=== PATIENT | female | born 1950 | race African-American/Black ===

== ENCOUNTER 2017-07-28 11:20 | Inpatient (IN) | payer MEDICARE, MEDICAID ==
[~2017-07-28] VITALS: Ht 160 cm; Wt 125.7 kg
[~2017-07-28 11:20] MED LIST: ALBUTEROL SULF8.5 GM INH; DOXYCYCLINE HY100 M2 PO; FUROSEMIDE40 MG ORAL; GABAPENTIN300 MG ORAL; HYDROCORTISON28.4 G2 TP; HYDROCORTISONE25 GM TP; JANUVIA50 MG ORAL; LEVAQUIN750 MG ORAL; LIPITOR20 MG ORAL; LOSARTAN POTASS50 MG ORAL; METFORMIN HCL1000 M1 ORAL; NORCO 10/3251 EA ORAL; NORCO 5-325 TA1 EACH ORAL; OXYCODONE HCL15 M1 ORAL; PERMETHRIN60 GM TOPIC; PLAVIX75 MG ORAL; PRILOSEC20 MG ORAL; SILDENAFIL20 MG ORAL
[2017-07-28 12:10] VITALS: BP 130/80
[2017-07-28] MEDS ORDERED: Metoprolol 5mg/5ml Inj IVP ONE ×2 (12:45→13:15)
[2017-07-28 13:06] LABS: BASOPHILS % (AUTO) 1.2 % (0.0-2.0); EOSINOPHILS % (AUTO) 1.3 % (0.0-3.0); HEMOGLOBIN 13.8 G/DL (12.0-16.0); LYMPHOCYTES % (AUTO) 17.5 % (20.0-45.0); MEAN CORPUSCULAR VOLUME 85 FL (80-99); MONOCYTES % (AUTO) 6.2 % (1.0-10.0); NEUTROPHILS % (AUTO) 73.8 % (45.0-75.0); PLATELET COUNT 293 K/UL (150-450); RED CELL DISTRIBUTION WIDTH 15.8 % (11.6-14.8); WHITE BLOOD COUNT 8.1 K/UL (4.8-10.8)
[2017-07-28 13:25] LABS: ANION GAP 9 mmol/L (5-15); BLOOD UREA NITROGEN 33 mg/dL (7-18); CALCIUM 8.8 MG/DL (8.5-10.1); CARBON DIOXIDE 30 MMOL/L (21-32); CHLORIDE 104 MMOL/L (98-107); CREATININE 1.2 MG/DL (0.55-1.30); POTASSIUM 3.9 MMOL/L (3.5-5.1); SODIUM 143 MMOL/L (136-145)
--- NOTE | 2017-07-28 13:25 | Diagnostic Imaging Report ---
Indication: Shortness of breath Technique: One view of the chest Comparison: 06/07/2015 Findings: The heart is enlarged. The lungs pleural spaces are clear. The heart appears larger than on the previous study. No other significant change Impression: Cardiomegaly. No definite acute process
[2017-07-28 13:38] LABS: ALANINE AMINOTRANSFERASE 27 U/L (12-78); ALBUMIN 3.1 G/DL (3.4-5.0); ALBUMIN/GLOBULIN RATIO 0.9 (1.0-2.7); ALKALINE PHOSPHATASE 166 U/L (46-116); ASPARTATE AMINO TRANSFERASE 33 U/L (15-37); BILIRUBIN,TOTAL 0.9 MG/DL (0.2-1.0); CKMB 4.5 NG/ML (0.0-3.6); CREATINE KINASE 244 U/L (26-308)
--- NOTE | 2017-07-28 14:13 | Emergency Room Report ---
History of Present Illness General Chief Complaint: Dyspnea/Respdistress Source: Patient Present Illness HPI 66-year-old female presents to ED with increasing shortness of breath and swelling 3 days. History of CHF. States she is taking her medications but they are not helping. Denies any chest pain. Denies fevers or chills. Denies cough. No other aggravating relieving factors. Denies any other associated symptoms Allergies: Coded Allergies: ASPIRIN (Verified Allergy, Intermediate, Hives, 01/06/13) PENICILLINS (Verified Allergy, Intermediate, Hives, 01/06/13) Patient History Past Medical History: DM, CHF, COPD Past Surgical History: none Pertinent Family History: none Social History: Denies: smoking, alcohol use, drug use Now: No Immunizations: UTD Reviewed Nursing Documentation: PMH: Agreed; PSxH: Agreed Nursing Documentation-PMH Hx Cardiac Problems: Yes - CHF Hx Hypertension: Yes - pulmonary htn Hx Pacemaker: No Hx Asthma: No Hx COPD: Yes Hx Diabetes: Yes Hx Cancer: No Hx Dialysis: No Hx Neurological Problems: Yes - neuropathy Hx Seizures: No Hx Peripheral Neuropathy: Yes Review of Systems All Other Systems: negative except mentioned in HPI Physical Exam Vital Signs Date Time Temp Pulse Resp B/P (MAP) Pulse Ox O2 Delivery O2 Flow Rate FiO2 07/28/17 11:38 97.6 114 16 130/80 98 Room Air 97.5 Sp02 EP Interpretation: reviewed, normal General Appearance: alert, GCS 15, non-toxic, obese Head: normocephalic, atraumatic Eyes: bilateral eye normal inspection, bilateral eye PERRL ENT: hearing grossly normal, normal pharynx, no angioedema, normal voice Neck: full range of motion, supple/symm/no masses Respiratory: chest non-tender, lungs clear, normal breath sounds, speaking full sentences Cardiovascular #1: no edema, tachycardia Cardiovascular #2: 2+ carotid (R), 2+ carotid (L), 2+ radial (R), 2+ radial (L) , 2+ dorsalis pedis (R), 2+ dorsalis pedis (L) Gastrointestinal: normal bowel sounds, non tender, soft, non-distended, no guarding, no rebound Rectal: deferred Genitourinary: normal inspection, no CVA tenderness Musculoskeletal: swelling - 2+ pitting edema b/l LEs Neurologic: alert, oriented x3, responsive, motor strength/tone normal, sensory intact, speech normal Psychiatric: judgement/insight normal, memory normal, mood/affect normal, no suicidal/homicidal ideation Reflexes: 3+ bicep (R), 3+ bicep (L), 3+ tricep (R), 3+ tricep (L), 3+ knee (R) , 3+ knee (L) Skin: normal color, no rash, warm/dry, well hydrated Lymphatic: no adenopathy Procedures Critical Care Time Critical Care Time i. I feel this is a highly complex case requiring extensive working including EKG/Rhythm strip, Xray/CT/US, Blood/urine lab work, repeat exams while in ED, and administration of strong opiates/narcotics for pain control, admission to hospital or close patient follow up. Total time: 30 min bedside evaluation and treatment excludes procedures (EKG). Reason for critical care: A. fib with RVR Possible complications: hypotension, hypertension, VT, shock, arrhythmias, metabolic acidosis, end organ damage, respiratory failure. Interventions: labs, ekg, cxr. lopressor x 2. lasix Course: patient presenting with sob. rhythm shows afib wtih RVR. given loressor x 2 with rate controlled.BNP elevated with pulmonary congestion . given lasix Consultations: nursing staff, EMS, family Performed by: Dr Wilson Tolerated well condition = serious j. because of unstable vital signs this patient had a condition that could potentially threaten life or limb. I feel this is a critical patient who required my full attention while patient was considered critical. Total Critical Care Time excluding procedures was greater than 35 minutes Medical Decision Making Diagnostic Impression: Primary Impression: CHF exacerbation Qualified Codes: I50.9 - Heart failure, unspecified Additional Impression: Atrial fibrillation with rapid ventricular response ER Course Hospital Course 66-year-old female presents ED complaining of shortness of breath, leg swelling Differential diagnoses include: VT/unstable angina, contusion, muscle strain, PTX, rib fracture Clinical course Patient placed on stretcher. on quality assurance monitor chassis. After initial history and physical I ordered labs, EKG, chest x-ray labs reviewed- no leukocytosis, hemoglobin/hematocrit stable, creatinine elevated, troponins 0.033, BNP > 1000 Chest x-ray- pulmonary congestion eKG - atrial fibrillation with RVR Given Lopressor 2 with rate controlled. Placed on oxygen. Lasix given. Case discussed with Dr. Benjamin and he agreed to accept the patient to his service for further care and support I. I feel this is a highly complex case requiring extensive working including EKG/Rhythm strip, Xray/CT/US, Blood/urine lab work, repeat exams while in ED, and administration of strong opiates/narcotics for pain control, admission to hospital or close patient follow up. Diagnosis - CHF exacerbation, atrial fibrillation with RVR admitted to telemetry in serious condition Labs Test 07/28/17 12:51 White Blood Count 8.1 K/UL (4.8-10.8) Red Blood Count 5.50 M/UL (4.20-5.40) Hemoglobin 13.8 G/DL (12.0-16.0) Hematocrit 47.0 % (37.0-47.0) Mean Corpuscular Volume 85 FL (80-99) Mean Corpuscular Hemoglobin 25.1 PG (27.0-31.0) Mean Corpuscular Hemoglobin Concent 29.4 G/DL (32.0-36.0) Red Cell Distribution Width 15.8 % (11.6-14.8) Platelet Count 293 K/UL (150-450) Mean Platelet Volume 7.3 FL (6.5-10.1) Neutrophils (%) (Auto) 73.8 % (45.0-75.0) Lymphocytes (%) (Auto) 17.5 % (20.0-45.0) Monocytes (%) (Auto) 6.2 % (1.0-10.0) Eosinophils (%) (Auto) 1.3 % (0.0-3.0) Basophils (%) (Auto) 1.2 % (0.0-2.0) Sodium Level 143 MMOL/L (136-145) Potassium Level 3.9 MMOL/L (3.5-5.1) Chloride Level 104 MMOL/L (98-107) Carbon Dioxide Level 30 MMOL/L (21-32) Anion Gap 9 mmol/L (5-15) Blood Urea Nitrogen 33 mg/dL (7-18) Creatinine 1.2 MG/DL (0.55-1.30) Estimat Glomerular Filtration Rate 54.9 mL/min (>60) Glucose Level 196 MG/DL (74-106) Calcium Level 8.8 MG/DL (8.5-10.1) Total Bilirubin 0.9 MG/DL (0.2-1.0) Aspartate Amino Transf (AST/SGOT) 33 U/L (15-37) Alanine Aminotransferase (ALT/SGPT) 27 U/L (12-78) Alkaline Phosphatase 166 U/L (46-116) Total Creatine Kinase 244 U/L (26-308) Creatine Kinase MB 4.5 NG/ML (0.0-3.6) Creatine Kinase MB Relative Index 1.8 Troponin I 0.033 ng/mL (0.000-0.056) Pro-B-Type Natriuretic Peptide 1065 pg/mL (0-125) Total Protein 6.7 G/DL (6.4-8.2) Albumin 3.1 G/DL (3.4-5.0) Globulin 3.6 g/dL Albumin/Globulin Ratio 0.9 (1.0-2.7) EKG Diagnostic Results Rate: tachycardiac Rhythm: other - afib with RVR ST Segments: no acute changes ASA given to the pt in ED: No - allergy to asa Rhythm Strip Diag. Results EP Interpretation: yes Rhythm: no PVC's, no ectopy Chest X-Ray Diagnostic Results Chest X-Ray Diagnostic Results : Chest X-Ray Ordered: Yes # of Views/Limited/Complete: 1 View Indication: Shortness of Breath EP Interpretation: Yes Interpretation: no pneumothorax, other - cardiomegaly. bilateral interstitial congestion Impression: Other - chf Electronically Signed by: Electronically signed by Cortez Wilson MD Last Vital Signs Date Time Temp Pulse Resp B/P (MAP) Pulse Ox O2 Delivery O2 Flow Rate FiO2 07/28/17 13:45 114 137/72 07/28/17 11:38 97.6 16 98 Room Air 97.5 Status: improved Disposition: ADMITTED INPATIENT Condition: Serious Referrals: NON PHYSICIAN (PCP) Cortez Wilson MD Jul 28, 2017 14:13
[2017-07-28 14:25] VITALS: BP 146/87
[2017-07-28] MEDS ORDERED: Miralax 17gm pkt ORAL PRN (15:45)
[2017-07-28] MEDS ORDERED: Albuterol/Ipratropium 3ml neb HHN PRN (15:45)
[2017-07-28 16:15] VITALS: BP 136/88
[2017-07-28 16:29] LABS: APPEARANCE,URINE CLEAR; BILIRUBIN, URINE NEGATIVE (NEGATIVE); GLUCOSE, URINE (UA) NEGATIVE (NEGATIVE); KETONES,URINE NEGATIVE (NEGATIVE); LEUKOCYTE ESTERASE ,URINE 2+ (NEGATIVE); NITRITE,URINE NEGATIVE (NEGATIVE); PH,URINE 5 (4.5-8.0); PROTEIN,URINE 3+ (NEGATIVE); UROBILINOGEN,URINE NORMAL MG/DL (0.0-1.0)
[2017-07-28] MEDS ORDERED: NovoLOG Insulin Flexpen SUBQ SCH (16:30)
[2017-07-28 16:35] LABS: COLOR,URINE YELLOW
--- NOTE | 2017-07-28 17:38 | Cardiology Report ---
APPROVED REPORT EXAM: Two-dimensional and M-mode echocardiogram with Doppler and color Doppler. INDICATION Left Ventricular Function M-Mode DIMENSIONS IVSd1.4 (0.7-1.1cm)Left Atrium (MM)3.9 (1.6-4.0cm) LVDd3.8 (3.5-5.6cm)Aortic Root2.2 (2.0-3.7cm) PWd1.6 (0.7-1.1cm)Aortic Cusp Exc.1.9 (1.5-2.0cm) LVDs3.7 (2.5-4.0cm) PWs1.5 cm Global left ventricular hypokinesis. Diastolic flattening of VS suggestive of RV volume overload Normal left ventricular chamber size. Left ventricular ejection fraction estimated to be 40%. Mild left ventricular hypertrophy. No evidence of pericardial effusion. Left atrial chamber size is within normal limits. Severe right atrial and right ventricular enlargement. Mild focal aortic valve sclerosis with adequate cusp excursion. Thickened mitral valve leaflets with normal excursion. Mild mitral annulus and aortic root calcification. Normal pulmonic valve structure. Normal tricuspid valve structure. IVC dilated at 3.2 cm without physiological collapse, estimated RAP is 20 mmHg. Atrial setpum shifted to the left due to increased RA pressure A color flow and spectral Doppler study was performed and revealed: Mild aortic insufficiency. Mild mitral regurgitation. Mitral inflow velocities indicates possible pseudo normalization pattern implying significant left ventricular diastolic dysfunction (Grade II). Severe tricuspid regurgitation. Tricuspid systolic velocities suggests peak right ventricular systolic pressure of 62-67 mmHg, consistent with severe pulmonary hypertension. Trace pulmonic regurgitation present.
--- NOTE | 2017-07-28 19:30 | History and Physical Report ---
DATE OF ADMISSION: 07/28/2017 TIME: 3 p.m. CONSULTANTS: 1. Jsutice Erickson M.D. 2. Jesús Farrell M.D. CHIEF COMPLAINT: CHF, short of breath, atrial fibrillation, edema, elevated troponin. BRIEF HISTORY: This is a 66-year-old female, who lives at home, presented with above-mentioned diagnoses. Currently in the ER, slight short of breath, O2 NC in place, awaiting admission. PAST MEDICAL HISTORY: CHF, short of breath, atrial fibrillation, edema, elevated troponin, obesity, hypertension, and diabetes. PAST SURGICAL HISTORY: None. MEDICATIONS: Lipitor, Plavix, Januvia, Lasix, heparin, Neurontin, NovoLog, [place], dextrose, Restoril, Zofran, and Tylenol. ALLERGIES: Penicillin and aspirin. SOCIAL HISTORY: No smoking. No alcohol. No intravenous drug use. FAMILY HISTORY: Noncontributory. REVIEW OF SYSTEMS: No chest pain. Slight short of breath. No nausea, vomiting, or diarrhea. PHYSICAL EXAMINATION: GENERAL: Lethargic in bed, oriented x2, in no acute distress. VITAL SIGNS: Temperature 97 degrees, pulse 114, respirations 16, and blood pressure 137/72. CARDIOVASCULAR: No murmur. LUNGS: Poor air exchange. ABDOMEN: Bowel sounds distant. EXTREMITIES: No cyanosis or clubbing. There is 1+ edema. NEUROLOGIC: The patient moves all extremities, but slightly weak. LABORATORY AND DIAGNOSTIC DATA: CBC is normal. BMP show BUN 33 and glucose 196, otherwise BMP is normal. . Troponin elevated at 0.033. BNP is 1065. Albumin 3.1. ASSESSMENT: 1. Shortness of breath. 2. CHF. 3. Atrial fibrillation. 4. Edema. 5. Elevated troponin. 6. Obesity. 7. Hypertension. 8. Diabetes. PLAN: O2 and pulmonary treatment. OT/PT. Dietary evaluation. Pain control. Blood sugar and blood pressure control. Resume home medications. Diuresis per Cardiology and Pulmonary followup. We will continue to follow this patient medically. Pedro Benjamin D.O. DR: ZO JOB#: [id number] CC:
[2017-07-28 20:30] VITALS: BP 132/78
[2017-07-28] MEDS ORDERED: Atorvastatin 20mg tab ORAL SCH (21:00)
[2017-07-28] MEDS: NovoLOG Insulin Flexpen SUBQ SCH (21:00)
[2017-07-28] MEDS: Heparin 5000 units/ml inj SUBQ SCH (22:09)
[2017-07-28] MEDS: HYDROcodone/Acetamin 10/325 tab ORAL PRN (22:22)
--- NOTE | 2017-07-28 23:01 | Cardiology Progress Note ---
Assessment/Plan Assessment/Plan The patient is seen and examined, full consult note will be dictated shortly. Objective Last 24 Hour Vital Signs Date Time Temp Pulse Resp B/P (MAP) Pulse Ox O2 Delivery O2 Flow Rate FiO2 07/28/17 20:36 148/92 07/28/17 16:15 97.5 16 136/88 98 Room Air 97.5 07/28/17 14:25 97.5 16 146/87 98 Room Air 97.5 07/28/17 13:45 114 137/72 07/28/17 12:39 116 133/102 07/28/17 12:10 114 16 Room Air 07/28/17 12:10 97.5 16 130/80 98 Room Air 97.5 07/28/17 11:38 97.6 114 16 130/80 98 Room Air 97.5 Laboratory Tests Test 07/28/17 12:51 07/28/17 16:09 White Blood Count 8.1 K/UL (4.8-10.8) Red Blood Count 5.50 M/UL (4.20-5.40) H Hemoglobin 13.8 G/DL (12.0-16.0) Hematocrit 47.0 % (37.0-47.0) Mean Corpuscular Volume 85 FL (80-99) Mean Corpuscular Hemoglobin 25.1 PG (27.0-31.0) L Mean Corpuscular Hemoglobin Concent 29.4 G/DL (32.0-36.0) L Red Cell Distribution Width 15.8 % (11.6-14.8) H Platelet Count 293 K/UL (150-450) Mean Platelet Volume 7.3 FL (6.5-10.1) Neutrophils (%) (Auto) 73.8 % (45.0-75.0) Lymphocytes (%) (Auto) 17.5 % (20.0-45.0) L Monocytes (%) (Auto) 6.2 % (1.0-10.0) Eosinophils (%) (Auto) 1.3 % (0.0-3.0) Basophils (%) (Auto) 1.2 % (0.0-2.0) Sodium Level 143 MMOL/L (136-145) Potassium Level 3.9 MMOL/L (3.5-5.1) Chloride Level 104 MMOL/L (98-107) Carbon Dioxide Level 30 MMOL/L (21-32) Anion Gap 9 mmol/L (5-15) Blood Urea Nitrogen 33 mg/dL (7-18) H Creatinine 1.2 MG/DL (0.55-1.30) Estimat Glomerular Filtration Rate 54.9 mL/min (>60) Glucose Level 196 MG/DL (74-106) H Calcium Level 8.8 MG/DL (8.5-10.1) Total Bilirubin 0.9 MG/DL (0.2-1.0) Aspartate Amino Transf (AST/SGOT) 33 U/L (15-37) Alanine Aminotransferase (ALT/SGPT) 27 U/L (12-78) Alkaline Phosphatase 166 U/L (46-116) H Total Creatine Kinase 244 U/L (26-308) Creatine Kinase MB 4.5 NG/ML (0.0-3.6) H Creatine Kinase MB Relative Index 1.8 Troponin I 0.033 ng/mL (0.000-0.056) Pro-B-Type Natriuretic Peptide 1065 pg/mL (0-125) H Total Protein 6.7 G/DL (6.4-8.2) Albumin 3.1 G/DL (3.4-5.0) L Globulin 3.6 g/dL Albumin/Globulin Ratio 0.9 (1.0-2.7) L Urine Color Yellow Urine Appearance Clear Urine pH 5 (4.5-8.0) Urine Specific [place] 1.015 (1.005-1.035) Urine Protein 3+ (NEGATIVE) H Urine Glucose (UA) Negative (NEGATIVE) Urine Ketones Negative (NEGATIVE) Urine Occult Blood 5+ (NEGATIVE) H Urine Nitrite Negative (NEGATIVE) Urine Bilirubin Negative (NEGATIVE) Urine Urobilinogen Normal MG/DL (0.0-1.0) Urine Leukocyte Esterase 2+ (NEGATIVE) H Urine RBC 5-10 /HPF (0 - 2) H Urine WBC 2-4 /HPF (0 - 2) Urine Squamous Epithelial Cells Few /LPF (NONE/OCC) Urine Amorphous Sediment Few /LPF (NONE) H Urine Bacteria Few /HPF (NONE) NBA HERRERA Jul 28, 2017 23:01
[2017-07-28] MEDS: Eliquis 2.5mg tablet ORAL SCH (23:45)
[2017-07-29] VITALS: BP 133/93
[2017-07-29] MEDS ORDERED: Digoxin 0.5mg/2ml Inj IVP ONE
--- NOTE | 2017-07-29 01:16 | Consultation ---
DATE OF CONSULTATION: 07/28/2017 Cardiology consultation CONSULTING PHYSICIAN: Justice Erickson M.D. REFERRING PHYSICIAN: Pedro Benjamin D.O. REASON FOR CONSULTATION: Management of shortness of breath. HISTORY OF PRESENT ILLNESS: The patient is a very unfortunate 66-year-old female who presents to the hospital with increasing shortness of breath, swelling of the lower extremity for about three days. Her cardiac history is significant for history of right heart failure with anasarca, apparently has not seen her cutter tender for quite a while due to her immobility and morbid obesity. She has a history of heart failure with preserved ejection fraction as well. At the time of arrival to the hospital, a 12-lead electrocardiogram was significant for atrial flutter with rapid ventricular response. In previous admission to this hospital in May 2015, she was in normal sinus rhythm. At the time of arrival to the hospital, blood pressure was 130/80, heart rate was 114. Chest x-ray showed cardiomegaly with no significant pulmonary edema or congestive heart failure. She was admitted to telemetry for further evaluation and management. Cardiology consultation was made at request of Dr. Benjamin for assessment of this condition. PAST MEDICAL HISTORY: Significant for 1. History of right heart failure with anasarca. 2. History of severe pulmonary hypertension. 3. History of diabetes mellitus. 4. History of acute heart failure with preserved EF. 5. History of COPD. 6. History of polysubstance abuse in the past. 7. History of neuropathy. 8. History of CVA. PAST SURGICAL HISTORY: Some gynecological surgery done at [facility], pelvic mass. ALLERGIES: Aspirin and penicillin. SOCIAL HISTORY: Prior history of drug use. Recently quit smoking cigarettes. Denies any alcohol use. FAMILY HISTORY: No premature coronary artery disease in first-degree relatives. MEDICATIONS: List of medications at home including Lipitor 20 mg p.o. daily, clopidogrel 75 mg p.o. daily, furosemide 40 mg p.o. twice daily, gabapentin 300 mg twice daily, hydrocodone-acetaminophen 10/325 one tablet q.4 h. p.r.n. pain, losartan 50 mg p.o. daily, metformin 1000 mg p.o. twice daily, Prilosec 20 mg p.o. daily, , Januvia 50 mg p.o. daily. REVIEW OF SYSTEMS: HEENT: Denies any headache, diplopia, or blurred vision. CONSTITUTIONAL: Complains of generalized weakness, immobilization due to morbid obesity but no fever, chills, night sweats. CARDIOVASCULAR: Has four pillow orthopnea, paroxysmal nocturnal dyspnea, bilateral lower extremity edema. Denies any palpitations or syncope, chest pain, but she has shortness of breath with ordinary activities. PULMONARY: Denies any cough, wheezing, or hemoptysis. GASTROINTESTINAL: Complaining of abdominal pain but no nausea, vomiting, diarrhea, constipation. GENITOURINARY: Denies any hematuria, dysuria, incontinence. NEUROLOGY: Denies any motor dysfunction, sensory deficit, or altered speech. PHYSICAL EXAMINATION: VITAL SIGNS: Blood pressure at time of arrival to the hospital was 130/80, pulse of 114, respirations 16, temperature 97.6 degrees Fahrenheit, and O2 saturation 98% on room air. GENERAL: The patient is a very unfortunate 66-year-old female, in [id number] respiratory distress. HEENT: Atraumatic and normocephalic. Anicteric. Pupils are equal, round, and reactive to light and accommodation. Extraocular muscles intact. NECK: JVP is elevated at about 15 cm. No carotid bruits. Carotid upstrokes 2+ bilaterally. CARDIOVASCULAR: Normal S1 and S2. Irregularly irregular rhythm. Tachycardic. Positive S3 and S4 gallop. LUNGS: Diminished breath sounds in both bases. ABDOMEN: Distended and nontender. Positive bowel sounds. No hepatosplenomegaly EXTREMITIES: There is 3 to 4+ bilateral edema. LABORATORY FINDINGS: WBC 8.1, hemoglobin 13.8, hematocrit 47.0, platelet count 293. Sodium 143, potassium 3.9, chloride 104, bicarbonate 30, BUN of 33, creatinine 1.2, glucose 196. Calcium is 8.8. Troponin I is 0.033. ProBNP was 1065. A 2D echocardiography was reviewed and essentially shows small left ventricular size however there is dyskinetic septal wall movements with hypokinesia of the rest of left ventricular regional wall, LVEF approximately 30%, mild left ventricular hypertrophy. There is dilated right ventricle with moderate to severely decreased right ventricular function, also evidence of right ventricular pressure and volume overload. Torrential severe tricuspid regurgitation, right ventricular systolic pressure measured at 18 mmHg given right atrial pressure of approximately 20 mmHg, severe right atrial enlargement, mild aortic regurgitation, mild mitral regurgitation, diastolic data could not be assessed in view of underlying atrial flutter. Chest x-ray showed cardiomegaly with no pulmonary edema. A 12-lead electrocardiogram was significant for atrial flutter with RVR rate of 115, single VPC. ASSESSMENT AND PLAN: The patient is a very unfortunate 66-year-old female, seen in Cardiology consultation request of Dr. Benjamin. 1. Predominantly right heart failure with associated anasarca. The patient requires aggressive diuresis with combination of Lasix and metolazone. We will continue to monitor the creatinine is a daily basis. Baseline creatinine 1.2. The reason for right heart failure most likely left heart failure although obstructive from obesity, hypoventilation syndrome also may responsible green party for this condition. The patient and has refused right heart catheterization in the past. 2. Acute on systolic and diastolic congestive heart failure. We will continue with diuretics. The patient requires left heart catheterization to rule out coronary artery disease as a potential etiology. 3. New onset atrial flutter. We will like to continue with rate control. It is not clear how long the patient has been in atrial flutter. She may benefit from a RAMIRO and cardioversion and sought of antiarrhythmic. 4. History of diabetes mellitus. 5. History of hypertension. 6. History of chronic kidney disease. 7. History of COPD. I would like to thank, Dr. Benjamin, for the courtesy of this consultation. Justice Erickson M.D. DR: Natalia JOB#: [id number] CC:
[2017-07-29 04:00] VITALS: BP 131/94
[2017-07-29] MEDS: NovoLOG Insulin Flexpen SUBQ SCH ×4 (06:30→21:00)
[2017-07-29 07:53] LABS: BASOPHILS % (AUTO) 2.3 % (0.0-2.0); EOSINOPHILS % (AUTO) 1.3 % (0.0-3.0); HEMOGLOBIN 13.6 G/DL (12.0-16.0); LYMPHOCYTES % (AUTO) 23.9 % (20.0-45.0); MEAN CORPUSCULAR VOLUME 84 FL (80-99); MONOCYTES % (AUTO) 8.1 % (1.0-10.0); NEUTROPHILS % (AUTO) 64.4 % (45.0-75.0); PLATELET COUNT 272 K/UL (150-450); RED BLOOD COUNT 5.47 M/UL (4.20-5.40); WHITE BLOOD COUNT 8.5 K/UL (4.8-10.8)
[2017-07-29 08:00] VITALS: BP 135/95
[2017-07-29] MEDS: Eliquis 2.5mg tablet ORAL SCH ×2 (09:07→18:37)
[2017-07-29] MEDS: Heparin 5000 units/ml inj SUBQ SCH ×2 (09:13→21:05)
[2017-07-29 09:14] LABS: ANION GAP 7 mmol/L (5-15); BLOOD UREA NITROGEN 41 mg/dL (7-18); CALCIUM 9.2 MG/DL (8.5-10.1); CARBON DIOXIDE 31 MMOL/L (21-32); CHLORIDE 105 MMOL/L (98-107); CREATININE 1.5 MG/DL (0.55-1.30); POTASSIUM 4.5 MMOL/L (3.5-5.1); SODIUM 143 MMOL/L (136-145)
[2017-07-29] MEDS: sitaGLIPtin 50mg tab ORAL SCH (09:26)
[2017-07-29] MEDS: HYDROcodone/Acetamin 10/325 tab ORAL PRN ×2 (09:26→18:45)
--- NOTE | 2017-07-29 11:01 | Diagnostic Imaging Report ---
Indication: Dyspnea Comparison: 07/28/2017 A single view chest radiograph was obtained. Findings: The heart is enlarged. There is mild interstitial edema and prominent hilar vessels. Bones are slightly osteopenic. IMPRESSION: Mild CHF
[2017-07-29 12:00] VITALS: BP 129/99
--- NOTE | 2017-07-29 13:24 | Consultation ---
History of Present Illness General Date patient seen: Jul 28, 2017 Chief Complaint: Dyspnea/Respdistress Referring physician: Dr. Benjamin Reason for Consultation: dyspnea Present Illness HPI 66-year-old female with hx of cardiomyopathy, CHF, DM, morbid obesity, noncompliant with meds presented to to ED with increasing shortness of breath and swelling of legs 3 days. Denies any chest pain. Denies fevers or chills. Denies cough. No other aggravating relieving factors. Initial evaluation revealed that she is in atrial fib/ flutter with rapid vent response and pulmonary edema. She used to smoke for years until 3 years ago. Allergies: Coded Allergies: ASPIRIN (Verified Allergy, Intermediate, Hives, 01/06/13) PENICILLINS (Verified Allergy, Intermediate, Hives, 01/06/13) Medication History Scheduled Atorvastatin Calcium* (Lipitor*), 20 MG ORAL DAILY, (Reported) Furosemide* (Lasix*), 40 MG ORAL TWICE A DAY Gabapentin* (Gabapentin*), 300 MG ORAL BID, (Reported) Hydrocortisone/Aloe Vera (Hydrocortisone Plus 1% Cream), 28.4 GM TP TID, ( Reported) Losartan Potassium* (Losartan Potassium*), 50 MG ORAL DAILY, (Reported) Metformin Hcl* (Metformin Hcl*), 1,000 MG ORAL BID, (Reported) Omeprazole (Prilosec), 20 MG ORAL DAILY, (Reported) Sildenafil Citrate (Sildenafil), 20 MG ORAL TID, (Reported) Sitagliptin (Januvia), 50 MG ORAL DAILY, (Reported) Scheduled PRN Hydrocodone/Acetaminophen (Hydrocodon-Acetaminophn 10-325), 1 TAB ORAL Q4H PRN for For Pain, (Reported) Miscellaneous Medications Hc/Mineral Oil/Petrolat,Wht 1% (Hydrocortisone 1% Absorbase), 25 GM TP, ( Reported) Hydrocortisone/Aloe Vera (Hydrocortisone Plus 1% Cream), 28.4 GM TP, (Reported) Hydrocortisone/Aloe Vera (Hydrocortisone Plus 1% Cream), 28.4 GM TP, (Reported) Discontinued Medications Clopidogrel Bisulfate* (Plavix*), 75 MG ORAL DAILY, (Reported) Discontinued Reason: MD discontinued med Patient History Healthcare decision maker Resuscitation status Full Code Advanced Directive on File No Past Medical/Surgical History Past Medical/Surgical History: (1) DM (diabetes mellitus) (2) HTN (hypertension) (3) Pulmonary hypertension Review of Systems Respiratory: Reports: cough, orthopnea Physical Exam General Appearance: obese Lines, tubes and drains: peripheral HEENT: normocephalic, atraumatic Neck: non-tender, normal alignment Respiratory/Chest: crackles/rales Breasts: no masses Cardiovascular/Chest: normal peripheral pulses, normal rate Abdomen: normal bowel sounds, non tender Genitourinary/Rectal: normal genital exam Extremities: normal range of motion, non-tender, moderate edema Skin Exam: normal pigmentation 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 Last 24 Hour Vital Signs Date Time Temp Pulse Resp B/P (MAP) Pulse Ox O2 Delivery O2 Flow Rate FiO2 07/29/17 12:00 97.2 111 18 129/99 97 Nasal Cannula 2.0 97.2 07/29/17 10:25 97.2 07/29/17 09:26 97.2 07/29/17 08:00 112 07/29/17 08:00 97.2 113 19 135/95 99 Nasal Cannula 2.0 97.2 07/29/17 04:00 110 07/29/17 04:00 97.7 111 20 131/94 95 Nasal Cannula 2.0 97.7 07/29/17 00:22 113 07/29/17 00:00 114 07/29/17 00:00 97.5 114 18 133/93 96 Nasal Cannula 2.0 97.5 07/28/17 20:36 148/92 07/28/17 20:30 97.0 115 23 132/78 97 Nasal Cannula 2.0 97.0 07/28/17 16:15 97.5 16 136/88 98 Room Air 97.5 07/28/17 14:25 97.5 16 146/87 98 Room Air 97.5 07/28/17 13:45 114 137/72 Intake and Output 07/28/17 07/29/17 19:00 07:00 Intake Total 0 ml 300 ml Balance 0 ml 300 ml Intake Oral 0 ml 300 ml Laboratory Tests Test 07/28/17 16:09 07/29/17 07:30 Urine Color Yellow Urine Appearance Clear Urine pH 5 (4.5-8.0) Urine Specific [place] 1.015 (1.005-1.035) Urine Protein 3+ (NEGATIVE) H Urine Glucose (UA) Negative (NEGATIVE) Urine Ketones Negative (NEGATIVE) Urine Occult Blood 5+ (NEGATIVE) H Urine Nitrite Negative (NEGATIVE) Urine Bilirubin Negative (NEGATIVE) Urine Urobilinogen Normal MG/DL (0.0-1.0) Urine Leukocyte Esterase 2+ (NEGATIVE) H Urine RBC 5-10 /HPF (0 - 2) H Urine WBC 2-4 /HPF (0 - 2) Urine Squamous Epithelial Cells Few /LPF (NONE/OCC) Urine Amorphous Sediment Few /LPF (NONE) H Urine Bacteria Few /HPF (NONE) White Blood Count 8.5 K/UL (4.8-10.8) Red Blood Count 5.47 M/UL (4.20-5.40) H Hemoglobin 13.6 G/DL (12.0-16.0) Hematocrit 46.0 % (37.0-47.0) Mean Corpuscular Volume 84 FL (80-99) Mean Corpuscular Hemoglobin 24.9 PG (27.0-31.0) L Mean Corpuscular Hemoglobin Concent 29.6 G/DL (32.0-36.0) L Red Cell Distribution Width 16.0 % (11.6-14.8) H Platelet Count 272 K/UL (150-450) Mean Platelet Volume 7.1 FL (6.5-10.1) Neutrophils (%) (Auto) 64.4 % (45.0-75.0) Lymphocytes (%) (Auto) 23.9 % (20.0-45.0) Monocytes (%) (Auto) 8.1 % (1.0-10.0) Eosinophils (%) (Auto) 1.3 % (0.0-3.0) Basophils (%) (Auto) 2.3 % (0.0-2.0) H Sodium Level 143 MMOL/L (136-145) Potassium Level 4.5 MMOL/L (3.5-5.1) Chloride Level 105 MMOL/L (98-107) Carbon Dioxide Level 31 MMOL/L (21-32) Anion Gap 7 mmol/L (5-15) Blood Urea Nitrogen 41 mg/dL (7-18) H Creatinine 1.5 MG/DL (0.55-1.30) H Estimat Glomerular Filtration Rate 42.3 mL/min (>60) Glucose Level 91 MG/DL (74-106) # Calcium Level 9.2 MG/DL (8.5-10.1) Troponin I 0.082 ng/mL (0.000-0.056) Height (Feet): 5 Height (Inches): 3.00 Weight (Pounds): 319 Medications Current Medications Medications (Trade) Dose Ordered Sig/Toya Route PRN Reason Start Time Stop Time Status Last Admin Dose Admin Acetaminophen (Tylenol) 650 mg Q4H PRN ORAL Fever 07/28/17 15:45 08/27/17 15:44 Acetaminophen/ Hydrocodone Bitart ([place] ) 1 tab Q4H PRN ORAL Moderate to Severe Pain 07/28/17 15:45 08/04/17 15:44 07/29/17 09:26 Albuterol/ Ipratropium (Albuterol/ Ipratropium) 3 ml Q4H PRN HHN Shortness of Breath 07/28/17 15:45 08/02/17 15:44 Apixaban (Eliquis) 5 mg BID ORAL 07/28/17 23:45 08/27/17 23:44 07/29/17 09:07 Atorvastatin Calcium (Lipitor) 40 mg QHS ORAL 07/29/17 21:00 08/28/17 20:59 Dextrose (Dextrose 50%) 25 ml STAT PRN IV HYPOGLYCEMIA 07/29/17 08:30 08/28/17 08:29 Dextrose (Dextrose 50%) 50 ml STAT PRN IV Hypoglycemia 07/29/17 08:30 08/27/17 15:44 Furosemide (Lasix) 40 mg EVERY 8 HOURS IV 07/28/17 22:00 08/27/17 21:59 07/29/17 06:20 Gabapentin (Neurontin) 300 mg BID ORAL 07/28/17 18:30 08/27/17 18:29 07/29/17 09:07 Heparin Sodium (Porcine) (Heparin 5000 units/ml) 5,000 units EVERY 12 HOURS SUBQ 07/28/17 21:00 08/27/17 20:59 07/29/17 09:13 Insulin Aspart (NovoLOG) BEFORE MEALS AND HS SUBQ 07/28/17 21:00 08/27/17 20:59 Metolazone (Zaroxolyn) 5 mg DAILY ORAL 4/4/18 09:00 08/28/17 08:59 07/29/17 09:07 Metoprolol Tartrate (Lopressor) 5 mg Q5MIN X 3 IVP 07/29/17 00:00 08/28/17 00:00 Ondansetron HCl (Zofran) 4 mg Q6H PRN IVP Nausea & Vomiting 07/28/17 15:45 08/27/17 15:44 Polyethylene Glycol (Miralax) 17 gm DAILYPRN PRN ORAL Constipation 07/28/17 15:45 08/27/17 15:44 07/29/17 09:06 Sitagliptin Phosphate (Januvia) 50 mg DAILY ORAL 07/29/17 09:00 08/28/17 08:59 07/29/17 09:26 Temazepam (Restoril) 15 mg HSPRN PRN ORAL Insomnia 07/28/17 15:45 08/04/17 15:44 Assessment/Plan Problem List: (1) CHF exacerbation ICD Codes: I50.9 - Heart failure, unspecified SNOMED: 92954765 Qualifiers: Qualified Codes: I50.9 - Heart failure, unspecified (2) Atrial fibrillation with rapid ventricular response ICD Codes: I48.91 - Unspecified atrial fibrillation SNOMED: 265936536321999 (3) Pulmonary hypertension ICD Codes: I27.2 - Other secondary pulmonary hypertension SNOMED: 86599919 (4) HTN (hypertension) ICD Codes: I10 - HTN (hypertension) SNOMED: 91022294 (5) DM (diabetes mellitus) ICD Codes: E11.9 - DM (diabetes mellitus) SNOMED: 64319817 Assessment/Plan respiratory treatment IV lasix titrate fio2 to sat of 92% sliding scale diabetic diet echo, troponin dvt prophylaxis.. Jesús Farrell MD Jul 29, 2017 13:24
--- NOTE | 2017-07-29 13:26 | Pulmonology Progress Note ---
Assessment/Plan Problems: (1) CHF exacerbation (2) Atrial fibrillation with rapid ventricular response (3) Pulmonary hypertension (4) HTN (hypertension) (5) DM (diabetes mellitus) Assessment/Plan continue diuretics repeat cxr reviewed, pulmonary edema improved heart rate controlled sliding scale diabetic diet. anticoagulation by cardiology keep in teli. pain management symptomatic treatment. Subjective ROS Limited/Unobtainable: No Constitutional: Reports: no symptoms HEENT: Repors: no symptoms Respiratory: Reports: no symptoms Allergies: Coded Allergies: ASPIRIN (Verified Allergy, Intermediate, Hives, 01/06/13) PENICILLINS (Verified Allergy, Intermediate, Hives, 01/06/13) Objective Last 24 Hour Vital Signs Date Time Temp Pulse Resp B/P (MAP) Pulse Ox O2 Delivery O2 Flow Rate FiO2 07/29/17 12:00 97.2 111 18 129/99 97 Nasal Cannula 2.0 97.2 07/29/17 10:25 97.2 07/29/17 09:26 97.2 07/29/17 08:00 112 07/29/17 08:00 97.2 113 19 135/95 99 Nasal Cannula 2.0 97.2 07/29/17 04:00 110 07/29/17 04:00 97.7 111 20 131/94 95 Nasal Cannula 2.0 97.7 07/29/17 00:22 113 07/29/17 00:00 114 07/29/17 00:00 97.5 114 18 133/93 96 Nasal Cannula 2.0 97.5 07/28/17 20:36 148/92 07/28/17 20:30 97.0 115 23 132/78 97 Nasal Cannula 2.0 97.0 07/28/17 16:15 97.5 16 136/88 98 Room Air 97.5 07/28/17 14:25 97.5 16 146/87 98 Room Air 97.5 07/28/17 13:45 114 137/72 Intake and Output 07/28/17 07/29/17 19:00 07:00 Intake Total 0 ml 300 ml Balance 0 ml 300 ml Intake Oral 0 ml 300 ml Objective General Appearance: obese Lines, tubes and drains: peripheral HEENT: normocephalic, atraumatic Neck: non-tender, normal alignment Respiratory/Chest: crackles/rales Breasts: no masses Cardiovascular/Chest: normal peripheral pulses, normal rate Abdomen: normal bowel sounds, non tender Genitourinary/Rectal: normal genital exam Extremities: normal range of motion, non-tender, moderate edema Skin Exam: normal pigmentation 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 Laboratory Tests 07/28/17 16:09: Urine Color Yellow, Urine Appearance Clear, Urine pH 5, Urine Specific [place] 1.015, Urine Protein 3+H, Urine Glucose (UA) Negative, Urine Ketones Negative, Urine Occult Blood 5+H, Urine Nitrite Negative, Urine Bilirubin Negative, Urine Urobilinogen Normal, Urine Leukocyte Esterase 2+H, Urine RBC 5-10H, Urine WBC 2- 4, Urine Squamous Epithelial Cells Few, Urine Amorphous Sediment FewH, Urine Bacteria Few 07/29/17 07:30: White Blood Count 8.5, Red Blood Count 5.47H, Hemoglobin 13.6, Hematocrit 46.0, Mean Corpuscular Volume 84, Mean Corpuscular Hemoglobin 24.9L, Mean Corpuscular Hemoglobin Concent 29.6L, Red Cell Distribution Width 16.0H, Platelet Count 272 , Mean Platelet Volume 7.1, Neutrophils (%) (Auto) 64.4, Lymphocytes (%) (Auto) 23.9, Monocytes (%) (Auto) 8.1, Eosinophils (%) (Auto) 1.3, Basophils (%) (Auto ) 2.3H, Sodium Level 143, Potassium Level 4.5, Chloride Level 105, Carbon Dioxide Level 31, Anion Gap 7, Blood Urea Nitrogen 41H, Creatinine 1.5H, Estimat Glomerular Filtration Rate 42.3, Glucose Level 91#, Calcium Level 9.2, Troponin I 0.082H Current Medications Medications (Trade) Dose Ordered Sig/Toya Route PRN Reason Start Time Stop Time Status Last Admin Dose Admin Acetaminophen (Tylenol) 650 mg Q4H PRN ORAL Fever 07/28/17 15:45 08/27/17 15:44 Acetaminophen/ Hydrocodone Bitart ([place] ) 1 tab Q4H PRN ORAL Moderate to Severe Pain 07/28/17 15:45 08/04/17 15:44 07/29/17 09:26 Albuterol/ Ipratropium (Albuterol/ Ipratropium) 3 ml Q4H PRN HHN Shortness of Breath 07/28/17 15:45 08/02/17 15:44 Apixaban (Eliquis) 5 mg BID ORAL 07/28/17 23:45 08/27/17 23:44 07/29/17 09:07 Atorvastatin Calcium (Lipitor) 40 mg QHS ORAL 07/29/17 21:00 08/28/17 20:59 Dextrose (Dextrose 50%) 25 ml STAT PRN IV HYPOGLYCEMIA 07/29/17 08:30 08/28/17 08:29 Dextrose (Dextrose 50%) 50 ml STAT PRN IV Hypoglycemia 07/29/17 08:30 08/27/17 15:44 Furosemide (Lasix) 40 mg EVERY 8 HOURS IV 07/28/17 22:00 08/27/17 21:59 07/29/17 06:20 Gabapentin (Neurontin) 300 mg BID ORAL 07/28/17 18:30 08/27/17 18:29 07/29/17 09:07 Heparin Sodium (Porcine) (Heparin 5000 units/ml) 5,000 units EVERY 12 HOURS SUBQ 07/28/17 21:00 08/27/17 20:59 07/29/17 09:13 Insulin Aspart (NovoLOG) BEFORE MEALS AND HS SUBQ 07/28/17 21:00 08/27/17 20:59 Metolazone (Zaroxolyn) 5 mg DAILY ORAL 07/29/17 09:00 08/28/17 08:59 07/29/17 09:07 Metoprolol Tartrate (Lopressor) 5 mg Q5MIN X 3 IVP 07/29/17 00:00 08/28/17 00:00 Ondansetron HCl (Zofran) 4 mg Q6H PRN IVP Nausea & Vomiting 07/28/17 15:45 08/27/17 15:44 Polyethylene Glycol (Miralax) 17 gm DAILYPRN PRN ORAL Constipation 07/28/17 15:45 08/27/17 15:44 07/29/17 09:06 Sitagliptin Phosphate (Januvia) 50 mg DAILY ORAL 07/29/17 09:00 08/28/17 08:59 07/29/17 09:26 Temazepam (Restoril) 15 mg HSPRN PRN ORAL Insomnia 07/28/17 15:45 08/04/17 15:44 Jesús Farrell MD Jul 29, 2017 13:26
--- NOTE | 2017-07-29 14:35 | General Progress Note ---
Assessment/Plan Problem List: (1) Edema ICD Codes: R60.9 - Edema, unspecified SNOMED: 202517475 (2) HTN (hypertension) ICD Codes: I10 - HTN (hypertension) SNOMED: 45676704 (3) DM (diabetes mellitus) ICD Codes: E11.9 - DM (diabetes mellitus) SNOMED: 32704024 (4) CHF exacerbation ICD Codes: I50.9 - Heart failure, unspecified SNOMED: 40623277 Qualifiers: Qualified Codes: I50.9 - Heart failure, unspecified (5) Atrial fibrillation with rapid ventricular response ICD Codes: I48.91 - Unspecified atrial fibrillation SNOMED: 429363384366461 Status: unchanged Assessment/Plan o2 pulm tx ot pt diet cbc bmp am Subjective Constitutional: Reports: weakness Respiratory: Reports: shortness of breath Allergies: Coded Allergies: ASPIRIN (Verified Allergy, Intermediate, Hives, 01/06/13) PENICILLINS (Verified Allergy, Intermediate, Hives, 01/06/13) All Systems: reviewed and negative except above Subjective o2nc calm Objective Last 24 Hour Vital Signs Date Time Temp Pulse Resp B/P (MAP) Pulse Ox O2 Delivery O2 Flow Rate FiO2 07/29/17 12:00 97.2 111 18 129/99 97 Nasal Cannula 2.0 97.2 07/29/17 10:25 97.2 07/29/17 09:26 97.2 07/29/17 08:00 112 07/29/17 08:00 97.2 113 19 135/95 99 Nasal Cannula 2.0 97.2 07/29/17 04:00 110 07/29/17 04:00 97.7 111 20 131/94 95 Nasal Cannula 2.0 97.7 07/29/17 00:22 113 07/29/17 00:00 114 07/29/17 00:00 97.5 114 18 133/93 96 Nasal Cannula 2.0 97.5 07/28/17 20:36 148/92 07/28/17 20:30 97.0 115 23 132/78 97 Nasal Cannula 2.0 97.0 07/28/17 16:15 97.5 16 136/88 98 Room Air 97.5 Intake and Output 07/28/17 07/29/17 19:00 07:00 Intake Total 0 ml 300 ml Balance 0 ml 300 ml Intake Oral 0 ml 300 ml Laboratory Tests 07/28/17 16:09: Urine Color Yellow, Urine Appearance Clear, Urine pH 5, Urine Specific [place] 1.015, Urine Protein 3+H, Urine Glucose (UA) Negative, Urine Ketones Negative, Urine Occult Blood 5+H, Urine Nitrite Negative, Urine Bilirubin Negative, Urine Urobilinogen Normal, Urine Leukocyte Esterase 2+H, Urine RBC 5-10H, Urine WBC 2- 4, Urine Squamous Epithelial Cells Few, Urine Amorphous Sediment FewH, Urine Bacteria Few 07/29/17 07:30: White Blood Count 8.5, Red Blood Count 5.47H, Hemoglobin 13.6, Hematocrit 46.0, Mean Corpuscular Volume 84, Mean Corpuscular Hemoglobin 24.9L, Mean Corpuscular Hemoglobin Concent 29.6L, Red Cell Distribution Width 16.0H, Platelet Count 272 , Mean Platelet Volume 7.1, Neutrophils (%) (Auto) 64.4, Lymphocytes (%) (Auto) 23.9, Monocytes (%) (Auto) 8.1, Eosinophils (%) (Auto) 1.3, Basophils (%) (Auto ) 2.3H, Sodium Level 143, Potassium Level 4.5, Chloride Level 105, Carbon Dioxide Level 31, Anion Gap 7, Blood Urea Nitrogen 41H, Creatinine 1.5H, Estimat Glomerular Filtration Rate 42.3, Glucose Level 91#, Calcium Level 9.2, Troponin I 0.082H Height (Feet): 5 Height (Inches): 3.00 Weight (Pounds): 319 General Appearance: lethargic EENT: normal ENT inspection Neck: normal alignment Cardiovascular: normal peripheral pulses, normal rate, regular rhythm Respiratory/Chest: chest wall non-tender, lungs clear, normal breath sounds Abdomen: normal bowel sounds, non tender, soft Extremities: normal inspection Edema: 1+ Arm (L), 1+ Arm (R), 1+ Leg (L), 1+ Leg (R), 1+ Pedal (L), 1+ Pedal ( R), 1+ Generalized Edema: trace edema Neurologic: motor weakness Skin: normal pigmentation, warm/dry CHANA LUBIN Jul 29, 2017 14:35
[2017-07-29 16:00] VITALS: BP 113/62
--- NOTE | 2017-07-29 16:40 | Cardiology Report ---
APPROVED REPORT EKG Measurement Heart [id number] Atrial flutter with variable AV block with premature ventricular or aberrantly conducted complexes Right axis deviation Low voltage QRS Septal infarct, age undetermined Abnormal ECG
[2017-07-29 20:00] VITALS: BP 127/94
[2017-07-29] MEDS: Atorvastatin 20mg tab ORAL SCH (21:05)
--- NOTE | 2017-07-29 23:47 | Cardiology Progress Note ---
Assessment/Plan Assessment/Plan 1. Predominantly right heart failure with associated anasarca, continue lasix and metolazone, check daily creatinine. The patient and has refused right heart catheterization in the past. 2. Acute on systolic and diastolic congestive heart failure. We will continue with diuretics. The patient requires left heart catheterization to rule out coronary artery disease as a potential etiology. 3. New onset atrial flutter. We will like to continue with rate control. It is not clear how long the patient has been in atrial flutter. She may benefit from a RAMIRO and cardioversion and sought of antiarrhythmic. 4. History of diabetes mellitus. 5. History of hypertension. 6. History of chronic kidney disease. 7. History of COPD. Subjective Subjective Atrial flutter at 113. Objective Last 24 Hour Vital Signs Date Time Temp Pulse Resp B/P (MAP) Pulse Ox O2 Delivery O2 Flow Rate FiO2 07/29/17 20:00 97.5 113 20 127/94 96 Nasal Cannula 2.0 97.5 07/29/17 19:36 97.8 07/29/17 18:45 97.8 07/29/17 16:00 113 07/29/17 16:00 97.8 115 22 113/62 95 Nasal Cannula 2.0 97.8 07/29/17 12:00 97.2 111 18 129/99 97 Nasal Cannula 2.0 97.2 07/29/17 12:00 135 07/29/17 09:26 97.2 07/29/17 08:00 112 07/29/17 08:00 97.2 113 19 135/95 99 Nasal Cannula 2.0 97.2 07/29/17 04:00 110 07/29/17 04:00 97.7 111 20 131/94 95 Nasal Cannula 2.0 97.7 07/29/17 00:22 113 07/29/17 00:00 114 07/29/17 00:00 97.5 114 18 133/93 96 Nasal Cannula 2.0 97.5 Intake and Output 07/28/17 07/29/17 19:00 07:00 Intake Total 0 ml 300 ml Balance 0 ml 300 ml Intake Oral 0 ml 300 ml 2D Echo: EF 30%,Global LV HK,Sev RA/RV dilation,RVSP 65 mmHg,Mild AR/MR,Grade I LVDD Laboratory Tests Test 4/4/18 07:30 White Blood Count 8.5 K/UL (4.8-10.8) Red Blood Count 5.47 M/UL (4.20-5.40) H Hemoglobin 13.6 G/DL (12.0-16.0) Hematocrit 46.0 % (37.0-47.0) Mean Corpuscular Volume 84 FL (80-99) Mean Corpuscular Hemoglobin 24.9 PG (27.0-31.0) L Mean Corpuscular Hemoglobin Concent 29.6 G/DL (32.0-36.0) L Red Cell Distribution Width 16.0 % (11.6-14.8) H Platelet Count 272 K/UL (150-450) Mean Platelet Volume 7.1 FL (6.5-10.1) Neutrophils (%) (Auto) 64.4 % (45.0-75.0) Lymphocytes (%) (Auto) 23.9 % (20.0-45.0) Monocytes (%) (Auto) 8.1 % (1.0-10.0) Eosinophils (%) (Auto) 1.3 % (0.0-3.0) Basophils (%) (Auto) 2.3 % (0.0-2.0) H Sodium Level 143 MMOL/L (136-145) Potassium Level 4.5 MMOL/L (3.5-5.1) Chloride Level 105 MMOL/L (98-107) Carbon Dioxide Level 31 MMOL/L (21-32) Anion Gap 7 mmol/L (5-15) Blood Urea Nitrogen 41 mg/dL (7-18) H Creatinine 1.5 MG/DL (0.55-1.30) H Estimat Glomerular Filtration Rate 42.3 mL/min (>60) Glucose Level 91 MG/DL (74-106) # Calcium Level 9.2 MG/DL (8.5-10.1) Troponin I 0.082 ng/mL (0.000-0.056) Objective GENERAL: The patient is a very unfortunate 66-year-old female, in [id number] respiratory distress. HEENT: Atraumatic and normocephalic. Anicteric. Pupils are equal, round, and reactive to light and accommodation. Extraocular muscles intact. NECK: JVP is elevated at about 15 cm. No carotid bruits. Carotid upstrokes 2+ bilaterally. CARDIOVASCULAR: Normal S1 and S2. Irregularly irregular rhythm. Tachycardic. Positive S3 and S4 gallop. LUNGS: Diminished breath sounds in both bases. ABDOMEN: Distended and nontender. Positive bowel sounds. No hepatosplenomegaly EXTREMITIES: There is 3 to 4+ bilateral edema. NBA HERRERA Jul 29, 2017 23:47
[2017-07-30] VITALS: BP 145/79
[2017-07-30 04:00] VITALS: BP 123/75
[2017-07-30] MEDS: NovoLOG Insulin Flexpen SUBQ SCH ×4 (06:30→21:00)
[2017-07-30 08:00] VITALS: BP 114/77
--- NOTE | 2017-07-30 08:12 | Diagnostic Imaging Report ---
APPROVED REPORT CPT Code: 32336 Present Symptoms Comments: BILATERAL LEGS PAIN BILATERAL: Imaging reveals a patent deep venous system bilaterally. There is no evidence of thrombus within the femoral, popliteal or tibial segments. The greater saphenous veins are also within normal limits. Doppler indicates normal spontaneous flow within these segments.
[2017-07-30 09:02] LABS: BASOPHILS % (AUTO) 1.6 % (0.0-2.0); HEMATOCRIT 48.9 % (37.0-47.0); HEMOGLOBIN 13.7 G/DL (12.0-16.0); LYMPHOCYTES % (AUTO) 23.5 % (20.0-45.0); MEAN CORPUSCULAR VOLUME 87 FL (80-99); MONOCYTES % (AUTO) 8.3 % (1.0-10.0); NEUTROPHILS % (AUTO) 64.6 % (45.0-75.0); PLATELET COUNT 271 K/UL (150-450); RED BLOOD COUNT 5.62 M/UL (4.20-5.40); RED CELL DISTRIBUTION WIDTH 15.7 % (11.6-14.8); WHITE BLOOD COUNT 7.4 K/UL (4.8-10.8)
[2017-07-30 09:31] LABS: ANION GAP 9 mmol/L (5-15); BLOOD UREA NITROGEN 45 mg/dL (7-18); CALCIUM 9.2 MG/DL (8.5-10.1); CARBON DIOXIDE 30 MMOL/L (21-32); CHLORIDE 103 MMOL/L (98-107); CREATININE 1.5 MG/DL (0.55-1.30); SODIUM 142 MMOL/L (136-145)
[2017-07-30] MEDS: sitaGLIPtin 50mg tab ORAL SCH (09:46)
[2017-07-30] MEDS: HYDROcodone/Acetamin 10/325 tab ORAL PRN ×2 (09:47→18:31)
[2017-07-30] MEDS: Heparin 5000 units/ml inj SUBQ SCH ×2 (09:51→21:07)
[2017-07-30] MEDS: Eliquis 2.5mg tablet ORAL SCH ×2 (10:37→18:30)
[2017-07-30 12:00] VITALS: BP 125/89
--- NOTE | 2017-07-30 12:53 | General Progress Note ---
Assessment/Plan Problem List: (1) Edema ICD Codes: R60.9 - Edema, unspecified SNOMED: 460320783 (2) HTN (hypertension) ICD Codes: I10 - HTN (hypertension) SNOMED: 02178616 (3) DM (diabetes mellitus) ICD Codes: E11.9 - DM (diabetes mellitus) SNOMED: 54256984 (4) CHF exacerbation ICD Codes: I50.9 - Heart failure, unspecified SNOMED: 79923874 Qualifiers: Qualified Codes: I50.9 - Heart failure, unspecified (5) Atrial fibrillation with rapid ventricular response ICD Codes: I48.91 - Unspecified atrial fibrillation SNOMED: 577980951279604 Status: unchanged Assessment/Plan o2 pulm tx ot pt diet cbc bmp am Subjective Constitutional: Reports: weakness Respiratory: Reports: shortness of breath Allergies: Coded Allergies: ASPIRIN (Verified Allergy, Intermediate, Hives, 01/06/13) PENICILLINS (Verified Allergy, Intermediate, Hives, 01/06/13) All Systems: reviewed and negative except above Subjective o2nc calm Objective Last 24 Hour Vital Signs Date Time Temp Pulse Resp B/P (MAP) Pulse Ox O2 Delivery O2 Flow Rate FiO2 07/30/17 09:47 97.1 07/30/17 08:00 97.1 108 20 114/77 93 Nasal Cannula 2.0 97.1 07/30/17 04:00 111 07/30/17 04:00 97.2 111 20 123/75 97 Nasal Cannula 2.0 97.2 07/30/17 00:00 111 07/30/17 00:00 96.8 93 22 145/79 97 Nasal Cannula 2.0 96.8 07/29/17 20:00 97.5 113 20 127/94 96 Nasal Cannula 2.0 97.5 07/29/17 20:00 113 07/29/17 19:36 97.8 07/29/17 18:45 97.8 07/29/17 16:00 113 07/29/17 16:00 97.8 115 22 113/62 95 Nasal Cannula 2.0 97.8 Intake and Output 07/29/17 07/30/17 19:00 07:00 Intake Total 560 ml 540 ml Balance 560 ml 540 ml Intake Oral 560 ml 540 ml # Voids 5 Laboratory Tests 07/30/17 06:50: White Blood Count 7.4, Red Blood Count 5.62H, Hemoglobin 13.7, Hematocrit 48.9H , Mean Corpuscular Volume 87, Mean Corpuscular Hemoglobin 24.5L, Mean Corpuscular Hemoglobin Concent 28.1L, Red Cell Distribution Width 15.7H, Platelet Count 271, Mean Platelet Volume 7.2, Neutrophils (%) (Auto) 64.6, Lymphocytes (%) (Auto) 23.5, Monocytes (%) (Auto) 8.3, Eosinophils (%) (Auto) 2.0, Basophils (%) (Auto) 1.6, Sodium Level 142, Potassium Level 4.0, Chloride Level 103, Carbon Dioxide Level 30, Anion Gap 9, Blood Urea Nitrogen 45H, Creatinine 1.5H, Estimat Glomerular Filtration Rate 42.3, Glucose Level 85, Calcium Level 9.2, Troponin I 0.098H Height (Feet): 5 Height (Inches): 3.00 Weight (Pounds): 308 General Appearance: alert EENT: normal ENT inspection Neck: normal alignment Cardiovascular: normal peripheral pulses, normal rate, regular rhythm Respiratory/Chest: chest wall non-tender, lungs clear, decreased breath sounds Abdomen: normal bowel sounds, non tender, soft Extremities: normal inspection Edema: 1+ Arm (L), 1+ Arm (R), 1+ Leg (L), 1+ Leg (R), 1+ Pedal (L), 1+ Pedal ( R), 1+ Generalized Edema: trace edema Neurologic: motor weakness Skin: normal pigmentation, warm/dry CHANA LUBIN Jul 30, 2017 12:53
--- NOTE | 2017-07-30 14:56 | Pulmonology Progress Note ---
Assessment/Plan Problems: (1) CHF exacerbation (2) Atrial fibrillation with rapid ventricular response (3) Pulmonary hypertension (4) HTN (hypertension) (5) DM (diabetes mellitus) Assessment/Plan continue diuretics improving resume Sidenefil repeat cxr reviewed, pulmonary edema improved heart rate controlled sliding scale diabetic diet. anticoagulation by cardiology pain management symptomatic treatment. dc planning Subjective ROS Limited/Unobtainable: No Constitutional: Reports: no symptoms HEENT: Repors: no symptoms Respiratory: Reports: no symptoms Allergies: Coded Allergies: ASPIRIN (Verified Allergy, Intermediate, Hives, 01/06/13) PENICILLINS (Verified Allergy, Intermediate, Hives, 01/06/13) Objective Last 24 Hour Vital Signs Date Time Temp Pulse Resp B/P (MAP) Pulse Ox O2 Delivery O2 Flow Rate FiO2 07/30/17 12:00 97.3 113 19 125/89 97 Nasal Cannula 2.0 97.3 07/30/17 12:00 111 07/30/17 10:46 97.1 07/30/17 09:47 97.1 07/30/17 08:28 129 07/30/17 08:00 133 07/30/17 08:00 97.1 108 20 114/77 93 Nasal Cannula 2.0 97.1 07/30/17 04:00 111 07/30/17 04:00 97.2 111 20 123/75 97 Nasal Cannula 2.0 97.2 07/30/17 00:00 111 07/30/17 00:00 96.8 93 22 145/79 97 Nasal Cannula 2.0 96.8 07/29/17 20:00 97.5 113 20 127/94 96 Nasal Cannula 2.0 97.5 07/29/17 20:00 113 07/29/17 18:45 97.8 07/29/17 16:00 113 07/29/17 16:00 97.8 115 22 113/62 95 Nasal Cannula 2.0 97.8 Intake and Output 07/29/17 07/30/17 19:00 07:00 Intake Total 560 ml 540 ml Balance 560 ml 540 ml Intake Oral 560 ml 540 ml # Voids 5 Objective General Appearance: obese Lines, tubes and drains: peripheral HEENT: normocephalic, atraumatic Neck: non-tender, normal alignment Respiratory/Chest: crackles/rales Breasts: no masses Cardiovascular/Chest: normal peripheral pulses, normal rate Abdomen: normal bowel sounds, non tender Genitourinary/Rectal: normal genital exam Extremities: normal range of motion, non-tender, moderate edema Skin Exam: normal pigmentation Neurologic: gold beater II-XII grossly normal Laboratory Tests 07/30/17 06:50: White Blood Count 7.4, Red Blood Count 5.62H, Hemoglobin 13.7, Hematocrit 48.9H , Mean Corpuscular Volume 87, Mean Corpuscular Hemoglobin 24.5L, Mean Corpuscular Hemoglobin Concent 28.1L, Red Cell Distribution Width 15.7H, Platelet Count 271, Mean Platelet Volume 7.2, Neutrophils (%) (Auto) 64.6, Lymphocytes (%) (Auto) 23.5, Monocytes (%) (Auto) 8.3, Eosinophils (%) (Auto) 2.0, Basophils (%) (Auto) 1.6, Sodium Level 142, Potassium Level 4.0, Chloride Level 103, Carbon Dioxide Level 30, Anion Gap 9, Blood Urea Nitrogen 45H, Creatinine 1.5H, Estimat Glomerular Filtration Rate 42.3, Glucose Level 85, Calcium Level 9.2, Troponin I 0.098H Current Medications Medications (Trade) Dose Ordered Sig/Toya Route PRN Reason Start Time Stop Time Status Last Admin Dose Admin Acetaminophen (Tylenol) 650 mg Q4H PRN ORAL Fever 07/28/17 15:45 08/27/17 15:44 Acetaminophen/ Hydrocodone Bitart ([place] 10/325) 1 tab Q4H PRN ORAL Moderate to Severe Pain 07/28/17 15:45 08/04/17 15:44 07/30/17 09:47 Albuterol/ Ipratropium (Albuterol/ Ipratropium) 3 ml Q4H PRN HHN Shortness of Breath 07/28/17 15:45 08/02/17 15:44 Apixaban (Eliquis) 5 mg BID ORAL 07/28/17 23:45 08/27/17 23:44 07/30/17 10:37 Atorvastatin Calcium (Lipitor) 40 mg QHS ORAL 07/29/17 21:00 08/28/17 20:59 07/29/17 21:05 Dextrose (Dextrose 50%) 25 ml STAT PRN IV HYPOGLYCEMIA 07/29/17 08:30 08/28/17 08:29 Dextrose (Dextrose 50%) 50 ml STAT PRN IV Hypoglycemia 07/29/17 08:30 08/27/17 15:44 Furosemide (Lasix) 40 mg EVERY 8 HOURS IV 07/28/17 22:00 08/27/17 21:59 07/30/17 13:24 Gabapentin (Neurontin) 300 mg BID ORAL 07/28/17 18:30 08/27/17 18:29 07/30/17 09:46 Heparin Sodium (Porcine) (Heparin 5000 units/ml) 5,000 units EVERY 12 HOURS SUBQ 07/28/17 21:00 08/27/17 20:59 07/30/17 09:51 Insulin Aspart (NovoLOG) BEFORE MEALS AND HS SUBQ 07/28/17 21:00 08/27/17 20:59 Metolazone (Zaroxolyn) 5 mg DAILY ORAL 07/29/17 09:00 08/28/17 08:59 07/30/17 09:46 Metoprolol Tartrate (Lopressor) 5 mg Q5MIN X 3 IVP 07/29/17 00:00 08/28/17 00:00 Ondansetron HCl (Zofran) 4 mg Q6H PRN IVP Nausea & Vomiting 07/28/17 15:45 08/27/17 15:44 Polyethylene Glycol (Miralax) 17 gm DAILYPRN PRN ORAL Constipation 07/28/17 15:45 08/27/17 15:44 07/29/17 09:06 Sitagliptin Phosphate (Januvia) 50 mg DAILY ORAL 07/29/17 09:00 08/28/17 08:59 07/30/17 09:46 Temazepam (Restoril) 15 mg HSPRN PRN ORAL Insomnia 07/28/17 15:45 08/04/17 15:44 Jesús Farrell MD Jul 30, 2017 14:56
[2017-07-30 16:00] VITALS: BP 139/106
[2017-07-30] MEDS: Revatio 20mg tab ORAL SCH (18:29)
[2017-07-30 20:00] VITALS: BP 130/95
[2017-07-30] MEDS: Atorvastatin 20mg tab ORAL SCH (21:05)
--- NOTE | 2017-07-30 23:40 | Cardiology Progress Note ---
Assessment/Plan Assessment/Plan 1. Predominantly right heart failure with associated anasarca, continue lasix and metolazone, creatinine stable, daily weight shows ~5 Ibs loss. 2. Acute on systolic and diastolic congestive heart failure, continue the diuretics. The patient requires left heart catheterization to rule out coronary artery disease as a potential etiology. 3. New onset atrial flutter. We will like to continue with rate control. It is not clear how long the patient has been in atrial flutter. She may benefit from a RAMIRO and cardioversion and sought of antiarrhythmic. 4. History of diabetes mellitus. 5. History of hypertension. 6. History of chronic kidney disease. 7. History of COPD. Subjective Subjective Atrial flutter at 113. Objective Last 24 Hour Vital Signs Date Time Temp Pulse Resp B/P (MAP) Pulse Ox O2 Delivery O2 Flow Rate FiO2 07/30/17 19:30 97.0 07/30/17 18:31 97.0 07/30/17 16:00 113 07/30/17 16:00 97.0 113 21 139/106 97 Nasal Cannula 2.0 97.0 07/30/17 12:00 97.3 113 19 125/89 97 Nasal Cannula 2.0 97.3 07/30/17 12:00 111 07/30/17 09:47 97.1 07/30/17 08:28 129 07/30/17 08:00 133 07/30/17 08:00 97.1 108 20 114/77 93 Nasal Cannula 2.0 97.1 07/30/17 04:00 111 07/30/17 04:00 97.2 111 20 123/75 97 Nasal Cannula 2.0 97.2 07/30/17 00:00 111 07/30/17 00:00 96.8 93 22 145/79 97 Nasal Cannula 2.0 96.8 Intake and Output 07/29/17 07/30/17 19:00 07:00 Intake Total 560 ml 540 ml Balance 560 ml 540 ml Intake Oral 560 ml 540 ml # Voids 5 2D Echo: EF 30%,Global LV HK,Sev RA/RV dilation,RVSP 65 mmHg,Mild AR/MR,Grade I LVDD Laboratory Tests Test 07/30/17 06:50 White Blood Count 7.4 K/UL (4.8-10.8) Red Blood Count 5.62 M/UL (4.20-5.40) H Hemoglobin 13.7 G/DL (12.0-16.0) Hematocrit 48.9 % (37.0-47.0) H Mean Corpuscular Volume 87 FL (80-99) Mean Corpuscular Hemoglobin 24.5 PG (27.0-31.0) L Mean Corpuscular Hemoglobin Concent 28.1 G/DL (32.0-36.0) L Red Cell Distribution Width 15.7 % (11.6-14.8) H Platelet Count 271 K/UL (150-450) Mean Platelet Volume 7.2 FL (6.5-10.1) Neutrophils (%) (Auto) 64.6 % (45.0-75.0) Lymphocytes (%) (Auto) 23.5 % (20.0-45.0) Monocytes (%) (Auto) 8.3 % (1.0-10.0) Eosinophils (%) (Auto) 2.0 % (0.0-3.0) Basophils (%) (Auto) 1.6 % (0.0-2.0) Sodium Level 142 MMOL/L (136-145) Potassium Level 4.0 MMOL/L (3.5-5.1) Chloride Level 103 MMOL/L (98-107) Carbon Dioxide Level 30 MMOL/L (21-32) Anion Gap 9 mmol/L (5-15) Blood Urea Nitrogen 45 mg/dL (7-18) H Creatinine 1.5 MG/DL (0.55-1.30) H Estimat Glomerular Filtration Rate 42.3 mL/min (>60) Glucose Level 85 MG/DL (74-106) Calcium Level 9.2 MG/DL (8.5-10.1) Troponin I 0.098 ng/mL (0.000-0.056) Objective GENERAL: The patient is a very unfortunate 66-year-old female, in [id number] respiratory distress. HEENT: Atraumatic and normocephalic. Anicteric. Pupils are equal, round, and reactive to light and accommodation. Extraocular muscles intact. NECK: JVP is elevated at about 15 cm. No carotid bruits. Carotid upstrokes 2+ bilaterally. CARDIOVASCULAR: Normal S1 and S2. Irregularly irregular rhythm. Tachycardic. Positive S3 and S4 gallop. LUNGS: Diminished breath sounds in both bases. ABDOMEN: Distended and nontender. Positive bowel sounds. No hepatosplenomegaly EXTREMITIES: There is 3 to 4+ bilateral edema. NBA HERRERA Jul 30, 2017 23:40
[2017-07-31] VITALS: BP 122/89
[2017-07-31 04:00] VITALS: BP 132/86
[2017-07-31] MEDS: NovoLOG Insulin Flexpen SUBQ SCH ×4 (06:16→20:48)
[2017-07-31 08:00] VITALS: BP 143/86
[2017-07-31] MEDS: sitaGLIPtin 50mg tab ORAL SCH (08:08)
[2017-07-31] MEDS: Revatio 20mg tab ORAL SCH ×3 (08:08→17:02)
[2017-07-31] MEDS: Heparin 5000 units/ml inj SUBQ SCH ×2 (08:09→20:46)
[2017-07-31] MEDS: Eliquis 2.5mg tablet ORAL SCH ×2 (08:12→17:02)
[2017-07-31 10:09] LABS: BASOPHILS % (AUTO) 0.9 % (0.0-2.0); EOSINOPHILS % (AUTO) 2.3 % (0.0-3.0); HEMATOCRIT 45.7 % (37.0-47.0); HEMOGLOBIN 13.2 G/DL (12.0-16.0); LYMPHOCYTES % (AUTO) 17.2 % (20.0-45.0); MEAN CORPUSCULAR VOLUME 85 FL (80-99); MONOCYTES % (AUTO) 6.4 % (1.0-10.0); NEUTROPHILS % (AUTO) 73.2 % (45.0-75.0); PLATELET COUNT 267 K/UL (150-450); RED BLOOD COUNT 5.35 M/UL (4.20-5.40); RED CELL DISTRIBUTION WIDTH 15.6 % (11.6-14.8); WHITE BLOOD COUNT 7.4 K/UL (4.8-10.8)
[2017-07-31 10:15] LABS: ANION GAP 6 mmol/L (5-15); BLOOD UREA NITROGEN 41 mg/dL (7-18); CALCIUM 9.2 MG/DL (8.5-10.1); CARBON DIOXIDE 36 MMOL/L (21-32); CHLORIDE 100 MMOL/L (98-107); CREATININE 1.4 MG/DL (0.55-1.30); POTASSIUM 3.3 MMOL/L (3.5-5.1); SODIUM 142 MMOL/L (136-145)
[2017-07-31 12:00] VITALS: BP 120/59
--- NOTE | 2017-07-31 12:49 | General Progress Note ---
Assessment/Plan Problem List: (1) Edema ICD Codes: R60.9 - Edema, unspecified SNOMED: 435153614 (2) HTN (hypertension) ICD Codes: I10 - HTN (hypertension) SNOMED: 69409108 (3) DM (diabetes mellitus) ICD Codes: E11.9 - DM (diabetes mellitus) SNOMED: 30889061 (4) CHF exacerbation ICD Codes: I50.9 - Heart failure, unspecified SNOMED: 49477990 Qualifiers: Qualified Codes: I50.9 - Heart failure, unspecified (5) Atrial fibrillation with rapid ventricular response ICD Codes: I48.91 - Unspecified atrial fibrillation SNOMED: 680302620306726 Status: unchanged Assessment/Plan o2 pulm tx ot pt diet cbc bmp am dc plan w hh Subjective Constitutional: Reports: weakness Respiratory: Reports: shortness of breath Allergies: Coded Allergies: ASPIRIN (Verified Allergy, Intermediate, Hives, 01/06/13) PENICILLINS (Verified Allergy, Intermediate, Hives, 01/06/13) All Systems: reviewed and negative except above Subjective o2nc calm Objective Last 24 Hour Vital Signs Date Time Temp Pulse Resp B/P (MAP) Pulse Ox O2 Delivery O2 Flow Rate FiO2 07/31/17 08:00 113 07/31/17 08:00 97.6 115 19 143/86 96 Nasal Cannula 2.0 97.6 07/31/17 04:00 110 07/31/17 04:00 97.4 111 20 132/86 96 Nasal Cannula 2.0 97.4 07/31/17 00:00 96.6 100 22 122/89 96 Nasal Cannula 2.0 96.6 07/31/17 00:00 112 07/30/17 20:00 97.7 112 20 130/95 93 Nasal Cannula 2.0 97.7 07/30/17 20:00 112 07/30/17 19:30 97.0 07/30/17 18:31 97.0 07/30/17 16:00 113 07/30/17 16:00 97.0 113 21 139/106 97 Nasal Cannula 2.0 97.0 Intake and Output 07/30/17 07/31/17 19:00 07:00 Intake Total 950 ml 300 ml Output Total 600 ml Balance 950 ml -300 ml Intake Oral 750 ml IV Total 200 ml Other 300 ml Output Urine Total 600 ml # Voids 15 6 Laboratory Tests 4/6/18 09:30: White Blood Count 7.4, Red Blood Count 5.35, Hemoglobin 13.2, Hematocrit 45.7, Mean Corpuscular Volume 85, Mean Corpuscular Hemoglobin 24.7L, Mean Corpuscular Hemoglobin Concent 28.9L, Red Cell Distribution Width 15.6H, Platelet Count 267 , Mean Platelet Volume 7.5, Neutrophils (%) (Auto) 73.2, Lymphocytes (%) (Auto) 17.2L, Monocytes (%) (Auto) 6.4, Eosinophils (%) (Auto) 2.3, Basophils (%) (Auto ) 0.9, Sodium Level 142, Potassium Level 3.3L, Chloride Level 100, Carbon Dioxide Level 36H, Anion Gap 6, Blood Urea Nitrogen 41H, Creatinine 1.4H, Estimat Glomerular Filtration Rate 45.8, Glucose Level 174H, Calcium Level 9.2, Magnesium Level 1.8 Height (Feet): 5 Height (Inches): 3.00 Weight (Pounds): 299 General Appearance: lethargic EENT: normal ENT inspection Neck: normal alignment Cardiovascular: normal peripheral pulses, normal rate, regular rhythm Respiratory/Chest: chest wall non-tender, lungs clear, decreased breath sounds Abdomen: normal bowel sounds, non tender, soft Extremities: normal inspection Edema: 1+ Arm (L), 1+ Arm (R), 1+ Leg (L), 1+ Leg (R), 1+ Pedal (L), 1+ Pedal ( R), 1+ Generalized Edema: trace edema Neurologic: responsive, motor weakness Skin: normal pigmentation, warm/dry CHANA LUBIN Jul 31, 2017 12:49
--- NOTE | 2017-07-31 15:33 | Pulmonology Progress Note ---
Assessment/Plan Problems: (1) CHF exacerbation (2) Atrial fibrillation with rapid ventricular response (3) Pulmonary hypertension (4) HTN (hypertension) (5) DM (diabetes mellitus) Assessment/Plan continue diuretics improving resume Sidenefil repeat cxr reviewed, pulmonary edema improved heart rate controlled, still in atrial flutter sliding scale diabetic diet. anticoagulation by cardiology pain management symptomatic treatment. Subjective ROS Limited/Unobtainable: No Interval Events: diuresing well Constitutional: Reports: no symptoms Allergies: Coded Allergies: ASPIRIN (Verified Allergy, Intermediate, Hives, 01/06/13) PENICILLINS (Verified Allergy, Intermediate, Hives, 01/06/13) Objective Last 24 Hour Vital Signs Date Time Temp Pulse Resp B/P (MAP) Pulse Ox O2 Delivery O2 Flow Rate FiO2 07/31/17 08:00 113 07/31/17 08:00 97.6 115 19 143/86 96 Nasal Cannula 2.0 97.6 07/31/17 04:00 110 07/31/17 04:00 97.4 111 20 132/86 96 Nasal Cannula 2.0 97.4 07/31/17 00:00 96.6 100 22 122/89 96 Nasal Cannula 2.0 96.6 07/31/17 00:00 112 07/30/17 20:00 97.7 112 20 130/95 93 Nasal Cannula 2.0 97.7 07/30/17 20:00 112 07/30/17 19:30 97.0 07/30/17 18:31 97.0 07/30/17 16:00 113 07/30/17 16:00 97.0 113 21 139/106 97 Nasal Cannula 2.0 97.0 Intake and Output 07/30/17 07/31/17 19:00 07:00 Intake Total 950 ml 300 ml Output Total 600 ml Balance 950 ml -300 ml Intake Oral 750 ml IV Total 200 ml Other 300 ml Output Urine Total 600 ml # Voids 15 6 Objective General Appearance: obese Lines, tubes and drains: peripheral HEENT: normocephalic, atraumatic Neck: non-tender, normal alignment Respiratory/Chest: crackles/rales Breasts: no masses Cardiovascular/Chest: normal peripheral pulses, normal rate Abdomen: normal bowel sounds, non tender Genitourinary/Rectal: normal genital exam Extremities: normal range of motion, non-tender, moderate edema Skin Exam: normal pigmentation Neurologic: barrer and tacker II-XII grossly normal Laboratory Tests 07/31/17 09:30: White Blood Count 7.4, Red Blood Count 5.35, Hemoglobin 13.2, Hematocrit 45.7, Mean Corpuscular Volume 85, Mean Corpuscular Hemoglobin 24.7L, Mean Corpuscular Hemoglobin Concent 28.9L, Red Cell Distribution Width 15.6H, Platelet Count 267 , Mean Platelet Volume 7.5, Neutrophils (%) (Auto) 73.2, Lymphocytes (%) (Auto) 17.2L, Monocytes (%) (Auto) 6.4, Eosinophils (%) (Auto) 2.3, Basophils (%) (Auto ) 0.9, Sodium Level 142, Potassium Level 3.3L, Chloride Level 100, Carbon Dioxide Level 36H, Anion Gap 6, Blood Urea Nitrogen 41H, Creatinine 1.4H, Estimat Glomerular Filtration Rate 45.8, Glucose Level 174H, Calcium Level 9.2, Magnesium Level 1.8 Current Medications Medications (Trade) Dose Ordered Sig/Toya Route PRN Reason Start Time Stop Time Status Last Admin Dose Admin Acetaminophen (Tylenol) 650 mg Q4H PRN ORAL Fever 07/28/17 15:45 08/27/17 15:44 Acetaminophen/ Hydrocodone Bitart ([place] 10/325) 1 tab Q4H PRN ORAL Moderate to Severe Pain 07/28/17 15:45 08/04/17 15:44 07/30/17 18:31 Albuterol/ Ipratropium (Albuterol/ Ipratropium) 3 ml Q4H PRN HHN Shortness of Breath 07/28/17 15:45 08/02/17 15:44 Apixaban (Eliquis) 5 mg BID ORAL 07/28/17 23:45 08/27/17 23:44 07/31/17 08:12 Atorvastatin Calcium (Lipitor) 40 mg QHS ORAL 07/29/17 21:00 08/28/17 20:59 07/30/17 21:05 Dextrose (Dextrose 50%) 25 ml STAT PRN IV HYPOGLYCEMIA 07/29/17 08:30 08/28/17 08:29 Dextrose (Dextrose 50%) 50 ml STAT PRN IV Hypoglycemia 07/29/17 08:30 08/27/17 15:44 Furosemide (Lasix) 40 mg EVERY 8 HOURS IV 07/28/17 22:00 08/27/17 21:59 07/31/17 13:10 Gabapentin (Neurontin) 300 mg BID ORAL 07/28/17 18:30 08/27/17 18:29 07/31/17 08:08 Heparin Sodium (Porcine) (Heparin 5000 units/ml) 5,000 units EVERY 12 HOURS SUBQ 07/28/17 21:00 08/27/17 20:59 07/31/17 08:09 Insulin Aspart (NovoLOG) BEFORE MEALS AND HS SUBQ 07/28/17 21:00 08/27/17 20:59 Metolazone (Zaroxolyn) 5 mg DAILY ORAL 07/29/17 09:00 08/28/17 08:59 07/31/17 08:08 Metoprolol Tartrate (Lopressor) 5 mg Q5MIN X 3 IVP 07/29/17 00:00 08/28/17 00:00 Ondansetron HCl (Zofran) 4 mg Q6H PRN IVP Nausea & Vomiting 07/28/17 15:45 08/27/17 15:44 Polyethylene Glycol (Miralax) 17 gm DAILYPRN PRN ORAL Constipation 07/28/17 15:45 08/27/17 15:44 07/29/17 09:06 Sildenafil Citrate (Revatio) 20 mg TID ORAL 07/30/17 18:00 08/29/17 17:59 07/31/17 13:10 Sitagliptin Phosphate (Januvia) 50 mg DAILY ORAL 07/29/17 09:00 08/28/17 08:59 07/31/17 08:08 Temazepam (Restoril) 15 mg HSPRN PRN ORAL Insomnia 07/28/17 15:45 08/04/17 15:44 Jesús Farrell MD Jul 31, 2017 15:33
[2017-07-31 15:43] VITALS: BP 141/85
[2017-07-31 20:00] VITALS: BP 141/84
[2017-07-31] MEDS: Atorvastatin 20mg tab ORAL SCH (20:41)
--- NOTE | 2017-07-31 23:48 | Cardiology Progress Note ---
Assessment/Plan Assessment/Plan 1. Predominantly right heart failure with associated anasarca, continue lasix and metolazone, creatinine stable, daily weight shows ~5 Ibs loss. 2. Acute on systolic and diastolic congestive heart failure, continue the diuretics. 3. New onset atrial flutter. We will like to continue with rate control. It is not clear how long the patient has been in atrial flutter. She may benefit from a RAMIRO and cardioversion and sought of antiarrhythmic. 4. History of diabetes mellitus. 5. History of hypertension. 6. History of chronic kidney disease. 7. History of COPD. Subjective Subjective Atrial flutter at 116. Objective Last 24 Hour Vital Signs Date Time Temp Pulse Resp B/P (MAP) Pulse Ox O2 Delivery O2 Flow Rate FiO2 07/31/17 20:00 116 07/31/17 20:00 97.3 111 20 141/84 95 Nasal Cannula 2.0 97.3 07/31/17 16:00 114 07/31/17 15:43 97.7 114 20 141/85 94 Nasal Cannula 2.0 97.7 07/31/17 12:00 98.2 111 20 120/59 98 Nasal Cannula 2.0 98.2 07/31/17 12:00 108 07/31/17 08:00 113 07/31/17 08:00 97.6 115 19 143/86 96 Nasal Cannula 2.0 97.6 07/31/17 04:00 110 07/31/17 04:00 97.4 111 20 132/86 96 Nasal Cannula 2.0 97.4 07/31/17 00:00 96.6 100 22 122/89 96 Nasal Cannula 2.0 96.6 07/31/17 00:00 112 Intake and Output 07/30/17 07/31/17 19:00 07:00 Intake Total 950 ml 300 ml Output Total 600 ml Balance 950 ml -300 ml Intake Oral 750 ml IV Total 200 ml Other 300 ml Output Urine Total 600 ml # Voids 15 6 2D Echo: EF 30%,Global LV HK,Sev RA/RV dilation,RVSP 65 mmHg,Mild AR/MR,Grade I LVD Laboratory Tests Test 07/31/17 09:30 White Blood Count 7.4 K/UL (4.8-10.8) Red Blood Count 5.35 M/UL (4.20-5.40) Hemoglobin 13.2 G/DL (12.0-16.0) Hematocrit 45.7 % (37.0-47.0) Mean Corpuscular Volume 85 FL (80-99) Mean Corpuscular Hemoglobin 24.7 PG (27.0-31.0) L Mean Corpuscular Hemoglobin Concent 28.9 G/DL (32.0-36.0) L Red Cell Distribution Width 15.6 % (11.6-14.8) H Platelet Count 267 K/UL (150-450) Mean Platelet Volume 7.5 FL (6.5-10.1) Neutrophils (%) (Auto) 73.2 % (45.0-75.0) Lymphocytes (%) (Auto) 17.2 % (20.0-45.0) L Monocytes (%) (Auto) 6.4 % (1.0-10.0) Eosinophils (%) (Auto) 2.3 % (0.0-3.0) Basophils (%) (Auto) 0.9 % (0.0-2.0) Sodium Level 142 MMOL/L (136-145) Potassium Level 3.3 MMOL/L (3.5-5.1) L Chloride Level 100 MMOL/L (98-107) Carbon Dioxide Level 36 MMOL/L (21-32) H Anion Gap 6 mmol/L (5-15) Blood Urea Nitrogen 41 mg/dL (7-18) H Creatinine 1.4 MG/DL (0.55-1.30) H Estimat Glomerular Filtration Rate 45.8 mL/min (>60) Glucose Level 174 MG/DL (74-106) H Calcium Level 9.2 MG/DL (8.5-10.1) Magnesium Level 1.8 MG/DL (1.8-2.4) Objective GENERAL: The patient is a very unfortunate 66-year-old female, in [id number] respiratory distress. HEENT: Atraumatic and normocephalic. Anicteric. Pupils are equal, round, and reactive to light and accommodation. Extraocular muscles intact. NECK: JVP is elevated at about 15 cm. No carotid bruits. Carotid upstrokes 2+ bilaterally. CARDIOVASCULAR: Normal S1 and S2. Irregularly irregular rhythm. Tachycardic. Positive S3 and S4 gallop. LUNGS: Diminished breath sounds in both bases. ABDOMEN: Distended and nontender. Positive bowel sounds. No hepatosplenomegaly EXTREMITIES: There is 3 to 4+ bilateral edema. NBA HERRERA Jul 31, 2017 23:48
[2017-08-01] VITALS: BP 126/84
[2017-08-01] MEDS: HYDROcodone/Acetamin 10/325 tab ORAL PRN ×2 (00:51→20:00)
[2017-08-01 04:00] VITALS: BP 109/85
[2017-08-01] MEDS: NovoLOG Insulin Flexpen SUBQ SCH ×4 (06:30→21:00)
[2017-08-01 08:00] VITALS: BP 119/89
[2017-08-01 08:48] LABS: BASOPHILS % (AUTO) 2.3 % (0.0-2.0); EOSINOPHILS % (AUTO) 2.2 % (0.0-3.0); HEMATOCRIT 48.5 % (37.0-47.0); HEMOGLOBIN 14.6 G/DL (12.0-16.0); LYMPHOCYTES % (AUTO) 20.2 % (20.0-45.0); MEAN CORPUSCULAR VOLUME 84 FL (80-99); MONOCYTES % (AUTO) 6.3 % (1.0-10.0); PLATELET COUNT 264 K/UL (150-450); RED BLOOD COUNT 5.77 M/UL (4.20-5.40); RED CELL DISTRIBUTION WIDTH 15.7 % (11.6-14.8); WHITE BLOOD COUNT 8.6 K/UL (4.8-10.8)
[2017-08-01] MEDS: Heparin 5000 units/ml inj SUBQ SCH (09:00)
[2017-08-01 09:25] LABS: ALANINE AMINOTRANSFERASE 28 U/L (12-78); ALBUMIN 3.3 G/DL (3.4-5.0); ALBUMIN/GLOBULIN RATIO 0.8 (1.0-2.7); ALKALINE PHOSPHATASE 206 U/L (46-116); ANION GAP 5 mmol/L (5-15); ASPARTATE AMINO TRANSFERASE 37 U/L (15-37); BILIRUBIN,TOTAL 1.2 MG/DL (0.2-1.0); BLOOD UREA NITROGEN 41 mg/dL (7-18); CALCIUM 9.4 MG/DL (8.5-10.1); CARBON DIOXIDE 39 MMOL/L (21-32); CHLORIDE 97 MMOL/L (98-107); CREATININE 1.3 MG/DL (0.55-1.30); POTASSIUM 3.4 MMOL/L (3.5-5.1); SODIUM 141 MMOL/L (136-145)
[2017-08-01 09:36] LABS: BILIRUBIN,DIRECT 0.4 MG/DL (0.0-0.3)
--- NOTE | 2017-08-01 09:56 | General Progress Note ---
Assessment/Plan Problem List: (1) Edema ICD Codes: R60.9 - Edema, unspecified SNOMED: 253596334 (2) HTN (hypertension) ICD Codes: I10 - HTN (hypertension) SNOMED: 15227006 (3) DM (diabetes mellitus) ICD Codes: E11.9 - DM (diabetes mellitus) SNOMED: 70009245 (4) CHF exacerbation ICD Codes: I50.9 - Heart failure, unspecified SNOMED: 75716248 Qualifiers: Qualified Codes: I50.9 - Heart failure, unspecified (5) Atrial fibrillation with rapid ventricular response ICD Codes: I48.91 - Unspecified atrial fibrillation SNOMED: 435105251238766 Status: unchanged Assessment/Plan o2 pulm tx ot pt diet cbc bmp am dc plan w hh Subjective Constitutional: Reports: weakness Respiratory: Reports: shortness of breath Allergies: Coded Allergies: ASPIRIN (Verified Allergy, Intermediate, Hives, 01/06/13) PENICILLINS (Verified Allergy, Intermediate, Hives, 01/06/13) All Systems: reviewed and negative except above Subjective o2nc calm Objective Last 24 Hour Vital Signs Date Time Temp Pulse Resp B/P (MAP) Pulse Ox O2 Delivery O2 Flow Rate FiO2 08/01/17 08:00 113 08/01/17 08:00 96.0 108 20 119/89 98 Nasal Cannula 2.0 96.0 08/01/17 04:00 98.1 111 20 109/85 96 Nasal Cannula 2.0 98.1 08/01/17 04:00 109 08/01/17 00:46 112 126/84 08/01/17 00:00 97.8 112 20 126/84 92 Nasal Cannula 2.0 97.8 08/01/17 00:00 114 07/31/17 20:00 116 07/31/17 20:00 97.3 111 20 141/84 95 Nasal Cannula 2.0 97.3 07/31/17 16:00 114 07/31/17 15:43 97.7 114 20 141/85 94 Nasal Cannula 2.0 97.7 07/31/17 12:00 98.2 111 20 120/59 98 Nasal Cannula 2.0 98.2 07/31/17 12:00 108 Intake and Output 07/31/17 08/01/17 19:00 07:00 Intake Total 1060 ml Output Total 1300 ml 600 ml Balance -240 ml -600 ml Intake Oral 960 ml IV Total 100 ml Output Urine Total 1300 ml 600 ml # Voids 6 2 Laboratory Tests 08/01/17 08:00: White Blood Count 8.6, Red Blood Count 5.77H, Hemoglobin 14.6, Hematocrit 48.5H , Mean Corpuscular Volume 84, Mean Corpuscular Hemoglobin 25.3L, Mean Corpuscular Hemoglobin Concent 30.1L, Red Cell Distribution Width 15.7H, Platelet Count 264, Mean Platelet Volume 7.8, Neutrophils (%) (Auto) 69.0, Lymphocytes (%) (Auto) 20.2, Monocytes (%) (Auto) 6.3, Eosinophils (%) (Auto) 2.2, Basophils (%) (Auto) 2.3H, Sodium Level 141, Potassium Level 3.4L, Chloride Level 97L, Carbon Dioxide Level 39H, Anion Gap 5, Blood Urea Nitrogen 41H, Creatinine 1.3, Estimat Glomerular Filtration Rate 50.1, Glucose Level 109H , Calcium Level 9.4, Total Bilirubin 1.2H, Direct Bilirubin 0.4H, Aspartate Amino Transf (AST/SGOT) 37, Alanine Aminotransferase (ALT/SGPT) 28, Alkaline Phosphatase 206H, Pro-B-Type Natriuretic Peptide 1059H, Total Protein 7.2, Albumin 3.3L, Globulin 3.9, Albumin/Globulin Ratio 0.8L Height (Feet): 5 Height (Inches): 3.00 Weight (Pounds): 294 General Appearance: lethargic EENT: normal ENT inspection Neck: normal alignment Cardiovascular: normal peripheral pulses, normal rate, regular rhythm Respiratory/Chest: chest wall non-tender, lungs clear, normal breath sounds Abdomen: normal bowel sounds, non tender, soft Extremities: normal inspection Edema: no edema noted Arm (L), no edema noted Arm (R), no edema noted Leg (L), no edema noted Leg (R), no edema noted Pedal (L), no edema noted Pedal (R), no edema noted Generalized Neurologic: responsive, motor weakness Skin: normal pigmentation, warm/dry CHANA LUBIN Aug 01, 2017 09:56
[2017-08-01] MEDS: sitaGLIPtin 50mg tab ORAL SCH (09:57)
[2017-08-01] MEDS: Revatio 20mg tab ORAL SCH ×3 (09:58→17:11)
[2017-08-01] MEDS: Eliquis 2.5mg tablet ORAL SCH ×2 (09:58→17:11)
--- NOTE | 2017-08-01 11:44 | Pulmonology Progress Note ---
Assessment/Plan Problems: (1) CHF exacerbation (2) Atrial fibrillation with rapid ventricular response (3) Pulmonary hypertension (4) HTN (hypertension) (5) DM (diabetes mellitus) Assessment/Plan had a run of Vtach this morning Mg level being checked continue diuretics improving on Sidenefil pulmonary edema improved heart rate controlled, still in atrial flutter sliding scale diabetic diet. anticoagulation by cardiology pain management symptomatic treatment. Subjective ROS Limited/Unobtainable: No Constitutional: Reports: no symptoms Respiratory: Reports: no symptoms Allergies: Coded Allergies: ASPIRIN (Verified Allergy, Intermediate, Hives, 01/06/13) PENICILLINS (Verified Allergy, Intermediate, Hives, 01/06/13) Objective Last 24 Hour Vital Signs Date Time Temp Pulse Resp B/P (MAP) Pulse Ox O2 Delivery O2 Flow Rate FiO2 08/01/17 09:58 113 119/89 08/01/17 08:00 113 08/01/17 08:00 96.0 108 20 119/89 98 Nasal Cannula 2.0 96.0 08/01/17 04:00 98.1 111 20 109/85 96 Nasal Cannula 2.0 98.1 08/01/17 04:00 109 08/01/17 00:46 112 126/84 08/01/17 00:00 97.8 112 20 126/84 92 Nasal Cannula 2.0 97.8 08/01/17 00:00 114 07/31/17 20:00 116 07/31/17 20:00 97.3 111 20 141/84 95 Nasal Cannula 2.0 97.3 07/31/17 16:00 114 07/31/17 15:43 97.7 114 20 141/85 94 Nasal Cannula 2.0 97.7 07/31/17 12:00 98.2 111 20 120/59 98 Nasal Cannula 2.0 98.2 07/31/17 12:00 108 Intake and Output 07/31/17 08/01/17 19:00 07:00 Intake Total 1060 ml Output Total 1300 ml 600 ml Balance -240 ml -600 ml Intake Oral 960 ml IV Total 100 ml Output Urine Total 1300 ml 600 ml # Voids 6 2 Objective General Appearance: obese Lines, tubes and drains: peripheral HEENT: normocephalic, atraumatic Neck: non-tender, normal alignment Respiratory/Chest: crackles/rales Breasts: no masses Cardiovascular/Chest: normal peripheral pulses, normal rate Abdomen: normal bowel sounds, non tender Genitourinary/Rectal: normal genital exam Extremities: normal range of motion, non-tender, moderate edema Skin Exam: normal pigmentation 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: 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-XII grossly normal Laboratory Tests 08/01/17 07:00: Magnesium Level 1.6L 08/01/17 08:00: White Blood Count 8.6, Red Blood Count 5.77H, Hemoglobin 14.6, Hematocrit 48.5H , Mean Corpuscular Volume 84, Mean Corpuscular Hemoglobin 25.3L, Mean Corpuscular Hemoglobin Concent 30.1L, Red Cell Distribution Width 15.7H, Platelet Count 264, Mean Platelet Volume 7.8, Neutrophils (%) (Auto) 69.0, Lymphocytes (%) (Auto) 20.2, Monocytes (%) (Auto) 6.3, Eosinophils (%) (Auto) 2.2, Basophils (%) (Auto) 2.3H, Sodium Level 141, Potassium Level 3.4L, Chloride Level 97L, Carbon Dioxide Level 39H, Anion Gap 5, Blood Urea Nitrogen 41H, Creatinine 1.3, Estimat Glomerular Filtration Rate 50.1, Glucose Level 109H , Calcium Level 9.4, Total Bilirubin 1.2H, Direct Bilirubin 0.4H, Aspartate Amino Transf (AST/SGOT) 37, Alanine Aminotransferase (ALT/SGPT) 28, Alkaline Phosphatase 206H, Pro-B-Type Natriuretic Peptide 1059H, Total Protein 7.2, Albumin 3.3L, Globulin 3.9, Albumin/Globulin Ratio 0.8L Current Medications Medications (Trade) Dose Ordered Sig/Toya Route PRN Reason Start Time Stop Time Status Last Admin Dose Admin Acetaminophen (Tylenol) 650 mg Q4H PRN ORAL Fever 07/28/17 15:45 08/27/17 15:44 Acetaminophen/ Hydrocodone Bitart ([place] 10/325) 1 tab Q4H PRN ORAL Moderate to Severe Pain 07/28/17 15:45 08/04/17 15:44 08/01/17 00:51 Albuterol/ Ipratropium (Albuterol/ Ipratropium) 3 ml Q4H PRN HHN Shortness of Breath 07/28/17 15:45 08/02/17 15:44 Apixaban (Eliquis) 5 mg BID ORAL 07/28/17 23:45 08/27/17 23:44 08/01/17 09:58 Atorvastatin Calcium (Lipitor) 40 mg QHS ORAL 07/29/17 21:00 08/28/17 20:59 07/31/17 20:41 Carvedilol (Coreg) 3.125 mg EVERY 12 HOURS ORAL 08/01/17 00:00 08/31/17 00:00 08/01/17 09:58 Dextrose (Dextrose 50%) 25 ml STAT PRN IV HYPOGLYCEMIA 07/29/17 08:30 08/28/17 08:29 Dextrose (Dextrose 50%) 50 ml STAT PRN IV Hypoglycemia 07/29/17 08:30 08/27/17 15:44 Furosemide (Lasix) 40 mg EVERY 8 HOURS IV 07/28/17 22:00 08/27/17 21:59 08/01/17 06:23 Gabapentin (Neurontin) 300 mg BID ORAL 07/28/17 18:30 08/27/17 18:29 08/01/17 09:58 Heparin Sodium (Porcine) (Heparin 5000 units/ml) 5,000 units EVERY 12 HOURS SUBQ 07/28/17 21:00 08/27/17 20:59 07/31/17 20:46 Insulin Aspart (NovoLOG) BEFORE MEALS AND HS SUBQ 07/28/17 21:00 08/27/17 20:59 07/31/17 20:48 Metolazone (Zaroxolyn) 5 mg DAILY ORAL 07/29/17 09:00 08/28/17 08:59 08/01/17 09:57 Metoprolol Tartrate (Lopressor) 5 mg Q5MIN X 3 IVP 07/29/17 00:00 08/28/17 00:00 Ondansetron HCl (Zofran) 4 mg Q6H PRN IVP Nausea & Vomiting 07/28/17 15:45 08/27/17 15:44 Polyethylene Glycol (Miralax) 17 gm DAILYPRN PRN ORAL Constipation 07/28/17 15:45 08/27/17 15:44 07/29/17 09:06 Sildenafil Citrate (Revatio) 20 mg TID ORAL 07/30/17 18:00 08/29/17 17:59 08/01/17 09:58 Sitagliptin Phosphate (Januvia) 50 mg DAILY ORAL 07/29/17 09:00 08/28/17 08:59 08/01/17 09:57 Temazepam (Restoril) 15 mg HSPRN PRN ORAL Insomnia 07/28/17 15:45 08/04/17 15:44 Jesús Farrell MD Aug 01, 2017 11:43
[2017-08-01 12:00] VITALS: BP 131/60
[2017-08-01 16:00] VITALS: BP 127/80
[2017-08-01] MEDS ORDERED: Digoxin 0.5mg/2ml Inj IVP ONE (17:14)
[2017-08-01] MEDS: Metoprolol 5mg/5ml Inj IVP SCH ×3 (17:14→17:43)
--- NOTE | 2017-08-01 17:18 | Cardiology Progress Note ---
Assessment/Plan Assessment/Plan 1. Predominantly right heart failure with associated anasarca, continue lasix and metolazone, creatinine downtrending, now 1.3. 2. Acute on systolic and diastolic congestive heart failure, continue the diuretics. 3. New onset atrial flutter, rapid digitalization, agreed to RAMIRO and cardioversion on Thursday. Will discuss with Kyler her son. 4. History of diabetes mellitus. 5. History of hypertension. 6. History of chronic kidney disease. 7. History of COPD. Subjective Subjective Atrial flutter with 2:1 AV block at 110. Objective Last 24 Hour Vital Signs Date Time Temp Pulse Resp B/P (MAP) Pulse Ox O2 Delivery O2 Flow Rate FiO2 08/01/17 16:00 97.9 117 20 127/80 97 Nasal Cannula 2.0 97.9 08/01/17 16:00 117 08/01/17 12:00 96.2 111 20 131/60 96 Nasal Cannula 2.0 96.2 08/01/17 12:00 111 08/01/17 09:58 113 119/89 08/01/17 08:00 113 08/01/17 08:00 96.0 108 20 119/89 98 Nasal Cannula 2.0 96.0 08/01/17 04:00 98.1 111 20 109/85 96 Nasal Cannula 2.0 98.1 08/01/17 04:00 109 08/01/17 00:46 112 126/84 08/01/17 00:00 97.8 112 20 126/84 92 Nasal Cannula 2.0 97.8 08/01/17 00:00 114 07/31/17 20:00 116 07/31/17 20:00 97.3 111 20 141/84 95 Nasal Cannula 2.0 97.3 Intake and Output 07/31/17 08/01/17 19:00 07:00 Intake Total 1060 ml Output Total 1300 ml 600 ml Balance -240 ml -600 ml Intake Oral 960 ml IV Total 100 ml Output Urine Total 1300 ml 600 ml # Voids 6 2 2D Echo: EF 30%,Global LV HK,Sev RA/RV dilation,RVSP 65 mmHg,Mild AR/MR,Grade I LVD Laboratory Tests Test 08/01/17 07:00 08/01/17 08:00 Magnesium Level 1.6 MG/DL (1.8-2.4) L White Blood Count 8.6 K/UL (4.8-10.8) Red Blood Count 5.77 M/UL (4.20-5.40) H Hemoglobin 14.6 G/DL (12.0-16.0) Hematocrit 48.5 % (37.0-47.0) H Mean Corpuscular Volume 84 FL (80-99) Mean Corpuscular Hemoglobin 25.3 PG (27.0-31.0) L Mean Corpuscular Hemoglobin Concent 30.1 G/DL (32.0-36.0) L Red Cell Distribution Width 15.7 % (11.6-14.8) H Platelet Count 264 K/UL (150-450) Mean Platelet Volume 7.8 FL (6.5-10.1) Neutrophils (%) (Auto) 69.0 % (45.0-75.0) Lymphocytes (%) (Auto) 20.2 % (20.0-45.0) Monocytes (%) (Auto) 6.3 % (1.0-10.0) Eosinophils (%) (Auto) 2.2 % (0.0-3.0) Basophils (%) (Auto) 2.3 % (0.0-2.0) H Sodium Level 141 MMOL/L (136-145) Potassium Level 3.4 MMOL/L (3.5-5.1) L Chloride Level 97 MMOL/L (98-107) L Carbon Dioxide Level 39 MMOL/L (21-32) H Anion Gap 5 mmol/L (5-15) Blood Urea Nitrogen 41 mg/dL (7-18) H Creatinine 1.3 MG/DL (0.55-1.30) Estimat Glomerular Filtration Rate 50.1 mL/min (>60) Glucose Level 109 MG/DL (74-106) H Calcium Level 9.4 MG/DL (8.5-10.1) Total Bilirubin 1.2 MG/DL (0.2-1.0) H Direct Bilirubin 0.4 MG/DL (0.0-0.3) H Aspartate Amino Transf (AST/SGOT) 37 U/L (15-37) Alanine Aminotransferase (ALT/SGPT) 28 U/L (12-78) Alkaline Phosphatase 206 U/L (46-116) H Pro-B-Type Natriuretic Peptide 1059 pg/mL (0-125) H Total Protein 7.2 G/DL (6.4-8.2) Albumin 3.3 G/DL (3.4-5.0) L Globulin 3.9 g/dL Albumin/Globulin Ratio 0.8 (1.0-2.7) L Objective GENERAL: The patient is a very unfortunate 66-year-old female, in [id number] respiratory distress. HEENT: Atraumatic and normocephalic. Anicteric. Pupils are equal, round, and reactive to light and accommodation. Extraocular muscles intact. NECK: JVP is elevated at about 15 cm. No carotid bruits. Carotid upstrokes 2+ bilaterally. CARDIOVASCULAR: Normal S1 and S2. Irregularly irregular rhythm. Tachycardic. Positive S3 and S4 gallop. LUNGS: Diminished breath sounds in both bases. ABDOMEN: Distended and nontender. Positive bowel sounds. No hepatosplenomegaly EXTREMITIES: There is 2+ bilateral edema. NBA HERRERA Aug 01, 2017 17:18
[2017-08-01] MEDS ORDERED: Digoxin 0.5mg/2ml Inj IVP SCH ×2 (17:45→23:00)
[2017-08-01 20:00] VITALS: BP 119/89
[2017-08-01] MEDS: Atorvastatin 20mg tab ORAL SCH (21:44)
[2017-08-01] MEDS: Carvedilol 6.25mg Tab ORAL SCH (21:45)
[2017-08-02] VITALS: BP 126/71
[2017-08-02 04:00] VITALS: BP 116/79
[2017-08-02] MEDS ORDERED: Digoxin 0.5mg/2ml Inj IVP SCH (05:00)
[2017-08-02] MEDS: HYDROcodone/Acetamin 10/325 tab ORAL PRN ×2 (06:21→20:44)
[2017-08-02] MEDS: NovoLOG Insulin Flexpen SUBQ SCH ×4 (06:28→21:00)
[2017-08-02 08:20] VITALS: BP 124/70
[2017-08-02] MEDS: Revatio 20mg tab ORAL SCH ×3 (08:47→17:00)
--- NOTE | 2017-08-02 08:47 | General Progress Note ---
Assessment/Plan Problem List: (1) Edema ICD Codes: R60.9 - Edema, unspecified SNOMED: 510173569 (2) HTN (hypertension) ICD Codes: I10 - HTN (hypertension) SNOMED: 96632993 (3) DM (diabetes mellitus) ICD Codes: E11.9 - DM (diabetes mellitus) SNOMED: 48523400 (4) CHF exacerbation ICD Codes: I50.9 - Heart failure, unspecified SNOMED: 98612340 Qualifiers: Qualified Codes: I50.9 - Heart failure, unspecified (5) Atrial fibrillation with rapid ventricular response ICD Codes: I48.91 - Unspecified atrial fibrillation SNOMED: 761773476636731 Status: unchanged Assessment/Plan o2 pulm tx ot pt diet cbc bmp am dc plan w hh Subjective Constitutional: Reports: weakness Respiratory: Reports: shortness of breath Allergies: Coded Allergies: ASPIRIN (Verified Allergy, Intermediate, Hives, 01/06/13) PENICILLINS (Verified Allergy, Intermediate, Hives, 01/06/13) All Systems: reviewed and negative except above Subjective o2nc calm Objective Last 24 Hour Vital Signs Date Time Temp Pulse Resp B/P (MAP) Pulse Ox O2 Delivery O2 Flow Rate FiO2 08/02/17 05:21 92 08/02/17 04:00 97.7 90 20 116/79 92 Nasal Cannula 2.0 97.7 08/02/17 04:00 92 08/02/17 00:00 96.3 112 22 126/71 98 Nasal Cannula 2.0 96.3 08/02/17 00:00 89 08/01/17 23:27 115 08/01/17 21:45 115 127/80 08/01/17 20:00 115 08/01/17 20:00 96.0 108 18 119/89 98 Nasal Cannula 2.0 96.0 08/01/17 18:31 115 08/01/17 17:43 108 127/80 08/01/17 17:32 115 127/80 08/01/17 17:14 117 127/80 08/01/17 16:00 97.9 117 20 127/80 97 Nasal Cannula 2.0 97.9 08/01/17 16:00 117 08/01/17 12:00 96.2 111 20 131/60 96 Nasal Cannula 2.0 96.2 08/01/17 12:00 111 08/01/17 09:58 113 119/89 Intake and Output 08/01/17 08/02/17 19:00 07:00 Intake Total 790 ml 180 ml Output Total 5 ml 1200 ml Balance 785 ml -1020 ml Intake Oral 790 ml 180 ml Output Urine Total 5 ml 1200 ml # Voids 2 3 # Bowel Movements 1 2 Height (Feet): 5 Height (Inches): 3.00 Weight (Pounds): 290 General Appearance: alert EENT: normal ENT inspection Neck: normal alignment Cardiovascular: normal peripheral pulses, normal rate, regular rhythm Respiratory/Chest: chest wall non-tender, lungs clear, decreased breath sounds Abdomen: normal bowel sounds, non tender, soft Extremities: normal inspection Edema: 1+ Arm (L), 1+ Arm (R), 1+ Leg (L), 1+ Leg (R), 1+ Pedal (L), 1+ Pedal ( R), 1+ Generalized Edema: trace edema Neurologic: responsive, motor weakness Skin: normal pigmentation, warm/dry CHANA LUBIN Aug 02, 2017 08:47
[2017-08-02] MEDS: Carvedilol 6.25mg Tab ORAL SCH ×2 (08:48→20:59)
[2017-08-02] MEDS: sitaGLIPtin 50mg tab ORAL SCH (08:48)
[2017-08-02] MEDS: Eliquis 2.5mg tablet ORAL SCH ×2 (08:48→17:00)
[2017-08-02 09:17] LABS: EOSINOPHILS % (AUTO) 1.6 % (0.0-3.0); HEMOGLOBIN 13.3 G/DL (12.0-16.0); MEAN CORPUSCULAR VOLUME 87 FL (80-99); MONOCYTES % (AUTO) 7.3 % (1.0-10.0); PLATELET COUNT 263 K/UL (150-450); RED BLOOD COUNT 5.41 M/UL (4.20-5.40); RED CELL DISTRIBUTION WIDTH 15.8 % (11.6-14.8); WHITE BLOOD COUNT 8.1 K/UL (4.8-10.8)
[2017-08-02 09:59] LABS: ANION GAP 5 mmol/L (5-15); BLOOD UREA NITROGEN 44 mg/dL (7-18); CALCIUM 8.9 MG/DL (8.5-10.1); CARBON DIOXIDE 39 MMOL/L (21-32); CHLORIDE 98 MMOL/L (98-107); CREATININE 1.3 MG/DL (0.55-1.30); POTASSIUM 3.7 MMOL/L (3.5-5.1); SODIUM 142 MMOL/L (136-145)
--- NOTE | 2017-08-02 10:46 | Pulmonology Progress Note ---
Assessment/Plan Problems: (1) CHF exacerbation (2) Atrial fibrillation with rapid ventricular response (3) Pulmonary hypertension (4) HTN (hypertension) (5) DM (diabetes mellitus) Assessment/Plan had a run of Vtach this morning Mg level being checked, mg supplement 2 gm continue diuretics, improving on Sidenefil pulmonary edema improved heart rate controlled, still in atrial flutter,110 sliding scale diabetic diet. anticoagulation by cardiology pain management symptomatic treatment. Subjective ROS Limited/Unobtainable: No Interval Events: diuresing well, was confused earlier Constitutional: Reports: no symptoms HEENT: Repors: no symptoms Allergies: Coded Allergies: ASPIRIN (Verified Allergy, Intermediate, Hives, 01/06/13) PENICILLINS (Verified Allergy, Intermediate, Hives, 01/06/13) Objective Last 24 Hour Vital Signs Date Time Temp Pulse Resp B/P (MAP) Pulse Ox O2 Delivery O2 Flow Rate FiO2 08/02/17 08:48 69 124/70 08/02/17 08:20 97.3 69 18 124/70 Nasal Cannula 97.3 08/02/17 05:21 92 08/02/17 04:00 97.7 90 20 116/79 92 Nasal Cannula 2.0 97.7 08/02/17 04:00 92 08/02/17 00:00 96.3 112 22 126/71 98 Nasal Cannula 2.0 96.3 08/02/17 00:00 89 08/01/17 23:27 115 08/01/17 21:45 115 127/80 08/01/17 20:00 115 08/01/17 20:00 96.0 108 18 119/89 98 Nasal Cannula 2.0 96.0 08/01/17 18:31 115 08/01/17 17:43 108 127/80 08/01/17 17:32 115 127/80 08/01/17 17:14 117 127/80 08/01/17 16:00 97.9 117 20 127/80 97 Nasal Cannula 2.0 97.9 08/01/17 16:00 117 08/01/17 12:00 96.2 111 20 131/60 96 Nasal Cannula 2.0 96.2 08/01/17 12:00 111 Intake and Output 08/01/17 08/02/17 19:00 07:00 Intake Total 790 ml 180 ml Output Total 5 ml 1200 ml Balance 785 ml -1020 ml Intake Oral 790 ml 180 ml Output Urine Total 5 ml 1200 ml # Voids 2 3 # Bowel Movements 1 2 Objective General Appearance: obese Lines, tubes and drains: peripheral HEENT: normocephalic, atraumatic Neck: non-tender, normal alignment Respiratory/Chest: crackles/rales Breasts: no masses Cardiovascular/Chest: normal peripheral pulses, normal rate Abdomen: normal bowel sounds, non tender Genitourinary/Rectal: normal genital exam Extremities: normal range of motion, non-tender, moderate edema Skin Exam: normal pigmentation 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 Laboratory Tests 08/02/17 07:35: White Blood Count 8.1, Red Blood Count 5.41H, Hemoglobin 13.3, Hematocrit 47.0, Mean Corpuscular Volume 87, Mean Corpuscular Hemoglobin 24.6L, Mean Corpuscular Hemoglobin Concent 28.4L, Red Cell Distribution Width 15.8H, Platelet Count 263 , Mean Platelet Volume 8.4, Neutrophils (%) (Auto) 68.0, Lymphocytes (%) (Auto) 22.0, Monocytes (%) (Auto) 7.3, Eosinophils (%) (Auto) 1.6, Basophils (%) (Auto ) 1.0, Sodium Level 142, Potassium Level 3.7, Chloride Level 98, Carbon Dioxide Level 39H, Anion Gap 5, Blood Urea Nitrogen 44H, Creatinine 1.3, Estimat Glomerular Filtration Rate 50.1, Glucose Level 107H, Calcium Level 8.9 Current Medications Medications (Trade) Dose Ordered Sig/Toya Route PRN Reason Start Time Stop Time Status Last Admin Dose Admin Acetaminophen (Tylenol) 650 mg Q4H PRN ORAL Fever 07/28/17 15:45 08/27/17 15:44 Acetaminophen/ Hydrocodone Bitart ([place] 10/325) 1 tab Q4H PRN ORAL Moderate to Severe Pain 07/28/17 15:45 08/04/17 15:44 08/02/17 06:21 Albuterol/ Ipratropium (Albuterol/ Ipratropium) 3 ml Q4H PRN HHN Shortness of Breath 07/28/17 15:45 08/02/17 15:44 Apixaban (Eliquis) 5 mg BID ORAL 07/28/17 23:45 08/27/17 23:44 08/02/17 08:48 Atorvastatin Calcium (Lipitor) 40 mg QHS ORAL 07/29/17 21:00 08/28/17 20:59 08/01/17 21:44 Carvedilol (Coreg) 6.25 mg EVERY 12 HOURS ORAL 08/01/17 21:00 08/31/17 20:59 08/02/17 08:48 Dextrose (Dextrose 50%) 25 ml STAT PRN IV HYPOGLYCEMIA 07/29/17 08:30 08/28/17 08:29 Dextrose (Dextrose 50%) 50 ml STAT PRN IV Hypoglycemia 07/29/17 08:30 08/27/17 15:44 Furosemide (Lasix) 40 mg EVERY 8 HOURS IV 07/28/17 22:00 08/27/17 21:59 08/02/17 06:16 Gabapentin (Neurontin) 300 mg BID ORAL 07/28/17 18:30 08/27/17 18:29 08/02/17 08:48 Insulin Aspart (NovoLOG) BEFORE MEALS AND HS SUBQ 07/28/17 21:00 08/27/17 20:59 08/02/17 06:28 Metolazone (Zaroxolyn) 5 mg DAILY ORAL 07/29/17 09:00 08/28/17 08:59 08/02/17 08:47 Metoprolol Tartrate (Lopressor) 5 mg Q5MIN X 3 IVP 07/29/17 00:00 08/28/17 00:00 08/01/17 17:43 Ondansetron HCl (Zofran) 4 mg Q6H PRN IVP Nausea & Vomiting 07/28/17 15:45 08/27/17 15:44 Polyethylene Glycol (Miralax) 17 gm DAILYPRN PRN ORAL Constipation 07/28/17 15:45 08/27/17 15:44 07/29/17 09:06 Potassium Chloride (K-Dur) 40 meq DAILY ORAL 08/01/17 13:45 08/31/17 13:44 08/02/17 08:49 Sildenafil Citrate (Revatio) 20 mg TID ORAL 07/30/17 18:00 08/29/17 17:59 08/02/17 08:47 Sitagliptin Phosphate (Januvia) 50 mg DAILY ORAL 07/29/17 09:00 08/28/17 08:59 08/02/17 08:48 Temazepam (Restoril) 15 mg HSPRN PRN ORAL Insomnia 07/28/17 15:45 08/04/17 15:44 Jesús Farrell MD Aug 02, 2017 10:46
[2017-08-02 12:00] VITALS: BP 120/73
[2017-08-02 16:00] VITALS: BP 126/73
--- NOTE | 2017-08-02 19:44 | Cardiology Progress Note ---
Assessment/Plan Assessment/Plan 1. Predominantly right heart failure with associated anasarca, continue lasix and metolazone, creatinine stable at 1.3. 2. Acute on systolic and diastolic congestive heart failure, continue the diuretics. BNP not affected likely due to arrhythmia and heart failure in combination. 3. New onset atrial flutter, rapid digitalization was not successful, proceed with RAMIRO and cardioversion in am. 4. History of diabetes mellitus. 5. History of hypertension. 6. History of chronic kidney disease. 7. History of COPD. Subjective Subjective Atrial flutter at 114. Objective Last 24 Hour Vital Signs Date Time Temp Pulse Resp B/P (MAP) Pulse Ox O2 Delivery O2 Flow Rate FiO2 08/02/17 16:00 97.9 90 17 126/73 98 Nasal Cannula 2.0 97.9 08/02/17 16:00 110 08/02/17 12:00 71 08/02/17 12:00 97.5 84 19 120/73 Nasal Cannula 97.5 08/02/17 08:48 69 124/70 08/02/17 08:20 97.3 69 18 124/70 Nasal Cannula 97.3 08/02/17 08:00 101 08/02/17 05:21 92 08/02/17 04:00 97.7 90 20 116/79 92 Nasal Cannula 2.0 97.7 08/02/17 04:00 92 08/02/17 00:00 96.3 112 22 126/71 98 Nasal Cannula 2.0 96.3 08/02/17 00:00 89 08/01/17 23:27 115 08/01/17 21:45 115 127/80 08/01/17 20:00 115 08/01/17 20:00 96.0 108 18 119/89 98 Nasal Cannula 2.0 96.0 Intake and Output 08/01/17 08/02/17 19:00 07:00 Intake Total 790 ml 180 ml Output Total 5 ml 1200 ml Balance 785 ml -1020 ml Intake Oral 790 ml 180 ml Output Urine Total 5 ml 1200 ml # Voids 2 3 # Bowel Movements 1 2 2D Echo: EF 30%,Global LV HK,Sev RA/RV dilation,RVSP 65 mmHg,Mild AR/MR,Grade I LVD Laboratory Tests Test 08/02/17 07:35 White Blood Count 8.1 K/UL (4.8-10.8) Red Blood Count 5.41 M/UL (4.20-5.40) H Hemoglobin 13.3 G/DL (12.0-16.0) Hematocrit 47.0 % (37.0-47.0) Mean Corpuscular Volume 87 FL (80-99) Mean Corpuscular Hemoglobin 24.6 PG (27.0-31.0) L Mean Corpuscular Hemoglobin Concent 28.4 G/DL (32.0-36.0) L Red Cell Distribution Width 15.8 % (11.6-14.8) H Platelet Count 263 K/UL (150-450) Mean Platelet Volume 8.4 FL (6.5-10.1) Neutrophils (%) (Auto) 68.0 % (45.0-75.0) Lymphocytes (%) (Auto) 22.0 % (20.0-45.0) Monocytes (%) (Auto) 7.3 % (1.0-10.0) Eosinophils (%) (Auto) 1.6 % (0.0-3.0) Basophils (%) (Auto) 1.0 % (0.0-2.0) Sodium Level 142 MMOL/L (136-145) Potassium Level 3.7 MMOL/L (3.5-5.1) Chloride Level 98 MMOL/L (98-107) Carbon Dioxide Level 39 MMOL/L (21-32) H Anion Gap 5 mmol/L (5-15) Blood Urea Nitrogen 44 mg/dL (7-18) H Creatinine 1.3 MG/DL (0.55-1.30) Estimat Glomerular Filtration Rate 50.1 mL/min (>60) Glucose Level 107 MG/DL (74-106) H Calcium Level 8.9 MG/DL (8.5-10.1) Objective GENERAL: The patient is a very unfortunate 66-year-old female, in [id number]-[id number] respiratory distress. HEENT: Atraumatic and normocephalic. Anicteric. Pupils are equal, round, and reactive to light and accommodation. Extraocular muscles intact. NECK: JVP is elevated at about 15 cm. No carotid bruits. Carotid upstrokes 2+ bilaterally. CARDIOVASCULAR: Normal S1 and S2. Irregularly irregular rhythm. Tachycardic. No murmurs, gallop or rubs. LUNGS: Diminished breath sounds in both bases. ABDOMEN: Distended and nontender. Positive bowel sounds. No hepatosplenomegaly EXTREMITIES: There is 2+ bilateral edema. NBA HERRERA Aug 02, 2017 19:44
[2017-08-02 20:00] VITALS: BP 123/64
[2017-08-02] MEDS: Atorvastatin 20mg tab ORAL SCH (20:58)
[2017-08-03] VITALS (24 sets, daily range): BP systolic 114–163; BP diastolic 66–122
[2017-08-03] MEDS: NovoLOG Insulin Flexpen SUBQ SCH ×3 (06:21→20:48)
--- NOTE | 2017-08-03 07:45 | Cardiology Progress Note ---
Assessment/Plan Assessment/Plan 1. Predominantly right heart failure with associated anasarca, continue lasix and metolazone, creatinine stable at 1.3. 2. Acute on systolic and diastolic congestive heart failure, continue the diuretics. BNP not affected likely due to arrhythmia and heart failure in combination. 3. New onset atrial flutter, rapid digitalization was not successful, signed the consent for RAMIRO and cardioversion now. Will decide about placing her on amiodarone following the procedure. 4. History of diabetes mellitus. 5. History of hypertension. 6. History of chronic kidney disease. 7. History of COPD. Subjective Subjective Atrial flutter at 92. Objective Last 24 Hour Vital Signs Date Time Temp Pulse Resp B/P (MAP) Pulse Ox O2 Delivery O2 Flow Rate FiO2 08/03/17 04:00 110 08/03/17 04:00 97.5 82 22 139/71 98 Nasal Cannula 4.0 97.5 08/03/17 02:55 87 08/03/17 00:00 97.0 102 20 129/70 97 Nasal Cannula 2.0 97.0 08/03/17 00:00 97 08/02/17 20:59 110 126/73 08/02/17 20:00 101 08/02/17 20:00 97.0 113 20 123/64 90 Nasal Cannula 2.0 97.0 08/02/17 16:00 97.9 90 17 126/73 98 Nasal Cannula 2.0 97.9 08/02/17 16:00 110 08/02/17 12:00 71 08/02/17 12:00 97.5 84 19 120/73 Nasal Cannula 97.5 08/02/17 08:48 69 124/70 08/02/17 08:20 97.3 69 18 124/70 Nasal Cannula 97.3 08/02/17 08:00 101 Intake and Output 08/02/17 08/03/17 19:00 07:00 Intake Total 50 ml Balance 50 ml Intake Oral 50 ml # Voids 7 # Bowel Movements 4 2D Echo: EF 30%,Global LV HK,Sev RA/RV dilation,RVSP 65 mmHg,Mild AR/MR,Grade I LVD Objective GENERAL: The patient is a very unfortunate 66-year-old female, in [id number] respiratory distress. HEENT: Atraumatic and normocephalic. Anicteric. Pupils are equal, round, and reactive to light and accommodation. Extraocular muscles intact. NECK: JVP is elevated at about 15 cm. No carotid bruits. Carotid upstrokes 2+ bilaterally. CARDIOVASCULAR: Normal S1 and S2. Irregularly irregular rhythm. Tachycardic. No murmurs, gallop or rubs. LUNGS: Diminished breath sounds in both bases. ABDOMEN: Distended and nontender. Positive bowel sounds. No hepatosplenomegaly EXTREMITIES: There is 2+ bilateral edema. NBA HERRERA Aug 03, 2017 07:45
--- NOTE | 2017-08-03 07:51 | Anethesia Preoperative Eval ---
Anesthesia Pre-op PMH/ROS General Date of Evaluation: Aug 03, 2017 Time of Evaluation: 07:43 Anesthesiologist: Shai ASA Score: ASA 3 Mallampati Score Class I : Soft palate, uvula, fauces, pillars visible Class II: Soft palate, uvula, fauces visible Class III: Soft palate, base of uvula visible Class IV: Only hard plate visible Mallampati Classification: Class III Surgeon: Dre Diagnosis: Atrial flatter Surgical Procedure: RAMIRO cardioversion Anesthesia History: none Social History: smoking - h/o Family History: no anesthesia problems Allergies: Coded Allergies: ASPIRIN (Verified Allergy, Intermediate, Hives, 01/06/13) PENICILLINS (Verified Allergy, Intermediate, Hives, 01/06/13) Past Medical History Cardiovascular: Reports: HTN, arrhythmia - A Fib, other - Pulmonary HTN, CHF; Denies: CAD, NV, valve dz Pulmonary: Reports: COPD, MIGUEL Gastrointestinal/Genitourinary: Reports: GERD, CRI; Denies: ESRD, other Neurologic/Psychiatric: Reports: CVA, depression/anxiety; Denies: dementia, TIA, other Endocrine: Reports: DM; Denies: hypothyroidism, steroids, other HEENT: Denies: cataract (L), cataract (R), glaucoma, ATQASUK (L), ATQASUK (R), other Hematology/Immune: Reports: DVT - h/o; Denies: anemia, bleeding disorder, other Musculoskeletal/Integumentary: Reports: edema, other - chronic wound Other: obesity - Morbid obesity PMH Narrative: as above admitted wth SOB new onset AF, PSxH Narrative: C- section Anesthesia Pre-op Phys. Exam Physician Exam Last Vital Signs Date Time Temp Pulse Resp B/P (MAP) Pulse Ox O2 Delivery O2 Flow Rate FiO2 08/03/17 04:00 110 08/03/17 04:00 97.5 22 139/71 98 Nasal Cannula 4.0 97.5 Constitutional: other - Mild SOB Neurologic: CN 2-12 intact Cardiovascular: other - IIR Respiratory: other - Diminished breath sounds Gastrointestinal: other - Morbid obesity Airway Exam Mallampati Score: Class III MO: limited Neck: short ROM: limited Teeth: missing Dentures: no upper, no lower Anesthesia Pre-op A/P Labs see chart Risk Assessment & Plan Assessment: ASA 3 Plan: MAC Status Change Before Surgery: No Pre-Antibiotics Drug: none KT SOTELO M.D. Aug 03, 2017 07:50
[2017-08-03] MEDS ORDERED: fentaNYL 100 mcg/2 mL IV PRN ×2 (08:00→12:00)
--- NOTE | 2017-08-03 08:15 | Pre-Procedure Note/Attestation ---
Pre-Procedure Note/Attestation Complete Prior to Procedure Procedure Narrative: RAMIRO followed by electrical cardioversion if negative for MOHINDER thrombus. Indications for Procedure Pre-Operative Diagnosis: Atrial flutter with RVR not responding to medical therapy. Attestation I attest that I discussed the nature of the procedure; its benefits; risks and complications; and alternatives (and the risks and benefits of such alternatives ), prior to the procedure, with the patient (or the patient's legal advertising sales representative). I attest that, if there was a reasonable possibility of needing a blood transfusion, the patient (or the patient's legal advertising sales representative) was given the [place] Department [employer] standardized written summary, pursuant to the [place] Blood Safety Act ([place] Health and Safety Code # 1645, as amended). I attest that I re-evaluated the patient just prior to the surgery and that there has been no change in the patient's H&P, except as documented below: NBA HERRERA Aug 03, 2017 08:15
--- NOTE | 2017-08-03 08:53 | Brief Operative Note ---
Immediate Post Operative Note Operative Note Chief Complaint: Dyspnea/atrial flutter Pre-op Diagnosis: Atrial flutter with RVR not responding to medical therapy. Procedure: RAMIRO followed by cardioversion Post-op Diagnosis: Successful atrial flutter conversion to normal sinus rhythm. No MOHINDER thrombus Post-op Diagnosis: same as pre-op Surgeon: Nba Erickson MD Net Lead Developer: None Anesthesia: general Specimen: none Complications: yes - Pharyngeal bleed Condition: stable Fluids: None Estimated Blood Loss: minimal Drains: none Implant(s) used?: No NBA ERICKSON Aug 03, 2017 08:53
[2017-08-03 08:59] LABS: BASOPHILS % (AUTO) 1.2 % (0.0-2.0); EOSINOPHILS % (AUTO) 2.5 % (0.0-3.0); HEMATOCRIT 48.7 % (37.0-47.0); HEMOGLOBIN 13.5 G/DL (12.0-16.0); LYMPHOCYTES % (AUTO) 23.5 % (20.0-45.0); MEAN CORPUSCULAR VOLUME 88 FL (80-99); MONOCYTES % (AUTO) 7.6 % (1.0-10.0); NEUTROPHILS % (AUTO) 65.1 % (45.0-75.0); PLATELET COUNT 235 K/UL (150-450); RED BLOOD COUNT 5.56 M/UL (4.20-5.40); WHITE BLOOD COUNT 7.4 K/UL (4.8-10.8)
[2017-08-03 09:14] LABS: ALANINE AMINOTRANSFERASE 26 U/L (12-78); ALBUMIN 3.3 G/DL (3.4-5.0); ALBUMIN/GLOBULIN RATIO 0.9 (1.0-2.7); ALKALINE PHOSPHATASE 180 U/L (46-116); ANION GAP 2 mmol/L (5-15); ASPARTATE AMINO TRANSFERASE 31 U/L (15-37); BILIRUBIN,TOTAL 0.8 MG/DL (0.2-1.0); BLOOD UREA NITROGEN 40 mg/dL (7-18); CALCIUM 8.9 MG/DL (8.5-10.1); CARBON DIOXIDE 42 MMOL/L (21-32); CHLORIDE 98 MMOL/L (98-107); CREATININE 1.3 MG/DL (0.55-1.30); POTASSIUM 4.1 MMOL/L (3.5-5.1); SODIUM 142 MMOL/L (136-145)
[2017-08-03] MEDS ORDERED: Amiodarone 900 MG in D5W 500ml 482 ML IV SCH (09:15)
--- NOTE | 2017-08-03 09:24 | Immediate Post-Op Evaluation ---
Immediate Post-Op Evalulation Immediate Post-Op Evalulation Procedure: James, Cardioversion Date of Evaluation: Aug 03, 2017 Time of Evaluation: 09:16 IV Fluids: 200 Blood Products: none Estimated Blood Loss: none Urinary Output: none Blood Pressure Systolic: 121 Blood Pressure Diastolic: 84 Pulse Rate: 67 Respiratory Rate: 22 O2 Sat by Pulse Oximetry: 98 Temperature (Fahrenheit): 97.4 Pain Score (1-10): 2 Nausea: No Vomiting: No Complications Difficult JAMES probe placement by wool spotter, anesthesia provider was able to place a probe with direct guidance with a finger, after the case in PACU patient complained on sore throat, but no changes in her voice or swallowing, there is small amount of blood stained mucus discharge from her mouth which she is able to clear by spitting. Patient Status: awake, patent, none Hydration Status: adequate KT SOTELO M.D. Aug 03, 2017 09:24
--- NOTE | 2017-08-03 11:59 | Pulmonology Progress Note ---
Assessment/Plan Problems: (1) Atrial fibrillation with rapid ventricular response (2) CHF exacerbation (3) Pulmonary hypertension (4) HTN (hypertension) (5) DM (diabetes mellitus) Assessment/Plan pt had cardioversion this morning in ICU continue diuretics, improving on Sidenefil pulmonary edema improved sliding scale diabetic diet. anticoagulation by cardiology Subjective ROS Limited/Unobtainable: No Interval Events: transferred to ICU to get converted to sinus Allergies: Coded Allergies: ASPIRIN (Verified Allergy, Intermediate, Hives, 01/06/13) PENICILLINS (Verified Allergy, Intermediate, Hives, 01/06/13) Objective Last 24 Hour Vital Signs Date Time Temp Pulse Resp B/P (MAP) Pulse Ox O2 Delivery O2 Flow Rate FiO2 08/03/17 09:45 97.8 68 20 114/70 99 Nasal Cannula 3.0 97.8 08/03/17 09:30 67 15 134/69 99 Nasal Cannula 3.0 08/03/17 09:24 207.3 67 22 98 08/03/17 09:20 71 15 128/77 99 Nasal Cannula 3.0 08/03/17 09:08 75 13 124/71 99 Simple Mask 6.0 08/03/17 09:03 72 16 121/94 98 Simple Mask 6.0 08/03/17 08:58 97.1 73 16 156/66 98 Simple Mask 6.0 97.1 08/03/17 04:00 110 08/03/17 04:00 97.5 82 22 139/71 98 Nasal Cannula 4.0 97.5 08/03/17 02:55 87 08/03/17 00:00 97.0 102 20 129/70 97 Nasal Cannula 2.0 97.0 08/03/17 00:00 97 08/02/17 20:59 110 126/73 08/02/17 20:00 101 08/02/17 20:00 97.0 113 20 123/64 90 Nasal Cannula 2.0 97.0 08/02/17 16:00 97.9 90 17 126/73 98 Nasal Cannula 2.0 97.9 08/02/17 16:00 110 08/02/17 12:00 71 08/02/17 12:00 97.5 84 19 120/73 Nasal Cannula 97.5 Intake and Output 08/02/17 08/03/17 19:00 07:00 Intake Total 50 ml Balance 50 ml Intake Oral 50 ml # Voids 7 # Bowel Movements 4 Objective General Appearance: obese Lines, tubes and drains: peripheral HEENT: normocephalic, atraumatic Neck: non-tender, normal alignment Respiratory/Chest: crackles/rales Breasts: no masses Cardiovascular/Chest: normal peripheral pulses, normal rate Abdomen: normal bowel sounds, non tender Genitourinary/Rectal: normal genital exam Extremities: normal range of motion, non-tender, moderate edema Skin Exam: normal pigmentation Neurologic: utility appraiser II-XII grossly normal Laboratory Tests 08/03/17 07:50: White Blood Count 7.4, Red Blood Count 5.56H, Hemoglobin 13.5, Hematocrit 48.7H , Mean Corpuscular Volume 88, Mean Corpuscular Hemoglobin 24.3L, Mean Corpuscular Hemoglobin Concent 27.8L, Red Cell Distribution Width 16.0H, Platelet Count 235, Mean Platelet Volume 7.7, Neutrophils (%) (Auto) 65.1, Lymphocytes (%) (Auto) 23.5, Monocytes (%) (Auto) 7.6, Eosinophils (%) (Auto) 2.5, Basophils (%) (Auto) 1.2, Sodium Level 142, Potassium Level 4.1, Chloride Level 98, Carbon Dioxide Level 42*H, Anion Gap 2L, Blood Urea Nitrogen 40H, Creatinine 1.3, Estimat Glomerular Filtration Rate 50.1, Glucose Level 95, Calcium Level 8.9, Total Bilirubin 0.8, Aspartate Amino Transf (AST/SGOT) 31, Alanine Aminotransferase (ALT/SGPT) 26, Alkaline Phosphatase 180H, Pro-B-Type Natriuretic Peptide 1112H, Total Protein 6.9, Albumin 3.3L, Globulin 3.6, Albumin/Globulin Ratio 0.9L Current Medications Medications (Trade) Dose Ordered Sig/Toya Route PRN Reason Start Time Stop Time Status Last Admin Dose Admin Acetaminophen (Tylenol) 650 mg Q4H PRN ORAL Fever 07/28/17 15:45 08/27/17 15:44 Acetaminophen/ Hydrocodone Bitart ([place] 10325) 1 tab Q4H PRN ORAL Moderate to Severe Pain 07/28/17 15:45 08/04/17 15:44 08/02/17 20:44 Amiodarone HCl 900 mg/Dextrose 500 ml @ 0 mls/hr Q24H IV 08/03/17 09:15 08/04/17 09:14 08/03/17 09:42 Apixaban (Eliquis) 5 mg BID ORAL 07/28/17 23:45 08/27/17 23:44 08/02/17 17:00 Atorvastatin Calcium (Lipitor) 40 mg QHS ORAL 07/29/17 21:00 08/28/17 20:59 08/02/17 20:58 Dextrose (Dextrose 50%) 25 ml STAT PRN IV HYPOGLYCEMIA 07/29/17 08:30 08/28/17 08:29 Dextrose (Dextrose 50%) 50 ml STAT PRN IV Hypoglycemia 07/29/17 08:30 08/27/17 15:44 Fentanyl Citrate (Sublimaze 100 mcg/2 mL) 25 mcg Q10M PRN IV Moderate Pain (Pain Scale 4-6) 08/03/17 08:00 08/03/17 15:00 Furosemide (Lasix) 40 mg EVERY 8 HOURS IV 07/28/17 22:00 08/27/17 21:59 08/02/17 22:25 Gabapentin (Neurontin) 300 mg BID ORAL 07/28/17 18:30 08/27/17 18:29 08/02/17 17:00 Insulin Aspart (NovoLOG) BEFORE MEALS AND HS SUBQ 07/28/17 21:00 08/27/17 20:59 08/02/17 21:00 Metolazone (Zaroxolyn) 5 mg DAILY ORAL 07/29/17 09:00 08/28/17 08:59 08/02/17 08:47 Ondansetron HCl (Zofran) 4 mg Q6H PRN IVP Nausea & Vomiting 07/28/17 15:45 08/27/17 15:44 Polyethylene Glycol (Miralax) 17 gm DAILYPRN PRN ORAL Constipation 07/28/17 15:45 08/27/17 15:44 07/29/17 09:06 Potassium Chloride (K-Dur) 40 meq DAILY ORAL 08/01/17 13:45 08/31/17 13:44 08/02/17 08:49 Sildenafil Citrate (Revatio) 20 mg TID ORAL 07/30/17 18:00 08/29/17 17:59 08/02/17 17:00 Sitagliptin Phosphate (Januvia) 50 mg DAILY ORAL 07/29/17 09:00 08/28/17 08:59 08/02/17 08:48 Temazepam (Restoril) 15 mg HSPRN PRN ORAL Insomnia 07/28/17 15:45 08/04/17 15:44 Jesús Farrell MD Aug 03, 2017 11:59
[2017-08-03] MEDS ORDERED: Miralax 17gm pkt ORAL PRN (13:00)
--- NOTE | 2017-08-03 14:12 | General Progress Note ---
Assessment/Plan Problem List: (1) Edema ICD Codes: R60.9 - Edema, unspecified SNOMED: 877859194 (2) HTN (hypertension) ICD Codes: I10 - HTN (hypertension) SNOMED: 30823604 (3) DM (diabetes mellitus) ICD Codes: E11.9 - DM (diabetes mellitus) SNOMED: 39865885 (4) CHF exacerbation ICD Codes: I50.9 - Heart failure, unspecified SNOMED: 47447048 Qualifiers: Qualified Codes: I50.9 - Heart failure, unspecified (5) Atrial fibrillation with rapid ventricular response ICD Codes: I48.91 - Unspecified atrial fibrillation SNOMED: 031488516666853 Status: stable, progressing, tolerating diet Assessment/Plan o2 pulm tx ot pt diet cbc bmp am dc plan w hh Subjective Constitutional: Reports: weakness Respiratory: Reports: shortness of breath Allergies: Coded Allergies: ASPIRIN (Verified Allergy, Intermediate, Hives, 01/06/13) PENICILLINS (Verified Allergy, Intermediate, Hives, 01/06/13) All Systems: reviewed and negative except above Subjective o2nc in icu Objective Last 24 Hour Vital Signs Date Time Temp Pulse Resp B/P (MAP) Pulse Ox O2 Delivery O2 Flow Rate FiO2 08/03/17 09:45 97.8 68 20 114/70 99 Nasal Cannula 3.0 97.8 08/03/17 09:30 67 15 134/69 99 Nasal Cannula 3.0 08/03/17 09:24 207.3 67 22 98 08/03/17 09:20 71 15 128/77 99 Nasal Cannula 3.0 08/03/17 09:08 75 13 124/71 99 Simple Mask 6.0 08/03/17 09:03 72 16 121/94 98 Simple Mask 6.0 08/03/17 08:58 97.1 73 16 156/66 98 Simple Mask 6.0 97.1 08/03/17 04:00 110 08/03/17 04:00 97.5 82 22 139/71 98 Nasal Cannula 4.0 97.5 08/03/17 02:55 87 08/03/17 00:00 97.0 102 20 129/70 97 Nasal Cannula 2.0 97.0 08/03/17 00:00 97 08/02/17 20:59 110 126/73 08/02/17 20:00 101 08/02/17 20:00 97.0 113 20 123/64 90 Nasal Cannula 2.0 97.0 08/02/17 16:00 97.9 90 17 126/73 98 Nasal Cannula 2.0 97.9 08/02/17 16:00 110 Intake and Output 08/02/17 08/03/17 19:00 07:00 Intake Total 50 ml Balance 50 ml Intake Oral 50 ml # Voids 7 # Bowel Movements 4 Laboratory Tests 08/03/17 07:50: White Blood Count 7.4, Red Blood Count 5.56H, Hemoglobin 13.5, Hematocrit 48.7H , Mean Corpuscular Volume 88, Mean Corpuscular Hemoglobin 24.3L, Mean Corpuscular Hemoglobin Concent 27.8L, Red Cell Distribution Width 16.0H, Platelet Count 235, Mean Platelet Volume 7.7, Neutrophils (%) (Auto) 65.1, Lymphocytes (%) (Auto) 23.5, Monocytes (%) (Auto) 7.6, Eosinophils (%) (Auto) 2.5, Basophils (%) (Auto) 1.2, Sodium Level 142, Potassium Level 4.1, Chloride Level 98, Carbon Dioxide Level 42*H, Anion Gap 2L, Blood Urea Nitrogen 40H, Creatinine 1.3, Estimat Glomerular Filtration Rate 50.1, Glucose Level 95, Calcium Level 8.9, Total Bilirubin 0.8, Aspartate Amino Transf (AST/SGOT) 31, Alanine Aminotransferase (ALT/SGPT) 26, Alkaline Phosphatase 180H, Pro-B-Type Natriuretic Peptide 1112H, Total Protein 6.9, Albumin 3.3L, Globulin 3.6, Albumin/Globulin Ratio 0.9L Height (Feet): 5 Height (Inches): 3.00 Weight (Pounds): 293 General Appearance: lethargic EENT: normal ENT inspection Neck: normal alignment Cardiovascular: normal peripheral pulses, normal rate, regular rhythm Respiratory/Chest: chest wall non-tender, lungs clear, decreased breath sounds Abdomen: normal bowel sounds, non tender, soft Extremities: normal inspection Edema: 1+ Arm (L), 1+ Arm (R), 1+ Leg (L), 1+ Leg (R), 1+ Pedal (L), 1+ Pedal ( R), 1+ Generalized Edema: trace edema Neurologic: responsive, motor weakness Skin: normal pigmentation, warm/dry CHANA LUBIN Aug 03, 2017 14:12
--- NOTE | 2017-08-03 14:29 | Diagnostic Imaging Report ---
Indication: Dyspnea Comparison: 07/29/2017 A single view chest radiograph was obtained. Findings: Cardiomegaly is present. Lungs are clear with normal vascularity. Bones are unremarkable. IMPRESSION: No acute disease
--- NOTE | 2017-08-03 16:12 | General Progress Note ---
Assessment/Plan Problem List: (1) Soft palate edema ICD Codes: K13.79 - Other lesions of oral mucosa SNOMED: 8955619 (2) Atrial fibrillation with rapid ventricular response ICD Codes: I48.91 - Unspecified atrial fibrillation SNOMED: 412003362413865 (3) Acute chest pain (4) Acute bronchitis (5) DM (diabetes mellitus) ICD Codes: E11.9 - DM (diabetes mellitus) SNOMED: 96781818 (6) CHF exacerbation ICD Codes: I50.9 - Heart failure, unspecified SNOMED: 16613336 Qualifiers: Qualified Codes: I50.9 - Heart failure, unspecified Status: progressing Status Narrative no bleeding this afternoon Assessment/Plan 1. Advance diet from liquid to solid as tolerated. Suggest speech pathology help out by doing eval of swallowing. Swelling should go down without parts counterman sequelae. 2. Please reconsult as needed. 3. Thank for for asking my assistance in the care of this pt. Times with pt 20 minutes, ROR 15 minutes, prep of report 15 minutes Subjective Date patient seen: Aug 03, 2017 Time patient seen: 16:00 - Initial ENT consult ROS Limited/Unobtainable: No - oral bleeding S/P difficult cardic test-hard to pass esop. cath in morbidly obese pt. Constitutional: Reports: other HEENT: Reports: throat swelling, mouth swelling, other - complains of pain right shoulder when moving-present before cardiac test. Is able to swallow without pain as observed by me. Allergies: Coded Allergies: ASPIRIN (Verified Allergy, Intermediate, Hives, 01/06/13) PENICILLINS (Verified Allergy, Intermediate, Hives, 01/06/13) Objective Last 24 Hour Vital Signs Date Time Temp Pulse Resp B/P (MAP) Pulse Ox O2 Delivery O2 Flow Rate FiO2 08/03/17 09:45 97.8 68 20 114/70 99 Nasal Cannula 3.0 97.8 08/03/17 09:30 67 15 134/69 99 Nasal Cannula 3.0 08/03/17 09:24 207.3 67 22 98 08/03/17 09:20 71 15 128/77 99 Nasal Cannula 3.0 08/03/17 09:08 75 13 124/71 99 Simple Mask 6.0 08/03/17 09:03 72 16 121/94 98 Simple Mask 6.0 4/9/18 08:58 97.1 73 16 156/66 98 Simple Mask 6.0 97.1 08/03/17 04:00 110 08/03/17 04:00 97.5 82 22 139/71 98 Nasal Cannula 4.0 97.5 08/03/17 02:55 87 08/03/17 00:00 97.0 102 20 129/70 97 Nasal Cannula 2.0 97.0 08/03/17 00:00 97 08/02/17 20:59 110 126/73 08/02/17 20:00 101 08/02/17 20:00 97.0 113 20 123/64 90 Nasal Cannula 2.0 97.0 08/02/17 16:00 97.9 90 17 126/73 98 Nasal Cannula 2.0 97.9 08/02/17 16:00 110 Intake and Output 08/02/17 08/03/17 19:00 07:00 Intake Total 50 ml Balance 50 ml Intake Oral 50 ml # Voids 7 # Bowel Movements 4 Laboratory Tests 08/03/17 07:50: White Blood Count 7.4, Red Blood Count 5.56H, Hemoglobin 13.5, Hematocrit 48.7H , Mean Corpuscular Volume 88, Mean Corpuscular Hemoglobin 24.3L, Mean Corpuscular Hemoglobin Concent 27.8L, Red Cell Distribution Width 16.0H, Platelet Count 235, Mean Platelet Volume 7.7, Neutrophils (%) (Auto) 65.1, Lymphocytes (%) (Auto) 23.5, Monocytes (%) (Auto) 7.6, Eosinophils (%) (Auto) 2.5, Basophils (%) (Auto) 1.2, Sodium Level 142, Potassium Level 4.1, Chloride Level 98, Carbon Dioxide Level 42*H, Anion Gap 2L, Blood Urea Nitrogen 40H, Creatinine 1.3, Estimat Glomerular Filtration Rate 50.1, Glucose Level 95, Calcium Level 8.9, Total Bilirubin 0.8, Aspartate Amino Transf (AST/SGOT) 31, Alanine Aminotransferase (ALT/SGPT) 26, Alkaline Phosphatase 180H, Pro-B-Type Natriuretic Peptide 1112H, Total Protein 6.9, Albumin 3.3L, Globulin 3.6, Albumin/Globulin Ratio 0.9L Height (Feet): 5 Height (Inches): 3.00 Weight (Pounds): 293 General Appearance: alert, morbidly obese, other - back of mouth, soft palate, small petichae with minimal swelling and epiglottis was normal on indirect mirror exam. Was able to lie pt at 20 degrees without resp.. issues. Swallowing saliva without difficulty. EENT: other - back of mouth, soft palate, small petichae with minimal swelling and epiglottis was normal on indirect mirror exam. Was able to lie pt at 20 degrees without resp.. issues. Swallowing saliva without difficulty. Neck: non-tender, limited range of motion KIRA PARHAM Aug 03, 2017 16:12
--- NOTE | 2017-08-03 17:15 | Procedure Note ---
DATE OF PROCEDURE: 08/03/2017 PROCEDURE: Transesophageal echocardiography. ATTENDING SURGEON: Justice Erickson M.D. PREOPERATIVE DIAGNOSIS: Left atrial appendage thrombus. POSTOPERATIVE FINDINGS: No evidence of left atrial thrombus, no evidence of spontaneous echo contrast within the left atrial cavity. Due to decrease in O2 saturation, measurements of emptying velocity was not feasible. RECOMMENDATION: As the patient does not show any presence of left atrial appendage thrombus, we would like to proceed with electrical cardioversion of atrial flutter. DESCRIPTION OF PROCEDURE: After discussing the risks, benefits, and alternatives of the procedure with the patient and obtaining the signed informed consent, the patient was taken to the OR room 7 in the fasting state. The patient was placed in the left lateral decubitus position. Initially, the bite block was inserted in the presence of anesthesiologist using propofol as a general anesthetic agent. We attempted to pass the endoscopic unit through the pharyngeal area with difficulty that resulted in some minimal blood loss. At the end, this probe was secured in the mid esophageal area. The distance was just about 35 cm from the incisors teeth. After review of the target organ, the probe removed. Suctioning of minimal amount of blood was done in the pharyngeal area by the anesthesiologist. Otherwise, hemodynamically the patient was stable and tolerated the procedure well. CONCLUSION: No evidence of left atrial appendage thrombus with no evidence of spontaneous echo contrast within the left atrial cavity. Justice Erickson M.D. DR: MONICO JOB#: [id number] CC:
[2017-08-03] MEDS: Revatio 20mg tab ORAL SCH ×2 (17:57→18:03)
[2017-08-03] MEDS: Eliquis 2.5mg tablet ORAL SCH (18:02)
[2017-08-03] MEDS: HYDROcodone/Acetamin 10/325 tab ORAL PRN ×2 (18:03→22:02)
--- NOTE | 2017-08-03 18:30 | Procedure Note ---
DATE OF PROCEDURE: 08/03/2017 ELECTRICAL DC CARDIOVERSION OF ATRIAL FLUTTER ATTENDING SURGEON: Justice Erickson M.D., [facility]. PREOPERATIVE DIAGNOSIS: Atrial flutter with rapid ventricular response, not responding to AV michelle agents. DESCRIPTION OF PROCEDURE: Following transesophageal echocardiography, while the patient in deep anesthesia and ruled out for left atrial appendage thrombus, initially 50 joules of biphasic energy applied through the anteroposterior pads, which was unsuccessful. We decided to switch the pads and place it in the anterior chest wall as indicated by the instruction on the pads. At this time, the energy was increased to 200 joules, which successfully converted her atrial flutter to sinus rhythm. CONCLUSION: Successful electrical cardioversion of atrial flutter to sinus rhythm using 200 joules of energy. PLAN: Recommendation to obtain 12-lead electrocardiogram stat. The patient will be placed on amiodarone loading dose of 150 mg followed by amiodarone 1 mg/minute for 6 hours and then 0.5 mg/minute for 18 hours. Justice Erickson M.D. DR: JULIAN JOB#: [id number] CC:
[2017-08-03] MEDS ORDERED: Atorvastatin 20mg tab ORAL SCH (21:00)
[2017-08-04] VITALS (39 sets, daily range): BP systolic 114–172; BP diastolic 54–107
[2017-08-04 05:19] LABS: BASOPHILS % (AUTO) 1.5 % (0.0-2.0); EOSINOPHILS % (AUTO) 0.7 % (0.0-3.0); HEMATOCRIT 45.9 % (37.0-47.0); HEMOGLOBIN 13.8 G/DL (12.0-16.0); LYMPHOCYTES % (AUTO) 14.9 % (20.0-45.0); MEAN CORPUSCULAR VOLUME 86 FL (80-99); MONOCYTES % (AUTO) 7.5 % (1.0-10.0); NEUTROPHILS % (AUTO) 75.5 % (45.0-75.0); PLATELET COUNT 268 K/UL (150-450); RED BLOOD COUNT 5.36 M/UL (4.20-5.40); RED CELL DISTRIBUTION WIDTH 15.9 % (11.6-14.8)
[2017-08-04 05:45] LABS: ANION GAP 2 mmol/L (5-15); BLOOD UREA NITROGEN 40 mg/dL (7-18); CALCIUM 9.2 MG/DL (8.5-10.1); CARBON DIOXIDE 40 MMOL/L (21-32); CHLORIDE 96 MMOL/L (98-107); CREATININE 1.4 MG/DL (0.55-1.30); SODIUM 138 MMOL/L (136-145)
[2017-08-04] MEDS: HYDROcodone/Acetamin 10/325 tab ORAL PRN (05:49)
[2017-08-04] MEDS: NovoLOG Insulin Flexpen SUBQ SCH ×4 (06:30→22:04)
--- NOTE | 2017-08-04 08:45 | 48 Hour Post Anesthesia Eval ---
Post Anesthesia Evaluation Procedure: James, Cardioversion Date of Evaluation: Aug 04, 2017 Blood Pressure Systolic: 128 0: 107 Pulse Rate: 70 Respiratory Rate: 18 O2 Sat by Pulse Oximetry: 95 Airway: patent Nausea: No Vomiting: No Pain Intensity: 2 Hydration Status: other - On fluid restriction Cardiopulmonary Status: Stable at this time Mental Status/LOC: patient returned to baseline Follow-up Care/Observations: As per cardiology Post-Anesthesia Complications: No anesthetic complication Follow-up care needed: N/A Gómez Stone MD Aug 04, 2017 08:45
[2017-08-04] MEDS: Eliquis 2.5mg tablet ORAL SCH ×2 (08:50→17:56)
[2017-08-04] MEDS: Revatio 20mg tab ORAL SCH ×3 (08:50→17:56)
[2017-08-04] MEDS ORDERED: sitaGLIPtin 50mg tab ORAL SCH (09:00)
[2017-08-04] MEDS ORDERED: Amiodarone 900 MG in D5W 500ml 482 ML IV SCH ×3 (09:15→15:00)
[2017-08-04] MEDS ORDERED: Amiodarone 200mg tab ORAL SCH (10:00)
--- NOTE | 2017-08-04 10:08 | 48 Hour Post Anesthesia Eval ---
Post Anesthesia Evaluation Procedure: James, Cardioversion Date of Evaluation: Aug 04, 2017 Time of Evaluation: 10:05 Blood Pressure Systolic: 134 0: 75 Pulse Rate: 68 Respiratory Rate: 20 Temperature (Fahrenheit): 97.8 O2 Sat by Pulse Oximetry: 98 Airway: patent Nausea: No Vomiting: No Pain Intensity: 2 Hydration Status: adequate Cardiopulmonary Status: stable still in SR with some PVS Mental Status/LOC: patient returned to baseline Follow-up Care/Observations: still notices some pain when swallowing, but able to eat soft diet Post-Anesthesia Complications: none Follow-up care needed: N/A KT SOTELO M.D. Aug 04, 2017 10:07
--- NOTE | 2017-08-04 10:33 | Pulmonolgy Critical Care Note ---
Critical Care - Asmt/Plan Problems: (1) Atrial fibrillation with rapid ventricular response (2) CHF exacerbation (3) DM (diabetes mellitus) (4) Pulmonary hypertension Respiratory: monitor respiratory rate, adjust FIO2 Cardiac: continue to monitor HR/BP Renal: F/U I&O, check electrolytes Infectious Disease: check cultures Gastrointestinal: continue feedings/current rate Endocrine: monitor blood sugar Hematologic: monitor H/H, transfuse if hgb<8.5 Neurologic: PRN Ativan, keep patient comfortable Affect: PRN ativan Notes Reviewed: supervisor remelt Discussed with: nurses, consultants, shoe parts caserengineering group manager - Objective Last 24 Hour Vital Signs Date Time Temp Pulse Resp B/P (MAP) Pulse Ox O2 Delivery O2 Flow Rate FiO2 08/04/17 10:07 208.0 68 20 98 08/04/17 09:00 71 14 139/78 97 Nasal Cannula 2.0 08/04/17 08:45 70 18 95 08/04/17 08:00 71 08/04/17 08:00 98.5 62 16 144/80 97 Nasal Cannula 2.0 98.5 08/04/17 08:00 69 16 132/78 98 Nasal Cannula 2.0 08/04/17 07:24 Nasal Cannula 2.0 28 08/04/17 07:24 95 Nasal Cannula 2.0 28 08/04/17 07:22 70 18 Nasal Cannula 2.0 28 08/04/17 07:00 71 14 128/107 94 Nasal Cannula 2.0 08/04/17 06:30 70 16 158/99 93 Nasal Cannula 2.0 08/04/17 06:00 64 17 144/86 97 Nasal Cannula 2.0 08/04/17 05:30 60 16 150/77 97 Nasal Cannula 2.0 08/04/17 05:00 59 15 154/100 97 Nasal Cannula 2.0 08/04/17 04:30 60 15 161/104 96 Nasal Cannula 2.0 08/04/17 04:00 98.6 58 16 151/82 97 Nasal Cannula 2.0 98.6 08/04/17 03:57 53 08/04/17 03:30 65 16 129/56 97 Nasal Cannula 2.0 08/04/17 03:00 66 16 153/101 97 Nasal Cannula 2.0 08/04/17 02:30 64 15 132/101 97 Nasal Cannula 2.0 08/04/17 02:00 61 15 149/54 97 Nasal Cannula 2.0 08/04/17 01:30 59 15 131/81 98 Nasal Cannula 2.0 08/04/17 01:00 63 22 152/81 96 Nasal Cannula 2.0 08/04/17 00:30 67 17 156/97 96 Nasal Cannula 2.0 08/04/17 00:00 99.4 70 15 172/75 97 Nasal Cannula 2.0 99.4 08/03/17 23:30 74 26 158/82 97 Nasal Cannula 2.0 08/03/17 23:15 67 08/03/17 23:00 70 18 163/105 97 Nasal Cannula 2.0 08/03/17 22:00 70 19 158/93 97 Nasal Cannula 2.0 08/03/17 21:20 69 18 143/80 95 Nasal Cannula 2.0 08/03/17 21:00 74 21 142/119 98 Nasal Cannula 2.0 08/03/17 20:31 79 08/03/17 20:00 97.5 73 19 159/90 92 Nasal Cannula 2.0 97.5 08/03/17 19:07 85 18 131/89 92 Nasal Cannula 2.0 08/03/17 19:02 97.5 08/03/17 19:00 85 20 162/102 96 Nasal Cannula 2.0 08/03/17 18:03 97.5 08/03/17 18:00 73 20 152/95 98 Nasal Cannula 2.0 73 08/03/17 17:00 80 20 137/87 98 Nasal Cannula 2.0 80 08/03/17 16:00 70 08/03/17 16:00 73 20 155/95 99 Nasal Cannula 2.0 73 08/03/17 15:00 71 20 149/87 99 Nasal Cannula 2.0 71 08/03/17 14:00 72 20 145/96 99 Nasal Cannula 2.0 72 08/03/17 13:00 72 20 145/122 99 Nasal Cannula 2.0 72 08/03/17 12:00 97.5 73 20 137/93 99 Nasal Cannula 3.0 97.5 73 08/03/17 12:00 77 08/03/17 11:00 69 20 142/85 99 Nasal Cannula 2.0 69 Status: awake Condition: critical HEENT: atraumatic Neck: full ROM Lungs: chest wall tender Heart: HR/BP unstable, regular Abdomen: non-tender, feeding tube Extremities: no C/C/E Decubiti: location Accucheck: 163 Critical Care - Subjective ROS Limited/Unobtainable: No ICU Day: 2 Condition: critical EKG Rhythm: Sinus Rhythm FI02: 28 Sputum Amount: None I&O: Intake and Output 08/03/17 08/04/17 19:00 07:00 Intake Total 1322.17 ml 749.92 ml Output Total 0 ml 700 ml Balance 1322.17 ml 49.92 ml Intake Oral 850 ml 550 ml IV Total 472.17 ml 199.92 ml Output Urine Total 700 ml Estimated Blood Loss 0 ml # Voids 6 2 # Bowel Movements 1 CXR: no pulmonary edema Labs: Laboratory Tests Test 08/04/17 04:35 White Blood Count 11.0 K/UL (4.8-10.8) H Red Blood Count 5.36 M/UL (4.20-5.40) Hemoglobin 13.8 G/DL (12.0-16.0) Hematocrit 45.9 % (37.0-47.0) Mean Corpuscular Volume 86 FL (80-99) Mean Corpuscular Hemoglobin 25.9 PG (27.0-31.0) L Mean Corpuscular Hemoglobin Concent 30.1 G/DL (32.0-36.0) L Red Cell Distribution Width 15.9 % (11.6-14.8) H Platelet Count 268 K/UL (150-450) Mean Platelet Volume 9.0 FL (6.5-10.1) Neutrophils (%) (Auto) 75.5 % (45.0-75.0) H Lymphocytes (%) (Auto) 14.9 % (20.0-45.0) L Monocytes (%) (Auto) 7.5 % (1.0-10.0) Eosinophils (%) (Auto) 0.7 % (0.0-3.0) Basophils (%) (Auto) 1.5 % (0.0-2.0) Sodium Level 138 MMOL/L (136-145) Potassium Level 4.0 MMOL/L (3.5-5.1) Chloride Level 96 MMOL/L (98-107) L Carbon Dioxide Level 40 MMOL/L (21-32) H Anion Gap 2 mmol/L (5-15) L Blood Urea Nitrogen 40 mg/dL (7-18) H Creatinine 1.4 MG/DL (0.55-1.30) H Estimat Glomerular Filtration Rate 45.8 mL/min (>60) Glucose Level 122 MG/DL (74-106) H Calcium Level 9.2 MG/DL (8.5-10.1) Jesús Farrell MD Aug 04, 2017 10:33
[2017-08-04] MEDS ORDERED: Tubing IV Secondary IV ONE (15:27)
[2017-08-04] MEDS ORDERED: NS 275ml ONE (15:27)
--- NOTE | 2017-08-04 15:30 | General Progress Note ---
Assessment/Plan Problem List: (1) Edema ICD Codes: R60.9 - Edema, unspecified SNOMED: 004982000 (2) HTN (hypertension) ICD Codes: I10 - HTN (hypertension) SNOMED: 75019564 (3) DM (diabetes mellitus) ICD Codes: E11.9 - DM (diabetes mellitus) SNOMED: 84626598 (4) CHF exacerbation ICD Codes: I50.9 - Heart failure, unspecified SNOMED: 88686007 Qualifiers: Qualified Codes: I50.9 - Heart failure, unspecified (5) Atrial fibrillation with rapid ventricular response ICD Codes: I48.91 - Unspecified atrial fibrillation SNOMED: 493964491433744 Status: unchanged Assessment/Plan o2 pulm tx ot pt diet cbc bmp am Subjective Constitutional: Reports: weakness Respiratory: Reports: shortness of breath Allergies: Coded Allergies: ASPIRIN (Verified Allergy, Intermediate, Hives, 01/06/13) PENICILLINS (Verified Allergy, Intermediate, Hives, 01/06/13) All Systems: reviewed and negative except above Subjective o2nc in icu Objective Last 24 Hour Vital Signs Date Time Temp Pulse Resp B/P (MAP) Pulse Ox O2 Delivery O2 Flow Rate FiO2 08/04/17 13:00 65 17 135/77 97 Nasal Cannula 2.0 08/04/17 12:00 98.3 62 16 140/71 98 Nasal Cannula 2.0 98.3 08/04/17 12:00 54 08/04/17 11:00 66 16 134/78 99 Nasal Cannula 2.0 08/04/17 10:07 208.0 68 20 98 08/04/17 10:00 69 14 129/78 100 Nasal Cannula 2.0 08/04/17 09:30 75 14 123/85 98 Nasal Cannula 2.0 08/04/17 09:00 71 14 139/78 97 Nasal Cannula 2.0 08/04/17 08:45 70 18 95 08/04/17 08:00 71 08/04/17 08:00 98.5 62 16 144/80 97 Nasal Cannula 2.0 98.5 08/04/17 08:00 69 16 132/78 98 Nasal Cannula 2.0 08/04/17 07:24 Nasal Cannula 2.0 28 08/04/17 07:24 95 Nasal Cannula 2.0 28 08/04/17 07:22 70 18 Nasal Cannula 2.0 28 08/04/17 07:00 71 14 128/107 94 Nasal Cannula 2.0 08/04/17 06:30 70 16 158/99 93 Nasal Cannula 2.0 08/04/17 06:00 64 17 144/86 97 Nasal Cannula 2.0 08/04/17 05:30 60 16 150/77 97 Nasal Cannula 2.0 08/04/17 05:00 59 15 154/100 97 Nasal Cannula 2.0 08/04/17 04:30 60 15 161/104 96 Nasal Cannula 2.0 08/04/17 04:00 98.6 58 16 151/82 97 Nasal Cannula 2.0 98.6 08/04/17 03:57 53 08/04/17 03:30 65 16 129/56 97 Nasal Cannula 2.0 08/04/17 03:00 66 16 153/101 97 Nasal Cannula 2.0 08/04/17 02:30 64 15 132/101 97 Nasal Cannula 2.0 08/04/17 02:00 61 15 149/54 97 Nasal Cannula 2.0 08/04/17 01:30 59 15 131/81 98 Nasal Cannula 2.0 08/04/17 01:00 63 22 152/81 96 Nasal Cannula 2.0 08/04/17 00:30 67 17 156/97 96 Nasal Cannula 2.0 08/04/17 00:00 99.4 70 15 172/75 97 Nasal Cannula 2.0 99.4 08/03/17 23:30 74 26 158/82 97 Nasal Cannula 2.0 08/03/17 23:15 67 08/03/17 23:00 70 18 163/105 97 Nasal Cannula 2.0 08/03/17 22:00 70 19 158/93 97 Nasal Cannula 2.0 08/03/17 21:20 69 18 143/80 95 Nasal Cannula 2.0 08/03/17 21:00 74 21 142/119 98 Nasal Cannula 2.0 08/03/17 20:31 79 08/03/17 20:00 97.5 73 19 159/90 92 Nasal Cannula 2.0 97.5 08/03/17 19:07 85 18 131/89 92 Nasal Cannula 2.0 08/03/17 19:02 97.5 08/03/17 19:00 85 20 162/102 96 Nasal Cannula 2.0 08/03/17 18:03 97.5 08/03/17 18:00 73 20 152/95 98 Nasal Cannula 2.0 73 08/03/17 17:00 80 20 137/87 98 Nasal Cannula 2.0 80 08/03/17 16:00 70 08/03/17 16:00 73 20 155/95 99 Nasal Cannula 2.0 73 Intake and Output 08/03/17 08/04/17 19:00 07:00 Intake Total 1322.17 ml 749.92 ml Output Total 0 ml 700 ml Balance 1322.17 ml 49.92 ml Intake Oral 850 ml 550 ml IV Total 472.17 ml 199.92 ml Output Urine Total 700 ml Estimated Blood Loss 0 ml # Voids 6 2 # Bowel Movements 1 Laboratory Tests 08/04/17 04:35: White Blood Count 11.0H, Red Blood Count 5.36, Hemoglobin 13.8, Hematocrit 45.9 , Mean Corpuscular Volume 86, Mean Corpuscular Hemoglobin 25.9L, Mean Corpuscular Hemoglobin Concent 30.1L, Red Cell Distribution Width 15.9H, Platelet Count 268, Mean Platelet Volume 9.0, Neutrophils (%) (Auto) 75.5H, Lymphocytes (%) (Auto) 14.9L, Monocytes (%) (Auto) 7.5, Eosinophils (%) (Auto) 0.7, Basophils (%) (Auto) 1.5, Sodium Level 138, Potassium Level 4.0, Chloride Level 96L, Carbon Dioxide Level 40H, Anion Gap 2L, Blood Urea Nitrogen 40H, Creatinine 1.4H, Estimat Glomerular Filtration Rate 45.8, Glucose Level 122H, Calcium Level 9.2 Height (Feet): 5 Height (Inches): 3.00 Weight (Pounds): 281 General Appearance: lethargic EENT: normal ENT inspection Neck: normal alignment Cardiovascular: normal peripheral pulses, normal rate, regular rhythm Respiratory/Chest: chest wall non-tender, lungs clear, decreased breath sounds Edema: 1+ Arm (L), 1+ Arm (R), 1+ Leg (L), 1+ Leg (R), 1+ Pedal (L), 1+ Pedal ( R), 1+ Generalized Edema: trace edema Neurologic: responsive, motor weakness Skin: normal pigmentation, warm/dry CHANA LUBIN Aug 04, 2017 15:30
[2017-08-04] MEDS: Digoxin 0.125mg tab ORAL SCH (19:45)
[2017-08-04] MEDS: Metoprolol 25mg tab ORAL SCH (21:00)
--- NOTE | 2017-08-04 21:29 | Cardiology Progress Note ---
Assessment/Plan Assessment/Plan 1. Predominantly right heart failure with associated anasarca, continue lasix and metolazone, creatinine arturo to 1.4. 2. Acute on systolic and diastolic congestive heart failure, continue the diuretics. BNP not affected likely due to arrhythmia and heart failure in combination. 3. New onset atrial flutter converted to sinus rhythm with electrical DCCV, RAMIRO revealed no left atrial appendage thrombus. Continue amiodarone gtt, add digoxin and metoprolol. 4. History of diabetes mellitus. 5. History of hypertension. 6. History of chronic kidney disease. 7. History of COPD. Subjective Subjective Sinus rhythm with several single VPCs. She was restarted on amiodarone gtt as she had an episode of PAF today earlier. Awake and alert. Objective Last 24 Hour Vital Signs Date Time Temp Pulse Resp B/P (MAP) Pulse Ox O2 Delivery O2 Flow Rate FiO2 08/04/17 19:45 54 08/04/17 19:00 71 16 116/99 97 Nasal Cannula 2.0 08/04/17 18:56 98.3 08/04/17 18:00 65 17 127/82 97 Nasal Cannula 2.0 08/04/17 17:57 98.3 08/04/17 17:30 65 17 140/75 97 Nasal Cannula 2.0 08/04/17 17:00 65 17 130/77 97 Nasal Cannula 2.0 08/04/17 16:30 65 17 149/78 97 Nasal Cannula 2.0 08/04/17 16:00 69 08/04/17 16:00 98.0 62 16 150/69 98 Nasal Cannula 2.0 98.0 08/04/17 15:30 65 17 144/85 97 Nasal Cannula 2.0 08/04/17 15:00 65 17 139/77 97 Nasal Cannula 2.0 08/04/17 14:30 65 17 121/86 97 Nasal Cannula 2.0 08/04/17 14:00 65 17 132/80 97 Nasal Cannula 2.0 08/04/17 13:00 65 17 135/77 97 Nasal Cannula 2.0 08/04/17 12:00 98.3 62 16 140/71 98 Nasal Cannula 2.0 98.3 08/04/17 12:00 54 08/04/17 11:00 66 16 134/78 99 Nasal Cannula 2.0 08/04/17 10:07 208.0 68 20 98 08/04/17 10:00 69 14 129/78 100 Nasal Cannula 2.0 08/04/17 09:30 75 14 123/85 98 Nasal Cannula 2.0 08/04/17 09:00 71 14 139/78 97 Nasal Cannula 2.0 08/04/17 08:45 70 18 95 08/04/17 08:00 71 08/04/17 08:00 98.5 62 16 144/80 97 Nasal Cannula 2.0 98.5 08/04/17 08:00 69 16 132/78 98 Nasal Cannula 2.0 08/04/17 07:24 Nasal Cannula 2.0 28 08/04/17 07:24 95 Nasal Cannula 2.0 28 08/04/17 07:22 70 18 Nasal Cannula 2.0 28 08/04/17 07:00 71 14 128/107 94 Nasal Cannula 2.0 08/04/17 06:30 70 16 158/99 93 Nasal Cannula 2.0 08/04/17 06:00 64 17 144/86 97 Nasal Cannula 2.0 08/04/17 05:30 60 16 150/77 97 Nasal Cannula 2.0 08/04/17 05:00 59 15 154/100 97 Nasal Cannula 2.0 08/04/17 04:30 60 15 161/104 96 Nasal Cannula 2.0 08/04/17 04:00 98.6 58 16 151/82 97 Nasal Cannula 2.0 98.6 08/04/17 03:57 53 08/04/17 03:30 65 16 129/56 97 Nasal Cannula 2.0 08/04/17 03:00 66 16 153/101 97 Nasal Cannula 2.0 08/04/17 02:30 64 15 132/101 97 Nasal Cannula 2.0 08/04/17 02:00 61 15 149/54 97 Nasal Cannula 2.0 08/04/17 01:30 59 15 131/81 98 Nasal Cannula 2.0 08/04/17 01:00 63 22 152/81 96 Nasal Cannula 2.0 08/04/17 00:30 67 17 156/97 96 Nasal Cannula 2.0 08/04/17 00:00 99.4 70 15 172/75 97 Nasal Cannula 2.0 99.4 08/03/17 23:30 74 26 158/82 97 Nasal Cannula 2.0 08/03/17 23:15 67 08/03/17 23:00 70 18 163/105 97 Nasal Cannula 2.0 08/03/17 22:00 70 19 158/93 97 Nasal Cannula 2.0 Intake and Output 08/03/17 08/04/17 19:00 07:00 Intake Total 1322.17 ml 749.92 ml Output Total 0 ml 700 ml Balance 1322.17 ml 49.92 ml Intake Oral 850 ml 550 ml IV Total 472.17 ml 199.92 ml Output Urine Total 700 ml Estimated Blood Loss 0 ml # Voids 6 2 # Bowel Movements 1 2D Echo: EF 30%,Global LV HK,Sev RA/RV dilation,RVSP 65 mmHg,Mild AR/MR,Grade I LVD Laboratory Tests Test 08/04/17 04:35 White Blood Count 11.0 K/UL (4.8-10.8) H Red Blood Count 5.36 M/UL (4.20-5.40) Hemoglobin 13.8 G/DL (12.0-16.0) Hematocrit 45.9 % (37.0-47.0) Mean Corpuscular Volume 86 FL (80-99) Mean Corpuscular Hemoglobin 25.9 PG (27.0-31.0) L Mean Corpuscular Hemoglobin Concent 30.1 G/DL (32.0-36.0) L Red Cell Distribution Width 15.9 % (11.6-14.8) H Platelet Count 268 K/UL (150-450) Mean Platelet Volume 9.0 FL (6.5-10.1) Neutrophils (%) (Auto) 75.5 % (45.0-75.0) H Lymphocytes (%) (Auto) 14.9 % (20.0-45.0) L Monocytes (%) (Auto) 7.5 % (1.0-10.0) Eosinophils (%) (Auto) 0.7 % (0.0-3.0) Basophils (%) (Auto) 1.5 % (0.0-2.0) Sodium Level 138 MMOL/L (136-145) Potassium Level 4.0 MMOL/L (3.5-5.1) Chloride Level 96 MMOL/L (98-107) L Carbon Dioxide Level 40 MMOL/L (21-32) H Anion Gap 2 mmol/L (5-15) L Blood Urea Nitrogen 40 mg/dL (7-18) H Creatinine 1.4 MG/DL (0.55-1.30) H Estimat Glomerular Filtration Rate 45.8 mL/min (>60) Glucose Level 122 MG/DL (74-106) H Calcium Level 9.2 MG/DL (8.5-10.1) Objective GENERAL: The patient is a very unfortunate 66-year-old female, in [id number] respiratory distress. HEENT: Atraumatic and normocephalic. Anicteric. Pupils are equal, round, and reactive to light and accommodation. Extraocular muscles intact. NECK: JVP is elevated at about 15 cm. No carotid bruits. Carotid upstrokes 2+ bilaterally. CARDIOVASCULAR: Normal S1 and S2. Regular rhythm. Tachycardic. No murmurs, gallop or rubs. LUNGS: Diminished breath sounds in both bases. ABDOMEN: Distended and nontender. Positive bowel sounds. No hepatosplenomegaly EXTREMITIES: There is 1+ bilateral edema. NBA HERRERA Aug 04, 2017 21:29
[2017-08-04] MEDS: Atorvastatin 20mg tab ORAL SCH (22:01)
[2017-08-05] VITALS (40 sets, daily range): BP systolic 107–152; BP diastolic 59–96
[2017-08-05 05:51] LABS: BASOPHILS % (AUTO) 1.6 % (0.0-2.0); EOSINOPHILS % (AUTO) 1.5 % (0.0-3.0); HEMATOCRIT 46.8 % (37.0-47.0); LYMPHOCYTES % (AUTO) 20.8 % (20.0-45.0); MEAN CORPUSCULAR VOLUME 86 FL (80-99); MONOCYTES % (AUTO) 8.4 % (1.0-10.0); NEUTROPHILS % (AUTO) 67.7 % (45.0-75.0); PLATELET COUNT 232 K/UL (150-450); RED BLOOD COUNT 5.46 M/UL (4.20-5.40); WHITE BLOOD COUNT 9.5 K/UL (4.8-10.8)
[2017-08-05 05:53] LABS: ANION GAP 2 mmol/L (5-15); BLOOD UREA NITROGEN 42 mg/dL (7-18); CALCIUM 9.1 MG/DL (8.5-10.1); CHLORIDE 96 MMOL/L (98-107); CREATININE 1.5 MG/DL (0.55-1.30); POTASSIUM 3.5 MMOL/L (3.5-5.1); SODIUM 139 MMOL/L (136-145)
[2017-08-05 06:15] LABS: CARBON DIOXIDE 40 MMOL/L (21-32)
[2017-08-05] MEDS: NovoLOG Insulin Flexpen SUBQ SCH ×4 (06:56→21:04)
[2017-08-05] MEDS ORDERED: Amiodarone 900 MG in D5W 500ml 482 ML IV SCH ×2 (08:45→15:00)
[2017-08-05] MEDS: Metoprolol 25mg tab ORAL SCH (09:00)
[2017-08-05] MEDS: sitaGLIPtin 50mg tab ORAL SCH (09:24)
[2017-08-05] MEDS: Revatio 20mg tab ORAL SCH ×3 (09:24→17:46)
[2017-08-05] MEDS: Eliquis 2.5mg tablet ORAL SCH ×2 (09:25→17:45)
[2017-08-05] MEDS: Digoxin 0.125mg tab ORAL SCH (09:25)
--- NOTE | 2017-08-05 10:23 | Pulmonolgy Critical Care Note ---
Critical Care - Asmt/Plan Problems: (1) Atrial fibrillation with rapid ventricular response (2) CHF exacerbation (3) DM (diabetes mellitus) (4) Pulmonary hypertension Respiratory: monitor respiratory rate, adjust FIO2, CXR Cardiac: continue to monitor HR/BP, other - keep amiodarone drip as per cardio recommendations Renal: F/U I&O Infectious Disease: check cultures, continue antibiotics Gastrointestinal: continue feedings/current rate Endocrine: monitor blood sugar, continue sliding scale insulin Hematologic: monitor H/H, transfuse if hgb<8.5 Neurologic: PRN Ativan, keep patient comfortable Affect: PRN ativan Prophylaxis: Protonix Disposition: keep in ICU Time Spent (Minutes): 40 Notes Reviewed: retaining room cutter, renal Discussed with: nurses, consultants, gearcase assembleraudio production manager - Objective Last 24 Hour Vital Signs Date Time Temp Pulse Resp B/P (MAP) Pulse Ox O2 Delivery O2 Flow Rate FiO2 08/05/17 09:26 98.0 08/05/17 09:25 71 08/05/17 09:00 71 102/72 08/05/17 07:00 73 15 112/68 97 Nasal Cannula 2.0 08/05/17 06:30 65 15 112/68 97 Nasal Cannula 2.0 08/05/17 06:00 63 14 131/66 97 Nasal Cannula 2.0 08/05/17 06:00 66 15 107/87 97 Nasal Cannula 2.0 08/05/17 05:30 63 15 118/96 97 Nasal Cannula 2.0 08/05/17 05:00 64 15 107/89 97 Nasal Cannula 2.0 08/05/17 04:00 62 08/05/17 04:00 60 15 118/96 97 Nasal Cannula 2.0 08/05/17 03:00 66 15 110/66 97 Nasal Cannula 2.0 08/05/17 02:30 59 15 113/74 97 Nasal Cannula 2.0 08/05/17 02:00 59 14 114/74 97 Nasal Cannula 2.0 08/05/17 01:30 59 14 111/76 98 Nasal Cannula 2.0 08/05/17 01:00 57 14 115/70 98 Nasal Cannula 2.0 08/05/17 00:30 60 15 110/59 94 Nasal Cannula 2.0 08/05/17 00:00 98.0 60 15 108/59 94 Nasal Cannula 2.0 98.0 08/05/17 00:00 60 08/04/17 23:30 62 15 125/80 94 Nasal Cannula 2.0 08/04/17 23:00 58 16 126/75 96 Nasal Cannula 2.0 08/04/17 22:00 58 16 126/75 96 Nasal Cannula 2.0 08/04/17 21:30 56 15 114/63 96 Nasal Cannula 2.0 08/04/17 21:00 58 114/63 08/04/17 21:00 56 16 116/76 97 Nasal Cannula 2.0 08/04/17 20:30 57 16 122/77 97 Nasal Cannula 2.0 08/04/17 20:00 62 08/04/17 20:00 97.8 62 16 130/70 97 Nasal Cannula 2.0 97.8 08/04/17 19:45 54 08/04/17 19:30 Nasal Cannula 2.0 28 08/04/17 19:30 95 Nasal Cannula 2.0 28 08/04/17 19:30 60 18 Nasal Cannula 2.0 28 08/04/17 19:00 71 16 116/99 97 Nasal Cannula 2.0 08/04/17 18:56 98.3 08/04/17 18:00 65 17 127/82 97 Nasal Cannula 2.0 08/04/17 17:57 98.3 08/04/17 17:30 65 17 140/75 97 Nasal Cannula 2.0 08/04/17 17:00 65 17 130/77 97 Nasal Cannula 2.0 08/04/17 16:30 65 17 149/78 97 Nasal Cannula 2.0 08/04/17 16:00 69 08/04/17 16:00 98.0 62 16 150/69 98 Nasal Cannula 2.0 98.0 08/04/17 15:30 65 17 144/85 97 Nasal Cannula 2.0 08/04/17 15:00 65 17 139/77 97 Nasal Cannula 2.0 08/04/17 14:30 65 17 121/86 97 Nasal Cannula 2.0 08/04/17 14:00 65 17 132/80 97 Nasal Cannula 2.0 08/04/17 13:00 65 17 135/77 97 Nasal Cannula 2.0 08/04/17 12:00 98.3 62 16 140/71 98 Nasal Cannula 2.0 98.3 08/04/17 12:00 54 08/04/17 11:00 66 16 134/78 99 Nasal Cannula 2.0 Status: awake Condition: critical, improving HEENT: atraumatic Neck: full ROM Lungs: chest wall tender Heart: HR/BP stable Abdomen: non-tender Extremities: no C/C/E, edema Accucheck: 114 Critical Care - Subjective ROS Limited/Unobtainable: No ICU Day: 3 Interval Events: back on Amiodarone drip Condition: critical FI02: 28 Sputum Amount: None Drips: Amiodarone drip I&O: Intake and Output 08/04/17 08/05/17 19:00 07:00 Intake Total 449.96 ml 319.92 ml Output Total 1000 ml 900 ml Balance -550.04 ml -580.08 ml Intake Oral 350 ml 120 ml IV Total 99.96 ml 199.92 ml Output Urine Total 1000 ml 900 ml CXR: no edema Labs: Laboratory Tests Test 08/05/17 04:20 White Blood Count 9.5 K/UL (4.8-10.8) Red Blood Count 5.46 M/UL (4.20-5.40) H Hemoglobin 14.0 G/DL (12.0-16.0) Hematocrit 46.8 % (37.0-47.0) Mean Corpuscular Volume 86 FL (80-99) Mean Corpuscular Hemoglobin 25.7 PG (27.0-31.0) L Mean Corpuscular Hemoglobin Concent 30.0 G/DL (32.0-36.0) L Red Cell Distribution Width 16.0 % (11.6-14.8) H Platelet Count 232 K/UL (150-450) Mean Platelet Volume 9.2 FL (6.5-10.1) Neutrophils (%) (Auto) 67.7 % (45.0-75.0) Lymphocytes (%) (Auto) 20.8 % (20.0-45.0) Monocytes (%) (Auto) 8.4 % (1.0-10.0) Eosinophils (%) (Auto) 1.5 % (0.0-3.0) Basophils (%) (Auto) 1.6 % (0.0-2.0) Sodium Level 139 MMOL/L (136-145) Potassium Level 3.5 MMOL/L (3.5-5.1) Chloride Level 96 MMOL/L (98-107) L Carbon Dioxide Level 40 MMOL/L (21-32) H Anion Gap 2 mmol/L (5-15) L Blood Urea Nitrogen 42 mg/dL (7-18) H Creatinine 1.5 MG/DL (0.55-1.30) H Estimat Glomerular Filtration Rate 42.3 mL/min (>60) Glucose Level 123 MG/DL (74-106) H Calcium Level 9.1 MG/DL (8.5-10.1) Jesús Farrell MD Aug 05, 2017 10:23
--- NOTE | 2017-08-05 13:58 | General Progress Note ---
Assessment/Plan Problem List: (1) Edema ICD Codes: R60.9 - Edema, unspecified SNOMED: 941932627 (2) HTN (hypertension) ICD Codes: I10 - HTN (hypertension) SNOMED: 39156872 (3) DM (diabetes mellitus) ICD Codes: E11.9 - DM (diabetes mellitus) SNOMED: 22364685 (4) CHF exacerbation ICD Codes: I50.9 - Heart failure, unspecified SNOMED: 89599700 Qualifiers: Qualified Codes: I50.9 - Heart failure, unspecified (5) Atrial fibrillation with rapid ventricular response ICD Codes: I48.91 - Unspecified atrial fibrillation SNOMED: 295643261130528 Status: stable, progressing, tolerating diet Assessment/Plan o2 pulm tx ot pt diet cbc bmp am Subjective Constitutional: Reports: weakness Allergies: Coded Allergies: ASPIRIN (Verified Allergy, Intermediate, Hives, 01/06/13) PENICILLINS (Verified Allergy, Intermediate, Hives, 01/06/13) All Systems: reviewed and negative except above Subjective o2nc in icu Objective Last 24 Hour Vital Signs Date Time Temp Pulse Resp B/P (MAP) Pulse Ox O2 Delivery O2 Flow Rate FiO2 08/05/17 10:25 98.0 08/05/17 10:00 62 15 126/74 99 Nasal Cannula 2.0 08/05/17 09:30 68 16 110/65 97 Nasal Cannula 2.0 08/05/17 09:26 98.0 08/05/17 09:25 71 08/05/17 09:00 80 15 109/71 100 Nasal Cannula 2.0 08/05/17 09:00 71 102/72 08/05/17 08:30 65 17 122/68 97 Nasal Cannula 2.0 08/05/17 08:00 98.7 69 15 130/62 98 Nasal Cannula 2.0 98.7 08/05/17 08:00 65 08/05/17 07:30 71 16 118/68 97 Nasal Cannula 2.0 08/05/17 07:30 Nasal Cannula 2.0 28 08/05/17 07:30 97 Nasal Cannula 2.0 28 08/05/17 07:00 73 15 112/68 97 Nasal Cannula 2.0 08/05/17 06:30 65 15 112/68 97 Nasal Cannula 2.0 08/05/17 06:00 63 14 131/66 97 Nasal Cannula 2.0 08/05/17 06:00 66 15 107/87 97 Nasal Cannula 2.0 08/05/17 05:30 63 15 118/96 97 Nasal Cannula 2.0 08/05/17 05:00 64 15 107/89 97 Nasal Cannula 2.0 08/05/17 04:00 62 08/05/17 04:00 60 15 118/96 97 Nasal Cannula 2.0 08/05/17 03:00 66 15 110/66 97 Nasal Cannula 2.0 08/05/17 02:30 59 15 113/74 97 Nasal Cannula 2.0 08/05/17 02:00 59 14 114/74 97 Nasal Cannula 2.0 08/05/17 01:30 59 14 111/76 98 Nasal Cannula 2.0 08/05/17 01:00 57 14 115/70 98 Nasal Cannula 2.0 08/05/17 00:30 60 15 110/59 94 Nasal Cannula 2.0 08/05/17 00:00 98.0 60 15 108/59 94 Nasal Cannula 2.0 98.0 08/05/17 00:00 60 08/04/17 23:30 62 15 125/80 94 Nasal Cannula 2.0 08/04/17 23:00 58 16 126/75 96 Nasal Cannula 2.0 08/04/17 22:00 58 16 126/75 96 Nasal Cannula 2.0 08/04/17 21:30 56 15 114/63 96 Nasal Cannula 2.0 08/04/17 21:00 58 114/63 08/04/17 21:00 56 16 116/76 97 Nasal Cannula 2.0 08/04/17 20:30 57 16 122/77 97 Nasal Cannula 2.0 08/04/17 20:00 62 08/04/17 20:00 97.8 62 16 130/70 97 Nasal Cannula 2.0 97.8 08/04/17 19:45 54 08/04/17 19:30 Nasal Cannula 2.0 28 08/04/17 19:30 95 Nasal Cannula 2.0 28 08/04/17 19:30 60 18 Nasal Cannula 2.0 28 08/04/17 19:00 71 16 116/99 97 Nasal Cannula 2.0 08/04/17 18:00 65 17 127/82 97 Nasal Cannula 2.0 08/04/17 17:57 98.3 4/10/18 17:30 65 17 140/75 97 Nasal Cannula 2.0 08/04/17 17:00 65 17 130/77 97 Nasal Cannula 2.0 08/04/17 16:30 65 17 149/78 97 Nasal Cannula 2.0 08/04/17 16:00 69 08/04/17 16:00 98.0 62 16 150/69 98 Nasal Cannula 2.0 98.0 08/04/17 15:30 65 17 144/85 97 Nasal Cannula 2.0 08/04/17 15:00 65 17 139/77 97 Nasal Cannula 2.0 08/04/17 14:30 65 17 121/86 97 Nasal Cannula 2.0 08/04/17 14:00 65 17 132/80 97 Nasal Cannula 2.0 Intake and Output 08/04/17 08/05/17 19:00 07:00 Intake Total 449.96 ml 319.92 ml Output Total 1000 ml 900 ml Balance -550.04 ml -580.08 ml Intake Oral 350 ml 120 ml IV Total 99.96 ml 199.92 ml Output Urine Total 1000 ml 900 ml Laboratory Tests 08/05/17 04:20: White Blood Count 9.5, Red Blood Count 5.46H, Hemoglobin 14.0, Hematocrit 46.8, Mean Corpuscular Volume 86, Mean Corpuscular Hemoglobin 25.7L, Mean Corpuscular Hemoglobin Concent 30.0L, Red Cell Distribution Width 16.0H, Platelet Count 232 , Mean Platelet Volume 9.2, Neutrophils (%) (Auto) 67.7, Lymphocytes (%) (Auto) 20.8, Monocytes (%) (Auto) 8.4, Eosinophils (%) (Auto) 1.5, Basophils (%) (Auto ) 1.6, Sodium Level 139, Potassium Level 3.5, Chloride Level 96L, Carbon Dioxide Level 40H, Anion Gap 2L, Blood Urea Nitrogen 42H, Creatinine 1.5H, Estimat Glomerular Filtration Rate 42.3, Glucose Level 123H, Calcium Level 9.1 Height (Feet): 5 Height (Inches): 3.00 Weight (Pounds): 274 General Appearance: alert EENT: normal ENT inspection Neck: normal alignment Cardiovascular: normal peripheral pulses, normal rate, regular rhythm Respiratory/Chest: chest wall non-tender, lungs clear, normal breath sounds Abdomen: normal bowel sounds, non tender, soft Extremities: normal inspection Edema: 1+ Arm (L), 1+ Arm (R), 1+ Leg (L), 1+ Leg (R), 1+ Pedal (L), 1+ Pedal ( R), 1+ Generalized Edema: trace edema Neurologic: responsive, motor weakness Skin: normal pigmentation, warm/dry CHANA LUBIN Aug 05, 2017 13:58
[2017-08-05] MEDS: Miralax 17gm pkt ORAL PRN (17:45)
[2017-08-05] MEDS: Atorvastatin 20mg tab ORAL SCH (20:42)
[2017-08-05] MEDS: Amiodarone 200mg tab ORAL SCH (20:45)
[2017-08-05] MEDS: Metoprolol Tartrate 50mg tab ORAL SCH (20:45)
--- NOTE | 2017-08-05 23:26 | Cardiology Progress Note ---
Assessment/Plan Assessment/Plan 1. Predominantly right heart failure with associated anasarca, decrease lasix, continue metolazone, creatinine up to 1.5. 2. Acute on systolic and diastolic congestive heart failure, continue the diuretics. 3. New onset atrial flutter converted to sinus rhythm with electrical DCCV, RAMIRO revealed no left atrial appendage thrombus. Off amiodarone gtt, amiodarone 200mg bid started, continue digoxin, increase metoprolol to 50mg bid. 4. History of diabetes mellitus. 5. History of hypertension. 6. History of chronic kidney disease. 7. History of COPD. Subjective Subjective Sinus bradycardia at 58 with several single VPCs. Off amiodarone gtt. Objective Last 24 Hour Vital Signs Date Time Temp Pulse Resp B/P (MAP) Pulse Ox O2 Delivery O2 Flow Rate FiO2 08/05/17 22:00 69 16 152/75 97 Nasal Cannula 2.0 08/05/17 21:00 57 18 134/90 97 Nasal Cannula 2.0 08/05/17 20:45 57 131/78 08/05/17 20:00 98.6 55 18 147/72 97 Nasal Cannula 2.0 98.6 08/05/17 19:51 52 08/05/17 19:00 64 16 121/77 99 Nasal Cannula 2.0 08/05/17 18:44 98.8 08/05/17 18:38 Nasal Cannula 2.0 28 08/05/17 18:38 97 Nasal Cannula 2.0 28 08/05/17 18:00 64 16 116/80 99 Nasal Cannula 2.0 08/05/17 17:45 98.8 08/05/17 17:30 62 16 128/81 99 Nasal Cannula 2.0 08/05/17 17:00 67 16 140/72 99 Nasal Cannula 2.0 08/05/17 16:30 67 16 147/72 99 Nasal Cannula 2.0 08/05/17 16:00 98.8 62 15 132/74 100 Nasal Cannula 2.0 98.8 08/05/17 16:00 61 08/05/17 15:30 63 14 144/69 99 Nasal Cannula 2.0 08/05/17 15:00 62 15 122/73 98 Nasal Cannula 2.0 08/05/17 14:30 61 16 131/78 99 Nasal Cannula 2.0 08/05/17 14:00 63 15 135/79 100 Nasal Cannula 2.0 08/05/17 13:30 61 18 126/77 99 Nasal Cannula 2.0 08/05/17 13:00 70 17 121/74 98 Nasal Cannula 2.0 08/05/17 12:30 78 15 119/66 99 Nasal Cannula 2.0 08/05/17 12:00 98.7 72 16 130/62 98 Nasal Cannula 2.0 98.7 08/05/17 12:00 71 08/05/17 11:30 69 15 126/72 98 Nasal Cannula 2.0 08/05/17 11:00 62 16 121/74 99 Nasal Cannula 2.0 08/05/17 10:30 68 15 134/76 99 Nasal Cannula 2.0 08/05/17 10:00 62 15 126/74 99 Nasal Cannula 2.0 08/05/17 09:30 68 16 110/65 97 Nasal Cannula 2.0 08/05/17 09:26 98.0 08/05/17 09:25 71 08/05/17 09:00 80 15 109/71 100 Nasal Cannula 2.0 08/05/17 09:00 71 102/72 08/05/17 08:30 65 17 122/68 97 Nasal Cannula 2.0 08/05/17 08:00 98.7 69 15 130/62 98 Nasal Cannula 2.0 98.7 08/05/17 08:00 65 08/05/17 07:30 71 16 118/68 97 Nasal Cannula 2.0 08/05/17 07:30 Nasal Cannula 2.0 28 08/05/17 07:30 97 Nasal Cannula 2.0 28 08/05/17 07:00 73 15 112/68 97 Nasal Cannula 2.0 08/05/17 06:30 65 15 112/68 97 Nasal Cannula 2.0 08/05/17 06:00 63 14 131/66 97 Nasal Cannula 2.0 08/05/17 06:00 66 15 107/87 97 Nasal Cannula 2.0 08/05/17 05:30 63 15 118/96 97 Nasal Cannula 2.0 08/05/17 05:00 64 15 107/89 97 Nasal Cannula 2.0 08/05/17 04:00 62 08/05/17 04:00 60 15 118/96 97 Nasal Cannula 2.0 08/05/17 03:00 66 15 110/66 97 Nasal Cannula 2.0 08/05/17 02:30 59 15 113/74 97 Nasal Cannula 2.0 08/05/17 02:00 59 14 114/74 97 Nasal Cannula 2.0 08/05/17 01:30 59 14 111/76 98 Nasal Cannula 2.0 08/05/17 01:00 57 14 115/70 98 Nasal Cannula 2.0 08/05/17 00:30 60 15 110/59 94 Nasal Cannula 2.0 08/05/17 00:00 98.0 60 15 108/59 94 Nasal Cannula 2.0 98.0 08/05/17 00:00 60 08/04/17 23:30 62 15 125/80 94 Nasal Cannula 2.0 Intake and Output 08/04/17 08/05/17 19:00 07:00 Intake Total 449.96 ml 319.92 ml Output Total 1000 ml 900 ml Balance -550.04 ml -580.08 ml Intake Oral 350 ml 120 ml IV Total 99.96 ml 199.92 ml Output Urine Total 1000 ml 900 ml 2D Echo: EF 30%,Global LV HK,Sev RA/RV dilation,RVSP 65 mmHg,Mild AR/MR,Grade I LVD Laboratory Tests Test 08/05/17 04:20 White Blood Count 9.5 K/UL (4.8-10.8) Red Blood Count 5.46 M/UL (4.20-5.40) H Hemoglobin 14.0 G/DL (12.0-16.0) Hematocrit 46.8 % (37.0-47.0) Mean Corpuscular Volume 86 FL (80-99) Mean Corpuscular Hemoglobin 25.7 PG (27.0-31.0) L Mean Corpuscular Hemoglobin Concent 30.0 G/DL (32.0-36.0) L Red Cell Distribution Width 16.0 % (11.6-14.8) H Platelet Count 232 K/UL (150-450) Mean Platelet Volume 9.2 FL (6.5-10.1) Neutrophils (%) (Auto) 67.7 % (45.0-75.0) Lymphocytes (%) (Auto) 20.8 % (20.0-45.0) Monocytes (%) (Auto) 8.4 % (1.0-10.0) Eosinophils (%) (Auto) 1.5 % (0.0-3.0) Basophils (%) (Auto) 1.6 % (0.0-2.0) Sodium Level 139 MMOL/L (136-145) Potassium Level 3.5 MMOL/L (3.5-5.1) Chloride Level 96 MMOL/L (98-107) L Carbon Dioxide Level 40 MMOL/L (21-32) H Anion Gap 2 mmol/L (5-15) L Blood Urea Nitrogen 42 mg/dL (7-18) H Creatinine 1.5 MG/DL (0.55-1.30) H Estimat Glomerular Filtration Rate 42.3 mL/min (>60) Glucose Level 123 MG/DL (74-106) H Calcium Level 9.1 MG/DL (8.5-10.1) Objective GENERAL: The patient is a very unfortunate 66-year-old female, in [id number] respiratory distress. HEENT: Atraumatic and normocephalic. Anicteric. Pupils are equal, round, and reactive to light and accommodation. Extraocular muscles intact. NECK: JVP is elevated at about 15 cm. No carotid bruits. Carotid upstrokes 2+ bilaterally. CARDIOVASCULAR: Normal S1 and S2. Regular rhythm, No murmurs, gallop or rubs. LUNGS: Diminished breath sounds in both bases. ABDOMEN: Distended and nontender. Positive bowel sounds. No hepatosplenomegaly EXTREMITIES: There is 1+ bilateral edema. NBA HERRERA Aug 05, 2017 23:26
[2017-08-06] VITALS (15 sets, daily range): BP systolic 107–157; BP diastolic 56–84
[2017-08-06 06:29] LABS: BASOPHILS % (AUTO) 1.7 % (0.0-2.0); EOSINOPHILS % (AUTO) 1.3 % (0.0-3.0); HEMATOCRIT 47.9 % (37.0-47.0); HEMOGLOBIN 14.3 G/DL (12.0-16.0); LYMPHOCYTES % (AUTO) 17.1 % (20.0-45.0); MEAN CORPUSCULAR VOLUME 86 FL (80-99); MONOCYTES % (AUTO) 7.1 % (1.0-10.0); NEUTROPHILS % (AUTO) 72.8 % (45.0-75.0); PLATELET COUNT 247 K/UL (150-450); RED BLOOD COUNT 5.59 M/UL (4.20-5.40); RED CELL DISTRIBUTION WIDTH 15.8 % (11.6-14.8); WHITE BLOOD COUNT 10.4 K/UL (4.8-10.8)
[2017-08-06] MEDS: NovoLOG Insulin Flexpen SUBQ SCH ×4 (06:30→21:46)
[2017-08-06 06:46] LABS: ALANINE AMINOTRANSFERASE 18 U/L (12-78); ALBUMIN 3.1 G/DL (3.4-5.0); ALBUMIN/GLOBULIN RATIO 0.8 (1.0-2.7); ALKALINE PHOSPHATASE 160 U/L (46-116); ANION GAP 3 mmol/L (5-15); ASPARTATE AMINO TRANSFERASE 25 U/L (15-37); BILIRUBIN,TOTAL 1.2 MG/DL (0.2-1.0); BLOOD UREA NITROGEN 39 mg/dL (7-18); CALCIUM 9.3 MG/DL (8.5-10.1); CARBON DIOXIDE 40 MMOL/L (21-32); CHLORIDE 95 MMOL/L (98-107); CREATININE 1.4 MG/DL (0.55-1.30); PHOSPHORUS 4.2 MG/DL (2.5-4.9); POTASSIUM 3.8 MMOL/L (3.5-5.1); SODIUM 139 MMOL/L (136-145)
[2017-08-06 06:56] LABS: BILIRUBIN,DIRECT 0.3 MG/DL (0.0-0.3)
[2017-08-06] MEDS ORDERED: Propofol 200mg/20ml IV ONE (08:23)
[2017-08-06] MEDS ORDERED: NS Irrig 1000ml ONE (08:23)
[2017-08-06] MEDS ORDERED: Midazolam 2mg/2ml Inj ONE (08:23)
[2017-08-06] MEDS: Amiodarone 200mg tab ORAL SCH ×2 (08:50→21:08)
[2017-08-06] MEDS: Digoxin 0.125mg tab ORAL SCH (08:50)
[2017-08-06] MEDS: sitaGLIPtin 50mg tab ORAL SCH (08:51)
[2017-08-06] MEDS: Revatio 20mg tab ORAL SCH ×3 (08:51→17:16)
[2017-08-06] MEDS: Metoprolol Tartrate 50mg tab ORAL SCH (08:52)
[2017-08-06] MEDS: Miralax 17gm pkt ORAL PRN (08:52)
[2017-08-06] MEDS: Eliquis 2.5mg tablet ORAL SCH ×2 (08:53→17:38)
[2017-08-06] MEDS ORDERED: Fleet's Enema 133ml RECTAL SCH (10:00)
--- NOTE | 2017-08-06 11:03 | Pulmonolgy Critical Care Note ---
Critical Care - Asmt/Plan Problems: (1) Atrial fibrillation with rapid ventricular response (2) CHF exacerbation (3) DM (diabetes mellitus) (4) Pulmonary hypertension Respiratory: monitor respiratory rate, adjust FIO2, CXR Cardiac: continue to monitor HR/BP Renal: F/U I&O, keep IV fluid Infectious Disease: check cultures Gastrointestinal: continue feedings/current rate, abdominal imaging Endocrine: monitor blood sugar, check TSH Hematologic: monitor H/H Neurologic: PRN Ativan Affect: PRN ativan Prophylaxis: Protonix, Heparin Time Spent (Minutes): 40 Notes Reviewed: core rescuer, cardio, renal Discussed with: nurses, consultants, 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 - Objective Last 24 Hour Vital Signs Date Time Temp Pulse Resp B/P (MAP) Pulse Ox O2 Delivery O2 Flow Rate FiO2 08/06/17 10:09 59 15 128/81 94 Nasal Cannula 2.0 08/06/17 09:00 71 18 157/84 99 Nasal Cannula 2.0 08/06/17 08:52 80 137/72 08/06/17 08:50 78 08/06/17 08:00 98.2 80 19 137/72 100 Nasal Cannula 2.0 98.2 08/06/17 08:00 69 08/06/17 07:00 80 17 143/65 97 Nasal Cannula 2.0 08/06/17 06:00 64 17 118/56 97 Nasal Cannula 2.0 08/06/17 05:00 65 17 127/83 97 Nasal Cannula 2.0 08/06/17 04:00 71 08/06/17 04:00 98.4 69 17 142/83 96 Nasal Cannula 2.0 98.4 08/06/17 03:00 65 17 128/65 97 Nasal Cannula 2.0 08/06/17 02:00 74 17 114/67 97 Nasal Cannula 2.0 08/06/17 01:00 68 13 115/80 97 Nasal Cannula 2.0 08/06/17 00:00 98.6 71 18 124/68 97 Nasal Cannula 2.0 98.6 08/06/17 00:00 69 08/05/17 23:00 69 16 152/75 97 Nasal Cannula 2.0 08/05/17 22:00 69 16 152/75 97 Nasal Cannula 2.0 08/05/17 21:00 57 18 134/90 97 Nasal Cannula 2.0 08/05/17 20:45 57 131/78 08/05/17 20:00 98.6 55 18 147/72 97 Nasal Cannula 2.0 98.6 08/05/17 19:51 52 08/05/17 19:00 64 16 121/77 99 Nasal Cannula 2.0 08/05/17 18:44 98.8 08/05/17 18:38 Nasal Cannula 2.0 28 08/05/17 18:38 97 Nasal Cannula 2.0 28 08/05/17 18:00 64 16 116/80 99 Nasal Cannula 2.0 08/05/17 17:45 98.8 08/05/17 17:30 62 16 128/81 99 Nasal Cannula 2.0 08/05/17 17:00 67 16 140/72 99 Nasal Cannula 2.0 08/05/17 16:30 67 16 147/72 99 Nasal Cannula 2.0 08/05/17 16:00 98.8 62 15 132/74 100 Nasal Cannula 2.0 98.8 08/05/17 16:00 61 08/05/17 15:30 63 14 144/69 99 Nasal Cannula 2.0 08/05/17 15:00 62 15 122/73 98 Nasal Cannula 2.0 08/05/17 14:30 61 16 131/78 99 Nasal Cannula 2.0 08/05/17 14:00 63 15 135/79 100 Nasal Cannula 2.0 08/05/17 13:30 61 18 126/77 99 Nasal Cannula 2.0 08/05/17 13:00 70 17 121/74 98 Nasal Cannula 2.0 08/05/17 12:30 78 15 119/66 99 Nasal Cannula 2.0 08/05/17 12:00 98.7 72 16 130/62 98 Nasal Cannula 2.0 98.7 08/05/17 12:00 71 08/05/17 11:30 69 15 126/72 98 Nasal Cannula 2.0 Status: awake Condition: critical, improving HEENT: atraumatic Lungs: clear Abdomen: soft, active bowel sounds Extremities: no C/C/E, edema Accucheck: 104 Critical Care - Subjective ROS Limited/Unobtainable: No ICU Day: 3 Condition: critical EKG Rhythm: Sinus Rhythm FI02: 28 Sputum Amount: None I&O: Intake and Output 08/05/17 08/06/17 19:00 07:00 Intake Total 549.92 ml 110 ml Output Total 1200 ml 1030 ml Balance -650.08 ml -920 ml Intake Oral 350 ml 110 ml IV Total 199.92 ml Output Urine Total 1200 ml 1030 ml CXR: clear Labs: Laboratory Tests Test 08/06/17 05:10 White Blood Count 10.4 K/UL (4.8-10.8) Red Blood Count 5.59 M/UL (4.20-5.40) H Hemoglobin 14.3 G/DL (12.0-16.0) Hematocrit 47.9 % (37.0-47.0) H Mean Corpuscular Volume 86 FL (80-99) Mean Corpuscular Hemoglobin 25.6 PG (27.0-31.0) L Mean Corpuscular Hemoglobin Concent 29.9 G/DL (32.0-36.0) L Red Cell Distribution Width 15.8 % (11.6-14.8) H Platelet Count 247 K/UL (150-450) Mean Platelet Volume 7.5 FL (6.5-10.1) Neutrophils (%) (Auto) 72.8 % (45.0-75.0) Lymphocytes (%) (Auto) 17.1 % (20.0-45.0) L Monocytes (%) (Auto) 7.1 % (1.0-10.0) Eosinophils (%) (Auto) 1.3 % (0.0-3.0) Basophils (%) (Auto) 1.7 % (0.0-2.0) Sodium Level 139 MMOL/L (136-145) Potassium Level 3.8 MMOL/L (3.5-5.1) Chloride Level 95 MMOL/L (98-107) L Carbon Dioxide Level 40 MMOL/L (21-32) H Anion Gap 3 mmol/L (5-15) L Blood Urea Nitrogen 39 mg/dL (7-18) H Creatinine 1.4 MG/DL (0.55-1.30) H Estimat Glomerular Filtration Rate 45.8 mL/min (>60) Glucose Level 106 MG/DL (74-106) Calcium Level 9.3 MG/DL (8.5-10.1) Phosphorus Level 4.2 MG/DL (2.5-4.9) Magnesium Level 1.8 MG/DL (1.8-2.4) Total Bilirubin 1.2 MG/DL (0.2-1.0) H Direct Bilirubin 0.3 MG/DL (0.0-0.3) Aspartate Amino Transf (AST/SGOT) 25 U/L (15-37) Alanine Aminotransferase (ALT/SGPT) 18 U/L (12-78) Alkaline Phosphatase 160 U/L (46-116) H Pro-B-Type Natriuretic Peptide 873 pg/mL (0-125) H Total Protein 6.9 G/DL (6.4-8.2) Albumin 3.1 G/DL (3.4-5.0) L Globulin 3.8 g/dL Albumin/Globulin Ratio 0.8 (1.0-2.7) L Jesús Farrell MD Aug 06, 2017 11:03
[2017-08-06] MEDS ORDERED: Miralax 17gm pkt ORAL PRN (13:24)
--- NOTE | 2017-08-06 14:40 | General Progress Note ---
Assessment/Plan Problem List: (1) Edema ICD Codes: R60.9 - Edema, unspecified SNOMED: 792102569 (2) HTN (hypertension) ICD Codes: I10 - HTN (hypertension) SNOMED: 08540947 (3) DM (diabetes mellitus) ICD Codes: E11.9 - DM (diabetes mellitus) SNOMED: 55162985 (4) CHF exacerbation ICD Codes: I50.9 - Heart failure, unspecified SNOMED: 92903025 Qualifiers: Qualified Codes: I50.9 - Heart failure, unspecified (5) Atrial fibrillation with rapid ventricular response ICD Codes: I48.91 - Unspecified atrial fibrillation SNOMED: 894876908893645 Status: stable, progressing, tolerating diet Assessment/Plan o2 pulm tx ot pt diet cbc bmp am neph eval Subjective Constitutional: Reports: weakness Respiratory: Reports: shortness of breath Allergies: Coded Allergies: ASPIRIN (Verified Allergy, Intermediate, Hives, 01/06/13) PENICILLINS (Verified Allergy, Intermediate, Hives, 01/06/13) All Systems: reviewed and negative except above Subjective o2nc Objective Last 24 Hour Vital Signs Date Time Temp Pulse Resp B/P (MAP) Pulse Ox O2 Delivery O2 Flow Rate FiO2 08/06/17 12:00 47 08/06/17 12:00 98.6 50 16 121/65 97 Nasal Cannula 2.0 98.6 08/06/17 11:54 98.2 08/06/17 11:00 51 17 108/65 99 Nasal Cannula 2.0 08/06/17 10:09 59 15 128/81 94 Nasal Cannula 2.0 08/06/17 09:00 71 18 157/84 99 Nasal Cannula 2.0 08/06/17 08:52 80 137/72 08/06/17 08:50 78 08/06/17 08:00 98.2 80 19 137/72 100 Nasal Cannula 2.0 98.2 08/06/17 08:00 69 08/06/17 07:00 97 Nasal Cannula 2.0 28 08/06/17 07:00 80 17 143/65 97 Nasal Cannula 2.0 08/06/17 07:00 Nasal Cannula 2.0 28 08/06/17 06:00 64 17 118/56 97 Nasal Cannula 2.0 08/06/17 05:00 65 17 127/83 97 Nasal Cannula 2.0 08/06/17 04:00 71 08/06/17 04:00 98.4 69 17 142/83 96 Nasal Cannula 2.0 98.4 08/06/17 03:00 65 17 128/65 97 Nasal Cannula 2.0 08/06/17 02:00 74 17 114/67 97 Nasal Cannula 2.0 08/06/17 01:00 68 13 115/80 97 Nasal Cannula 2.0 08/06/17 00:00 98.6 71 18 124/68 97 Nasal Cannula 2.0 98.6 08/06/17 00:00 69 08/05/17 23:00 69 16 152/75 97 Nasal Cannula 2.0 08/05/17 22:00 69 16 152/75 97 Nasal Cannula 2.0 08/05/17 21:00 57 18 134/90 97 Nasal Cannula 2.0 08/05/17 20:45 57 131/78 08/05/17 20:00 98.6 55 18 147/72 97 Nasal Cannula 2.0 98.6 08/05/17 19:51 52 08/05/17 19:00 64 16 121/77 99 Nasal Cannula 2.0 08/05/17 18:44 98.8 08/05/17 18:38 Nasal Cannula 2.0 28 08/05/17 18:38 97 Nasal Cannula 2.0 28 08/05/17 18:00 64 16 116/80 99 Nasal Cannula 2.0 08/05/17 17:45 98.8 08/05/17 17:30 62 16 128/81 99 Nasal Cannula 2.0 08/05/17 17:00 67 16 140/72 99 Nasal Cannula 2.0 08/05/17 16:30 67 16 147/72 99 Nasal Cannula 2.0 08/05/17 16:00 98.8 62 15 132/74 100 Nasal Cannula 2.0 98.8 08/05/17 16:00 61 08/05/17 15:30 63 14 144/69 99 Nasal Cannula 2.0 08/05/17 15:00 62 15 122/73 98 Nasal Cannula 2.0 Intake and Output 08/05/17 08/06/17 19:00 07:00 Intake Total 549.92 ml 110 ml Output Total 1200 ml 1030 ml Balance -650.08 ml -920 ml Intake Oral 350 ml 110 ml IV Total 199.92 ml Output Urine Total 1200 ml 1030 ml Laboratory Tests 08/06/17 05:10: White Blood Count 10.4, Red Blood Count 5.59H, Hemoglobin 14.3, Hematocrit 47.9H , Mean Corpuscular Volume 86, Mean Corpuscular Hemoglobin 25.6L, Mean Corpuscular Hemoglobin Concent 29.9L, Red Cell Distribution Width 15.8H, Platelet Count 247, Mean Platelet Volume 7.5, Neutrophils (%) (Auto) 72.8, Lymphocytes (%) (Auto) 17.1L, Monocytes (%) (Auto) 7.1, Eosinophils (%) (Auto) 1.3, Basophils (%) (Auto) 1.7, Sodium Level 139, Potassium Level 3.8, Chloride Level 95L, Carbon Dioxide Level 40H, Anion Gap 3L, Blood Urea Nitrogen 39H, Creatinine 1.4H, Estimat Glomerular Filtration Rate 45.8, Glucose Level 106, Calcium Level 9.3, Phosphorus Level 4.2, Magnesium Level 1.8, Total Bilirubin 1.2H, Direct Bilirubin 0.3, Aspartate Amino Transf (AST/SGOT) 25, Alanine Aminotransferase (ALT/SGPT) 18, Alkaline Phosphatase 160H, Pro-B-Type Natriuretic Peptide 873H, Total Protein 6.9, Albumin 3.1L, Globulin 3.8, Albumin /Globulin Ratio 0.8L Height (Feet): 5 Height (Inches): 3.00 Weight (Pounds): 273 General Appearance: alert EENT: normal ENT inspection Neck: normal alignment Cardiovascular: normal peripheral pulses, normal rate, regular rhythm Respiratory/Chest: chest wall non-tender, lungs clear, decreased breath sounds Abdomen: normal bowel sounds, non tender, soft Extremities: normal inspection Edema: no edema noted Arm (L), no edema noted Arm (R), no edema noted Leg (L), no edema noted Leg (R), no edema noted Pedal (L), no edema noted Pedal (R), no edema noted Generalized Neurologic: responsive, motor weakness Skin: normal pigmentation, warm/dry CHANA LUBIN Aug 06, 2017 14:40
[2017-08-06] MEDS ORDERED: Metoprolol Tartrate 50mg tab ORAL SCH (21:00)
[2017-08-06] MEDS: Atorvastatin 20mg tab ORAL SCH (21:07)
[2017-08-06] MEDS: Metoprolol 25mg tab ORAL SCH (21:11)
--- NOTE | 2017-08-06 23:49 | Cardiology Progress Note ---
Assessment/Plan Assessment/Plan 1. Predominantly right heart failure with associated anasarca, continue metolazone and lasix, creatinine down to 1.4. 2. Acute on systolic and diastolic congestive heart failure, continue the diuretics. 3. New onset atrial flutter converted to sinus rhythm with electrical DCCV, RAMIRO revealed no left atrial appendage thrombus. Continue amiodarone, Eliquis and metoprolol. 4. History of diabetes mellitus. 5. History of hypertension. 6. History of chronic kidney disease. 7. History of COPD. Subjective Subjective Transferred out of the unit. Sinus bradycardia at 58 with several single VPCs. Digoxin was discontinued. Objective Last 24 Hour Vital Signs Date Time Temp Pulse Resp B/P (MAP) Pulse Ox O2 Delivery O2 Flow Rate FiO2 08/06/17 21:11 53 107/64 08/06/17 20:00 65 08/06/17 20:00 97.4 53 20 107/64 99 Nasal Cannula 2.0 97.4 08/06/17 19:30 Nasal Cannula 2.0 28 08/06/17 19:30 95 Nasal Cannula 2.0 28 08/06/17 18:38 97.7 08/06/17 17:39 97.7 08/06/17 16:00 97.7 47 22 131/82 97 Nasal Cannula 2.0 97.7 08/06/17 16:00 46 08/06/17 12:00 47 08/06/17 12:00 98.6 50 16 121/65 97 Nasal Cannula 2.0 98.6 08/06/17 11:54 98.2 08/06/17 11:00 51 17 108/65 99 Nasal Cannula 2.0 08/06/17 10:09 59 15 128/81 94 Nasal Cannula 2.0 08/06/17 09:00 71 18 157/84 99 Nasal Cannula 2.0 08/06/17 08:52 80 137/72 08/06/17 08:50 78 08/06/17 08:00 98.2 80 19 137/72 100 Nasal Cannula 2.0 98.2 08/06/17 08:00 69 08/06/17 07:00 97 Nasal Cannula 2.0 28 08/06/17 07:00 80 17 143/65 97 Nasal Cannula 2.0 08/06/17 07:00 Nasal Cannula 2.0 28 08/06/17 06:00 64 17 118/56 97 Nasal Cannula 2.0 08/06/17 05:00 65 17 127/83 97 Nasal Cannula 2.0 08/06/17 04:00 71 08/06/17 04:00 98.4 69 17 142/83 96 Nasal Cannula 2.0 98.4 08/06/17 03:00 65 17 128/65 97 Nasal Cannula 2.0 08/06/17 02:00 74 17 114/67 97 Nasal Cannula 2.0 08/06/17 01:00 68 13 115/80 97 Nasal Cannula 2.0 08/06/17 00:00 98.6 71 18 124/68 97 Nasal Cannula 2.0 98.6 08/06/17 00:00 69 Intake and Output 08/05/17 08/06/17 19:00 07:00 Intake Total 549.92 ml 110 ml Output Total 1200 ml 1030 ml Balance -650.08 ml -920 ml Intake Oral 350 ml 110 ml IV Total 199.92 ml Output Urine Total 1200 ml 1030 ml 2D Echo: EF 30%,Global LV HK,Sev RA/RV dilation,RVSP 65 mmHg,Mild AR/MR,Grade I LVD Laboratory Tests Test 08/06/17 05:10 White Blood Count 10.4 K/UL (4.8-10.8) Red Blood Count 5.59 M/UL (4.20-5.40) H Hemoglobin 14.3 G/DL (12.0-16.0) Hematocrit 47.9 % (37.0-47.0) H Mean Corpuscular Volume 86 FL (80-99) Mean Corpuscular Hemoglobin 25.6 PG (27.0-31.0) L Mean Corpuscular Hemoglobin Concent 29.9 G/DL (32.0-36.0) L Red Cell Distribution Width 15.8 % (11.6-14.8) H Platelet Count 247 K/UL (150-450) Mean Platelet Volume 7.5 FL (6.5-10.1) Neutrophils (%) (Auto) 72.8 % (45.0-75.0) Lymphocytes (%) (Auto) 17.1 % (20.0-45.0) L Monocytes (%) (Auto) 7.1 % (1.0-10.0) Eosinophils (%) (Auto) 1.3 % (0.0-3.0) Basophils (%) (Auto) 1.7 % (0.0-2.0) Sodium Level 139 MMOL/L (136-145) Potassium Level 3.8 MMOL/L (3.5-5.1) Chloride Level 95 MMOL/L (98-107) L Carbon Dioxide Level 40 MMOL/L (21-32) H Anion Gap 3 mmol/L (5-15) L Blood Urea Nitrogen 39 mg/dL (7-18) H Creatinine 1.4 MG/DL (0.55-1.30) H Estimat Glomerular Filtration Rate 45.8 mL/min (>60) Glucose Level 106 MG/DL (74-106) Calcium Level 9.3 MG/DL (8.5-10.1) Phosphorus Level 4.2 MG/DL (2.5-4.9) Magnesium Level 1.8 MG/DL (1.8-2.4) Total Bilirubin 1.2 MG/DL (0.2-1.0) H Direct Bilirubin 0.3 MG/DL (0.0-0.3) Aspartate Amino Transf (AST/SGOT) 25 U/L (15-37) Alanine Aminotransferase (ALT/SGPT) 18 U/L (12-78) Alkaline Phosphatase 160 U/L (46-116) H Pro-B-Type Natriuretic Peptide 873 pg/mL (0-125) H Total Protein 6.9 G/DL (6.4-8.2) Albumin 3.1 G/DL (3.4-5.0) L Globulin 3.8 g/dL Albumin/Globulin Ratio 0.8 (1.0-2.7) L EF 30%,Global LV HK,Sev RA/RV dilation,RVSP 65 mmHg,Mild AR/MR,Grade I LVD Objective GENERAL: The patient is a very unfortunate 66-year-old female, in [id number] respiratory distress. HEENT: Atraumatic and normocephalic. Anicteric. Pupils are equal, round, and reactive to light and accommodation. Extraocular muscles intact. NECK: JVP is elevated at about 15 cm. No carotid bruits. Carotid upstrokes 2+ bilaterally. CARDIOVASCULAR: Normal S1 and S2. Regular rhythm, No murmurs, gallop or rubs. LUNGS: Diminished breath sounds in both bases. ABDOMEN: Distended and nontender. Positive bowel sounds. No hepatosplenomegaly EXTREMITIES: There is 1+ bilateral edema. NBA HERRERA Aug 06, 2017 23:49
[2017-08-07] VITALS: BP 106/68
[2017-08-07 03:58] LABS: BASOPHILS % (AUTO) 1.5 % (0.0-2.0); EOSINOPHILS % (AUTO) 1.3 % (0.0-3.0); HEMATOCRIT 46.8 % (37.0-47.0); HEMOGLOBIN 14.1 G/DL (12.0-16.0); LYMPHOCYTES % (AUTO) 21.6 % (20.0-45.0); MEAN CORPUSCULAR VOLUME 85 FL (80-99); MONOCYTES % (AUTO) 6.5 % (1.0-10.0); NEUTROPHILS % (AUTO) 69.1 % (45.0-75.0); PLATELET COUNT 246 K/UL (150-450); RED CELL DISTRIBUTION WIDTH 16.1 % (11.6-14.8); WHITE BLOOD COUNT 9.9 K/UL (4.8-10.8)
[2017-08-07 04:00] VITALS: BP 133/84
[2017-08-07 04:34] LABS: ALANINE AMINOTRANSFERASE 19 U/L (12-78); ALBUMIN/GLOBULIN RATIO 0.8 (1.0-2.7); ALKALINE PHOSPHATASE 147 U/L (46-116); AMYLASE 46 U/L (25-115); ANION GAP 5 mmol/L (5-15); ASPARTATE AMINO TRANSFERASE 23 U/L (15-37); BILIRUBIN,TOTAL 0.9 MG/DL (0.2-1.0); BLOOD UREA NITROGEN 39 mg/dL (7-18); CALCIUM 8.8 MG/DL (8.5-10.1); CARBON DIOXIDE 38 MMOL/L (21-32); CHLORIDE 94 MMOL/L (98-107); CREATININE 1.6 MG/DL (0.55-1.30); PHOSPHORUS 4.1 MG/DL (2.5-4.9); SODIUM 137 MMOL/L (136-145)
[2017-08-07] MEDS: NovoLOG Insulin Flexpen SUBQ SCH ×4 (06:27→21:06)
[2017-08-07 08:00] VITALS: BP 142/52
[2017-08-07] MEDS ORDERED: Digoxin 0.125mg tab ORAL SCH (09:00)
[2017-08-07] MEDS: Amiodarone 200mg tab ORAL SCH ×2 (09:34→21:05)
[2017-08-07] MEDS: Eliquis 2.5mg tablet ORAL SCH ×2 (09:35→18:22)
[2017-08-07] MEDS: sitaGLIPtin 50mg tab ORAL SCH (09:35)
[2017-08-07] MEDS: Metoprolol 25mg tab ORAL SCH ×2 (09:36→21:00)
[2017-08-07 12:00] VITALS: BP 124/67
--- NOTE | 2017-08-07 12:03 | Pulmonology Progress Note ---
Assessment/Plan Problems: (1) Atrial fibrillation with rapid ventricular response (2) CHF exacerbation (3) Pulmonary hypertension (4) HTN (hypertension) (5) DM (diabetes mellitus) Assessment/Plan no new complains wants her diet to be advanced hold diuretics, b/o increasing bun/creatinine on Sidenefil pulmonary edema improved/ resolfved sliding scale diabetic diet. anticoagulation by cardiology dc with dr Nielsen Subjective ROS Limited/Unobtainable: No Constitutional: Reports: no symptoms HEENT: Repors: no symptoms Allergies: Coded Allergies: ASPIRIN (Verified Allergy, Intermediate, Hives, 01/06/13) PENICILLINS (Verified Allergy, Intermediate, Hives, 01/06/13) Objective Last 24 Hour Vital Signs Date Time Temp Pulse Resp B/P (MAP) Pulse Ox O2 Delivery O2 Flow Rate FiO2 08/07/17 09:36 53 142/52 08/07/17 08:00 97.3 65 21 142/52 97 Nasal Cannula 2.0 97.3 08/07/17 08:00 53 08/07/17 04:00 97.4 53 20 133/84 98 Nasal Cannula 2.0 97.4 08/07/17 03:42 55 08/07/17 00:00 97.6 44 19 106/68 99 Nasal Cannula 2.0 97.6 08/07/17 00:00 46 08/06/17 21:11 53 107/64 08/06/17 20:00 65 08/06/17 20:00 97.4 53 20 107/64 99 Nasal Cannula 2.0 97.4 08/06/17 19:30 Nasal Cannula 2.0 28 08/06/17 19:30 95 Nasal Cannula 2.0 28 08/06/17 18:38 97.7 08/06/17 17:39 97.7 08/06/17 16:00 97.7 47 22 131/82 97 Nasal Cannula 2.0 97.7 08/06/17 16:00 46 Intake and Output 08/06/17 08/07/17 19:00 07:00 Intake Total 210 ml 250 ml Output Total 100 ml Balance 110 ml 250 ml Intake Oral 210 ml 250 ml Output Urine Total 100 ml # Voids 3 4 # Bowel Movements 4 1 Objective General Appearance: obese Lines, tubes and drains: peripheral HEENT: normocephalic, atraumatic Neck: non-tender, normal alignment Respiratory/Chest: crackles/rales Breasts: no masses Cardiovascular/Chest: normal peripheral pulses, normal rate Abdomen: normal bowel sounds, non tender Genitourinary/Rectal: normal genital exam Extremities: normal range of motion, non-tender, moderate edema Skin Exam: normal pigmentation Neurologic: baker paint II-XII grossly normal Laboratory Tests 08/07/17 03:10: White Blood Count 9.9, Red Blood Count 5.50H, Hemoglobin 14.1, Hematocrit 46.8, Mean Corpuscular Volume 85, Mean Corpuscular Hemoglobin 25.6L, Mean Corpuscular Hemoglobin Concent 30.1L, Red Cell Distribution Width 16.1H, Platelet Count 246 , Mean Platelet Volume 8.7, Neutrophils (%) (Auto) 69.1, Lymphocytes (%) (Auto) 21.6, Monocytes (%) (Auto) 6.5, Eosinophils (%) (Auto) 1.3, Basophils (%) (Auto ) 1.5, Erythrocyte Sedimentation Rate 2, Sodium Level 137, Potassium Level 4.0, Chloride Level 94L, Carbon Dioxide Level 38H, Anion Gap 5, Blood Urea Nitrogen 39H, Creatinine 1.6H, Estimat Glomerular Filtration Rate 39.3, Glucose Level 107H, Calcium Level 8.8, Phosphorus Level 4.1, Magnesium Level 1.9, Total Bilirubin 0.9, Aspartate Amino Transf (AST/SGOT) 23, Alanine Aminotransferase ( ALT/SGPT) 19, Alkaline Phosphatase 147H, C-Reactive Protein, Quantitative 2.6H, Total Protein 6.9, Albumin 3.0L, Globulin 3.9, Albumin/Globulin Ratio 0.8L, Amylase Level 46, Lipase 71L Current Medications Medications (Trade) Dose Ordered Sig/Toya Route PRN Reason Start Time Stop Time Status Last Admin Dose Admin Acetaminophen (Tylenol) 650 mg Q4H PRN ORAL Mild Pain/Temp > 100.5 08/06/17 13:15 09/02/17 13:14 08/06/17 17:39 Amiodarone HCl (Cordarone) 200 mg EVERY 12 HOURS ORAL 08/06/17 21:00 09/04/17 20:59 08/07/17 09:34 Apixaban (Eliquis) 5 mg BID ORAL 08/06/17 18:00 08/27/17 23:44 08/07/17 09:35 Atorvastatin Calcium (Lipitor) 40 mg QHS ORAL 08/06/17 21:00 08/28/17 20:59 08/06/17 21:07 Cetylpyridinium Chloride (Cepacol) 1 lozg Q3H PRN CÉSAR Throat pain 08/06/17 13:15 09/02/17 13:14 Dextrose (Dextrose 50%) 25 ml STAT PRN IV BS 60-69mg/dl 08/07/17 13:16 09/02/17 13:15 Dextrose (Dextrose 50%) 50 ml STAT PRN IV BS less than 60mg/dl 08/07/17 13:16 09/02/17 13:15 Gabapentin (Neurontin) 300 mg BID ORAL 08/06/17 18:00 08/27/17 18:29 08/07/17 09:36 Insulin Aspart (NovoLOG) BEFORE MEALS AND HS SUBQ 08/06/17 16:30 08/27/17 20:59 08/06/17 21:46 Metolazone (Zaroxolyn) 5 mg DAILY ORAL 08/07/17 09:00 08/28/17 08:59 08/07/17 09:36 Metoprolol Tartrate (Lopressor) 50 mg Q12HR ORAL 08/06/17 21:00 09/03/17 20:59 08/07/17 09:36 Ondansetron HCl (Zofran) 4 mg Q6H PRN IVP Nausea & Vomiting 08/06/17 13:23 08/27/17 13:22 Polyethylene Glycol (Miralax) 17 gm DAILYPRN PRN ORAL Constipation 08/06/17 13:24 09/05/17 13:23 Potassium Chloride (K-Dur) 40 meq DAILY ORAL 08/07/17 09:00 08/31/17 13:44 08/07/17 09:35 Sitagliptin Phosphate (Januvia) 50 mg DAILY ORAL 08/07/17 09:00 08/28/17 08:59 08/07/17 09:35 Temazepam (Restoril) 15 mg HSPRN PRN ORAL Insomnia 08/06/17 21:00 08/11/17 20:59 Jesús Farrell MD Aug 07, 2017 12:03
--- NOTE | 2017-08-07 12:12 | General Progress Note ---
Progress Note Progress Note [id number] full consult dictated PRINCESS BAXTER Aug 07, 2017 12:12
[2017-08-07 13:00] LABS: CREATINE KINASE 170 U/L (26-308)
--- NOTE | 2017-08-07 13:15 | General Progress Note ---
Assessment/Plan Problem List: (1) Edema ICD Codes: R60.9 - Edema, unspecified SNOMED: 534569918 (2) HTN (hypertension) ICD Codes: I10 - HTN (hypertension) SNOMED: 23112265 (3) DM (diabetes mellitus) ICD Codes: E11.9 - DM (diabetes mellitus) SNOMED: 35245678 (4) CHF exacerbation ICD Codes: I50.9 - Heart failure, unspecified SNOMED: 44113523 Qualifiers: Qualified Codes: I50.9 - Heart failure, unspecified (5) Atrial fibrillation with rapid ventricular response ICD Codes: I48.91 - Unspecified atrial fibrillation SNOMED: 411510875531722 Status: stable, progressing, tolerating diet Assessment/Plan o2 pulm tx ot pt diet cbc bmp am neph eval dc plan w hh Subjective Constitutional: Reports: weakness Allergies: Coded Allergies: ASPIRIN (Verified Allergy, Intermediate, Hives, 01/06/13) PENICILLINS (Verified Allergy, Intermediate, Hives, 01/06/13) All Systems: reviewed and negative except above Subjective o2nc calm Objective Last 24 Hour Vital Signs Date Time Temp Pulse Resp B/P (MAP) Pulse Ox O2 Delivery O2 Flow Rate FiO2 08/07/17 09:36 53 142/52 08/07/17 08:00 97.3 65 21 142/52 97 Nasal Cannula 2.0 97.3 08/07/17 08:00 53 08/07/17 04:00 97.4 53 20 133/84 98 Nasal Cannula 2.0 97.4 08/07/17 03:42 55 08/07/17 00:00 97.6 44 19 106/68 99 Nasal Cannula 2.0 97.6 08/07/17 00:00 46 08/06/17 21:11 53 107/64 08/06/17 20:00 65 08/06/17 20:00 97.4 53 20 107/64 99 Nasal Cannula 2.0 97.4 08/06/17 19:30 Nasal Cannula 2.0 28 08/06/17 19:30 95 Nasal Cannula 2.0 28 08/06/17 18:38 97.7 08/06/17 17:39 97.7 08/06/17 16:00 97.7 47 22 131/82 97 Nasal Cannula 2.0 97.7 4/12/18 16:00 46 Intake and Output 08/06/17 08/07/17 19:00 07:00 Intake Total 210 ml 250 ml Output Total 100 ml Balance 110 ml 250 ml Intake Oral 210 ml 250 ml Output Urine Total 100 ml # Voids 3 4 # Bowel Movements 4 1 Laboratory Tests 08/07/17 03:10: White Blood Count 9.9, Red Blood Count 5.50H, Hemoglobin 14.1, Hematocrit 46.8, Mean Corpuscular Volume 85, Mean Corpuscular Hemoglobin 25.6L, Mean Corpuscular Hemoglobin Concent 30.1L, Red Cell Distribution Width 16.1H, Platelet Count 246 , Mean Platelet Volume 8.7, Neutrophils (%) (Auto) 69.1, Lymphocytes (%) (Auto) 21.6, Monocytes (%) (Auto) 6.5, Eosinophils (%) (Auto) 1.3, Basophils (%) (Auto ) 1.5, Erythrocyte Sedimentation Rate 2, Sodium Level 137, Potassium Level 4.0, Chloride Level 94L, Carbon Dioxide Level 38H, Anion Gap 5, Blood Urea Nitrogen 39H, Creatinine 1.6H, Estimat Glomerular Filtration Rate 39.3, Glucose Level 107H, Uric Acid 13.6H, Calcium Level 8.8, Phosphorus Level 4.1, Magnesium Level 1.9, Total Bilirubin 0.9, Aspartate Amino Transf (AST/SGOT) 23, Alanine Aminotransferase (ALT/SGPT) 19, Alkaline Phosphatase 147H, Total Creatine Kinase 170, C-Reactive Protein, Quantitative 2.6H, Total Protein 6.9, Albumin 3.0L, Globulin 3.9, Albumin/Globulin Ratio 0.8L, Amylase Level 46, Lipase 71L Height (Feet): 5 Height (Inches): 3.00 Weight (Pounds): 274 General Appearance: alert EENT: normal ENT inspection Neck: normal alignment Cardiovascular: normal peripheral pulses, normal rate, regular rhythm Respiratory/Chest: chest wall non-tender, lungs clear, decreased breath sounds Abdomen: normal bowel sounds, non tender, soft Extremities: normal inspection Edema: 1+ Arm (L), 1+ Arm (R), 1+ Leg (L), 1+ Leg (R), 1+ Pedal (L), 1+ Pedal ( R), 1+ Generalized Edema: trace edema Neurologic: responsive, motor weakness Skin: normal pigmentation, warm/dry LUBIN,CHANA Aug 07, 2017 13:14
[2017-08-07 16:00] VITALS: BP 105/69
--- NOTE | 2017-08-07 18:30 | Consultation ---
DATE OF CONSULTATION: 08/07/2017 NEPHROLOGY CONSULTATION CONSULTING PHYSICIAN: Marzena Nielsen M.D. REFERRING PHYSICIAN: Pedro Benjamin D.O. REASON FOR CONSULTATION: Acute renal failure and shortness of breath. HISTORY OF PRESENT ILLNESS: The patient is a 66-year-old female with past medical history significant for history of hypertension, diabetes, history of diabetic neuropathy, history of diabetic retinopathy, and history of morbid obesity, who originally was admitted at [facility] on 07/28/2017 with diagnosis of congestive heart failure. The patient found to be severely fluid overloaded and started on Lasix and metolazone. She states that she has lost more than 30 pounds ever since she has been here. She has been having good urine output since admission and she is feeling less short of breath, however, the patient was found to have an increase in her creatinine. I was called for management of renal disease and electrolyte imbalance. PAST MEDICAL HISTORY: 1. Diabetes. 2. Hypertension. 3. Diabetic neuropathy. 4. Morbid obesity. 5. History of congestive heart failure in the past. ALLERGIES: She is allergic to penicillin and aspirin. SOCIAL HISTORY: There is no history of tobacco, alcohol, or drug use. FAMILY HISTORY: Noncontributory. REVIEW OF SYSTEMS: GENERAL: She complained of generalized weakness. Denies any fever, chills, or night sweats. HEAD AND NECK: Denies any dysphagia, odynophagia, blurry vision, headache, or neck stiffness. PULMONARY: Complained of shortness of breath, orthopnea, and leg swelling, but has improved since admission. CARDIOVASCULAR: Denies any chest pain or palpitations. GASTROINTESTINAL: No nausea. No vomiting. GENITOURINARY: Denies any dysuria, frequency, or hematuria. MUSCULOSKELETAL: Denies any weakness or numbness. PHYSICAL EXAMINATION: VITAL SIGNS: The patient had temperature of 97, blood pressure of 106/68, pulse rate of 44, and respiratory rate of 18. HEAD AND NECK: No JVP. No LAD. No thyromegaly. Extraocular movement intact. Pupils are reactive to light and accommodation. LUNGS: Clear to auscultation. CARDIAC: Regular rate and rhythm. S1 and S2. No murmur. No rub. ABDOMEN: Obese, nontender, and nondistended. EXTREMITY: A 1+ to 2+ edema. No clubbing. No cyanosis. LABORATORY DATA: Basically revealed WBC count of 9.9, hemoglobin of 14, hematocrit of 46, and platelet count 246,000. Chemistry revealed sodium 137, potassium 4, chloride 97, bicarb 38, BUN is 39, creatinine now is 1.6 up from 1.4, glucose of 107, and calcium of 8.8. AST and ALT within normal limits. Total protein of 6.9. Albumin of 3. UA revealed specific gravity of 1.015, 3+ proteinuria, blood 5+, leukocyte esterase 2+, and 5 to 10 rbc. Most recent chest x-ray was done about three days ago, which revealed cardiomyopathy. Lungs are clear and unremarkable. ASSESSMENT: 1. Acute renal failure. The etiology of acute renal failure are including acute tubular necrosis due to unstable hemodynamics versus prerenal azotemia. 2. Chronic kidney disease due to diabetic nephropathy with 4+ proteinuria. 3. Urinary tract infection. 4. Fluid overload. 5. Morbid obesity. 6. Diabetes. 7. Hypertension. PLAN: Plan for the patient to obtain UA, repeat the UA, check the random urine protein creatinine ratio to calculate the proteinuria, and check the urine sodium and creatinine to calculate fractional excretion of sodium. I would check the daily weight. Check the I's and O's. Hold the Lasix. I would also avoid any NSAID and nephrotoxic. I think, at this point, the patient's Lasix and metolazone needs to be lowered in the dose since the chest x-ray was okay and the patient has minimal lower extremity edema and also I would recommend to controlling the diabetes. The goal of A1c for this patient is 6 to 7. Check the lipid panel. At the end, I would like to thank, Dr. Pedro Benjamin, for allowing me to participate in the care of this patient. Marzena Nielsen M.D. DR: VANNA JOB#: [id number] CC:
--- NOTE | 2017-08-07 19:44 | Cardiology Progress Note ---
Assessment/Plan Assessment/Plan 1. Predominantly right heart failure with associated anasarca, off metolazone and lasix, creatinine up to 1.6. May start lower dose of furosemide PO in preparation for discharge. 2. Acute on systolic and diastolic congestive heart failure, off diuretics. Continue low dose metoprolol. 3. New onset atrial flutter converted to sinus rhythm with electrical DCCV, RAMIRO revealed no left atrial appendage thrombus. Continue amiodarone, Eliquis and metoprolol. 4. History of diabetes mellitus. 5. History of hypertension. 6. History of chronic kidney disease. 7. History of COPD. Subjective Subjective Had bradycardia as low as 40s. Sinus rhythm at 68. Objective Last 24 Hour Vital Signs Date Time Temp Pulse Resp B/P (MAP) Pulse Ox O2 Delivery O2 Flow Rate FiO2 08/07/17 16:04 46 08/07/17 16:00 97.9 68 19 105/69 94 Nasal Cannula 2.0 97.9 08/07/17 12:00 97.3 84 22 124/67 95 Nasal Cannula 2.0 97.3 08/07/17 12:00 42 08/07/17 09:36 53 142/52 08/07/17 08:00 97.3 65 21 142/52 97 Nasal Cannula 2.0 97.3 08/07/17 08:00 53 08/07/17 04:00 97.4 53 20 133/84 98 Nasal Cannula 2.0 97.4 08/07/17 03:42 55 08/07/17 00:00 97.6 44 19 106/68 99 Nasal Cannula 2.0 97.6 08/07/17 00:00 46 08/06/17 21:11 53 107/64 08/06/17 20:00 65 08/06/17 20:00 97.4 53 20 107/64 99 Nasal Cannula 2.0 97.4 Intake and Output 08/06/17 08/07/17 19:00 07:00 Intake Total 210 ml 250 ml Output Total 100 ml Balance 110 ml 250 ml Intake Oral 210 ml 250 ml Output Urine Total 100 ml # Voids 3 4 # Bowel Movements 4 1 2D Echo: EF 30%,Global LV HK,Sev RA/RV dilation,RVSP 65 mmHg,Mild AR/MR,Grade I LVD Laboratory Tests Test 08/07/17 03:10 White Blood Count 9.9 K/UL (4.8-10.8) Red Blood Count 5.50 M/UL (4.20-5.40) H Hemoglobin 14.1 G/DL (12.0-16.0) Hematocrit 46.8 % (37.0-47.0) Mean Corpuscular Volume 85 FL (80-99) Mean Corpuscular Hemoglobin 25.6 PG (27.0-31.0) L Mean Corpuscular Hemoglobin Concent 30.1 G/DL (32.0-36.0) L Red Cell Distribution Width 16.1 % (11.6-14.8) H Platelet Count 246 K/UL (150-450) Mean Platelet Volume 8.7 FL (6.5-10.1) Neutrophils (%) (Auto) 69.1 % (45.0-75.0) Lymphocytes (%) (Auto) 21.6 % (20.0-45.0) Monocytes (%) (Auto) 6.5 % (1.0-10.0) Eosinophils (%) (Auto) 1.3 % (0.0-3.0) Basophils (%) (Auto) 1.5 % (0.0-2.0) Erythrocyte Sedimentation Rate 2 MM/HR (0-30) Sodium Level 137 MMOL/L (136-145) Potassium Level 4.0 MMOL/L (3.5-5.1) Chloride Level 94 MMOL/L (98-107) L Carbon Dioxide Level 38 MMOL/L (21-32) H Anion Gap 5 mmol/L (5-15) Blood Urea Nitrogen 39 mg/dL (7-18) H Creatinine 1.6 MG/DL (0.55-1.30) H Estimat Glomerular Filtration Rate 39.3 mL/min (>60) Glucose Level 107 MG/DL (74-106) H Uric Acid 13.6 MG/DL (2.6-7.2) H Calcium Level 8.8 MG/DL (8.5-10.1) Phosphorus Level 4.1 MG/DL (2.5-4.9) Magnesium Level 1.9 MG/DL (1.8-2.4) Total Bilirubin 0.9 MG/DL (0.2-1.0) Aspartate Amino Transf (AST/SGOT) 23 U/L (15-37) Alanine Aminotransferase (ALT/SGPT) 19 U/L (12-78) Alkaline Phosphatase 147 U/L (46-116) H Total Creatine Kinase 170 U/L (26-308) C-Reactive Protein, Quantitative 2.6 mg/dL (0.00-0.90) H Total Protein 6.9 G/DL (6.4-8.2) Albumin 3.0 G/DL (3.4-5.0) L Globulin 3.9 g/dL Albumin/Globulin Ratio 0.8 (1.0-2.7) L Amylase Level 46 U/L (25-115) Lipase 71 U/L (73-393) L Objective HEENT: Atraumatic and normocephalic. Anicteric. Pupils are equal, round, and reactive to light and accommodation. Extraocular muscles intact. NECK: JVP is elevated at about 15 cm. No carotid bruits. Carotid upstrokes 2+ bilaterally. CARDIOVASCULAR: Normal S1 and S2. Regular rhythm, No murmurs, gallop or rubs. LUNGS: Diminished breath sounds in both bases. ABDOMEN: Distended and nontender. Positive bowel sounds. No hepatosplenomegaly EXTREMITIES: There is 1+ bilateral edema. NBA HERRERA Aug 07, 2017 19:44
[2017-08-07 19:50] LABS: APPEARANCE,URINE CLOUDY; BILIRUBIN, URINE 1+ (NEGATIVE); GLUCOSE, URINE (UA) NEGATIVE (NEGATIVE); KETONES,URINE 1+ (NEGATIVE); LEUKOCYTE ESTERASE ,URINE 3+ (NEGATIVE); NITRITE,URINE NEGATIVE (NEGATIVE); PH,URINE 6 (4.5-8.0); PROTEIN,URINE 3+ (NEGATIVE); UROBILINOGEN,URINE 8 MG/DL (0.0-1.0)
[2017-08-07 19:51] LABS: COLOR,URINE AMBER
[2017-08-07 20:00] VITALS: BP 130/67
[2017-08-07] MEDS: HYDROcodone/Acetamin 10/325 tab ORAL PRN (20:25)
[2017-08-07] MEDS: Atorvastatin 20mg tab ORAL SCH (21:05)
[2017-08-08] VITALS: BP 120/70
[2017-08-08 04:00] VITALS: BP 129/85
[2017-08-08 05:13] LABS: BASOPHILS % (AUTO) 1.5 % (0.0-2.0); EOSINOPHILS % (AUTO) 0.8 % (0.0-3.0); HEMATOCRIT 49.4 % (37.0-47.0); HEMOGLOBIN 15.8 G/DL (12.0-16.0); LYMPHOCYTES % (AUTO) 30.7 % (20.0-45.0); MEAN CORPUSCULAR VOLUME 84 FL (80-99); MONOCYTES % (AUTO) 7.3 % (1.0-10.0); NEUTROPHILS % (AUTO) 59.8 % (45.0-75.0); PLATELET COUNT 220 K/UL (150-450); RED BLOOD COUNT 5.88 M/UL (4.20-5.40); RED CELL DISTRIBUTION WIDTH 15.8 % (11.6-14.8); WHITE BLOOD COUNT 10.4 K/UL (4.8-10.8)
[2017-08-08 05:47] LABS: ALANINE AMINOTRANSFERASE 23 U/L (12-78); ALBUMIN 3.2 G/DL (3.4-5.0); ALBUMIN/GLOBULIN RATIO 0.8 (1.0-2.7); ALKALINE PHOSPHATASE 161 U/L (46-116); ANION GAP 2 mmol/L (5-15); ASPARTATE AMINO TRANSFERASE 55 U/L (15-37); BILIRUBIN,TOTAL 1.1 MG/DL (0.2-1.0); BLOOD UREA NITROGEN 51 mg/dL (7-18); CALCIUM 9.1 MG/DL (8.5-10.1); CARBON DIOXIDE 40 MMOL/L (21-32); CHLORIDE 93 MMOL/L (98-107); CREATININE 2.1 MG/DL (0.55-1.30); PHOSPHORUS 4.6 MG/DL (2.5-4.9); POTASSIUM 5.3 MMOL/L (3.5-5.1); SODIUM 134 MMOL/L (136-145)
[2017-08-08 05:50] LABS: BILIRUBIN,DIRECT 0.2 MG/DL (0.0-0.3)
[2017-08-08] MEDS: NovoLOG Insulin Flexpen SUBQ SCH ×4 (06:30→20:37)
[2017-08-08 08:00] VITALS: BP 144/85
[2017-08-08] MEDS: sitaGLIPtin 50mg tab ORAL SCH (08:39)
[2017-08-08] MEDS: Amiodarone 200mg tab ORAL SCH (08:40)
[2017-08-08] MEDS: Eliquis 2.5mg tablet ORAL SCH ×2 (08:40→17:18)
[2017-08-08] MEDS: HYDROcodone/Acetamin 10/325 tab ORAL PRN (08:42)
[2017-08-08] MEDS: Metoprolol 25mg tab ORAL SCH ×2 (08:44→20:35)
--- NOTE | 2017-08-08 08:51 | General Progress Note ---
Assessment/Plan Problem List: (1) Edema ICD Codes: R60.9 - Edema, unspecified SNOMED: 742350901 (2) HTN (hypertension) ICD Codes: I10 - HTN (hypertension) SNOMED: 45604823 (3) DM (diabetes mellitus) ICD Codes: E11.9 - DM (diabetes mellitus) SNOMED: 18751440 (4) CHF exacerbation ICD Codes: I50.9 - Heart failure, unspecified SNOMED: 22468790 Qualifiers: Qualified Codes: I50.9 - Heart failure, unspecified (5) Atrial fibrillation with rapid ventricular response ICD Codes: I48.91 - Unspecified atrial fibrillation SNOMED: 301494379356482 Status: unchanged Assessment/Plan o2 pulm tx ot pt diet cbc bmp am neph eval dc plan w hh Subjective Constitutional: Reports: weakness Respiratory: Reports: shortness of breath Allergies: Coded Allergies: ASPIRIN (Verified Allergy, Intermediate, Hives, 01/06/13) PENICILLINS (Verified Allergy, Intermediate, Hives, 01/06/13) All Systems: reviewed and negative except above Subjective o2nc calm Objective Last 24 Hour Vital Signs Date Time Temp Pulse Resp B/P (MAP) Pulse Ox O2 Delivery O2 Flow Rate FiO2 08/08/17 08:44 53 144/85 08/08/17 08:00 56 08/08/17 04:00 56 08/08/17 04:00 97.5 52 20 129/85 97 Room Air 97.5 08/08/17 00:00 98.1 50 20 120/70 96 Room Air 98.1 08/08/17 00:00 46 08/08/17 00:00 78 08/07/17 21:00 52 130/67 08/07/17 20:00 49 08/07/17 20:00 97.0 52 20 130/67 95 Nasal Cannula 2.0 97.0 08/07/17 16:04 46 08/07/17 16:00 97.9 68 19 105/69 94 Nasal Cannula 2.0 97.9 08/07/17 12:00 97.3 84 22 124/67 95 Nasal Cannula 2.0 97.3 08/07/17 12:00 42 08/07/17 09:36 53 142/52 Intake and Output 08/07/17 08/08/17 19:00 07:00 Intake Total 720 ml Balance 720 ml Intake Oral 720 ml # Voids 6 # Bowel Movements 6 Laboratory Tests 08/07/17 18:30: Urine Color Vee, Urine Appearance Cloudy, Urine pH 6, Urine Specific [place] 1.020, Urine Protein 3+H, Urine Glucose (UA) Negative, Urine Ketones 1+H, Urine Occult Blood 4+H, Urine Nitrite Negative, Urine Bilirubin 1+H, Urine Ictotest Positive, Urine Urobilinogen 8H, Urine Leukocyte Esterase 3+H, Urine RBC 5-10H, Urine WBC 20-30H, Urine Squamous Epithelial Cells ManyH, Urine Bacteria ModerateH, Urine Eosinophils None seen, Urine Random Creatinine [Pending], Urine Random Microalbumin [Pending], Urine Random Total Protein 170H, Urine Random Sodium < 10L, Urine Creatinine 365.9H, Urine Microalbumin/Creatinine Ratio [Pending], Urine Potassium Timed 103H 08/08/17 03:50: White Blood Count 10.4, Red Blood Count 5.88H, Hemoglobin 15.8, Hematocrit 49.4H , Mean Corpuscular Volume 84, Mean Corpuscular Hemoglobin 26.9L, Mean Corpuscular Hemoglobin Concent 32.0, Red Cell Distribution Width 15.8H, Platelet Count 220, Mean Platelet Volume 8.3, Neutrophils (%) (Auto) 59.8, Lymphocytes (%) (Auto) 30.7, Monocytes (%) (Auto) 7.3, Eosinophils (%) (Auto) 0.8, Basophils (%) (Auto) 1.5, Sodium Level 134L, Potassium Level 5.3H, Chloride Level 93L, Carbon Dioxide Level 40H, Anion Gap 2L, Blood Urea Nitrogen 51H, Creatinine 2.1H, Estimat Glomerular Filtration Rate 28.7, Glucose Level 73L , Calcium Level 9.1, Phosphorus Level 4.6, Magnesium Level 2.0, Total Bilirubin 1.1H, Direct Bilirubin 0.2, Aspartate Amino Transf (AST/SGOT) 55H, Alanine Aminotransferase (ALT/SGPT) 23, Alkaline Phosphatase 161H, Total Protein 7.4, Albumin 3.2L, Globulin 4.2, Albumin/Globulin Ratio 0.8L Height (Feet): 5 Height (Inches): 3.00 Weight (Pounds): 277 General Appearance: lethargic EENT: normal ENT inspection Neck: normal alignment Cardiovascular: normal peripheral pulses, normal rate, regular rhythm Respiratory/Chest: chest wall non-tender, decreased breath sounds Abdomen: normal bowel sounds, non tender, soft Extremities: normal inspection Edema: 1+ Arm (L), 1+ Arm (R), 1+ Leg (L), 1+ Leg (R), 1+ Pedal (L), 1+ Pedal ( R), 1+ Generalized Edema: trace edema Neurologic: motor weakness Skin: normal pigmentation, warm/dry CHANA LUBIN Aug 08, 2017 08:51
--- NOTE | 2017-08-08 09:36 | Pulmonology Progress Note ---
Assessment/Plan Problems: (1) ARF (acute renal failure) (2) Atrial fibrillation with rapid ventricular response (3) CHF exacerbation (4) Pulmonary hypertension (5) HTN (hypertension) (6) DM (diabetes mellitus) Assessment/Plan no new complains wants her diet to be advanced hold diuretics, b/o increasing bun/creatinine, creainine higher again on Sidenefil pulmonary edema improved/ resolfved sliding scale diabetic diet. anticoagulation by cardiology Subjective ROS Limited/Unobtainable: No Constitutional: Reports: no symptoms HEENT: Repors: no symptoms Respiratory: Reports: no symptoms Allergies: Coded Allergies: ASPIRIN (Verified Allergy, Intermediate, Hives, 01/06/13) PENICILLINS (Verified Allergy, Intermediate, Hives, 01/06/13) Objective Last 24 Hour Vital Signs Date Time Temp Pulse Resp B/P (MAP) Pulse Ox O2 Delivery O2 Flow Rate FiO2 08/08/17 08:44 53 144/85 08/08/17 08:00 56 08/08/17 08:00 97.7 71 21 144/85 91 Room Air 97.7 08/08/17 04:00 56 08/08/17 04:00 97.5 52 20 129/85 97 Room Air 97.5 08/08/17 00:00 98.1 50 20 120/70 96 Room Air 98.1 08/08/17 00:00 46 08/08/17 00:00 78 08/07/17 21:00 52 130/67 08/07/17 20:00 49 08/07/17 20:00 97.0 52 20 130/67 95 Nasal Cannula 2.0 97.0 08/07/17 16:04 46 08/07/17 16:00 97.9 68 19 105/69 94 Nasal Cannula 2.0 97.9 08/07/17 12:00 97.3 84 22 124/67 95 Nasal Cannula 2.0 97.3 08/07/17 12:00 42 08/07/17 09:36 53 142/52 Intake and Output 08/07/17 08/08/17 19:00 07:00 Intake Total 720 ml Balance 720 ml Intake Oral 720 ml # Voids 6 # Bowel Movements 6 Objective General Appearance: obese Lines, tubes and drains: peripheral HEENT: normocephalic, atraumatic Neck: non-tender, normal alignment Respiratory/Chest: crackles/rales Breasts: no masses Cardiovascular/Chest: normal peripheral pulses, normal rate Abdomen: normal bowel sounds, non tender Genitourinary/Rectal: normal genital exam Extremities: normal range of motion, non-tender, moderate edema Skin Exam: normal pigmentation 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 Laboratory Tests 08/07/17 18:30: Urine Color Vee, Urine Appearance Cloudy, Urine pH 6, Urine Specific [place] 1.020, Urine Protein 3+H, Urine Glucose (UA) Negative, Urine Ketones 1+H, Urine Occult Blood 4+H, Urine Nitrite Negative, Urine Bilirubin 1+H, Urine Ictotest Positive, Urine Urobilinogen 8H, Urine Leukocyte Esterase 3+H, Urine RBC 5-10H, Urine WBC 20-30H, Urine Squamous Epithelial Cells ManyH, Urine Bacteria ModerateH, Urine Eosinophils None seen, Urine Random Creatinine [Pending], Urine Random Microalbumin [Pending], Urine Random Total Protein 170H, Urine Random Sodium < 10L, Urine Creatinine 365.9H, Urine Microalbumin/Creatinine Ratio [Pending], Urine Potassium Timed 103H 08/08/17 03:50: White Blood Count 10.4, Red Blood Count 5.88H, Hemoglobin 15.8, Hematocrit 49.4H , Mean Corpuscular Volume 84, Mean Corpuscular Hemoglobin 26.9L, Mean Corpuscular Hemoglobin Concent 32.0, Red Cell Distribution Width 15.8H, Platelet Count 220, Mean Platelet Volume 8.3, Neutrophils (%) (Auto) 59.8, Lymphocytes (%) (Auto) 30.7, Monocytes (%) (Auto) 7.3, Eosinophils (%) (Auto) 0.8, Basophils (%) (Auto) 1.5, Sodium Level 134L, Potassium Level 5.3H, Chloride Level 93L, Carbon Dioxide Level 40H, Anion Gap 2L, Blood Urea Nitrogen 51H, Creatinine 2.1H, Estimat Glomerular Filtration Rate 28.7, Glucose Level 73L , Calcium Level 9.1, Phosphorus Level 4.6, Magnesium Level 2.0, Total Bilirubin 1.1H, Direct Bilirubin 0.2, Aspartate Amino Transf (AST/SGOT) 55H, Alanine Aminotransferase (ALT/SGPT) 23, Alkaline Phosphatase 161H, Total Protein 7.4, Albumin 3.2L, Globulin 4.2, Albumin/Globulin Ratio 0.8L Current Medications Medications (Trade) Dose Ordered Sig/Toya Route PRN Reason Start Time Stop Time Status Last Admin Dose Admin Acetaminophen (Tylenol) 650 mg Q4H PRN ORAL Mild Pain/Temp > 100.5 08/06/17 13:15 09/02/17 13:14 08/06/17 17:39 Acetaminophen/ Hydrocodone Bitart ([place] 10/325) 1 tab Q4H PRN ORAL For Pain 08/07/17 20:15 08/14/17 20:14 08/08/17 08:42 Amiodarone HCl (Cordarone) 200 mg EVERY 12 HOURS ORAL 08/06/17 21:00 09/04/17 20:59 08/08/17 08:40 Apixaban (Eliquis) 5 mg BID ORAL 08/06/17 18:00 08/27/17 23:44 08/08/17 08:40 Atorvastatin Calcium (Lipitor) 40 mg QHS ORAL 08/06/17 21:00 08/28/17 20:59 08/07/17 21:05 Cetylpyridinium Chloride (Cepacol) 1 lozg Q3H PRN CÉSAR Throat pain 08/06/17 13:15 09/02/17 13:14 Dextrose (Dextrose 50%) 25 ml STAT PRN IV BS 60-69mg/dl 08/07/17 13:16 09/02/17 13:15 Dextrose (Dextrose 50%) 50 ml STAT PRN IV BS less than 60mg/dl 08/07/17 13:16 09/02/17 13:15 Gabapentin (Neurontin) 300 mg BID ORAL 08/06/17 18:00 08/27/17 18:29 08/08/17 08:39 Insulin Aspart (NovoLOG) BEFORE MEALS AND HS SUBQ 08/06/17 16:30 08/27/17 20:59 08/07/17 21:06 Metoprolol Tartrate (Lopressor) 50 mg Q12HR ORAL 08/06/17 21:00 09/03/17 20:59 08/07/17 09:36 Ondansetron HCl (Zofran) 4 mg Q6H PRN IVP Nausea & Vomiting 08/06/17 13:23 08/27/17 13:22 Polyethylene Glycol (Miralax) 17 gm DAILYPRN PRN ORAL Constipation 08/06/17 13:24 09/05/17 13:23 Sitagliptin Phosphate (Januvia) 50 mg DAILY ORAL 08/07/17 09:00 08/28/17 08:59 08/08/17 08:39 Temazepam (Restoril) 15 mg HSPRN PRN ORAL Insomnia 08/06/17 21:00 08/11/17 20:59 Jesús Farrell MD Aug 08, 2017 09:36
[2017-08-08 12:00] VITALS: BP 128/83
[2017-08-08 16:00] VITALS: BP 130/71
[2017-08-08 20:00] VITALS: BP 148/51
[2017-08-08] MEDS: Atorvastatin 20mg tab ORAL SCH (20:35)
--- NOTE | 2017-08-08 21:35 | Nephrology Progress Note ---
Assessment/Plan Assessment 1. Acute renal failure. due to overdiuresis 2. Chronic kidney disease due to diabetic nephropathy with 4+ proteinuria. 3. Urinary tract infection. 4. Fluid overload. 5. Morbid obesity. 6. hyperkalemia 7. Hypertension Plan low k diet hold diuretic monitoring renal function avoid NSAID daily wt Subjective Constitutional: Reports: no symptoms HEENT: Reports: no symptoms Genitourinary: Reports: no symptoms Neurologic/Psychiatric: Reports: no symptoms Subjective alert and wake feeling better Objective Objective Last 24 Hour Vital Signs Date Time Temp Pulse Resp B/P (MAP) Pulse Ox O2 Delivery O2 Flow Rate FiO2 08/08/17 20:35 53 148/51 08/08/17 20:00 97.6 53 20 148/51 94 Room Air 97.6 08/08/17 16:00 45 08/08/17 16:00 97.5 47 19 130/71 92 Room Air 97.5 08/08/17 12:00 55 08/08/17 12:00 98.1 57 21 128/83 92 Room Air 98.1 08/08/17 08:44 53 144/85 08/08/17 08:00 56 08/08/17 08:00 97.7 71 21 144/85 91 Room Air 97.7 08/08/17 04:00 56 08/08/17 04:00 97.5 52 20 129/85 97 Room Air 97.5 08/08/17 00:00 98.1 50 20 120/70 96 Room Air 98.1 08/08/17 00:00 46 08/08/17 00:00 78 Intake and Output 08/07/17 08/08/17 19:00 07:00 Intake Total 720 ml Balance 720 ml Intake Oral 720 ml # Voids 6 # Bowel Movements 6 Laboratory Tests 08/08/17 03:50: White Blood Count 10.4, Red Blood Count 5.88H, Hemoglobin 15.8, Hematocrit 49.4H , Mean Corpuscular Volume 84, Mean Corpuscular Hemoglobin 26.9L, Mean Corpuscular Hemoglobin Concent 32.0, Red Cell Distribution Width 15.8H, Platelet Count 220, Mean Platelet Volume 8.3, Neutrophils (%) (Auto) 59.8, Lymphocytes (%) (Auto) 30.7, Monocytes (%) (Auto) 7.3, Eosinophils (%) (Auto) 0.8, Basophils (%) (Auto) 1.5, Sodium Level 134L, Potassium Level 5.3H, Chloride Level 93L, Carbon Dioxide Level 40H, Anion Gap 2L, Blood Urea Nitrogen 51H, Creatinine 2.1H, Estimat Glomerular Filtration Rate 28.7, Glucose Level 73L , Calcium Level 9.1, Phosphorus Level 4.6, Magnesium Level 2.0, Total Bilirubin 1.1H, Direct Bilirubin 0.2, Aspartate Amino Transf (AST/SGOT) 55H, Alanine Aminotransferase (ALT/SGPT) 23, Alkaline Phosphatase 161H, Total Protein 7.4, Albumin 3.2L, Globulin 4.2, Albumin/Globulin Ratio 0.8L 08/08/17 17:21: Magnesium Level 2.2 Height (Feet): 5 Height (Inches): 3.00 Weight (Pounds): 277 Objective HEAD AND NECK: No JVP. No LAD. No thyromegaly. Extraocular movement intact. Pupils are reactive to light and accommodation. LUNGS: Clear to auscultation. CARDIAC: Regular rate and rhythm. S1 and S2. No murmur. No rub. ABDOMEN: Obese, nontender, and nondistended. EXTREMITY: A 1+ to 2+ edema. No clubbing. No cyanosis. PRINCESS BAXTER Aug 08, 2017 21:35
--- NOTE | 2017-08-08 23:38 | Cardiology Progress Note ---
Assessment/Plan Assessment/Plan 1. Predominantly right heart failure with associated anasarca, off metolazone and lasix, creatinine up to 2.1. 2. Acute on systolic and diastolic congestive heart failure, off diuretics. Continue low dose metoprolol. 3. New onset atrial flutter converted to sinus rhythm with electrical DCCV, RAMIRO revealed no left atrial appendage thrombus. Decrease amiodarone to 200mg daily, continue Eliquis. 4. History of diabetes mellitus. 5. HTN, stage II, continue the current regimen. 6. RACHELLE on CKD. 7. History of COPD. Subjective Subjective Still sinus bradycardia with VPC bigeminy. Objective Last 24 Hour Vital Signs Date Time Temp Pulse Resp B/P (MAP) Pulse Ox O2 Delivery O2 Flow Rate FiO2 08/08/17 20:35 53 148/51 08/08/17 20:00 43 08/08/17 20:00 97.6 53 20 148/51 94 Room Air 97.6 08/08/17 16:00 45 08/08/17 16:00 97.5 47 19 130/71 92 Room Air 97.5 08/08/17 12:00 55 08/08/17 12:00 98.1 57 21 128/83 92 Room Air 98.1 08/08/17 08:44 53 144/85 08/08/17 08:00 56 08/08/17 08:00 97.7 71 21 144/85 91 Room Air 97.7 08/08/17 04:00 56 08/08/17 04:00 97.5 52 20 129/85 97 Room Air 97.5 08/08/17 00:00 98.1 50 20 120/70 96 Room Air 98.1 08/08/17 00:00 46 08/08/17 00:00 78 Intake and Output 08/07/17 08/08/17 19:00 07:00 Intake Total 720 ml Balance 720 ml Intake Oral 720 ml # Voids 6 # Bowel Movements 6 2D Echo: EF 30%,Global LV HK,Sev RA/RV dilation,RVSP 65 mmHg,Mild AR/MR,Grade I LVDD Laboratory Tests Test 08/08/17 03:50 08/08/17 17:21 White Blood Count 10.4 K/UL (4.8-10.8) Red Blood Count 5.88 M/UL (4.20-5.40) H Hemoglobin 15.8 G/DL (12.0-16.0) Hematocrit 49.4 % (37.0-47.0) H Mean Corpuscular Volume 84 FL (80-99) Mean Corpuscular Hemoglobin 26.9 PG (27.0-31.0) L Mean Corpuscular Hemoglobin Concent 32.0 G/DL (32.0-36.0) Red Cell Distribution Width 15.8 % (11.6-14.8) H Platelet Count 220 K/UL (150-450) Mean Platelet Volume 8.3 FL (6.5-10.1) Neutrophils (%) (Auto) 59.8 % (45.0-75.0) Lymphocytes (%) (Auto) 30.7 % (20.0-45.0) Monocytes (%) (Auto) 7.3 % (1.0-10.0) Eosinophils (%) (Auto) 0.8 % (0.0-3.0) Basophils (%) (Auto) 1.5 % (0.0-2.0) Sodium Level 134 MMOL/L (136-145) L Potassium Level 5.3 MMOL/L (3.5-5.1) H Chloride Level 93 MMOL/L (98-107) L Carbon Dioxide Level 40 MMOL/L (21-32) H Anion Gap 2 mmol/L (5-15) L Blood Urea Nitrogen 51 mg/dL (7-18) H Creatinine 2.1 MG/DL (0.55-1.30) H Estimat Glomerular Filtration Rate 28.7 mL/min (>60) Glucose Level 73 MG/DL (74-106) L Calcium Level 9.1 MG/DL (8.5-10.1) Phosphorus Level 4.6 MG/DL (2.5-4.9) Magnesium Level 2.0 MG/DL (1.8-2.4) 2.2 MG/DL (1.8-2.4) Total Bilirubin 1.1 MG/DL (0.2-1.0) H Direct Bilirubin 0.2 MG/DL (0.0-0.3) Aspartate Amino Transf (AST/SGOT) 55 U/L (15-37) H Alanine Aminotransferase (ALT/SGPT) 23 U/L (12-78) Alkaline Phosphatase 161 U/L (46-116) H Total Protein 7.4 G/DL (6.4-8.2) Albumin 3.2 G/DL (3.4-5.0) L Globulin 4.2 g/dL Albumin/Globulin Ratio 0.8 (1.0-2.7) L Objective HEENT: Atraumatic and normocephalic. Anicteric. Pupils are equal, round, and reactive to light and accommodation. Extraocular muscles intact. NECK: JVP is elevated at about 15 cm. No carotid bruits. Carotid upstrokes 2+ bilaterally. CARDIOVASCULAR: Normal S1 and S2. Regular rhythm, No murmurs, gallop or rubs. LUNGS: Diminished breath sounds in both bases. ABDOMEN: Distended and nontender. Positive bowel sounds. No hepatosplenomegaly EXTREMITIES: There is 1+ bilateral edema. NBA HERRERA Aug 08, 2017 23:38
[2017-08-09] VITALS: BP 114/70
[2017-08-09 04:00] VITALS: BP 143/80
[2017-08-09 04:46] LABS: BASOPHILS % (AUTO) 1.3 % (0.0-2.0); EOSINOPHILS % (AUTO) 1.3 % (0.0-3.0); HEMATOCRIT 46.8 % (37.0-47.0); HEMOGLOBIN 14.4 G/DL (12.0-16.0); MEAN CORPUSCULAR VOLUME 84 FL (80-99); MONOCYTES % (AUTO) 6.5 % (1.0-10.0); NEUTROPHILS % (AUTO) 62.8 % (45.0-75.0); PLATELET COUNT 276 K/UL (150-450); RED BLOOD COUNT 5.55 M/UL (4.20-5.40); RED CELL DISTRIBUTION WIDTH 15.9 % (11.6-14.8); WHITE BLOOD COUNT 9.4 K/UL (4.8-10.8)
[2017-08-09 05:01] LABS: ALANINE AMINOTRANSFERASE 23 U/L (12-78); ALBUMIN 3.1 G/DL (3.4-5.0); ALBUMIN/GLOBULIN RATIO 0.8 (1.0-2.7); ALKALINE PHOSPHATASE 185 U/L (46-116); ANION GAP 7 mmol/L (5-15); ASPARTATE AMINO TRANSFERASE 31 U/L (15-37); BILIRUBIN,TOTAL 0.9 MG/DL (0.2-1.0); BLOOD UREA NITROGEN 60 mg/dL (7-18); CALCIUM 8.9 MG/DL (8.5-10.1); CARBON DIOXIDE 36 MMOL/L (21-32); CHLORIDE 94 MMOL/L (98-107); CREATININE 2.3 MG/DL (0.55-1.30); POTASSIUM 3.8 MMOL/L (3.5-5.1); SODIUM 137 MMOL/L (136-145)
[2017-08-09 05:29] LABS: PHOSPHORUS 5.5 MG/DL (2.5-4.9)
[2017-08-09] MEDS: NovoLOG Insulin Flexpen SUBQ SCH ×4 (06:30→22:16)
--- NOTE | 2017-08-09 07:27 | General Progress Note ---
Assessment/Plan Problem List: (1) Edema ICD Codes: R60.9 - Edema, unspecified SNOMED: 579709505 (2) HTN (hypertension) ICD Codes: I10 - HTN (hypertension) SNOMED: 62021449 (3) DM (diabetes mellitus) ICD Codes: E11.9 - DM (diabetes mellitus) SNOMED: 89110471 (4) CHF exacerbation ICD Codes: I50.9 - Heart failure, unspecified SNOMED: 69350414 Qualifiers: Qualified Codes: I50.9 - Heart failure, unspecified (5) Atrial fibrillation with rapid ventricular response ICD Codes: I48.91 - Unspecified atrial fibrillation SNOMED: 894624501578162 Status: unchanged Assessment/Plan o2 pulm tx ot pt diet cbc bmp am neph eval dc plan w hh Subjective Constitutional: Reports: weakness Allergies: Coded Allergies: ASPIRIN (Verified Allergy, Intermediate, Hives, 01/06/13) PENICILLINS (Verified Allergy, Intermediate, Hives, 01/06/13) All Systems: reviewed and negative except above Subjective o2nc calm Objective Last 24 Hour Vital Signs Date Time Temp Pulse Resp B/P (MAP) Pulse Ox O2 Delivery O2 Flow Rate FiO2 08/09/17 04:00 47 08/09/17 04:00 97.7 52 20 143/80 98 Nasal Cannula 2.0 97.7 08/09/17 00:00 44 08/09/17 00:00 97.6 82 18 114/70 97 Nasal Cannula 2.0 97.6 08/08/17 20:35 53 148/51 08/08/17 20:00 43 08/08/17 20:00 97.6 53 20 148/51 94 Room Air 97.6 08/08/17 16:00 45 08/08/17 16:00 97.5 47 19 130/71 92 Room Air 97.5 08/08/17 12:00 55 08/08/17 12:00 98.1 57 21 128/83 92 Room Air 98.1 08/08/17 08:44 53 144/85 08/08/17 08:00 56 08/08/17 08:00 97.7 71 21 144/85 91 Room Air 97.7 Intake and Output 08/08/17 08/09/17 19:00 07:00 Intake Total 600 ml 120 ml Balance 600 ml 120 ml Intake Oral 600 ml 100 ml Other 20 ml # Voids 3 2 # Bowel Movements 3 Laboratory Tests 08/08/17 17:21: Magnesium Level 2.2 08/09/17 03:15: Magnesium Level 2.3, White Blood Count 9.4, Red Blood Count 5.55H, Hemoglobin 14.4, Hematocrit 46.8, Mean Corpuscular Volume 84, Mean Corpuscular Hemoglobin 25.9L, Mean Corpuscular Hemoglobin Concent 30.7L, Red Cell Distribution Width 15.9H, Platelet Count 276, Mean Platelet Volume 8.0, Neutrophils (%) (Auto) 62.8 , Lymphocytes (%) (Auto) 28.0, Monocytes (%) (Auto) 6.5, Eosinophils (%) (Auto) 1.3, Basophils (%) (Auto) 1.3, Sodium Level 137, Potassium Level 3.8, Chloride Level 94L, Carbon Dioxide Level 36H, Anion Gap 7, Blood Urea Nitrogen 60H, Creatinine 2.3H, Estimat Glomerular Filtration Rate 25.9, Glucose Level 99, Calcium Level 8.9, Phosphorus Level 5.5H, Total Bilirubin 0.9, Aspartate Amino Transf (AST/SGOT) 31, Alanine Aminotransferase (ALT/SGPT) 23, Alkaline Phosphatase 185H, Total Protein 7.0, Albumin 3.1L, Globulin 3.9, Albumin/ Globulin Ratio 0.8L Height (Feet): 5 Height (Inches): 3.00 Weight (Pounds): 279 General Appearance: lethargic EENT: normal ENT inspection Neck: normal alignment Cardiovascular: normal peripheral pulses, normal rate, regular rhythm Respiratory/Chest: chest wall non-tender, lungs clear, normal breath sounds Abdomen: normal bowel sounds, non tender, soft Edema: 1+ Arm (L), 1+ Arm (R), 1+ Leg (L), 1+ Leg (R), 1+ Pedal (L), 1+ Pedal ( R), 1+ Generalized Edema: trace edema Neurologic: responsive, motor weakness Skin: normal pigmentation, warm/dry CHANA LUBIN Aug 09, 2017 07:27
[2017-08-09 08:00] VITALS: BP 127/86
[2017-08-09] MEDS: Metoprolol 25mg tab ORAL SCH (08:55)
[2017-08-09] MEDS: Eliquis 2.5mg tablet ORAL SCH ×2 (08:59→17:48)
[2017-08-09] MEDS: sitaGLIPtin 50mg tab ORAL SCH (08:59)
[2017-08-09] MEDS ORDERED: Amiodarone 200mg tab ORAL SCH (09:00)
--- NOTE | 2017-08-09 09:57 | Pulmonology Progress Note ---
Assessment/Plan Problems: (1) ARF (acute renal failure) (2) Atrial fibrillation with rapid ventricular response (3) CHF exacerbation (4) Pulmonary hypertension (5) HTN (hypertension) (6) DM (diabetes mellitus) Assessment/Plan no new complains hold diuretics, b/o increasing bun/creatinine, creatinine higher again on Sidenefil pulmonary edema improved/ resolved sliding scale diabetic diet. anticoagulation by cardiology Subjective ROS Limited/Unobtainable: No Constitutional: Reports: no symptoms HEENT: Repors: no symptoms Respiratory: Reports: no symptoms Allergies: Coded Allergies: ASPIRIN (Verified Allergy, Intermediate, Hives, 01/06/13) PENICILLINS (Verified Allergy, Intermediate, Hives, 01/06/13) Objective Last 24 Hour Vital Signs Date Time Temp Pulse Resp B/P (MAP) Pulse Ox O2 Delivery O2 Flow Rate FiO2 08/09/17 08:55 51 127/86 08/09/17 08:00 51 08/09/17 08:00 97.9 53 21 127/86 91 Room Air 97.9 08/09/17 04:00 47 08/09/17 04:00 97.7 52 20 143/80 98 Nasal Cannula 2.0 97.7 08/09/17 00:00 44 08/09/17 00:00 97.6 82 18 114/70 97 Nasal Cannula 2.0 97.6 08/08/17 20:35 53 148/51 08/08/17 20:00 43 08/08/17 20:00 97.6 53 20 148/51 94 Room Air 97.6 08/08/17 16:00 45 08/08/17 16:00 97.5 47 19 130/71 92 Room Air 97.5 08/08/17 12:00 55 08/08/17 12:00 98.1 57 21 128/83 92 Room Air 98.1 Intake and Output 08/08/17 08/09/17 19:00 07:00 Intake Total 600 ml 120 ml Balance 600 ml 120 ml Intake Oral 600 ml 100 ml Other 20 ml # Voids 3 2 # Bowel Movements 3 Objective General Appearance: obese Lines, tubes and drains: peripheral HEENT: normocephalic, atraumatic Neck: non-tender, normal alignment Respiratory/Chest: crackles/rales Breasts: no masses Cardiovascular/Chest: normal peripheral pulses, normal rate Abdomen: normal bowel sounds, non tender Genitourinary/Rectal: normal genital exam Extremities: normal range of motion, non-tender, moderate edema Skin Exam: normal pigmentation 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 Microbiology Date/Time Source Procedure Growth Status 08/07/17 18:30 Urine,Clean Catch Urine Culture - Final Mixed Urogenital Contaminants Complete Laboratory Tests 08/08/17 17:21: Magnesium Level 2.2 08/09/17 03:15: Magnesium Level 2.3, White Blood Count 9.4, Red Blood Count 5.55H, Hemoglobin 14.4, Hematocrit 46.8, Mean Corpuscular Volume 84, Mean Corpuscular Hemoglobin 25.9L, Mean Corpuscular Hemoglobin Concent 30.7L, Red Cell Distribution Width 15.9H, Platelet Count 276, Mean Platelet Volume 8.0, Neutrophils (%) (Auto) 62.8 , Lymphocytes (%) (Auto) 28.0, Monocytes (%) (Auto) 6.5, Eosinophils (%) (Auto) 1.3, Basophils (%) (Auto) 1.3, Sodium Level 137, Potassium Level 3.8, Chloride Level 94L, Carbon Dioxide Level 36H, Anion Gap 7, Blood Urea Nitrogen 60H, Creatinine 2.3H, Estimat Glomerular Filtration Rate 25.9, Glucose Level 99, Calcium Level 8.9, Phosphorus Level 5.5H, Total Bilirubin 0.9, Aspartate Amino Transf (AST/SGOT) 31, Alanine Aminotransferase (ALT/SGPT) 23, Alkaline Phosphatase 185H, Total Protein 7.0, Albumin 3.1L, Globulin 3.9, Albumin/ Globulin Ratio 0.8L Current Medications Medications (Trade) Dose Ordered Sig/Toya Route PRN Reason Start Time Stop Time Status Last Admin Dose Admin Acetaminophen (Tylenol) 650 mg Q4H PRN ORAL Mild Pain/Temp > 100.5 08/06/17 13:15 09/02/17 13:14 08/08/17 20:44 Acetaminophen/ Hydrocodone Bitart ([place] 10/325) 1 tab Q4H PRN ORAL For Pain 08/07/17 20:15 08/14/17 20:14 08/08/17 08:42 Amiodarone HCl (Cordarone) 200 mg DAILY ORAL 08/09/17 09:00 09/04/17 20:59 Apixaban (Eliquis) 5 mg BID ORAL 08/06/17 18:00 08/27/17 23:44 08/09/17 08:59 Atorvastatin Calcium (Lipitor) 40 mg QHS ORAL 08/06/17 21:00 08/28/17 20:59 08/08/17 20:35 Cetylpyridinium Chloride (Cepacol) 1 lozg Q3H PRN CÉSAR Throat pain 08/06/17 13:15 09/02/17 13:14 Dextrose (Dextrose 50%) 25 ml STAT PRN IV BS 60-69mg/dl 08/07/17 13:16 09/02/17 13:15 Dextrose (Dextrose 50%) 50 ml STAT PRN IV BS less than 60mg/dl 08/07/17 13:16 09/02/17 13:15 Gabapentin (Neurontin) 300 mg BID ORAL 08/06/17 18:00 08/27/17 18:29 08/09/17 08:59 Insulin Aspart (NovoLOG) BEFORE MEALS AND HS SUBQ 08/06/17 16:30 08/27/17 20:59 08/08/17 20:37 Metoprolol Tartrate (Lopressor) 25 mg Q12HR ORAL 08/09/17 21:00 09/03/17 20:59 Ondansetron HCl (Zofran) 4 mg Q6H PRN IVP Nausea & Vomiting 08/06/17 13:23 08/27/17 13:22 Polyethylene Glycol (Miralax) 17 gm DAILYPRN PRN ORAL Constipation 08/06/17 13:24 09/05/17 13:23 Sitagliptin Phosphate (Januvia) 50 mg DAILY ORAL 08/07/17 09:00 08/28/17 08:59 08/09/17 08:59 Temazepam (Restoril) 15 mg HSPRN PRN ORAL Insomnia 08/06/17 21:00 08/11/17 20:59 Jesús Farrell MD Aug 09, 2017 09:57
[2017-08-09 12:00] VITALS: BP 151/87
[2017-08-09 16:00] VITALS: BP 121/77
[2017-08-09 20:00] VITALS: BP 150/75
--- NOTE | 2017-08-09 20:40 | Nephrology Progress Note ---
Assessment/Plan Assessment 1. Acute renal failure.worsen 2. Chronic kidney disease due to diabetic nephropathy with 4+ proteinuria. 3. Urinary tract infection. 4. Fluid overload. 5. Morbid obesity. 6. hyperkalemia 7. Hypertension Plan repeat urine study hold diuretic monitoring renal function avoid NSAID daily wt Subjective Constitutional: Reports: no symptoms HEENT: Reports: no symptoms Genitourinary: Reports: no symptoms Neurologic/Psychiatric: Reports: no symptoms Subjective alert and wake no complaints Objective Objective Last 24 Hour Vital Signs Date Time Temp Pulse Resp B/P (MAP) Pulse Ox O2 Delivery O2 Flow Rate FiO2 08/09/17 16:00 57 08/09/17 16:00 97.9 59 20 121/77 98 Room Air 97.9 08/09/17 12:00 97.5 54 20 151/87 98 Nasal Cannula 2.0 97.5 08/09/17 12:00 53 08/09/17 08:55 51 127/86 08/09/17 08:00 51 08/09/17 08:00 97.9 53 21 127/86 91 Room Air 97.9 08/09/17 04:00 47 08/09/17 04:00 97.7 52 20 143/80 98 Nasal Cannula 2.0 97.7 08/09/17 00:00 44 08/09/17 00:00 97.6 82 18 114/70 97 Nasal Cannula 2.0 97.6 Intake and Output 08/08/17 08/09/17 19:00 07:00 Intake Total 600 ml 120 ml Balance 600 ml 120 ml Intake Oral 600 ml 100 ml Other 20 ml # Voids 3 2 # Bowel Movements 3 Laboratory Tests 08/09/17 03:15: White Blood Count 9.4, Red Blood Count 5.55H, Hemoglobin 14.4, Hematocrit 46.8, Mean Corpuscular Volume 84, Mean Corpuscular Hemoglobin 25.9L, Mean Corpuscular Hemoglobin Concent 30.7L, Red Cell Distribution Width 15.9H, Platelet Count 276 , Mean Platelet Volume 8.0, Neutrophils (%) (Auto) 62.8, Lymphocytes (%) (Auto) 28.0, Monocytes (%) (Auto) 6.5, Eosinophils (%) (Auto) 1.3, Basophils (%) (Auto ) 1.3, Sodium Level 137, Potassium Level 3.8, Chloride Level 94L, Carbon Dioxide Level 36H, Anion Gap 7, Blood Urea Nitrogen 60H, Creatinine 2.3H, Estimat Glomerular Filtration Rate 25.9, Glucose Level 99, Calcium Level 8.9, Phosphorus Level 5.5H, Magnesium Level 2.3, Total Bilirubin 0.9, Aspartate Amino Transf (AST/SGOT) 31, Alanine Aminotransferase (ALT/SGPT) 23, Alkaline Phosphatase 185H, Total Protein 7.0, Albumin 3.1L, Globulin 3.9, Albumin/ Globulin Ratio 0.8L Height (Feet): 5 Height (Inches): 3.00 Weight (Pounds): 279 Objective HEAD AND NECK: No JVP. No LAD. No thyromegaly. Extraocular movement intact. Pupils are reactive to light and accommodation. LUNGS: Clear to auscultation. CARDIAC: Regular rate and rhythm. S1 and S2. No murmur. No rub. ABDOMEN: Obese, nontender, and nondistended. EXTREMITY: A 1+ to 2+ edema. No clubbing. No cyanosis. PRINCESS BAXTER Aug 09, 2017 20:40
[2017-08-09] MEDS ORDERED: Metoprolol 25mg tab ORAL SCH (21:00)
[2017-08-09] MEDS: Atorvastatin 20mg tab ORAL SCH (21:45)
--- NOTE | 2017-08-09 22:24 | Cardiology Progress Note ---
Assessment/Plan Assessment/Plan 1. Sinus bradycardia due to combination of amiodarone and metoprolol, decrease metoprolol dose to one half. 2. Acute on systolic and diastolic congestive heart failure, off diuretics. Continue low dose metoprolol. 3. New onset atrial flutter converted to sinus rhythm with electrical DCCV, RAMIRO revealed no left atrial appendage thrombus. Decrease amiodarone to 200mg daily, continue Eliquis. 4. Right heart failure. 5. HTN, stage II, continue the current regimen. 6. RACHELLE on CKD. 7. History of COPD. Subjective Subjective Sinus bradycardia at 49. Objective Last 24 Hour Vital Signs Date Time Temp Pulse Resp B/P (MAP) Pulse Ox O2 Delivery O2 Flow Rate FiO2 08/09/17 21:00 48 150/75 08/09/17 20:58 96 Nasal Cannula 2.0 28 08/09/17 20:58 Nasal Cannula 2.0 28 08/09/17 20:00 97.5 48 20 150/75 96 Room Air 97.5 08/09/17 20:00 53 08/09/17 16:00 57 08/09/17 16:00 97.9 59 20 121/77 98 Room Air 97.9 08/09/17 12:00 97.5 54 20 151/87 98 Nasal Cannula 2.0 97.5 08/09/17 12:00 53 08/09/17 08:55 51 127/86 08/09/17 08:00 51 08/09/17 08:00 97.9 53 21 127/86 91 Room Air 97.9 08/09/17 04:00 47 08/09/17 04:00 97.7 52 20 143/80 98 Nasal Cannula 2.0 97.7 08/09/17 00:00 44 08/09/17 00:00 97.6 82 18 114/70 97 Nasal Cannula 2.0 97.6 Intake and Output 08/08/17 08/09/17 19:00 07:00 Intake Total 600 ml 120 ml Balance 600 ml 120 ml Intake Oral 600 ml 100 ml Other 20 ml # Voids 3 2 # Bowel Movements 3 2D Echo: EF 30%,Global LV HK,Sev RA/RV dilation,RVSP 65 mmHg,Mild AR/MR,Grade I LVDD Laboratory Tests Test 08/09/17 03:15 White Blood Count 9.4 K/UL (4.8-10.8) Red Blood Count 5.55 M/UL (4.20-5.40) H Hemoglobin 14.4 G/DL (12.0-16.0) Hematocrit 46.8 % (37.0-47.0) Mean Corpuscular Volume 84 FL (80-99) Mean Corpuscular Hemoglobin 25.9 PG (27.0-31.0) L Mean Corpuscular Hemoglobin Concent 30.7 G/DL (32.0-36.0) L Red Cell Distribution Width 15.9 % (11.6-14.8) H Platelet Count 276 K/UL (150-450) Mean Platelet Volume 8.0 FL (6.5-10.1) Neutrophils (%) (Auto) 62.8 % (45.0-75.0) Lymphocytes (%) (Auto) 28.0 % (20.0-45.0) Monocytes (%) (Auto) 6.5 % (1.0-10.0) Eosinophils (%) (Auto) 1.3 % (0.0-3.0) Basophils (%) (Auto) 1.3 % (0.0-2.0) Sodium Level 137 MMOL/L (136-145) Potassium Level 3.8 MMOL/L (3.5-5.1) Chloride Level 94 MMOL/L (98-107) L Carbon Dioxide Level 36 MMOL/L (21-32) H Anion Gap 7 mmol/L (5-15) Blood Urea Nitrogen 60 mg/dL (7-18) H Creatinine 2.3 MG/DL (0.55-1.30) H Estimat Glomerular Filtration Rate 25.9 mL/min (>60) Glucose Level 99 MG/DL (74-106) Calcium Level 8.9 MG/DL (8.5-10.1) Phosphorus Level 5.5 MG/DL (2.5-4.9) H Magnesium Level 2.3 MG/DL (1.8-2.4) Total Bilirubin 0.9 MG/DL (0.2-1.0) Aspartate Amino Transf (AST/SGOT) 31 U/L (15-37) Alanine Aminotransferase (ALT/SGPT) 23 U/L (12-78) Alkaline Phosphatase 185 U/L (46-116) H Total Protein 7.0 G/DL (6.4-8.2) Albumin 3.1 G/DL (3.4-5.0) L Globulin 3.9 g/dL Albumin/Globulin Ratio 0.8 (1.0-2.7) L Microbiology Date/Time Source Procedure Growth Status 08/07/17 18:30 Urine,Clean Catch Urine Culture - Final Mixed Urogenital Contaminants Complete Objective HEENT: Atraumatic and normocephalic. Anicteric. Pupils are equal, round, and reactive to light and accommodation. Extraocular muscles intact. NECK: JVP is elevated at about 15 cm. No carotid bruits. Carotid upstrokes 2+ bilaterally. CARDIOVASCULAR: Normal S1 and S2. Regular rhythm, No murmurs, gallop or rubs. LUNGS: Diminished breath sounds in both bases. ABDOMEN: Distended and nontender. Positive bowel sounds. No hepatosplenomegaly EXTREMITIES: There is 1+ bilateral edema. NBA HERRERA Aug 09, 2017 22:24
[2017-08-10] VITALS: BP 115/78
[2017-08-10 04:00] VITALS: BP 151/81
[2017-08-10] MEDS ORDERED: HYDROcodone/Acetamin 10/325 tab ORAL PRN (04:15)
[2017-08-10 06:35] LABS: BASOPHILS % (AUTO) 1.5 % (0.0-2.0); EOSINOPHILS % (AUTO) 1.5 % (0.0-3.0); HEMATOCRIT 47.9 % (37.0-47.0); HEMOGLOBIN 14.7 G/DL (12.0-16.0); MEAN CORPUSCULAR VOLUME 84 FL (80-99); MONOCYTES % (AUTO) 5.7 % (1.0-10.0); NEUTROPHILS % (AUTO) 58.3 % (45.0-75.0); PLATELET COUNT 264 K/UL (150-450); RED BLOOD COUNT 5.67 M/UL (4.20-5.40); WHITE BLOOD COUNT 8.4 K/UL (4.8-10.8)
[2017-08-10 06:55] LABS: ALANINE AMINOTRANSFERASE 24 U/L (12-78); ALBUMIN 3.2 G/DL (3.4-5.0); ALBUMIN/GLOBULIN RATIO 0.8 (1.0-2.7); ALKALINE PHOSPHATASE 194 U/L (46-116); ANION GAP 3 mmol/L (5-15); ASPARTATE AMINO TRANSFERASE 33 U/L (15-37); BILIRUBIN,TOTAL 0.9 MG/DL (0.2-1.0); BLOOD UREA NITROGEN 54 mg/dL (7-18); CARBON DIOXIDE 38 MMOL/L (21-32); CHLORIDE 95 MMOL/L (98-107); CREATININE 2.1 MG/DL (0.55-1.30); POTASSIUM 3.5 MMOL/L (3.5-5.1); SODIUM 136 MMOL/L (136-145)
[2017-08-10] MEDS: NovoLOG Insulin Flexpen SUBQ SCH ×4 (07:01→21:48)
[2017-08-10 08:00] VITALS: BP 132/77
[2017-08-10] MEDS: Metoprolol 25mg tab ORAL SCH ×2 (09:00→21:00)
--- NOTE | 2017-08-10 09:33 | Diagnostic Imaging Report ---
Indication: Dyspnea Technique: One view of the chest Comparison: 08/03/2017 Findings: The heart is enlarged. The lungs and pleural spaces are clear. No significant interim change Impression: Cardiomegaly. No acute process
[2017-08-10] MEDS: Eliquis 2.5mg tablet ORAL SCH ×2 (09:58→18:42)
[2017-08-10] MEDS: sitaGLIPtin 50mg tab ORAL SCH (09:58)
[2017-08-10] MEDS: Amiodarone 200mg tab ORAL SCH (10:00)
[2017-08-10 12:00] VITALS: BP 132/94
--- NOTE | 2017-08-10 13:17 | Pulmonology Progress Note ---
Assessment/Plan Problems: (1) ARF (acute renal failure) (2) Atrial fibrillation with rapid ventricular response (3) CHF exacerbation (4) Pulmonary hypertension (5) HTN (hypertension) (6) DM (diabetes mellitus) Assessment/Plan no new complains renal function improving hold diuretics, on Sidenefil pulmonary edema improved/ resolved sliding scale diabetic diet. anticoagulation by cardiology Subjective ROS Limited/Unobtainable: No Constitutional: Reports: no symptoms HEENT: Repors: no symptoms Respiratory: Reports: no symptoms Allergies: Coded Allergies: ASPIRIN (Verified Allergy, Intermediate, Hives, 01/06/13) PENICILLINS (Verified Allergy, Intermediate, Hives, 01/06/13) Objective Last 24 Hour Vital Signs Date Time Temp Pulse Resp B/P (MAP) Pulse Ox O2 Delivery O2 Flow Rate FiO2 08/10/17 12:00 56 08/10/17 12:00 97.0 56 19 132/94 93 Room Air 97.0 08/10/17 09:00 57 132/77 08/10/17 08:00 57 08/10/17 08:00 96.5 57 20 132/77 95 Room Air 96.5 08/10/17 04:00 98.0 51 20 151/81 100 Nasal Cannula 2.0 98.0 08/10/17 04:00 55 08/10/17 00:00 57 08/10/17 00:00 97.8 48 20 115/78 95 Room Air 97.8 08/09/17 21:00 48 150/75 08/09/17 20:58 96 Nasal Cannula 2.0 28 08/09/17 20:58 Nasal Cannula 2.0 28 08/09/17 20:00 97.5 48 20 150/75 96 Room Air 97.5 08/09/17 20:00 53 08/09/17 16:00 57 08/09/17 16:00 97.9 59 20 121/77 98 Room Air 97.9 Intake and Output 08/09/17 08/10/17 19:00 07:00 Intake Total 600 ml Balance 600 ml Intake Oral 600 ml # Voids 3 2 # Bowel Movements 2 1 Objective General Appearance: obese Lines, tubes and drains: peripheral HEENT: normocephalic, atraumatic Neck: non-tender, normal alignment Respiratory/Chest: crackles/rales Breasts: no masses Cardiovascular/Chest: normal peripheral pulses, normal rate Abdomen: normal bowel sounds, non tender Genitourinary/Rectal: normal genital exam Extremities: normal range of motion, non-tender, moderate edema Skin Exam: normal pigmentation 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 Microbiology Date/Time Source Procedure Growth Status 08/07/17 18:30 Urine,Clean Catch Urine Culture - Final Mixed Urogenital Contaminants Complete Laboratory Tests 08/10/17 04:35: White Blood Count 8.4, Red Blood Count 5.67H, Hemoglobin 14.7, Hematocrit 47.9H , Mean Corpuscular Volume 84, Mean Corpuscular Hemoglobin 25.9L, Mean Corpuscular Hemoglobin Concent 30.6L, Red Cell Distribution Width 16.0H, Platelet Count 264, Mean Platelet Volume 8.7, Neutrophils (%) (Auto) 58.3, Lymphocytes (%) (Auto) 33.0, Monocytes (%) (Auto) 5.7, Eosinophils (%) (Auto) 1.5, Basophils (%) (Auto) 1.5, Sodium Level 136, Potassium Level 3.5, Chloride Level 95L, Carbon Dioxide Level 38H, Anion Gap 3L, Blood Urea Nitrogen 54H, Creatinine 2.1H, Estimat Glomerular Filtration Rate 28.7, Glucose Level 71L, Calcium Level 9.0, Total Bilirubin 0.9, Aspartate Amino Transf (AST/SGOT) 33, Alanine Aminotransferase (ALT/SGPT) 24, Alkaline Phosphatase 194H, Pro-B-Type Natriuretic Peptide 1331H, Total Protein 7.3, Albumin 3.2L, Globulin 4.1, Albumin/Globulin Ratio 0.8L Current Medications Medications (Trade) Dose Ordered Sig/Toya Route PRN Reason Start Time Stop Time Status Last Admin Dose Admin Acetaminophen (Tylenol) 650 mg Q4H PRN ORAL Mild Pain/Temp > 100.5 08/10/17 05:15 09/02/17 13:14 Acetaminophen/ Hydrocodone Bitart ([place] 10/325) 1 tab Q4H PRN ORAL For Pain 08/10/17 04:15 08/14/17 20:14 Amiodarone HCl (Cordarone) 200 mg DAILY ORAL 08/10/17 09:00 09/04/17 20:59 08/10/17 10:00 Apixaban (Eliquis) 5 mg BID ORAL 08/10/17 09:00 08/27/17 23:44 08/10/17 09:58 Atorvastatin Calcium (Lipitor) 40 mg QHS ORAL 08/10/17 21:00 08/28/17 20:59 Cetylpyridinium Chloride (Cepacol) 1 lozg Q3H PRN CÉSAR Throat pain 08/10/17 04:15 09/02/17 13:14 Dextrose (Dextrose 50%) 25 ml STAT PRN IV BS 60-69mg/dl 08/10/17 13:30 09/02/17 13:15 Dextrose (Dextrose 50%) 50 ml STAT PRN IV BS less than 60mg/dl 08/10/17 13:30 09/02/17 13:15 Gabapentin (Neurontin) 300 mg BID ORAL 08/10/17 09:00 08/27/17 18:29 08/10/17 09:57 Insulin Aspart (NovoLOG) BEFORE MEALS AND HS SUBQ 08/10/17 06:30 08/27/17 20:59 08/10/17 07:01 Metoprolol Tartrate (Lopressor) 25 mg Q12HR ORAL 08/10/17 09:00 09/03/17 20:59 Ondansetron HCl (Zofran) 4 mg Q6H PRN IVP Nausea & Vomiting 08/10/17 07:30 08/27/17 13:22 Polyethylene Glycol (Miralax) 17 gm DAILYPRN PRN ORAL Constipation 08/10/17 13:30 09/05/17 13:23 Sitagliptin Phosphate (Januvia) 50 mg DAILY ORAL 08/10/17 09:00 08/28/17 08:59 08/10/17 09:58 Temazepam (Restoril) 15 mg HSPRN PRN ORAL Insomnia 08/10/17 21:00 08/11/17 20:59 Jesús Farrell MD Aug 10, 2017 13:17
[2017-08-10] MEDS ORDERED: Miralax 17gm pkt ORAL PRN (13:30)
--- NOTE | 2017-08-10 13:30 | General Progress Note ---
Assessment/Plan Problem List: (1) Edema ICD Codes: R60.9 - Edema, unspecified SNOMED: 186890533 (2) HTN (hypertension) ICD Codes: I10 - HTN (hypertension) SNOMED: 15121997 (3) DM (diabetes mellitus) ICD Codes: E11.9 - DM (diabetes mellitus) SNOMED: 26416975 (4) CHF exacerbation ICD Codes: I50.9 - Heart failure, unspecified SNOMED: 53732261 Qualifiers: Qualified Codes: I50.9 - Heart failure, unspecified (5) Atrial fibrillation with rapid ventricular response ICD Codes: I48.91 - Unspecified atrial fibrillation SNOMED: 736427348612058 Status: unchanged Assessment/Plan o2 pulm tx ot pt diet cbc bmp am neph eval dc plan w hh Subjective Constitutional: Reports: weakness Respiratory: Reports: shortness of breath Allergies: Coded Allergies: ASPIRIN (Verified Allergy, Intermediate, Hives, 01/06/13) PENICILLINS (Verified Allergy, Intermediate, Hives, 01/06/13) All Systems: reviewed and negative except above Subjective o2nc calm Objective Last 24 Hour Vital Signs Date Time Temp Pulse Resp B/P (MAP) Pulse Ox O2 Delivery O2 Flow Rate FiO2 08/10/17 12:00 56 08/10/17 12:00 97.0 56 19 132/94 93 Room Air 97.0 08/10/17 09:00 57 132/77 08/10/17 08:00 57 08/10/17 08:00 96.5 57 20 132/77 95 Room Air 96.5 08/10/17 04:00 98.0 51 20 151/81 100 Nasal Cannula 2.0 98.0 08/10/17 04:00 55 08/10/17 00:00 57 08/10/17 00:00 97.8 48 20 115/78 95 Room Air 97.8 08/09/17 21:00 48 150/75 08/09/17 20:58 96 Nasal Cannula 2.0 28 08/09/17 20:58 Nasal Cannula 2.0 28 08/09/17 20:00 97.5 48 20 150/75 96 Room Air 97.5 08/09/17 20:00 53 08/09/17 16:00 57 08/09/17 16:00 97.9 59 20 121/77 98 Room Air 97.9 Intake and Output 08/09/17 08/10/17 19:00 07:00 Intake Total 600 ml Balance 600 ml Intake Oral 600 ml # Voids 3 2 # Bowel Movements 2 1 Laboratory Tests 08/10/17 04:35: White Blood Count 8.4, Red Blood Count 5.67H, Hemoglobin 14.7, Hematocrit 47.9H , Mean Corpuscular Volume 84, Mean Corpuscular Hemoglobin 25.9L, Mean Corpuscular Hemoglobin Concent 30.6L, Red Cell Distribution Width 16.0H, Platelet Count 264, Mean Platelet Volume 8.7, Neutrophils (%) (Auto) 58.3, Lymphocytes (%) (Auto) 33.0, Monocytes (%) (Auto) 5.7, Eosinophils (%) (Auto) 1.5, Basophils (%) (Auto) 1.5, Sodium Level 136, Potassium Level 3.5, Chloride Level 95L, Carbon Dioxide Level 38H, Anion Gap 3L, Blood Urea Nitrogen 54H, Creatinine 2.1H, Estimat Glomerular Filtration Rate 28.7, Glucose Level 71L, Calcium Level 9.0, Total Bilirubin 0.9, Aspartate Amino Transf (AST/SGOT) 33, Alanine Aminotransferase (ALT/SGPT) 24, Alkaline Phosphatase 194H, Pro-B-Type Natriuretic Peptide 1331H, Total Protein 7.3, Albumin 3.2L, Globulin 4.1, Albumin/Globulin Ratio 0.8L Height (Feet): 5 Height (Inches): 3.00 Weight (Pounds): 284 General Appearance: lethargic EENT: normal ENT inspection Neck: normal alignment Cardiovascular: normal peripheral pulses, normal rate, regular rhythm Respiratory/Chest: chest wall non-tender, lungs clear, decreased breath sounds Abdomen: normal bowel sounds, non tender, soft Extremities: normal inspection Edema: 1+ Arm (L), 1+ Arm (R), 1+ Leg (L), 1+ Leg (R), 1+ Pedal (L), 1+ Pedal ( R), 1+ Generalized Edema: trace edema Neurologic: responsive, motor weakness Skin: normal pigmentation, warm/dry CHANA LUBIN Aug 10, 2017 13:30
--- NOTE | 2017-08-10 15:35 | Nephrology Progress Note ---
Assessment/Plan Assessment 1. Acute renal failure improving 2. Chronic kidney disease due to diabetic nephropathy with 4+ proteinuria. 3. Urinary tract infection. 4. Fluid overload. 5. Morbid obesity. 6. hyperkalemia 7. Hypertension Plan repeat urine study hold diuretic monitoring renal function avoid NSAID daily wt Subjective Constitutional: Reports: no symptoms HEENT: Reports: no symptoms Genitourinary: Reports: no symptoms Neurologic/Psychiatric: Reports: no symptoms Subjective alert and wake no complaints Objective Objective Last 24 Hour Vital Signs Date Time Temp Pulse Resp B/P (MAP) Pulse Ox O2 Delivery O2 Flow Rate FiO2 08/10/17 12:00 56 08/10/17 12:00 97.0 56 19 132/94 93 Room Air 97.0 08/10/17 09:00 57 132/77 08/10/17 08:00 57 08/10/17 08:00 96.5 57 20 132/77 95 Room Air 96.5 08/10/17 04:00 98.0 51 20 151/81 100 Nasal Cannula 2.0 98.0 08/10/17 04:00 55 08/10/17 00:00 57 08/10/17 00:00 97.8 48 20 115/78 95 Room Air 97.8 08/09/17 21:00 48 150/75 08/09/17 20:58 96 Nasal Cannula 2.0 28 08/09/17 20:58 Nasal Cannula 2.0 28 08/09/17 20:00 97.5 48 20 150/75 96 Room Air 97.5 08/09/17 20:00 53 08/09/17 16:00 57 08/09/17 16:00 97.9 59 20 121/77 98 Room Air 97.9 Intake and Output 08/09/17 08/10/17 19:00 07:00 Intake Total 600 ml Balance 600 ml Intake Oral 600 ml # Voids 3 2 # Bowel Movements 2 1 Laboratory Tests 08/10/17 04:35: White Blood Count 8.4, Red Blood Count 5.67H, Hemoglobin 14.7, Hematocrit 47.9H , Mean Corpuscular Volume 84, Mean Corpuscular Hemoglobin 25.9L, Mean Corpuscular Hemoglobin Concent 30.6L, Red Cell Distribution Width 16.0H, Platelet Count 264, Mean Platelet Volume 8.7, Neutrophils (%) (Auto) 58.3, Lymphocytes (%) (Auto) 33.0, Monocytes (%) (Auto) 5.7, Eosinophils (%) (Auto) 1.5, Basophils (%) (Auto) 1.5, Sodium Level 136, Potassium Level 3.5, Chloride Level 95L, Carbon Dioxide Level 38H, Anion Gap 3L, Blood Urea Nitrogen 54H, Creatinine 2.1H, Estimat Glomerular Filtration Rate 28.7, Glucose Level 71L, Calcium Level 9.0, Total Bilirubin 0.9, Aspartate Amino Transf (AST/SGOT) 33, Alanine Aminotransferase (ALT/SGPT) 24, Alkaline Phosphatase 194H, Pro-B-Type Natriuretic Peptide 1331H, Total Protein 7.3, Albumin 3.2L, Globulin 4.1, Albumin/Globulin Ratio 0.8L Height (Feet): 5 Height (Inches): 3.00 Weight (Pounds): 284 Objective HEAD AND NECK: No JVP. No LAD. No thyromegaly. Extraocular movement intact. Pupils are reactive to light and accommodation. LUNGS: Clear to auscultation. CARDIAC: Regular rate and rhythm. S1 and S2. No murmur. No rub. ABDOMEN: Obese, nontender, and nondistended. EXTREMITY: A 1+ to 2+ edema. No clubbing. No cyanosis. PRINCESS BAXTER Aug 10, 2017 15:29
[2017-08-10 16:00] VITALS: BP 129/72
[2017-08-10 20:00] VITALS: BP 125/57
[2017-08-10] MEDS ORDERED: Atorvastatin 20mg tab ORAL SCH (21:00)
--- NOTE | 2017-08-10 21:34 | Cardiology Report ---
APPROVED REPORT EKG Measurement Heart [id number] NE P85 [id number] Atrial flutter with variable AV block Right axis deviation Low voltage QRS Cannot rule out Anteroseptal infarct, age undetermined Abnormal ECG
--- NOTE | 2017-08-10 23:47 | Cardiology Progress Note ---
Assessment/Plan Assessment/Plan 1. Sinus bradycardia due to combination of amiodarone and metoprolol, resolved, continue metoprolol . 2. Acute on systolic and diastolic congestive heart failure, off diuretics. Continue low dose metoprolol. 3. New onset atrial flutter converted to sinus rhythm with electrical DCCV, RAMIRO revealed no left atrial appendage thrombus. Decrease amiodarone to 200mg daily, continue Eliquis. 4. Right heart failure. 5. HTN, well controlled, continue the current regimen. 6. RACHELLE on CKD, creat at downtrend. 7. History of COPD. Subjective Subjective Sinus rhythm at 77. Objective Last 24 Hour Vital Signs Date Time Temp Pulse Resp B/P (MAP) Pulse Ox O2 Delivery O2 Flow Rate FiO2 08/10/17 21:00 77 125/57 08/10/17 20:00 83 08/10/17 20:00 97.0 77 20 125/57 98 Room Air 97.0 08/10/17 19:00 96 Nasal Cannula 2.0 28 08/10/17 19:00 Nasal Cannula 2.0 28 08/10/17 16:00 97.0 56 18 129/72 99 Room Air 97.0 08/10/17 16:00 60 08/10/17 12:00 56 08/10/17 12:00 97.0 56 19 132/94 93 Room Air 97.0 08/10/17 09:00 57 132/77 08/10/17 08:00 57 08/10/17 08:00 96.5 57 20 132/77 95 Room Air 96.5 08/10/17 04:00 98.0 51 20 151/81 100 Nasal Cannula 2.0 98.0 08/10/17 04:00 55 08/10/17 00:00 57 08/10/17 00:00 97.8 48 20 115/78 95 Room Air 97.8 Intake and Output 08/09/17 08/10/17 19:00 07:00 Intake Total 600 ml Balance 600 ml Intake Oral 600 ml # Voids 3 2 # Bowel Movements 2 1 2D Echo: EF 30%,Global LV HK,Sev RA/RV dilation,RVSP 65 mmHg,Mild AR/MR,Grade I LVDD Laboratory Tests Test 08/10/17 04:35 White Blood Count 8.4 K/UL (4.8-10.8) Red Blood Count 5.67 M/UL (4.20-5.40) H Hemoglobin 14.7 G/DL (12.0-16.0) Hematocrit 47.9 % (37.0-47.0) H Mean Corpuscular Volume 84 FL (80-99) Mean Corpuscular Hemoglobin 25.9 PG (27.0-31.0) L Mean Corpuscular Hemoglobin Concent 30.6 G/DL (32.0-36.0) L Red Cell Distribution Width 16.0 % (11.6-14.8) H Platelet Count 264 K/UL (150-450) Mean Platelet Volume 8.7 FL (6.5-10.1) Neutrophils (%) (Auto) 58.3 % (45.0-75.0) Lymphocytes (%) (Auto) 33.0 % (20.0-45.0) Monocytes (%) (Auto) 5.7 % (1.0-10.0) Eosinophils (%) (Auto) 1.5 % (0.0-3.0) Basophils (%) (Auto) 1.5 % (0.0-2.0) Sodium Level 136 MMOL/L (136-145) Potassium Level 3.5 MMOL/L (3.5-5.1) Chloride Level 95 MMOL/L (98-107) L Carbon Dioxide Level 38 MMOL/L (21-32) H Anion Gap 3 mmol/L (5-15) L Blood Urea Nitrogen 54 mg/dL (7-18) H Creatinine 2.1 MG/DL (0.55-1.30) H Estimat Glomerular Filtration Rate 28.7 mL/min (>60) Glucose Level 71 MG/DL (74-106) L Calcium Level 9.0 MG/DL (8.5-10.1) Total Bilirubin 0.9 MG/DL (0.2-1.0) Aspartate Amino Transf (AST/SGOT) 33 U/L (15-37) Alanine Aminotransferase (ALT/SGPT) 24 U/L (12-78) Alkaline Phosphatase 194 U/L (46-116) H Pro-B-Type Natriuretic Peptide 1331 pg/mL (0-125) H Total Protein 7.3 G/DL (6.4-8.2) Albumin 3.2 G/DL (3.4-5.0) L Globulin 4.1 g/dL Albumin/Globulin Ratio 0.8 (1.0-2.7) L Objective HEENT: Atraumatic and normocephalic. Anicteric. Pupils are equal, round, and reactive to light and accommodation. Extraocular muscles intact. NECK: JVP is elevated at about 15 cm. No carotid bruits. Carotid upstrokes 2+ bilaterally. CARDIOVASCULAR: Normal S1 and S2. Regular rhythm, No murmurs, gallop or rubs. LUNGS: Diminished breath sounds in both bases. ABDOMEN: Distended and nontender. Positive bowel sounds. No hepatosplenomegaly EXTREMITIES: There is 1+ bilateral edema. NBA HERRERA Aug 10, 2017 23:47
[2017-08-11] VITALS: BP 127/60
[2017-08-11 04:00] VITALS: BP 143/58
[2017-08-11] MEDS: NovoLOG Insulin Flexpen SUBQ SCH ×3 (06:21→16:30)
[2017-08-11 07:57] LABS: EOSINOPHILS % (AUTO) 0.9 % (0.0-3.0); HEMATOCRIT 49.8 % (37.0-47.0); HEMOGLOBIN 15.1 G/DL (12.0-16.0); LYMPHOCYTES % (AUTO) 17.2 % (20.0-45.0); MEAN CORPUSCULAR VOLUME 85 FL (80-99); NEUTROPHILS % (AUTO) 74.9 % (45.0-75.0); PLATELET COUNT 276 K/UL (150-450); RED BLOOD COUNT 5.85 M/UL (4.20-5.40); RED CELL DISTRIBUTION WIDTH 16.2 % (11.6-14.8); WHITE BLOOD COUNT 8.7 K/UL (4.8-10.8)
[2017-08-11 08:00] VITALS: BP 131/63
[2017-08-11 08:26] LABS: ALANINE AMINOTRANSFERASE 22 U/L (12-78); ALBUMIN 3.4 G/DL (3.4-5.0); ALBUMIN/GLOBULIN RATIO 0.8 (1.0-2.7); ALKALINE PHOSPHATASE 191 U/L (46-116); ANION GAP 4 mmol/L (5-15); ASPARTATE AMINO TRANSFERASE 28 U/L (15-37); BILIRUBIN,TOTAL 1.1 MG/DL (0.2-1.0); BLOOD UREA NITROGEN 38 mg/dL (7-18); CALCIUM 9.2 MG/DL (8.5-10.1); CARBON DIOXIDE 38 MMOL/L (21-32); CHLORIDE 98 MMOL/L (98-107); CREATININE 1.6 MG/DL (0.55-1.30); POTASSIUM 2.9 MMOL/L (3.5-5.1); SODIUM 140 MMOL/L (136-145)
[2017-08-11 08:27] LABS: BILIRUBIN,DIRECT 0.4 MG/DL (0.0-0.3)
[2017-08-11] MEDS: Metoprolol 25mg tab ORAL SCH (09:00)
[2017-08-11] MEDS: sitaGLIPtin 50mg tab ORAL SCH (10:02)
[2017-08-11] MEDS: Amiodarone 200mg tab ORAL SCH (10:03)
[2017-08-11] MEDS: Eliquis 2.5mg tablet ORAL SCH ×2 (10:03→17:40)
[2017-08-11 12:00] VITALS: BP 127/65
--- NOTE | 2017-08-11 13:04 | Pulmonology Progress Note ---
Assessment/Plan Problems: (1) ARF (acute renal failure) (2) Atrial fibrillation with rapid ventricular response (3) CHF exacerbation (4) Pulmonary hypertension (5) HTN (hypertension) (6) DM (diabetes mellitus) Assessment/Plan no new complains renal function improving, creatinine and BUN decling hold diuretics, on Sidenefil pulmonary edema improved/ resolved sliding scale diabetic diet. dc home when ok with cardio and renal Subjective ROS Limited/Unobtainable: No Constitutional: Reports: no symptoms HEENT: Repors: no symptoms Respiratory: Reports: no symptoms Allergies: Coded Allergies: ASPIRIN (Verified Allergy, Intermediate, Hives, 01/06/13) PENICILLINS (Verified Allergy, Intermediate, Hives, 01/06/13) Objective Last 24 Hour Vital Signs Date Time Temp Pulse Resp B/P (MAP) Pulse Ox O2 Delivery O2 Flow Rate FiO2 08/11/17 09:00 71 131/63 08/11/17 08:00 96.8 71 18 131/63 93 Room Air 96.8 08/11/17 07:22 Nasal Cannula 2.0 28 08/11/17 07:22 97 Nasal Cannula 2.0 28 08/11/17 04:00 54 08/11/17 04:00 97.0 82 20 143/58 100 Room Air 97.0 08/11/17 00:00 97.2 79 20 127/60 99 Room Air 97.2 08/10/17 23:42 63 08/10/17 21:00 77 125/57 08/10/17 20:00 83 08/10/17 20:00 97.0 77 20 125/57 98 Room Air 97.0 08/10/17 19:00 96 Nasal Cannula 2.0 28 08/10/17 19:00 Nasal Cannula 2.0 28 08/10/17 16:00 97.0 56 18 129/72 99 Room Air 97.0 08/10/17 16:00 60 Intake and Output 08/10/17 08/11/17 19:00 07:00 Intake Total 450 ml Balance 450 ml Intake Oral 450 ml # Voids 2 2 # Bowel Movements 1 Objective General Appearance: obese Lines, tubes and drains: peripheral HEENT: normocephalic, atraumatic Neck: non-tender, normal alignment Respiratory/Chest: crackles/rales Breasts: no masses Cardiovascular/Chest: normal peripheral pulses, normal rate Abdomen: normal bowel sounds, non tender Genitourinary/Rectal: normal genital exam Extremities: normal range of motion, non-tender, moderate edema Skin Exam: normal pigmentation 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 grossly normal Laboratory Tests 08/11/17 07:15: White Blood Count 8.7, Red Blood Count 5.85H, Hemoglobin 15.1, Hematocrit 49.8H , Mean Corpuscular Volume 85, Mean Corpuscular Hemoglobin 25.7L, Mean Corpuscular Hemoglobin Concent 30.3L, Red Cell Distribution Width 16.2H, Platelet Count 276, Mean Platelet Volume 8.3, Neutrophils (%) (Auto) 74.9, Lymphocytes (%) (Auto) 17.2L, Monocytes (%) (Auto) 6.0, Eosinophils (%) (Auto) 0.9, Basophils (%) (Auto) 1.0, Sodium Level 140, Potassium Level 2.9L, Chloride Level 98, Carbon Dioxide Level 38H, Anion Gap 4L, Blood Urea Nitrogen 38H, Creatinine 1.6H, Estimat Glomerular Filtration Rate 39.3, Glucose Level 71L, Calcium Level 9.2, Total Bilirubin 1.1H, Direct Bilirubin 0.4H, Aspartate Amino Transf (AST/SGOT) 28, Alanine Aminotransferase (ALT/SGPT) 22, Alkaline Phosphatase 191H, Pro-B-Type Natriuretic Peptide 1023H, Total Protein 7.5, Albumin 3.4, Globulin 4.1, Albumin/Globulin Ratio 0.8L Current Medications Medications (Trade) Dose Ordered Sig/Toya Route PRN Reason Start Time Stop Time Status Last Admin Dose Admin Acetaminophen (Tylenol) 650 mg Q4H PRN ORAL Mild Pain/Temp > 100.5 08/10/17 05:15 09/02/17 13:14 Acetaminophen/ Hydrocodone Bitart ([place] 10/325) 1 tab Q4H PRN ORAL For Pain 08/10/17 04:15 08/14/17 20:14 Amiodarone HCl (Cordarone) 200 mg DAILY ORAL 08/10/17 09:00 09/04/17 20:59 08/11/17 10:03 Apixaban (Eliquis) 5 mg BID ORAL 08/10/17 09:00 08/27/17 23:44 08/11/17 10:03 Atorvastatin Calcium (Lipitor) 40 mg QHS ORAL 08/10/17 21:00 08/28/17 20:59 08/10/17 21:45 Cetylpyridinium Chloride (Cepacol) 1 lozg Q3H PRN CÉSAR Throat pain 08/10/17 04:15 09/02/17 13:14 Dextrose (Dextrose 50%) 25 ml STAT PRN IV BS 60-69mg/dl 08/10/17 13:30 09/02/17 13:15 Dextrose (Dextrose 50%) 50 ml STAT PRN IV BS less than 60mg/dl 08/10/17 13:30 09/02/17 13:15 Gabapentin (Neurontin) 300 mg BID ORAL 08/10/17 09:00 08/27/17 18:29 08/11/17 10:02 Insulin Aspart (NovoLOG) BEFORE MEALS AND HS SUBQ 08/10/17 06:30 08/27/17 20:59 08/11/17 06:21 Metoprolol Tartrate (Lopressor) 25 mg Q12HR ORAL 08/10/17 09:00 09/03/17 20:59 Ondansetron HCl (Zofran) 4 mg Q6H PRN IVP Nausea & Vomiting 08/10/17 07:30 08/27/17 13:22 Polyethylene Glycol (Miralax) 17 gm DAILYPRN PRN ORAL Constipation 08/10/17 13:30 09/05/17 13:23 Sitagliptin Phosphate (Januvia) 50 mg DAILY ORAL 08/10/17 09:00 08/28/17 08:59 08/11/17 10:02 Temazepam (Restoril) 15 mg HSPRN PRN ORAL Insomnia 08/10/17 21:00 08/11/17 20:59 Jesús Farrell MD Aug 11, 2017 13:04
--- NOTE | 2017-08-11 14:14 | General Progress Note ---
Assessment/Plan Problem List: (1) Edema ICD Codes: R60.9 - Edema, unspecified SNOMED: 693497249 (2) HTN (hypertension) ICD Codes: I10 - HTN (hypertension) SNOMED: 23001271 (3) DM (diabetes mellitus) ICD Codes: E11.9 - DM (diabetes mellitus) SNOMED: 28381716 (4) CHF exacerbation ICD Codes: I50.9 - Heart failure, unspecified SNOMED: 11830944 Qualifiers: Qualified Codes: I50.9 - Heart failure, unspecified (5) Atrial fibrillation with rapid ventricular response ICD Codes: I48.91 - Unspecified atrial fibrillation SNOMED: 630792977002011 Status: stable, progressing, tolerating diet Assessment/Plan o2 pulm tx ot pt diet cbc bmp am dc if clear Subjective Constitutional: Reports: weakness Respiratory: Reports: shortness of breath Allergies: Coded Allergies: ASPIRIN (Verified Allergy, Intermediate, Hives, 01/06/13) PENICILLINS (Verified Allergy, Intermediate, Hives, 01/06/13) All Systems: reviewed and negative except above Subjective o2nc calm Objective Last 24 Hour Vital Signs Date Time Temp Pulse Resp B/P (MAP) Pulse Ox O2 Delivery O2 Flow Rate FiO2 08/11/17 12:00 97.9 67 18 127/65 93 Room Air 97.9 08/11/17 12:00 59 08/11/17 09:00 71 131/63 08/11/17 08:00 96.8 71 18 131/63 93 Room Air 96.8 08/11/17 08:00 65 08/11/17 07:22 Nasal Cannula 2.0 28 08/11/17 07:22 97 Nasal Cannula 2.0 28 08/11/17 04:00 54 08/11/17 04:00 97.0 82 20 143/58 100 Room Air 97.0 08/11/17 00:00 97.2 79 20 127/60 99 Room Air 97.2 08/10/17 23:42 63 08/10/17 21:00 77 125/57 08/10/17 20:00 83 08/10/17 20:00 97.0 77 20 125/57 98 Room Air 97.0 08/10/17 19:00 96 Nasal Cannula 2.0 28 08/10/17 19:00 Nasal Cannula 2.0 28 08/10/17 16:00 97.0 56 18 129/72 99 Room Air 97.0 08/10/17 16:00 60 Intake and Output 08/10/17 08/11/17 19:00 07:00 Intake Total 450 ml Balance 450 ml Intake Oral 450 ml # Voids 2 2 # Bowel Movements 1 Laboratory Tests 08/11/17 07:15: White Blood Count 8.7, Red Blood Count 5.85H, Hemoglobin 15.1, Hematocrit 49.8H , Mean Corpuscular Volume 85, Mean Corpuscular Hemoglobin 25.7L, Mean Corpuscular Hemoglobin Concent 30.3L, Red Cell Distribution Width 16.2H, Platelet Count 276, Mean Platelet Volume 8.3, Neutrophils (%) (Auto) 74.9, Lymphocytes (%) (Auto) 17.2L, Monocytes (%) (Auto) 6.0, Eosinophils (%) (Auto) 0.9, Basophils (%) (Auto) 1.0, Sodium Level 140, Potassium Level 2.9L, Chloride Level 98, Carbon Dioxide Level 38H, Anion Gap 4L, Blood Urea Nitrogen 38H, Creatinine 1.6H, Estimat Glomerular Filtration Rate 39.3, Glucose Level 71L, Calcium Level 9.2, Total Bilirubin 1.1H, Direct Bilirubin 0.4H, Aspartate Amino Transf (AST/SGOT) 28, Alanine Aminotransferase (ALT/SGPT) 22, Alkaline Phosphatase 191H, Pro-B-Type Natriuretic Peptide 1023H, Total Protein 7.5, Albumin 3.4, Globulin 4.1, Albumin/Globulin Ratio 0.8L Height (Feet): 5 Height (Inches): 3.00 Weight (Pounds): 277 General Appearance: lethargic EENT: normal ENT inspection Neck: normal alignment Cardiovascular: normal peripheral pulses, normal rate, regular rhythm Respiratory/Chest: chest wall non-tender, lungs clear, decreased breath sounds Abdomen: normal bowel sounds, non tender, soft Extremities: normal inspection Edema: 1+ Arm (L), 1+ Arm (R), 1+ Leg (L), 1+ Leg (R), 1+ Pedal (L), 1+ Pedal ( R), 1+ Generalized Edema: trace edema Neurologic: responsive, motor weakness Skin: normal pigmentation, warm/dry CHANA LUBIN Aug 11, 2017 14:14
--- NOTE | 2017-08-11 15:19 | Nephrology Progress Note ---
Assessment/Plan Assessment 1. Acute renal failure.improving 2. Chronic kidney disease due to diabetic nephropathy with 4+ proteinuria. 3. Urinary tract infection. 4. Fluid overload. 5. Morbid obesity. 6. hypokalemia 7. Hypertension Plan replace k hold diuretic monitoring renal function avoid NSAID daily wt ok to d/c home since creatinine has trending down Subjective Constitutional: Reports: no symptoms HEENT: Reports: no symptoms Genitourinary: Reports: no symptoms Neurologic/Psychiatric: Reports: no symptoms Subjective alert and wake no complaints Objective Objective Last 24 Hour Vital Signs Date Time Temp Pulse Resp B/P (MAP) Pulse Ox O2 Delivery O2 Flow Rate FiO2 08/11/17 12:00 97.9 67 18 127/65 93 Room Air 97.9 08/11/17 12:00 59 08/11/17 09:00 71 131/63 08/11/17 08:00 96.8 71 18 131/63 93 Room Air 96.8 08/11/17 08:00 65 08/11/17 07:22 Nasal Cannula 2.0 28 08/11/17 07:22 97 Nasal Cannula 2.0 28 08/11/17 04:00 54 08/11/17 04:00 97.0 82 20 143/58 100 Room Air 97.0 08/11/17 00:00 97.2 79 20 127/60 99 Room Air 97.2 08/10/17 23:42 63 08/10/17 21:00 77 125/57 08/10/17 20:00 83 08/10/17 20:00 97.0 77 20 125/57 98 Room Air 97.0 08/10/17 19:00 96 Nasal Cannula 2.0 28 08/10/17 19:00 Nasal Cannula 2.0 28 08/10/17 16:00 97.0 56 18 129/72 99 Room Air 97.0 08/10/17 16:00 60 Intake and Output 08/10/17 08/11/17 19:00 07:00 Intake Total 450 ml Balance 450 ml Intake Oral 450 ml # Voids 2 2 # Bowel Movements 1 Laboratory Tests 08/11/17 07:15: White Blood Count 8.7, Red Blood Count 5.85H, Hemoglobin 15.1, Hematocrit 49.8H , Mean Corpuscular Volume 85, Mean Corpuscular Hemoglobin 25.7L, Mean Corpuscular Hemoglobin Concent 30.3L, Red Cell Distribution Width 16.2H, Platelet Count 276, Mean Platelet Volume 8.3, Neutrophils (%) (Auto) 74.9, Lymphocytes (%) (Auto) 17.2L, Monocytes (%) (Auto) 6.0, Eosinophils (%) (Auto) 0.9, Basophils (%) (Auto) 1.0, Sodium Level 140, Potassium Level 2.9L, Chloride Level 98, Carbon Dioxide Level 38H, Anion Gap 4L, Blood Urea Nitrogen 38H, Creatinine 1.6H, Estimat Glomerular Filtration Rate 39.3, Glucose Level 71L, Calcium Level 9.2, Total Bilirubin 1.1H, Direct Bilirubin 0.4H, Aspartate Amino Transf (AST/SGOT) 28, Alanine Aminotransferase (ALT/SGPT) 22, Alkaline Phosphatase 191H, Pro-B-Type Natriuretic Peptide 1023H, Total Protein 7.5, Albumin 3.4, Globulin 4.1, Albumin/Globulin Ratio 0.8L Height (Feet): 5 Height (Inches): 3.00 Weight (Pounds): 277 Objective HEAD AND NECK: No JVP. No LAD. No thyromegaly. Extraocular movement intact. Pupils are reactive to light and accommodation. LUNGS: Clear to auscultation. CARDIAC: Regular rate and rhythm. S1 and S2. No murmur. No rub. ABDOMEN: Obese, nontender, and nondistended. EXTREMITY: A 1+ to 2+ edema. No clubbing. No cyanosis. PRINCESS BAXTER Aug 11, 2017 15:18
[2017-08-11 16:00] VITALS: BP 103/51
--- NOTE | 2017-08-11 20:23 | Cardiology Progress Note ---
Assessment/Plan Assessment/Plan 1. Acute on systolic and diastolic congestive heart failure, off diuretics. Continue low dose metoprolol. 2. New onset atrial flutter converted to sinus rhythm with electrical DCCV, RAMIRO revealed no left atrial appendage thrombus. Decrease amiodarone to 200mg daily, continue Eliquis. 3. Right heart failure, will consider Entresto in the outpatient setting. 4. HTN, well controlled, continue the current regimen. 5. RACHELLE on CKD, resolved creat back to the baseline at 1.6. 6. History of COPD. Subjective Subjective Sinus rhythm at 69. DC planning in process. Hypokalemia is reported. Objective Last 24 Hour Vital Signs Date Time Temp Pulse Resp B/P (MAP) Pulse Ox O2 Delivery O2 Flow Rate FiO2 08/11/17 16:00 96.3 69 18 103/51 93 Room Air 96.3 08/11/17 16:00 63 08/11/17 12:00 97.9 67 18 127/65 93 Room Air 97.9 08/11/17 12:00 59 08/11/17 09:00 71 131/63 08/11/17 08:00 96.8 71 18 131/63 93 Room Air 96.8 08/11/17 08:00 65 08/11/17 07:22 Nasal Cannula 2.0 28 08/11/17 07:22 97 Nasal Cannula 2.0 28 08/11/17 04:00 54 08/11/17 04:00 97.0 82 20 143/58 100 Room Air 97.0 08/11/17 00:00 97.2 79 20 127/60 99 Room Air 97.2 08/10/17 23:42 63 08/10/17 21:00 77 125/57 Intake and Output 08/10/17 08/11/17 19:00 07:00 Intake Total 450 ml Balance 450 ml Intake Oral 450 ml # Voids 2 2 # Bowel Movements 1 2D Echo: EF 30%,Global LV HK,Sev RA/RV dilation,RVSP 65 mmHg,Mild AR/MR,Grade I LVDD Laboratory Tests Test 08/11/17 07:15 08/11/17 17:00 White Blood Count 8.7 K/UL (4.8-10.8) Red Blood Count 5.85 M/UL (4.20-5.40) H Hemoglobin 15.1 G/DL (12.0-16.0) Hematocrit 49.8 % (37.0-47.0) H Mean Corpuscular Volume 85 FL (80-99) Mean Corpuscular Hemoglobin 25.7 PG (27.0-31.0) L Mean Corpuscular Hemoglobin Concent 30.3 G/DL (32.0-36.0) L Red Cell Distribution Width 16.2 % (11.6-14.8) H Platelet Count 276 K/UL (150-450) Mean Platelet Volume 8.3 FL (6.5-10.1) Neutrophils (%) (Auto) 74.9 % (45.0-75.0) Lymphocytes (%) (Auto) 17.2 % (20.0-45.0) L Monocytes (%) (Auto) 6.0 % (1.0-10.0) Eosinophils (%) (Auto) 0.9 % (0.0-3.0) Basophils (%) (Auto) 1.0 % (0.0-2.0) Sodium Level 140 MMOL/L (136-145) Potassium Level 2.9 MMOL/L (3.5-5.1) L 3.5 MMOL/L (3.5-5.1) Chloride Level 98 MMOL/L (98-107) Carbon Dioxide Level 38 MMOL/L (21-32) H Anion Gap 4 mmol/L (5-15) L Blood Urea Nitrogen 38 mg/dL (7-18) H Creatinine 1.6 MG/DL (0.55-1.30) H Estimat Glomerular Filtration Rate 39.3 mL/min (>60) Glucose Level 71 MG/DL (74-106) L Calcium Level 9.2 MG/DL (8.5-10.1) Total Bilirubin 1.1 MG/DL (0.2-1.0) H Direct Bilirubin 0.4 MG/DL (0.0-0.3) H Aspartate Amino Transf (AST/SGOT) 28 U/L (15-37) Alanine Aminotransferase (ALT/SGPT) 22 U/L (12-78) Alkaline Phosphatase 191 U/L (46-116) H Pro-B-Type Natriuretic Peptide 1023 pg/mL (0-125) H Total Protein 7.5 G/DL (6.4-8.2) Albumin 3.4 G/DL (3.4-5.0) Globulin 4.1 g/dL Albumin/Globulin Ratio 0.8 (1.0-2.7) L Objective HEENT: Atraumatic and normocephalic. Anicteric. Pupils are equal, round, and reactive to light and accommodation. Extraocular muscles intact. NECK: JVP is elevated at about 15 cm. No carotid bruits. Carotid upstrokes 2+ bilaterally. CARDIOVASCULAR: Normal S1 and S2. Regular rhythm, No murmurs, gallop or rubs. LUNGS: Diminished breath sounds in both bases. ABDOMEN: Distended and nontender. Positive bowel sounds. No hepatosplenomegaly EXTREMITIES: There is 1+ bilateral edema. NBA HERRERA Aug 11, 2017 20:23
--- NOTE | 2017-08-13 15:49 | Discharge Summary ---
Discharge Summary Hospital Course Date of Admission Jul 28, 2017 at 12:35 Date of Discharge Aug 11, 2017 at 20:00 Admitting Diagnosis CHF/SOB HPI Lili Alcantar is a 66 year old female who was admitted on Jul 28, 2017 at 12 :35 for Congestive Heart Failure, Shortnes Of Breath Hospital Course [id number] Discharge Discharge Disposition Patient was discharged to Home Debra Yates NP Aug 13, 2017 15:49
--- NOTE | 2017-08-14 01:15 | Discharge Summary 2 SIG ---
DATE OF ADMISSION: 07/28/2017 DATE OF DISCHARGE: 08/11/2017 CONSULTANTS: 1. Justice Erickson M.D. 2. Marzena Nielsen M.D. 3. Jesús Farrell M.D. BRIEF HOSPITAL COURSE: The patient is a 66-year-old female, who came from home, presented to ED for complaints of shortness of breath. She has swelling of the lower extremities for three days. She has a known history of heart failure and states that she had been taking her medications, however, were not helping. She denied chest pain, fever, or chills. Denied cough. She has medical history significant for diabetes mellitus, COPD, hypertension, pulmonary hypertension, and neuropathy. On evaluation at ED, blood work was stable. Troponin was 0.03. BNP was elevated to 1065. She had a chest x-ray done that showed pulmonary congestion. EKG was in atrial fibrillation with RVR. She was given IV Lopressor. She was then admitted for acute exacerbation of CHF and rapid atrial fibrillation. She was followed by Dr. Erickson for cardiac evaluation. Echocardiogram showed small left ventricular size with dyskinetic septal wall movements and hypokinesia on the rest of the left ventricular regional wall, LVEF approximately 30%. There was mild left ventricular hypertrophy. There was dilated right ventricle with moderate to severely decreased right ventricular function and evidence of right ventricular pressure and volume overload. A 12-lead EKG was significant for atrial flutter with RVR rate of 115. She had predominantly right-sided heart failure with associated anasarca. she was given Sildenafil. She required aggressive diuresis with combination of Lasix and metolazone. She had refused right heart catheterization in the past. She had new onset of atrial flutter, unclear how long she had been in atrial flutter. She then underwent a transesophageal echocardiogram with cardioversion. ENT was consulted because it was difficult to pass esophageal catheter. She was observed to be able to swallow without pain and was recommended that swelling should go down without long-term sequelae. Creatinine was noted to be rising. Dr. Nielsen was consulted. The patient had proteinuria. Urine creatinine was 365 and sodium was less than 10. Lasix was placed on hold and creatinine was monitored. She was eventually placed on amiodarone po and was started on Eliquis. She had sinus bradycardia due to combination of amiodarone and metoprolol.Amiodarone was decreased to 100 mg daily. Kidney function down trended. She was eventually discharged home. FINAL DIAGNOSES: 1. Acute systolic and diastolic congestive heart failure in exacerbation. 2. New onset atrial flutter, converted to sinus rhythm status post cardioversion. 3. Status post RAMIRO, negative for thrombus. 4. Right heart failure. 5. Hypertension. 6. Acute kidney injury. 7. Chronic kidney disease. 8. Fluid overload. 9. Morbid obesity. 10. Hypokalemia. DISPOSITION: The patient was discharged home. DISCHARGE MEDICATIONS: Refer to medication list. DISCHARGE INSTRUCTIONS: Follow up in a week. Pedro Benjamin D.O. I have been assigned to dictate discharge summary on this account and I was not involved in the patient's management. Debra Yates N.P. DR: VANIA JOB#: [id number] CC: BELKIS
== END 2017-08-11 20:00 | disposition home health service (06) | DRG 291 ==
LOC: EMR 12:21 → 2E 12:35 → EDBEDREQ 18:25 → ICU 08-03 10:20 → 2W 08-06 14:00 → 2E 08-10 01:20 → SDSOVERFLO 08-11 19:38 → 2E 08-11 19:39
PROC: B245ZZ4 Ultrasonography of Left Heart, Transesophageal (ICD-10-PCS; principal; 2017-08-03 07:30)
PROC: 5A2204Z Restoration of Cardiac Rhythm, Single (ICD-10-PCS; principal; 2017-08-03 07:30)
DX: I13.0 Hypertensive heart and chronic kidney disease with heart failure and stage 1 through stage 4 chronic kidney disease, or unspecified chronic kidney disease (principal); I50.43 Acute on chronic combined systolic (congestive) and diastolic (congestive) heart failure; N17.0 Acute kidney failure with tubular necrosis; I48.92 Unspecified atrial flutter; Z68.42 Body mass index [BMI] 45.0-49.9, adult; N39.0 Urinary tract infection, site not specified; K91.62 Intraoperative hemorrhage and hematoma of a digestive system organ or structure complicating other procedure; N18.9 Chronic kidney disease, unspecified; E11.22 Type 2 diabetes mellitus with diabetic chronic kidney disease; I48.91 Unspecified atrial fibrillation; E66.01 Morbid (severe) obesity due to excess calories; J44.9 Chronic obstructive pulmonary disease, unspecified; E11.40 Type 2 diabetes mellitus with diabetic neuropathy, unspecified; E11.319 Type 2 diabetes mellitus with unspecified diabetic retinopathy without macular edema; Z79.84 Long term (current) use of oral hypoglycemic drugs; Z86.73 Personal history of transient ischemic attack (TIA), and cerebral infarction without residual deficits; I42.9 Cardiomyopathy, unspecified; Z91.14 Patient's other noncompliance with medication regimen; E87.5 Hyperkalemia; E87.6 Hypokalemia
CPT/HCPCS: 36415; 71045; 80048; 80053; 81001; 81003; 82043; 82044; 82150; 82248; 82550; 82553; 82570; 82962; 83690; 83735; 83880; 84100; 84132; 84133; 84300; 84484; 84550; 85025; 85651; 86140; 87086; 89050; 93005; 93306; 93312; 93970; 94003; 94150; 94664; 94760; 97803; 99291; J0282; J1815; J2250; J8499

== ENCOUNTER 2017-09-24 11:33 | Inpatient (IN) | payer MEDICARE, MEDICAID ==
[~2017-09-24] VITALS: Ht 160 cm; Wt 131.3 kg
[2017-09-24 11:47] VITALS: BP 170/110
[2017-09-24 12:09] LABS: BASOPHILS % (AUTO) 1.3 % (0.0-2.0); EOSINOPHILS % (AUTO) 0.8 % (0.0-3.0); HEMATOCRIT 45.9 % (37.0-47.0); HEMOGLOBIN 13.5 G/DL (12.0-16.0); LYMPHOCYTES % (AUTO) 18.3 % (20.0-45.0); MEAN CORPUSCULAR VOLUME 82 FL (80-99); MONOCYTES % (AUTO) 5.6 % (1.0-10.0); PLATELET COUNT 276 K/UL (150-450); RED BLOOD COUNT 5.63 M/UL (4.20-5.40); RED CELL DISTRIBUTION WIDTH 16.2 % (11.6-14.8); WHITE BLOOD COUNT 8.4 K/UL (4.8-10.8)
--- NOTE | 2017-09-24 12:15 | Diagnostic Imaging Report ---
Indication: Chest pain Comparison: 08/10/2017 A single view chest radiograph was obtained. Findings: The heart is enlarged. There is interstitial prominence and vascular prominence bilaterally. The bones are unremarkable. No pleural effusions are seen. IMPRESSION: Mild interstitial edema suspected
--- NOTE | 2017-09-24 12:19 | Emergency Room Report ---
History of Present Illness General Chief Complaint: Chest Pain Source: Patient Present Illness HPI Patient present with complaint of chest pain or shortness of breath Started yesterday however this morning the discomfort continued denies any vomiting Patient feels worse with laying flat Denies any fevers or chills Patient reports taking her diuretic Pain is 5 out of 10 heaviness denies any radiation at this time Allergies: Coded Allergies: ASPIRIN (Verified Allergy, Intermediate, Hives, 01/06/13) PENICILLINS (Verified Allergy, Intermediate, Hives, 01/06/13) Patient History Past Medical History: see triage record Pertinent Family History: none Now: No Reviewed Nursing Documentation: PMH: Agreed; PSxH: Agreed Nursing Documentation-PMH Hx Cardiac Problems: Yes Hx Hypertension: Yes Hx Pacemaker: No Hx Asthma: No Hx COPD: Yes Hx Diabetes: Yes Hx Cancer: No Hx Gastrointestinal Problems: Yes Hx Dialysis: No Hx Neurological Problems: Yes Hx Seizures: No Hx Peripheral Neuropathy: Yes Review of Systems All Other Systems: negative except mentioned in HPI Physical Exam Vital Signs Date Time Temp Pulse Resp B/P (MAP) Pulse Ox O2 Delivery O2 Flow Rate FiO2 09/24/17 11:34 88 20 172/107 99 Room Air Sp02 EP Interpretation: reviewed, normal General Appearance: well appearing, no apparent distress Head: normocephalic, atraumatic Eyes: bilateral eye PERRL, bilateral eye EOMI ENT: hearing grossly normal, normal pharynx, TMs + canals normal, uvula midline Neck: full range of motion, supple, no meningismus, no bony tend Respiratory: lungs clear, normal breath sounds, no rhonchi, no respiratory distress, no retraction, no accessory muscle use Cardiovascular #1: normal peripheral pulses, regular rate, rhythm, no gallop, no JVD, no murmur Gastrointestinal: normal bowel sounds, non tender, soft, no mass, no organomegaly, non-distended, no guarding, no hernia, no pulsatile mass, no rebound Genitourinary: no CVA tenderness Musculoskeletal: normal inspection Neurologic: oriented x3, responsive, reimbursement coordinator III-XII nml as tested, motor strength/ tone normal, sensory intact Psychiatric: mood/affect normal Skin: normal color, warm/dry, other - Edema in both lower extremities Lymphatic: normal inspection, no adenopathy Medical Decision Making Diagnostic Impression: Primary Impression: ACS (acute coronary syndrome) Additional Impression: CHF (congestive heart failure) ER Course Patient is a fairly complex patient with multiple differential to consideration including but not limited to cardiac cardiopulmonary and vascular emergencies Patient clinically appears to have increased fluid X-ray also confirms pulmonary congestion Patient is allergic to aspirin At this time is pain-free and nitroglycerin was not given initially Patient receiving Lasix and requires further inpatient care Labs Test 09/24/17 11:45 White Blood Count 8.4 K/UL (4.8-10.8) Red Blood Count 5.63 M/UL (4.20-5.40) Hemoglobin 13.5 G/DL (12.0-16.0) Hematocrit 45.9 % (37.0-47.0) Mean Corpuscular Volume 82 FL (80-99) Mean Corpuscular Hemoglobin 24.0 PG (27.0-31.0) Mean Corpuscular Hemoglobin Concent 29.4 G/DL (32.0-36.0) Red Cell Distribution Width 16.2 % (11.6-14.8) Platelet Count 276 K/UL (150-450) Mean Platelet Volume 8.1 FL (6.5-10.1) Neutrophils (%) (Auto) 74.0 % (45.0-75.0) Lymphocytes (%) (Auto) 18.3 % (20.0-45.0) Monocytes (%) (Auto) 5.6 % (1.0-10.0) Eosinophils (%) (Auto) 0.8 % (0.0-3.0) Basophils (%) (Auto) 1.3 % (0.0-2.0) Sodium Level 143 MMOL/L (136-145) Potassium Level 4.0 MMOL/L (3.5-5.1) Chloride Level 107 MMOL/L (98-107) Carbon Dioxide Level 30 MMOL/L (21-32) Anion Gap 6 mmol/L (5-15) Blood Urea Nitrogen 18 mg/dL (7-18) Creatinine 1.0 MG/DL (0.55-1.30) Estimat Glomerular Filtration Rate > 60 mL/min (>60) Glucose Level 147 MG/DL (74-106) Calcium Level 9.1 MG/DL (8.5-10.1) Total Bilirubin 1.3 MG/DL (0.2-1.0) Direct Bilirubin 0.4 MG/DL (0.0-0.3) Aspartate Amino Transf (AST/SGOT) 25 U/L (15-37) Alanine Aminotransferase (ALT/SGPT) 20 U/L (12-78) Alkaline Phosphatase 166 U/L (46-116) Total Creatine Kinase 202 U/L (26-308) Creatine Kinase MB 4.0 NG/ML (0.0-3.6) Creatine Kinase MB Relative Index 1.9 Troponin I 0.026 ng/mL (0.000-0.056) Pro-B-Type Natriuretic Peptide 1697 pg/mL (0-125) Total Protein 7.3 G/DL (6.4-8.2) Albumin 3.4 G/DL (3.4-5.0) Globulin 3.9 g/dL Albumin/Globulin Ratio 0.9 (1.0-2.7) Lipase 101 U/L (73-393) EKG Diagnostic Results Rate: normal Rhythm: NSR ST Segments: other - Nonspecific ST T-wave changes Rhythm Strip Diag. Results EP Interpretation: yes Rate: 77 Rhythm: NSR, no PVC's, no ectopy Chest X-Ray Diagnostic Results Chest X-Ray Diagnostic Results : Chest X-Ray Ordered: Yes # of Views/Limited/Complete: 1 View Indication: Chest Pain EP Interpretation: Yes Interpretation: no consolidation, no effusion, no pneumothorax, other - Cardiomegaly, pulmonary constion Impression: Other - Acute CHF Electronically Signed by: Niharika Reza DO Last Vital Signs Date Time Temp Pulse Resp B/P (MAP) Pulse Ox O2 Delivery O2 Flow Rate FiO2 09/24/17 11:47 89 18 Room Air 09/24/17 11:47 170/110 99 Status: improved Disposition: ADMITTED INPATIENT Condition: Serious Niharika Reza DO September 24, 2017 12:19
[2017-09-24 12:21] LABS: ANION GAP 6 mmol/L (5-15); BLOOD UREA NITROGEN 18 mg/dL (7-18); CALCIUM 9.1 MG/DL (8.5-10.1); CARBON DIOXIDE 30 MMOL/L (21-32); CHLORIDE 107 MMOL/L (98-107); SODIUM 143 MMOL/L (136-145)
[2017-09-24 12:34] LABS: ALANINE AMINOTRANSFERASE 20 U/L (12-78); ALBUMIN 3.4 G/DL (3.4-5.0); ALBUMIN/GLOBULIN RATIO 0.9 (1.0-2.7); ALKALINE PHOSPHATASE 166 U/L (46-116); ASPARTATE AMINO TRANSFERASE 25 U/L (15-37); BILIRUBIN,TOTAL 1.3 MG/DL (0.2-1.0); CREATINE KINASE 202 U/L (26-308)
[2017-09-24 12:40] LABS: BILIRUBIN,DIRECT 0.4 MG/DL (0.0-0.3)
[2017-09-24 13:49] VITALS: BP 151/99
[2017-09-24 16:00] VITALS: BP 170/110
[2017-09-24] MEDS ORDERED: Miralax 17gm pkt ORAL PRN (17:15)
[2017-09-24] MEDS ORDERED: Albuterol/Ipratropium 3ml neb HHN PRN (17:15)
[2017-09-24] MEDS: HYDROcodone/Acetamin 10/325 tab ORAL PRN ×2 (18:19→23:34)
[2017-09-24] MEDS: Revatio 20mg tab ORAL SCH (18:19)
[2017-09-24 20:00] VITALS: BP 174/115
--- NOTE | 2017-09-24 20:46 | Cardiology Progress Note ---
Assessment/Plan Assessment/Plan The patient is seen and examined, full consult note will be dictated. Objective Last 24 Hour Vital Signs Date Time Temp Pulse Resp B/P (MAP) Pulse Ox O2 Delivery O2 Flow Rate FiO2 09/24/17 20:05 99 18 Room Air 09/24/17 19:18 97.5 09/24/17 16:00 81 09/24/17 16:00 97.5 88 21 170/110 95 Nasal Cannula 1.0 97.5 09/24/17 14:49 97.8 74 18 147/81 98 Room Air 98.1 09/24/17 13:49 98.1 81 18 151/99 100 Nasal Cannula 1.0 98.1 09/24/17 11:47 89 18 Room Air 09/24/17 11:47 79 18 170/110 99 Room Air 09/24/17 11:34 88 20 172/107 99 Room Air Laboratory Tests Test 09/24/17 11:45 09/24/17 18:15 White Blood Count 8.4 K/UL (4.8-10.8) Red Blood Count 5.63 M/UL (4.20-5.40) H Hemoglobin 13.5 G/DL (12.0-16.0) Hematocrit 45.9 % (37.0-47.0) Mean Corpuscular Volume 82 FL (80-99) Mean Corpuscular Hemoglobin 24.0 PG (27.0-31.0) L Mean Corpuscular Hemoglobin Concent 29.4 G/DL (32.0-36.0) L Red Cell Distribution Width 16.2 % (11.6-14.8) H Platelet Count 276 K/UL (150-450) Mean Platelet Volume 8.1 FL (6.5-10.1) Neutrophils (%) (Auto) 74.0 % (45.0-75.0) Lymphocytes (%) (Auto) 18.3 % (20.0-45.0) L Monocytes (%) (Auto) 5.6 % (1.0-10.0) Eosinophils (%) (Auto) 0.8 % (0.0-3.0) Basophils (%) (Auto) 1.3 % (0.0-2.0) Sodium Level 143 MMOL/L (136-145) Potassium Level 4.0 MMOL/L (3.5-5.1) Chloride Level 107 MMOL/L (98-107) Carbon Dioxide Level 30 MMOL/L (21-32) Anion Gap 6 mmol/L (5-15) Blood Urea Nitrogen 18 mg/dL (7-18) Creatinine 1.0 MG/DL (0.55-1.30) Estimat Glomerular Filtration Rate > 60 mL/min (>60) Glucose Level 147 MG/DL (74-106) H Calcium Level 9.1 MG/DL (8.5-10.1) Total Bilirubin 1.3 MG/DL (0.2-1.0) H Direct Bilirubin 0.4 MG/DL (0.0-0.3) H Aspartate Amino Transf (AST/SGOT) 25 U/L (15-37) Alanine Aminotransferase (ALT/SGPT) 20 U/L (12-78) Alkaline Phosphatase 166 U/L (46-116) H Total Creatine Kinase 202 U/L (26-308) Creatine Kinase MB 4.0 NG/ML (0.0-3.6) H Creatine Kinase MB Relative Index 1.9 Troponin I 0.026 ng/mL (0.000-0.056) 0.035 ng/mL (0.000-0.056) Pro-B-Type Natriuretic Peptide 1697 pg/mL (0-125) H Total Protein 7.3 G/DL (6.4-8.2) Albumin 3.4 G/DL (3.4-5.0) Globulin 3.9 g/dL Albumin/Globulin Ratio 0.9 (1.0-2.7) L Lipase 101 U/L (73-393) Justice Erickson MD September 24, 2017 20:46
[2017-09-24] MEDS ORDERED: Heparin 5000 units/ml inj SUBQ SCH (21:00)
[2017-09-24] MEDS: NovoLOG Insulin Flexpen SUBQ SCH (21:00)
[2017-09-24] MEDS ORDERED: Digoxin 0.125mg tab ORAL SCH (21:15)
[2017-09-24] MEDS: Enalapril 2.5mg tab ORAL SCH (21:51)
[2017-09-24] MEDS: Carvedilol 6.25mg Tab ORAL SCH (21:51)
[2017-09-24] MEDS: Eliquis 2.5mg tablet ORAL SCH (21:51)
[2017-09-24 23:58] VITALS: BP 177/110
[2017-09-25 04:00] VITALS: BP 148/107
[2017-09-25 06:26] LABS: ANION GAP 8 mmol/L (5-15); BLOOD UREA NITROGEN 25 mg/dL (7-18); CARBON DIOXIDE 30 MMOL/L (21-32); CHLORIDE 106 MMOL/L (98-107); CREATININE 1.5 MG/DL (0.55-1.30); SODIUM 144 MMOL/L (136-145)
[2017-09-25] MEDS: NovoLOG Insulin Flexpen SUBQ SCH ×4 (06:30→21:06)
[2017-09-25 08:00] VITALS: BP 152/100
[2017-09-25] MEDS: Revatio 20mg tab ORAL SCH ×3 (09:40→17:02)
[2017-09-25] MEDS: Carvedilol 6.25mg Tab ORAL SCH ×2 (09:41→21:03)
[2017-09-25] MEDS: sitaGLIPtin 50mg tab ORAL SCH (09:42)
[2017-09-25] MEDS: Eliquis 2.5mg tablet ORAL SCH ×2 (09:42→21:02)
[2017-09-25] MEDS: Enalapril 2.5mg tab ORAL SCH (09:43)
[2017-09-25] MEDS: Digoxin 0.125mg tab ORAL SCH (09:43)
[2017-09-25] MEDS: HYDROcodone/Acetamin 10/325 tab ORAL PRN ×3 (09:52→22:44)
--- NOTE | 2017-09-25 10:34 | Diagnostic Imaging Report ---
Indication: Dyspnea Comparison: 09/24/2017 A single view chest radiograph was obtained. Findings: There is no significant change appreciated. Again the interstitium appears slightly prominent and the heart is markedly enlarged. IMPRESSION: Mild CHF suspected. No significant change
--- NOTE | 2017-09-25 11:44 | Consultation ---
History of Present Illness General Date patient seen: Sep 25, 2017 Chief Complaint: Chest Pain Present Illness HPI 67 yearold female with Hx of COPD, HTN, CAD, pulmonary hypertension, obesity resented to ER with complaint of chest pain and shortness of breath Patient feels worse with laying flat. Denies any fevers or chills. Her initial CXR showed massive cardiomegaly and pulmonary edema. Patient reports taking her diuretic. Pt is admitted to telemetry for further w/ u. Allergies: Coded Allergies: ASPIRIN (Verified Allergy, Intermediate, Hives, 01/06/13) PENICILLINS (Verified Allergy, Intermediate, Hives, 01/06/13) Medication History Scheduled Atorvastatin Calcium* (Lipitor*), 20 MG ORAL DAILY, (Reported) Furosemide* (Lasix*), 40 MG ORAL TWICE A DAY Gabapentin* (Gabapentin*), 300 MG ORAL BID, (Reported) Hydrocortisone/Aloe Vera (Hydrocortisone Plus 1% Cream), 28.4 GM TP TID, ( Reported) Losartan Potassium* (Losartan Potassium*), 50 MG ORAL DAILY, (Reported) Metformin Hcl* (Metformin Hcl*), 1,000 MG ORAL BID, (Reported) Omeprazole (Prilosec), 20 MG ORAL DAILY, (Reported) Sildenafil Citrate (Sildenafil), 20 MG ORAL TID, (Reported) Sitagliptin (Januvia), 50 MG ORAL DAILY, (Reported) Scheduled PRN Hydrocodone/Acetaminophen (Hydrocodon-Acetaminophn 10-325), 1 TAB ORAL Q4H PRN for For Pain, (Reported) Miscellaneous Medications Hc/Mineral Oil/Petrolat,Wht 1% (Hydrocortisone 1% Absorbase), 25 GM TP, ( Reported) Hydrocortisone/Aloe Vera (Hydrocortisone Plus 1% Cream), 28.4 GM TP, (Reported) Hydrocortisone/Aloe Vera (Hydrocortisone Plus 1% Cream), 28.4 GM TP, (Reported) Patient History Healthcare decision maker Resuscitation status Full Code Advanced Directive on File No Past Medical/Surgical History Past Medical/Surgical History: (1) DM (diabetes mellitus) (2) HTN (hypertension) (3) Pulmonary hypertension (4) Tobacco user Review of Systems All Other Systems: negative except mentioned in HPI Physical Exam General Appearance: WD/WN, no apparent distress Lines, tubes and drains: peripheral HEENT: normocephalic, atraumatic Neck: non-tender, normal alignment Respiratory/Chest: chest wall non-tender, lungs clear Breasts: no masses Cardiovascular/Chest: normal peripheral pulses Abdomen: normal bowel sounds, non tender Genitourinary/Rectal: normal genital exam Extremities: normal range of motion Last 24 Hour Vital Signs Date Time Temp Pulse Resp B/P (MAP) Pulse Ox O2 Delivery O2 Flow Rate FiO2 09/25/17 09:43 152/100 09/25/17 09:43 79 09/25/17 09:41 98 157/88 09/25/17 08:04 102 22 Room Air 09/25/17 08:04 Nasal Cannula 2.0 28 09/25/17 08:04 93 Nasal Cannula 2.0 28 09/25/17 08:00 98.0 79 20 152/100 98 Nasal Cannula 2.0 98.0 09/25/17 04:00 98.0 83 20 148/107 97 Nasal Cannula 2.0 98.0 09/25/17 03:44 79 09/25/17 00:33 98.0 09/24/17 23:58 98.0 93 18 177/110 98 Nasal Cannula 1.0 98.0 09/24/17 23:38 81 09/24/17 23:34 177/110 09/24/17 23:34 98.0 09/24/17 21:51 174/115 09/24/17 21:51 99 174/115 09/24/17 21:50 86 09/24/17 20:05 99 18 Room Air 09/24/17 20:00 98.0 89 21 174/115 95 Nasal Cannula 1.0 98.0 09/24/17 20:00 86 09/24/17 16:00 81 09/24/17 16:00 97.5 88 21 170/110 95 Nasal Cannula 1.0 97.5 09/24/17 14:49 97.8 74 18 147/81 98 Room Air 98.1 09/24/17 13:49 98.1 81 18 151/99 100 Nasal Cannula 1.0 98.1 09/24/17 11:47 89 18 Room Air 09/24/17 11:47 79 18 170/110 99 Room Air Intake and Output 09/24/17 09/25/17 19:00 07:00 Intake Total 180 ml Output Total 700 ml Balance -520 ml Intake Oral 180 ml Output Urine Total 700 ml # Voids 4 Laboratory Tests Test 09/24/17 11:45 09/24/17 18:15 09/25/17 05:45 White Blood Count 8.4 K/UL (4.8-10.8) Red Blood Count 5.63 M/UL (4.20-5.40) H Hemoglobin 13.5 G/DL (12.0-16.0) Hematocrit 45.9 % (37.0-47.0) Mean Corpuscular Volume 82 FL (80-99) Mean Corpuscular Hemoglobin 24.0 PG (27.0-31.0) L Mean Corpuscular Hemoglobin Concent 29.4 G/DL (32.0-36.0) L Red Cell Distribution Width 16.2 % (11.6-14.8) H Platelet Count 276 K/UL (150-450) Mean Platelet Volume 8.1 FL (6.5-10.1) Neutrophils (%) (Auto) 74.0 % (45.0-75.0) Lymphocytes (%) (Auto) 18.3 % (20.0-45.0) L Monocytes (%) (Auto) 5.6 % (1.0-10.0) Eosinophils (%) (Auto) 0.8 % (0.0-3.0) Basophils (%) (Auto) 1.3 % (0.0-2.0) Sodium Level 143 MMOL/L (136-145) 144 MMOL/L (136-145) Potassium Level 4.0 MMOL/L (3.5-5.1) 4.0 MMOL/L (3.5-5.1) Chloride Level 107 MMOL/L (98-107) 106 MMOL/L (98-107) Carbon Dioxide Level 30 MMOL/L (21-32) 30 MMOL/L (21-32) Anion Gap 6 mmol/L (5-15) 8 mmol/L (5-15) Blood Urea Nitrogen 18 mg/dL (7-18) 25 mg/dL (7-18) H Creatinine 1.0 MG/DL (0.55-1.30) 1.5 MG/DL (0.55-1.30) H Estimat Glomerular Filtration Rate > 60 mL/min (>60) 42.3 mL/min (>60) Glucose Level 147 MG/DL (74-106) H 127 MG/DL (74-106) H Calcium Level 9.1 MG/DL (8.5-10.1) 9.0 MG/DL (8.5-10.1) Total Bilirubin 1.3 MG/DL (0.2-1.0) H Direct Bilirubin 0.4 MG/DL (0.0-0.3) H Aspartate Amino Transf (AST/SGOT) 25 U/L (15-37) Alanine Aminotransferase (ALT/SGPT) 20 U/L (12-78) Alkaline Phosphatase 166 U/L (46-116) H Total Creatine Kinase 202 U/L (26-308) Creatine Kinase MB 4.0 NG/ML (0.0-3.6) H Creatine Kinase MB Relative Index 1.9 Troponin I 0.026 ng/mL (0.000-0.056) 0.035 ng/mL (0.000-0.056) 0.033 ng/mL (0.000-0.056) Pro-B-Type Natriuretic Peptide 1697 pg/mL (0-125) H Total Protein 7.3 G/DL (6.4-8.2) Albumin 3.4 G/DL (3.4-5.0) Globulin 3.9 g/dL Albumin/Globulin Ratio 0.9 (1.0-2.7) L Lipase 101 U/L (73-393) Height (Feet): 5 Height (Inches): 3.00 Weight (Pounds): 280 Medications Current Medications Medications (Trade) Dose Ordered Sig/Toya Route PRN Reason Start Time Stop Time Status Last Admin Dose Admin Acetaminophen (Tylenol) 650 mg Q4H PRN ORAL Fever (temp>100.5F) 09/24/17 17:15 10/24/17 17:14 Acetaminophen/ Hydrocodone Bitart ([place] 10/325) 1 tab Q4H PRN ORAL For Pain 09/24/17 17:15 10/01/17 17:14 09/25/17 09:52 Albuterol/ Ipratropium (Albuterol/ Ipratropium) 3 ml Q4H PRN HHN Shortness of Breath 09/24/17 17:15 09/29/17 17:14 Apixaban (Eliquis) 5 mg Q12HR ORAL 09/24/17 21:00 10/24/17 20:59 09/25/17 09:42 Carvedilol (Coreg) 6.25 mg EVERY 12 HOURS ORAL 09/24/17 21:00 10/24/17 20:59 09/25/17 09:41 Clonidine HCl (Catapres Tab) 0.1 mg TIDPRN PRN ORAL for SBP >160 mmHg 09/24/17 21:00 10/24/17 20:59 09/24/17 23:34 Dextrose (Dextrose 50%) 25 ml STAT PRN IV Hypoglycemia 09/24/17 17:15 10/24/17 17:14 Dextrose (Dextrose 50%) 50 ml STAT PRN IV Hypoglycemia 09/24/17 17:30 10/24/17 17:14 Digoxin (Lanoxin) 0.125 mg DAILY ORAL 09/25/17 09:00 10/25/17 08:59 09/25/17 09:43 Enalapril Maleate (Vasotec) 2.5 mg EVERY 12 HOURS ORAL 09/24/17 21:00 10/24/17 20:59 09/25/17 09:43 Furosemide (Lasix) 40 mg EVERY 8 HOURS IV 09/24/17 22:00 10/24/17 21:59 09/25/17 06:11 Gabapentin (Neurontin) 300 mg BID ORAL 09/24/17 18:00 10/24/17 17:59 09/25/17 09:42 Insulin Aspart (NovoLOG) BEFORE MEALS AND HS SUBQ 09/24/17 21:00 10/24/17 20:59 Ondansetron HCl (Zofran) 4 mg Q6H PRN IVP Nausea & Vomiting 09/24/17 17:15 10/24/17 17:14 Polyethylene Glycol (Miralax) 17 gm DAILYPRN PRN ORAL Constipation 09/24/17 17:15 10/24/17 17:14 Sildenafil Citrate (Revatio) 20 mg TID ORAL 09/24/17 18:00 10/24/17 17:59 09/25/17 09:40 Sitagliptin Phosphate (Januvia) 50 mg DAILY ORAL 09/25/17 09:00 10/25/17 08:59 09/25/17 09:42 Temazepam (Restoril) 15 mg HSPRN PRN ORAL Insomnia 09/24/17 17:15 10/01/17 17:14 Assessment/Plan Problem List: (1) ACS (acute coronary syndrome) ICD Codes: I24.9 - Acute ischemic heart disease, unspecified SNOMED: 708681046 (2) Pulmonary edema ICD Codes: J81.1 - Chronic pulmonary edema SNOMED: 05051405 (3) CHF (congestive heart failure) ICD Codes: I50.9 - Heart failure, unspecified SNOMED: 36866872 (4) Pulmonary hypertension ICD Codes: I27.2 - Other secondary pulmonary hypertension SNOMED: 80473858 (5) HTN (hypertension) ICD Codes: I10 - HTN (hypertension) SNOMED: 81284111 (6) Tobacco user (7) DM (diabetes mellitus) ICD Codes: E11.9 - DM (diabetes mellitus) SNOMED: 97020411 Assessment/Plan respiratory treatment check sputum IV diuretics check echo sliding scale diabetic diet dvt prophylaxis. Jesús Farrell MD Sep 25, 2017 11:44
[2017-09-25 12:00] VITALS: BP 144/88
--- NOTE | 2017-09-25 14:01 | General Progress Note ---
Progress Note Progress Note pt seen and examined full note dictated Marzena Nielsen MD Sep 25, 2017 14:01
[2017-09-25 16:00] VITALS: BP 125/83
--- NOTE | 2017-09-25 17:26 | Cardiology Report ---
APPROVED REPORT EXAM: Two-dimensional and M-mode echocardiogram with Doppler and color Doppler. INDICATION Left Ventricular Function M-Mode DIMENSIONS IVSd1.2 (0.7-1.1cm)Left Atrium (MM)3.9 (1.6-4.0cm) LVDd4.9 (3.5-5.6cm)Aortic Root2.7 (2.0-3.7cm) PWd1.2 (0.7-1.1cm)Aortic Cusp Exc.2.0 (1.5-2.0cm) LVDs3.4 (2.5-4.0cm) PWs1.7 cm Technically difficult study due to patient body habitus. Study quality precludes accurate assessment of regional wall motion. Normal left ventricular chamber size. Mild global left ventricular hypokinesis. Left ventricular ejection fraction estimated to be 45-50 %. Mild left ventricular hypertrophy. Anterior Echo-free space, may be due to pericardial fat or effusion. Severe right atrial enlargement. Moderate right ventricular enlargement. Left atrial chamber sizes is within normal limits Heavy focal aortic valve sclerosis with reduced cusp excursion. Moderately thickened mitral valve leaflets with normal excursion. Heavy mitral annulus and aortic root calcification. Normal pulmonic valve structure. Normal tricuspid valve structure. IVC dilated at 3.1 cm without physiological collapse, estimated RAP is 20 mmHg. Diastolic flattening of ventricular septum, suggestive of right ventricle volume overload. Abnormal septal motion due to right ventricle volume overload. A color flow and spectral Doppler study was performed and revealed: Mild aortic insufficiency. Peak aortic valve gradient of 9 mmHg and a mean of 5 mmHg. Aortic valve area 1.6 cm2 calculated by continuity equation Mild mitral regurgitation. Mitral inflow velocities indicates possible pseudo normalization pattern implying significant left ventricular diastolic dysfunction (Grade II). Severe tricuspid regurgitation. Tricuspid systolic velocities suggests peak right ventricular systolic pressure of 81 mmHg, consistent with severe pulmonary hypertension. Mild pulmonic regurgitation present.
--- NOTE | 2017-09-25 19:46 | History and Physical Report ---
DATE OF ADMISSION: 09/24/2017 CONSULTANTS: 1. Jesús Farrell M.D. 2. Justice Erickson M.D. CHIEF COMPLAINT: Shortness of breath and chest pain. BRIEF HISTORY: This is a 67-year-old female, who lives at home with history of congestive heart failure, hypertension, and obesity, presents with shortness of breath and slight chest pain over the past three days, intermittent, substernal, no radiation, no loss of consciousness, no dizziness. The patient came to [facility], diagnosed with the above, and admitted to telemetry for further care. Currently, O2 NC, slightly short of breath, in bed, no complaint. REVIEW OF SYSTEMS: Slight chest pain. Slight shortness of breath. No nausea, vomiting, or diarrhea. PAST MEDICAL HISTORY: CHF, hypertension, obesity, diabetes, and AFib. PAST SURGICAL HISTORY: None. MEDICATIONS: Include Januvia, Lanoxin, Lasix, Coreg, Eliquis, Vasotec, Catapres, and Neurontin. ALLERGIES: Penicillin and aspirin. SOCIAL HISTORY: No smoking. No alcohol. No intravenous drug use. FAMILY HISTORY: Noncontributory. PHYSICAL EXAMINATION: GENERAL: Calm in bed, oriented x3, and slightly short of breath. O2 NC in place. VITAL SIGNS: Temperature is 98, pulse 98, respirations 20, and blood pressure 152/100. CARDIOVASCULAR: No murmur. LUNGS: Poor air exchange. ABDOMEN: Bowel sounds distant. EXTREMITIES: Show no cyanosis or clubbing. A 1+ edema. NEUROLOGIC: The patient moves all extremities, slightly weak. LABORATORY DATA: Labs at this time show CBC is normal. BMP shows BUN and creatinine are 24 and 1.5 and glucose 127, otherwise, BMP is normal. ASSESSMENT: 1. Shortness of breath. 2. Chest pain. 3. Hypertension. 4. Congestive heart failure. 5. Obesity. 6. Renal failure. 7. Diabetes. 8. Atrial fibrillation. PLAN: 1. Continue previous meds. 2. O2 and pulmonary treatment. 3. OT, PT, and dietary evaluation. 4. CBC and BMP in the morning. 5. Cardiac and Nephrology followup and Pulmonary followup. 6. We will continue to follow this patient. Pedro Benjamin D.O. DR: MORELIA JOB#: [id number] CC:
[2017-09-25 20:00] VITALS: BP 128/78
--- NOTE | 2017-09-25 23:50 | Cardiology Progress Note ---
Assessment/Plan Assessment/Plan 1. Acute on chronic diastolic congestive heart failure, due to medication non- compliance, resume furosemide, carvedilol and digoxin. 2. Tachycardia-induced cardiomyopathy, improved following cardioversion of atrial flutter, with LVEF up to 45%. 3. Paroxysmal atrial flutter converted to sinus rhythm with electrical DCCV, continue amiodarone, restart Eliquis. 4. Right heart failure, will consider Entresto in the outpatient setting. 5. HTN, well controlled, continue the current regimen. 6. RACHELLE on CKD, creat up to 1.5. 7. History of COPD. Subjective Subjective Sinus rhythm at 73. Objective Last 24 Hour Vital Signs Date Time Temp Pulse Resp B/P (MAP) Pulse Ox O2 Delivery O2 Flow Rate FiO2 09/25/17 21:03 73 128/78 09/25/17 20:00 92 Nasal Cannula 2.0 28 09/25/17 19:30 Nasal Cannula 2.0 28 09/25/17 19:30 84 18 Nasal Cannula 2.0 28 09/25/17 16:00 77 09/25/17 16:00 96.4 79 21 125/83 99 Nasal Cannula 2.0 96.4 09/25/17 12:00 67 09/25/17 12:00 96.4 65 21 144/88 100 Nasal Cannula 2.0 96.4 09/25/17 09:43 152/100 09/25/17 09:43 79 09/25/17 09:41 98 157/88 09/25/17 08:04 102 22 Room Air 09/25/17 08:04 Nasal Cannula 2.0 28 09/25/17 08:04 93 Nasal Cannula 2.0 28 09/25/17 08:00 98.0 79 20 152/100 98 Nasal Cannula 2.0 98.0 09/25/17 04:00 98.0 83 20 148/107 97 Nasal Cannula 2.0 98.0 09/25/17 03:44 79 09/25/17 00:33 98.0 09/24/17 23:58 98.0 93 18 177/110 98 Nasal Cannula 1.0 98.0 Intake and Output 09/24/17 09/25/17 19:00 07:00 Intake Total 180 ml Output Total 700 ml Balance -520 ml Intake Oral 180 ml Output Urine Total 700 ml # Voids 4 2D Echo: EF 45%,Global LV HK,Sev RA/RV dilation,RVSP 81mmHg,Mild AR/MR,Grade II LVDD Laboratory Tests Test 09/25/17 05:45 Sodium Level 144 MMOL/L (136-145) Potassium Level 4.0 MMOL/L (3.5-5.1) Chloride Level 106 MMOL/L (98-107) Carbon Dioxide Level 30 MMOL/L (21-32) Anion Gap 8 mmol/L (5-15) Blood Urea Nitrogen 25 mg/dL (7-18) H Creatinine 1.5 MG/DL (0.55-1.30) H Estimat Glomerular Filtration Rate 42.3 mL/min (>60) Glucose Level 127 MG/DL (74-106) H Calcium Level 9.0 MG/DL (8.5-10.1) Troponin I 0.033 ng/mL (0.000-0.056) Objective HEENT: Atraumatic and normocephalic. Anicteric. Pupils are equal, round, and reactive to light and accommodation. Extraocular muscles intact. NECK: JVP is elevated at about 15 cm. No carotid bruits. Carotid upstrokes 2+ bilaterally. CARDIOVASCULAR: Normal S1 and S2. Regular rhythm, No murmurs, gallop or rubs. LUNGS: Diminished breath sounds in both bases. ABDOMEN: Distended and nontender. Positive bowel sounds. No hepatosplenomegaly EXTREMITIES: There is 2+ bilateral edema. Justice Erickson MD Sep 25, 2017 23:50
[2017-09-26] VITALS: BP 133/85
--- NOTE | 2017-09-26 00:32 | Consultation ---
DATE OF CONSULTATION: 09/25/2017 NEPHROLOGY CONSULTATION CONSULTING PHYSICIAN: Marzena Nielsen M.D. REFERRING PHYSICIAN: Pedro Benjamin D.O. REASON FOR CONSULTATION: Acute renal failure. HISTORY OF PRESENT ILLNESS: The patient is a very pleasant 67-year-old female with past medical history significant for history of hypertension, morbid obesity, chronic lower extremity ulceration, history of CAD, COPD, and pulmonary hypertension, who presented to emergency room at [facility] complaining of elevation of her blood pressure. Apparently, the patient said that her blood pressure continued to be elevated over 160 and she was not able to get it under control. She started having some shortness of breath, some orthopnea, the leg swelling is about the same. She came to emergency room. Initially, in the ER, the patient was found to have pulmonary vascular congestion. The patient was started on IV diuretic. The creatinine went up to 1.5. I was called for management of renal disease and electrolyte imbalance. PAST MEDICAL HISTORY: 1. History of morbid obesity. 2. History of hypertension. 3. History of diabetes. 4. History of diabetic neuropathy. 5. History of dyslipidemia. 6. History of tobacco use. MEDICATIONS: Home medications includin. Atorvastatin 20 mg p.o. daily. 2. Lasix 40 mg p.o. daily. 3. Gabapentin 300 mg p.o. daily. 4. Losartan 50 mg daily. 5. Metformin 100 mg p.o. daily. 6. Prilosec 20 mg p.o. daily. 7. 20 mg p.o. daily. 8. Januvia 50 mg p.o. daily. 9. Tylenol 650 mg q.6 h. p.r.n. pain. ALLERGIES: The patient is allergic to aspirin and penicillin. SOCIAL HISTORY: Lives at home. There is no history of tobacco, alcohol, or drug use. REVIEW OF SYSTEMS: GENERAL: She complained of generalized weakness. Denied any fever, chills, or night sweats. HEAD AND NECK: Denies any dysphagia, odynophagia, blurry vision, headache, or neck stiffness. PULMONARY: Complained of mild shortness of breath. No cough. No sputum. CARDIOVASCULAR: Denies any chest pain or palpitations. GASTROINTESTINAL: Denied any nausea, vomiting, diarrhea, hematemesis, or hematochezia. GENITOURINARY: Denies any dysuria, frequency, or hematuria. MUSCULOSKELETAL: Denies any weakness or numbness. Still has a chronic ulceration. PHYSICAL EXAMINATION: VITAL SIGNS: The patient had temperature of 98 degrees, blood pressure 152/100, pulse rate of 79, and respiratory rate of 18. HEAD AND NECK: No JVP. No LAD. No thyromegaly. Extraocular movements intact. Pupils are reactive to light and accommodation. LUNGS: Decreased breathing sound on the both sides. CARDIAC: Regular rate and rhythm. S1 and S2. No murmur. No rub. ABDOMEN: Obese, nontender, and not distended. No organomegaly. EXTREMITIES: There is 3+ edema. No clubbing. No cyanosis. NEUROLOGIC: Cranial nerves II through XII within normal limits. Upper and lower extremities are grossly intact. LABORATORY AND DIAGNOSTIC DATA: The patient has . WBC count of 8.4, hemoglobin of 13, hematocrit of 45, and platelet count of 276. Chemistry revealed sodium 144, potassium 4, chloride 106, bicarbonate 30, BUN of 25, creatinine of 1.5, and glucose of 127. Total bilirubin of 1.3, direct bilirubin of 0.4, AST of 25, ALT of 20, and alkaline phosphatase of 166. The rest of the blood tests are okay. ASSESSMENT: 1. Acute renal failure, etiology of acute renal failure are including acute tubular necrosis due to unstable hemodynamics. 2. Hypertensive urgency. 3. Rule out diabetic nephropathy. The patient has most likely some degree of diabetic nephropathy. She has had some degree of diabetic neuropathy. 4. Dyslipidemia. 5. Morbid obesity. PLAN: Plan for the patient to discontinue lisinopril. Continue with Lasix. Daily weight. Monitor input and output. Check the random urine protein creatinine ratio to calculate the proteinuria. Check the urine sodium and creatinine to calculate fractional excretion of sodium. Check the microalbumin level. At the end I would like to thank, Dr. Pedro Benjamin, for allowing me to participate in the care of this patient. Marzena Nielsen M.D. DR: NEREIDA JOB#: [id number] CC:
[2017-09-26 04:00] VITALS: BP 127/75
[2017-09-26] MEDS: NovoLOG Insulin Flexpen SUBQ SCH ×4 (06:30→21:10)
[2017-09-26] MEDS: Eliquis 2.5mg tablet ORAL SCH ×2 (07:58→21:11)
[2017-09-26] MEDS: Revatio 20mg tab ORAL SCH ×3 (07:58→18:18)
[2017-09-26] MEDS: sitaGLIPtin 50mg tab ORAL SCH (07:59)
[2017-09-26 08:00] VITALS: BP 126/74
[2017-09-26] MEDS: Digoxin 0.125mg tab ORAL SCH (08:00)
[2017-09-26] MEDS: HYDROcodone/Acetamin 10/325 tab ORAL PRN (08:03)
[2017-09-26 08:14] LABS: BASOPHILS % (AUTO) 1.2 % (0.0-2.0); EOSINOPHILS % (AUTO) 0.9 % (0.0-3.0); HEMATOCRIT 46.4 % (37.0-47.0); HEMOGLOBIN 13.4 G/DL (12.0-16.0); LYMPHOCYTES % (AUTO) 13.9 % (20.0-45.0); MEAN CORPUSCULAR VOLUME 83 FL (80-99); MONOCYTES % (AUTO) 6.3 % (1.0-10.0); NEUTROPHILS % (AUTO) 77.6 % (45.0-75.0); PLATELET COUNT 304 K/UL (150-450); RED BLOOD COUNT 5.58 M/UL (4.20-5.40); RED CELL DISTRIBUTION WIDTH 16.4 % (11.6-14.8)
[2017-09-26] MEDS: Carvedilol 6.25mg Tab ORAL SCH ×2 (08:20→21:12)
[2017-09-26 08:37] LABS: ANION GAP 6 mmol/L (5-15); BLOOD UREA NITROGEN 38 mg/dL (7-18); CALCIUM 8.7 MG/DL (8.5-10.1); CARBON DIOXIDE 33 MMOL/L (21-32); CHLORIDE 104 MMOL/L (98-107); CREATININE 1.7 MG/DL (0.55-1.30); POTASSIUM 4.3 MMOL/L (3.5-5.1); SODIUM 143 MMOL/L (136-145)
--- NOTE | 2017-09-26 08:57 | General Progress Note ---
Assessment/Plan Problem List: (1) Edema ICD Codes: R60.9 - Edema, unspecified SNOMED: 345221806 (2) Acute bronchitis (3) ARF (acute renal failure) ICD Codes: N17.9 - Acute kidney failure, unspecified SNOMED: 30484339 (4) ACS (acute coronary syndrome) ICD Codes: I24.9 - Acute ischemic heart disease, unspecified SNOMED: 884382742 (5) Acute chest pain ICD Codes: R07.9 - Acute chest pain SNOMED: 140075630 (6) HTN (hypertension) ICD Codes: I10 - HTN (hypertension) SNOMED: 70179497 (7) DM (diabetes mellitus) ICD Codes: E11.9 - DM (diabetes mellitus) SNOMED: 08513170 (8) CHF (congestive heart failure) ICD Codes: I50.9 - Heart failure, unspecified SNOMED: 70856753 Status: unchanged Assessment/Plan o2 pulm tx abx ot pt dit cbc bmp am Subjective Constitutional: Reports: weakness Respiratory: Reports: shortness of breath Allergies: Coded Allergies: ASPIRIN (Verified Allergy, Intermediate, Hives, 01/06/13) PENICILLINS (Verified Allergy, Intermediate, Hives, 01/06/13) All Systems: reviewed and negative except above Subjective o2nc sl sob Objective Last 24 Hour Vital Signs Date Time Temp Pulse Resp B/P (MAP) Pulse Ox O2 Delivery O2 Flow Rate FiO2 09/26/17 08:20 78 126/74 09/26/17 08:00 76 09/26/17 04:00 97.0 75 20 127/75 99 Nasal Cannula 2.0 97.0 09/26/17 04:00 73 09/26/17 00:00 98.0 73 20 133/85 100 Nasal Cannula 2.0 98.0 09/26/17 00:00 73 09/25/17 21:03 73 128/78 09/25/17 20:00 92 Nasal Cannula 2.0 28 09/25/17 20:00 98.8 73 20 128/78 100 Nasal Cannula 2.0 98.8 09/25/17 20:00 74 09/25/17 19:30 Nasal Cannula 2.0 28 09/25/17 19:30 84 18 Nasal Cannula 2.0 28 09/25/17 16:00 77 6/1/18 16:00 96.4 79 21 125/83 99 Nasal Cannula 2.0 96.4 09/25/17 12:00 67 09/25/17 12:00 96.4 65 21 144/88 100 Nasal Cannula 2.0 96.4 09/25/17 09:43 152/100 09/25/17 09:43 79 09/25/17 09:41 98 157/88 Intake and Output 09/25/17 09/26/17 19:00 07:00 Intake Total 400 ml Output Total 1400 ml Balance -1000 ml Intake Oral 400 ml Output Urine Total 1400 ml Laboratory Tests 09/26/17 06:45: White Blood Count 11.0H, Red Blood Count 5.58H, Hemoglobin 13.4, Hematocrit 46.4 , Mean Corpuscular Volume 83, Mean Corpuscular Hemoglobin 23.9L, Mean Corpuscular Hemoglobin Concent 28.9L, Red Cell Distribution Width 16.4H, Platelet Count 304, Mean Platelet Volume 8.5, Neutrophils (%) (Auto) 77.6H, Lymphocytes (%) (Auto) 13.9L, Monocytes (%) (Auto) 6.3, Eosinophils (%) (Auto) 0.9, Basophils (%) (Auto) 1.2, Sodium Level 143, Potassium Level 4.3, Chloride Level 104, Carbon Dioxide Level 33H, Anion Gap 6, Blood Urea Nitrogen 38H, Creatinine 1.7H, Estimat Glomerular Filtration Rate 36.6, Glucose Level 118H, Calcium Level 8.7, Troponin I 0.014, Digoxin Level [Pending] 09/26/17 06:59: Urine Eosinophils Rare, Urine Random Total Protein 62H, Urine Random Sodium 133H , Urine Creatinine 28.6L Height (Feet): 5 Height (Inches): 3.00 Weight (Pounds): 280 General Appearance: lethargic EENT: normal ENT inspection Neck: normal alignment Cardiovascular: normal peripheral pulses, normal rate Respiratory/Chest: chest wall non-tender, decreased breath sounds Abdomen: normal bowel sounds, non tender, soft Extremities: normal inspection Edema: 1+ Arm (L), 1+ Arm (R), 1+ Leg (L), 1+ Leg (R), 1+ Pedal (L), 1+ Pedal ( R), 1+ Generalized Edema: trace edema Neurologic: responsive, motor weakness Skin: normal pigmentation, warm/dry Pedro Benjamin DO Sep 26, 2017 08:57
--- NOTE | 2017-09-26 10:40 | Pulmonology Progress Note ---
Assessment/Plan Problems: (1) ACS (acute coronary syndrome) (2) Pulmonary edema (3) Pulmonary hypertension (4) COPD (chronic obstructive pulmonary disease) (5) Tobacco user (6) DM (diabetes mellitus) (7) HTN (hypertension) Assessment/Plan symptomatic treatment diuretics adjust cardiac meds respiratory treatment cardio note appreciated titrate fio2 to sat of 92% dvt prophylaxis monitor BP and heart rate. Subjective ROS Limited/Unobtainable: No Constitutional: Reports: no symptoms HEENT: Repors: no symptoms Respiratory: Reports: no symptoms Allergies: Coded Allergies: ASPIRIN (Verified Allergy, Intermediate, Hives, 01/06/13) PENICILLINS (Verified Allergy, Intermediate, Hives, 01/06/13) Objective Last 24 Hour Vital Signs Date Time Temp Pulse Resp B/P (MAP) Pulse Ox O2 Delivery O2 Flow Rate FiO2 09/26/17 09:52 Nasal Cannula 2.0 28 09/26/17 09:51 94 Nasal Cannula 2.0 28 09/26/17 09:50 89 16 Nasal Cannula 2.0 28 09/26/17 09:02 97.0 09/26/17 08:20 78 126/74 09/26/17 08:00 97.7 78 20 126/74 100 Nasal Cannula 2.0 97.7 09/26/17 08:00 76 09/26/17 04:00 97.0 75 20 127/75 99 Nasal Cannula 2.0 97.0 09/26/17 04:00 73 09/26/17 00:00 98.0 73 20 133/85 100 Nasal Cannula 2.0 98.0 09/26/17 00:00 73 09/25/17 21:03 73 128/78 09/25/17 20:00 92 Nasal Cannula 2.0 28 09/25/17 20:00 98.8 73 20 128/78 100 Nasal Cannula 2.0 98.8 09/25/17 20:00 74 09/25/17 19:30 Nasal Cannula 2.0 28 09/25/17 19:30 84 18 Nasal Cannula 2.0 28 09/25/17 16:00 77 09/25/17 16:00 96.4 79 21 125/83 99 Nasal Cannula 2.0 96.4 09/25/17 12:00 67 09/25/17 12:00 96.4 65 21 144/88 100 Nasal Cannula 2.0 96.4 Intake and Output 09/25/17 09/26/17 19:00 07:00 Intake Total 400 ml Output Total 1400 ml Balance -1000 ml Intake Oral 400 ml Output Urine Total 1400 ml General Appearance: WD/WN HEENT: normocephalic, anicteric Respiratory/Chest: chest wall non-tender, normal breath sounds Breasts: no masses Cardiovascular: normal peripheral pulses, normal rate Abdomen: normal bowel sounds, soft, non tender, no organomegaly 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 Laboratory Tests 09/26/17 06:45: White Blood Count 11.0H, Red Blood Count 5.58H, Hemoglobin 13.4, Hematocrit 46.4 , Mean Corpuscular Volume 83, Mean Corpuscular Hemoglobin 23.9L, Mean Corpuscular Hemoglobin Concent 28.9L, Red Cell Distribution Width 16.4H, Platelet Count 304, Mean Platelet Volume 8.5, Neutrophils (%) (Auto) 77.6H, Lymphocytes (%) (Auto) 13.9L, Monocytes (%) (Auto) 6.3, Eosinophils (%) (Auto) 0.9, Basophils (%) (Auto) 1.2, Sodium Level 143, Potassium Level 4.3, Chloride Level 104, Carbon Dioxide Level 33H, Anion Gap 6, Blood Urea Nitrogen 38H, Creatinine 1.7H, Estimat Glomerular Filtration Rate 36.6, Glucose Level 118H, Calcium Level 8.7, Troponin I 0.014, Digoxin Level 0.4L 09/26/17 06:59: Urine Eosinophils Rare, Urine Random Total Protein 62H, Urine Random Sodium 133H , Urine Creatinine 28.6L Current Medications Medications (Trade) Dose Ordered Sig/Toya Route PRN Reason Start Time Stop Time Status Last Admin Dose Admin Acetaminophen (Tylenol) 650 mg Q4H PRN ORAL Fever (temp>100.5F) 09/24/17 17:15 10/24/17 17:14 Acetaminophen/ Hydrocodone Bitart ([place] 10/325) 1 tab Q4H PRN ORAL For Pain 09/24/17 17:15 10/01/17 17:14 09/26/17 08:03 Albuterol/ Ipratropium (Albuterol/ Ipratropium) 3 ml Q4H PRN HHN Shortness of Breath 09/24/17 17:15 6/5/18 17:14 Apixaban (Eliquis) 5 mg Q12HR ORAL 09/24/17 21:00 10/24/17 20:59 09/26/17 07:58 Carvedilol (Coreg) 12.5 mg EVERY 12 HOURS ORAL 09/26/17 09:00 10/26/17 08:59 09/26/17 08:20 Clonidine HCl (Catapres Tab) 0.1 mg TIDPRN PRN ORAL for SBP >160 mmHg 09/24/17 21:00 10/24/17 20:59 09/24/17 23:34 Dextrose (Dextrose 50%) 25 ml STAT PRN IV Hypoglycemia 09/24/17 17:15 10/24/17 17:14 Dextrose (Dextrose 50%) 50 ml STAT PRN IV Hypoglycemia 09/24/17 17:30 10/24/17 17:14 Digoxin (Lanoxin) 0.125 mg DAILY ORAL 09/25/17 09:00 10/25/17 08:59 09/26/17 08:00 Furosemide (Lasix) 40 mg DAILY IV 09/26/17 09:00 10/26/17 08:59 09/26/17 08:20 Gabapentin (Neurontin) 300 mg BID ORAL 09/24/17 18:00 10/24/17 17:59 09/26/17 07:58 Insulin Aspart (NovoLOG) BEFORE MEALS AND HS SUBQ 09/24/17 21:00 10/24/17 20:59 09/25/17 21:06 Ondansetron HCl (Zofran) 4 mg Q6H PRN IVP Nausea & Vomiting 09/24/17 17:15 10/24/17 17:14 Polyethylene Glycol (Miralax) 17 gm DAILYPRN PRN ORAL Constipation 09/24/17 17:15 10/24/17 17:14 Sildenafil Citrate (Revatio) 20 mg TID ORAL 09/24/17 18:00 10/24/17 17:59 09/26/17 07:58 Sitagliptin Phosphate (Januvia) 50 mg DAILY ORAL 09/25/17 09:00 10/25/17 08:59 09/26/17 07:59 Temazepam (Restoril) 15 mg HSPRN PRN ORAL Insomnia 09/24/17 17:15 10/01/17 17:14 Jesús Farrell MD Sep 26, 2017 10:40
--- NOTE | 2017-09-26 11:41 | Consultation ---
History of Present Illness General Date patient seen: Sep 26, 2017 Chief Complaint: Chest Pain Present Illness HPI 67 y/o F with hx of hypertension, morbid obesity, Dm2 c/w neuropathy, Afib, CHF , HLD, tobacco abuse, chronic lower extremity ulceration, history of CAD, COPD , and pulmonary hypertension presents to ED on 09/24 with elevated blood pressure , mid chest pain, SOB, orthopnea, leg swelling. IN ED noted to have pulmonary vascular congestion and given IV lasix. Also Creatinine up to 1.5 Denies any fevers or chills, cough, n/v/d, urinary symptoms. Afebrile, mild leukocytosis off abx Allergies: Coded Allergies: ASPIRIN (Verified Allergy, Intermediate, Hives, 01/06/13) PENICILLINS (Verified Allergy, Intermediate, Hives, 01/06/13) Medication History Scheduled Atorvastatin Calcium* (Lipitor*), 20 MG ORAL DAILY, (Reported) Furosemide* (Lasix*), 40 MG ORAL TWICE A DAY Gabapentin* (Gabapentin*), 300 MG ORAL BID, (Reported) Hydrocortisone/Aloe Vera (Hydrocortisone Plus 1% Cream), 28.4 GM TP TID, ( Reported) Losartan Potassium* (Losartan Potassium*), 50 MG ORAL DAILY, (Reported) Metformin Hcl* (Metformin Hcl*), 1,000 MG ORAL BID, (Reported) Omeprazole (Prilosec), 20 MG ORAL DAILY, (Reported) Sildenafil Citrate (Sildenafil), 20 MG ORAL TID, (Reported) Sitagliptin (Januvia), 50 MG ORAL DAILY, (Reported) Scheduled PRN Hydrocodone/Acetaminophen (Hydrocodon-Acetaminophn 10-325), 1 TAB ORAL Q4H PRN for For Pain, (Reported) Miscellaneous Medications Hc/Mineral Oil/Petrolat,Wht 1% (Hydrocortisone 1% Absorbase), 25 GM TP, ( Reported) Hydrocortisone/Aloe Vera (Hydrocortisone Plus 1% Cream), 28.4 GM TP, (Reported) Hydrocortisone/Aloe Vera (Hydrocortisone Plus 1% Cream), 28.4 GM TP, (Reported) Patient History Healthcare decision maker Resuscitation status Full Code Advanced Directive on File No Patient History Narrative Pmhx: as above Shx:Lives at home. There is no history of alcohol,or drug use. Fhx: non contributory Review of Systems All Other Systems: negative except mentioned in HPI Physical Exam Physical Exam Narrative HEAD AND NECK: No JVP. No LAD. No thyromegaly. Extraocular movements intact. Pupils are reactive to light and accommodation. LUNGS: Decreased breathing sound on the both sides. CARDIAC: Regular rate and rhythm. S1 and S2. No murmur. No rub. ABDOMEN: Obese, nontender, and not distended. No organomegaly. EXTREMITIES: There is 3+ edema. No clubbing. No cyanosis. NEUROLOGIC: Cranial nerves II through XII within normal limits. Upper and lower extremities are grossly intact. Last 24 Hour Vital Signs Date Time Temp Pulse Resp B/P (MAP) Pulse Ox O2 Delivery O2 Flow Rate FiO2 09/26/17 09:52 Nasal Cannula 2.0 28 09/26/17 09:51 94 Nasal Cannula 2.0 28 09/26/17 09:50 89 16 Nasal Cannula 2.0 28 09/26/17 09:02 97.0 09/26/17 08:20 78 126/74 09/26/17 08:00 97.7 78 20 126/74 100 Nasal Cannula 2.0 97.7 09/26/17 08:00 76 09/26/17 04:00 97.0 75 20 127/75 99 Nasal Cannula 2.0 97.0 09/26/17 04:00 73 09/26/17 00:00 98.0 73 20 133/85 100 Nasal Cannula 2.0 98.0 09/26/17 00:00 73 09/25/17 21:03 73 128/78 09/25/17 20:00 92 Nasal Cannula 2.0 28 09/25/17 20:00 98.8 73 20 128/78 100 Nasal Cannula 2.0 98.8 09/25/17 20:00 74 09/25/17 19:30 Nasal Cannula 2.0 28 09/25/17 19:30 84 18 Nasal Cannula 2.0 28 09/25/17 16:00 77 09/25/17 16:00 96.4 79 21 125/83 99 Nasal Cannula 2.0 96.4 09/25/17 12:00 67 09/25/17 12:00 96.4 65 21 144/88 100 Nasal Cannula 2.0 96.4 Intake and Output 09/25/17 09/26/17 19:00 07:00 Intake Total 400 ml Output Total 1400 ml Balance -1000 ml Intake Oral 400 ml Output Urine Total 1400 ml Laboratory Tests Test 09/26/17 06:45 09/26/17 06:59 White Blood Count 11.0 K/UL (4.8-10.8) H Red Blood Count 5.58 M/UL (4.20-5.40) H Hemoglobin 13.4 G/DL (12.0-16.0) Hematocrit 46.4 % (37.0-47.0) Mean Corpuscular Volume 83 FL (80-99) Mean Corpuscular Hemoglobin 23.9 PG (27.0-31.0) L Mean Corpuscular Hemoglobin Concent 28.9 G/DL (32.0-36.0) L Red Cell Distribution Width 16.4 % (11.6-14.8) H Platelet Count 304 K/UL (150-450) Mean Platelet Volume 8.5 FL (6.5-10.1) Neutrophils (%) (Auto) 77.6 % (45.0-75.0) H Lymphocytes (%) (Auto) 13.9 % (20.0-45.0) L Monocytes (%) (Auto) 6.3 % (1.0-10.0) Eosinophils (%) (Auto) 0.9 % (0.0-3.0) Basophils (%) (Auto) 1.2 % (0.0-2.0) Sodium Level 143 MMOL/L (136-145) Potassium Level 4.3 MMOL/L (3.5-5.1) Chloride Level 104 MMOL/L (98-107) Carbon Dioxide Level 33 MMOL/L (21-32) H Anion Gap 6 mmol/L (5-15) Blood Urea Nitrogen 38 mg/dL (7-18) H Creatinine 1.7 MG/DL (0.55-1.30) H Estimat Glomerular Filtration Rate 36.6 mL/min (>60) Glucose Level 118 MG/DL (74-106) H Calcium Level 8.7 MG/DL (8.5-10.1) Troponin I 0.014 ng/mL (0.000-0.056) Digoxin Level 0.4 NG/ML (0.9-2.0) L Urine Eosinophils Rare Urine Random Total Protein 62 MG/DL (< 11.9) H Urine Random Sodium 133 mmol/L (20-110) H Urine Creatinine 28.6 MG/DL (30.0-125.0) L Height (Feet): 5 Height (Inches): 3.00 Weight (Pounds): 280 Medications Current Medications Medications (Trade) Dose Ordered Sig/Toya Route PRN Reason Start Time Stop Time Status Last Admin Dose Admin Acetaminophen (Tylenol) 650 mg Q4H PRN ORAL Fever (temp>100.5F) 09/24/17 17:15 10/24/17 17:14 Acetaminophen/ Hydrocodone Bitart ([place] ) 1 tab Q4H PRN ORAL For Pain 09/24/17 17:15 10/01/17 17:14 09/26/17 08:03 Albuterol/ Ipratropium (Albuterol/ Ipratropium) 3 ml Q4H PRN HHN Shortness of Breath 09/24/17 17:15 09/29/17 17:14 Apixaban (Eliquis) 5 mg Q12HR ORAL 09/24/17 21:00 10/24/17 20:59 09/26/17 07:58 Carvedilol (Coreg) 12.5 mg EVERY 12 HOURS ORAL 09/26/17 09:00 10/26/17 08:59 09/26/17 08:20 Clonidine HCl (Catapres Tab) 0.1 mg TIDPRN PRN ORAL for SBP >160 mmHg 09/24/17 21:00 10/24/17 20:59 09/24/17 23:34 Dextrose (Dextrose 50%) 25 ml STAT PRN IV Hypoglycemia 09/24/17 17:15 10/24/17 17:14 Dextrose (Dextrose 50%) 50 ml STAT PRN IV Hypoglycemia 09/24/17 17:30 10/24/17 17:14 Digoxin (Lanoxin) 0.125 mg DAILY ORAL 09/25/17 09:00 10/25/17 08:59 09/26/17 08:00 Furosemide (Lasix) 40 mg DAILY IV 09/26/17 09:00 10/26/17 08:59 09/26/17 08:20 Gabapentin (Neurontin) 300 mg BID ORAL 09/24/17 18:00 10/24/17 17:59 09/26/17 07:58 Insulin Aspart (NovoLOG) BEFORE MEALS AND HS SUBQ 09/24/17 21:00 10/24/17 20:59 09/25/17 21:06 Ondansetron HCl (Zofran) 4 mg Q6H PRN IVP Nausea & Vomiting 09/24/17 17:15 10/24/17 17:14 Polyethylene Glycol (Miralax) 17 gm DAILYPRN PRN ORAL Constipation 09/24/17 17:15 10/24/17 17:14 Sildenafil Citrate (Revatio) 20 mg TID ORAL 09/24/17 18:00 10/24/17 17:59 09/26/17 07:58 Sitagliptin Phosphate (Januvia) 50 mg DAILY ORAL 09/25/17 09:00 10/25/17 08:59 09/26/17 07:59 Temazepam (Restoril) 15 mg HSPRN PRN ORAL Insomnia 09/24/17 17:15 10/01/17 17:14 Assessment/Plan Assessment/Plan Abx: None Assessment: Acute on chronic CHF exacerbation RACHELLE Mild leukocytosis- no obvious infectious process; suspect reactive to above -CXR: Mild CHF suspected. No significant change -afebrile L anterior leg chronic ulcer, no signs of infection hypertension morbid obesity Dm2 c/w neuropathy Afib HLD tobacco abuse chronic lower extremity ulceration CAD COPD pulmonary hypertension Plan: -Continue to monitor off abx unless febrile, increasing WBC -f/u cx -Monitor CBC/BMP, temperatures -aspiration precautions -Cards, renal f/u -wound care/protocol per hospital protocol Thank you for this consultation. Will continue to follow along with you. Discussed with LUCIO. Kavya Brandt M.D. Sep 26, 2017 11:40
[2017-09-26 12:00] VITALS: BP 118/64
[2017-09-26 15:48] VITALS: BP 104/68
--- NOTE | 2017-09-26 16:49 | Nephrology Progress Note ---
Assessment/Plan Assessment 1. Acute renal failure,. 2. Hypertensive urgency. 3. Rule out diabetic nephropathy. 4. Dyslipidemia. 5. Morbid obesity. Objective Objective Last 24 Hour Vital Signs Date Time Temp Pulse Resp B/P (MAP) Pulse Ox O2 Delivery O2 Flow Rate FiO2 09/26/17 15:48 97.7 78 20 104/68 95 Nasal Cannula 2.0 97.7 09/26/17 15:44 78 09/26/17 12:00 97.7 69 20 118/64 96 Nasal Cannula 2.0 97.7 09/26/17 12:00 64 09/26/17 09:52 Nasal Cannula 2.0 28 09/26/17 09:51 94 Nasal Cannula 2.0 28 09/26/17 09:50 89 16 Nasal Cannula 2.0 28 09/26/17 09:02 97.0 09/26/17 08:20 78 126/74 09/26/17 08:00 97.7 78 20 126/74 100 Nasal Cannula 2.0 97.7 09/26/17 08:00 85 09/26/17 08:00 76 09/26/17 04:00 97.0 75 20 127/75 99 Nasal Cannula 2.0 97.0 09/26/17 04:00 73 09/26/17 00:00 98.0 73 20 133/85 100 Nasal Cannula 2.0 98.0 09/26/17 00:00 73 09/25/17 21:03 73 128/78 09/25/17 20:00 92 Nasal Cannula 2.0 28 09/25/17 20:00 98.8 73 20 128/78 100 Nasal Cannula 2.0 98.8 09/25/17 20:00 74 09/25/17 19:30 Nasal Cannula 2.0 28 09/25/17 19:30 84 18 Nasal Cannula 2.0 28 Intake and Output 09/25/17 09/26/17 19:00 07:00 Intake Total 400 ml Output Total 1400 ml Balance -1000 ml Intake Oral 400 ml Output Urine Total 1400 ml Laboratory Tests 09/26/17 06:45: White Blood Count 11.0H, Red Blood Count 5.58H, Hemoglobin 13.4, Hematocrit 46.4 , Mean Corpuscular Volume 83, Mean Corpuscular Hemoglobin 23.9L, Mean Corpuscular Hemoglobin Concent 28.9L, Red Cell Distribution Width 16.4H, Platelet Count 304, Mean Platelet Volume 8.5, Neutrophils (%) (Auto) 77.6H, Lymphocytes (%) (Auto) 13.9L, Monocytes (%) (Auto) 6.3, Eosinophils (%) (Auto) 0.9, Basophils (%) (Auto) 1.2, Sodium Level 143, Potassium Level 4.3, Chloride Level 104, Carbon Dioxide Level 33H, Anion Gap 6, Blood Urea Nitrogen 38H, Creatinine 1.7H, Estimat Glomerular Filtration Rate 36.6, Glucose Level 118H, Calcium Level 8.7, Troponin I 0.014, Digoxin Level 0.4L 09/26/17 06:59: Urine Eosinophils Rare, Urine Random Total Protein 62H, Urine Random Sodium 133H , Urine Creatinine 28.6L Height (Feet): 5 Height (Inches): 3.00 Weight (Pounds): 280 Objective HEAD AND NECK: No JVP. No LAD. No thyromegaly. Extraocular movements intact. Pupils are reactive to light and accommodation. LUNGS: Decreased breathing sound on the both sides. CARDIAC: Regular rate and rhythm. S1 and S2. No murmur. No rub. ABDOMEN: Obese, nontender, and not distended. No organomegaly. EXTREMITIES: There is 3+ edema. No clubbing. No cyanosis. NEUROLOGIC: Cranial nerves II through XII within normal limits. Upper and lower extremities are grossly intact. Marzena Nielsen MD Sep 26, 2017 16:49
--- NOTE | 2017-09-26 18:03 | Cardiology Progress Note ---
Assessment/Plan Assessment/Plan 1. Acute on chronic diastolic congestive heart failure, due to medication non- compliance, resume furosemide, carvedilol and digoxin. 2. Short runs of NSVT, optimize carvedilol. Mg check. 2. Tachycardia-induced cardiomyopathy, improved following cardioversion of atrial flutter, with LVEF up to 45%. 3. Paroxysmal atrial flutter converted to sinus rhythm with electrical DCCV, continue amiodarone, continue Eliquis. 4. Right heart failure, will consider Entresto in the outpatient setting. 5. HTN, well controlled, continue the current regimen. 6. RACHELLE on CKD, creat up to 1.8. ? due to ACEI vs high dose diuretics, will consider resuming ACEI in the future once renal fxn returns to the baseline in view of survival benefits of ACEI in heart failure patients. 7. History of COPD. Subjective Subjective Sinus rhythm at 78.A short run of NSVT reported. Objective Last 24 Hour Vital Signs Date Time Temp Pulse Resp B/P (MAP) Pulse Ox O2 Delivery O2 Flow Rate FiO2 09/26/17 15:48 97.7 78 20 104/68 95 Nasal Cannula 2.0 97.7 09/26/17 15:44 78 09/26/17 12:00 97.7 69 20 118/64 96 Nasal Cannula 2.0 97.7 09/26/17 12:00 64 09/26/17 09:52 Nasal Cannula 2.0 28 09/26/17 09:51 94 Nasal Cannula 2.0 28 09/26/17 09:50 89 16 Nasal Cannula 2.0 28 09/26/17 09:02 97.0 09/26/17 08:20 78 126/74 09/26/17 08:00 97.7 78 20 126/74 100 Nasal Cannula 2.0 97.7 09/26/17 08:00 85 09/26/17 08:00 76 09/26/17 04:00 97.0 75 20 127/75 99 Nasal Cannula 2.0 97.0 09/26/17 04:00 73 09/26/17 00:00 98.0 73 20 133/85 100 Nasal Cannula 2.0 98.0 09/26/17 00:00 73 09/25/17 21:03 73 128/78 09/25/17 20:00 92 Nasal Cannula 2.0 28 09/25/17 20:00 98.8 73 20 128/78 100 Nasal Cannula 2.0 98.8 09/25/17 20:00 74 09/25/17 19:30 Nasal Cannula 2.0 28 09/25/17 19:30 84 18 Nasal Cannula 2.0 28 Intake and Output 09/25/17 09/26/17 19:00 07:00 Intake Total 400 ml Output Total 1400 ml Balance -1000 ml Intake Oral 400 ml Output Urine Total 1400 ml 2D Echo: EF 45%,Global LV HK,Sev RA/RV dilation,RVSP 81mmHg,Mild AR/MR,Grade II LVDD Laboratory Tests Test 09/26/17 06:45 09/26/17 06:59 White Blood Count 11.0 K/UL (4.8-10.8) H Red Blood Count 5.58 M/UL (4.20-5.40) H Hemoglobin 13.4 G/DL (12.0-16.0) Hematocrit 46.4 % (37.0-47.0) Mean Corpuscular Volume 83 FL (80-99) Mean Corpuscular Hemoglobin 23.9 PG (27.0-31.0) L Mean Corpuscular Hemoglobin Concent 28.9 G/DL (32.0-36.0) L Red Cell Distribution Width 16.4 % (11.6-14.8) H Platelet Count 304 K/UL (150-450) Mean Platelet Volume 8.5 FL (6.5-10.1) Neutrophils (%) (Auto) 77.6 % (45.0-75.0) H Lymphocytes (%) (Auto) 13.9 % (20.0-45.0) L Monocytes (%) (Auto) 6.3 % (1.0-10.0) Eosinophils (%) (Auto) 0.9 % (0.0-3.0) Basophils (%) (Auto) 1.2 % (0.0-2.0) Sodium Level 143 MMOL/L (136-145) Potassium Level 4.3 MMOL/L (3.5-5.1) Chloride Level 104 MMOL/L (98-107) Carbon Dioxide Level 33 MMOL/L (21-32) H Anion Gap 6 mmol/L (5-15) Blood Urea Nitrogen 38 mg/dL (7-18) H Creatinine 1.7 MG/DL (0.55-1.30) H Estimat Glomerular Filtration Rate 36.6 mL/min (>60) Glucose Level 118 MG/DL (74-106) H Calcium Level 8.7 MG/DL (8.5-10.1) Troponin I 0.014 ng/mL (0.000-0.056) Digoxin Level 0.4 NG/ML (0.9-2.0) L Urine Eosinophils Rare Urine Random Total Protein 62 MG/DL (< 11.9) H Urine Random Sodium 133 mmol/L (20-110) H Urine Creatinine 28.6 MG/DL (30.0-125.0) L Objective HEENT: Atraumatic and normocephalic. Anicteric. Pupils are equal, round, and reactive to light and accommodation. Extraocular muscles intact. NECK: JVP is elevated at about 15 cm. No carotid bruits. Carotid upstrokes 2+ bilaterally. CARDIOVASCULAR: Normal S1 and S2. Regular rhythm, No murmurs, gallop or rubs. LUNGS: Diminished breath sounds in both bases. ABDOMEN: Distended and nontender. Positive bowel sounds. No hepatosplenomegaly EXTREMITIES: There is 2+ bilateral edema. Justice Erickson MD Sep 26, 2017 18:03
[2017-09-26 20:00] VITALS: BP 125/76
[2017-09-27] VITALS: BP 102/64
[2017-09-27 04:00] VITALS: BP 98/59
[2017-09-27] MEDS: NovoLOG Insulin Flexpen SUBQ SCH ×4 (06:30→20:24)
--- NOTE | 2017-09-27 07:55 | General Progress Note ---
Assessment/Plan Problem List: (1) Edema ICD Codes: R60.9 - Edema, unspecified SNOMED: 026052658 (2) Acute bronchitis (3) ARF (acute renal failure) ICD Codes: N17.9 - Acute kidney failure, unspecified SNOMED: 20600155 (4) ACS (acute coronary syndrome) ICD Codes: I24.9 - Acute ischemic heart disease, unspecified SNOMED: 952828493 (5) Acute chest pain ICD Codes: R07.9 - Acute chest pain SNOMED: 942089055 (6) HTN (hypertension) ICD Codes: I10 - HTN (hypertension) SNOMED: 46960532 (7) DM (diabetes mellitus) ICD Codes: E11.9 - DM (diabetes mellitus) SNOMED: 30151373 (8) CHF (congestive heart failure) ICD Codes: I50.9 - Heart failure, unspecified SNOMED: 38883337 Status: unchanged Assessment/Plan o2 pulm tx abx ot pt diet cbc bmp am brotman aru eval Subjective Constitutional: Reports: weakness Allergies: Coded Allergies: ASPIRIN (Verified Allergy, Intermediate, Hives, 01/06/13) PENICILLINS (Verified Allergy, Intermediate, Hives, 01/06/13) All Systems: reviewed and negative except above Subjective o2nc sl sob Objective Last 24 Hour Vital Signs Date Time Temp Pulse Resp B/P (MAP) Pulse Ox O2 Delivery O2 Flow Rate FiO2 09/27/17 04:00 97.8 78 20 98/59 93 Nasal Cannula 2.0 97.8 09/27/17 04:00 73 09/27/17 02:25 100.0 09/27/17 01:26 101.8 09/27/17 00:00 101.8 58 18 102/64 93 Nasal Cannula 2.0 101.8 09/27/17 00:00 58 09/26/17 21:12 65 125/76 09/26/17 20:00 63 09/26/17 20:00 97.6 65 20 125/76 95 Nasal Cannula 2.0 97.6 09/26/17 19:30 Nasal Cannula 2.0 28 09/26/17 19:30 80 18 Nasal Cannula 2.0 28 09/26/17 19:30 95 Nasal Cannula 2.0 28 09/26/17 15:48 97.7 78 20 104/68 95 Nasal Cannula 2.0 97.7 09/26/17 15:44 78 09/26/17 12:00 97.7 69 20 118/64 96 Nasal Cannula 2.0 97.7 09/26/17 12:00 64 09/26/17 09:52 Nasal Cannula 2.0 28 09/26/17 09:51 94 Nasal Cannula 2.0 28 09/26/17 09:50 89 16 Nasal Cannula 2.0 28 09/26/17 09:02 97.0 09/26/17 08:20 78 126/74 09/26/17 08:00 97.7 78 20 126/74 100 Nasal Cannula 2.0 97.7 09/26/17 08:00 85 09/26/17 08:00 76 Intake and Output 09/26/17 09/27/17 19:00 07:00 Intake Total 240 ml 100 ml Output Total 300 ml Balance 240 ml -200 ml Intake Oral 240 ml 100 ml Output Urine Total 300 ml Laboratory Tests 09/26/17 21:18: Magnesium Level 2.2 Height (Feet): 5 Height (Inches): 3.00 Weight (Pounds): 0 General Appearance: alert EENT: normal ENT inspection Neck: normal alignment Cardiovascular: normal peripheral pulses, normal rate, regular rhythm Respiratory/Chest: chest wall non-tender, decreased breath sounds Abdomen: normal bowel sounds, non tender, soft Extremities: normal inspection Edema: 1+ Arm (L), 1+ Arm (R), 1+ Leg (L), 1+ Leg (R), 1+ Pedal (L), 1+ Pedal ( R), 1+ Generalized Edema: trace edema Neurologic: motor weakness Skin: normal pigmentation, warm/dry Pedro Benjamin DO Sep 27, 2017 07:55
[2017-09-27 08:00] VITALS: BP 131/91
[2017-09-27 08:44] LABS: BASOPHILS % (AUTO) 1.4 % (0.0-2.0); EOSINOPHILS % (AUTO) 0.3 % (0.0-3.0); HEMATOCRIT 44.1 % (37.0-47.0); HEMOGLOBIN 13.2 G/DL (12.0-16.0); LYMPHOCYTES % (AUTO) 17.1 % (20.0-45.0); MEAN CORPUSCULAR VOLUME 82 FL (80-99); MONOCYTES % (AUTO) 7.4 % (1.0-10.0); NEUTROPHILS % (AUTO) 73.9 % (45.0-75.0); PLATELET COUNT 268 K/UL (150-450); RED BLOOD COUNT 5.36 M/UL (4.20-5.40); RED CELL DISTRIBUTION WIDTH 16.4 % (11.6-14.8); WHITE BLOOD COUNT 11.1 K/UL (4.8-10.8)
[2017-09-27] MEDS: Revatio 20mg tab ORAL SCH ×3 (08:51→17:46)
[2017-09-27] MEDS: sitaGLIPtin 50mg tab ORAL SCH (08:51)
[2017-09-27] MEDS: Eliquis 2.5mg tablet ORAL SCH ×2 (08:51→20:25)
[2017-09-27] MEDS: Digoxin 0.125mg tab ORAL SCH (08:51)
[2017-09-27] MEDS: Carvedilol 6.25mg Tab ORAL SCH ×3 (08:52→21:00)
[2017-09-27] MEDS: HYDROcodone/Acetamin 10/325 tab ORAL PRN (08:54)
[2017-09-27 09:22] LABS: ALANINE AMINOTRANSFERASE 17 U/L (12-78); ALBUMIN 2.9 G/DL (3.4-5.0); ALBUMIN/GLOBULIN RATIO 0.7 (1.0-2.7); ALKALINE PHOSPHATASE 157 U/L (46-116); ANION GAP 10 mmol/L (5-15); ASPARTATE AMINO TRANSFERASE 18 U/L (15-37); BILIRUBIN,TOTAL 1.4 MG/DL (0.2-1.0); BLOOD UREA NITROGEN 48 mg/dL (7-18); CALCIUM 8.8 MG/DL (8.5-10.1); CARBON DIOXIDE 29 MMOL/L (21-32); CHLORIDE 103 MMOL/L (98-107); CREATININE 1.8 MG/DL (0.55-1.30); POTASSIUM 4.1 MMOL/L (3.5-5.1); SODIUM 141 MMOL/L (136-145)
[2017-09-27 09:23] LABS: BILIRUBIN,DIRECT 0.5 MG/DL (0.0-0.3)
--- NOTE | 2017-09-27 10:11 | Pulmonology Progress Note ---
Assessment/Plan Problems: (1) Fever (2) ACS (acute coronary syndrome) (3) Pulmonary edema (4) Pulmonary hypertension (5) COPD (chronic obstructive pulmonary disease) (6) Tobacco user (7) DM (diabetes mellitus) (8) HTN (hypertension) Assessment/Plan unknown source of fever, CXR is clear, UA pending BC X 2 symptomatic treatment diuretics adjust cardiac meds respiratory treatment cardio note appreciated titrate fio2 to sat of 92% dvt prophylaxis monitor BP and heart rate. Subjective ROS Limited/Unobtainable: No Interval Events: c/o weakness, not shy to stand up Allergies: Coded Allergies: ASPIRIN (Verified Allergy, Intermediate, Hives, 01/06/13) PENICILLINS (Verified Allergy, Intermediate, Hives, 01/06/13) Objective Last 24 Hour Vital Signs Date Time Temp Pulse Resp B/P (MAP) Pulse Ox O2 Delivery O2 Flow Rate FiO2 09/27/17 09:00 76 118/69 09/27/17 08:51 76 09/27/17 08:51 Nasal Cannula 2.0 28 09/27/17 08:50 93 Nasal Cannula 2.0 28 09/27/17 08:49 88 20 Nasal Cannula 2.0 28 09/27/17 08:00 98.0 68 20 131/91 100 Nasal Cannula 2.0 98.0 09/27/17 04:00 97.8 78 20 98/59 93 Nasal Cannula 2.0 97.8 09/27/17 04:00 73 09/27/17 02:25 100.0 09/27/17 01:26 101.8 09/27/17 00:00 101.8 58 18 102/64 93 Nasal Cannula 2.0 101.8 09/27/17 00:00 58 09/26/17 21:12 65 125/76 09/26/17 20:00 63 09/26/17 20:00 97.6 65 20 125/76 95 Nasal Cannula 2.0 97.6 09/26/17 19:30 Nasal Cannula 2.0 28 09/26/17 19:30 80 18 Nasal Cannula 2.0 28 09/26/17 19:30 95 Nasal Cannula 2.0 28 09/26/17 15:48 97.7 78 20 104/68 95 Nasal Cannula 2.0 97.7 09/26/17 15:44 78 09/26/17 12:00 97.7 69 20 118/64 96 Nasal Cannula 2.0 97.7 09/26/17 12:00 64 Intake and Output 09/26/17 09/27/17 19:00 07:00 Intake Total 240 ml 100 ml Output Total 300 ml Balance 240 ml -200 ml Intake Oral 240 ml 100 ml Output Urine Total 300 ml General Appearance: WD/WN HEENT: normocephalic, atraumatic Respiratory/Chest: chest wall non-tender, lungs clear Breasts: no masses Cardiovascular: normal peripheral pulses, normal rate Abdomen: normal bowel sounds, soft, non tender, no scars Extremities: no clubbing Skin: rash, ulcers - leg Neurologic/Psychiatric: no motor/sensory deficits Laboratory Tests 09/26/17 21:18: Magnesium Level 2.2 09/27/17 07:53: White Blood Count 11.1H, Red Blood Count 5.36, Hemoglobin 13.2, Hematocrit 44.1 , Mean Corpuscular Volume 82, Mean Corpuscular Hemoglobin 24.7L, Mean Corpuscular Hemoglobin Concent 30.0L, Red Cell Distribution Width 16.4H, Platelet Count 268, Mean Platelet Volume 8.2, Neutrophils (%) (Auto) 73.9, Lymphocytes (%) (Auto) 17.1L, Monocytes (%) (Auto) 7.4, Eosinophils (%) (Auto) 0.3, Basophils (%) (Auto) 1.4, Sodium Level 141, Potassium Level 4.1, Chloride Level 103, Carbon Dioxide Level 29, Anion Gap 10, Blood Urea Nitrogen 48H, Creatinine 1.8H, Estimat Glomerular Filtration Rate 34.3, Glucose Level 107H, Calcium Level 8.8, Total Bilirubin 1.4H, Direct Bilirubin 0.5H, Aspartate Amino Transf (AST/SGOT) 18, Alanine Aminotransferase (ALT/SGPT) 17, Alkaline Phosphatase 157H, Total Protein 6.8, Albumin 2.9L, Globulin 3.9, Albumin/ Globulin Ratio 0.7L Current Medications Medications (Trade) Dose Ordered Sig/Toya Route PRN Reason Start Time Stop Time Status Last Admin Dose Admin Acetaminophen (Tylenol) 650 mg Q4H PRN ORAL Fever (temp>100.5F) 09/24/17 17:15 10/24/17 17:14 09/27/17 01:26 Acetaminophen/ Hydrocodone Bitart ([place] 10/325) 1 tab Q4H PRN ORAL For Pain 09/24/17 17:15 10/01/17 17:14 09/27/17 08:54 Albuterol/ Ipratropium (Albuterol/ Ipratropium) 3 ml Q4H PRN HHN Shortness of Breath 09/24/17 17:15 09/29/17 17:14 Apixaban (Eliquis) 5 mg Q12HR ORAL 09/24/17 21:00 10/24/17 20:59 09/27/17 08:51 Carvedilol (Coreg) 12.5 mg EVERY 12 HOURS ORAL 09/26/17 09:00 10/26/17 08:59 09/26/17 21:12 Clonidine HCl (Catapres Tab) 0.1 mg TIDPRN PRN ORAL for SBP >160 mmHg 09/24/17 21:00 10/24/17 20:59 09/24/17 23:34 Dextrose (Dextrose 50%) 25 ml STAT PRN IV Hypoglycemia 09/24/17 17:15 10/24/17 17:14 Dextrose (Dextrose 50%) 50 ml STAT PRN IV Hypoglycemia 09/24/17 17:30 10/24/17 17:14 Digoxin (Lanoxin) 0.125 mg DAILY ORAL 09/25/17 09:00 10/25/17 08:59 09/27/17 08:51 Furosemide (Lasix) 40 mg DAILY IV 09/26/17 09:00 10/26/17 08:59 09/27/17 08:51 Gabapentin (Neurontin) 300 mg BID ORAL 09/24/17 18:00 10/24/17 17:59 09/27/17 08:51 Insulin Aspart (NovoLOG) BEFORE MEALS AND HS SUBQ 09/24/17 21:00 10/24/17 20:59 09/26/17 21:10 Ondansetron HCl (Zofran) 4 mg Q6H PRN IVP Nausea & Vomiting 09/24/17 17:15 10/24/17 17:14 Polyethylene Glycol (Miralax) 17 gm DAILYPRN PRN ORAL Constipation 09/24/17 17:15 10/24/17 17:14 Sildenafil Citrate (Revatio) 20 mg TID ORAL 09/24/17 18:00 10/24/17 17:59 6/3/18 08:51 Sitagliptin Phosphate (Januvia) 50 mg DAILY ORAL 09/25/17 09:00 10/25/17 08:59 09/27/17 08:51 Temazepam (Restoril) 15 mg HSPRN PRN ORAL Insomnia 09/24/17 17:15 10/01/17 17:14 Jesús Farrell MD Sep 27, 2017 10:11
[2017-09-27 12:00] VITALS: BP 126/74
--- NOTE | 2017-09-27 14:51 | Consultation ---
Consult Note Consult Note NEUROLOGY CONSULTATION: Full note dictated #[id number] 67 y/o, RH, BF with PH of HTN, DM, DL, CHF, COPD, morbid obesity, diabetic neuropathy and progressive gait problems. She was hospitalized on 09/24/2017 for chest pain, shortness of breath, increased sleepiness, gait unsteadiness and jerky movements of the hands. This consult was requested to evaluate the patient for her increased weakness. ON EXAM: Problems with recent and remote memory, higher cognitive function, language. Significantly swollen LEs. G 5/5 in both UE Poor effort in both LE with G 3/5 in IP and G 4/5 elsewhere. Altered sensations to PP and LT in BLE>BUE Decreased position sense in BLE Global areflexia Asterixis G 2/4 in BUE. IMPRESSION: Generalized weakness due to encephalopathy, neuropathy, swelling, deconditioning. REC: Labs for encephalopathy. EEG PT/OT Observe. Edmond Baez M.D., M.S.P.EDMOND JOHNSON Sep 27, 2017 14:51
[2017-09-27 16:00] VITALS: BP 131/84
[2017-09-27] MEDS ORDERED: Miralax 17gm pkt ORAL PRN (17:15)
[2017-09-27] MEDS ORDERED: HYDROcodone/Acetamin 10/325 tab ORAL PRN (17:15)
[2017-09-27] MEDS ORDERED: Albuterol/Ipratropium 3ml neb HHN PRN (17:15)
--- NOTE | 2017-09-27 17:24 | Cardiology Report ---
APPROVED REPORT EKG Measurement Heart [id number] Sinus rhythm with marked sinus arrhythmia RSR' or QR pattern in V1 suggests right ventricular conduction delay Anterior infarct, age undetermined Abnormal ECG
--- NOTE | 2017-09-27 18:49 | Cardiology Progress Note ---
Assessment/Plan Assessment/Plan 1. Acute on chronic diastolic congestive heart failure, due to medication non- compliance, improving, off ACEI due to creatinine rise, decrease lasix dose, will try ACEI again in the future after renal fxn returns to normal. Will benefit from ENTRESTO in the outpatient setting. 2. Short runs of NSVT, optimize carvedilol. Mg level is normal, has refused carvedilol. 3. Tachycardia-induced cardiomyopathy, improved following cardioversion of atrial flutter, with LVEF up to 45%. 4. Paroxysmal atrial flutter converted to sinus rhythm with electrical DCCV, continue amiodarone and Eliquis. 5. Right heart failure, digoxin and gentle diuresis. 6. HTN, well controlled, continue the current regimen. 7. RACHELLE on CKD, creat up to 1.8. off ACEI, DC IV lasix, start low dose PO lasix. 8. History of COPD. 9. Hx of CVA 10. ALOC, ? hypoventilation given ABG results likely due to narcotic use. Subjective Subjective Appears lethargic, ? pain medication Claims that she has trouble with tolerating carvedilol and another cardiac meds , therefore has been refusing carvedilol. Sinus rhythm at 78. Another short run of NSVT is reported. Objective Last 24 Hour Vital Signs Date Time Temp Pulse Resp B/P (MAP) Pulse Ox O2 Delivery O2 Flow Rate FiO2 09/27/17 16:00 97.6 53 20 131/84 99 Nasal Cannula 2.0 97.6 68 09/27/17 12:00 61 09/27/17 12:00 97.9 68 20 126/74 94 97.9 68 09/27/17 12:00 97.9 68 20 126/74 94 Nasal Cannula 2.0 97.9 68 09/27/17 09:00 76 118/69 09/27/17 08:51 76 09/27/17 08:51 Nasal Cannula 2.0 28 09/27/17 08:50 93 Nasal Cannula 2.0 28 09/27/17 08:49 88 20 Nasal Cannula 2.0 28 09/27/17 08:00 74 09/27/17 08:00 98.0 68 20 131/91 100 Nasal Cannula 2.0 98.0 09/27/17 04:00 97.8 78 20 98/59 93 Nasal Cannula 2.0 97.8 09/27/17 04:00 73 09/27/17 02:25 100.0 09/27/17 01:26 101.8 09/27/17 00:00 101.8 58 18 102/64 93 Nasal Cannula 2.0 101.8 09/27/17 00:00 58 09/26/17 21:12 65 125/76 09/26/17 20:00 63 09/26/17 20:00 97.6 65 20 125/76 95 Nasal Cannula 2.0 97.6 09/26/17 19:30 Nasal Cannula 2.0 28 09/26/17 19:30 80 18 Nasal Cannula 2.0 28 09/26/17 19:30 95 Nasal Cannula 2.0 28 Intake and Output 09/26/17 09/27/17 19:00 07:00 Intake Total 240 ml 100 ml Output Total 300 ml Balance 240 ml -200 ml Intake Oral 240 ml 100 ml Output Urine Total 300 ml 2D Echo: EF 45%,Global LV HK,Sev RA/RV dilation,RVSP 81mmHg,Mild AR/MR,Grade II LVDD Laboratory Tests Test 09/26/17 21:18 09/27/17 07:53 09/27/17 14:51 09/27/17 16:01 Magnesium Level 2.2 MG/DL (1.8-2.4) White Blood Count 11.1 K/UL (4.8-10.8) H Red Blood Count 5.36 M/UL (4.20-5.40) Hemoglobin 13.2 G/DL (12.0-16.0) Hematocrit 44.1 % (37.0-47.0) Mean Corpuscular Volume 82 FL (80-99) Mean Corpuscular Hemoglobin 24.7 PG (27.0-31.0) L Mean Corpuscular Hemoglobin Concent 30.0 G/DL (32.0-36.0) L Red Cell Distribution Width 16.4 % (11.6-14.8) H Platelet Count 268 K/UL (150-450) Mean Platelet Volume 8.2 FL (6.5-10.1) Neutrophils (%) (Auto) 73.9 % (45.0-75.0) Lymphocytes (%) (Auto) 17.1 % (20.0-45.0) L Monocytes (%) (Auto) 7.4 % (1.0-10.0) Eosinophils (%) (Auto) 0.3 % (0.0-3.0) Basophils (%) (Auto) 1.4 % (0.0-2.0) Sodium Level 141 MMOL/L (136-145) Potassium Level 4.1 MMOL/L (3.5-5.1) Chloride Level 103 MMOL/L (98-107) Carbon Dioxide Level 29 MMOL/L (21-32) Anion Gap 10 mmol/L (5-15) Blood Urea Nitrogen 48 mg/dL (7-18) H Creatinine 1.8 MG/DL (0.55-1.30) H Estimat Glomerular Filtration Rate 34.3 mL/min (>60) Glucose Level 107 MG/DL (74-106) H Calcium Level 8.8 MG/DL (8.5-10.1) Total Bilirubin 1.4 MG/DL (0.2-1.0) H Direct Bilirubin 0.5 MG/DL (0.0-0.3) H Aspartate Amino Transf (AST/SGOT) 18 U/L (15-37) Alanine Aminotransferase (ALT/SGPT) 17 U/L (12-78) Alkaline Phosphatase 157 U/L (46-116) H Total Protein 6.8 G/DL (6.4-8.2) Albumin 2.9 G/DL (3.4-5.0) L Globulin 3.9 g/dL Albumin/Globulin Ratio 0.7 (1.0-2.7) L Arterial Blood pH 7.300 (7.350-7.450) Arterial Blood Partial Pressure CO2 64.6 mmHg (35.0-45.0) *H Arterial Blood Partial Pressure O2 78.8 mmHg (75.0-100.0) Arterial Blood HCO3 31.2 mmol/L (22.0-26.0) H Arterial Blood Oxygen Saturation 94.5 % (92.0-98.0) Arterial Blood Base Excess 3.0 Aditya Test Positive Vitamin B12 Level 1451 PG/ML (193-986) H Vitamin D 25-Hydroxy Pending 25-Hydroxy Vitamin D2 Pending 25-Hydroxy Vitamin D3 Pending Folate 13.4 NG/ML (8.6-58.9) Thyroid Stimulating Hormone (TSH) 1.245 uiU/mL (0.358-3.740) Rapid Plasma Reagin Pending Test 09/27/17 18:20 Erythrocyte Sedimentation Rate Pending Hemoglobin A1c Pending Ammonia Pending Objective HEENT: Atraumatic and normocephalic. Anicteric. Pupils are equal, round, and reactive to light and accommodation. Extraocular muscles intact. NECK: JVP is elevated at about 10cm. No carotid bruits. Carotid upstrokes 2+ bilaterally. CARDIOVASCULAR: Normal S1 and S2. Regular rhythm, No murmurs, gallop or rubs. LUNGS: Diminished breath sounds in both bases. ABDOMEN: Distended and nontender. Positive bowel sounds. No hepatosplenomegaly EXTREMITIES: There is 1+ bilateral edema. Justice Erickson MD Sep 27, 2017 18:49
[2017-09-27 20:00] VITALS: BP 130/84
--- NOTE | 2017-09-27 21:11 | Nephrology Progress Note ---
Assessment/Plan Assessment 1. Acute renal failure,. 2. Hypertensive urgency. 3. Rule out diabetic nephropathy. 4. Dyslipidemia. 5. Morbid obesity. Plan plan continue lasix monitoring renal function avoid NSAID replace electrolyte Objective Objective Last 24 Hour Vital Signs Date Time Temp Pulse Resp B/P (MAP) Pulse Ox O2 Delivery O2 Flow Rate FiO2 09/27/17 19:34 90 Nasal Cannula 2.0 28 09/27/17 19:34 Nasal Cannula 2.0 28 09/27/17 19:33 88 20 Nasal Cannula 2.0 28 09/27/17 16:00 97.6 53 20 131/84 99 Nasal Cannula 2.0 97.6 68 09/27/17 12:00 61 09/27/17 12:00 97.9 68 20 126/74 94 97.9 68 09/27/17 12:00 97.9 68 20 126/74 94 Nasal Cannula 2.0 97.9 68 09/27/17 09:00 76 118/69 09/27/17 08:51 76 09/27/17 08:51 Nasal Cannula 2.0 28 09/27/17 08:50 93 Nasal Cannula 2.0 28 09/27/17 08:49 88 20 Nasal Cannula 2.0 28 09/27/17 08:00 74 09/27/17 08:00 98.0 68 20 131/91 100 Nasal Cannula 2.0 98.0 09/27/17 04:00 97.8 78 20 98/59 93 Nasal Cannula 2.0 97.8 09/27/17 04:00 73 09/27/17 02:25 100.0 09/27/17 01:26 101.8 09/27/17 00:00 101.8 58 18 102/64 93 Nasal Cannula 2.0 101.8 09/27/17 00:00 58 09/26/17 21:12 65 125/76 Intake and Output 09/26/17 09/27/17 19:00 07:00 Intake Total 240 ml 100 ml Output Total 300 ml Balance 240 ml -200 ml Intake Oral 240 ml 100 ml Output Urine Total 300 ml Laboratory Tests 09/26/17 21:18: Magnesium Level 2.2 09/27/17 07:53: White Blood Count 11.1H, Red Blood Count 5.36, Hemoglobin 13.2, Hematocrit 44.1 , Mean Corpuscular Volume 82, Mean Corpuscular Hemoglobin 24.7L, Mean Corpuscular Hemoglobin Concent 30.0L, Red Cell Distribution Width 16.4H, Platelet Count 268, Mean Platelet Volume 8.2, Neutrophils (%) (Auto) 73.9, Lymphocytes (%) (Auto) 17.1L, Monocytes (%) (Auto) 7.4, Eosinophils (%) (Auto) 0.3, Basophils (%) (Auto) 1.4, Sodium Level 141, Potassium Level 4.1, Chloride Level 103, Carbon Dioxide Level 29, Anion Gap 10, Blood Urea Nitrogen 48H, Creatinine 1.8H, Estimat Glomerular Filtration Rate 34.3, Glucose Level 107H, Calcium Level 8.8, Total Bilirubin 1.4H, Direct Bilirubin 0.5H, Aspartate Amino Transf (AST/SGOT) 18, Alanine Aminotransferase (ALT/SGPT) 17, Alkaline Phosphatase 157H, Total Protein 6.8, Albumin 2.9L, Globulin 3.9, Albumin/ Globulin Ratio 0.7L 09/27/17 14:51: Arterial Blood pH 7.300L, Arterial Blood Partial Pressure CO2 64.6*H, Arterial Blood Partial Pressure O2 78.8, Arterial Blood HCO3 31.2H, Arterial Blood Oxygen Saturation 94.5, Arterial Blood Base Excess 3.0, Aditya Test Positive 09/27/17 16:01: Vitamin B12 Level 1451H, Vitamin D 25-Hydroxy [Pending], 25-Hydroxy Vitamin D2 [ Pending], 25-Hydroxy Vitamin D3 [Pending], Folate 13.4, Thyroid Stimulating Hormone (TSH) 1.245, Rapid Plasma Reagin [Pending] 09/27/17 18:20: Erythrocyte Sedimentation Rate 2, Hemoglobin A1c 7.4H, Ammonia 75H Height (Feet): 5 Height (Inches): 3.00 Weight (Pounds): 288 Objective HEAD AND NECK: No JVP. No LAD. No thyromegaly. Extraocular movements intact. Pupils are reactive to light and accommodation. LUNGS: Decreased breathing sound on the both sides. CARDIAC: Regular rate and rhythm. S1 and S2. No murmur. No rub. ABDOMEN: Obese, nontender, and not distended. No organomegaly. EXTREMITIES: There is 3+ edema. No clubbing. No cyanosis. NEUROLOGIC: Cranial nerves II through XII within normal limits. Upper and lower extremities are grossly intact. Bahmani,Marzena MD Sep 27, 2017 21:11
--- NOTE | 2017-09-27 23:30 | Consultation ---
DATE OF CONSULTATION: 09/27/2017 NEUROLOGY CONSULTATION CONSULTING PHYSICIAN: Ramana Baez M.D. REQUESTING PHYSICIAN: Pedro Benjamin D.O. HISTORY: Ms Lili Alcantar is a 67-year-old, right-handed, black lady, who does have a past history of hypertension, diabetes mellitus, dyslipidemia, congestive heart failure, cardiac arrhythmias, chronic obstructive pulmonary disease associated a with long history of smoking, morbid obesity, liberal alcohol use in the past, diabetic neuropathy, and progressive gait problems. She was hospitalized on 09/24/2017 for chest pain, shortness of breath, increased sleepiness, gait unsteadiness, and jerky movements of the hands. Her condition has worsened with regards to weakness while she has been hospitalized and thus, this consultation was requested. The patient, at this point in time, is not able to mentate in a normal fashion and was unable to give me any further history. PAST MEDICAL HISTORY: Significant for hypertension, diabetes mellitus, dyslipidemia, congestive heart failure, cardiac arrhythmia, chronic obstructive pulmonary disease, morbid obesity, diabetic neuropathy, and progressive gait problems. FAMILY HISTORY: Significant for high blood pressure and diabetes mellitus in other family members. PERSONAL HISTORY: Home: She lives with her daughter and granddaughter. 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 Habits: She smoked for approximately 40 years in the past. She stopped smoking a few years ago. She used to consume at least one or two fifths of alcohol every week until a few months ago. Her alcohol of choice was tanesha. She denies use of any illicit drugs. PRESENT MEDICATIONS: Include carvedilol, Lasix, Januvia, digoxin, insulin, Eliquis, clonidine, Neurontin, sildenafil, [place], Restoril, Zofran, MiraLax, Tylenol, and DuoNeb. PHYSICAL EXAMINATION: GENERAL: She is a well-developed, well-nourished, morbidly obese, black lady, lying in bed, in no acute distress. VITAL SIGNS: Pulse 68/minute, blood pressure 126/74 mmHg, respirations 20/minute, temperature 97.9 degrees Fahrenheit. HEAD: Normocephalic and atraumatic. EENT: Examination benign. NECK: No neck rigidity was observed. NEUROLOGICAL EXAMINATION: MENTAL STATUS EXAMINATION: She was awake, but not completely alert. She was oriented to person, place, and time with minimal hints. She was able to recall 3/3 words immediately, but could only remember 2/3 words in 1 minute and 3 minutes on the first trial. On the second trial, she was able to remember all 3 words in 1 minute and 3 minutes. She was able to remember presidents, Trump and Obama, but could not remember presidents prior to that. Her mathematical skills were minimally impaired. Her visuospatial function was relatively good. SPEECH: She had a mild dysarthria. LANGUAGE: She had anomia for low and mid frequency words. CRANIAL NERVE EXAMINATION: II: The visual li were intact on confrontation testing. III, IV & : External ocular movements are full and the pupils 3 mm in diameter, equal, round, regular, and reactive to light. V: She had normal facial sensations, and the temporales, masseters, and pterygoids functioned normally. VII: She had a trace right VII central facial paresis. VIII: She was able to hear well bilaterally and had no nystagmus. IX: The palate moved symmetrically on phonation. X: She had no hoarseness of voice. XI: The sternocleidomastoids and trapezii functioned normally. XII: The tongue was in the midline without any fasciculations or atrophy. MOTOR SYSTEM: The tone was normal in all four extremities. Examination of muscle mass revealed no focal wasting. Examination of power was exceedingly difficult to perform because of varying degrees of effort. She, however, had approximately G 5/5 power in both upper extremities. In the lower extremities, the effort was quite poor and she had approximately G 4/5 except for G 3/5 in the iliopsoas muscles bilaterally. SENSORY EXAMINATION: She had altered sensations to pinprick and light touch with the lower extremities being more altered than the upper extremities. Position sense was significantly diminished in the toes bilaterally, but was normal in the fingers bilaterally. Graphesthesia was abnormal bilaterally. It should be noted that the limbs were quite swollen, especially the lower extremities. REFLEXES: 0 at the biceps, triceps, brachioradialis, knees, and ankles. The plantar responses were flexor bilaterally. COORDINATION: She performed well on [id number] testing. She was unable to perform [id number] testing. STANCE & GAIT: Could not be tested. Asterixis: G 2/4 in both upper extremities. DIAGNOSTIC IMPRESSION: 1. Ms Lili Alcantar is a 67-year-old, right-handed, black lady, who does have a past history of hypertension, diabetes mellitus, dyslipidemia, congestive heart failure, cardiac arrhythmia, chronic obstructive pulmonary disease, obesity, diabetic neuropathy, tobacco abuse, alcohol abuse, and progressive gait problems, who was hospitalized on 09/24/2017 for chest pain, shortness of breath, increased weakness, gait unsteadiness, and jerking movements in her hands. All these problems have stayed with her and she has been getting progressively weak in the hospital. 2. On neurological examination, at this time, she does demonstrate problems with orientation, recent and remote memory, visuospatial function, higher cognitive function, and language. She also has significant lower extremity swelling, weakness in the proximal more than distal lower extremities, altered sensations to pinprick and light touch involving the lower extremities more than upper extremities, decreased position sense in the toes bilaterally, agraphesthesia, global areflexia, and bilateral upper extremity asterixis. 3. Laboratory data obtained thus far have revealed that her WBC count is elevated to 11,100. Her chemistry panel has revealed that her BUN is 48 with a creatinine of 1.8. Her blood glucoses are running high and the albumin is running low at 2.9. 4. The patient's history and neurological examination are most compatible with generalized weakness due to a combination of an ongoing encephalopathic process, neuropathic process, possible compression neuropathy related to her significant swelling, and in addition, deconditioning. 5. The patient's encephalopathy is unexplained at this point in time, but it is associated with asterixis and could be due to metabolic dysfunction either a blood gas abnormality or hepatic dysfunction. In addition, the renal dysfunction could also be contributing to it. RECOMMENDATIONS: 1. Agree with management thus far. 2. The patient will be worked up thoroughly for treatable causes of encephalopathy. 3. An EEG will be ordered to evaluate the patient for the degree and type of encephalopathy. 4. Physical and occupational therapy should be started to mobilize the patient rapidly. 5. The patient will be observed closely and depending on how she fares over the next day or so, further recommendations will be given. Thank you for entrusting me with the care of Ms. Alcantar. I shall follow her with you. Ramana Baez M.D., M.S.P.H. DR: Brennan JOB#: [id number] MTDD
[2017-09-28] VITALS (7 sets, daily range): BP systolic 112–135; BP diastolic 70–86
--- NOTE | 2017-09-28 | Consultation ---
DATE OF CONSULTATION: 09/24/2017 CARDIOLOGY CONSULTATION CONSULTING PHYSICIAN: Justice Erickson M.D. REFERRING PHYSICIAN: Pedro Benjamin D.O. REASON FOR CONSULTATION: Management of shortness of breath. HISTORY OF PRESENT ILLNESS: The patient is a very unfortunate 67-year-old female, known to me from recent admission to this facility, who presents with complaints of chest pain and shortness of breath that started on 09/23/2017. The patient states that she had worsening of bilateral lower edema, three to four pillow orthopnea, as well as paroxysmal nocturnal dyspnea. Her cardiac history is significant for history of atrial flutter, which was converted to sinus rhythm on her July 2017 admission with electrical DC cardioversion after RAMIRO revealed no atrial appendage thrombus. She was placed on amiodarone 200 mg daily basis and continued Eliquis in the hospital. A 2D echocardiography at that time revealed the right heart failure. The patient also reveals hypertensive heart disease with 2D echocardiography revealing severe RV dilatation, right ventricular systolic pressure of approximately 65 mmHg, global left ventricular hypokinesia with left ventricular ejection fraction approximately 30%. Upon admission, it was found that the patient was not on carvedilol or Eliquis or amiodarone. Upon arrival to the emergency department, blood pressure was 172/107 mmHg and heart rate of 88. She was in sinus rhythm at rate of 77. PAST MEDICAL HISTORY: As mentioned above: 1. History of paroxysmal atrial flutter, status post successful electrical cardioversion to sinus rhythm in July 2017. 2. History of right heart failure with anasarca. 3. Severe pulmonary hypertension with RVSP of approximately 65 mmHg. 4. History of diabetes mellitus. 5. History of congestive heart failure with left ventricular ejection fraction of approximately 30%. 6. History of COPD. 7. History of polysubstance abuse in the past. 8. History of neuropathy. 9. History of CVA. PAST SURGICAL HISTORY: Status post RAMIRO and cardioversion and history of pelvic mass removal. MEDICATIONS: List of medications are Lipitor 20 mg p.o. daily, Lasix 40 mg p.o. twice daily, gabapentin 300 mg twice daily, hydrocortisone 1% , hydrocodone and acetaminophen 10/325 mg one tablet q.4 h. p.r.n. pain, hydrocortisone +1% cream, losartan 50 mg p.o. daily, metformin 1000 mg p.o. twice daily, omeprazole 20 mg p.o. daily, sildenafil 20 mg p.o. three times a day, and Januvia 50 mg p.o. daily. ALLERGIES: To aspirin and penicillin. SOCIAL HISTORY: Prior history of drug use. Quit tobacco. Denies any alcohol use. FAMILY HISTORY: No premature coronary artery disease in first-degree relatives. PHYSICAL EXAMINATION: VITAL SIGNS: Blood pressure was 172/107, heart rate of 88, respirations of 20, and O2 saturation of 99% on room air. GENERAL: The patient is a very unfortunate 67-year-old female, who is seen in Cardiology consultation at the request of Dr. Benjamin. The patient does not appear to be in respiratory distress. HEENT: Atraumatic and normocephalic. Anicteric. Pupils are equal, round, and reactive to light and accommodation. Extraocular muscles intact. NECK: JVP is elevated about 15 cm. No carotid bruit. CVS: Normal S1 and S2. Regular rate and rhythm. A 2/6 holosystolic murmur at the left sternal border. PMI is at fourth intercostal space at the midclavicular line. LUNGS: Diminished breath sounds in both lungs. ABDOMEN: Soft, nontender, and nondistended. No hepatosplenomegaly. Positive bowel sounds. EXTREMITIES: There is 1+ bilateral lower extremity edema. LABORATORY AND DIAGNOSTIC DATA: Chest x-ray shows cardiomegaly, interstitial prominence and vascular prominence on both sides consistent with congestive heart failure. Laboratory findings, WBC 8.4, hemoglobin 13.5, hematocrit 45.9, and platelet count 276,000. Sodium was 143, potassium is 4.0, chloride 107, bicarbonate 30, BUN of 18, creatinine 1.0, glucose is 147, and calcium is 9.1. Total bilirubin 1.3. Troponin I was 0.026. ProBNP was 1697. ASSESSMENT AND PLAN: The patient is a very unfortunate 67-year-old female, seen in Cardiology consultation at the request of Dr. Benjamin. 1. Acute on chronic diastolic and systolic heart failure, most likely due to medication noncompliance. The patient will be started on carvedilol. We will continue with furosemide. The patient will also be placed on digoxin. 2. Right heart failure with anasarca better than the first admission. 3. Tachycardia induced cardiomyopathy, which improved after cardioversion as 2D echocardiography shows improvement of left ventricular systolic function from 30% to 45% to 50%. 4. Paroxysmal atrial flutter, status post successful cardioversion of atrial flutter to sinus rhythm. The patient was not on amiodarone. We will resume amiodarone and restart Eliquis. 5. History of hypertension. 6. History of acute kidney injury on chronic kidney disease. 7. History of chronic obstructive pulmonary disease. 8. History of polysubstance abuse. 9. History of cerebrovascular accident. We will optimize heart failure regimen on this patient. The patient requires tight Cardiology outpatient followup as there is a component of noncompliance. I would like to thank, Dr. Benjamin, for the courtesy of this consultation. Justice Erickson M.D. DR: Sally JOB#: [id number] CC:
[2017-09-28] MEDS: NovoLOG Insulin Flexpen SUBQ SCH ×4 (05:47→21:00)
[2017-09-28 07:52] LABS: BASOPHILS % (AUTO) 2.1 % (0.0-2.0); EOSINOPHILS % (AUTO) 0.6 % (0.0-3.0); HEMATOCRIT 46.3 % (37.0-47.0); HEMOGLOBIN 13.2 G/DL (12.0-16.0); LYMPHOCYTES % (AUTO) 17.4 % (20.0-45.0); MEAN CORPUSCULAR VOLUME 82 FL (80-99); MONOCYTES % (AUTO) 7.6 % (1.0-10.0); NEUTROPHILS % (AUTO) 72.4 % (45.0-75.0); PLATELET COUNT 229 K/UL (150-450); RED BLOOD COUNT 5.62 M/UL (4.20-5.40); RED CELL DISTRIBUTION WIDTH 16.7 % (11.6-14.8); WHITE BLOOD COUNT 9.8 K/UL (4.8-10.8)
[2017-09-28 08:37] LABS: ANION GAP 4 mmol/L (5-15); BLOOD UREA NITROGEN 50 mg/dL (7-18); CALCIUM 9.3 MG/DL (8.5-10.1); CARBON DIOXIDE 33 MMOL/L (21-32); CHLORIDE 102 MMOL/L (98-107); CREATININE 1.5 MG/DL (0.55-1.30); POTASSIUM 4.5 MMOL/L (3.5-5.1); SODIUM 139 MMOL/L (136-145)
[2017-09-28] MEDS: sitaGLIPtin 25mg tab ORAL SCH (09:25)
[2017-09-28] MEDS: Digoxin 0.125mg tab ORAL SCH (09:26)
[2017-09-28] MEDS: Carvedilol 6.25mg Tab ORAL SCH ×2 (09:26→20:59)
[2017-09-28] MEDS: Revatio 20mg tab ORAL SCH ×3 (09:26→17:13)
[2017-09-28] MEDS: Eliquis 2.5mg tablet ORAL SCH ×2 (09:27→20:58)
--- NOTE | 2017-09-28 09:51 | Neurology Progress Note ---
Interim History Interim History Interim History Ms. Alcantar feels a little better. The mind is still not completely clear. The legs are still weak. She also has a lot of pain in her feet today. She has been unable to get out of bed. She has not noticed any new neurologic problems. Review of Systems Neuro Review of Systems Benign. Objective Physical Exam Last Vital Signs Date Time Temp Pulse Resp B/P (MAP) Pulse Ox O2 Delivery O2 Flow Rate FiO2 09/28/17 09:26 76 09/28/17 09:26 113/73 09/28/17 08:32 18 Nasal Cannula 2.0 28 09/28/17 08:32 93 09/28/17 08:00 97.8 97.8 Laboratory Tests Test 09/27/17 14:51 09/27/17 16:01 09/27/17 18:20 09/28/17 06:00 Arterial Blood pH 7.300 (7.350-7.450) Arterial Blood Partial Pressure CO2 64.6 mmHg (35.0-45.0) *H Arterial Blood Partial Pressure O2 78.8 mmHg (75.0-100.0) Arterial Blood HCO3 31.2 mmol/L (22.0-26.0) H Arterial Blood Oxygen Saturation 94.5 % (92.0-98.0) Arterial Blood Base Excess 3.0 Aditya Test Positive Vitamin B12 Level 1451 PG/ML (193-986) H Vitamin D 25-Hydroxy Pending 25-Hydroxy Vitamin D2 Pending 25-Hydroxy Vitamin D3 Pending Folate 13.4 NG/ML (8.6-58.9) Thyroid Stimulating Hormone (TSH) 1.245 uiU/mL (0.358-3.740) Rapid Plasma Reagin Pending Erythrocyte Sedimentation Rate 2 MM/HR (0-30) Hemoglobin A1c 7.4 % (4.3-6.0) H Ammonia 75 umol/L (11-32) H White Blood Count 9.8 K/UL (4.8-10.8) Red Blood Count 5.62 M/UL (4.20-5.40) H Hemoglobin 13.2 G/DL (12.0-16.0) Hematocrit 46.3 % (37.0-47.0) Mean Corpuscular Volume 82 FL (80-99) Mean Corpuscular Hemoglobin 23.5 PG (27.0-31.0) L Mean Corpuscular Hemoglobin Concent 28.5 G/DL (32.0-36.0) L Red Cell Distribution Width 16.7 % (11.6-14.8) H Platelet Count 229 K/UL (150-450) Mean Platelet Volume 7.6 FL (6.5-10.1) Neutrophils (%) (Auto) 72.4 % (45.0-75.0) Lymphocytes (%) (Auto) 17.4 % (20.0-45.0) L Monocytes (%) (Auto) 7.6 % (1.0-10.0) Eosinophils (%) (Auto) 0.6 % (0.0-3.0) Basophils (%) (Auto) 2.1 % (0.0-2.0) H Sodium Level 139 MMOL/L (136-145) Potassium Level 4.5 MMOL/L (3.5-5.1) Chloride Level 102 MMOL/L (98-107) Carbon Dioxide Level 33 MMOL/L (21-32) H Anion Gap 4 mmol/L (5-15) L Blood Urea Nitrogen 50 mg/dL (7-18) H Creatinine 1.5 MG/DL (0.55-1.30) H Estimat Glomerular Filtration Rate 42.3 mL/min (>60) Glucose Level 104 MG/DL (74-106) Calcium Level 9.3 MG/DL (8.5-10.1) Neurologic Exam Objective PHYSICAL EXAMINATION: GENERAL: She is a well-developed, well-nourished, morbidly obese, black lady, lying in bed, in no acute distress. HEAD: Normocephalic and atraumatic. EENT: Examination benign. NECK: No neck rigidity was observed. NEUROLOGICAL EXAMINATION: MENTAL STATUS EXAMINATION: She was awake, but not completely alert. She was oriented to person, place, and time. She was able to recall 3/3 words immediately, but could only remember 2/3 words in 1 minute and 3 minutes. She was able to remember presidents, Trump through Carmen Pako, but could not remember presidents prior to that. Her mathematical skills were minimally impaired. Her visuospatial function was relatively good. SPEECH: She had a mild dysarthria. LANGUAGE: She had anomia for low and mid frequency words. CRANIAL NERVE EXAMINATION: II: The visual li were intact on confrontation testing. III, IV & : External ocular movements are full and the pupils 3 mm in diameter, equal, round, regular, and reactive to light. V: She had normal facial sensations, and the temporales, masseters, and pterygoids functioned normally. VII: She had a trace right VII central facial paresis. VIII: She was able to hear well bilaterally and had no nystagmus. IX: The palate moved symmetrically on phonation. X: She had no hoarseness of voice. XI: The sternocleidomastoids and trapezii functioned normally. XII: The tongue was in the midline without any fasciculations or atrophy. MOTOR SYSTEM: The tone was normal in all four extremities. Examination of muscle mass revealed no focal wasting. Examination of power was exceedingly difficult to perform because of varying degrees of effort. She, however, had approximately G 5/5 power in both upper extremities. In the lower extremities, the effort was quite poor and she had approximately G 4/5 except for G 3/5 in the iliopsoas muscles bilaterally. SENSORY EXAMINATION: She had altered sensations to pinprick and light touch with the lower extremities being more altered than the upper extremities. Position sense was significantly diminished in the toes bilaterally, but was normal in the fingers bilaterally. Graphesthesia was normal bilaterally. REFLEXES: 0 at the biceps, triceps, brachioradialis, knees, and ankles. The plantar responses were flexor bilaterally. COORDINATION: She performed well on [id number] testing. She was unable to perform [id number] testing. STANCE & GAIT: Could not be tested. Asterixis: G 1/4 in both upper extremities. Impression/Recommendations Diagnostic Impression 1. Ms Lili Alcantar is a 67-year-old, right-handed, black lady, who does have a past history of hypertension, diabetes mellitus, dyslipidemia, congestive heart failure, cardiac arrhythmia, chronic obstructive pulmonary disease, obesity, diabetic neuropathy, tobacco abuse, alcohol abuse, and progressive gait problems, who was hospitalized on 09/24/2017 for chest pain, shortness of breath, increased weakness, gait unsteadiness, and jerking movements in her hands. All these problems have stayed with her and she has been getting progressively weak in the hospital. 2. She feels a little better. The mind is still not completely clear. The legs are still weak. She also has a lot of pain in her feet today. She has been unable to get out of bed. She has not noticed any new neurologic problems. 3. On neurological examination, at this time, she does demonstrate problems with recent and remote memory, visuospatial function, higher cognitive function , and language. She also has significant lower extremity swelling, weakness in the proximal more than distal lower extremities, altered sensations to pinprick and light touch involving the lower extremities more than upper extremities, decreased position sense in the toes bilaterally, global areflexia, and bilateral upper extremity asterixis. 4. Laboratory data on my initial evaluation revealed that her WBC count was elevated to 11,100. Her chemistry panel revealed that her BUN was 48 with a creatinine of 1.8. Her blood glucoses were running high and the albumin was low at 2.9. 5. Further laboratory test have revealed that she has an elevated pCO2 at 65, elevated ammonia at 75 and elevated HB A1c at 7.4% 6. The patient's history and neurological examination are most compatible with generalized weakness due to a combination of an ongoing encephalopathic process , neuropathic process, possible compression neuropathy related to her significant swelling, and in addition, deconditioning. 7. The patient's encephalopathy is due to hypercarbia, hyperammonemia and deteriorating renal function. Recommendations 1. Continue present management. 2. Correct hypercarbia. 3. Correct hyperammonemia. 4. Await EEG to evaluate the patient for the degree and type of encephalopathy. 5. Mobilize with physical and occupational therapy. 6. Observe closely. Edmond Baez M.D., M.S.P.EDMOND JOHNSON Sep 28, 2017 09:51
[2017-09-28] MEDS: Lactulose 20gm/30ml UDC ORAL SCH ×3 (12:10→14:36)
--- NOTE | 2017-09-28 12:27 | Infectious Diseases Prog Note ---
Assessment/Plan Assessment/Plan Abx: None Assessment: Fever 09/27- ?source- r/o bacteremia- repeat CXR no infiltrates, no UTI symptoms -CXR 09/28: Possible mild interstitial congestion, unchanged over 3 days -V. duplex no DVT b/l LE Acute on chronic CHF exacerbation RACHELLE, improving Mild leukocytosis-; resolved no obvious infectious process; suspect reactive to above -CXR: Mild CHF suspected. No significant change -afebrile L anterior leg chronic ulcer, no signs of infection hypertension morbid obesity Dm2 c/w neuropathy Afib HLD tobacco abuse chronic lower extremity ulceration CAD COPD pulmonary hypertension Plan: -Continue to monitor off abx unless recurrent febrile, leukocytosis and /or HD unstrable -BCx x2 -f/u cx -Monitor CBC/BMP, temperatures -aspiration precautions -Cards, renal f/u -wound care/protocol per hospital protocol Thank you for this consultation. Will continue to follow along with you. Discussed with RN. Subjective Allergies: Coded Allergies: ASPIRIN (Verified Allergy, Intermediate, Hives, 01/06/13) PENICILLINS (Verified Allergy, Intermediate, Hives, 01/06/13) Subjective febrile to 101.5, now afebrile in >24hrs leukocytosis resolved at 2L NC Objective Vital Signs Last 24 Hour Vital Signs Date Time Temp Pulse Resp B/P (MAP) Pulse Ox O2 Delivery O2 Flow Rate FiO2 09/28/17 09:26 76 09/28/17 09:26 76 113/73 09/28/17 08:32 76 18 Nasal Cannula 2.0 28 09/28/17 08:32 Nasal Cannula 2.0 28 09/28/17 08:32 93 Nasal Cannula 2.0 28 09/28/17 08:00 97.8 75 20 113/73 94 97.8 09/28/17 05:16 94 09/28/17 04:00 98.0 60 18 128/80 99 Nasal Cannula 2.0 98.0 68 09/28/17 03:24 95 09/28/17 02:00 96.8 60 20 130/84 99 Nasal Cannula 2.0 96.8 68 09/28/17 01:00 95 09/28/17 00:00 97.9 66 20 135/86 99 Nasal Cannula 2.0 97.9 68 09/27/17 23:00 94 09/27/17 21:00 54 127/51 09/27/17 20:00 97.8 62 20 130/84 99 Nasal Cannula 2.0 97.8 68 09/27/17 19:34 90 Nasal Cannula 2.0 28 09/27/17 19:34 Nasal Cannula 2.0 28 09/27/17 19:33 88 20 Nasal Cannula 2.0 28 09/27/17 16:00 97.6 53 20 131/84 99 Nasal Cannula 2.0 97.6 68 Height (Feet): 5 Height (Inches): 3.00 Weight (Pounds): 294 Objective HEAD AND NECK: No JVP. No LAD. No thyromegaly. Extraocular movements intact. Pupils are reactive to light and accommodation. LUNGS: Decreased breathing sound on the both sides. CARDIAC: Regular rate and rhythm. S1 and S2. No murmur. No rub. ABDOMEN: Obese, nontender, and not distended. No organomegaly. EXTREMITIES: There is 3+ edema. No clubbing. No cyanosis. NEUROLOGIC: Cranial nerves II through XII within normal limits. Upper and lower extremities are grossly intact. Laboratory Tests Test 09/27/17 14:51 09/27/17 16:01 09/27/17 18:20 09/28/17 06:00 Arterial Blood pH 7.300 (7.350-7.450) Arterial Blood Partial Pressure CO2 64.6 mmHg (35.0-45.0) *H Arterial Blood Partial Pressure O2 78.8 mmHg (75.0-100.0) Arterial Blood HCO3 31.2 mmol/L (22.0-26.0) H Arterial Blood Oxygen Saturation 94.5 % (92.0-98.0) Arterial Blood Base Excess 3.0 Aditya Test Positive Vitamin B12 Level 1451 PG/ML (193-986) H Vitamin D 25-Hydroxy Pending 25-Hydroxy Vitamin D2 Pending 25-Hydroxy Vitamin D3 Pending Folate 13.4 NG/ML (8.6-58.9) Thyroid Stimulating Hormone (TSH) 1.245 uiU/mL (0.358-3.740) Rapid Plasma Reagin Pending Erythrocyte Sedimentation Rate 2 MM/HR (0-30) Hemoglobin A1c 7.4 % (4.3-6.0) H Ammonia 75 umol/L (11-32) H White Blood Count 9.8 K/UL (4.8-10.8) Red Blood Count 5.62 M/UL (4.20-5.40) H Hemoglobin 13.2 G/DL (12.0-16.0) Hematocrit 46.3 % (37.0-47.0) Mean Corpuscular Volume 82 FL (80-99) Mean Corpuscular Hemoglobin 23.5 PG (27.0-31.0) L Mean Corpuscular Hemoglobin Concent 28.5 G/DL (32.0-36.0) L Red Cell Distribution Width 16.7 % (11.6-14.8) H Platelet Count 229 K/UL (150-450) Mean Platelet Volume 7.6 FL (6.5-10.1) Neutrophils (%) (Auto) 72.4 % (45.0-75.0) Lymphocytes (%) (Auto) 17.4 % (20.0-45.0) L Monocytes (%) (Auto) 7.6 % (1.0-10.0) Eosinophils (%) (Auto) 0.6 % (0.0-3.0) Basophils (%) (Auto) 2.1 % (0.0-2.0) H Sodium Level 139 MMOL/L (136-145) Potassium Level 4.5 MMOL/L (3.5-5.1) Chloride Level 102 MMOL/L (98-107) Carbon Dioxide Level 33 MMOL/L (21-32) H Anion Gap 4 mmol/L (5-15) L Blood Urea Nitrogen 50 mg/dL (7-18) H Creatinine 1.5 MG/DL (0.55-1.30) H Estimat Glomerular Filtration Rate 42.3 mL/min (>60) Glucose Level 104 MG/DL (74-106) Calcium Level 9.3 MG/DL (8.5-10.1) Current Medications Medications (Trade) Dose Ordered Sig/Toya Route PRN Reason Start Time Stop Time Status Last Admin Dose Admin Acetaminophen (Tylenol) 650 mg Q4H PRN ORAL Fever (temp>100.5F) 09/27/17 17:15 10/24/17 17:14 Acetaminophen/ Hydrocodone Bitart ([place] 10/325) 1 tab Q4H PRN ORAL For Pain 09/27/17 17:15 10/01/17 17:14 Albuterol/ Ipratropium (Albuterol/ Ipratropium) 3 ml Q4H PRN HHN Shortness of Breath 09/27/17 17:15 09/29/17 17:14 Apixaban (Eliquis) 5 mg Q12HR ORAL 09/27/17 21:00 10/24/17 20:59 09/28/17 09:27 Carvedilol (Coreg) 12.5 mg EVERY 12 HOURS ORAL 09/27/17 21:00 10/26/17 08:59 09/28/17 09:26 Clonidine HCl (Catapres Tab) 0.1 mg TIDPRN PRN ORAL for SBP >160 mmHg 09/27/17 21:00 10/24/17 20:59 Dextrose (Dextrose 50%) 25 ml STAT PRN IV Hypoglycemia 09/27/17 17:15 10/24/17 17:14 Dextrose (Dextrose 50%) 50 ml STAT PRN IV Hypoglycemia 09/27/17 17:30 10/24/17 17:14 Digoxin (Lanoxin) 0.125 mg DAILY ORAL 09/28/17 09:00 10/25/17 08:59 09/28/17 09:26 Furosemide (Lasix) 20 mg DAILY ORAL 09/28/17 09:00 10/28/17 08:59 09/28/17 09:25 Gabapentin (Neurontin) 300 mg BID ORAL 09/27/17 18:00 10/24/17 17:59 09/28/17 09:26 Insulin Aspart (NovoLOG) BEFORE MEALS AND HS SUBQ 09/27/17 21:00 10/24/17 20:59 09/28/17 12:07 Lactulose (Cephulac) 30 gm Q2H ORAL 09/28/17 10:30 09/28/17 14:31 09/28/17 12:10 Ondansetron HCl (Zofran) 4 mg Q6H PRN IVP Nausea & Vomiting 09/27/17 17:15 10/24/17 17:14 Polyethylene Glycol (Miralax) 17 gm DAILYPRN PRN ORAL Constipation 09/27/17 17:15 10/24/17 17:14 Sildenafil Citrate (Revatio) 20 mg TID ORAL 09/27/17 18:00 10/24/17 17:59 09/28/17 09:26 Sitagliptin Phosphate (Januvia) 25 mg DAILY ORAL 09/28/17 09:00 10/25/17 08:59 09/28/17 09:25 Temazepam (Restoril) 15 mg HSPRN PRN ORAL Insomnia 09/27/17 17:15 10/01/17 17:14 Kavya Brandt M.D. Sep 28, 2017 12:27
--- NOTE | 2017-09-28 12:30 | General Progress Note ---
Assessment/Plan Problem List: (1) Edema ICD Codes: R60.9 - Edema, unspecified SNOMED: 198144847 (2) Acute bronchitis (3) ARF (acute renal failure) ICD Codes: N17.9 - Acute kidney failure, unspecified SNOMED: 45150752 (4) ACS (acute coronary syndrome) ICD Codes: I24.9 - Acute ischemic heart disease, unspecified SNOMED: 131337733 (5) Acute chest pain ICD Codes: R07.9 - Acute chest pain SNOMED: 025252963 (6) HTN (hypertension) ICD Codes: I10 - HTN (hypertension) SNOMED: 83116625 (7) DM (diabetes mellitus) ICD Codes: E11.9 - DM (diabetes mellitus) SNOMED: 64274043 (8) CHF (congestive heart failure) ICD Codes: I50.9 - Heart failure, unspecified SNOMED: 66172342 Status: unchanged Assessment/Plan o2 pulm tx abx ot pt diet cbc bmp am brotman aru eval Subjective Constitutional: Reports: weakness Respiratory: Reports: shortness of breath Allergies: Coded Allergies: ASPIRIN (Verified Allergy, Intermediate, Hives, 01/06/13) PENICILLINS (Verified Allergy, Intermediate, Hives, 01/06/13) All Systems: reviewed and negative except above Subjective o2nc sl sob Objective Last 24 Hour Vital Signs Date Time Temp Pulse Resp B/P (MAP) Pulse Ox O2 Delivery O2 Flow Rate FiO2 09/28/17 09:26 76 09/28/17 09:26 76 113/73 09/28/17 08:32 76 18 Nasal Cannula 2.0 28 09/28/17 08:32 Nasal Cannula 2.0 28 09/28/17 08:32 93 Nasal Cannula 2.0 28 09/28/17 08:00 97.8 75 20 113/73 94 97.8 09/28/17 05:16 94 09/28/17 04:00 98.0 60 18 128/80 99 Nasal Cannula 2.0 98.0 68 09/28/17 03:24 95 09/28/17 02:00 96.8 60 20 130/84 99 Nasal Cannula 2.0 96.8 68 09/28/17 01:00 95 09/28/17 00:00 97.9 66 20 135/86 99 Nasal Cannula 2.0 97.9 68 09/27/17 23:00 94 09/27/17 21:00 54 127/51 09/27/17 20:00 97.8 62 20 130/84 99 Nasal Cannula 2.0 97.8 68 09/27/17 19:34 90 Nasal Cannula 2.0 28 09/27/17 19:34 Nasal Cannula 2.0 28 09/27/17 19:33 88 20 Nasal Cannula 2.0 28 09/27/17 16:00 97.6 53 20 131/84 99 Nasal Cannula 2.0 97.6 68 Intake and Output 09/27/17 09/28/17 19:00 07:00 Intake Total 840 ml 200 ml Output Total 701 ml Balance 840 ml -501 ml Intake Oral 840 ml 200 ml Output Urine Total 700 ml Stool Total 1 ml # Voids 4 Laboratory Tests 09/27/17 14:51: Arterial Blood pH 7.300L, Arterial Blood Partial Pressure CO2 64.6*H, Arterial Blood Partial Pressure O2 78.8, Arterial Blood HCO3 31.2H, Arterial Blood Oxygen Saturation 94.5, Arterial Blood Base Excess 3.0, Aditya Test Positive 09/27/17 16:01: Vitamin B12 Level 1451H, Vitamin D 25-Hydroxy [Pending], 25-Hydroxy Vitamin D2 [ Pending], 25-Hydroxy Vitamin D3 [Pending], Folate 13.4, Thyroid Stimulating Hormone (TSH) 1.245, Rapid Plasma Reagin [Pending] 09/27/17 18:20: Erythrocyte Sedimentation Rate 2, Hemoglobin A1c 7.4H, Ammonia 75H 09/28/17 06:00: White Blood Count 9.8, Red Blood Count 5.62H, Hemoglobin 13.2, Hematocrit 46.3, Mean Corpuscular Volume 82, Mean Corpuscular Hemoglobin 23.5L, Mean Corpuscular Hemoglobin Concent 28.5L, Red Cell Distribution Width 16.7H, Platelet Count 229 , Mean Platelet Volume 7.6, Neutrophils (%) (Auto) 72.4, Lymphocytes (%) (Auto) 17.4L, Monocytes (%) (Auto) 7.6, Eosinophils (%) (Auto) 0.6, Basophils (%) (Auto ) 2.1H, Sodium Level 139, Potassium Level 4.5, Chloride Level 102, Carbon Dioxide Level 33H, Anion Gap 4L, Blood Urea Nitrogen 50H, Creatinine 1.5H, Estimat Glomerular Filtration Rate 42.3, Glucose Level 104, Calcium Level 9.3 Height (Feet): 5 Height (Inches): 3.00 Weight (Pounds): 294 General Appearance: lethargic EENT: normal ENT inspection Neck: normal alignment Cardiovascular: normal peripheral pulses, normal rate, regular rhythm Respiratory/Chest: chest wall non-tender, decreased breath sounds Abdomen: normal bowel sounds, non tender, soft Extremities: normal inspection Edema: 1+ Arm (L), 1+ Arm (R), 1+ Leg (L), 1+ Leg (R), 1+ Pedal (L), 1+ Pedal ( R), 1+ Generalized Edema: trace edema Neurologic: motor weakness Skin: normal pigmentation, warm/dry Pedro Benjamin DO Sep 28, 2017 12:30
--- NOTE | 2017-09-28 15:23 | Diagnostic Imaging Report ---
Indication: Chest pain Technique: One view of the chest Comparison: 09/25/2017 Findings: Patient is rotated to the right. The heart is enlarged. There is mild interstitial prominence which appears similar to the previous exam Impression: Possible mild interstitial congestion, unchanged over 3 days
--- NOTE | 2017-09-28 15:44 | Pulmonology Progress Note ---
Assessment/Plan Problems: (1) ARF (acute renal failure) (2) Fever (3) ACS (acute coronary syndrome) (4) Pulmonary edema (5) Pulmonary hypertension (6) COPD (chronic obstructive pulmonary disease) (7) Tobacco user (8) DM (diabetes mellitus) (9) HTN (hypertension) Assessment/Plan creatinine decreasing unknown source of fever, CXR is clear, UA pending BC X 2 symptomatic treatment diuretics adjust cardiac meds respiratory treatment cardio note appreciated titrate fio2 to sat of 92% dvt prophylaxis monitor BP and heart rate. Subjective ROS Limited/Unobtainable: No Interval Events: refusing coreg, claims having nightmares after taking it Allergies: Coded Allergies: ASPIRIN (Verified Allergy, Intermediate, Hives, 01/06/13) PENICILLINS (Verified Allergy, Intermediate, Hives, 01/06/13) Objective Last 24 Hour Vital Signs Date Time Temp Pulse Resp B/P (MAP) Pulse Ox O2 Delivery O2 Flow Rate FiO2 09/28/17 12:00 97.2 64 21 112/73 97 97.2 09/28/17 09:26 76 09/28/17 09:26 76 113/73 09/28/17 08:32 76 18 Nasal Cannula 2.0 28 09/28/17 08:32 Nasal Cannula 2.0 28 09/28/17 08:32 93 Nasal Cannula 2.0 28 09/28/17 08:00 97.8 75 20 113/73 94 97.8 09/28/17 05:16 94 09/28/17 04:00 98.0 60 18 128/80 99 Nasal Cannula 2.0 98.0 68 09/28/17 03:24 95 09/28/17 02:00 96.8 60 20 130/84 99 Nasal Cannula 2.0 96.8 68 09/28/17 01:00 95 09/28/17 00:00 97.9 66 20 135/86 99 Nasal Cannula 2.0 97.9 68 09/27/17 23:00 94 09/27/17 21:00 54 127/51 09/27/17 20:00 97.8 62 20 130/84 99 Nasal Cannula 2.0 97.8 68 09/27/17 19:34 90 Nasal Cannula 2.0 28 09/27/17 19:34 Nasal Cannula 2.0 28 09/27/17 19:33 88 20 Nasal Cannula 2.0 28 09/27/17 16:00 97.6 53 20 131/84 99 Nasal Cannula 2.0 97.6 68 Intake and Output 09/27/17 09/28/17 19:00 07:00 Intake Total 840 ml 200 ml Output Total 701 ml Balance 840 ml -501 ml Intake Oral 840 ml 200 ml Output Urine Total 700 ml Stool Total 1 ml # Voids 4 General Appearance: WD/WN HEENT: normocephalic, atraumatic Respiratory/Chest: chest wall non-tender, normal breath sounds Breasts: no masses Cardiovascular: normal peripheral pulses, regularly irregular Abdomen: normal bowel sounds, soft, non tender Genitourinary: normal external genitalia Skin: no lesions 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 Laboratory Tests 09/27/17 16:01: Vitamin B12 Level 1451H, Vitamin D 25-Hydroxy [Pending], 25-Hydroxy Vitamin D2 [ Pending], 25-Hydroxy Vitamin D3 [Pending], Folate 13.4, Thyroid Stimulating Hormone (TSH) 1.245, Rapid Plasma Reagin [Pending] 09/27/17 18:20: Erythrocyte Sedimentation Rate 2, Hemoglobin A1c 7.4H, Ammonia 75H 09/28/17 06:00: White Blood Count 9.8, Red Blood Count 5.62H, Hemoglobin 13.2, Hematocrit 46.3, Mean Corpuscular Volume 82, Mean Corpuscular Hemoglobin 23.5L, Mean Corpuscular Hemoglobin Concent 28.5L, Red Cell Distribution Width 16.7H, Platelet Count 229 , Mean Platelet Volume 7.6, Neutrophils (%) (Auto) 72.4, Lymphocytes (%) (Auto) 17.4L, Monocytes (%) (Auto) 7.6, Eosinophils (%) (Auto) 0.6, Basophils (%) (Auto ) 2.1H, Sodium Level 139, Potassium Level 4.5, Chloride Level 102, Carbon Dioxide Level 33H, Anion Gap 4L, Blood Urea Nitrogen 50H, Creatinine 1.5H, Estimat Glomerular Filtration Rate 42.3, Glucose Level 104, Calcium Level 9.3 Current Medications Medications (Trade) Dose Ordered Sig/Toya Route PRN Reason Start Time Stop Time Status Last Admin Dose Admin Acetaminophen (Tylenol) 650 mg Q4H PRN ORAL Fever (temp>100.5F) 09/27/17 17:15 10/24/17 17:14 Acetaminophen/ Hydrocodone Bitart ([place] 10/325) 1 tab Q4H PRN ORAL For Pain 09/27/17 17:15 10/01/17 17:14 Albuterol/ Ipratropium (Albuterol/ Ipratropium) 3 ml Q4H PRN HHN Shortness of Breath 09/27/17 17:15 09/29/17 17:14 Apixaban (Eliquis) 5 mg Q12HR ORAL 09/27/17 21:00 10/24/17 20:59 09/28/17 09:27 Carvedilol (Coreg) 12.5 mg EVERY 12 HOURS ORAL 09/27/17 21:00 10/26/17 08:59 09/28/17 09:26 Clonidine HCl (Catapres Tab) 0.1 mg TIDPRN PRN ORAL for SBP >160 mmHg 09/27/17 21:00 10/24/17 20:59 Dextrose (Dextrose 50%) 25 ml STAT PRN IV Hypoglycemia 09/27/17 17:15 10/24/17 17:14 Dextrose (Dextrose 50%) 50 ml STAT PRN IV Hypoglycemia 09/27/17 17:30 10/24/17 17:14 Digoxin (Lanoxin) 0.125 mg DAILY ORAL 09/28/17 09:00 10/25/17 08:59 09/28/17 09:26 Furosemide (Lasix) 20 mg DAILY ORAL 09/28/17 09:00 10/28/17 08:59 09/28/17 09:25 Gabapentin (Neurontin) 300 mg BID ORAL 09/27/17 18:00 10/24/17 17:59 09/28/17 09:26 Insulin Aspart (NovoLOG) BEFORE MEALS AND HS SUBQ 09/27/17 21:00 10/24/17 20:59 09/28/17 12:07 Ondansetron HCl (Zofran) 4 mg Q6H PRN IVP Nausea & Vomiting 09/27/17 17:15 10/24/17 17:14 Polyethylene Glycol (Miralax) 17 gm DAILYPRN PRN ORAL Constipation 09/27/17 17:15 10/24/17 17:14 Sildenafil Citrate (Revatio) 20 mg TID ORAL 09/27/17 18:00 10/24/17 17:59 09/28/17 14:35 Sitagliptin Phosphate (Januvia) 25 mg DAILY ORAL 09/28/17 09:00 10/25/17 08:59 09/28/17 09:25 Temazepam (Restoril) 15 mg HSPRN PRN ORAL Insomnia 09/27/17 17:15 10/01/17 17:14 Jesús Farrell MD Sep 28, 2017 15:44
--- NOTE | 2017-09-28 16:23 | Nephrology Progress Note ---
Assessment/Plan Assessment 1. Acute renal failure,. 2. Hypertensive urgency. 3. Rule out diabetic nephropathy. 4. Dyslipidemia. 5. Morbid obesity. Plan plan decrease monitoring renal function avoid NSAID replace electrolyte Subjective Constitutional: Reports: no symptoms HEENT: Reports: no symptoms Genitourinary: Reports: no symptoms Neurologic/Psychiatric: Reports: no symptoms Subjective c/o hallucination with new meds Objective Objective Last 24 Hour Vital Signs Date Time Temp Pulse Resp B/P (MAP) Pulse Ox O2 Delivery O2 Flow Rate FiO2 09/28/17 12:00 97.2 64 21 112/73 97 97.2 09/28/17 09:26 76 09/28/17 09:26 76 113/73 09/28/17 08:32 76 18 Nasal Cannula 2.0 28 09/28/17 08:32 Nasal Cannula 2.0 28 09/28/17 08:32 93 Nasal Cannula 2.0 28 09/28/17 08:00 97.8 75 20 113/73 94 97.8 09/28/17 05:16 94 09/28/17 04:00 98.0 60 18 128/80 99 Nasal Cannula 2.0 98.0 68 09/28/17 03:24 95 09/28/17 02:00 96.8 60 20 130/84 99 Nasal Cannula 2.0 96.8 68 09/28/17 01:00 95 09/28/17 00:00 97.9 66 20 135/86 99 Nasal Cannula 2.0 97.9 68 09/27/17 23:00 94 09/27/17 21:00 54 127/51 09/27/17 20:00 97.8 62 20 130/84 99 Nasal Cannula 2.0 97.8 68 09/27/17 19:34 90 Nasal Cannula 2.0 28 09/27/17 19:34 Nasal Cannula 2.0 28 09/27/17 19:33 88 20 Nasal Cannula 2.0 28 Intake and Output 09/27/17 09/28/17 19:00 07:00 Intake Total 840 ml 200 ml Output Total 701 ml Balance 840 ml -501 ml Intake Oral 840 ml 200 ml Output Urine Total 700 ml Stool Total 1 ml # Voids 4 Laboratory Tests 09/27/17 18:20: Erythrocyte Sedimentation Rate 2, Hemoglobin A1c 7.4H, Ammonia 75H 09/28/17 06:00: White Blood Count 9.8, Red Blood Count 5.62H, Hemoglobin 13.2, Hematocrit 46.3, Mean Corpuscular Volume 82, Mean Corpuscular Hemoglobin 23.5L, Mean Corpuscular Hemoglobin Concent 28.5L, Red Cell Distribution Width 16.7H, Platelet Count 229 , Mean Platelet Volume 7.6, Neutrophils (%) (Auto) 72.4, Lymphocytes (%) (Auto) 17.4L, Monocytes (%) (Auto) 7.6, Eosinophils (%) (Auto) 0.6, Basophils (%) (Auto ) 2.1H, Sodium Level 139, Potassium Level 4.5, Chloride Level 102, Carbon Dioxide Level 33H, Anion Gap 4L, Blood Urea Nitrogen 50H, Creatinine 1.5H, Estimat Glomerular Filtration Rate 42.3, Glucose Level 104, Calcium Level 9.3 Height (Feet): 5 Height (Inches): 3.00 Weight (Pounds): 294 Objective HEAD AND NECK: No JVP. No LAD. No thyromegaly. Extraocular movements intact. Pupils are reactive to light and accommodation. LUNGS: Decreased breathing sound on the both sides. CARDIAC: Regular rate and rhythm. S1 and S2. No murmur. No rub. ABDOMEN: Obese, nontender, and not distended. No organomegaly. EXTREMITIES: There is 3+ edema. No clubbing. No cyanosis. NEUROLOGIC: Cranial nerves II through XII within normal limits. Upper and lower extremities are grossly intact. Marzena Nielsen MD Sep 28, 2017 16:23
[2017-09-29 00:45] VITALS: BP 132/86
[2017-09-29 04:38] VITALS: BP 131/89
[2017-09-29] MEDS: NovoLOG Insulin Flexpen SUBQ SCH ×3 (05:46→16:30)
[2017-09-29 07:02] LABS: ALANINE AMINOTRANSFERASE 19 U/L (12-78); ALBUMIN 3.1 G/DL (3.4-5.0); ALBUMIN/GLOBULIN RATIO 0.7 (1.0-2.7); ALKALINE PHOSPHATASE 174 U/L (46-116); ANION GAP 6 mmol/L (5-15); ASPARTATE AMINO TRANSFERASE 25 U/L (15-37); BILIRUBIN,TOTAL 0.9 MG/DL (0.2-1.0); BLOOD UREA NITROGEN 42 mg/dL (7-18); CALCIUM 9.1 MG/DL (8.5-10.1); CARBON DIOXIDE 31 MMOL/L (21-32); CHLORIDE 105 MMOL/L (98-107); CREATININE 1.2 MG/DL (0.55-1.30); POTASSIUM 4.2 MMOL/L (3.5-5.1); SODIUM 142 MMOL/L (136-145)
[2017-09-29 07:07] LABS: BASOPHILS % (AUTO) 2.9 % (0.0-2.0); EOSINOPHILS % (AUTO) 1.6 % (0.0-3.0); HEMATOCRIT 43.9 % (37.0-47.0); HEMOGLOBIN 13.1 G/DL (12.0-16.0); LYMPHOCYTES % (AUTO) 15.6 % (20.0-45.0); MEAN CORPUSCULAR VOLUME 82 FL (80-99); MONOCYTES % (AUTO) 5.6 % (1.0-10.0); NEUTROPHILS % (AUTO) 74.2 % (45.0-75.0); PLATELET COUNT 240 K/UL (150-450); RED BLOOD COUNT 5.35 M/UL (4.20-5.40); RED CELL DISTRIBUTION WIDTH 16.7 % (11.6-14.8); WHITE BLOOD COUNT 8.9 K/UL (4.8-10.8)
[2017-09-29 07:42] LABS: PHOSPHORUS 3.8 MG/DL (2.5-4.9)
[2017-09-29 08:14] VITALS: BP 140/85
[2017-09-29] MEDS: sitaGLIPtin 25mg tab ORAL SCH (08:27)
[2017-09-29] MEDS: Revatio 20mg tab ORAL SCH ×3 (08:27→17:17)
[2017-09-29] MEDS: Carvedilol 6.25mg Tab ORAL SCH (08:27)
[2017-09-29] MEDS: Digoxin 0.125mg tab ORAL SCH (08:28)
[2017-09-29] MEDS: Eliquis 2.5mg tablet ORAL SCH (08:28)
--- NOTE | 2017-09-29 10:28 | Infectious Diseases Prog Note ---
Assessment/Plan Assessment/Plan Abx: None Assessment: Fever 09/27, resolved- ?source- r/o bacteremia- repeat CXR no infiltrates, no UTI symptoms -CXR 09/28: Possible mild interstitial congestion, unchanged over 3 days -V. duplex no DVT b/l LE -09/29 BCx p Acute on chronic CHF exacerbation RACHELLE, improving Mild leukocytosis-; resolved no obvious infectious process; suspect reactive to above -CXR: Mild CHF suspected. No significant change -afebrile L anterior leg chronic ulcer, no signs of infection hypertension morbid obesity Dm2 c/w neuropathy Afib HLD tobacco abuse chronic lower extremity ulceration CAD COPD pulmonary hypertension Plan: -Continue to monitor off abx unless recurrent febrile, leukocytosis and /or HD unstrable -f/u BCx x2 -Monitor CBC/BMP, temperatures -aspiration precautions -Cards, renal f/u -wound care/protocol per hospital protocol Thank you for this consultation. Will continue to follow along with you. Discussed with RN. Subjective Allergies: Coded Allergies: ASPIRIN (Verified Allergy, Intermediate, Hives, 01/06/13) PENICILLINS (Verified Allergy, Intermediate, Hives, 01/06/13) Subjective afebrile in >48hrs No leukocytosis at 2L NC no urinary symptoms no cough Objective Vital Signs Last 24 Hour Vital Signs Date Time Temp Pulse Resp B/P (MAP) Pulse Ox O2 Delivery O2 Flow Rate FiO2 09/29/17 08:28 71 09/29/17 08:27 71 140/85 09/29/17 08:14 98.2 71 20 140/85 95 98.2 09/29/17 07:45 71 18 Nasal Cannula 2.0 28 09/29/17 07:45 Nasal Cannula 2.0 28 09/29/17 07:45 95 Nasal Cannula 2.0 28 09/29/17 04:38 97.3 62 18 131/89 93 97.3 09/29/17 04:38 93 Nasal Cannula 2.0 09/29/17 00:45 97.8 71 18 132/86 92 97.8 09/29/17 00:45 92 Nasal Cannula 2.0 09/28/17 20:59 60 129/79 09/28/17 20:32 97.0 60 18 129/79 97 97.0 09/28/17 20:32 97 Nasal Cannula 2.0 09/28/17 19:07 82 20 Nasal Cannula 2.0 28 09/28/17 19:07 Nasal Cannula 2.0 28 09/28/17 19:07 92 Nasal Cannula 2.0 28 09/28/17 16:00 97.8 66 22 127/70 90 97.8 09/28/17 12:00 97.2 64 21 112/73 97 97.2 Height (Feet): 5 Height (Inches): 3.00 Weight (Pounds): 289 Objective HEAD AND NECK: No JVP. No LAD. No thyromegaly. Extraocular movements intact. Pupils are reactive to light and accommodation. LUNGS: Decreased breathing sound on the both sides. CARDIAC: Regular rate and rhythm. S1 and S2. No murmur. No rub. ABDOMEN: Obese, nontender, and not distended. No organomegaly. EXTREMITIES: There is 3+ edema. No clubbing. No cyanosis. NEUROLOGIC: Cranial nerves II through XII within normal limits. Upper and lower extremities are grossly intact. Laboratory Tests Test 09/29/17 06:20 White Blood Count 8.9 K/UL (4.8-10.8) Red Blood Count 5.35 M/UL (4.20-5.40) Hemoglobin 13.1 G/DL (12.0-16.0) Hematocrit 43.9 % (37.0-47.0) Mean Corpuscular Volume 82 FL (80-99) Mean Corpuscular Hemoglobin 24.4 PG (27.0-31.0) L Mean Corpuscular Hemoglobin Concent 29.7 G/DL (32.0-36.0) L Red Cell Distribution Width 16.7 % (11.6-14.8) H Platelet Count 240 K/UL (150-450) Mean Platelet Volume 7.6 FL (6.5-10.1) Neutrophils (%) (Auto) 74.2 % (45.0-75.0) Lymphocytes (%) (Auto) 15.6 % (20.0-45.0) L Monocytes (%) (Auto) 5.6 % (1.0-10.0) Eosinophils (%) (Auto) 1.6 % (0.0-3.0) Basophils (%) (Auto) 2.9 % (0.0-2.0) H Sodium Level 142 MMOL/L (136-145) Potassium Level 4.2 MMOL/L (3.5-5.1) Chloride Level 105 MMOL/L (98-107) Carbon Dioxide Level 31 MMOL/L (21-32) Anion Gap 6 mmol/L (5-15) Blood Urea Nitrogen 42 mg/dL (7-18) H Creatinine 1.2 MG/DL (0.55-1.30) Estimat Glomerular Filtration Rate 54.7 mL/min (>60) Glucose Level 123 MG/DL (74-106) H Calcium Level 9.1 MG/DL (8.5-10.1) Phosphorus Level 3.8 MG/DL (2.5-4.9) Magnesium Level 2.5 MG/DL (1.8-2.4) H Total Bilirubin 0.9 MG/DL (0.2-1.0) Aspartate Amino Transf (AST/SGOT) 25 U/L (15-37) Alanine Aminotransferase (ALT/SGPT) 19 U/L (12-78) Alkaline Phosphatase 174 U/L (46-116) H Total Protein 7.3 G/DL (6.4-8.2) Albumin 3.1 G/DL (3.4-5.0) L Globulin 4.2 g/dL Albumin/Globulin Ratio 0.7 (1.0-2.7) L Current Medications Medications (Trade) Dose Ordered Sig/Toya Route PRN Reason Start Time Stop Time Status Last Admin Dose Admin Acetaminophen (Tylenol) 650 mg Q4H PRN ORAL Fever (temp>100.5F) 09/27/17 17:15 10/24/17 17:14 Acetaminophen/ Hydrocodone Bitart ([place] 10/325) 1 tab Q4H PRN ORAL For Pain 09/27/17 17:15 10/01/17 17:14 09/28/17 17:34 Albuterol/ Ipratropium (Albuterol/ Ipratropium) 3 ml Q4H PRN HHN Shortness of Breath 09/27/17 17:15 09/29/17 17:14 Apixaban (Eliquis) 5 mg Q12HR ORAL 09/27/17 21:00 10/24/17 20:59 09/29/17 08:28 Carvedilol (Coreg) 12.5 mg EVERY 12 HOURS ORAL 09/27/17 21:00 10/26/17 08:59 09/29/17 08:27 Clonidine HCl (Catapres Tab) 0.1 mg TIDPRN PRN ORAL for SBP >160 mmHg 09/27/17 21:00 10/24/17 20:59 Dextrose (Dextrose 50%) 25 ml STAT PRN IV Hypoglycemia 09/27/17 17:15 10/24/17 17:14 Dextrose (Dextrose 50%) 50 ml STAT PRN IV Hypoglycemia 09/27/17 17:30 10/24/17 17:14 Digoxin (Lanoxin) 0.125 mg DAILY ORAL 09/28/17 09:00 10/25/17 08:59 09/29/17 08:28 Furosemide (Lasix) 20 mg DAILY ORAL 09/28/17 09:00 10/28/17 08:59 09/29/17 08:28 Gabapentin (Neurontin) 300 mg BID ORAL 09/27/17 18:00 10/24/17 17:59 09/29/17 08:27 Insulin Aspart (NovoLOG) BEFORE MEALS AND HS SUBQ 09/27/17 21:00 10/24/17 20:59 09/29/17 05:46 Ondansetron HCl (Zofran) 4 mg Q6H PRN IVP Nausea & Vomiting 09/27/17 17:15 10/24/17 17:14 Polyethylene Glycol (Miralax) 17 gm DAILYPRN PRN ORAL Constipation 09/27/17 17:15 10/24/17 17:14 Sildenafil Citrate (Revatio) 20 mg TID ORAL 09/27/17 18:00 10/24/17 17:59 09/29/17 08:27 Sitagliptin Phosphate (Januvia) 25 mg DAILY ORAL 09/28/17 09:00 10/25/17 08:59 09/29/17 08:27 Temazepam (Restoril) 15 mg HSPRN PRN ORAL Insomnia 09/27/17 17:15 10/01/17 17:14 Kavya Brandt M.D. Sep 29, 2017 10:28
[2017-09-29] MEDS ORDERED: CATAPRES0.1 MG ORAL (10:40)
[2017-09-29] MEDS ORDERED: RESTORIL15 MG ORAL (10:40)
[2017-09-29] MEDS ORDERED: NORCO 10-325 T1 EACH ORAL (10:45)
[2017-09-29] MEDS ORDERED: ZOFRAN4 M3 ORAL (10:45)
[2017-09-29] MEDS ORDERED: FUROSEMIDE20 M1 ORAL (10:45)
[2017-09-29] MEDS ORDERED: NOVOLOG100 UNIT/3 SUBQ (10:46)
[2017-09-29] MEDS ORDERED: MIRALAX17 G2 ORAL (10:46)
[2017-09-29] MEDS ORDERED: ELIQUIS5 MG PO (10:47)
[2017-09-29] MEDS ORDERED: DUONEB 0.5-3(2.53 ML HHN (10:47)
[2017-09-29] MEDS ORDERED: DIGOXIN0.125 MG/2 ORAL (10:47)
[2017-09-29] MEDS ORDERED: COREG12.5 MG ORAL (10:47)
[2017-09-29] MEDS ORDERED: ACETAMINOPHEN325 M1 ORAL (10:48)
[2017-09-29 11:42] VITALS: BP 125/73
--- NOTE | 2017-09-29 13:19 | Neurology Progress Note ---
Interim History Interim History Interim History Ms. Alcantar feels better. The mind is clearer. The legs are stronger. The pain in her feet is better. She has been able to get out of bed and taken a few walks in her room. She has not noticed any new neurologic problems. Review of Systems Neuro Review of Systems Benign. Objective Physical Exam Last Vital Signs Date Time Temp Pulse Resp B/P (MAP) Pulse Ox O2 Delivery O2 Flow Rate FiO2 09/29/17 11:42 97.3 65 20 125/73 95 97.3 09/29/17 07:45 Nasal Cannula 2.0 28 Laboratory Tests Test 09/29/17 06:20 White Blood Count 8.9 K/UL (4.8-10.8) Red Blood Count 5.35 M/UL (4.20-5.40) Hemoglobin 13.1 G/DL (12.0-16.0) Hematocrit 43.9 % (37.0-47.0) Mean Corpuscular Volume 82 FL (80-99) Mean Corpuscular Hemoglobin 24.4 PG (27.0-31.0) L Mean Corpuscular Hemoglobin Concent 29.7 G/DL (32.0-36.0) L Red Cell Distribution Width 16.7 % (11.6-14.8) H Platelet Count 240 K/UL (150-450) Mean Platelet Volume 7.6 FL (6.5-10.1) Neutrophils (%) (Auto) 74.2 % (45.0-75.0) Lymphocytes (%) (Auto) 15.6 % (20.0-45.0) L Monocytes (%) (Auto) 5.6 % (1.0-10.0) Eosinophils (%) (Auto) 1.6 % (0.0-3.0) Basophils (%) (Auto) 2.9 % (0.0-2.0) H Sodium Level 142 MMOL/L (136-145) Potassium Level 4.2 MMOL/L (3.5-5.1) Chloride Level 105 MMOL/L (98-107) Carbon Dioxide Level 31 MMOL/L (21-32) Anion Gap 6 mmol/L (5-15) Blood Urea Nitrogen 42 mg/dL (7-18) H Creatinine 1.2 MG/DL (0.55-1.30) Estimat Glomerular Filtration Rate 54.7 mL/min (>60) Glucose Level 123 MG/DL (74-106) H Calcium Level 9.1 MG/DL (8.5-10.1) Phosphorus Level 3.8 MG/DL (2.5-4.9) Magnesium Level 2.5 MG/DL (1.8-2.4) H Total Bilirubin 0.9 MG/DL (0.2-1.0) Aspartate Amino Transf (AST/SGOT) 25 U/L (15-37) Alanine Aminotransferase (ALT/SGPT) 19 U/L (12-78) Alkaline Phosphatase 174 U/L (46-116) H Total Protein 7.3 G/DL (6.4-8.2) Albumin 3.1 G/DL (3.4-5.0) L Globulin 4.2 g/dL Albumin/Globulin Ratio 0.7 (1.0-2.7) L Neurologic Exam Objective PHYSICAL EXAMINATION: GENERAL: She is a well-developed, well-nourished, morbidly obese, black lady, sitting up at the edge of her bed, in no acute distress. HEAD: Normocephalic and atraumatic. EENT: Examination benign. NECK: No neck rigidity was observed. NEUROLOGICAL EXAMINATION: MENTAL STATUS EXAMINATION: She was awake, but not completely alert. She was oriented to person, place, and time. She was able to recall 3/3 words immediately, and could remember them in 1 minute and 3 minutes on the second trial. She was able to remember presidents, Trump through Carmen Pako, but could not remember presidents prior to that. Her mathematical skills were minimally impaired. Her visuospatial function was relatively good. SPEECH: She had a mild dysarthria. LANGUAGE: She had anomia for low and mid frequency words. CRANIAL NERVE EXAMINATION: II: The visual li were intact on confrontation testing. III, IV & : External ocular movements are full and the pupils 3 mm in diameter, equal, round, regular, and reactive to light. V: She had normal facial sensations, and the temporales, masseters, and pterygoids functioned normally. VII: She had a trace right VII central facial paresis. VIII: She was able to hear well bilaterally and had no nystagmus. IX: The palate moved symmetrically on phonation. X: She had no hoarseness of voice. XI: The sternocleidomastoids and trapezii functioned normally. XII: The tongue was in the midline without any fasciculations or atrophy. MOTOR SYSTEM: The tone was normal in all four extremities. Examination of muscle mass revealed no focal wasting. Examination of power was exceedingly difficult to perform because of varying degrees of effort. She, however, had approximately G 5/5 power in both upper extremities. In the lower extremities, the effort was better and she had approximately G 4+/5 except for G 3/5 in the iliopsoas muscles bilaterally. SENSORY EXAMINATION: She had altered sensations to pinprick and light touch with the lower extremities being more altered than the upper extremities. Position sense was significantly diminished in the toes bilaterally, but was normal in the fingers bilaterally. Graphesthesia was normal bilaterally. REFLEXES: 0 at the biceps, triceps, brachioradialis, knees, and ankles. The plantar responses were flexor bilaterally. COORDINATION: She performed well on [id number] testing. She was unable to perform [id number] testing. STANCE & GAIT: Could not be tested. Asterixis: G 0/4 in both upper extremities. Impression/Recommendations Diagnostic Impression 1. Ms Lili Alcantar is a 67-year-old, right-handed, black lady, who does have a past history of hypertension, diabetes mellitus, dyslipidemia, congestive heart failure, cardiac arrhythmia, chronic obstructive pulmonary disease, obesity, diabetic neuropathy, tobacco abuse, alcohol abuse, and progressive gait problems, who was hospitalized on 09/24/2017 for chest pain, shortness of breath, increased weakness, gait unsteadiness, and jerking movements in her hands. All these problems have stayed with her and she has been getting progressively weak in the hospital. 2. She feels better. The mind is clearer. The legs are stronger. The pain in her feet is better. She has been able to get out of bed and taken a few walks in her room. She has not noticed any new neurologic problems. 3. On neurological examination, at this time, she does demonstrate problems with recent and remote memory, visuospatial function, higher cognitive function , and language. She also has significant lower extremity swelling, weakness in the proximal more than distal lower extremities, altered sensations to pinprick and light touch involving the lower extremities more than upper extremities, decreased position sense in the toes bilaterally, and global areflexia. Her bilateral upper extremity asterixis has resolved. 4. Laboratory data on my initial evaluation revealed that her WBC count was elevated to 11,100. Her chemistry panel revealed that her BUN was 48 with a creatinine of 1.8. Her blood glucoses were running high and the albumin was low at 2.9. 5. Further laboratory test have revealed that she has an elevated pCO2 at 65, elevated ammonia at 75 and elevated HB A1c at 7.4% 6. The patient's history and neurological examination are most compatible with generalized weakness due to a combination of an ongoing encephalopathic process , neuropathic process, possible compression neuropathy related to her significant swelling, and in addition, deconditioning. 7. The patient's encephalopathy is due to hypercarbia, hyperammonemia and deteriorating renal function. Her encephalopathy is better today. Recommendations 1. Continue present management. 2. Correct hypercarbia. 3. Correct hyperammonemia. 4. Will review EEG. 5. Mobilize with physical and occupational therapy. 6. Observe closely. Edmond Baez M.D., M.S.P.EDMOND JOHNSON Sep 29, 2017 13:19
--- NOTE | 2017-09-29 13:28 | Nephrology Progress Note ---
Assessment/Plan Assessment 1. Acute renal failure,. 2. Hypertensive urgency. 3. Rule out diabetic nephropathy. 4. Dyslipidemia. 5. Morbid obesity. Plan plan decrease monitoring renal function avoid NSAID replace electrolyte Subjective Constitutional: Reports: no symptoms HEENT: Reports: no symptoms Genitourinary: Reports: no symptoms Neurologic/Psychiatric: Reports: no symptoms Subjective feeling better today Objective Objective Last 24 Hour Vital Signs Date Time Temp Pulse Resp B/P (MAP) Pulse Ox O2 Delivery O2 Flow Rate FiO2 09/29/17 11:42 97.3 65 20 125/73 95 97.3 09/29/17 08:28 71 09/29/17 08:27 71 140/85 09/29/17 08:14 98.2 71 20 140/85 95 98.2 09/29/17 07:45 71 18 Nasal Cannula 2.0 09/29/17 07:45 Nasal Cannula 2.0 28 09/29/17 07:45 95 Nasal Cannula 2.0 28 09/29/17 04:38 97.3 62 18 131/89 93 97.3 09/29/17 04:38 93 Nasal Cannula 2.0 09/29/17 00:45 97.8 71 18 132/86 92 97.8 09/29/17 00:45 92 Nasal Cannula 2.0 09/28/17 20:59 60 129/79 09/28/17 20:32 97.0 60 18 129/79 97 97.0 09/28/17 20:32 97 Nasal Cannula 2.0 09/28/17 19:07 82 20 Nasal Cannula 2.0 09/28/17 19:07 Nasal Cannula 2.0 09/28/17 19:07 92 Nasal Cannula 2.0 09/28/17 16:00 97.8 66 22 127/70 90 97.8 Intake and Output 09/28/17 09/29/17 19:00 07:00 Intake Total 800 ml Output Total 700 ml Balance 100 ml Intake Oral 800 ml Output Urine Total 700 ml # Voids 2 2 # Bowel Movements 4 1 Laboratory Tests 09/29/17 06:20: White Blood Count 8.9, Red Blood Count 5.35, Hemoglobin 13.1, Hematocrit 43.9, Mean Corpuscular Volume 82, Mean Corpuscular Hemoglobin 24.4L, Mean Corpuscular Hemoglobin Concent 29.7L, Red Cell Distribution Width 16.7H, Platelet Count 240 , Mean Platelet Volume 7.6, Neutrophils (%) (Auto) 74.2, Lymphocytes (%) (Auto) 15.6L, Monocytes (%) (Auto) 5.6, Eosinophils (%) (Auto) 1.6, Basophils (%) (Auto ) 2.9H, Sodium Level 142, Potassium Level 4.2, Chloride Level 105, Carbon Dioxide Level 31, Anion Gap 6, Blood Urea Nitrogen 42H, Creatinine 1.2, Estimat Glomerular Filtration Rate 54.7, Glucose Level 123H, Calcium Level 9.1, Phosphorus Level 3.8, Magnesium Level 2.5H, Total Bilirubin 0.9, Aspartate Amino Transf (AST/SGOT) 25, Alanine Aminotransferase (ALT/SGPT) 19, Alkaline Phosphatase 174H, Total Protein 7.3, Albumin 3.1L, Globulin 4.2, Albumin/ Globulin Ratio 0.7L Height (Feet): 5 Height (Inches): 3.00 Weight (Pounds): 289 Objective HEAD AND NECK: No JVP. No LAD. No thyromegaly. Extraocular movements intact. Pupils are reactive to light and accommodation. LUNGS: Decreased breathing sound on the both sides. CARDIAC: Regular rate and rhythm. S1 and S2. No murmur. No rub. ABDOMEN: Obese, nontender, and not distended. No organomegaly. EXTREMITIES: There is 3+ edema. No clubbing. No cyanosis. NEUROLOGIC: Cranial nerves II through XII within normal limits. Upper and lower extremities are grossly intact. Marzena Nielsen MD Sep 29, 2017 13:28
--- NOTE | 2017-09-29 14:06 | General Progress Note ---
Assessment/Plan Problem List: (1) Edema ICD Codes: R60.9 - Edema, unspecified SNOMED: 529776265 (2) Acute bronchitis (3) ARF (acute renal failure) ICD Codes: N17.9 - Acute kidney failure, unspecified SNOMED: 33445685 (4) ACS (acute coronary syndrome) ICD Codes: I24.9 - Acute ischemic heart disease, unspecified SNOMED: 142709925 (5) Acute chest pain ICD Codes: R07.9 - Acute chest pain SNOMED: 992053274 (6) HTN (hypertension) ICD Codes: I10 - HTN (hypertension) SNOMED: 57215684 (7) DM (diabetes mellitus) ICD Codes: E11.9 - DM (diabetes mellitus) SNOMED: 70385965 (8) CHF (congestive heart failure) ICD Codes: I50.9 - Heart failure, unspecified SNOMED: 61162196 Status: stable, progressing Assessment/Plan o2 pulm tx abx ot pt diet dc to mehul gandhi Subjective Constitutional: Reports: weakness Allergies: Coded Allergies: ASPIRIN (Verified Allergy, Intermediate, Hives, 01/06/13) PENICILLINS (Verified Allergy, Intermediate, Hives, 01/06/13) All Systems: reviewed and negative except above Subjective o2nc sl sob Objective Last 24 Hour Vital Signs Date Time Temp Pulse Resp B/P (MAP) Pulse Ox O2 Delivery O2 Flow Rate FiO2 09/29/17 11:42 97.3 65 20 125/73 95 97.3 09/29/17 08:28 71 09/29/17 08:27 71 140/85 09/29/17 08:14 98.2 71 20 140/85 95 98.2 09/29/17 07:45 71 18 Nasal Cannula 2.0 28 09/29/17 07:45 Nasal Cannula 2.0 28 09/29/17 07:45 95 Nasal Cannula 2.0 28 09/29/17 04:38 97.3 62 18 131/89 93 97.3 09/29/17 04:38 93 Nasal Cannula 2.0 09/29/17 00:45 97.8 71 18 132/86 92 97.8 09/29/17 00:45 92 Nasal Cannula 2.0 09/28/17 20:59 60 129/79 09/28/17 20:32 97.0 60 18 129/79 97 97.0 09/28/17 20:32 97 Nasal Cannula 2.0 09/28/17 19:07 82 20 Nasal Cannula 2.0 28 09/28/17 19:07 Nasal Cannula 2.0 28 09/28/17 19:07 92 Nasal Cannula 2.0 28 09/28/17 16:00 97.8 66 22 127/70 90 97.8 Intake and Output 09/28/17 09/29/17 19:00 07:00 Intake Total 800 ml Output Total 700 ml Balance 100 ml Intake Oral 800 ml Output Urine Total 700 ml # Voids 2 2 # Bowel Movements 4 1 Laboratory Tests 09/29/17 06:20: White Blood Count 8.9, Red Blood Count 5.35, Hemoglobin 13.1, Hematocrit 43.9, Mean Corpuscular Volume 82, Mean Corpuscular Hemoglobin 24.4L, Mean Corpuscular Hemoglobin Concent 29.7L, Red Cell Distribution Width 16.7H, Platelet Count 240 , Mean Platelet Volume 7.6, Neutrophils (%) (Auto) 74.2, Lymphocytes (%) (Auto) 15.6L, Monocytes (%) (Auto) 5.6, Eosinophils (%) (Auto) 1.6, Basophils (%) (Auto ) 2.9H, Sodium Level 142, Potassium Level 4.2, Chloride Level 105, Carbon Dioxide Level 31, Anion Gap 6, Blood Urea Nitrogen 42H, Creatinine 1.2, Estimat Glomerular Filtration Rate 54.7, Glucose Level 123H, Calcium Level 9.1, Phosphorus Level 3.8, Magnesium Level 2.5H, Total Bilirubin 0.9, Aspartate Amino Transf (AST/SGOT) 25, Alanine Aminotransferase (ALT/SGPT) 19, Alkaline Phosphatase 174H, Total Protein 7.3, Albumin 3.1L, Globulin 4.2, Albumin/ Globulin Ratio 0.7L Height (Feet): 5 Height (Inches): 3.00 Weight (Pounds): 289 General Appearance: lethargic EENT: normal ENT inspection Neck: normal alignment Cardiovascular: normal peripheral pulses, normal rate, regular rhythm Respiratory/Chest: chest wall non-tender, decreased breath sounds Abdomen: normal bowel sounds, non tender, soft Extremities: normal inspection Edema: 1+ Arm (L), 1+ Arm (R), 1+ Leg (L), 1+ Leg (R), 1+ Pedal (L), 1+ Pedal ( R), 1+ Generalized Edema: trace edema Neurologic: responsive, motor weakness Skin: normal pigmentation, warm/dry Pedro Benjamin DO Sep 29, 2017 14:06
[2017-09-29] MEDS ORDERED: Tubing IV Secondary IV ONE (15:37)
--- NOTE | 2017-09-29 15:50 | Pulmonology Progress Note ---
Assessment/Plan Problems: (1) ARF (acute renal failure) (2) Fever (3) ACS (acute coronary syndrome) (4) Pulmonary edema (5) Pulmonary hypertension (6) COPD (chronic obstructive pulmonary disease) (7) Tobacco user (8) DM (diabetes mellitus) (9) HTN (hypertension) Assessment/Plan creatinine decreasing symptomatic treatment diuretics adjust cardiac meds respiratory treatment cardio note appreciated titrate fio2 to sat of 92% dvt prophylaxis monitor BP and heart rate transfer to [facility] . Subjective ROS Limited/Unobtainable: No Constitutional: Reports: no symptoms HEENT: Repors: no symptoms Allergies: Coded Allergies: ASPIRIN (Verified Allergy, Intermediate, Hives, 01/06/13) PENICILLINS (Verified Allergy, Intermediate, Hives, 01/06/13) Objective Last 24 Hour Vital Signs Date Time Temp Pulse Resp B/P (MAP) Pulse Ox O2 Delivery O2 Flow Rate FiO2 09/29/17 11:42 97.3 65 20 125/73 95 97.3 09/29/17 08:28 71 09/29/17 08:27 71 140/85 09/29/17 08:14 98.2 71 20 140/85 95 98.2 09/29/17 07:45 71 18 Nasal Cannula 2.0 28 09/29/17 07:45 Nasal Cannula 2.0 28 09/29/17 07:45 95 Nasal Cannula 2.0 28 09/29/17 04:38 97.3 62 18 131/89 93 97.3 09/29/17 04:38 93 Nasal Cannula 2.0 09/29/17 00:45 97.8 71 18 132/86 92 97.8 09/29/17 00:45 92 Nasal Cannula 2.0 09/28/17 20:59 60 129/79 09/28/17 20:32 97.0 60 18 129/79 97 97.0 09/28/17 20:32 97 Nasal Cannula 2.0 09/28/17 19:07 82 20 Nasal Cannula 2.0 28 09/28/17 19:07 Nasal Cannula 2.0 28 09/28/17 19:07 92 Nasal Cannula 2.0 28 09/28/17 16:00 97.8 66 22 127/70 90 97.8 Intake and Output 09/28/17 09/29/17 19:00 07:00 Intake Total 800 ml Output Total 700 ml Balance 100 ml Intake Oral 800 ml Output Urine Total 700 ml # Voids 2 2 # Bowel Movements 4 1 General Appearance: WD/WN HEENT: normocephalic, atraumatic Respiratory/Chest: chest wall non-tender, lungs clear Cardiovascular: normal peripheral pulses, normal rate Abdomen: normal bowel sounds, soft, non tender Genitourinary: normal external genitalia Extremities: no cyanosis Neurologic/Psychiatric: supervisor grips II-XII grossly normal Laboratory Tests 09/29/17 06:20: White Blood Count 8.9, Red Blood Count 5.35, Hemoglobin 13.1, Hematocrit 43.9, Mean Corpuscular Volume 82, Mean Corpuscular Hemoglobin 24.4L, Mean Corpuscular Hemoglobin Concent 29.7L, Red Cell Distribution Width 16.7H, Platelet Count 240 , Mean Platelet Volume 7.6, Neutrophils (%) (Auto) 74.2, Lymphocytes (%) (Auto) 15.6L, Monocytes (%) (Auto) 5.6, Eosinophils (%) (Auto) 1.6, Basophils (%) (Auto ) 2.9H, Sodium Level 142, Potassium Level 4.2, Chloride Level 105, Carbon Dioxide Level 31, Anion Gap 6, Blood Urea Nitrogen 42H, Creatinine 1.2, Estimat Glomerular Filtration Rate 54.7, Glucose Level 123H, Calcium Level 9.1, Phosphorus Level 3.8, Magnesium Level 2.5H, Total Bilirubin 0.9, Aspartate Amino Transf (AST/SGOT) 25, Alanine Aminotransferase (ALT/SGPT) 19, Alkaline Phosphatase 174H, Total Protein 7.3, Albumin 3.1L, Globulin 4.2, Albumin/ Globulin Ratio 0.7L Current Medications Medications (Trade) Dose Ordered Sig/Toya Route PRN Reason Start Time Stop Time Status Last Admin Dose Admin Acetaminophen (Tylenol) 650 mg Q4H PRN ORAL Fever (temp>100.5F) 09/27/17 17:15 10/24/17 17:14 Acetaminophen/ Hydrocodone Bitart (Simpson 10/325) 1 tab Q4H PRN ORAL For Pain 09/27/17 17:15 10/01/17 17:14 09/28/17 17:34 Albuterol/ Ipratropium (Albuterol/ Ipratropium) 3 ml Q4H PRN HHN Shortness of Breath 09/27/17 17:15 09/29/17 17:14 Apixaban (Eliquis) 5 mg Q12HR ORAL 09/27/17 21:00 10/24/17 20:59 09/29/17 08:28 Carvedilol (Coreg) 12.5 mg EVERY 12 HOURS ORAL 09/27/17 21:00 10/26/17 08:59 09/29/17 08:27 Clonidine HCl (Catapres Tab) 0.1 mg TIDPRN PRN ORAL for SBP >160 mmHg 09/27/17 21:00 10/24/17 20:59 Dextrose (Dextrose 50%) 25 ml STAT PRN IV Hypoglycemia 09/27/17 17:15 10/24/17 17:14 Dextrose (Dextrose 50%) 50 ml STAT PRN IV Hypoglycemia 09/27/17 17:30 10/24/17 17:14 Digoxin (Lanoxin) 0.125 mg DAILY ORAL 09/28/17 09:00 10/25/17 08:59 09/29/17 08:28 Furosemide (Lasix) 20 mg DAILY ORAL 09/28/17 09:00 10/28/17 08:59 09/29/17 08:28 Gabapentin (Neurontin) 300 mg BID ORAL 09/27/17 18:00 10/24/17 17:59 09/29/17 08:27 Insulin Aspart (NovoLOG) BEFORE MEALS AND HS SUBQ 09/27/17 21:00 10/24/17 20:59 09/29/17 11:49 Ondansetron HCl (Zofran) 4 mg Q6H PRN IVP Nausea & Vomiting 09/27/17 17:15 10/24/17 17:14 Polyethylene Glycol (Miralax) 17 gm DAILYPRN PRN ORAL Constipation 09/27/17 17:15 10/24/17 17:14 Sildenafil Citrate (Revatio) 20 mg TID ORAL 09/27/17 18:00 10/24/17 17:59 09/29/17 13:24 Sitagliptin Phosphate (Januvia) 25 mg DAILY ORAL 09/28/17 09:00 10/25/17 08:59 09/29/17 08:27 Temazepam (Restoril) 15 mg HSPRN PRN ORAL Insomnia 09/27/17 17:15 10/01/17 17:14 Jesús Farrell MD Sep 29, 2017 15:50
[2017-09-29 16:21] VITALS: BP 126/67
--- NOTE | 2017-09-29 21:29 | Electroencephalogram ---
EEG REPORT DATE OF TRACIN09/28/2017 REQUESTING PHYSICIAN: Pedro Benjamin D.O. READING PHYSICIAN: Ramana Baez M.D. PROCEDURE PERFORMED: Electroencephalogram. HISTORY: This EEG was performed on a 67-year-old lady with history of multiple medical problems, who was hospitalized for generalized weakness and an altered mental state. The purpose of this EEG was to evaluate the patient for the degree and type of cerebral dysfunction and to exclude ictal or interictal phenomena. TECHNICAL NOTE: This EEG was performed on a [employer] with electrodes placed on the scalp according to the International 10-20 system. A full set of electrodes were not placed because of the fact that the patient had a wig that was weaved into her hair as a result of which electrodes could not be placed in the normal fashion. The EEG was performed in the awake and drowsy states. OBSERVATIONS: In the best awake state, the background activity consisted of 6-7 Hz posterior rhythmic theta activity. Drowsiness was characterized by irregular 4-5 Hz theta with intermixed delta frequencies. Triphasic waveforms with an rxnvfzxz-eb-kebjfzvqh gradient were also seen. No definite focal abnormalities or epileptiform discharges were seen. IMPRESSION: This is an abnormal EEG characterized by: 1. Slowing of the background in the 6-7 Hz theta range in the best awake state. 2. The presence of triphasic waveforms with an wlwqlfwj-um-koojegqgl gradient seen during drowsiness. COMMENT: The study is consistent with an encephalopathy of a moderate degree most probably with a toxic metabolic component as evidenced by the triphasic waveforms. Ramana Baez M.D., M.S.P.H. DR: ROBERT JOB#: [id number] CC: BELKIS
--- NOTE | 2017-09-30 13:04 | Discharge Summary ---
Discharge Summary Discharge Summary _ DATE OF ADMISSION: 09/24/2017 DATE OF DISCHARGE: 09/29/2017 REASON FOR ADMISSION: 67 years old female on presented to emergency room for evaluation due to complain of chest pain and shortness of breath. Patient reported syncopal bilateral lower extremity edema, 3-4 pillow orthopnea as well as the paroxysmal nocturnal dyspnea. Her cardiac history was significant for history of atrial flutter ,which was converted to sinus rhythm on July 2017 admission , with electrical DC cardioversion after RAMIRO revealed no atrial appendage thrombus. Patient was placed on amiodarone and continued with anticoagulation in the hospital. 2-D echo at that time revealed right heart failure. It also revealed hypertensive heart disease with severe RV dilatation, right ventricular systolic pressure of approximately 65, global left ventricular hypokinesis with left ventricular ejection fraction of approximately 30%. It was found in ED, that the patient was not on beta rubin/ Coreg, amiodarone and Eliquis. Troponin was negative. Chest x-ray revealed n2teafgr of CHF. Renal parameters initially were stable. Pro BNP 1697. Patient admitted with diagnosis of chest pain, rule out acute coronary syndrome, congestive heart failure, CONSULTANTS: electronic data processing auditor Dr. Erickson pulmonary Dr. Farrell [place] specialist [facility] navy fighter pilot Dr. Nielsen [facility] COURSE: Patient admitted to telemetry floor. Serial troponin 3 were negative. Echocardiogram revealed mild global left ventricular hypokinesis with left ventricular ejection fraction 45-50%. Mild left ventricular hypertrophy. Severe right atrial enlargement. Abnormal septal motion due to right ventricle volume overload. Right ventricular systolic pressure of 81 consistent with severe pulmonary hypertension. Severe tricuspid regurgitation. Significant left ventricular diastolic dysfunction , grade 2. Working Foreman closely followed. Working Foreman started on diuresis. Cardiorenal parameters and volumes were closely monitored. Per electronic data processing auditor, acute diastolic congestive heart failure was due to medication noncompliance and was improving . Patient was noted to have short runs of nonsustained ventricular tachycardia. Carvedilol was optimized. Magnesium level was stable. Tachycardia induced cardiomyopathy improved compared to the previous echocardiogram current ejection fraction 45%. Patient was converted on previous admission from paroxysmal atrial flutter to sinus rhythm with electrical DC cardioversion. Amiodarone and anticoagulation with Eliquis continued. Patient had a significant right heart failure; digoxin and gentle diuresis were continued. Blood pressure was controlled with current medication regimen. Sildenafil was continued for severe pulmonary hypertension. Patient clinically improved with diuresis , but develop acute renal failure with creatinine up to 1.8. IV Lasix was discontinued and switched to low dose of oral Lasix. MCKAY inhibitor was stopped. Nephrology consult was requested when patient developed acute renal failure. According to navy fighter pilot, etiology of acute renal failure was induced acute tubular necrosis due to unstable hemodynamics. Patient also most likely had some degree of diabetic nephropathy. MCKAY inhibitor was discontinued. Lasix dose was down titrated as mentioned above. Working Foreman suggested to attempt in future MCKAY again , after renal function stabilized. Patient will benefit from Entresto as outpatient. Renal parameters closely monitored, urine studies were done, electrolytes replaced as needed . Nephrotoxins were further avoided . Prior to discharge creatinine down to 1.2. Stable electrolytes Neurology consult was requested due to ongoing encephalopathy. Per neurologist , encephalopathy was of metabolic origin, due to hyperammonemia, hypercarbia and renal failure. Patient was started on lactulose. Patient was observed closely for any paroxysmal events. With improvement in renal function, treatment of hyperammonemia and resolved hypercarbia, mental status improved. Patient started to work with physical and occupational therapists. Infectious disease specialist consult was requested since patient had fever on September 27. Blood culture were negative. Repeated chest x-ray revealed no evidence of infection. No urinary tract infection symptoms. Patient had left anterior leg chronic ulcer, but no signs of infection. Infectious disease specialist recommended observe patient off antibiotics, unless recurrent fever or leukocytosis or hemodynamically unstable. Supplemental oxygen provided as needed to keep pulse oximetry above 92%. Pulmonary toilet provided as needed with bronchodilator. Patient was counseled to continue abstinence from smoking. Keno Writer closely followed. Blood sugar was managed with sliding scale insulin and remained stable. Hemoglobin A1c -7.4. DVT prophylaxis provided. Patient was stable for transfer to acute rehabilitation unit at [facility] for further management. FINAL DIAGNOSES: Acute on chronic diastolic congestive heart failure Acute renal failure (likely due to acute tubular necrosis secondary to unstable hemodynamics) Short run of nonsustained ventricular tachycardia Paroxysmal atrial fibrillation Right heart failure Tachycardia induced cardiomyopathy COPD Pulmonary edema Tobacco user Diabetes mellitus Hypertensive urgency Hypertension History of CVA Dyslipidemia Morbid obesity Possible diabetic nephropathy Encephalopathy Left anterior leg chronic ulcer( no evidence of infection) DISCHARGE MEDICATIONS: See Medication Reconciliation list. DISCHARGE INSTRUCTIONS: Patient was transferred to Acute Rehabilitation Unit for further management. Follow-up with medical doctor at the accepting facility I have been assigned to dictate discharge summary for this account. I was not involved in the patient's management. Magdalena Gonzalez NP Sep 30, 2017 13:04
== END 2017-09-29 19:13 | disposition short-term general hospital (02) | DRG 291 ==
LOC: EMR 12:22 → 2E 12:35 → EDBEDREQ 12:44 → 2E 17:41 → 4W 09-27 16:41
DX: I11.0 Hypertensive heart disease with heart failure (principal); N17.0 Acute kidney failure with tubular necrosis; G93.41 Metabolic encephalopathy; I48.92 Unspecified atrial flutter; Z68.43 Body mass index [BMI] 50.0-59.9, adult; J44.0 Chronic obstructive pulmonary disease with (acute) lower respiratory infection; I47.1 Supraventricular tachycardia; E72.20 Disorder of urea cycle metabolism, unspecified; L97.929 Non-pressure chronic ulcer of unspecified part of left lower leg with unspecified severity; I50.33 Acute on chronic diastolic (congestive) heart failure; I42.9 Cardiomyopathy, unspecified; I25.10 Atherosclerotic heart disease of native coronary artery without angina pectoris; I27.20 Pulmonary hypertension, unspecified; E66.9 Obesity, unspecified; Z91.14 Patient's other noncompliance with medication regimen; E66.01 Morbid (severe) obesity due to excess calories; E78.5 Hyperlipidemia, unspecified; I48.0 Paroxysmal atrial fibrillation; Z72.0 Tobacco use; G62.9 Polyneuropathy, unspecified; E11.40 Type 2 diabetes mellitus with diabetic neuropathy, unspecified; Z88.0 Allergy status to penicillin; I16.0 Hypertensive urgency; J20.9 Acute bronchitis, unspecified; R26.9 Unspecified abnormalities of gait and mobility; Z86.73 Personal history of transient ischemic attack (TIA), and cerebral infarction without residual deficits
CPT/HCPCS: 36415; 36600; 71045; 80048; 80053; 80162; 82044; 82140; 82248; 82306; 82550; 82553; 82570; 82607; 82746; 82803; 82962; 83036; 83690; 83735; 83880; 84100; 84300; 84443; 84484; 85025; 85651; 86592; 87040; 89050; 93005; 93306; 93970; 94664; 94760; 95819; 97803; 99285; J1815

== ENCOUNTER 2017-11-02 11:57 | Inpatient (IN) | payer MEDICARE, MEDICAID ==
[~2017-11-02] VITALS: Ht 160 cm; Wt 136.1 kg
[~2017-11-02 11:57] MED LIST changes: +ACETAMINOPHEN325 M1 ORAL; +CATAPRES0.1 MG ORAL; +COREG12.5 MG ORAL; +DIGOXIN0.125 MG/2 ORAL; +DUONEB 0.5-3(2.53 ML HHN; +ELIQUIS5 MG PO; +FUROSEMIDE20 M1 ORAL; +MIRALAX17 G2 ORAL; +NORCO 10-325 T1 EACH ORAL; +NOVOLOG100 UNIT/3 SUBQ; +RESTORIL15 MG ORAL; +ZOFRAN4 M3 ORAL
[2017-11-02 12:33] VITALS: BP 131/91
[2017-11-02] MEDS ORDERED: Sodium Chloride 500ML 500 ML IV ONE (12:50)
[2017-11-02 13:09] LABS: APPEARANCE,URINE CLEAR; BILIRUBIN, URINE 1+ (NEGATIVE); COLOR,URINE BROWN; GLUCOSE, URINE (UA) NEGATIVE (NEGATIVE); KETONES,URINE NEGATIVE (NEGATIVE); LEUKOCYTE ESTERASE ,URINE 3+ (NEGATIVE); NITRITE,URINE NEGATIVE (NEGATIVE); PH,URINE 6 (4.5-8.0); PROTEIN,URINE 3+ (NEGATIVE); UROBILINOGEN,URINE 8 MG/DL (0.0-1.0)
[2017-11-02 13:11] LABS: EOSINOPHILS % (AUTO) 1.6 % (0.0-3.0); HEMATOCRIT 46.8 % (37.0-47.0); LYMPHOCYTES % (AUTO) 20.9 % (20.0-45.0); MEAN CORPUSCULAR VOLUME 81 FL (80-99); MONOCYTES % (AUTO) 7.9 % (1.0-10.0); NEUTROPHILS % (AUTO) 68.6 % (45.0-75.0); PLATELET COUNT 223 K/UL (150-450); RED BLOOD COUNT 5.75 M/UL (4.20-5.40); RED CELL DISTRIBUTION WIDTH 18.5 % (11.6-14.8); WHITE BLOOD COUNT 7.7 K/UL (4.8-10.8)
[2017-11-02 13:20] LABS: ANION GAP 9 mmol/L (5-15); BLOOD UREA NITROGEN 39 mg/dL (7-18); CALCIUM 8.7 MG/DL (8.5-10.1); CARBON DIOXIDE 29 MMOL/L (21-32); CHLORIDE 106 MMOL/L (98-107); CREATININE 1.6 MG/DL (0.55-1.30); POTASSIUM 4.1 MMOL/L (3.5-5.1); SODIUM 144 MMOL/L (136-145)
[2017-11-02 13:37] LABS: ALANINE AMINOTRANSFERASE 27 U/L (12-78); ALBUMIN 2.9 G/DL (3.4-5.0); ALBUMIN/GLOBULIN RATIO 0.8 (1.0-2.7); ALKALINE PHOSPHATASE 234 U/L (46-116); ASPARTATE AMINO TRANSFERASE 40 U/L (15-37); BILIRUBIN,TOTAL 2.2 MG/DL (0.2-1.0); CKMB 1.9 NG/ML (0.0-3.6); CREATINE KINASE 280 U/L (26-308)
[2017-11-02 13:49] LABS: BILIRUBIN,DIRECT 1.1 MG/DL (0.0-0.3)
--- NOTE | 2017-11-02 14:15 | Diagnostic Imaging Report ---
Indication: Dyspnea Comparison: 09/28/2017 A single view chest radiograph was obtained. Findings: No definite infiltrate or pulmonary vascular congestion identified. The heart is enlarged. The aorta is mildly enlarged consistent with atherosclerotic vascular disease. The bones are osteopenic. Impression: No acute disease
[2017-11-02] MEDS ORDERED: ELIQUIS5 MG PO (14:55)
[2017-11-02] MEDS ORDERED: AMIODARONE HCL200 MG ORAL (14:55)
[2017-11-02] MEDS ORDERED: ACETAMINOPHEN-1 EAC1 ORAL (14:55)
[2017-11-02] MEDS ORDERED: DIPHENHYDRAMINE25 M1 ORAL (14:55)
[2017-11-02] MEDS ORDERED: LEXAPRO10 MG ORAL (14:55)
--- NOTE | 2017-11-02 15:21 | Emergency Room Report ---
History of Present Illness General Chief Complaint: Dizziness Source: Patient Present Illness HPI 67-year-old female presents to ED complaining of dizziness 1 day. States like she feels she is going to pass out. States she fell and hit her head yesterday. Went to another hospital in head CT which was negative. Patient was subsequently discharged. Patient states she is still feeling dizzy. Denies chest pain or shortness of breath. Denies any headaches. Denies any fevers or chills. States that she believes is a medication side effect. States she takes many medications but does not remember which ones are new. No other aggravating relieving factors. Denies any other associated symptoms Allergies: Coded Allergies: ASPIRIN (Verified Allergy, Intermediate, Hives, 01/06/13) PENICILLINS (Verified Allergy, Intermediate, Hives, 01/06/13) Patient History Past Medical History: DM, HTN, AFib Past Surgical History: none Pertinent Family History: none Social History: Denies: smoking, alcohol use, drug use Last Menstrual Period: n/a Now: No Immunizations: UTD Reviewed Nursing Documentation: PMH: Agreed; PSxH: Agreed Nursing Documentation-PMH Hx Cardiac Problems: Yes - AFIBB Hx Hypertension: Yes Hx Pacemaker: No Hx Asthma: No Hx COPD: Yes Hx Diabetes: Yes - DM II Hx Cancer: No Hx Gastrointestinal Problems: Yes Hx Dialysis: No Hx Neurological Problems: Yes Hx Seizures: No Hx Peripheral Neuropathy: Yes Review of Systems All Other Systems: negative except mentioned in HPI Physical Exam Vital Signs Date Time Temp Pulse Resp B/P (MAP) Pulse Ox O2 Delivery O2 Flow Rate FiO2 11/02/17 12:13 96.9 100 20 131/71 100 Room Air 97.0 Sp02 EP Interpretation: reviewed, normal General Appearance: no apparent distress, alert, GCS 15, non-toxic Head: normocephalic, atraumatic Eyes: bilateral eye normal inspection, bilateral eye PERRL ENT: hearing grossly normal, normal pharynx, no angioedema, normal voice Neck: full range of motion, supple/symm/no masses Respiratory: chest non-tender, lungs clear, normal breath sounds, speaking full sentences Cardiovascular #1: regular rate, rhythm, no edema Cardiovascular #2: 2+ carotid (R), 2+ carotid (L), 2+ radial (R), 2+ radial (L) , 2+ dorsalis pedis (R), 2+ dorsalis pedis (L) Gastrointestinal: normal bowel sounds, non tender, soft, non-distended, no guarding, no rebound Rectal: deferred Genitourinary: normal inspection, no CVA tenderness Musculoskeletal: back normal, gait/station normal, normal range of motion, non- tender Neurologic: alert, oriented x3, responsive, motor strength/tone normal, sensory intact, speech normal Psychiatric: judgement/insight normal, memory normal, mood/affect normal, no suicidal/homicidal ideation Reflexes: 3+ bicep (R), 3+ bicep (L), 3+ tricep (R), 3+ tricep (L), 3+ knee (R) , 3+ knee (L) Skin: normal color, no rash, warm/dry, well hydrated Lymphatic: no adenopathy Medical Decision Making Diagnostic Impression: Primary Impression: Dizziness Additional Impressions: Renal insufficiency UTI (urinary tract infection) Qualified Codes: N39.0 - Urinary tract infection, site not specified ER Course Hospital Course 67 yo F presents c/o dizziness, weakness Differential diagnoses include: DE/unstable angina, arrythmia, dehydration Clinical course Patient placed on stretcher. on wheel worker. After initial history and physical I ordered labs, EKG, chest x-ray, IVFs, labs reviewed- no leukocytosis, hemoglobin/hematocrit ok, BUN/Cr elevated, trop 0.025, BNP elevated, UA+ bacteria EKG- NSR, no acute ischemic changes interpreted by me Chest x-ray- no acute process Given IV fluids. Given antibiotics. Case discussed with Dr. Carlin and he agreed to accept the patient to his service for further care and support I. I feel this is a highly complex case requiring extensive working including EKG/Rhythm strip, Xray/CT/US, Blood/urine lab work, repeat exams while in ED, and administration of strong opiates/narcotics for pain control, admission to hospital or close patient follow up. Diagnosis - dizziness, renal insufficiency, UTI admitted to telemetry in serious condition Labs Test 11/02/17 12:34 White Blood Count 7.7 K/UL (4.8-10.8) Red Blood Count 5.75 M/UL (4.20-5.40) Hemoglobin 13.0 G/DL (12.0-16.0) Hematocrit 46.8 % (37.0-47.0) Mean Corpuscular Volume 81 FL (80-99) Mean Corpuscular Hemoglobin 22.7 PG (27.0-31.0) Mean Corpuscular Hemoglobin Concent 27.8 G/DL (32.0-36.0) Red Cell Distribution Width 18.5 % (11.6-14.8) Platelet Count 223 K/UL (150-450) Mean Platelet Volume 8.2 FL (6.5-10.1) Neutrophils (%) (Auto) 68.6 % (45.0-75.0) Lymphocytes (%) (Auto) 20.9 % (20.0-45.0) Monocytes (%) (Auto) 7.9 % (1.0-10.0) Eosinophils (%) (Auto) 1.6 % (0.0-3.0) Basophils (%) (Auto) 1.0 % (0.0-2.0) Urine Color Brown Urine Appearance Clear Urine pH 6 (4.5-8.0) Urine Specific Bennett 1.015 (1.005-1.035) Urine Protein 3+ (NEGATIVE) Urine Glucose (UA) Negative (NEGATIVE) Urine Ketones Negative (NEGATIVE) Urine Occult Blood 2+ (NEGATIVE) Urine Nitrite Negative (NEGATIVE) Urine Bilirubin 1+ (NEGATIVE) Urine Ictotest Negative Urine Urobilinogen 8 MG/DL (0.0-1.0) Urine Leukocyte Esterase 3+ (NEGATIVE) Urine RBC 2-4 /HPF (0 - 2) Urine WBC 10-15 /HPF (0 - 2) Urine Squamous Epithelial Cells Few /LPF (NONE/OCC) Urine Bacteria Few /HPF (NONE) Sodium Level 144 MMOL/L (136-145) Potassium Level 4.1 MMOL/L (3.5-5.1) Chloride Level 106 MMOL/L (98-107) Carbon Dioxide Level 29 MMOL/L (21-32) Anion Gap 9 mmol/L (5-15) Blood Urea Nitrogen 39 mg/dL (7-18) Creatinine 1.6 MG/DL (0.55-1.30) Estimat Glomerular Filtration Rate 39.3 mL/min (>60) Glucose Level 94 MG/DL (74-106) Calcium Level 8.7 MG/DL (8.5-10.1) Total Bilirubin 2.2 MG/DL (0.2-1.0) Direct Bilirubin 1.1 MG/DL (0.0-0.3) Aspartate Amino Transf (AST/SGOT) 40 U/L (15-37) Alanine Aminotransferase (ALT/SGPT) 27 U/L (12-78) Alkaline Phosphatase 234 U/L (46-116) Total Creatine Kinase 280 U/L (26-308) Creatine Kinase MB 1.9 NG/ML (0.0-3.6) Creatine Kinase MB Relative Index 0.6 Troponin I 0.026 ng/mL (0.000-0.056) Pro-B-Type Natriuretic Peptide 1923 pg/mL (0-125) Total Protein 6.7 G/DL (6.4-8.2) Albumin 2.9 G/DL (3.4-5.0) Globulin 3.8 g/dL Albumin/Globulin Ratio 0.8 (1.0-2.7) EKG Diagnostic Results Rate: normal Rhythm: NSR ST Segments: no acute changes ASA given to the pt in ED: Yes Rhythm Strip Diag. Results EP Interpretation: yes Rhythm: NSR, no PVC's, no ectopy Chest X-Ray Diagnostic Results Chest X-Ray Diagnostic Results : Chest X-Ray Ordered: Yes # of Views/Limited/Complete: 1 View Indication: Other - dizzy EP Interpretation: Yes Interpretation: no consolidation, no effusion, no pneumothorax, no acute cardiopulmonary disease Impression: No acute disease Electronically Signed by: Electronically signed by Cortez Wilson MD Last Vital Signs Date Time Temp Pulse Resp B/P (MAP) Pulse Ox O2 Delivery O2 Flow Rate FiO2 11/02/17 12:33 100 19 131/91 98 Room Air 11/02/17 12:13 96.9 97.0 Status: improved Disposition: ADMITTED INPATIENT Condition: Serious Referrals: FANTA FELIZ (PCP) Cortez Wilson MD Nov 02, 2017 15:21
[2017-11-02 16:08] VITALS: BP 139/95
[2017-11-02 20:00] VITALS: BP 146/116
[2017-11-02] MEDS ORDERED: Miralax 17gm pkt ORAL PRN (21:15)
[2017-11-02] MEDS ORDERED: Atorvastatin 20mg tab ORAL SCH (22:00)
[2017-11-02] MEDS ORDERED: Eliquis 2.5mg tablet ORAL SCH (22:00)
[2017-11-03] VITALS: BP 147/111
--- NOTE | 2017-11-03 01:15 | History and Physical Report ---
DATE OF ADMISSION: 11/02/2017 CHIEF COMPLAINT/REASON FOR HOSPITALIZATION: The patient is a 67-year-old lady, admitted with anasarca, weakness, and dizziness. HISTORY OF PRESENT ILLNESS: The patient has a history of atrial fibrillation, congestive heart failure, hypertension, and morbid obesity. She was recently hospitalized in this hospital and discharged. She states she is feeling very bad with all her medications. She states she feels that her diuretics should be stopped and she gained more than 20 pounds in the last two weeks. She is short of breath, weak, and unable to walk across the room. She has been feeling very lethargic, weak, tired, and blames all on medications. She is also complaining of dizziness and generalized weakness and for this reason, she is admitted. On a prior evaluation, she had diastolic congestive heart failure and paroxysmal atrial fibrillation converted to sinus rhythm with DC conversion and short runs of nonsustained ventricular tachycardia. She had RACHELLE on CKD and COPD on her last admission. SURGERIES: section. She had DC conversion. PAST MEDICAL HISTORY: CVA in 2005 with right-sided weakness and history of peptic ulcer disease. HOME MEDICATIONS: She cannot give list for sure. They are in the chart, but it is not clear if she is currently taking, but per the chart list, she is on Tylenol with codeine, acetaminophen, amiodarone, Eliquis, Lipitor, carvedilol, clonidine, digoxin, diphenhydramine, Lexapro, Lasix, gabapentin, [place], hydrocortisone, inhalation with DuoNeb, losartan, metformin, ondansetron, omeprazole, polyethylene glycol, sildenafil, temazepam, and Januvia. HABITS: She has a history of smoking and history of moderate alcohol use, which she quit 3 months ago. SYSTEM REVIEW: HEENT: The patient's vision is good. ENDOCRINE: History of obesity and diabetes. PULMONARY: History of shortness of breath, smoking, and wheezing. CARDIAC: See above. GASTROINTESTINAL: History of gastritis. GENITOURINARY: No dysuria or hematuria. NEUROLOGIC: History of prior CVA. PHYSICAL EXAMINATION: GENERAL: The patient is alert, morbidly obese lady, sitting at the edge of the bed. VITAL SIGNS: Temperature 97.9, pulse 98, respirations 16, blood pressure 139/95, and pulse oximetry 99% on room air. HEENT: Sclerae are nonicteric. Ocular motions intact in all directions. Oral mucosa moist. NECK: No adenopathy. LUNGS: Diminished breath sounds at the bases. HEART: Rhythm is regular. I hear no murmur at this time. ABDOMEN: Distended with abdominal wall edema and possible ascites and I am unable to feel liver or spleen. EXTREMITIES: Show 2 to 3+ edema. SKIN: Shows excoriations, generalized. NEUROLOGIC: She is alert and oriented. Ocular motions intact in all directions. Smile symmetric. Tongue is midline. She moves all extremities equally. PERTINENT LABORATORY DATA: A chest x-ray done in the emergency room showed no acute disease. Her initial labs show BUN 39 and creatinine 1.6. Normal electrolytes. Elevated alkaline phosphatase and total CK. Troponin 0.026. BNP 1923. Albumin 2.9. Urine shows 3+ protein, 10 to 15 white cells, and 2 to 4 red cells per high-power field. White count 7.7 and hemoglobin 13.9. IMPRESSION: 1. Generalized weakness and dizziness. 2. Morbid obesity. 3. Congestive heart failure with diastolic dysfunction, possible right heart failure. 4. Proteinuria. 5. Paroxysmal atrial flutter. 6. History of polypharmacy. 7. Lethargy. 8. Morbid obesity. 9. Gait disorder. 10. Chronic obstructive pulmonary disease. 11. History of chronic kidney disease, likely stage 3, with proteinuria. 12. Gait disorder. 13. Osteoarthritis of the knees. PLAN: The patient will need diuresis, stabilization of her cardiac medications, and overall improvement of her outpatient management. Details of orders have been given cardiac consultation. Giovanny Carlin M.D. DR: GABBIE JOB#: [id number] CC:
[2017-11-03 04:00] VITALS: BP 137/112
[2017-11-03] MEDS: NovoLOG Insulin Flexpen SUBQ SCH ×4 (06:06→21:00)
[2017-11-03] MEDS: sitaGLIPtin 50mg tab ORAL SCH (06:11)
[2017-11-03 07:37] LABS: BASOPHILS % (AUTO) 1.2 % (0.0-2.0); EOSINOPHILS % (AUTO) 2.2 % (0.0-3.0); HEMATOCRIT 45.2 % (37.0-47.0); HEMOGLOBIN 13.4 G/DL (12.0-16.0); LYMPHOCYTES % (AUTO) 16.5 % (20.0-45.0); MEAN CORPUSCULAR VOLUME 82 FL (80-99); MONOCYTES % (AUTO) 7.4 % (1.0-10.0); NEUTROPHILS % (AUTO) 72.7 % (45.0-75.0); PLATELET COUNT 216 K/UL (150-450); RED BLOOD COUNT 5.54 M/UL (4.20-5.40); RED CELL DISTRIBUTION WIDTH 18.4 % (11.6-14.8); WHITE BLOOD COUNT 6.9 K/UL (4.8-10.8)
[2017-11-03 08:00] VITALS: BP 154/110
[2017-11-03] MEDS: metFORMIN 500mg tab ORAL SCH ×2 (09:05→17:59)
[2017-11-03] MEDS: Digoxin 0.125mg tab ORAL SCH (09:05)
[2017-11-03] MEDS: Amiodarone 200mg tab ORAL SCH (09:05)
[2017-11-03] MEDS: Eliquis 2.5mg tablet ORAL SCH ×2 (09:06→18:00)
[2017-11-03] MEDS: Losartan 25mg tab ORAL SCH (09:06)
[2017-11-03 09:10] LABS: ALANINE AMINOTRANSFERASE 26 U/L (12-78); ALBUMIN 2.8 G/DL (3.4-5.0); ALBUMIN/GLOBULIN RATIO 0.8 (1.0-2.7); ALKALINE PHOSPHATASE 220 U/L (46-116); ANION GAP 10 mmol/L (5-15); ASPARTATE AMINO TRANSFERASE 33 U/L (15-37); BILIRUBIN,TOTAL 2.2 MG/DL (0.2-1.0); BLOOD UREA NITROGEN 33 mg/dL (7-18); CALCIUM 8.4 MG/DL (8.5-10.1); CARBON DIOXIDE 28 MMOL/L (21-32); CHLORIDE 105 MMOL/L (98-107); CREATININE 1.5 MG/DL (0.55-1.30); POTASSIUM 3.7 MMOL/L (3.5-5.1); SODIUM 143 MMOL/L (136-145)
[2017-11-03 12:00] VITALS: BP 157/113
--- NOTE | 2017-11-03 12:43 | General Progress Note ---
Assessment/Plan Problem List: (1) Gait abnormality ICD Codes: R26.9 - Unspecified abnormalities of gait and mobility SNOMED: 40996965 (2) Ventricular tachycardia ICD Codes: I47.2 - Ventricular tachycardia SNOMED: 2328323, 30426645 (3) Morbid (severe) obesity due to excess calories ICD Codes: E66.01 - Morbid (severe) obesity due to excess calories SNOMED: 560950976 (4) Pulmonary hypertension ICD Codes: I27.2 - Other secondary pulmonary hypertension SNOMED: 21281440 (5) HTN (hypertension) ICD Codes: I10 - HTN (hypertension) SNOMED: 47657360 (6) DM (diabetes mellitus) ICD Codes: E11.9 - DM (diabetes mellitus) SNOMED: 36826181 (7) Edema ICD Codes: R60.9 - Edema, unspecified SNOMED: 812311830 (8) COPD (chronic obstructive pulmonary disease) ICD Codes: J44.9 - Chronic obstructive pulmonary disease, unspecified SNOMED: 27251766 (9) Renal insufficiency ICD Codes: N28.9 - Disorder of kidney and ureter, unspecified SNOMED: 293472201, 520920925 Assessment/Plan cardiac eval, diuresi, PT, psych eval as depressed, tele, f/u lab Subjective Constitutional: Reports: weakness HEENT: Reports: no symptoms Cardiovascular: Reports: edema Respiratory: Reports: cough, SOB with excertion Gastrointestinal/Abdominal: Reports: no symptoms Genitourinary: Reports: frequency Neurologic/Psychiatric: Reports: weakness Endocrine: Reports: no symptoms Hematologic/Lymphatic: Reports: no symptoms Allergies: Coded Allergies: ASPIRIN (Verified Allergy, Intermediate, Hives, 01/06/13) PENICILLINS (Verified Allergy, Intermediate, Hives, 01/06/13) Subjective difficulty walking Objective Last 24 Hour Vital Signs Date Time Temp Pulse Resp B/P (MAP) Pulse Ox O2 Delivery O2 Flow Rate FiO2 11/03/17 09:49 Nasal Cannula 2.0 11/03/17 09:06 154/110 11/03/17 09:06 98 154/110 11/03/17 09:05 98 11/03/17 08:00 99 11/03/17 08:00 97.9 98 20 154/110 (125) 96 97.9 11/03/17 04:00 97.0 98 20 137/112 (120) 92 97.0 11/03/17 04:00 82 11/03/17 00:00 98 11/03/17 00:00 98.0 99 20 147/111 (123) 100 98.0 11/02/17 22:48 99 146/116 11/02/17 21:00 Nasal Cannula 2.0 11/02/17 20:00 99 11/02/17 20:00 98.0 99 20 146/116 (126) 96 98.0 11/02/17 18:27 86 99 100 11/02/17 17:29 Room Air 11/02/17 16:08 97.9 98 16 139/95 99 Room Air 97.9 Intake and Output 11/02/17 11/03/17 19:00 07:00 Output Total 200 ml Balance -200 ml Output Urine Total 200 ml # Bowel Movements 1 4 Laboratory Tests 11/03/17 07:00: White Blood Count 6.9, Red Blood Count 5.54H, Hemoglobin 13.4, Hematocrit 45.2, Mean Corpuscular Volume 82, Mean Corpuscular Hemoglobin 24.1L, Mean Corpuscular Hemoglobin Concent 29.6L, Red Cell Distribution Width 18.4H, Platelet Count 216 , Mean Platelet Volume 7.9, Neutrophils (%) (Auto) 72.7, Lymphocytes (%) (Auto) 16.5L, Monocytes (%) (Auto) 7.4, Eosinophils (%) (Auto) 2.2, Basophils (%) (Auto ) 1.2, Sodium Level 143, Potassium Level 3.7, Chloride Level 105, Carbon Dioxide Level 28, Anion Gap 10, Blood Urea Nitrogen 33H, Creatinine 1.5H, Estimat Glomerular Filtration Rate 42.3, Glucose Level 90, Calcium Level 8.4L, Total Bilirubin 2.2H, Direct Bilirubin 1.0H, Aspartate Amino Transf (AST/SGOT) 33, Alanine Aminotransferase (ALT/SGPT) 26, Alkaline Phosphatase 220H, Total Protein 6.5, Albumin 2.8L, Globulin 3.7, Albumin/Globulin Ratio 0.8L Height (Feet): 5 Height (Inches): 3.00 Weight (Pounds): 291 General Appearance: no apparent distress, alert, morbidly obese EENT: normal ENT inspection Neck: normal alignment Cardiovascular: regular rhythm Respiratory/Chest: decreased breath sounds Abdomen: distended, other - abd wll edeema Extremities: no calf tenderness Edema: moderate edema Neurologic: tar man II-XII grossly normal LILIANA GONZALES Nov 03, 2017 12:43
--- NOTE | 2017-11-03 14:12 | Cardiology Report ---
APPROVED REPORT EKG Measurement Heart [id number] Normal sinus rhythm Right bundle branch block Inferior infarct, age undetermined Anterior infarct, age undetermined Abnormal ECG
[2017-11-03 16:00] VITALS: BP 152/81
[2017-11-03 20:00] VITALS: BP 143/109
[2017-11-03] MEDS: Atorvastatin 20mg tab ORAL SCH (21:17)
--- NOTE | 2017-11-03 23:01 | Cardiology Progress Note ---
Assessment/Plan Assessment/Plan The patient is seen and examined, full consult note will be dictated shortly. Objective Last 24 Hour Vital Signs Date Time Temp Pulse Resp B/P (MAP) Pulse Ox O2 Delivery O2 Flow Rate FiO2 11/03/17 21:17 90 143/109 11/03/17 21:00 Nasal Cannula 2.0 11/03/17 20:00 98.4 90 20 143/109 (120) 99 98.4 11/03/17 20:00 99 11/03/17 16:00 97.0 90 20 152/81 (104) 96 97.0 11/03/17 16:00 79 11/03/17 12:00 100 11/03/17 12:00 97.0 100 18 157/113 (128) 96 97.0 11/03/17 09:49 Nasal Cannula 2.0 11/03/17 09:06 154/110 11/03/17 09:06 98 154/110 11/03/17 09:05 98 11/03/17 08:00 99 11/03/17 08:00 97.9 98 20 154/110 (125) 96 97.9 11/03/17 04:00 97.0 98 20 137/112 (120) 92 97.0 11/03/17 04:00 82 11/03/17 00:00 98 11/03/17 00:00 98.0 99 20 147/111 (123) 100 98.0 Intake and Output 11/02/17 11/03/17 19:00 07:00 Output Total 200 ml Balance -200 ml Output Urine Total 200 ml # Bowel Movements 1 4 Laboratory Tests Test 11/03/17 07:00 11/03/17 15:30 White Blood Count 6.9 K/UL (4.8-10.8) Red Blood Count 5.54 M/UL (4.20-5.40) H Hemoglobin 13.4 G/DL (12.0-16.0) Hematocrit 45.2 % (37.0-47.0) Mean Corpuscular Volume 82 FL (80-99) Mean Corpuscular Hemoglobin 24.1 PG (27.0-31.0) L Mean Corpuscular Hemoglobin Concent 29.6 G/DL (32.0-36.0) L Red Cell Distribution Width 18.4 % (11.6-14.8) H Platelet Count 216 K/UL (150-450) Mean Platelet Volume 7.9 FL (6.5-10.1) Neutrophils (%) (Auto) 72.7 % (45.0-75.0) Lymphocytes (%) (Auto) 16.5 % (20.0-45.0) L Monocytes (%) (Auto) 7.4 % (1.0-10.0) Eosinophils (%) (Auto) 2.2 % (0.0-3.0) Basophils (%) (Auto) 1.2 % (0.0-2.0) Sodium Level 143 MMOL/L (136-145) Potassium Level 3.7 MMOL/L (3.5-5.1) Chloride Level 105 MMOL/L (98-107) Carbon Dioxide Level 28 MMOL/L (21-32) Anion Gap 10 mmol/L (5-15) Blood Urea Nitrogen 33 mg/dL (7-18) H Creatinine 1.5 MG/DL (0.55-1.30) H Estimat Glomerular Filtration Rate 42.3 mL/min (>60) Glucose Level 90 MG/DL (74-106) Calcium Level 8.4 MG/DL (8.5-10.1) L Total Bilirubin 2.2 MG/DL (0.2-1.0) H Direct Bilirubin 1.0 MG/DL (0.0-0.3) H Aspartate Amino Transf (AST/SGOT) 33 U/L (15-37) Alanine Aminotransferase (ALT/SGPT) 26 U/L (12-78) Alkaline Phosphatase 220 U/L (46-116) H Total Protein 6.5 G/DL (6.4-8.2) Albumin 2.8 G/DL (3.4-5.0) L Globulin 3.7 g/dL Albumin/Globulin Ratio 0.8 (1.0-2.7) L Urine Random Creatinine Pending Urine Random Microalbumin Pending Urine Microalbumin/Creatinine Ratio Pending Microbiology Date/Time Source Procedure Growth Status 11/02/17 12:34 Urine,Clean Catch Urine Culture - Preliminary Resulted Justice Erickson MD Nov 03, 2017 23:01
[2017-11-04] VITALS: BP 143/84
[2017-11-04 04:00] VITALS: BP 138/98
[2017-11-04] MEDS: NovoLOG Insulin Flexpen SUBQ SCH ×4 (06:25→20:45)
[2017-11-04] MEDS: sitaGLIPtin 50mg tab ORAL SCH (06:27)
[2017-11-04 08:04] VITALS: BP 140/94
[2017-11-04 08:49] LABS: BASOPHILS % (AUTO) 1.2 % (0.0-2.0); EOSINOPHILS % (AUTO) 1.6 % (0.0-3.0); HEMATOCRIT 48.3 % (37.0-47.0); HEMOGLOBIN 13.8 G/DL (12.0-16.0); LYMPHOCYTES % (AUTO) 14.5 % (20.0-45.0); MEAN CORPUSCULAR VOLUME 82 FL (80-99); MONOCYTES % (AUTO) 5.4 % (1.0-10.0); NEUTROPHILS % (AUTO) 77.4 % (45.0-75.0); PLATELET COUNT 222 K/UL (150-450); RED BLOOD COUNT 5.89 M/UL (4.20-5.40); RED CELL DISTRIBUTION WIDTH 18.9 % (11.6-14.8); WHITE BLOOD COUNT 8.3 K/UL (4.8-10.8)
[2017-11-04] MEDS: metFORMIN 500mg tab ORAL SCH ×2 (09:00→17:52)
[2017-11-04] MEDS: Amiodarone 200mg tab ORAL SCH (09:00)
[2017-11-04] MEDS: Losartan 25mg tab ORAL SCH (09:00)
[2017-11-04] MEDS: Digoxin 0.125mg tab ORAL SCH (09:00)
[2017-11-04] MEDS: Eliquis 2.5mg tablet ORAL SCH ×2 (09:01→17:53)
[2017-11-04 09:37] LABS: ANION GAP 8 mmol/L (5-15); BLOOD UREA NITROGEN 32 mg/dL (7-18); CALCIUM 8.6 MG/DL (8.5-10.1); CARBON DIOXIDE 30 MMOL/L (21-32); CHLORIDE 104 MMOL/L (98-107); CREATININE 1.6 MG/DL (0.55-1.30); SODIUM 142 MMOL/L (136-145)
[2017-11-04 11:41] VITALS: BP 151/105
[2017-11-04 15:55] VITALS: BP 136/102
--- NOTE | 2017-11-04 17:51 | General Progress Note ---
Assessment/Plan Problem List: (1) Gait abnormality ICD Codes: R26.9 - Unspecified abnormalities of gait and mobility SNOMED: 22937084 (2) Ventricular tachycardia ICD Codes: I47.2 - Ventricular tachycardia SNOMED: 8764937, 04082604 (3) Morbid (severe) obesity due to excess calories ICD Codes: E66.01 - Morbid (severe) obesity due to excess calories SNOMED: 783273647 (4) Pulmonary hypertension ICD Codes: I27.2 - Other secondary pulmonary hypertension SNOMED: 78312772 (5) HTN (hypertension) ICD Codes: I10 - HTN (hypertension) SNOMED: 03712465 (6) DM (diabetes mellitus) ICD Codes: E11.9 - DM (diabetes mellitus) SNOMED: 82703788 (7) Edema ICD Codes: R60.9 - Edema, unspecified SNOMED: 884310984 (8) COPD (chronic obstructive pulmonary disease) ICD Codes: J44.9 - Chronic obstructive pulmonary disease, unspecified SNOMED: 59359116 (9) Renal insufficiency ICD Codes: N28.9 - Disorder of kidney and ureter, unspecified SNOMED: 534184800, 021406696 Assessment/Plan cardiac eval, diuresi, PT, psych eval as depressed, tele, f/u lab Subjective Constitutional: Reports: weakness HEENT: Reports: no symptoms Respiratory: Reports: cough Gastrointestinal/Abdominal: Reports: no symptoms Genitourinary: Reports: frequency Neurologic/Psychiatric: Reports: weakness Endocrine: Reports: no symptoms Hematologic/Lymphatic: Reports: no symptoms Allergies: Coded Allergies: ASPIRIN (Verified Allergy, Intermediate, Hives, 01/06/13) PENICILLINS (Verified Allergy, Intermediate, Hives, 01/06/13) Subjective difficulty walking, fell no injury Objective Last 24 Hour Vital Signs Date Time Temp Pulse Resp B/P (MAP) Pulse Ox O2 Delivery O2 Flow Rate FiO2 11/04/17 16:00 101 11/04/17 15:55 98.0 102 18 136/102 (113) 100 98.0 11/04/17 12:00 100 11/04/17 11:41 97.2 100 18 151/105 (120) 97 97.2 11/04/17 09:00 Room Air 11/04/17 09:00 140/94 11/04/17 09:00 99 11/04/17 09:00 99 140/94 11/04/17 08:04 96.6 99 18 140/94 (109) 95 96.6 11/04/17 08:00 99 11/04/17 07:20 Nasal Cannula 2.0 28 11/04/17 07:20 99 Nasal Cannula 2.0 28 11/04/17 04:00 98 11/04/17 04:00 97.7 99 20 138/98 (111) 94 97.7 11/04/17 00:00 97.9 99 18 143/84 (103) 98 97.9 11/04/17 00:00 100 11/03/17 21:17 90 143/109 11/03/17 21:00 99 Nasal Cannula 2.0 28 11/03/17 21:00 Nasal Cannula 2.0 11/03/17 21:00 Nasal Cannula 2.0 28 11/03/17 20:00 98.4 90 20 143/109 (120) 99 98.4 11/03/17 20:00 99 Intake and Output 11/03/17 11/04/17 19:00 07:00 Intake Total 720 ml Balance 720 ml Intake Oral 720 ml # Voids 4 # Bowel Movements 2 4 Laboratory Tests 11/04/17 08:00: White Blood Count 8.3, Red Blood Count 5.89H, Hemoglobin 13.8, Hematocrit 48.3H , Mean Corpuscular Volume 82, Mean Corpuscular Hemoglobin 23.4L, Mean Corpuscular Hemoglobin Concent 28.5L, Red Cell Distribution Width 18.9H, Platelet Count 222, Mean Platelet Volume 8.4, Neutrophils (%) (Auto) 77.4H, Lymphocytes (%) (Auto) 14.5L, Monocytes (%) (Auto) 5.4, Eosinophils (%) (Auto) 1.6, Basophils (%) (Auto) 1.2, Sodium Level 142, Potassium Level 4.0, Chloride Level 104, Carbon Dioxide Level 30, Anion Gap 8, Blood Urea Nitrogen 32H, Creatinine 1.6H, Estimat Glomerular Filtration Rate 39.3, Glucose Level 78, Calcium Level 8.6, Thyroid Stimulating Hormone (TSH) 5.764H, Free Thyroxine 1.58H Height (Feet): 5 Height (Inches): 3.00 Weight (Pounds): 285 General Appearance: alert, morbidly obese EENT: normal ENT inspection Neck: normal alignment Cardiovascular: normal rate Respiratory/Chest: lungs clear Abdomen: non tender, distended, other - abd wall edema Edema: moderate edema LILIANA GONZALES Nov 04, 2017 17:50
[2017-11-04 20:00] VITALS: BP 152/100
[2017-11-04] MEDS: Atorvastatin 20mg tab ORAL SCH (20:35)
[2017-11-05] VITALS: BP 148/97
[2017-11-05 04:00] VITALS: BP 139/95
--- NOTE | 2017-11-05 04:00 | Consultation ---
DATE OF CONSULTATION: 11/03/2017 CARDIOLOGY CONSULTATION CONSULTING PHYSICIAN: Justice Erickson M.D. REFERRING PHYSICIAN: Giovanny Carlin M.D. REASON FOR CONSULTATION: Management of tachycardia. HISTORY OF PRESENT ILLNESS: This is a very pleasant 67-year-old female, known to me, from both [facility] and [facility] in [place], acute rehabilitation admission, who has a history of atrial flutter, status post RAMIRO and cardioversion in this facility, history of right heart failure with severe dilatation of right atrial and ventricular cavities with associated anasarca, history of normal LV systolic function and wall motion with left ventricular ejection fraction of approximately 55%, noncompliant with medication according to her due to intolerance to heart failure regimen, history of morbid obesity, history of polysubstance abuse in the past, history of diabetes mellitus, and history of hypertension, who presented to the hospital for one day of feeling of dizziness and feeling of presyncope with near blackouts. She had one episode of fall and hit her head a day before arrival to this hospital. She was taken to another outside hospital and had a CT of head, which was negative. She was discharged from that facility, however, dizziness continued and decided to come to this hospital for further evaluation and management. PAST MEDICAL HISTORY: 1. History of paroxysmal atrial flutter, status post RAMIRO and cardioversion at [facility]. 2. History of right heart failure with dilatation of RA and RV possibly due to chronic obstructive pulmonary disease and obstructive sleep apnea/obesity hypoventilation syndrome. 3. History of hypertension. 4. History of diabetes mellitus. 5. History of noncompliance with medication. 6. History of recent admission to acute rehabilitation facility at [facility]. 7. History of anasarca due to right heart failure. 8. History of chronic kidney disease. 9. History of hypothyroidism. 10. History of normal LV systolic function with LVEF of approximately 55%. 11. Peripheral neuropathy. 12. GERD. PAST SURGICAL HISTORY: RAMIRO and cardioversion. LIST OF MEDICATIONS: 1. Acetaminophen 650 mg q.4 h. p.r.n. pain. 2. Amiodarone 200 mg p.o. daily. 3. Apixaban 2.5 mg p.o. q.12 hours. 4. Atorvastatin 20 mg p.o. at bedtime. 5. Carvedilol 3.125 mg p.o. twice daily. 6. Catapres 0.1 mg three times a day p.r.n. systolic blood pressure above 160. 7. Digoxin 0.125 mg daily. 8. Diphenhydramine 25 mg at bedtime. 9. Lexapro 10 mg p.o. daily. 10. Lasix 40 mg p.o. daily. 11. Gabapentin 300 mg twice daily. 12. Hydrocortisone cream. 13. Sixes 10/325 mg q.4 h. p.r.n. pain. 14. Insulin aspart. 15. DuoNeb 3 mL HHN q.4 h. p.r.n. shortness of breath. 16. Losartan 25 mg daily. 17. Metformin 1000 mg p.o. twice daily. 18. Prilosec 20 mg p.o. daily. 19. Zofran 4 mg p.o. q.6 hours p.r.n. nausea and vomiting. 20. MiraLAX 17 g p.r.n. constipation. 21. Sildenafil 20 mg p.o. three times a day. 22. Januvia 100 mg p.o. daily. 23. Temazepam 15 mg p.o. at bedtime. ALLERGIES: Aspirin and penicillin. FAMILY HISTORY: No premature coronary artery disease or arrhythmogenic deaths in the first-degree relatives. SOCIAL HISTORY: Polysubstance abuse in the past including tobacco and illicit drugs. Currently, not smoking cigarettes and not drinking alcohol. REVIEW OF SYSTEMS: HEENT: Denies any headache, diplopia, or blurred vision, but complains of dizziness and lightheadedness. CONSTITUTIONAL: Complains of generalized weakness, fatigue, and tiredness. She has no fever, chills, night sweats, or weight loss. The patient in fact has gained some weight. CARDIOVASCULAR: Denies any chest pain. She has got shortness of breath with less than ordinary activities, worsening of lower extremity edema, and also presyncope. PULMONARY: Denies any cough, hemoptysis, or wheezing. GASTROINTESTINAL: Denies any nausea, vomiting, diarrhea, constipation, abdominal pain, or GI bleed. GENITOURINARY: Denies any hematuria, dysuria, or incontinence. NEUROLOGY: Denies any motor dysfunction, sensory deficit, or altered speech. MUSCULOSKELETAL: Bilateral lower extremity edema. PHYSICAL EXAMINATION: VITAL SIGNS: Blood pressure was 131/71, respirations 20, pulse of 100, temperature 96.9 degrees Fahrenheit, and O2 saturation 100% on room air. GENERAL: The patient is a very unfortunate morbidly obese 67-year-old female, in no respiratory distress. HEENT: Atraumatic and normocephalic. Anicteric. Pupils are equal, round, and reactive to light and accommodation. Extraocular muscles intact. NECK: We cannot assess JVP at this time. No carotid bruit. Carotid upstrokes 2+ bilaterally. CARDIOVASCULAR: Normal S1, S2. No murmurs, gallops, or rubs. Tachycardic. A 2/6 holosystolic murmur at the apex. LUNGS: Coarse breath sounds with bilateral wheezing. Scattered crackles in the bases. ABDOMEN: Soft, nontender, and nondistended. No hepatosplenomegaly. Positive bowel sounds. EXTREMITIES: There is 1+ to 2+ bilateral lower extremity edema. LABORATORY FINDINGS: Sodium was 144, potassium is 4.1, chloride 106, bicarbonate 29, BUN 39, creatinine 1.6, glucose is 94, and calcium is 8.7. Troponin I is 0.026. ProBNP was 1923. TSH was 5.764. WBC 7.7, hemoglobin of 13.0, hematocrit of 46.0, and platelet count is 223,000. Chest x-ray, no acute cardiopulmonary disease. A 12-lead electrocardiogram, atrial tachycardia versus flutter at a rate of 100. ASSESSMENT AND PLAN: This is a very unfortunate 67-year-old female seen in Cardiology consultation at the request of Dr. Carlin. 1. Probably recurrent atrial arrhythmia. A 12-lead electrocardiogram clearly shows that the T-wave is inverted, atrial tachycardia versus atrial flutter. I think the patient will continue and carvedilol. She had a RAMIRO and cardioversion about a few months ago in this hospital due to a very clear-cut typical atrial flutter. She will continue on amiodarone as well. 2. Right heart failure with anasarca. Continue digoxin at this point. Gentle use of diuretics also recommended. 3. History of chronic diastolic heart failure. Continue furosemide for destruction. Prior history of nonsustained ventricular tachycardia. 4. History of tachycardia-induced cardiomyopathy with atrial flutter. She improved following cardioversion of atrial flutter to sinus rhythm. 5. History of hypertension. 6. History of acute on chronic kidney disease. 7. History of chronic obstructive pulmonary disease. I would like to thank, Dr. Carlin, for the courtesy of this consultation. Jusitce Erickson M.D. DR: MONICO JOB#: [id number] CC:
[2017-11-05] MEDS: NovoLOG Insulin Flexpen SUBQ SCH ×4 (06:28→20:47)
[2017-11-05] MEDS: sitaGLIPtin 50mg tab ORAL SCH (06:28)
[2017-11-05 07:28] LABS: ANION GAP 8 mmol/L (5-15); BLOOD UREA NITROGEN 30 mg/dL (7-18); CALCIUM 8.3 MG/DL (8.5-10.1); CARBON DIOXIDE 31 MMOL/L (21-32); CHLORIDE 103 MMOL/L (98-107); CREATININE 1.7 MG/DL (0.55-1.30); POTASSIUM 3.9 MMOL/L (3.5-5.1); SODIUM 142 MMOL/L (136-145)
[2017-11-05 08:00] VITALS: BP 164/103
--- NOTE | 2017-11-05 08:18 | General Progress Note ---
Assessment/Plan Problem List: (1) Gait abnormality ICD Codes: R26.9 - Unspecified abnormalities of gait and mobility SNOMED: 87861689 (2) Ventricular tachycardia ICD Codes: I47.2 - Ventricular tachycardia SNOMED: 3788097, 90203902 (3) Morbid (severe) obesity due to excess calories ICD Codes: E66.01 - Morbid (severe) obesity due to excess calories SNOMED: 072897573 (4) Pulmonary hypertension ICD Codes: I27.2 - Other secondary pulmonary hypertension SNOMED: 61675687 (5) HTN (hypertension) ICD Codes: I10 - HTN (hypertension) SNOMED: 33462951 (6) DM (diabetes mellitus) ICD Codes: E11.9 - DM (diabetes mellitus) SNOMED: 90156478 (7) Edema ICD Codes: R60.9 - Edema, unspecified SNOMED: 742374592 (8) COPD (chronic obstructive pulmonary disease) ICD Codes: J44.9 - Chronic obstructive pulmonary disease, unspecified SNOMED: 21309799 (9) Renal insufficiency ICD Codes: N28.9 - Disorder of kidney and ureter, unspecified SNOMED: 518183169, 995118130 Assessment/Plan cardiac eval, diuresi, PT, psych eval as depressed, tele, f/u lab severe anasarca, diarrhea check c diff Subjective Constitutional: Reports: weakness HEENT: Reports: no symptoms Cardiovascular: Reports: palpitations Respiratory: Reports: SOB with excertion Gastrointestinal/Abdominal: Reports: diarrhea Genitourinary: Reports: no symptoms Neurologic/Psychiatric: Reports: no symptoms Endocrine: Reports: no symptoms Allergies: Coded Allergies: ASPIRIN (Verified Allergy, Intermediate, Hives, 01/06/13) PENICILLINS (Verified Allergy, Intermediate, Hives, 01/06/13) Subjective difficulty walking, fell no injury Objective Last 24 Hour Vital Signs Date Time Temp Pulse Resp B/P (MAP) Pulse Ox O2 Delivery O2 Flow Rate FiO2 11/05/17 04:00 89 11/05/17 04:00 97.4 99 20 139/95 (110) 96 97.4 11/05/17 00:00 97.6 100 20 148/97 (114) 98 97.6 11/05/17 00:00 99 11/04/17 21:00 98 Nasal Cannula 2.0 28 11/04/17 21:00 Room Air 11/04/17 21:00 Nasal Cannula 2.0 28 11/04/17 20:35 102 151/103 11/04/17 20:00 101 11/04/17 20:00 98.1 101 20 152/100 (117) 98 98.1 11/04/17 16:00 101 11/04/17 15:55 98.0 102 18 136/102 (113) 100 98.0 11/04/17 12:00 100 11/04/17 11:41 97.2 100 18 151/105 (120) 97 97.2 11/04/17 09:00 Room Air 11/04/17 09:00 140/94 11/04/17 09:00 99 11/04/17 09:00 99 140/94 Intake and Output 11/04/17 11/05/17 19:00 07:00 Intake Total 540 ml Output Total 500 ml 500 ml Balance 40 ml -500 ml Intake Oral 540 ml Output Urine Total 500 ml 500 ml # Bowel Movements 6 3 Laboratory Tests 11/05/17 05:40: Sodium Level 142, Potassium Level 3.9, Chloride Level 103, Carbon Dioxide Level 31, Anion Gap 8, Blood Urea Nitrogen 30H, Creatinine 1.7H, Estimat Glomerular Filtration Rate 36.6, Glucose Level 75, Calcium Level 8.3L, Digoxin Level < 0.2L Height (Feet): 5 Height (Inches): 3.00 Weight (Pounds): 285 General Appearance: no apparent distress, morbidly obese EENT: normal ENT inspection Neck: normal alignment, supple Cardiovascular: normal rate Respiratory/Chest: lungs clear, decreased breath sounds Abdomen: other - abd wall edema Extremities: no calf tenderness Edema: moderate edema 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
[2017-11-05] MEDS: Eliquis 2.5mg tablet ORAL SCH ×2 (08:38→18:19)
[2017-11-05] MEDS: Digoxin 0.125mg tab ORAL SCH (08:38)
[2017-11-05] MEDS: metFORMIN 500mg tab ORAL SCH ×2 (08:38→18:18)
[2017-11-05] MEDS: Amiodarone 200mg tab ORAL SCH (08:38)
[2017-11-05] MEDS: Losartan 25mg tab ORAL SCH (08:38)
[2017-11-05 12:00] VITALS: BP 155/102
[2017-11-05 16:00] VITALS: BP 153/103
--- NOTE | 2017-11-05 19:56 | Cardiology Progress Note ---
Assessment/Plan Assessment/Plan 1. Probably atrial tachcyardia, non-compliant with diet and meds. s/p RAMIRO and cardioversion about a few months ago in this hospital for typical atrial flutter. 2. Right heart failure with anasarca. Continue digoxin and diuretics. 3. History of chronic diastolic heart failure. Continue furosemide 4. Prior history of nonsustained ventricular tachycardia, keep Mg >2.5. 5. History of tachycardia-induced cardiomyopathy with atrial flutter, improved following cardioversion of atrial flutter to sinus rhythm. 6. History of hypertension. 7. History of acute on chronic kidney disease. 8. History of chronic obstructive pulmonary disease. Subjective Subjective Probably atrial tachycardia at 92. Objective Last 24 Hour Vital Signs Date Time Temp Pulse Resp B/P (MAP) Pulse Ox O2 Delivery O2 Flow Rate FiO2 11/05/17 16:00 92 11/05/17 16:00 97.0 97 20 153/103 (120) 100 97.0 11/05/17 12:00 100 11/05/17 12:00 97.6 81 20 155/102 (119) 97 97.6 11/05/17 09:00 Room Air 11/05/17 08:38 164/103 11/05/17 08:38 89 11/05/17 08:37 89 164/103 11/05/17 08:00 98.0 89 20 164/103 (123) 99 98.0 11/05/17 08:00 99 11/05/17 04:00 89 11/05/17 04:00 97.4 99 20 139/95 (110) 96 97.4 11/05/17 00:00 97.6 100 20 148/97 (114) 98 97.6 11/05/17 00:00 99 11/04/17 21:00 98 Nasal Cannula 2.0 28 11/04/17 21:00 Room Air 11/04/17 21:00 Nasal Cannula 2.0 28 11/04/17 20:35 102 151/103 11/04/17 20:00 101 11/04/17 20:00 98.1 101 20 152/100 (117) 98 98.1 Intake and Output 11/04/17 11/05/17 19:00 07:00 Intake Total 540 ml Output Total 500 ml 500 ml Balance 40 ml -500 ml Intake Oral 540 ml Output Urine Total 500 ml 500 ml # Bowel Movements 6 3 2D Echo: EF 45%,Global LV HK,Sev RA/RV dilation,RVSP 81mmHg,Mild AR/MR,Grade II LVDD Laboratory Tests Test 11/05/17 05:40 Sodium Level 142 MMOL/L (136-145) Potassium Level 3.9 MMOL/L (3.5-5.1) Chloride Level 103 MMOL/L (98-107) Carbon Dioxide Level 31 MMOL/L (21-32) Anion Gap 8 mmol/L (5-15) Blood Urea Nitrogen 30 mg/dL (7-18) H Creatinine 1.7 MG/DL (0.55-1.30) H Estimat Glomerular Filtration Rate 36.6 mL/min (>60) Glucose Level 75 MG/DL (74-106) Calcium Level 8.3 MG/DL (8.5-10.1) L Digoxin Level < 0.2 NG/ML (0.9-2.0) L Objective HEENT: Atraumatic and normocephalic. Anicteric. Pupils are equal, round, and reactive to light and accommodation. Extraocular muscles intact. NECK: We cannot assess JVP at this time. No carotid bruit. Carotid upstrokes 2+ bilaterally. CARDIOVASCULAR: Normal S1, S2. No murmurs, gallops, or rubs. Tachycardic. A 2/6 holosystolic murmur at the apex. LUNGS: Coarse breath sounds with bilateral wheezing. Scattered crackles in the bases. ABDOMEN: Soft, nontender, and nondistended. No hepatosplenomegaly. Positive bowel sounds. EXTREMITIES: There is 1+ to 2+ bilateral lower extremity edema. Justice Erickson MD Nov 05, 2017 19:56
[2017-11-05 20:00] VITALS: BP 154/99
[2017-11-05] MEDS: Atorvastatin 20mg tab ORAL SCH (20:47)
[2017-11-06] VITALS: BP 159/85
[2017-11-06] MEDS: NovoLOG Insulin Flexpen SUBQ SCH ×3 (06:30→16:30)
[2017-11-06] MEDS: sitaGLIPtin 50mg tab ORAL SCH (06:40)
[2017-11-06 08:00] VITALS: BP 145/99
[2017-11-06 08:49] LABS: ANION GAP 9 mmol/L (5-15); BLOOD UREA NITROGEN 29 mg/dL (7-18); CALCIUM 8.4 MG/DL (8.5-10.1); CARBON DIOXIDE 30 MMOL/L (21-32); CHLORIDE 104 MMOL/L (98-107); CREATININE 1.6 MG/DL (0.55-1.30); POTASSIUM 4.2 MMOL/L (3.5-5.1); SODIUM 143 MMOL/L (136-145)
[2017-11-06] MEDS: Eliquis 2.5mg tablet ORAL SCH (09:31)
[2017-11-06] MEDS: Digoxin 0.125mg tab ORAL SCH (09:31)
[2017-11-06] MEDS: Amiodarone 200mg tab ORAL SCH (09:32)
[2017-11-06] MEDS: metFORMIN 500mg tab ORAL SCH (09:32)
[2017-11-06] MEDS: Losartan 25mg tab ORAL SCH (09:32)
[2017-11-06 12:00] VITALS: BP 137/61
--- NOTE | 2017-11-06 13:01 | Cardiology Progress Note ---
Assessment/Plan Assessment/Plan 1. Probably atrial tachcyardia, non-compliant with diet and meds. s/p RAMIRO and successful cardioversion about a few months ago in this hospital with typical atrial flutter conversion to SR. Continue amiodarone. 2. Right heart failure with anasarca. Continue digoxin and diuretics. 3. History of chronic diastolic heart failure. Continue furosemide 4. Prior history of nonsustained ventricular tachycardia, keep Mg >2.5. 5. History of tachycardia-induced cardiomyopathy with atrial flutter, improved following cardioversion of atrial flutter to sinus rhythm. 6. History of hypertension. 7. History of acute on chronic kidney disease. 8. History of chronic obstructive pulmonary disease. Subjective Subjective Probably atrial tachycardia at 100. Objective Last 24 Hour Vital Signs Date Time Temp Pulse Resp B/P (MAP) Pulse Ox O2 Delivery O2 Flow Rate FiO2 11/06/17 09:33 100 145/99 11/06/17 09:32 145/99 11/06/17 09:31 100 11/06/17 09:00 Room Air 11/06/17 08:00 100 11/06/17 08:00 97.8 100 20 145/99 (114) 95 97.8 11/06/17 03:49 99 11/06/17 00:00 97.8 104 20 159/85 (109) 98 97.8 11/05/17 23:36 100 11/05/17 21:00 Room Air 11/05/17 20:47 100 154/99 11/05/17 20:00 97.9 100 20 154/99 (117) 100 97.9 11/05/17 19:56 99 11/05/17 16:00 92 11/05/17 16:00 97.0 97 20 153/103 (120) 100 97.0 Intake and Output 11/05/17 11/06/17 19:00 07:00 Intake Total 720 ml 300 ml Output Total 400 ml 1000 ml Balance 320 ml -700 ml Intake Oral 720 ml 300 ml Output Urine Total 400 ml 1000 ml # Bowel Movements 7 1 2D Echo: EF 45%,Global LV HK,Sev RA/RV dilation,RVSP 81mmHg,Mild AR/MR,Grade II LVDD Laboratory Tests Test 11/06/17 05:00 11/06/17 07:35 Urine Random Total Protein 46 MG/DL (< 11.9) H Urine Creatinine 60.3 MG/DL (30.0-125.0) Sodium Level 143 MMOL/L (136-145) Potassium Level 4.2 MMOL/L (3.5-5.1) Chloride Level 104 MMOL/L (98-107) Carbon Dioxide Level 30 MMOL/L (21-32) Anion Gap 9 mmol/L (5-15) Blood Urea Nitrogen 29 mg/dL (7-18) H Creatinine 1.6 MG/DL (0.55-1.30) H Estimat Glomerular Filtration Rate 39.3 mL/min (>60) Glucose Level 100 MG/DL (74-106) Calcium Level 8.4 MG/DL (8.5-10.1) L Microbiology Date/Time Source Procedure Growth Status 11/05/17 08:45 Stool Clostridium difficile Toxin Assay - Final Complete Objective GENERAL: The patient is a very unfortunate morbidly obese 67-year-old female, in no respiratory distress. HEENT: Atraumatic and normocephalic. Anicteric. Pupils are equal, round, and reactive to light and accommodation. Extraocular muscles intact. NECK: We cannot assess JVP at this time. No carotid bruit. Carotid upstrokes 2+ bilaterally. CARDIOVASCULAR: Normal S1, S2. No murmurs, gallops, or rubs. Tachycardic. A 2/6 holosystolic murmur at the apex. LUNGS: Coarse breath sounds with bilateral wheezing. Scattered crackles in the bases. ABDOMEN: Soft, nontender, and nondistended. No hepatosplenomegaly. Positive bowel sounds. EXTREMITIES: There is 1+ to 2+ bilateral lower extremity edema. Justice Erickson MD Nov 06, 2017 13:01
[2017-11-06] MEDS ORDERED: POTASSIUM CHLO20 ME1 ORAL (13:17)
[2017-11-06] MEDS ORDERED: FUROSEMIDE80 M1 ORAL (13:30)
--- NOTE | 2017-11-06 19:35 | Consultation ---
History of Present Illness General Date patient seen: Nov 03, 2017 Chief Complaint: Dizziness Present Illness HPI 67-year-old female,with hx of depression and anxiety who came in for dizziness. the pt pw depressed mood and anxiety she has been c/o dizziness. the pt has fatigue and insomnia/ no si/hi Allergies: Coded Allergies: ASPIRIN (Verified Allergy, Intermediate, Hives, 01/06/13) PENICILLINS (Verified Allergy, Intermediate, Hives, 01/06/13) Medication History Scheduled Amiodarone Hcl* (Cordarone*), 200 MG ORAL DAILY, (Reported) Apixaban (Eliquis), 5 MG PO Q12HR, (Reported) Apixaban (Eliquis), 5 MG PO BID, (Reported) Atorvastatin Calcium* (Lipitor*), 20 MG ORAL DAILY, (Reported) Carvedilol (Coreg), 3.125 MG ORAL EVERY 12 HOURS, (Reported) Digoxin* (Digoxin*), 0.125 MG ORAL DAILY, (Reported) Diphenhydramine Hcl* (Diphenhydramine Hcl*), 25 MG ORAL QHS, (Reported) Escitalopram Oxalate* (Lexapro*), 10 MG ORAL DAILY, (Reported) Furosemide* (Lasix*), 40 MG ORAL DAILY, (Reported) Furosemide* (Lasix*), 80 MG ORAL BID, (Reported) Gabapentin* (Gabapentin*), 300 MG ORAL BID, (Reported) Hydrocortisone/Aloe Vera (Hydrocortisone Plus 1% Cream), 28.4 GM TP TID, ( Reported) Insulin Aspart* (Novolog*), 0 SUBQ AC+HS, (Reported) Losartan Potassium* (Losartan Potassium*), 25 MG ORAL DAILY, (Reported) Metformin Hcl* (Metformin Hcl*), 1,000 MG ORAL BID, (Reported) Omeprazole (Prilosec), 20 MG ORAL DAILY, (Reported) Potassium Chloride* (K-Dur*), 20 MEQ ORAL TWICE A DAY Sildenafil Citrate (Sildenafil), 20 MG ORAL TID, (Reported) Sitagliptin (Januvia), 100 MG ORAL DAILY, (Reported) Scheduled PRN Acetaminophen With Codeine (T#3) (Tylenol #3 Tab*), 1 TAB ORAL Q6HR PRN for For Pain, (Reported) Acetaminophen* (Acetaminophen 325MG Tablet*), 650 MG ORAL Q4H PRN for Mild Pain/ Temp > 100.5, (Reported) Clonidine Hcl* (Catapres*), 0.1 MG ORAL TID PRN for elevated sbp, (Reported) Hydrocodone Bit/Acetaminophen 10-325* ([place] 10-325*), 1 TAB ORAL Q4H PRN for For Pain, (Reported) Hydrocodone/Acetaminophen (Hydrocodon-Acetaminophn 10-325), 1 TAB ORAL Q4H PRN for For Pain, (Reported) Ipratropium/Albuterol Sulfate (DuoNeb 0.5-3(2.5)mg/3ml), 3 ML HHN Q4HR PRN for Shortness of Breath, (Reported) Ondansetron* (Zofran*), 4 MG ORAL Q6H PRN for Nausea & Vomiting, (Reported) Polyethylene Glycol 3350* (Miralax*), 17 GM ORAL DAILY PRN for Constipation, ( Reported) Temazepam* (Restoril*), 15 MG ORAL BEDTIME PRN for Insomnia, (Reported) Miscellaneous Medications Hc/Mineral Oil/Petrolat,Wht 1% (Hydrocortisone 1% Absorbase), 25 GM TP, ( Reported) Hydrocortisone/Aloe Vera (Hydrocortisone Plus 1% Cream), 28.4 GM TP, (Reported) Hydrocortisone/Aloe Vera (Hydrocortisone Plus 1% Cream), 28.4 GM TP, (Reported) Patient History Limited by: medical condition History Provided By: Patient, Medical Record, PMD Healthcare decision maker Resuscitation status Advanced Directive on File Past Medical/Surgical History Past Medical/Surgical History: (1) chest pain (2) Scabies (3) Fibroids (4) Intractable abdominal pain (5) Elevated transaminase level (6) Nonhealing ulcer of left lower extremity (7) Bilateral lower leg cellulitis (8) Soft palate edema (9) Tobacco user (10) Pulmonary edema (11) ARF (acute renal failure) (12) Acute chest pain (13) Acute bronchitis (14) Fever (15) COPD (chronic obstructive pulmonary disease) (16) Pulmonary hypertension (17) Edema (18) Gait abnormality (19) Ventricular tachycardia (20) HTN (hypertension) (21) DM (diabetes mellitus) (22) Morbid (severe) obesity due to excess calories Review of Systems Psychiatric: Reports: prior hx, anxiety, depressed feelings, emotional problems Physical Exam General Appearance: no apparent distress, alert Neurologic: oriented x 3, responsive, depressed affect Last 24 Hour Vital Signs Date Time Temp Pulse Resp B/P (MAP) Pulse Ox O2 Delivery O2 Flow Rate FiO2 11/06/17 12:00 98.1 70 20 137/61 (86) 95 98.1 11/06/17 12:00 89 11/06/17 09:33 100 145/99 11/06/17 09:32 145/99 11/06/17 09:31 100 11/06/17 09:00 Room Air 11/06/17 08:00 100 11/06/17 08:00 97.8 100 20 145/99 (114) 95 97.8 11/06/17 03:49 99 11/06/17 00:00 97.8 104 20 159/85 (109) 98 97.8 11/05/17 23:36 100 11/05/17 21:00 Room Air 11/05/17 20:47 100 154/99 11/05/17 20:00 97.9 100 20 154/99 (117) 100 97.9 11/05/17 19:56 99 Intake and Output 11/05/17 11/06/17 19:00 07:00 Intake Total 720 ml 300 ml Output Total 400 ml 1000 ml Balance 320 ml -700 ml Intake Oral 720 ml 300 ml Output Urine Total 400 ml 1000 ml # Bowel Movements 7 1 Laboratory Tests Test 11/06/17 05:00 11/06/17 07:35 Urine Random Total Protein 46 MG/DL (< 11.9) H Urine Creatinine 60.3 MG/DL (30.0-125.0) Sodium Level 143 MMOL/L (136-145) Potassium Level 4.2 MMOL/L (3.5-5.1) Chloride Level 104 MMOL/L (98-107) Carbon Dioxide Level 30 MMOL/L (21-32) Anion Gap 9 mmol/L (5-15) Blood Urea Nitrogen 29 mg/dL (7-18) H Creatinine 1.6 MG/DL (0.55-1.30) H Estimat Glomerular Filtration Rate 39.3 mL/min (>60) Glucose Level 100 MG/DL (74-106) Calcium Level 8.4 MG/DL (8.5-10.1) L Height (Feet): 5 Height (Inches): 3.00 Weight (Pounds): 300 Assessment/Plan Status: stable Assessment/Plan MDD Anxiety d/o Lexapro 10mg qam provided /Hannah Kamara MD Nov 06, 2017 19:35
--- NOTE | 2017-11-06 19:42 | General Progress Note ---
Assessment/Plan Status: stable, progressing Assessment/Plan MDD Anxiety d/o Lexapro 10mg qam provided st/ro Subjective Date patient seen: Nov 06, 2017 Neurologic/Psychiatric: Reports: anxiety, depressed, emotional problems Allergies: Coded Allergies: ASPIRIN (Verified Allergy, Intermediate, Hives, 01/06/13) PENICILLINS (Verified Allergy, Intermediate, Hives, 01/06/13) Objective Last 24 Hour Vital Signs Date Time Temp Pulse Resp B/P (MAP) Pulse Ox O2 Delivery O2 Flow Rate FiO2 11/06/17 12:00 98.1 70 20 137/61 (86) 95 98.1 11/06/17 12:00 89 11/06/17 09:33 100 145/99 11/06/17 09:32 145/99 11/06/17 09:31 100 11/06/17 09:00 Room Air 11/06/17 08:00 100 11/06/17 08:00 97.8 100 20 145/99 (114) 95 97.8 11/06/17 03:49 99 11/06/17 00:00 97.8 104 20 159/85 (109) 98 97.8 11/05/17 23:36 100 11/05/17 21:00 Room Air 11/05/17 20:47 100 154/99 11/05/17 20:00 97.9 100 20 154/99 (117) 100 97.9 11/05/17 19:56 99 Intake and Output 11/05/17 11/06/17 19:00 07:00 Intake Total 720 ml 300 ml Output Total 400 ml 1000 ml Balance 320 ml -700 ml Intake Oral 720 ml 300 ml Output Urine Total 400 ml 1000 ml # Bowel Movements 7 1 Laboratory Tests 11/06/17 05:00: Urine Random Total Protein 46H, Urine Creatinine 60.3 11/06/17 07:35: Sodium Level 143, Potassium Level 4.2, Chloride Level 104, Carbon Dioxide Level 30, Anion Gap 9, Blood Urea Nitrogen 29H, Creatinine 1.6H, Estimat Glomerular Filtration Rate 39.3, Glucose Level 100, Calcium Level 8.4L Height (Feet): 5 Height (Inches): 3.00 Weight (Pounds): 300 General Appearance: no apparent distress, alert Neurologic: oriented x 3, responsive, depressed affect Hannah Bradley MD Nov 06, 2017 19:42
--- NOTE | 2017-11-07 01:16 | Discharge Summary ---
DATE OF ADMISSION: 11/02/2017 DATE OF DISCHARGE: 11/06/2017 PERTINENT HISTORY: The patient is a 67-year-old lady, admitted with anasarca, weakness, and dizziness. She has history of paroxysmal atrial fibrillation and flutter, CHF, hypertension, morbid obesity, and diabetes. PERTINENT PHYSICAL FINDINGS: See the dictated History and Physical for full details. GENERAL: She is morbidly obese, sitting at the edge of the bed. LUNGS: Diminished breath sounds at the bases. HEART: Rhythm is regular. No murmur heard. ABDOMEN: Distended with abdominal wall edema and possible ascites. EXTREMITIES: Show 2 to 3+ edema. SKIN: Shows excoriations generalized. NEUROLOGIC: She is alert and oriented. COURSE IN THE HOSPITAL: The patient was diuresed and monitored for arrhythmias and watch closely. She was seen in cardiology consult by Dr. Erickson. She responded well to diuresis. She had nonsustained arrhythmias during this admission. The patient had mild elevation of BUN and creatinine of proteinuria consistent with diabetic nephropathy, which contributed to her anasarca. With diuresis and adjustment of her medications, she felt much better. On the day of discharge, her vital signs were stable. Her lungs were clear. Heart, regular rhythm. Abdomen still has abdominal wall edema and distention. Extremities show 2+ edema she was [facility], she has had difficulty walking. FINAL DIAGNOSES: 1. Anasarca. 2. Congestive heart failure, right-sided. 3. Diabetic nephropathy. 4. History of supraventricular arrhythmias. 5. History of anticoagulation with apixaban. 6. Gait disorder. 7. Recurrent falls. 8. Right heart failure. 9. Chronic diastolic heart failure. 10. History of tachycardia-induced cardiomyopathy with atrial flutter. 11. History of hypertension. 12. History of COPD. 13. Osteoarthritis. DISCHARGE DISPOSITION: 2 g sodium diet and medications per the discharge medication list. Follow up by Dr. Carlin. Giovanny Carlin M.D. DR: Melvin JOB#: [id number] CC:
== END 2017-11-06 17:23 | DRG 292 ==
LOC: EMR 14:20 → 2E 14:30 → EDBEDREQ 14:48
DX: I13.0 Hypertensive heart and chronic kidney disease with heart failure and stage 1 through stage 4 chronic kidney disease, or unspecified chronic kidney disease (principal); I48.92 Unspecified atrial flutter; I47.2 Ventricular tachycardia; Z68.43 Body mass index [BMI] 50.0-59.9, adult; I50.32 Chronic diastolic (congestive) heart failure; N18.3 Chronic kidney disease, stage 3 (moderate); I27.20 Pulmonary hypertension, unspecified; E66.01 Morbid (severe) obesity due to excess calories; R26.9 Unspecified abnormalities of gait and mobility; M17.11 Unilateral primary osteoarthritis, right knee; E11.22 Type 2 diabetes mellitus with diabetic chronic kidney disease; E03.9 Hypothyroidism, unspecified; E11.42 Type 2 diabetes mellitus with diabetic polyneuropathy; J44.9 Chronic obstructive pulmonary disease, unspecified; F32.9 Major depressive disorder, single episode, unspecified; F41.9 Anxiety disorder, unspecified; R29.6 Repeated falls; K21.9 Gastro-esophageal reflux disease without esophagitis; Z88.0 Allergy status to penicillin; Z91.11 Patient's noncompliance with dietary regimen; Z91.14 Patient's other noncompliance with medication regimen; Z87.891 Personal history of nicotine dependence
CPT/HCPCS: 36415; 71045; 80048; 80053; 80162; 81003; 82043; 82044; 82248; 82550; 82553; 82570; 82962; 83880; 84439; 84443; 84484; 85025; 87081; 87086; 87324; 93005; 94760; 99285; J1815; J8499

== ENCOUNTER 2017-12-07 09:26 | Outpatient (RCR) | payer MEDICARE, MEDICAID ==
[~2017-12-07] VITALS: Ht 160 cm; Wt 73.0 kg
[~2017-12-07 09:26] MED LIST changes: +ACETAMINOPHEN-1 EAC1 ORAL; +AMIODARONE HCL200 MG ORAL; +DIPHENHYDRAMINE25 M1 ORAL; +FUROSEMIDE80 M1 ORAL; +LEXAPRO10 MG ORAL; +POTASSIUM CHLO20 ME1 ORAL
== END 2017-12-25 | disposition home or self-care (01) ==
LOC: WCC 09:26
DX: L97.822 Non-pressure chronic ulcer of other part of left lower leg with fat layer exposed (principal); L98.492 Non-pressure chronic ulcer of skin of other sites with fat layer exposed; I70.248 Atherosclerosis of native arteries of left leg with ulceration of other part of lower leg; Z79.82 Long term (current) use of aspirin; E11.9 Type 2 diabetes mellitus without complications; I10 Essential (primary) hypertension; Z86.73 Personal history of transient ischemic attack (TIA), and cerebral infarction without residual deficits; E78.00 Pure hypercholesterolemia, unspecified; Z87.891 Personal history of nicotine dependence; Z88.0 Allergy status to penicillin; Z88.6 Allergy status to analgesic agent
CPT/HCPCS: 11042; C5271; Q4124; Q4102

== ENCOUNTER 2017-12-30 13:29 | Outpatient (RCR) | payer MEDICARE, MEDICAID ==
[~2017-12-30] VITALS: Ht 160 cm; Wt 73.0 kg
== END 2018-01-24 | disposition home or self-care (01) ==
LOC: WCC 13:29
DX: L97.822 Non-pressure chronic ulcer of other part of left lower leg with fat layer exposed (principal); L98.492 Non-pressure chronic ulcer of skin of other sites with fat layer exposed; I70.248 Atherosclerosis of native arteries of left leg with ulceration of other part of lower leg; Z88.0 Allergy status to penicillin; Z88.6 Allergy status to analgesic agent; E11.9 Type 2 diabetes mellitus without complications; I10 Essential (primary) hypertension; G81.91 Hemiplegia, unspecified affecting right dominant side; E78.00 Pure hypercholesterolemia, unspecified; Z79.82 Long term (current) use of aspirin
CPT/HCPCS: 11042; 11043; 29580

== ENCOUNTER 2018-01-25 09:42 | Outpatient (RCR) | payer MEDICARE, MEDICAID | END 2018-02-24 | disposition home or self-care (01) | LOC: WCC 09:42 | DX: L97.822 Non-pressure chronic ulcer of other part of left lower leg with fat layer exposed (principal); L98.492 Non-pressure chronic ulcer of skin of other sites with fat layer exposed; I70.248 Atherosclerosis of native arteries of left leg with ulceration of other part of lower leg; E11.9 Type 2 diabetes mellitus without complications; I10 Essential (primary) hypertension; Z86.73 Personal history of transient ischemic attack (TIA), and cerebral infarction without residual deficits; E78.00 Pure hypercholesterolemia, unspecified; Z79.82 Long term (current) use of aspirin; Z88.0 Allergy status to penicillin; Z88.6 Allergy status to analgesic agent | CPT/HCPCS: 11043 ==

== ENCOUNTER 2018-03-15 13:39 | Outpatient (RCR) | payer MEDICARE, MEDICAID | END 2018-03-26 | disposition home or self-care (01) | LOC: WCC 13:39 | DX: L97.822 Non-pressure chronic ulcer of other part of left lower leg with fat layer exposed (principal); L98.492 Non-pressure chronic ulcer of skin of other sites with fat layer exposed; I70.248 Atherosclerosis of native arteries of left leg with ulceration of other part of lower leg; E11.9 Type 2 diabetes mellitus without complications; I10 Essential (primary) hypertension; G81.91 Hemiplegia, unspecified affecting right dominant side; E78.00 Pure hypercholesterolemia, unspecified; Z87.891 Personal history of nicotine dependence; Z88.0 Allergy status to penicillin; Z88.6 Allergy status to analgesic agent | CPT/HCPCS: 11042 ==

== ENCOUNTER 2018-03-31 11:21 | Outpatient (RCR) | payer MEDICARE, MEDICAID | END 2018-04-26 | disposition home or self-care (01) | LOC: WCC 11:21 | DX: L97.822 Non-pressure chronic ulcer of other part of left lower leg with fat layer exposed (principal); L98.492 Non-pressure chronic ulcer of skin of other sites with fat layer exposed; I70.248 Atherosclerosis of native arteries of left leg with ulceration of other part of lower leg; Z88.0 Allergy status to penicillin; Z88.6 Allergy status to analgesic agent; Z87.891 Personal history of nicotine dependence; E11.622 Type 2 diabetes mellitus with other skin ulcer | CPT/HCPCS: 11042; 11043 ==

== ENCOUNTER 2018-05-03 10:55 | Outpatient (RCR) | payer MEDICARE, MEDICAID | END 2018-05-27 | disposition home or self-care (01) | LOC: WCC 10:55 | DX: L97.822 Non-pressure chronic ulcer of other part of left lower leg with fat layer exposed (principal); L98.492 Non-pressure chronic ulcer of skin of other sites with fat layer exposed; E11.622 Type 2 diabetes mellitus with other skin ulcer; I70.248 Atherosclerosis of native arteries of left leg with ulceration of other part of lower leg; Z88.0 Allergy status to penicillin; Z88.6 Allergy status to analgesic agent; L97.812 Non-pressure chronic ulcer of other part of right lower leg with fat layer exposed; E11.9 Type 2 diabetes mellitus without complications; I10 Essential (primary) hypertension; E78.00 Pure hypercholesterolemia, unspecified; Z86.73 Personal history of transient ischemic attack (TIA), and cerebral infarction without residual deficits; Z79.82 Long term (current) use of aspirin | CPT/HCPCS: 11042; 15271; Q4106; Q4101 ==

== ENCOUNTER 2018-05-12 12:52 | Inpatient (IN) | payer MEDICARE, MEDICAID ==
[~2018-05-12] VITALS: Ht 160 cm; Wt 140.6 kg
--- NOTE | 2018-05-12 13:10 | NUR ---
ED Nurse Note: patient wheelchaired into ED c/o of bilateral leg pain, at time of arrival patient does have 2 wounds located in both lower legs. the one on the left leg is about 1 inch in diameter, wound picture was taken
[2018-05-12 13:44] LABS: BASOPHILS % (AUTO) 1.3 % (0.0-2.0); EOSINOPHILS % (AUTO) 0.2 % (0.0-3.0); HEMATOCRIT 47.1 % (37.0-47.0); HEMOGLOBIN 13.5 G/DL (12.0-16.0); LYMPHOCYTES % (AUTO) 18.5 % (20.0-45.0); MEAN CORPUSCULAR VOLUME 85 FL (80-99); MONOCYTES % (AUTO) 8.8 % (1.0-10.0); NEUTROPHILS % (AUTO) 71.2 % (45.0-75.0); PLATELET COUNT 237 K/UL (150-450); RED BLOOD COUNT 5.52 M/UL (4.20-5.40); WHITE BLOOD COUNT 7.9 K/UL (4.8-10.8)
[2018-05-12 14:10] LABS: ALANINE AMINOTRANSFERASE 44 U/L (12-78); ALBUMIN 3.5 G/DL (3.4-5.0); ALBUMIN/GLOBULIN RATIO 0.7 (1.0-2.7); ALKALINE PHOSPHATASE 283 U/L (46-116); ANION GAP 14 mmol/L (5-15); ASPARTATE AMINO TRANSFERASE 136 U/L (15-37); BILIRUBIN,TOTAL 4.1 MG/DL (0.2-1.0); BLOOD UREA NITROGEN 40 mg/dL (7-18); CALCIUM 9.5 MG/DL (8.5-10.1); CARBON DIOXIDE 24 MMOL/L (21-32); CHLORIDE 101 MMOL/L (98-107); POTASSIUM 5.4 MMOL/L (3.5-5.1); SODIUM 139 MMOL/L (136-145)
[2018-05-12 14:17] LABS: CREATININE 3.1 MG/DL (0.55-1.30)
[2018-05-12] MEDS ORDERED: Morphine Sulfate 4mg/ml Inj (IV/IM USE ONLY) IVP ONE (14:30)
--- NOTE | 2018-05-12 14:44 | Emergency Room Report ---
History of Present Illness General Chief Complaint: Edema Source: Patient Present Illness HPI 67-year-old female presents ED for evaluation. Patient states that she's got worsening pain and swelling to her lower extremities. Has chronic venous ulcers in her legs. Being managed by Dr. Carmen. States there is increased swelling and pain to the lower extremities. Pain is throbbing, 9 out of 10, nonradiating. Denies any fevers or chills. No other aggravating relieving factors. Denies any other associated symptoms Allergies: Coded Allergies: ASPIRIN (Verified Allergy, Intermediate, Hives, 01/06/13) PENICILLINS (Verified Allergy, Intermediate, Hives, 01/06/13) Patient History Past Medical History: DM, HTN, COPD Past Surgical History: other - chronic venous ulcers Pertinent Family History: none Social History: Denies: smoking, alcohol use, drug use Now: No Immunizations: UTD Reviewed Nursing Documentation: PMH: Agreed; PSxH: Agreed Nursing Documentation-PMH Past Medical History: No History, Except For Hx Cardiac Problems: Yes - AFIBB Hx Hypertension: Yes Hx Pacemaker: No Hx Asthma: No Hx COPD: Yes Hx Diabetes: Yes - DM II Hx Cancer: No Hx Gastrointestinal Problems: Yes Hx Dialysis: No Hx Neurological Problems: Yes Hx Seizures: No Hx Peripheral Neuropathy: Yes Review of Systems All Other Systems: negative except mentioned in HPI Physical Exam Vital Signs Date Time Temp Pulse Resp B/P (MAP) Pulse Ox O2 Delivery O2 Flow Rate FiO2 05/12/18 13:03 98.4 66 18 118/75 97 Room Air Sp02 EP Interpretation: reviewed, normal General Appearance: no apparent distress, alert, GCS 15, non-toxic Head: normocephalic, atraumatic Eyes: bilateral eye normal inspection, bilateral eye PERRL ENT: hearing grossly normal, normal pharynx, no angioedema, normal voice Neck: full range of motion, supple/symm/no masses Respiratory: chest non-tender, lungs clear, normal breath sounds, speaking full sentences Cardiovascular #1: regular rate, rhythm, no edema Cardiovascular #2: 2+ carotid (R), 2+ carotid (L), 2+ radial (R), 2+ radial (L) , 2+ dorsalis pedis (R), 2+ dorsalis pedis (L) Gastrointestinal: normal bowel sounds, non tender, soft, non-distended, no guarding, no rebound Rectal: deferred Genitourinary: normal inspection, no CVA tenderness Musculoskeletal: back normal, gait/station normal, normal range of motion, swelling Neurologic: alert, oriented x3, responsive, motor strength/tone normal, sensory intact, speech normal Psychiatric: judgement/insight normal, memory normal, mood/affect normal, no suicidal/homicidal ideation Reflexes: 3+ bicep (R), 3+ bicep (L), 3+ tricep (R), 3+ tricep (L), 3+ knee (R) , 3+ knee (L) Skin: well hydrated, other - venous stasis ulcers to bilateral lower extremities Lymphatic: no adenopathy Medical Decision Making Diagnostic Impression: Primary Impression: Venous stasis ulcers of both lower extremities Additional Impressions: Cellulitis of both lower extremities ARF (acute renal failure) Qualified Codes: N17.9 - Acute kidney failure, unspecified ER Course Hospital Course 67 yo F presents to ED c/o swelling, pain to bilateral LEs. currently being managed for venous stasis ulcers Differential diagnoses include: Cellulitis, abscess, rash. Clinical course Patient placed on stretcher. After initial history and physical I ordered labs , blood Cx, UA, IVFs, pain meds labs reviewed - no leukocytosis, Hb/Hct stable, K 5.4, Cr 3.1 EKG - NSR, no acute ischemic changes interpreted by me kayexelate given. antibiotics given. Case discussed with Dr Mckinney and he agreed to accept the patient to his service for further care and support Dr Carmen will consult Diagnosis - venous stasis ulcers of both lower extremities, cellulitis of both lower extremities, ARF Patient admitted to floor in serious condition Labs Test 05/12/18 13:23 05/12/18 14:15 White Blood Count 7.9 K/UL (4.8-10.8) Red Blood Count 5.52 M/UL (4.20-5.40) Hemoglobin 13.5 G/DL (12.0-16.0) Hematocrit 47.1 % (37.0-47.0) Mean Corpuscular Volume 85 FL (80-99) Mean Corpuscular Hemoglobin 24.5 PG (27.0-31.0) Mean Corpuscular Hemoglobin Concent 28.7 G/DL (32.0-36.0) Red Cell Distribution Width 19.0 % (11.6-14.8) Platelet Count 237 K/UL (150-450) Mean Platelet Volume 8.4 FL (6.5-10.1) Neutrophils (%) (Auto) 71.2 % (45.0-75.0) Lymphocytes (%) (Auto) 18.5 % (20.0-45.0) Monocytes (%) (Auto) 8.8 % (1.0-10.0) Eosinophils (%) (Auto) 0.2 % (0.0-3.0) Basophils (%) (Auto) 1.3 % (0.0-2.0) Sodium Level 139 MMOL/L (136-145) Potassium Level 5.4 MMOL/L (3.5-5.1) Chloride Level 101 MMOL/L (98-107) Carbon Dioxide Level 24 MMOL/L (21-32) Anion Gap 14 mmol/L (5-15) Blood Urea Nitrogen 40 mg/dL (7-18) Creatinine 3.1 MG/DL (0.55-1.30) Estimat Glomerular Filtration Rate 18.3 mL/min (>60) Glucose Level 79 MG/DL (74-106) Calcium Level 9.5 MG/DL (8.5-10.1) Total Bilirubin 4.1 MG/DL (0.2-1.0) Direct Bilirubin 0.0 MG/DL (0.0-0.3) Aspartate Amino Transf (AST/SGOT) 136 U/L (15-37) Alanine Aminotransferase (ALT/SGPT) 44 U/L (12-78) Alkaline Phosphatase 283 U/L (46-116) Total Protein 8.3 G/DL (6.4-8.2) Albumin 3.5 G/DL (3.4-5.0) Globulin 4.8 g/dL Albumin/Globulin Ratio 0.7 (1.0-2.7) EKG Diagnostic Results Rate: normal Rhythm: NSR ST Segments: no acute changes ASA given to the pt in ED: No Rhythm Strip Diag. Results EP Interpretation: yes Rhythm: NSR, no PVC's, no ectopy Last Vital Signs Date Time Temp Pulse Resp B/P (MAP) Pulse Ox O2 Delivery O2 Flow Rate FiO2 05/12/18 13:03 98.4 66 18 118/75 97 Room Air Status: improved Disposition: ADMITTED INPATIENT Condition: Serious Referrals: NON PHYSICIAN (PCP) Cortez Wilson MD May 12, 2018 14:44
[2018-05-12] MEDS ORDERED: Sodium Polystyrene Sulfonate 15gm Powder ORAL ONE (14:45)
[2018-05-12 15:00] VITALS: BP 118/75
--- NOTE | 2018-05-12 15:10 | NUR ---
ED Nurse Note: Patient tolerated transfer well, report given to LUCIO Benitez
--- NOTE | 2018-05-12 15:24 | Infectious Diseases Prog Note ---
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 will oreder MRI of the right foot to rule out deep abscess or osteomyelitis (2) Nonhealing ulcer of left lower extremity Assessment & Plan: will send wound culture , and start wide spectrum antibiotics , D/W plastic , continue local wound care and dressings change as per wound care service (3) Painful legs and moving toes Assessment & Plan: suspect due to the above , will order venous doppler to rule out DVT (4) CKD (chronic kidney disease) Assessment & Plan: avoid nephrotoxics , renally dosed antibiotics as per pharmacy (5) DM (diabetes mellitus) Assessment & Plan: recommend tight glycemic control to keep blood glucose between 100-140 Subjective Allergies: Coded Allergies: ASPIRIN (Verified Allergy, Intermediate, Hives, 01/06/13) PENICILLINS (Verified Allergy, Intermediate, Hives, 01/06/13) Objective Vital Signs Last 24 Hour Vital Signs Date Time Temp Pulse Resp B/P (MAP) Pulse Ox O2 Delivery O2 Flow Rate FiO2 05/12/18 14:55 98.4 05/12/18 13:03 98.4 66 18 118/75 97 Room Air Height (Feet): 5 Height (Inches): 3.00 Weight (Pounds): 200 Laboratory Tests Test 05/12/18 13:23 05/12/18 14:15 White Blood Count 7.9 K/UL (4.8-10.8) Red Blood Count 5.52 M/UL (4.20-5.40) H Hemoglobin 13.5 G/DL (12.0-16.0) Hematocrit 47.1 % (37.0-47.0) H Mean Corpuscular Volume 85 FL (80-99) Mean Corpuscular Hemoglobin 24.5 PG (27.0-31.0) L Mean Corpuscular Hemoglobin Concent 28.7 G/DL (32.0-36.0) L Red Cell Distribution Width 19.0 % (11.6-14.8) H Platelet Count 237 K/UL (150-450) Mean Platelet Volume 8.4 FL (6.5-10.1) Neutrophils (%) (Auto) 71.2 % (45.0-75.0) Lymphocytes (%) (Auto) 18.5 % (20.0-45.0) L Monocytes (%) (Auto) 8.8 % (1.0-10.0) Eosinophils (%) (Auto) 0.2 % (0.0-3.0) Basophils (%) (Auto) 1.3 % (0.0-2.0) Sodium Level 139 MMOL/L (136-145) Potassium Level 5.4 MMOL/L (3.5-5.1) H Chloride Level 101 MMOL/L (98-107) Carbon Dioxide Level 24 MMOL/L (21-32) Anion Gap 14 mmol/L (5-15) Blood Urea Nitrogen 40 mg/dL (7-18) H Creatinine 3.1 MG/DL (0.55-1.30) H Estimat Glomerular Filtration Rate 18.3 mL/min (>60) Glucose Level 79 MG/DL (74-106) Calcium Level 9.5 MG/DL (8.5-10.1) Total Bilirubin 4.1 MG/DL (0.2-1.0) H Direct Bilirubin 0.0 MG/DL (0.0-0.3) Aspartate Amino Transf (AST/SGOT) 136 U/L (15-37) H Alanine Aminotransferase (ALT/SGPT) 44 U/L (12-78) Alkaline Phosphatase 283 U/L (46-116) H Total Protein 8.3 G/DL (6.4-8.2) H Albumin 3.5 G/DL (3.4-5.0) Globulin 4.8 g/dL Albumin/Globulin Ratio 0.7 (1.0-2.7) L Lactic Acid Level Pending Current Medications Medications (Trade) Dose Ordered Sig/Toya Route PRN Reason Start Time Stop Time Status Last Admin Dose Admin Aztreonam 2 gm/ Dextrose 110 ml @ 220 mls/hr Q8HR IVPB 05/12/18 15:00 05/19/18 14:59 UNV Clindamycin HCl/ Dextrose 50 ml @ 100 mls/hr Q8HR IVPB 05/12/18 22:00 05/19/18 21:59 UNV Juice Wilkerson M.D. May 12, 2018 15:24
--- NOTE | 2018-05-12 15:57 | NUR ---
NURSE NOTES: RN SPOKE TO PABLO, CHECK OUT CLERK, AND MADE AWARE OF STAT MRI ORDERS. DR JOHNSON WAS AT BEDSIDE WITH PT WITH ORDERS FROM ARTERIAL AND VENOUS DUPLEX, WOUND CARE ORDERS AND CONSULT WITH DR. FIERRO.
[2018-05-12] MEDS ORDERED: Aztreonam Inj 2 GM in D5W 110 ML IVPB ONE (16:00)
[2018-05-12 16:45] VITALS: BP 120/75
[2018-05-12] MEDS ORDERED: Norco 5mg/325mg tab ORAL PRN (17:00)
[2018-05-12] MEDS ORDERED: metFORMIN 500mg tab ORAL SCH (18:00)
--- NOTE | 2018-05-12 18:30 | NUR ---
NURSE NOTES: DR VALLE MADE AWARE OF ELEVATED BUN AND CREATININE. ORDERS TO D/C METFORMIN AND NS BOLUS 500CC X1.
--- NOTE | 2018-05-12 18:49 | NUR ---
NURSE NOTES: PT ARRIVED ON UNIT IN STABLE CONDITION. VSS. PT IS DROWSY, AND UNABLE TO FULLY ANSWER RN'S QUESTIONS. FALLS ASLEEP IN THE MIDDLE OF QUESTIONING. UNABLE TO OBATIN FLU AND PNA VACCINE HISTORY. WOUND DRESSINGS DONE ORDERED. PT REFUSED STAT MRI. RN AND MONTESS[employer]I TODDLER TEACHER AT BEDSIDE WITH PT WHEN PT REFUSED. RN MADE DR KHAN AWARE, WITH NEW ORDERS FOR STAT LEFT AND RIGHT CT TIB/FIB AND RIGHT FOOT WITHOUT CONTRAST. RN ENTERED ORDERS AND PT AGREED TO CT. PT ON 2L NC O2. IN NO APPARENT DISTRESS AT THIS TIME. BED IN LOWEST POSITION WITH BEDSIDE RAILS X2 RAISED. CALL LIGHT WITHIN REACH. WILL CONTINUE TO MONITOR.
--- NOTE | 2018-05-12 19:14 | NUR ---
HAND-OFF: Report given to LOLLY BONILLA RN.
--- NOTE | 2018-05-12 19:24 | NUR ---
NURSE NOTES: Received patient asleep in bed, no signs of acute distress. Dinner on the bedside, untouched. On nasal cannula at 2L/min. IV site Left thumb running NS at 100ml/hr. IV site and dressing dry, intact, with no signs of irritation. 3 side rails up, bed on lowest position, call light within reach, bed alarm on.
--- NOTE | 2018-05-12 19:43 | Consultation ---
History of Present Illness General Date patient seen: May 12, 2018 Time patient seen: 19:07 Reason for Consultation: Left lower leg wounds Present Illness HPI Patient known to me from the outpatient wound center where she was seen on for chronic non healing LLE ulcers. She had significant pain in her LEs and increased swelling in her RLE with blister formation on her right anterior LE and great toe that she developed several days prior. It was recommended that she go directly to ER for work up and likely admission for her pain, swelling, and blisters. She presented today to the ER today where she was seen by ID and podiatry for her RLE and foot. Asked to evaluate her for her LLE ulcers. Currently she is in bed. She is drowsy but opens her eyes and answers questions. Allergies: Coded Allergies: ASPIRIN (Verified Allergy, Intermediate, Hives, 01/06/13) PENICILLINS (Verified Allergy, Intermediate, Hives, 01/06/13) Medication History Scheduled Amiodarone Hcl* (Cordarone*), 200 MG ORAL DAILY, (Reported) Apixaban (Eliquis), 5 MG PO Q12HR, (Reported) Apixaban (Eliquis), 5 MG PO BID, (Reported) Atorvastatin Calcium* (Lipitor*), 20 MG ORAL DAILY, (Reported) Carvedilol (Coreg), 3.125 MG ORAL EVERY 12 HOURS, (Reported) Digoxin* (Digoxin*), 0.125 MG ORAL DAILY, (Reported) Diphenhydramine Hcl* (Diphenhydramine Hcl*), 25 MG ORAL QHS, (Reported) Escitalopram Oxalate* (Lexapro*), 10 MG ORAL DAILY, (Reported) Furosemide* (Lasix*), 40 MG ORAL DAILY, (Reported) Furosemide* (Lasix*), 80 MG ORAL BID, (Reported) Gabapentin* (Gabapentin*), 300 MG ORAL BID, (Reported) Hydrocortisone/Aloe Vera (Hydrocortisone Plus 1% Cream), 28.4 GM TP TID, ( Reported) Insulin Aspart* (Novolog*), 0 SUBQ AC+HS, (Reported) Losartan Potassium* (Losartan Potassium*), 25 MG ORAL DAILY, (Reported) Metformin Hcl* (Metformin Hcl*), 1,000 MG ORAL BID, (Reported) Omeprazole (Prilosec), 20 MG ORAL DAILY, (Reported) Potassium Chloride* (K-Dur*), 20 MEQ ORAL TWICE A DAY Sildenafil Citrate (Sildenafil), 20 MG ORAL TID, (Reported) Sitagliptin (Januvia), 100 MG ORAL DAILY, (Reported) Scheduled PRN Acetaminophen With Codeine (T#3) (Tylenol #3 Tab*), 1 TAB ORAL Q6HR PRN for For Pain, (Reported) Acetaminophen* (Acetaminophen 325MG Tablet*), 650 MG ORAL Q4H PRN for Mild Pain/ Temp > 100.5, (Reported) Clonidine Hcl* (Catapres*), 0.1 MG ORAL TID PRN for elevated sbp, (Reported) Hydrocodone Bit/Acetaminophen 10-325* ([place] 10-325*), 1 TAB ORAL Q4H PRN for For Pain, (Reported) Hydrocodone/Acetaminophen (Hydrocodon-Acetaminophn 10-325), 1 TAB ORAL Q4H PRN for For Pain, (Reported) Ipratropium/Albuterol Sulfate (DuoNeb 0.5-3(2.5)mg/3ml), 3 ML HHN Q4HR PRN for Shortness of Breath, (Reported) Ondansetron* (Zofran*), 4 MG ORAL Q6H PRN for Nausea & Vomiting, (Reported) Polyethylene Glycol 3350* (Miralax*), 17 GM ORAL DAILY PRN for Constipation, ( Reported) Temazepam* (Restoril*), 15 MG ORAL BEDTIME PRN for Insomnia, (Reported) Miscellaneous Medications Hc/Mineral Oil/Petrolat,Wht 1% (Hydrocortisone 1% Absorbase), 25 GM TP, ( Reported) Hydrocortisone/Aloe Vera (Hydrocortisone Plus 1% Cream), 28.4 GM TP, (Reported) Hydrocortisone/Aloe Vera (Hydrocortisone Plus 1% Cream), 28.4 GM TP, (Reported) Patient History History Provided By: Patient, Medical Record Healthcare decision maker Resuscitation status Full Code Advanced Directive on File Past Medical/Surgical History Past Medical/Surgical History: (1) Pulmonary hypertension (2) COPD (chronic obstructive pulmonary disease) (3) Morbid (severe) obesity due to excess calories (4) HTN (hypertension) (5) DM (diabetes mellitus) (6) CKD (chronic kidney disease) Review of Systems Constitutional: Reports: no symptoms Musculoskeletal: Reports: other - LE edema Skin: Reports: lesions Psychiatric: Reports: no symptoms Physical Exam General Appearance: lethargic, morbidly obese Lines, tubes and drains: peripheral Extremities: moderate edema Skin Exam: other - LLE: Two ulcers with granular base, superficial with no slough. Periskin without maceration. Mild edema in LLE. RLE with moderate edema. Right foot feels cooler than left. Blister on dorsal great and third toes. Swelling in foot extending to LE. Mild erythema in right foot. No crepitus and areas of gangrene. Last 24 Hour Vital Signs Date Time Temp Pulse Resp B/P (MAP) Pulse Ox O2 Delivery O2 Flow Rate FiO2 05/12/18 18:41 Nasal Cannula 2.0 05/12/18 16:45 98.1 66 20 120/75 (90) 95 05/12/18 15:00 98.4 72 18 118/75 97 Room Air 05/12/18 14:55 98.4 05/12/18 13:24 66 18 Room Air 05/12/18 13:03 98.4 66 18 118/75 97 Room Air Laboratory Tests Test 05/12/18 13:23 05/12/18 14:15 White Blood Count 7.9 K/UL (4.8-10.8) Red Blood Count 5.52 M/UL (4.20-5.40) H Hemoglobin 13.5 G/DL (12.0-16.0) Hematocrit 47.1 % (37.0-47.0) H Mean Corpuscular Volume 85 FL (80-99) Mean Corpuscular Hemoglobin 24.5 PG (27.0-31.0) L Mean Corpuscular Hemoglobin Concent 28.7 G/DL (32.0-36.0) L Red Cell Distribution Width 19.0 % (11.6-14.8) H Platelet Count 237 K/UL (150-450) Mean Platelet Volume 8.4 FL (6.5-10.1) Neutrophils (%) (Auto) 71.2 % (45.0-75.0) Lymphocytes (%) (Auto) 18.5 % (20.0-45.0) L Monocytes (%) (Auto) 8.8 % (1.0-10.0) Eosinophils (%) (Auto) 0.2 % (0.0-3.0) Basophils (%) (Auto) 1.3 % (0.0-2.0) Sodium Level 139 MMOL/L (136-145) Potassium Level 5.4 MMOL/L (3.5-5.1) H Chloride Level 101 MMOL/L (98-107) Carbon Dioxide Level 24 MMOL/L (21-32) Anion Gap 14 mmol/L (5-15) Blood Urea Nitrogen 40 mg/dL (7-18) H Creatinine 3.1 MG/DL (0.55-1.30) H Estimat Glomerular Filtration Rate 18.3 mL/min (>60) Glucose Level 79 MG/DL (74-106) Calcium Level 9.5 MG/DL (8.5-10.1) Total Bilirubin 4.1 MG/DL (0.2-1.0) H Direct Bilirubin 0.0 MG/DL (0.0-0.3) Aspartate Amino Transf (AST/SGOT) 136 U/L (15-37) H Alanine Aminotransferase (ALT/SGPT) 44 U/L (12-78) Alkaline Phosphatase 283 U/L (46-116) H Total Protein 8.3 G/DL (6.4-8.2) H Albumin 3.5 G/DL (3.4-5.0) Globulin 4.8 g/dL Albumin/Globulin Ratio 0.7 (1.0-2.7) L Lactic Acid Level 4.40 mmol/L (0.4-2.0) H Height (Feet): 5 Height (Inches): 3.00 Weight (Pounds): 200 Medications Current Medications Medications (Trade) Dose Ordered Sig/Toya Route PRN Reason Start Time Stop Time Status Last Admin Dose Admin Acetaminophen/ Hydrocodone Bitart ([place] 5/325) 1 tab Q4H PRN ORAL Moderate Pain (Pain Scale 4-6) 05/12/18 17:00 05/19/18 16:59 Aztreonam 1 gm/ Dextrose 55 ml @ 110 mls/hr Q8HR@0000,0800,1600 IVPB 05/13/18 00:00 05/20/18 00:00 Clindamycin HCl/ Dextrose 50 ml @ 100 mls/hr Q8HR IV 05/12/18 22:00 05/19/18 21:59 Dextrose (Dextrose 50%) 25 ml Q30M PRN IV Hypoglycemia 05/12/18 17:00 06/11/18 16:59 Dextrose (Dextrose 50%) 50 ml Q30M PRN IV Hypoglycemia 05/12/18 17:00 06/11/18 16:59 Furosemide (Lasix) 40 mg DAILY ORAL 05/13/18 09:00 06/12/18 08:59 Gabapentin (Neurontin) 300 mg Q12HR ORAL 05/12/18 21:00 06/11/18 20:59 Heparin Sodium (Porcine) (Heparin 5000 units/ml) 5,000 units EVERY 12 HOURS SUBQ 05/12/18 21:00 06/11/18 20:59 Insulin Aspart (NovoLOG) BEFORE MEALS AND HS SUBQ 05/12/18 21:00 06/11/18 20:59 Pantoprazole (Protonix) 40 mg DAILY ORAL 05/13/18 09:00 06/12/18 08:59 Sitagliptin Phosphate (Januvia) 100 mg ACBREAKFAST ORAL 05/13/18 06:30 06/12/18 06:29 Temazepam (Restoril) 15 mg HSPRN PRN ORAL Insomnia 05/12/18 17:00 05/19/18 16:59 Assessment/Plan Assessment/Plan Patient's LLE ulcers are stable and unchanged from the exam on 05/10/18. Her drainage from the ulcers is minimal. She will benefit from xereform to the ulcers and dry dressing without compression. Her mild edema on the left should respond to her left leg being up in bed. No need for debridement of the ulcers at this time. Discussed with DULCE Lindsay who will start her on antibiotics for possible cellulitis as well as ordering an MRI. Discussed with Dr. Barrera from podiatry who feels she may have an arterial outflow issue in her RLE and will order arterial doppler studies and contact vascular surgery to evaluate. Of note patient just received morphine which may explain her drowsiness. Terry Carmen MD May 12, 2018 19:43
[2018-05-12 20:00] VITALS: BP 122/75
[2018-05-12] MEDS: NovoLOG Insulin Flexpen SUBQ SCH (21:00)
--- NOTE | 2018-05-12 21:15 | Consultation ---
DATE OF CONSULTATION: 05/12/2018 INFECTIOUS DISEASE CONSULTATION CONSULTING PHYSICIAN: Juice Wilkerson M.D. REQUESTING PHYSICIAN: Margaret Mckinney M.D. REASON FOR CONSULTATION: Severe right lower extremity infection with blistering of the skin and chronic left leg nonhealing wound. Recommendation for antibiotics treatment in a patient who has penicillin allergy. HISTORY OF PRESENT ILLNESS: The patient is a 67-year-old -[place] female with past medical history of diabetes, hypertension, COPD, and chronic venous ulcers, mainly on the left lower extremity who has been managed by wound care for the last year or so, presented to [facility] emergency room for worsening lower extremity pain and swelling with skin blistering, which started a week ago after she dropped a speaker on her right foot. The patient does have baseline leg pain in general and she has chronic left leg nonhealing wound for years and she has been managed by wound care service at [facility]. A week ago, she noticed increasing pain and swelling in her right foot, which extended all the way up to below her knee. She also developed blisters on the right foot, mainly the big toe and the third toe. Her blisters also on her right anterior tibia was oozing clear fluids with more pain and swelling and difficulty moving her right leg, so she was brought into the emergency room for evaluation and the patient was started on clindamycin by the ER and Infectious Disease consultation was requested for antibiotics, treatment, and further management. The patient's pain was almost 10/10 in both lower extremities, worse on the right. No fever or chills. She had cough, productive and recent upper respiratory infection and congestion. REVIEW OF SYSTEMS: A 14-point of system reviewed were all negative apart from the one I mentioned above in my History and Physical. PAST MEDICAL HISTORY: Significant for diabetes, hypertension, COPD, and chronic venous ulcer. PAST SURGICAL HISTORY: Not on record. ALLERGIES: She is allergic to penicillin with skin rash and aspirin. MEDICATIONS: The patient was given one dose of clindamycin 300 mg once daily. For the rest of her medications, please refer to [facility]. FAMILY HISTORY: Not contributory. SOCIAL HISTORY: The patient lives at home with family. No recent drugs, tobacco, or alcohol. PHYSICAL EXAMINATION: VITAL SIGNS: Temperature 98.4, pulse 66, respiration 18, blood pressure 118/75, and saturation 97% on room air. GENERAL: Elderly female, morbidly obese, lying in bed, lethargic, but responsive. Follow commands well, not in acute distress. HEENT: Normocephalic and atraumatic. Pupils are reactive to light equally. Pale sclerae. Moist oral mucosa. No exudate or thrush. NECK: Supple. No lymphadenopathy. Midline trach. CARDIOVASCULAR: Regular rate and rhythm. No murmur. LUNGS: She had crackles and diminished breathing sounds at the bases. Poor air entry. ABDOMEN: Soft, morbidly obese, nontender, and nondistended. Normal bowel sounds. No hepatosplenomegaly or ascites. EXTREMITIES: She had left lateral tibia of two wounds actually with yellowish base and clean borders. Right foot has multiple blisters, mainly on the big toe and the third toe and there are also few blisters on the right anterior tibia, some are draining yellowish fluid. Significant swelling with tenderness and inability to move the right foot or ankle well. LABORATORY DATA: Laboratories showed white count of 7.9, hemoglobin of 13.5, and platelet count of 237,000. BUN of 40 and creatinine of 3.1. AST of 136 and ALT of 44. Microbiology, pending. Image, pending. ASSESSMENT AND RECOMMENDATION: 1. Bilateral lower extremity severe cellulitis with blisters, rule out deep infection such as necrotizing fasciitis or deep abscess. We will start the patient on clindamycin and aztreonam empiric coverage and consult dial marker for further evaluation of the right foot. We will order MRI of the right foot and leg to rule out deep abscess or osteomyelitis, keep leg elevated all the time. 2. Nonhealing ulcer of the left lower extremity. We will send wound culture and start wide-spectrum antibiotics. Discussed with plastic surgery of her left leg wound since she has been followed by them. Continue local wound care and dressing changes as per surgical team and wound care service. 3. Painful legs and moving toes, suspect due to the above. We will order venous Doppler of the lower extremity to rule out DVT. 4. Chronic kidney disease. Avoid nephrotoxic renally dosed antibiotics as per pharmacy. 5. Diabetes. Recommend tight glycemic control to keep blood glucose between 100 to 140. Thank you for the consult. ID will continue to follow. Juice Wilkerson M.D. DR: TAN JOB#: [id number] CC: BELKIS
[2018-05-12] MEDS: Clindamycin 900mg 50 ML IV SCH (21:16)
[2018-05-12] MEDS: Heparin 5000 units/ml inj SUBQ SCH (21:18)
--- NOTE | 2018-05-12 21:48 | NUR ---
NURSE NOTES: Patient went down for ordered CT scan, but unable to perform because pt exceeds weight limit per radiochemical technician. Will follow up with MD.
[2018-05-12] MEDS: Aztreonam 1gm/D5W 55ml IVPB SCH ×2 (23:42)
[2018-05-13] VITALS (9 sets, daily range): BP systolic 86–114; BP diastolic 52–82
[2018-05-13] MEDS: Clindamycin 900mg 50 ML IV SCH ×2 (05:39→23:02)
--- NOTE | 2018-05-13 05:45 | Consultation ---
DATE OF CONSULTATION: 05/12/2018 CONSULTING PHYSICIAN: Lawrence Barrera D.P.M. REFERRING PHYSICIAN: Margaret Mckinney M.D. REASON FOR CONSULTATION: Ulceration to the left foot and cellulitis of the right leg. HISTORY OF PRESENTING ILLNESS: This is a 67-year-old diabetic patient who was admitted to the [facility] through the ER for cellulitis of the right leg and ulcer to the anterior left leg. The patient states that she was seen by her wound care doctor, Dr. Carmen, who is a plastic surgeon, and he told her that he noticed ischemic changes to her feet, and she should be going to the ER for evaluation and treatment. She was seen today in the ER and was admitted for cellulitis and ulceration to her legs. PAST MEDICAL HISTORY: Per PCP, diabetic patient, peripheral neuropathy, peripheral vascular disease, edema, peripheral arterial disease, ischemia, and ulceration. PODIATRY EXAMINATION: VASCULAR: Dorsalis pedis and posterior tibial artery are nonpalpable. Right foot noted to be edematous, cold to touch, distal to the knee, dusky in color distally towards dorsum of the toes consistent with early gangrene. Pain with palpation of the toes. NEUROLOGIC: Sharp and dull proprioception. Protected threshold noted to be diminished. There is allodynia to the dorsal aspect of the right foot, possible secondary to ischemic changes. MUSCULOSKELETAL: The patient is bedbound with muscle strength 1/4 in all four quadrants. No gross deformities appreciated. DERMATOLOGICAL: Ulceration is noted to the anterior aspect of the left bowman, two spots noted, one superior to the other. The ulcerations noted to be 4 cm x 1 cm in diameter. Probing to subcutaneous, there are fibrotic changes to the base of the ulceration. No drainage or discharge can be appreciated or purulent matter. Attention very well directed to the dorsal aspect of the right digits 1 through 2. Blister formation is noted to the dorsal aspect of the foot along with dusky grayish discoloration consistent with gangrene. There are also dusky hyperpigmentation changes noted to the distal aspect of the left foot, could possibly be early gangrenous changes. ASSESSMENT AND PLAN: Diabetic patient with peripheral neuropathy, peripheral arterial disease, and vascular disease with early ischemia to the right leg below the knee, possible gangrenous changes, and ulceration to the anterior bowman to the left leg. The patient was discussed with Dr. Carmen, and it was determined that she needs a vascular consultation. An order was written for vascular studies, arterial and venous Dopplers. An order was written for consultation with Dr. Victoria. An order was written for application of Betadine to the digits 1 through 5 of the right foot, local wound care to anterior left ulceration bowman with Xeroform. The patient will be followed. Lawrence Barrera D.P.M DR: JESIKA JOB#: [id number] CC: BELKIS
[2018-05-13] MEDS: NovoLOG Insulin Flexpen SUBQ SCH ×3 (06:19→21:00)
--- NOTE | 2018-05-13 06:45 | NUR ---
NURSE NOTES: Informed Dr Mckinney regarding blood sugar and patient's mental status. Received orders and carried out.
--- NOTE | 2018-05-13 07:10 | NUR ---
HAND-OFF: Report given to Emmanuel Reyes RN.
[2018-05-13] MEDS ORDERED: D5NS 1,000 ML IV SCH ×2 (07:30→13:30)
--- NOTE | 2018-05-13 07:46 | NUR ---
NURSE NOTES: RN AND DR. FIERRO AT BEDSIDE. MD WITH ORDER FOR US RENAL, BILATERAL CAROTID ARTERIAL DUPLEX, AND BLE ARTERIAL AND VENOUS DUPLEX. PER REPORT, PT UNABLE TO FIT INTO CT MACHINE. RN WILL LEAVE MESSAGE FOR DR. KHAN. PT IS AROUSABLE TO VOICE AND SHAKING. ABLE TO ANSWER SIMPLE QUESTIONS BUT FALLS BACK ASLEEP. RIGHT AND LEFT FEET SENSITIVE TO TOUCH, WITH RIGHT FOOT BEING MORE PAINFUL UPON TOUCH. BED IN LOWEST POSITION WITH BEDSIDE RAILS X3 RAISED. CALL LIGHT WITHIN REACH. WILL CONTINUE TO MONITOR.
[2018-05-13 08:14] LABS: BASOPHILS % (AUTO) 3.1 % (0.0-2.0); EOSINOPHILS % (AUTO) 0.2 % (0.0-3.0); HEMATOCRIT 45.4 % (37.0-47.0); HEMOGLOBIN 12.8 G/DL (12.0-16.0); LYMPHOCYTES % (AUTO) 10.3 % (20.0-45.0); MEAN CORPUSCULAR VOLUME 86 FL (80-99); MONOCYTES % (AUTO) 15.2 % (1.0-10.0); NEUTROPHILS % (AUTO) 71.3 % (45.0-75.0); PLATELET COUNT 223 K/UL (150-450); RED BLOOD COUNT 5.25 M/UL (4.20-5.40); RED CELL DISTRIBUTION WIDTH 19.2 % (11.6-14.8); WHITE BLOOD COUNT 7.7 K/UL (4.8-10.8)
[2018-05-13] MEDS: Aztreonam 1gm/D5W 55ml IVPB SCH ×2 (08:26)
[2018-05-13 08:50] LABS: ALANINE AMINOTRANSFERASE 93 U/L (12-78); ALBUMIN 3.3 G/DL (3.4-5.0); ALBUMIN/GLOBULIN RATIO 0.7 (1.0-2.7); ALKALINE PHOSPHATASE 287 U/L (46-116); ANION GAP 11 mmol/L (5-15); ASPARTATE AMINO TRANSFERASE 301 U/L (15-37); BILIRUBIN,TOTAL 3.7 MG/DL (0.2-1.0); BLOOD UREA NITROGEN 47 mg/dL (7-18); CALCIUM 9.3 MG/DL (8.5-10.1); CARBON DIOXIDE 29 MMOL/L (21-32); CHLORIDE 103 MMOL/L (98-107); CHOLESTEROL 105 MG/DL (< 200); CREATININE 3.6 MG/DL (0.55-1.30); HDL CHOLESTEROL 39 MG/DL (40-60); POTASSIUM 4.5 MMOL/L (3.5-5.1); SODIUM 142 MMOL/L (136-145); TRIGLYCERIDES 92 MG/DL (30-150)
[2018-05-13 08:52] LABS: BILIRUBIN,DIRECT 2.8 MG/DL (0.0-0.3)
[2018-05-13 08:54] LABS: PHOSPHORUS 7.5 MG/DL (2.5-4.9)
[2018-05-13] MEDS ORDERED: Furosemide 40mg tab ORAL SCH (09:00)
--- NOTE | 2018-05-13 09:02 | NUR ---
RD ASSESSMENT & RECOMMENDATIONS SEE CARE ACTIVITY FOR COMPLETE ASSESSMENT DAILY ESTIMATED NEEDS: Needs based on wounds, DM, morbid obesity (71.5kg abw) 20-25 kcals/kg 0213-5207 total kcals 1.25-1.5 g protein/kg 89-107 g total protein Fluid per MD, on lasix NUTRITION DIAGNOSIS: 1) Increased protein needs r/t wound healing as evidenced by pt w/ chronic LLE ulcers. 2) Morbid obesity R/T excessive energy intake as evidenced by BMI>50 per guidelines. CURRENT DIET: CCHO MED PO DIET RECOMMENDATIONS: Cardiac / CCHO MED ADDITIONAL RECOMMENDATIONS: 1) Rec txr pt to bed w/ SCALE 2) Monitor lytes on lasix, replete as needed 3) Wound care: add NELY BID + MVI x1 + Vit C 500mg BID 4) Monitor BG and PO intake/ need for further carb restriction 5) Monitor K/ need for Low K diet (K 5.4)
[2018-05-13 09:08] LABS: APPEARANCE,URINE CLOUDY; BILIRUBIN, URINE 2+ (NEGATIVE); COLOR,URINE BROWN; GLUCOSE, URINE (UA) NEGATIVE (NEGATIVE); KETONES,URINE 2+ (NEGATIVE); LEUKOCYTE ESTERASE ,URINE 1+ (NEGATIVE); NITRITE,URINE NEGATIVE (NEGATIVE); PH,URINE 5 (4.5-8.0); PROTEIN,URINE 3+ (NEGATIVE); UROBILINOGEN,URINE 8 MG/DL (0.0-1.0)
[2018-05-13] MEDS: Heparin 5000 units/ml inj SUBQ SCH (09:09)
--- NOTE | 2018-05-13 09:50 | NUR ---
RADIOLOGY DEPT CHEST X-RAY DONE.-P.DYE
--- NOTE | 2018-05-13 10:05 | NUR ---
PT NOTE: Received MD order for PT evaluation. Spoke with Emmanuel RN, patient scheduled to be transferred to [facility]. PT evaluation deferred at this time. Will need new MD order for PT after patient transfers to [facility] due to change in medical condition.
[2018-05-13 10:30] LABS: BASOPHILS % (AUTO) 1.4 % (0.0-2.0); EOSINOPHILS % (AUTO) 0.3 % (0.0-3.0); HEMATOCRIT 42.9 % (37.0-47.0); LYMPHOCYTES % (AUTO) 11.5 % (20.0-45.0); MEAN CORPUSCULAR VOLUME 86 FL (80-99); NEUTROPHILS % (AUTO) 71.9 % (45.0-75.0); PLATELET COUNT 206 K/UL (150-450); RED BLOOD COUNT 4.98 M/UL (4.20-5.40); RED CELL DISTRIBUTION WIDTH 19.1 % (11.6-14.8); WHITE BLOOD COUNT 8.2 K/UL (4.8-10.8)
--- NOTE | 2018-05-13 10:45 | History and Physical Report ---
DATE OF ADMISSION: 05/12/2018 SOURCE OF INFORMATION: The patient and EMR. HISTORY OF PRESENT ILLNESS: The patient is a 67-year-old female, who initially presented to the ER with the complaint of worsening of the lower extremity swelling and pain. The patient had denied chest pain or shortness of breath. The patient denies any bleeding. Denies any severe pain. At the time of evaluation, the patient appears drowsy. She talks in shortened sentences and words. REVIEW OF SYSTEMS: Unobtainable as described above. ALLERGIES: To aspirin and penicillin. PAST MEDICAL HISTORY: Including, but not limited to diabetes, hypertension, COPD, and atrial fibrillation. PAST SURGICAL HISTORY: Including, but not limited to chronic venous ulcers of the legs. FAMILY HISTORY: Noncontributory. SOCIAL HISTORY: No documented history of smoking, alcohol abuse, or illicit drug abuse. MEDICATIONS: Current hospital medications including, but not limited to temazepam, Protonix, sliding scale insulin, aztreonam, and clindamycin. PHYSICAL EXAMINATION: VITAL SIGNS: Blood pressure 110/60, temperature 98.2, pulse oximetry 98% on room air, respiratory rate 18, and temperature of 98.2. HEAD AND NECK: Atraumatic and normocephalic. CHEST: Diffuse bronchial breathing sounds. Overall decreased breathing sounds. ABDOMEN: Grossly morbidly obese. Limited evaluation. MUSCULOSKELETAL: Positive for ulcers and wounds, more diffusely edematous about 2+. NEUROLOGIC: The patient is awake, alert, and x1. PSYCHIATRIC: Positive for delirious. LABORATORY AND DIAGNOSTIC DATA: Dated May 13, 2018 shows WBC 7.7, hemoglobin of 12.8, platelet count of 223. Sodium 142, potassium 4.5, BUN 47, creatinine 3.6, AST of 300, ALT of 93. LDL pending. TSH of 3.9. A1c of 6.3. Imaging pending. ASSESSMENT: 1. Acute respiratory failure. 2. Sepsis, source working progress likely lower extremity wounds. 3. Hypertension. 4. Diabetes type 2, controlled with A1c of 6.3. 5. Pain management. 6. GI and DVT prophylaxis. PLAN OF CARE: Given the acute change in mental status, I discussed the care with the nurse to transfer the patient to [facility]. Stat laboratories and chest x-ray are ordered. We will consult Pulmonary, Dr. Childress. I agree with the current antibiotic regimens. Nephrology and Infectious Disease are consulted. We will obtain the renal ultrasound. Margaret Mckinney M.D. DR: CURTIS JOB#: [id number] CC:
--- NOTE | 2018-05-13 10:48 | NUR ---
NURSE NOTES: DR KHAN MADE AWARE OF PT UNABLE TO FIT IN CT MACHINE. NEW ORDER FOR XRAYS AND D/C MRI ORDERS.
--- NOTE | 2018-05-13 10:49 | NUR ---
NURSE NOTES: RN SPOKE TO PT'S DTG SOPHIA (MIKE) AND MADE AWARE OF NEW ORDER TO TX TO [facility] UN[facility]. DTG VERBALIZED UNDERSTANDING. RN CONFIRMED DTG'S NUMBER ON FACESHEET IS CORRECT.
[2018-05-13 11:06] LABS: ALANINE AMINOTRANSFERASE 87 U/L (12-78); ALBUMIN 2.9 G/DL (3.4-5.0); ALBUMIN/GLOBULIN RATIO 0.7 (1.0-2.7); ALKALINE PHOSPHATASE 248 U/L (46-116); ANION GAP 12 mmol/L (5-15); ASPARTATE AMINO TRANSFERASE 285 U/L (15-37); BILIRUBIN,DIRECT 2.5 MG/DL (0.0-0.3); BILIRUBIN,TOTAL 3.4 MG/DL (0.2-1.0); BLOOD UREA NITROGEN 48 mg/dL (7-18); CALCIUM 9.1 MG/DL (8.5-10.1); CARBON DIOXIDE 25 MMOL/L (21-32); CHLORIDE 103 MMOL/L (98-107); CREATININE 3.7 MG/DL (0.55-1.30); POTASSIUM 4.6 MMOL/L (3.5-5.1); SODIUM 140 MMOL/L (136-145)
--- NOTE | 2018-05-13 11:12 | General Progress Note ---
Progress Note Progress Note Asked by podiatry Dr Barrera to eval patient Altered mental status Encephalopathy Anasarca Renal failure DM HTN Obesity Bilateral leg mixed venous arterial insufficiency Calcific multilevel occlusive PAD with leg ulcers 2+ femorals absent pop and pedal pulses Rec Medical optimization in progress Renal eval--may need dialysis Check Echo Off load legs with decub and DVT precautions Non invasive vascular duplex imaging Once more stable and if cleared by renal can have selective leg angiogram to assess for percutaneous revascularization d/w pt's nurse at bedside Nicko Victoria MD May 13, 2018 11:12
--- NOTE | 2018-05-13 12:13 | Diagnostic Imaging Report ---
Indication: Cough Comparison: 11/02/2017 A single view chest radiograph was obtained. Findings: Prominent pulmonary vascularity and probable mild interstitial edema demonstrated. Marked cardiomegaly noted. IMPRESSION: Suspected mild CHF
[2018-05-13] MEDS ORDERED: Norco 5mg/325mg tab ORAL PRN ×2 (13:00→21:00)
--- NOTE | 2018-05-13 13:45 | NUR ---
NURSE NOTES: Dr Ritchie ordered ABG. ABG result critical. Notified doctor Erma. Dr Ritchie ordered BiPAP / at this time and repeat ABG in 2 hours.
[2018-05-13] MEDS ORDERED: Enoxaparin 100mg Inj SUBQ SCH ×2 (14:00)
[2018-05-13] MEDS ORDERED: Clindamycin 900mg 50 ML IV SCH (14:00)
--- NOTE | 2018-05-13 14:30 | NUR ---
RESPIRATORY NOTE: Received pt on NC 2L 28% FiO2, ABG drawn, result in system. Put pt on Bipap 12/5, back up rate 16, 40% FiO2 per Dr. Ritchie's order. No redness or skin breakdown noted upon applying the mask. Vinod upper lobes rhonchi breath sounds and vinod lower lobes diminished breath sounds. Pt is tolerating well, saturates at 94%. Alarms are set and audible, Bipap is plugged into the red outlet, ambu bag is at bedside. Will continue to monitor.
--- NOTE | 2018-05-13 14:31 | Infectious Diseases Prog Note ---
Assessment/Plan Problems: (1) Bilateral lower leg cellulitis Assessment & Plan: with blisters , with possible deep infection , continue clindamycin and aztreonam empirically and local wounds care . patient refused MRI and CT of the legs to rule out deep abscess or osteomyelitis. will order bone scan of both legs . D/W ice puller (2) Nonhealing ulcer of left lower extremity Assessment & Plan: await wound culture , and continue wide spectrum antibiotics , continue local wound care and dressings change as per wound care service (3) Painful legs and moving toes Assessment & Plan: suspect due to the above , will order venous doppler to rule out DVT (4) CKD (chronic kidney disease) Assessment & Plan: avoid nephrotoxics , renally dosed antibiotics as per pharmacy (5) DM (diabetes mellitus) Assessment & Plan: recommend tight glycemic control to keep blood glucose between 100-140 (6) Acute encephalopathy Assessment & Plan: metabolic VS toxic, check ammonia level, consult neurology if no improvement with brain image Subjective Constitutional: Reports: fatigue HEENT: Reports: no symptoms Respiratory: Reports: dry cough Cardiovascular: Reports: dyspnea on exertion Gastrointestinal/Abdominal: Reports: bloating Genitourinary: Reports: no symptoms Neurologic: Reports: weakness, confusion Psychiatric: Reports: anxiety Skin: Reports: ulcer, other - blisters Endocrine: Reports: no symptoms Hematologic: Reports: no symptoms Musculoskeletal: Reports: pain Allergies: Coded Allergies: ASPIRIN (Verified Allergy, Intermediate, Hives, 01/06/13) PENICILLINS (Verified Allergy, Intermediate, Hives, 01/06/13) Subjective she was encephalopathic today and was transferred to SDU , awake and responsive to verbal commands, oriented x2 Objective Vital Signs Last 24 Hour Vital Signs Date Time Temp Pulse Resp B/P (MAP) Pulse Ox O2 Delivery O2 Flow Rate FiO2 05/13/18 12:51 60 05/13/18 12:49 59 05/13/18 12:00 97.1 55 18 86/52 (63) 90 05/13/18 09:00 Nasal Cannula 2.0 05/13/18 08:25 100 Nasal Cannula 2.0 28 05/13/18 08:25 61 20 Nasal Cannula 2.0 28 05/13/18 08:25 Nasal Cannula 2.0 28 05/13/18 08:00 97.3 61 20 113/57 (75) 95 05/13/18 04:00 98.2 66 24 112/60 (77) 94 05/13/18 00:00 97.5 63 24 114/82 (93) 95 05/12/18 21:00 Nasal Cannula 2.0 05/12/18 20:00 98.0 64 22 122/75 (91) 94 05/12/18 18:41 Nasal Cannula 2.0 05/12/18 16:45 98.1 66 20 120/75 (90) 95 05/12/18 15:10 98.5 69 18 119/72 99 Room Air 05/12/18 15:00 98.4 72 18 118/75 97 Room Air 05/12/18 14:55 98.4 Height (Feet): 5 Height (Inches): 3.00 Weight (Pounds): 199 General Appearance: WD/WN, no acute distress HEENT: normocephalic, atraumatic, anicteric, mucous membranes moist, PERRL, EOMI, pharynx normal, supple, no JVD Respiratory/Chest: chest wall non-tender, no respiratory distress, no accessory muscle use, decreased breath sounds, crackles/rales Cardiovascular: normal peripheral pulses, normal rate, regular rhythm, no gallop/murmur, no JVD Abdomen: normal bowel sounds, soft, non tender, no organomegaly, non distended , no mass, no scars Extremities: no cyanosis, no clubbing Skin: no rash, no lesions, no ulcers Neurologic/Psychiatric: alert, responsive Lymphatic: no neck adenopathy, no groin adenopathy Musculoskeletal: normal muscle bulk, no effusion Microbiology Date/Time Source Procedure Growth Status 05/12/18 18:20 Leg Right Gram Stain - Final Resulted 05/12/18 18:20 Leg Right Wound Culture Pending Resulted 05/12/18 18:20 Leg Left Gram Stain - Final Resulted 05/12/18 18:20 Leg Left Wound Culture Pending Resulted Laboratory Tests Test 05/13/18 06:55 05/13/18 08:45 05/13/18 09:55 05/13/18 13:20 White Blood Count 7.7 K/UL (4.8-10.8) 8.2 K/UL (4.8-10.8) Red Blood Count 5.25 M/UL (4.20-5.40) 4.98 M/UL (4.20-5.40) Hemoglobin 12.8 G/DL (12.0-16.0) 12.0 G/DL (12.0-16.0) Hematocrit 45.4 % (37.0-47.0) 42.9 % (37.0-47.0) Mean Corpuscular Volume 86 FL (80-99) 86 FL (80-99) Mean Corpuscular Hemoglobin 24.5 PG (27.0-31.0) L 24.2 PG (27.0-31.0) L Mean Corpuscular Hemoglobin Concent 28.3 G/DL (32.0-36.0) L 28.1 G/DL (32.0-36.0) L Red Cell Distribution Width 19.2 % (11.6-14.8) H 19.1 % (11.6-14.8) H Platelet Count 223 K/UL (150-450) 206 K/UL (150-450) Mean Platelet Volume 7.7 FL (6.5-10.1) 8.9 FL (6.5-10.1) Neutrophils (%) (Auto) 71.3 % (45.0-75.0) 71.9 % (45.0-75.0) Lymphocytes (%) (Auto) 10.3 % (20.0-45.0) L 11.5 % (20.0-45.0) L Monocytes (%) (Auto) 15.2 % (1.0-10.0) H 15.0 % (1.0-10.0) H Eosinophils (%) (Auto) 0.2 % (0.0-3.0) 0.3 % (0.0-3.0) Basophils (%) (Auto) 3.1 % (0.0-2.0) H 1.4 % (0.0-2.0) Sodium Level 142 MMOL/L (136-145) 140 MMOL/L (136-145) Potassium Level 4.5 MMOL/L (3.5-5.1) 4.6 MMOL/L (3.5-5.1) Chloride Level 103 MMOL/L (98-107) 103 MMOL/L (98-107) Carbon Dioxide Level 29 MMOL/L (21-32) 25 MMOL/L (21-32) Anion Gap 11 mmol/L (5-15) 12 mmol/L (5-15) Blood Urea Nitrogen 47 mg/dL (7-18) H 48 mg/dL (7-18) H Creatinine 3.6 MG/DL (0.55-1.30) H 3.7 MG/DL (0.55-1.30) H Estimat Glomerular Filtration Rate 15.4 mL/min (>60) 14.9 mL/min (>60) Glucose Level 82 MG/DL (74-106) 103 MG/DL (74-106) Hemoglobin A1c 6.3 % (4.3-6.0) H Uric Acid 12.5 MG/DL (2.6-7.2) H Calcium Level 9.3 MG/DL (8.5-10.1) 9.1 MG/DL (8.5-10.1) Phosphorus Level 7.5 MG/DL (2.5-4.9) H Magnesium Level 2.3 MG/DL (1.8-2.4) Total Bilirubin 3.7 MG/DL (0.2-1.0) H 3.4 MG/DL (0.2-1.0) H Direct Bilirubin 2.8 MG/DL (0.0-0.3) H 2.5 MG/DL (0.0-0.3) H Gamma Glutamyl Transpeptidase 204 U/L (5-85) H Aspartate Amino Transf (AST/SGOT) 301 U/L (15-37) H 285 U/L (15-37) H Alanine Aminotransferase (ALT/SGPT) 93 U/L (12-78) H 87 U/L (12-78) H Alkaline Phosphatase 287 U/L (46-116) H 248 U/L (46-116) H Pro-B-Type Natriuretic Peptide 2257 pg/mL (0-125) H Total Protein 7.9 G/DL (6.4-8.2) 7.0 G/DL (6.4-8.2) Albumin 3.3 G/DL (3.4-5.0) L 2.9 G/DL (3.4-5.0) L Globulin 4.6 g/dL 4.1 g/dL Albumin/Globulin Ratio 0.7 (1.0-2.7) L 0.7 (1.0-2.7) L Triglycerides Level 92 MG/DL (30-150) Cholesterol Level 105 MG/DL (< 200) LDL Cholesterol 55 mg/dL (<100) HDL Cholesterol 39 MG/DL (40-60) L Cholesterol/HDL Ratio 2.7 (3.3-4.4) L Thyroid Stimulating Hormone (TSH) 3.968 uiU/mL (0.358-3.740) Urine Color Brown Urine Appearance Cloudy Urine pH 5 (4.5-8.0) Urine Specific [place] 1.025 (1.005-1.035) Urine Protein 3+ (NEGATIVE) H Urine Glucose (UA) Negative (NEGATIVE) Urine Ketones 2+ (NEGATIVE) H Urine Blood 4+ (NEGATIVE) H Urine Nitrite Negative (NEGATIVE) Urine Bilirubin 2+ (NEGATIVE) H Urine Ictotest Negative (NEGATIVE) Urine Urobilinogen 8 MG/DL (0.0-1.0) H Urine Leukocyte Esterase 1+ (NEGATIVE) H Urine RBC 10-15 /HPF (0 - 2) H Urine WBC 2-4 /HPF (0 - 2) Urine Squamous Epithelial Cells Few /LPF (NONE/OCC) Urine Bacteria Moderate /HPF (NONE) H Troponin I 0.189 ng/mL (0.000-0.056) Ammonia 72 umol/L (11-32) H Test 05/13/18 13:32 Arterial Blood pH 7.257 (7.350-7.450) Arterial Blood Partial Pressure CO2 60.6 mmHg (35.0-45.0) *H Arterial Blood Partial Pressure O2 56.6 mmHg (75.0-100.0) L Arterial Blood HCO3 26.4 mmol/L (22.0-26.0) H Arterial Blood Oxygen Saturation 85.2 % (95-100) *L Arterial Blood Base Excess -1.8 (-2-2) Aditya Test Positive Current Medications Medications (Trade) Dose Ordered Sig/Toya Route PRN Reason Start Time Stop Time Status Last Admin Dose Admin Acetaminophen/ Hydrocodone Bitart ([place] 5/325) 1 tab Q4H PRN ORAL Moderate Pain (Pain Scale 4-6) 05/13/18 13:00 05/19/18 16:59 Aztreonam 1 gm/ Dextrose 55 ml @ 110 mls/hr Q8HR@0000,0800,1600 IVPB 05/13/18 16:00 05/20/18 00:00 Clindamycin HCl/ Dextrose 50 ml @ 100 mls/hr Q8HR IV 05/13/18 14:00 05/19/18 21:59 Dextrose (Dextrose 50%) 25 ml Q30M PRN IV Hypoglycemia 05/13/18 13:00 06/11/18 16:59 Dextrose (Dextrose 50%) 50 ml Q30M PRN IV Hypoglycemia 05/13/18 13:00 06/11/18 16:59 Dextrose/Sodium Chloride 1,000 ml @ 75 mls/hr [id number] IV 05/13/18 13:30 06/12/18 13:29 Enoxaparin Sodium (Lovenox) 100 mg Q24H SUBQ 05/13/18 14:00 06/12/18 13:59 Furosemide (Lasix) 40 mg DAILY ORAL 05/14/18 09:00 06/12/18 08:59 Gabapentin (Neurontin) 300 mg Q12HR ORAL 05/13/18 21:00 06/11/18 20:59 Insulin Aspart (NovoLOG) BEFORE MEALS AND HS SUBQ 05/13/18 16:30 06/11/18 20:59 Levothyroxine Sodium (Synthroid) 25 mcg DAILY@0630 ORAL 05/14/18 06:30 06/13/18 06:29 Pantoprazole (Protonix) 40 mg DAILY ORAL 05/14/18 09:00 06/12/18 08:59 Temazepam (Restoril) 15 mg HSPRN PRN ORAL Insomnia 05/13/18 17:00 05/19/18 16:59 Juice Wilkerson M.D. May 13, 2018 14:31
--- NOTE | 2018-05-13 14:58 | GI Initial Consult Note ---
History of Present Illness General Date patient seen: May 13, 2018 Time patient seen: 14:58 Reason for Hospitalization: Edema Referring physician: TORI Reason for Consultation: ELEVATED AMMONIA LEVELS Present Illness HPI 67-year-old female presents ED for evaluation. Patient states that she's got worsening pain and swelling to her lower extremities. Has chronic venous ulcers in her legs. Being managed by Dr. Carmen. States there is increased swelling and pain to the lower extremities. Pain is throbbing, 9 out of 10, nonradiating. Denies any fevers or chills. No other aggravating relieving factors. Denies any other associated symptoms. GI consulted for elevated ammonia levels. Pt seen, lethargic able to answer a few questions. Has c/o of abdominal pain. Denied any alcohol use. Was unable to obtain any further history. Abdomen noted to be distended, non tympanic. No reported BM as of yet. Elevated LFTs with AST:ALT 3:1 ratio. Elevated troponin levels. Unknown history of endoscopy / colonoscopy. Home Meds Active Scripts Potassium Chloride* (K-DUR*) 20 Meq Tab.er.prt, 20 MEQ ORAL TWICE A DAY for 30 Days, #60 TAB Prov:Giovanny Carlin MD 11/06/17 Reported Medications Furosemide* (LASIX*) 80 Mg Tablet, 80 MG ORAL BID, TAB 11/06/17 Amiodarone Hcl* (CORDARONE*) 200 Mg Tablet, 200 MG ORAL DAILY, TAB 11/02/17 Escitalopram Oxalate* (LEXAPRO*) 10 Mg Tablet, 10 MG ORAL DAILY, TAB 11/02/17 Diphenhydramine Hcl* (DIPHENHYDRAMINE HCL*) 25 Mg Capsule, 25 MG ORAL QHS, #30 CAP 0 Refills 11/02/17 Acetaminophen With Codeine (T#3) (TYLENOL #3 TAB*) Y Tab, 1 TAB ORAL Q6HR PRN for For Pain, TAB 11/02/17 Apixaban (ELIQUIS) 5 Mg Tablet, 5 MG PO BID, TAB 11/02/17 Acetaminophen* (ACETAMINOPHEN 325MG TABLET*) 325 Mg Tablet, 650 MG ORAL Q4H PRN for Mild Pain/Temp > 100.5, TAB 09/29/17 Apixaban (ELIQUIS) 5 Mg Tablet, 5 MG PO Q12HR, TAB 09/29/17 Carvedilol (Coreg) 12.5 Mg Tablet, 3.125 MG ORAL EVERY 12 HOURS, TAB 09/29/17 Digoxin* (DIGOXIN*) 0.125 Mg/2.5 Ml Solution, 0.125 MG ORAL DAILY, ML 0 Refills 09/29/17 Ipratropium/Albuterol Sulfate (DuoNeb 0.5-3(2.5)mg/3ml) 3 Ml Ampul.neb, 3 ML HHN Q4HR PRN for Shortness of Breath, EA 09/29/17 Insulin Aspart* (NOVOLOG*) 100 Unit/1 Ml Insuln.pen, 0 SUBQ AC+HS, #1 EA 0 Refills 09/29/17 Polyethylene Glycol 3350* (MIRALAX*) 17 Gm Powd.pack, 17 GM ORAL DAILY PRN for Constipation, PACKET 09/29/17 Ondansetron* (ZOFRAN*) 4 Mg Tablet, 4 MG ORAL Q6H PRN for Nausea & Vomiting, TAB 09/29/17 Hydrocodone Bit/Acetaminophen 10-325* ([place] 10-325*) 1 Each Tablet, 1 TAB ORAL Q4H PRN for For Pain, TAB 0 Refills PRN PAIN 09/29/17 Furosemide* (LASIX*) 20 Mg Tablet, 40 MG ORAL DAILY, TAB 09/29/17 Temazepam* (RESTORIL*) 15 Mg Capsule, 15 MG ORAL BEDTIME PRN for Insomnia, CAP 09/29/17 Clonidine Hcl* (CATAPRES*) 0.1 Mg Tablet, 0.1 MG ORAL TID PRN for elevated sbp, TAB 09/29/17 Hydrocodone/Acetaminophen (Hydrocodon-Acetaminophn 10-325) 1 Ea Tab, 1 TAB ORAL Q4H PRN for For Pain, #90 TAB 0 Refills 06/12/15 Hydrocortisone/Aloe Vera (HYDROCORTISONE PLUS 1% CREAM) 28.4 Gm Cream..g., 28.4 GM TP TID for Itching for 14 Days, GM 06/12/15 Hydrocortisone/Aloe Vera (HYDROCORTISONE PLUS 1% CREAM) 28.4 Gm Cream..g., 28.4 GM TP, GM 06/12/15 Hydrocortisone/Aloe Vera (HYDROCORTISONE PLUS 1% CREAM) 28.4 Gm Cream..g., 28.4 GM TP, GM 06/12/15 Hc/Mineral Oil/Petrolat,Wht 1% (HYDROCORTISONE 1% ABSORBASE) 25 Gm Oint...g., 25 GM TP, GM 06/12/15 Sildenafil Citrate (SILDENAFIL) 20 Mg Tablet, 20 MG ORAL TID, TAB 0 Refills 05/08/15 Omeprazole (PRILOSEC) 20 Mg Capsule.dr, 20 MG ORAL DAILY, CAP 05/21/13 Atorvastatin Calcium* (LIPITOR*) 20 Mg Tablet, 20 MG ORAL DAILY, #30 TAB 0 Refills 01/06/13 Gabapentin* (GABAPENTIN*) 300 Mg Capsule, 300 MG ORAL BID, #90 CAP 0 Refills 01/06/13 Losartan Potassium* (LOSARTAN POTASSIUM*) 50 Mg Tablet, 25 MG ORAL DAILY, TAB 01/06/13 Sitagliptin (Januvia) 50 Mg Tab, 100 MG ORAL DAILY, TAB 01/06/13 Metformin Hcl* (METFORMIN HCL*) 1,000 Mg Tablet, 1000 MG ORAL BID, TAB 01/06/13 Med list reviewed/reconciled: Yes Allergies: Coded Allergies: ASPIRIN (Verified Allergy, Intermediate, Hives, 01/06/13) PENICILLINS (Verified Allergy, Intermediate, Hives, 01/06/13) Patient History Limited by: medical condition History Provided By: Medical Record PMH Narrative Past Medical History: DM, HTN, COPD Past Surgical History: other - chronic venous ulcers Pertinent Family History: none Social History: Denies: smoking, alcohol use, drug use Now: No Immunizations: UTD Reviewed Nursing Documentation: PMH: Agreed; PSxH: Agreed Nursing Documentation-PM Past Medical History: No History, Except For Hx Cardiac Problems: Yes - AFIB Hx Hypertension: Yes Hx Pacemaker: No Hx Asthma: No Hx COPD: Yes Hx Diabetes: Yes - DM II Hx Cancer: No Hx Gastrointestinal Problems: Yes Hx Dialysis: No Hx Neurological Problems: Yes Hx Seizures: No Hx Peripheral Neuropathy: Yes Review of Systems All Other Systems: negative except mentioned in HPI Physical Exam Vital Signs Date Time Temp Pulse Resp B/P (MAP) Pulse Ox O2 Delivery O2 Flow Rate FiO2 05/12/18 13:03 98.4 66 18 118/75 97 Room Air 05/12/18 18:41 2.0 05/13/18 08:25 28 Sp02 EP Interpretation: reviewed, normal Labs Laboratory Tests Test 05/13/18 06:55 05/13/18 08:45 05/13/18 09:55 05/13/18 13:20 White Blood Count 7.7 K/UL (4.8-10.8) 8.2 K/UL (4.8-10.8) Red Blood Count 5.25 M/UL (4.20-5.40) 4.98 M/UL (4.20-5.40) Hemoglobin 12.8 G/DL (12.0-16.0) 12.0 G/DL (12.0-16.0) Hematocrit 45.4 % (37.0-47.0) 42.9 % (37.0-47.0) Mean Corpuscular Volume 86 FL (80-99) 86 FL (80-99) Mean Corpuscular Hemoglobin 24.5 PG (27.0-31.0) L 24.2 PG (27.0-31.0) L Mean Corpuscular Hemoglobin Concent 28.3 G/DL (32.0-36.0) L 28.1 G/DL (32.0-36.0) L Red Cell Distribution Width 19.2 % (11.6-14.8) H 19.1 % (11.6-14.8) H Platelet Count 223 K/UL (150-450) 206 K/UL (150-450) Mean Platelet Volume 7.7 FL (6.5-10.1) 8.9 FL (6.5-10.1) Neutrophils (%) (Auto) 71.3 % (45.0-75.0) 71.9 % (45.0-75.0) Lymphocytes (%) (Auto) 10.3 % (20.0-45.0) L 11.5 % (20.0-45.0) L Monocytes (%) (Auto) 15.2 % (1.0-10.0) H 15.0 % (1.0-10.0) H Eosinophils (%) (Auto) 0.2 % (0.0-3.0) 0.3 % (0.0-3.0) Basophils (%) (Auto) 3.1 % (0.0-2.0) H 1.4 % (0.0-2.0) Sodium Level 142 MMOL/L (136-145) 140 MMOL/L (136-145) Potassium Level 4.5 MMOL/L (3.5-5.1) 4.6 MMOL/L (3.5-5.1) Chloride Level 103 MMOL/L (98-107) 103 MMOL/L (98-107) Carbon Dioxide Level 29 MMOL/L (21-32) 25 MMOL/L (21-32) Anion Gap 11 mmol/L (5-15) 12 mmol/L (5-15) Blood Urea Nitrogen 47 mg/dL (7-18) H 48 mg/dL (7-18) H Creatinine 3.6 MG/DL (0.55-1.30) H 3.7 MG/DL (0.55-1.30) H Estimat Glomerular Filtration Rate 15.4 mL/min (>60) 14.9 mL/min (>60) Glucose Level 82 MG/DL (74-106) 103 MG/DL (74-106) Hemoglobin A1c 6.3 % (4.3-6.0) H Uric Acid 12.5 MG/DL (2.6-7.2) H Calcium Level 9.3 MG/DL (8.5-10.1) 9.1 MG/DL (8.5-10.1) Phosphorus Level 7.5 MG/DL (2.5-4.9) H Magnesium Level 2.3 MG/DL (1.8-2.4) Total Bilirubin 3.7 MG/DL (0.2-1.0) H 3.4 MG/DL (0.2-1.0) H Direct Bilirubin 2.8 MG/DL (0.0-0.3) H 2.5 MG/DL (0.0-0.3) H Gamma Glutamyl Transpeptidase 204 U/L (5-85) H Aspartate Amino Transf (AST/SGOT) 301 U/L (15-37) H 285 U/L (15-37) H Alanine Aminotransferase (ALT/SGPT) 93 U/L (12-78) H 87 U/L (12-78) H Alkaline Phosphatase 287 U/L (46-116) H 248 U/L (46-116) H Pro-B-Type Natriuretic Peptide 2257 pg/mL (0-125) H Total Protein 7.9 G/DL (6.4-8.2) 7.0 G/DL (6.4-8.2) Albumin 3.3 G/DL (3.4-5.0) L 2.9 G/DL (3.4-5.0) L Globulin 4.6 g/dL 4.1 g/dL Albumin/Globulin Ratio 0.7 (1.0-2.7) L 0.7 (1.0-2.7) L Triglycerides Level 92 MG/DL (30-150) Cholesterol Level 105 MG/DL (< 200) LDL Cholesterol 55 mg/dL (<100) HDL Cholesterol 39 MG/DL (40-60) L Cholesterol/HDL Ratio 2.7 (3.3-4.4) L Thyroid Stimulating Hormone (TSH) 3.968 uiU/mL (0.358-3.740) Urine Color Brown Urine Appearance Cloudy Urine pH 5 (4.5-8.0) Urine Specific [place] 1.025 (1.005-1.035) Urine Protein 3+ (NEGATIVE) H Urine Glucose (UA) Negative (NEGATIVE) Urine Ketones 2+ (NEGATIVE) H Urine Blood 4+ (NEGATIVE) H Urine Nitrite Negative (NEGATIVE) Urine Bilirubin 2+ (NEGATIVE) H Urine Ictotest Negative (NEGATIVE) Urine Urobilinogen 8 MG/DL (0.0-1.0) H Urine Leukocyte Esterase 1+ (NEGATIVE) H Urine RBC 10-15 /HPF (0 - 2) H Urine WBC 2-4 /HPF (0 - 2) Urine Squamous Epithelial Cells Few /LPF (NONE/OCC) Urine Bacteria Moderate /HPF (NONE) H Troponin I 0.189 ng/mL (0.000-0.056) Ammonia 72 umol/L (11-32) H Test 05/13/18 13:32 Arterial Blood pH 7.257 (7.350-7.450) Arterial Blood Partial Pressure CO2 60.6 mmHg (35.0-45.0) *H Arterial Blood Partial Pressure O2 56.6 mmHg (75.0-100.0) L Arterial Blood HCO3 26.4 mmol/L (22.0-26.0) H Arterial Blood Oxygen Saturation 85.2 % (95-100) *L Arterial Blood Base Excess -1.8 (-2-2) Aditya Test Positive General Appearance: well appearing, no apparent distress, alert Head: normocephalic EENT: PERRL/EOMI, normal ENT inspection Neck: supple Respiratory: normal breath sounds, no respiratory distress Cardiovascular: normal rate Gastrointestinal: normal inspection, non tender, soft, normal bowel sounds, distended Rectal: deferred Genitourinary: no CVA tenderness Musculoskeletal: normal inspection, back normal Neurologic: normal inspection, alert, oriented x3, responsive Psychiatric: normal inspection, judgement/insight normal, memory normal Skin: normal inspection, normal color, no rash, warm/dry, palpation normal, well hydrated Lymphatic: normal inspection, no adenopathy Current Medications Current Medications Medications (Trade) Dose Ordered Sig/Toya Route PRN Reason Start Time Stop Time Status Last Admin Dose Admin Acetaminophen/ Hydrocodone Bitart ([place] 5/325) 1 tab Q4H PRN ORAL Moderate Pain (Pain Scale 4-6) 05/13/18 13:00 05/19/18 16:59 Aztreonam 1 gm/ Dextrose 55 ml @ 110 mls/hr Q8HR@0000,0800,1600 IVPB 05/13/18 16:00 05/20/18 00:00 Clindamycin HCl/ Dextrose 50 ml @ 100 mls/hr Q8HR IV 05/13/18 14:00 05/19/18 21:59 05/13/18 14:32 Dextrose (Dextrose 50%) 25 ml Q30M PRN IV Hypoglycemia 05/13/18 13:00 06/11/18 16:59 Dextrose (Dextrose 50%) 50 ml Q30M PRN IV Hypoglycemia 05/13/18 13:00 06/11/18 16:59 Dextrose/Sodium Chloride 1,000 ml @ 75 mls/hr [id number] IV 05/13/18 13:30 06/12/18 13:29 05/13/18 14:32 Enoxaparin Sodium (Lovenox) 100 mg Q24H SUBQ 05/13/18 14:00 06/12/18 13:59 Furosemide (Lasix) 40 mg DAILY ORAL 05/14/18 09:00 06/12/18 08:59 Gabapentin (Neurontin) 300 mg Q12HR ORAL 05/13/18 21:00 06/11/18 20:59 Insulin Aspart (NovoLOG) BEFORE MEALS AND HS SUBQ 1/17/19 16:30 06/11/18 20:59 Lactulose (Cephulac) 10 gm THREE TIMES A DAY ORAL 05/13/18 18:00 06/12/18 17:59 Levothyroxine Sodium (Synthroid) 25 mcg DAILY@0630 ORAL 05/14/18 06:30 06/13/18 06:29 Pantoprazole (Protonix) 40 mg DAILY ORAL 05/14/18 09:00 06/12/18 08:59 Temazepam (Restoril) 15 mg HSPRN PRN ORAL Insomnia 05/13/18 17:00 05/19/18 16:59 GI: Plan Problems: (1) Abdominal distension (2) Liver disease (3) Acute encephalopathy (4) Morbid (severe) obesity due to excess calories (5) Elevated transaminase level (6) Intractable abdominal pain (7) Hepatic encephalopathy Plan maintain NPO + IVFs cont lactulose, add Xifaxan abdominal US ordered anemia work up OB stool r/o GI bleed monitor H&H, prn transfusions bowel regime ppi fu labs, hepatitis panel will consider endoscopy pending work up, but will require cardiac clearance given elevated troponin levels. Discussed with Dr. Paul. Thank you for this patient referral, we will follow. The patient was seen and examined at bedside and all new and available data was reviewed in the patients chart. I agree with the above findings, impression and plan. (Patient seen earlier today. Signature stamp does not reflect patient encounter time.). - MD Vicki Gross,[employer] May 13, 2018 14:58
--- NOTE | 2018-05-13 15:07 | Consultation ---
History of Present Illness General Date patient seen: May 13, 2018 Time patient seen: 12:30 Chief Complaint: Respiratory failure Referring physician: TORI Reason for Consultation: ELEVATED AMMONIA LEVELS Present Illness HPI 67 y/o female w/ DM, CKD, morbid obesity presented with worsening LE edema and infection. Admitted with cellulitis with blisters. Also noted with lethargy and altered mental status, difficult to arouse. No other history available from patient as lethargic. Allergies: Coded Allergies: ASPIRIN (Verified Allergy, Intermediate, Hives, 01/06/13) PENICILLINS (Verified Allergy, Intermediate, Hives, 01/06/13) Medication History Scheduled Amiodarone Hcl* (Cordarone*), 200 MG ORAL DAILY, (Reported) Apixaban (Eliquis), 5 MG PO Q12HR, (Reported) Apixaban (Eliquis), 5 MG PO BID, (Reported) Atorvastatin Calcium* (Lipitor*), 20 MG ORAL DAILY, (Reported) Carvedilol (Coreg), 3.125 MG ORAL EVERY 12 HOURS, (Reported) Digoxin* (Digoxin*), 0.125 MG ORAL DAILY, (Reported) Diphenhydramine Hcl* (Diphenhydramine Hcl*), 25 MG ORAL QHS, (Reported) Escitalopram Oxalate* (Lexapro*), 10 MG ORAL DAILY, (Reported) Furosemide* (Lasix*), 40 MG ORAL DAILY, (Reported) Furosemide* (Lasix*), 80 MG ORAL BID, (Reported) Gabapentin* (Gabapentin*), 300 MG ORAL BID, (Reported) Hydrocortisone/Aloe Vera (Hydrocortisone Plus 1% Cream), 28.4 GM TP TID, ( Reported) Insulin Aspart* (Novolog*), 0 SUBQ AC+HS, (Reported) Losartan Potassium* (Losartan Potassium*), 25 MG ORAL DAILY, (Reported) Metformin Hcl* (Metformin Hcl*), 1,000 MG ORAL BID, (Reported) Omeprazole (Prilosec), 20 MG ORAL DAILY, (Reported) Potassium Chloride* (K-Dur*), 20 MEQ ORAL TWICE A DAY Sildenafil Citrate (Sildenafil), 20 MG ORAL TID, (Reported) Sitagliptin (Januvia), 100 MG ORAL DAILY, (Reported) Scheduled PRN Acetaminophen With Codeine (T#3) (Tylenol #3 Tab*), 1 TAB ORAL Q6HR PRN for For Pain, (Reported) Acetaminophen* (Acetaminophen 325MG Tablet*), 650 MG ORAL Q4H PRN for Mild Pain/ Temp > 100.5, (Reported) Clonidine Hcl* (Catapres*), 0.1 MG ORAL TID PRN for elevated sbp, (Reported) Hydrocodone Bit/Acetaminophen 10-325* (Thayer 10-325*), 1 TAB ORAL Q4H PRN for For Pain, (Reported) Hydrocodone/Acetaminophen (Hydrocodon-Acetaminophn 10-325), 1 TAB ORAL Q4H PRN for For Pain, (Reported) Ipratropium/Albuterol Sulfate (DuoNeb 0.5-3(2.5)mg/3ml), 3 ML HHN Q4HR PRN for Shortness of Breath, (Reported) Ondansetron* (Zofran*), 4 MG ORAL Q6H PRN for Nausea & Vomiting, (Reported) Polyethylene Glycol 3350* (Miralax*), 17 GM ORAL DAILY PRN for Constipation, ( Reported) Temazepam* (Restoril*), 15 MG ORAL BEDTIME PRN for Insomnia, (Reported) Miscellaneous Medications Hc/Mineral Oil/Petrolat,Wht 1% (Hydrocortisone 1% Absorbase), 25 GM TP, ( Reported) Hydrocortisone/Aloe Vera (Hydrocortisone Plus 1% Cream), 28.4 GM TP, (Reported) Hydrocortisone/Aloe Vera (Hydrocortisone Plus 1% Cream), 28.4 GM TP, (Reported) Patient History Limited by: medical condition History Provided By: Medical Record Healthcare decision maker Resuscitation status Full Code Advanced Directive on File Review of Systems ROS Narrative Unable to obtain due to patient factors Physical Exam General Appearance: lethargic HEENT: normocephalic, atraumatic, mucous membranes moist Neck: supple, normal inspection Respiratory/Chest: decreased breath sounds Cardiovascular/Chest: normal rate, regular rhythm Abdomen: other - Obese Extremities: other - bilateral pitting edema with erythema and open blisters on legs Last 24 Hour Vital Signs Date Time Temp Pulse Resp B/P (MAP) Pulse Ox O2 Delivery O2 Flow Rate FiO2 05/13/18 14:30 60 16 94 Facial 40 05/13/18 12:51 60 05/13/18 12:49 59 05/13/18 12:00 97.1 55 18 86/52 (63) 90 05/13/18 09:00 Nasal Cannula 2.0 05/13/18 08:25 100 Nasal Cannula 2.0 28 05/13/18 08:25 61 20 Nasal Cannula 2.0 28 05/13/18 08:25 Nasal Cannula 2.0 28 05/13/18 08:00 97.3 61 20 113/57 (75) 95 05/13/18 04:00 98.2 66 24 112/60 (77) 94 05/13/18 00:00 97.5 63 24 114/82 (93) 95 05/12/18 21:00 Nasal Cannula 2.0 05/12/18 20:00 98.0 64 22 122/75 (91) 94 05/12/18 18:41 Nasal Cannula 2.0 05/12/18 16:45 98.1 66 20 120/75 (90) 95 05/12/18 15:10 98.5 69 18 119/72 99 Room Air Intake and Output 05/12/18 05/13/18 19:00 07:00 Intake Total 160 ml 395 ml Balance 160 ml 395 ml Intake Oral 50 ml 240 ml IV Total 110 ml 155 ml # Voids 1 Laboratory Tests Test 05/13/18 06:55 05/13/18 08:45 05/13/18 09:55 05/13/18 13:20 White Blood Count 7.7 K/UL (4.8-10.8) 8.2 K/UL (4.8-10.8) Red Blood Count 5.25 M/UL (4.20-5.40) 4.98 M/UL (4.20-5.40) Hemoglobin 12.8 G/DL (12.0-16.0) 12.0 G/DL (12.0-16.0) Hematocrit 45.4 % (37.0-47.0) 42.9 % (37.0-47.0) Mean Corpuscular Volume 86 FL (80-99) 86 FL (80-99) Mean Corpuscular Hemoglobin 24.5 PG (27.0-31.0) L 24.2 PG (27.0-31.0) L Mean Corpuscular Hemoglobin Concent 28.3 G/DL (32.0-36.0) L 28.1 G/DL (32.0-36.0) L Red Cell Distribution Width 19.2 % (11.6-14.8) H 19.1 % (11.6-14.8) H Platelet Count 223 K/UL (150-450) 206 K/UL (150-450) Mean Platelet Volume 7.7 FL (6.5-10.1) 8.9 FL (6.5-10.1) Neutrophils (%) (Auto) 71.3 % (45.0-75.0) 71.9 % (45.0-75.0) Lymphocytes (%) (Auto) 10.3 % (20.0-45.0) L 11.5 % (20.0-45.0) L Monocytes (%) (Auto) 15.2 % (1.0-10.0) H 15.0 % (1.0-10.0) H Eosinophils (%) (Auto) 0.2 % (0.0-3.0) 0.3 % (0.0-3.0) Basophils (%) (Auto) 3.1 % (0.0-2.0) H 1.4 % (0.0-2.0) Sodium Level 142 MMOL/L (136-145) 140 MMOL/L (136-145) Potassium Level 4.5 MMOL/L (3.5-5.1) 4.6 MMOL/L (3.5-5.1) Chloride Level 103 MMOL/L (98-107) 103 MMOL/L (98-107) Carbon Dioxide Level 29 MMOL/L (21-32) 25 MMOL/L (21-32) Anion Gap 11 mmol/L (5-15) 12 mmol/L (5-15) Blood Urea Nitrogen 47 mg/dL (7-18) H 48 mg/dL (7-18) H Creatinine 3.6 MG/DL (0.55-1.30) H 3.7 MG/DL (0.55-1.30) H Estimat Glomerular Filtration Rate 15.4 mL/min (>60) 14.9 mL/min (>60) Glucose Level 82 MG/DL (74-106) 103 MG/DL (74-106) Hemoglobin A1c 6.3 % (4.3-6.0) H Uric Acid 12.5 MG/DL (2.6-7.2) H Calcium Level 9.3 MG/DL (8.5-10.1) 9.1 MG/DL (8.5-10.1) Phosphorus Level 7.5 MG/DL (2.5-4.9) H Magnesium Level 2.3 MG/DL (1.8-2.4) Total Bilirubin 3.7 MG/DL (0.2-1.0) H 3.4 MG/DL (0.2-1.0) H Direct Bilirubin 2.8 MG/DL (0.0-0.3) H 2.5 MG/DL (0.0-0.3) H Gamma Glutamyl Transpeptidase 204 U/L (5-85) H Aspartate Amino Transf (AST/SGOT) 301 U/L (15-37) H 285 U/L (15-37) H Alanine Aminotransferase (ALT/SGPT) 93 U/L (12-78) H 87 U/L (12-78) H Alkaline Phosphatase 287 U/L (46-116) H 248 U/L (46-116) H Pro-B-Type Natriuretic Peptide 2257 pg/mL (0-125) H Total Protein 7.9 G/DL (6.4-8.2) 7.0 G/DL (6.4-8.2) Albumin 3.3 G/DL (3.4-5.0) L 2.9 G/DL (3.4-5.0) L Globulin 4.6 g/dL 4.1 g/dL Albumin/Globulin Ratio 0.7 (1.0-2.7) L 0.7 (1.0-2.7) L Triglycerides Level 92 MG/DL (30-150) Cholesterol Level 105 MG/DL (< 200) LDL Cholesterol 55 mg/dL (<100) HDL Cholesterol 39 MG/DL (40-60) L Cholesterol/HDL Ratio 2.7 (3.3-4.4) L Thyroid Stimulating Hormone (TSH) 3.968 uiU/mL (0.358-3.740) Urine Color Brown Urine Appearance Cloudy Urine pH 5 (4.5-8.0) Urine Specific [place] 1.025 (1.005-1.035) Urine Protein 3+ (NEGATIVE) H Urine Glucose (UA) Negative (NEGATIVE) Urine Ketones 2+ (NEGATIVE) H Urine Blood 4+ (NEGATIVE) H Urine Nitrite Negative (NEGATIVE) Urine Bilirubin 2+ (NEGATIVE) H Urine Ictotest Negative (NEGATIVE) Urine Urobilinogen 8 MG/DL (0.0-1.0) H Urine Leukocyte Esterase 1+ (NEGATIVE) H Urine RBC 10-15 /HPF (0 - 2) H Urine WBC 2-4 /HPF (0 - 2) Urine Squamous Epithelial Cells Few /LPF (NONE/OCC) Urine Bacteria Moderate /HPF (NONE) H Troponin I 0.189 ng/mL (0.000-0.056) Ammonia 72 umol/L (11-32) H Test 05/13/18 13:32 Arterial Blood pH 7.257 (7.350-7.450) Arterial Blood Partial Pressure CO2 60.6 mmHg (35.0-45.0) *H Arterial Blood Partial Pressure O2 56.6 mmHg (75.0-100.0) L Arterial Blood HCO3 26.4 mmol/L (22.0-26.0) H Arterial Blood Oxygen Saturation 85.2 % (95-100) *L Arterial Blood Base Excess -1.8 (-2-2) Aditya Test Positive Microbiology Date/Time Source Procedure Growth Status 05/12/18 18:20 Leg Right Gram Stain - Final Resulted 05/12/18 18:20 Leg Right Wound Culture Pending Resulted 05/12/18 18:20 Leg Left Gram Stain - Final Resulted 05/12/18 18:20 Leg Left Wound Culture Pending Resulted Height (Feet): 5 Height (Inches): 3.00 Weight (Pounds): 199 Medications Current Medications Medications (Trade) Dose Ordered Sig/Toya Route PRN Reason Start Time Stop Time Status Last Admin Dose Admin Acetaminophen/ Hydrocodone Bitart (Thayer 5/325) 1 tab Q4H PRN ORAL Moderate Pain (Pain Scale 4-6) 05/13/18 13:00 05/19/18 16:59 Aztreonam 1 gm/ Dextrose 55 ml @ 110 mls/hr Q8HR@0000,0800,1600 IVPB 05/13/18 16:00 05/20/18 00:00 Clindamycin HCl/ Dextrose 50 ml @ 100 mls/hr Q8HR IV 05/13/18 14:00 05/19/18 21:59 05/13/18 14:32 Dextrose (Dextrose 50%) 25 ml Q30M PRN IV Hypoglycemia 05/13/18 13:00 06/11/18 16:59 Dextrose (Dextrose 50%) 50 ml Q30M PRN IV Hypoglycemia 05/13/18 13:00 06/11/18 16:59 Dextrose/Sodium Chloride 1,000 ml @ 75 mls/hr [id number] IV 05/13/18 13:30 06/12/18 13:29 05/13/18 14:32 Enoxaparin Sodium (Lovenox) 100 mg Q24H SUBQ 05/13/18 14:00 06/12/18 13:59 Furosemide (Lasix) 40 mg DAILY ORAL 05/14/18 09:00 06/12/18 08:59 Gabapentin (Neurontin) 300 mg Q12HR ORAL 05/13/18 21:00 06/11/18 20:59 Insulin Aspart (NovoLOG) BEFORE MEALS AND HS SUBQ 05/13/18 16:30 06/11/18 20:59 Lactulose (Cephulac) 10 gm THREE TIMES A DAY ORAL 05/13/18 18:00 06/12/18 17:59 Levothyroxine Sodium (Synthroid) 25 mcg DAILY@0630 ORAL 05/14/18 06:30 06/13/18 06:29 Pantoprazole (Protonix) 40 mg DAILY ORAL 05/14/18 09:00 06/12/18 08:59 Temazepam (Restoril) 15 mg HSPRN PRN ORAL Insomnia 05/13/18 17:00 05/19/18 16:59 Assessment/Plan Assessment/Plan 67 y/o female w/ DM, CKD, morbid obesity admitted with b/l LE cellulitis and altered mental status. Problem List: 1. Altered mental status 2. Acute hypercapnic respiratory failure 3. Bilateral lower extremity cellulitis 4. CKD 5. DM 6. Morbid obesity Plan: -BiPAP 03/31 continusous, ABG repeat in several hours -monitor volumes, renal function -Abx per ID -f/u cultures -Monitor mental status -monitor cellulitis Hemal Ritchie MD May 13, 2018 15:07
--- NOTE | 2018-05-13 15:37 | Podiatric Progress Note ---
Assessment/Plan Patient Lilienzo Alcantar is a 67 year old female who was admitted on May 12, 2018 at 14:05 with Problems: (1) Edema (2) Cellulitis of both lower extremities (3) DM (diabetes mellitus) (4) Venous stasis ulcers of both lower extremities (5) Painful legs and moving toes Assessment/Plan ulceration is being followed by Dr. Carmen awaiting vascular consult. continue local wound care and application of Betadine to her toes patient will be followed. Subjective Allergies: Coded Allergies: ASPIRIN (Verified Allergy, Intermediate, Hives, 01/06/13) PENICILLINS (Verified Allergy, Intermediate, Hives, 01/06/13) Subjective Patient is seen by bedside f/u ischemic toes and blister formation. Patient is pending vascular consult. Objective Exam Last 24 Hour Vital Signs Date Time Temp Pulse Resp B/P (MAP) Pulse Ox O2 Delivery O2 Flow Rate FiO2 05/13/18 14:30 60 16 94 Facial 40 05/13/18 12:51 60 05/13/18 12:49 59 05/13/18 12:00 97.1 55 18 86/52 (63) 90 05/13/18 09:00 Nasal Cannula 2.0 05/13/18 08:25 100 Nasal Cannula 2.0 28 05/13/18 08:25 61 20 Nasal Cannula 2.0 28 05/13/18 08:25 Nasal Cannula 2.0 28 05/13/18 08:00 97.3 61 20 113/57 (75) 95 05/13/18 04:00 98.2 66 24 112/60 (77) 94 05/13/18 00:00 97.5 63 24 114/82 (93) 95 05/12/18 21:00 Nasal Cannula 2.0 05/12/18 20:00 98.0 64 22 122/75 (91) 94 05/12/18 18:41 Nasal Cannula 2.0 05/12/18 16:45 98.1 66 20 120/75 (90) 95 Laboratory Tests Test 05/13/18 06:55 05/13/18 08:45 05/13/18 09:55 05/13/18 13:20 White Blood Count 7.7 K/UL (4.8-10.8) 8.2 K/UL (4.8-10.8) Red Blood Count 5.25 M/UL (4.20-5.40) 4.98 M/UL (4.20-5.40) Hemoglobin 12.8 G/DL (12.0-16.0) 12.0 G/DL (12.0-16.0) Hematocrit 45.4 % (37.0-47.0) 42.9 % (37.0-47.0) Mean Corpuscular Volume 86 FL (80-99) 86 FL (80-99) Mean Corpuscular Hemoglobin 24.5 PG (27.0-31.0) L 24.2 PG (27.0-31.0) L Mean Corpuscular Hemoglobin Concent 28.3 G/DL (32.0-36.0) L 28.1 G/DL (32.0-36.0) L Red Cell Distribution Width 19.2 % (11.6-14.8) H 19.1 % (11.6-14.8) H Platelet Count 223 K/UL (150-450) 206 K/UL (150-450) Mean Platelet Volume 7.7 FL (6.5-10.1) 8.9 FL (6.5-10.1) Neutrophils (%) (Auto) 71.3 % (45.0-75.0) 71.9 % (45.0-75.0) Lymphocytes (%) (Auto) 10.3 % (20.0-45.0) L 11.5 % (20.0-45.0) L Monocytes (%) (Auto) 15.2 % (1.0-10.0) H 15.0 % (1.0-10.0) H Eosinophils (%) (Auto) 0.2 % (0.0-3.0) 0.3 % (0.0-3.0) Basophils (%) (Auto) 3.1 % (0.0-2.0) H 1.4 % (0.0-2.0) Sodium Level 142 MMOL/L (136-145) 140 MMOL/L (136-145) Potassium Level 4.5 MMOL/L (3.5-5.1) 4.6 MMOL/L (3.5-5.1) Chloride Level 103 MMOL/L (98-107) 103 MMOL/L (98-107) Carbon Dioxide Level 29 MMOL/L (21-32) 25 MMOL/L (21-32) Anion Gap 11 mmol/L (5-15) 12 mmol/L (5-15) Blood Urea Nitrogen 47 mg/dL (7-18) H 48 mg/dL (7-18) H Creatinine 3.6 MG/DL (0.55-1.30) H 3.7 MG/DL (0.55-1.30) H Estimat Glomerular Filtration Rate 15.4 mL/min (>60) 14.9 mL/min (>60) Glucose Level 82 MG/DL (74-106) 103 MG/DL (74-106) Hemoglobin A1c 6.3 % (4.3-6.0) H Uric Acid 12.5 MG/DL (2.6-7.2) H Calcium Level 9.3 MG/DL (8.5-10.1) 9.1 MG/DL (8.5-10.1) Phosphorus Level 7.5 MG/DL (2.5-4.9) H Magnesium Level 2.3 MG/DL (1.8-2.4) Total Bilirubin 3.7 MG/DL (0.2-1.0) H 3.4 MG/DL (0.2-1.0) H Direct Bilirubin 2.8 MG/DL (0.0-0.3) H 2.5 MG/DL (0.0-0.3) H Gamma Glutamyl Transpeptidase 204 U/L (5-85) H Aspartate Amino Transf (AST/SGOT) 301 U/L (15-37) H 285 U/L (15-37) H Alanine Aminotransferase (ALT/SGPT) 93 U/L (12-78) H 87 U/L (12-78) H Alkaline Phosphatase 287 U/L (46-116) H 248 U/L (46-116) H Pro-B-Type Natriuretic Peptide 2257 pg/mL (0-125) H Total Protein 7.9 G/DL (6.4-8.2) 7.0 G/DL (6.4-8.2) Albumin 3.3 G/DL (3.4-5.0) L 2.9 G/DL (3.4-5.0) L Globulin 4.6 g/dL 4.1 g/dL Albumin/Globulin Ratio 0.7 (1.0-2.7) L 0.7 (1.0-2.7) L Triglycerides Level 92 MG/DL (30-150) Cholesterol Level 105 MG/DL (< 200) LDL Cholesterol 55 mg/dL (<100) HDL Cholesterol 39 MG/DL (40-60) L Cholesterol/HDL Ratio 2.7 (3.3-4.4) L Thyroid Stimulating Hormone (TSH) 3.968 uiU/mL (0.358-3.740) Urine Color Brown Urine Appearance Cloudy Urine pH 5 (4.5-8.0) Urine Specific [place] 1.025 (1.005-1.035) Urine Protein 3+ (NEGATIVE) H Urine Glucose (UA) Negative (NEGATIVE) Urine Ketones 2+ (NEGATIVE) H Urine Blood 4+ (NEGATIVE) H Urine Nitrite Negative (NEGATIVE) Urine Bilirubin 2+ (NEGATIVE) H Urine Ictotest Negative (NEGATIVE) Urine Urobilinogen 8 MG/DL (0.0-1.0) H Urine Leukocyte Esterase 1+ (NEGATIVE) H Urine RBC 10-15 /HPF (0 - 2) H Urine WBC 2-4 /HPF (0 - 2) Urine Squamous Epithelial Cells Few /LPF (NONE/OCC) Urine Bacteria Moderate /HPF (NONE) H Troponin I 0.189 ng/mL (0.000-0.056) Ammonia 72 umol/L (11-32) H Test 05/13/18 13:32 Arterial Blood pH 7.257 (7.350-7.450) Arterial Blood Partial Pressure CO2 60.6 mmHg (35.0-45.0) *H Arterial Blood Partial Pressure O2 56.6 mmHg (75.0-100.0) L Arterial Blood HCO3 26.4 mmol/L (22.0-26.0) H Arterial Blood Oxygen Saturation 85.2 % (95-100) *L Arterial Blood Base Excess -1.8 (-2-2) Aditya Test Positive Microbiology Date/Time Source Procedure Growth Status 05/12/18 18:20 Leg Right Gram Stain - Final Resulted 05/12/18 18:20 Leg Right Wound Culture Pending Resulted Musculoskeletal Musculoskeletal: pain with palpation Vascular Pulses: 0 dorsalis pedis (R), 0 dorsalis pedis (L), 0 posterior tibial (R), 0 posterior tibial (L) Edema: 2+ (2-4mm) foot (L), 2+ (2-4mm) foot (R), 2+ (2-4mm) ankle (L), 2+ (2- 4mm) ankle (R), 2+ (2-4mm) leg (L), 2+ (2-4mm) leg (R) Pedal hair present: No Visible vascular abnormality: stasis pigmentation Vascular discoloration: blanchable erythema Temperature: cool Dermatological Dermatological Narrative b/l feet ischemia has not changed R foot temp has not increased since initial visit and noted to be cold to touch. blisters are intact to the dorsa hallux toe. no drainage, pus or discharge is seen. dusky skin changes noted but gangrene changes has not yet been seen. L anterior bowman ulcer noted to be stable . Lawrence Barrera DPM May 13, 2018 15:37
[2018-05-13] MEDS ORDERED: Aztreonam Inj 1 GM in D5W 55 ML IVPB SCH (16:00)
--- NOTE | 2018-05-13 16:06 | NUR ---
CASE MANAGEMENT:REVIEW FROM HOME TO ER CC; EDEMA AND PAIN X2 WEEKS SI: BLE CELLULITIS. ARF. VENOUS STASIS 98.4 66 18 118/75 97% ON RA BUN+47 CR+3.6 IS: IV AZACTAM 500CC NS BOLUS WOUND CULTURE BLOOD CX : TO TELEMETRY INTERQUAL CRITERIA MET
[2018-05-13] MEDS ORDERED: NovoLOG Insulin Flexpen SUBQ SCH (16:30)
--- NOTE | 2018-05-13 16:31 | Diagnostic Imaging Report ---
Indication: Foot Pain Comparison: None Findings: 2 views of the right foot were obtained. Soft tissue swelling noted nonspecific. Degenerative changes in the midfoot demonstrated. No obvious fracture or erosive changes are identified. IMPRESSION: Soft tissue swelling, nonspecific Arthrosis in the mid foot region
--- NOTE | 2018-05-13 16:31 | NUR ---
NURSE NOTES: Repeat ABG has worsened from previous ABG. Dr Ritchie notified. Patient to be changed to 15/8 setting on BiPAP and repeat ABG in 1 hour.
--- NOTE | 2018-05-13 16:32 | Diagnostic Imaging Report ---
Indication: right leg pain Comparison: None Findings: Two views of the right tibia and fibula were obtained. No acute fracture, malalignment, or periosteal reaction are identified. Bones are osteopenic. Soft tissue swelling is noted. This is nonspecific Impression: Soft tissue swelling.
--- NOTE | 2018-05-13 17:24 | Consultation ---
Consult Note Consult Note asked to eval for renal failure 67-year-old female presents ED for evaluation. Patient states that she's got worsening pain and swelling to her lower extremities. Has chronic venous ulcers in her legs. Being managed by Dr. Carmen. States there is increased swelling and pain to the lower extremities. Pain is throbbing, 9 out of 10, nonradiating. Denies any fevers or chills. No other aggravating relieving factors. Denies any other associated symptoms Allergies: ASPIRIN (Verified Allergy, Intermediate, Hives, 01/06/13) PENICILLINS (Verified Allergy, Intermediate, Hives, 01/06/13) Past Medical History: DM, HTN, COPD Past Surgical History: other - chronic venous ulcers Past Medical History: No History, Except For Hx Cardiac Problems: Yes - AFIBB Hx Hypertension: Yes Hx COPD: Yes Hx Diabetes: Yes - DM II Hx Gastrointestinal Problems: Yes Hx Neurological Problems: Yes Hx Peripheral Neuropathy: Yes Assessment/Plan Diabetic Nephropathy CKD Encephalopathy, CO2 retainer Obesity High Trop High Bili UTI Bilateral LE cellulitis Anemia Anaya Urine studies Avoid nephrotoxics Pulmonary support monitor renal parameters 2D echo kidney WESLEY per orders Tr Strange MD May 13, 2018 17:24
--- NOTE | 2018-05-13 17:29 | NUR ---
RESPIRATORY NOTE: ABG drawn at 1430, result in the system. LUCIO [place] inform Dr. Ritchie about the ABG result. Dr. Ritchie ordered Bipap 09/12, ABG in 1 hour. Carried on the order. Pt is tolerating well. Will continue to monitor pt. Addendum: 05/13/18 at 1802 by Namtran N Jones RT ABG drawn at 1630 not 1430. Recommended Bipap 13/09 to LUCIO [place], awaiting for Dr. Ritchie's response. Will continue to monitor pt in the meantime.
[2018-05-13] MEDS: Lactulose 10gm/15ml UDC ORAL SCH ×2 (17:45→18:00)
--- NOTE | 2018-05-13 18:24 | Consultation ---
History of Present Illness General Chief Complaint: Edema Referring physician: TORI Reason for Consultation: ELEVATED AMMONIA LEVELS Present Illness HPI 67-year-old -[place] female with past medical history of depression, anxiety, diabetes, hypertension, COPD, and chronic venous ulcers, who is admitted for medical stabilization. The pt endorses waxing and waning of consciousness. Per her nurse she was lethargic with episodes of agitation. The pt at baseline is alert and oriented. the pt is unable to provide hx. Allergies: Coded Allergies: ASPIRIN (Verified Allergy, Intermediate, Hives, 01/06/13) PENICILLINS (Verified Allergy, Intermediate, Hives, 01/06/13) Medication History Scheduled Amiodarone Hcl* (Cordarone*), 200 MG ORAL DAILY, (Reported) Apixaban (Eliquis), 5 MG PO Q12HR, (Reported) Apixaban (Eliquis), 5 MG PO BID, (Reported) Atorvastatin Calcium* (Lipitor*), 20 MG ORAL DAILY, (Reported) Carvedilol (Coreg), 3.125 MG ORAL EVERY 12 HOURS, (Reported) Digoxin* (Digoxin*), 0.125 MG ORAL DAILY, (Reported) Diphenhydramine Hcl* (Diphenhydramine Hcl*), 25 MG ORAL QHS, (Reported) Escitalopram Oxalate* (Lexapro*), 10 MG ORAL DAILY, (Reported) Furosemide* (Lasix*), 40 MG ORAL DAILY, (Reported) Furosemide* (Lasix*), 80 MG ORAL BID, (Reported) Gabapentin* (Gabapentin*), 300 MG ORAL BID, (Reported) Hydrocortisone/Aloe Vera (Hydrocortisone Plus 1% Cream), 28.4 GM TP TID, ( Reported) Insulin Aspart* (Novolog*), 0 SUBQ AC+HS, (Reported) Losartan Potassium* (Losartan Potassium*), 25 MG ORAL DAILY, (Reported) Metformin Hcl* (Metformin Hcl*), 1,000 MG ORAL BID, (Reported) Omeprazole (Prilosec), 20 MG ORAL DAILY, (Reported) Potassium Chloride* (K-Dur*), 20 MEQ ORAL TWICE A DAY Sildenafil Citrate (Sildenafil), 20 MG ORAL TID, (Reported) Sitagliptin (Januvia), 100 MG ORAL DAILY, (Reported) Scheduled PRN Acetaminophen With Codeine (T#3) (Tylenol #3 Tab*), 1 TAB ORAL Q6HR PRN for For Pain, (Reported) Acetaminophen* (Acetaminophen 325MG Tablet*), 650 MG ORAL Q4H PRN for Mild Pain/ Temp > 100.5, (Reported) Clonidine Hcl* (Catapres*), 0.1 MG ORAL TID PRN for elevated sbp, (Reported) Hydrocodone Bit/Acetaminophen 10-325* ([place] 10-325*), 1 TAB ORAL Q4H PRN for For Pain, (Reported) Hydrocodone/Acetaminophen (Hydrocodon-Acetaminophn 10-325), 1 TAB ORAL Q4H PRN for For Pain, (Reported) Ipratropium/Albuterol Sulfate (DuoNeb 0.5-3(2.5)mg/3ml), 3 ML HHN Q4HR PRN for Shortness of Breath, (Reported) Ondansetron* (Zofran*), 4 MG ORAL Q6H PRN for Nausea & Vomiting, (Reported) Polyethylene Glycol 3350* (Miralax*), 17 GM ORAL DAILY PRN for Constipation, ( Reported) Temazepam* (Restoril*), 15 MG ORAL BEDTIME PRN for Insomnia, (Reported) Miscellaneous Medications Hc/Mineral Oil/Petrolat,Wht 1% (Hydrocortisone 1% Absorbase), 25 GM TP, ( Reported) Hydrocortisone/Aloe Vera (Hydrocortisone Plus 1% Cream), 28.4 GM TP, (Reported) Hydrocortisone/Aloe Vera (Hydrocortisone Plus 1% Cream), 28.4 GM TP, (Reported) Patient History Limited by: medical condition History Provided By: Medical Record, PMD Healthcare decision maker Resuscitation status Full Code Advanced Directive on File Past Medical/Surgical History Past Medical/Surgical History: (1) Gait abnormality (2) Ventricular tachycardia (3) Scabies (4) Fever (5) Pulmonary edema (6) Soft palate edema (7) Fibroids (8) Acute chest pain (9) Acute bronchitis (10) Tobacco user (11) chest pain (12) ARF (acute renal failure) (13) Cellulitis of both lower extremities (14) Venous stasis ulcers of both lower extremities (15) DM (diabetes mellitus) (16) CKD (chronic kidney disease) (17) Painful legs and moving toes (18) Bilateral lower leg cellulitis (19) Nonhealing ulcer of left lower extremity (20) Bilateral lower leg cellulitis (21) COPD (chronic obstructive pulmonary disease) (22) Pulmonary hypertension (23) HTN (hypertension) (24) Morbid (severe) obesity due to excess calories (25) Acute encephalopathy (26) Abdominal distension (27) Liver disease (28) Elevated transaminase level (29) Intractable abdominal pain (30) Hepatic encephalopathy (31) Edema Physical Exam General Appearance: lethargic, confused, agitated Last 24 Hour Vital Signs Date Time Temp Pulse Resp B/P (MAP) Pulse Ox O2 Delivery O2 Flow Rate FiO2 05/13/18 16:35 60 17 97 Facial 40 05/13/18 14:30 60 16 94 Facial 40 05/13/18 12:51 60 05/13/18 12:49 59 05/13/18 12:00 97.1 55 18 86/52 (63) 90 05/13/18 09:00 Nasal Cannula 2.0 05/13/18 08:25 100 Nasal Cannula 2.0 28 05/13/18 08:25 61 20 Nasal Cannula 2.0 28 05/13/18 08:25 Nasal Cannula 2.0 28 05/13/18 08:00 97.3 61 20 113/57 (75) 95 05/13/18 04:00 98.2 66 24 112/60 (77) 94 05/13/18 00:00 97.5 63 24 114/82 (93) 95 05/12/18 21:00 Nasal Cannula 2.0 05/12/18 20:00 98.0 64 22 122/75 (91) 94 05/12/18 18:41 Nasal Cannula 2.0 Intake and Output 05/12/18 05/13/18 19:00 07:00 Intake Total 160 ml 395 ml Balance 160 ml 395 ml Intake Oral 50 ml 240 ml IV Total 110 ml 155 ml # Voids 1 Laboratory Tests Test 05/13/18 06:55 05/13/18 08:45 05/13/18 09:55 05/13/18 13:20 White Blood Count 7.7 K/UL (4.8-10.8) 8.2 K/UL (4.8-10.8) Red Blood Count 5.25 M/UL (4.20-5.40) 4.98 M/UL (4.20-5.40) Hemoglobin 12.8 G/DL (12.0-16.0) 12.0 G/DL (12.0-16.0) Hematocrit 45.4 % (37.0-47.0) 42.9 % (37.0-47.0) Mean Corpuscular Volume 86 FL (80-99) 86 FL (80-99) Mean Corpuscular Hemoglobin 24.5 PG (27.0-31.0) L 24.2 PG (27.0-31.0) L Mean Corpuscular Hemoglobin Concent 28.3 G/DL (32.0-36.0) L 28.1 G/DL (32.0-36.0) L Red Cell Distribution Width 19.2 % (11.6-14.8) H 19.1 % (11.6-14.8) H Platelet Count 223 K/UL (150-450) 206 K/UL (150-450) Mean Platelet Volume 7.7 FL (6.5-10.1) 8.9 FL (6.5-10.1) Neutrophils (%) (Auto) 71.3 % (45.0-75.0) 71.9 % (45.0-75.0) Lymphocytes (%) (Auto) 10.3 % (20.0-45.0) L 11.5 % (20.0-45.0) L Monocytes (%) (Auto) 15.2 % (1.0-10.0) H 15.0 % (1.0-10.0) H Eosinophils (%) (Auto) 0.2 % (0.0-3.0) 0.3 % (0.0-3.0) Basophils (%) (Auto) 3.1 % (0.0-2.0) H 1.4 % (0.0-2.0) Sodium Level 142 MMOL/L (136-145) 140 MMOL/L (136-145) Potassium Level 4.5 MMOL/L (3.5-5.1) 4.6 MMOL/L (3.5-5.1) Chloride Level 103 MMOL/L (98-107) 103 MMOL/L (98-107) Carbon Dioxide Level 29 MMOL/L (21-32) 25 MMOL/L (21-32) Anion Gap 11 mmol/L (5-15) 12 mmol/L (5-15) Blood Urea Nitrogen 47 mg/dL (7-18) H 48 mg/dL (7-18) H Creatinine 3.6 MG/DL (0.55-1.30) H 3.7 MG/DL (0.55-1.30) H Estimat Glomerular Filtration Rate 15.4 mL/min (>60) 14.9 mL/min (>60) Glucose Level 82 MG/DL (74-106) 103 MG/DL (74-106) Hemoglobin A1c 6.3 % (4.3-6.0) H Uric Acid 12.5 MG/DL (2.6-7.2) H Calcium Level 9.3 MG/DL (8.5-10.1) 9.1 MG/DL (8.5-10.1) Phosphorus Level 7.5 MG/DL (2.5-4.9) H Magnesium Level 2.3 MG/DL (1.8-2.4) Total Bilirubin 3.7 MG/DL (0.2-1.0) H 3.4 MG/DL (0.2-1.0) H Direct Bilirubin 2.8 MG/DL (0.0-0.3) H 2.5 MG/DL (0.0-0.3) H Gamma Glutamyl Transpeptidase 204 U/L (5-85) H Aspartate Amino Transf (AST/SGOT) 301 U/L (15-37) H 285 U/L (15-37) H Alanine Aminotransferase (ALT/SGPT) 93 U/L (12-78) H 87 U/L (12-78) H Alkaline Phosphatase 287 U/L (46-116) H 248 U/L (46-116) H Pro-B-Type Natriuretic Peptide 2257 pg/mL (0-125) H Total Protein 7.9 G/DL (6.4-8.2) 7.0 G/DL (6.4-8.2) Albumin 3.3 G/DL (3.4-5.0) L 2.9 G/DL (3.4-5.0) L Globulin 4.6 g/dL 4.1 g/dL Albumin/Globulin Ratio 0.7 (1.0-2.7) L 0.7 (1.0-2.7) L Triglycerides Level 92 MG/DL (30-150) Cholesterol Level 105 MG/DL (< 200) LDL Cholesterol 55 mg/dL (<100) HDL Cholesterol 39 MG/DL (40-60) L Cholesterol/HDL Ratio 2.7 (3.3-4.4) L Thyroid Stimulating Hormone (TSH) 3.968 uiU/mL (0.358-3.740) Urine Color Brown Urine Appearance Cloudy Urine pH 5 (4.5-8.0) Urine Specific [place] 1.025 (1.005-1.035) Urine Protein 3+ (NEGATIVE) H Urine Glucose (UA) Negative (NEGATIVE) Urine Ketones 2+ (NEGATIVE) H Urine Blood 4+ (NEGATIVE) H Urine Nitrite Negative (NEGATIVE) Urine Bilirubin 2+ (NEGATIVE) H Urine Ictotest Negative (NEGATIVE) Urine Urobilinogen 8 MG/DL (0.0-1.0) H Urine Leukocyte Esterase 1+ (NEGATIVE) H Urine RBC 10-15 /HPF (0 - 2) H Urine WBC 2-4 /HPF (0 - 2) Urine Squamous Epithelial Cells Few /LPF (NONE/OCC) Urine Bacteria Moderate /HPF (NONE) H Troponin I 0.189 ng/mL (0.000-0.056) C-Reactive Protein, Quantitative 5.8 mg/dL (0.00-0.90) H Ammonia 72 umol/L (11-32) H Test 05/13/18 13:32 05/13/18 16:30 Arterial Blood pH 7.257 (7.350-7.450) 7.203 (7.350-7.450) Arterial Blood Partial Pressure CO2 60.6 mmHg (35.0-45.0) *H 66.4 mmHg (35.0-45.0) *H Arterial Blood Partial Pressure O2 56.6 mmHg (75.0-100.0) L 88.2 mmHg (75.0-100.0) Arterial Blood HCO3 26.4 mmol/L (22.0-26.0) H 25.5 mmol/L (22.0-26.0) Arterial Blood Oxygen Saturation 85.2 % (95-100) *L 94.7 % (95-100) L Arterial Blood Base Excess -1.8 (-2-2) -3.6 (-2-2) L Aditya Test Positive Positive Microbiology Date/Time Source Procedure Growth Status 05/12/18 18:20 Leg Right Gram Stain - Final Resulted 05/12/18 18:20 Leg Right Wound Culture Pending Resulted 05/12/18 18:20 Leg Left Gram Stain - Final Resulted 05/12/18 18:20 Leg Left Wound Culture Pending Resulted Height (Feet): 5 Height (Inches): 3.00 Weight (Pounds): 199 Medications Current Medications Medications (Trade) Dose Ordered Sig/Toya Route PRN Reason Start Time Stop Time Status Last Admin Dose Admin Acetaminophen/ Hydrocodone Bitart ([place] 5/325) 1 tab Q4H PRN ORAL Moderate Pain (Pain Scale 4-6) 05/13/18 13:00 05/19/18 16:59 05/13/18 15:05 Aztreonam 1 gm/ Dextrose 55 ml @ 110 mls/hr Q8HR@0000,0800,1600 IVPB 05/13/18 16:00 05/20/18 00:00 05/13/18 17:45 Clindamycin HCl/ Dextrose 50 ml @ 100 mls/hr Q8HR IV 05/13/18 14:00 05/19/18 21:59 05/13/18 14:32 Dextrose (Dextrose 50%) 25 ml Q30M PRN IV Hypoglycemia 05/13/18 13:00 06/11/18 16:59 Dextrose (Dextrose 50%) 50 ml Q30M PRN IV Hypoglycemia 05/13/18 13:00 06/11/18 16:59 Dextrose/Sodium Chloride 1,000 ml @ 75 mls/hr [id number] IV 05/13/18 13:30 06/12/18 13:29 05/13/18 14:32 Enoxaparin Sodium (Lovenox) 100 mg Q24H SUBQ 05/13/18 14:00 06/12/18 13:59 05/13/18 15:09 Furosemide (Lasix) 40 mg DAILY ORAL 05/14/18 09:00 06/12/18 08:59 Gabapentin (Neurontin) 300 mg Q12HR ORAL 05/13/18 21:00 06/11/18 20:59 Insulin Aspart (NovoLOG) BEFORE MEALS AND HS SUBQ 05/13/18 16:30 06/11/18 20:59 Lactulose (Cephulac) 10 gm THREE TIMES A DAY ORAL 05/13/18 18:00 06/12/18 17:59 05/13/18 17:45 Levothyroxine Sodium (Synthroid) 25 mcg DAILY@0630 ORAL 05/14/18 06:30 06/13/18 06:29 Pantoprazole (Protonix) 40 mg DAILY ORAL 05/14/18 09:00 06/12/18 08:59 Rifaximin (Xifaxan) 550 mg EVERY 12 HOURS ORAL 05/13/18 21:00 05/20/18 20:59 Temazepam (Restoril) 15 mg HSPRN PRN ORAL Insomnia 05/13/18 17:00 05/19/18 16:59 Assessment/Plan Problem List: (1) Metabolic encephalopathy ICD Codes: G93.41 - Metabolic encephalopathy SNOMED: [id number] Assessment/Plan Dc lexapro dc restoril riperdal prn Hannah Bradley MD May 13, 2018 18:24
--- NOTE | 2018-05-13 19:00 | NUR ---
NURSE NOTES: Repeat ABG done. Patient result has worsened. Dr Ritchie notified. Patient mental status has also declined. Patient hard to arouse and less responsive to pain. Dr Ritchie ordered for patient to transfer to ICU, change BiPAP to 20/8 and repeat ABG in one hour.
--- NOTE | 2018-05-13 19:30 | NUR ---
HAND-OFF: Report given to LUCIO Holliday. Patient VS stable at this time. Patient moved to ICU due to ABG result. Endorsed to follow up with next ABG result. Patient responds to name at this time but is lethargic.
--- NOTE | 2018-05-13 19:37 | NUR ---
RESPIRATORY NOTE: Received pt on BiPAP 09/12, backup rate 16, 40%. Pt is on a facial mask, skin intact, no skin redness/breakdowns noted upon placing mask. Foam tape applied on pt's nosebridge/cheeks/chin to prevent any irritations. Pt is drowsy/lethargic, & getting harder to arouse. B/S tristan. diminished w/ nonproductive cough. BiPAP plugged into red outlet, ambubag at bedside. Pt in no apparent distress at this time. Will continue to monitor pt.
--- NOTE | 2018-05-13 19:40 | NUR ---
RESPIRATORY NOTE: ABG was done for this pt (see lab for results). MD Erma ordered to change settings to 20/8. Pt now on BiPAP 20/8, backup rate 16, 40%. Pt getting more arousable, but still lethargic most of the time. Pt moved to ICU. Pt tolerating new settings. Will continue to monitor pt.
--- NOTE | 2018-05-13 20:00 | NUR ---
NURSE NOTES: Transferred from SDU this 67 yo female with respiratory distress. Received pt per bed in no acute distress; currently on the Bipap at 20/8; fiO2 .40 sats at 97%. Pt lethargic but opens eyes to name and follow commands. Sinus Reinaldo on the monitor, BP 90/63. Skin cool to touch, temp 94.4 axillary. Pt is obese; has bilateral lower leg cellulitis. Pt has a PIV on left hand g24 IVFof D5NS infusing at 75ml/h. No neff cath; pt refusing to have one. Purewick applied instead. Will continue to monitor mental status and CO2 levels. Called Dr Ritchie for ABG results done just prior to transfer.
[2018-05-13] MEDS: D5NS 1,000 ML IV SCH (20:45)
[2018-05-13] MEDS ORDERED: Lactulose 20gm/30ml UDC RECTAL SCH (21:30)
--- NOTE | 2018-05-13 22:00 | NUR ---
NURSE NOTES: Pt more alert and awake. Able to take po meds with juice. Continues on the Bipap. Still no urine output and pt refusing neff cath.
--- NOTE | 2018-05-13 23:53 | Cardiology Progress Note ---
Assessment/Plan Assessment/Plan The patient is seen and examined, full consult note is dictated. Objective Last 24 Hour Vital Signs Date Time Temp Pulse Resp B/P (MAP) Pulse Ox O2 Delivery O2 Flow Rate FiO2 05/13/18 23:04 63 23 97 Facial 40 05/13/18 23:00 62 14 96/56 (69) 98 05/13/18 22:00 60 14 90/62 (71) 98 05/13/18 21:21 60 21 99 Facial 40 05/13/18 21:00 60 14 94/60 (71) 98 05/13/18 20:00 56 05/13/18 20:00 40 05/13/18 20:00 94.4 56 18 90/63 (72) 99 05/13/18 20:00 Bi-pap 05/13/18 19:34 58 17 98 Facial 40 05/13/18 16:35 60 17 97 Facial 40 05/13/18 16:00 97.0 65 18 105/71 (82) 97 05/13/18 14:30 60 16 94 Facial 40 05/13/18 12:51 60 05/13/18 12:49 59 05/13/18 12:00 97.1 55 18 86/52 (63) 90 05/13/18 09:00 Nasal Cannula 2.0 05/13/18 08:25 100 Nasal Cannula 2.0 28 05/13/18 08:25 61 20 Nasal Cannula 2.0 28 05/13/18 08:25 Nasal Cannula 2.0 28 05/13/18 08:00 97.3 61 20 113/57 (75) 95 05/13/18 04:00 98.2 66 24 112/60 (77) 94 05/13/18 00:00 97.5 63 24 114/82 (93) 95 Intake and Output 05/12/18 05/13/18 19:00 07:00 Intake Total 160 ml 395 ml Balance 160 ml 395 ml Intake Oral 50 ml 240 ml IV Total 110 ml 155 ml # Voids 1 Laboratory Tests Test 05/13/18 06:55 05/13/18 08:45 05/13/18 09:55 05/13/18 13:20 White Blood Count 7.7 K/UL (4.8-10.8) 8.2 K/UL (4.8-10.8) Red Blood Count 5.25 M/UL (4.20-5.40) 4.98 M/UL (4.20-5.40) Hemoglobin 12.8 G/DL (12.0-16.0) 12.0 G/DL (12.0-16.0) Hematocrit 45.4 % (37.0-47.0) 42.9 % (37.0-47.0) Mean Corpuscular Volume 86 FL (80-99) 86 FL (80-99) Mean Corpuscular Hemoglobin 24.5 PG (27.0-31.0) L 24.2 PG (27.0-31.0) L Mean Corpuscular Hemoglobin Concent 28.3 G/DL (32.0-36.0) L 28.1 G/DL (32.0-36.0) L Red Cell Distribution Width 19.2 % (11.6-14.8) H 19.1 % (11.6-14.8) H Platelet Count 223 K/UL (150-450) 206 K/UL (150-450) Mean Platelet Volume 7.7 FL (6.5-10.1) 8.9 FL (6.5-10.1) Neutrophils (%) (Auto) 71.3 % (45.0-75.0) 71.9 % (45.0-75.0) Lymphocytes (%) (Auto) 10.3 % (20.0-45.0) L 11.5 % (20.0-45.0) L Monocytes (%) (Auto) 15.2 % (1.0-10.0) H 15.0 % (1.0-10.0) H Eosinophils (%) (Auto) 0.2 % (0.0-3.0) 0.3 % (0.0-3.0) Basophils (%) (Auto) 3.1 % (0.0-2.0) H 1.4 % (0.0-2.0) Sodium Level 142 MMOL/L (136-145) 140 MMOL/L (136-145) Potassium Level 4.5 MMOL/L (3.5-5.1) 4.6 MMOL/L (3.5-5.1) Chloride Level 103 MMOL/L (98-107) 103 MMOL/L (98-107) Carbon Dioxide Level 29 MMOL/L (21-32) 25 MMOL/L (21-32) Anion Gap 11 mmol/L (5-15) 12 mmol/L (5-15) Blood Urea Nitrogen 47 mg/dL (7-18) H 48 mg/dL (7-18) H Creatinine 3.6 MG/DL (0.55-1.30) H 3.7 MG/DL (0.55-1.30) H Estimat Glomerular Filtration Rate 15.4 mL/min (>60) 14.9 mL/min (>60) Glucose Level 82 MG/DL (74-106) 103 MG/DL (74-106) Hemoglobin A1c 6.3 % (4.3-6.0) H Uric Acid 12.5 MG/DL (2.6-7.2) H Calcium Level 9.3 MG/DL (8.5-10.1) 9.1 MG/DL (8.5-10.1) Phosphorus Level 7.5 MG/DL (2.5-4.9) H Magnesium Level 2.3 MG/DL (1.8-2.4) Total Bilirubin 3.7 MG/DL (0.2-1.0) H 3.4 MG/DL (0.2-1.0) H Direct Bilirubin 2.8 MG/DL (0.0-0.3) H 2.5 MG/DL (0.0-0.3) H Gamma Glutamyl Transpeptidase 204 U/L (5-85) H Aspartate Amino Transf (AST/SGOT) 301 U/L (15-37) H 285 U/L (15-37) H Alanine Aminotransferase (ALT/SGPT) 93 U/L (12-78) H 87 U/L (12-78) H Alkaline Phosphatase 287 U/L (46-116) H 248 U/L (46-116) H Pro-B-Type Natriuretic Peptide 2257 pg/mL (0-125) H Total Protein 7.9 G/DL (6.4-8.2) 7.0 G/DL (6.4-8.2) Albumin 3.3 G/DL (3.4-5.0) L 2.9 G/DL (3.4-5.0) L Globulin 4.6 g/dL 4.1 g/dL Albumin/Globulin Ratio 0.7 (1.0-2.7) L 0.7 (1.0-2.7) L Triglycerides Level 92 MG/DL (30-150) Cholesterol Level 105 MG/DL (< 200) LDL Cholesterol 55 mg/dL (<100) HDL Cholesterol 39 MG/DL (40-60) L Cholesterol/HDL Ratio 2.7 (3.3-4.4) L Thyroid Stimulating Hormone (TSH) 3.968 uiU/mL (0.358-3.740) Urine Color Brown Urine Appearance Cloudy Urine pH 5 (4.5-8.0) Urine Specific [place] 1.025 (1.005-1.035) Urine Protein 3+ (NEGATIVE) H Urine Glucose (UA) Negative (NEGATIVE) Urine Ketones 2+ (NEGATIVE) H Urine Blood 4+ (NEGATIVE) H Urine Nitrite Negative (NEGATIVE) Urine Bilirubin 2+ (NEGATIVE) H Urine Ictotest Negative (NEGATIVE) Urine Urobilinogen 8 MG/DL (0.0-1.0) H Urine Leukocyte Esterase 1+ (NEGATIVE) H Urine RBC 10-15 /HPF (0 - 2) H Urine WBC 2-4 /HPF (0 - 2) Urine Squamous Epithelial Cells Few /LPF (NONE/OCC) Urine Bacteria Moderate /HPF (NONE) H Troponin I 0.189 ng/mL (0.000-0.056) C-Reactive Protein, Quantitative 5.8 mg/dL (0.00-0.90) H Ammonia 72 umol/L (11-32) H Test 05/13/18 13:32 05/13/18 16:30 05/13/18 18:40 05/13/18 20:18 Arterial Blood pH 7.257 (7.350-7.450) 7.203 (7.350-7.450) 7.181 (7.350-7.450) 7.217 (7.350-7.450) Arterial Blood Partial Pressure CO2 60.6 mmHg (35.0-45.0) *H 66.4 mmHg (35.0-45.0) *H 74.5 mmHg (35.0-45.0) *H 72.4 mmHg (35.0-45.0) *H Arterial Blood Partial Pressure O2 56.6 mmHg (75.0-100.0) L 88.2 mmHg (75.0-100.0) 80.1 mmHg (75.0-100.0) 103.6 mmHg (75.0-100.0) H Arterial Blood HCO3 26.4 mmol/L (22.0-26.0) H 25.5 mmol/L (22.0-26.0) 27.2 mmol/L (22.0-26.0) H 28.8 mmol/L (22.0-26.0) H Arterial Blood Oxygen Saturation 85.2 % (95-100) *L 94.7 % (95-100) L 93.0 % (95-100) L 96.9 % (95-100) Arterial Blood Base Excess -1.8 (-2-2) -3.6 (-2-2) L -2.7 (-2-2) L -0.7 (-2- 2) Aditya Test Positive Positive Positive Positive Microbiology Date/Time Source Procedure Growth Status 05/12/18 18:20 Leg Right Gram Stain - Final Resulted 05/12/18 18:20 Leg Right Wound Culture Pending Resulted 05/12/18 18:20 Leg Left Gram Stain - Final Resulted 05/12/18 18:20 Leg Left Wound Culture Pending Resulted Justice Erickson MD May 13, 2018 23:53
[2018-05-14] VITALS (40 sets, daily range): BP systolic 62–184; BP diastolic 21–108
--- NOTE | 2018-05-14 | NUR ---
NURSE NOTES: Hypotensive; BP 83/21;83/43 on either arms. Pt more drowsy; blood sugar 106. Called Dr Ritchie and ordered stat ABG and to give 500 ccNS bolus.
[2018-05-14] MEDS: Aztreonam Inj 1 GM in D5W 55 ML IVPB SCH ×3 (00:53→16:11)
[2018-05-14] MEDS ORDERED: Lidocaine 1% Plain 30 ml INJ PRN (01:30)
[2018-05-14] MEDS ORDERED: Heparin 2000 units/Ns 1000ml INJ PRN (01:30)
--- NOTE | 2018-05-14 01:30 | NUR ---
NURSE NOTES: Dr Mckinney called and made aware of the ABG. Ordered to give 500cNS bolus PRN for SBP<90. Pt's BP improved with bolus given earlier. Also ordered for PICC insertion in AM
[2018-05-14] MEDS: D5NS 1,000 ML IV SCH ×2 (01:39→13:49)
--- NOTE | 2018-05-14 03:00 | NUR ---
NURSE NOTES: Continues on the Bipap @ 20/8, fiO2 .70, sats 98-100. Drowsy, arousable to name and pain. PIV sites on Left hand and right hand patent.
--- NOTE | 2018-05-14 04:00 | NUR ---
NURSE NOTES: Still no urine output. Bladder sl firm and distended. Pt agreed to have a neff cath placed. Obtained 40 ml only on insertion. No BM. Redressed bilat lower legs and kept elevated. AM care done.
[2018-05-14] MEDS: NovoLOG Insulin Flexpen SUBQ SCH ×4 (05:56→20:54)
[2018-05-14] MEDS: Clindamycin 900mg 50 ML IV SCH ×3 (05:56→21:47)
--- NOTE | 2018-05-14 06:00 | NUR ---
NURSE NOTES: BP 87/54. Bolused with 500ml NS. Will continue to monitor BP and mental status. Pt still drowsy but arousable.
[2018-05-14] MEDS ORDERED: Levothyroxine 25mcg tab ORAL SCH ×2 (06:30)
--- NOTE | 2018-05-14 07:23 | NUR ---
HAND-OFF: Report given to Brian Donahue RN.
[2018-05-14 07:27] LABS: BASOPHILS % (AUTO) 1.4 % (0.0-2.0); EOSINOPHILS % (AUTO) 0.2 % (0.0-3.0); HEMATOCRIT 39.5 % (37.0-47.0); HEMOGLOBIN 11.5 G/DL (12.0-16.0); LYMPHOCYTES % (AUTO) 8.8 % (20.0-45.0); MEAN CORPUSCULAR VOLUME 86 FL (80-99); MONOCYTES % (AUTO) 11.3 % (1.0-10.0); NEUTROPHILS % (AUTO) 78.3 % (45.0-75.0); PLATELET COUNT 204 K/UL (150-450); RED BLOOD COUNT 4.61 M/UL (4.20-5.40); RED CELL DISTRIBUTION WIDTH 19.3 % (11.6-14.8); WHITE BLOOD COUNT 9.1 K/UL (4.8-10.8)
--- NOTE | 2018-05-14 07:35 | NUR ---
NURSE NOTES: obtained patient from LUCIO Holliday. patient is in bradycardia heart rhythm at 55-59 and Bp above 90SBP, patient is on Bipap with saturations at 94-97%, she is lethargic and not arouseable to shaking or name, no pain noted at this time, ABG pending to be taken by RT. awaiting for BMp and CBC to results, will continue to monitor
--- NOTE | 2018-05-14 07:40 | NUR ---
RESPIRATORY NOTE:Received pt on bipap 20/8 fio2 60%. pt skin intact, with no signs of skin breakdown. will cont. to monitor pt status
[2018-05-14 07:48] LABS: INR 1.6 (0.9-1.1)
[2018-05-14 08:08] LABS: ALANINE AMINOTRANSFERASE 105 U/L (12-78); ALBUMIN 2.7 G/DL (3.4-5.0); ALBUMIN/GLOBULIN RATIO 0.7 (1.0-2.7); ALKALINE PHOSPHATASE 237 U/L (46-116); ANION GAP 7 mmol/L (5-15); ASPARTATE AMINO TRANSFERASE 276 U/L (15-37); BLOOD UREA NITROGEN 51 mg/dL (7-18); CALCIUM 8.5 MG/DL (8.5-10.1); CARBON DIOXIDE 28 MMOL/L (21-32); CHLORIDE 106 MMOL/L (98-107); CREATININE 4.3 MG/DL (0.55-1.30); FERRITIN 28 NG/ML (8-388); POTASSIUM 4.2 MMOL/L (3.5-5.1); SODIUM 141 MMOL/L (136-145)
[2018-05-14 08:11] LABS: BILIRUBIN,DIRECT 2.3 MG/DL (0.0-0.3)
[2018-05-14] MEDS: Lactulose 10gm/15ml UDC ORAL SCH ×2 (09:00→12:25)
[2018-05-14] MEDS ORDERED: Furosemide 40mg tab ORAL SCH ×2 (09:00)
[2018-05-14 09:15] LABS: % IRON SATURATION 10 % (15-50); IRON 32 ug/dL (50-175); TOTAL IRON BINDING CAPACITY 325 ug/dL (250-450)
[2018-05-14 09:21] LABS: PHOSPHORUS 8.1 MG/DL (2.5-4.9)
--- NOTE | 2018-05-14 09:30 | NUR ---
NURSE NOTES: Dr. Ritchie arrive at the bedside and aware of ABG results, along with Dr. Strange at the bedside, both md's agreed patient needed to be intubated, orders obtained and called ER doctor to intubate at the bedside, will continue to monitor.
--- NOTE | 2018-05-14 09:30 | NUR ---
CASE MANAGEMENT: REVIEW SI: BILATERAL LOWER EXTREMITY CELLULITIS . T 98.0 HR 55 RR 14 BP 83/21 SAT 95% BIPAP FIO2 70 ABG: PH 7.136 PCO2 81.2 PO2 108.2 HCO3 26.8 IS: LOVENOX SQ Q24HR LASIX PO QD LACTULOSE PO TID PROTONIX PO QD AZTREONAM IV Q8HR CLINDAMYCIN IV Q8HR RIFAXIMIN PO Q12HR ICU STATUS DCP: PATIENT IS FROM HOME
[2018-05-14] MEDS ORDERED: DOPamine 400mg/250ml 250 ML IV ONE (10:10)
--- NOTE | 2018-05-14 10:10 | NUR ---
NURSE NOTES: Patient intubated by ER doctor Ranjith. intubated on first attempt using 7.5 at 26cm on the lip, etomidate 10mg and succinylcholine 100mg through IV, co2 detector changed color to gold and er doctor auscultated breaths sounds on bilateral lungs, ETT-tube anchored to face and ventilator setting placed to AC18, 650, 100% FIO2 and peep of 5. awaiting for chest x-ray. will continue to monitor.
--- NOTE | 2018-05-14 10:20 | NUR ---
RESPIRATORY NOTE:ERMD dolan intubated pt at 1010 with 7.5 ett and 26cm @ lip. Pt placed on jeri ac 18 vt 650 fio2 100% peep 5. Will cont. to monitor pt status.
--- NOTE | 2018-05-14 10:37 | Pulmonolgy Critical Care Note ---
Critical Care - Asmt/Plan Assessment/Plan: 67 y/o female w/ DM, CKD, morbid obesity admitted with b/l LE cellulitis and altered mental status. Problem List: 1. Altered mental status 2. Acute hypercapnic respiratory failure 3. Bilateral lower extremity cellulitis 4. RACHELLE on CKD 5. DM 6. Morbid obesity 7. 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, continue to monitor HR/BP Renal: check electrolytes Infectious Disease: continue antibiotics Neurologic: keep patient comfortable Prophylaxis: Heparin Disposition: keep in ICU Time Spent (Minutes): other - 100 minutes Critical Care - Objective Last 24 Hour Vital Signs Date Time Temp Pulse Resp B/P (MAP) Pulse Ox O2 Delivery O2 Flow Rate FiO2 05/14/18 07:08 55 15 98 Facial 60 05/14/18 06:00 59 14 87/54 (65) 99 05/14/18 06:00 59 12 91/41 (58) 96 05/14/18 05:12 61 18 100 Facial 70 05/14/18 05:00 98.0 62 15 88/57 (67) 99 05/14/18 05:00 98.0 60 14 92/62 (72) 100 05/14/18 04:00 62 15 88/57 (67) 99 05/14/18 04:00 70 05/14/18 04:00 Bi-pap 05/14/18 04:00 61 05/14/18 03:00 60 14 95/62 (73) 99 05/14/18 02:58 63 17 99 Facial 70 05/14/18 02:00 60 15 93/71 (78) 98 05/14/18 01:00 62 14 90/47 (61) 97 05/14/18 00:45 60 17 95 Facial 70 05/14/18 00:30 60 12 91/69 (76) 97 05/14/18 00:00 Bi-pap 05/14/18 00:00 62 05/14/18 00:00 70 05/14/18 00:00 97.6 60 15 83/21 (41) 95 05/13/18 23:04 63 23 97 Facial 40 05/13/18 23:00 62 14 96/56 (69) 98 05/13/18 22:00 60 14 90/62 (71) 98 05/13/18 21:21 60 21 99 Facial 40 05/13/18 21:00 60 14 94/60 (71) 98 05/13/18 20:00 56 05/13/18 20:00 40 05/13/18 20:00 94.4 56 18 90/63 (72) 99 05/13/18 20:00 Bi-pap 05/13/18 19:34 58 17 98 Facial 40 05/13/18 16:35 60 17 97 Facial 40 05/13/18 16:00 97.0 65 18 105/71 (82) 97 05/13/18 14:30 60 16 94 Facial 40 05/13/18 12:51 60 05/13/18 12:49 59 05/13/18 12:00 97.1 55 18 86/52 (63) 90 Status: obtunded Condition: critical HEENT: atraumatic, normocephalic Lungs: rales Heart: HR/BP unstable Abdomen: soft, non-tender Extremities: other - Edema with erythema and open ulcers/sores Decubiti: none Micro: Microbiology Date/Time Source Procedure Growth Status 05/12/18 14:30 Blood Blood Culture - Preliminary NO GROWTH AFTER 24 HOURS Resulted 05/12/18 14:15 Blood Blood Culture - Preliminary NO GROWTH AFTER 24 HOURS Resulted 05/13/18 08:45 Urine,Clean Catch Urine Culture - Preliminary NO GROWTH AFTER 24 HOURS Resulted 05/12/18 18:20 Leg Right Gram Stain - Final Resulted 05/12/18 18:20 Leg Right Wound Culture Pending Resulted 05/12/18 18:20 Leg Left Gram Stain - Final Resulted 05/12/18 18:20 Leg Left Wound Culture Pending Resulted 05/12/18 17:00 Rectum VRE Culture - Final NO VANCOMYCIN RESISTANT ENTEROCOCCUS ... Complete 05/12/18 17:00 Rectum - Final NO CARBAPENEM-RESISTANT ENTEROBACTERI... Complete Accucheck: 106 Critical Care - Subjective ROS Limited/Unobtainable: Yes ICU Day: 2 Interval Events: Worsening CO2 retention despite increasing BiPAP and increased lethargy. Now mostly unresponsive. BP has been low but stable MAP 60. No fevers. Ammonia higher today. Condition: critical EKG Rhythm: Sinus Bradycardia FI02: 60 Sputum Amount: None I&O: Intake and Output 05/13/18 05/14/18 19:00 07:00 Intake Total 1053 ml 1675 ml Output Total 50 ml Balance 1053 ml 1625 ml Intake Oral 218 ml 240 ml IV Total 835 ml 1435 ml Output Urine Total 50 ml Hemal Ritchie MD May 14, 2018 10:37
--- NOTE | 2018-05-14 11:00 | NUR ---
NURSE NOTES: Dr. Mckinney at the bedside and updated at the bedside of need to intubate, spoke with family waiting in the waiting room.
--- NOTE | 2018-05-14 11:45 | NUR ---
NURSE NOTES: ABG taken by RT and relayed results, dr. Ritchie called and message left to call unit for additional orders, awaiting call back. consent obtained for pICC line placement from daughter, next of kin.
--- NOTE | 2018-05-14 11:48 | GI Progress Note ---
Assessment/Plan Problems: (1) DM (diabetes mellitus) ICD Codes: E11.9 - DM (diabetes mellitus) SNOMED: 80537920 (2) Intractable abdominal pain ICD Codes: R10.9 - Unspecified abdominal pain SNOMED: 01704054 (3) Elevated transaminase level ICD Codes: R74.0 - Nonspecific elevation of levels of transaminase and lactic acid dehydrogenase [LDH] SNOMED: 632771589 (4) Abdominal distension ICD Codes: R14.0 - Abdominal distension (gaseous) SNOMED: 77211133 (5) Liver disease ICD Codes: K76.9 - Liver disease, unspecified SNOMED: 902128612 (6) Acute encephalopathy ICD Codes: G93.40 - Encephalopathy, unspecified SNOMED: 45347506, 593205618 (7) Hepatic encephalopathy ICD Codes: K72.90 - Hepatic failure, unspecified without coma SNOMED: 53793685 Status: unchanged Status Narrative Discussed with Dr. Paul. Assessment/Plan maintain NPO + IVFs cont lactulose, add Xifaxan abdominal US ordered anemia work up OB stool r/o GI bleed monitor H&H, prn transfusions bowel regime ppi fu labs, hepatitis panel will consider endoscopy pending work up, but will require cardiac clearance given elevated troponin levels. The patient was seen and examined at bedside and all new and available data was reviewed in the patients chart. I agree with the above findings, impression and plan. (Patient seen earlier today. Signature stamp does not reflect patient encounter time.). - Robert Paul MD Subjective Gastrointestinal/Abdominal: Reports: no symptoms Objective Last 24 Hour Vital Signs Date Time Temp Pulse Resp B/P (MAP) Pulse Ox O2 Delivery O2 Flow Rate FiO2 05/14/18 10:30 94 19 100 05/14/18 10:00 100 05/14/18 08:00 70 05/14/18 07:08 55 15 98 Facial 60 05/14/18 06:00 59 14 87/54 (65) 99 05/14/18 06:00 59 12 91/41 (58) 96 05/14/18 05:12 61 18 100 Facial 70 05/14/18 05:00 98.0 62 15 88/57 (67) 99 05/14/18 05:00 98.0 60 14 92/62 (72) 100 05/14/18 04:00 62 15 88/57 (67) 99 05/14/18 04:00 70 05/14/18 04:00 Bi-pap 05/14/18 04:00 61 05/14/18 03:00 60 14 95/62 (73) 99 05/14/18 02:58 63 17 99 Facial 70 05/14/18 02:00 60 15 93/71 (78) 98 05/14/18 01:00 62 14 90/47 (61) 97 05/14/18 00:45 60 17 95 Facial 70 05/14/18 00:30 60 12 91/69 (76) 97 05/14/18 00:00 Bi-pap 05/14/18 00:00 62 05/14/18 00:00 70 05/14/18 00:00 97.6 60 15 83/21 (41) 95 05/13/18 23:04 63 23 97 Facial 40 05/13/18 23:00 62 14 96/56 (69) 98 05/13/18 22:00 60 14 90/62 (71) 98 05/13/18 21:21 60 21 99 Facial 40 05/13/18 21:00 60 14 94/60 (71) 98 05/13/18 20:00 56 05/13/18 20:00 40 05/13/18 20:00 94.4 56 18 90/63 (72) 99 05/13/18 20:00 Bi-pap 05/13/18 19:34 58 17 98 Facial 40 05/13/18 16:35 60 17 97 Facial 40 05/13/18 16:00 97.0 65 18 105/71 (82) 97 05/13/18 14:30 60 16 94 Facial 40 05/13/18 12:51 60 05/13/18 12:49 59 05/13/18 12:00 97.1 55 18 86/52 (63) 90 Intake and Output 05/13/18 05/14/18 18:59 06:59 Intake Total 1053 ml 1675 ml Output Total 50 ml Balance 1053 ml 1625 ml Intake Oral 218 ml 240 ml IV Total 835 ml 1435 ml Output Urine Total 50 ml Laboratory Tests Test 05/13/18 13:20 05/13/18 13:32 05/13/18 16:30 05/13/18 18:40 Ammonia 72 umol/L (11-32) H Arterial Blood pH 7.257 (7.350-7.450) 7.203 (7.350-7.450) 7.181 (7.350-7.450) Arterial Blood Partial Pressure CO2 60.6 mmHg (35.0-45.0) *H 66.4 mmHg (35.0-45.0) *H 74.5 mmHg (35.0-45.0) *H Arterial Blood Partial Pressure O2 56.6 mmHg (75.0-100.0) L 88.2 mmHg (75.0-100.0) 80.1 mmHg (75.0-100.0) Arterial Blood HCO3 26.4 mmol/L (22.0-26.0) H 25.5 mmol/L (22.0-26.0) 27.2 mmol/L (22.0-26.0) H Arterial Blood Oxygen Saturation 85.2 % (95-100) *L 94.7 % (95-100) L 93.0 % (95-100) L Arterial Blood Base Excess -1.8 (-2-2) -3.6 (-2-2) L -2.7 (-2-2) L Aditya Test Positive Positive Positive Test 05/13/18 20:18 05/14/18 00:33 05/14/18 06:42 05/14/18 08:05 Arterial Blood pH 7.217 (7.350-7.450) 7.206 (7.350-7.450) 7.136 (7.350-7.450) Arterial Blood Partial Pressure CO2 72.4 mmHg (35.0-45.0) *H 71.0 mmHg (35.0-45.0) *H 81.2 mmHg (35.0-45.0) *H Arterial Blood Partial Pressure O2 103.6 mmHg (75.0-100.0) H 76.9 mmHg (75.0-100.0) 108.2 mmHg (75.0-100.0) H Arterial Blood HCO3 28.8 mmol/L (22.0-26.0) H 27.5 mmol/L (22.0-26.0) H 26.8 mmol/L (22.0-26.0) H Arterial Blood Oxygen Saturation 96.9 % (95-100) 92.2 % (95-100) L 96.6 % (95-100) Arterial Blood Base Excess -0.7 (-2-2) -1.9 (-2-2) -3.9 (-2-2) L Aditya Test Positive Positive Positive White Blood Count 9.1 K/UL (4.8-10.8) Red Blood Count 4.61 M/UL (4.20-5.40) Hemoglobin 11.5 G/DL (12.0-16.0) L Hematocrit 39.5 % (37.0-47.0) Mean Corpuscular Volume 86 FL (80-99) Mean Corpuscular Hemoglobin 24.9 PG (27.0-31.0) L Mean Corpuscular Hemoglobin Concent 29.0 G/DL (32.0-36.0) L Red Cell Distribution Width 19.3 % (11.6-14.8) H Platelet Count 204 K/UL (150-450) Mean Platelet Volume 8.6 FL (6.5-10.1) Neutrophils (%) (Auto) 78.3 % (45.0-75.0) H Lymphocytes (%) (Auto) 8.8 % (20.0-45.0) L Monocytes (%) (Auto) 11.3 % (1.0-10.0) H Eosinophils (%) (Auto) 0.2 % (0.0-3.0) Basophils (%) (Auto) 1.4 % (0.0-2.0) Reticulocyte Count 3.1 % (0.0-2.0) H Prothrombin Time 16.7 SEC (9.30-11.50) H Prothromb Time International Ratio 1.6 (0.9-1.1) H Activated Partial Thromboplast Time 37 SEC (23-33) H Sodium Level 141 MMOL/L (136-145) Potassium Level 4.2 MMOL/L (3.5-5.1) Chloride Level 106 MMOL/L (98-107) Carbon Dioxide Level 28 MMOL/L (21-32) Anion Gap 7 mmol/L (5-15) Blood Urea Nitrogen 51 mg/dL (7-18) H Creatinine 4.3 MG/DL (0.55-1.30) H Estimat Glomerular Filtration Rate 12.5 mL/min (>60) Glucose Level 110 MG/DL (74-106) H Calcium Level 8.5 MG/DL (8.5-10.1) Phosphorus Level 8.1 MG/DL (2.5-4.9) H Magnesium Level 2.2 MG/DL (1.8-2.4) Iron Level 32 ug/dL (50-175) L Total Iron Binding Capacity 325 ug/dL (250-450) Percent Iron Saturation 10 % (15-50) L Unsaturated Iron Binding 293 ug/dL (112-346) Ferritin 28 NG/ML (8-388) Total Bilirubin 3.0 MG/DL (0.2-1.0) H Direct Bilirubin 2.3 MG/DL (0.0-0.3) H Aspartate Amino Transf (AST/SGOT) 276 U/L (15-37) H Alanine Aminotransferase (ALT/SGPT) 105 U/L (12-78) H Alkaline Phosphatase 237 U/L (46-116) H Ammonia 162 umol/L (11-32) H Pro-B-Type Natriuretic Peptide 2233 pg/mL (0-125) H Total Protein 6.8 G/DL (6.4-8.2) Albumin 2.7 G/DL (3.4-5.0) L Globulin 4.1 g/dL Albumin/Globulin Ratio 0.7 (1.0-2.7) L Carcinoembryonic Antigen Pending Vitamin B12 Level > 2000 PG/ML (193-986) H Folate 11.1 NG/ML (8.6-58.9) Thyroid Stimulating Hormone (TSH) 1.929 uiU/mL (0.358-3.740) Free Thyroxine 1.32 NG/DL (0.76-1.46) Cortisol AM Sample Pending Hepatitis A IgM Antibody Pending Hepatitis B Surface Antigen Pending Hepatitis B Core IgM Antibody Pending Hepatitis C Antibody Pending Height (Feet): 5 Height (Inches): 3.00 Weight (Pounds): 200 General Appearance: overweight Cardiovascular: normal rate Respiratory/Chest: normal breath sounds, no respiratory distress, other - intubated Abdominal Exam: other - NGT insertition Otilio Cohen NP May 14, 2018 11:48
--- NOTE | 2018-05-14 11:52 | NUR ---
Social Work This Sw met with patient who is currently in the ICU, will be intubated today according to Dr. Mckinney. Patient is oriented, but currently sedated. This Sw left a message with daughterSal ([phone]) to provide support and obtain further information (patient is currently full code, full treatment). Awaiting call back from daughter at this time. Sw to follow. Addendum: 05/14/18 at 1155 by KAREN MARTIN Addendum: patient is from home, according to nurse reports.
[2018-05-14] MEDS ORDERED: DOPamine 400mg/250ml 250 ML IV SCH (12:00)
--- NOTE | 2018-05-14 12:01 | Diagnostic Imaging Report ---
Indication: Dyspnea Comparison: 05/14/2018 A single view chest radiograph was obtained. Findings: Mild pulmonary vascular congestion demonstrated with prominent central hilar vessels, mild interstitial edema and cardiomegaly. Endotracheal tube in good position just above the tracee. NG tube in good position. IMPRESSION: CHF
--- NOTE | 2018-05-14 12:04 | Diagnostic Imaging Report ---
Indication: NG tube position Comparison: None Single view of the abdomen obtained Findings: NG tube is in good position. IMPRESSION: NG tube in good position
[2018-05-14] MEDS: LORazepam Inj 2mg/ml 1ml IV PRN ×2 (12:15→16:38)
--- NOTE | 2018-05-14 12:30 | NUR ---
RADIOLOGY DEPT CHEST X-RAY DONE.-P.DYE
--- NOTE | 2018-05-14 12:36 | Diagnostic Imaging Report ---
Indication: Dyspnea Comparison: 05/13/2018 A single view chest radiograph was obtained. Findings: Vascular congestion with interstitial edema and marked cardiomegaly again demonstrated unchanged. IMPRESSION: CHF unchanged
--- NOTE | 2018-05-14 12:52 | Nephrology Progress Note ---
Assessment/Plan Problem List: (1) ARF (acute renal failure) (2) Cellulitis of both lower extremities (3) Venous stasis ulcers of both lower extremities (4) DM (diabetes mellitus) (5) CKD (chronic kidney disease) (6) Morbid (severe) obesity due to excess calories (7) Acute hypoxemic respiratory failure Assessment Diabetic Nephropathy acute renal failure super imposed on CKD Encephalopathy, CO2 retainer, respiratory failure acute Obesity High Trop High Bili UTI Bilateral LE cellulitis Anemia Plan pulmonary support / Mechanical ventilation Anaya pressors Urine studies Avoid nephrotoxics monitor renal parameters 2D echo kidney WESLEY Per ID , Pulm... meds IV or OG tube Avoid mind altering meds per orders Subjective ROS Limited/Unobtainable: Yes Objective Objective Last 24 Hour Vital Signs Date Time Temp Pulse Resp B/P (MAP) Pulse Ox O2 Delivery O2 Flow Rate FiO2 05/14/18 12:16 155/99 05/14/18 10:30 94 19 100 05/14/18 10:00 100 05/14/18 08:00 Bi-pap 05/14/18 08:00 70 05/14/18 07:08 55 15 98 Facial 60 05/14/18 06:00 59 14 87/54 (65) 99 05/14/18 06:00 59 12 91/41 (58) 96 05/14/18 05:12 61 18 100 Facial 70 05/14/18 05:00 98.0 62 15 88/57 (67) 99 05/14/18 05:00 98.0 60 14 92/62 (72) 100 05/14/18 04:00 62 15 88/57 (67) 99 05/14/18 04:00 70 05/14/18 04:00 Bi-pap 05/14/18 04:00 61 05/14/18 03:00 60 14 95/62 (73) 99 05/14/18 02:58 63 17 99 Facial 70 05/14/18 02:00 60 15 93/71 (78) 98 05/14/18 01:00 62 14 90/47 (61) 97 05/14/18 00:45 60 17 95 Facial 70 05/14/18 00:30 60 12 91/69 (76) 97 05/14/18 00:00 Bi-pap 05/14/18 00:00 62 05/14/18 00:00 70 05/14/18 00:00 97.6 60 15 83/21 (41) 95 05/13/18 23:04 63 23 97 Facial 40 05/13/18 23:00 62 14 96/56 (69) 98 05/13/18 22:00 60 14 90/62 (71) 98 05/13/18 21:21 60 21 99 Facial 40 05/13/18 21:00 60 14 94/60 (71) 98 05/13/18 20:00 56 05/13/18 20:00 40 05/13/18 20:00 94.4 56 18 90/63 (72) 99 05/13/18 20:00 Bi-pap 05/13/18 19:34 58 17 98 Facial 40 05/13/18 16:35 60 17 97 Facial 40 05/13/18 16:00 97.0 65 18 105/71 (82) 97 05/13/18 14:30 60 16 94 Facial 40 05/13/18 12:51 60 05/13/18 12:49 59 Intake and Output 05/13/18 05/14/18 18:59 06:59 Intake Total 1053 ml 1675 ml Output Total 50 ml Balance 1053 ml 1625 ml Intake Oral 218 ml 240 ml IV Total 835 ml 1435 ml Output Urine Total 50 ml Laboratory Tests 05/13/18 13:20: Ammonia 72H 05/13/18 13:32: Arterial Blood pH 7.257L, Arterial Blood Partial Pressure CO2 60.6*H, Arterial Blood Partial Pressure O2 56.6L, Arterial Blood HCO3 26.4H, Arterial Blood Oxygen Saturation 85.2*L, Arterial Blood Base Excess -1.8, Aditya Test Positive 05/13/18 16:30: Arterial Blood pH 7.203*L, Arterial Blood Partial Pressure CO2 66.4*H, Arterial Blood Partial Pressure O2 88.2, Arterial Blood HCO3 25.5, Arterial Blood Oxygen Saturation 94.7L, Arterial Blood Base Excess -3.6L, Aditya Test Positive 05/13/18 18:40: Arterial Blood pH 7.181*L, Arterial Blood Partial Pressure CO2 74.5*H, Arterial Blood Partial Pressure O2 80.1, Arterial Blood HCO3 27.2H, Arterial Blood Oxygen Saturation 93.0L, Arterial Blood Base Excess -2.7L, Aditya Test Positive 05/13/18 20:18: Arterial Blood pH 7.217*L, Arterial Blood Partial Pressure CO2 72.4*H, Arterial Blood Partial Pressure O2 103.6H, Arterial Blood HCO3 28.8H, Arterial Blood Oxygen Saturation 96.9, Arterial Blood Base Excess -0.7, Aditya Test Positive 05/14/18 00:33: Arterial Blood pH 7.206*L, Arterial Blood Partial Pressure CO2 71.0*H, Arterial Blood Partial Pressure O2 76.9, Arterial Blood HCO3 27.5H, Arterial Blood Oxygen Saturation 92.2L, Arterial Blood Base Excess -1.9, Aditya Test Positive 05/14/18 06:42: White Blood Count 9.1, Red Blood Count 4.61, Hemoglobin 11.5L, Hematocrit 39.5, Mean Corpuscular Volume 86, Mean Corpuscular Hemoglobin 24.9L, Mean Corpuscular Hemoglobin Concent 29.0L, Red Cell Distribution Width 19.3H, Platelet Count 204 , Mean Platelet Volume 8.6, Neutrophils (%) (Auto) 78.3H, Lymphocytes (%) (Auto ) 8.8L, Monocytes (%) (Auto) 11.3H, Eosinophils (%) (Auto) 0.2, Basophils (%) ( Auto) 1.4, Reticulocyte Count 3.1H, Prothrombin Time 16.7H, Prothromb Time International Ratio 1.6H, Activated Partial Thromboplast Time 37H, Sodium Level 141, Potassium Level 4.2, Chloride Level 106, Carbon Dioxide Level 28, Anion Gap 7, Blood Urea Nitrogen 51H, Creatinine 4.3H, Estimat Glomerular Filtration Rate 12.5, Glucose Level 110H, Calcium Level 8.5, Phosphorus Level 8.1H, Magnesium Level 2.2, Iron Level 32L, Total Iron Binding Capacity 325, Percent Iron Saturation 10L, Unsaturated Iron Binding 293, Ferritin 28, Total Bilirubin 3.0H, Direct Bilirubin 2.3H, Aspartate Amino Transf (AST/SGOT) 276H, Alanine Aminotransferase (ALT/SGPT) 105H, Alkaline Phosphatase 237H, Ammonia 162H, Pro-B -Type Natriuretic Peptide 2233H, Total Protein 6.8, Albumin 2.7L, Globulin 4.1, Albumin/Globulin Ratio 0.7L, Carcinoembryonic Antigen [Pending], Vitamin B12 Level > 2000H, Folate 11.1, Thyroid Stimulating Hormone (TSH) 1.929, Free Thyroxine 1.32, Cortisol AM Sample [Pending], Hepatitis A IgM Antibody [Pending] , Hepatitis B Surface Antigen [Pending], Hepatitis B Core IgM Antibody [Pending] , Hepatitis C Antibody [Pending] 05/14/18 08:05: Arterial Blood pH 7.136*L, Arterial Blood Partial Pressure CO2 81.2*H, Arterial Blood Partial Pressure O2 108.2H, Arterial Blood HCO3 26.8H, Arterial Blood Oxygen Saturation 96.6, Arterial Blood Base Excess -3.9L, Aditya Test Positive 05/14/18 11:45: Arterial Blood pH 7.184*L, Arterial Blood Partial Pressure CO2 72.7*H, Arterial Blood Partial Pressure O2 86.8, Arterial Blood HCO3 26.8H, Arterial Blood Oxygen Saturation 94.9L, Arterial Blood Base Excess -3.2L, Aditya Test Positive Height (Feet): 5 Height (Inches): 3.00 Weight (Pounds): 200 General Appearance: lethargic EENT: other - vented Cardiovascular: other - variable Respiratory/Chest: decreased breath sounds Abdomen: other - obese Tr Strange MD May 14, 2018 12:52
--- NOTE | 2018-05-14 13:10 | NUR ---
NURSE NOTES: Dr. Wilkerson made aware of patient condition, no verbal orders given at this time.
--- NOTE | 2018-05-14 13:36 | Podiatric Progress Note ---
Assessment/Plan Patient Lilienzo Alcantar is a 67 year old female who was admitted on May 12, 2018 at 14:05 with Problems: (1) Cellulitis of both lower extremities (2) Venous stasis ulcers of both lower extremities (3) DM (diabetes mellitus) (4) CKD (chronic kidney disease) (5) Painful legs and moving toes (6) Morbid (severe) obesity due to excess calories Assessment/Plan continue local wound care continue IV abx awaiting vascular intervention. Subjective Allergies: Coded Allergies: ASPIRIN (Verified Allergy, Intermediate, Hives, 01/06/13) PENICILLINS (Verified Allergy, Intermediate, Hives, 01/06/13) Subjective Patient is being seen for f/u R ischemic foot and b/l. feet ulcers. patient is being stabilized by PCP for multiple complications. vascular intervention is pending patient stabilization. Objective Exam Last 24 Hour Vital Signs Date Time Temp Pulse Resp B/P (MAP) Pulse Ox O2 Delivery O2 Flow Rate FiO2 05/14/18 13:00 94 17 153/90 (111) 100 05/14/18 12:30 90 12 167/84 (111) 100 05/14/18 12:16 155/99 05/14/18 12:00 98.3 95 18 155/99 (117) 99 05/14/18 12:00 91 05/14/18 11:30 97 22 62/45 (51) 99 05/14/18 11:00 58 15 138/100 (113) 95 05/14/18 10:30 94 19 100 05/14/18 10:00 58 15 91/46 (61) 95 05/14/18 10:00 100 05/14/18 09:00 57 13 91/41 (58) 95 05/14/18 08:00 97.8 56 14 91/76 (81) 97 05/14/18 08:00 Bi-pap 05/14/18 08:00 56 05/14/18 08:00 70 05/14/18 07:08 55 15 98 Facial 60 05/14/18 07:00 56 14 91/41 (58) 97 05/14/18 06:00 59 14 87/54 (65) 99 05/14/18 06:00 59 12 91/41 (58) 96 05/14/18 05:12 61 18 100 Facial 70 05/14/18 05:00 98.0 62 15 88/57 (67) 99 05/14/18 05:00 98.0 60 14 92/62 (72) 100 05/14/18 04:00 62 15 88/57 (67) 99 05/14/18 04:00 70 05/14/18 04:00 Bi-pap 05/14/18 04:00 61 05/14/18 03:00 60 14 95/62 (73) 99 05/14/18 02:58 63 17 99 Facial 70 05/14/18 02:00 60 15 93/71 (78) 98 05/14/18 01:00 62 14 90/47 (61) 97 05/14/18 00:45 60 17 95 Facial 70 05/14/18 00:30 60 12 91/69 (76) 97 05/14/18 00:00 Bi-pap 05/14/18 00:00 62 05/14/18 00:00 70 05/14/18 00:00 97.6 60 15 83/21 (41) 95 05/13/18 23:04 63 23 97 Facial 40 05/13/18 23:00 62 14 96/56 (69) 98 05/13/18 22:00 60 14 90/62 (71) 98 05/13/18 21:21 60 21 99 Facial 40 05/13/18 21:00 60 14 94/60 (71) 98 05/13/18 20:00 56 05/13/18 20:00 40 05/13/18 20:00 94.4 56 18 90/63 (72) 99 05/13/18 20:00 Bi-pap 05/13/18 19:34 58 17 98 Facial 40 05/13/18 16:35 60 17 97 Facial 40 05/13/18 16:00 97.0 65 18 105/71 (82) 97 05/13/18 14:30 60 16 94 Facial 40 Laboratory Tests Test 05/13/18 13:32 05/13/18 16:30 05/13/18 18:40 05/13/18 20:18 Arterial Blood pH 7.257 (7.350-7.450) 7.203 (7.350-7.450) 7.181 (7.350-7.450) 7.217 (7.350-7.450) Arterial Blood Partial Pressure CO2 60.6 mmHg (35.0-45.0) *H 66.4 mmHg (35.0-45.0) *H 74.5 mmHg (35.0-45.0) *H 72.4 mmHg (35.0-45.0) *H Arterial Blood Partial Pressure O2 56.6 mmHg (75.0-100.0) L 88.2 mmHg (75.0-100.0) 80.1 mmHg (75.0-100.0) 103.6 mmHg (75.0-100.0) H Arterial Blood HCO3 26.4 mmol/L (22.0-26.0) H 25.5 mmol/L (22.0-26.0) 27.2 mmol/L (22.0-26.0) H 28.8 mmol/L (22.0-26.0) H Arterial Blood Oxygen Saturation 85.2 % (95-100) *L 94.7 % (95-100) L 93.0 % (95-100) L 96.9 % (95-100) Arterial Blood Base Excess -1.8 (-2-2) -3.6 (-2-2) L -2.7 (-2-2) L -0.7 (-2- 2) Aditya Test Positive Positive Positive Positive Test 05/14/18 00:33 05/14/18 06:42 05/14/18 08:05 05/14/18 11:45 Arterial Blood pH 7.206 (7.350-7.450) 7.136 (7.350-7.450) 7.184 (7.350-7.450) Arterial Blood Partial Pressure CO2 71.0 mmHg (35.0-45.0) *H 81.2 mmHg (35.0-45.0) *H 72.7 mmHg (35.0-45.0) *H Arterial Blood Partial Pressure O2 76.9 mmHg (75.0-100.0) 108.2 mmHg (75.0-100.0) H 86.8 mmHg (75.0-100.0) Arterial Blood HCO3 27.5 mmol/L (22.0-26.0) H 26.8 mmol/L (22.0-26.0) H 26.8 mmol/L (22.0-26.0) H Arterial Blood Oxygen Saturation 92.2 % (95-100) L 96.6 % (95-100) 94.9 % (95-100) L Arterial Blood Base Excess -1.9 (-2-2) -3.9 (-2-2) L -3.2 (-2-2) L Aditya Test Positive Positive Positive White Blood Count 9.1 K/UL (4.8-10.8) Red Blood Count 4.61 M/UL (4.20-5.40) Hemoglobin 11.5 G/DL (12.0-16.0) L Hematocrit 39.5 % (37.0-47.0) Mean Corpuscular Volume 86 FL (80-99) Mean Corpuscular Hemoglobin 24.9 PG (27.0-31.0) L Mean Corpuscular Hemoglobin Concent 29.0 G/DL (32.0-36.0) L Red Cell Distribution Width 19.3 % (11.6-14.8) H Platelet Count 204 K/UL (150-450) Mean Platelet Volume 8.6 FL (6.5-10.1) Neutrophils (%) (Auto) 78.3 % (45.0-75.0) H Lymphocytes (%) (Auto) 8.8 % (20.0-45.0) L Monocytes (%) (Auto) 11.3 % (1.0-10.0) H Eosinophils (%) (Auto) 0.2 % (0.0-3.0) Basophils (%) (Auto) 1.4 % (0.0-2.0) Reticulocyte Count 3.1 % (0.0-2.0) H Prothrombin Time 16.7 SEC (9.30-11.50) H Prothromb Time International Ratio 1.6 (0.9-1.1) H Activated Partial Thromboplast Time 37 SEC (23-33) H Sodium Level 141 MMOL/L (136-145) Potassium Level 4.2 MMOL/L (3.5-5.1) Chloride Level 106 MMOL/L (98-107) Carbon Dioxide Level 28 MMOL/L (21-32) Anion Gap 7 mmol/L (5-15) Blood Urea Nitrogen 51 mg/dL (7-18) H Creatinine 4.3 MG/DL (0.55-1.30) H Estimat Glomerular Filtration Rate 12.5 mL/min (>60) Glucose Level 110 MG/DL (74-106) H Calcium Level 8.5 MG/DL (8.5-10.1) Phosphorus Level 8.1 MG/DL (2.5-4.9) H Magnesium Level 2.2 MG/DL (1.8-2.4) Iron Level 32 ug/dL (50-175) L Total Iron Binding Capacity 325 ug/dL (250-450) Percent Iron Saturation 10 % (15-50) L Unsaturated Iron Binding 293 ug/dL (112-346) Ferritin 28 NG/ML (8-388) Total Bilirubin 3.0 MG/DL (0.2-1.0) H Direct Bilirubin 2.3 MG/DL (0.0-0.3) H Aspartate Amino Transf (AST/SGOT) 276 U/L (15-37) H Alanine Aminotransferase (ALT/SGPT) 105 U/L (12-78) H Alkaline Phosphatase 237 U/L (46-116) H Ammonia 162 umol/L (11-32) H Pro-B-Type Natriuretic Peptide 2233 pg/mL (0-125) H Total Protein 6.8 G/DL (6.4-8.2) Albumin 2.7 G/DL (3.4-5.0) L Globulin 4.1 g/dL Albumin/Globulin Ratio 0.7 (1.0-2.7) L Carcinoembryonic Antigen Pending Vitamin B12 Level > 2000 PG/ML (193-986) H Folate 11.1 NG/ML (8.6-58.9) Thyroid Stimulating Hormone (TSH) 1.929 uiU/mL (0.358-3.740) Free Thyroxine 1.32 NG/DL (0.76-1.46) Cortisol AM Sample Pending Hepatitis A IgM Antibody Pending Hepatitis B Surface Antigen Pending Hepatitis B Core IgM Antibody Pending Hepatitis C Antibody Pending Test 05/14/18 13:10 Sodium Level Pending Potassium Level Pending Chloride Level Pending Carbon Dioxide Level Pending Blood Urea Nitrogen Pending Creatinine Pending Estimat Glomerular Filtration Rate Pending Glucose Level Pending Lactic Acid Level Pending Calcium Level Pending Microbiology Date/Time Source Procedure Growth Status 05/12/18 14:30 Blood Blood Culture - Preliminary NO GROWTH AFTER 24 HOURS Resulted 05/12/18 17:00 Nasal Nares MRSA Culture - Final NO METHICILLIN RESISTANT STAPH AUREUS... Complete 05/13/18 08:45 Urine,Clean Catch Urine Culture - Preliminary NO GROWTH AFTER 24 HOURS Resulted 05/12/18 18:20 Leg Right Gram Stain - Final Resulted 05/12/18 18:20 Leg Right Wound Culture - Preliminary Resulted Dermatological Dermatological Narrative no changes noted to b/l feet. no increase in cellulitis no drainage or discharge noted. foot temperature and ischemic status has stayed the same. Lawrence Barrera DPM May 14, 2018 13:36
[2018-05-14 13:39] LABS: ANION GAP 13 mmol/L (5-15); BLOOD UREA NITROGEN 52 mg/dL (7-18); CALCIUM 8.8 MG/DL (8.5-10.1); CARBON DIOXIDE 25 MMOL/L (21-32); CHLORIDE 104 MMOL/L (98-107); CREATININE 4.3 MG/DL (0.55-1.30); POTASSIUM 3.9 MMOL/L (3.5-5.1); SODIUM 141 MMOL/L (136-145)
[2018-05-14] MEDS: Lactulose 10gm/15ml UDC NG SCH ×2 (13:48→21:32)
[2018-05-14] MEDS: Enoxaparin 100mg Inj SUBQ SCH (14:00)
--- NOTE | 2018-05-14 14:01 | NUR ---
REHAB MED PT NOTE PATIENT NOT APPROPRIATE FOR PT AT THIS TIME, DC PT ORDER. PLEASE RECONSULT WHEN PATIENT MEDICALLY APPROPRIATE FOR OOB ACTIVITY.
--- NOTE | 2018-05-14 14:21 | NUR ---
NURSE NOTES: Radiology team at the bedside for picc line placement, will continue to monitor. patient.
--- NOTE | 2018-05-14 14:45 | Emergency Room Report ---
History of Present Illness General Chief Complaint: Edema Source: Medical Record, PMD Present Illness Allergies: Coded Allergies: ASPIRIN (Verified Allergy, Intermediate, Hives, 01/06/13) PENICILLINS (Verified Allergy, Intermediate, Hives, 01/06/13) Patient History Now: No Nursing Documentation-PMH Past Medical History: No History, Except For Hx Cardiac Problems: Yes - AFIB Hx Hypertension: Yes Hx Pacemaker: No Hx Asthma: No Hx COPD: Yes Hx Diabetes: Yes Hx Cancer: No Hx Gastrointestinal Problems: Yes Hx Dialysis: No Hx Neurological Problems: Yes Hx Cerebrovascular Accident: Yes - 2006 Hx Seizures: No Hx Peripheral Neuropathy: Yes Physical Exam Vital Signs Date Time Temp Pulse Resp B/P (MAP) Pulse Ox O2 Delivery O2 Flow Rate FiO2 05/12/18 13:03 98.4 66 18 118/75 97 Room Air 05/12/18 18:41 2.0 05/13/18 08:25 28 Procedures Intubation Intubation : Consent: Emergent Time of Intubation: 10:30 Intubation Method: orotracheal Tube Size (cm): 7.5 Medications: Etomidate, Succinylcholine Breath Sounds after Intubation: equal Intubation Complications: no complications Post Intubation Xray: Yes Progress/Xray Impression: satisfactory tube placement Attempts: One Patient Tolerated: Well Complications: None Medical Decision Making Diagnostic Impression: Primary Impression: Venous stasis ulcers of both lower extremities Additional Impressions: ARF (acute renal failure) Cellulitis of both lower extremities Last Vital Signs Date Time Temp Pulse Resp B/P (MAP) Pulse Ox O2 Delivery O2 Flow Rate FiO2 05/14/18 14:30 85 18 138/83 (101) 99 05/14/18 12:00 Bi-pap 05/14/18 12:00 98.3 05/14/18 12:00 100 05/13/18 09:00 2.0 Disposition: ADMITTED INPATIENT Condition: Serious Referrals: NON PHYSICIAN (PCP) JASPAL ESTRADA M.D May 14, 2018 14:45
--- NOTE | 2018-05-14 15:00 | NUR ---
NURSE NOTES: Central line placed on the left upper arm with a dual lumen catheter, patient remains stable through entire procedure, placed on first attempt by Dr. Vale, chest x-ray taken.
--- NOTE | 2018-05-14 15:25 | Diagnostic Imaging Report ---
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 The left upper extremity was prepped with alcohol. All elements of maximal sterile barrier technique were followed including usage of a cap, mask, sterile gown, sterile gloves, hand hygiene and a large sterile sheet. Sonographic evaluation of the upper extremity was performed demonstrating a patent and compressible basilic vein. Access was obtained under real-time ultrasound guidance (with utilization of sterile gel and sterile probe cover) and digital image was saved and archived. An .018 wire was introduced. Needle exchanged for a 5 Faroese peel-away sheath. Measurements were obtained. A 5 Faroese dual-lumen Power PICC line catheter was cut to 40 cm and introduced over the wire. Peel-away sheath and wire were removed.Catheter was secured to the skin using 2-0 Prolene suture. Both ports aspirate and flush easily. Post procedure chest x-ray demonstrates good position of the PICC line catheter within the SVC. Impression: Successful placement of an upper extremity PICC line catheter
--- NOTE | 2018-05-14 15:44 | Infectious Diseases Prog Note ---
Assessment/Plan Problems: (1) Bilateral lower leg cellulitis Assessment & Plan: with blisters , continue clindamycin and aztreonam empirically with local wounds care . patient refused MRI and CT of the legs to rule out deep abscess or osteomyelitis. await bone scan of both legs . D/W infant caregiver (2) Nonhealing ulcer of left lower extremity Assessment & Plan: await wound culture , and continue wide spectrum antibiotics , continue local wound care and dressings change as per wound care service (3) Painful legs and moving toes Assessment & Plan: suspect due to the above , will order venous doppler to rule out DVT (4) CKD (chronic kidney disease) Assessment & Plan: avoid nephrotoxics , renally dosed antibiotics as per pharmacy (5) DM (diabetes mellitus) Assessment & Plan: recommend tight glycemic control to keep blood glucose between 100-140 (6) Acute encephalopathy Assessment & Plan: suspect metabolic with high ammonia level, continue lactulose , consult neurology if no improvement with brain image (7) Acute hypoxemic respiratory failure Assessment & Plan: due to the above , intubated on mechanical ventilation, pulmonary is following Subjective ROS Limited/Unobtainable: Yes Allergies: Coded Allergies: ASPIRIN (Verified Allergy, Intermediate, Hives, 01/06/13) PENICILLINS (Verified Allergy, Intermediate, Hives, 01/06/13) Subjective she was intubated on mechanical ventilation , was transferred to ICU , unresponsive to verbal commands, afebrile, NAD . has low UOP Objective Vital Signs Last 24 Hour Vital Signs Date Time Temp Pulse Resp B/P (MAP) Pulse Ox O2 Delivery O2 Flow Rate FiO2 05/14/18 15:30 74 18 136/72 (93) 100 05/14/18 15:00 74 18 103/52 (69) 98 05/14/18 14:30 85 18 138/83 (101) 99 05/14/18 14:00 91 18 138/83 (101) 100 05/14/18 13:30 93 17 171/99 (123) 100 05/14/18 13:00 94 17 153/90 (111) 100 05/14/18 12:30 90 12 167/84 (111) 100 05/14/18 12:16 155/99 05/14/18 12:00 Bi-pap 05/14/18 12:00 98.3 95 18 155/99 (117) 99 05/14/18 12:00 91 05/14/18 12:00 100 05/14/18 11:30 97 22 62/45 (51) 99 05/14/18 11:00 58 15 138/100 (113) 95 05/14/18 10:30 94 19 100 05/14/18 10:00 58 15 91/46 (61) 95 05/14/18 10:00 100 05/14/18 09:00 57 13 91/41 (58) 95 05/14/18 08:00 97.8 56 14 91/76 (81) 97 05/14/18 08:00 Bi-pap 05/14/18 08:00 56 05/14/18 08:00 70 05/14/18 07:08 55 15 98 Facial 60 05/14/18 07:00 56 14 91/41 (58) 97 05/14/18 06:00 59 14 87/54 (65) 99 05/14/18 06:00 59 12 91/41 (58) 96 05/14/18 05:12 61 18 100 Facial 70 05/14/18 05:00 98.0 62 15 88/57 (67) 99 05/14/18 05:00 98.0 60 14 92/62 (72) 100 05/14/18 04:00 62 15 88/57 (67) 99 05/14/18 04:00 70 05/14/18 04:00 Bi-pap 05/14/18 04:00 61 05/14/18 03:00 60 14 95/62 (73) 99 05/14/18 02:58 63 17 99 Facial 70 05/14/18 02:00 60 15 93/71 (78) 98 05/14/18 01:00 62 14 90/47 (61) 97 05/14/18 00:45 60 17 95 Facial 70 05/14/18 00:30 60 12 91/69 (76) 97 05/14/18 00:00 Bi-pap 05/14/18 00:00 62 05/14/18 00:00 70 05/14/18 00:00 97.6 60 15 83/21 (41) 95 05/13/18 23:04 63 23 97 Facial 40 05/13/18 23:00 62 14 96/56 (69) 98 05/13/18 22:00 60 14 90/62 (71) 98 05/13/18 21:21 60 21 99 Facial 40 05/13/18 21:00 60 14 94/60 (71) 98 05/13/18 20:00 56 05/13/18 20:00 40 05/13/18 20:00 94.4 56 18 90/63 (72) 99 05/13/18 20:00 Bi-pap 05/13/18 19:34 58 17 98 Facial 40 05/13/18 16:35 60 17 97 Facial 40 05/13/18 16:00 97.0 65 18 105/71 (82) 97 Height (Feet): 5 Height (Inches): 3.00 Weight (Pounds): 200 General Appearance: WD/WN, no acute distress HEENT: atraumatic, anicteric, mucous membranes moist, supple, other - periorbital edema , ET tube in place Respiratory/Chest: no respiratory distress, no accessory muscle use, decreased breath sounds, crackles/rales Cardiovascular: normal peripheral pulses, normal rate, regular rhythm, no gallop/murmur, no JVD Abdomen: normal bowel sounds, soft, non tender, no organomegaly, non distended , no mass, no scars Extremities: no cyanosis, no clubbing Skin: no rash, no lesions, no ulcers Neurologic/Psychiatric: unresponsiveness Lymphatic: no neck adenopathy, no groin adenopathy Musculoskeletal: normal muscle bulk, no effusion Microbiology Date/Time Source Procedure Growth Status 05/12/18 14:30 Blood Blood Culture - Preliminary NO GROWTH AFTER 24 HOURS Resulted 05/12/18 14:15 Blood Blood Culture - Preliminary NO GROWTH AFTER 24 HOURS Resulted 05/12/18 17:00 Nasal Nares MRSA Culture - Final NO METHICILLIN RESISTANT STAPH AUREUS... Complete 05/13/18 08:45 Urine,Clean Catch Urine Culture - Preliminary NO GROWTH AFTER 24 HOURS Resulted 05/12/18 18:20 Leg Right Gram Stain - Final Resulted 05/12/18 18:20 Leg Right Wound Culture - Preliminary Resulted 05/12/18 18:20 Leg Left Gram Stain - Final Resulted 05/12/18 18:20 Leg Left Wound Culture Pending Resulted 05/12/18 17:00 Rectum VRE Culture - Final NO VANCOMYCIN RESISTANT ENTEROCOCCUS ... Complete 05/12/18 17:00 Rectum - Final NO CARBAPENEM-RESISTANT ENTEROBACTERI... Complete Laboratory Tests Test 05/13/18 16:30 05/13/18 18:40 05/13/18 20:18 05/14/18 00:33 Arterial Blood pH 7.203 (7.350-7.450) 7.181 (7.350-7.450) 7.217 (7.350-7.450) 7.206 (7.350-7.450) Arterial Blood Partial Pressure CO2 66.4 mmHg (35.0-45.0) *H 74.5 mmHg (35.0-45.0) *H 72.4 mmHg (35.0-45.0) *H 71.0 mmHg (35.0-45.0) *H Arterial Blood Partial Pressure O2 88.2 mmHg (75.0-100.0) 80.1 mmHg (75.0-100.0) 103.6 mmHg (75.0-100.0) H 76.9 mmHg (75.0-100.0) Arterial Blood HCO3 25.5 mmol/L (22.0-26.0) 27.2 mmol/L (22.0-26.0) H 28.8 mmol/L (22.0-26.0) H 27.5 mmol/L (22.0-26.0) H Arterial Blood Oxygen Saturation 94.7 % (95-100) L 93.0 % (95-100) L 96.9 % (95-100) 92.2 % (95-100) L Arterial Blood Base Excess -3.6 (-2-2) L -2.7 (-2-2) L -0.7 (-2-2) -1.9 (-2- 2) Aditya Test Positive Positive Positive Positive Test 05/14/18 06:42 05/14/18 08:05 05/14/18 11:45 05/14/18 13:10 White Blood Count 9.1 K/UL (4.8-10.8) Red Blood Count 4.61 M/UL (4.20-5.40) Hemoglobin 11.5 G/DL (12.0-16.0) L Hematocrit 39.5 % (37.0-47.0) Mean Corpuscular Volume 86 FL (80-99) Mean Corpuscular Hemoglobin 24.9 PG (27.0-31.0) L Mean Corpuscular Hemoglobin Concent 29.0 G/DL (32.0-36.0) L Red Cell Distribution Width 19.3 % (11.6-14.8) H Platelet Count 204 K/UL (150-450) Mean Platelet Volume 8.6 FL (6.5-10.1) Neutrophils (%) (Auto) 78.3 % (45.0-75.0) H Lymphocytes (%) (Auto) 8.8 % (20.0-45.0) L Monocytes (%) (Auto) 11.3 % (1.0-10.0) H Eosinophils (%) (Auto) 0.2 % (0.0-3.0) Basophils (%) (Auto) 1.4 % (0.0-2.0) Reticulocyte Count 3.1 % (0.0-2.0) H Prothrombin Time 16.7 SEC (9.30-11.50) H Prothromb Time International Ratio 1.6 (0.9-1.1) H Activated Partial Thromboplast Time 37 SEC (23-33) H Sodium Level 141 MMOL/L (136-145) 141 MMOL/L (136-145) Potassium Level 4.2 MMOL/L (3.5-5.1) 3.9 MMOL/L (3.5-5.1) Chloride Level 106 MMOL/L (98-107) 104 MMOL/L (98-107) Carbon Dioxide Level 28 MMOL/L (21-32) 25 MMOL/L (21-32) Anion Gap 7 mmol/L (5-15) 13 mmol/L (5-15) Blood Urea Nitrogen 51 mg/dL (7-18) H 52 mg/dL (7-18) H Creatinine 4.3 MG/DL (0.55-1.30) H 4.3 MG/DL (0.55-1.30) H Estimat Glomerular Filtration Rate 12.5 mL/min (>60) 12.5 mL/min (>60) Glucose Level 110 MG/DL (74-106) H 125 MG/DL (74-106) H Calcium Level 8.5 MG/DL (8.5-10.1) 8.8 MG/DL (8.5-10.1) Phosphorus Level 8.1 MG/DL (2.5-4.9) H Magnesium Level 2.2 MG/DL (1.8-2.4) Iron Level 32 ug/dL (50-175) L Total Iron Binding Capacity 325 ug/dL (250-450) Percent Iron Saturation 10 % (15-50) L Unsaturated Iron Binding 293 ug/dL (112-346) Ferritin 28 NG/ML (8-388) Total Bilirubin 3.0 MG/DL (0.2-1.0) H Direct Bilirubin 2.3 MG/DL (0.0-0.3) H Aspartate Amino Transf (AST/SGOT) 276 U/L (15-37) H Alanine Aminotransferase (ALT/SGPT) 105 U/L (12-78) H Alkaline Phosphatase 237 U/L (46-116) H Ammonia 162 umol/L (11-32) H Pro-B-Type Natriuretic Peptide 2233 pg/mL (0-125) H Total Protein 6.8 G/DL (6.4-8.2) Albumin 2.7 G/DL (3.4-5.0) L Globulin 4.1 g/dL Albumin/Globulin Ratio 0.7 (1.0-2.7) L Carcinoembryonic Antigen Pending Vitamin B12 Level > 2000 PG/ML (193-986) H Folate 11.1 NG/ML (8.6-58.9) Thyroid Stimulating Hormone (TSH) 1.929 uiU/mL (0.358-3.740) Free Thyroxine 1.32 NG/DL (0.76-1.46) Cortisol AM Sample Pending Hepatitis A IgM Antibody Pending Hepatitis B Surface Antigen Pending Hepatitis B Core IgM Antibody Pending Hepatitis C Antibody Pending Arterial Blood pH 7.136 (7.350-7.450) 7.184 (7.350-7.450) Arterial Blood Partial Pressure CO2 81.2 mmHg (35.0-45.0) *H 72.7 mmHg (35.0-45.0) *H Arterial Blood Partial Pressure O2 108.2 mmHg (75.0-100.0) H 86.8 mmHg (75.0-100.0) Arterial Blood HCO3 26.8 mmol/L (22.0-26.0) H 26.8 mmol/L (22.0-26.0) H Arterial Blood Oxygen Saturation 96.6 % (95-100) 94.9 % (95-100) L Arterial Blood Base Excess -3.9 (-2-2) L -3.2 (-2-2) L Aditya Test Positive Positive Lactic Acid Level 1.30 mmol/L (0.4-2.0) Current Medications Medications (Trade) Dose Ordered Sig/Toya Route PRN Reason Start Time Stop Time Status Last Admin Dose Admin Aztreonam 1 gm/ Dextrose 55 ml @ 110 mls/hr Q8HR@0000,0800,1600 IVPB 05/14/18 00:00 05/20/18 00:00 05/14/18 12:15 Chlorhexidine Gluconate (Romy-Hex 2%) 1 applic DAILY@2000 TOPIC 05/14/18 20:00 06/13/18 19:59 Clindamycin HCl/ Dextrose 50 ml @ 100 mls/hr Q8HR IV 05/13/18 22:00 05/19/18 21:59 05/14/18 13:48 Dextrose (Dextrose 50%) 25 ml Q30M PRN IV Hypoglycemia 05/13/18 21:00 06/11/18 16:59 Dextrose (Dextrose 50%) 50 ml Q30M PRN IV Hypoglycemia 05/13/18 21:00 06/11/18 16:59 Dextrose/Sodium Chloride 1,000 ml @ 100 mls/hr Q10H IV 05/14/18 13:06 06/12/18 13:05 05/14/18 13:49 Dopamine HCl/ Dextrose 250 ml @ 0 mls/hr Q24H IV 05/14/18 12:00 06/13/18 11:59 05/14/18 12:16 Enoxaparin Sodium (Lovenox) 100 mg Q24H SUBQ 05/14/18 14:00 06/12/18 13:59 Heparin Sodium/ Sodium Chloride (Heparin 2000 units/Ns 1000ml premix) 2,000 unit ONCE PRN INJ PICC PLACEMENT 05/14/18 01:30 05/15/18 23:59 Insulin Aspart (NovoLOG) BEFORE MEALS AND HS SUBQ 05/13/18 21:00 06/11/18 20:59 Lactulose (Cephulac) 30 gm Q8HR NG 05/14/18 14:00 06/12/18 17:59 05/14/18 13:48 Lidocaine HCl (Xylocaine 1% 30ml) 30 ml ONCE PRN INJ FOR PICC PLACEMENT 05/14/18 01:30 05/15/18 23:59 Lorazepam (Ativan 2mg/ml 1ml) 2 mg Q4H PRN IV For Anxiety 05/14/18 12:00 05/21/18 11:59 05/14/18 12:15 Pantoprazole (Protonix) 40 mg EVERY 12 HOURS IVP 05/14/18 21:00 06/13/18 20:59 Rifaximin (Xifaxan) 550 mg EVERY 12 HOURS ORAL 05/13/18 21:00 05/20/18 20:59 05/13/18 23:02 Sodium Chloride 500 ml @ 999 mls/hr Q31M PRN IV For hypotension 05/14/18 01:30 06/13/18 01:29 05/14/18 06:10 Juice Wilkerson M.D. May 14, 2018 15:44
--- NOTE | 2018-05-14 16:45 | Consultation ---
DATE OF CONSULTATION: 05/13/2018 VASCULAR SURGERY CONSULTATION CONSULTING PHYSICIAN: Nicko Victoria M.D. REFERRING PHYSICIAN: Lawrence Barrera DPM. REASON FOR CONSULTATION: Lower extremity pain and arterial insufficiency. HISTORY OF PRESENT COMPLAINT: This is a 67-year-old female, who presented with altered mental status and lower extremity pain. The patient has multiple medical history with worsening renal failure, arterial occlusive disease, venous insufficiency. Vascular surgery was now consulted for further evaluation. The patient is nonverbal. All the history was obtained from the medical records. PAST MEDICAL HISTORY: As above. Morbid obesity, renal failure, diabetes mellitus, hypertension, obesity, arterial occlusive disease. MEDICATIONS: See attached MAR. ALLERGIES: Aspirin and penicillin. SOCIAL HISTORY: Unobtainable. FAMILY HISTORY: Unobtainable. REVIEW OF SYSTEMS: Unobtainable due to altered mental status. PHYSICAL EXAMINATION: VITAL SIGNS: The patient is afebrile at 98.7, heart rate 78, blood pressure 100/60, respirations 16. PHYSICAL EXAMINATION: EXTREMITIES: She has palpable radial pulse. LUNGS: Rhonchi bilateral. ABDOMEN: Soft, morbidly obese. VASCULAR: She has palpable femoral pulses. Absent popliteal and pedal pulse bilaterally. She has extensive lower extremity stasis dermatitis and skin necrosis noted in the pretibial and ankle wounds in ankle area. There is no distal open ulceration. LABORATORY DATA: BUN of 47, creatinine 3.6. WBC 7.7, hemoglobin 12.8, and platelet count 223,000. IMPRESSION: 1. Bilateral leg severe arterial insufficiency with significant calcific multilevel arterial occlusive disease with leg ulceration. 2. Anasarca with renal failure. 3. Encephalopathy, altered mental status. 4. Hypertension, diabetes with morbid obesity. PLAN AND RECOMMENDATION: 1. Medical optimization in progress. 2. Renal evaluation. The patient may need to start on hemodialysis therapy if indicated per renal. 3. Obtain cardiac echocardiogram. 4. Offload the legs with decubitus and DVT precautions. 5. Noninvasive duplex imaging once more stable and if cleared by renal service, the patient can have selective left leg angiography to assess for percutaneous limb revascularization. The above was discussed at length with the patient's nurse at bedside. Nicko Victoria M.D. DR: Shanita JOB#: [id number] CC: Nicko Victoria M.D.; Fax#: [phone] CASE VALLE M.D. ; FAX#: [phone] Joan RODASPPebbles; FAX#: [phone] [facility]ITALBrian
--- NOTE | 2018-05-14 17:17 | General Progress Note ---
Assessment/Plan Assessment/Plan S, O: Intubated, PICC line in place, Sedated. limted exam PHYSICAL EXAMINATION: HEAD AND NECK: Atraumatic and normocephalic. CHEST: Diffuse bronchial breathing sounds. Overall decreased breathing sounds. ABDOMEN: Grossly morbidly obese. Limited evaluation. MUSCULOSKELETAL: Positive for ulcers and wounds, more diffusely edematous about 2+. NEUROLOGIC: The patient is sedated and intubated. limited exam Meds: Reviewed and reconciled. Including Dopamin gtt Renal Us : reviewed ASSESSMENT: 1.Vent Dependent Respiratory failure 2. CHF exacerbation . 3. Acute/Chronic Renal F 4. Abnormal Trop: NSTEMI vs Leakage 3. UTI/lower extremity infection Hypertension. 4. Diabetes type 2, controlled with A1c of 6.3. 5. Pain management. 6. GI and DVT prophylaxis. PLAN OF CARE: Grave prognosis Had a family meeting. The SonKyler is chosen by family member as the designated family member Subjective Allergies: Coded Allergies: ASPIRIN (Verified Allergy, Intermediate, Hives, 01/06/13) PENICILLINS (Verified Allergy, Intermediate, Hives, 01/06/13) Objective Last 24 Hour Vital Signs Date Time Temp Pulse Resp B/P (MAP) Pulse Ox O2 Delivery O2 Flow Rate FiO2 05/14/18 17:00 84 16 150/65 (93) 100 05/14/18 16:42 78 18 100 05/14/18 16:30 79 18 137/91 (106) 100 05/14/18 16:00 99.2 77 18 158/78 (104) 100 05/14/18 16:00 100 05/14/18 16:00 75 05/14/18 16:00 Mechanical Ventilator 05/14/18 15:30 74 18 136/72 (93) 100 05/14/18 15:00 74 18 103/52 (69) 98 05/14/18 14:55 85 18 100 05/14/18 14:30 85 18 138/83 (101) 99 05/14/18 14:00 91 18 138/83 (101) 100 05/14/18 13:30 93 17 171/99 (123) 100 05/14/18 13:00 94 17 153/90 (111) 100 05/14/18 12:50 90 18 100 05/14/18 12:45 92 17 152/108 (123) 100 05/14/18 12:30 90 12 167/84 (111) 100 05/14/18 12:16 155/99 05/14/18 12:00 Mechanical Ventilator 05/14/18 12:00 98.3 95 18 155/99 (117) 99 05/14/18 12:00 91 05/14/18 12:00 100 05/14/18 11:45 98 12 153/97 (115) 99 05/14/18 11:30 97 22 62/45 (51) 99 05/14/18 11:15 95 21 129/102 (111) 99 05/14/18 11:00 58 15 138/100 (113) 95 05/14/18 10:30 94 19 100 05/14/18 10:00 58 15 91/46 (61) 95 05/14/18 10:00 100 05/14/18 09:00 57 13 91/41 (58) 95 05/14/18 08:00 97.8 56 14 91/76 (81) 97 05/14/18 08:00 Bi-pap 05/14/18 08:00 56 05/14/18 08:00 70 05/14/18 07:08 55 15 98 Facial 60 05/14/18 07:00 56 14 91/41 (58) 97 05/14/18 06:00 59 14 87/54 (65) 99 05/14/18 06:00 59 12 91/41 (58) 96 05/14/18 05:12 61 18 100 Facial 70 05/14/18 05:00 98.0 62 15 88/57 (67) 99 05/14/18 05:00 98.0 60 14 92/62 (72) 100 05/14/18 04:00 62 15 88/57 (67) 99 05/14/18 04:00 70 05/14/18 04:00 Bi-pap 05/14/18 04:00 61 05/14/18 03:00 60 14 95/62 (73) 99 05/14/18 02:58 63 17 99 Facial 70 05/14/18 02:00 60 15 93/71 (78) 98 05/14/18 01:00 62 14 90/47 (61) 97 05/14/18 00:45 60 17 95 Facial 70 05/14/18 00:30 60 12 91/69 (76) 97 05/14/18 00:00 Bi-pap 05/14/18 00:00 62 05/14/18 00:00 70 05/14/18 00:00 97.6 60 15 83/21 (41) 95 05/13/18 23:04 63 23 97 Facial 40 05/13/18 23:00 62 14 96/56 (69) 98 05/13/18 22:00 60 14 90/62 (71) 98 05/13/18 21:21 60 21 99 Facial 40 05/13/18 21:00 60 14 94/60 (71) 98 05/13/18 20:00 56 05/13/18 20:00 40 05/13/18 20:00 94.4 56 18 90/63 (72) 99 05/13/18 20:00 Bi-pap 05/13/18 19:34 58 17 98 Facial 40 Intake and Output 05/13/18 05/14/18 18:59 06:59 Intake Total 1053 ml 1675 ml Output Total 50 ml Balance 1053 ml 1625 ml Intake Oral 218 ml 240 ml IV Total 835 ml 1435 ml Output Urine Total 50 ml Laboratory Tests 05/13/18 18:40: Arterial Blood pH 7.181*L, Arterial Blood Partial Pressure CO2 74.5*H, Arterial Blood Partial Pressure O2 80.1, Arterial Blood HCO3 27.2H, Arterial Blood Oxygen Saturation 93.0L, Arterial Blood Base Excess -2.7L, Aditya Test Positive 05/13/18 20:18: Arterial Blood pH 7.217*L, Arterial Blood Partial Pressure CO2 72.4*H, Arterial Blood Partial Pressure O2 103.6H, Arterial Blood HCO3 28.8H, Arterial Blood Oxygen Saturation 96.9, Arterial Blood Base Excess -0.7, Aditya Test Positive 05/14/18 00:33: Arterial Blood pH 7.206*L, Arterial Blood Partial Pressure CO2 71.0*H, Arterial Blood Partial Pressure O2 76.9, Arterial Blood HCO3 27.5H, Arterial Blood Oxygen Saturation 92.2L, Arterial Blood Base Excess -1.9, Aditya Test Positive 05/14/18 06:42: White Blood Count 9.1, Red Blood Count 4.61, Hemoglobin 11.5L, Hematocrit 39.5, Mean Corpuscular Volume 86, Mean Corpuscular Hemoglobin 24.9L, Mean Corpuscular Hemoglobin Concent 29.0L, Red Cell Distribution Width 19.3H, Platelet Count 204 , Mean Platelet Volume 8.6, Neutrophils (%) (Auto) 78.3H, Lymphocytes (%) (Auto ) 8.8L, Monocytes (%) (Auto) 11.3H, Eosinophils (%) (Auto) 0.2, Basophils (%) ( Auto) 1.4, Reticulocyte Count 3.1H, Prothrombin Time 16.7H, Prothromb Time International Ratio 1.6H, Activated Partial Thromboplast Time 37H, Sodium Level 141, Potassium Level 4.2, Chloride Level 106, Carbon Dioxide Level 28, Anion Gap 7, Blood Urea Nitrogen 51H, Creatinine 4.3H, Estimat Glomerular Filtration Rate 12.5, Glucose Level 110H, Calcium Level 8.5, Phosphorus Level 8.1H, Magnesium Level 2.2, Iron Level 32L, Total Iron Binding Capacity 325, Percent Iron Saturation 10L, Unsaturated Iron Binding 293, Ferritin 28, Total Bilirubin 3.0H, Direct Bilirubin 2.3H, Aspartate Amino Transf (AST/SGOT) 276H, Alanine Aminotransferase (ALT/SGPT) 105H, Alkaline Phosphatase 237H, Ammonia 162H, Pro-B -Type Natriuretic Peptide 2233H, Total Protein 6.8, Albumin 2.7L, Globulin 4.1, Albumin/Globulin Ratio 0.7L, Carcinoembryonic Antigen [Pending], Vitamin B12 Level > 2000H, Folate 11.1, Thyroid Stimulating Hormone (TSH) 1.929, Free Thyroxine 1.32, Cortisol AM Sample 14.9, Hepatitis A IgM Antibody [Pending], Hepatitis B Surface Antigen [Pending], Hepatitis B Core IgM Antibody [Pending], Hepatitis C Antibody [Pending] 05/14/18 08:05: Arterial Blood pH 7.136*L, Arterial Blood Partial Pressure CO2 81.2*H, Arterial Blood Partial Pressure O2 108.2H, Arterial Blood HCO3 26.8H, Arterial Blood Oxygen Saturation 96.6, Arterial Blood Base Excess -3.9L, Aditya Test Positive 05/14/18 11:45: Arterial Blood pH 7.184*L, Arterial Blood Partial Pressure CO2 72.7*H, Arterial Blood Partial Pressure O2 86.8, Arterial Blood HCO3 26.8H, Arterial Blood Oxygen Saturation 94.9L, Arterial Blood Base Excess -3.2L, Aditya Test Positive 05/14/18 13:10: Sodium Level 141, Potassium Level 3.9, Chloride Level 104, Carbon Dioxide Level 25, Anion Gap 13, Blood Urea Nitrogen 52H, Creatinine 4.3H, Estimat Glomerular Filtration Rate 12.5, Glucose Level 125H, Lactic Acid Level 1.30, Calcium Level 8.8 Height (Feet): 5 Height (Inches): 3.00 Weight (Pounds): 200 Margaret Mckinney MD May 14, 2018 17:17
--- NOTE | 2018-05-14 18:21 | NUR ---
NURSE NOTES: Patient remains on dopamine at 12mcg/kg/min with BP of 122/62 and HR of 73, Patient remains intubated at with setting of AC18, 650ml TV, FIo2 100% and peep of 5, patient remains on restraints for attempting to pull on ett0-tube and getting agitated, Will continue to monitor.
--- NOTE | 2018-05-14 18:58 | NUR ---
RESPIRATORY NOTE: Received pt on ACVC RR 18, VT 650, FIO2 100%, and peep +5. Intubated with 7.5 size ett at 26 at the lip secured by anchor fast. Small amount of loaiza, red specks secretions and will sxn prn. Alarms are on and audible. Ambu bag on the bedside. Vent is plugged into red outlet. Will continue to monitor pt's progress.
--- NOTE | 2018-05-14 19:24 | NUR ---
HAND-OFF: Report given to LUCIO Holliday.
--- NOTE | 2018-05-14 19:30 | NUR ---
NURSE NOTES: Received pt in no acute distress. Asleep, withdraws to pain. Orally intubated with 7.5 ETT placed over left lip at 26cm. Appears to be tolerating current vent parameters:AC [id number] fio2 1.00 peep 5. Chest sounds diminished at bases, secretions small amt., white, thick. OGT in place, currently clamped. Abdomen large, obese with hypoactive bowel sounds. NSR on the monitor, temp 99.3 axillary. Anaya cath in situ, draining dark yung urine. BLE with dressing, dry and intact. PICC on FLORENCIO intact, Dopamine gtt infuses at 2mcg/kg/min; BP 131/77. Bilat soft wrist restraints on. Will continue to monitor
[2018-05-14] MEDS: DOPAmine 400mg/250ml Premix IV SCH (19:31)
[2018-05-14] MEDS ORDERED: Aspirin Baby 81mg ORAL SCH (20:00)
--- NOTE | 2018-05-14 20:00 | NUR ---
NURSE NOTES: Called Dr Ritchie; re ABG results from 1145H. upset for having not been called earlier. Ordered stat ABG. Dr Erickson here, saw pt and aware of the elevated troponin; stat EKG done, saw tracing and wrote orders.
--- NOTE | 2018-05-14 20:50 | NUR ---
NURSE NOTES: Called Dr Ritchie for ABG results done at 2024. Ordered to decrease TV to 550, titrate fiO2 to sats>92 and do repeat ABG and CXR in AM. Family at bedside; plan of care explained. Will continue to monitor. ordered Bariatric bed with scales from [facility].
[2018-05-14] MEDS: Dyna-Hex 2% Top Sol 2oz TOPIC SCH (20:53)
[2018-05-14] MEDS: Atorvastatin 20mg tab ORAL SCH (20:53)
[2018-05-14] MEDS: Pantoprazole Inj IVP SCH (20:53)
[2018-05-14] MEDS ORDERED: fentaNYL Citrate 2,500 MCG in NS 200 ML IV SCH (21:30)
[2018-05-14] MEDS: FENTANYL CITRATE IV SCH (21:40)
[2018-05-14] MEDS: D5W IV SCH (21:40)
--- NOTE | 2018-05-14 21:40 | NUR ---
NURSE NOTES: Fentanyl gtt started via PICC at 50mcg/h to RASS-2. Will titrate PRN
--- NOTE | 2018-05-14 22:30 | Consultation ---
DATE OF CONSULTATION: 05/14/2018 CARDIOLOGY CONSULTATION CONSULTING PHYSICIAN: Justice Erickson M.D. REFERRING PHYSICIAN: Margaret Mckinney M.D. REASON FOR CONSULTATION: Management of shortness of breath from cardiac standpoint in a patient with respiratory distress. HISTORY OF PRESENT ILLNESS: The patient is a very unfortunate 67-year-old female, who presents to the hospital initially with progressive worsening of bilateral lower extremity edema as well as pain. She has chronic venous ulcers in the legs, managed by Dr. Carmen. At the time of arrival to the hospital, blood pressure was 118/75 mmHg and heart rate of 66. The patient was admitted to telemetry for evaluation and management of venous stasis as well as cellulitis of the lower extremity and associated acute kidney injury as the creatinine was found to be 3.1. At the time of arrival to the hospital, chest x-ray showed mild congestive heart failure. The patient became altered, increased work of respiration, had abnormal arterial blood gas with pH of 7.1, pCO2 of 74.5, and O2 saturation 93% with diagnosis of hypoxic hypercarbic respiratory failure. She was transferred to intensive care unit. She was placed on BiPAP mask. This report is prepared by using the medical records as the patient is on BiPAP mask and is not capable of providing any history. PAST MEDICAL HISTORY: 1. Hypertension. 2. Diabetes mellitus. 3. COPD. 4. Chronic venous ulceration. 5. History of renal failure. 6. History of gastroesophageal reflux disease. 7. History of neurological problems and peripheral neuropathy. 8. History of paroxysmal atrial fibrillation. ALLERGIES: To aspirin and penicillin. PAST SURGICAL HISTORY: Surgery for chronic venous ulceration. SOCIAL HISTORY: There is no history of tobacco, alcohol, illicit drug use. FAMILY HISTORY: No premature coronary artery disease in the first-degree relatives. MEDICATIONS: Acetaminophen #3, one tablet q.6 hours p.r.n. pain, amiodarone 200 mg p.o. daily, Apixaban 5 mg p.o. q.12 hours, atorvastatin 20 mg p.o. daily, carvedilol 3.125 mg twice daily, Catapres 0.1 mg three times daily as needed elevated blood pressure 160 mmHg, digoxin 0.125 mg p.o. daily, diphenhydramine 25 mg at bedtime, Lexapro 10 mg p.o. daily, Lasix 40 mg p.o. daily, gabapentin 300 mg p.o. twice daily, hydrocortisone 1% Absorbase , Chapman 10/325 one tablet q.4 h. p.r.n. pain, insulin Aspart, DuoNeb 3 mL HHN q.4 h. p.r.n. shortness of breath, losartan 25 mg p.o. daily, metformin 1000 mg p.o. twice daily, Prilosec 20 mg p.o. daily, Zofran 4 mg p.o. q.6 hours p.r.n. nausea and vomiting, MiraLAX 17 gram daily p.r.n. constipation, K-Dur 20 mEq p.o. twice daily, sildenafil 20 mg p.o. three times a times a day, Januvia 100 mg p.o. daily, Restoril 15 mg p.o. at bedtime p.r.n. insomnia. REVIEW OF SYSTEMS: A 12-system review cannot be done as the patient is in the intensive care unit and on BiPAP mask. PHYSICAL EXAMINATION: VITAL SIGNS: At the time of my evaluation on 05/13/2018, blood pressure was 105/71, her pulse of 65, temperature 97.3 degrees Fahrenheit, and O2 saturation was 97% on BiPAP mask with FiO2 of 40%, respiration rate of 18. GENERAL: The patient is a very unfortunate 67-year-old female, in mild respiratory distress on BiPAP mask. HEENT: Atraumatic and normocephalic. Anicteric. Pupils are equal, round, and reactive to light and accommodation. Extraocular muscles intact. NECK: Cannot be assessed due to positive inspiratory pressure. No carotid bruit. Carotid upstroke is 2+ bilaterally. CVS: Normal S1 and S2. Regular rate and rhythm. No murmurs, gallops, or rubs. LUNGS: Diminished breath sounds in both lungs with rhonchi bilaterally. ABDOMEN: Soft, nontender, and nondistended. No hepatosplenomegaly. Positive bowel sounds. EXTREMITIES: No evidence of edema, clubbing, or cyanosis. There is venous stasis of lower extremities with associated ulceration. LABORATORY FINDINGS: At the time of arrival to the hospital, chemistry showed sodium 139, potassium is 5.4, chloride 101, bicarbonate 24, BUN of 40, creatinine 3.1 glucose 79. Calcium is 9.5. Troponin-I was 0.0189. ProBNP 2257. Triglyceride 92, total cholesterol 105, LDL 55, HDL of 39. INR was 1.6 Chest x-ray revealed cardiomegaly with mild congestive heart failure. A 2D echocardiography from 05/13/2018 had shown normal LV systolic function with LVEF of 55% to 60%, moderate LVH, severe right heart enlargement and right ventricular enlargement, severe tricuspid regurgitation with RVSP 45 consistent with moderate pulmonary hypertension, mild pulmonary regurgitation, grade 1 LV diastolic dysfunction, and dilated IVC at 3.9 centimeter with no physiologic collapse, implying RA pressure of approximately 15 to 20 mmHg. ASSESSMENT AND PLAN: The patient is very unfortunate 67-year-old female seen in Cardiology consultation in the intensive care unit of [facility]. 1. Dyspnea most likely secondary to acute hypoxic hypercarbic respiratory failure. This could be due to flash pulmonary edema. the patient with associated volume overload in phase of acute renal failure. The patient may benefit from diuretic therapy as the beta natriuretic peptide is also elevated. A 2D echocardiography however shows normal LV systolic function with a normal intracardiac filling pressures. 2. A cor pulmonale with evidence of RA and RV dilatation and severe RV systolic dysfunction. This could be secondary to prior COPD. Sildenafil may not help in the setting of chronic obstructive pulmonary disease. 3. Paroxysmal atrial fibrillation, currently sinus rhythm. We will continue with amiodarone, Eliquis. 4. Moderate pulmonary hypertension. 5. Slight elevation of troponin I level in this patient could be due to RV strain or due to type 2 non-ST elevation myocardial infarction. At this point, I do not see any acute ST and T-wave abnormalities. I do not see any 12-lead electrocardiogram. We will ask for one. Total amount of time spent in the evaluation of this patient in the intensive care unit of [facility], reviewing the records, discussed the plan of care with the nursing staff, and primary care physician was over 50 minutes. I would like to thank, Dr. Mckinney, for the courtesy of this consultation. Justice Erickson M.D. DR: Natalia JOB#: [id number] CC:
--- NOTE | 2018-05-14 23:54 | Cardiology Progress Note ---
Assessment/Plan Assessment/Plan 1. Dyspnea most likely secondary to acute hypoxic hypercarbic respiratory failure. A 2D echocardiography shows normal LV systolic function with a normal intracardiac filling pressures. 2. Right heart failure, pre-load sensitive, avoid aggressive diuretic use, evidence of RA and RV dilatation and severe RV systolic dysfunction, associated pulmonayr HTN, ? type. 3. Paroxysmal atrial fibrillation, currently sinus rhythm, continue with amiodarone and Eliquis. 4. Hypotension likely due to RV failure, digoxin may help, grim prognosis. 5. Slight elevation of troponin I level in this patient could be due to RV strain/failure or due to type 2 non-ST elevation myocardial infarction. Subjective Subjective Sinus rhythm at rate of 88. Intubated. CXR showed massive RA and RV cavity size and normal LV size. Objective Last 24 Hour Vital Signs Date Time Temp Pulse Resp B/P (MAP) Pulse Ox O2 Delivery O2 Flow Rate FiO2 05/14/18 23:00 80 18 80 05/14/18 22:00 66 18 96/53 (67) 96 05/14/18 22:00 18 Mechanical Ventilator 80 05/14/18 22:00 96/53 05/14/18 21:40 18 Mechanical Ventilator 80 05/14/18 21:30 68 18 94/56 (69) 96 05/14/18 21:06 82 18 80 05/14/18 21:00 94/56 05/14/18 21:00 93 17 184/81 (115) 97 05/14/18 20:30 76 18 161/76 (104) 97 05/14/18 20:00 76 05/14/18 20:00 80 05/14/18 20:00 Mechanical Ventilator 05/14/18 20:00 147/69 05/14/18 20:00 76 18 147/69 (95) 97 05/14/18 19:31 120/63 05/14/18 19:30 99.3 77 18 131/77 (95) 97 05/14/18 19:15 76 18 120/63 (82) 97 05/14/18 19:00 76 17 137/63 (87) 97 05/14/18 18:52 76 18 80 05/14/18 18:00 125/58 05/14/18 18:00 74 18 125/58 (80) 100 05/14/18 17:00 84 16 150/65 (93) 100 05/14/18 17:00 150/65 05/14/18 16:42 78 18 100 05/14/18 16:30 79 18 137/91 (106) 100 05/14/18 16:00 99.2 77 18 158/78 (104) 100 05/14/18 16:00 100 05/14/18 16:00 158/78 05/14/18 16:00 75 05/14/18 16:00 Mechanical Ventilator 05/14/18 15:30 74 18 136/72 (93) 100 05/14/18 15:00 74 18 103/52 (69) 98 05/14/18 15:00 103/52 05/14/18 14:55 85 18 100 05/14/18 14:30 85 18 138/83 (101) 99 05/14/18 14:00 138/83 05/14/18 14:00 91 18 138/83 (101) 100 05/14/18 13:30 171/99 05/14/18 13:30 93 17 171/99 (123) 100 05/14/18 13:00 153/90 05/14/18 13:00 94 17 153/90 (111) 100 05/14/18 12:50 90 18 100 05/14/18 12:45 92 17 152/108 (123) 100 05/14/18 12:45 152/108 05/14/18 12:30 90 12 167/84 (111) 100 05/14/18 12:30 167/84 05/14/18 12:16 155/99 05/14/18 12:00 Mechanical Ventilator 05/14/18 12:00 98.3 95 18 155/99 (117) 99 05/14/18 12:00 91 05/14/18 12:00 100 05/14/18 11:45 98 12 153/97 (115) 99 05/14/18 11:30 97 22 62/45 (51) 99 05/14/18 11:15 95 21 129/102 (111) 99 05/14/18 11:00 58 15 138/100 (113) 95 05/14/18 10:30 94 19 100 05/14/18 10:00 58 15 91/46 (61) 95 05/14/18 10:00 100 05/14/18 09:00 57 13 91/41 (58) 95 05/14/18 08:00 97.8 56 14 91/76 (81) 97 05/14/18 08:00 Bi-pap 05/14/18 08:00 56 05/14/18 08:00 70 05/14/18 07:08 55 15 98 Facial 60 05/14/18 07:00 56 14 91/41 (58) 97 05/14/18 06:00 59 14 87/54 (65) 99 05/14/18 06:00 59 12 91/41 (58) 96 05/14/18 05:12 61 18 100 Facial 70 05/14/18 05:00 98.0 62 15 88/57 (67) 99 05/14/18 05:00 98.0 60 14 92/62 (72) 100 05/14/18 04:00 62 15 88/57 (67) 99 05/14/18 04:00 70 05/14/18 04:00 Bi-pap 05/14/18 04:00 61 05/14/18 03:00 60 14 95/62 (73) 99 05/14/18 02:58 63 17 99 Facial 70 05/14/18 02:00 60 15 93/71 (78) 98 05/14/18 01:00 62 14 90/47 (61) 97 05/14/18 00:45 60 17 95 Facial 70 05/14/18 00:30 60 12 91/69 (76) 97 05/14/18 00:00 Bi-pap 05/14/18 00:00 62 05/14/18 00:00 70 05/14/18 00:00 97.6 60 15 83/21 (41) 95 Intake and Output 05/13/18 05/14/18 19:00 07:00 Intake Total 1053 ml 1750 ml Output Total 60 ml Balance 1053 ml 1690 ml Intake Oral 218 ml 240 ml IV Total 835 ml 1510 ml Output Urine Total 60 ml 2D Echo: LVEF 55%, D-shaped septum due to RV pressure overload, Massive RA/RV size. Laboratory Tests Test 05/14/18 00:33 05/14/18 06:42 05/14/18 08:05 05/14/18 11:45 Arterial Blood pH 7.206 (7.350-7.450) 7.136 (7.350-7.450) 7.184 (7.350-7.450) Arterial Blood Partial Pressure CO2 71.0 mmHg (35.0-45.0) *H 81.2 mmHg (35.0-45.0) *H 72.7 mmHg (35.0-45.0) *H Arterial Blood Partial Pressure O2 76.9 mmHg (75.0-100.0) 108.2 mmHg (75.0-100.0) H 86.8 mmHg (75.0-100.0) Arterial Blood HCO3 27.5 mmol/L (22.0-26.0) H 26.8 mmol/L (22.0-26.0) H 26.8 mmol/L (22.0-26.0) H Arterial Blood Oxygen Saturation 92.2 % (95-100) L 96.6 % (95-100) 94.9 % (95-100) L Arterial Blood Base Excess -1.9 (-2-2) -3.9 (-2-2) L -3.2 (-2-2) L Aditya Test Positive Positive Positive White Blood Count 9.1 K/UL (4.8-10.8) Red Blood Count 4.61 M/UL (4.20-5.40) Hemoglobin 11.5 G/DL (12.0-16.0) L Hematocrit 39.5 % (37.0-47.0) Mean Corpuscular Volume 86 FL (80-99) Mean Corpuscular Hemoglobin 24.9 PG (27.0-31.0) L Mean Corpuscular Hemoglobin Concent 29.0 G/DL (32.0-36.0) L Red Cell Distribution Width 19.3 % (11.6-14.8) H Platelet Count 204 K/UL (150-450) Mean Platelet Volume 8.6 FL (6.5-10.1) Neutrophils (%) (Auto) 78.3 % (45.0-75.0) H Lymphocytes (%) (Auto) 8.8 % (20.0-45.0) L Monocytes (%) (Auto) 11.3 % (1.0-10.0) H Eosinophils (%) (Auto) 0.2 % (0.0-3.0) Basophils (%) (Auto) 1.4 % (0.0-2.0) Reticulocyte Count 3.1 % (0.0-2.0) H Prothrombin Time 16.7 SEC (9.30-11.50) H Prothromb Time International Ratio 1.6 (0.9-1.1) H Activated Partial Thromboplast Time 37 SEC (23-33) H Sodium Level 141 MMOL/L (136-145) Potassium Level 4.2 MMOL/L (3.5-5.1) Chloride Level 106 MMOL/L (98-107) Carbon Dioxide Level 28 MMOL/L (21-32) Anion Gap 7 mmol/L (5-15) Blood Urea Nitrogen 51 mg/dL (7-18) H Creatinine 4.3 MG/DL (0.55-1.30) H Estimat Glomerular Filtration Rate 12.5 mL/min (>60) Glucose Level 110 MG/DL (74-106) H Calcium Level 8.5 MG/DL (8.5-10.1) Phosphorus Level 8.1 MG/DL (2.5-4.9) H Magnesium Level 2.2 MG/DL (1.8-2.4) Iron Level 32 ug/dL (50-175) L Total Iron Binding Capacity 325 ug/dL (250-450) Percent Iron Saturation 10 % (15-50) L Unsaturated Iron Binding 293 ug/dL (112-346) Ferritin 28 NG/ML (8-388) Total Bilirubin 3.0 MG/DL (0.2-1.0) H Direct Bilirubin 2.3 MG/DL (0.0-0.3) H Aspartate Amino Transf (AST/SGOT) 276 U/L (15-37) H Alanine Aminotransferase (ALT/SGPT) 105 U/L (12-78) H Alkaline Phosphatase 237 U/L (46-116) H Ammonia 162 umol/L (11-32) H Pro-B-Type Natriuretic Peptide 2233 pg/mL (0-125) H Total Protein 6.8 G/DL (6.4-8.2) Albumin 2.7 G/DL (3.4-5.0) L Globulin 4.1 g/dL Albumin/Globulin Ratio 0.7 (1.0-2.7) L Carcinoembryonic Antigen Pending Vitamin B12 Level > 2000 PG/ML (193-986) H Folate 11.1 NG/ML (8.6-58.9) Thyroid Stimulating Hormone (TSH) 1.929 uiU/mL (0.358-3.740) Free Thyroxine 1.32 NG/DL (0.76-1.46) Cortisol AM Sample 14.9 UG/DL Hepatitis A IgM Antibody Pending Hepatitis B Surface Antigen Pending Hepatitis B Core IgM Antibody Pending Hepatitis C Antibody Pending Test 05/14/18 13:10 05/14/18 18:30 05/14/18 19:53 Sodium Level 141 MMOL/L (136-145) Potassium Level 3.9 MMOL/L (3.5-5.1) Chloride Level 104 MMOL/L (98-107) Carbon Dioxide Level 25 MMOL/L (21-32) Anion Gap 13 mmol/L (5-15) Blood Urea Nitrogen 52 mg/dL (7-18) H Creatinine 4.3 MG/DL (0.55-1.30) H Estimat Glomerular Filtration Rate 12.5 mL/min (>60) Glucose Level 125 MG/DL (74-106) H Lactic Acid Level 1.30 mmol/L (0.4-2.0) Calcium Level 8.8 MG/DL (8.5-10.1) Troponin I 0.472 ng/mL (0.000-0.056) Arterial Blood pH 7.477 (7.350-7.450) Arterial Blood Partial Pressure CO2 36.6 mmHg (35.0-45.0) Arterial Blood Partial Pressure O2 64.8 mmHg (75.0-100.0) L Arterial Blood HCO3 26.5 mmol/L (22.0-26.0) H Arterial Blood Oxygen Saturation 92.2 % (95-100) L Arterial Blood Base Excess 3.0 (-2-2) H Aditya Test Positive Microbiology Date/Time Source Procedure Growth Status 05/12/18 14:30 Blood Blood Culture - Preliminary NO GROWTH AFTER 24 HOURS Resulted 05/12/18 14:15 Blood Blood Culture - Preliminary NO GROWTH AFTER 24 HOURS Resulted 05/12/18 17:00 Nasal Nares MRSA Culture - Final NO METHICILLIN RESISTANT STAPH AUREUS... Complete 05/13/18 08:45 Urine,Clean Catch Urine Culture - Preliminary NO GROWTH AFTER 24 HOURS Resulted 05/12/18 18:20 Leg Right Gram Stain - Final Resulted 05/12/18 18:20 Leg Right Wound Culture - Preliminary Resulted 05/12/18 18:20 Leg Left Gram Stain - Final Resulted 05/12/18 18:20 Leg Left Wound Culture Pending Resulted 05/12/18 17:00 Rectum VRE Culture - Final NO VANCOMYCIN RESISTANT ENTEROCOCCUS ... Complete 05/12/18 17:00 Rectum - Final NO CARBAPENEM-RESISTANT ENTEROBACTERI... Complete Objective HEENT: Atraumatic and normocephalic. Anicteric. Pupils are equal, round, and reactive to light and accommodation. Extraocular muscles intact. NECK: Cannot be assessed due to positive inspiratory pressure. No carotid bruit. Carotid upstroke is 2+ bilaterally. CVS: Normal S1 and S2. Regular rate and rhythm. No murmurs, gallops, or rubs. LUNGS: Diminished breath sounds in both lungs with rhonchi bilaterally. ABDOMEN: Soft, nontender, and nondistended. No hepatosplenomegaly. Positive bowel sounds. EXTREMITIES: No evidence of edema, clubbing, or cyanosis. There is venous stasis of lower extremities with associated ulceration. Justice Erickson MD May 14, 2018 23:54
[2018-05-15] VITALS (55 sets, daily range): BP systolic 70–170; BP diastolic 30–87
--- NOTE | 2018-05-15 01:00 | NUR ---
NURSE NOTES: Transferred pt to a bariatric bed with weighing scale with the help of 8 staff. Oyqeio=220 lbs. Readjusted Dopamine dose to new wt. Had 1 large diarrhea. Complete bath given
[2018-05-15] MEDS: D5NS 1,000 ML IV SCH ×3 (02:11→19:57)
[2018-05-15] MEDS: Aztreonam Inj 1 GM in D5W 55 ML IVPB SCH ×3 (02:13→16:39)
[2018-05-15] MEDS: DOPAmine 400mg/250ml Premix IV SCH ×2 (02:17→08:42)
--- NOTE | 2018-05-15 03:00 | NUR ---
NURSE NOTES: Calm, asleep but grimaces when legs moved. Dopamine gtt continues at 2mcg/kg/min based on current weight. HR stable. Appears adequately sedated with Fentanyl gtt at 50mcg.h to RASS-2
--- NOTE | 2018-05-15 05:00 | NUR ---
NURSE NOTES: Had another diarrhea. Cleaned and flexiseal inserted. Pt awake and slightly restless. PICC line dressing changed. DA continues at 2mcg/kg/min. UOP good, 80-125ml/h.
[2018-05-15] MEDS: Clindamycin 900mg 50 ML IV SCH ×2 (05:52→14:22)
[2018-05-15] MEDS: NovoLOG Insulin Flexpen SUBQ SCH ×4 (05:53→21:19)
[2018-05-15] MEDS: Lactulose 10gm/15ml UDC NG SCH ×3 (06:00→21:38)
--- NOTE | 2018-05-15 07:12 | NUR ---
Received Patient on Vent settings of ACVC RR 18, VT 550, FIO2 80%, PEEP +5. Patient orally intubated with 7.5 ETT at 26cm at the lip secured by anchorfast. Diminished rhonchi are heard bilaterally. SX thin clear secretions. Vent plugged into red outlet. Alarms are on and audible. Will continue to monitor throughout the day.
[2018-05-15 07:13] LABS: HEMATOCRIT 38.9 % (37.0-47.0); HEMOGLOBIN 11.8 G/DL (12.0-16.0); MEAN CORPUSCULAR VOLUME 81 FL (80-99); PLATELET COUNT 175 K/UL (150-450); RED BLOOD COUNT 4.79 M/UL (4.20-5.40); RED CELL DISTRIBUTION WIDTH 18.2 % (11.6-14.8); WHITE BLOOD COUNT 9.7 K/UL (4.8-10.8)
--- NOTE | 2018-05-15 07:34 | NUR ---
HAND-OFF: Report given to Tenisha Lux RN.
--- NOTE | 2018-05-15 07:35 | NUR ---
NURSE NOTES: Report received from LUCIO Holliday. Pt is lightly sedated. Sinus rhythm with BBB with PAVs and PVCs. Orally intubated. ETT 7.5/26cm at lip level. AC 18, TV 550, FiO2 80%, P 5. O2 sat 97%. Mouth mucosa and lips dryness noted. Oral care done. OGT in place. Kept NPO as per order. Left UA PICC line patent and asymptomatic.D5NS is running at 100cc/hr. On Fentanyl drip at 50mcg/hr and Dopamine at 4mcg/kg/min. Rectal tube and neff in place draining to gravity. Bilateral lower legs dressing dry and intact. Bed in lowest position. Side rails up x3. Will resume plan of care.
[2018-05-15 08:13] LABS: ALANINE AMINOTRANSFERASE 70 U/L (12-78); ALBUMIN 2.6 G/DL (3.4-5.0); ALBUMIN/GLOBULIN RATIO 0.7 (1.0-2.7); ALKALINE PHOSPHATASE 210 U/L (46-116); ANION GAP 7 mmol/L (5-15); ASPARTATE AMINO TRANSFERASE 135 U/L (15-37); BILIRUBIN,TOTAL 3.2 MG/DL (0.2-1.0); BLOOD UREA NITROGEN 50 mg/dL (7-18); CALCIUM 8.3 MG/DL (8.5-10.1); CARBON DIOXIDE 29 MMOL/L (21-32); CHLORIDE 109 MMOL/L (98-107); CHOLESTEROL 80 MG/DL (< 200); CREATINE KINASE 109 U/L (26-308); CREATININE 3.1 MG/DL (0.55-1.30); GAMMA GLUTAMYL TRANSPEPTIDASE 146 U/L (5-85); HDL CHOLESTEROL 24 MG/DL (40-60); PHOSPHORUS 4.4 MG/DL (2.5-4.9); SODIUM 145 MMOL/L (136-145); TRIGLYCERIDES 79 MG/DL (30-150)
[2018-05-15] MEDS: Pantoprazole Inj IVP SCH ×2 (08:43→21:16)
--- NOTE | 2018-05-15 08:57 | NUR ---
Social Work This Sw followed up with daughter, Sal ([phone]) who explained patient was living with her and other children (son and 17 year old daughter). All of her children are working and/school and patient was alone during the day (at times). Patient is wheelchair bound, requires assistance with all ADLs (has a wheelchair, commode, home care for dressing changes. Daughter unable to recall name of the home care agency following. Daughter requesting a shower chair if discharging to home. This SW recommended placement into SNF due to multiple needs patient has, while it does not appear family are available 24 hour per day. Daughter stating she wants to the do the right thing for her mother and agreeable with SNF placement (daughter will also discuss with Raymond regarding plans). Daughter continues to request full code, full treatment (patient does not have an Advance Directive or Polst). Patient is currently intubated, in ICU.
[2018-05-15 09:07] LABS: BILIRUBIN,DIRECT 2.3 MG/DL (0.0-0.3)
--- NOTE | 2018-05-15 09:30 | NUR ---
NURSE NOTES: Kyler, son, at bedside. He took shirley and credit card to home. Belonging list updated. Turned and repositioned pt. Oral care done.
[2018-05-15] MEDS: Nitroglycerin Patch 0.4mg TDERMAL SCH (10:21)
[2018-05-15] MEDS: Allopurinol 100mg Tab NG SCH (10:22)
--- NOTE | 2018-05-15 11:14 | Diagnostic Imaging Report ---
EXAM: XR Chest, 1 View CLINICAL HISTORY: F/U TECHNIQUE: Frontal view of the chest. COMPARISON: Chest x-ray, 05/14/18 1123 FINDINGS: Lungs: Rotated film. Interstitial prominence, stable. Bibasilar lung atelectasis. Pleural space: Query small right pleural effusion. No pneumothorax. Heart: Marked cardiomegaly. Mediastinum: Unremarkable. Bones/joints: Unremarkable. Tubes, lines and devices: Endotracheal tube is at the tracee, may be due to positioning, consider pulling back 2 cm. NG tube traverses diaphragm, tip is not seen. Left PICC line tip terminates at the innominate/SVC junction. IMPRESSION: 1. Rotated film. Interstitial prominence, stable. Query small right pleural effusion. 2. Endotracheal tube is at the tracee, may be due to positioning, consider pulling back 2 cm. 3. Left PICC line tip terminates at the innominate/SVC junction. Critical [employer] 05/15/18 11:22 Verify Receipt with Nurse Verified receipt with ALESSANDRA Andrew in ICU for LUCIO Cruz on 05/15 11:21 (-08:00)
--- NOTE | 2018-05-15 11:44 | Nephrology Progress Note ---
Assessment/Plan Problem List: (1) ARF (acute renal failure) (2) Cellulitis of both lower extremities (3) Venous stasis ulcers of both lower extremities (4) DM (diabetes mellitus) (5) CKD (chronic kidney disease) (6) Morbid (severe) obesity due to excess calories (7) Acute hypoxemic respiratory failure Assessment Diabetic Nephropathy acute renal failure super imposed on CKD Encephalopathy, CO2 retainer, respiratory failure acute Obesity High Trop High Bili UTI Bilateral LE cellulitis Anemia Plan pulmonary support / Mechanical ventilation Anaya pressors Urine studies Avoid nephrotoxics monitor renal parameters 2D echo kidney WESLEY Per ID , Pulm... meds IV or OG tube Avoid mind altering meds per orders Subjective ROS Limited/Unobtainable: Yes Objective Objective Last 24 Hour Vital Signs Date Time Temp Pulse Resp B/P (MAP) Pulse Ox O2 Delivery O2 Flow Rate FiO2 05/15/18 10:43 96 18 80 05/15/18 10:21 125/68 05/15/18 08:57 88 18 80 05/15/18 08:42 133/62 05/15/18 07:26 91 18 80 05/15/18 07:00 85 18 136/64 (88) 97 05/15/18 06:30 87 17 127/64 (85) 96 05/15/18 06:00 87 18 119/60 (79) 96 05/15/18 06:00 18 Mechanical Ventilator 80 05/15/18 06:00 119/60 05/15/18 05:30 90 15 117/59 (78) 96 05/15/18 05:27 90 18 80 05/15/18 05:00 18 Mechanical Ventilator 80 05/15/18 05:00 138/72 05/15/18 05:00 93 18 138/72 (94) 96 05/15/18 04:30 96 16 142/56 (84) 96 05/15/18 04:03 75 05/15/18 04:03 80 05/15/18 04:02 Mechanical Ventilator 05/15/18 04:00 98.7 87 18 135/60 (85) 97 05/15/18 04:00 135/60 05/15/18 03:30 93 18 137/58 (84) 96 05/15/18 03:11 85 18 80 05/15/18 03:00 18 Mechanical Ventilator 80 05/15/18 03:00 125/67 1/19/19 03:00 94 18 125/67 (86) 97 05/15/18 02:30 89 18 130/66 (87) 97 05/15/18 02:17 140/66 05/15/18 02:00 18 Mechanical Ventilator 80 05/15/18 02:00 140/66 05/15/18 02:00 94 17 140/66 (90) 96 05/15/18 01:30 72 16 87/46 (60) 95 05/15/18 01:07 88 18 80 05/15/18 01:00 18 Mechanical Ventilator 80 05/15/18 01:00 134/70 05/15/18 01:00 94/36 (55) 05/15/18 00:30 76 18 134/70 (91) 97 05/15/18 00:07 72 05/15/18 00:07 80 05/15/18 00:06 Mechanical Ventilator 05/15/18 00:00 18 Mechanical Ventilator 80 05/15/18 00:00 127/62 05/15/18 00:00 100.0 77 18 127/62 (83) 96 05/14/18 23:30 76 18 130/61 (84) 96 05/14/18 23:00 80 18 80 05/14/18 23:00 75 18 127/66 (86) 97 05/14/18 23:00 18 Mechanical Ventilator 80 05/14/18 23:00 127/66 05/14/18 22:30 72 18 113/58 (76) 96 05/14/18 22:00 66 18 96/53 (67) 96 05/14/18 22:00 18 Mechanical Ventilator 80 05/14/18 22:00 96/53 05/14/18 21:40 18 Mechanical Ventilator 80 05/14/18 21:30 68 18 94/56 (69) 96 05/14/18 21:06 82 18 80 05/14/18 21:00 94/56 05/14/18 21:00 93 17 184/81 (115) 97 05/14/18 20:30 76 18 161/76 (104) 97 05/14/18 20:00 76 05/14/18 20:00 80 05/14/18 20:00 Mechanical Ventilator 05/14/18 20:00 147/69 1/18/19 20:00 76 18 147/69 (95) 97 05/14/18 19:31 120/63 05/14/18 19:30 99.3 77 18 131/77 (95) 97 05/14/18 19:15 76 18 120/63 (82) 97 05/14/18 19:00 76 17 137/63 (87) 97 05/14/18 18:52 76 18 80 05/14/18 18:00 125/58 05/14/18 18:00 74 18 125/58 (80) 100 05/14/18 17:00 84 16 150/65 (93) 100 05/14/18 17:00 150/65 05/14/18 16:42 78 18 100 05/14/18 16:30 79 18 137/91 (106) 100 05/14/18 16:00 99.2 77 18 158/78 (104) 100 05/14/18 16:00 100 05/14/18 16:00 158/78 05/14/18 16:00 75 05/14/18 16:00 Mechanical Ventilator 05/14/18 15:30 74 18 136/72 (93) 100 05/14/18 15:00 74 18 103/52 (69) 98 05/14/18 15:00 103/52 05/14/18 14:55 85 18 100 05/14/18 14:30 85 18 138/83 (101) 99 05/14/18 14:00 138/83 05/14/18 14:00 91 18 138/83 (101) 100 05/14/18 13:30 171/99 05/14/18 13:30 93 17 171/99 (123) 100 05/14/18 13:00 153/90 05/14/18 13:00 94 17 153/90 (111) 100 05/14/18 12:50 90 18 100 05/14/18 12:45 92 17 152/108 (123) 100 05/14/18 12:45 152/108 05/14/18 12:30 90 12 167/84 (111) 100 05/14/18 12:30 167/84 05/14/18 12:16 155/99 05/14/18 12:00 Mechanical Ventilator 05/14/18 12:00 98.3 95 18 155/99 (117) 99 05/14/18 12:00 91 05/14/18 12:00 100 05/14/18 11:45 98 12 153/97 (115) 99 Intake and Output 05/14/18 05/15/18 19:00 07:00 Intake Total 1702.625 ml 1513.8 ml Output Total 755 ml 1070 ml Balance 947.625 ml 443.8 ml Intake Oral 0 ml 0 ml IV Total 1702.625 ml 1393.8 ml Other 120 ml Output Urine Total 755 ml 1070 ml # Bowel Movements 2 Laboratory Tests 05/14/18 11:45: Arterial Blood pH 7.184*L, Arterial Blood Partial Pressure CO2 72.7*H, Arterial Blood Partial Pressure O2 86.8, Arterial Blood HCO3 26.8H, Arterial Blood Oxygen Saturation 94.9L, Arterial Blood Base Excess -3.2L, Aditya Test Positive 05/14/18 13:10: Sodium Level 141, Potassium Level 3.9, Chloride Level 104, Carbon Dioxide Level 25, Anion Gap 13, Blood Urea Nitrogen 52H, Creatinine 4.3H, Estimat Glomerular Filtration Rate 12.5, Glucose Level 125H, Lactic Acid Level 1.30, Calcium Level 8.8 05/14/18 18:30: Troponin I 0.472H 05/14/18 19:53: Arterial Blood pH 7.477H, Arterial Blood Partial Pressure CO2 36.6, Arterial Blood Partial Pressure O2 64.8L, Arterial Blood HCO3 26.5H, Arterial Blood Oxygen Saturation 92.2L, Arterial Blood Base Excess 3.0H, Aditya Test Positive 05/15/18 06:23: White Blood Count 9.7, Red Blood Count 4.79, Hemoglobin 11.8L, Hematocrit 38.9, Mean Corpuscular Volume 81, Mean Corpuscular Hemoglobin 24.7L, Mean Corpuscular Hemoglobin Concent 30.5L, Red Cell Distribution Width 18.2H, Platelet Count 175 , Mean Platelet Volume 7.9, Neutrophils (%) (Auto) , Lymphocytes (%) (Auto) , Monocytes (%) (Auto) , Eosinophils (%) (Auto) , Basophils (%) (Auto) , Neutrophils % (Manual) [Pending], Lymphocytes % (Manual) [Pending], Platelet Estimate [Pending], Platelet Morphology [Pending], Sodium Level 145, Potassium Level 3.0L, Chloride Level 109H, Carbon Dioxide Level 29, Anion Gap 7, Blood Urea Nitrogen 50H, Creatinine 3.1H, Estimat Glomerular Filtration Rate 18.3, Glucose Level 121H, Hemoglobin A1c 6.6H, Uric Acid 12.6H, Calcium Level 8.3L, Phosphorus Level 4.4, Magnesium Level 2.0, Total Bilirubin 3.2H, Direct Bilirubin 2.3H, Gamma Glutamyl Transpeptidase 146H, Aspartate Amino Transf (AST/ SGOT) 135H, Alanine Aminotransferase (ALT/SGPT) 70, Alkaline Phosphatase 210H, Ammonia 83H, Total Creatine Kinase 109, Troponin I 0.414H, C-Reactive Protein, Quantitative 7.0H, Pro-B-Type Natriuretic Peptide 1978H, Total Protein 6.5, Albumin 2.6L, Globulin 3.9, Albumin/Globulin Ratio 0.7L, Triglycerides Level 79 , Cholesterol Level 80, LDL Cholesterol 46, HDL Cholesterol 24L, Cholesterol/ HDL Ratio 3.3, Cortisol AM Sample [Pending] 05/15/18 08:30: Urine Eosinophils [Pending] 05/15/18 08:50: Arterial Blood pH 7.387, Arterial Blood Partial Pressure CO2 40.8, Arterial Blood Partial Pressure O2 96.4, Arterial Blood HCO3 24.0, Arterial Blood Oxygen Saturation 96.9, Arterial Blood Base Excess -1.0, Aditya Test Positive Height (Feet): 5 Height (Inches): 3.00 Weight (Pounds): 316 General Appearance: no apparent distress EENT: other - on vent Respiratory/Chest: decreased breath sounds Abdomen: distended Tr Strange MD May 15, 2018 11:44
--- NOTE | 2018-05-15 11:51 | NUR ---
NURSE NOTES: ETT pulled back 2 cm by RT as per the CXR result recommended. Dr Conteh here to see the patient. Updated him with pt's current condition. Will continue to monitor.
--- NOTE | 2018-05-15 12:28 | General Progress Note ---
Assessment/Plan Assessment/Plan S, O: Intubated, PICC line in place, Sedated. limited exam PHYSICAL EXAMINATION: HEAD AND NECK: Atraumatic and normocephalic. CHEST: Diffuse bronchial breathing sounds. Overall decreased breathing sounds. ABDOMEN: Grossly morbidly obese. Limited evaluation. MUSCULOSKELETAL: Positive for ulcers and wounds, more diffusely edematous about 2+. NEUROLOGIC: The patient is sedated and intubated. limited exam Meds: Reviewed and reconciled. Including Dopamine gtt Renal Us : reviewed ASSESSMENT: 1.Vent Dependent Respiratory failure 2. shock, ddx: septic vs cardiogenic 3. CHF exacerbation 3. Acute/Chronic Renal F 4. Abnormal Trop: NSTEMI vs Leakage 3. UTI/lower extremity infection Hypertension. 4. Diabetes type 2, controlled with A1c of 6.3. 5. Pain management. 6. GI and DVT prophylaxis. PLAN OF CARE: Grave prognosis discussed with Cardiology Subjective Allergies: Coded Allergies: ASPIRIN (Verified Allergy, Intermediate, Hives, 01/06/13) PENICILLINS (Verified Allergy, Intermediate, Hives, 01/06/13) Objective Last 24 Hour Vital Signs Date Time Temp Pulse Resp B/P (MAP) Pulse Ox O2 Delivery O2 Flow Rate FiO2 05/15/18 12:00 Mechanical Ventilator 05/15/18 11:50 80 05/15/18 11:30 70 18 73/44 (54) 99 05/15/18 11:00 74 18 75/48 (57) 97 05/15/18 10:43 96 18 80 05/15/18 10:30 91 18 150/61 (90) 97 05/15/18 10:21 125/68 05/15/18 10:00 89 18 129/73 (91) 96 05/15/18 09:30 86 18 125/67 (86) 96 05/15/18 09:00 96 17 133/62 (85) 96 05/15/18 08:57 88 18 80 05/15/18 08:42 133/62 05/15/18 08:30 89 18 133/62 (85) 96 05/15/18 08:00 Mechanical Ventilator 05/15/18 08:00 97.7 91 18 135/68 (90) 97 05/15/18 07:30 92 17 133/68 (89) 96 05/15/18 07:26 91 18 80 05/15/18 07:00 85 18 136/64 (88) 97 05/15/18 06:30 87 17 127/64 (85) 96 05/15/18 06:00 87 18 119/60 (79) 96 05/15/18 06:00 18 Mechanical Ventilator 80 05/15/18 06:00 119/60 05/15/18 05:30 90 15 117/59 (78) 96 05/15/18 05:27 90 18 80 05/15/18 05:00 18 Mechanical Ventilator 80 05/15/18 05:00 138/72 05/15/18 05:00 93 18 138/72 (94) 96 05/15/18 04:30 96 16 142/56 (84) 96 05/15/18 04:03 75 05/15/18 04:03 80 05/15/18 04:02 Mechanical Ventilator 05/15/18 04:00 98.7 87 18 135/60 (85) 97 05/15/18 04:00 135/60 05/15/18 03:30 93 18 137/58 (84) 96 05/15/18 03:11 85 18 80 05/15/18 03:00 18 Mechanical Ventilator 80 05/15/18 03:00 125/67 05/15/18 03:00 94 18 125/67 (86) 97 05/15/18 02:30 89 18 130/66 (87) 97 05/15/18 02:17 140/66 05/15/18 02:00 18 Mechanical Ventilator 80 05/15/18 02:00 140/66 05/15/18 02:00 94 17 140/66 (90) 96 05/15/18 01:30 72 16 87/46 (60) 95 05/15/18 01:07 88 18 80 05/15/18 01:00 18 Mechanical Ventilator 80 05/15/18 01:00 134/70 05/15/18 01:00 94/36 (55) 05/15/18 00:30 76 18 134/70 (91) 97 05/15/18 00:07 72 05/15/18 00:07 80 05/15/18 00:06 Mechanical Ventilator 05/15/18 00:00 18 Mechanical Ventilator 80 05/15/18 00:00 127/62 05/15/18 00:00 100.0 77 18 127/62 (83) 96 05/14/18 23:30 76 18 130/61 (84) 96 05/14/18 23:00 80 18 80 05/14/18 23:00 75 18 127/66 (86) 97 05/14/18 23:00 18 Mechanical Ventilator 80 05/14/18 23:00 127/66 05/14/18 22:30 72 18 113/58 (76) 96 05/14/18 22:00 66 18 96/53 (67) 96 05/14/18 22:00 18 Mechanical Ventilator 80 05/14/18 22:00 96/53 05/14/18 21:40 18 Mechanical Ventilator 80 05/14/18 21:30 68 18 94/56 (69) 96 05/14/18 21:06 82 18 80 05/14/18 21:00 94/56 05/14/18 21:00 93 17 184/81 (115) 97 05/14/18 20:30 76 18 161/76 (104) 97 05/14/18 20:00 76 05/14/18 20:00 80 05/14/18 20:00 Mechanical Ventilator 05/14/18 20:00 147/69 05/14/18 20:00 76 18 147/69 (95) 97 05/14/18 19:31 120/63 05/14/18 19:30 99.3 77 18 131/77 (95) 97 05/14/18 19:15 76 18 120/63 (82) 97 05/14/18 19:00 76 17 137/63 (87) 97 05/14/18 18:52 76 18 80 05/14/18 18:00 125/58 05/14/18 18:00 74 18 125/58 (80) 100 05/14/18 17:00 84 16 150/65 (93) 100 05/14/18 17:00 150/65 05/14/18 16:42 78 18 100 05/14/18 16:30 79 18 137/91 (106) 100 05/14/18 16:00 99.2 77 18 158/78 (104) 100 05/14/18 16:00 100 05/14/18 16:00 158/78 05/14/18 16:00 75 05/14/18 16:00 Mechanical Ventilator 05/14/18 15:30 74 18 136/72 (93) 100 05/14/18 15:00 74 18 103/52 (69) 98 05/14/18 15:00 103/52 05/14/18 14:55 85 18 100 05/14/18 14:30 85 18 138/83 (101) 99 05/14/18 14:00 138/83 05/14/18 14:00 91 18 138/83 (101) 100 05/14/18 13:30 171/99 05/14/18 13:30 93 17 171/99 (123) 100 05/14/18 13:00 153/90 05/14/18 13:00 94 17 153/90 (111) 100 05/14/18 12:50 90 18 100 05/14/18 12:45 92 17 152/108 (123) 100 05/14/18 12:45 152/108 05/14/18 12:30 90 12 167/84 (111) 100 05/14/18 12:30 167/84 Intake and Output 05/14/18 05/15/18 18:59 06:59 Intake Total 1677.625 ml 1613.8 ml Output Total 640 ml 1095 ml Balance 1037.625 ml 518.8 ml Intake Oral 0 ml 0 ml IV Total 1677.625 ml 1493.8 ml Other 120 ml Output Urine Total 640 ml 1095 ml # Bowel Movements 2 Laboratory Tests 05/14/18 13:10: Sodium Level 141, Potassium Level 3.9, Chloride Level 104, Carbon Dioxide Level 25, Anion Gap 13, Blood Urea Nitrogen 52H, Creatinine 4.3H, Estimat Glomerular Filtration Rate 12.5, Glucose Level 125H, Lactic Acid Level 1.30, Calcium Level 8.8 05/14/18 18:30: Troponin I 0.472H 05/14/18 19:53: Arterial Blood pH 7.477H, Arterial Blood Partial Pressure CO2 36.6, Arterial Blood Partial Pressure O2 64.8L, Arterial Blood HCO3 26.5H, Arterial Blood Oxygen Saturation 92.2L, Arterial Blood Base Excess 3.0H, Aditya Test Positive 05/15/18 06:23: Sodium Level 145, Potassium Level 3.0L, Chloride Level 109H, Carbon Dioxide Level 29, Anion Gap 7, Blood Urea Nitrogen 50H, Creatinine 3.1H, Estimat Glomerular Filtration Rate 18.3, Glucose Level 121H, Calcium Level 8.3L, Troponin I 0.414H, White Blood Count 9.7, Red Blood Count 4.79, Hemoglobin 11.8L , Hematocrit 38.9, Mean Corpuscular Volume 81, Mean Corpuscular Hemoglobin 24.7L , Mean Corpuscular Hemoglobin Concent 30.5L, Red Cell Distribution Width 18.2H, Platelet Count 175, Mean Platelet Volume 7.9, Neutrophils (%) (Auto) , Lymphocytes (%) (Auto) , Monocytes (%) (Auto) , Eosinophils (%) (Auto) , Basophils (%) (Auto) , Neutrophils % (Manual) [Pending], Lymphocytes % (Manual) [Pending], Platelet Estimate [Pending], Platelet Morphology [Pending], Hemoglobin A1c 6.6H, Uric Acid 12.6H, Phosphorus Level 4.4, Magnesium Level 2.0 , Total Bilirubin 3.2H, Direct Bilirubin 2.3H, Gamma Glutamyl Transpeptidase 146H, Aspartate Amino Transf (AST/SGOT) 135H, Alanine Aminotransferase (ALT/SGPT ) 70, Alkaline Phosphatase 210H, Ammonia 83H, Total Creatine Kinase 109, C- Reactive Protein, Quantitative 6.9H, Pro-B-Type Natriuretic Peptide 1978H, Total Protein 6.5, Albumin 2.6L, Globulin 3.9, Albumin/Globulin Ratio 0.7L, Triglycerides Level 79, Cholesterol Level 80, LDL Cholesterol 46, HDL Cholesterol 24L, Cholesterol/HDL Ratio 3.3, Cortisol AM Sample [Pending] 05/15/18 08:30: Urine Eosinophils [Pending] 05/15/18 08:50: Arterial Blood pH 7.387, Arterial Blood Partial Pressure CO2 40.8, Arterial Blood Partial Pressure O2 96.4, Arterial Blood HCO3 24.0, Arterial Blood Oxygen Saturation 96.9, Arterial Blood Base Excess -1.0, Aditya Test Positive Height (Feet): 5 Height (Inches): 3.00 Weight (Pounds): 316 Margaret Mckinney MD May 15, 2018 12:28
--- NOTE | 2018-05-15 12:50 | NUR ---
NURSE NOTES: Pt is lightly sedated. Oral care done. Afebrile. Dr Mckinney here to see the patient. Updated him with pt's current condition. No new orders.
[2018-05-15] MEDS ORDERED: DOBUTamine 250mg/250ml Premix 250 ML IV SCH (14:15)
[2018-05-15] MEDS: Enoxaparin 100mg Inj SUBQ SCH (14:24)
[2018-05-15] MEDS ORDERED: NS 500ML ONE ×2 (14:57→19:47)
--- NOTE | 2018-05-15 15:13 | Infectious Diseases Prog Note ---
Assessment/Plan Problems: (1) Bilateral lower leg cellulitis Assessment & Plan: with blisters , will switch to cefazoline and continue aztreonam empirically with local wounds care . patient refused MRI and CT of the legs to rule out deep abscess or osteomyelitis. await bone scan of both legs . D/W cyber incident handler (2) Nonhealing ulcer of left lower extremity Assessment & Plan: await wound culture , and continue wide spectrum antibiotics , continue local wound care and dressings change as per wound care service (3) Painful legs and moving toes Assessment & Plan: suspect due to the above , will order venous doppler to rule out DVT (4) CKD (chronic kidney disease) Assessment & Plan: avoid nephrotoxics , renally dosed antibiotics as per pharmacy (5) DM (diabetes mellitus) Assessment & Plan: recommend tight glycemic control to keep blood glucose between 100-140 (6) Acute encephalopathy Assessment & Plan: suspect metabolic with high ammonia level, continue lactulose , consult neurology if no improvement with brain image (7) Acute hypoxemic respiratory failure Assessment & Plan: due to the above , intubated on mechanical ventilation, pulmonary is following Subjective ROS Limited/Unobtainable: Yes Allergies: Coded Allergies: ASPIRIN (Verified Allergy, Intermediate, Hives, 01/06/13) PENICILLINS (Verified Allergy, Intermediate, Hives, 01/06/13) Subjective she was still intubated on mechanical ventilation in ICU , sedated , unresponsive to verbal commands, afebrile, NAD . has more UOP Objective Vital Signs Last 24 Hour Vital Signs Date Time Temp Pulse Resp B/P (MAP) Pulse Ox O2 Delivery O2 Flow Rate FiO2 05/15/18 15:00 91 18 60 05/15/18 14:31 94/70 05/15/18 14:30 103 19 135/66 (89) 94 05/15/18 14:30 60 05/15/18 14:23 60 05/15/18 14:00 98 18 110/62 (78) 97 05/15/18 13:30 95 16 109/60 (76) 98 05/15/18 13:00 96 22 108/58 (75) 94 05/15/18 12:51 96 20 80 05/15/18 12:30 96 17 91/66 (74) 94 05/15/18 12:15 90 17 139/66 (90) 97 05/15/18 12:00 Mechanical Ventilator 05/15/18 12:00 80 18 112/64 (80) 98 05/15/18 12:00 80 05/15/18 12:00 18 Mechanical Ventilator 80 05/15/18 12:00 139/66 05/15/18 11:50 80 05/15/18 11:30 70 18 73/44 (54) 99 05/15/18 11:00 74 18 75/48 (57) 97 05/15/18 11:00 18 80 05/15/18 11:00 68/49 05/15/18 10:43 96 18 80 05/15/18 10:30 91 18 150/61 (90) 97 05/15/18 10:21 125/68 05/15/18 10:00 89 18 129/73 (91) 96 05/15/18 10:00 18 80 05/15/18 10:00 135/51 05/15/18 09:30 86 18 125/67 (86) 96 05/15/18 09:00 96 17 133/62 (85) 96 05/15/18 09:00 18 80 05/15/18 09:00 125/67 05/15/18 08:57 88 18 80 05/15/18 08:42 133/62 05/15/18 08:30 89 18 133/62 (85) 96 05/15/18 08:00 Mechanical Ventilator 05/15/18 08:00 17 Mechanical Ventilator 80 05/15/18 08:00 97.7 91 18 135/68 (90) 97 05/15/18 07:30 92 17 133/68 (89) 96 05/15/18 07:26 91 18 80 05/15/18 07:00 17 Mechanical Ventilator 80 05/15/18 07:00 133/68 05/15/18 07:00 85 18 136/64 (88) 97 05/15/18 06:30 87 17 127/64 (85) 96 05/15/18 06:00 87 18 119/60 (79) 96 05/15/18 06:00 18 Mechanical Ventilator 80 05/15/18 06:00 119/60 05/15/18 05:30 90 15 117/59 (78) 96 05/15/18 05:27 90 18 80 05/15/18 05:00 18 Mechanical Ventilator 80 05/15/18 05:00 138/72 05/15/18 05:00 93 18 138/72 (94) 96 05/15/18 04:30 96 16 142/56 (84) 96 05/15/18 04:03 75 05/15/18 04:03 80 05/15/18 04:02 Mechanical Ventilator 05/15/18 04:00 98.7 87 18 135/60 (85) 97 05/15/18 04:00 135/60 05/15/18 03:30 93 18 137/58 (84) 96 05/15/18 03:11 85 18 80 05/15/18 03:00 18 Mechanical Ventilator 80 05/15/18 03:00 125/67 05/15/18 03:00 94 18 125/67 (86) 97 05/15/18 02:30 89 18 130/66 (87) 97 05/15/18 02:17 140/66 05/15/18 02:00 18 Mechanical Ventilator 80 05/15/18 02:00 140/66 05/15/18 02:00 94 17 140/66 (90) 96 05/15/18 01:30 72 16 87/46 (60) 95 05/15/18 01:07 88 18 80 05/15/18 01:00 18 Mechanical Ventilator 80 05/15/18 01:00 134/70 05/15/18 01:00 94/36 (55) 05/15/18 00:30 76 18 134/70 (91) 97 05/15/18 00:07 72 05/15/18 00:07 80 05/15/18 00:06 Mechanical Ventilator 05/15/18 00:00 18 Mechanical Ventilator 80 05/15/18 00:00 127/62 05/15/18 00:00 100.0 77 18 127/62 (83) 96 05/14/18 23:30 76 18 130/61 (84) 96 05/14/18 23:00 80 18 80 05/14/18 23:00 75 18 127/66 (86) 97 05/14/18 23:00 18 Mechanical Ventilator 80 05/14/18 23:00 127/66 05/14/18 22:30 72 18 113/58 (76) 96 05/14/18 22:00 66 18 96/53 (67) 96 1/18/19 22:00 18 Mechanical Ventilator 80 05/14/18 22:00 96/53 05/14/18 21:40 18 Mechanical Ventilator 80 05/14/18 21:30 68 18 94/56 (69) 96 05/14/18 21:06 82 18 80 05/14/18 21:00 94/56 05/14/18 21:00 93 17 184/81 (115) 97 05/14/18 20:30 76 18 161/76 (104) 97 05/14/18 20:00 76 05/14/18 20:00 80 05/14/18 20:00 Mechanical Ventilator 05/14/18 20:00 147/69 05/14/18 20:00 76 18 147/69 (95) 97 05/14/18 19:31 120/63 05/14/18 19:30 99.3 77 18 131/77 (95) 97 05/14/18 19:15 76 18 120/63 (82) 97 05/14/18 19:00 76 17 137/63 (87) 97 05/14/18 18:52 76 18 80 05/14/18 18:00 125/58 05/14/18 18:00 74 18 125/58 (80) 100 05/14/18 17:00 84 16 150/65 (93) 100 05/14/18 17:00 150/65 05/14/18 16:42 78 18 100 05/14/18 16:30 79 18 137/91 (106) 100 05/14/18 16:00 99.2 77 18 158/78 (104) 100 05/14/18 16:00 100 05/14/18 16:00 158/78 05/14/18 16:00 75 05/14/18 16:00 Mechanical Ventilator 05/14/18 15:30 74 18 136/72 (93) 100 Height (Feet): 5 Height (Inches): 3.00 Weight (Pounds): 316 General Appearance: WD/WN, no acute distress, other - intubated HEENT: atraumatic, anicteric, mucous membranes moist, PERRL, other - periorbital edema Respiratory/Chest: no respiratory distress, no accessory muscle use, decreased breath sounds, crackles/rales Cardiovascular: normal peripheral pulses, normal rate, regular rhythm, no gallop/murmur, no JVD Abdomen: soft, non tender, no organomegaly, no mass, no scars, hypoactive bowel sounds, distended, other - lymphedema Extremities: no cyanosis, no clubbing Skin: no rash, no lesions, ulcers Neurologic/Psychiatric: unresponsiveness Lymphatic: no neck adenopathy, no groin adenopathy Musculoskeletal: other - legs swelling Microbiology Date/Time Source Procedure Growth Status 05/12/18 17:00 Nasal Nares MRSA Culture - Final NO METHICILLIN RESISTANT STAPH AUREUS... Complete 05/13/18 08:45 Urine,Clean Catch Urine Culture - Final NO GROWTH AFTER 48 HOURS Complete 05/12/18 18:20 Leg Right Gram Stain - Final Resulted 05/12/18 18:20 Leg Right Wound Culture - Preliminary Resulted 05/12/18 18:20 Leg Left Gram Stain - Final Resulted 05/12/18 18:20 Leg Left Wound Culture - Preliminary Resulted 05/12/18 17:00 Rectum VRE Culture - Final NO VANCOMYCIN RESISTANT ENTEROCOCCUS ... Complete 05/12/18 17:00 Rectum - Final NO CARBAPENEM-RESISTANT ENTEROBACTERI... Complete Laboratory Tests Test 05/14/18 18:30 05/14/18 19:53 05/15/18 06:23 05/15/18 08:30 Troponin I 0.472 ng/mL (0.000-0.056) 0.414 ng/mL (0.000-0.056) Arterial Blood pH 7.477 (7.350-7.450) Arterial Blood Partial Pressure CO2 36.6 mmHg (35.0-45.0) Arterial Blood Partial Pressure O2 64.8 mmHg (75.0-100.0) L Arterial Blood HCO3 26.5 mmol/L (22.0-26.0) H Arterial Blood Oxygen Saturation 92.2 % (95-100) L Arterial Blood Base Excess 3.0 (-2-2) H Aditya Test Positive White Blood Count 9.7 K/UL (4.8-10.8) Red Blood Count 4.79 M/UL (4.20-5.40) Hemoglobin 11.8 G/DL (12.0-16.0) L Hematocrit 38.9 % (37.0-47.0) Mean Corpuscular Volume 81 FL (80-99) Mean Corpuscular Hemoglobin 24.7 PG (27.0-31.0) L Mean Corpuscular Hemoglobin Concent 30.5 G/DL (32.0-36.0) L Red Cell Distribution Width 18.2 % (11.6-14.8) H Platelet Count 175 K/UL (150-450) Mean Platelet Volume 7.9 FL (6.5-10.1) Neutrophils (%) (Auto) % (45.0-75.0) Lymphocytes (%) (Auto) % (20.0-45.0) Monocytes (%) (Auto) % (1.0-10.0) Eosinophils (%) (Auto) % (0.0-3.0) Basophils (%) (Auto) % (0.0-2.0) Differential Total Cells Counted 100 Neutrophils % (Manual) 85 % (45-75) H Lymphocytes % (Manual) 6 % (20-45) L Monocytes % (Manual) 9 % (1-10) Eosinophils % (Manual) 0 % (0-3) Basophils % (Manual) 0 % (0-2) Band Neutrophils 0 % (0-8) Platelet Estimate Adequate Platelet Morphology Normal Polychromasia 2+ Hypochromasia 2+ Anisocytosis 2+ Microcytosis 1+ Ovalocytes 1+ Sodium Level 145 MMOL/L (136-145) Potassium Level 3.0 MMOL/L (3.5-5.1) L Chloride Level 109 MMOL/L (98-107) H Carbon Dioxide Level 29 MMOL/L (21-32) Anion Gap 7 mmol/L (5-15) Blood Urea Nitrogen 50 mg/dL (7-18) H Creatinine 3.1 MG/DL (0.55-1.30) H Estimat Glomerular Filtration Rate 18.3 mL/min (>60) Glucose Level 121 MG/DL (74-106) H Hemoglobin A1c 6.6 % (4.3-6.0) H Uric Acid 12.6 MG/DL (2.6-7.2) H Calcium Level 8.3 MG/DL (8.5-10.1) L Phosphorus Level 4.4 MG/DL (2.5-4.9) Magnesium Level 2.0 MG/DL (1.8-2.4) Total Bilirubin 3.2 MG/DL (0.2-1.0) H Direct Bilirubin 2.3 MG/DL (0.0-0.3) H Gamma Glutamyl Transpeptidase 146 U/L (5-85) H Aspartate Amino Transf (AST/SGOT) 135 U/L (15-37) H Alanine Aminotransferase (ALT/SGPT) 70 U/L (12-78) Alkaline Phosphatase 210 U/L (46-116) H Ammonia 83 umol/L (11-32) H Total Creatine Kinase 109 U/L (26-308) C-Reactive Protein, Quantitative 6.9 mg/dL (0.00-0.90) H Pro-B-Type Natriuretic Peptide 1978 pg/mL (0-125) H Total Protein 6.5 G/DL (6.4-8.2) Albumin 2.6 G/DL (3.4-5.0) L Globulin 3.9 g/dL Albumin/Globulin Ratio 0.7 (1.0-2.7) L Triglycerides Level 79 MG/DL (30-150) Cholesterol Level 80 MG/DL (< 200) LDL Cholesterol 46 mg/dL (<100) HDL Cholesterol 24 MG/DL (40-60) L Cholesterol/HDL Ratio 3.3 (3.3-4.4) Cortisol AM Sample Pending Urine Eosinophils None seen (NONE SEEN) Test 05/15/18 08:50 Arterial Blood pH 7.387 (7.350-7.450) Arterial Blood Partial Pressure CO2 40.8 mmHg (35.0-45.0) Arterial Blood Partial Pressure O2 96.4 mmHg (75.0-100.0) Arterial Blood HCO3 24.0 mmol/L (22.0-26.0) Arterial Blood Oxygen Saturation 96.9 % (95-100) Arterial Blood Base Excess -1.0 (-2-2) Aditya Test Positive Current Medications Medications (Trade) Dose Ordered Sig/Toya Route PRN Reason Start Time Stop Time Status Last Admin Dose Admin Allopurinol (Zyloprim) 100 mg DAILY NG 05/15/18 09:00 06/14/18 08:59 05/15/18 10:22 Atorvastatin Calcium (Lipitor) 40 mg BEDTIME ORAL 05/14/18 21:00 06/13/18 20:59 05/14/18 20:53 Aztreonam 1 gm/ Dextrose 55 ml @ 110 mls/hr Q8HR@0000,0800,1600 IVPB 05/14/18 00:00 05/20/18 00:00 05/15/18 08:15 Chlorhexidine Gluconate (Romy-Hex 2%) 1 applic DAILY@2000 TOPIC 05/14/18 20:00 06/13/18 19:59 05/14/18 20:53 Clindamycin HCl/ Dextrose 50 ml @ 100 mls/hr Q8HR IV 05/13/18 22:00 05/19/18 21:59 05/15/18 14:22 Clopidogrel Bisulfate (Plavix) 75 mg DAILY ORAL 05/15/18 09:00 06/14/18 08:59 05/15/18 08:43 Dextrose (Dextrose 50%) 25 ml Q30M PRN IV Hypoglycemia 05/13/18 21:00 06/11/18 16:59 Dextrose (Dextrose 50%) 50 ml Q30M PRN IV Hypoglycemia 05/13/18 21:00 06/11/18 16:59 Dextrose/Sodium Chloride 1,000 ml @ 100 mls/hr Q10H IV 05/14/18 13:06 06/12/18 13:05 05/15/18 09:00 Dobutamine HCl 250 ml @ 43.001 mls/ hr Q24H IV 05/15/18 14:15 06/14/18 14:14 05/15/18 14:31 Enoxaparin Sodium (Lovenox) 100 mg Q24H SUBQ 05/14/18 14:00 06/12/18 13:59 05/15/18 14:24 Fentanyl Citrate 2500 mcg/Dextrose 250 ml @ 0 mls/hr Q24H IV 05/14/18 21:30 05/21/18 21:29 05/14/18 21:40 Heparin Sodium/ Sodium Chloride (Heparin 2000 units/Ns 1000ml premix) 2,000 unit ONCE PRN INJ PICC PLACEMENT 05/14/18 01:30 05/15/18 23:59 Insulin Aspart (NovoLOG) BEFORE MEALS AND HS SUBQ 05/13/18 21:00 06/11/18 20:59 05/15/18 05:53 Lactulose (Cephulac) 30 gm Q8HR NG 05/14/18 14:00 06/12/18 17:59 05/15/18 14:23 Lidocaine HCl (Xylocaine 1% 30ml) 30 ml ONCE PRN INJ FOR PICC PLACEMENT 05/14/18 01:30 05/15/18 23:59 Lorazepam (Ativan 2mg/ml 1ml) 2 mg Q4H PRN IV For Anxiety 05/14/18 12:00 05/21/18 11:59 05/14/18 16:38 Nitroglycerin (Ntg) 1 patch Q24H TDERMAL 05/15/18 09:00 06/14/18 08:59 05/15/18 10:21 Pantoprazole (Protonix) 40 mg EVERY 12 HOURS IVP 05/14/18 21:00 06/13/18 20:59 05/15/18 08:43 Rifaximin (Xifaxan) 550 mg EVERY 12 HOURS ORAL 05/13/18 21:00 05/20/18 20:59 05/15/18 08:53 Sodium Chloride 500 ml @ 999 mls/hr Q31M PRN IV For hypotension 05/14/18 01:30 06/13/18 01:29 05/14/18 06:10 Juice Wilkerson M.D. May 15, 2018 15:13
--- NOTE | 2018-05-15 16:13 | NUR ---
NURSE NOTES: Called and left a message for Dr Erickson regarding low BP SBP 70's and MAP 40's. Awaiting call back.
--- NOTE | 2018-05-15 16:16 | Podiatric Progress Note ---
Assessment/Plan Patient Lilienzo Alcantar is a 67 year old female who was admitted on May 12, 2018 at 14:05 with Problems: (1) Cellulitis of both lower extremities (2) ARF (acute renal failure) (3) Venous stasis ulcers of both lower extremities (4) DM (diabetes mellitus) (5) Bilateral lower leg cellulitis (6) Pulmonary edema (7) Edema Assessment/Plan wound to be followed by Dr. Carmen Continue local wound care continue application of Betadine she will be followed. Subjective Allergies: Coded Allergies: ASPIRIN (Verified Allergy, Intermediate, Hives, 01/06/13) PENICILLINS (Verified Allergy, Intermediate, Hives, 01/06/13) Subjective f/u R leg ischemia and blister. Patient has been transferred to ICU and has been intubated. Objective Exam Last 24 Hour Vital Signs Date Time Temp Pulse Resp B/P (MAP) Pulse Ox O2 Delivery O2 Flow Rate FiO2 05/15/18 15:15 97.6 112 18 160/67 (98) 93 05/15/18 15:00 91 18 60 05/15/18 15:00 108 18 167/85 (112) 92 05/15/18 14:45 112 18 158/87 (110) 92 05/15/18 14:31 94/70 05/15/18 14:30 103 19 135/66 (89) 94 05/15/18 14:30 60 05/15/18 14:23 60 05/15/18 14:00 98 18 110/62 (78) 97 05/15/18 13:30 95 16 109/60 (76) 98 05/15/18 13:00 96 22 108/58 (75) 94 05/15/18 12:51 96 20 80 05/15/18 12:30 96 17 91/66 (74) 94 05/15/18 12:15 90 17 139/66 (90) 97 05/15/18 12:00 Mechanical Ventilator 05/15/18 12:00 80 18 112/64 (80) 98 05/15/18 12:00 80 05/15/18 12:00 18 Mechanical Ventilator 80 05/15/18 12:00 139/66 05/15/18 11:50 80 05/15/18 11:30 70 18 73/44 (54) 99 05/15/18 11:00 74 18 75/48 (57) 97 05/15/18 11:00 18 80 05/15/18 11:00 68/49 05/15/18 10:43 96 18 80 05/15/18 10:30 91 18 150/61 (90) 97 05/15/18 10:21 125/68 05/15/18 10:00 89 18 129/73 (91) 96 05/15/18 10:00 18 80 05/15/18 10:00 135/51 05/15/18 09:30 86 18 125/67 (86) 96 05/15/18 09:00 96 17 133/62 (85) 96 05/15/18 09:00 18 80 05/15/18 09:00 125/67 05/15/18 08:57 88 18 80 05/15/18 08:42 133/62 05/15/18 08:30 89 18 133/62 (85) 96 05/15/18 08:00 Mechanical Ventilator 05/15/18 08:00 17 Mechanical Ventilator 80 05/15/18 08:00 97.7 91 18 135/68 (90) 97 05/15/18 07:30 92 17 133/68 (89) 96 05/15/18 07:26 91 18 80 05/15/18 07:00 17 Mechanical Ventilator 80 05/15/18 07:00 133/68 05/15/18 07:00 85 18 136/64 (88) 97 05/15/18 06:30 87 17 127/64 (85) 96 05/15/18 06:00 87 18 119/60 (79) 96 05/15/18 06:00 18 Mechanical Ventilator 80 05/15/18 06:00 119/60 05/15/18 05:30 90 15 117/59 (78) 96 05/15/18 05:27 90 18 80 05/15/18 05:00 18 Mechanical Ventilator 80 05/15/18 05:00 138/72 05/15/18 05:00 93 18 138/72 (94) 96 05/15/18 04:30 96 16 142/56 (84) 96 05/15/18 04:03 75 05/15/18 04:03 80 05/15/18 04:02 Mechanical Ventilator 05/15/18 04:00 98.7 87 18 135/60 (85) 97 05/15/18 04:00 135/60 05/15/18 03:30 93 18 137/58 (84) 96 05/15/18 03:11 85 18 80 05/15/18 03:00 18 Mechanical Ventilator 80 05/15/18 03:00 125/67 05/15/18 03:00 94 18 125/67 (86) 97 05/15/18 02:30 89 18 130/66 (87) 97 05/15/18 02:17 140/66 05/15/18 02:00 18 Mechanical Ventilator 80 05/15/18 02:00 140/66 05/15/18 02:00 94 17 140/66 (90) 96 05/15/18 01:30 72 16 87/46 (60) 95 05/15/18 01:07 88 18 80 05/15/18 01:00 18 Mechanical Ventilator 80 05/15/18 01:00 134/70 05/15/18 01:00 94/36 (55) 05/15/18 00:30 76 18 134/70 (91) 97 05/15/18 00:07 72 05/15/18 00:07 80 05/15/18 00:06 Mechanical Ventilator 05/15/18 00:00 18 Mechanical Ventilator 80 05/15/18 00:00 127/62 05/15/18 00:00 100.0 77 18 127/62 (83) 96 05/14/18 23:30 76 18 130/61 (84) 96 05/14/18 23:00 80 18 80 05/14/18 23:00 75 18 127/66 (86) 97 05/14/18 23:00 18 Mechanical Ventilator 80 05/14/18 23:00 127/66 05/14/18 22:30 72 18 113/58 (76) 96 05/14/18 22:00 66 18 96/53 (67) 96 05/14/18 22:00 18 Mechanical Ventilator 80 05/14/18 22:00 96/53 05/14/18 21:40 18 Mechanical Ventilator 80 05/14/18 21:30 68 18 94/56 (69) 96 05/14/18 21:06 82 18 80 05/14/18 21:00 94/56 05/14/18 21:00 93 17 184/81 (115) 97 1/18/19 20:30 76 18 161/76 (104) 97 05/14/18 20:00 76 05/14/18 20:00 80 05/14/18 20:00 Mechanical Ventilator 05/14/18 20:00 147/69 05/14/18 20:00 76 18 147/69 (95) 97 05/14/18 19:31 120/63 05/14/18 19:30 99.3 77 18 131/77 (95) 97 05/14/18 19:15 76 18 120/63 (82) 97 05/14/18 19:00 76 17 137/63 (87) 97 05/14/18 18:52 76 18 80 05/14/18 18:00 125/58 05/14/18 18:00 74 18 125/58 (80) 100 05/14/18 17:00 84 16 150/65 (93) 100 05/14/18 17:00 150/65 05/14/18 16:42 78 18 100 05/14/18 16:30 79 18 137/91 (106) 100 Laboratory Tests Test 05/14/18 18:30 05/14/18 19:53 05/15/18 06:23 05/15/18 08:30 Troponin I 0.472 ng/mL (0.000-0.056) 0.414 ng/mL (0.000-0.056) Arterial Blood pH 7.477 (7.350-7.450) Arterial Blood Partial Pressure CO2 36.6 mmHg (35.0-45.0) Arterial Blood Partial Pressure O2 64.8 mmHg (75.0-100.0) L Arterial Blood HCO3 26.5 mmol/L (22.0-26.0) H Arterial Blood Oxygen Saturation 92.2 % (95-100) L Arterial Blood Base Excess 3.0 (-2-2) H Aditya Test Positive White Blood Count 9.7 K/UL (4.8-10.8) Red Blood Count 4.79 M/UL (4.20-5.40) Hemoglobin 11.8 G/DL (12.0-16.0) L Hematocrit 38.9 % (37.0-47.0) Mean Corpuscular Volume 81 FL (80-99) Mean Corpuscular Hemoglobin 24.7 PG (27.0-31.0) L Mean Corpuscular Hemoglobin Concent 30.5 G/DL (32.0-36.0) L Red Cell Distribution Width 18.2 % (11.6-14.8) H Platelet Count 175 K/UL (150-450) Mean Platelet Volume 7.9 FL (6.5-10.1) Neutrophils (%) (Auto) % (45.0-75.0) Lymphocytes (%) (Auto) % (20.0-45.0) Monocytes (%) (Auto) % (1.0-10.0) Eosinophils (%) (Auto) % (0.0-3.0) Basophils (%) (Auto) % (0.0-2.0) Differential Total Cells Counted 100 Neutrophils % (Manual) 85 % (45-75) H Lymphocytes % (Manual) 6 % (20-45) L Monocytes % (Manual) 9 % (1-10) Eosinophils % (Manual) 0 % (0-3) Basophils % (Manual) 0 % (0-2) Band Neutrophils 0 % (0-8) Platelet Estimate Adequate Platelet Morphology Normal Polychromasia 2+ Hypochromasia 2+ Anisocytosis 2+ Microcytosis 1+ Ovalocytes 1+ Sodium Level 145 MMOL/L (136-145) Potassium Level 3.0 MMOL/L (3.5-5.1) L Chloride Level 109 MMOL/L (98-107) H Carbon Dioxide Level 29 MMOL/L (21-32) Anion Gap 7 mmol/L (5-15) Blood Urea Nitrogen 50 mg/dL (7-18) H Creatinine 3.1 MG/DL (0.55-1.30) H Estimat Glomerular Filtration Rate 18.3 mL/min (>60) Glucose Level 121 MG/DL (74-106) H Hemoglobin A1c 6.6 % (4.3-6.0) H Uric Acid 12.6 MG/DL (2.6-7.2) H Calcium Level 8.3 MG/DL (8.5-10.1) L Phosphorus Level 4.4 MG/DL (2.5-4.9) Magnesium Level 2.0 MG/DL (1.8-2.4) Total Bilirubin 3.2 MG/DL (0.2-1.0) H Direct Bilirubin 2.3 MG/DL (0.0-0.3) H Gamma Glutamyl Transpeptidase 146 U/L (5-85) H Aspartate Amino Transf (AST/SGOT) 135 U/L (15-37) H Alanine Aminotransferase (ALT/SGPT) 70 U/L (12-78) Alkaline Phosphatase 210 U/L (46-116) H Ammonia 83 umol/L (11-32) H Total Creatine Kinase 109 U/L (26-308) C-Reactive Protein, Quantitative 6.9 mg/dL (0.00-0.90) H Pro-B-Type Natriuretic Peptide 1978 pg/mL (0-125) H Total Protein 6.5 G/DL (6.4-8.2) Albumin 2.6 G/DL (3.4-5.0) L Globulin 3.9 g/dL Albumin/Globulin Ratio 0.7 (1.0-2.7) L Triglycerides Level 79 MG/DL (30-150) Cholesterol Level 80 MG/DL (< 200) LDL Cholesterol 46 mg/dL (<100) HDL Cholesterol 24 MG/DL (40-60) L Cholesterol/HDL Ratio 3.3 (3.3-4.4) Cortisol AM Sample Pending Urine Eosinophils None seen (NONE SEEN) Test 05/15/18 08:50 Arterial Blood pH 7.387 (7.350-7.450) Arterial Blood Partial Pressure CO2 40.8 mmHg (35.0-45.0) Arterial Blood Partial Pressure O2 96.4 mmHg (75.0-100.0) Arterial Blood HCO3 24.0 mmol/L (22.0-26.0) Arterial Blood Oxygen Saturation 96.9 % (95-100) Arterial Blood Base Excess -1.0 (-2-2) Aditya Test Positive Microbiology Date/Time Source Procedure Growth Status 05/12/18 14:30 Blood Blood Culture - Preliminary NO GROWTH AFTER 48 HOURS Resulted 05/12/18 17:00 Nasal Nares MRSA Culture - Final NO METHICILLIN RESISTANT STAPH AUREUS... Complete 05/13/18 08:45 Urine,Clean Catch Urine Culture - Final NO GROWTH AFTER 48 HOURS Complete 05/12/18 18:20 Leg Right Gram Stain - Final Resulted 05/12/18 18:20 Leg Right Wound Culture - Preliminary Resulted Dermatological Dermatological Narrative R leg is noted to be warmer to touch compare to previous visits. Dusky skin is normalizing to b/l feet. R toe blister is present no sign of pus or discharge noted. Lawrence Barrera DPM May 15, 2018 16:16
[2018-05-15] MEDS: ceFAZolin 2gm/50ml Premix 50 ML IVPB SCH (16:39)
--- NOTE | 2018-05-15 17:22 | Cardiology Progress Note ---
Assessment/Plan Assessment/Plan 1. Dyspnea most likely secondary to acute hypoxic hypercarbic respiratory failure. 2D echocardiography shows normal LV systolic function with a normal intracardiac filling pressures. 2. Right heart failure, pre-load sensitive, avoid aggressive diuretic use, evidence of RA and RV dilatation and severe RV systolic dysfunction, associated pulmonayr HTN, ? type. 3. Paroxysmal atrial fibrillation, currently sinus rhythm, continue with amiodarone and Eliquis. 4. Hypotension likely due to RV failure, digoxin may help, grim prognosis. 5. Slight elevation of troponin I level in this patient could be due to RV strain/failure or due to type 2 non-ST elevation myocardial infarction. Subjective Subjective Sinus rhythm at rate of 79. Intubated. Dopamine gtt stopped on dobutamine gtt with no response. Objective Last 24 Hour Vital Signs Date Time Temp Pulse Resp B/P (MAP) Pulse Ox O2 Delivery O2 Flow Rate FiO2 05/15/18 17:10 79 18 60 05/15/18 16:00 86 19 73/39 (50) 95 05/15/18 16:00 Mechanical Ventilator 05/15/18 15:38 81 05/15/18 15:30 101 21 90/45 (60) 92 05/15/18 15:15 97.6 112 18 160/67 (98) 93 05/15/18 15:00 91 18 60 05/15/18 15:00 108 18 167/85 (112) 92 05/15/18 14:45 112 18 158/87 (110) 92 05/15/18 14:31 94/70 05/15/18 14:30 103 19 135/66 (89) 94 05/15/18 14:30 60 05/15/18 14:23 60 05/15/18 14:00 98 18 110/62 (78) 97 05/15/18 13:30 95 16 109/60 (76) 98 05/15/18 13:00 96 22 108/58 (75) 94 05/15/18 12:51 96 20 80 05/15/18 12:30 96 17 91/66 (74) 94 05/15/18 12:15 90 17 139/66 (90) 97 05/15/18 12:00 Mechanical Ventilator 05/15/18 12:00 80 18 112/64 (80) 98 05/15/18 12:00 80 05/15/18 12:00 18 Mechanical Ventilator 80 05/15/18 12:00 139/66 05/15/18 11:50 80 05/15/18 11:50 75 05/15/18 11:30 70 18 73/44 (54) 99 05/15/18 11:00 74 18 75/48 (57) 97 05/15/18 11:00 18 80 05/15/18 11:00 68/49 05/15/18 10:43 96 18 80 05/15/18 10:30 91 18 150/61 (90) 97 05/15/18 10:21 125/68 05/15/18 10:00 89 18 129/73 (91) 96 05/15/18 10:00 18 80 05/15/18 10:00 135/51 05/15/18 09:30 86 18 125/67 (86) 96 05/15/18 09:00 96 17 133/62 (85) 96 05/15/18 09:00 18 80 05/15/18 09:00 125/67 05/15/18 08:57 88 18 80 05/15/18 08:42 133/62 05/15/18 08:30 89 18 133/62 (85) 96 05/15/18 08:00 Mechanical Ventilator 05/15/18 08:00 17 Mechanical Ventilator 80 05/15/18 08:00 97.7 91 18 135/68 (90) 97 05/15/18 07:42 90 05/15/18 07:30 92 17 133/68 (89) 96 05/15/18 07:26 91 18 80 05/15/18 07:00 17 Mechanical Ventilator 80 05/15/18 07:00 133/68 05/15/18 07:00 85 18 136/64 (88) 97 05/15/18 06:30 87 17 127/64 (85) 96 05/15/18 06:00 87 18 119/60 (79) 96 05/15/18 06:00 18 Mechanical Ventilator 80 05/15/18 06:00 119/60 05/15/18 05:30 90 15 117/59 (78) 96 05/15/18 05:27 90 18 80 05/15/18 05:00 18 Mechanical Ventilator 80 05/15/18 05:00 138/72 05/15/18 05:00 93 18 138/72 (94) 96 05/15/18 04:30 96 16 142/56 (84) 96 05/15/18 04:03 75 05/15/18 04:03 80 05/15/18 04:02 Mechanical Ventilator 05/15/18 04:00 98.7 87 18 135/60 (85) 97 05/15/18 04:00 135/60 05/15/18 03:30 93 18 137/58 (84) 96 05/15/18 03:11 85 18 80 05/15/18 03:00 18 Mechanical Ventilator 80 05/15/18 03:00 125/67 05/15/18 03:00 94 18 125/67 (86) 97 05/15/18 02:30 89 18 130/66 (87) 97 05/15/18 02:17 140/66 05/15/18 02:00 18 Mechanical Ventilator 80 05/15/18 02:00 140/66 05/15/18 02:00 94 17 140/66 (90) 96 05/15/18 01:30 72 16 87/46 (60) 95 05/15/18 01:07 88 18 80 05/15/18 01:00 18 Mechanical Ventilator 80 05/15/18 01:00 134/70 05/15/18 01:00 94/36 (55) 05/15/18 00:30 76 18 134/70 (91) 97 05/15/18 00:07 72 05/15/18 00:07 80 05/15/18 00:06 Mechanical Ventilator 05/15/18 00:00 18 Mechanical Ventilator 80 05/15/18 00:00 127/62 05/15/18 00:00 100.0 77 18 127/62 (83) 96 05/14/18 23:30 76 18 130/61 (84) 96 05/14/18 23:00 80 18 80 05/14/18 23:00 75 18 127/66 (86) 97 05/14/18 23:00 18 Mechanical Ventilator 80 05/14/18 23:00 127/66 05/14/18 22:30 72 18 113/58 (76) 96 05/14/18 22:00 66 18 96/53 (67) 96 05/14/18 22:00 18 Mechanical Ventilator 80 05/14/18 22:00 96/53 05/14/18 21:40 18 Mechanical Ventilator 80 05/14/18 21:30 68 18 94/56 (69) 96 05/14/18 21:06 82 18 80 05/14/18 21:00 94/56 05/14/18 21:00 93 17 184/81 (115) 97 05/14/18 20:30 76 18 161/76 (104) 97 05/14/18 20:00 76 05/14/18 20:00 80 05/14/18 20:00 Mechanical Ventilator 05/14/18 20:00 147/69 05/14/18 20:00 76 18 147/69 (95) 97 05/14/18 19:31 120/63 05/14/18 19:30 99.3 77 18 131/77 (95) 97 05/14/18 19:15 76 18 120/63 (82) 97 05/14/18 19:00 76 17 137/63 (87) 97 05/14/18 18:52 76 18 80 05/14/18 18:00 125/58 05/14/18 18:00 74 18 125/58 (80) 100 Intake and Output 05/14/18 05/15/18 18:59 06:59 Intake Total 1677.625 ml 1613.8 ml Output Total 640 ml 1095 ml Balance 1037.625 ml 518.8 ml Intake Oral 0 ml 0 ml IV Total 1677.625 ml 1493.8 ml Other 120 ml Output Urine Total 640 ml 1095 ml # Bowel Movements 2 2D Echo: LVEF 55%, D-shaped septum due to RV pressure overload, Massive RA/RV size. Laboratory Tests Test 05/14/18 18:30 05/14/18 19:53 05/15/18 06:23 05/15/18 08:30 Troponin I 0.472 ng/mL (0.000-0.056) 0.414 ng/mL (0.000-0.056) Arterial Blood pH 7.477 (7.350-7.450) Arterial Blood Partial Pressure CO2 36.6 mmHg (35.0-45.0) Arterial Blood Partial Pressure O2 64.8 mmHg (75.0-100.0) L Arterial Blood HCO3 26.5 mmol/L (22.0-26.0) H Arterial Blood Oxygen Saturation 92.2 % (95-100) L Arterial Blood Base Excess 3.0 (-2-2) H Aditya Test Positive White Blood Count 9.7 K/UL (4.8-10.8) Red Blood Count 4.79 M/UL (4.20-5.40) Hemoglobin 11.8 G/DL (12.0-16.0) L Hematocrit 38.9 % (37.0-47.0) Mean Corpuscular Volume 81 FL (80-99) Mean Corpuscular Hemoglobin 24.7 PG (27.0-31.0) L Mean Corpuscular Hemoglobin Concent 30.5 G/DL (32.0-36.0) L Red Cell Distribution Width 18.2 % (11.6-14.8) H Platelet Count 175 K/UL (150-450) Mean Platelet Volume 7.9 FL (6.5-10.1) Neutrophils (%) (Auto) % (45.0-75.0) Lymphocytes (%) (Auto) % (20.0-45.0) Monocytes (%) (Auto) % (1.0-10.0) Eosinophils (%) (Auto) % (0.0-3.0) Basophils (%) (Auto) % (0.0-2.0) Differential Total Cells Counted 100 Neutrophils % (Manual) 85 % (45-75) H Lymphocytes % (Manual) 6 % (20-45) L Monocytes % (Manual) 9 % (1-10) Eosinophils % (Manual) 0 % (0-3) Basophils % (Manual) 0 % (0-2) Band Neutrophils 0 % (0-8) Platelet Estimate Adequate Platelet Morphology Normal Polychromasia 2+ Hypochromasia 2+ Anisocytosis 2+ Microcytosis 1+ Ovalocytes 1+ Sodium Level 145 MMOL/L (136-145) Potassium Level 3.0 MMOL/L (3.5-5.1) L Chloride Level 109 MMOL/L (98-107) H Carbon Dioxide Level 29 MMOL/L (21-32) Anion Gap 7 mmol/L (5-15) Blood Urea Nitrogen 50 mg/dL (7-18) H Creatinine 3.1 MG/DL (0.55-1.30) H Estimat Glomerular Filtration Rate 18.3 mL/min (>60) Glucose Level 121 MG/DL (74-106) H Hemoglobin A1c 6.6 % (4.3-6.0) H Uric Acid 12.6 MG/DL (2.6-7.2) H Calcium Level 8.3 MG/DL (8.5-10.1) L Phosphorus Level 4.4 MG/DL (2.5-4.9) Magnesium Level 2.0 MG/DL (1.8-2.4) Total Bilirubin 3.2 MG/DL (0.2-1.0) H Direct Bilirubin 2.3 MG/DL (0.0-0.3) H Gamma Glutamyl Transpeptidase 146 U/L (5-85) H Aspartate Amino Transf (AST/SGOT) 135 U/L (15-37) H Alanine Aminotransferase (ALT/SGPT) 70 U/L (12-78) Alkaline Phosphatase 210 U/L (46-116) H Ammonia 83 umol/L (11-32) H Total Creatine Kinase 109 U/L (26-308) C-Reactive Protein, Quantitative 6.9 mg/dL (0.00-0.90) H Pro-B-Type Natriuretic Peptide 1978 pg/mL (0-125) H Total Protein 6.5 G/DL (6.4-8.2) Albumin 2.6 G/DL (3.4-5.0) L Globulin 3.9 g/dL Albumin/Globulin Ratio 0.7 (1.0-2.7) L Triglycerides Level 79 MG/DL (30-150) Cholesterol Level 80 MG/DL (< 200) LDL Cholesterol 46 mg/dL (<100) HDL Cholesterol 24 MG/DL (40-60) L Cholesterol/HDL Ratio 3.3 (3.3-4.4) Cortisol AM Sample Pending Urine Eosinophils None seen (NONE SEEN) Test 05/15/18 08:50 Arterial Blood pH 7.387 (7.350-7.450) Arterial Blood Partial Pressure CO2 40.8 mmHg (35.0-45.0) Arterial Blood Partial Pressure O2 96.4 mmHg (75.0-100.0) Arterial Blood HCO3 24.0 mmol/L (22.0-26.0) Arterial Blood Oxygen Saturation 96.9 % (95-100) Arterial Blood Base Excess -1.0 (-2-2) Aditya Test Positive Microbiology Date/Time Source Procedure Growth Status 05/13/18 08:45 Urine,Clean Catch Urine Culture - Final NO GROWTH AFTER 48 HOURS Complete 05/12/18 18:20 Leg Right Gram Stain - Final Resulted 05/12/18 18:20 Leg Right Wound Culture - Preliminary Resulted 05/12/18 18:20 Leg Left Gram Stain - Final Resulted 05/12/18 18:20 Leg Left Wound Culture - Preliminary Resulted Objective HEENT: Atraumatic and normocephalic. Anicteric. Pupils are equal, round, and reactive to light and accommodation. Extraocular muscles intact. NECK: Cannot be assessed due to positive inspiratory pressure. No carotid bruit. Carotid upstroke is 2+ bilaterally. CVS: Normal S1 and S2. Regular rate and rhythm. No murmurs, gallops, or rubs. LUNGS: Diminished breath sounds in both lungs with rhonchi bilaterally. ABDOMEN: Soft, nontender, and nondistended. No hepatosplenomegaly. Positive bowel sounds. EXTREMITIES: No evidence of edema, clubbing, or cyanosis. There is venous stasis of lower extremities with associated ulceration. Justice Erickson MD May 15, 2018 17:22
--- NOTE | 2018-05-15 17:58 | Pulmonolgy Critical Care Note ---
Critical Care - Asmt/Plan Assessment/Plan: Pulmonary Progress Note Critical Care - Asmt/Plan Assessment/Plan: 67 y/o female w/ DM, CKD, morbid obesity admitted with b/l LE cellulitis and altered mental status. Problem List: 1. Altered mental status 2. Acute hypercapnic respiratory failure 3. Bilateral lower extremity cellulitis 4. RACHELLE on CKD 5. DM 6. Morbid obesity 7. Elevated ammonia level Plan: -Continue mechanical ventilation -Continue pressors -Monitor blood pressures, lactate -f/u CXR, adjust ETT -NG/OT tube, can then get lactulose, monitor ammonia level -monitor renal function, BMP pending -Abx per ID -f/u cultures -monitor cellulitis Case d/w nephrology and AUTHORIZATION COORDINATORwanigan clerk: Continue pressors, continue to monitor HR/BP Renal: check electrolytes Infectious Disease: continue antibiotics Neurologic: keep patient comfortable Prophylaxis: Heparin Disposition: keep in ICU Time Spent (Minutes): other - 45 minutes Critical Care - Objective Vital Signs Noted Status: sedated on ventilator Condition: critical HEENT: atraumatic, normocephalic Lungs: rales Heart: HR/BP unstable Abdomen: soft, non-tender Extremities: other - Edema with erythema and open ulcers/sores Decubiti: none Micro: Microbiology Date/Time Source Procedure Growth Status 05/12/18 14:30 Blood Blood Culture - Preliminary NO GROWTH AFTER 24 HOURS Resulted 05/12/18 14:15 Blood Blood Culture - Preliminary NO GROWTH AFTER 24 HOURS Resulted 05/13/18 08:45 Urine,Clean Catch Urine Culture - Preliminary NO GROWTH AFTER 24 HOURS Resulted 05/12/18 18:20 Leg Right Gram Stain - Final Resulted 05/12/18 18:20 Leg Right Wound Culture Pending Resulted 05/12/18 18:20 Leg Left Gram Stain - Final Resulted 05/12/18 18:20 Leg Left Wound Culture Pending Resulted 05/12/18 17:00 Rectum VRE Culture - Final NO VANCOMYCIN RESISTANT ENTEROCOCCUS ... Complete 05/12/18 17:00 Rectum - Final NO CARBAPENEM-RESISTANT ENTEROBACTERI... Complete Critical Care - Subjective ROS Limited/Unobtainable: Yes ICU Day: 2 Interval Events: Worsening CO2 retention despite increasing BiPAP and increased lethargy. Now mostly unresponsive. BP has been low but stable MAP 60. No fevers. Ammonia higher today. Condition: critical EKG Rhythm: Sinus Bradycardia FI02: 60 Sputum Amount: None Time of note does not reflect time patient seen Critical Care - Objective Last 24 Hour Vital Signs Date Time Temp Pulse Resp B/P (MAP) Pulse Ox O2 Delivery O2 Flow Rate FiO2 05/15/18 17:10 79 18 60 05/15/18 17:00 89 21 74/46 (55) 97 05/15/18 16:30 84 21 70/45 (53) 97 05/15/18 16:00 86 19 73/39 (50) 95 05/15/18 16:00 Mechanical Ventilator 05/15/18 15:38 81 05/15/18 15:30 101 21 90/45 (60) 92 05/15/18 15:15 97.6 112 18 160/67 (98) 93 05/15/18 15:00 91 18 60 05/15/18 15:00 108 18 167/85 (112) 92 05/15/18 14:45 112 18 158/87 (110) 92 05/15/18 14:31 94/70 05/15/18 14:30 103 19 135/66 (89) 94 05/15/18 14:30 60 05/15/18 14:23 60 05/15/18 14:00 98 18 110/62 (78) 97 05/15/18 13:30 95 16 109/60 (76) 98 05/15/18 13:00 96 22 108/58 (75) 94 05/15/18 12:51 96 20 80 05/15/18 12:30 96 17 91/66 (74) 94 05/15/18 12:15 90 17 139/66 (90) 97 05/15/18 12:00 Mechanical Ventilator 05/15/18 12:00 80 18 112/64 (80) 98 05/15/18 12:00 80 05/15/18 12:00 18 Mechanical Ventilator 80 05/15/18 12:00 139/66 05/15/18 11:50 80 05/15/18 11:50 75 05/15/18 11:30 70 18 73/44 (54) 99 05/15/18 11:00 74 18 75/48 (57) 97 05/15/18 11:00 18 80 05/15/18 11:00 68/49 05/15/18 10:43 96 18 80 05/15/18 10:30 91 18 150/61 (90) 97 05/15/18 10:21 125/68 05/15/18 10:00 89 18 129/73 (91) 96 05/15/18 10:00 18 80 05/15/18 10:00 135/51 05/15/18 09:30 86 18 125/67 (86) 96 05/15/18 09:00 96 17 133/62 (85) 96 05/15/18 09:00 18 80 05/15/18 09:00 125/67 05/15/18 08:57 88 18 80 05/15/18 08:42 133/62 05/15/18 08:30 89 18 133/62 (85) 96 05/15/18 08:00 Mechanical Ventilator 05/15/18 08:00 17 Mechanical Ventilator 80 05/15/18 08:00 97.7 91 18 135/68 (90) 97 05/15/18 07:42 90 05/15/18 07:30 92 17 133/68 (89) 96 05/15/18 07:26 91 18 80 05/15/18 07:00 17 Mechanical Ventilator 80 05/15/18 07:00 133/68 05/15/18 07:00 85 18 136/64 (88) 97 05/15/18 06:30 87 17 127/64 (85) 96 05/15/18 06:00 87 18 119/60 (79) 96 05/15/18 06:00 18 Mechanical Ventilator 80 05/15/18 06:00 119/60 05/15/18 05:30 90 15 117/59 (78) 96 05/15/18 05:27 90 18 80 05/15/18 05:00 18 Mechanical Ventilator 80 05/15/18 05:00 138/72 05/15/18 05:00 93 18 138/72 (94) 96 05/15/18 04:30 96 16 142/56 (84) 96 05/15/18 04:03 75 05/15/18 04:03 80 05/15/18 04:02 Mechanical Ventilator 05/15/18 04:00 98.7 87 18 135/60 (85) 97 05/15/18 04:00 135/60 05/15/18 03:30 93 18 137/58 (84) 96 1/19/19 03:11 85 18 80 05/15/18 03:00 18 Mechanical Ventilator 80 05/15/18 03:00 125/67 05/15/18 03:00 94 18 125/67 (86) 97 05/15/18 02:30 89 18 130/66 (87) 97 05/15/18 02:17 140/66 05/15/18 02:00 18 Mechanical Ventilator 80 05/15/18 02:00 140/66 05/15/18 02:00 94 17 140/66 (90) 96 05/15/18 01:30 72 16 87/46 (60) 95 05/15/18 01:07 88 18 80 05/15/18 01:00 18 Mechanical Ventilator 80 05/15/18 01:00 134/70 05/15/18 01:00 94/36 (55) 05/15/18 00:30 76 18 134/70 (91) 97 05/15/18 00:07 72 05/15/18 00:07 80 05/15/18 00:06 Mechanical Ventilator 05/15/18 00:00 18 Mechanical Ventilator 80 05/15/18 00:00 127/62 05/15/18 00:00 100.0 77 18 127/62 (83) 96 05/14/18 23:30 76 18 130/61 (84) 96 05/14/18 23:00 80 18 80 05/14/18 23:00 75 18 127/66 (86) 97 05/14/18 23:00 18 Mechanical Ventilator 80 05/14/18 23:00 127/66 05/14/18 22:30 72 18 113/58 (76) 96 05/14/18 22:00 66 18 96/53 (67) 96 05/14/18 22:00 18 Mechanical Ventilator 80 05/14/18 22:00 96/53 05/14/18 21:40 18 Mechanical Ventilator 80 05/14/18 21:30 68 18 94/56 (69) 96 05/14/18 21:06 82 18 80 05/14/18 21:00 94/56 05/14/18 21:00 93 17 184/81 (115) 97 05/14/18 20:30 76 18 161/76 (104) 97 05/14/18 20:00 76 05/14/18 20:00 80 1/18/19 20:00 Mechanical Ventilator 05/14/18 20:00 147/69 05/14/18 20:00 76 18 147/69 (95) 97 05/14/18 19:31 120/63 05/14/18 19:30 99.3 77 18 131/77 (95) 97 05/14/18 19:15 76 18 120/63 (82) 97 05/14/18 19:00 76 17 137/63 (87) 97 05/14/18 18:52 76 18 80 05/14/18 18:00 125/58 05/14/18 18:00 74 18 125/58 (80) 100 Micro: Microbiology Date/Time Source Procedure Growth Status 05/13/18 08:45 Urine,Clean Catch Urine Culture - Final NO GROWTH AFTER 48 HOURS Complete 05/12/18 18:20 Leg Right Gram Stain - Final Resulted 05/12/18 18:20 Leg Right Wound Culture - Preliminary Resulted 05/12/18 18:20 Leg Left Gram Stain - Final Resulted 05/12/18 18:20 Leg Left Wound Culture - Preliminary Resulted Accucheck: 117 Critical Care - Subjective ROS Limited/Unobtainable: Yes Condition: critical IV Access: PICC FI02: 60 Vent Support Breath Rate: 18 Vent Support Mode: AC Vent Tidal Volume: 550 Sputum Amount: Scant PEEP: 5.0 PIP: 30 I&O: Intake and Output 05/14/18 05/15/18 18:59 06:59 Intake Total 1677.625 ml 1613.8 ml Output Total 640 ml 1095 ml Balance 1037.625 ml 518.8 ml Intake Oral 0 ml 0 ml IV Total 1677.625 ml 1493.8 ml Other 120 ml Output Urine Total 640 ml 1095 ml # Bowel Movements 2 ET-Tube: 7.5 ET Position: 26 Lawrence Wills MD May 15, 2018 17:58
--- NOTE | 2018-05-15 18:56 | NUR ---
NURSE NOTES: Mr Erickson here to see the patient. Notified him again with low BP with MAP in 60's. Order to change from Dobutamine to Dopamine received, noted, and carried out.
--- NOTE | 2018-05-15 19:19 | General Progress Note ---
Assessment/Plan Assessment/Plan Assessment/Plan (1) DM (diabetes mellitus) ICD Codes: E11.9 - DM (diabetes mellitus) SNOMED: 24578881 (2) Intractable abdominal pain ICD Codes: R10.9 - Unspecified abdominal pain SNOMED: 20931801 (3) Elevated transaminase level / Jaundice ICD Codes: R74.0 - Nonspecific elevation of levels of transaminase and lactic acid dehydrogenase [LDH] SNOMED: 781784994 (4) Abdominal distension ICD Codes: R14.0 - Abdominal distension (gaseous) SNOMED: 40210269 (5) Liver disease ICD Codes: K76.9 - Liver disease, unspecified SNOMED: 676274318 (6) Acute encephalopathy ICD Codes: G93.40 - Encephalopathy, unspecified SNOMED: 83024259, 934648778 (7) Hepatic encephalopathy ICD Codes: K72.90 - Hepatic failure, unspecified without coma Assessment/Plan maintain NPO + IVFs cont lactulose, add Xifaxan Wean off of sedatives and narcotics abdominal US ordered anemia work up OB stool r/o GI bleed monitor H&H, prn transfusions bowel regime ppi fu labs, hepatitis panel will consider endoscopy pending work up, but will require cardiac clearance given elevated troponin levels. Subjective Allergies: Coded Allergies: ASPIRIN (Verified Allergy, Intermediate, Hives, 01/06/13) PENICILLINS (Verified Allergy, Intermediate, Hives, 01/06/13) Subjective seen in ICU intubated non communicative d/w staff electrical engineer Objective Last 24 Hour Vital Signs Date Time Temp Pulse Resp B/P (MAP) Pulse Ox O2 Delivery O2 Flow Rate FiO2 05/15/18 19:02 101 18 60 05/15/18 18:00 101 17 91/47 (62) 98 05/15/18 17:30 87 17 84/42 (56) 98 05/15/18 17:10 79 18 60 05/15/18 17:00 89 21 74/46 (55) 97 05/15/18 16:30 84 21 70/45 (53) 97 05/15/18 16:00 86 19 73/39 (50) 95 05/15/18 16:00 Mechanical Ventilator 05/15/18 15:38 81 05/15/18 15:30 101 21 90/45 (60) 92 05/15/18 15:15 97.6 112 18 160/67 (98) 93 05/15/18 15:00 91 18 60 05/15/18 15:00 108 18 167/85 (112) 92 05/15/18 14:45 112 18 158/87 (110) 92 05/15/18 14:31 94/70 05/15/18 14:30 103 19 135/66 (89) 94 05/15/18 14:30 60 05/15/18 14:23 60 05/15/18 14:00 98 18 110/62 (78) 97 05/15/18 13:30 95 16 109/60 (76) 98 05/15/18 13:00 96 22 108/58 (75) 94 05/15/18 12:51 96 20 80 05/15/18 12:30 96 17 91/66 (74) 94 05/15/18 12:15 90 17 139/66 (90) 97 05/15/18 12:00 Mechanical Ventilator 05/15/18 12:00 80 18 112/64 (80) 98 05/15/18 12:00 80 05/15/18 12:00 18 Mechanical Ventilator 80 05/15/18 12:00 139/66 05/15/18 11:50 80 05/15/18 11:50 75 05/15/18 11:30 70 18 73/44 (54) 99 05/15/18 11:00 74 18 75/48 (57) 97 05/15/18 11:00 18 80 05/15/18 11:00 68/49 05/15/18 10:43 96 18 80 05/15/18 10:30 91 18 150/61 (90) 97 05/15/18 10:21 125/68 05/15/18 10:00 89 18 129/73 (91) 96 05/15/18 10:00 18 80 05/15/18 10:00 135/51 05/15/18 09:30 86 18 125/67 (86) 96 05/15/18 09:00 96 17 133/62 (85) 96 05/15/18 09:00 18 80 05/15/18 09:00 125/67 05/15/18 08:57 88 18 80 05/15/18 08:42 133/62 05/15/18 08:30 89 18 133/62 (85) 96 05/15/18 08:00 Mechanical Ventilator 05/15/18 08:00 17 Mechanical Ventilator 80 05/15/18 08:00 97.7 91 18 135/68 (90) 97 05/15/18 07:42 90 05/15/18 07:30 92 17 133/68 (89) 96 05/15/18 07:26 91 18 80 05/15/18 07:00 17 Mechanical Ventilator 80 05/15/18 07:00 133/68 05/15/18 07:00 85 18 136/64 (88) 97 05/15/18 06:30 87 17 127/64 (85) 96 05/15/18 06:00 87 18 119/60 (79) 96 05/15/18 06:00 18 Mechanical Ventilator 80 05/15/18 06:00 119/60 05/15/18 05:30 90 15 117/59 (78) 96 05/15/18 05:27 90 18 80 05/15/18 05:00 18 Mechanical Ventilator 80 05/15/18 05:00 138/72 05/15/18 05:00 93 18 138/72 (94) 96 05/15/18 04:30 96 16 142/56 (84) 96 05/15/18 04:03 75 05/15/18 04:03 80 05/15/18 04:02 Mechanical Ventilator 05/15/18 04:00 98.7 87 18 135/60 (85) 97 05/15/18 04:00 135/60 05/15/18 03:30 93 18 137/58 (84) 96 05/15/18 03:11 85 18 80 05/15/18 03:00 18 Mechanical Ventilator 80 05/15/18 03:00 125/67 05/15/18 03:00 94 18 125/67 (86) 97 05/15/18 02:30 89 18 130/66 (87) 97 05/15/18 02:17 140/66 05/15/18 02:00 18 Mechanical Ventilator 80 05/15/18 02:00 140/66 05/15/18 02:00 94 17 140/66 (90) 96 05/15/18 01:30 72 16 87/46 (60) 95 05/15/18 01:07 88 18 80 05/15/18 01:00 18 Mechanical Ventilator 80 1/19/19 01:00 134/70 05/15/18 01:00 94/36 (55) 05/15/18 00:30 76 18 134/70 (91) 97 05/15/18 00:07 72 05/15/18 00:07 80 05/15/18 00:06 Mechanical Ventilator 05/15/18 00:00 18 Mechanical Ventilator 80 05/15/18 00:00 127/62 05/15/18 00:00 100.0 77 18 127/62 (83) 96 05/14/18 23:30 76 18 130/61 (84) 96 05/14/18 23:00 80 18 80 05/14/18 23:00 75 18 127/66 (86) 97 05/14/18 23:00 18 Mechanical Ventilator 80 05/14/18 23:00 127/66 05/14/18 22:30 72 18 113/58 (76) 96 05/14/18 22:00 66 18 96/53 (67) 96 05/14/18 22:00 18 Mechanical Ventilator 80 05/14/18 22:00 96/53 05/14/18 21:40 18 Mechanical Ventilator 80 05/14/18 21:30 68 18 94/56 (69) 96 05/14/18 21:06 82 18 80 05/14/18 21:00 94/56 05/14/18 21:00 93 17 184/81 (115) 97 05/14/18 20:30 76 18 161/76 (104) 97 05/14/18 20:00 76 05/14/18 20:00 80 05/14/18 20:00 Mechanical Ventilator 05/14/18 20:00 147/69 05/14/18 20:00 76 18 147/69 (95) 97 05/14/18 19:31 120/63 05/14/18 19:30 99.3 77 18 131/77 (95) 97 05/14/18 19:15 76 18 120/63 (82) 97 Intake and Output 05/14/18 05/15/18 18:59 06:59 Intake Total 1677.625 ml 1613.8 ml Output Total 640 ml 1095 ml Balance 1037.625 ml 518.8 ml Intake Oral 0 ml 0 ml IV Total 1677.625 ml 1493.8 ml Other 120 ml Output Urine Total 640 ml 1095 ml # Bowel Movements 2 Laboratory Tests 05/14/18 19:53: Arterial Blood pH 7.477H, Arterial Blood Partial Pressure CO2 36.6, Arterial Blood Partial Pressure O2 64.8L, Arterial Blood HCO3 26.5H, Arterial Blood Oxygen Saturation 92.2L, Arterial Blood Base Excess 3.0H, Aditya Test Positive 05/15/18 06:23: White Blood Count 9.7, Red Blood Count 4.79, Hemoglobin 11.8L, Hematocrit 38.9, Mean Corpuscular Volume 81, Mean Corpuscular Hemoglobin 24.7L, Mean Corpuscular Hemoglobin Concent 30.5L, Red Cell Distribution Width 18.2H, Platelet Count 175 , Mean Platelet Volume 7.9, Neutrophils (%) (Auto) , Lymphocytes (%) (Auto) , Monocytes (%) (Auto) , Eosinophils (%) (Auto) , Basophils (%) (Auto) , Differential Total Cells Counted 100, Neutrophils % (Manual) 85H, Lymphocytes % (Manual) 6L, Monocytes % (Manual) 9, Eosinophils % (Manual) 0, Basophils % ( Manual) 0, Band Neutrophils 0, Platelet Estimate Adequate, Platelet Morphology Normal, Polychromasia 2+, Hypochromasia 2+, Anisocytosis 2+, Microcytosis 1+, Ovalocytes 1+, Sodium Level 145, Potassium Level 3.0L, Chloride Level 109H, Carbon Dioxide Level 29, Anion Gap 7, Blood Urea Nitrogen 50H, Creatinine 3.1H, Estimat Glomerular Filtration Rate 18.3, Glucose Level 121H, Hemoglobin A1c 6.6H , Uric Acid 12.6H, Calcium Level 8.3L, Phosphorus Level 4.4, Magnesium Level 2.0 , Total Bilirubin 3.2H, Direct Bilirubin 2.3H, Gamma Glutamyl Transpeptidase 146H, Aspartate Amino Transf (AST/SGOT) 135H, Alanine Aminotransferase (ALT/SGPT ) 70, Alkaline Phosphatase 210H, Ammonia 83H, Total Creatine Kinase 109, Troponin I 0.414H, C-Reactive Protein, Quantitative 6.9H, Pro-B-Type Natriuretic Peptide 1978H, Total Protein 6.5, Albumin 2.6L, Globulin 3.9, Albumin/Globulin Ratio 0.7L, Triglycerides Level 79, Cholesterol Level 80, LDL Cholesterol 46, HDL Cholesterol 24L, Cholesterol/HDL Ratio 3.3, Cortisol AM Sample [Pending] 05/15/18 08:30: Urine Eosinophils None seen 05/15/18 08:50: Arterial Blood pH 7.387, Arterial Blood Partial Pressure CO2 40.8, Arterial Blood Partial Pressure O2 96.4, Arterial Blood HCO3 24.0, Arterial Blood Oxygen Saturation 96.9, Arterial Blood Base Excess -1.0, Aditya Test Positive Height (Feet): 5 Height (Inches): 3.00 Weight (Pounds): 316 Objective Obese AA woman NCAT (+) ETT and OGT coarse BS RR abd obese (+) edema / anasarca (+) leg dressing Bry Mata MD May 15, 2018 19:19
--- NOTE | 2018-05-15 19:40 | NUR ---
HAND-OFF: Report given to LUCIO Singh.
--- NOTE | 2018-05-15 19:41 | NUR ---
NURSE NOTES: Endorsement received from Tenisha Lux RN. Patient sedated, arousable per light pain or shaking. Orally intubated with 7.5, 24 lipline. AC 18 Vt 550, 60% FiO2, PEEP 5. With OGT, placement rechecked per auscultation. With left upper arm double lumen PICC. Ongoing D5NS at 100ml/hr, Fentanyl 50mcg/hr, dobutamine drip to be discontinued. With rectal tube connected to bag, with soft/liquid brown stool. Anaya catheter connected to urimeter. Bilateral lower extremities covered with dressings, dry and intact. With bilateral wrist restraints. On bariatric bed.
[2018-05-15] MEDS ORDERED: D5NS 1000ml IV ONE ×2 (19:47→19:52)
[2018-05-15] MEDS: Dyna-Hex 2% Top Sol 2oz TOPIC SCH (19:57)
[2018-05-15] MEDS: DOPamine 400mg/250ml 250 ML IV SCH (19:58)
--- NOTE | 2018-05-15 20:00 | NUR ---
NURSE NOTES: Patient seen and examined by Dr. Wills, with new order for stat xray.
--- NOTE | 2018-05-15 20:01 | NUR ---
NURSE NOTES: Dopamine started at 2mcg/kg/min. Dopamine discontinued.
--- NOTE | 2018-05-15 20:30 | NUR ---
NURSE NOTES: Bariatric bed head doesn't elevate. Supplier called by charge nurse. Patient's head elevated with multiple pillows and folded blankets.
--- NOTE | 2018-05-15 20:51 | Diagnostic Imaging Report ---
EXAM: XR Chest, 1 View CLINICAL HISTORY: SCREEN TECHNIQUE: Frontal view of the chest. COMPARISON: No relevant prior studies available. FINDINGS: Lungs: Vascular congestion and interstitial edema. Pleural space: No radiographically visible pneumothorax. Heart: Enlarged cardiac silhouette is concerning for cardiomegaly and/or pericardial effusion. Mediastinum: Mediastinal fullness. Bones/joints: Unremarkable. Tubes, lines and devices: Unchanged support devices. Other findings: Peripheral aspect of the right hemithorax is cut off. IMPRESSION: No significant interval change.
[2018-05-15] MEDS ORDERED: Betadine 4oz Bottle TOPIC ONE (21:00)
[2018-05-15] MEDS: fentaNYL Citrate 1000 MCG in NS 100ml IV SCH (21:17)
[2018-05-15] MEDS: FENTANYL CITRATE IV SCH (21:30)
[2018-05-15] MEDS: D5W IV SCH (21:30)
--- NOTE | 2018-05-15 21:30 | NUR ---
NURSE NOTES: Patient spontaneously waking up, confused and restless. Fentanyl drip increased to 60mcg/hr.
[2018-05-15] MEDS: Atorvastatin 20mg tab ORAL SCH (21:37)
--- NOTE | 2018-05-15 23:00 | NUR ---
NURSE NOTES: Patient with eyes closed. No sign of pain or discomfort. Still on Dopamine 2mcg/kg/min.
[2018-05-16] VITALS (51 sets, daily range): BP systolic 91–154; BP diastolic 44–101
[2018-05-16] MEDS: Aztreonam Inj 1 GM in D5W 55 ML IVPB SCH ×3 (00:15→16:33)
--- NOTE | 2018-05-16 02:00 | NUR ---
NURSE NOTES: Bed bath, change of dressings, change of linens done.
--- NOTE | 2018-05-16 03:30 | NUR ---
NURSE NOTES: Sample for stool OB and eosinophil urine collected and sent to the lab.
[2018-05-16] MEDS: ceFAZolin 2gm/50ml Premix 50 ML IVPB SCH ×2 (03:56→16:33)
--- NOTE | 2018-05-16 04:00 | NUR ---
NURSE NOTES: Patient sedated, -2 RASS score. Secretions suctioned. Repositioned.
[2018-05-16] MEDS: D5NS 1,000 ML IV SCH (05:24)
[2018-05-16] MEDS: Lactulose 10gm/15ml UDC NG SCH ×3 (05:26→22:10)
--- NOTE | 2018-05-16 06:00 | NUR ---
NURSE NOTES: Blood sugar checked and insulin given as per sliding scale.
[2018-05-16 06:03] LABS: ALANINE AMINOTRANSFERASE 53 U/L (12-78); ALBUMIN 2.5 G/DL (3.4-5.0); ALBUMIN/GLOBULIN RATIO 0.6 (1.0-2.7); ALKALINE PHOSPHATASE 196 U/L (46-116); ANION GAP 10 mmol/L (5-15); ASPARTATE AMINO TRANSFERASE 79 U/L (15-37); BILIRUBIN,TOTAL 2.9 MG/DL (0.2-1.0); BLOOD UREA NITROGEN 47 mg/dL (7-18); CALCIUM 8.3 MG/DL (8.5-10.1); CARBON DIOXIDE 26 MMOL/L (21-32); CHLORIDE 111 MMOL/L (98-107); CREATININE 2.4 MG/DL (0.55-1.30); PHOSPHORUS 3.9 MG/DL (2.5-4.9); POTASSIUM 3.4 MMOL/L (3.5-5.1); SODIUM 147 MMOL/L (136-145)
[2018-05-16] MEDS: NovoLOG Insulin Flexpen SUBQ SCH ×4 (06:10→21:00)
[2018-05-16 06:16] LABS: BILIRUBIN,DIRECT 2.2 MG/DL (0.0-0.3)
[2018-05-16 06:26] LABS: BASOPHILS % (AUTO) 0.9 % (0.0-2.0); EOSINOPHILS % (AUTO) 0.8 % (0.0-3.0); HEMATOCRIT 38.5 % (37.0-47.0); HEMOGLOBIN 11.6 G/DL (12.0-16.0); LYMPHOCYTES % (AUTO) 10.1 % (20.0-45.0); MEAN CORPUSCULAR VOLUME 82 FL (80-99); MONOCYTES % (AUTO) 8.7 % (1.0-10.0); NEUTROPHILS % (AUTO) 79.5 % (45.0-75.0); PLATELET COUNT 100 K/UL (150-450); RED CELL DISTRIBUTION WIDTH 18.5 % (11.6-14.8); WHITE BLOOD COUNT 7.9 K/UL (4.8-10.8)
--- NOTE | 2018-05-16 06:37 | NUR ---
NURSE NOTES: Patient seen and examined by Dr. Wills, seen latest chest xray as well. No new order at this time.
--- NOTE | 2018-05-16 07:15 | NUR ---
HAND-OFF: Report given to LUCIO Bravo per SBAR.
--- NOTE | 2018-05-16 07:21 | NUR ---
Received Patient on Vent settings of ACVC RR 18, VT 550, FIO2 80%, PEEP +5. Patient orally intubated with 7.5 ETT at 24cm at the lip secured by anchorfast. Diminished rhonchi are heard bilaterally. SX thin clear blood tinged secretions. Vent plugged into red outlet. Alarms are on and audible. Will continue to monitor throughout the day.
[2018-05-16] MEDS: Pantoprazole Inj IVP SCH ×2 (08:30→20:55)
[2018-05-16] MEDS: Allopurinol 100mg Tab NG SCH (08:30)
[2018-05-16] MEDS: Betadine 4oz Bottle TOPIC SCH ×2 (08:31→18:06)
[2018-05-16] MEDS: Nitroglycerin Patch 0.4mg TDERMAL SCH (08:37)
--- NOTE | 2018-05-16 09:45 | NUR ---
NURSE NOTES: morning AM medication given through NG tune, patient remains sedated on 60mcg/hr,
--- NOTE | 2018-05-16 10:58 | NUR ---
RD ASSESSMENT & RECOMMENDATIONS SEE CARE ACTIVITY FOR COMPLETE ASSESSMENT DAILY ESTIMATED NEEDS: Needs based on Critical care, wounds, DM, morbid obesity (71.5kg abw) 20-25 kcals/kg 4790-4591 total kcals 1.25-2 g protein/kg 89-143 g total protein Fluid per MD. NUTRITION DIAGNOSIS: 1) Increased protein needs r/t wound healing as evidenced by pt w/ chronic LLE ulcers. 2) Morbid obesity R/T excessive energy intake as evidenced by BMI>50 per guidelines. 3) Swallowing difficulty r/t respiratory status as evidenced by pt now orally intubated, NPO. CURRENT DIET: NPO ENTERAL NUTRITION RECOMMENDATIONS: As appropriate-> Glucerna 1.5 @45ml /hr x24 hrs + Prosource qdaily to provide 1080ml, 18609 kcal, 89g +11g prot, 820ml free H2O - As medically appropriate, rec non oral feeds to meet est nutritional needs. - Start Glucerna 1.5 @25ml/hr for 6 hrs, advance 10ml/hr q4-6 hrs to goal of 45ml/hr x24 hrs - Add PROSOURCE 1 pack daily to better meet est prot needs - Flush per MD/ HOB over 30 degrees ADDITIONAL RECOMMENDATIONS: 1) RE-calibrate bed scale (wts per EMR: 200#, 316#, 341#) 2) Monitor lytes on lasix, replete as needed 3) Wound care: add NELY BID + MVI x1 + Vit C 500mg BID 4) TF recs as above, STEAM FITTER SUPERVISOR MAINTENANCE eval when extubated 5) Monitor K/ need for Low K formula 6) FEED w/ hemodynamic stability/ otherwise trophic feeds of 5-10ml/hr to maintain gut integrity
--- NOTE | 2018-05-16 11:30 | NUR ---
NURSE NOTES: Dr. perez ordered to have patient started on tube feeding per appraiser recommendation, also orders to have vitamin c 500mg bid, Multi-vitamin to be given, and adithya for wound healing, will place orders.
[2018-05-16] MEDS: fentaNYL Citrate 1000 MCG in NS 100ml IV SCH (12:23)
--- NOTE | 2018-05-16 12:40 | NUR ---
NURSE NOTES: Dr. Mckinney updated on patient condition, no verbal orders given at this time,
--- NOTE | 2018-05-16 12:41 | Nephrology Progress Note ---
Assessment/Plan Problem List: (1) ARF (acute renal failure) (2) Cellulitis of both lower extremities (3) Venous stasis ulcers of both lower extremities (4) DM (diabetes mellitus) (5) CKD (chronic kidney disease) (6) Morbid (severe) obesity due to excess calories (7) Acute hypoxemic respiratory failure Assessment Diabetic Nephropathy acute renal failure super imposed on CKD Encephalopathy, CO2 retainer, respiratory failure acute Obesity High Trop High Bili UTI Bilateral LE cellulitis Anemia Plan pulmonary support / Mechanical ventilation Anaya pressors Urine studies Avoid nephrotoxics monitor renal parameters 2D echo kidney WESLEY Per ID , Pulm... meds IV or OG tube Avoid mind altering meds per orders Subjective ROS Limited/Unobtainable: Yes Objective Objective Last 24 Hour Vital Signs Date Time Temp Pulse Resp B/P (MAP) Pulse Ox O2 Delivery O2 Flow Rate FiO2 05/16/18 12:23 18 Mechanical Ventilator 60 05/16/18 12:00 96 05/16/18 11:13 92 18 60 05/16/18 10:00 96 18 154/77 (102) 97 05/16/18 09:30 95 18 140/61 (87) 97 05/16/18 09:01 96 18 60 05/16/18 09:00 93 18 131/60 (83) 97 05/16/18 08:37 128/81 05/16/18 08:30 93 18 132/76 (94) 97 05/16/18 08:00 60 05/16/18 08:00 Mechanical Ventilator 05/16/18 08:00 97.7 95 18 116/76 (89) 97 05/16/18 08:00 94 05/16/18 07:30 94 18 127/66 (86) 97 05/16/18 07:00 97 18 118/61 (80) 97 05/16/18 06:52 96 18 60 05/16/18 06:45 96 18 122/64 (83) 97 05/16/18 06:30 92 18 124/58 (80) 98 05/16/18 06:00 18 Mechanical Ventilator 60 05/16/18 06:00 111/62 05/16/18 06:00 91 18 111/62 (78) 96 05/16/18 05:30 91 18 119/58 (78) 96 05/16/18 05:15 92 18 109/67 (81) 97 05/16/18 05:13 90 18 60 05/16/18 05:00 18 Mechanical Ventilator 60 05/16/18 05:00 109/67 05/16/18 05:00 93 19 91/69 (76) 95 05/16/18 04:45 98 17 122/65 (84) 93 05/16/18 04:30 92 18 125/57 (79) 95 05/16/18 04:00 88 05/16/18 04:00 97.7 97 18 117/75 (89) 95 05/16/18 04:00 18 Mechanical Ventilator 60 05/16/18 04:00 113/52 05/16/18 04:00 60 05/16/18 04:00 Mechanical Ventilator 05/16/18 03:45 98 18 116/67 (83) 95 05/16/18 03:30 96 18 121/68 (85) 94 05/16/18 03:15 92 18 115/68 (84) 98 05/16/18 03:02 94 18 60 05/16/18 03:00 93 18 113/71 (85) 98 05/16/18 03:00 18 Mechanical Ventilator 60 05/16/18 03:00 115/68 05/16/18 02:30 101 18 116/63 (80) 97 05/16/18 02:00 91 18 103/54 (70) 95 05/16/18 02:00 18 Mechanical Ventilator 60 05/16/18 02:00 103/56 05/16/18 01:34 98 18 60 05/16/18 01:30 99 18 119/44 (69) 97 05/16/18 01:00 18 Mechanical Ventilator 60 05/16/18 01:00 103/53 05/16/18 01:00 100 17 106/62 (77) 95 05/16/18 00:30 105 18 141/72 (95) 96 05/16/18 00:00 Mechanical Ventilator 05/16/18 00:00 97.9 98 18 118/57 (77) 97 05/16/18 00:00 18 Mechanical Ventilator 60 05/16/18 00:00 118/57 05/16/18 00:00 98 05/16/18 00:00 60 05/15/18 23:01 103 18 60 05/15/18 23:00 18 Mechanical Ventilator 60 05/15/18 23:00 113/55 05/15/18 23:00 98 18 113/55 (74) 97 05/15/18 22:45 101 18 115/50 (71) 96 05/15/18 22:30 107 18 122/55 (77) 95 05/15/18 22:26 97.6 05/15/18 22:15 102 18 144/69 (94) 94 05/15/18 22:00 80 18 75/47 (56) 95 05/15/18 22:00 18 Mechanical Ventilator 60 05/15/18 22:00 82/30 05/15/18 21:45 89 14 82/30 (47) 97 05/15/18 21:30 122 18 170/84 (112) 95 05/15/18 21:30 18 Mechanical Ventilator 60 05/15/18 21:30 18 Mechanical Ventilator 60 05/15/18 21:17 60 05/15/18 21:15 112 18 161/74 (103) 96 05/15/18 21:08 94 18 60 05/15/18 21:00 85 18 107/61 (76) 96 05/15/18 21:00 107/61 05/15/18 20:45 88 18 88/59 (69) 98 05/15/18 20:30 87 18 89/53 (65) 97 05/15/18 20:15 93 18 100/58 (72) 99 05/15/18 20:00 Mechanical Ventilator 05/15/18 20:00 97.9 99 18 90/56 (67) 99 05/15/18 20:00 95 05/15/18 20:00 60 05/15/18 19:58 94/48 05/15/18 19:02 101 18 60 05/15/18 19:00 101 18 95/56 (69) 99 05/15/18 18:30 101 18 91/47 (62) 05/15/18 18:00 101 17 91/47 (62) 98 05/15/18 17:30 87 17 84/42 (56) 98 05/15/18 17:10 79 18 60 05/15/18 17:00 89 21 74/46 (55) 97 05/15/18 16:30 84 21 70/45 (53) 97 05/15/18 16:00 86 19 73/39 (50) 95 05/15/18 16:00 Mechanical Ventilator 05/15/18 15:38 81 05/15/18 15:30 101 21 90/45 (60) 92 05/15/18 15:15 97.6 112 18 160/67 (98) 93 05/15/18 15:00 91 18 60 05/15/18 15:00 108 18 167/85 (112) 92 05/15/18 14:45 112 18 158/87 (110) 92 05/15/18 14:31 94/70 05/15/18 14:30 103 19 135/66 (89) 94 05/15/18 14:30 60 05/15/18 14:23 60 05/15/18 14:00 98 18 110/62 (78) 97 05/15/18 13:30 95 16 109/60 (76) 98 05/15/18 13:00 96 22 108/58 (75) 94 05/15/18 12:51 96 20 80 Intake and Output 05/15/18 05/16/18 19:00 07:00 Intake Total 1717.254 ml 1477.25 ml Output Total 670 ml 560 ml Balance 1047.254 ml 917.25 ml Intake Oral 0 ml IV Total 1587.254 ml 1377.25 ml Other 130 ml 100 ml Output Urine Total 670 ml 510 ml Stool Total 50 ml # Bowel Movements 2 3 Laboratory Tests 05/16/18 03:30: Urine Eosinophils None seen, Stool Occult Blood [Pending] 05/16/18 05:03: White Blood Count 7.9, Red Blood Count 4.70, Hemoglobin 11.6L, Hematocrit 38.5, Mean Corpuscular Volume 82, Mean Corpuscular Hemoglobin 24.6L, Mean Corpuscular Hemoglobin Concent 30.0L, Red Cell Distribution Width 18.5H, Platelet Count 100L , Mean Platelet Volume 8.3, Neutrophils (%) (Auto) 79.5H, Lymphocytes (%) (Auto ) 10.1L, Monocytes (%) (Auto) 8.7, Eosinophils (%) (Auto) 0.8, Basophils (%) ( Auto) 0.9, Sodium Level 147H, Potassium Level 3.4L, Chloride Level 111H, Carbon Dioxide Level 26, Anion Gap 10, Blood Urea Nitrogen 47H, Creatinine 2.4H, Estimat Glomerular Filtration Rate 24.6, Glucose Level 125H, Uric Acid 12.3H, Calcium Level 8.3L, Phosphorus Level 3.9, Magnesium Level 2.0, Total Bilirubin 2.9H, Direct Bilirubin 2.2H, Aspartate Amino Transf (AST/SGOT) 79H, Alanine Aminotransferase (ALT/SGPT) 53, Alkaline Phosphatase 196H, Pro-B-Type Natriuretic Peptide 1870H, Total Protein 6.5, Albumin 2.5L, Globulin 4.0, Albumin/Globulin Ratio 0.6L 05/16/18 07:20: Ammonia 60H Height (Feet): 5 Height (Inches): 3.00 Weight (Pounds): 341 EENT: other - on vent Cardiovascular: tachycardia Respiratory/Chest: decreased breath sounds Abdomen: distended Objective no change Tr Strange MD May 16, 2018 12:41
--- NOTE | 2018-05-16 12:45 | NUR ---
NURSE NOTES: Tube feeding started at 15ml/hr for trophic feeding, patient has a OG tube confirmed with X-ray, patient is sedated with Fentanyl drip at 60mcg/hr at dose of 6ml/hr, rectal tube remains draining brown liquid stool, wounds dressing remains dry and intact, patient remains on restraint on bilateral wrist, will continue to monitor.
--- NOTE | 2018-05-16 13:01 | General Progress Note ---
Assessment/Plan Status: unchanged Assessment/Plan S, O: Intubated, PICC line in place, Sedated. limited exam PHYSICAL EXAMINATION: HEAD AND NECK: Atraumatic and normocephalic. CHEST: Diffuse bronchial breathing sounds. Overall decreased breathing sounds. ABDOMEN: Grossly morbidly obese. Limited evaluation. MUSCULOSKELETAL: Positive for ulcers and wounds, more diffusely edematous about 2+, superficial wounds on both legs , dressed . NEUROLOGIC: The patient is sedated and intubated. limited exam, Meds: Reviewed and reconciled. Including Dopamine gtt Renal Us : reviewed ASSESSMENT: 1.Vent Dependent Respiratory failure 2. shock, ddx: septic vs cardiogenic 3. CHF exacerbation, right sided, preserved EF 3. Acute/Chronic Renal F 4. Abnormal Trop: NSTEMI vs Leakage 3. UTI/lower extremity infection Hypertension. 4. Diabetes type 2, controlled with A1c of 6.3. 5. Pain management. 6. PAH 6. GI and DVT prophylaxis. PLAN OF CARE: Grave prognosis Didn't tolerate Dobutamine gtt. re-placed Dopamin gtt. discussed with Cardiology Subjective Allergies: Coded Allergies: ASPIRIN (Verified Allergy, Intermediate, Hives, 01/06/13) PENICILLINS (Verified Allergy, Intermediate, Hives, 01/06/13) Objective Last 24 Hour Vital Signs Date Time Temp Pulse Resp B/P (MAP) Pulse Ox O2 Delivery O2 Flow Rate FiO2 05/16/18 12:23 18 Mechanical Ventilator 60 05/16/18 12:00 Mechanical Ventilator 05/16/18 12:00 96 05/16/18 12:00 60 05/16/18 11:13 92 18 60 05/16/18 10:00 96 18 154/77 (102) 97 05/16/18 09:30 95 18 140/61 (87) 97 05/16/18 09:01 96 18 60 05/16/18 09:00 93 18 131/60 (83) 97 05/16/18 08:37 128/81 05/16/18 08:30 93 18 132/76 (94) 97 05/16/18 08:00 60 05/16/18 08:00 Mechanical Ventilator 05/16/18 08:00 97.7 95 18 116/76 (89) 97 05/16/18 08:00 94 05/16/18 07:30 94 18 127/66 (86) 97 05/16/18 07:00 97 18 118/61 (80) 97 05/16/18 06:52 96 18 60 05/16/18 06:45 96 18 122/64 (83) 97 05/16/18 06:30 92 18 124/58 (80) 98 05/16/18 06:00 18 Mechanical Ventilator 60 05/16/18 06:00 111/62 05/16/18 06:00 91 18 111/62 (78) 96 05/16/18 05:30 91 18 119/58 (78) 96 05/16/18 05:15 92 18 109/67 (81) 97 05/16/18 05:13 90 18 60 05/16/18 05:00 18 Mechanical Ventilator 60 05/16/18 05:00 109/67 05/16/18 05:00 93 19 91/69 (76) 95 05/16/18 04:45 98 17 122/65 (84) 93 05/16/18 04:30 92 18 125/57 (79) 95 05/16/18 04:00 88 05/16/18 04:00 97.7 97 18 117/75 (89) 95 05/16/18 04:00 18 Mechanical Ventilator 60 05/16/18 04:00 113/52 05/16/18 04:00 60 05/16/18 04:00 Mechanical Ventilator 05/16/18 03:45 98 18 116/67 (83) 95 05/16/18 03:30 96 18 121/68 (85) 94 05/16/18 03:15 92 18 115/68 (84) 98 05/16/18 03:02 94 18 60 05/16/18 03:00 93 18 113/71 (85) 98 05/16/18 03:00 18 Mechanical Ventilator 60 05/16/18 03:00 115/68 05/16/18 02:30 101 18 116/63 (80) 97 05/16/18 02:00 91 18 103/54 (70) 95 05/16/18 02:00 18 Mechanical Ventilator 60 05/16/18 02:00 103/56 05/16/18 01:34 98 18 60 05/16/18 01:30 99 18 119/44 (69) 97 05/16/18 01:00 18 Mechanical Ventilator 60 1/20/19 01:00 103/53 05/16/18 01:00 100 17 106/62 (77) 95 05/16/18 00:30 105 18 141/72 (95) 96 05/16/18 00:00 Mechanical Ventilator 05/16/18 00:00 97.9 98 18 118/57 (77) 97 05/16/18 00:00 18 Mechanical Ventilator 60 05/16/18 00:00 118/57 05/16/18 00:00 98 05/16/18 00:00 60 05/15/18 23:01 103 18 60 05/15/18 23:00 18 Mechanical Ventilator 60 05/15/18 23:00 113/55 05/15/18 23:00 98 18 113/55 (74) 97 05/15/18 22:45 101 18 115/50 (71) 96 05/15/18 22:30 107 18 122/55 (77) 95 05/15/18 22:26 97.6 05/15/18 22:15 102 18 144/69 (94) 94 05/15/18 22:00 80 18 75/47 (56) 95 05/15/18 22:00 18 Mechanical Ventilator 60 05/15/18 22:00 82/30 05/15/18 21:45 89 14 82/30 (47) 97 05/15/18 21:30 122 18 170/84 (112) 95 05/15/18 21:30 18 Mechanical Ventilator 60 05/15/18 21:30 18 Mechanical Ventilator 60 05/15/18 21:17 60 05/15/18 21:15 112 18 161/74 (103) 96 05/15/18 21:08 94 18 60 05/15/18 21:00 85 18 107/61 (76) 96 05/15/18 21:00 107/61 05/15/18 20:45 88 18 88/59 (69) 98 05/15/18 20:30 87 18 89/53 (65) 97 05/15/18 20:15 93 18 100/58 (72) 99 05/15/18 20:00 Mechanical Ventilator 05/15/18 20:00 97.9 99 18 90/56 (67) 99 05/15/18 20:00 95 05/15/18 20:00 60 05/15/18 19:58 94/48 05/15/18 19:02 101 18 60 1/19/19 19:00 101 18 95/56 (69) 99 05/15/18 18:30 101 18 91/47 (62) 05/15/18 18:00 101 17 91/47 (62) 98 05/15/18 17:30 87 17 84/42 (56) 98 05/15/18 17:10 79 18 60 05/15/18 17:00 89 21 74/46 (55) 97 05/15/18 16:30 84 21 70/45 (53) 97 05/15/18 16:00 86 19 73/39 (50) 95 05/15/18 16:00 Mechanical Ventilator 05/15/18 15:38 81 05/15/18 15:30 101 21 90/45 (60) 92 05/15/18 15:15 97.6 112 18 160/67 (98) 93 05/15/18 15:00 91 18 60 05/15/18 15:00 108 18 167/85 (112) 92 05/15/18 14:45 112 18 158/87 (110) 92 05/15/18 14:31 94/70 05/15/18 14:30 103 19 135/66 (89) 94 05/15/18 14:30 60 05/15/18 14:23 60 05/15/18 14:00 98 18 110/62 (78) 97 05/15/18 13:30 95 16 109/60 (76) 98 05/15/18 13:00 96 22 108/58 (75) 94 Intake and Output 05/15/18 05/16/18 19:00 07:00 Intake Total 1717.254 ml 1477.25 ml Output Total 670 ml 560 ml Balance 1047.254 ml 917.25 ml Intake Oral 0 ml IV Total 1587.254 ml 1377.25 ml Other 130 ml 100 ml Output Urine Total 670 ml 510 ml Stool Total 50 ml # Bowel Movements 2 3 Laboratory Tests 05/16/18 03:30: Urine Eosinophils None seen, Stool Occult Blood [Pending] 05/16/18 05:03: White Blood Count 7.9, Red Blood Count 4.70, Hemoglobin 11.6L, Hematocrit 38.5, Mean Corpuscular Volume 82, Mean Corpuscular Hemoglobin 24.6L, Mean Corpuscular Hemoglobin Concent 30.0L, Red Cell Distribution Width 18.5H, Platelet Count 100L , Mean Platelet Volume 8.3, Neutrophils (%) (Auto) 79.5H, Lymphocytes (%) (Auto ) 10.1L, Monocytes (%) (Auto) 8.7, Eosinophils (%) (Auto) 0.8, Basophils (%) ( Auto) 0.9, Sodium Level 147H, Potassium Level 3.4L, Chloride Level 111H, Carbon Dioxide Level 26, Anion Gap 10, Blood Urea Nitrogen 47H, Creatinine 2.4H, Estimat Glomerular Filtration Rate 24.6, Glucose Level 125H, Uric Acid 12.3H, Calcium Level 8.3L, Phosphorus Level 3.9, Magnesium Level 2.0, Total Bilirubin 2.9H, Direct Bilirubin 2.2H, Aspartate Amino Transf (AST/SGOT) 79H, Alanine Aminotransferase (ALT/SGPT) 53, Alkaline Phosphatase 196H, Pro-B-Type Natriuretic Peptide 1870H, Total Protein 6.5, Albumin 2.5L, Globulin 4.0, Albumin/Globulin Ratio 0.6L 05/16/18 07:20: Ammonia 60H, C-Reactive Protein, Quantitative [Pending] Height (Feet): 5 Height (Inches): 3.00 Weight (Pounds): 341 Margaret Mckinney MD May 16, 2018 13:01
--- NOTE | 2018-05-16 13:46 | NUR ---
CASE MANAGEMENT: REVIEW 05/16/2018 SI: BILATERAL LOWER EXTREMITY CELLULITIS . T 98.3 HR 99 RR 18 B/P 124/68 SATS 95% ON MECH VENT FiO2 60 NA 147 K 3.4 CL 111 BUN 47 CR 2.4 GLU 125 CA 8.3 URIC ACID 12.3 TBILI 2.9 DBILI 2.2 ALP 196 AMMONIA 60 IS: LOVENOX SQ Q24HR LASIX PO QD LACTULOSE PO TID PROTONIX PO QD AZTREONAM IV Q8HR CLINDAMYCIN IV Q8HR RIFAXIMIN PO Q12HR ICU STATUS DCP: PATIENT IS FROM HOME
[2018-05-16] MEDS: Enoxaparin 100mg Inj SUBQ SCH (14:00)
--- NOTE | 2018-05-16 14:35 | NUR ---
NURSE NOTES: Patient remains calm and resting in bed, she remains on dopamine at 2mcg/kg/min, she remain at 60mcg/hr of fentanyl drip,
--- NOTE | 2018-05-16 15:13 | Infectious Diseases Prog Note ---
Assessment/Plan Problems: (1) Bilateral lower leg cellulitis Assessment & Plan: continue cefazoline and aztreonam empirically with local wounds care . patient refused MRI and CT of the legs to rule out deep abscess or osteomyelitis. await bone scan of both legs . D/W spinning frame changer (2) Nonhealing ulcer of left lower extremity Assessment & Plan: wound culture is growing gram negative rods and diphtheroids , already on aztreonam and cefazolin , continue local wound care and dressings change as per wound care service (3) Painful legs and moving toes Assessment & Plan: suspect due to the above , will order venous doppler to rule out DVT (4) CKD (chronic kidney disease) Assessment & Plan: avoid nephrotoxics , renally dosed antibiotics as per pharmacy (5) DM (diabetes mellitus) Assessment & Plan: recommend tight glycemic control to keep blood glucose between 100-140 (6) Acute encephalopathy Assessment & Plan: suspect metabolic with high ammonia level, continue lactulose , consult neurology if no improvement with brain image (7) Acute hypoxemic respiratory failure Assessment & Plan: due to the above , intubated on mechanical ventilation, pulmonary is following Subjective ROS Limited/Unobtainable: Yes Allergies: Coded Allergies: ASPIRIN (Verified Allergy, Intermediate, Hives, 01/06/13) PENICILLINS (Verified Allergy, Intermediate, Hives, 01/06/13) Subjective she was still intubated on mechanical ventilation in ICU , sedated , responsive to verbal commands, afebrile, NAD . has more UOP , on pressor Objective Vital Signs Last 24 Hour Vital Signs Date Time Temp Pulse Resp B/P (MAP) Pulse Ox O2 Delivery O2 Flow Rate FiO2 05/16/18 15:00 87 18 137/78 (97) 95 05/16/18 14:43 99 23 60 05/16/18 14:30 94 18 114/65 (81) 96 05/16/18 14:00 97 10 137/78 (97) 96 05/16/18 13:30 98 10 127/76 (93) 96 05/16/18 13:09 100 18 60 05/16/18 13:00 99 10 144/78 (100) 94 05/16/18 12:30 99 18 134/70 (91) 96 05/16/18 12:23 18 Mechanical Ventilator 60 05/16/18 12:00 Mechanical Ventilator 05/16/18 12:00 96 05/16/18 12:00 60 05/16/18 12:00 98.3 99 18 124/68 (86) 95 05/16/18 11:30 102 18 142/67 (92) 95 05/16/18 11:13 92 18 60 05/16/18 11:00 96 18 152/65 (94) 96 05/16/18 10:30 97 18 138/72 (94) 96 05/16/18 10:00 96 18 154/77 (102) 97 05/16/18 09:30 95 18 140/61 (87) 97 05/16/18 09:01 96 18 60 05/16/18 09:00 93 18 131/60 (83) 97 05/16/18 08:37 128/81 05/16/18 08:30 93 18 132/76 (94) 97 05/16/18 08:00 60 05/16/18 08:00 Mechanical Ventilator 05/16/18 08:00 97.7 95 18 116/76 (89) 97 05/16/18 08:00 94 05/16/18 07:30 94 18 127/66 (86) 97 05/16/18 07:00 97 18 118/61 (80) 97 05/16/18 06:52 96 18 60 05/16/18 06:45 96 18 122/64 (83) 97 05/16/18 06:30 92 18 124/58 (80) 98 05/16/18 06:00 18 Mechanical Ventilator 60 05/16/18 06:00 111/62 05/16/18 06:00 91 18 111/62 (78) 96 05/16/18 05:30 91 18 119/58 (78) 96 05/16/18 05:15 92 18 109/67 (81) 97 05/16/18 05:13 90 18 60 05/16/18 05:00 18 Mechanical Ventilator 60 05/16/18 05:00 109/67 05/16/18 05:00 93 19 91/69 (76) 95 05/16/18 04:45 98 17 122/65 (84) 93 05/16/18 04:30 92 18 125/57 (79) 95 05/16/18 04:00 88 05/16/18 04:00 97.7 97 18 117/75 (89) 95 05/16/18 04:00 18 Mechanical Ventilator 60 05/16/18 04:00 113/52 05/16/18 04:00 60 05/16/18 04:00 Mechanical Ventilator 05/16/18 03:45 98 18 116/67 (83) 95 05/16/18 03:30 96 18 121/68 (85) 94 05/16/18 03:15 92 18 115/68 (84) 98 05/16/18 03:02 94 18 60 05/16/18 03:00 93 18 113/71 (85) 98 05/16/18 03:00 18 Mechanical Ventilator 60 05/16/18 03:00 115/68 05/16/18 02:30 101 18 116/63 (80) 97 05/16/18 02:00 91 18 103/54 (70) 95 05/16/18 02:00 18 Mechanical Ventilator 60 05/16/18 02:00 103/56 05/16/18 01:34 98 18 60 05/16/18 01:30 99 18 119/44 (69) 97 05/16/18 01:00 18 Mechanical Ventilator 60 05/16/18 01:00 103/53 05/16/18 01:00 100 17 106/62 (77) 95 05/16/18 00:30 105 18 141/72 (95) 96 05/16/18 00:00 Mechanical Ventilator 05/16/18 00:00 97.9 98 18 118/57 (77) 97 05/16/18 00:00 18 Mechanical Ventilator 60 05/16/18 00:00 118/57 05/16/18 00:00 98 05/16/18 00:00 60 05/15/18 23:01 103 18 60 05/15/18 23:00 18 Mechanical Ventilator 60 05/15/18 23:00 113/55 05/15/18 23:00 98 18 113/55 (74) 97 05/15/18 22:45 101 18 115/50 (71) 96 05/15/18 22:30 107 18 122/55 (77) 95 05/15/18 22:26 97.6 05/15/18 22:15 102 18 144/69 (94) 94 05/15/18 22:00 80 18 75/47 (56) 95 05/15/18 22:00 18 Mechanical Ventilator 60 05/15/18 22:00 82/30 05/15/18 21:45 89 14 82/30 (47) 97 05/15/18 21:30 122 18 170/84 (112) 95 05/15/18 21:30 18 Mechanical Ventilator 60 05/15/18 21:30 18 Mechanical Ventilator 60 05/15/18 21:17 60 05/15/18 21:15 112 18 161/74 (103) 96 05/15/18 21:08 94 18 60 05/15/18 21:00 85 18 107/61 (76) 96 05/15/18 21:00 107/61 05/15/18 20:45 88 18 88/59 (69) 98 05/15/18 20:30 87 18 89/53 (65) 97 05/15/18 20:15 93 18 100/58 (72) 99 05/15/18 20:00 Mechanical Ventilator 05/15/18 20:00 97.9 99 18 90/56 (67) 99 05/15/18 20:00 95 05/15/18 20:00 60 05/15/18 19:58 94/48 05/15/18 19:02 101 18 60 05/15/18 19:00 101 18 95/56 (69) 99 05/15/18 18:30 101 18 91/47 (62) 05/15/18 18:00 101 17 91/47 (62) 98 05/15/18 17:30 87 17 84/42 (56) 98 05/15/18 17:10 79 18 60 05/15/18 17:00 89 21 74/46 (55) 97 05/15/18 16:30 84 21 70/45 (53) 97 05/15/18 16:00 86 19 73/39 (50) 95 05/15/18 16:00 Mechanical Ventilator 05/15/18 15:38 81 05/15/18 15:30 101 21 90/45 (60) 92 05/15/18 15:15 97.6 112 18 160/67 (98) 93 Height (Feet): 5 Height (Inches): 3.00 Weight (Pounds): 341 General Appearance: WD/WN, no acute distress HEENT: normocephalic, atraumatic, anicteric, mucous membranes moist, EOMI, pharynx normal, no JVD Respiratory/Chest: chest wall non-tender, no respiratory distress, no accessory muscle use, decreased breath sounds, crackles/rales Cardiovascular: normal peripheral pulses, normal rate, regular rhythm, no gallop/murmur, no JVD Abdomen: normal bowel sounds, soft, non tender, no organomegaly, non distended , no mass, no scars Extremities: no cyanosis, no clubbing Skin: no rash, no lesions, ulcers Neurologic/Psychiatric: responsive Lymphatic: no neck adenopathy, no groin adenopathy Musculoskeletal: normal muscle bulk, no effusion Laboratory Tests Test 05/16/18 03:30 05/16/18 05:03 05/16/18 07:20 Urine Eosinophils None seen (NONE SEEN) Stool Occult Blood Pending White Blood Count 7.9 K/UL (4.8-10.8) Red Blood Count 4.70 M/UL (4.20-5.40) Hemoglobin 11.6 G/DL (12.0-16.0) L Hematocrit 38.5 % (37.0-47.0) Mean Corpuscular Volume 82 FL (80-99) Mean Corpuscular Hemoglobin 24.6 PG (27.0-31.0) L Mean Corpuscular Hemoglobin Concent 30.0 G/DL (32.0-36.0) L Red Cell Distribution Width 18.5 % (11.6-14.8) H Platelet Count 100 K/UL (150-450) L Mean Platelet Volume 8.3 FL (6.5-10.1) Neutrophils (%) (Auto) 79.5 % (45.0-75.0) H Lymphocytes (%) (Auto) 10.1 % (20.0-45.0) L Monocytes (%) (Auto) 8.7 % (1.0-10.0) Eosinophils (%) (Auto) 0.8 % (0.0-3.0) Basophils (%) (Auto) 0.9 % (0.0-2.0) Sodium Level 147 MMOL/L (136-145) H Potassium Level 3.4 MMOL/L (3.5-5.1) L Chloride Level 111 MMOL/L (98-107) H Carbon Dioxide Level 26 MMOL/L (21-32) Anion Gap 10 mmol/L (5-15) Blood Urea Nitrogen 47 mg/dL (7-18) H Creatinine 2.4 MG/DL (0.55-1.30) H Estimat Glomerular Filtration Rate 24.6 mL/min (>60) Glucose Level 125 MG/DL (74-106) H Uric Acid 12.3 MG/DL (2.6-7.2) H Calcium Level 8.3 MG/DL (8.5-10.1) L Phosphorus Level 3.9 MG/DL (2.5-4.9) Magnesium Level 2.0 MG/DL (1.8-2.4) Total Bilirubin 2.9 MG/DL (0.2-1.0) H Direct Bilirubin 2.2 MG/DL (0.0-0.3) H Aspartate Amino Transf (AST/SGOT) 79 U/L (15-37) H Alanine Aminotransferase (ALT/SGPT) 53 U/L (12-78) Alkaline Phosphatase 196 U/L (46-116) H Pro-B-Type Natriuretic Peptide 1870 pg/mL (0-125) H Total Protein 6.5 G/DL (6.4-8.2) Albumin 2.5 G/DL (3.4-5.0) L Globulin 4.0 g/dL Albumin/Globulin Ratio 0.6 (1.0-2.7) L Ammonia 60 umol/L (11-32) H C-Reactive Protein, Quantitative 9.0 mg/dL (0.00-0.90) H Current Medications Medications (Trade) Dose Ordered Sig/Toya Route PRN Reason Start Time Stop Time Status Last Admin Dose Admin Allopurinol (Zyloprim) 300 mg DAILY NG 05/17/18 09:00 06/14/18 08:59 Ascorbic Acid (Vitamin C) 500 mg TWICE A DAY ORAL 05/16/18 18:00 06/15/18 17:59 Atorvastatin Calcium (Lipitor) 40 mg BEDTIME ORAL 05/14/18 21:00 06/13/18 20:59 05/15/18 21:37 Aztreonam 1 gm/ Dextrose 55 ml @ 110 mls/hr Q8HR@0000,0800,1600 IVPB 05/14/18 00:00 05/20/18 00:00 05/16/18 08:31 Cefazolin Sodium 50 ml @ 100 mls/hr Q12HR@0400,1600 IVPB 05/15/18 16:00 05/22/18 15:59 05/16/18 03:56 Chlorhexidine Gluconate (Romy-Hex 2%) 1 applic DAILY@2000 TOPIC 05/14/18 20:00 06/13/18 19:59 05/15/18 19:57 Clopidogrel Bisulfate (Plavix) 75 mg DAILY ORAL 05/15/18 09:00 06/14/18 08:59 05/16/18 08:30 Dextrose (Dextrose 50%) 25 ml Q30M PRN IV Hypoglycemia 05/13/18 21:00 06/11/18 16:59 Dextrose (Dextrose 50%) 50 ml Q30M PRN IV Hypoglycemia 05/13/18 21:00 06/11/18 16:59 Dopamine HCl/ Dextrose 250 ml @ 0 mls/hr Q24H IV 05/15/18 19:00 06/14/18 18:59 05/15/18 19:58 Enoxaparin Sodium (Lovenox) 100 mg Q24H SUBQ 05/14/18 14:00 06/12/18 13:59 05/15/18 14:24 Fentanyl Citrate 1000 mcg/Sodium Chloride 100 ml @ 0 mls/hr Q24H IV 05/15/18 22:00 05/22/18 21:59 05/16/18 12:23 Insulin Aspart (NovoLOG) BEFORE MEALS AND HS SUBQ 05/13/18 21:00 06/11/18 20:59 05/16/18 06:10 Lactulose (Cephulac) 30 gm Q8HR NG 05/14/18 14:00 06/12/18 17:59 05/16/18 14:56 Lorazepam (Ativan 2mg/ml 1ml) 2 mg Q4H PRN IV For Anxiety 05/14/18 12:00 05/21/18 11:59 05/14/18 16:38 Multivitamins (Multivitamins) 1 tab DAILY ORAL 05/17/18 09:00 06/16/18 08:59 Nitroglycerin (Ntg) 1 patch Q24H TDERMAL 05/15/18 09:00 06/14/18 08:59 05/16/18 08:37 Pantoprazole (Protonix) 40 mg EVERY 12 HOURS IVP 05/14/18 21:00 06/13/18 20:59 05/16/18 08:30 Povidone Iodine (Betadine Gretchen) 1 applic BID TOPIC 05/16/18 09:00 06/15/18 08:59 05/16/18 08:31 Rifaximin (Xifaxan) 550 mg EVERY 12 HOURS ORAL 05/13/18 21:00 05/20/18 20:59 05/16/18 08:30 Sodium Chloride 500 ml @ 999 mls/hr Q31M PRN IV For hypotension 05/14/18 01:30 06/13/18 01:29 05/14/18 06:10 Sodium Chloride 1,000 ml @ 50 mls/hr Q20H IV 05/16/18 12:45 06/15/18 12:44 05/16/18 14:56 Juice Wilkerson M.D. May 16, 2018 15:13
--- NOTE | 2018-05-16 16:23 | NUR ---
NURSE NOTES: patient remains on ventilator with saturations at 96%, with RR of 18, she remains sedated on 60mcg/min, remains on bilateral restraints for attempting to pull ET-tube, tube feeding remains at 15ml/hr.
--- NOTE | 2018-05-16 16:47 | Pulmonolgy Critical Care Note ---
Critical Care - Asmt/Plan Assessment/Plan: Pulmonary Progress Note Critical Care - Asmt/Plan Assessment/Plan: 67 y/o female w/ DM, CKD, morbid obesity admitted with b/l LE cellulitis and altered mental status. Problem List: 1. Altered mental status 2. Acute hypercapnic respiratory failure 3. Bilateral lower extremity cellulitis 4. RACHELLE on CKD 5. DM 6. Morbid obesity 7. 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, continue to monitor HR/BP Renal: check electrolytes Infectious Disease: continue antibiotics Neurologic: keep patient comfortable Prophylaxis: Heparin Disposition: keep in ICU Time Spent (Minutes): other - 45 minutes Critical Care - Objective Vital Signs Noted Status: sedated on ventilator Condition: critical HEENT: atraumatic, normocephalic Lungs: rales Heart: HR/BP unstable Abdomen: soft, non-tender Extremities: other - Edema with erythema and open ulcers/sores Decubiti: none Micro: Microbiology Date/Time Source Procedure Growth Status 05/12/18 14:30 Blood Blood Culture - Preliminary NO GROWTH AFTER 24 HOURS Resulted 05/12/18 14:15 Blood Blood Culture - Preliminary NO GROWTH AFTER 24 HOURS Resulted 05/13/18 08:45 Urine,Clean Catch Urine Culture - Preliminary NO GROWTH AFTER 24 HOURS Resulted 05/12/18 18:20 Leg Right Gram Stain - Final Resulted 05/12/18 18:20 Leg Right Wound Culture Pending Resulted 05/12/18 18:20 Leg Left Gram Stain - Final Resulted 05/12/18 18:20 Leg Left Wound Culture Pending Resulted 05/12/18 17:00 Rectum VRE Culture - Final NO VANCOMYCIN RESISTANT ENTEROCOCCUS ... Complete 05/12/18 17:00 Rectum - Final NO CARBAPENEM-RESISTANT ENTEROBACTERI... Complete Critical Care - Subjective ROS Limited/Unobtainable: Yes ICU Day: 2 Interval Events: Worsening CO2 retention despite increasing BiPAP and increased lethargy. Now mostly unresponsive. BP has been low but stable MAP 60. No fevers. Ammonia higher today. Condition: critical EKG Rhythm: Sinus Bradycardia FI02: 60 Sputum Amount: None Time of note does not reflect time patient seen Critical Care - Objective Last 24 Hour Vital Signs Date Time Temp Pulse Resp B/P (MAP) Pulse Ox O2 Delivery O2 Flow Rate FiO2 05/16/18 16:30 94 18 117/58 (77) 96 05/16/18 16:00 98.4 88 18 125/72 (89) 96 05/16/18 16:00 Mechanical Ventilator 05/16/18 16:00 60 05/16/18 15:30 93 18 116/58 (77) 96 05/16/18 15:00 87 18 137/78 (97) 95 05/16/18 14:43 99 23 60 05/16/18 14:30 94 18 114/65 (81) 96 05/16/18 14:00 97 10 137/78 (97) 96 05/16/18 13:30 98 10 127/76 (93) 96 05/16/18 13:09 100 18 60 05/16/18 13:00 99 10 144/78 (100) 94 05/16/18 12:30 99 18 134/70 (91) 96 05/16/18 12:23 18 Mechanical Ventilator 60 05/16/18 12:00 Mechanical Ventilator 05/16/18 12:00 96 05/16/18 12:00 60 05/16/18 12:00 98.3 99 18 124/68 (86) 95 05/16/18 11:30 102 18 142/67 (92) 95 05/16/18 11:13 92 18 60 05/16/18 11:00 96 18 152/65 (94) 96 05/16/18 10:30 97 18 138/72 (94) 96 05/16/18 10:00 96 18 154/77 (102) 97 05/16/18 09:30 95 18 140/61 (87) 97 05/16/18 09:01 96 18 60 05/16/18 09:00 93 18 131/60 (83) 97 05/16/18 08:37 128/81 05/16/18 08:30 93 18 132/76 (94) 97 05/16/18 08:00 60 05/16/18 08:00 Mechanical Ventilator 05/16/18 08:00 97.7 95 18 116/76 (89) 97 05/16/18 08:00 94 05/16/18 07:30 94 18 127/66 (86) 97 05/16/18 07:00 97 18 118/61 (80) 97 05/16/18 06:52 96 18 60 05/16/18 06:45 96 18 122/64 (83) 97 05/16/18 06:30 92 18 124/58 (80) 98 05/16/18 06:00 18 Mechanical Ventilator 60 05/16/18 06:00 111/62 05/16/18 06:00 91 18 111/62 (78) 96 05/16/18 05:30 91 18 119/58 (78) 96 05/16/18 05:15 92 18 109/67 (81) 97 05/16/18 05:13 90 18 60 05/16/18 05:00 18 Mechanical Ventilator 60 05/16/18 05:00 109/67 05/16/18 05:00 93 19 91/69 (76) 95 05/16/18 04:45 98 17 122/65 (84) 93 05/16/18 04:30 92 18 125/57 (79) 95 05/16/18 04:00 88 05/16/18 04:00 97.7 97 18 117/75 (89) 95 05/16/18 04:00 18 Mechanical Ventilator 60 05/16/18 04:00 113/52 05/16/18 04:00 60 05/16/18 04:00 Mechanical Ventilator 05/16/18 03:45 98 18 116/67 (83) 95 05/16/18 03:30 96 18 121/68 (85) 94 05/16/18 03:15 92 18 115/68 (84) 98 05/16/18 03:02 94 18 60 05/16/18 03:00 93 18 113/71 (85) 98 05/16/18 03:00 18 Mechanical Ventilator 60 05/16/18 03:00 115/68 05/16/18 02:30 101 18 116/63 (80) 97 05/16/18 02:00 91 18 103/54 (70) 95 05/16/18 02:00 18 Mechanical Ventilator 60 05/16/18 02:00 103/56 05/16/18 01:34 98 18 60 05/16/18 01:30 99 18 119/44 (69) 97 05/16/18 01:00 18 Mechanical Ventilator 60 05/16/18 01:00 103/53 05/16/18 01:00 100 17 106/62 (77) 95 05/16/18 00:30 105 18 141/72 (95) 96 05/16/18 00:00 Mechanical Ventilator 05/16/18 00:00 97.9 98 18 118/57 (77) 97 05/16/18 00:00 18 Mechanical Ventilator 60 05/16/18 00:00 118/57 05/16/18 00:00 98 05/16/18 00:00 60 05/15/18 23:01 103 18 60 05/15/18 23:00 18 Mechanical Ventilator 60 05/15/18 23:00 113/55 05/15/18 23:00 98 18 113/55 (74) 97 05/15/18 22:45 101 18 115/50 (71) 96 05/15/18 22:30 107 18 122/55 (77) 95 05/15/18 22:26 97.6 05/15/18 22:15 102 18 144/69 (94) 94 05/15/18 22:00 80 18 75/47 (56) 95 05/15/18 22:00 18 Mechanical Ventilator 60 05/15/18 22:00 82/30 05/15/18 21:45 89 14 82/30 (47) 97 05/15/18 21:30 122 18 170/84 (112) 95 05/15/18 21:30 18 Mechanical Ventilator 60 05/15/18 21:30 18 Mechanical Ventilator 60 05/15/18 21:17 60 05/15/18 21:15 112 18 161/74 (103) 96 05/15/18 21:08 94 18 60 05/15/18 21:00 85 18 107/61 (76) 96 05/15/18 21:00 107/61 05/15/18 20:45 88 18 88/59 (69) 98 05/15/18 20:30 87 18 89/53 (65) 97 05/15/18 20:15 93 18 100/58 (72) 99 05/15/18 20:00 Mechanical Ventilator 05/15/18 20:00 97.9 99 18 90/56 (67) 99 05/15/18 20:00 95 05/15/18 20:00 60 05/15/18 19:58 94/48 1/19/19 19:02 101 18 60 05/15/18 19:00 101 18 95/56 (69) 99 05/15/18 18:30 101 18 91/47 (62) 05/15/18 18:00 101 17 91/47 (62) 98 05/15/18 17:30 87 17 84/42 (56) 98 05/15/18 17:10 79 18 60 05/15/18 17:00 89 21 74/46 (55) 97 Accucheck: 96 Critical Care - Subjective ROS Limited/Unobtainable: Yes Condition: stable FI02: 60 Vent Support Breath Rate: 18 Vent Support Mode: AC Vent Tidal Volume: 550 Sputum Amount: Small PEEP: 5.0 PIP: 36 Tube Feeding Amount: 15 I&O: Intake and Output 05/15/18 05/16/18 19:00 07:00 Intake Total 1717.254 ml 1494.00 ml Output Total 670 ml 560 ml Balance 1047.254 ml 934.00 ml Intake Oral 0 ml IV Total 1587.254 ml 1394.00 ml Other 130 ml 100 ml Output Urine Total 670 ml 510 ml Stool Total 50 ml # Bowel Movements 2 3 ET-Tube: 7.5 ET Position: 24 Lawrence Wills MD May 16, 2018 16:47
[2018-05-16] MEDS: Ascorbic Acid 500mg tab ORAL SCH (18:02)
[2018-05-16] MEDS: DOPamine 400mg/250ml 250 ML IV SCH (18:05)
--- NOTE | 2018-05-16 19:30 | NUR ---
NURSE NOTES:Received pt orally intubated on AC mode, sedated with Fentanyl drip at 60 mcg/hr and Dopamune drip at 2 mcg/kg/min. infusing to FLORENCIO PICC line site with drsg dry and intact, pt respond to tactile stimulation and agitated at times, bilateral soft wrist restraints on for safety to avoid self extubation, Pt is obese lower extremities with drsg dry and intact upper extremities edematous with scleral edema. NGT fdg off at this time due to high residuals. pt is Afib on the monitor Bp stable at this time. Will continue to monitor.
--- NOTE | 2018-05-16 20:09 | Cardiology Progress Note ---
Assessment/Plan Assessment/Plan 1. Dyspnea most likely secondary to acute hypoxic hypercarbic respiratory failure. 2D echocardiography shows normal LV systolic function with a normal intracardiac filling pressures. 2. Right heart failure, pre-load sensitive, avoid aggressive diuretic use, evidence of RA and RV dilatation and severe RV systolic dysfunction, associated pulmonayr HTN, ? type. 3. Paroxysmal atrial fibrillation, currently sinus rhythm, continue with amiodarone and Eliquis. 4. Hypotension likely due to RV failure, digoxin may help, grim prognosis. 5. Slight elevation of troponin I level in this patient could be due to RV strain/failure or due to type 2 non-ST elevation myocardial infarction. Subjective Subjective Sinus rhythm at rate of 99. Intubated on dopamine gtt. Objective Last 24 Hour Vital Signs Date Time Temp Pulse Resp B/P (MAP) Pulse Ox O2 Delivery O2 Flow Rate FiO2 05/16/18 19:16 99 19 60 05/16/18 18:05 89/53 05/16/18 18:00 72 18 91/62 (72) 97 05/16/18 17:30 92 18 127/68 (87) 95 05/16/18 17:01 92 18 60 05/16/18 17:00 86 18 127/67 (87) 95 05/16/18 16:30 94 18 117/58 (77) 96 05/16/18 16:00 83 05/16/18 16:00 98.4 88 18 125/72 (89) 96 05/16/18 16:00 Mechanical Ventilator 05/16/18 16:00 60 05/16/18 15:30 93 18 116/58 (77) 96 05/16/18 15:00 87 18 137/78 (97) 95 05/16/18 14:43 99 23 60 05/16/18 14:30 94 18 114/65 (81) 96 05/16/18 14:00 97 10 137/78 (97) 96 05/16/18 13:30 98 10 127/76 (93) 96 05/16/18 13:09 100 18 60 05/16/18 13:00 99 10 144/78 (100) 94 05/16/18 12:30 99 18 134/70 (91) 96 05/16/18 12:23 18 Mechanical Ventilator 60 05/16/18 12:00 Mechanical Ventilator 05/16/18 12:00 96 05/16/18 12:00 60 05/16/18 12:00 98.3 99 18 124/68 (86) 95 05/16/18 11:30 102 18 142/67 (92) 95 05/16/18 11:13 92 18 60 05/16/18 11:00 96 18 152/65 (94) 96 05/16/18 10:30 97 18 138/72 (94) 96 05/16/18 10:00 96 18 154/77 (102) 97 05/16/18 09:30 95 18 140/61 (87) 97 05/16/18 09:01 96 18 60 05/16/18 09:00 93 18 131/60 (83) 97 05/16/18 08:37 128/81 05/16/18 08:30 93 18 132/76 (94) 97 05/16/18 08:00 60 05/16/18 08:00 Mechanical Ventilator 05/16/18 08:00 97.7 95 18 116/76 (89) 97 05/16/18 08:00 94 05/16/18 07:30 94 18 127/66 (86) 97 05/16/18 07:00 97 18 118/61 (80) 97 05/16/18 06:52 96 18 60 05/16/18 06:45 96 18 122/64 (83) 97 05/16/18 06:30 92 18 124/58 (80) 98 05/16/18 06:00 18 Mechanical Ventilator 60 05/16/18 06:00 111/62 05/16/18 06:00 91 18 111/62 (78) 96 05/16/18 05:30 91 18 119/58 (78) 96 05/16/18 05:15 92 18 109/67 (81) 97 05/16/18 05:13 90 18 60 05/16/18 05:00 18 Mechanical Ventilator 60 05/16/18 05:00 109/67 05/16/18 05:00 93 19 91/69 (76) 95 05/16/18 04:45 98 17 122/65 (84) 93 05/16/18 04:30 92 18 125/57 (79) 95 05/16/18 04:00 88 05/16/18 04:00 97.7 97 18 117/75 (89) 95 05/16/18 04:00 18 Mechanical Ventilator 60 05/16/18 04:00 113/52 05/16/18 04:00 60 05/16/18 04:00 Mechanical Ventilator 05/16/18 03:45 98 18 116/67 (83) 95 05/16/18 03:30 96 18 121/68 (85) 94 05/16/18 03:15 92 18 115/68 (84) 98 05/16/18 03:02 94 18 60 05/16/18 03:00 93 18 113/71 (85) 98 05/16/18 03:00 18 Mechanical Ventilator 60 05/16/18 03:00 115/68 05/16/18 02:30 101 18 116/63 (80) 97 05/16/18 02:00 91 18 103/54 (70) 95 05/16/18 02:00 18 Mechanical Ventilator 60 05/16/18 02:00 103/56 05/16/18 01:34 98 18 60 05/16/18 01:30 99 18 119/44 (69) 97 05/16/18 01:00 18 Mechanical Ventilator 60 05/16/18 01:00 103/53 05/16/18 01:00 100 17 106/62 (77) 95 05/16/18 00:30 105 18 141/72 (95) 96 05/16/18 00:00 Mechanical Ventilator 05/16/18 00:00 97.9 98 18 118/57 (77) 97 05/16/18 00:00 18 Mechanical Ventilator 60 05/16/18 00:00 118/57 05/16/18 00:00 98 05/16/18 00:00 60 05/15/18 23:01 103 18 60 05/15/18 23:00 18 Mechanical Ventilator 60 05/15/18 23:00 113/55 05/15/18 23:00 98 18 113/55 (74) 97 05/15/18 22:45 101 18 115/50 (71) 96 05/15/18 22:30 107 18 122/55 (77) 95 05/15/18 22:26 97.6 05/15/18 22:15 102 18 144/69 (94) 94 05/15/18 22:00 80 18 75/47 (56) 95 05/15/18 22:00 18 Mechanical Ventilator 60 05/15/18 22:00 82/30 05/15/18 21:45 89 14 82/30 (47) 97 05/15/18 21:30 122 18 170/84 (112) 95 05/15/18 21:30 18 Mechanical Ventilator 60 05/15/18 21:30 18 Mechanical Ventilator 60 05/15/18 21:17 60 05/15/18 21:15 112 18 161/74 (103) 96 05/15/18 21:08 94 18 60 05/15/18 21:00 85 18 107/61 (76) 96 05/15/18 21:00 107/61 05/15/18 20:45 88 18 88/59 (69) 98 05/15/18 20:30 87 18 89/53 (65) 97 05/15/18 20:15 93 18 100/58 (72) 99 Intake and Output 05/15/18 05/16/18 18:59 06:59 Intake Total 1833.004 ml 1477.25 ml Output Total 720 ml 510 ml Balance 1113.004 ml 967.25 ml Intake Oral 0 ml IV Total 1703.004 ml 1377.25 ml Other 130 ml 100 ml Output Urine Total 720 ml 510 ml # Bowel Movements 2 3 2D Echo: LVEF 55%, D-shaped septum due to RV pressure overload, Massive RA/RV size. Laboratory Tests Test 05/16/18 03:30 05/16/18 05:03 05/16/18 07:20 Urine Eosinophils None seen (NONE SEEN) Stool Occult Blood Pending White Blood Count 7.9 K/UL (4.8-10.8) Red Blood Count 4.70 M/UL (4.20-5.40) Hemoglobin 11.6 G/DL (12.0-16.0) L Hematocrit 38.5 % (37.0-47.0) Mean Corpuscular Volume 82 FL (80-99) Mean Corpuscular Hemoglobin 24.6 PG (27.0-31.0) L Mean Corpuscular Hemoglobin Concent 30.0 G/DL (32.0-36.0) L Red Cell Distribution Width 18.5 % (11.6-14.8) H Platelet Count 100 K/UL (150-450) L Mean Platelet Volume 8.3 FL (6.5-10.1) Neutrophils (%) (Auto) 79.5 % (45.0-75.0) H Lymphocytes (%) (Auto) 10.1 % (20.0-45.0) L Monocytes (%) (Auto) 8.7 % (1.0-10.0) Eosinophils (%) (Auto) 0.8 % (0.0-3.0) Basophils (%) (Auto) 0.9 % (0.0-2.0) Sodium Level 147 MMOL/L (136-145) H Potassium Level 3.4 MMOL/L (3.5-5.1) L Chloride Level 111 MMOL/L (98-107) H Carbon Dioxide Level 26 MMOL/L (21-32) Anion Gap 10 mmol/L (5-15) Blood Urea Nitrogen 47 mg/dL (7-18) H Creatinine 2.4 MG/DL (0.55-1.30) H Estimat Glomerular Filtration Rate 24.6 mL/min (>60) Glucose Level 125 MG/DL (74-106) H Uric Acid 12.3 MG/DL (2.6-7.2) H Calcium Level 8.3 MG/DL (8.5-10.1) L Phosphorus Level 3.9 MG/DL (2.5-4.9) Magnesium Level 2.0 MG/DL (1.8-2.4) Total Bilirubin 2.9 MG/DL (0.2-1.0) H Direct Bilirubin 2.2 MG/DL (0.0-0.3) H Aspartate Amino Transf (AST/SGOT) 79 U/L (15-37) H Alanine Aminotransferase (ALT/SGPT) 53 U/L (12-78) Alkaline Phosphatase 196 U/L (46-116) H Pro-B-Type Natriuretic Peptide 1870 pg/mL (0-125) H Total Protein 6.5 G/DL (6.4-8.2) Albumin 2.5 G/DL (3.4-5.0) L Globulin 4.0 g/dL Albumin/Globulin Ratio 0.6 (1.0-2.7) L Ammonia 60 umol/L (11-32) H C-Reactive Protein, Quantitative 9.0 mg/dL (0.00-0.90) H Objective HEENT: Atraumatic and normocephalic. Anicteric. Pupils are equal, round, and reactive to light and accommodation. Extraocular muscles intact. NECK: Cannot be assessed due to positive inspiratory pressure. No carotid bruit. Carotid upstroke is 2+ bilaterally. CVS: Normal S1 and S2. Regular rate and rhythm. RV heave, No murmurs, gallops , or rubs. LUNGS: Diminished breath sounds in both lungs with rhonchi bilaterally. ABDOMEN: Soft, nontender, and nondistended. No hepatosplenomegaly. Positive bowel sounds. EXTREMITIES: No evidence of edema, clubbing, or cyanosis. There is venous stasis of lower extremities with associated ulceration. Justice Erickson MD May 16, 2018 20:09
--- NOTE | 2018-05-16 20:22 | General Progress Note ---
Assessment/Plan Assessment/Plan Assessment/Plan (1) DM (diabetes mellitus) ICD Codes: E11.9 - DM (diabetes mellitus) SNOMED: 03808709 (2) Intractable abdominal pain ICD Codes: R10.9 - Unspecified abdominal pain SNOMED: 64150779 (3) Elevated transaminase level / Jaundice ICD Codes: R74.0 - Nonspecific elevation of levels of transaminase and lactic acid dehydrogenase [LDH] SNOMED: 911379793 (4) Abdominal distension ICD Codes: R14.0 - Abdominal distension (gaseous) SNOMED: 75254945 (5) Liver disease ICD Codes: K76.9 - Liver disease, unspecified SNOMED: 212140518 (6) Acute encephalopathy ICD Codes: G93.40 - Encephalopathy, unspecified SNOMED: 69664111, 520965109 (7) Hepatic encephalopathy ICD Codes: K72.90 - Hepatic failure, unspecified without coma Assessment/Plan TF trial cont lactulose, add Xifaxan Wean off of sedatives and narcotics abdominal US ordered anemia work up OB stool r/o GI bleed monitor H&H, prn transfusions bowel regime ppi fu labs, hepatitis panel will consider endoscopy pending work up, but will require cardiac clearance given elevated troponin levels. Subjective Allergies: Coded Allergies: ASPIRIN (Verified Allergy, Intermediate, Hives, 01/06/13) PENICILLINS (Verified Allergy, Intermediate, Hives, 01/06/13) Subjective seen in ICU intubated non communicative d/w bar staff Objective Last 24 Hour Vital Signs Date Time Temp Pulse Resp B/P (MAP) Pulse Ox O2 Delivery O2 Flow Rate FiO2 05/16/18 19:16 99 19 60 05/16/18 18:05 89/53 05/16/18 18:00 72 18 91/62 (72) 97 05/16/18 17:30 92 18 127/68 (87) 95 05/16/18 17:01 92 18 60 05/16/18 17:00 86 18 127/67 (87) 95 05/16/18 16:30 94 18 117/58 (77) 96 05/16/18 16:00 83 05/16/18 16:00 98.4 88 18 125/72 (89) 96 05/16/18 16:00 Mechanical Ventilator 05/16/18 16:00 60 05/16/18 15:30 93 18 116/58 (77) 96 05/16/18 15:00 87 18 137/78 (97) 95 05/16/18 14:43 99 23 60 05/16/18 14:30 94 18 114/65 (81) 96 05/16/18 14:00 97 10 137/78 (97) 96 05/16/18 13:30 98 10 127/76 (93) 96 05/16/18 13:09 100 18 60 05/16/18 13:00 99 10 144/78 (100) 94 05/16/18 12:30 99 18 134/70 (91) 96 05/16/18 12:23 18 Mechanical Ventilator 60 05/16/18 12:00 Mechanical Ventilator 05/16/18 12:00 96 05/16/18 12:00 60 05/16/18 12:00 98.3 99 18 124/68 (86) 95 05/16/18 11:30 102 18 142/67 (92) 95 05/16/18 11:13 92 18 60 05/16/18 11:00 96 18 152/65 (94) 96 05/16/18 10:30 97 18 138/72 (94) 96 05/16/18 10:00 96 18 154/77 (102) 97 05/16/18 09:30 95 18 140/61 (87) 97 05/16/18 09:01 96 18 60 05/16/18 09:00 93 18 131/60 (83) 97 05/16/18 08:37 128/81 05/16/18 08:30 93 18 132/76 (94) 97 05/16/18 08:00 60 05/16/18 08:00 Mechanical Ventilator 05/16/18 08:00 97.7 95 18 116/76 (89) 97 05/16/18 08:00 94 05/16/18 07:30 94 18 127/66 (86) 97 05/16/18 07:00 97 18 118/61 (80) 97 05/16/18 06:52 96 18 60 05/16/18 06:45 96 18 122/64 (83) 97 05/16/18 06:30 92 18 124/58 (80) 98 05/16/18 06:00 18 Mechanical Ventilator 60 05/16/18 06:00 111/62 05/16/18 06:00 91 18 111/62 (78) 96 05/16/18 05:30 91 18 119/58 (78) 96 05/16/18 05:15 92 18 109/67 (81) 97 05/16/18 05:13 90 18 60 05/16/18 05:00 18 Mechanical Ventilator 60 05/16/18 05:00 109/67 05/16/18 05:00 93 19 91/69 (76) 95 05/16/18 04:45 98 17 122/65 (84) 93 05/16/18 04:30 92 18 125/57 (79) 95 05/16/18 04:00 88 05/16/18 04:00 97.7 97 18 117/75 (89) 95 05/16/18 04:00 18 Mechanical Ventilator 60 05/16/18 04:00 113/52 05/16/18 04:00 60 05/16/18 04:00 Mechanical Ventilator 05/16/18 03:45 98 18 116/67 (83) 95 05/16/18 03:30 96 18 121/68 (85) 94 05/16/18 03:15 92 18 115/68 (84) 98 05/16/18 03:02 94 18 60 05/16/18 03:00 93 18 113/71 (85) 98 05/16/18 03:00 18 Mechanical Ventilator 60 05/16/18 03:00 115/68 05/16/18 02:30 101 18 116/63 (80) 97 05/16/18 02:00 91 18 103/54 (70) 95 05/16/18 02:00 18 Mechanical Ventilator 60 05/16/18 02:00 103/56 05/16/18 01:34 98 18 60 05/16/18 01:30 99 18 119/44 (69) 97 05/16/18 01:00 18 Mechanical Ventilator 60 05/16/18 01:00 103/53 05/16/18 01:00 100 17 106/62 (77) 95 05/16/18 00:30 105 18 141/72 (95) 96 05/16/18 00:00 Mechanical Ventilator 05/16/18 00:00 97.9 98 18 118/57 (77) 97 05/16/18 00:00 18 Mechanical Ventilator 60 05/16/18 00:00 118/57 05/16/18 00:00 98 1/20/19 00:00 60 05/15/18 23:01 103 18 60 05/15/18 23:00 18 Mechanical Ventilator 60 05/15/18 23:00 113/55 05/15/18 23:00 98 18 113/55 (74) 97 05/15/18 22:45 101 18 115/50 (71) 96 05/15/18 22:30 107 18 122/55 (77) 95 05/15/18 22:26 97.6 05/15/18 22:15 102 18 144/69 (94) 94 05/15/18 22:00 80 18 75/47 (56) 95 05/15/18 22:00 18 Mechanical Ventilator 60 05/15/18 22:00 82/30 05/15/18 21:45 89 14 82/30 (47) 97 05/15/18 21:30 122 18 170/84 (112) 95 05/15/18 21:30 18 Mechanical Ventilator 60 05/15/18 21:30 18 Mechanical Ventilator 60 05/15/18 21:17 60 05/15/18 21:15 112 18 161/74 (103) 96 05/15/18 21:08 94 18 60 05/15/18 21:00 85 18 107/61 (76) 96 05/15/18 21:00 107/61 05/15/18 20:45 88 18 88/59 (69) 98 05/15/18 20:30 87 18 89/53 (65) 97 Intake and Output 05/15/18 05/16/18 18:59 06:59 Intake Total 1833.004 ml 1477.25 ml Output Total 720 ml 510 ml Balance 1113.004 ml 967.25 ml Intake Oral 0 ml IV Total 1703.004 ml 1377.25 ml Other 130 ml 100 ml Output Urine Total 720 ml 510 ml # Bowel Movements 2 3 Laboratory Tests 05/16/18 03:30: Urine Eosinophils None seen, Stool Occult Blood [Pending] 05/16/18 05:03: White Blood Count 7.9, Red Blood Count 4.70, Hemoglobin 11.6L, Hematocrit 38.5, Mean Corpuscular Volume 82, Mean Corpuscular Hemoglobin 24.6L, Mean Corpuscular Hemoglobin Concent 30.0L, Red Cell Distribution Width 18.5H, Platelet Count 100L , Mean Platelet Volume 8.3, Neutrophils (%) (Auto) 79.5H, Lymphocytes (%) (Auto ) 10.1L, Monocytes (%) (Auto) 8.7, Eosinophils (%) (Auto) 0.8, Basophils (%) ( Auto) 0.9, Sodium Level 147H, Potassium Level 3.4L, Chloride Level 111H, Carbon Dioxide Level 26, Anion Gap 10, Blood Urea Nitrogen 47H, Creatinine 2.4H, Estimat Glomerular Filtration Rate 24.6, Glucose Level 125H, Uric Acid 12.3H, Calcium Level 8.3L, Phosphorus Level 3.9, Magnesium Level 2.0, Total Bilirubin 2.9H, Direct Bilirubin 2.2H, Aspartate Amino Transf (AST/SGOT) 79H, Alanine Aminotransferase (ALT/SGPT) 53, Alkaline Phosphatase 196H, Pro-B-Type Natriuretic Peptide 1870H, Total Protein 6.5, Albumin 2.5L, Globulin 4.0, Albumin/Globulin Ratio 0.6L 05/16/18 07:20: Ammonia 60H, C-Reactive Protein, Quantitative 9.0H Height (Feet): 5 Height (Inches): 3.00 Weight (Pounds): 341 Objective Obese AA woman NCAT (+) ETT and OGT coarse BS RR abd obese (+) edema / anasarca (+) leg dressing Bry Mata MD May 16, 2018 20:22
[2018-05-16] MEDS: Dyna-Hex 2% Top Sol 2oz TOPIC SCH (20:24)
[2018-05-16] MEDS: Atorvastatin 20mg tab ORAL SCH (20:55)
--- NOTE | 2018-05-16 21:00 | NUR ---
NURSE NOTES:accucheck 99mg/dl- Insulin coverage on hold.
--- NOTE | 2018-05-16 22:54 | NUR ---
NURSE NOTES:Turned to sides for comfort. On p200 mattress.
--- NOTE | 2018-05-16 23:17 | NUR ---
NURSE NOTES:Turned off Dopamine drip . Bp 151/94
--- NOTE | 2018-05-16 23:19 | Cardiology Progress Note ---
Assessment/Plan Assessment/Plan 1. Dyspnea most likely secondary to acute hypoxic hypercarbic respiratory failure. 2D echocardiography shows normal LV systolic function with a normal intracardiac filling pressures. 2. Right heart failure, pre-load sensitive, avoid aggressive diuretic use, evidence of RA and RV dilatation and severe RV systolic dysfunction, associated pulmonayr HTN, ? type. 3. Paroxysmal atrial fibrillation, currently sinus rhythm, continue with amiodarone and Eliquis. 4. Hypotension likely due to RV failure, digoxin may help, grim prognosis. 5. Slight elevation of troponin I level in this patient could be due to RV strain/failure or due to type 2 non-ST elevation myocardial infarction. Subjective Subjective Sinus rhythm at rate of 99. Intubated on dopamine gtt. Objective Last 24 Hour Vital Signs Date Time Temp Pulse Resp B/P (MAP) Pulse Ox O2 Delivery O2 Flow Rate FiO2 05/16/18 23:07 101 21 60 05/16/18 20:59 104 18 60 05/16/18 20:00 60 05/16/18 19:16 99 19 60 05/16/18 18:05 89/53 05/16/18 18:00 72 18 91/62 (72) 97 05/16/18 17:30 92 18 127/68 (87) 95 05/16/18 17:01 92 18 60 05/16/18 17:00 86 18 127/67 (87) 95 05/16/18 16:30 94 18 117/58 (77) 96 05/16/18 16:00 83 05/16/18 16:00 98.4 88 18 125/72 (89) 96 05/16/18 16:00 Mechanical Ventilator 05/16/18 16:00 60 05/16/18 15:30 93 18 116/58 (77) 96 05/16/18 15:00 87 18 137/78 (97) 95 05/16/18 14:43 99 23 60 05/16/18 14:30 94 18 114/65 (81) 96 05/16/18 14:00 97 10 137/78 (97) 96 05/16/18 13:30 98 10 127/76 (93) 96 05/16/18 13:09 100 18 60 05/16/18 13:00 99 10 144/78 (100) 94 05/16/18 12:30 99 18 134/70 (91) 96 05/16/18 12:23 18 Mechanical Ventilator 60 05/16/18 12:00 Mechanical Ventilator 05/16/18 12:00 96 05/16/18 12:00 60 05/16/18 12:00 98.3 99 18 124/68 (86) 95 05/16/18 11:30 102 18 142/67 (92) 95 05/16/18 11:13 92 18 60 05/16/18 11:00 96 18 152/65 (94) 96 05/16/18 10:30 97 18 138/72 (94) 96 05/16/18 10:00 96 18 154/77 (102) 97 05/16/18 09:30 95 18 140/61 (87) 97 05/16/18 09:01 96 18 60 05/16/18 09:00 93 18 131/60 (83) 97 05/16/18 08:37 128/81 05/16/18 08:30 93 18 132/76 (94) 97 05/16/18 08:00 60 05/16/18 08:00 Mechanical Ventilator 05/16/18 08:00 97.7 95 18 116/76 (89) 97 05/16/18 08:00 94 05/16/18 07:30 94 18 127/66 (86) 97 05/16/18 07:00 97 18 118/61 (80) 97 05/16/18 06:52 96 18 60 05/16/18 06:45 96 18 122/64 (83) 97 05/16/18 06:30 92 18 124/58 (80) 98 05/16/18 06:00 18 Mechanical Ventilator 60 05/16/18 06:00 111/62 05/16/18 06:00 91 18 111/62 (78) 96 05/16/18 05:30 91 18 119/58 (78) 96 05/16/18 05:15 92 18 109/67 (81) 97 05/16/18 05:13 90 18 60 05/16/18 05:00 18 Mechanical Ventilator 60 05/16/18 05:00 109/67 05/16/18 05:00 93 19 91/69 (76) 95 05/16/18 04:45 98 17 122/65 (84) 93 05/16/18 04:30 92 18 125/57 (79) 95 05/16/18 04:00 88 05/16/18 04:00 97.7 97 18 117/75 (89) 95 05/16/18 04:00 18 Mechanical Ventilator 60 05/16/18 04:00 113/52 05/16/18 04:00 60 05/16/18 04:00 Mechanical Ventilator 05/16/18 03:45 98 18 116/67 (83) 95 05/16/18 03:30 96 18 121/68 (85) 94 05/16/18 03:15 92 18 115/68 (84) 98 05/16/18 03:02 94 18 60 05/16/18 03:00 93 18 113/71 (85) 98 05/16/18 03:00 18 Mechanical Ventilator 60 05/16/18 03:00 115/68 05/16/18 02:30 101 18 116/63 (80) 97 05/16/18 02:00 91 18 103/54 (70) 95 05/16/18 02:00 18 Mechanical Ventilator 60 05/16/18 02:00 103/56 05/16/18 01:34 98 18 60 05/16/18 01:30 99 18 119/44 (69) 97 05/16/18 01:00 18 Mechanical Ventilator 60 05/16/18 01:00 103/53 05/16/18 01:00 100 17 106/62 (77) 95 05/16/18 00:30 105 18 141/72 (95) 96 05/16/18 00:00 Mechanical Ventilator 05/16/18 00:00 97.9 98 18 118/57 (77) 97 05/16/18 00:00 18 Mechanical Ventilator 60 05/16/18 00:00 118/57 05/16/18 00:00 98 05/16/18 00:00 60 Intake and Output 05/15/18 05/16/18 18:59 06:59 Intake Total 1833.004 ml 1477.25 ml Output Total 720 ml 510 ml Balance 1113.004 ml 967.25 ml Intake Oral 0 ml IV Total 1703.004 ml 1377.25 ml Other 130 ml 100 ml Output Urine Total 720 ml 510 ml # Bowel Movements 2 3 Laboratory Tests Test 05/16/18 03:30 05/16/18 05:03 05/16/18 07:20 Urine Eosinophils None seen (NONE SEEN) Stool Occult Blood Pending White Blood Count 7.9 K/UL (4.8-10.8) Red Blood Count 4.70 M/UL (4.20-5.40) Hemoglobin 11.6 G/DL (12.0-16.0) L Hematocrit 38.5 % (37.0-47.0) Mean Corpuscular Volume 82 FL (80-99) Mean Corpuscular Hemoglobin 24.6 PG (27.0-31.0) L Mean Corpuscular Hemoglobin Concent 30.0 G/DL (32.0-36.0) L Red Cell Distribution Width 18.5 % (11.6-14.8) H Platelet Count 100 K/UL (150-450) L Mean Platelet Volume 8.3 FL (6.5-10.1) Neutrophils (%) (Auto) 79.5 % (45.0-75.0) H Lymphocytes (%) (Auto) 10.1 % (20.0-45.0) L Monocytes (%) (Auto) 8.7 % (1.0-10.0) Eosinophils (%) (Auto) 0.8 % (0.0-3.0) Basophils (%) (Auto) 0.9 % (0.0-2.0) Sodium Level 147 MMOL/L (136-145) H Potassium Level 3.4 MMOL/L (3.5-5.1) L Chloride Level 111 MMOL/L (98-107) H Carbon Dioxide Level 26 MMOL/L (21-32) Anion Gap 10 mmol/L (5-15) Blood Urea Nitrogen 47 mg/dL (7-18) H Creatinine 2.4 MG/DL (0.55-1.30) H Estimat Glomerular Filtration Rate 24.6 mL/min (>60) Glucose Level 125 MG/DL (74-106) H Uric Acid 12.3 MG/DL (2.6-7.2) H Calcium Level 8.3 MG/DL (8.5-10.1) L Phosphorus Level 3.9 MG/DL (2.5-4.9) Magnesium Level 2.0 MG/DL (1.8-2.4) Total Bilirubin 2.9 MG/DL (0.2-1.0) H Direct Bilirubin 2.2 MG/DL (0.0-0.3) H Aspartate Amino Transf (AST/SGOT) 79 U/L (15-37) H Alanine Aminotransferase (ALT/SGPT) 53 U/L (12-78) Alkaline Phosphatase 196 U/L (46-116) H Pro-B-Type Natriuretic Peptide 1870 pg/mL (0-125) H Total Protein 6.5 G/DL (6.4-8.2) Albumin 2.5 G/DL (3.4-5.0) L Globulin 4.0 g/dL Albumin/Globulin Ratio 0.6 (1.0-2.7) L Ammonia 60 umol/L (11-32) H C-Reactive Protein, Quantitative 9.0 mg/dL (0.00-0.90) H Objective HEENT: Atraumatic and normocephalic. Anicteric. Pupils are equal, round, and reactive to light and accommodation. Extraocular muscles intact. NECK: Cannot be assessed due to positive inspiratory pressure. No carotid bruit. Carotid upstroke is 2+ bilaterally. CVS: Normal S1 and S2. Regular rate and rhythm. RV heave, No murmurs, gallops , or rubs. LUNGS: Diminished breath sounds in both lungs with rhonchi bilaterally. ABDOMEN: Soft, nontender, and nondistended. No hepatosplenomegaly. Positive bowel sounds. EXTREMITIES: No evidence of edema, clubbing, or cyanosis. There is venous stasis of lower extremities with associated ulceration. Justice Erickson MD May 16, 2018 23:19
[2018-05-17] VITALS (49 sets, daily range): BP systolic 63–187; BP diastolic 18–98
[2018-05-17] MEDS: Aztreonam Inj 1 GM in D5W 55 ML IVPB SCH ×2 (00:19→09:42)
--- NOTE | 2018-05-17 02:00 | NUR ---
NURSE NOTES:Pt was transferred to a new big boy bed with p200 mattress tolerating well.
--- NOTE | 2018-05-17 04:00 | NUR ---
NURSE NOTES:Complete bath with bed changed done.
[2018-05-17] MEDS: ceFAZolin 2gm/50ml Premix 50 ML IVPB SCH (04:20)
--- NOTE | 2018-05-17 06:00 | NUR ---
NURSE NOTES:Tolerating fdg well. Bp still labile. Dopamine on stand by.
[2018-05-17 06:07] LABS: BASOPHILS % (AUTO) 1.7 % (0.0-2.0); HEMATOCRIT 37.8 % (37.0-47.0); HEMOGLOBIN 11.2 G/DL (12.0-16.0); LYMPHOCYTES % (AUTO) 6.7 % (20.0-45.0); MEAN CORPUSCULAR VOLUME 83 FL (80-99); MONOCYTES % (AUTO) 6.6 % (1.0-10.0); NEUTROPHILS % (AUTO) 83.9 % (45.0-75.0); PLATELET COUNT 164 K/UL (150-450); RED BLOOD COUNT 4.56 M/UL (4.20-5.40); RED CELL DISTRIBUTION WIDTH 18.3 % (11.6-14.8); WHITE BLOOD COUNT 10.1 K/UL (4.8-10.8)
[2018-05-17] MEDS: Lactulose 10gm/15ml UDC NG SCH ×3 (06:07→22:12)
[2018-05-17] MEDS: fentaNYL Citrate 1000 MCG in NS 100ml IV SCH ×2 (06:08→20:21)
[2018-05-17] MEDS: NovoLOG Insulin Flexpen SUBQ SCH ×4 (06:17→21:16)
[2018-05-17 06:29] LABS: ALANINE AMINOTRANSFERASE 39 U/L (12-78); ALBUMIN 2.1 G/DL (3.4-5.0); ALBUMIN/GLOBULIN RATIO 0.5 (1.0-2.7); ALKALINE PHOSPHATASE 189 U/L (46-116); ANION GAP 10 mmol/L (5-15); ASPARTATE AMINO TRANSFERASE 52 U/L (15-37); BILIRUBIN,TOTAL 2.5 MG/DL (0.2-1.0); BLOOD UREA NITROGEN 43 mg/dL (7-18); CARBON DIOXIDE 25 MMOL/L (21-32); CHLORIDE 111 MMOL/L (98-107); CREATININE 1.8 MG/DL (0.55-1.30); GAMMA GLUTAMYL TRANSPEPTIDASE 131 U/L (5-85); PHOSPHORUS 3.4 MG/DL (2.5-4.9); POTASSIUM 3.5 MMOL/L (3.5-5.1); SODIUM 146 MMOL/L (136-145)
[2018-05-17 06:37] LABS: BILIRUBIN,DIRECT 1.7 MG/DL (0.0-0.3)
--- NOTE | 2018-05-17 06:40 | NUR ---
RESPIRATORY NOTE: Received Patient intubated with 7.5 ETT @ 24cm lips line, secured by anchor fast on Vent settings of ACVC RR 18, VT 550, FIO2 60%, PEEP +5, saturates at 94%. pt is tolerating well the vent setting. Vinod rhonchi breath sounds, Sxn small amount of thick brown red secretions. Vent plugged into red outlet. Alarms are on and audible. Ambu bag is at bedside. Will continue to monitor throughout the day.
--- NOTE | 2018-05-17 07:30 | NUR ---
NURSE NOTES: Received patient and the change of shift from out going nurse Aria RN. Patient is on ventilator and setting AC 18, TV 550, FiO2 60% and peep 5. IVF 1/2 NS is infusing @ 50ml/hr and Fentanyl drip @ 60mcg/hr. OGT feeding Glucerna 1.5 is infusing @ 30ml/HR and no residual. PICC line with double lumens intact on left upper arm. Anaya catheter and rectal tube intact in place. Current HR 83 and B/P 106/57.
--- NOTE | 2018-05-17 07:40 | NUR ---
HAND-OFF: Report given to Gómez Hebert using sbar.
--- NOTE | 2018-05-17 09:30 | NUR ---
NURSE NOTES: HR 80, Oxygen saturation 98%, resp 18 and B/P 94/60. Able to respond open eyes with verbal stimuli. No s/s of acute distress.
[2018-05-17] MEDS: Nitroglycerin Patch 0.4mg TDERMAL SCH (09:43)
[2018-05-17] MEDS: Allopurinol 100mg Tab NG SCH (09:44)
[2018-05-17] MEDS: Ascorbic Acid 500mg tab ORAL SCH ×2 (09:44→17:51)
[2018-05-17] MEDS: Betadine 4oz Bottle TOPIC SCH ×2 (09:44→17:51)
[2018-05-17] MEDS: Pantoprazole Inj IVP SCH ×2 (09:44→21:10)
--- NOTE | 2018-05-17 11:04 | Nephrology Progress Note ---
Assessment/Plan Problem List: (1) ARF (acute renal failure) (2) Cellulitis of both lower extremities (3) Venous stasis ulcers of both lower extremities (4) DM (diabetes mellitus) (5) CKD (chronic kidney disease) (6) Morbid (severe) obesity due to excess calories (7) Acute hypoxemic respiratory failure Assessment Diabetic Nephropathy acute renal failure super imposed on CKD Encephalopathy, CO2 retainer, respiratory failure acute Obesity High Trop High Bili UTI Bilateral LE cellulitis Anemia Plan pulmonary support / Mechanical ventilation Anaya pressors as needed Urine studies Avoid nephrotoxics monitor renal parameters 2D echo Ej Fx 55% kidney WESLEY Per ID , Pulm... meds IV or OG tube Avoid mind altering meds per orders Subjective ROS Limited/Unobtainable: Yes Objective Objective Last 24 Hour Vital Signs Date Time Temp Pulse Resp B/P (MAP) Pulse Ox O2 Delivery O2 Flow Rate FiO2 05/17/18 10:00 76 18 104/66 (79) 100 05/17/18 09:43 98/64 05/17/18 09:30 80 18 94/60 (71) 98 05/17/18 09:00 77 18 98/55 (69) 98 05/17/18 08:45 77 18 60 05/17/18 08:30 78 18 76/40 (52) 98 05/17/18 08:00 Mechanical Ventilator 05/17/18 08:00 78 05/17/18 08:00 60 05/17/18 08:00 98.3 92 19 185/98 (127) 99 05/17/18 07:00 92 17 152/61 (91) 99 05/17/18 07:00 90 18 187/82 (117) 95 05/17/18 07:00 18 Mechanical Ventilator 60 05/17/18 06:40 80 18 60 05/17/18 06:30 90 18 100/59 (73) 95 05/17/18 06:08 18 60 05/17/18 06:00 90 17 85/59 (68) 95 05/17/18 05:30 137 17 160/96 (117) 95 05/17/18 05:04 77 18 60 05/17/18 05:00 18 Mechanical Ventilator 60 05/17/18 05:00 118 17 153/96 (115) 95 05/17/18 04:30 91 19 109/52 (71) 95 05/17/18 04:00 Mechanical Ventilator 05/17/18 04:00 98.0 91 19 88/58 (68) 95 05/17/18 04:00 86 05/17/18 04:00 18 60 05/17/18 04:00 60 05/17/18 03:30 128 19 160/85 (110) 95 05/17/18 03:00 82 19 140/83 (102) 98 05/17/18 03:00 20 Mechanical Ventilator 60 05/17/18 02:47 89 18 60 05/17/18 02:30 83 19 137/83 (101) 98 05/17/18 02:00 18 Mechanical Ventilator 60 05/17/18 02:00 80 17 101/70 (80) 99 05/17/18 01:30 79 18 111/58 (75) 98 05/17/18 01:01 84 18 60 05/17/18 01:00 77 18 97/58 (71) 95 05/17/18 01:00 18 Mechanical Ventilator 60 05/17/18 00:30 85 18 102/64 (77) 95 05/17/18 00:00 60 05/17/18 00:00 81 05/17/18 00:00 Mechanical Ventilator 05/17/18 00:00 98.2 81 18 108/54 (72) 95 05/16/18 23:30 81 18 108/54 (72) 95 05/16/18 23:07 101 21 60 05/16/18 23:00 137/73 05/16/18 23:00 99 18 140/79 (99) 95 05/16/18 22:30 100 18 139/79 (99) 95 05/16/18 22:00 158/94 05/16/18 22:00 106 17 143/85 (104) 95 05/16/18 21:30 109 17 152/101 (118) 94 05/16/18 21:00 106 17 143/85 (104) 95 05/16/18 21:00 143/85 05/16/18 20:59 104 18 60 05/16/18 20:30 102 18 154/84 (107) 95 05/16/18 20:00 60 05/16/18 20:00 77 05/16/18 20:00 135/67 05/16/18 20:00 Mechanical Ventilator 05/16/18 20:00 98.6 72 18 91/62 (72) 97 05/16/18 20:00 101 18 135/67 (89) 97 05/16/18 19:30 100 18 144/85 (104) 93 05/16/18 19:16 99 19 60 05/16/18 18:05 89/53 05/16/18 18:00 72 18 91/62 (72) 97 05/16/18 17:30 92 18 127/68 (87) 95 05/16/18 17:01 92 18 60 05/16/18 17:00 86 18 127/67 (87) 95 05/16/18 16:30 94 18 117/58 (77) 96 05/16/18 16:00 83 05/16/18 16:00 98.4 88 18 125/72 (89) 96 05/16/18 16:00 Mechanical Ventilator 05/16/18 16:00 60 05/16/18 15:30 93 18 116/58 (77) 96 05/16/18 15:00 87 18 137/78 (97) 95 05/16/18 14:43 99 23 60 05/16/18 14:30 94 18 114/65 (81) 96 05/16/18 14:00 97 10 137/78 (97) 96 05/16/18 13:30 98 10 127/76 (93) 96 05/16/18 13:09 100 18 60 05/16/18 13:00 99 10 144/78 (100) 94 05/16/18 12:30 99 18 134/70 (91) 96 05/16/18 12:23 18 Mechanical Ventilator 60 05/16/18 12:00 Mechanical Ventilator 05/16/18 12:00 96 05/16/18 12:00 60 05/16/18 12:00 98.3 99 18 124/68 (86) 95 05/16/18 11:30 102 18 142/67 (92) 95 05/16/18 11:13 92 18 60 Intake and Output 05/16/18 05/17/18 19:00 07:00 Intake Total 1559.25 ml 299.00 ml Output Total 765 ml 1380 ml Balance 794.25 ml -1081.00 ml Intake Oral 75 ml Free Water 110 ml IV Total 1294.25 ml 109.00 ml Tube Feeding 60 ml 190 ml Other 20 ml Output Urine Total 765 ml 880 ml Stool Total 500 ml # Bowel Movements 3 3 Laboratory Tests 05/17/18 04:40: White Blood Count 10.1, Red Blood Count 4.56, Hemoglobin 11.2L, Hematocrit 37.8 , Mean Corpuscular Volume 83, Mean Corpuscular Hemoglobin 24.6L, Mean Corpuscular Hemoglobin Concent 29.7L, Red Cell Distribution Width 18.3H, Platelet Count 164#, Mean Platelet Volume 7.4, Neutrophils (%) (Auto) 83.9H, Lymphocytes (%) (Auto) 6.7L, Monocytes (%) (Auto) 6.6, Eosinophils (%) (Auto) 1.0, Basophils (%) (Auto) 1.7, Sodium Level 146H, Potassium Level 3.5, Chloride Level 111H, Carbon Dioxide Level 25, Anion Gap 10, Blood Urea Nitrogen 43H, Creatinine 1.8H, Estimat Glomerular Filtration Rate 34.3, Glucose Level 100, Uric Acid 12.3H, Calcium Level 9.0, Phosphorus Level 3.4, Magnesium Level 2.1, Total Bilirubin 2.5H, Direct Bilirubin 1.7H, Gamma Glutamyl Transpeptidase 131H , Aspartate Amino Transf (AST/SGOT) 52H, Alanine Aminotransferase (ALT/SGPT) 39 , Alkaline Phosphatase 189H, Pro-B-Type Natriuretic Peptide 2004H, Total Protein 6.0L, Albumin 2.1L, Globulin 3.9, Albumin/Globulin Ratio 0.5L Height (Feet): 5 Height (Inches): 3.00 Weight (Pounds): 323 General Appearance: no apparent distress Cardiovascular: normal rate Respiratory/Chest: decreased breath sounds Objective no change Tr Strange MD May 17, 2018 11:04
--- NOTE | 2018-05-17 11:13 | GI Progress Note ---
Assessment/Plan Problems: (1) DM (diabetes mellitus) ICD Codes: E11.9 - DM (diabetes mellitus) SNOMED: 85961875 (2) Intractable abdominal pain ICD Codes: R10.9 - Unspecified abdominal pain SNOMED: 07853791 (3) Elevated transaminase level ICD Codes: R74.0 - Nonspecific elevation of levels of transaminase and lactic acid dehydrogenase [LDH] SNOMED: 324840192 (4) Abdominal distension ICD Codes: R14.0 - Abdominal distension (gaseous) SNOMED: 06273896 (5) Liver disease ICD Codes: K76.9 - Liver disease, unspecified SNOMED: 509912457 (6) Acute encephalopathy ICD Codes: G93.40 - Encephalopathy, unspecified SNOMED: 65117584, 323748159 (7) Hepatic encephalopathy ICD Codes: K72.90 - Hepatic failure, unspecified without coma SNOMED: 23406629 Status: unchanged Status Narrative Discussed with Dr. Paul. Assessment/Plan OB stool negative hepatitis panel negative TF trial, tolerating cont lactulose, add Xifaxan Wean off of sedatives and narcotics abdominal US ordered monitor H&H, prn transfusions rectal tube bowel regime ppi fu labs will consider endoscopy pending work up, but will require cardiac clearance given elevated troponin levels. The patient was seen and examined at bedside and all new and available data was reviewed in the patients chart. I agree with the above findings, impression and plan. (Patient seen earlier today. Signature stamp does not reflect patient encounter time.). - Robert Paul MD Subjective Subjective limited Objective Last 24 Hour Vital Signs Date Time Temp Pulse Resp B/P (MAP) Pulse Ox O2 Delivery O2 Flow Rate FiO2 05/17/18 10:00 76 18 104/66 (79) 100 05/17/18 09:43 98/64 05/17/18 09:30 80 18 94/60 (71) 98 05/17/18 09:00 77 18 98/55 (69) 98 05/17/18 08:45 77 18 60 05/17/18 08:30 78 18 76/40 (52) 98 05/17/18 08:00 Mechanical Ventilator 05/17/18 08:00 78 05/17/18 08:00 60 05/17/18 08:00 98.3 92 19 185/98 (127) 99 05/17/18 07:00 92 17 152/61 (91) 99 05/17/18 07:00 90 18 187/82 (117) 95 05/17/18 07:00 18 Mechanical Ventilator 60 05/17/18 06:40 80 18 60 05/17/18 06:30 90 18 100/59 (73) 95 05/17/18 06:08 18 60 05/17/18 06:00 90 17 85/59 (68) 95 05/17/18 05:30 137 17 160/96 (117) 95 05/17/18 05:04 77 18 60 05/17/18 05:00 18 Mechanical Ventilator 60 05/17/18 05:00 118 17 153/96 (115) 95 05/17/18 04:30 91 19 109/52 (71) 95 05/17/18 04:00 Mechanical Ventilator 05/17/18 04:00 98.0 91 19 88/58 (68) 95 05/17/18 04:00 86 05/17/18 04:00 18 60 05/17/18 04:00 60 05/17/18 03:30 128 19 160/85 (110) 95 05/17/18 03:00 82 19 140/83 (102) 98 05/17/18 03:00 20 Mechanical Ventilator 60 05/17/18 02:47 89 18 60 05/17/18 02:30 83 19 137/83 (101) 98 05/17/18 02:00 18 Mechanical Ventilator 60 05/17/18 02:00 80 17 101/70 (80) 99 05/17/18 01:30 79 18 111/58 (75) 98 05/17/18 01:01 84 18 60 05/17/18 01:00 77 18 97/58 (71) 95 05/17/18 01:00 18 Mechanical Ventilator 60 05/17/18 00:30 85 18 102/64 (77) 95 05/17/18 00:00 60 05/17/18 00:00 81 05/17/18 00:00 Mechanical Ventilator 05/17/18 00:00 98.2 81 18 108/54 (72) 95 05/16/18 23:30 81 18 108/54 (72) 95 05/16/18 23:07 101 21 60 05/16/18 23:00 137/73 05/16/18 23:00 99 18 140/79 (99) 95 05/16/18 22:30 100 18 139/79 (99) 95 05/16/18 22:00 158/94 05/16/18 22:00 106 17 143/85 (104) 95 05/16/18 21:30 109 17 152/101 (118) 94 05/16/18 21:00 106 17 143/85 (104) 95 05/16/18 21:00 143/85 05/16/18 20:59 104 18 60 05/16/18 20:30 102 18 154/84 (107) 95 05/16/18 20:00 60 05/16/18 20:00 77 05/16/18 20:00 135/67 05/16/18 20:00 Mechanical Ventilator 05/16/18 20:00 98.6 72 18 91/62 (72) 97 05/16/18 20:00 101 18 135/67 (89) 97 05/16/18 19:30 100 18 144/85 (104) 93 05/16/18 19:16 99 19 60 05/16/18 18:05 89/53 05/16/18 18:00 72 18 91/62 (72) 97 05/16/18 17:30 92 18 127/68 (87) 95 05/16/18 17:01 92 18 60 05/16/18 17:00 86 18 127/67 (87) 95 05/16/18 16:30 94 18 117/58 (77) 96 05/16/18 16:00 83 05/16/18 16:00 98.4 88 18 125/72 (89) 96 05/16/18 16:00 Mechanical Ventilator 05/16/18 16:00 60 05/16/18 15:30 93 18 116/58 (77) 96 05/16/18 15:00 87 18 137/78 (97) 95 05/16/18 14:43 99 23 60 05/16/18 14:30 94 18 114/65 (81) 96 05/16/18 14:00 97 10 137/78 (97) 96 05/16/18 13:30 98 10 127/76 (93) 96 05/16/18 13:09 100 18 60 05/16/18 13:00 99 10 144/78 (100) 94 05/16/18 12:30 99 18 134/70 (91) 96 05/16/18 12:23 18 Mechanical Ventilator 60 05/16/18 12:00 Mechanical Ventilator 05/16/18 12:00 96 05/16/18 12:00 60 05/16/18 12:00 98.3 99 18 124/68 (86) 95 05/16/18 11:30 102 18 142/67 (92) 95 05/16/18 11:13 92 18 60 Intake and Output 05/16/18 05/17/18 19:00 07:00 Intake Total 1559.25 ml 299.00 ml Output Total 765 ml 1380 ml Balance 794.25 ml -1081.00 ml Intake Oral 75 ml Free Water 110 ml IV Total 1294.25 ml 109.00 ml Tube Feeding 60 ml 190 ml Other 20 ml Output Urine Total 765 ml 880 ml Stool Total 500 ml # Bowel Movements 3 3 Laboratory Tests Test 05/17/18 04:40 White Blood Count 10.1 K/UL (4.8-10.8) Red Blood Count 4.56 M/UL (4.20-5.40) Hemoglobin 11.2 G/DL (12.0-16.0) L Hematocrit 37.8 % (37.0-47.0) Mean Corpuscular Volume 83 FL (80-99) Mean Corpuscular Hemoglobin 24.6 PG (27.0-31.0) L Mean Corpuscular Hemoglobin Concent 29.7 G/DL (32.0-36.0) L Red Cell Distribution Width 18.3 % (11.6-14.8) H Platelet Count 164 K/UL (150-450) # Mean Platelet Volume 7.4 FL (6.5-10.1) Neutrophils (%) (Auto) 83.9 % (45.0-75.0) H Lymphocytes (%) (Auto) 6.7 % (20.0-45.0) L Monocytes (%) (Auto) 6.6 % (1.0-10.0) Eosinophils (%) (Auto) 1.0 % (0.0-3.0) Basophils (%) (Auto) 1.7 % (0.0-2.0) Sodium Level 146 MMOL/L (136-145) H Potassium Level 3.5 MMOL/L (3.5-5.1) Chloride Level 111 MMOL/L (98-107) H Carbon Dioxide Level 25 MMOL/L (21-32) Anion Gap 10 mmol/L (5-15) Blood Urea Nitrogen 43 mg/dL (7-18) H Creatinine 1.8 MG/DL (0.55-1.30) H Estimat Glomerular Filtration Rate 34.3 mL/min (>60) Glucose Level 100 MG/DL (74-106) Uric Acid 12.3 MG/DL (2.6-7.2) H Calcium Level 9.0 MG/DL (8.5-10.1) Phosphorus Level 3.4 MG/DL (2.5-4.9) Magnesium Level 2.1 MG/DL (1.8-2.4) Total Bilirubin 2.5 MG/DL (0.2-1.0) H Direct Bilirubin 1.7 MG/DL (0.0-0.3) H Gamma Glutamyl Transpeptidase 131 U/L (5-85) H Aspartate Amino Transf (AST/SGOT) 52 U/L (15-37) H Alanine Aminotransferase (ALT/SGPT) 39 U/L (12-78) Alkaline Phosphatase 189 U/L (46-116) H Pro-B-Type Natriuretic Peptide 2004 pg/mL (0-125) H Total Protein 6.0 G/DL (6.4-8.2) L Albumin 2.1 G/DL (3.4-5.0) L Globulin 3.9 g/dL Albumin/Globulin Ratio 0.5 (1.0-2.7) L Height (Feet): 5 Height (Inches): 3.00 Weight (Pounds): 323 General Appearance: no apparent distress, morbidly obese Cardiovascular: normal rate Respiratory/Chest: normal breath sounds, no respiratory distress, other - intubated Abdominal Exam: normal bowel sounds, non tender, soft, other - NGT Extremities: non-tender Otilio Cohen NP May 17, 2018 11:13
--- NOTE | 2018-05-17 11:41 | General Progress Note ---
Assessment/Plan Assessment/Plan S, O: Intubated, PICC line in place, Sedated. limited exam PHYSICAL EXAMINATION: HEAD AND NECK: Atraumatic and normocephalic. CHEST: Diffuse bronchial breathing sounds. Overall decreased breathing sounds. ABDOMEN: Grossly morbidly obese. Limited evaluation. MUSCULOSKELETAL: Positive for ulcers and wounds, more diffusely edematous about 2+, superficial wounds on both legs , dressed . NEUROLOGIC: The patient is sedated and intubated. limited exam, Meds: Reviewed and reconciled. Including Dopamine gtt Renal Us : reviewed ASSESSMENT: 1.Vent Dependent Respiratory failure 2. shock, ddx: septic vs cardiogenic 3. CHF exacerbation, right sided, preserved EF 3. Acute/Chronic Renal F 4. Abnormal Trop: NSTEMI vs Leakage 3. UTI/lower extremity infection Hypertension. 4. Diabetes type 2, controlled with A1c of 6.3. 5. Pain management. 6. PAH 6. GI and DVT prophylaxis. PLAN OF CARE: Grave prognosis Didn't tolerate Dobutamine gtt. re-placed Dopamin gtt. discussed with Cardiology Empirical abx, per ID Subjective Allergies: Coded Allergies: ASPIRIN (Verified Allergy, Intermediate, Hives, 01/06/13) PENICILLINS (Verified Allergy, Intermediate, Hives, 01/06/13) Objective Last 24 Hour Vital Signs Date Time Temp Pulse Resp B/P (MAP) Pulse Ox O2 Delivery O2 Flow Rate FiO2 05/17/18 10:44 86 18 40 05/17/18 10:00 76 18 104/66 (79) 100 05/17/18 09:43 98/64 05/17/18 09:30 80 18 94/60 (71) 98 05/17/18 09:00 77 18 98/55 (69) 98 05/17/18 08:45 77 18 60 05/17/18 08:30 78 18 76/40 (52) 98 05/17/18 08:00 Mechanical Ventilator 05/17/18 08:00 78 05/17/18 08:00 60 05/17/18 08:00 98.3 92 19 185/98 (127) 99 05/17/18 07:00 92 17 152/61 (91) 99 05/17/18 07:00 90 18 187/82 (117) 95 05/17/18 07:00 18 Mechanical Ventilator 60 05/17/18 06:40 80 18 60 05/17/18 06:30 90 18 100/59 (73) 95 05/17/18 06:08 18 60 05/17/18 06:00 90 17 85/59 (68) 95 05/17/18 05:30 137 17 160/96 (117) 95 05/17/18 05:04 77 18 60 05/17/18 05:00 18 Mechanical Ventilator 60 05/17/18 05:00 118 17 153/96 (115) 95 05/17/18 04:30 91 19 109/52 (71) 95 05/17/18 04:00 Mechanical Ventilator 05/17/18 04:00 98.0 91 19 88/58 (68) 95 05/17/18 04:00 86 05/17/18 04:00 18 60 05/17/18 04:00 60 05/17/18 03:30 128 19 160/85 (110) 95 05/17/18 03:00 82 19 140/83 (102) 98 05/17/18 03:00 20 Mechanical Ventilator 60 05/17/18 02:47 89 18 60 05/17/18 02:30 83 19 137/83 (101) 98 05/17/18 02:00 18 Mechanical Ventilator 60 05/17/18 02:00 80 17 101/70 (80) 99 05/17/18 01:30 79 18 111/58 (75) 98 05/17/18 01:01 84 18 60 05/17/18 01:00 77 18 97/58 (71) 95 05/17/18 01:00 18 Mechanical Ventilator 60 05/17/18 00:30 85 18 102/64 (77) 95 05/17/18 00:00 60 05/17/18 00:00 81 05/17/18 00:00 Mechanical Ventilator 05/17/18 00:00 98.2 81 18 108/54 (72) 95 05/16/18 23:30 81 18 108/54 (72) 95 05/16/18 23:07 101 21 60 05/16/18 23:00 137/73 05/16/18 23:00 99 18 140/79 (99) 95 05/16/18 22:30 100 18 139/79 (99) 95 05/16/18 22:00 158/94 05/16/18 22:00 106 17 143/85 (104) 95 05/16/18 21:30 109 17 152/101 (118) 94 05/16/18 21:00 106 17 143/85 (104) 95 05/16/18 21:00 143/85 05/16/18 20:59 104 18 60 05/16/18 20:30 102 18 154/84 (107) 95 05/16/18 20:00 60 05/16/18 20:00 77 05/16/18 20:00 135/67 05/16/18 20:00 Mechanical Ventilator 05/16/18 20:00 98.6 72 18 91/62 (72) 97 05/16/18 20:00 101 18 135/67 (89) 97 05/16/18 19:30 100 18 144/85 (104) 93 05/16/18 19:16 99 19 60 05/16/18 18:05 89/53 05/16/18 18:00 72 18 91/62 (72) 97 05/16/18 17:30 92 18 127/68 (87) 95 05/16/18 17:01 92 18 60 05/16/18 17:00 86 18 127/67 (87) 95 05/16/18 16:30 94 18 117/58 (77) 96 05/16/18 16:00 83 05/16/18 16:00 98.4 88 18 125/72 (89) 96 05/16/18 16:00 Mechanical Ventilator 05/16/18 16:00 60 05/16/18 15:30 93 18 116/58 (77) 96 05/16/18 15:00 87 18 137/78 (97) 95 05/16/18 14:43 99 23 60 05/16/18 14:30 94 18 114/65 (81) 96 05/16/18 14:00 97 10 137/78 (97) 96 05/16/18 13:30 98 10 127/76 (93) 96 05/16/18 13:09 100 18 60 05/16/18 13:00 99 10 144/78 (100) 94 05/16/18 12:30 99 18 134/70 (91) 96 05/16/18 12:23 18 Mechanical Ventilator 60 05/16/18 12:00 Mechanical Ventilator 05/16/18 12:00 96 05/16/18 12:00 60 05/16/18 12:00 98.3 99 18 124/68 (86) 95 Intake and Output 05/16/18 05/17/18 19:00 07:00 Intake Total 1559.25 ml 299.00 ml Output Total 765 ml 1380 ml Balance 794.25 ml -1081.00 ml Intake Oral 75 ml Free Water 110 ml IV Total 1294.25 ml 109.00 ml Tube Feeding 60 ml 190 ml Other 20 ml Output Urine Total 765 ml 880 ml Stool Total 500 ml # Bowel Movements 3 3 Laboratory Tests 05/17/18 04:40: White Blood Count 10.1, Red Blood Count 4.56, Hemoglobin 11.2L, Hematocrit 37.8 , Mean Corpuscular Volume 83, Mean Corpuscular Hemoglobin 24.6L, Mean Corpuscular Hemoglobin Concent 29.7L, Red Cell Distribution Width 18.3H, Platelet Count 164#, Mean Platelet Volume 7.4, Neutrophils (%) (Auto) 83.9H, Lymphocytes (%) (Auto) 6.7L, Monocytes (%) (Auto) 6.6, Eosinophils (%) (Auto) 1.0, Basophils (%) (Auto) 1.7, Sodium Level 146H, Potassium Level 3.5, Chloride Level 111H, Carbon Dioxide Level 25, Anion Gap 10, Blood Urea Nitrogen 43H, Creatinine 1.8H, Estimat Glomerular Filtration Rate 34.3, Glucose Level 100, Uric Acid 12.3H, Calcium Level 9.0, Phosphorus Level 3.4, Magnesium Level 2.1, Total Bilirubin 2.5H, Direct Bilirubin 1.7H, Gamma Glutamyl Transpeptidase 131H , Aspartate Amino Transf (AST/SGOT) 52H, Alanine Aminotransferase (ALT/SGPT) 39 , Alkaline Phosphatase 189H, Pro-B-Type Natriuretic Peptide 2004H, Total Protein 6.0L, Albumin 2.1L, Globulin 3.9, Albumin/Globulin Ratio 0.5L Height (Feet): 5 Height (Inches): 3.00 Weight (Pounds): 323 Margaret Mckinney MD May 17, 2018 11:41
--- NOTE | 2018-05-17 12:30 | NUR ---
NURSE NOTES: HR 66, oxygen saturation 99%, resp 14 and B/P 113/54. No s/s of acute distress.
[2018-05-17] MEDS ORDERED: Enoxaparin 30mg Inj SUBQ SCH (14:00)
[2018-05-17] MEDS ORDERED: Enoxaparin 120 mg inj SUBQ SCH (14:00)
--- NOTE | 2018-05-17 14:37 | General Progress Note ---
Assessment/Plan Assessment/Plan Patient's LLE ulcers are stable and unchanged from the exam on 05/12/18. Recommend continuing xereform to the ulcers on the LLE. Her more pressing issues involve her pulmonary status as well as her renal status. No surgical intervention recommended for the LLE ulcers. Subjective Date patient seen: May 17, 2018 Time patient seen: 13:00 ROS Limited/Unobtainable: Yes Allergies: Coded Allergies: ASPIRIN (Verified Allergy, Intermediate, Hives, 01/06/13) PENICILLINS (Verified Allergy, Intermediate, Hives, 01/06/13) Subjective Follow up evaluation of patient with LLE ulcers. Since the last evaluation patient has been transferred to the ICU and intubated. She was seen by vascular and renal and is being followed by podiatry and ID as well. She is on oral feeds. Her dressings to the LLE are xereform. Objective Last 24 Hour Vital Signs Date Time Temp Pulse Resp B/P (MAP) Pulse Ox O2 Delivery O2 Flow Rate FiO2 05/17/18 13:07 87 18 40 05/17/18 12:00 Mechanical Ventilator 05/17/18 12:00 83 18 91/62 (72) 93 05/17/18 12:00 60 05/17/18 11:30 81 18 96/59 (71) 93 05/17/18 11:00 78 18 97/56 (70) 93 05/17/18 10:44 86 18 40 05/17/18 10:30 80 18 98/63 (75) 99 05/17/18 10:00 76 18 104/66 (79) 100 05/17/18 09:43 98/64 05/17/18 09:30 80 18 94/60 (71) 98 05/17/18 09:00 77 18 98/55 (69) 98 05/17/18 08:45 77 18 60 05/17/18 08:30 78 18 76/40 (52) 98 05/17/18 08:00 Mechanical Ventilator 05/17/18 08:00 78 05/17/18 08:00 60 05/17/18 08:00 98.3 92 19 185/98 (127) 99 05/17/18 07:00 92 17 152/61 (91) 99 05/17/18 07:00 90 18 187/82 (117) 95 05/17/18 07:00 18 Mechanical Ventilator 60 05/17/18 06:40 80 18 60 05/17/18 06:30 90 18 100/59 (73) 95 05/17/18 06:08 18 60 05/17/18 06:00 90 17 85/59 (68) 95 05/17/18 05:30 137 17 160/96 (117) 95 05/17/18 05:04 77 18 60 05/17/18 05:00 18 Mechanical Ventilator 60 05/17/18 05:00 118 17 153/96 (115) 95 05/17/18 04:30 91 19 109/52 (71) 95 05/17/18 04:00 Mechanical Ventilator 05/17/18 04:00 98.0 91 19 88/58 (68) 95 05/17/18 04:00 86 05/17/18 04:00 18 60 05/17/18 04:00 60 05/17/18 03:30 128 19 160/85 (110) 95 05/17/18 03:00 82 19 140/83 (102) 98 05/17/18 03:00 20 Mechanical Ventilator 60 05/17/18 02:47 89 18 60 05/17/18 02:30 83 19 137/83 (101) 98 05/17/18 02:00 18 Mechanical Ventilator 60 05/17/18 02:00 80 17 101/70 (80) 99 05/17/18 01:30 79 18 111/58 (75) 98 05/17/18 01:01 84 18 60 05/17/18 01:00 77 18 97/58 (71) 95 05/17/18 01:00 18 Mechanical Ventilator 60 05/17/18 00:30 85 18 102/64 (77) 95 05/17/18 00:00 60 05/17/18 00:00 81 05/17/18 00:00 Mechanical Ventilator 05/17/18 00:00 98.2 81 18 108/54 (72) 95 05/16/18 23:30 81 18 108/54 (72) 95 05/16/18 23:07 101 21 60 05/16/18 23:00 137/73 05/16/18 23:00 99 18 140/79 (99) 95 05/16/18 22:30 100 18 139/79 (99) 95 1/20/19 22:00 158/94 05/16/18 22:00 106 17 143/85 (104) 95 05/16/18 21:30 109 17 152/101 (118) 94 05/16/18 21:00 106 17 143/85 (104) 95 05/16/18 21:00 143/85 05/16/18 20:59 104 18 60 05/16/18 20:30 102 18 154/84 (107) 95 05/16/18 20:00 60 05/16/18 20:00 77 05/16/18 20:00 135/67 05/16/18 20:00 Mechanical Ventilator 05/16/18 20:00 98.6 72 18 91/62 (72) 97 05/16/18 20:00 101 18 135/67 (89) 97 05/16/18 19:30 100 18 144/85 (104) 93 05/16/18 19:16 99 19 60 05/16/18 18:05 89/53 05/16/18 18:00 72 18 91/62 (72) 97 05/16/18 17:30 92 18 127/68 (87) 95 05/16/18 17:01 92 18 60 05/16/18 17:00 86 18 127/67 (87) 95 05/16/18 16:30 94 18 117/58 (77) 96 05/16/18 16:00 83 05/16/18 16:00 98.4 88 18 125/72 (89) 96 05/16/18 16:00 Mechanical Ventilator 05/16/18 16:00 60 05/16/18 15:30 93 18 116/58 (77) 96 05/16/18 15:00 87 18 137/78 (97) 95 05/16/18 14:43 99 23 60 Intake and Output 05/16/18 05/17/18 19:00 07:00 Intake Total 1559.25 ml 299.00 ml Output Total 765 ml 1380 ml Balance 794.25 ml -1081.00 ml Intake Oral 75 ml Free Water 110 ml IV Total 1294.25 ml 109.00 ml Tube Feeding 60 ml 190 ml Other 20 ml Output Urine Total 765 ml 880 ml Stool Total 500 ml # Bowel Movements 3 3 Laboratory Tests 05/17/18 04:40: White Blood Count 10.1, Red Blood Count 4.56, Hemoglobin 11.2L, Hematocrit 37.8 , Mean Corpuscular Volume 83, Mean Corpuscular Hemoglobin 24.6L, Mean Corpuscular Hemoglobin Concent 29.7L, Red Cell Distribution Width 18.3H, Platelet Count 164#, Mean Platelet Volume 7.4, Neutrophils (%) (Auto) 83.9H, Lymphocytes (%) (Auto) 6.7L, Monocytes (%) (Auto) 6.6, Eosinophils (%) (Auto) 1.0, Basophils (%) (Auto) 1.7, Sodium Level 146H, Potassium Level 3.5, Chloride Level 111H, Carbon Dioxide Level 25, Anion Gap 10, Blood Urea Nitrogen 43H, Creatinine 1.8H, Estimat Glomerular Filtration Rate 34.3, Glucose Level 100, Uric Acid 12.3H, Calcium Level 9.0, Phosphorus Level 3.4, Magnesium Level 2.1, Total Bilirubin 2.5H, Direct Bilirubin 1.7H, Gamma Glutamyl Transpeptidase 131H , Aspartate Amino Transf (AST/SGOT) 52H, Alanine Aminotransferase (ALT/SGPT) 39 , Alkaline Phosphatase 189H, Pro-B-Type Natriuretic Peptide 2004H, Total Protein 6.0L, Albumin 2.1L, Globulin 3.9, Albumin/Globulin Ratio 0.5L Height (Feet): 5 Height (Inches): 3.00 Weight (Pounds): 323 Skin: other - LLE ulcers with granular tissue covering 75% of base. Some fibrotic debris at the base but no slough. Terry Carmen MD May 17, 2018 14:36
[2018-05-17] MEDS: ceFAZolin 2gm/50ml Premix 50 ML IV SCH ×2 (14:48→22:11)
--- NOTE | 2018-05-17 15:30 | NUR ---
NURSE NOTES: HR 85, oxygen saturation 98%, resp 17 and B/P 93/65. and suction done.
[2018-05-17] MEDS: AZTREONAM IVPB SCH ×4 (16:45→23:56)
[2018-05-17] MEDS: [UNRECOGNIZED DRUG - OTHER] IVPB SCH ×4 (16:45→23:56)
[2018-05-17] MEDS ORDERED: Tubing IV Secondary IV ONE (17:13)
[2018-05-17] MEDS ORDERED: D5NS 1000ml IV ONE (17:13)
--- NOTE | 2018-05-17 17:56 | Pulmonolgy Critical Care Note ---
Critical Care - Asmt/Plan Assessment/Plan: Pulmonary Progress Note Critical Care - Asmt/Plan Assessment/Plan: 67 y/o female w/ DM, CKD, morbid obesity admitted with b/l LE cellulitis and altered mental status. Problem List: 1. Altered mental status 2. Acute hypercapnic respiratory failure 3. Bilateral lower extremity cellulitis 4. RACHELLE on CKD 5. DM 6. Morbid obesity 7. 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: Continue pressors, continue to monitor HR/BP Renal: check electrolytes Infectious Disease: continue antibiotics Neurologic: keep patient comfortable Prophylaxis: Heparin Disposition: keep in ICU Time Spent (Minutes): other - 45 minutes Critical Care - Objective Vital Signs Noted Status: sedated on ventilator Condition: critical HEENT: atraumatic, normocephalic Lungs: rales Heart: HR/BP unstable Abdomen: soft, non-tender Extremities: other - Edema with erythema and open ulcers/sores Decubiti: none Micro: Microbiology Date/Time Source Procedure Growth Status 05/12/18 14:30 Blood Blood Culture - Preliminary NO GROWTH AFTER 24 HOURS Resulted 05/12/18 14:15 Blood Blood Culture - Preliminary NO GROWTH AFTER 24 HOURS Resulted 05/13/18 08:45 Urine,Clean Catch Urine Culture - Preliminary NO GROWTH AFTER 24 HOURS Resulted 05/12/18 18:20 Leg Right Gram Stain - Final Resulted 05/12/18 18:20 Leg Right Wound Culture Pending Resulted 05/12/18 18:20 Leg Left Gram Stain - Final Resulted 05/12/18 18:20 Leg Left Wound Culture Pending Resulted 05/12/18 17:00 Rectum VRE Culture - Final NO VANCOMYCIN RESISTANT ENTEROCOCCUS ... Complete 05/12/18 17:00 Rectum - Final NO CARBAPENEM-RESISTANT ENTEROBACTERI... Complete Critical Care - Subjective ROS Limited/Unobtainable: Yes ICU Day: 2 Interval Events: Worsening CO2 retention despite increasing BiPAP and increased lethargy. Now mostly unresponsive. BP has been low but stable MAP 60. No fevers. Ammonia higher today. Condition: critical EKG Rhythm: Sinus Bradycardia FI02: 60 Sputum Amount: None Time of note does not reflect time patient seen Critical Care - Objective Last 24 Hour Vital Signs Date Time Temp Pulse Resp B/P (MAP) Pulse Ox O2 Delivery O2 Flow Rate FiO2 05/17/18 17:30 86 18 107/69 (82) 97 05/17/18 17:00 82 18 105/71 (82) 97 05/17/18 17:00 18 05/17/18 16:39 88 18 40 05/17/18 16:30 86 17 102/60 (74) 98 05/17/18 16:01 98.6 87 19 97/64 (75) 98 05/17/18 16:00 Mechanical Ventilator 05/17/18 16:00 87 19 97/64 (75) 98 05/17/18 16:00 60 05/17/18 16:00 18 Mechanical Ventilator 05/17/18 16:00 85 05/17/18 15:30 84 17 101/56 (71) 97 05/17/18 15:00 18 Mechanical Ventilator 05/17/18 15:00 85 18 110/66 (81) 98 05/17/18 14:53 87 18 40 05/17/18 14:30 86 17 97/40 (59) 97 05/17/18 14:00 88 17 93/61 (72) 97 05/17/18 14:00 18 Mechanical Ventilator 05/17/18 13:30 85 18 95/55 (68) 97 05/17/18 13:07 87 18 40 05/17/18 13:00 84 18 91/56 (68) 97 05/17/18 13:00 18 Mechanical Ventilator 05/17/18 12:30 85 18 63/42 (49) 96 05/17/18 12:01 98.3 83 18 91/62 (72) 93 05/17/18 12:00 Mechanical Ventilator 05/17/18 12:00 83 18 91/62 (72) 93 05/17/18 12:00 18 Mechanical Ventilator 05/17/18 12:00 60 05/17/18 12:00 85 05/17/18 11:30 81 18 96/59 (71) 93 05/17/18 11:00 18 Mechanical Ventilator 05/17/18 11:00 78 18 97/56 (70) 93 05/17/18 10:44 86 18 40 1/21/19 10:30 80 18 98/63 (75) 99 05/17/18 10:00 76 18 104/66 (79) 100 05/17/18 10:00 18 Mechanical Ventilator 05/17/18 09:43 98/64 05/17/18 09:30 80 18 94/60 (71) 98 05/17/18 09:00 18 Mechanical Ventilator 05/17/18 09:00 77 18 98/55 (69) 98 05/17/18 08:45 77 18 60 05/17/18 08:30 78 18 76/40 (52) 98 05/17/18 08:00 Mechanical Ventilator 05/17/18 08:00 78 05/17/18 08:00 60 05/17/18 08:00 18 Mechanical Ventilator 05/17/18 08:00 98.3 92 19 185/98 (127) 99 05/17/18 07:00 92 17 152/61 (91) 99 05/17/18 07:00 90 18 187/82 (117) 95 05/17/18 07:00 18 Mechanical Ventilator 60 05/17/18 06:40 80 18 60 05/17/18 06:30 90 18 100/59 (73) 95 05/17/18 06:08 18 60 05/17/18 06:00 90 17 85/59 (68) 95 05/17/18 05:30 137 17 160/96 (117) 95 05/17/18 05:04 77 18 60 05/17/18 05:00 18 Mechanical Ventilator 60 05/17/18 05:00 118 17 153/96 (115) 95 05/17/18 04:30 91 19 109/52 (71) 95 05/17/18 04:00 Mechanical Ventilator 05/17/18 04:00 98.0 91 19 88/58 (68) 95 05/17/18 04:00 86 05/17/18 04:00 18 60 05/17/18 04:00 60 05/17/18 03:30 128 19 160/85 (110) 95 05/17/18 03:00 82 19 140/83 (102) 98 05/17/18 03:00 20 Mechanical Ventilator 60 05/17/18 02:47 89 18 60 05/17/18 02:30 83 19 137/83 (101) 98 05/17/18 02:00 18 Mechanical Ventilator 60 05/17/18 02:00 80 17 101/70 (80) 99 05/17/18 01:30 79 18 111/58 (75) 98 05/17/18 01:01 84 18 60 05/17/18 01:00 77 18 97/58 (71) 95 05/17/18 01:00 18 Mechanical Ventilator 60 05/17/18 00:30 85 18 102/64 (77) 95 05/17/18 00:00 60 05/17/18 00:00 81 05/17/18 00:00 Mechanical Ventilator 05/17/18 00:00 98.2 81 18 108/54 (72) 95 05/16/18 23:30 81 18 108/54 (72) 95 05/16/18 23:07 101 21 60 05/16/18 23:00 137/73 05/16/18 23:00 99 18 140/79 (99) 95 05/16/18 22:30 100 18 139/79 (99) 95 05/16/18 22:00 158/94 05/16/18 22:00 106 17 143/85 (104) 95 05/16/18 21:30 109 17 152/101 (118) 94 05/16/18 21:00 106 17 143/85 (104) 95 05/16/18 21:00 143/85 05/16/18 20:59 104 18 60 05/16/18 20:30 102 18 154/84 (107) 95 05/16/18 20:00 60 05/16/18 20:00 77 05/16/18 20:00 135/67 05/16/18 20:00 Mechanical Ventilator 05/16/18 20:00 98.6 72 18 91/62 (72) 97 05/16/18 20:00 101 18 135/67 (89) 97 05/16/18 19:30 100 18 144/85 (104) 93 05/16/18 19:16 99 19 60 05/16/18 18:05 89/53 05/16/18 18:00 72 18 91/62 (72) 97 Accucheck: 110 Critical Care - Subjective ROS Limited/Unobtainable: No Vent Support Breath Rate: 18 Vent Support Mode: AC Vent Tidal Volume: 550 Sputum Amount: Moderate PEEP: 5.0 PIP: 32 Tube Feeding Amount: 30 I&O: Intake and Output 05/16/18 05/17/18 19:00 07:00 Intake Total 1559.25 ml 299.00 ml Output Total 765 ml 1380 ml Balance 794.25 ml -1081.00 ml Intake Oral 75 ml Free Water 110 ml IV Total 1294.25 ml 109.00 ml Tube Feeding 60 ml 190 ml Other 20 ml Output Urine Total 765 ml 880 ml Stool Total 500 ml # Bowel Movements 3 3 ET-Tube: 7.5 ET Position: 24 Lawrence Wills MD May 17, 2018 17:56
[2018-05-17] MEDS: DOPamine 400mg/250ml 250 ML IV SCH (18:55)
--- NOTE | 2018-05-17 18:58 | Infectious Diseases Prog Note ---
Assessment/Plan Problems: (1) Bilateral lower leg cellulitis Assessment & Plan: continue cefazoline and aztreonam empirically with local wounds care . patient has refused MRI and CT of the legs to rule out deep abscess or osteomyelitis. await bone scan of both legs . 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 (2) Nonhealing ulcer of left lower extremity Assessment & Plan: wound culture is growing gram negative rods and diphtheroids , already on aztreonam and cefazolin , continue local wound care and dressings change as per wound care service (3) Painful legs and moving toes Assessment & Plan: suspect due to the above , will order venous doppler to rule out DVT (4) CKD (chronic kidney disease) Assessment & Plan: avoid nephrotoxics , renally dosed antibiotics as per pharmacy (5) DM (diabetes mellitus) Assessment & Plan: recommend tight glycemic control to keep blood glucose between 100-140 (6) Acute encephalopathy Assessment & Plan: suspect metabolic with high ammonia level, continue lactulose , consult neurology if no improvement with brain image (7) Acute hypoxemic respiratory failure Assessment & Plan: due to the above , intubated on mechanical ventilation, pulmonary is following Subjective ROS Limited/Unobtainable: Yes Allergies: Coded Allergies: ASPIRIN (Verified Allergy, Intermediate, Hives, 01/06/13) PENICILLINS (Verified Allergy, Intermediate, Hives, 01/06/13) Subjective she was still intubated on mechanical ventilation in ICU , sedated , responsive to verbal commands, afebrile, NAD . has more UOP , on pressor Objective Vital Signs Last 24 Hour Vital Signs Date Time Temp Pulse Resp B/P (MAP) Pulse Ox O2 Delivery O2 Flow Rate FiO2 05/17/18 18:30 84 18 97/18 (44) 97 05/17/18 18:00 18 Mechanical Ventilator 05/17/18 18:00 84 18 103/62 (76) 97 05/17/18 17:30 86 18 107/69 (82) 97 05/17/18 17:00 82 18 105/71 (82) 97 05/17/18 17:00 18 Mechanical Ventilator 05/17/18 16:39 88 18 40 05/17/18 16:30 86 17 102/60 (74) 98 05/17/18 16:01 98.6 87 19 97/64 (75) 98 05/17/18 16:00 Mechanical Ventilator 05/17/18 16:00 87 19 97/64 (75) 98 05/17/18 16:00 60 05/17/18 16:00 18 Mechanical Ventilator 05/17/18 16:00 85 05/17/18 15:30 84 17 101/56 (71) 97 05/17/18 15:00 18 Mechanical Ventilator 05/17/18 15:00 85 18 110/66 (81) 98 05/17/18 14:53 87 18 40 05/17/18 14:30 86 17 97/40 (59) 97 05/17/18 14:00 88 17 93/61 (72) 97 05/17/18 14:00 18 Mechanical Ventilator 05/17/18 13:30 85 18 95/55 (68) 97 05/17/18 13:07 87 18 40 05/17/18 13:00 84 18 91/56 (68) 97 05/17/18 13:00 18 Mechanical Ventilator 05/17/18 12:30 85 18 63/42 (49) 96 05/17/18 12:01 98.3 83 18 91/62 (72) 93 05/17/18 12:00 Mechanical Ventilator 05/17/18 12:00 83 18 91/62 (72) 93 05/17/18 12:00 18 Mechanical Ventilator 05/17/18 12:00 60 05/17/18 12:00 85 05/17/18 11:30 81 18 96/59 (71) 93 05/17/18 11:00 18 Mechanical Ventilator 05/17/18 11:00 78 18 97/56 (70) 93 05/17/18 10:44 86 18 40 05/17/18 10:30 80 18 98/63 (75) 99 05/17/18 10:00 76 18 104/66 (79) 100 05/17/18 10:00 18 Mechanical Ventilator 05/17/18 09:43 98/64 05/17/18 09:30 80 18 94/60 (71) 98 05/17/18 09:00 18 Mechanical Ventilator 05/17/18 09:00 77 18 98/55 (69) 98 05/17/18 08:45 77 18 60 05/17/18 08:30 78 18 76/40 (52) 98 05/17/18 08:00 Mechanical Ventilator 05/17/18 08:00 78 05/17/18 08:00 60 05/17/18 08:00 18 Mechanical Ventilator 05/17/18 08:00 98.3 92 19 185/98 (127) 99 05/17/18 07:00 92 17 152/61 (91) 99 05/17/18 07:00 90 18 187/82 (117) 95 05/17/18 07:00 18 Mechanical Ventilator 60 05/17/18 06:40 80 18 60 05/17/18 06:30 90 18 100/59 (73) 95 05/17/18 06:08 18 60 05/17/18 06:00 90 17 85/59 (68) 95 05/17/18 05:30 137 17 160/96 (117) 95 05/17/18 05:04 77 18 60 05/17/18 05:00 18 Mechanical Ventilator 60 05/17/18 05:00 118 17 153/96 (115) 95 05/17/18 04:30 91 19 109/52 (71) 95 05/17/18 04:00 Mechanical Ventilator 05/17/18 04:00 98.0 91 19 88/58 (68) 95 05/17/18 04:00 86 05/17/18 04:00 18 60 05/17/18 04:00 60 05/17/18 03:30 128 19 160/85 (110) 95 05/17/18 03:00 82 19 140/83 (102) 98 05/17/18 03:00 20 Mechanical Ventilator 60 05/17/18 02:47 89 18 60 05/17/18 02:30 83 19 137/83 (101) 98 05/17/18 02:00 18 Mechanical Ventilator 60 05/17/18 02:00 80 17 101/70 (80) 99 05/17/18 01:30 79 18 111/58 (75) 98 05/17/18 01:01 84 18 60 05/17/18 01:00 77 18 97/58 (71) 95 05/17/18 01:00 18 Mechanical Ventilator 60 05/17/18 00:30 85 18 102/64 (77) 95 05/17/18 00:00 60 05/17/18 00:00 81 05/17/18 00:00 Mechanical Ventilator 05/17/18 00:00 98.2 81 18 108/54 (72) 95 05/16/18 23:30 81 18 108/54 (72) 95 05/16/18 23:07 101 21 60 05/16/18 23:00 137/73 05/16/18 23:00 99 18 140/79 (99) 95 05/16/18 22:30 100 18 139/79 (99) 95 05/16/18 22:00 158/94 05/16/18 22:00 106 17 143/85 (104) 95 05/16/18 21:30 109 17 152/101 (118) 94 05/16/18 21:00 106 17 143/85 (104) 95 05/16/18 21:00 143/85 05/16/18 20:59 104 18 60 05/16/18 20:30 102 18 154/84 (107) 95 05/16/18 20:00 60 05/16/18 20:00 77 05/16/18 20:00 135/67 05/16/18 20:00 Mechanical Ventilator 05/16/18 20:00 98.6 72 18 91/62 (72) 97 05/16/18 20:00 101 18 135/67 (89) 97 05/16/18 19:30 100 18 144/85 (104) 93 05/16/18 19:16 99 19 60 Height (Feet): 5 Height (Inches): 3.00 Weight (Pounds): 323 General Appearance: WD/WN, no acute distress HEENT: normocephalic, atraumatic, anicteric, mucous membranes moist, PERRL, supple, no JVD Respiratory/Chest: chest wall non-tender, no respiratory distress, no accessory muscle use, decreased breath sounds, crackles/rales Cardiovascular: normal peripheral pulses, normal rate, regular rhythm, no gallop/murmur, no JVD Abdomen: normal bowel sounds, soft, non tender, no organomegaly, non distended , no mass, no scars Genitourinary: normal external genitalia Extremities: no cyanosis, no clubbing, other - left leg ulcer Skin: no rash, no lesions, ulcers Neurologic/Psychiatric: unresponsiveness Lymphatic: no neck adenopathy, no groin adenopathy Musculoskeletal: normal muscle bulk, no effusion Laboratory Tests Test 05/17/18 04:40 White Blood Count 10.1 K/UL (4.8-10.8) Red Blood Count 4.56 M/UL (4.20-5.40) Hemoglobin 11.2 G/DL (12.0-16.0) L Hematocrit 37.8 % (37.0-47.0) Mean Corpuscular Volume 83 FL (80-99) Mean Corpuscular Hemoglobin 24.6 PG (27.0-31.0) L Mean Corpuscular Hemoglobin Concent 29.7 G/DL (32.0-36.0) L Red Cell Distribution Width 18.3 % (11.6-14.8) H Platelet Count 164 K/UL (150-450) # Mean Platelet Volume 7.4 FL (6.5-10.1) Neutrophils (%) (Auto) 83.9 % (45.0-75.0) H Lymphocytes (%) (Auto) 6.7 % (20.0-45.0) L Monocytes (%) (Auto) 6.6 % (1.0-10.0) Eosinophils (%) (Auto) 1.0 % (0.0-3.0) Basophils (%) (Auto) 1.7 % (0.0-2.0) Sodium Level 146 MMOL/L (136-145) H Potassium Level 3.5 MMOL/L (3.5-5.1) Chloride Level 111 MMOL/L (98-107) H Carbon Dioxide Level 25 MMOL/L (21-32) Anion Gap 10 mmol/L (5-15) Blood Urea Nitrogen 43 mg/dL (7-18) H Creatinine 1.8 MG/DL (0.55-1.30) H Estimat Glomerular Filtration Rate 34.3 mL/min (>60) Glucose Level 100 MG/DL (74-106) Uric Acid 12.3 MG/DL (2.6-7.2) H Calcium Level 9.0 MG/DL (8.5-10.1) Phosphorus Level 3.4 MG/DL (2.5-4.9) Magnesium Level 2.1 MG/DL (1.8-2.4) Total Bilirubin 2.5 MG/DL (0.2-1.0) H Direct Bilirubin 1.7 MG/DL (0.0-0.3) H Gamma Glutamyl Transpeptidase 131 U/L (5-85) H Aspartate Amino Transf (AST/SGOT) 52 U/L (15-37) H Alanine Aminotransferase (ALT/SGPT) 39 U/L (12-78) Alkaline Phosphatase 189 U/L (46-116) H Pro-B-Type Natriuretic Peptide 2004 pg/mL (0-125) H Total Protein 6.0 G/DL (6.4-8.2) L Albumin 2.1 G/DL (3.4-5.0) L Globulin 3.9 g/dL Albumin/Globulin Ratio 0.5 (1.0-2.7) L Current Medications Medications (Trade) Dose Ordered Sig/Toya Route PRN Reason Start Time Stop Time Status Last Admin Dose Admin Allopurinol (Zyloprim) 300 mg DAILY NG 05/17/18 09:00 06/14/18 08:59 05/17/18 09:44 Ascorbic Acid (Vitamin C) 500 mg TWICE A DAY ORAL 05/16/18 18:00 06/15/18 17:59 05/17/18 17:51 Atorvastatin Calcium (Lipitor) 20 mg BEDTIME ORAL 05/17/18 21:00 06/13/18 20:59 Aztreonam 2 gm/ Dextrose 110 ml @ 220 mls/hr Q8HR@0000,0800,1600 IVPB 05/17/18 16:00 05/24/18 15:59 05/17/18 16:45 Cefazolin Sodium 50 ml @ 100 mls/hr Q8HR IV 05/17/18 14:00 05/24/18 13:59 05/17/18 14:48 Chlorhexidine Gluconate (Romy-Hex 2%) 1 applic DAILY@2000 TOPIC 05/14/18 20:00 06/13/18 19:59 05/16/18 20:24 Clopidogrel Bisulfate (Plavix) 75 mg DAILY ORAL 05/15/18 09:00 06/14/18 08:59 05/17/18 09:43 Dextrose (Dextrose 50%) 25 ml Q30M PRN IV Hypoglycemia 05/13/18 21:00 06/11/18 16:59 Dextrose (Dextrose 50%) 50 ml Q30M PRN IV Hypoglycemia 05/13/18 21:00 06/11/18 16:59 Dopamine HCl/ Dextrose 250 ml @ 0 mls/hr Q24H IV 05/15/18 19:00 06/14/18 18:59 05/16/18 18:05 Fentanyl Citrate 1000 mcg/Sodium Chloride 100 ml @ 0 mls/hr Q24H IV 05/15/18 22:00 05/22/18 21:59 05/17/18 06:08 Insulin Aspart (NovoLOG) BEFORE MEALS AND HS SUBQ 05/13/18 21:00 06/11/18 20:59 05/16/18 06:10 Lactulose (Cephulac) 30 gm Q8HR NG 05/14/18 14:00 06/12/18 17:59 05/17/18 15:05 Lorazepam (Ativan 2mg/ml 1ml) 2 mg Q4H PRN IV For Anxiety 05/14/18 12:00 05/21/18 11:59 05/14/18 16:38 Multivitamins (Multivitamins) 1 tab DAILY ORAL 05/17/18 09:00 06/16/18 08:59 05/17/18 09:43 Nitroglycerin (Ntg) 1 patch Q24H TDERMAL 05/15/18 09:00 06/14/18 08:59 05/17/18 09:43 Pantoprazole (Protonix) 40 mg EVERY 12 HOURS IVP 05/14/18 21:00 06/13/18 20:59 05/17/18 09:44 Povidone Iodine (Betadine Gretchen) 1 applic BID TOPIC 05/16/18 09:00 06/15/18 08:59 05/17/18 17:51 Rifaximin (Xifaxan) 550 mg EVERY 12 HOURS ORAL 05/13/18 21:00 05/20/18 20:59 05/17/18 09:43 Sodium Chloride 500 ml @ 999 mls/hr Q31M PRN IV For hypotension 05/14/18 01:30 06/13/18 01:29 05/14/18 06:10 Sodium Chloride 1,000 ml @ 50 mls/hr Q20H IV 05/16/18 12:45 06/15/18 12:44 05/17/18 09:45 Juice Wilkerson M.D. May 17, 2018 18:58
--- NOTE | 2018-05-17 19:02 | NUR ---
RESPIRATORY NOTE: Received pt on AC 18, 550VT, 40%, PEEP +5. Pt intubated w/ ETT 7.5 @ 24cm lipline, secured by anchorfast. Pt flat effect, occasionally responds to stimuli. B/S vinod. rhonchi, sxn small to moderate amounts of thick, loaiza/brown secretions w/ occasional blood clots. Vinod hands on soft restraints to prevent self-extubation. Vent plugged into red outlet, ambubag at bedside. Pt in no apparent distress at this time. Will continue to monitor pt.
--- NOTE | 2018-05-17 19:17 | NUR ---
HAND-OFF: Report given to Karen VALDES.
--- NOTE | 2018-05-17 19:30 | NUR ---
NURSE NOTES:received pt sedated with Fentanyl drip at 60mcg hr,pt still open eyes for verbal command. Orally intubated on AC mode, SR with PAcsvs AFib on the monitor, Bp stable. Dopamine stand by.Tolerayed OGT fdg at this time Glucerna 1.5 at 30 cc/hr when received . Checked reidual 5-10 ml. Increased rate to 45ml/hr. HOB kept elevated , on aspiration precaution.UPPER extremities 2-3+ swollen Lower extremities with cellulities with drsg dry and intact. Pt on [id number] with big boy bed.Turned for comfort. FLORENCIO PICC line patent for IVs. Anaya t0 gravity with yung yellow urine Border in amt. Rectal tube to gravity with dark brownish stool. lg in amt. will continue to monitor.
[2018-05-17] MEDS: Dyna-Hex 2% Top Sol 2oz TOPIC SCH (20:20)
[2018-05-17] MEDS: Atorvastatin 20mg tab ORAL SCH (21:10)
--- NOTE | 2018-05-17 21:30 | NUR ---
NURSE NOTES:partial bath given with bedchanged.
--- NOTE | 2018-05-17 21:30 | NUR ---
NURSE NOTES:Accucheck 114mg/dl -covered with 2U NOV insulin subcut.
--- NOTE | 2018-05-17 22:47 | Diagnostic Imaging Report ---
APPROVED REPORT CPT Code: 42485 Symptoms Non-healing Ulcer : Bilaterally Comments: Swelling Comments Technically difficult study due to vessel depth and wound (mid-thigh and calf area). RIGHT LEG: Common femoral artery waveform analysis was within normal limits at rest. Color flow duplex sonography revealed calcification throughout the proximal to mid superficial femoral artery. There was no evidence of significant stenosis or occlusion within this segment. The distal superficial femoral artery was not well visualized. The popliteal artery was patent. The tibioperoneal trunk was not well visualized. Doppler tibial arterial waveforms could not be elicited from the dorsalis pedis artery and anterior tibial artery. The posterior tibial artery was also heavily calcified. The Doppler tibial artery waveform analysis was compatible with severe ischemia at rest. LEFT LEG: Common femoral artery waveform analysis was within normal limits at rest. Color flow duplex sonography revealed calcification throughout the proximal to distal superficial femoral artery. A moderate stenosis 279 cm/s, (30-75%) in the proximal superficial femoral artery. The popliteal artery was patent. The tibioperoneal trunk was not well visualized. Doppler tibial arterial waveforms could not be elicited from the dorsalis pedis artery and anterior tibial artery. The posterior tibial artery was also heavily calcified. The Doppler tibial artery waveform analysis was compatible with severe ischemia at rest.
--- NOTE | 2018-05-17 22:47 | Diagnostic Imaging Report ---
APPROVED REPORT CPT Code: 53573 Present Symptoms Shortness of breath BILATERAL: Imaging reveals a patent deep venous system bilaterally. There is no evidence of thrombus within the femoral, popliteal or tibial segments. The greater saphenous veins are also within normal limits. Doppler indicates normal spontaneous flow within these segments. Venous insufficiency are noted in the greater saphenous veins at the thigh and knee levels. The reflux lasted longer than 0.5 sec, bilaterally.
--- NOTE | 2018-05-17 22:49 | Diagnostic Imaging Report ---
APPROVED REPORT CPT Code: 89136 Vascular Symptoms Comments: Altered LOC Exam is technically difficult due to, altered mental status resulting in limited ability to cooperate. Doppler Spectral Velocity Analysis RightLeft RIGHT SIDE: CCA/ECA - Imaging reveals no significant plaque in the common carotid and external carotid arteries. ICA - Imaging reveals irregular plaque in the internal carotid artery. The Doppler signal indicates the degree of stenosis is minimal (20%) in the internal carotid artery. VERTEBRAL/SUBCLAVIAN- The vertebral and subclavian arteries are within normal limits. LEFT SIDE: CCA/ECA - Imaging reveals no significant plaque in the common carotid and external carotid arteries. ICA - Imaging reveals irregular plaque in the internal carotid artery. The Doppler signal indicates the degree of stenosis is minimal (20%) in the internal carotid artery. VERTEBRAL/SUBCLAVIAN- The vertebral and subclavian arteries are within normal limits.
--- NOTE | 2018-05-17 22:53 | Cardiology Progress Note ---
Assessment/Plan Assessment/Plan 1. Dyspnea most likely secondary to acute hypoxic hypercarbic respiratory failure. 2D echocardiography shows normal LV systolic function with a normal intracardiac filling pressures. 2. Right heart failure, pre-load sensitive, avoid aggressive diuretic use, evidence of RA and RV dilatation and severe RV systolic dysfunction, associated pulmonary HTN, ? type. 3. Paroxysmal atrial fibrillation, currently sinus rhythm, continue with amiodarone and Eliquis. 4. Hypotension likely due to RV failure, on dopamine gtt, grim prognosis. 5. Slight elevation of troponin I level in this patient could be due to RV strain/failure or due to type 2 non-ST elevation myocardial infarction. Subjective Subjective Sinus rhythm at rate of 91. Intubated on FiO2 of 40%. Objective Last 24 Hour Vital Signs Date Time Temp Pulse Resp B/P (MAP) Pulse Ox O2 Delivery O2 Flow Rate FiO2 05/17/18 21:00 91 18 40 05/17/18 20:21 18 40 05/17/18 20:00 Mechanical Ventilator 05/17/18 20:00 98.4 79 18 94/55 (68) 97 05/17/18 20:00 40 05/17/18 20:00 79 05/17/18 19:30 76 18 72/52 (59) 97 05/17/18 19:00 85 18 96/64 (75) 97 05/17/18 19:00 85 19 40 05/17/18 19:00 18 Mechanical Ventilator 05/17/18 18:55 103/63 05/17/18 18:30 84 18 97/18 (44) 97 05/17/18 18:00 18 Mechanical Ventilator 05/17/18 18:00 84 18 103/62 (76) 97 05/17/18 17:30 86 18 107/69 (82) 97 05/17/18 17:00 82 18 105/71 (82) 97 05/17/18 17:00 18 Mechanical Ventilator 05/17/18 16:39 88 18 40 05/17/18 16:30 86 17 102/60 (74) 98 05/17/18 16:01 98.6 87 19 97/64 (75) 98 05/17/18 16:00 Mechanical Ventilator 05/17/18 16:00 87 19 97/64 (75) 98 05/17/18 16:00 60 05/17/18 16:00 18 Mechanical Ventilator 05/17/18 16:00 85 05/17/18 15:30 84 17 101/56 (71) 97 05/17/18 15:00 18 Mechanical Ventilator 05/17/18 15:00 85 18 110/66 (81) 98 05/17/18 14:53 87 18 40 05/17/18 14:30 86 17 97/40 (59) 97 05/17/18 14:00 88 17 93/61 (72) 97 05/17/18 14:00 18 Mechanical Ventilator 05/17/18 13:30 85 18 95/55 (68) 97 05/17/18 13:07 87 18 40 05/17/18 13:00 84 18 91/56 (68) 97 05/17/18 13:00 18 Mechanical Ventilator 05/17/18 12:30 85 18 63/42 (49) 96 05/17/18 12:01 98.3 83 18 91/62 (72) 93 05/17/18 12:00 Mechanical Ventilator 05/17/18 12:00 83 18 91/62 (72) 93 05/17/18 12:00 18 Mechanical Ventilator 05/17/18 12:00 60 05/17/18 12:00 85 05/17/18 11:30 81 18 96/59 (71) 93 05/17/18 11:00 18 Mechanical Ventilator 05/17/18 11:00 78 18 97/56 (70) 93 05/17/18 10:44 86 18 40 05/17/18 10:30 80 18 98/63 (75) 99 05/17/18 10:00 76 18 104/66 (79) 100 05/17/18 10:00 18 Mechanical Ventilator 05/17/18 09:43 98/64 05/17/18 09:30 80 18 94/60 (71) 98 05/17/18 09:00 18 Mechanical Ventilator 05/17/18 09:00 77 18 98/55 (69) 98 05/17/18 08:45 77 18 60 05/17/18 08:30 78 18 76/40 (52) 98 05/17/18 08:00 Mechanical Ventilator 05/17/18 08:00 78 05/17/18 08:00 60 05/17/18 08:00 18 Mechanical Ventilator 05/17/18 08:00 98.3 92 19 185/98 (127) 99 05/17/18 07:00 92 17 152/61 (91) 99 05/17/18 07:00 90 18 187/82 (117) 95 05/17/18 07:00 18 Mechanical Ventilator 60 05/17/18 06:40 80 18 60 05/17/18 06:30 90 18 100/59 (73) 95 05/17/18 06:08 18 60 05/17/18 06:00 90 17 85/59 (68) 95 05/17/18 05:30 137 17 160/96 (117) 95 05/17/18 05:04 77 18 60 05/17/18 05:00 18 Mechanical Ventilator 60 05/17/18 05:00 118 17 153/96 (115) 95 05/17/18 04:30 91 19 109/52 (71) 95 05/17/18 04:00 Mechanical Ventilator 05/17/18 04:00 98.0 91 19 88/58 (68) 95 05/17/18 04:00 86 05/17/18 04:00 18 60 05/17/18 04:00 60 05/17/18 03:30 128 19 160/85 (110) 95 05/17/18 03:00 82 19 140/83 (102) 98 05/17/18 03:00 20 Mechanical Ventilator 60 05/17/18 02:47 89 18 60 05/17/18 02:30 83 19 137/83 (101) 98 05/17/18 02:00 18 Mechanical Ventilator 60 05/17/18 02:00 80 17 101/70 (80) 99 05/17/18 01:30 79 18 111/58 (75) 98 05/17/18 01:01 84 18 60 05/17/18 01:00 77 18 97/58 (71) 95 05/17/18 01:00 18 Mechanical Ventilator 60 05/17/18 00:30 85 18 102/64 (77) 95 05/17/18 00:00 60 05/17/18 00:00 81 05/17/18 00:00 Mechanical Ventilator 05/17/18 00:00 98.2 81 18 108/54 (72) 95 05/16/18 23:30 81 18 108/54 (72) 95 05/16/18 23:07 101 21 60 05/16/18 23:00 137/73 05/16/18 23:00 99 18 140/79 (99) 95 Intake and Output 05/16/18 05/17/18 18:59 06:59 Intake Total 1676.00 ml 263.00 ml Output Total 865 ml 1340 ml Balance 811.00 ml -1077.00 ml Intake Oral 75 ml Free Water 110 ml IV Total 1411.00 ml 103.00 ml Tube Feeding 60 ml 160 ml Other 20 ml Output Urine Total 815 ml 840 ml Stool Total 50 ml 500 ml # Bowel Movements 3 3 2D Echo: LVEF 55%, D-shaped septum due to RV pressure overload, Massive RA/RV size. Laboratory Tests Test 05/17/18 04:40 White Blood Count 10.1 K/UL (4.8-10.8) Red Blood Count 4.56 M/UL (4.20-5.40) Hemoglobin 11.2 G/DL (12.0-16.0) L Hematocrit 37.8 % (37.0-47.0) Mean Corpuscular Volume 83 FL (80-99) Mean Corpuscular Hemoglobin 24.6 PG (27.0-31.0) L Mean Corpuscular Hemoglobin Concent 29.7 G/DL (32.0-36.0) L Red Cell Distribution Width 18.3 % (11.6-14.8) H Platelet Count 164 K/UL (150-450) # Mean Platelet Volume 7.4 FL (6.5-10.1) Neutrophils (%) (Auto) 83.9 % (45.0-75.0) H Lymphocytes (%) (Auto) 6.7 % (20.0-45.0) L Monocytes (%) (Auto) 6.6 % (1.0-10.0) Eosinophils (%) (Auto) 1.0 % (0.0-3.0) Basophils (%) (Auto) 1.7 % (0.0-2.0) Sodium Level 146 MMOL/L (136-145) H Potassium Level 3.5 MMOL/L (3.5-5.1) Chloride Level 111 MMOL/L (98-107) H Carbon Dioxide Level 25 MMOL/L (21-32) Anion Gap 10 mmol/L (5-15) Blood Urea Nitrogen 43 mg/dL (7-18) H Creatinine 1.8 MG/DL (0.55-1.30) H Estimat Glomerular Filtration Rate 34.3 mL/min (>60) Glucose Level 100 MG/DL (74-106) Uric Acid 12.3 MG/DL (2.6-7.2) H Calcium Level 9.0 MG/DL (8.5-10.1) Phosphorus Level 3.4 MG/DL (2.5-4.9) Magnesium Level 2.1 MG/DL (1.8-2.4) Total Bilirubin 2.5 MG/DL (0.2-1.0) H Direct Bilirubin 1.7 MG/DL (0.0-0.3) H Gamma Glutamyl Transpeptidase 131 U/L (5-85) H Aspartate Amino Transf (AST/SGOT) 52 U/L (15-37) H Alanine Aminotransferase (ALT/SGPT) 39 U/L (12-78) Alkaline Phosphatase 189 U/L (46-116) H Pro-B-Type Natriuretic Peptide 2004 pg/mL (0-125) H Total Protein 6.0 G/DL (6.4-8.2) L Albumin 2.1 G/DL (3.4-5.0) L Globulin 3.9 g/dL Albumin/Globulin Ratio 0.5 (1.0-2.7) L Objective HEENT: Atraumatic and normocephalic. Anicteric. Pupils are equal, round, and reactive to light and accommodation. Extraocular muscles intact. NECK: Cannot be assessed due to positive inspiratory pressure. No carotid bruit. Carotid upstroke is 2+ bilaterally. CVS: Normal S1 and S2. Regular rate and rhythm. RV heave, No murmurs, gallops , or rubs. LUNGS: Diminished breath sounds in both lungs with rhonchi bilaterally. ABDOMEN: Soft, nontender, and nondistended. No hepatosplenomegaly. Positive bowel sounds. EXTREMITIES: No evidence of edema, clubbing, or cyanosis. There is venous stasis of lower extremities with associated ulceration. Justice Erickson MD May 17, 2018 22:53
--- NOTE | 2018-05-17 23:30 | NUR ---
NURSE NOTES:Suctioned tn tk whitish to beige secretions moderate in amt. 02 sat >95 % Hob kept elevated. Watch for any resp. distress.
[2018-05-18] VITALS (43 sets, daily range): BP systolic 80–136; BP diastolic 42–117
--- NOTE | 2018-05-18 | NUR ---
NURSE NOTES:Placed NPO after midnight for renal and abdominal ultrasound in am
--- NOTE | 2018-05-18 02:00 | NUR ---
NURSE NOTES: Suctioned tk beige secretions moderate in amt. 02 sat>95%
--- NOTE | 2018-05-18 04:00 | NUR ---
NURSE NOTES:Bilateral lower extremities drsg were changed.
[2018-05-18] MEDS: ceFAZolin 2gm/50ml Premix 50 ML IV SCH ×3 (05:46→21:55)
[2018-05-18] MEDS: Lactulose 10gm/15ml UDC NG SCH ×3 (06:00→21:55)
--- NOTE | 2018-05-18 06:00 | NUR ---
NURSE NOTES:Complete bath with bed changed was done. No resp distress noted.vss. Still on Fentanyl drip at 60mcg/min.
[2018-05-18 06:10] LABS: BASOPHILS % (AUTO) 1.5 % (0.0-2.0); HEMATOCRIT 38.6 % (37.0-47.0); HEMOGLOBIN 11.5 G/DL (12.0-16.0); LYMPHOCYTES % (AUTO) 10.7 % (20.0-45.0); MEAN CORPUSCULAR VOLUME 83 FL (80-99); MONOCYTES % (AUTO) 6.5 % (1.0-10.0); NEUTROPHILS % (AUTO) 80.3 % (45.0-75.0); PLATELET COUNT 182 K/UL (150-450); RED BLOOD COUNT 4.67 M/UL (4.20-5.40); RED CELL DISTRIBUTION WIDTH 18.6 % (11.6-14.8); WHITE BLOOD COUNT 9.9 K/UL (4.8-10.8)
[2018-05-18] MEDS: NovoLOG Insulin Flexpen SUBQ SCH ×5 (06:15→23:43)
[2018-05-18 06:20] LABS: INR 1.3 (0.9-1.1)
[2018-05-18 06:59] LABS: ALANINE AMINOTRANSFERASE 19 U/L (12-78); ALBUMIN 2.1 G/DL (3.4-5.0); ALBUMIN/GLOBULIN RATIO 0.5 (1.0-2.7); ALKALINE PHOSPHATASE 212 U/L (46-116); ANION GAP 10 mmol/L (5-15); ASPARTATE AMINO TRANSFERASE 43 U/L (15-37); BILIRUBIN,TOTAL 1.8 MG/DL (0.2-1.0); BLOOD UREA NITROGEN 47 mg/dL (7-18); CALCIUM 8.7 MG/DL (8.5-10.1); CARBON DIOXIDE 24 MMOL/L (21-32); CHLORIDE 114 MMOL/L (98-107); CREATININE 2.3 MG/DL (0.55-1.30); POTASSIUM 3.7 MMOL/L (3.5-5.1); SODIUM 148 MMOL/L (136-145)
[2018-05-18 07:00] LABS: BILIRUBIN,DIRECT 1.3 MG/DL (0.0-0.3)
--- NOTE | 2018-05-18 07:29 | NUR ---
HAND-OFF: Report given to Mila Hopkins using sbar..
--- NOTE | 2018-05-18 07:29 | NUR ---
RESPIRATORY NOTE: received pt on ventilator with current settings. pt is intubated with ETT 7.5 placed at 22cm at the lip. ETT is secured via anchor fast with no redness seen on facial area. vent is plugged into red outlet with ambu bag at bedside. no resp distress noted at this time. will cont to monitor.
--- NOTE | 2018-05-18 07:40 | NUR ---
NURSE NOTES: Received patient from LUCIO Jones. Patient is sedated, briefly opens eyes to name and make eye contact. Orally intubated, ETT 7.5, 24cm lipline, AC 18, TV 550, PEEP 5, FIO2 60%, sating 98%. bilateral lung sounds diminished. OGT intact, NPO for ABD US, HOB elevated. Left upper arm PICC line intact and patent, running 1/2NS at 50cc/hr and fentanyl 60mcg/hr, dressing intact, clean, and dry. Anaya cath intact and patent, draining yung urine by gravity. Rectal tube intact and patent. Dressings on bilateral lower extremities intact, clean and dry. Pt on bilateral wrist soft restraints. pulses present. Generalized edema noted. Pt on bariatric bed. Bed in lowest position. Call light within reach. Will continue to monitor.
--- NOTE | 2018-05-18 08:00 | NUR ---
NURSE NOTES: skin tears noted around left wrist, dressing intact, clean and dry.
[2018-05-18] MEDS: AZTREONAM IVPB SCH ×6 (09:02→23:42)
[2018-05-18] MEDS: Ascorbic Acid 500mg tab NG SCH ×2 (09:02→17:30)
[2018-05-18] MEDS: [UNRECOGNIZED DRUG - OTHER] IVPB SCH ×6 (09:02→23:42)
[2018-05-18] MEDS: Pantoprazole Inj IVP SCH ×2 (09:03→20:42)
[2018-05-18] MEDS: Allopurinol 100mg Tab NG SCH (09:03)
[2018-05-18] MEDS: Nitroglycerin Patch 0.4mg TDERMAL SCH (09:04)
[2018-05-18] MEDS: Betadine 4oz Bottle TOPIC SCH ×2 (09:05→17:30)
--- NOTE | 2018-05-18 10:54 | Nephrology Progress Note ---
Assessment/Plan Problem List: (1) ARF (acute renal failure) (2) Cellulitis of both lower extremities (3) Venous stasis ulcers of both lower extremities (4) DM (diabetes mellitus) (5) CKD (chronic kidney disease) (6) Morbid (severe) obesity due to excess calories (7) Acute hypoxemic respiratory failure Assessment Diabetic Nephropathy acute renal failure super imposed on CKD Encephalopathy, CO2 retainer, respiratory failure acute Obesity High Trop High Bili UTI Bilateral LE cellulitis Anemia Plan 24 h urine crcl and protein midodrine DC IV fluids pulmonary support / Mechanical ventilation Anaya pressors as needed OG feeding Avoid nephrotoxics monitor renal parameters 2D echo Ej Fx 55% kidney WESLEY Per ID , Pulm... meds IV or OG tube Avoid mind altering meds per orders Subjective ROS Limited/Unobtainable: Yes Objective Objective Last 24 Hour Vital Signs Date Time Temp Pulse Resp B/P (MAP) Pulse Ox O2 Delivery O2 Flow Rate FiO2 05/18/18 10:30 84 18 97/50 (66) 99 05/18/18 10:00 82 18 99/70 (80) 92 05/18/18 09:30 85 18 105/73 (84) 97 05/18/18 09:04 98/53 05/18/18 09:00 84 18 99/58 (72) 98 05/18/18 08:56 81 18 40 05/18/18 08:30 83 18 98/53 (68) 100 05/18/18 08:00 Mechanical Ventilator 05/18/18 08:00 78 05/18/18 08:00 98.1 84 18 98/62 (74) 98 05/18/18 08:00 60 05/18/18 07:26 75 18 40 05/18/18 07:25 81 16 99/69 (79) 100 05/18/18 07:00 18 Mechanical Ventilator 60 05/18/18 06:30 80 16 110/67 (81) 100 05/18/18 06:00 79 16 103/67 (79) 100 05/18/18 06:00 18 Non-Rebreather 60 05/18/18 05:30 83 16 91/66 (74) 98 05/18/18 05:12 78 18 40 05/18/18 05:00 84 16 117/67 (84) 98 05/18/18 05:00 18 Mechanical Ventilator 60 05/18/18 04:30 83 18 100/65 (77) 100 05/18/18 04:00 60 05/18/18 04:00 23 Mechanical Ventilator 40 05/18/18 04:00 Mechanical Ventilator 05/18/18 04:00 98.6 80 18 81/65 (70) 100 05/18/18 04:00 78 05/18/18 03:30 75 18 100/63 (75) 100 05/18/18 03:00 18 Mechanical Ventilator 60 05/18/18 03:00 75 18 92/63 (73) 100 05/18/18 02:48 74 18 40 05/18/18 02:30 71 18 100/58 (72) 100 05/18/18 02:00 18 Mechanical Ventilator 60 05/18/18 02:00 70 18 90/58 (69) 100 05/18/18 01:30 70 18 80/61 (67) 99 05/18/18 01:15 65 18 40 05/18/18 01:00 70 18 90/51 (64) 97 05/18/18 01:00 18 Mechanical Ventilator 60 05/18/18 00:30 74 18 92/60 (71) 97 05/18/18 00:15 98.8 74 18 90/60 (70) 97 05/18/18 00:00 Mechanical Ventilator 05/18/18 00:00 79 05/18/18 00:00 18 Mechanical Ventilator 60 05/18/18 00:00 84 18 95/60 (72) 97 05/18/18 00:00 40 05/17/18 23:30 86 18 94/55 (68) 97 05/17/18 23:11 75 18 40 05/17/18 23:00 120 18 90/55 (67) 98 05/17/18 23:00 18 Mechanical Ventilator 60 05/17/18 22:30 91 20 140/70 (93) 96 05/17/18 22:00 18 Mechanical Ventilator 60 05/17/18 22:00 93 18 150/88 (108) 98 05/17/18 21:30 114 18 133/55 (81) 97 05/17/18 21:00 93 18 110/55 (73) 93 05/17/18 21:00 91 18 40 05/17/18 21:00 18 Mechanical Ventilator 60 1/21/19 20:30 79 22 94/66 (75) 97 05/17/18 20:21 18 40 05/17/18 20:00 Mechanical Ventilator 05/17/18 20:00 18 Mechanical Ventilator 60 05/17/18 20:00 98.4 79 18 94/55 (68) 97 05/17/18 20:00 40 05/17/18 20:00 79 05/17/18 19:30 76 18 72/52 (59) 97 05/17/18 19:00 85 18 96/64 (75) 97 05/17/18 19:00 85 19 40 05/17/18 19:00 18 Mechanical Ventilator 05/17/18 18:55 103/63 05/17/18 18:30 84 18 97/18 (44) 97 05/17/18 18:00 18 Mechanical Ventilator 05/17/18 18:00 84 18 103/62 (76) 97 05/17/18 17:30 86 18 107/69 (82) 97 05/17/18 17:00 82 18 105/71 (82) 97 05/17/18 17:00 18 Mechanical Ventilator 05/17/18 16:39 88 18 40 05/17/18 16:30 86 17 102/60 (74) 98 05/17/18 16:01 98.6 87 19 97/64 (75) 98 05/17/18 16:00 Mechanical Ventilator 05/17/18 16:00 87 19 97/64 (75) 98 05/17/18 16:00 60 05/17/18 16:00 18 Mechanical Ventilator 05/17/18 16:00 85 05/17/18 15:30 84 17 101/56 (71) 97 05/17/18 15:00 18 Mechanical Ventilator 05/17/18 15:00 85 18 110/66 (81) 98 05/17/18 14:53 87 18 40 05/17/18 14:30 86 17 97/40 (59) 97 05/17/18 14:00 88 17 93/61 (72) 97 05/17/18 14:00 18 Mechanical Ventilator 05/17/18 13:30 85 18 95/55 (68) 97 05/17/18 13:07 87 18 40 05/17/18 13:00 84 18 91/56 (68) 97 05/17/18 13:00 18 Mechanical Ventilator 05/17/18 12:30 85 18 63/42 (49) 96 05/17/18 12:01 98.3 83 18 91/62 (72) 93 05/17/18 12:00 Mechanical Ventilator 05/17/18 12:00 83 18 91/62 (72) 93 05/17/18 12:00 18 Mechanical Ventilator 05/17/18 12:00 60 05/17/18 12:00 85 05/17/18 11:30 81 18 96/59 (71) 93 05/17/18 11:00 18 Mechanical Ventilator 05/17/18 11:00 78 18 97/56 (70) 93 Intake and Output 05/17/18 05/18/18 19:00 07:00 Intake Total 1153.25 ml 866 ml Output Total 1230 ml 870 ml Balance -76.75 ml -4 ml Free Water 30 ml IV Total 793.25 ml 566 ml Tube Feeding 360 ml 270 ml Output Urine Total 230 ml 370 ml Stool Total 1000 ml 500 ml # Bowel Movements 3 3 Laboratory Tests 05/18/18 05:00: Stool Occult Blood [Pending] 05/18/18 05:20: White Blood Count 9.9, Red Blood Count 4.67, Hemoglobin 11.5L, Hematocrit 38.6, Mean Corpuscular Volume 83, Mean Corpuscular Hemoglobin 24.6L, Mean Corpuscular Hemoglobin Concent 29.8L, Red Cell Distribution Width 18.6H, Platelet Count 182 , Mean Platelet Volume 9.3, Neutrophils (%) (Auto) 80.3H, Lymphocytes (%) (Auto ) 10.7L, Monocytes (%) (Auto) 6.5, Eosinophils (%) (Auto) 1.0, Basophils (%) ( Auto) 1.5, Prothrombin Time 14.0H, Prothromb Time International Ratio 1.3H, Activated Partial Thromboplast Time 37H, Sodium Level 148H, Potassium Level 3.7 , Chloride Level 114H, Carbon Dioxide Level 24, Anion Gap 10, Blood Urea Nitrogen 47H, Creatinine 2.3H, Estimat Glomerular Filtration Rate 25.8, Glucose Level 107H, Calcium Level 8.7, Magnesium Level 2.3, Total Bilirubin 1.8H, Direct Bilirubin 1.3H, Aspartate Amino Transf (AST/SGOT) 43H, Alanine Aminotransferase (ALT/SGPT) 19, Alkaline Phosphatase 212H, Total Protein 6.0L, Albumin 2.1L, Globulin 3.9, Albumin/Globulin Ratio 0.5L Height (Feet): 5 Height (Inches): 3.00 Weight (Pounds): 326 General Appearance: no apparent distress Cardiovascular: normal rate Respiratory/Chest: decreased breath sounds Abdomen: soft Extremities: other - unchanged Objective no change Tr Strange MD May 18, 2018 10:54
--- NOTE | 2018-05-18 12:00 | NUR ---
NURSE NOTES: 24hr urine collection initiated at 1200.
[2018-05-18] MEDS: fentaNYL Citrate 1000 MCG in NS 100ml IV SCH (12:04)
--- NOTE | 2018-05-18 12:45 | NUR ---
NURSE NOTES: Dr. Mckinney in facility, updated on pt's condition. daily chest xray ordered.
--- NOTE | 2018-05-18 13:00 | NUR ---
NURSE NOTES: Patient was repositioned, kept clean and dry. suctioned, oral care provided.
--- NOTE | 2018-05-18 13:34 | GI Progress Note ---
Assessment/Plan Problems: (1) DM (diabetes mellitus) ICD Codes: E11.9 - DM (diabetes mellitus) SNOMED: 52764705 (2) Intractable abdominal pain ICD Codes: R10.9 - Unspecified abdominal pain SNOMED: 28440942 (3) Elevated transaminase level ICD Codes: R74.0 - Nonspecific elevation of levels of transaminase and lactic acid dehydrogenase [LDH] SNOMED: 561635617 (4) Abdominal distension ICD Codes: R14.0 - Abdominal distension (gaseous) SNOMED: 14986887 (5) Liver disease ICD Codes: K76.9 - Liver disease, unspecified SNOMED: 779817269 (6) Acute encephalopathy ICD Codes: G93.40 - Encephalopathy, unspecified SNOMED: 01612332, 771967881 (7) Hepatic encephalopathy ICD Codes: K72.90 - Hepatic failure, unspecified without coma SNOMED: 30392106 Status: unchanged Status Narrative Discussed with Dr. Paul. Assessment/Plan OB stool negative x2 hepatitis panel negative abdominal US taken today TF trial, tolerating cont lactulose, add Xifaxan Wean off of sedatives and narcotics abdominal US ordered monitor H&H, prn transfusions rectal tube bowel regime ppi fu labs will consider endoscopy pending work up, but will require cardiac clearance given elevated troponin levels. The patient was seen and examined at bedside and all new and available data was reviewed in the patients chart. I agree with the above findings, impression and plan. (Patient seen earlier today. Signature stamp does not reflect patient encounter time.). - Robert Paul MD Subjective Subjective limited Objective Last 24 Hour Vital Signs Date Time Temp Pulse Resp B/P (MAP) Pulse Ox O2 Delivery O2 Flow Rate FiO2 05/18/18 12:30 80 20 89/69 (76) 97 05/18/18 12:04 18 Mechanical Ventilator 60 05/18/18 12:00 97.9 82 18 96/62 (73) 97 05/18/18 12:00 60 05/18/18 12:00 18 Mechanical Ventilator 60 05/18/18 12:00 Mechanical Ventilator 05/18/18 11:30 83 18 97/65 (76) 97 05/18/18 11:00 18 Mechanical Ventilator 60 05/18/18 11:00 18 Mechanical Ventilator 60 05/18/18 11:00 18 Mechanical Ventilator 60 05/18/18 11:00 88 18 116/73 (87) 99 05/18/18 10:55 84 19 40 05/18/18 10:45 18 Mechanical Ventilator 60 05/18/18 10:45 18 Mechanical Ventilator 60 05/18/18 10:45 18 Mechanical Ventilator 60 05/18/18 10:30 84 18 97/50 (66) 99 05/18/18 10:30 18 Mechanical Ventilator 60 05/18/18 10:30 18 Mechanical Ventilator 60 05/18/18 10:30 18 Mechanical Ventilator 60 05/18/18 10:15 18 Mechanical Ventilator 60 05/18/18 10:15 18 Mechanical Ventilator 60 05/18/18 10:15 18 Mechanical Ventilator 60 05/18/18 10:00 82 18 99/70 (80) 92 05/18/18 10:00 18 Mechanical Ventilator 60 05/18/18 10:00 18 Mechanical Ventilator 60 05/18/18 10:00 18 Mechanical Ventilator 60 05/18/18 09:45 18 Mechanical Ventilator 60 05/18/18 09:45 18 Mechanical Ventilator 60 05/18/18 09:45 18 Mechanical Ventilator 60 05/18/18 09:30 18 Mechanical Ventilator 60 05/18/18 09:30 18 Mechanical Ventilator 60 05/18/18 09:30 18 Mechanical Ventilator 60 05/18/18 09:30 85 18 105/73 (84) 97 05/18/18 09:04 98/53 05/18/18 09:00 18 Mechanical Ventilator 60 05/18/18 09:00 18 Mechanical Ventilator 60 05/18/18 09:00 18 Mechanical Ventilator 60 05/18/18 09:00 84 18 99/58 (72) 98 05/18/18 08:56 81 18 40 05/18/18 08:30 83 18 98/53 (68) 100 05/18/18 08:00 Mechanical Ventilator 05/18/18 08:00 78 05/18/18 08:00 98.1 84 18 98/62 (74) 98 05/18/18 08:00 17 Mechanical Ventilator 60 05/18/18 08:00 17 Mechanical Ventilator 60 05/18/18 08:00 17 Mechanical Ventilator 60 05/18/18 08:00 60 05/18/18 07:26 75 18 40 05/18/18 07:25 81 16 99/69 (79) 100 05/18/18 07:00 18 Mechanical Ventilator 60 05/18/18 06:30 80 16 110/67 (81) 100 05/18/18 06:00 79 16 103/67 (79) 100 05/18/18 06:00 18 Non-Rebreather 60 05/18/18 05:30 83 16 91/66 (74) 98 05/18/18 05:12 78 18 40 05/18/18 05:00 84 16 117/67 (84) 98 05/18/18 05:00 18 Mechanical Ventilator 60 05/18/18 04:30 83 18 100/65 (77) 100 05/18/18 04:00 60 05/18/18 04:00 23 Mechanical Ventilator 40 05/18/18 04:00 Mechanical Ventilator 05/18/18 04:00 98.6 80 18 81/65 (70) 100 05/18/18 04:00 78 05/18/18 03:30 75 18 100/63 (75) 100 05/18/18 03:00 18 Mechanical Ventilator 60 05/18/18 03:00 75 18 92/63 (73) 100 05/18/18 02:48 74 18 40 05/18/18 02:30 71 18 100/58 (72) 100 05/18/18 02:00 18 Mechanical Ventilator 60 05/18/18 02:00 70 18 90/58 (69) 100 05/18/18 01:30 70 18 80/61 (67) 99 05/18/18 01:15 65 18 40 05/18/18 01:00 70 18 90/51 (64) 97 05/18/18 01:00 18 Mechanical Ventilator 60 05/18/18 00:30 74 18 92/60 (71) 97 05/18/18 00:15 98.8 74 18 90/60 (70) 97 05/18/18 00:00 Mechanical Ventilator 05/18/18 00:00 79 05/18/18 00:00 18 Mechanical Ventilator 60 05/18/18 00:00 84 18 95/60 (72) 97 05/18/18 00:00 40 05/17/18 23:30 86 18 94/55 (68) 97 05/17/18 23:11 75 18 40 05/17/18 23:00 120 18 90/55 (67) 98 05/17/18 23:00 18 Mechanical Ventilator 60 05/17/18 22:30 91 20 140/70 (93) 96 05/17/18 22:00 18 Mechanical Ventilator 60 05/17/18 22:00 93 18 150/88 (108) 98 05/17/18 21:30 114 18 133/55 (81) 97 05/17/18 21:00 93 18 110/55 (73) 93 05/17/18 21:00 91 18 40 05/17/18 21:00 18 Mechanical Ventilator 60 05/17/18 20:30 79 22 94/66 (75) 97 05/17/18 20:21 18 40 05/17/18 20:00 Mechanical Ventilator 05/17/18 20:00 18 Mechanical Ventilator 60 05/17/18 20:00 98.4 79 18 94/55 (68) 97 05/17/18 20:00 40 05/17/18 20:00 79 05/17/18 19:30 76 18 72/52 (59) 97 05/17/18 19:00 85 18 96/64 (75) 97 05/17/18 19:00 85 19 40 05/17/18 19:00 18 Mechanical Ventilator 05/17/18 18:55 103/63 05/17/18 18:30 84 18 97/18 (44) 97 05/17/18 18:00 18 Mechanical Ventilator 05/17/18 18:00 84 18 103/62 (76) 97 05/17/18 17:30 86 18 107/69 (82) 97 05/17/18 17:00 82 18 105/71 (82) 97 05/17/18 17:00 18 Mechanical Ventilator 05/17/18 16:39 88 18 40 05/17/18 16:30 86 17 102/60 (74) 98 05/17/18 16:01 98.6 87 19 97/64 (75) 98 05/17/18 16:00 Mechanical Ventilator 05/17/18 16:00 87 19 97/64 (75) 98 05/17/18 16:00 60 05/17/18 16:00 18 Mechanical Ventilator 05/17/18 16:00 85 05/17/18 15:30 84 17 101/56 (71) 97 05/17/18 15:00 18 Mechanical Ventilator 05/17/18 15:00 85 18 110/66 (81) 98 05/17/18 14:53 87 18 40 05/17/18 14:30 86 17 97/40 (59) 97 05/17/18 14:00 88 17 93/61 (72) 97 05/17/18 14:00 18 Mechanical Ventilator Intake and Output 05/17/18 05/18/18 19:00 07:00 Intake Total 1153.25 ml 916 ml Output Total 1230 ml 870 ml Balance -76.75 ml 46 ml Free Water 30 ml IV Total 793.25 ml 616 ml Tube Feeding 360 ml 270 ml Output Urine Total 230 ml 370 ml Stool Total 1000 ml 500 ml # Bowel Movements 3 3 Laboratory Tests Test 05/18/18 05:00 05/18/18 05:20 05/18/18 10:42 Stool Occult Blood Negative (NEGATIVE) White Blood Count 9.9 K/UL (4.8-10.8) Red Blood Count 4.67 M/UL (4.20-5.40) Hemoglobin 11.5 G/DL (12.0-16.0) L Hematocrit 38.6 % (37.0-47.0) Mean Corpuscular Volume 83 FL (80-99) Mean Corpuscular Hemoglobin 24.6 PG (27.0-31.0) L Mean Corpuscular Hemoglobin Concent 29.8 G/DL (32.0-36.0) L Red Cell Distribution Width 18.6 % (11.6-14.8) H Platelet Count 182 K/UL (150-450) Mean Platelet Volume 9.3 FL (6.5-10.1) Neutrophils (%) (Auto) 80.3 % (45.0-75.0) H Lymphocytes (%) (Auto) 10.7 % (20.0-45.0) L Monocytes (%) (Auto) 6.5 % (1.0-10.0) Eosinophils (%) (Auto) 1.0 % (0.0-3.0) Basophils (%) (Auto) 1.5 % (0.0-2.0) Prothrombin Time 14.0 SEC (9.30-11.50) H Prothromb Time International Ratio 1.3 (0.9-1.1) H Activated Partial Thromboplast Time 37 SEC (23-33) H Sodium Level 148 MMOL/L (136-145) H Potassium Level 3.7 MMOL/L (3.5-5.1) Chloride Level 114 MMOL/L (98-107) H Carbon Dioxide Level 24 MMOL/L (21-32) Anion Gap 10 mmol/L (5-15) Blood Urea Nitrogen 47 mg/dL (7-18) H Creatinine 2.3 MG/DL (0.55-1.30) H Pending Estimat Glomerular Filtration Rate 25.8 mL/min (>60) Pending Glucose Level 107 MG/DL (74-106) H Calcium Level 8.7 MG/DL (8.5-10.1) Magnesium Level 2.3 MG/DL (1.8-2.4) Total Bilirubin 1.8 MG/DL (0.2-1.0) H Direct Bilirubin 1.3 MG/DL (0.0-0.3) H Aspartate Amino Transf (AST/SGOT) 43 U/L (15-37) H Alanine Aminotransferase (ALT/SGPT) 19 U/L (12-78) Alkaline Phosphatase 212 U/L (46-116) H Total Protein 6.0 G/DL (6.4-8.2) L Albumin 2.1 G/DL (3.4-5.0) L Globulin 3.9 g/dL Albumin/Globulin Ratio 0.5 (1.0-2.7) L Height (Feet): 5 Height (Inches): 3.00 Weight (Pounds): 326 General Appearance: no apparent distress, alert, obese Cardiovascular: normal rate Respiratory/Chest: normal breath sounds, no respiratory distress, other - intubated Abdominal Exam: normal bowel sounds, non tender, soft, other - NGT Extremities: non-tender Otilio Cohen PR[employer]IST May 18, 2018 13:34
[2018-05-18] MEDS ORDERED: 1/2 NS 1000ml IV ONE (15:00)
[2018-05-18] MEDS ORDERED: NS 275ml ONE (15:00)
--- NOTE | 2018-05-18 15:15 | General Progress Note ---
Assessment/Plan Status: stable Assessment/Plan S, O: Intubated, PICC line in place, patient awake, not following commands. limited exam PHYSICAL EXAMINATION: HEAD AND NECK: Atraumatic and normocephalic. CHEST: Diffuse bronchial breathing sounds. Overall decreased breathing sounds. ABDOMEN: Grossly morbidly obese. Limited evaluation. MUSCULOSKELETAL: Positive for ulcers and wounds, more diffusely edematous about 2+, superficial wounds on both legs , dressed . NEUROLOGIC: The patient is sedated and intubated. limited exam, Upper arms in soft restraint Meds: Reviewed and reconciled. Including Dopamine gtt Renal Us : reviewed ASSESSMENT: 1.Vent Dependent Respiratory failure 2. shock, ddx: septic vs cardiogenic 3. CHF exacerbation, right sided, preserved EF 3. Acute/Chronic Renal F 4. Abnormal Trop: NSTEMI vs Leakage 3. UTI/lower extremity infection Hypertension. 4. Diabetes type 2, controlled with A1c of 6.3. 5. Pain management. 6. PAH 6. GI and DVT prophylaxis. PLAN OF CARE: Grave prognosis Off pressor, preserved BP discussed with Kyler, the son today Empirical abx, per ID Will Followup with pulmonary for weaning trial Subjective Allergies: Coded Allergies: ASPIRIN (Verified Allergy, Intermediate, Hives, 01/06/13) PENICILLINS (Verified Allergy, Intermediate, Hives, 01/06/13) Objective Last 24 Hour Vital Signs Date Time Temp Pulse Resp B/P (MAP) Pulse Ox O2 Delivery O2 Flow Rate FiO2 05/18/18 14:30 84 17 130/117 (121) 96 05/18/18 14:30 18 Mechanical Ventilator 60 05/18/18 14:22 79 18 40 05/18/18 14:15 18 Mechanical Ventilator 60 05/18/18 14:00 18 Mechanical Ventilator 40 05/18/18 14:00 84 18 102/62 (75) 100 05/18/18 13:50 18 Mechanical Ventilator 60 05/18/18 13:40 18 Mechanical Ventilator 60 05/18/18 13:30 18 Mechanical Ventilator 60 05/18/18 13:30 84 18 85/51 (62) 100 05/18/18 13:00 18 Mechanical Ventilator 60 05/18/18 13:00 85 18 87/45 (59) 97 05/18/18 12:30 80 20 89/69 (76) 97 05/18/18 12:04 18 Mechanical Ventilator 60 05/18/18 12:00 97.9 82 18 96/62 (73) 97 05/18/18 12:00 60 05/18/18 12:00 18 Mechanical Ventilator 60 05/18/18 12:00 Mechanical Ventilator 05/18/18 11:30 83 18 97/65 (76) 97 05/18/18 11:00 18 Mechanical Ventilator 60 05/18/18 11:00 18 Mechanical Ventilator 60 05/18/18 11:00 18 Mechanical Ventilator 60 05/18/18 11:00 88 18 116/73 (87) 99 05/18/18 10:55 84 19 40 05/18/18 10:45 18 Mechanical Ventilator 60 05/18/18 10:45 18 Mechanical Ventilator 60 05/18/18 10:45 18 Mechanical Ventilator 60 05/18/18 10:30 84 18 97/50 (66) 99 05/18/18 10:30 18 Mechanical Ventilator 60 05/18/18 10:30 18 Mechanical Ventilator 60 05/18/18 10:30 18 Mechanical Ventilator 60 05/18/18 10:15 18 Mechanical Ventilator 60 05/18/18 10:15 18 Mechanical Ventilator 60 05/18/18 10:15 18 Mechanical Ventilator 60 05/18/18 10:00 82 18 99/70 (80) 92 05/18/18 10:00 18 Mechanical Ventilator 60 05/18/18 10:00 18 Mechanical Ventilator 60 05/18/18 10:00 18 Mechanical Ventilator 60 05/18/18 09:45 18 Mechanical Ventilator 60 05/18/18 09:45 18 Mechanical Ventilator 60 05/18/18 09:45 18 Mechanical Ventilator 60 05/18/18 09:30 18 Mechanical Ventilator 60 05/18/18 09:30 18 Mechanical Ventilator 60 05/18/18 09:30 18 Mechanical Ventilator 60 05/18/18 09:30 85 18 105/73 (84) 97 05/18/18 09:04 98/53 05/18/18 09:00 18 Mechanical Ventilator 60 05/18/18 09:00 18 Mechanical Ventilator 60 05/18/18 09:00 18 Mechanical Ventilator 60 05/18/18 09:00 84 18 99/58 (72) 98 05/18/18 08:56 81 18 40 05/18/18 08:30 83 18 98/53 (68) 100 05/18/18 08:00 Mechanical Ventilator 1/22/19 08:00 78 05/18/18 08:00 98.1 84 18 98/62 (74) 98 05/18/18 08:00 17 Mechanical Ventilator 60 05/18/18 08:00 17 Mechanical Ventilator 60 05/18/18 08:00 17 Mechanical Ventilator 60 05/18/18 08:00 60 05/18/18 07:26 75 18 40 05/18/18 07:25 81 16 99/69 (79) 100 05/18/18 07:00 18 Mechanical Ventilator 60 05/18/18 06:30 80 16 110/67 (81) 100 05/18/18 06:00 79 16 103/67 (79) 100 05/18/18 06:00 18 Non-Rebreather 60 05/18/18 05:30 83 16 91/66 (74) 98 05/18/18 05:12 78 18 40 05/18/18 05:00 84 16 117/67 (84) 98 05/18/18 05:00 18 Mechanical Ventilator 60 05/18/18 04:30 83 18 100/65 (77) 100 05/18/18 04:00 60 05/18/18 04:00 23 Mechanical Ventilator 40 05/18/18 04:00 Mechanical Ventilator 05/18/18 04:00 98.6 80 18 81/65 (70) 100 05/18/18 04:00 78 05/18/18 03:30 75 18 100/63 (75) 100 05/18/18 03:00 18 Mechanical Ventilator 60 05/18/18 03:00 75 18 92/63 (73) 100 05/18/18 02:48 74 18 40 05/18/18 02:30 71 18 100/58 (72) 100 05/18/18 02:00 18 Mechanical Ventilator 60 05/18/18 02:00 70 18 90/58 (69) 100 05/18/18 01:30 70 18 80/61 (67) 99 05/18/18 01:15 65 18 40 05/18/18 01:00 70 18 90/51 (64) 97 05/18/18 01:00 18 Mechanical Ventilator 60 05/18/18 00:30 74 18 92/60 (71) 97 05/18/18 00:15 98.8 74 18 90/60 (70) 97 05/18/18 00:00 Mechanical Ventilator 05/18/18 00:00 79 05/18/18 00:00 18 Mechanical Ventilator 60 05/18/18 00:00 84 18 95/60 (72) 97 05/18/18 00:00 40 05/17/18 23:30 86 18 94/55 (68) 97 05/17/18 23:11 75 18 40 05/17/18 23:00 120 18 90/55 (67) 98 05/17/18 23:00 18 Mechanical Ventilator 60 05/17/18 22:30 91 20 140/70 (93) 96 05/17/18 22:00 18 Mechanical Ventilator 60 05/17/18 22:00 93 18 150/88 (108) 98 05/17/18 21:30 114 18 133/55 (81) 97 05/17/18 21:00 93 18 110/55 (73) 93 05/17/18 21:00 91 18 40 05/17/18 21:00 18 Mechanical Ventilator 60 05/17/18 20:30 79 22 94/66 (75) 97 05/17/18 20:21 18 40 05/17/18 20:00 Mechanical Ventilator 05/17/18 20:00 18 Mechanical Ventilator 60 05/17/18 20:00 98.4 79 18 94/55 (68) 97 05/17/18 20:00 40 05/17/18 20:00 79 05/17/18 19:30 76 18 72/52 (59) 97 05/17/18 19:00 85 18 96/64 (75) 97 05/17/18 19:00 85 19 40 05/17/18 19:00 18 Mechanical Ventilator 05/17/18 18:55 103/63 05/17/18 18:30 84 18 97/18 (44) 97 05/17/18 18:00 18 Mechanical Ventilator 05/17/18 18:00 84 18 103/62 (76) 97 05/17/18 17:30 86 18 107/69 (82) 97 05/17/18 17:00 82 18 105/71 (82) 97 05/17/18 17:00 18 Mechanical Ventilator 05/17/18 16:39 88 18 40 05/17/18 16:30 86 17 102/60 (74) 98 05/17/18 16:01 98.6 87 19 97/64 (75) 98 05/17/18 16:00 Mechanical Ventilator 05/17/18 16:00 87 19 97/64 (75) 98 05/17/18 16:00 60 05/17/18 16:00 18 Mechanical Ventilator 05/17/18 16:00 85 05/17/18 15:30 84 17 101/56 (71) 97 Intake and Output 05/17/18 05/18/18 19:00 07:00 Intake Total 1153.25 ml 916 ml Output Total 1230 ml 870 ml Balance -76.75 ml 46 ml Free Water 30 ml IV Total 793.25 ml 616 ml Tube Feeding 360 ml 270 ml Output Urine Total 230 ml 370 ml Stool Total 1000 ml 500 ml # Bowel Movements 3 3 Laboratory Tests 05/18/18 05:00: Stool Occult Blood Negative 05/18/18 05:20: White Blood Count 9.9, Red Blood Count 4.67, Hemoglobin 11.5L, Hematocrit 38.6, Mean Corpuscular Volume 83, Mean Corpuscular Hemoglobin 24.6L, Mean Corpuscular Hemoglobin Concent 29.8L, Red Cell Distribution Width 18.6H, Platelet Count 182 , Mean Platelet Volume 9.3, Neutrophils (%) (Auto) 80.3H, Lymphocytes (%) (Auto ) 10.7L, Monocytes (%) (Auto) 6.5, Eosinophils (%) (Auto) 1.0, Basophils (%) ( Auto) 1.5, Prothrombin Time 14.0H, Prothromb Time International Ratio 1.3H, Activated Partial Thromboplast Time 37H, Sodium Level 148H, Potassium Level 3.7 , Chloride Level 114H, Carbon Dioxide Level 24, Anion Gap 10, Blood Urea Nitrogen 47H, Creatinine 2.3H, Estimat Glomerular Filtration Rate 25.8, Glucose Level 107H, Calcium Level 8.7, Magnesium Level 2.3, Total Bilirubin 1.8H, Direct Bilirubin 1.3H, Aspartate Amino Transf (AST/SGOT) 43H, Alanine Aminotransferase (ALT/SGPT) 19, Alkaline Phosphatase 212H, Total Protein 6.0L, Albumin 2.1L, Globulin 3.9, Albumin/Globulin Ratio 0.5L 05/18/18 10:42: Creatinine [Pending], Estimat Glomerular Filtration Rate [Pending] 05/18/18 14:33: Arterial Blood pH 7.371, Arterial Blood Partial Pressure CO2 43.7, Arterial Blood Partial Pressure O2 109.2H, Arterial Blood HCO3 24.8, Arterial Blood Oxygen Saturation 98.0, Arterial Blood Base Excess -0.7, Aditya Test Positive Height (Feet): 5 Height (Inches): 3.00 Weight (Pounds): 326 Margaret Mckinney MD May 18, 2018 15:15
--- NOTE | 2018-05-18 15:15 | Vascular Surgery Progress Note ---
Subjective Subjective On vent poor responsive Was on pressors Objective Objective Last 24 Hour Vital Signs Date Time Temp Pulse Resp B/P (MAP) Pulse Ox O2 Delivery O2 Flow Rate FiO2 05/18/18 14:22 79 18 40 05/18/18 12:30 80 20 89/69 (76) 97 05/18/18 12:04 18 Mechanical Ventilator 60 05/18/18 12:00 97.9 82 18 96/62 (73) 97 05/18/18 12:00 60 05/18/18 12:00 18 Mechanical Ventilator 60 05/18/18 12:00 Mechanical Ventilator 05/18/18 11:30 83 18 97/65 (76) 97 05/18/18 11:00 18 Mechanical Ventilator 60 05/18/18 11:00 18 Mechanical Ventilator 60 05/18/18 11:00 18 Mechanical Ventilator 60 05/18/18 11:00 88 18 116/73 (87) 99 05/18/18 10:55 84 19 40 05/18/18 10:45 18 Mechanical Ventilator 60 05/18/18 10:45 18 Mechanical Ventilator 60 05/18/18 10:45 18 Mechanical Ventilator 60 05/18/18 10:30 84 18 97/50 (66) 99 05/18/18 10:30 18 Mechanical Ventilator 60 05/18/18 10:30 18 Mechanical Ventilator 60 05/18/18 10:30 18 Mechanical Ventilator 60 05/18/18 10:15 18 Mechanical Ventilator 60 05/18/18 10:15 18 Mechanical Ventilator 60 05/18/18 10:15 18 Mechanical Ventilator 60 05/18/18 10:00 82 18 99/70 (80) 92 05/18/18 10:00 18 Mechanical Ventilator 60 05/18/18 10:00 18 Mechanical Ventilator 60 05/18/18 10:00 18 Mechanical Ventilator 60 05/18/18 09:45 18 Mechanical Ventilator 60 05/18/18 09:45 18 Mechanical Ventilator 60 05/18/18 09:45 18 Mechanical Ventilator 60 05/18/18 09:30 18 Mechanical Ventilator 60 05/18/18 09:30 18 Mechanical Ventilator 60 05/18/18 09:30 18 Mechanical Ventilator 60 05/18/18 09:30 85 18 105/73 (84) 97 05/18/18 09:04 98/53 05/18/18 09:00 18 Mechanical Ventilator 60 05/18/18 09:00 18 Mechanical Ventilator 60 05/18/18 09:00 18 Mechanical Ventilator 60 05/18/18 09:00 84 18 99/58 (72) 98 05/18/18 08:56 81 18 40 05/18/18 08:30 83 18 98/53 (68) 100 05/18/18 08:00 Mechanical Ventilator 05/18/18 08:00 78 05/18/18 08:00 98.1 84 18 98/62 (74) 98 05/18/18 08:00 17 Mechanical Ventilator 60 05/18/18 08:00 17 Mechanical Ventilator 60 05/18/18 08:00 17 Mechanical Ventilator 60 05/18/18 08:00 60 05/18/18 07:26 75 18 40 05/18/18 07:25 81 16 99/69 (79) 100 05/18/18 07:00 18 Mechanical Ventilator 60 05/18/18 06:30 80 16 110/67 (81) 100 05/18/18 06:00 79 16 103/67 (79) 100 05/18/18 06:00 18 Non-Rebreather 60 05/18/18 05:30 83 16 91/66 (74) 98 05/18/18 05:12 78 18 40 05/18/18 05:00 84 16 117/67 (84) 98 05/18/18 05:00 18 Mechanical Ventilator 60 05/18/18 04:30 83 18 100/65 (77) 100 05/18/18 04:00 60 05/18/18 04:00 23 Mechanical Ventilator 40 05/18/18 04:00 Mechanical Ventilator 05/18/18 04:00 98.6 80 18 81/65 (70) 100 05/18/18 04:00 78 05/18/18 03:30 75 18 100/63 (75) 100 05/18/18 03:00 18 Mechanical Ventilator 60 05/18/18 03:00 75 18 92/63 (73) 100 05/18/18 02:48 74 18 40 05/18/18 02:30 71 18 100/58 (72) 100 05/18/18 02:00 18 Mechanical Ventilator 60 05/18/18 02:00 70 18 90/58 (69) 100 05/18/18 01:30 70 18 80/61 (67) 99 05/18/18 01:15 65 18 40 05/18/18 01:00 70 18 90/51 (64) 97 05/18/18 01:00 18 Mechanical Ventilator 60 05/18/18 00:30 74 18 92/60 (71) 97 05/18/18 00:15 98.8 74 18 90/60 (70) 97 05/18/18 00:00 Mechanical Ventilator 05/18/18 00:00 79 05/18/18 00:00 18 Mechanical Ventilator 60 05/18/18 00:00 84 18 95/60 (72) 97 05/18/18 00:00 40 05/17/18 23:30 86 18 94/55 (68) 97 05/17/18 23:11 75 18 40 05/17/18 23:00 120 18 90/55 (67) 98 05/17/18 23:00 18 Mechanical Ventilator 60 05/17/18 22:30 91 20 140/70 (93) 96 05/17/18 22:00 18 Mechanical Ventilator 60 05/17/18 22:00 93 18 150/88 (108) 98 05/17/18 21:30 114 18 133/55 (81) 97 05/17/18 21:00 93 18 110/55 (73) 93 05/17/18 21:00 91 18 40 05/17/18 21:00 18 Mechanical Ventilator 60 05/17/18 20:30 79 22 94/66 (75) 97 05/17/18 20:21 18 40 05/17/18 20:00 Mechanical Ventilator 05/17/18 20:00 18 Mechanical Ventilator 60 05/17/18 20:00 98.4 79 18 94/55 (68) 97 05/17/18 20:00 40 05/17/18 20:00 79 05/17/18 19:30 76 18 72/52 (59) 97 05/17/18 19:00 85 18 96/64 (75) 97 05/17/18 19:00 85 19 40 05/17/18 19:00 18 Mechanical Ventilator 05/17/18 18:55 103/63 05/17/18 18:30 84 18 97/18 (44) 97 05/17/18 18:00 18 Mechanical Ventilator 05/17/18 18:00 84 18 103/62 (76) 97 05/17/18 17:30 86 18 107/69 (82) 97 05/17/18 17:00 82 18 105/71 (82) 97 05/17/18 17:00 18 Mechanical Ventilator 05/17/18 16:39 88 18 40 05/17/18 16:30 86 17 102/60 (74) 98 05/17/18 16:01 98.6 87 19 97/64 (75) 98 05/17/18 16:00 Mechanical Ventilator 05/17/18 16:00 87 19 97/64 (75) 98 05/17/18 16:00 60 05/17/18 16:00 18 Mechanical Ventilator 05/17/18 16:00 85 05/17/18 15:30 84 17 101/56 (71) 97 05/17/18 15:00 18 Mechanical Ventilator 05/17/18 15:00 85 18 110/66 (81) 98 Intake and Output 05/17/18 05/18/18 19:00 07:00 Intake Total 1153.25 ml 916 ml Output Total 1230 ml 870 ml Balance -76.75 ml 46 ml Free Water 30 ml IV Total 793.25 ml 616 ml Tube Feeding 360 ml 270 ml Output Urine Total 230 ml 370 ml Stool Total 1000 ml 500 ml # Bowel Movements 3 3 Laboratory Tests Test 05/18/18 05:00 05/18/18 05:20 05/18/18 10:42 05/18/18 14:33 Stool Occult Blood Negative (NEGATIVE) White Blood Count 9.9 K/UL (4.8-10.8) Red Blood Count 4.67 M/UL (4.20-5.40) Hemoglobin 11.5 G/DL (12.0-16.0) L Hematocrit 38.6 % (37.0-47.0) Mean Corpuscular Volume 83 FL (80-99) Mean Corpuscular Hemoglobin 24.6 PG (27.0-31.0) L Mean Corpuscular Hemoglobin Concent 29.8 G/DL (32.0-36.0) L Red Cell Distribution Width 18.6 % (11.6-14.8) H Platelet Count 182 K/UL (150-450) Mean Platelet Volume 9.3 FL (6.5-10.1) Neutrophils (%) (Auto) 80.3 % (45.0-75.0) H Lymphocytes (%) (Auto) 10.7 % (20.0-45.0) L Monocytes (%) (Auto) 6.5 % (1.0-10.0) Eosinophils (%) (Auto) 1.0 % (0.0-3.0) Basophils (%) (Auto) 1.5 % (0.0-2.0) Prothrombin Time 14.0 SEC (9.30-11.50) H Prothromb Time International Ratio 1.3 (0.9-1.1) H Activated Partial Thromboplast Time 37 SEC (23-33) H Sodium Level 148 MMOL/L (136-145) H Potassium Level 3.7 MMOL/L (3.5-5.1) Chloride Level 114 MMOL/L (98-107) H Carbon Dioxide Level 24 MMOL/L (21-32) Anion Gap 10 mmol/L (5-15) Blood Urea Nitrogen 47 mg/dL (7-18) H Creatinine 2.3 MG/DL (0.55-1.30) H Pending Estimat Glomerular Filtration Rate 25.8 mL/min (>60) Pending Glucose Level 107 MG/DL (74-106) H Calcium Level 8.7 MG/DL (8.5-10.1) Magnesium Level 2.3 MG/DL (1.8-2.4) Total Bilirubin 1.8 MG/DL (0.2-1.0) H Direct Bilirubin 1.3 MG/DL (0.0-0.3) H Aspartate Amino Transf (AST/SGOT) 43 U/L (15-37) H Alanine Aminotransferase (ALT/SGPT) 19 U/L (12-78) Alkaline Phosphatase 212 U/L (46-116) H Total Protein 6.0 G/DL (6.4-8.2) L Albumin 2.1 G/DL (3.4-5.0) L Globulin 3.9 g/dL Albumin/Globulin Ratio 0.5 (1.0-2.7) L Arterial Blood pH 7.371 (7.350-7.450) Arterial Blood Partial Pressure CO2 43.7 mmHg (35.0-45.0) Arterial Blood Partial Pressure O2 109.2 mmHg (75.0-100.0) H Arterial Blood HCO3 24.8 mmol/L (22.0-26.0) Arterial Blood Oxygen Saturation 98.0 % (95-100) Arterial Blood Base Excess -0.7 (-2-2) Aditya Test Positive Height (Feet): 5 Height (Inches): 3.00 Weight (Pounds): 326 Objective On vent cvs rrr lung rhonchi b/l abd soft obese with anasarca leg edema + femorals absent pop pedal pulses Leg stasis ulcers Assessment/Plan Assessment Resp failure on vent Shock on pressors Heart failure--systolic & diastolic Renal failure with anasarca pulm edema Morbid obesity 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 & severe leg ischemia Leg stasis ulcers Encephalopathy Plan ICU optimization and supportive care Renal f/u--may benefit from dialysis therapy Heart failure mx per cardiology DVT and decub precautions Nutrition Will need selective leg angiogram to assess for percutaneous leg revascularization once stable out of icu and if ok with renal d/w patient icu nurse at bedside Nicko Victoria MD May 18, 2018 15:15
--- NOTE | 2018-05-18 15:43 | Pulmonolgy Critical Care Note ---
Critical Care - Asmt/Plan Assessment/Plan: Pulmonary Progress Note Critical Care - Asmt/Plan Assessment/Plan: 67 y/o female w/ DM, CKD, morbid obesity admitted with b/l LE cellulitis and altered mental status. Problem List: 1. Altered mental status 2. Acute hypercapnic respiratory failure 3. Bilateral lower extremity cellulitis 4. RACHELLE on CKD 5. DM 6. Morbid obesity 7. 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: Continue pressors, continue to monitor HR/BP Renal: check electrolytes Infectious Disease: continue antibiotics Neurologic: keep patient comfortable Prophylaxis: Heparin Disposition: keep in ICU Time Spent (Minutes): other - 45 minutes Critical Care - Objective Vital Signs Noted Status: sedated on ventilator Condition: critical HEENT: atraumatic, normocephalic Lungs: rales Heart: HR/BP unstable Abdomen: soft, non-tender Extremities: other - Edema with erythema and open ulcers/sores Decubiti: none Micro: Microbiology Date/Time Source Procedure Growth Status 05/12/18 14:30 Blood Blood Culture - Preliminary NO GROWTH AFTER 24 HOURS Resulted 05/12/18 14:15 Blood Blood Culture - Preliminary NO GROWTH AFTER 24 HOURS Resulted 05/13/18 08:45 Urine,Clean Catch Urine Culture - Preliminary NO GROWTH AFTER 24 HOURS Resulted 05/12/18 18:20 Leg Right Gram Stain - Final Resulted 05/12/18 18:20 Leg Right Wound Culture Pending Resulted 05/12/18 18:20 Leg Left Gram Stain - Final Resulted 05/12/18 18:20 Leg Left Wound Culture Pending Resulted 05/12/18 17:00 Rectum VRE Culture - Final NO VANCOMYCIN RESISTANT ENTEROCOCCUS ... Complete 05/12/18 17:00 Rectum - Final NO CARBAPENEM-RESISTANT ENTEROBACTERI... Complete Critical Care - Subjective ROS Limited/Unobtainable: Yes ICU Day: 2 Interval Events: Worsening CO2 retention despite increasing BiPAP and increased lethargy. Now mostly unresponsive. BP has been low but stable MAP 60. No fevers. Ammonia higher today. Condition: critical EKG Rhythm: Sinus Bradycardia FI02: 60 Sputum Amount: None Time of note does not reflect time patient seen Critical Care - Objective Last 24 Hour Vital Signs Date Time Temp Pulse Resp B/P (MAP) Pulse Ox O2 Delivery O2 Flow Rate FiO2 05/18/18 15:38 77 18 Mechanical Ventilator 40 05/18/18 15:37 77 18 40 05/18/18 15:00 18 Mechanical Ventilator 40 05/18/18 14:45 18 Mechanical Ventilator 40 05/18/18 14:30 84 17 130/117 (121) 96 05/18/18 14:30 18 Mechanical Ventilator 60 05/18/18 14:22 79 18 40 05/18/18 14:15 18 Mechanical Ventilator 60 05/18/18 14:00 18 Mechanical Ventilator 40 05/18/18 14:00 84 18 102/62 (75) 100 05/18/18 13:50 18 Mechanical Ventilator 60 05/18/18 13:40 18 Mechanical Ventilator 60 05/18/18 13:30 18 Mechanical Ventilator 60 05/18/18 13:30 84 18 85/51 (62) 100 05/18/18 13:00 18 Mechanical Ventilator 60 05/18/18 13:00 85 18 87/45 (59) 97 05/18/18 12:30 80 20 89/69 (76) 97 05/18/18 12:04 18 Mechanical Ventilator 60 05/18/18 12:00 97.9 82 18 96/62 (73) 97 05/18/18 12:00 60 05/18/18 12:00 18 Mechanical Ventilator 60 05/18/18 12:00 Mechanical Ventilator 05/18/18 11:30 83 18 97/65 (76) 97 05/18/18 11:00 18 Mechanical Ventilator 60 05/18/18 11:00 18 Mechanical Ventilator 60 05/18/18 11:00 18 Mechanical Ventilator 60 05/18/18 11:00 88 18 116/73 (87) 99 05/18/18 10:55 84 19 40 05/18/18 10:45 18 Mechanical Ventilator 60 05/18/18 10:45 18 Mechanical Ventilator 60 05/18/18 10:45 18 Mechanical Ventilator 60 05/18/18 10:30 84 18 97/50 (66) 99 05/18/18 10:30 18 Mechanical Ventilator 60 05/18/18 10:30 18 Mechanical Ventilator 60 05/18/18 10:30 18 Mechanical Ventilator 60 05/18/18 10:15 18 Mechanical Ventilator 60 05/18/18 10:15 18 Mechanical Ventilator 60 05/18/18 10:15 18 Mechanical Ventilator 60 05/18/18 10:00 82 18 99/70 (80) 92 05/18/18 10:00 18 Mechanical Ventilator 60 05/18/18 10:00 18 Mechanical Ventilator 60 05/18/18 10:00 18 Mechanical Ventilator 60 05/18/18 09:45 18 Mechanical Ventilator 60 05/18/18 09:45 18 Mechanical Ventilator 60 05/18/18 09:45 18 Mechanical Ventilator 60 05/18/18 09:30 18 Mechanical Ventilator 60 05/18/18 09:30 18 Mechanical Ventilator 60 05/18/18 09:30 18 Mechanical Ventilator 60 05/18/18 09:30 85 18 105/73 (84) 97 05/18/18 09:04 98/53 05/18/18 09:00 18 Mechanical Ventilator 60 05/18/18 09:00 18 Mechanical Ventilator 60 05/18/18 09:00 18 Mechanical Ventilator 60 05/18/18 09:00 84 18 99/58 (72) 98 05/18/18 08:56 81 18 40 05/18/18 08:30 83 18 98/53 (68) 100 05/18/18 08:00 Mechanical Ventilator 05/18/18 08:00 78 05/18/18 08:00 98.1 84 18 98/62 (74) 98 05/18/18 08:00 17 Mechanical Ventilator 60 05/18/18 08:00 17 Mechanical Ventilator 60 05/18/18 08:00 17 Mechanical Ventilator 60 05/18/18 08:00 60 05/18/18 07:26 75 18 40 05/18/18 07:25 81 16 99/69 (79) 100 05/18/18 07:00 18 Mechanical Ventilator 60 05/18/18 06:30 80 16 110/67 (81) 100 05/18/18 06:00 79 16 103/67 (79) 100 05/18/18 06:00 18 Non-Rebreather 60 05/18/18 05:30 83 16 91/66 (74) 98 05/18/18 05:12 78 18 40 05/18/18 05:00 84 16 117/67 (84) 98 05/18/18 05:00 18 Mechanical Ventilator 60 05/18/18 04:30 83 18 100/65 (77) 100 05/18/18 04:00 60 05/18/18 04:00 23 Mechanical Ventilator 40 05/18/18 04:00 Mechanical Ventilator 05/18/18 04:00 98.6 80 18 81/65 (70) 100 05/18/18 04:00 78 05/18/18 03:30 75 18 100/63 (75) 100 05/18/18 03:00 18 Mechanical Ventilator 60 05/18/18 03:00 75 18 92/63 (73) 100 05/18/18 02:48 74 18 40 05/18/18 02:30 71 18 100/58 (72) 100 05/18/18 02:00 18 Mechanical Ventilator 60 05/18/18 02:00 70 18 90/58 (69) 100 05/18/18 01:30 70 18 80/61 (67) 99 05/18/18 01:15 65 18 40 05/18/18 01:00 70 18 90/51 (64) 97 05/18/18 01:00 18 Mechanical Ventilator 60 05/18/18 00:30 74 18 92/60 (71) 97 05/18/18 00:15 98.8 74 18 90/60 (70) 97 05/18/18 00:00 Mechanical Ventilator 05/18/18 00:00 79 05/18/18 00:00 18 Mechanical Ventilator 60 05/18/18 00:00 84 18 95/60 (72) 97 05/18/18 00:00 40 05/17/18 23:30 86 18 94/55 (68) 97 05/17/18 23:11 75 18 40 05/17/18 23:00 120 18 90/55 (67) 98 05/17/18 23:00 18 Mechanical Ventilator 60 05/17/18 22:30 91 20 140/70 (93) 96 05/17/18 22:00 18 Mechanical Ventilator 60 05/17/18 22:00 93 18 150/88 (108) 98 05/17/18 21:30 114 18 133/55 (81) 97 05/17/18 21:00 93 18 110/55 (73) 93 05/17/18 21:00 91 18 40 05/17/18 21:00 18 Mechanical Ventilator 60 05/17/18 20:30 79 22 94/66 (75) 97 05/17/18 20:21 18 40 05/17/18 20:00 Mechanical Ventilator 05/17/18 20:00 18 Mechanical Ventilator 60 05/17/18 20:00 98.4 79 18 94/55 (68) 97 05/17/18 20:00 40 05/17/18 20:00 79 05/17/18 19:30 76 18 72/52 (59) 97 05/17/18 19:00 85 18 96/64 (75) 97 05/17/18 19:00 85 19 40 05/17/18 19:00 18 Mechanical Ventilator 05/17/18 18:55 103/63 05/17/18 18:30 84 18 97/18 (44) 97 05/17/18 18:00 18 Mechanical Ventilator 05/17/18 18:00 84 18 103/62 (76) 97 05/17/18 17:30 86 18 107/69 (82) 97 05/17/18 17:00 82 18 105/71 (82) 97 05/17/18 17:00 18 Mechanical Ventilator 05/17/18 16:39 88 18 40 05/17/18 16:30 86 17 102/60 (74) 98 05/17/18 16:01 98.6 87 19 97/64 (75) 98 05/17/18 16:00 Mechanical Ventilator 05/17/18 16:00 87 19 97/64 (75) 98 05/17/18 16:00 60 05/17/18 16:00 18 Mechanical Ventilator 05/17/18 16:00 85 Accucheck: 104 Critical Care - Subjective ROS Limited/Unobtainable: No FI02: 40 Vent Support Breath Rate: 18 Vent Support Mode: AC Vent Tidal Volume: 550 Sputum Amount: Small PEEP: 5.0 PIP: 35 Tube Feeding Amount: 45 I&O: Intake and Output 05/17/18 05/18/18 19:00 07:00 Intake Total 1153.25 ml 916 ml Output Total 1230 ml 870 ml Balance -76.75 ml 46 ml Free Water 30 ml IV Total 793.25 ml 616 ml Tube Feeding 360 ml 270 ml Output Urine Total 230 ml 370 ml Stool Total 1000 ml 500 ml # Bowel Movements 3 3 ET-Tube: 7.5 ET Position: 24 Lawrence Wills MD May 18, 2018 15:42
--- NOTE | 2018-05-18 15:45 | NUR ---
NURSE NOTES: Left a message to Dr. Ritchie regarding weaning trial order per Dr. Mckinney, awaiting for a call back.
--- NOTE | 2018-05-18 16:40 | NUR ---
NURSE NOTES: Dr. Wills at bedside. Per Hilda MONTESINOS with weaning trial. titrate off fentanyl gtt before vent weaning. If tolerating, NPO at 2am for possible extubation tomorrow.
--- NOTE | 2018-05-18 16:49 | Diagnostic Imaging Report ---
Indication: Abnormal liver function tests. Abnormal renal function tests Technique: Barrera-scale and duplex images of the upper abdomen were obtained Comparison: none Findings: Exam is somewhat limited due to patient body habitus. Gallbladder is nondistended. No definite calculi demonstrated. However, gallbladder wall appears thickened, measuring 9 mm thick sonographic Sainz's sign could not be assessed Common bile duct measures 5 mm in diameter. No intrahepatic biliary ductal dilatation. Liver demonstrates normal echogenicity, no focal abnormality. It is enlarged Portal vein and hepatic veins are patent, but the portal vein demonstrates to and fro flow on spectral Doppler. Pancreas is obscured by bowel gas. Spleen is unremarkable. Left kidney measures 10.5 cm in length. Right kidney measures 9.5 cm length. Both kidneys demonstrate normal echogenicity. There is no hydronephrosis. Left kidney demonstrates a lower pole cyst . Abdominal aorta is obscured by bowel gas . There is a moderate amount of ascites fluid present. No definite hepatic surface nodularity. The bladder is empty, contains a Anaya catheter Impression: Limited exam, as described Ascites Borderline hepatomegaly Thick-walled gallbladder, likely in part artifact of nondistention, and in part due to hemodynamic factors causing the ascites. No definite gallstones. Acute cholecystitis not completely excludable, due to the wall thickening, and hepatobiliary scan should be considered if there is high clinical suspicion for such Negative for dilated ducts To and fro flow within the main portal vein, could indicate portal hypertension Incidental finding left lower pole renal cyst Empty bladder with a Anaya catheter Note inability to visualize the abdominal aorta and pancreas
--- NOTE | 2018-05-18 17:07 | Infectious Diseases Prog Note ---
Assessment/Plan Problems: (1) Bilateral lower leg cellulitis Assessment & Plan: continue cefazoline and aztreonam empirically with local wounds care . patient has refused MRI and CT of the legs to rule out deep abscess or osteomyelitis. await on bone scan of both legs once clinically stable . 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 (2) Nonhealing ulcer of left lower extremity Assessment & Plan: wound culture is growing gram negative rods and diphtheroids , already on aztreonam and cefazolin , continue local wound care and dressings change as per wound care service (3) Painful legs and moving toes Assessment & Plan: suspect due to the above , will order venous doppler to rule out DVT (4) CKD (chronic kidney disease) Assessment & Plan: avoid nephrotoxics , renally dosed antibiotics as per pharmacy (5) DM (diabetes mellitus) Assessment & Plan: recommend tight glycemic control to keep blood glucose between 100-140 (6) Acute encephalopathy Assessment & Plan: suspect metabolic with high ammonia level, continue lactulose , consult neurology if no improvement with brain image (7) Acute hypoxemic respiratory failure Assessment & Plan: due to the above , intubated on mechanical ventilation, pulmonary is following Subjective ROS Limited/Unobtainable: Yes Allergies: Coded Allergies: ASPIRIN (Verified Allergy, Intermediate, Hives, 01/06/13) PENICILLINS (Verified Allergy, Intermediate, Hives, 01/06/13) Subjective she was still intubated on mechanical ventilation in ICU , sedated , responsive to verbal commands, afebrile, NAD . has good UOP , on pressor Objective Vital Signs Last 24 Hour Vital Signs Date Time Temp Pulse Resp B/P (MAP) Pulse Ox O2 Delivery O2 Flow Rate FiO2 05/18/18 16:50 18 Mechanical Ventilator 40 05/18/18 16:45 18 Mechanical Ventilator 40 05/18/18 16:40 18 Mechanical Ventilator 40 05/18/18 16:30 79 18 89/42 (58) 100 05/18/18 16:00 40 05/18/18 16:00 98.1 71 18 89/52 (64) 100 05/18/18 16:00 78 05/18/18 16:00 18 Mechanical Ventilator 40 05/18/18 16:00 Mechanical Ventilator 05/18/18 15:38 77 18 Mechanical Ventilator 40 05/18/18 15:37 77 18 40 05/18/18 15:30 74 18 88/42 (57) 100 05/18/18 15:00 76 17 82/51 (61) 100 05/18/18 15:00 18 Mechanical Ventilator 40 05/18/18 14:45 18 Mechanical Ventilator 40 05/18/18 14:30 84 17 130/117 (121) 96 05/18/18 14:30 18 Mechanical Ventilator 60 05/18/18 14:22 79 18 40 05/18/18 14:15 18 Mechanical Ventilator 60 05/18/18 14:00 18 Mechanical Ventilator 40 05/18/18 14:00 84 18 102/62 (75) 100 05/18/18 13:50 18 Mechanical Ventilator 60 05/18/18 13:40 18 Mechanical Ventilator 60 05/18/18 13:30 18 Mechanical Ventilator 60 05/18/18 13:30 84 18 85/51 (62) 100 05/18/18 13:00 18 Mechanical Ventilator 60 05/18/18 13:00 85 18 87/45 (59) 97 05/18/18 12:30 80 20 89/69 (76) 97 05/18/18 12:04 18 Mechanical Ventilator 60 05/18/18 12:00 97.9 82 18 96/62 (73) 97 05/18/18 12:00 60 05/18/18 12:00 18 Mechanical Ventilator 60 05/18/18 12:00 Mechanical Ventilator 05/18/18 11:30 83 18 97/65 (76) 97 05/18/18 11:00 18 Mechanical Ventilator 60 05/18/18 11:00 18 Mechanical Ventilator 60 05/18/18 11:00 18 Mechanical Ventilator 60 05/18/18 11:00 88 18 116/73 (87) 99 05/18/18 10:55 84 19 40 05/18/18 10:45 18 Mechanical Ventilator 60 05/18/18 10:45 18 Mechanical Ventilator 60 05/18/18 10:45 18 Mechanical Ventilator 60 05/18/18 10:30 84 18 97/50 (66) 99 05/18/18 10:30 18 Mechanical Ventilator 60 05/18/18 10:30 18 Mechanical Ventilator 60 05/18/18 10:30 18 Mechanical Ventilator 60 05/18/18 10:15 18 Mechanical Ventilator 60 05/18/18 10:15 18 Mechanical Ventilator 60 05/18/18 10:15 18 Mechanical Ventilator 60 05/18/18 10:00 82 18 99/70 (80) 92 05/18/18 10:00 18 Mechanical Ventilator 60 05/18/18 10:00 18 Mechanical Ventilator 60 05/18/18 10:00 18 Mechanical Ventilator 60 05/18/18 09:45 18 Mechanical Ventilator 60 05/18/18 09:45 18 Mechanical Ventilator 60 05/18/18 09:45 18 Mechanical Ventilator 60 05/18/18 09:30 18 Mechanical Ventilator 60 05/18/18 09:30 18 Mechanical Ventilator 60 05/18/18 09:30 18 Mechanical Ventilator 60 05/18/18 09:30 85 18 105/73 (84) 97 05/18/18 09:04 98/53 05/18/18 09:00 18 Mechanical Ventilator 60 05/18/18 09:00 18 Mechanical Ventilator 60 05/18/18 09:00 18 Mechanical Ventilator 60 05/18/18 09:00 84 18 99/58 (72) 98 05/18/18 08:56 81 18 40 05/18/18 08:30 83 18 98/53 (68) 100 05/18/18 08:00 Mechanical Ventilator 05/18/18 08:00 78 05/18/18 08:00 98.1 84 18 98/62 (74) 98 05/18/18 08:00 17 Mechanical Ventilator 60 05/18/18 08:00 17 Mechanical Ventilator 60 05/18/18 08:00 17 Mechanical Ventilator 60 05/18/18 08:00 60 05/18/18 07:26 75 18 40 05/18/18 07:25 81 16 99/69 (79) 100 05/18/18 07:00 18 Mechanical Ventilator 60 05/18/18 06:30 80 16 110/67 (81) 100 05/18/18 06:00 79 16 103/67 (79) 100 05/18/18 06:00 18 Non-Rebreather 60 05/18/18 05:30 83 16 91/66 (74) 98 05/18/18 05:12 78 18 40 05/18/18 05:00 84 16 117/67 (84) 98 05/18/18 05:00 18 Mechanical Ventilator 60 05/18/18 04:30 83 18 100/65 (77) 100 05/18/18 04:00 60 05/18/18 04:00 23 Mechanical Ventilator 40 05/18/18 04:00 Mechanical Ventilator 05/18/18 04:00 98.6 80 18 81/65 (70) 100 05/18/18 04:00 78 05/18/18 03:30 75 18 100/63 (75) 100 05/18/18 03:00 18 Mechanical Ventilator 60 05/18/18 03:00 75 18 92/63 (73) 100 05/18/18 02:48 74 18 40 05/18/18 02:30 71 18 100/58 (72) 100 05/18/18 02:00 18 Mechanical Ventilator 60 05/18/18 02:00 70 18 90/58 (69) 100 05/18/18 01:30 70 18 80/61 (67) 99 05/18/18 01:15 65 18 40 05/18/18 01:00 70 18 90/51 (64) 97 05/18/18 01:00 18 Mechanical Ventilator 60 05/18/18 00:30 74 18 92/60 (71) 97 05/18/18 00:15 98.8 74 18 90/60 (70) 97 05/18/18 00:00 Mechanical Ventilator 05/18/18 00:00 79 05/18/18 00:00 18 Mechanical Ventilator 60 05/18/18 00:00 84 18 95/60 (72) 97 05/18/18 00:00 40 05/17/18 23:30 86 18 94/55 (68) 97 05/17/18 23:11 75 18 40 05/17/18 23:00 120 18 90/55 (67) 98 05/17/18 23:00 18 Mechanical Ventilator 60 05/17/18 22:30 91 20 140/70 (93) 96 05/17/18 22:00 18 Mechanical Ventilator 60 05/17/18 22:00 93 18 150/88 (108) 98 05/17/18 21:30 114 18 133/55 (81) 97 05/17/18 21:00 93 18 110/55 (73) 93 05/17/18 21:00 91 18 40 05/17/18 21:00 18 Mechanical Ventilator 60 05/17/18 20:30 79 22 94/66 (75) 97 05/17/18 20:21 18 40 05/17/18 20:00 Mechanical Ventilator 1/21/19 20:00 18 Mechanical Ventilator 60 05/17/18 20:00 98.4 79 18 94/55 (68) 97 05/17/18 20:00 40 05/17/18 20:00 79 05/17/18 19:30 76 18 72/52 (59) 97 05/17/18 19:00 85 18 96/64 (75) 97 05/17/18 19:00 85 19 40 05/17/18 19:00 18 Mechanical Ventilator 05/17/18 18:55 103/63 05/17/18 18:30 84 18 97/18 (44) 97 05/17/18 18:00 18 Mechanical Ventilator 05/17/18 18:00 84 18 103/62 (76) 97 05/17/18 17:30 86 18 107/69 (82) 97 Height (Feet): 5 Height (Inches): 3.00 Weight (Pounds): 326 General Appearance: WD/WN, no acute distress, other - edematous HEENT: normocephalic, atraumatic, anicteric, mucous membranes moist, PERRL, pharynx normal, supple, no JVD Respiratory/Chest: chest wall non-tender, normal breath sounds, no respiratory distress, no accessory muscle use, decreased breath sounds, crackles/rales Cardiovascular: normal peripheral pulses, normal rate, regular rhythm, no gallop/murmur, no JVD Abdomen: soft, non tender, no organomegaly, non distended, no mass, no scars, hypoactive bowel sounds Extremities: no cyanosis, no clubbing, other - edema with left leg pressure wounds Skin: no rash, no lesions, ulcers Neurologic/Psychiatric: alert, oriented x 3, responsive Lymphatic: no neck adenopathy, no groin adenopathy Musculoskeletal: normal muscle bulk, no effusion Laboratory Tests Test 05/18/18 05:00 05/18/18 05:20 05/18/18 10:42 05/18/18 14:33 Stool Occult Blood Negative (NEGATIVE) White Blood Count 9.9 K/UL (4.8-10.8) Red Blood Count 4.67 M/UL (4.20-5.40) Hemoglobin 11.5 G/DL (12.0-16.0) L Hematocrit 38.6 % (37.0-47.0) Mean Corpuscular Volume 83 FL (80-99) Mean Corpuscular Hemoglobin 24.6 PG (27.0-31.0) L Mean Corpuscular Hemoglobin Concent 29.8 G/DL (32.0-36.0) L Red Cell Distribution Width 18.6 % (11.6-14.8) H Platelet Count 182 K/UL (150-450) Mean Platelet Volume 9.3 FL (6.5-10.1) Neutrophils (%) (Auto) 80.3 % (45.0-75.0) H Lymphocytes (%) (Auto) 10.7 % (20.0-45.0) L Monocytes (%) (Auto) 6.5 % (1.0-10.0) Eosinophils (%) (Auto) 1.0 % (0.0-3.0) Basophils (%) (Auto) 1.5 % (0.0-2.0) Prothrombin Time 14.0 SEC (9.30-11.50) H Prothromb Time International Ratio 1.3 (0.9-1.1) H Activated Partial Thromboplast Time 37 SEC (23-33) H Sodium Level 148 MMOL/L (136-145) H Potassium Level 3.7 MMOL/L (3.5-5.1) Chloride Level 114 MMOL/L (98-107) H Carbon Dioxide Level 24 MMOL/L (21-32) Anion Gap 10 mmol/L (5-15) Blood Urea Nitrogen 47 mg/dL (7-18) H Creatinine 2.3 MG/DL (0.55-1.30) H Pending Estimat Glomerular Filtration Rate 25.8 mL/min (>60) Pending Glucose Level 107 MG/DL (74-106) H Calcium Level 8.7 MG/DL (8.5-10.1) Magnesium Level 2.3 MG/DL (1.8-2.4) Total Bilirubin 1.8 MG/DL (0.2-1.0) H Direct Bilirubin 1.3 MG/DL (0.0-0.3) H Aspartate Amino Transf (AST/SGOT) 43 U/L (15-37) H Alanine Aminotransferase (ALT/SGPT) 19 U/L (12-78) Alkaline Phosphatase 212 U/L (46-116) H Total Protein 6.0 G/DL (6.4-8.2) L Albumin 2.1 G/DL (3.4-5.0) L Globulin 3.9 g/dL Albumin/Globulin Ratio 0.5 (1.0-2.7) L Arterial Blood pH 7.371 (7.350-7.450) Arterial Blood Partial Pressure CO2 43.7 mmHg (35.0-45.0) Arterial Blood Partial Pressure O2 109.2 mmHg (75.0-100.0) H Arterial Blood HCO3 24.8 mmol/L (22.0-26.0) Arterial Blood Oxygen Saturation 98.0 % (95-100) Arterial Blood Base Excess -0.7 (-2-2) Aditya Test Positive Current Medications Medications (Trade) Dose Ordered Sig/Toya Route PRN Reason Start Time Stop Time Status Last Admin Dose Admin Allopurinol (Zyloprim) 300 mg DAILY NG 05/17/18 09:00 06/14/18 08:59 05/18/18 09:03 Ascorbic Acid (Vitamin C) 500 mg TWICE A DAY NG 05/18/18 09:00 06/15/18 17:59 05/18/18 09:02 Atorvastatin Calcium (Lipitor) 20 mg BEDTIME ORAL 05/17/18 21:00 06/13/18 20:59 05/17/18 21:10 Aztreonam 2 gm/ Dextrose 110 ml @ 220 mls/hr Q8HR@0000,0800,1600 IVPB 05/17/18 16:00 05/24/18 15:59 05/18/18 16:27 Cefazolin Sodium 50 ml @ 100 mls/hr Q8HR IV 05/17/18 14:00 05/24/18 13:59 05/18/18 14:36 Chlorhexidine Gluconate (Romy-Hex 2%) 1 applic DAILY@2000 TOPIC 05/14/18 20:00 06/13/18 19:59 05/17/18 20:20 Clopidogrel Bisulfate (Plavix) 75 mg DAILY NG 05/18/18 09:00 06/14/18 08:59 05/18/18 09:03 Dextrose (Dextrose 50%) 25 ml Q30M PRN IV Hypoglycemia 05/13/18 21:00 06/11/18 16:59 Dextrose (Dextrose 50%) 50 ml Q30M PRN IV Hypoglycemia 05/13/18 21:00 06/11/18 16:59 Dopamine HCl/ Dextrose 250 ml @ 0 mls/hr Q24H IV 05/15/18 19:00 06/14/18 18:59 05/16/18 18:05 Fentanyl Citrate 1000 mcg/Sodium Chloride 100 ml @ 0 mls/hr Q24H IV 05/15/18 22:00 05/22/18 21:59 05/18/18 12:04 Insulin Aspart (NovoLOG) Q6HR SUBQ 05/18/18 13:00 06/11/18 12:59 Lactulose (Cephulac) 30 gm Q8HR NG 05/14/18 14:00 06/12/18 17:59 05/18/18 14:37 Lorazepam (Ativan 2mg/ml 1ml) 2 mg Q4H PRN IV For Anxiety 05/14/18 12:00 05/21/18 11:59 05/14/18 16:38 Midodrine (Pro-Amatine) 2.5 mg THREE TIMES A DAY NG 05/18/18 13:00 06/17/18 12:59 05/18/18 12:10 Multivitamins (Multivitamins) 1 tab DAILY ORAL 05/18/18 09:00 06/16/18 08:59 05/18/18 09:04 Nitroglycerin (Ntg) 1 patch Q24H TDERMAL 05/15/18 09:00 06/14/18 08:59 05/18/18 09:04 Pantoprazole (Protonix) 40 mg EVERY 12 HOURS IVP 05/14/18 21:00 06/13/18 20:59 05/18/18 09:03 Povidone Iodine (Betadine Gretchen) 1 applic BID TOPIC 05/16/18 09:00 06/15/18 08:59 05/18/18 09:05 Rifaximin (Xifaxan) 550 mg EVERY 12 HOURS NG 05/18/18 09:00 05/20/18 20:59 05/18/18 09:03 Sodium Chloride 500 ml @ 999 mls/hr Q31M PRN IV For hypotension 05/14/18 01:30 06/13/18 01:29 05/14/18 06:10 Juice Wilkerson M.D. May 18, 2018 17:07
[2018-05-18] MEDS: DOPamine 400mg/250ml 250 ML IV SCH (17:31)
--- NOTE | 2018-05-18 17:34 | Diagnostic Imaging Report ---
Indication: Shortness of breath Technique: One view of the chest Comparison: 05/15/2018 Findings: The heart is enlarged. There are bilateral interstitial congestive changes again demonstrated. Stable satisfactory position of endotracheal tube. Left arm PICC remains. Findings are overall unchanged Impression: Unchanged, over 3 days, findings as above.
--- NOTE | 2018-05-18 18:00 | NUR ---
NURSE NOTES: Patient more awake, titrating off fentanyl drip. on bilateral soft restraints. pulses present
--- NOTE | 2018-05-18 19:10 | NUR ---
HAND-OFF: Report given to LUCIO Holliday.
--- NOTE | 2018-05-18 19:13 | NUR ---
RESPIRATORY NOTE: pt placed on CPAP per MD order of CPAP 5 PS 10. pt is tolerating it so far and seems to be comfortable with settings. NIF -35, FVC 375 pt tried PS of 8 and pt gestured that its 'hard to breath'. ETT size 7.5/ 24 at the lip at the right side. no s/s of respiratory distress. will continue to monitor. pt. RN notified. vent is plugged into red outlet, ambu bag @ bedside.
--- NOTE | 2018-05-18 19:30 | NUR ---
NURSE NOTES: Received pt in no acute distress, awake, mildly restless. Remains orally intubated but currently on weaning trials(CPAP, PS 8). Pt unable to tolerate PS of 8, RT increased to 10. Will check ABG's in 1 hr. Sedation off at this time. Afebrile, NSR on the monitor, BP stable. PICC on FLORENCIO intact, IV at TKO. OGT in place, TF with Glucerna 1.5 infusing at 45 ml/h with 0 residuals. Rectal tube in place, draining liquid brownish stool; FC patent, on 24 hr urine collection; specimen /neff bag on ice. BLE dressing dry and intact. Will continue to monitor
--- NOTE | 2018-05-18 20:00 | NUR ---
NURSE NOTES: Dtr at bedside. Plan of care explained.
[2018-05-18] MEDS: Dyna-Hex 2% Top Sol 2oz TOPIC SCH (20:42)
[2018-05-18] MEDS: Atorvastatin 20mg tab ORAL SCH (20:43)
--- NOTE | 2018-05-18 20:45 | NUR ---
RESPIRATORY NOTE:pt placed back to previous settings after the SBT trial. Pepe Taylor RN. Increased FiO2 to 50% due to desaturation. pt is now 97%. LUCIO Clemente aware. will continue to monitor.
--- NOTE | 2018-05-18 21:00 | NUR ---
NURSE NOTES: Called Dr Wills for ABG result 1 hr post CPAP. Ph 7.27, pCO2 56.6. Pt back on AC mode and restarted Fentanyl gtt at 50mcg/h. ordered weaning trials again in AM.
--- NOTE | 2018-05-18 23:10 | Cardiology Progress Note ---
Assessment/Plan Assessment/Plan 1. Dyspnea most likely secondary to acute hypoxic hypercarbic respiratory failure. 2D echocardiography shows normal LV systolic function with a normal left atrial pressure, however e/o right heart failure. 2. Right heart failure, pre-load sensitive, avoid aggressive diuretic use, evidence of RA and RV dilatation and severe RV systolic dysfunction, associated pulmonary HTN, ? type. 3. Paroxysmal atrial fibrillation, currently sinus rhythm, continue with amiodarone and Eliquis. 4. Hypotension likely due to RV failure, resolved, grim prognosis. 5. Slight elevation of troponin I level in this patient could be due to RV strain/failure or due to type 2 non-ST elevation myocardial infarction. Subjective Subjective Sinus rhythm at rate of 91. Intubated on FiO2 of 50%. Off pressors. Objective Last 24 Hour Vital Signs Date Time Temp Pulse Resp B/P (MAP) Pulse Ox O2 Delivery O2 Flow Rate FiO2 05/18/18 22:51 94 18 50 05/18/18 22:00 98 18 110/69 (83) 97 05/18/18 22:00 18 Mechanical Ventilator 50 05/18/18 21:00 87 21 136/72 (93) 97 05/18/18 21:00 21 Mechanical Ventilator 50 05/18/18 20:45 84 25 50 05/18/18 20:00 Mechanical Ventilator 05/18/18 20:00 98.8 91 19 121/75 (90) 99 05/18/18 20:00 91 05/18/18 20:00 40 05/18/18 19:13 73 16 40 05/18/18 19:00 90 18 121/75 (90) 100 05/18/18 18:30 18 Mechanical Ventilator 40 05/18/18 18:30 88 18 107/79 (88) 95 05/18/18 18:15 18 Mechanical Ventilator 40 05/18/18 18:00 73 18 107/68 (81) 100 05/18/18 18:00 18 Mechanical Ventilator 40 05/18/18 17:50 18 Mechanical Ventilator 40 05/18/18 17:50 77 18 40 05/18/18 17:45 18 Mechanical Ventilator 40 05/18/18 17:40 18 Mechanical Ventilator 40 05/18/18 17:30 73 18 107/68 (81) 95 05/18/18 17:20 18 Mechanical Ventilator 40 05/18/18 17:10 18 Mechanical Ventilator 40 05/18/18 17:00 18 Mechanical Ventilator 40 05/18/18 17:00 74 18 84/52 (63) 100 05/18/18 16:55 18 Mechanical Ventilator 40 05/18/18 16:50 18 Mechanical Ventilator 40 05/18/18 16:45 18 Mechanical Ventilator 40 05/18/18 16:40 18 Mechanical Ventilator 40 05/18/18 16:30 79 18 89/42 (58) 100 05/18/18 16:00 40 05/18/18 16:00 98.1 71 18 89/52 (64) 100 05/18/18 16:00 78 05/18/18 16:00 18 Mechanical Ventilator 40 05/18/18 16:00 Mechanical Ventilator 05/18/18 15:38 77 18 Mechanical Ventilator 40 05/18/18 15:37 77 18 40 05/18/18 15:30 74 18 88/42 (57) 100 05/18/18 15:00 76 17 82/51 (61) 100 05/18/18 15:00 18 Mechanical Ventilator 40 05/18/18 14:45 18 Mechanical Ventilator 40 05/18/18 14:30 84 17 130/117 (121) 96 05/18/18 14:30 18 Mechanical Ventilator 60 05/18/18 14:22 79 18 40 05/18/18 14:15 18 Mechanical Ventilator 60 05/18/18 14:00 18 Mechanical Ventilator 40 05/18/18 14:00 84 18 102/62 (75) 100 05/18/18 13:50 18 Mechanical Ventilator 60 05/18/18 13:40 18 Mechanical Ventilator 60 05/18/18 13:30 18 Mechanical Ventilator 60 05/18/18 13:30 84 18 85/51 (62) 100 05/18/18 13:00 18 Mechanical Ventilator 60 05/18/18 13:00 85 18 87/45 (59) 97 05/18/18 12:30 80 20 89/69 (76) 97 05/18/18 12:04 18 Mechanical Ventilator 60 05/18/18 12:00 97.9 82 18 96/62 (73) 97 05/18/18 12:00 60 05/18/18 12:00 18 Mechanical Ventilator 60 05/18/18 12:00 Mechanical Ventilator 05/18/18 11:30 83 18 97/65 (76) 97 05/18/18 11:00 18 Mechanical Ventilator 60 05/18/18 11:00 18 Mechanical Ventilator 60 05/18/18 11:00 18 Mechanical Ventilator 60 05/18/18 11:00 88 18 116/73 (87) 99 05/18/18 10:55 84 19 40 05/18/18 10:45 18 Mechanical Ventilator 60 05/18/18 10:45 18 Mechanical Ventilator 60 05/18/18 10:45 18 Mechanical Ventilator 60 05/18/18 10:30 84 18 97/50 (66) 99 05/18/18 10:30 18 Mechanical Ventilator 60 05/18/18 10:30 18 Mechanical Ventilator 60 05/18/18 10:30 18 Mechanical Ventilator 60 05/18/18 10:15 18 Mechanical Ventilator 60 05/18/18 10:15 18 Mechanical Ventilator 60 05/18/18 10:15 18 Mechanical Ventilator 60 05/18/18 10:00 82 18 99/70 (80) 92 05/18/18 10:00 18 Mechanical Ventilator 60 05/18/18 10:00 18 Mechanical Ventilator 60 05/18/18 10:00 18 Mechanical Ventilator 60 05/18/18 09:45 18 Mechanical Ventilator 60 05/18/18 09:45 18 Mechanical Ventilator 60 05/18/18 09:45 18 Mechanical Ventilator 60 05/18/18 09:30 18 Mechanical Ventilator 60 05/18/18 09:30 18 Mechanical Ventilator 60 05/18/18 09:30 18 Mechanical Ventilator 60 05/18/18 09:30 85 18 105/73 (84) 97 05/18/18 09:04 98/53 05/18/18 09:00 18 Mechanical Ventilator 60 05/18/18 09:00 18 Mechanical Ventilator 60 05/18/18 09:00 18 Mechanical Ventilator 60 05/18/18 09:00 84 18 99/58 (72) 98 05/18/18 08:56 81 18 40 05/18/18 08:30 83 18 98/53 (68) 100 05/18/18 08:00 Mechanical Ventilator 05/18/18 08:00 78 05/18/18 08:00 98.1 84 18 98/62 (74) 98 05/18/18 08:00 17 Mechanical Ventilator 60 05/18/18 08:00 17 Mechanical Ventilator 60 05/18/18 08:00 17 Mechanical Ventilator 60 05/18/18 08:00 60 05/18/18 07:26 75 18 40 05/18/18 07:25 81 16 99/69 (79) 100 05/18/18 07:00 18 Mechanical Ventilator 60 05/18/18 06:30 80 16 110/67 (81) 100 05/18/18 06:00 79 16 103/67 (79) 100 05/18/18 06:00 18 Non-Rebreather 60 05/18/18 05:30 83 16 91/66 (74) 98 05/18/18 05:12 78 18 40 05/18/18 05:00 84 16 117/67 (84) 98 05/18/18 05:00 18 Mechanical Ventilator 60 05/18/18 04:30 83 18 100/65 (77) 100 05/18/18 04:00 60 05/18/18 04:00 23 Mechanical Ventilator 40 05/18/18 04:00 Mechanical Ventilator 05/18/18 04:00 98.6 80 18 81/65 (70) 100 05/18/18 04:00 78 05/18/18 03:30 75 18 100/63 (75) 100 05/18/18 03:00 18 Mechanical Ventilator 60 05/18/18 03:00 75 18 92/63 (73) 100 05/18/18 02:48 74 18 40 05/18/18 02:30 71 18 100/58 (72) 100 05/18/18 02:00 18 Mechanical Ventilator 60 05/18/18 02:00 70 18 90/58 (69) 100 05/18/18 01:30 70 18 80/61 (67) 99 05/18/18 01:15 65 18 40 05/18/18 01:00 70 18 90/51 (64) 97 05/18/18 01:00 18 Mechanical Ventilator 60 05/18/18 00:30 74 18 92/60 (71) 97 05/18/18 00:15 98.8 74 18 90/60 (70) 97 05/18/18 00:00 Mechanical Ventilator 05/18/18 00:00 79 05/18/18 00:00 18 Mechanical Ventilator 60 05/18/18 00:00 84 18 95/60 (72) 97 05/18/18 00:00 40 05/17/18 23:30 86 18 94/55 (68) 97 05/17/18 23:11 75 18 40 Intake and Output 05/17/18 05/18/18 19:00 07:00 Intake Total 1153.25 ml 916 ml Output Total 1230 ml 870 ml Balance -76.75 ml 46 ml Free Water 30 ml IV Total 793.25 ml 616 ml Tube Feeding 360 ml 270 ml Output Urine Total 230 ml 370 ml Stool Total 1000 ml 500 ml # Bowel Movements 3 3 2D Echo: LVEF 55%, RV pressure overload, ANNE MARIE/RVE, reduced RV systolic fxn Laboratory Tests Test 05/18/18 05:00 05/18/18 05:20 05/18/18 10:42 05/18/18 14:33 Stool Occult Blood Negative (NEGATIVE) White Blood Count 9.9 K/UL (4.8-10.8) Red Blood Count 4.67 M/UL (4.20-5.40) Hemoglobin 11.5 G/DL (12.0-16.0) L Hematocrit 38.6 % (37.0-47.0) Mean Corpuscular Volume 83 FL (80-99) Mean Corpuscular Hemoglobin 24.6 PG (27.0-31.0) L Mean Corpuscular Hemoglobin Concent 29.8 G/DL (32.0-36.0) L Red Cell Distribution Width 18.6 % (11.6-14.8) H Platelet Count 182 K/UL (150-450) Mean Platelet Volume 9.3 FL (6.5-10.1) Neutrophils (%) (Auto) 80.3 % (45.0-75.0) H Lymphocytes (%) (Auto) 10.7 % (20.0-45.0) L Monocytes (%) (Auto) 6.5 % (1.0-10.0) Eosinophils (%) (Auto) 1.0 % (0.0-3.0) Basophils (%) (Auto) 1.5 % (0.0-2.0) Prothrombin Time 14.0 SEC (9.30-11.50) H Prothromb Time International Ratio 1.3 (0.9-1.1) H Activated Partial Thromboplast Time 37 SEC (23-33) H Sodium Level 148 MMOL/L (136-145) H Potassium Level 3.7 MMOL/L (3.5-5.1) Chloride Level 114 MMOL/L (98-107) H Carbon Dioxide Level 24 MMOL/L (21-32) Anion Gap 10 mmol/L (5-15) Blood Urea Nitrogen 47 mg/dL (7-18) H Creatinine 2.3 MG/DL (0.55-1.30) H Pending Estimat Glomerular Filtration Rate 25.8 mL/min (>60) Pending Glucose Level 107 MG/DL (74-106) H Calcium Level 8.7 MG/DL (8.5-10.1) Magnesium Level 2.3 MG/DL (1.8-2.4) Total Bilirubin 1.8 MG/DL (0.2-1.0) H Direct Bilirubin 1.3 MG/DL (0.0-0.3) H Aspartate Amino Transf (AST/SGOT) 43 U/L (15-37) H Alanine Aminotransferase (ALT/SGPT) 19 U/L (12-78) Alkaline Phosphatase 212 U/L (46-116) H Total Protein 6.0 G/DL (6.4-8.2) L Albumin 2.1 G/DL (3.4-5.0) L Globulin 3.9 g/dL Albumin/Globulin Ratio 0.5 (1.0-2.7) L Arterial Blood pH 7.371 (7.350-7.450) Arterial Blood Partial Pressure CO2 43.7 mmHg (35.0-45.0) Arterial Blood Partial Pressure O2 109.2 mmHg (75.0-100.0) H Arterial Blood HCO3 24.8 mmol/L (22.0-26.0) Arterial Blood Oxygen Saturation 98.0 % (95-100) Arterial Blood Base Excess -0.7 (-2-2) Aditya Test Positive Test 05/18/18 20:30 Arterial Blood pH 7.270 (7.350-7.450) Arterial Blood Partial Pressure CO2 56.6 mmHg (35.0-45.0) *H Arterial Blood Partial Pressure O2 68.3 mmHg (75.0-100.0) L Arterial Blood HCO3 25.9 mmol/L (22.0-26.0) Arterial Blood Oxygen Saturation 90.1 % (95-100) L Arterial Blood Base Excess -1.7 (-2-2) Aditya Test Positive Objective HEENT: Atraumatic and normocephalic. Anicteric. Pupils are equal, round, and reactive to light and accommodation. Extraocular muscles intact. NECK: Cannot be assessed due to positive inspiratory pressure. No carotid bruit. Carotid upstroke is 2+ bilaterally. CVS: Normal S1 and S2. Regular rate and rhythm. RV heave, No murmurs, gallops , or rubs. LUNGS: Diminished breath sounds in both lungs with rhonchi bilaterally. ABDOMEN: Soft, nontender, and nondistended. No hepatosplenomegaly. Positive bowel sounds. EXTREMITIES: No evidence of edema, clubbing, or cyanosis. There is venous stasis of lower extremities with associated ulceration. Justice Erickson MD May 18, 2018 23:10
[2018-05-19] VITALS (38 sets, daily range): BP systolic 87–138; BP diastolic 32–91
--- NOTE | 2018-05-19 | NUR ---
NURSE NOTES: Calm, asleep; no distress. VSS.
--- NOTE | 2018-05-19 02:00 | NUR ---
NURSE NOTES: sleeping, calm. Oral suctioning and oral care done. Tolerating current vent parameters and current TF. 24hr collection amilcar progress. UOP 10-20ml/h.
--- NOTE | 2018-05-19 04:00 | NUR ---
NURSE NOTES: Complete bed bath given. Skin on buttocks and sacral area intact. BLE dressing changed. Painted bilat toes with Betadine soln. Irrigated rectal tube. 24hr urine collection continues till 12 noon today; specimen on ice. Afebrile, BP stable. PICC patent. IV tubings changed.
[2018-05-19] MEDS: fentaNYL Citrate 1000 MCG in NS 100ml IV SCH (04:21)
--- NOTE | 2018-05-19 05:00 | NUR ---
NURSE NOTES: Fentanyl gtt placed on hold in lieu of weaning parameters for this AM. Bilat soft wrist restraints maintained.
[2018-05-19 05:32] LABS: BASOPHILS % (AUTO) 2.2 % (0.0-2.0); EOSINOPHILS % (AUTO) 0.8 % (0.0-3.0); HEMATOCRIT 39.5 % (37.0-47.0); HEMOGLOBIN 11.7 G/DL (12.0-16.0); LYMPHOCYTES % (AUTO) 9.3 % (20.0-45.0); MEAN CORPUSCULAR VOLUME 83 FL (80-99); MONOCYTES % (AUTO) 8.6 % (1.0-10.0); NEUTROPHILS % (AUTO) 79.1 % (45.0-75.0); PLATELET COUNT 203 K/UL (150-450); RED BLOOD COUNT 4.75 M/UL (4.20-5.40); RED CELL DISTRIBUTION WIDTH 19.3 % (11.6-14.8); WHITE BLOOD COUNT 10.5 K/UL (4.8-10.8)
[2018-05-19] MEDS: ceFAZolin 2gm/50ml Premix 50 ML IV SCH ×2 (05:42→14:00)
[2018-05-19] MEDS: Lactulose 10gm/15ml UDC NG SCH ×3 (05:43→21:29)
[2018-05-19] MEDS: NovoLOG Insulin Flexpen SUBQ SCH ×3 (05:43→17:49)
[2018-05-19 06:24] LABS: ALANINE AMINOTRANSFERASE 12 U/L (12-78); ALBUMIN 2.1 G/DL (3.4-5.0); ALBUMIN/GLOBULIN RATIO 0.5 (1.0-2.7); ALKALINE PHOSPHATASE 231 U/L (46-116); ANION GAP 8 mmol/L (5-15); ASPARTATE AMINO TRANSFERASE 45 U/L (15-37); BILIRUBIN,TOTAL 1.4 MG/DL (0.2-1.0); BLOOD UREA NITROGEN 52 mg/dL (7-18); CARBON DIOXIDE 26 MMOL/L (21-32); CHLORIDE 114 MMOL/L (98-107); CREATININE 2.2 MG/DL (0.55-1.30); GAMMA GLUTAMYL TRANSPEPTIDASE 152 U/L (5-85); PHOSPHORUS 3.3 MG/DL (2.5-4.9); POTASSIUM 3.7 MMOL/L (3.5-5.1); SODIUM 148 MMOL/L (136-145)
[2018-05-19 06:27] LABS: BILIRUBIN,DIRECT 1.1 MG/DL (0.0-0.3)
--- NOTE | 2018-05-19 07:20 | NUR ---
HAND-OFF: Report given to Brian Donahue RN.
--- NOTE | 2018-05-19 08:30 | NUR ---
NURSE NOTES: Patient placed on weaning with setting of CPAP, PS 10, FIO2 50%, and peep of 5, patient remains awake and responsive with no distress noted, fentanyl and feeding remains on hold for weaning protocol. wound care provided on toes with Betadine applied, will continue to monitor.
--- NOTE | 2018-05-19 09:25 | NUR ---
RADIOLOGY DEPT CHEST X-RAY DONE.-P.DYE
[2018-05-19] MEDS: Pantoprazole Inj IVP SCH ×2 (09:45→21:29)
[2018-05-19] MEDS: Allopurinol 100mg Tab NG SCH (09:47)
[2018-05-19] MEDS: Ascorbic Acid 500mg tab NG SCH ×2 (09:47→17:49)
[2018-05-19] MEDS: Nitroglycerin Patch 0.4mg TDERMAL SCH (09:48)
[2018-05-19] MEDS: [UNRECOGNIZED DRUG - OTHER] IVPB SCH ×4 (09:48→15:26)
[2018-05-19] MEDS: AZTREONAM IVPB SCH ×4 (09:48→15:26)
[2018-05-19] MEDS: Betadine 4oz Bottle TOPIC SCH ×2 (09:49→17:50)
--- NOTE | 2018-05-19 10:15 | NUR ---
NURSE NOTES: Morning medication given to patient through OG-tube, Betadine applied to bilateral toes, sensation remains on the arch of the foot bilaterally when stroked with cotton applicator, she remains weaning with Cpap of 10, TV: 550, with FIo2 of 50%, and peep of 5, she remains saturating at 96-99% with no distress noted, she remains on restraints for attempting to remove ET-tube, she remains able to move upper extremities with strength of 3/5, she retains full abduction and adduction range of motion, will continue plan of care.
[2018-05-19] MEDS ORDERED: 1/2 NS 1000ml IV ONE (11:12)
[2018-05-19] MEDS ORDERED: NS 275ml ONE (11:12)
--- NOTE | 2018-05-19 11:39 | Diagnostic Imaging Report ---
Indication: Cough Technique: One view of the chest Comparison: 05/18/2018 Findings: Patient is rotated to the right. Stable satisfactory position of endotracheal tube. The heart is enlarged. Interstitial and airspace congestion appears minimally improved. Impression: Slightly improved but persistent interstitial and airspace congestion, over one day
--- NOTE | 2018-05-19 12:00 | NUR ---
RD ASSESSMENT & RECOMMENDATIONS SEE CARE ACTIVITY FOR COMPLETE ASSESSMENT DAILY ESTIMATED NEEDS: Needs based on Critical care, wounds, DM, morbid obesity (71.5kg abw) 20-25 kcals/kg 9354-0525 total kcals 1.25-2 g protein/kg 89-143 g total protein Fluid per MD. mL/kg total fluid mLs NUTRITION DIAGNOSIS: 1) Increased protein needs r/t wound healing as evidenced by pt w/ chronic LLE ulcers. 2) Morbid obesity R/T excessive energy intake as evidenced by BMI>50 per guidelines. 3) Swallowing difficulty r/t respiratory status as evidenced by pt now orally intubated, on OGT feeding CURRENT TF:Glucerna 1.5 @ 45ml/hr x 24 hrs PO DIET RECOMMENDATIONS: OYSTER CULTURIST eval s/p extubation-> CCHO LOW, CARDIAC/ texture per OYSTER CULTURIST ENTERAL NUTRITION RECOMMENDATIONS: Glucerna 1.5 @45ml /hr x24 hrs + Prosource qdaily to provide 1080ml, 12960 kcal, 89g +11g prot, 820ml free H2O - Add PROSOURCE 1 pack daily to better meet est prot needs - Flush per MD/ HOB over 30 degrees ADDITIONAL RECOMMENDATIONS: 1) RE-calibrate bed scale (wts per EMR: 200#, 316#, 341#) 2) Wound care: add NELY BID 3) Monitor lytes, replete as needed . . . .
--- NOTE | 2018-05-19 12:04 | NUR ---
NURSE NOTES: Patient remains on weaning trial, remains on CPAP with PS of 10 with FIO2 50% with peep of 5, she remains saturating at 98% with RR of 19 with BP 129/73 with HR at 94 in sinus rhythm, no distress noted breathing with 475-525ml and is coughing thick secretions, she remain son restraints on bilaterally wrist with skin intact, pulses are present distal to restraints. will continue to monitor.
--- NOTE | 2018-05-19 12:06 | GI Progress Note ---
Assessment/Plan Problems: (1) DM (diabetes mellitus) ICD Codes: E11.9 - DM (diabetes mellitus) SNOMED: 43713784 (2) Intractable abdominal pain ICD Codes: R10.9 - Unspecified abdominal pain SNOMED: 79706575 (3) Elevated transaminase level ICD Codes: R74.0 - Nonspecific elevation of levels of transaminase and lactic acid dehydrogenase [LDH] SNOMED: 267116790 (4) Abdominal distension ICD Codes: R14.0 - Abdominal distension (gaseous) SNOMED: 85483418 (5) Liver disease ICD Codes: K76.9 - Liver disease, unspecified SNOMED: 424733711 (6) Acute encephalopathy ICD Codes: G93.40 - Encephalopathy, unspecified SNOMED: 57132765, 928075954 (7) Hepatic encephalopathy ICD Codes: K72.90 - Hepatic failure, unspecified without coma SNOMED: 57449133 Status: unchanged Status Narrative Discussed with Dr. Paul. Assessment/Plan OB stool negative x2 hepatitis panel negative abdominal US reviewed >> - Ascites - Borderline hepatomegaly - Thick-walled gallbladder, likely in part artifact of nondistention, and in part due to hemodynamic factors causing the ascites. No definite gallstones. Acute cholecystitis not completely excludable, due to the wall thickening, and hepatobiliary scan should be considered if there is high clinical suspicion for such. - Negative for dilated ducts - To and fro flow within the main portal vein, could indicate portal hypertension Will consider HIDA and paracentesis when respiratory status stabilizes TF trial, tolerating cont lactulose Xifaxan Wean off of sedatives and narcotics monitor H&H, prn transfusions rectal tube bowel regime ppi fu labs will consider endoscopy pending work up, but will require cardiac clearance given elevated troponin levels. The patient was seen and examined at bedside and all new and available data was reviewed in the patients chart. I agree with the above findings, impression and plan. (Patient seen earlier today. Signature stamp does not reflect patient encounter time.). - Robert Paul MD Subjective Subjective limited Objective Last 24 Hour Vital Signs Date Time Temp Pulse Resp B/P (MAP) Pulse Ox O2 Delivery O2 Flow Rate FiO2 05/19/18 11:17 87 19 50 05/19/18 11:00 75 25 138/80 (99) 99 05/19/18 10:12 99 05/19/18 10:00 73 23 137/66 (89) 99 05/19/18 09:48 115/90 05/19/18 09:26 92 24 50 05/19/18 09:00 75 22 130/58 (82) 98 05/19/18 08:06 79 25 50 05/19/18 08:02 82 22 50 05/19/18 08:00 50 05/19/18 08:00 80 05/19/18 08:00 99.4 79 23 111/73 (86) 97 05/19/18 07:00 67 18 114/48 (70) 97 05/19/18 06:00 85 18 101/78 (86) 99 05/19/18 05:30 84 18 122/72 (89) 99 05/19/18 05:13 77 18 50 05/19/18 05:00 83 18 115/71 (86) 99 05/19/18 04:30 87 19 110/80 (90) 05/19/18 04:21 18 Mechanical Ventilator 50 05/19/18 04:00 98.8 83 21 111/82 (92) 05/19/18 04:00 18 Mechanical Ventilator 50 05/19/18 04:00 78 05/19/18 04:00 Mechanical Ventilator 05/19/18 04:00 50 05/19/18 03:30 68 17 119/91 (100) 98 05/19/18 03:00 69 18 108/63 (78) 99 05/19/18 03:00 18 Mechanical Ventilator 50 05/19/18 02:56 64 18 50 05/19/18 02:30 84 18 108/67 (81) 99 05/19/18 02:00 18 Mechanical Ventilator 50 05/19/18 02:00 83 18 107/69 (82) 99 05/19/18 01:08 68 18 50 05/19/18 01:00 65 18 103/71 (82) 99 05/19/18 01:00 18 Mechanical Ventilator 50 05/19/18 00:00 81 05/19/18 00:00 50 05/19/18 00:00 18 Mechanical Ventilator 45 05/19/18 00:00 Mechanical Ventilator 05/19/18 00:00 98.7 81 18 122/71 (88) 99 05/18/18 23:00 84 18 114/71 (85) 98 05/18/18 23:00 18 Mechanical Ventilator 45 05/18/18 22:51 94 18 50 05/18/18 22:00 98 18 110/69 (83) 97 05/18/18 22:00 18 Mechanical Ventilator 50 05/18/18 21:00 87 21 136/72 (93) 97 05/18/18 21:00 21 Mechanical Ventilator 50 05/18/18 20:45 84 25 50 05/18/18 20:00 Mechanical Ventilator 05/18/18 20:00 98.8 91 19 121/75 (90) 99 05/18/18 20:00 91 05/18/18 20:00 40 05/18/18 19:13 73 16 40 05/18/18 19:00 90 18 121/75 (90) 100 05/18/18 18:30 18 Mechanical Ventilator 40 05/18/18 18:30 88 18 107/79 (88) 95 05/18/18 18:15 18 Mechanical Ventilator 40 05/18/18 18:00 73 18 107/68 (81) 100 05/18/18 18:00 18 Mechanical Ventilator 40 05/18/18 17:50 18 Mechanical Ventilator 40 05/18/18 17:50 77 18 40 05/18/18 17:45 18 Mechanical Ventilator 40 05/18/18 17:40 18 Mechanical Ventilator 40 05/18/18 17:30 73 18 107/68 (81) 95 05/18/18 17:20 18 Mechanical Ventilator 40 05/18/18 17:10 18 Mechanical Ventilator 40 05/18/18 17:00 18 Mechanical Ventilator 40 05/18/18 17:00 74 18 84/52 (63) 100 05/18/18 16:55 18 Mechanical Ventilator 40 05/18/18 16:50 18 Mechanical Ventilator 40 05/18/18 16:45 18 Mechanical Ventilator 40 05/18/18 16:40 18 Mechanical Ventilator 40 05/18/18 16:30 79 18 89/42 (58) 100 05/18/18 16:00 40 05/18/18 16:00 98.1 71 18 89/52 (64) 100 05/18/18 16:00 78 05/18/18 16:00 18 Mechanical Ventilator 40 05/18/18 16:00 Mechanical Ventilator 05/18/18 15:38 77 18 Mechanical Ventilator 40 05/18/18 15:37 77 18 40 05/18/18 15:30 74 18 88/42 (57) 100 05/18/18 15:00 76 17 82/51 (61) 100 05/18/18 15:00 18 Mechanical Ventilator 40 05/18/18 14:45 18 Mechanical Ventilator 40 05/18/18 14:30 84 17 130/117 (121) 96 05/18/18 14:30 18 Mechanical Ventilator 60 05/18/18 14:22 79 18 40 05/18/18 14:15 18 Mechanical Ventilator 60 05/18/18 14:00 18 Mechanical Ventilator 40 05/18/18 14:00 84 18 102/62 (75) 100 05/18/18 13:50 18 Mechanical Ventilator 60 05/18/18 13:40 18 Mechanical Ventilator 60 05/18/18 13:30 18 Mechanical Ventilator 60 05/18/18 13:30 84 18 85/51 (62) 100 05/18/18 13:00 18 Mechanical Ventilator 60 05/18/18 13:00 85 18 87/45 (59) 97 05/18/18 12:30 80 20 89/69 (76) 97 05/18/18 12:04 18 Mechanical Ventilator 60 Intake and Output 05/18/18 05/19/18 19:00 07:00 Intake Total 1090.25 ml 925 ml Output Total 620 ml 350 ml Balance 470.25 ml 575 ml Free Water 160 ml IV Total 570.25 ml 250 ml Tube Feeding 360 ml 495 ml Other 180 ml Output Urine Total 320 ml 250 ml Stool Total 300 ml 100 ml Laboratory Tests Test 05/18/18 14:33 05/18/18 20:30 05/19/18 04:30 05/19/18 10:30 Arterial Blood pH 7.371 (7.350-7.450) 7.270 (7.350-7.450) 7.292 (7.350-7.450) Arterial Blood Partial Pressure CO2 43.7 mmHg (35.0-45.0) 56.6 mmHg (35.0-45.0) *H 55.3 mmHg (35.0-45.0) *H Arterial Blood Partial Pressure O2 109.2 mmHg (75.0-100.0) H 68.3 mmHg (75.0-100.0) L 73.4 mmHg (75.0-100.0) L Arterial Blood HCO3 24.8 mmol/L (22.0-26.0) 25.9 mmol/L (22.0-26.0) 26.1 mmol/L (22.0-26.0) H Arterial Blood Oxygen Saturation 98.0 % (95-100) 90.1 % (95-100) L 92.6 % (95-100) L Arterial Blood Base Excess -0.7 (-2-2) -1.7 (-2-2) 1.2 (-2-2) Aditya Test Positive Positive Positive White Blood Count 10.5 K/UL (4.8-10.8) Red Blood Count 4.75 M/UL (4.20-5.40) Hemoglobin 11.7 G/DL (12.0-16.0) L Hematocrit 39.5 % (37.0-47.0) Mean Corpuscular Volume 83 FL (80-99) Mean Corpuscular Hemoglobin 24.7 PG (27.0-31.0) L Mean Corpuscular Hemoglobin Concent 29.7 G/DL (32.0-36.0) L Red Cell Distribution Width 19.3 % (11.6-14.8) H Platelet Count 203 K/UL (150-450) Mean Platelet Volume 11.5 FL (6.5-10.1) H Neutrophils (%) (Auto) 79.1 % (45.0-75.0) H Lymphocytes (%) (Auto) 9.3 % (20.0-45.0) L Monocytes (%) (Auto) 8.6 % (1.0-10.0) Eosinophils (%) (Auto) 0.8 % (0.0-3.0) Basophils (%) (Auto) 2.2 % (0.0-2.0) H Sodium Level 148 MMOL/L (136-145) H Potassium Level 3.7 MMOL/L (3.5-5.1) Chloride Level 114 MMOL/L (98-107) H Carbon Dioxide Level 26 MMOL/L (21-32) Anion Gap 8 mmol/L (5-15) Blood Urea Nitrogen 52 mg/dL (7-18) H Creatinine 2.2 MG/DL (0.55-1.30) H Estimat Glomerular Filtration Rate 27.1 mL/min (>60) Glucose Level 121 MG/DL (74-106) H Uric Acid 11.6 MG/DL (2.6-7.2) H Calcium Level 9.0 MG/DL (8.5-10.1) Phosphorus Level 3.3 MG/DL (2.5-4.9) Magnesium Level 2.4 MG/DL (1.8-2.4) Total Bilirubin 1.4 MG/DL (0.2-1.0) H Direct Bilirubin 1.1 MG/DL (0.0-0.3) H Gamma Glutamyl Transpeptidase 152 U/L (5-85) H Aspartate Amino Transf (AST/SGOT) 45 U/L (15-37) H Alanine Aminotransferase (ALT/SGPT) 12 U/L (12-78) Alkaline Phosphatase 231 U/L (46-116) H C-Reactive Protein, Quantitative 6.2 mg/dL (0.00-0.90) H Pro-B-Type Natriuretic Peptide 2688 pg/mL (0-125) H Total Protein 6.3 G/DL (6.4-8.2) L Albumin 2.1 G/DL (3.4-5.0) L Globulin 4.2 g/dL Albumin/Globulin Ratio 0.5 (1.0-2.7) L Cortisol AM Sample Pending Height (Feet): 5 Height (Inches): 3.00 Weight (Pounds): 327 General Appearance: no apparent distress, alert, obese Cardiovascular: normal rate Respiratory/Chest: normal breath sounds, no respiratory distress Abdominal Exam: normal bowel sounds, non tender, soft, other - NGT Extremities: non-tender Otilio Cohen NP May 19, 2018 12:06
--- NOTE | 2018-05-19 12:20 | Nephrology Progress Note ---
Assessment/Plan Problem List: (1) ARF (acute renal failure) (2) Cellulitis of both lower extremities (3) Venous stasis ulcers of both lower extremities (4) DM (diabetes mellitus) (5) CKD (chronic kidney disease) (6) Morbid (severe) obesity due to excess calories (7) Acute hypoxemic respiratory failure Assessment Diabetic Nephropathy acute renal failure super imposed on CKD Encephalopathy, CO2 retainer, respiratory failure acute Obesity High Trop High Bili UTI Bilateral LE cellulitis Anemia Plan 24 h urine crcl and protein being collected midodrine DC IV fluids pulmonary support / Mechanical ventilation Anaya pressors as needed OG feeding Avoid nephrotoxics monitor renal parameters 2D echo Ej Fx 55% kidney WESLEY Per ID , Pulm... meds IV or OG tube Avoid mind altering meds per orders Subjective ROS Limited/Unobtainable: Yes Objective Objective Last 24 Hour Vital Signs Date Time Temp Pulse Resp B/P (MAP) Pulse Ox O2 Delivery O2 Flow Rate FiO2 05/19/18 11:17 87 19 50 05/19/18 11:00 75 25 138/80 (99) 99 05/19/18 10:12 99 05/19/18 10:00 73 23 137/66 (89) 99 05/19/18 09:48 115/90 05/19/18 09:26 92 24 50 05/19/18 09:00 75 22 130/58 (82) 98 05/19/18 08:06 79 25 50 05/19/18 08:02 82 22 50 05/19/18 08:00 50 05/19/18 08:00 80 05/19/18 08:00 99.4 79 23 111/73 (86) 97 05/19/18 07:00 67 18 114/48 (70) 97 05/19/18 06:00 85 18 101/78 (86) 99 05/19/18 05:30 84 18 122/72 (89) 99 05/19/18 05:13 77 18 50 05/19/18 05:00 83 18 115/71 (86) 99 05/19/18 04:30 87 19 110/80 (90) 05/19/18 04:21 18 Mechanical Ventilator 50 05/19/18 04:00 98.8 83 21 111/82 (92) 05/19/18 04:00 18 Mechanical Ventilator 50 05/19/18 04:00 78 05/19/18 04:00 Mechanical Ventilator 05/19/18 04:00 50 05/19/18 03:30 68 17 119/91 (100) 98 05/19/18 03:00 69 18 108/63 (78) 99 05/19/18 03:00 18 Mechanical Ventilator 50 05/19/18 02:56 64 18 50 05/19/18 02:30 84 18 108/67 (81) 99 05/19/18 02:00 18 Mechanical Ventilator 50 05/19/18 02:00 83 18 107/69 (82) 99 05/19/18 01:08 68 18 50 05/19/18 01:00 65 18 103/71 (82) 99 05/19/18 01:00 18 Mechanical Ventilator 50 05/19/18 00:00 81 05/19/18 00:00 50 05/19/18 00:00 18 Mechanical Ventilator 45 05/19/18 00:00 Mechanical Ventilator 05/19/18 00:00 98.7 81 18 122/71 (88) 99 05/18/18 23:00 84 18 114/71 (85) 98 05/18/18 23:00 18 Mechanical Ventilator 45 05/18/18 22:51 94 18 50 05/18/18 22:00 98 18 110/69 (83) 97 05/18/18 22:00 18 Mechanical Ventilator 50 05/18/18 21:00 87 21 136/72 (93) 97 05/18/18 21:00 21 Mechanical Ventilator 50 05/18/18 20:45 84 25 50 05/18/18 20:00 Mechanical Ventilator 05/18/18 20:00 98.8 91 19 121/75 (90) 99 05/18/18 20:00 91 05/18/18 20:00 40 05/18/18 19:13 73 16 40 05/18/18 19:00 90 18 121/75 (90) 100 05/18/18 18:30 18 Mechanical Ventilator 40 05/18/18 18:30 88 18 107/79 (88) 95 05/18/18 18:15 18 Mechanical Ventilator 40 05/18/18 18:00 73 18 107/68 (81) 100 05/18/18 18:00 18 Mechanical Ventilator 40 05/18/18 17:50 18 Mechanical Ventilator 40 05/18/18 17:50 77 18 40 05/18/18 17:45 18 Mechanical Ventilator 40 05/18/18 17:40 18 Mechanical Ventilator 40 05/18/18 17:30 73 18 107/68 (81) 95 05/18/18 17:20 18 Mechanical Ventilator 40 05/18/18 17:10 18 Mechanical Ventilator 40 05/18/18 17:00 18 Mechanical Ventilator 40 05/18/18 17:00 74 18 84/52 (63) 100 05/18/18 16:55 18 Mechanical Ventilator 40 05/18/18 16:50 18 Mechanical Ventilator 40 05/18/18 16:45 18 Mechanical Ventilator 40 05/18/18 16:40 18 Mechanical Ventilator 40 05/18/18 16:30 79 18 89/42 (58) 100 05/18/18 16:00 40 05/18/18 16:00 98.1 71 18 89/52 (64) 100 05/18/18 16:00 78 05/18/18 16:00 18 Mechanical Ventilator 40 05/18/18 16:00 Mechanical Ventilator 05/18/18 15:38 77 18 Mechanical Ventilator 40 05/18/18 15:37 77 18 40 05/18/18 15:30 74 18 88/42 (57) 100 05/18/18 15:00 76 17 82/51 (61) 100 05/18/18 15:00 18 Mechanical Ventilator 40 05/18/18 14:45 18 Mechanical Ventilator 40 05/18/18 14:30 84 17 130/117 (121) 96 05/18/18 14:30 18 Mechanical Ventilator 60 05/18/18 14:22 79 18 40 05/18/18 14:15 18 Mechanical Ventilator 60 05/18/18 14:00 18 Mechanical Ventilator 40 05/18/18 14:00 84 18 102/62 (75) 100 05/18/18 13:50 18 Mechanical Ventilator 60 05/18/18 13:40 18 Mechanical Ventilator 60 05/18/18 13:30 18 Mechanical Ventilator 60 05/18/18 13:30 84 18 85/51 (62) 100 05/18/18 13:00 18 Mechanical Ventilator 60 05/18/18 13:00 85 18 87/45 (59) 97 05/18/18 12:30 80 20 89/69 (76) 97 Intake and Output 05/18/18 05/19/18 19:00 07:00 Intake Total 1090.25 ml 925 ml Output Total 620 ml 350 ml Balance 470.25 ml 575 ml Free Water 160 ml IV Total 570.25 ml 250 ml Tube Feeding 360 ml 495 ml Other 180 ml Output Urine Total 320 ml 250 ml Stool Total 300 ml 100 ml Laboratory Tests 05/18/18 14:33: Arterial Blood pH 7.371, Arterial Blood Partial Pressure CO2 43.7, Arterial Blood Partial Pressure O2 109.2H, Arterial Blood HCO3 24.8, Arterial Blood Oxygen Saturation 98.0, Arterial Blood Base Excess -0.7, Aditya Test Positive 05/18/18 20:30: Arterial Blood pH 7.270L, Arterial Blood Partial Pressure CO2 56.6*H, Arterial Blood Partial Pressure O2 68.3L, Arterial Blood HCO3 25.9, Arterial Blood Oxygen Saturation 90.1L, Arterial Blood Base Excess -1.7, Aditya Test Positive 05/19/18 04:30: White Blood Count 10.5, Red Blood Count 4.75, Hemoglobin 11.7L, Hematocrit 39.5 , Mean Corpuscular Volume 83, Mean Corpuscular Hemoglobin 24.7L, Mean Corpuscular Hemoglobin Concent 29.7L, Red Cell Distribution Width 19.3H, Platelet Count 203, Mean Platelet Volume 11.5H, Neutrophils (%) (Auto) 79.1H, Lymphocytes (%) (Auto) 9.3L, Monocytes (%) (Auto) 8.6, Eosinophils (%) (Auto) 0.8, Basophils (%) (Auto) 2.2H, Sodium Level 148H, Potassium Level 3.7, Chloride Level 114H, Carbon Dioxide Level 26, Anion Gap 8, Blood Urea Nitrogen 52H, Creatinine 2.2H, Estimat Glomerular Filtration Rate 27.1, Glucose Level 121H, Uric Acid 11.6H, Calcium Level 9.0, Phosphorus Level 3.3, Magnesium Level 2.4, Total Bilirubin 1.4H, Direct Bilirubin 1.1H, Gamma Glutamyl Transpeptidase 152H, Aspartate Amino Transf (AST/SGOT) 45H, Alanine Aminotransferase (ALT/SGPT ) 12, Alkaline Phosphatase 231H, C-Reactive Protein, Quantitative 6.2H, Pro-B- Type Natriuretic Peptide 2688H, Total Protein 6.3L, Albumin 2.1L, Globulin 4.2, Albumin/Globulin Ratio 0.5L, Cortisol AM Sample [Pending] 05/19/18 10:30: Arterial Blood pH 7.292L, Arterial Blood Partial Pressure CO2 55.3*H, Arterial Blood Partial Pressure O2 73.4L, Arterial Blood HCO3 26.1H, Arterial Blood Oxygen Saturation 92.6L, Arterial Blood Base Excess 1.2, Aditya Test Positive Height (Feet): 5 Height (Inches): 3.00 Weight (Pounds): 327 EENT: other - on vent Cardiovascular: normal rate Respiratory/Chest: decreased breath sounds Abdomen: other - obese Objective no change Tr Strange MD May 19, 2018 12:20
[2018-05-19 13:12] LABS: CREATININE 2.2 MG/DL (0.55-1.30)
--- NOTE | 2018-05-19 14:17 | NUR ---
NURSE NOTES: Dr. Maria updated of patient condition at the bedside, she has been weaning since 0800 on CPAP with PS of 10, 50% FIO2 and peep 5 and reported ABG result, dr. Maria placed patient back to AC 18, TV: 550, FIO2: 50% with peep of 5 ending weaning, he ordered to have and abg done before weaning started on 05/20/18 at 0700. patient is able to track staff at the bedside, and node head when asked yes/no questions, patient placed back on fentanyl drip at 50mcg/hr at dose rate of 5ml/hr,
--- NOTE | 2018-05-19 14:42 | NUR ---
NURSE NOTES: Dr. Wilkerson updated at the bedside of patient wound cultures, ordered to have cefazolin stopped and place doxycycline 100mg q12hrs IVPB, will place orders.
--- NOTE | 2018-05-19 15:11 | Pulmonolgy Critical Care Note ---
Critical Care - Asmt/Plan Assessment/Plan: 67 y/o female w/ DM, CKD, morbid obesity admitted with b/l LE cellulitis and altered mental status. Problem List: 1. Altered mental status 2. Acute hypercapnic respiratory failure -intubated 05/15 3. Bilateral lower extremity cellulitis 4. RACHELLE on CKD 5. DM 6. Morbid obesity 7. Elevated ammonia level 8. 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 Respiratory: CXR, ABG, weaning trial Cardiac: continue to monitor HR/BP Renal: F/U I&O Infectious Disease: continue antibiotics Gastrointestinal: continue feedings/current rate Prophylaxis: Heparin, SCDs Disposition: keep in ICU Time Spent (Minutes): 40 Discussed with: nurses, consultants Critical Care - Objective Last 24 Hour Vital Signs Date Time Temp Pulse Resp B/P (MAP) Pulse Ox O2 Delivery O2 Flow Rate FiO2 05/19/18 14:32 81 18 50 05/19/18 14:00 81 20 128/82 (97) 99 05/19/18 13:00 83 21 124/85 (98) 97 05/19/18 12:00 99.2 83 14 129/73 (91) 98 05/19/18 12:00 85 05/19/18 12:00 Mechanical Ventilator 05/19/18 12:00 50 05/19/18 11:17 87 19 50 05/19/18 11:00 75 25 138/80 (99) 99 05/19/18 10:12 99 05/19/18 10:00 73 23 137/66 (89) 99 05/19/18 09:48 115/90 05/19/18 09:26 92 24 50 05/19/18 09:00 75 22 130/58 (82) 98 05/19/18 08:06 79 25 50 05/19/18 08:02 82 22 50 05/19/18 08:00 Mechanical Ventilator 05/19/18 08:00 50 05/19/18 08:00 80 05/19/18 08:00 99.4 79 23 111/73 (86) 97 05/19/18 07:00 67 18 114/48 (70) 97 05/19/18 06:00 85 18 101/78 (86) 99 05/19/18 05:30 84 18 122/72 (89) 99 05/19/18 05:13 77 18 50 05/19/18 05:00 83 18 115/71 (86) 99 05/19/18 04:30 87 19 110/80 (90) 05/19/18 04:21 18 Mechanical Ventilator 50 05/19/18 04:00 98.8 83 21 111/82 (92) 05/19/18 04:00 18 Mechanical Ventilator 50 05/19/18 04:00 78 05/19/18 04:00 Mechanical Ventilator 05/19/18 04:00 50 05/19/18 03:30 68 17 119/91 (100) 98 05/19/18 03:00 69 18 108/63 (78) 99 05/19/18 03:00 18 Mechanical Ventilator 50 05/19/18 02:56 64 18 50 05/19/18 02:30 84 18 108/67 (81) 99 05/19/18 02:00 18 Mechanical Ventilator 50 05/19/18 02:00 83 18 107/69 (82) 99 05/19/18 01:08 68 18 50 05/19/18 01:00 65 18 103/71 (82) 99 05/19/18 01:00 18 Mechanical Ventilator 50 05/19/18 00:00 81 05/19/18 00:00 50 05/19/18 00:00 18 Mechanical Ventilator 45 05/19/18 00:00 Mechanical Ventilator 05/19/18 00:00 98.7 81 18 122/71 (88) 99 05/18/18 23:00 84 18 114/71 (85) 98 05/18/18 23:00 18 Mechanical Ventilator 45 05/18/18 22:51 94 18 50 05/18/18 22:00 98 18 110/69 (83) 97 05/18/18 22:00 18 Mechanical Ventilator 50 05/18/18 21:00 87 21 136/72 (93) 97 05/18/18 21:00 21 Mechanical Ventilator 50 05/18/18 20:45 84 25 50 05/18/18 20:00 Mechanical Ventilator 1/22/19 20:00 98.8 91 19 121/75 (90) 99 05/18/18 20:00 91 05/18/18 20:00 40 05/18/18 19:13 73 16 40 05/18/18 19:00 90 18 121/75 (90) 100 05/18/18 18:30 18 Mechanical Ventilator 40 05/18/18 18:30 88 18 107/79 (88) 95 05/18/18 18:15 18 Mechanical Ventilator 40 05/18/18 18:00 73 18 107/68 (81) 100 05/18/18 18:00 18 Mechanical Ventilator 40 05/18/18 17:50 18 Mechanical Ventilator 40 05/18/18 17:50 77 18 40 05/18/18 17:45 18 Mechanical Ventilator 40 05/18/18 17:40 18 Mechanical Ventilator 40 05/18/18 17:30 73 18 107/68 (81) 95 05/18/18 17:20 18 Mechanical Ventilator 40 05/18/18 17:10 18 Mechanical Ventilator 40 05/18/18 17:00 18 Mechanical Ventilator 40 05/18/18 17:00 74 18 84/52 (63) 100 05/18/18 16:55 18 Mechanical Ventilator 40 05/18/18 16:50 18 Mechanical Ventilator 40 05/18/18 16:45 18 Mechanical Ventilator 40 05/18/18 16:40 18 Mechanical Ventilator 40 05/18/18 16:30 79 18 89/42 (58) 100 05/18/18 16:00 40 05/18/18 16:00 98.1 71 18 89/52 (64) 100 05/18/18 16:00 78 05/18/18 16:00 18 Mechanical Ventilator 40 05/18/18 16:00 Mechanical Ventilator 05/18/18 15:38 77 18 Mechanical Ventilator 40 05/18/18 15:37 77 18 40 05/18/18 15:30 74 18 88/42 (57) 100 Status: awake HEENT: atraumatic Lungs: other - coarse anteriorly Heart: HR/BP stable Abdomen: soft, non-tender Extremities: edema Accucheck: 105 Critical Care - Subjective ROS Limited/Unobtainable: Yes ICU Day: 6 Intubation Day: 5 Interval Events: Off pressors. PS trials but noted to have acidotic ABG. Trial of lasix today by renal. Condition: stable EKG Rhythm: Sinus Rhythm FI02: 50 Vent Support Breath Rate: 18 Vent Support Mode: AC Vent Tidal Volume: 550 Sputum Amount: Small PEEP: 5.0 PIP: 42 Tube Feeding Amount: 0 I&O: Intake and Output 05/18/18 05/19/18 19:00 07:00 Intake Total 1090.25 ml 925 ml Output Total 620 ml 350 ml Balance 470.25 ml 575 ml Free Water 160 ml IV Total 570.25 ml 250 ml Tube Feeding 360 ml 495 ml Other 180 ml Output Urine Total 320 ml 250 ml Stool Total 300 ml 100 ml CXR: Massive cardiomegaly with pulmonary vascular congestion. ET-Tube: 7.5 ET Position: 24 Hemal Ritchie MD May 19, 2018 15:11
--- NOTE | 2018-05-19 16:38 | Infectious Diseases Prog Note ---
Assessment/Plan Problems: (1) Bilateral lower leg cellulitis Assessment & Plan: wound culture grew klibsella oxytoca, and Sphingomonas paucimobilis will switch cefazolin to doxycycline and continue aztreonam empirically with local wounds care . patient has refused MRI and CT of the legs to rule out deep abscess or osteomyelitis. await on bone scan of both legs once clinically stable . 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 (2) Nonhealing ulcer of left lower extremity Assessment & Plan: wound culture grew klebsiella oxytoca and Sphingomonas paucimobilis, now on aztreonam and doxycycline , continue local wound care and dressings change as per wound care service as per plastic surgery recommendations (3) Painful legs and moving toes Assessment & Plan: suspect due to the above , will order venous doppler to rule out DVT (4) CKD (chronic kidney disease) Assessment & Plan: avoid nephrotoxics , renally dosed antibiotics as per pharmacy (5) DM (diabetes mellitus) Assessment & Plan: recommend tight glycemic control to keep blood glucose between 100-140 (6) Acute encephalopathy Assessment & Plan: suspect metabolic with high ammonia level, continue lactulose , consult neurology if no improvement with brain image (7) Acute hypoxemic respiratory failure Assessment & Plan: due to the above , intubated on mechanical ventilation, pulmonary is following Subjective ROS Limited/Unobtainable: Yes Allergies: Coded Allergies: ASPIRIN (Verified Allergy, Intermediate, Hives, 01/06/13) PENICILLINS (Verified Allergy, Intermediate, Hives, 01/06/13) Subjective she was still intubated on mechanical ventilation in ICU , more awake and responsive, requested water to drink, afebrile, NAD . has good UOP , on pressor Objective Vital Signs Last 24 Hour Vital Signs Date Time Temp Pulse Resp B/P (MAP) Pulse Ox O2 Delivery O2 Flow Rate FiO2 05/19/18 15:15 82 18 50 05/19/18 14:32 81 18 50 05/19/18 14:00 81 20 128/82 (97) 99 05/19/18 13:00 83 21 124/85 (98) 97 05/19/18 12:00 99.2 83 14 129/73 (91) 98 05/19/18 12:00 85 05/19/18 12:00 Mechanical Ventilator 05/19/18 12:00 50 1/23/19 11:17 87 19 50 05/19/18 11:00 75 25 138/80 (99) 99 05/19/18 10:12 99 05/19/18 10:00 73 23 137/66 (89) 99 05/19/18 09:48 115/90 05/19/18 09:26 92 24 50 05/19/18 09:00 75 22 130/58 (82) 98 05/19/18 08:06 79 25 50 05/19/18 08:02 82 22 50 05/19/18 08:00 Mechanical Ventilator 05/19/18 08:00 50 05/19/18 08:00 80 05/19/18 08:00 99.4 79 23 111/73 (86) 97 05/19/18 07:00 67 18 114/48 (70) 97 05/19/18 06:00 85 18 101/78 (86) 99 05/19/18 05:30 84 18 122/72 (89) 99 05/19/18 05:13 77 18 50 05/19/18 05:00 83 18 115/71 (86) 99 05/19/18 04:30 87 19 110/80 (90) 05/19/18 04:21 18 Mechanical Ventilator 50 05/19/18 04:00 98.8 83 21 111/82 (92) 05/19/18 04:00 18 Mechanical Ventilator 50 05/19/18 04:00 78 05/19/18 04:00 Mechanical Ventilator 05/19/18 04:00 50 05/19/18 03:30 68 17 119/91 (100) 98 05/19/18 03:00 69 18 108/63 (78) 99 05/19/18 03:00 18 Mechanical Ventilator 50 05/19/18 02:56 64 18 50 05/19/18 02:30 84 18 108/67 (81) 99 05/19/18 02:00 18 Mechanical Ventilator 50 05/19/18 02:00 83 18 107/69 (82) 99 05/19/18 01:08 68 18 50 05/19/18 01:00 65 18 103/71 (82) 99 05/19/18 01:00 18 Mechanical Ventilator 50 05/19/18 00:00 81 05/19/18 00:00 50 05/19/18 00:00 18 Mechanical Ventilator 45 05/19/18 00:00 Mechanical Ventilator 05/19/18 00:00 98.7 81 18 122/71 (88) 99 05/18/18 23:00 84 18 114/71 (85) 98 05/18/18 23:00 18 Mechanical Ventilator 45 05/18/18 22:51 94 18 50 05/18/18 22:00 98 18 110/69 (83) 97 05/18/18 22:00 18 Mechanical Ventilator 50 05/18/18 21:00 87 21 136/72 (93) 97 05/18/18 21:00 21 Mechanical Ventilator 50 05/18/18 20:45 84 25 50 05/18/18 20:00 Mechanical Ventilator 05/18/18 20:00 98.8 91 19 121/75 (90) 99 05/18/18 20:00 91 05/18/18 20:00 40 05/18/18 19:13 73 16 40 05/18/18 19:00 90 18 121/75 (90) 100 05/18/18 18:30 18 Mechanical Ventilator 40 05/18/18 18:30 88 18 107/79 (88) 95 05/18/18 18:15 18 Mechanical Ventilator 40 05/18/18 18:00 73 18 107/68 (81) 100 05/18/18 18:00 18 Mechanical Ventilator 40 05/18/18 17:50 18 Mechanical Ventilator 40 05/18/18 17:50 77 18 40 05/18/18 17:45 18 Mechanical Ventilator 40 05/18/18 17:40 18 Mechanical Ventilator 40 05/18/18 17:30 73 18 107/68 (81) 95 05/18/18 17:20 18 Mechanical Ventilator 40 05/18/18 17:10 18 Mechanical Ventilator 40 05/18/18 17:00 18 Mechanical Ventilator 40 05/18/18 17:00 74 18 84/52 (63) 100 05/18/18 16:55 18 Mechanical Ventilator 40 05/18/18 16:50 18 Mechanical Ventilator 40 05/18/18 16:45 18 Mechanical Ventilator 40 05/18/18 16:40 18 Mechanical Ventilator 40 05/18/18 16:30 79 18 89/42 (58) 100 Height (Feet): 5 Height (Inches): 3.00 Weight (Pounds): 327 General Appearance: WD/WN, no acute distress HEENT: normocephalic, atraumatic, anicteric, mucous membranes moist, PERRL, supple, no JVD Respiratory/Chest: chest wall non-tender, no respiratory distress, no accessory muscle use, decreased breath sounds, crackles/rales Cardiovascular: normal peripheral pulses, normal rate, regular rhythm, no gallop/murmur, no JVD Abdomen: normal bowel sounds, soft, non tender, no organomegaly, non distended , no mass, no scars Extremities: no cyanosis, no clubbing Skin: no rash, no lesions, ulcers Neurologic/Psychiatric: alert, responsive Lymphatic: no neck adenopathy, no groin adenopathy Musculoskeletal: normal muscle bulk, no effusion Laboratory Tests Test 05/18/18 20:30 05/19/18 04:30 05/19/18 10:30 Arterial Blood pH 7.270 (7.350-7.450) 7.292 (7.350-7.450) Arterial Blood Partial Pressure CO2 56.6 mmHg (35.0-45.0) *H 55.3 mmHg (35.0-45.0) *H Arterial Blood Partial Pressure O2 68.3 mmHg (75.0-100.0) L 73.4 mmHg (75.0-100.0) L Arterial Blood HCO3 25.9 mmol/L (22.0-26.0) 26.1 mmol/L (22.0-26.0) H Arterial Blood Oxygen Saturation 90.1 % (95-100) L 92.6 % (95-100) L Arterial Blood Base Excess -1.7 (-2-2) 1.2 (-2-2) Aditya Test Positive Positive White Blood Count 10.5 K/UL (4.8-10.8) Red Blood Count 4.75 M/UL (4.20-5.40) Hemoglobin 11.7 G/DL (12.0-16.0) L Hematocrit 39.5 % (37.0-47.0) Mean Corpuscular Volume 83 FL (80-99) Mean Corpuscular Hemoglobin 24.7 PG (27.0-31.0) L Mean Corpuscular Hemoglobin Concent 29.7 G/DL (32.0-36.0) L Red Cell Distribution Width 19.3 % (11.6-14.8) H Platelet Count 203 K/UL (150-450) Mean Platelet Volume 11.5 FL (6.5-10.1) H Neutrophils (%) (Auto) 79.1 % (45.0-75.0) H Lymphocytes (%) (Auto) 9.3 % (20.0-45.0) L Monocytes (%) (Auto) 8.6 % (1.0-10.0) Eosinophils (%) (Auto) 0.8 % (0.0-3.0) Basophils (%) (Auto) 2.2 % (0.0-2.0) H Sodium Level 148 MMOL/L (136-145) H Potassium Level 3.7 MMOL/L (3.5-5.1) Chloride Level 114 MMOL/L (98-107) H Carbon Dioxide Level 26 MMOL/L (21-32) Anion Gap 8 mmol/L (5-15) Blood Urea Nitrogen 52 mg/dL (7-18) H Creatinine 2.2 MG/DL (0.55-1.30) H Estimat Glomerular Filtration Rate 27.1 mL/min (>60) Glucose Level 121 MG/DL (74-106) H Uric Acid 11.6 MG/DL (2.6-7.2) H Calcium Level 9.0 MG/DL (8.5-10.1) Phosphorus Level 3.3 MG/DL (2.5-4.9) Magnesium Level 2.4 MG/DL (1.8-2.4) Total Bilirubin 1.4 MG/DL (0.2-1.0) H Direct Bilirubin 1.1 MG/DL (0.0-0.3) H Gamma Glutamyl Transpeptidase 152 U/L (5-85) H Aspartate Amino Transf (AST/SGOT) 45 U/L (15-37) H Alanine Aminotransferase (ALT/SGPT) 12 U/L (12-78) Alkaline Phosphatase 231 U/L (46-116) H C-Reactive Protein, Quantitative 6.2 mg/dL (0.00-0.90) H Pro-B-Type Natriuretic Peptide 2688 pg/mL (0-125) H Total Protein 6.3 G/DL (6.4-8.2) L Albumin 2.1 G/DL (3.4-5.0) L Globulin 4.2 g/dL Albumin/Globulin Ratio 0.5 (1.0-2.7) L Cortisol AM Sample Pending Current Medications Medications (Trade) Dose Ordered Sig/Toya Route PRN Reason Start Time Stop Time Status Last Admin Dose Admin Allopurinol (Allopurinol) 300 mg DAILY NG 05/19/18 13:00 06/18/18 12:59 05/19/18 15:26 Ascorbic Acid (Vitamin C) 500 mg TWICE A DAY NG 05/18/18 09:00 06/15/18 17:59 05/19/18 09:47 Atorvastatin Calcium (Lipitor) 20 mg BEDTIME ORAL 05/17/18 21:00 06/13/18 20:59 05/18/18 20:43 Aztreonam 2 gm/ Dextrose 110 ml @ 220 mls/hr Q8HR@0000,0800,1600 IVPB 05/17/18 16:00 05/24/18 15:59 05/19/18 15:26 Chlorhexidine Gluconate (Romy-Hex 2%) 1 applic DAILY@2000 TOPIC 05/14/18 20:00 06/13/18 19:59 05/18/18 20:42 Clopidogrel Bisulfate (Plavix) 75 mg DAILY NG 05/18/18 09:00 06/14/18 08:59 05/19/18 09:47 Dextrose (Dextrose 50%) 25 ml Q30M PRN IV Hypoglycemia 05/13/18 21:00 06/11/18 16:59 Dextrose (Dextrose 50%) 50 ml Q30M PRN IV Hypoglycemia 05/13/18 21:00 06/11/18 16:59 Dopamine HCl/ Dextrose 250 ml @ 0 mls/hr Q24H IV 05/15/18 19:00 06/14/18 18:59 05/16/18 18:05 Doxycycline Hyclate 100 mg/ Dextrose 110 ml @ 110 mls/hr Q12HR IV 05/19/18 21:00 05/26/18 20:59 Fentanyl Citrate 1000 mcg/Sodium Chloride 100 ml @ 0 mls/hr Q24H IV 05/15/18 22:00 05/22/18 21:59 05/19/18 04:21 Insulin Aspart (NovoLOG) Q6HR SUBQ 05/18/18 13:00 06/11/18 12:59 05/18/18 23:43 Lactulose (Cephulac) 30 gm Q8HR NG 05/14/18 14:00 06/12/18 17:59 05/19/18 15:31 Lorazepam (Ativan 2mg/ml 1ml) 2 mg Q4H PRN IV For Anxiety 05/14/18 12:00 05/21/18 11:59 05/14/18 16:38 Midodrine (Pro-Amatine) 2.5 mg THREE TIMES A DAY NG 05/18/18 13:00 06/17/18 12:59 05/19/18 12:43 Multivitamins (Multivitamins) 1 tab DAILY ORAL 05/18/18 09:00 06/16/18 08:59 05/19/18 09:46 Nitroglycerin (Ntg) 1 patch Q24H TDERMAL 05/15/18 09:00 06/14/18 08:59 05/19/18 09:48 Pantoprazole (Protonix) 40 mg EVERY 12 HOURS IVP 05/14/18 21:00 06/13/18 20:59 05/19/18 09:45 Povidone Iodine (Betadine Gretchen) 1 applic BID TOPIC 05/16/18 09:00 06/15/18 08:59 05/19/18 09:49 Rifaximin (Xifaxan) 550 mg EVERY 12 HOURS NG 05/18/18 09:00 05/20/18 20:59 05/19/18 09:47 Sodium Chloride 500 ml @ 999 mls/hr Q31M PRN IV For hypotension 05/14/18 01:30 06/13/18 01:29 05/14/18 06:10 Juice Wilkerson M.D. May 19, 2018 16:38
[2018-05-19] MEDS: DOPamine 400mg/250ml 250 ML IV SCH (19:00)
--- NOTE | 2018-05-19 19:00 | NUR ---
NURSE NOTES: Patient is sedated and on Vent with settings of AC 18, 550tv, 50% fi2 and peep of 5. HR is 74SR, SpO2 100%, 97/68. Patient on Fentanyl gtt at 50mcg/5ml/hr. Patient noted to be on Glucerna 1.5 at 45ml/hr via OGT, rectal tube noted and draining orange liquid in color. Bilateral lower wound legs noted, Patients HOHat 35 degrees, FLORENCIO picc line noted. No acute distress at this time, will continue to monitor.
--- NOTE | 2018-05-19 19:19 | NUR ---
HAND-OFF: Report given to LUCIO Orona.
[2018-05-19] MEDS: Dyna-Hex 2% Top Sol 2oz TOPIC SCH (20:00)
--- NOTE | 2018-05-19 20:00 | NUR ---
NURSE NOTES: Patient repositioned with staff team and adjusted pillows. Provided oral care and changed rectal tube bag.
[2018-05-19] MEDS: Doxycycline Hyclate 100 MG in D5W 110 ML IV SCH (21:29)
[2018-05-19] MEDS: Atorvastatin 20mg tab ORAL SCH (21:29)
--- NOTE | 2018-05-19 22:00 | NUR ---
NURSE NOTES: Scheduled medication provided. Candido provided. HOB at 35 degree. Patients RASS score at -2. No acute distress at this time.
--- NOTE | 2018-05-19 23:40 | Cardiology Progress Note ---
Assessment/Plan Assessment/Plan 1. Dyspnea most likely secondary to acute hypoxic hypercarbic respiratory failure. 2D echocardiography shows normal LV systolic function with a normal left atrial pressure, however e/o right heart failure. 2. Right heart failure, pre-load sensitive, avoid aggressive diuretic use, evidence of RA and RV dilatation and severe RV systolic dysfunction, associated pulmonary HTN, ? type. 3. Paroxysmal atrial fibrillation, currently sinus rhythm, off amiodarone and Eliquis. 4. Hypotension likely due to RV failure, resolved, on midodrine, grim prognosis. 5. Slight elevation of troponin I level in this patient could be due to RV strain/failure or due to type 2 non-ST elevation myocardial infarction. Subjective Subjective Sinus rhythm at rate of 80. Intubated on FiO2 of 45%. Off pressors. Objective Last 24 Hour Vital Signs Date Time Temp Pulse Resp B/P (MAP) Pulse Ox O2 Delivery O2 Flow Rate FiO2 05/19/18 23:12 64 18 45 05/19/18 22:00 80 18 92/75 (81) 99 05/19/18 22:00 18 Mechanical Ventilator 50 05/19/18 21:30 78 18 100/64 (76) 99 05/19/18 21:00 78 18 100/64 (76) 100 05/19/18 21:00 18 Mechanical Ventilator 50 05/19/18 21:00 84 18 50 05/19/18 20:30 75 18 100/66 (77) 100 05/19/18 20:00 99.6 74 18 106/70 (82) 100 05/19/18 20:00 18 Mechanical Ventilator 50 05/19/18 20:00 50 05/19/18 20:00 Mechanical Ventilator 05/19/18 20:00 76 05/19/18 19:00 78 18 98/75 (83) 100 05/19/18 19:00 18 Mechanical Ventilator 50 05/19/18 18:58 86 18 50 05/19/18 18:30 75 18 98/73 (81) 98 05/19/18 18:00 75 16 105/73 (84) 98 05/19/18 18:00 18 Mechanical Ventilator 50 05/19/18 17:30 77 18 104/32 (56) 98 05/19/18 17:00 80 18 50 05/19/18 17:00 18 Mechanical Ventilator 50 05/19/18 17:00 80 18 108/70 (83) 98 05/19/18 16:30 81 18 107/70 (82) 97 05/19/18 16:00 81 05/19/18 16:00 76 18 106/84 (91) 100 05/19/18 16:00 50 05/19/18 16:00 18 Mechanical Ventilator 50 05/19/18 16:00 Mechanical Ventilator 05/19/18 15:30 99.1 75 18 96/70 (79) 99 05/19/18 15:15 82 18 50 05/19/18 15:00 18 Mechanical Ventilator 50 05/19/18 15:00 81 18 94/70 (78) 99 05/19/18 14:32 81 18 50 05/19/18 14:30 94 18 106/77 (87) 99 05/19/18 14:00 20 Mechanical Ventilator 50 05/19/18 14:00 81 20 128/82 (97) 99 05/19/18 13:00 83 21 124/85 (98) 97 05/19/18 12:00 99.2 83 14 129/73 (91) 98 05/19/18 12:00 85 05/19/18 12:00 Mechanical Ventilator 05/19/18 12:00 50 05/19/18 11:17 87 19 50 05/19/18 11:00 75 25 138/80 (99) 99 05/19/18 10:12 99 05/19/18 10:00 73 23 137/66 (89) 99 05/19/18 09:48 115/90 05/19/18 09:26 92 24 50 05/19/18 09:00 75 22 130/58 (82) 98 05/19/18 08:06 79 25 50 05/19/18 08:02 82 22 50 05/19/18 08:00 Mechanical Ventilator 05/19/18 08:00 50 05/19/18 08:00 80 05/19/18 08:00 99.4 79 23 111/73 (86) 97 05/19/18 07:00 17 Mechanical Ventilator 50 05/19/18 07:00 67 18 114/48 (70) 97 05/19/18 06:00 85 18 101/78 (86) 99 05/19/18 05:30 84 18 122/72 (89) 99 1/23/19 05:13 77 18 50 05/19/18 05:00 83 18 115/71 (86) 99 05/19/18 04:30 87 19 110/80 (90) 05/19/18 04:21 18 Mechanical Ventilator 50 05/19/18 04:00 98.8 83 21 111/82 (92) 05/19/18 04:00 18 Mechanical Ventilator 50 05/19/18 04:00 78 05/19/18 04:00 Mechanical Ventilator 05/19/18 04:00 50 05/19/18 03:30 68 17 119/91 (100) 98 05/19/18 03:00 69 18 108/63 (78) 99 05/19/18 03:00 18 Mechanical Ventilator 50 05/19/18 02:56 64 18 50 05/19/18 02:30 84 18 108/67 (81) 99 05/19/18 02:00 18 Mechanical Ventilator 50 05/19/18 02:00 83 18 107/69 (82) 99 05/19/18 01:08 68 18 50 05/19/18 01:00 65 18 103/71 (82) 99 05/19/18 01:00 18 Mechanical Ventilator 50 05/19/18 00:00 81 05/19/18 00:00 50 05/19/18 00:00 18 Mechanical Ventilator 45 05/19/18 00:00 Mechanical Ventilator 05/19/18 00:00 98.7 81 18 122/71 (88) 99 Intake and Output 05/18/18 05/19/18 19:00 07:00 Intake Total 1090.25 ml 925 ml Output Total 620 ml 350 ml Balance 470.25 ml 575 ml Free Water 160 ml IV Total 570.25 ml 250 ml Tube Feeding 360 ml 495 ml Other 180 ml Output Urine Total 320 ml 250 ml Stool Total 300 ml 100 ml 2D Echo: LVEF 55%, D-shaped septum due to RV pressure overload, Massive RA/RV size. Laboratory Tests Test 05/19/18 04:30 05/19/18 10:30 White Blood Count 10.5 K/UL (4.8-10.8) Red Blood Count 4.75 M/UL (4.20-5.40) Hemoglobin 11.7 G/DL (12.0-16.0) L Hematocrit 39.5 % (37.0-47.0) Mean Corpuscular Volume 83 FL (80-99) Mean Corpuscular Hemoglobin 24.7 PG (27.0-31.0) L Mean Corpuscular Hemoglobin Concent 29.7 G/DL (32.0-36.0) L Red Cell Distribution Width 19.3 % (11.6-14.8) H Platelet Count 203 K/UL (150-450) Mean Platelet Volume 11.5 FL (6.5-10.1) H Neutrophils (%) (Auto) 79.1 % (45.0-75.0) H Lymphocytes (%) (Auto) 9.3 % (20.0-45.0) L Monocytes (%) (Auto) 8.6 % (1.0-10.0) Eosinophils (%) (Auto) 0.8 % (0.0-3.0) Basophils (%) (Auto) 2.2 % (0.0-2.0) H Sodium Level 148 MMOL/L (136-145) H Potassium Level 3.7 MMOL/L (3.5-5.1) Chloride Level 114 MMOL/L (98-107) H Carbon Dioxide Level 26 MMOL/L (21-32) Anion Gap 8 mmol/L (5-15) Blood Urea Nitrogen 52 mg/dL (7-18) H Creatinine 2.2 MG/DL (0.55-1.30) H Estimat Glomerular Filtration Rate 27.1 mL/min (>60) Glucose Level 121 MG/DL (74-106) H Uric Acid 11.6 MG/DL (2.6-7.2) H Calcium Level 9.0 MG/DL (8.5-10.1) Phosphorus Level 3.3 MG/DL (2.5-4.9) Magnesium Level 2.4 MG/DL (1.8-2.4) Total Bilirubin 1.4 MG/DL (0.2-1.0) H Direct Bilirubin 1.1 MG/DL (0.0-0.3) H Gamma Glutamyl Transpeptidase 152 U/L (5-85) H Aspartate Amino Transf (AST/SGOT) 45 U/L (15-37) H Alanine Aminotransferase (ALT/SGPT) 12 U/L (12-78) Alkaline Phosphatase 231 U/L (46-116) H C-Reactive Protein, Quantitative 6.2 mg/dL (0.00-0.90) H Pro-B-Type Natriuretic Peptide 2688 pg/mL (0-125) H Total Protein 6.3 G/DL (6.4-8.2) L Albumin 2.1 G/DL (3.4-5.0) L Globulin 4.2 g/dL Albumin/Globulin Ratio 0.5 (1.0-2.7) L Cortisol AM Sample Pending Arterial Blood pH 7.292 (7.350-7.450) Arterial Blood Partial Pressure CO2 55.3 mmHg (35.0-45.0) *H Arterial Blood Partial Pressure O2 73.4 mmHg (75.0-100.0) L Arterial Blood HCO3 26.1 mmol/L (22.0-26.0) H Arterial Blood Oxygen Saturation 92.6 % (95-100) L Arterial Blood Base Excess 1.2 (-2-2) Aditya Test Positive Objective HEENT: Atraumatic and normocephalic. Anicteric. Pupils are equal, round, and reactive to light and accommodation. Extraocular muscles intact. NECK: Cannot be assessed due to positive inspiratory pressure. No carotid bruit. Carotid upstroke is 2+ bilaterally. CVS: Normal S1 and S2. Regular rate and rhythm. RV heave, No murmurs, gallops , or rubs. LUNGS: Diminished breath sounds in both lungs with rhonchi bilaterally. ABDOMEN: Soft, nontender, and nondistended. No hepatosplenomegaly. Positive bowel sounds. EXTREMITIES: No evidence of edema, clubbing, or cyanosis. There is venous stasis of lower extremities with associated ulceration. Justice Erickson MD May 19, 2018 23:40
[2018-05-20] VITALS (31 sets, daily range): BP systolic 92–128; BP diastolic 56–105
--- NOTE | 2018-05-20 | NUR ---
NURSE NOTES: Patient repositioned with staff member assist. No acute distress at this time. Patients vitals remain stable, no fevers.
--- NOTE | 2018-05-20 02:00 | NUR ---
NURSE NOTES: Patient suctioned and provided oral care. NAD, rectal tube draining and intact.
--- NOTE | 2018-05-20 04:00 | NUR ---
NURSE NOTES: Patient cleaned and repositioned with staff members assist. NAD at this time. Patient remains stable
[2018-05-20] MEDS: fentaNYL Citrate 1000 MCG in NS 100ml IV SCH (05:00)
--- NOTE | 2018-05-20 05:00 | NUR ---
NURSE NOTES: New Fentanyl bag scanned and hung. Will keep it on hold for am weaning trials.
[2018-05-20] MEDS: Lactulose 10gm/15ml UDC NG SCH ×3 (05:02→21:31)
[2018-05-20] MEDS: NovoLOG Insulin Flexpen SUBQ SCH ×4 (05:04→17:51)
[2018-05-20 05:32] LABS: BASOPHILS % (AUTO) 1.4 % (0.0-2.0); EOSINOPHILS % (AUTO) 0.5 % (0.0-3.0); HEMATOCRIT 42.1 % (37.0-47.0); HEMOGLOBIN 12.2 G/DL (12.0-16.0); LYMPHOCYTES % (AUTO) 11.9 % (20.0-45.0); MEAN CORPUSCULAR VOLUME 84 FL (80-99); MONOCYTES % (AUTO) 6.2 % (1.0-10.0); NEUTROPHILS % (AUTO) 79.9 % (45.0-75.0); PLATELET COUNT 193 K/UL (150-450); RED BLOOD COUNT 5.02 M/UL (4.20-5.40); RED CELL DISTRIBUTION WIDTH 18.9 % (11.6-14.8); WHITE BLOOD COUNT 13.9 K/UL (4.8-10.8)
[2018-05-20 05:45] LABS: PHOSPHORUS 3.2 MG/DL (2.5-4.9)
[2018-05-20 05:53] LABS: ALANINE AMINOTRANSFERASE 8 U/L (12-78); ALBUMIN 2.3 G/DL (3.4-5.0); ALBUMIN/GLOBULIN RATIO 0.5 (1.0-2.7); ALKALINE PHOSPHATASE 271 U/L (46-116); ANION GAP 9 mmol/L (5-15); ASPARTATE AMINO TRANSFERASE 51 U/L (15-37); BILIRUBIN,TOTAL 1.4 MG/DL (0.2-1.0); BLOOD UREA NITROGEN 62 mg/dL (7-18); CARBON DIOXIDE 27 MMOL/L (21-32); CHLORIDE 115 MMOL/L (98-107); CREATININE 2.2 MG/DL (0.55-1.30); POTASSIUM 4.1 MMOL/L (3.5-5.1); SODIUM 151 MMOL/L (136-145)
[2018-05-20 05:58] LABS: BILIRUBIN,DIRECT 1.2 MG/DL (0.0-0.3)
--- NOTE | 2018-05-20 08:00 | NUR ---
NURSE NOTES: Received patient a&o x2. Patient follows simple commands, nods as understanding. 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 In and out of A-Fib md aware. Patient is intubated 7.5/24 cm lipline AC 18 VT 550 FiO2 45% and peep of 5. Per MD order at 8:00 am patient put on CPAP PS of 12. ABG's obtained at 7 per MD order. Patient tolerating well. RR 20, Saturation >96%. Patient receiving Glucerna 1.5 at 45 cc/hr via OGT. Large, round, non-tender abdomen. Hyperactive sound present on all 4 quadrants. Patient has rectal tube and Anaya, intact draining. Bilateral lower leg ulcer see WCP. Patient has L upper arm PICC line patient flushing. No new orders at this time. HOB elevated 40 degrees, bed on Will continue plan of care.
[2018-05-20] MEDS: AZTREONAM IVPB SCH ×6 (08:35→16:05)
[2018-05-20] MEDS: Doxycycline Hyclate 100 MG in D5W 110 ML IV SCH ×2 (08:35→21:31)
[2018-05-20] MEDS: [UNRECOGNIZED DRUG - OTHER] IVPB SCH ×6 (08:35→16:05)
[2018-05-20] MEDS: Betadine 4oz Bottle TOPIC SCH ×2 (08:36→18:02)
[2018-05-20] MEDS: Ascorbic Acid 500mg tab NG SCH ×2 (08:36→18:02)
[2018-05-20] MEDS: Pantoprazole Inj IVP SCH ×2 (08:36→20:51)
[2018-05-20] MEDS: Nitroglycerin Patch 0.4mg TDERMAL SCH (08:37)
--- NOTE | 2018-05-20 09:37 | NUR ---
RADIOLOGY DEPT CHEST X-RAY DONE.-P.DYE
--- NOTE | 2018-05-20 10:00 | NUR ---
NURSE NOTES: Patient turned and repositioned. Alert and oriented x3. No new orders. Tolerating weaning well. Will continue plan of care.
--- NOTE | 2018-05-20 11:21 | NUR ---
NURSE NOTES: Observed patient due to vent alarm sounding. Patient is currently on CPAP. Patient observed to be very anxious, instructed patient to take deep breaths. Performed oral and ET suctioning and also oral care was done. Will endorse to the primary RN
--- NOTE | 2018-05-20 11:46 | Diagnostic Imaging Report ---
Indication: Dyspnea Technique: One view of the chest Comparison: 05/19/2018 Findings: Stable satisfactory position of endotracheal tube. Heart remains enlarged. Lungs and pleural spaces are grossly clear. Findings are unchanged Impression: Unchanged, over one day, findings as above.
--- NOTE | 2018-05-20 12:00 | NUR ---
NURSE NOTES: [address] Ritchie regarding patient's condition. Dr. 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 Patient remains stable. Tolerating well. Will continue plan of care
--- NOTE | 2018-05-20 12:48 | GI Progress Note ---
Assessment/Plan Problems: (1) DM (diabetes mellitus) ICD Codes: E11.9 - DM (diabetes mellitus) SNOMED: 62696315 (2) Intractable abdominal pain ICD Codes: R10.9 - Unspecified abdominal pain SNOMED: 44619893 (3) Elevated transaminase level ICD Codes: R74.0 - Nonspecific elevation of levels of transaminase and lactic acid dehydrogenase [LDH] SNOMED: 668966641 (4) Abdominal distension ICD Codes: R14.0 - Abdominal distension (gaseous) SNOMED: 58646033 (5) Liver disease ICD Codes: K76.9 - Liver disease, unspecified SNOMED: 606762089 (6) Acute encephalopathy ICD Codes: G93.40 - Encephalopathy, unspecified SNOMED: 27620587, 214472367 (7) Hepatic encephalopathy ICD Codes: K72.90 - Hepatic failure, unspecified without coma SNOMED: 32983112 Status: not improved, unchanged Status Narrative Discussed with Dr. Paul Assessment/Plan OB stool negative x2 hepatitis panel negative abdominal US reviewed >> - Ascites - Borderline hepatomegaly - Thick-walled gallbladder, likely in part artifact of nondistention, and in part due to hemodynamic factors causing the ascites. No definite gallstones. Acute cholecystitis not completely excludable, due to the wall thickening, and hepatobiliary scan should be considered if there is high clinical suspicion for such. - Negative for dilated ducts - To and fro flow within the main portal vein, could indicate portal hypertension Will consider HIDA and paracentesis when respiratory status stabilizes TF trial, tolerating cont lactulose Xifaxan Wean off of sedatives and narcotics monitor H&H, prn transfusions rectal tube bowel regime ppi fu labs will consider endoscopy pending work up, but will require cardiac clearance given elevated troponin levels. The patient was seen and examined at bedside and all new and available data was reviewed in the patients chart. I agree with the above findings, impression and plan. (Patient seen earlier today. Signature stamp does not reflect patient encounter time.). - Robert Paul MD Subjective Subjective limited Objective Last 24 Hour Vital Signs Date Time Temp Pulse Resp B/P (MAP) Pulse Ox O2 Delivery O2 Flow Rate FiO2 05/20/18 12:00 Mechanical Ventilator 05/20/18 12:00 93 05/20/18 12:00 87 21 120/80 (93) 100 05/20/18 12:00 45 05/20/18 11:26 88 21 45 05/20/18 11:00 90 20 117/79 (92) 100 05/20/18 10:00 99.0 84 22 112/66 (81) 97 05/20/18 09:22 82 23 45 05/20/18 09:00 85 20 110/68 (82) 98 05/20/18 08:37 110/76 05/20/18 08:00 75 18 98/65 (76) 98 05/20/18 08:00 86 05/20/18 08:00 98 05/20/18 08:00 Mechanical Ventilator 05/20/18 08:00 45 05/20/18 08:00 45 05/20/18 07:48 88 18 45 05/20/18 07:00 77 18 95/63 (74) 98 05/20/18 06:00 99.7 83 18 94/64 (74) 97 05/20/18 05:30 88 18 104/64 (77) 98 05/20/18 05:00 18 Mechanical Ventilator 45 05/20/18 05:00 85 18 104/59 (74) 97 05/20/18 04:50 77 18 45 05/20/18 04:30 92 22 100/69 (79) 100 05/20/18 04:30 12 Mechanical Ventilator 45 05/20/18 04:00 88 05/20/18 04:00 18 Mechanical Ventilator 45 05/20/18 04:00 Mechanical Ventilator 05/20/18 04:00 45 05/20/18 04:00 100.9 75 19 102/70 (81) 98 05/20/18 03:30 73 17 105/70 (82) 100 05/20/18 03:27 69 18 45 05/20/18 03:00 18 Mechanical Ventilator 45 05/20/18 03:00 72 18 94/70 (78) 98 05/20/18 02:00 77 17 98/68 (78) 98 05/20/18 02:00 Mechanical Ventilator 50 05/20/18 01:30 72 18 92/70 (77) 98 05/20/18 01:00 74 18 45 05/20/18 01:00 18 Mechanical Ventilator 50 05/20/18 01:00 77 18 97/65 (76) 99 05/20/18 00:30 68 18 93/73 (80) 98 05/20/18 00:00 67 05/20/18 00:00 18 Mechanical Ventilator 50 05/20/18 00:00 Mechanical Ventilator 05/20/18 00:00 50 05/20/18 00:00 99.1 65 18 101/56 (71) 99 05/19/18 23:35 65 17 89/61 (70) 99 05/19/18 23:30 64 18 87/57 (67) 98 05/19/18 23:12 64 18 45 05/19/18 23:00 64 18 91/41 (58) 99 05/19/18 22:30 73 18 94/57 (69) 99 05/19/18 22:00 80 18 92/75 (81) 99 05/19/18 22:00 18 Mechanical Ventilator 50 05/19/18 21:30 78 18 100/64 (76) 99 05/19/18 21:00 78 18 100/64 (76) 100 05/19/18 21:00 18 Mechanical Ventilator 50 05/19/18 21:00 84 18 50 05/19/18 20:30 75 18 100/66 (77) 100 05/19/18 20:00 99.6 74 18 106/70 (82) 100 05/19/18 20:00 18 Mechanical Ventilator 50 05/19/18 20:00 50 05/19/18 20:00 Mechanical Ventilator 05/19/18 20:00 76 05/19/18 19:00 78 18 98/75 (83) 100 05/19/18 19:00 18 Mechanical Ventilator 50 05/19/18 18:58 86 18 50 05/19/18 18:30 75 18 98/73 (81) 98 05/19/18 18:00 75 16 105/73 (84) 98 05/19/18 18:00 18 Mechanical Ventilator 50 05/19/18 17:30 77 18 104/32 (56) 98 05/19/18 17:00 80 18 50 05/19/18 17:00 18 Mechanical Ventilator 50 05/19/18 17:00 80 18 108/70 (83) 98 05/19/18 16:30 81 18 107/70 (82) 97 05/19/18 16:00 81 05/19/18 16:00 76 18 106/84 (91) 100 05/19/18 16:00 50 05/19/18 16:00 18 Mechanical Ventilator 50 05/19/18 16:00 Mechanical Ventilator 05/19/18 15:30 99.1 75 18 96/70 (79) 99 05/19/18 15:15 82 18 50 05/19/18 15:00 18 Mechanical Ventilator 50 05/19/18 15:00 81 18 94/70 (78) 99 05/19/18 14:32 81 18 50 05/19/18 14:30 94 18 106/77 (87) 99 05/19/18 14:00 20 Mechanical Ventilator 50 05/19/18 14:00 81 20 128/82 (97) 99 05/19/18 13:00 83 21 124/85 (98) 97 Intake and Output 05/19/18 05/20/18 19:00 07:00 Intake Total 620 ml 1085 ml Output Total 1120 ml 1765 ml Balance -500 ml -680 ml Free Water 130 ml 250 ml IV Total 245 ml 295 ml Tube Feeding 225 ml 540 ml Other 20 ml Output Urine Total 420 ml 265 ml Stool Total 700 ml 1500 ml Laboratory Tests Test 05/20/18 04:30 05/20/18 08:02 05/20/18 12:27 White Blood Count 13.9 K/UL (4.8-10.8) H Red Blood Count 5.02 M/UL (4.20-5.40) Hemoglobin 12.2 G/DL (12.0-16.0) Hematocrit 42.1 % (37.0-47.0) Mean Corpuscular Volume 84 FL (80-99) Mean Corpuscular Hemoglobin 24.4 PG (27.0-31.0) L Mean Corpuscular Hemoglobin Concent 29.0 G/DL (32.0-36.0) L Red Cell Distribution Width 18.9 % (11.6-14.8) H Platelet Count 193 K/UL (150-450) Mean Platelet Volume 9.3 FL (6.5-10.1) Neutrophils (%) (Auto) 79.9 % (45.0-75.0) H Lymphocytes (%) (Auto) 11.9 % (20.0-45.0) L Monocytes (%) (Auto) 6.2 % (1.0-10.0) Eosinophils (%) (Auto) 0.5 % (0.0-3.0) Basophils (%) (Auto) 1.4 % (0.0-2.0) Sodium Level 151 MMOL/L (136-145) H Potassium Level 4.1 MMOL/L (3.5-5.1) Chloride Level 115 MMOL/L (98-107) H Carbon Dioxide Level 27 MMOL/L (21-32) Anion Gap 9 mmol/L (5-15) Blood Urea Nitrogen 62 mg/dL (7-18) H Creatinine 2.2 MG/DL (0.55-1.30) H Estimat Glomerular Filtration Rate 27.1 mL/min (>60) Glucose Level 128 MG/DL (74-106) H Uric Acid 10.9 MG/DL (2.6-7.2) H Calcium Level 9.0 MG/DL (8.5-10.1) Phosphorus Level 3.2 MG/DL (2.5-4.9) Magnesium Level 2.6 MG/DL (1.8-2.4) H Total Bilirubin 1.4 MG/DL (0.2-1.0) H Direct Bilirubin 1.2 MG/DL (0.0-0.3) H Aspartate Amino Transf (AST/SGOT) 51 U/L (15-37) H Alanine Aminotransferase (ALT/SGPT) 8 U/L (12-78) L Alkaline Phosphatase 271 U/L (46-116) H C-Reactive Protein, Quantitative 5.6 mg/dL (0.00-0.90) H Pro-B-Type Natriuretic Peptide 2994 pg/mL (0-125) H Total Protein 6.9 G/DL (6.4-8.2) Albumin 2.3 G/DL (3.4-5.0) L Globulin 4.6 g/dL Albumin/Globulin Ratio 0.5 (1.0-2.7) L Arterial Blood pH 7.320 (7.350-7.450) 7.320 (7.350-7.450) Arterial Blood Partial Pressure CO2 46.0 mmHg (35.0-45.0) H 52.5 mmHg (35.0-45.0) H Arterial Blood Partial Pressure O2 103.6 mmHg (75.0-100.0) H 81.7 mmHg (75.0-100.0) Arterial Blood HCO3 23.5 mmol/L (22.0-26.0) 26.4 mmol/L (22.0-26.0) H Arterial Blood Oxygen Saturation 97.3 % (95-100) 94.9 % (95-100) L Arterial Blood Base Excess -2.7 (-2-2) L -0.4 (-2-2) Aditya Test Positive Positive Height (Feet): 5 Height (Inches): 3.00 Weight (Pounds): 330 General Appearance: no apparent distress, morbidly obese Cardiovascular: normal rate Respiratory/Chest: normal breath sounds, no respiratory distress, other - Mechanical ventilator Abdominal Exam: normal bowel sounds, non tender, soft, distended, other - OGT Extremities: non-tender Otilio Cohen NP May 20, 2018 12:48
--- NOTE | 2018-05-20 13:40 | Podiatric Progress Note ---
Assessment/Plan Patient Lilienzo Alcantar is a 67 year old female who was admitted on May 12, 2018 at 14:05 with Assessment/Plan A: DM with neuropathy PVD PAD left leg ulceration B/L digital eary signs of dry gangrene. p: - Pt seen and evaluated. - chart reviewed. - Temp 99 - WBC, 13.9 - blood, urine and sputum cx negative. - Wound Cx is noted to have polymicrobial infection. - Cont IV ABx per ID. - Rec cont local wound care xeroforom to ulcerations and betadine to digits 1-5 B/L LE. - Pt awaiting stabilization and vasc procedures. - Will cont to monitor. - No acute surgical intervention unless infection advances or wet gagnrene is noted. - Pod to cont to monitor. Subjective Allergies: Coded Allergies: ASPIRIN (Verified Allergy, Intermediate, Hives, 01/06/13) PENICILLINS (Verified Allergy, Intermediate, Hives, 01/06/13) Subjective Pt seen at bedside with nursing staff and is intubated. Objective Exam Last 24 Hour Vital Signs Date Time Temp Pulse Resp B/P (MAP) Pulse Ox O2 Delivery O2 Flow Rate FiO2 05/20/18 12:54 88 21 45 05/20/18 12:00 Mechanical Ventilator 05/20/18 12:00 93 05/20/18 12:00 87 21 120/80 (93) 100 05/20/18 12:00 45 05/20/18 11:26 88 21 45 05/20/18 11:00 90 20 117/79 (92) 100 05/20/18 10:00 99.0 84 22 112/66 (81) 97 05/20/18 09:22 82 23 45 05/20/18 09:00 85 20 110/68 (82) 98 05/20/18 08:37 110/76 05/20/18 08:00 75 18 98/65 (76) 98 05/20/18 08:00 86 05/20/18 08:00 98 05/20/18 08:00 Mechanical Ventilator 05/20/18 08:00 45 05/20/18 08:00 45 05/20/18 07:48 88 18 45 05/20/18 07:00 77 18 95/63 (74) 98 05/20/18 06:00 99.7 83 18 94/64 (74) 97 05/20/18 05:30 88 18 104/64 (77) 98 05/20/18 05:00 18 Mechanical Ventilator 45 05/20/18 05:00 85 18 104/59 (74) 97 05/20/18 04:50 77 18 45 05/20/18 04:30 92 22 100/69 (79) 100 05/20/18 04:30 12 Mechanical Ventilator 45 05/20/18 04:00 88 05/20/18 04:00 18 Mechanical Ventilator 45 05/20/18 04:00 Mechanical Ventilator 05/20/18 04:00 45 05/20/18 04:00 100.9 75 19 102/70 (81) 98 05/20/18 03:30 73 17 105/70 (82) 100 05/20/18 03:27 69 18 45 05/20/18 03:00 18 Mechanical Ventilator 45 05/20/18 03:00 72 18 94/70 (78) 98 05/20/18 02:00 77 17 98/68 (78) 98 05/20/18 02:00 Mechanical Ventilator 50 05/20/18 01:30 72 18 92/70 (77) 98 05/20/18 01:00 74 18 45 05/20/18 01:00 18 Mechanical Ventilator 50 05/20/18 01:00 77 18 97/65 (76) 99 05/20/18 00:30 68 18 93/73 (80) 98 05/20/18 00:00 67 05/20/18 00:00 18 Mechanical Ventilator 50 05/20/18 00:00 Mechanical Ventilator 05/20/18 00:00 50 05/20/18 00:00 99.1 65 18 101/56 (71) 99 05/19/18 23:35 65 17 89/61 (70) 99 05/19/18 23:30 64 18 87/57 (67) 98 05/19/18 23:12 64 18 45 05/19/18 23:00 64 18 91/41 (58) 99 05/19/18 22:30 73 18 94/57 (69) 99 05/19/18 22:00 80 18 92/75 (81) 99 05/19/18 22:00 18 Mechanical Ventilator 50 05/19/18 21:30 78 18 100/64 (76) 99 1/23/19 21:00 78 18 100/64 (76) 100 05/19/18 21:00 18 Mechanical Ventilator 50 05/19/18 21:00 84 18 50 05/19/18 20:30 75 18 100/66 (77) 100 05/19/18 20:00 99.6 74 18 106/70 (82) 100 05/19/18 20:00 18 Mechanical Ventilator 50 05/19/18 20:00 50 05/19/18 20:00 Mechanical Ventilator 05/19/18 20:00 76 05/19/18 19:00 78 18 98/75 (83) 100 05/19/18 19:00 18 Mechanical Ventilator 50 05/19/18 18:58 86 18 50 05/19/18 18:30 75 18 98/73 (81) 98 05/19/18 18:00 75 16 105/73 (84) 98 05/19/18 18:00 18 Mechanical Ventilator 50 05/19/18 17:30 77 18 104/32 (56) 98 05/19/18 17:00 80 18 50 05/19/18 17:00 18 Mechanical Ventilator 50 05/19/18 17:00 80 18 108/70 (83) 98 05/19/18 16:30 81 18 107/70 (82) 97 05/19/18 16:00 81 05/19/18 16:00 76 18 106/84 (91) 100 05/19/18 16:00 50 05/19/18 16:00 18 Mechanical Ventilator 50 05/19/18 16:00 Mechanical Ventilator 05/19/18 15:30 99.1 75 18 96/70 (79) 99 05/19/18 15:15 82 18 50 05/19/18 15:00 18 Mechanical Ventilator 50 05/19/18 15:00 81 18 94/70 (78) 99 05/19/18 14:32 81 18 50 05/19/18 14:30 94 18 106/77 (87) 99 05/19/18 14:00 20 Mechanical Ventilator 50 05/19/18 14:00 81 20 128/82 (97) 99 Laboratory Tests Test 05/20/18 04:30 05/20/18 08:02 05/20/18 12:27 White Blood Count 13.9 K/UL (4.8-10.8) H Red Blood Count 5.02 M/UL (4.20-5.40) Hemoglobin 12.2 G/DL (12.0-16.0) Hematocrit 42.1 % (37.0-47.0) Mean Corpuscular Volume 84 FL (80-99) Mean Corpuscular Hemoglobin 24.4 PG (27.0-31.0) L Mean Corpuscular Hemoglobin Concent 29.0 G/DL (32.0-36.0) L Red Cell Distribution Width 18.9 % (11.6-14.8) H Platelet Count 193 K/UL (150-450) Mean Platelet Volume 9.3 FL (6.5-10.1) Neutrophils (%) (Auto) 79.9 % (45.0-75.0) H Lymphocytes (%) (Auto) 11.9 % (20.0-45.0) L Monocytes (%) (Auto) 6.2 % (1.0-10.0) Eosinophils (%) (Auto) 0.5 % (0.0-3.0) Basophils (%) (Auto) 1.4 % (0.0-2.0) Sodium Level 151 MMOL/L (136-145) H Potassium Level 4.1 MMOL/L (3.5-5.1) Chloride Level 115 MMOL/L (98-107) H Carbon Dioxide Level 27 MMOL/L (21-32) Anion Gap 9 mmol/L (5-15) Blood Urea Nitrogen 62 mg/dL (7-18) H Creatinine 2.2 MG/DL (0.55-1.30) H Estimat Glomerular Filtration Rate 27.1 mL/min (>60) Glucose Level 128 MG/DL (74-106) H Uric Acid 10.9 MG/DL (2.6-7.2) H Calcium Level 9.0 MG/DL (8.5-10.1) Phosphorus Level 3.2 MG/DL (2.5-4.9) Magnesium Level 2.6 MG/DL (1.8-2.4) H Total Bilirubin 1.4 MG/DL (0.2-1.0) H Direct Bilirubin 1.2 MG/DL (0.0-0.3) H Aspartate Amino Transf (AST/SGOT) 51 U/L (15-37) H Alanine Aminotransferase (ALT/SGPT) 8 U/L (12-78) L Alkaline Phosphatase 271 U/L (46-116) H C-Reactive Protein, Quantitative 5.6 mg/dL (0.00-0.90) H Pro-B-Type Natriuretic Peptide 2994 pg/mL (0-125) H Total Protein 6.9 G/DL (6.4-8.2) Albumin 2.3 G/DL (3.4-5.0) L Globulin 4.6 g/dL Albumin/Globulin Ratio 0.5 (1.0-2.7) L Arterial Blood pH 7.320 (7.350-7.450) 7.320 (7.350-7.450) Arterial Blood Partial Pressure CO2 46.0 mmHg (35.0-45.0) H 52.5 mmHg (35.0-45.0) H Arterial Blood Partial Pressure O2 103.6 mmHg (75.0-100.0) H 81.7 mmHg (75.0-100.0) Arterial Blood HCO3 23.5 mmol/L (22.0-26.0) 26.4 mmol/L (22.0-26.0) H Arterial Blood Oxygen Saturation 97.3 % (95-100) 94.9 % (95-100) L Arterial Blood Base Excess -2.7 (-2-2) L -0.4 (-2-2) Aditya Test Positive Positive Microbiology Date/Time Source Procedure Growth Status 05/12/18 14:30 Blood Blood Culture - Final NO GROWTH AFTER 5 DAYS Complete 05/15/18 13:00 Sputum Induced Gram Stain - Final Complete 05/15/18 13:00 Sputum Induced Sputum Culture - Final NORMAL UPPER RESPIRATORY EZEQUIEL PRESENT Complete 05/13/18 08:45 Urine,Clean Catch Urine Culture - Final NO GROWTH AFTER 48 HOURS Complete 05/12/18 18:20 Leg Right Gram Stain - Final Complete 05/12/18 18:20 Wound Culture - Final Diphtheroids Complete Dermatological Dermatological Narrative VASCULAR: - DP/PT non-palpable. - edema noted distal to tibial tuberosity to B/L LE. NEUROLOGIC: - SILT and protective sensation decreased to all dermatomes B/L. MUSCULOSKELETAL: -The patient is bedbound with decreased muscle strength to all qudarants. No gross deformities appreciated. DERMATOLOGICAL: RLE - necrosis noted to digits 1-5 B/L . Early signs of dry gangrene is noted. LLE: - Ulceration is noted to the anterior aspect of the left leg two spots noted, The ulcerations noted to be 4.0 cm x 1.0 cm in diameter, with wound base noted to be at subQ with fibrotic tissue. No active purulent drainage noted. - necrosis noted to digits 1-5. Early signs of dry gangrene is noted. Jordin Obregon DPM May 20, 2018 13:40
--- NOTE | 2018-05-20 14:00 | NUR ---
NURSE NOTES: Patient turned and repositioned. Tolerating current ventilator settings well. ABG taken per MD order. Will continue plan of care.
--- NOTE | 2018-05-20 14:41 | General Progress Note ---
Assessment/Plan Assessment/Plan S, O: Intubated, PICC line in place, patient awake, not following commands. limited exam PHYSICAL EXAMINATION: HEAD AND NECK: Atraumatic and normocephalic. CHEST: Diffuse bronchial breathing sounds. Overall decreased breathing sounds. ABDOMEN: Grossly morbidly obese. Limited evaluation. MUSCULOSKELETAL: Positive for ulcers and wounds, more diffusely edematous about 2+, superficial wounds on both legs , dressed . NEUROLOGIC: The patient is sedated and intubated. limited exam, Upper arms in soft restraint Meds: Reviewed and reconciled. Including Dopamine gtt Renal Us : reviewed ASSESSMENT: 1.Vent Dependent Respiratory failure 2. shock, ddx: septic vs cardiogenic 3. CHF exacerbation, right sided, preserved EF 3. Acute/Chronic Renal F 4. Abnormal Trop: NSTEMI vs Leakage 3. UTI/lower extremity infection Hypertension. 4. Diabetes type 2, controlled with A1c of 6.3. 5. Pain management. 6. PAH 7. 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 GI and DVT prophylaxis. PLAN OF CARE: Grave prognosis Off pressor, preserved BP Empirical abx, per ID Will Followup with pulmonary for weaning trial Subjective Allergies: Coded Allergies: ASPIRIN (Verified Allergy, Intermediate, Hives, 01/06/13) PENICILLINS (Verified Allergy, Intermediate, Hives, 01/06/13) Objective Last 24 Hour Vital Signs Date Time Temp Pulse Resp B/P (MAP) Pulse Ox O2 Delivery O2 Flow Rate FiO2 05/20/18 14:00 85 22 128/86 (100) 100 05/20/18 13:00 82 20 122/84 (97) 100 05/20/18 12:54 88 21 45 05/20/18 12:00 Mechanical Ventilator 05/20/18 12:00 93 05/20/18 12:00 87 21 120/80 (93) 100 05/20/18 12:00 45 05/20/18 11:26 88 21 45 05/20/18 11:00 90 20 117/79 (92) 100 05/20/18 10:00 99.0 84 22 112/66 (81) 97 05/20/18 09:22 82 23 45 05/20/18 09:00 85 20 110/68 (82) 98 05/20/18 08:37 110/76 05/20/18 08:00 75 18 98/65 (76) 98 05/20/18 08:00 86 05/20/18 08:00 98 05/20/18 08:00 Mechanical Ventilator 05/20/18 08:00 45 05/20/18 08:00 45 05/20/18 07:48 88 18 45 05/20/18 07:00 77 18 95/63 (74) 98 05/20/18 06:00 99.7 83 18 94/64 (74) 97 05/20/18 05:30 88 18 104/64 (77) 98 05/20/18 05:00 18 Mechanical Ventilator 45 05/20/18 05:00 85 18 104/59 (74) 97 05/20/18 04:50 77 18 45 05/20/18 04:30 92 22 100/69 (79) 100 05/20/18 04:30 12 Mechanical Ventilator 45 05/20/18 04:00 88 05/20/18 04:00 18 Mechanical Ventilator 45 05/20/18 04:00 Mechanical Ventilator 05/20/18 04:00 45 05/20/18 04:00 100.9 75 19 102/70 (81) 98 05/20/18 03:30 73 17 105/70 (82) 100 05/20/18 03:27 69 18 45 05/20/18 03:00 18 Mechanical Ventilator 45 05/20/18 03:00 72 18 94/70 (78) 98 05/20/18 02:00 77 17 98/68 (78) 98 05/20/18 02:00 Mechanical Ventilator 50 05/20/18 01:30 72 18 92/70 (77) 98 05/20/18 01:00 74 18 45 05/20/18 01:00 18 Mechanical Ventilator 50 05/20/18 01:00 77 18 97/65 (76) 99 05/20/18 00:30 68 18 93/73 (80) 98 05/20/18 00:00 67 05/20/18 00:00 18 Mechanical Ventilator 50 05/20/18 00:00 Mechanical Ventilator 05/20/18 00:00 50 05/20/18 00:00 99.1 65 18 101/56 (71) 99 05/19/18 23:35 65 17 89/61 (70) 99 05/19/18 23:30 64 18 87/57 (67) 98 05/19/18 23:12 64 18 45 05/19/18 23:00 64 18 91/41 (58) 99 05/19/18 22:30 73 18 94/57 (69) 99 05/19/18 22:00 80 18 92/75 (81) 99 05/19/18 22:00 18 Mechanical Ventilator 50 05/19/18 21:30 78 18 100/64 (76) 99 05/19/18 21:00 78 18 100/64 (76) 100 05/19/18 21:00 18 Mechanical Ventilator 50 05/19/18 21:00 84 18 50 05/19/18 20:30 75 18 100/66 (77) 100 05/19/18 20:00 99.6 74 18 106/70 (82) 100 05/19/18 20:00 18 Mechanical Ventilator 50 05/19/18 20:00 50 05/19/18 20:00 Mechanical Ventilator 05/19/18 20:00 76 05/19/18 19:00 78 18 98/75 (83) 100 05/19/18 19:00 18 Mechanical Ventilator 50 05/19/18 18:58 86 18 50 05/19/18 18:30 75 18 98/73 (81) 98 05/19/18 18:00 75 16 105/73 (84) 98 05/19/18 18:00 18 Mechanical Ventilator 50 05/19/18 17:30 77 18 104/32 (56) 98 05/19/18 17:00 80 18 50 05/19/18 17:00 18 Mechanical Ventilator 50 05/19/18 17:00 80 18 108/70 (83) 98 05/19/18 16:30 81 18 107/70 (82) 97 05/19/18 16:00 81 05/19/18 16:00 76 18 106/84 (91) 100 05/19/18 16:00 50 05/19/18 16:00 18 Mechanical Ventilator 50 05/19/18 16:00 Mechanical Ventilator 05/19/18 15:30 99.1 75 18 96/70 (79) 99 05/19/18 15:15 82 18 50 05/19/18 15:00 18 Mechanical Ventilator 50 05/19/18 15:00 81 18 94/70 (78) 99 Intake and Output 05/19/18 05/20/18 19:00 07:00 Intake Total 620 ml 1085 ml Output Total 1120 ml 1765 ml Balance -500 ml -680 ml Free Water 130 ml 250 ml IV Total 245 ml 295 ml Tube Feeding 225 ml 540 ml Other 20 ml Output Urine Total 420 ml 265 ml Stool Total 700 ml 1500 ml Laboratory Tests 05/20/18 04:30: White Blood Count 13.9H, Red Blood Count 5.02, Hemoglobin 12.2, Hematocrit 42.1 , Mean Corpuscular Volume 84, Mean Corpuscular Hemoglobin 24.4L, Mean Corpuscular Hemoglobin Concent 29.0L, Red Cell Distribution Width 18.9H, Platelet Count 193, Mean Platelet Volume 9.3, Neutrophils (%) (Auto) 79.9H, Lymphocytes (%) (Auto) 11.9L, Monocytes (%) (Auto) 6.2, Eosinophils (%) (Auto) 0.5, Basophils (%) (Auto) 1.4, Sodium Level 151H, Potassium Level 4.1, Chloride Level 115H, Carbon Dioxide Level 27, Anion Gap 9, Blood Urea Nitrogen 62H, Creatinine 2.2H, Estimat Glomerular Filtration Rate 27.1, Glucose Level 128H, Uric Acid 10.9H, Calcium Level 9.0, Phosphorus Level 3.2, Magnesium Level 2.6H, Total Bilirubin 1.4H, Direct Bilirubin 1.2H, Aspartate Amino Transf (AST/SGOT) 51H, Alanine Aminotransferase (ALT/SGPT) 8L, Alkaline Phosphatase 271H, C- Reactive Protein, Quantitative 5.6H, Pro-B-Type Natriuretic Peptide 2994H, Total Protein 6.9, Albumin 2.3L, Globulin 4.6, Albumin/Globulin Ratio 0.5L 05/20/18 08:02: Arterial Blood pH 7.320L, Arterial Blood Partial Pressure CO2 46.0H, Arterial Blood Partial Pressure O2 103.6H, Arterial Blood HCO3 23.5, Arterial Blood Oxygen Saturation 97.3, Arterial Blood Base Excess -2.7L, Aditya Test Positive 05/20/18 12:27: Arterial Blood pH 7.320L, Arterial Blood Partial Pressure CO2 52.5H, Arterial Blood Partial Pressure O2 81.7, Arterial Blood HCO3 26.4H, Arterial Blood Oxygen Saturation 94.9L, Arterial Blood Base Excess -0.4, Aditya Test Positive 1/24/19 14:28: Arterial Blood pH 7.323L, Arterial Blood Partial Pressure CO2 49.2H, Arterial Blood Partial Pressure O2 86.1, Arterial Blood HCO3 25.0, Arterial Blood Oxygen Saturation 95.8, Arterial Blood Base Excess -1.5, Aditya Test Positive Height (Feet): 5 Height (Inches): 3.00 Weight (Pounds): 330 Margaret Mckinney MD May 20, 2018 14:41
--- NOTE | 2018-05-20 15:11 | Pulmonolgy Critical Care Note ---
Critical Care - Asmt/Plan Assessment/Plan: 67 y/o female w/ DM, CKD, morbid obesity admitted with b/l LE cellulitis and altered mental status. Problem List: 1. Altered mental status 2. Acute hypercapnic respiratory failure -intubated 05/15 3. Bilateral lower extremity cellulitis 4. RACHELLE on CKD 5. DM 6. Morbid obesity 7. Elevated ammonia level 8. RV failure Plan: -Wean down PS to 8 and ABG after 1 hour, if stable, extubate to BiPAP 09/10 -will need to monitor ABG closely if extubated -monitor volumes and renal function -Abx per ID -f/u cultures -monitor cellulitis Case d/w SLIP TENDER Respiratory: weaning trial Cardiac: continue to monitor HR/BP Renal: F/U I&O Infectious Disease: continue antibiotics Gastrointestinal: hold feedings Time Spent (Minutes): 40 Discussed with: nurses Critical Care - Objective Last 24 Hour Vital Signs Date Time Temp Pulse Resp B/P (MAP) Pulse Ox O2 Delivery O2 Flow Rate FiO2 05/20/18 14:00 85 22 128/86 (100) 100 05/20/18 13:00 82 20 122/84 (97) 100 05/20/18 12:54 88 21 45 05/20/18 12:00 Mechanical Ventilator 05/20/18 12:00 93 05/20/18 12:00 87 21 120/80 (93) 100 05/20/18 12:00 45 05/20/18 11:26 88 21 45 05/20/18 11:00 90 20 117/79 (92) 100 05/20/18 10:00 99.0 84 22 112/66 (81) 97 05/20/18 09:22 82 23 45 05/20/18 09:00 85 20 110/68 (82) 98 05/20/18 08:37 110/76 05/20/18 08:00 75 18 98/65 (76) 98 05/20/18 08:00 86 05/20/18 08:00 98 05/20/18 08:00 Mechanical Ventilator 05/20/18 08:00 45 05/20/18 08:00 45 05/20/18 07:48 88 18 45 05/20/18 07:00 77 18 95/63 (74) 98 05/20/18 06:00 99.7 83 18 94/64 (74) 97 05/20/18 05:30 88 18 104/64 (77) 98 05/20/18 05:00 18 Mechanical Ventilator 45 05/20/18 05:00 85 18 104/59 (74) 97 05/20/18 04:50 77 18 45 05/20/18 04:30 92 22 100/69 (79) 100 05/20/18 04:30 12 Mechanical Ventilator 45 05/20/18 04:00 88 05/20/18 04:00 18 Mechanical Ventilator 45 05/20/18 04:00 Mechanical Ventilator 05/20/18 04:00 45 05/20/18 04:00 100.9 75 19 102/70 (81) 98 05/20/18 03:30 73 17 105/70 (82) 100 05/20/18 03:27 69 18 45 05/20/18 03:00 18 Mechanical Ventilator 45 05/20/18 03:00 72 18 94/70 (78) 98 05/20/18 02:00 77 17 98/68 (78) 98 05/20/18 02:00 Mechanical Ventilator 50 05/20/18 01:30 72 18 92/70 (77) 98 05/20/18 01:00 74 18 45 05/20/18 01:00 18 Mechanical Ventilator 50 05/20/18 01:00 77 18 97/65 (76) 99 05/20/18 00:30 68 18 93/73 (80) 98 05/20/18 00:00 67 05/20/18 00:00 18 Mechanical Ventilator 50 05/20/18 00:00 Mechanical Ventilator 05/20/18 00:00 50 05/20/18 00:00 99.1 65 18 101/56 (71) 99 05/19/18 23:35 65 17 89/61 (70) 99 05/19/18 23:30 64 18 87/57 (67) 98 05/19/18 23:12 64 18 45 05/19/18 23:00 64 18 91/41 (58) 99 05/19/18 22:30 73 18 94/57 (69) 99 05/19/18 22:00 80 18 92/75 (81) 99 05/19/18 22:00 18 Mechanical Ventilator 50 05/19/18 21:30 78 18 100/64 (76) 99 05/19/18 21:00 78 18 100/64 (76) 100 05/19/18 21:00 18 Mechanical Ventilator 50 05/19/18 21:00 84 18 50 05/19/18 20:30 75 18 100/66 (77) 100 05/19/18 20:00 99.6 74 18 106/70 (82) 100 05/19/18 20:00 18 Mechanical Ventilator 50 05/19/18 20:00 50 05/19/18 20:00 Mechanical Ventilator 05/19/18 20:00 76 05/19/18 19:00 78 18 98/75 (83) 100 05/19/18 19:00 18 Mechanical Ventilator 50 05/19/18 18:58 86 18 50 05/19/18 18:30 75 18 98/73 (81) 98 05/19/18 18:00 75 16 105/73 (84) 98 05/19/18 18:00 18 Mechanical Ventilator 50 05/19/18 17:30 77 18 104/32 (56) 98 05/19/18 17:00 80 18 50 05/19/18 17:00 18 Mechanical Ventilator 50 05/19/18 17:00 80 18 108/70 (83) 98 05/19/18 16:30 81 18 107/70 (82) 97 05/19/18 16:00 81 05/19/18 16:00 76 18 106/84 (91) 100 05/19/18 16:00 50 05/19/18 16:00 18 Mechanical Ventilator 50 05/19/18 16:00 Mechanical Ventilator 05/19/18 15:30 99.1 75 18 96/70 (79) 99 05/19/18 15:15 82 18 50 Status: awake Condition: improving HEENT: normocephalic Lungs: other - Coarse anteriorly Heart: HR/BP stable Abdomen: soft, non-tender Extremities: edema Accucheck: 106 Critical Care - Subjective ROS Limited/Unobtainable: Yes Interval Events: ABGs better and tolerating PS 10. Eager and agitated to have tube removed. Secretions stable. BP stable. BUN higher. Condition: stable EKG Rhythm: Sinus Rhythm FI02: 45 Vent Support Breath Rate: 18 Vent Support Mode: CPAP Vent Tidal Volume: 550 Sputum Amount: Small PEEP: 6.0 PIP: 18 Tube Feeding Amount: 45 I&O: Intake and Output 05/19/18 05/20/18 19:00 07:00 Intake Total 620 ml 1085 ml Output Total 1120 ml 1765 ml Balance -500 ml -680 ml Free Water 130 ml 250 ml IV Total 245 ml 295 ml Tube Feeding 225 ml 540 ml Other 20 ml Output Urine Total 420 ml 265 ml Stool Total 700 ml 1500 ml ET-Tube: 7.5 ET Position: 24 Hemal Ritchie MD May 20, 2018 15:11
--- NOTE | 2018-05-20 15:42 | Nephrology Progress Note ---
Assessment/Plan Problem List: (1) ARF (acute renal failure) (2) Cellulitis of both lower extremities (3) Venous stasis ulcers of both lower extremities (4) DM (diabetes mellitus) (5) CKD (chronic kidney disease) (6) Morbid (severe) obesity due to excess calories (7) Acute hypoxemic respiratory failure Assessment Diabetic Nephropathy acute renal failure super imposed on CKD Encephalopathy, CO2 retainer, respiratory failure acute Obesity High Trop High Bili UTI Bilateral LE cellulitis Anemia Plan on weaning trial 24 h urine crcl 29 cc 24 h protein 0.6 gr midodrine increase dose DC IV fluids pulmonary support / Mechanical ventilation Anaya pressors as needed OG feeding Avoid nephrotoxics monitor renal parameters 2D echo Ej Fx 55% kidney WESLEY no pathology reported Per ID , Pulm... meds IV or OG tube Avoid mind altering meds per orders Subjective ROS Limited/Unobtainable: Yes Objective Objective Last 24 Hour Vital Signs Date Time Temp Pulse Resp B/P (MAP) Pulse Ox O2 Delivery O2 Flow Rate FiO2 05/20/18 15:16 81 17 45 05/20/18 15:00 99.0 80 20 117/84 (95) 100 05/20/18 14:00 85 22 128/86 (100) 100 05/20/18 13:00 82 20 122/84 (97) 100 05/20/18 12:54 88 21 45 05/20/18 12:00 Mechanical Ventilator 05/20/18 12:00 93 05/20/18 12:00 87 21 120/80 (93) 100 05/20/18 12:00 45 05/20/18 11:26 88 21 45 05/20/18 11:00 90 20 117/79 (92) 100 05/20/18 10:00 99.0 84 22 112/66 (81) 97 05/20/18 09:22 82 23 45 05/20/18 09:00 85 20 110/68 (82) 98 05/20/18 08:37 110/76 05/20/18 08:00 75 18 98/65 (76) 98 05/20/18 08:00 86 05/20/18 08:00 98 05/20/18 08:00 Mechanical Ventilator 05/20/18 08:00 45 05/20/18 08:00 45 05/20/18 07:48 88 18 45 05/20/18 07:00 77 18 95/63 (74) 98 05/20/18 06:00 99.7 83 18 94/64 (74) 97 05/20/18 05:30 88 18 104/64 (77) 98 05/20/18 05:00 18 Mechanical Ventilator 45 05/20/18 05:00 85 18 104/59 (74) 97 05/20/18 04:50 77 18 45 05/20/18 04:30 92 22 100/69 (79) 100 05/20/18 04:30 12 Mechanical Ventilator 45 05/20/18 04:00 88 05/20/18 04:00 18 Mechanical Ventilator 45 05/20/18 04:00 Mechanical Ventilator 05/20/18 04:00 45 05/20/18 04:00 100.9 75 19 102/70 (81) 98 05/20/18 03:30 73 17 105/70 (82) 100 05/20/18 03:27 69 18 45 05/20/18 03:00 18 Mechanical Ventilator 45 05/20/18 03:00 72 18 94/70 (78) 98 05/20/18 02:00 77 17 98/68 (78) 98 05/20/18 02:00 Mechanical Ventilator 50 05/20/18 01:30 72 18 92/70 (77) 98 05/20/18 01:00 74 18 45 05/20/18 01:00 18 Mechanical Ventilator 50 05/20/18 01:00 77 18 97/65 (76) 99 05/20/18 00:30 68 18 93/73 (80) 98 05/20/18 00:00 67 05/20/18 00:00 18 Mechanical Ventilator 50 05/20/18 00:00 Mechanical Ventilator 05/20/18 00:00 50 05/20/18 00:00 99.1 65 18 101/56 (71) 99 05/19/18 23:35 65 17 89/61 (70) 99 05/19/18 23:30 64 18 87/57 (67) 98 05/19/18 23:12 64 18 45 05/19/18 23:00 64 18 91/41 (58) 99 05/19/18 22:30 73 18 94/57 (69) 99 05/19/18 22:00 80 18 92/75 (81) 99 05/19/18 22:00 18 Mechanical Ventilator 50 05/19/18 21:30 78 18 100/64 (76) 99 05/19/18 21:00 78 18 100/64 (76) 100 05/19/18 21:00 18 Mechanical Ventilator 50 05/19/18 21:00 84 18 50 05/19/18 20:30 75 18 100/66 (77) 100 05/19/18 20:00 99.6 74 18 106/70 (82) 100 05/19/18 20:00 18 Mechanical Ventilator 50 05/19/18 20:00 50 05/19/18 20:00 Mechanical Ventilator 05/19/18 20:00 76 05/19/18 19:00 78 18 98/75 (83) 100 05/19/18 19:00 18 Mechanical Ventilator 50 05/19/18 18:58 86 18 50 05/19/18 18:30 75 18 98/73 (81) 98 05/19/18 18:00 75 16 105/73 (84) 98 05/19/18 18:00 18 Mechanical Ventilator 50 05/19/18 17:30 77 18 104/32 (56) 98 05/19/18 17:00 80 18 50 05/19/18 17:00 18 Mechanical Ventilator 50 05/19/18 17:00 80 18 108/70 (83) 98 05/19/18 16:30 81 18 107/70 (82) 97 05/19/18 16:00 81 05/19/18 16:00 76 18 106/84 (91) 100 05/19/18 16:00 50 05/19/18 16:00 18 Mechanical Ventilator 50 05/19/18 16:00 Mechanical Ventilator Intake and Output 05/19/18 05/20/18 19:00 07:00 Intake Total 620 ml 1085 ml Output Total 1120 ml 1765 ml Balance -500 ml -680 ml Free Water 130 ml 250 ml IV Total 245 ml 295 ml Tube Feeding 225 ml 540 ml Other 20 ml Output Urine Total 420 ml 265 ml Stool Total 700 ml 1500 ml Laboratory Tests 05/20/18 04:30: White Blood Count 13.9H, Red Blood Count 5.02, Hemoglobin 12.2, Hematocrit 42.1 , Mean Corpuscular Volume 84, Mean Corpuscular Hemoglobin 24.4L, Mean Corpuscular Hemoglobin Concent 29.0L, Red Cell Distribution Width 18.9H, Platelet Count 193, Mean Platelet Volume 9.3, Neutrophils (%) (Auto) 79.9H, Lymphocytes (%) (Auto) 11.9L, Monocytes (%) (Auto) 6.2, Eosinophils (%) (Auto) 0.5, Basophils (%) (Auto) 1.4, Sodium Level 151H, Potassium Level 4.1, Chloride Level 115H, Carbon Dioxide Level 27, Anion Gap 9, Blood Urea Nitrogen 62H, Creatinine 2.2H, Estimat Glomerular Filtration Rate 27.1, Glucose Level 128H, Uric Acid 10.9H, Calcium Level 9.0, Phosphorus Level 3.2, Magnesium Level 2.6H, Total Bilirubin 1.4H, Direct Bilirubin 1.2H, Aspartate Amino Transf (AST/SGOT) 51H, Alanine Aminotransferase (ALT/SGPT) 8L, Alkaline Phosphatase 271H, C- Reactive Protein, Quantitative 5.6H, Pro-B-Type Natriuretic Peptide 2994H, Total Protein 6.9, Albumin 2.3L, Globulin 4.6, Albumin/Globulin Ratio 0.5L 05/20/18 08:02: Arterial Blood pH 7.320L, Arterial Blood Partial Pressure CO2 46.0H, Arterial Blood Partial Pressure O2 103.6H, Arterial Blood HCO3 23.5, Arterial Blood Oxygen Saturation 97.3, Arterial Blood Base Excess -2.7L, Aditya Test Positive 05/20/18 12:27: Arterial Blood pH 7.320L, Arterial Blood Partial Pressure CO2 52.5H, Arterial Blood Partial Pressure O2 81.7, Arterial Blood HCO3 26.4H, Arterial Blood Oxygen Saturation 94.9L, Arterial Blood Base Excess -0.4, Aditya Test Positive 05/20/18 14:28: Arterial Blood pH 7.323L, Arterial Blood Partial Pressure CO2 49.2H, Arterial Blood Partial Pressure O2 86.1, Arterial Blood HCO3 25.0, Arterial Blood Oxygen Saturation 95.8, Arterial Blood Base Excess -1.5, Aditya Test Positive Height (Feet): 5 Height (Inches): 3.00 Weight (Pounds): 330 EENT: other - vented Objective no change Tr Strange MD May 20, 2018 15:42
--- NOTE | 2018-05-20 16:00 | NUR ---
NURSE NOTES: Patient turned and repositioned. New orders obtained form Doctor. Doctor wants tube feeds held tomorrow 6 am. At 8 AM patient needs to be on CPAP PS of 8. At 9 am stat ABGs and report to MD. Plan for extubation tomorrow.
--- NOTE | 2018-05-20 16:42 | Infectious Diseases Prog Note ---
Assessment/Plan Problems: (1) Bilateral lower leg cellulitis Assessment & Plan: wound culture grew klibsella oxytoca, and Sphingomonas paucimobilis , continue doxycycline and aztreonam empirically with local wounds care . patient has refused MRI and CT of the legs to rule out deep abscess or osteomyelitis. await on bone scan of both legs once clinically stable . 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 (2) Nonhealing ulcer of left lower extremity Assessment & Plan: wound culture grew klebsiella oxytoca and Sphingomonas paucimobilis, now on aztreonam and doxycycline , continue local wound care and dressings change as per wound care service as per plastic surgery recommendations (3) Painful legs and moving toes Assessment & Plan: suspect due to the above , will order venous doppler to rule out DVT (4) CKD (chronic kidney disease) Assessment & Plan: avoid nephrotoxics , renally dosed antibiotics as per pharmacy (5) DM (diabetes mellitus) Assessment & Plan: recommend tight glycemic control to keep blood glucose between 100-140 (6) Acute encephalopathy Assessment & Plan: suspect metabolic with high ammonia level, continue lactulose , consult neurology if no improvement (7) Acute hypoxemic respiratory failure Assessment & Plan: due to the above , intubated on mechanical ventilation, pulmonary is following, on weaning trials Subjective ROS Limited/Unobtainable: Yes Respiratory: Reports: dry cough Skin: Reports: ulcer Allergies: Coded Allergies: ASPIRIN (Verified Allergy, Intermediate, Hives, 01/06/13) PENICILLINS (Verified Allergy, Intermediate, Hives, 01/06/13) Subjective she was still intubated on mechanical ventilation in ICU , awake and responsive , on weaning trials , afebrile, NAD . has good UOP , not on pressor Objective Vital Signs Last 24 Hour Vital Signs Date Time Temp Pulse Resp B/P (MAP) Pulse Ox O2 Delivery O2 Flow Rate FiO2 05/20/18 16:00 82 21 125/80 (95) 100 05/20/18 16:00 Mechanical Ventilator 05/20/18 16:00 45 05/20/18 15:16 81 17 45 05/20/18 15:00 99.0 80 20 117/84 (95) 100 05/20/18 14:00 85 22 128/86 (100) 100 05/20/18 13:00 82 20 122/84 (97) 100 05/20/18 12:54 88 21 45 05/20/18 12:00 Mechanical Ventilator 05/20/18 12:00 93 05/20/18 12:00 87 21 120/80 (93) 100 05/20/18 12:00 45 05/20/18 11:26 88 21 45 05/20/18 11:00 90 20 117/79 (92) 100 05/20/18 10:00 99.0 84 22 112/66 (81) 97 05/20/18 09:22 82 23 45 05/20/18 09:00 85 20 110/68 (82) 98 05/20/18 08:37 110/76 05/20/18 08:00 75 18 98/65 (76) 98 05/20/18 08:00 86 05/20/18 08:00 98 05/20/18 08:00 Mechanical Ventilator 05/20/18 08:00 45 05/20/18 08:00 45 05/20/18 07:48 88 18 45 05/20/18 07:00 77 18 95/63 (74) 98 05/20/18 06:00 99.7 83 18 94/64 (74) 97 05/20/18 05:30 88 18 104/64 (77) 98 05/20/18 05:00 18 Mechanical Ventilator 45 05/20/18 05:00 85 18 104/59 (74) 97 05/20/18 04:50 77 18 45 05/20/18 04:30 92 22 100/69 (79) 100 05/20/18 04:30 12 Mechanical Ventilator 45 05/20/18 04:00 88 05/20/18 04:00 18 Mechanical Ventilator 45 05/20/18 04:00 Mechanical Ventilator 05/20/18 04:00 45 05/20/18 04:00 100.9 75 19 102/70 (81) 98 05/20/18 03:30 73 17 105/70 (82) 100 05/20/18 03:27 69 18 45 05/20/18 03:00 18 Mechanical Ventilator 45 05/20/18 03:00 72 18 94/70 (78) 98 05/20/18 02:00 77 17 98/68 (78) 98 05/20/18 02:00 Mechanical Ventilator 50 05/20/18 01:30 72 18 92/70 (77) 98 05/20/18 01:00 74 18 45 05/20/18 01:00 18 Mechanical Ventilator 50 05/20/18 01:00 77 18 97/65 (76) 99 05/20/18 00:30 68 18 93/73 (80) 98 05/20/18 00:00 67 05/20/18 00:00 18 Mechanical Ventilator 50 05/20/18 00:00 Mechanical Ventilator 05/20/18 00:00 50 05/20/18 00:00 99.1 65 18 101/56 (71) 99 05/19/18 23:35 65 17 89/61 (70) 99 05/19/18 23:30 64 18 87/57 (67) 98 05/19/18 23:12 64 18 45 05/19/18 23:00 64 18 91/41 (58) 99 05/19/18 22:30 73 18 94/57 (69) 99 05/19/18 22:00 80 18 92/75 (81) 99 05/19/18 22:00 18 Mechanical Ventilator 50 05/19/18 21:30 78 18 100/64 (76) 99 05/19/18 21:00 78 18 100/64 (76) 100 05/19/18 21:00 18 Mechanical Ventilator 50 05/19/18 21:00 84 18 50 05/19/18 20:30 75 18 100/66 (77) 100 05/19/18 20:00 99.6 74 18 106/70 (82) 100 05/19/18 20:00 18 Mechanical Ventilator 50 05/19/18 20:00 50 05/19/18 20:00 Mechanical Ventilator 05/19/18 20:00 76 05/19/18 19:00 78 18 98/75 (83) 100 05/19/18 19:00 18 Mechanical Ventilator 50 05/19/18 18:58 86 18 50 05/19/18 18:30 75 18 98/73 (81) 98 05/19/18 18:00 75 16 105/73 (84) 98 05/19/18 18:00 18 Mechanical Ventilator 50 05/19/18 17:30 77 18 104/32 (56) 98 05/19/18 17:00 80 18 50 05/19/18 17:00 18 Mechanical Ventilator 50 05/19/18 17:00 80 18 108/70 (83) 98 Height (Feet): 5 Height (Inches): 3.00 Weight (Pounds): 330 General Appearance: WD/WN, no acute distress HEENT: normocephalic, atraumatic, anicteric, mucous membranes moist, PERRL Respiratory/Chest: chest wall non-tender, no respiratory distress, no accessory muscle use, decreased breath sounds, crackles/rales Cardiovascular: normal peripheral pulses, normal rate, regular rhythm, no gallop/murmur, no JVD Abdomen: normal bowel sounds, soft, non tender, no organomegaly, non distended , no mass, no scars Genitourinary: normal external genitalia Extremities: no cyanosis, no clubbing Skin: no rash, no lesions, ulcers Neurologic/Psychiatric: alert, responsive Lymphatic: no neck adenopathy, no groin adenopathy Musculoskeletal: normal muscle bulk, no effusion Laboratory Tests Test 05/20/18 04:30 05/20/18 08:02 05/20/18 12:27 05/20/18 14:28 White Blood Count 13.9 K/UL (4.8-10.8) H Red Blood Count 5.02 M/UL (4.20-5.40) Hemoglobin 12.2 G/DL (12.0-16.0) Hematocrit 42.1 % (37.0-47.0) Mean Corpuscular Volume 84 FL (80-99) Mean Corpuscular Hemoglobin 24.4 PG (27.0-31.0) L Mean Corpuscular Hemoglobin Concent 29.0 G/DL (32.0-36.0) L Red Cell Distribution Width 18.9 % (11.6-14.8) H Platelet Count 193 K/UL (150-450) Mean Platelet Volume 9.3 FL (6.5-10.1) Neutrophils (%) (Auto) 79.9 % (45.0-75.0) H Lymphocytes (%) (Auto) 11.9 % (20.0-45.0) L Monocytes (%) (Auto) 6.2 % (1.0-10.0) Eosinophils (%) (Auto) 0.5 % (0.0-3.0) Basophils (%) (Auto) 1.4 % (0.0-2.0) Sodium Level 151 MMOL/L (136-145) H Potassium Level 4.1 MMOL/L (3.5-5.1) Chloride Level 115 MMOL/L (98-107) H Carbon Dioxide Level 27 MMOL/L (21-32) Anion Gap 9 mmol/L (5-15) Blood Urea Nitrogen 62 mg/dL (7-18) H Creatinine 2.2 MG/DL (0.55-1.30) H Estimat Glomerular Filtration Rate 27.1 mL/min (>60) Glucose Level 128 MG/DL (74-106) H Uric Acid 10.9 MG/DL (2.6-7.2) H Calcium Level 9.0 MG/DL (8.5-10.1) Phosphorus Level 3.2 MG/DL (2.5-4.9) Magnesium Level 2.6 MG/DL (1.8-2.4) H Total Bilirubin 1.4 MG/DL (0.2-1.0) H Direct Bilirubin 1.2 MG/DL (0.0-0.3) H Aspartate Amino Transf (AST/SGOT) 51 U/L (15-37) H Alanine Aminotransferase (ALT/SGPT) 8 U/L (12-78) L Alkaline Phosphatase 271 U/L (46-116) H C-Reactive Protein, Quantitative 5.6 mg/dL (0.00-0.90) H Pro-B-Type Natriuretic Peptide 2994 pg/mL (0-125) H Total Protein 6.9 G/DL (6.4-8.2) Albumin 2.3 G/DL (3.4-5.0) L Globulin 4.6 g/dL Albumin/Globulin Ratio 0.5 (1.0-2.7) L Arterial Blood pH 7.320 (7.350-7.450) 7.320 (7.350-7.450) 7.323 (7.350-7.450) Arterial Blood Partial Pressure CO2 46.0 mmHg (35.0-45.0) H 52.5 mmHg (35.0-45.0) H 49.2 mmHg (35.0-45.0) H Arterial Blood Partial Pressure O2 103.6 mmHg (75.0-100.0) H 81.7 mmHg (75.0-100.0) 86.1 mmHg (75.0-100.0) Arterial Blood HCO3 23.5 mmol/L (22.0-26.0) 26.4 mmol/L (22.0-26.0) H 25.0 mmol/L (22.0-26.0) Arterial Blood Oxygen Saturation 97.3 % (95-100) 94.9 % (95-100) L 95.8 % (95-100) Arterial Blood Base Excess -2.7 (-2-2) L -0.4 (-2-2) -1.5 (-2-2) Aditya Test Positive Positive Positive Test 05/20/18 16:20 Arterial Blood pH 7.318 (7.350-7.450) Arterial Blood Partial Pressure CO2 52.2 mmHg (35.0-45.0) H Arterial Blood Partial Pressure O2 82.3 mmHg (75.0-100.0) Arterial Blood HCO3 26.2 mmol/L (22.0-26.0) H Arterial Blood Oxygen Saturation 95.6 % (95-100) Arterial Blood Base Excess -0.6 (-2-2) Aditya Test Positive Current Medications Medications (Trade) Dose Ordered Sig/Toya Route PRN Reason Start Time Stop Time Status Last Admin Dose Admin Allopurinol (Allopurinol) 300 mg DAILY NG 05/19/18 13:00 06/18/18 12:59 05/20/18 08:36 Ascorbic Acid (Vitamin C) 500 mg TWICE A DAY NG 05/18/18 09:00 06/15/18 17:59 05/20/18 08:36 Atorvastatin Calcium (Lipitor) 20 mg BEDTIME ORAL 05/17/18 21:00 06/13/18 20:59 05/19/18 21:29 Aztreonam 2 gm/ Dextrose 110 ml @ 220 mls/hr Q8HR@0000,0800,1600 IVPB 05/17/18 16:00 05/24/18 15:59 05/20/18 16:05 Chlorhexidine Gluconate (Romy-Hex 2%) 1 applic DAILY@2000 TOPIC 05/14/18 20:00 06/13/18 19:59 05/19/18 20:00 Clopidogrel Bisulfate (Plavix) 75 mg DAILY NG 05/18/18 09:00 06/14/18 08:59 05/20/18 08:36 Dextrose (Dextrose 50%) 25 ml Q30M PRN IV Hypoglycemia 1/17/19 21:00 06/11/18 16:59 Dextrose (Dextrose 50%) 50 ml Q30M PRN IV Hypoglycemia 05/13/18 21:00 06/11/18 16:59 Dopamine HCl/ Dextrose 250 ml @ 0 mls/hr Q24H IV 05/15/18 19:00 06/14/18 18:59 05/16/18 18:05 Doxycycline Hyclate 100 mg/ Dextrose 110 ml @ 110 mls/hr Q12HR IV 05/19/18 21:00 05/26/18 20:59 05/20/18 08:35 Fentanyl Citrate 1000 mcg/Sodium Chloride 100 ml @ 0 mls/hr Q24H IV 05/15/18 22:00 05/22/18 21:59 05/20/18 05:00 Insulin Aspart (NovoLOG) Q6HR SUBQ 05/18/18 13:00 06/11/18 12:59 05/20/18 05:04 Lactulose (Cephulac) 30 gm Q8HR NG 05/14/18 14:00 06/12/18 17:59 05/20/18 14:00 Lorazepam (Ativan 2mg/ml 1ml) 2 mg Q4H PRN IV For Anxiety 05/14/18 12:00 05/21/18 11:59 05/14/18 16:38 Midodrine (Pro-Amatine) 5 mg THREE TIMES A DAY NG 05/20/18 18:00 06/17/18 12:59 Multivitamins (Multivitamins) 1 tab DAILY ORAL 05/18/18 09:00 06/16/18 08:59 05/20/18 08:36 Nitroglycerin (Ntg) 1 patch Q24H TDERMAL 05/15/18 09:00 06/14/18 08:59 05/19/18 09:48 Pantoprazole (Protonix) 40 mg EVERY 12 HOURS IVP 05/14/18 21:00 06/13/18 20:59 05/20/18 08:36 Povidone Iodine (Betadine Gretchen) 1 applic BID TOPIC 05/16/18 09:00 06/15/18 08:59 05/20/18 08:36 Rifaximin (Xifaxan) 550 mg EVERY 12 HOURS NG 05/18/18 09:00 05/27/18 23:59 05/20/18 08:36 Sodium Chloride 500 ml @ 999 mls/hr Q31M PRN IV For hypotension 05/14/18 01:30 06/13/18 01:29 05/14/18 06:10 Juice Wilkerson M.D. May 20, 2018 16:41
--- NOTE | 2018-05-20 18:00 | NUR ---
NURSE NOTES: Patient turned and repositioned. no new orders at this time. will continue plan of care.
[2018-05-20] MEDS: DOPamine 400mg/250ml 250 ML IV SCH (18:02)
--- NOTE | 2018-05-20 18:57 | NUR ---
HAND-OFF: Report given to LUCIO Armando using SBAR. VSS. No distress noted.
--- NOTE | 2018-05-20 19:30 | NUR ---
NURSE NOTES: Received report from Birgiti RN. Patient awake,alert Patient follows simple commands, nods as understanding. SR with BBB on the monitor HR 73. Patient is intubated 7.5/24 cm lipline AC 18 VT 550 FiO2 45% and peep of 5. No s/s of cardiac and acute distress noted. Patient receiving Glucerna 1.5 at 45 cc/hr via OGT. Large, round, non-tender abdomen. Hyperactive sound present on all 4 quadrants. Patient has rectal tube and Anaya, intact draining. Bilateral lower leg ulcer. L upper arm PICC line patient flushing. HOB elevated. bed locked and in lowest position. bed alarm on, bilateral soft wrist restraint checked. Will continue plan of care.
[2018-05-20] MEDS: Dyna-Hex 2% Top Sol 2oz TOPIC SCH (20:51)
[2018-05-20] MEDS: LORazepam Inj 2mg/ml 1ml IV PRN (20:51)
[2018-05-20] MEDS: Atorvastatin 20mg tab ORAL SCH (20:52)
--- NOTE | 2018-05-20 21:30 | NUR ---
NURSE NOTES: daughter at bedside. patient trying to communicate with daughter using pen and paper. patient with episode of anxiety, encouraged patient to verbalize needs,fears and feelings to staff, encouraged patient to do relaxation technique not effective. Ativan 2mg IVP given effective. Will continue to monitor patient.
--- NOTE | 2018-05-20 23:30 | NUR ---
NURSE NOTES: Patient in bed resting, suctioned as needed. HOB elevated. No s/s of hypo/hyperglycemia. Blood glucose 97mg/dl. Rectal tube and Anaya draining. Repositioned. Bilateral wrist restraint checked every 2 hour. Will continue to monitor patient.
[2018-05-21] VITALS (36 sets, daily range): BP systolic 71–130; BP diastolic 27–107
--- NOTE | 2018-05-21 01:30 | NUR ---
NURSE NOTES: Patient repositioned with staff member assist. No acute distress at this time. Patients vitals remain stable, no fever.
--- NOTE | 2018-05-21 03:30 | NUR ---
NURSE NOTES: Bed bath given tolerated well. OGT intact. Anaya draining. Rectal tube draining. Bilateral wrist restraint checked every 2 hours. HOB elevated.
--- NOTE | 2018-05-21 05:30 | NUR ---
NURSE NOTES: Blood glucose 84mg/dl. HOB elevated. No s/s of cardiac and acute and distress noted.
[2018-05-21] MEDS: NovoLOG Insulin Flexpen SUBQ SCH ×4 (06:00→17:26)
--- NOTE | 2018-05-21 06:00 | NUR ---
NURSE NOTES: NPO at 0600, turn off tube feeding for possible extubation after 0900. Denies any pain or discomfort, patient is excited to be extubated. Daughter will be here in am.
[2018-05-21] MEDS: Lactulose 10gm/15ml UDC NG SCH ×3 (06:49→22:23)
--- NOTE | 2018-05-21 06:54 | NUR ---
NURSE NOTES: fentanyl drip wasted (100 ml volume) with kelle walker rn,poured into the destroyer, hanged by yaya smith rn on 05/20/18 at 0500 but has not been used, discontinued.
[2018-05-21 06:56] LABS: ALANINE AMINOTRANSFERASE 7 U/L (12-78); ALBUMIN 2.2 G/DL (3.4-5.0); ALBUMIN/GLOBULIN RATIO 0.5 (1.0-2.7); ALKALINE PHOSPHATASE 240 U/L (46-116); ANION GAP 9 mmol/L (5-15); ASPARTATE AMINO TRANSFERASE 39 U/L (15-37); BILIRUBIN,TOTAL 1.5 MG/DL (0.2-1.0); BLOOD UREA NITROGEN 59 mg/dL (7-18); CARBON DIOXIDE 28 MMOL/L (21-32); CHLORIDE 118 MMOL/L (98-107); CREATININE 1.8 MG/DL (0.55-1.30); POTASSIUM 3.7 MMOL/L (3.5-5.1); SODIUM 155 MMOL/L (136-145)
[2018-05-21 07:01] LABS: HEMATOCRIT 39.1 % (37.0-47.0); HEMOGLOBIN 11.6 G/DL (12.0-16.0); MEAN CORPUSCULAR VOLUME 84 FL (80-99); PLATELET COUNT 201 K/UL (150-450); RED BLOOD COUNT 4.66 M/UL (4.20-5.40); RED CELL DISTRIBUTION WIDTH 19.3 % (11.6-14.8); WHITE BLOOD COUNT 14.2 K/UL (4.8-10.8)
[2018-05-21 07:02] LABS: BILIRUBIN,DIRECT 1.2 MG/DL (0.0-0.3)
--- NOTE | 2018-05-21 07:11 | NUR ---
Placed pt on CPAP per weaning orders. Pt is having low volumes and increased RR. Will watch for 5 min and assess if pt needs to be placed back on AC. Addendum: 05/21/18 at 0713 by LING RIVERO RT Amended: Links added.
--- NOTE | 2018-05-21 07:25 | NUR ---
HAND-OFF: Report given to Hailey VALDES.While giving bedside report found patient pulled out OGT, encouraged patient to verbalize needs,fears and feelings to staff per patient shes not aware that she pulled out OGT. AM nurse to reinsert OGT. Charge nurse aware.
--- NOTE | 2018-05-21 08:05 | NUR ---
NURSE NOTES: Pt received from LUCIO Farrell. ETT in place 7.09/17 lip line with AC 18 Vt 550, 45% FiO2, PEEP 5. Bilaterals soft wrist restraints with no apparent skin impairment.GT feeding on hold since 0600. Reinserted new OGT awaiting x ray confirmation.Pt has a Left upper arm double lumen PICC. Rectal tube in place draining brown liquid stool.Anaya catheter in place draining yellowish urine with low output, no apparent sediments. Noted with bilateral upper extremities + 2 pitting edema.Bilateral lower extremities dressings clean dry and intact. Pt turned and repositioned. HOB elevated to prevent aspiration.Kept clean dry and comfortable.
--- NOTE | 2018-05-21 08:44 | NUR ---
Placed pt back on CPAP. Will continue to monitor and obtain abg. Addendum: 05/21/18 at 0844 by LING RIVERO RT Amended: Links added.
--- NOTE | 2018-05-21 08:55 | NUR ---
RADIOLOGY DEPT CHEST X-RAY DONE.-P.DYE
[2018-05-21] MEDS: Betadine 4oz Bottle TOPIC SCH ×2 (09:00→17:26)
--- NOTE | 2018-05-21 09:08 | NUR ---
NURSE NOTES: Pt was placed on CPAP with PS 0f 8 at 0800 and was unable to tolerated. Placed back on CPAP at 0800 and ABG done and relayed to Dr Ritchie with order to place back pt on AC mode . Per Dr Ritchie, sputum culture,stand by Fentanyl drip and continue weaning trial. Kept on close monitoring.
[2018-05-21] MEDS: Nitroglycerin Patch 0.4mg TDERMAL SCH (09:30)
[2018-05-21] MEDS: Ascorbic Acid 500mg tab NG SCH ×2 (09:31→17:25)
[2018-05-21] MEDS: Pantoprazole Inj IVP SCH ×2 (09:31→21:06)
[2018-05-21] MEDS: Doxycycline Hyclate 100 MG in D5W 110 ML IV SCH ×2 (09:34→21:00)
[2018-05-21] MEDS: [UNRECOGNIZED DRUG - OTHER] IVPB SCH ×6 (09:35→15:03)
[2018-05-21] MEDS: AZTREONAM IVPB SCH ×6 (09:35→15:03)
--- NOTE | 2018-05-21 10:12 | NUR ---
NURSE NOTES: Pt turned and repositioned . Mouth care done and family visited and update given. Kept on close monitoring.
--- NOTE | 2018-05-21 11:22 | Diagnostic Imaging Report ---
Indication: Cough Technique: One view of the chest Comparison: 05/20/2018 Findings: Stable satisfactory position of endotracheal tube. The heart is enlarged. Left arm PICC remains. There may be some pleural fluid on the right, not definitely evident previously. No definite infiltrates or congestion Impression: Equivocal small right pleural effusion versus prominent pleural fat Otherwise stable findings as described
--- NOTE | 2018-05-21 11:25 | Pulmonolgy Critical Care Note ---
Critical Care - Asmt/Plan Assessment/Plan: 67 y/o female w/ DM, CKD, morbid obesity admitted with b/l LE cellulitis and altered mental status. Problem List: 1. Altered mental status 2. Acute hypercapnic respiratory failure -intubated 05/15 3. Bilateral lower extremity cellulitis 4. RACHELLE on CKD 5. DM 6. Morbid obesity 7. Elevated ammonia level 8. RV failure Plan: -Trial of PS later today if more alert and ABG after one hour, otherwise, resume vent today and SBT tomorrow with ABG after one hour prior to consideration for extubation -will need to monitor ABG closely if extubated, will need bipap available -monitor volumes and renal function -Abx per ID -f/u cultures, send respiratory culture -increased leukocytosis, monitor -monitor cellulitis Case d/w [employer] Respiratory: weaning trial Cardiac: continue to monitor HR/BP Infectious Disease: check cultures, continue antibiotics Neurologic: keep patient comfortable Disposition: keep in ICU Time Spent (Minutes): 40 Discussed with: nurses Critical Care - Objective Last 24 Hour Vital Signs Date Time Temp Pulse Resp B/P (MAP) Pulse Ox O2 Delivery O2 Flow Rate FiO2 05/21/18 10:12 83 27 45 05/21/18 10:00 86 14 112/92 (99) 98 05/21/18 09:30 130/96 05/21/18 09:00 93 17 130/96 (107) 98 05/21/18 08:40 81 22 45 05/21/18 08:40 100 05/21/18 08:00 45 05/21/18 08:00 Mechanical Ventilator 05/21/18 08:00 79 05/21/18 08:00 98.4 81 19 125/93 (104) 98 05/21/18 07:30 81 19 125/93 (104) 98 05/21/18 07:13 79 21 45 05/21/18 07:07 81 27 45 05/21/18 07:00 79 18 123/107 (112) 98 05/21/18 06:30 78 7 120/93 (102) 98 05/21/18 06:00 78 16 113/93 (100) 100 05/21/18 05:30 77 16 117/103 (108) 100 05/21/18 05:19 79 21 45 05/21/18 05:00 78 15 121/91 (101) 100 05/21/18 04:00 45 05/21/18 04:00 Mechanical Ventilator 05/21/18 04:00 75 05/21/18 04:00 98.0 78 20 111/82 (92) 100 05/21/18 03:55 78 21 111/92 (98) 100 05/21/18 03:30 79 18 71/27 (42) 98 05/21/18 03:25 76 18 45 05/21/18 03:00 74 19 117/79 (92) 97 05/21/18 02:30 77 17 103/79 (87) 98 05/21/18 02:00 71 19 118/93 (101) 100 05/21/18 01:25 70 18 45 05/21/18 01:00 74 18 118/84 (95) 99 05/21/18 00:30 75 17 127/87 (100) 99 05/21/18 00:00 98.4 74 18 114/77 (89) 100 05/21/18 00:00 45 05/21/18 00:00 74 05/21/18 00:00 Mechanical Ventilator 05/20/18 23:22 79 19 45 05/20/18 23:00 77 18 98 05/20/18 22:30 80 18 122/105 (111) 97 05/20/18 22:00 79 20 126/86 (99) 98 05/20/18 21:30 77 18 117/82 (94) 97 05/20/18 21:28 80 18 45 05/20/18 21:00 78 17 117/75 (89) 95 05/20/18 20:00 45 05/20/18 20:00 73 05/20/18 20:00 Mechanical Ventilator 05/20/18 20:00 98.8 78 20 127/95 (106) 97 05/20/18 19:30 76 21 120/75 (90) 98 05/20/18 19:18 79 18 45 05/20/18 19:00 77 20 116/85 (95) 96 05/20/18 18:02 127/68 05/20/18 18:00 78 20 125/91 (102) 100 05/20/18 17:31 84 21 45 05/20/18 17:00 79 21 128/78 (95) 100 05/20/18 16:00 82 21 125/80 (95) 100 05/20/18 16:00 Mechanical Ventilator 05/20/18 16:00 90 05/20/18 16:00 45 05/20/18 15:16 81 17 45 05/20/18 15:00 99.0 80 20 117/84 (95) 100 05/20/18 14:00 85 22 128/86 (100) 100 05/20/18 13:00 82 20 122/84 (97) 100 05/20/18 12:54 88 21 45 05/20/18 12:00 Mechanical Ventilator 05/20/18 12:00 93 05/20/18 12:00 87 21 120/80 (93) 100 05/20/18 12:00 45 05/20/18 11:26 88 21 45 HEENT: atraumatic Lungs: other - coarse breath sounds anteriorly, diminished Heart: HR/BP stable Abdomen: soft Extremities: edema Accucheck: 84 Critical Care - Subjective ROS Limited/Unobtainable: Yes Interval Events: Did well on PS trial yesterday. Pulled OG tube overnight. Today on PS 8 was not tolerating well and ABG more acidotic. Has been uncomfortable/agitated off fentanyl gtt. Seems to have increased secretions. Condition: stable IV Access: PICC EKG Rhythm: Sinus Rhythm FI02: 45 Vent Support Breath Rate: 18 Vent Support Mode: AC Vent Tidal Volume: 550 Sputum Amount: Small PEEP: 6.0 PIP: 37 Tube Feeding Amount: 45 I&O: Intake and Output 05/20/18 05/21/18 18:59 06:59 Intake Total 840 ml 925 ml Output Total 310 ml 1150 ml Balance 530 ml -225 ml Free Water 300 ml 150 ml IV Total 220 ml Tube Feeding 540 ml 495 ml Other 60 ml Output Urine Total 310 ml 350 ml Stool Total 800 ml ET-Tube: 7.5 ET Position: 24 Hemal Ritchie MD May 21, 2018 11:25
--- NOTE | 2018-05-21 11:59 | GI Progress Note ---
Assessment/Plan Problems: (1) DM (diabetes mellitus) ICD Codes: E11.9 - DM (diabetes mellitus) SNOMED: 78439269 (2) Intractable abdominal pain ICD Codes: R10.9 - Unspecified abdominal pain SNOMED: 73202399 (3) Elevated transaminase level ICD Codes: R74.0 - Nonspecific elevation of levels of transaminase and lactic acid dehydrogenase [LDH] SNOMED: 145001126 (4) Abdominal distension ICD Codes: R14.0 - Abdominal distension (gaseous) SNOMED: 18655275 (5) Liver disease ICD Codes: K76.9 - Liver disease, unspecified SNOMED: 563161510 (6) Acute encephalopathy ICD Codes: G93.40 - Encephalopathy, unspecified SNOMED: 32244354, 125525362 (7) Hepatic encephalopathy ICD Codes: K72.90 - Hepatic failure, unspecified without coma SNOMED: 41278906 Status: unchanged Status Narrative Discussed with Dr. Paul. Assessment/Plan OB stool negative x2 hepatitis panel negative abdominal US reviewed >> - Ascites - Borderline hepatomegaly - Thick-walled gallbladder, likely in part artifact of nondistention, and in part due to hemodynamic factors causing the ascites. No definite gallstones. Acute cholecystitis not completely excludable, due to the wall thickening, and hepatobiliary scan should be considered if there is high clinical suspicion for such. - Negative for dilated ducts - To and fro flow within the main portal vein, could indicate portal hypertension HIDA and paracentesis when respiratory status stabilizes TF trial, tolerating cont lactulose Xifaxan Wean off of sedatives and narcotics monitor H&H, prn transfusions rectal tube bowel regime ppi fu labs will consider endoscopy pending work up, but will require cardiac clearance given elevated troponin levels. The patient was seen and examined at bedside and all new and available data was reviewed in the patients chart. I agree with the above findings, impression and plan. (Patient seen earlier today. Signature stamp does not reflect patient encounter time.). - Robert Paul MD Subjective Subjective limited Objective Last 24 Hour Vital Signs Date Time Temp Pulse Resp B/P (MAP) Pulse Ox O2 Delivery O2 Flow Rate FiO2 05/21/18 11:50 80 24 45 05/21/18 11:00 82 19 118/100 (106) 98 05/21/18 10:12 83 27 45 05/21/18 10:00 86 14 112/92 (99) 98 05/21/18 09:30 130/96 05/21/18 09:00 93 17 130/96 (107) 98 05/21/18 08:40 81 22 45 05/21/18 08:40 100 05/21/18 08:00 45 05/21/18 08:00 Mechanical Ventilator 05/21/18 08:00 79 05/21/18 08:00 98.4 81 19 125/93 (104) 98 05/21/18 07:30 81 19 125/93 (104) 98 05/21/18 07:13 79 21 45 05/21/18 07:07 81 27 45 05/21/18 07:00 79 18 123/107 (112) 98 05/21/18 06:30 78 7 120/93 (102) 98 05/21/18 06:00 78 16 113/93 (100) 100 05/21/18 05:30 77 16 117/103 (108) 100 05/21/18 05:19 79 21 45 05/21/18 05:00 78 15 121/91 (101) 100 05/21/18 04:00 45 05/21/18 04:00 Mechanical Ventilator 05/21/18 04:00 75 05/21/18 04:00 98.0 78 20 111/82 (92) 100 05/21/18 03:55 78 21 111/92 (98) 100 05/21/18 03:30 79 18 71/27 (42) 98 05/21/18 03:25 76 18 45 05/21/18 03:00 74 19 117/79 (92) 97 05/21/18 02:30 77 17 103/79 (87) 98 05/21/18 02:00 71 19 118/93 (101) 100 05/21/18 01:25 70 18 45 05/21/18 01:00 74 18 118/84 (95) 99 05/21/18 00:30 75 17 127/87 (100) 99 05/21/18 00:00 98.4 74 18 114/77 (89) 100 05/21/18 00:00 45 05/21/18 00:00 74 05/21/18 00:00 Mechanical Ventilator 05/20/18 23:22 79 19 45 05/20/18 23:00 77 18 98 05/20/18 22:30 80 18 122/105 (111) 97 05/20/18 22:00 79 20 126/86 (99) 98 05/20/18 21:30 77 18 117/82 (94) 97 05/20/18 21:28 80 18 45 05/20/18 21:00 78 17 117/75 (89) 95 05/20/18 20:00 45 05/20/18 20:00 73 05/20/18 20:00 Mechanical Ventilator 05/20/18 20:00 98.8 78 20 127/95 (106) 97 05/20/18 19:30 76 21 120/75 (90) 98 05/20/18 19:18 79 18 45 05/20/18 19:00 77 20 116/85 (95) 96 05/20/18 18:02 127/68 05/20/18 18:00 78 20 125/91 (102) 100 05/20/18 17:31 84 21 45 05/20/18 17:00 79 21 128/78 (95) 100 05/20/18 16:00 82 21 125/80 (95) 100 05/20/18 16:00 Mechanical Ventilator 05/20/18 16:00 90 05/20/18 16:00 45 05/20/18 15:16 81 17 45 05/20/18 15:00 99.0 80 20 117/84 (95) 100 05/20/18 14:00 85 22 128/86 (100) 100 05/20/18 13:00 82 20 122/84 (97) 100 05/20/18 12:54 88 21 45 05/20/18 12:00 Mechanical Ventilator 05/20/18 12:00 93 05/20/18 12:00 87 21 120/80 (93) 100 05/20/18 12:00 45 Intake and Output 05/20/18 05/21/18 18:59 06:59 Intake Total 840 ml 925 ml Output Total 310 ml 1150 ml Balance 530 ml -225 ml Free Water 300 ml 150 ml IV Total 220 ml Tube Feeding 540 ml 495 ml Other 60 ml Output Urine Total 310 ml 350 ml Stool Total 800 ml Laboratory Tests Test 05/20/18 12:27 05/20/18 14:28 05/20/18 16:20 05/21/18 06:00 Arterial Blood pH 7.320 (7.350-7.450) 7.323 (7.350-7.450) 7.318 (7.350-7.450) Arterial Blood Partial Pressure CO2 52.5 mmHg (35.0-45.0) H 49.2 mmHg (35.0-45.0) H 52.2 mmHg (35.0-45.0) H Arterial Blood Partial Pressure O2 81.7 mmHg (75.0-100.0) 86.1 mmHg (75.0-100.0) 82.3 mmHg (75.0-100.0) Arterial Blood HCO3 26.4 mmol/L (22.0-26.0) H 25.0 mmol/L (22.0-26.0) 26.2 mmol/L (22.0-26.0) H Arterial Blood Oxygen Saturation 94.9 % (95-100) L 95.8 % (95-100) 95.6 % (95-100) Arterial Blood Base Excess -0.4 (-2-2) -1.5 (-2-2) -0.6 (-2-2) Aditya Test Positive Positive Positive White Blood Count 14.2 K/UL (4.8-10.8) H Red Blood Count 4.66 M/UL (4.20-5.40) Hemoglobin 11.6 G/DL (12.0-16.0) L Hematocrit 39.1 % (37.0-47.0) Mean Corpuscular Volume 84 FL (80-99) Mean Corpuscular Hemoglobin 24.9 PG (27.0-31.0) L Mean Corpuscular Hemoglobin Concent 29.7 G/DL (32.0-36.0) L Red Cell Distribution Width 19.3 % (11.6-14.8) H Platelet Count 201 K/UL (150-450) Mean Platelet Volume 9.6 FL (6.5-10.1) Neutrophils (%) (Auto) % (45.0-75.0) Lymphocytes (%) (Auto) % (20.0-45.0) Monocytes (%) (Auto) % (1.0-10.0) Eosinophils (%) (Auto) % (0.0-3.0) Basophils (%) (Auto) % (0.0-2.0) Differential Total Cells Counted 100 Neutrophils % (Manual) 91 % (45-75) H Lymphocytes % (Manual) 4 % (20-45) L Monocytes % (Manual) 2 % (1-10) Eosinophils % (Manual) 3 % (0-3) Basophils % (Manual) 0 % (0-2) Band Neutrophils 0 % (0-8) Platelet Estimate Adequate Platelet Morphology Normal Hypochromasia 2+ Anisocytosis 2+ Sodium Level 155 MMOL/L (136-145) H Potassium Level 3.7 MMOL/L (3.5-5.1) Chloride Level 118 MMOL/L (98-107) H Carbon Dioxide Level 28 MMOL/L (21-32) Anion Gap 9 mmol/L (5-15) Blood Urea Nitrogen 59 mg/dL (7-18) H Creatinine 1.8 MG/DL (0.55-1.30) H Estimat Glomerular Filtration Rate 34.3 mL/min (>60) Glucose Level 99 MG/DL (74-106) Calcium Level 9.0 MG/DL (8.5-10.1) Total Bilirubin 1.5 MG/DL (0.2-1.0) H Direct Bilirubin 1.2 MG/DL (0.0-0.3) H Aspartate Amino Transf (AST/SGOT) 39 U/L (15-37) H Alanine Aminotransferase (ALT/SGPT) 7 U/L (12-78) L Alkaline Phosphatase 240 U/L (46-116) H Total Protein 6.5 G/DL (6.4-8.2) Albumin 2.2 G/DL (3.4-5.0) L Globulin 4.3 g/dL Albumin/Globulin Ratio 0.5 (1.0-2.7) L Test 05/21/18 09:00 Arterial Blood pH 7.289 (7.350-7.450) Arterial Blood Partial Pressure CO2 54.3 mmHg (35.0-45.0) H Arterial Blood Partial Pressure O2 94.0 mmHg (75.0-100.0) Arterial Blood HCO3 25.5 mmol/L (22.0-26.0) Arterial Blood Oxygen Saturation 96.9 % (95-100) Arterial Blood Base Excess -1.9 (-2-2) Aditya Test Positive Height (Feet): 5 Height (Inches): 3.00 Weight (Pounds): 328 General Appearance: no apparent distress, morbidly obese Cardiovascular: normal rate Respiratory/Chest: normal breath sounds, no respiratory distress, other - mech vent Abdominal Exam: normal bowel sounds, non tender, soft, other - OGT Extremities: non-tender Otilio Cohen NP May 21, 2018 11:59
[2018-05-21] MEDS ORDERED: fentaNYL Citrate 2,500 MCG in NS 200 ML IV PRN (12:00)
--- NOTE | 2018-05-21 12:40 | NUR ---
NURSE NOTES: Seen by Dr Mckinney, and update given, will follow up with new orders.Turned and repositioned, mouth care done.Kept on close monitoring
--- NOTE | 2018-05-21 13:20 | NUR ---
RADIOLOGY DEPT REPLACED FEEDING TUBE DONE ORALLY AND IMAGED.-P.DYE
[2018-05-21] MEDS: fentaNYL Citrate 1000 MCG in NS 100ml IV SCH (14:20)
--- NOTE | 2018-05-21 14:20 | NUR ---
NURSE NOTES: Turned and repositioned,seen by Dr Wilkerson, will follow up with new orders
--- NOTE | 2018-05-21 14:37 | Nephrology Progress Note ---
Assessment/Plan Problem List: (1) ARF (acute renal failure) (2) Cellulitis of both lower extremities (3) Venous stasis ulcers of both lower extremities (4) DM (diabetes mellitus) (5) CKD (chronic kidney disease) (6) Morbid (severe) obesity due to excess calories (7) Acute hypoxemic respiratory failure Assessment Diabetic Nephropathy acute renal failure super imposed on CKD Encephalopathy, CO2 retainer, respiratory failure acute Obesity High Trop High Bili UTI Bilateral LE cellulitis Anemia Plan D5W 500 cc H2O NGT on weaning trial 24 h urine crcl 29 cc 24 h protein 0.6 gr midodrine increase dose DC IV fluids pulmonary support / Mechanical ventilation Anaya pressors as needed OG feeding Avoid nephrotoxics monitor renal parameters 2D echo Ej Fx 55% kidney WESLEY no pathology reported Per ID , Pulm... meds IV or OG tube Avoid mind altering meds per orders Subjective ROS Limited/Unobtainable: Yes Objective Objective Last 24 Hour Vital Signs Date Time Temp Pulse Resp B/P (MAP) Pulse Ox O2 Delivery O2 Flow Rate FiO2 05/21/18 14:20 24 Mechanical Ventilator 45 05/21/18 14:00 79 15 117/97 (104) 100 05/21/18 13:00 79 12 92/62 (72) 97 05/21/18 12:47 72 26 45 05/21/18 12:00 Mechanical Ventilator 05/21/18 12:00 77 05/21/18 12:00 45 05/21/18 12:00 98.2 81 19 105/88 (94) 97 05/21/18 11:50 80 24 45 05/21/18 11:00 82 19 118/100 (106) 98 05/21/18 10:12 83 27 45 05/21/18 10:00 86 14 112/92 (99) 98 05/21/18 09:30 130/96 05/21/18 09:00 93 17 130/96 (107) 98 05/21/18 08:44 45 05/21/18 08:40 81 22 45 05/21/18 08:40 100 05/21/18 08:15 45 05/21/18 08:00 45 05/21/18 08:00 Mechanical Ventilator 05/21/18 08:00 79 05/21/18 08:00 98.4 81 19 125/93 (104) 98 05/21/18 07:30 81 19 125/93 (104) 98 05/21/18 07:13 79 21 45 05/21/18 07:07 81 27 45 05/21/18 07:00 79 18 123/107 (112) 98 05/21/18 06:30 78 7 120/93 (102) 98 05/21/18 06:00 78 16 113/93 (100) 100 05/21/18 05:30 77 16 117/103 (108) 100 05/21/18 05:19 79 21 45 05/21/18 05:00 78 15 121/91 (101) 100 05/21/18 04:00 45 05/21/18 04:00 Mechanical Ventilator 05/21/18 04:00 75 05/21/18 04:00 98.0 78 20 111/82 (92) 100 05/21/18 03:55 78 21 111/92 (98) 100 05/21/18 03:30 79 18 71/27 (42) 98 05/21/18 03:25 76 18 45 05/21/18 03:00 74 19 117/79 (92) 97 05/21/18 02:30 77 17 103/79 (87) 98 05/21/18 02:00 71 19 118/93 (101) 100 05/21/18 01:25 70 18 45 05/21/18 01:00 74 18 118/84 (95) 99 05/21/18 00:30 75 17 127/87 (100) 99 05/21/18 00:00 98.4 74 18 114/77 (89) 100 05/21/18 00:00 45 05/21/18 00:00 74 05/21/18 00:00 Mechanical Ventilator 05/20/18 23:22 79 19 45 05/20/18 23:00 77 18 98 05/20/18 22:30 80 18 122/105 (111) 97 05/20/18 22:00 79 20 126/86 (99) 98 05/20/18 21:30 77 18 117/82 (94) 97 05/20/18 21:28 80 18 45 05/20/18 21:00 78 17 117/75 (89) 95 05/20/18 20:00 45 05/20/18 20:00 73 05/20/18 20:00 Mechanical Ventilator 05/20/18 20:00 98.8 78 20 127/95 (106) 97 05/20/18 19:30 76 21 120/75 (90) 98 05/20/18 19:18 79 18 45 05/20/18 19:00 77 20 116/85 (95) 96 05/20/18 18:02 127/68 05/20/18 18:00 78 20 125/91 (102) 100 05/20/18 17:31 84 21 45 05/20/18 17:00 79 21 128/78 (95) 100 05/20/18 16:00 82 21 125/80 (95) 100 05/20/18 16:00 Mechanical Ventilator 05/20/18 16:00 90 05/20/18 16:00 45 05/20/18 15:16 81 17 45 05/20/18 15:00 99.0 80 20 117/84 (95) 100 Intake and Output 05/20/18 05/21/18 19:00 07:00 Intake Total 840 ml 880 ml Output Total 320 ml 1160 ml Balance 520 ml -280 ml Free Water 300 ml 150 ml IV Total 220 ml Tube Feeding 540 ml 450 ml Other 60 ml Output Urine Total 320 ml 360 ml Stool Total 800 ml Laboratory Tests 05/20/18 16:20: Arterial Blood pH 7.318L, Arterial Blood Partial Pressure CO2 52.2H, Arterial Blood Partial Pressure O2 82.3, Arterial Blood HCO3 26.2H, Arterial Blood Oxygen Saturation 95.6, Arterial Blood Base Excess -0.6, Aditya Test Positive 05/21/18 06:00: White Blood Count 14.2H, Red Blood Count 4.66, Hemoglobin 11.6L, Hematocrit 39.1 , Mean Corpuscular Volume 84, Mean Corpuscular Hemoglobin 24.9L, Mean Corpuscular Hemoglobin Concent 29.7L, Red Cell Distribution Width 19.3H, Platelet Count 201, Mean Platelet Volume 9.6, Neutrophils (%) (Auto) , Lymphocytes (%) (Auto) , Monocytes (%) (Auto) , Eosinophils (%) (Auto) , Basophils (%) (Auto) , Differential Total Cells Counted 100, Neutrophils % ( Manual) 91H, Lymphocytes % (Manual) 4L, Monocytes % (Manual) 2, Eosinophils % ( Manual) 3, Basophils % (Manual) 0, Band Neutrophils 0, Platelet Estimate Adequate, Platelet Morphology Normal, Hypochromasia 2+, Anisocytosis 2+, Sodium Level 155H, Potassium Level 3.7, Chloride Level 118H, Carbon Dioxide Level 28, Anion Gap 9, Blood Urea Nitrogen 59H, Creatinine 1.8H, Estimat Glomerular Filtration Rate 34.3, Glucose Level 99, Calcium Level 9.0, Total Bilirubin 1.5H , Direct Bilirubin 1.2H, Aspartate Amino Transf (AST/SGOT) 39H, Alanine Aminotransferase (ALT/SGPT) 7L, Alkaline Phosphatase 240H, Total Protein 6.5, Albumin 2.2L, Globulin 4.3, Albumin/Globulin Ratio 0.5L 05/21/18 09:00: Arterial Blood pH 7.289L, Arterial Blood Partial Pressure CO2 54.3H, Arterial Blood Partial Pressure O2 94.0, Arterial Blood HCO3 25.5, Arterial Blood Oxygen Saturation 96.9, Arterial Blood Base Excess -1.9, Aditya Test Positive Height (Feet): 5 Height (Inches): 3.00 Weight (Pounds): 328 General Appearance: no apparent distress Cardiovascular: bradycardia Respiratory/Chest: decreased breath sounds Abdomen: soft Objective no change Tr Strange MD May 21, 2018 14:37
--- NOTE | 2018-05-21 15:36 | Diagnostic Imaging Report ---
Indication: Reason For Exam: TUBE PLCMT Technique: Supine view of the upper abdomen for tube placement Comparison: 05/14/2017 Findings: There is an enteric feeding tube in place, tip of which projects at the expected level of the second portion of the duodenum. The bowel gas pattern is unremarkable Impression: Enteric tube tip projected beyond the stomach, at the level of the second portion of the duodenum.
--- NOTE | 2018-05-21 15:54 | General Progress Note ---
Assessment/Plan Assessment/Plan S, O: Intubated, PICC line in place, patient awake, not following commands. limited exam PHYSICAL EXAMINATION: HEAD AND NECK: Atraumatic and normocephalic. CHEST: Diffuse bronchial breathing sounds. Overall decreased breathing sounds. ABDOMEN: Grossly morbidly obese. Limited evaluation. MUSCULOSKELETAL: Positive for ulcers and wounds, more diffusely edematous about 2+, superficial wounds on both legs , dressed . NEUROLOGIC: The patient is sedated and intubated. limited exam, Upper arms in soft restraint Meds: Reviewed and reconciled. Including Dopamine gtt Renal Us : reviewed ASSESSMENT: 1.Vent Dependent Respiratory failure 2. shock, ddx: septic vs cardiogenic 3. CHF exacerbation, right sided, preserved EF 3. Acute/Chronic Renal F 4. Abnormal Trop: NSTEMI vs Leakage 3. UTI/lower extremity infection Hypertension. 4. Diabetes type 2, controlled with A1c of 6.3. 5. Pain management. 6. PAH 7. 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 GI and DVT prophylaxis. PLAN OF CARE: Grave prognosis Off pressor, preserved BP Empirical abx, per ID Failed first attempt for weaning trial Will Followup with pulmonary for re-weaning trial I spoke with the Son. Subjective Allergies: Coded Allergies: ASPIRIN (Verified Allergy, Intermediate, Hives, 01/06/13) PENICILLINS (Verified Allergy, Intermediate, Hives, 01/06/13) Objective Last 24 Hour Vital Signs Date Time Temp Pulse Resp B/P (MAP) Pulse Ox O2 Delivery O2 Flow Rate FiO2 05/21/18 15:30 16 Mechanical Ventilator 45 05/21/18 15:15 16 Mechanical Ventilator 45 05/21/18 15:12 76 27 45 05/21/18 15:03 Mechanical Ventilator 45 05/21/18 15:00 16 Mechanical Ventilator 45 05/21/18 15:00 74 15 121/85 (97) 100 05/21/18 14:50 98.6 05/21/18 14:45 16 Mechanical Ventilator 45 05/21/18 14:20 24 Mechanical Ventilator 45 05/21/18 14:00 79 15 117/97 (104) 100 05/21/18 13:00 79 12 92/62 (72) 97 05/21/18 12:47 72 26 45 05/21/18 12:00 Mechanical Ventilator 05/21/18 12:00 77 05/21/18 12:00 45 05/21/18 12:00 98.2 81 19 105/88 (94) 97 05/21/18 11:50 80 24 45 05/21/18 11:00 82 19 118/100 (106) 98 05/21/18 10:12 83 27 45 05/21/18 10:00 86 14 112/92 (99) 98 05/21/18 09:30 130/96 05/21/18 09:00 93 17 130/96 (107) 98 05/21/18 08:44 45 05/21/18 08:40 81 22 45 05/21/18 08:40 100 05/21/18 08:15 45 05/21/18 08:00 45 05/21/18 08:00 Mechanical Ventilator 05/21/18 08:00 79 05/21/18 08:00 98.4 81 19 125/93 (104) 98 05/21/18 07:30 81 19 125/93 (104) 98 05/21/18 07:13 79 21 45 05/21/18 07:07 81 27 45 05/21/18 07:00 79 18 123/107 (112) 98 05/21/18 06:30 78 7 120/93 (102) 98 05/21/18 06:00 78 16 113/93 (100) 100 05/21/18 05:30 77 16 117/103 (108) 100 05/21/18 05:19 79 21 45 05/21/18 05:00 78 15 121/91 (101) 100 05/21/18 04:00 45 05/21/18 04:00 Mechanical Ventilator 05/21/18 04:00 75 05/21/18 04:00 98.0 78 20 111/82 (92) 100 05/21/18 03:55 78 21 111/92 (98) 100 05/21/18 03:30 79 18 71/27 (42) 98 05/21/18 03:25 76 18 45 05/21/18 03:00 74 19 117/79 (92) 97 05/21/18 02:30 77 17 103/79 (87) 98 05/21/18 02:00 71 19 118/93 (101) 100 05/21/18 01:25 70 18 45 05/21/18 01:00 74 18 118/84 (95) 99 05/21/18 00:30 75 17 127/87 (100) 99 05/21/18 00:00 98.4 74 18 114/77 (89) 100 05/21/18 00:00 45 05/21/18 00:00 74 05/21/18 00:00 Mechanical Ventilator 05/20/18 23:22 79 19 45 05/20/18 23:00 77 18 98 05/20/18 22:30 80 18 122/105 (111) 97 05/20/18 22:00 79 20 126/86 (99) 98 05/20/18 21:30 77 18 117/82 (94) 97 05/20/18 21:28 80 18 45 05/20/18 21:00 78 17 117/75 (89) 95 05/20/18 20:00 45 05/20/18 20:00 73 05/20/18 20:00 Mechanical Ventilator 05/20/18 20:00 98.8 78 20 127/95 (106) 97 05/20/18 19:30 76 21 120/75 (90) 98 05/20/18 19:18 79 18 45 05/20/18 19:00 77 20 116/85 (95) 96 05/20/18 18:02 127/68 05/20/18 18:00 78 20 125/91 (102) 100 05/20/18 17:31 84 21 45 05/20/18 17:00 79 21 128/78 (95) 100 05/20/18 16:00 82 21 125/80 (95) 100 05/20/18 16:00 Mechanical Ventilator 05/20/18 16:00 90 05/20/18 16:00 45 Intake and Output 05/20/18 05/21/18 19:00 07:00 Intake Total 840 ml 880 ml Output Total 320 ml 1160 ml Balance 520 ml -280 ml Free Water 300 ml 150 ml IV Total 220 ml Tube Feeding 540 ml 450 ml Other 60 ml Output Urine Total 320 ml 360 ml Stool Total 800 ml Laboratory Tests 05/20/18 16:20: Arterial Blood pH 7.318L, Arterial Blood Partial Pressure CO2 52.2H, Arterial Blood Partial Pressure O2 82.3, Arterial Blood HCO3 26.2H, Arterial Blood Oxygen Saturation 95.6, Arterial Blood Base Excess -0.6, Aditya Test Positive 05/21/18 06:00: White Blood Count 14.2H, Red Blood Count 4.66, Hemoglobin 11.6L, Hematocrit 39.1 , Mean Corpuscular Volume 84, Mean Corpuscular Hemoglobin 24.9L, Mean Corpuscular Hemoglobin Concent 29.7L, Red Cell Distribution Width 19.3H, Platelet Count 201, Mean Platelet Volume 9.6, Neutrophils (%) (Auto) , Lymphocytes (%) (Auto) , Monocytes (%) (Auto) , Eosinophils (%) (Auto) , Basophils (%) (Auto) , Differential Total Cells Counted 100, Neutrophils % ( Manual) 91H, Lymphocytes % (Manual) 4L, Monocytes % (Manual) 2, Eosinophils % ( Manual) 3, Basophils % (Manual) 0, Band Neutrophils 0, Platelet Estimate Adequate, Platelet Morphology Normal, Hypochromasia 2+, Anisocytosis 2+, Sodium Level 155H, Potassium Level 3.7, Chloride Level 118H, Carbon Dioxide Level 28, Anion Gap 9, Blood Urea Nitrogen 59H, Creatinine 1.8H, Estimat Glomerular Filtration Rate 34.3, Glucose Level 99, Calcium Level 9.0, Total Bilirubin 1.5H , Direct Bilirubin 1.2H, Aspartate Amino Transf (AST/SGOT) 39H, Alanine Aminotransferase (ALT/SGPT) 7L, Alkaline Phosphatase 240H, Total Protein 6.5, Albumin 2.2L, Globulin 4.3, Albumin/Globulin Ratio 0.5L 05/21/18 09:00: Arterial Blood pH 7.289L, Arterial Blood Partial Pressure CO2 54.3H, Arterial Blood Partial Pressure O2 94.0, Arterial Blood HCO3 25.5, Arterial Blood Oxygen Saturation 96.9, Arterial Blood Base Excess -1.9, Aditya Test Positive Height (Feet): 5 Height (Inches): 3.00 Weight (Pounds): 328 Margaret Mckinney MD May 21, 2018 15:54
--- NOTE | 2018-05-21 16:04 | NUR ---
NURSE NOTES: Turned and repositioned, kept clean ,dry and comfortable. Family at beside, will continue to monitor.
--- NOTE | 2018-05-21 16:39 | Infectious Diseases Prog Note ---
Assessment/Plan Problems: (1) Leukocytosis (leucocytosis) Assessment & Plan: rule out bacteremia, will send blood culture X2 , continue current antibiotics (2) Bilateral lower leg cellulitis Assessment & Plan: wound culture grew klibsella oxytoca, and Sphingomonas paucimobilis , continue doxycycline and aztreonam empirically with local wounds care . patient has refused MRI and CT of the legs to rule out deep abscess or osteomyelitis. await on bone scan of both legs once clinically stable . 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 (3) Nonhealing ulcer of left lower extremity Assessment & Plan: wound culture grew klebsiella oxytoca and Sphingomonas paucimobilis, now on aztreonam and doxycycline , continue local wound care and dressings change as per wound care service as per plastic surgery recommendations (4) CKD (chronic kidney disease) Assessment & Plan: avoid nephrotoxics , renally dosed antibiotics as per pharmacy (5) DM (diabetes mellitus) Assessment & Plan: recommend tight glycemic control to keep blood glucose between 100-140 (6) Acute encephalopathy Assessment & Plan: suspect metabolic with high ammonia level, continue lactulose , consult neurology if no improvement (7) Acute hypoxemic respiratory failure Assessment & Plan: due to the above , intubated on mechanical ventilation, pulmonary is following, on weaning trials Subjective ROS Limited/Unobtainable: Yes Allergies: Coded Allergies: ASPIRIN (Verified Allergy, Intermediate, Hives, 01/06/13) PENICILLINS (Verified Allergy, Intermediate, Hives, 01/06/13) Subjective she was still intubated on mechanical ventilation in ICU , awake and responsive , failed weaning trials , afebrile, has low UOP , not on pressor . retaining fluids Objective Vital Signs Last 24 Hour Vital Signs Date Time Temp Pulse Resp B/P (MAP) Pulse Ox O2 Delivery O2 Flow Rate FiO2 05/21/18 16:00 98.8 76 19 115/80 (92) 96 05/21/18 16:00 45 05/21/18 16:00 Mechanical Ventilator 05/21/18 16:00 16 Mechanical Ventilator 45 05/21/18 15:30 16 Mechanical Ventilator 45 05/21/18 15:15 16 Mechanical Ventilator 45 05/21/18 15:12 76 27 45 05/21/18 15:03 Mechanical Ventilator 45 05/21/18 15:00 16 Mechanical Ventilator 45 1/25/19 15:00 74 15 121/85 (97) 100 05/21/18 14:50 98.6 05/21/18 14:45 16 Mechanical Ventilator 45 05/21/18 14:20 24 Mechanical Ventilator 45 05/21/18 14:00 79 15 117/97 (104) 100 05/21/18 13:00 79 12 92/62 (72) 97 05/21/18 12:47 72 26 45 05/21/18 12:00 Mechanical Ventilator 05/21/18 12:00 77 05/21/18 12:00 45 05/21/18 12:00 98.2 81 19 105/88 (94) 97 05/21/18 11:50 80 24 45 05/21/18 11:00 82 19 118/100 (106) 98 05/21/18 10:12 83 27 45 05/21/18 10:00 86 14 112/92 (99) 98 05/21/18 09:30 130/96 05/21/18 09:00 93 17 130/96 (107) 98 05/21/18 08:44 45 05/21/18 08:40 81 22 45 05/21/18 08:40 100 05/21/18 08:15 45 05/21/18 08:00 45 05/21/18 08:00 Mechanical Ventilator 05/21/18 08:00 79 05/21/18 08:00 98.4 81 19 125/93 (104) 98 05/21/18 07:30 81 19 125/93 (104) 98 05/21/18 07:13 79 21 45 05/21/18 07:07 81 27 45 05/21/18 07:00 79 18 123/107 (112) 98 05/21/18 06:30 78 7 120/93 (102) 98 05/21/18 06:00 78 16 113/93 (100) 100 05/21/18 05:30 77 16 117/103 (108) 100 05/21/18 05:19 79 21 45 05/21/18 05:00 78 15 121/91 (101) 100 05/21/18 04:00 45 05/21/18 04:00 Mechanical Ventilator 05/21/18 04:00 75 05/21/18 04:00 98.0 78 20 111/82 (92) 100 05/21/18 03:55 78 21 111/92 (98) 100 05/21/18 03:30 79 18 71/27 (42) 98 05/21/18 03:25 76 18 45 05/21/18 03:00 74 19 117/79 (92) 97 05/21/18 02:30 77 17 103/79 (87) 98 05/21/18 02:00 71 19 118/93 (101) 100 05/21/18 01:25 70 18 45 05/21/18 01:00 74 18 118/84 (95) 99 05/21/18 00:30 75 17 127/87 (100) 99 05/21/18 00:00 98.4 74 18 114/77 (89) 100 05/21/18 00:00 45 05/21/18 00:00 74 05/21/18 00:00 Mechanical Ventilator 05/20/18 23:22 79 19 45 05/20/18 23:00 77 18 98 05/20/18 22:30 80 18 122/105 (111) 97 05/20/18 22:00 79 20 126/86 (99) 98 05/20/18 21:30 77 18 117/82 (94) 97 05/20/18 21:28 80 18 45 05/20/18 21:00 78 17 117/75 (89) 95 05/20/18 20:00 45 05/20/18 20:00 73 05/20/18 20:00 Mechanical Ventilator 05/20/18 20:00 98.8 78 20 127/95 (106) 97 05/20/18 19:30 76 21 120/75 (90) 98 05/20/18 19:18 79 18 45 05/20/18 19:00 77 20 116/85 (95) 96 05/20/18 18:02 127/68 05/20/18 18:00 78 20 125/91 (102) 100 05/20/18 17:31 84 21 45 05/20/18 17:00 79 21 128/78 (95) 100 Height (Feet): 5 Height (Inches): 3.00 Weight (Pounds): 328 General Appearance: WD/WN, no acute distress, other - edematous HEENT: normocephalic, atraumatic, anicteric, mucous membranes moist, PERRL Respiratory/Chest: chest wall non-tender, no respiratory distress, no accessory muscle use, decreased breath sounds, crackles/rales Cardiovascular: normal peripheral pulses, normal rate, regular rhythm, no gallop/murmur, no JVD Abdomen: normal bowel sounds, soft, non tender, no organomegaly, non distended , no mass, no scars Extremities: no cyanosis, no clubbing, other - edema of upper extremeties Skin: no rash, no lesions, ulcers Neurologic/Psychiatric: alert, responsive Laboratory Tests Test 05/21/18 06:00 05/21/18 09:00 White Blood Count 14.2 K/UL (4.8-10.8) H Red Blood Count 4.66 M/UL (4.20-5.40) Hemoglobin 11.6 G/DL (12.0-16.0) L Hematocrit 39.1 % (37.0-47.0) Mean Corpuscular Volume 84 FL (80-99) Mean Corpuscular Hemoglobin 24.9 PG (27.0-31.0) L Mean Corpuscular Hemoglobin Concent 29.7 G/DL (32.0-36.0) L Red Cell Distribution Width 19.3 % (11.6-14.8) H Platelet Count 201 K/UL (150-450) Mean Platelet Volume 9.6 FL (6.5-10.1) Neutrophils (%) (Auto) % (45.0-75.0) Lymphocytes (%) (Auto) % (20.0-45.0) Monocytes (%) (Auto) % (1.0-10.0) Eosinophils (%) (Auto) % (0.0-3.0) Basophils (%) (Auto) % (0.0-2.0) Differential Total Cells Counted 100 Neutrophils % (Manual) 91 % (45-75) H Lymphocytes % (Manual) 4 % (20-45) L Monocytes % (Manual) 2 % (1-10) Eosinophils % (Manual) 3 % (0-3) Basophils % (Manual) 0 % (0-2) Band Neutrophils 0 % (0-8) Platelet Estimate Adequate Platelet Morphology Normal Hypochromasia 2+ Anisocytosis 2+ Sodium Level 155 MMOL/L (136-145) H Potassium Level 3.7 MMOL/L (3.5-5.1) Chloride Level 118 MMOL/L (98-107) H Carbon Dioxide Level 28 MMOL/L (21-32) Anion Gap 9 mmol/L (5-15) Blood Urea Nitrogen 59 mg/dL (7-18) H Creatinine 1.8 MG/DL (0.55-1.30) H Estimat Glomerular Filtration Rate 34.3 mL/min (>60) Glucose Level 99 MG/DL (74-106) Calcium Level 9.0 MG/DL (8.5-10.1) Total Bilirubin 1.5 MG/DL (0.2-1.0) H Direct Bilirubin 1.2 MG/DL (0.0-0.3) H Aspartate Amino Transf (AST/SGOT) 39 U/L (15-37) H Alanine Aminotransferase (ALT/SGPT) 7 U/L (12-78) L Alkaline Phosphatase 240 U/L (46-116) H Total Protein 6.5 G/DL (6.4-8.2) Albumin 2.2 G/DL (3.4-5.0) L Globulin 4.3 g/dL Albumin/Globulin Ratio 0.5 (1.0-2.7) L Arterial Blood pH 7.289 (7.350-7.450) Arterial Blood Partial Pressure CO2 54.3 mmHg (35.0-45.0) H Arterial Blood Partial Pressure O2 94.0 mmHg (75.0-100.0) Arterial Blood HCO3 25.5 mmol/L (22.0-26.0) Arterial Blood Oxygen Saturation 96.9 % (95-100) Arterial Blood Base Excess -1.9 (-2-2) Aditya Test Positive Current Medications Medications (Trade) Dose Ordered Sig/Toya Route PRN Reason Start Time Stop Time Status Last Admin Dose Admin Allopurinol (Allopurinol) 300 mg DAILY NG 05/19/18 13:00 06/18/18 12:59 05/21/18 09:29 Ascorbic Acid (Vitamin C) 500 mg TWICE A DAY NG 05/18/18 09:00 06/15/18 17:59 05/21/18 09:31 Atorvastatin Calcium (Lipitor) 20 mg BEDTIME ORAL 05/17/18 21:00 06/13/18 20:59 05/20/18 20:52 Aztreonam 2 gm/ Dextrose 110 ml @ 220 mls/hr Q8HR@0000,0800,1600 IVPB 1/21/19 16:00 05/24/18 15:59 05/21/18 15:03 Chlorhexidine Gluconate (Romy-Hex 2%) 1 applic DAILY@2000 TOPIC 05/14/18 20:00 06/13/18 19:59 05/20/18 20:51 Clopidogrel Bisulfate (Plavix) 75 mg DAILY NG 05/18/18 09:00 06/14/18 08:59 05/21/18 09:28 Dextrose (Dextrose 50%) 25 ml Q30M PRN IV Hypoglycemia 05/13/18 21:00 06/11/18 16:59 Dextrose (Dextrose 50%) 50 ml Q30M PRN IV Hypoglycemia 05/13/18 21:00 06/11/18 16:59 Dopamine HCl/ Dextrose 250 ml @ 0 mls/hr Q24H IV 05/15/18 19:00 06/14/18 18:59 05/16/18 18:05 Doxycycline Hyclate 100 mg/ Dextrose 110 ml @ 110 mls/hr Q12HR IV 05/19/18 21:00 05/26/18 20:59 05/21/18 09:34 Fentanyl Citrate 1000 mcg/Sodium Chloride 100 ml @ 0 mls/hr Q24H IV 05/21/18 13:00 05/28/18 12:59 05/21/18 14:20 Insulin Aspart (NovoLOG) Q6HR SUBQ 05/18/18 13:00 06/11/18 12:59 05/20/18 05:04 Lactulose (Cephulac) 30 gm Q8HR NG 05/14/18 14:00 06/12/18 17:59 05/21/18 13:50 Midodrine (Pro-Amatine) 5 mg THREE TIMES A DAY NG 05/20/18 18:00 06/17/18 12:59 05/21/18 13:50 Multivitamins (Multivitamins) 1 tab DAILY ORAL 05/18/18 09:00 06/16/18 08:59 05/21/18 09:30 Nitroglycerin (Ntg) 1 patch Q24H TDERMAL 05/15/18 09:00 06/14/18 08:59 05/21/18 09:30 Pantoprazole (Protonix) 40 mg EVERY 12 HOURS IVP 05/14/18 21:00 06/13/18 20:59 05/21/18 09:31 Povidone Iodine (Betadine Gretchen) 1 applic BID TOPIC 05/16/18 09:00 06/15/18 08:59 05/21/18 09:00 Rifaximin (Xifaxan) 550 mg EVERY 12 HOURS NG 05/18/18 09:00 05/27/18 23:59 05/21/18 09:00 Sodium Chloride 500 ml @ 999 mls/hr Q31M PRN IV For hypotension 05/14/18 01:30 06/13/18 01:29 05/14/18 06:10 Juice Wilkerson M.D. May 21, 2018 16:39
[2018-05-21] MEDS ORDERED: NS 275ml ONE (16:51)
[2018-05-21] MEDS ORDERED: Tubing IV Secondary IV ONE (16:51)
--- NOTE | 2018-05-21 17:06 | NUR ---
Pt failed weaning today twice. Unable to maintain adequate volumes and abg results showed hypercapnea. Pt remains on AC with tube secure and in place. Alarms are on and audible. Will continue to wean daily. Addendum: 05/21/18 at 1708 by LING RIVERO RT Amended: Links added.
--- NOTE | 2018-05-21 17:48 | Cardiology Progress Note ---
Assessment/Plan Assessment/Plan 1. Dyspnea most likely secondary to acute hypoxic hypercarbic respiratory failure. 2D echocardiography shows normal LV systolic function with a normal left atrial pressure, however e/o right heart failure. 2. Right heart failure, pre-load sensitive, avoid aggressive diuretic use, evidence of RA and RV dilatation and severe RV systolic dysfunction, associated pulmonary HTN, ? type. 3. Paroxysmal atrial fibrillation, currently sinus rhythm. 4. Hypotension likely due to RV failure, resolved, on midodrine, grim prognosis. 5. Slight elevation of troponin I level in this patient could be due to RV strain/failure or due to type 2 non-ST elevation myocardial infarction. Subjective Subjective Sinus rhythm at rate of 73. Intubated on FiO2 of 45%. Objective Last 24 Hour Vital Signs Date Time Temp Pulse Resp B/P (MAP) Pulse Ox O2 Delivery O2 Flow Rate FiO2 05/21/18 17:04 73 18 45 05/21/18 16:00 98.8 76 19 115/80 (92) 96 05/21/18 16:00 45 05/21/18 16:00 75 05/21/18 16:00 Mechanical Ventilator 05/21/18 16:00 16 Mechanical Ventilator 45 05/21/18 15:30 16 Mechanical Ventilator 45 05/21/18 15:15 16 Mechanical Ventilator 45 05/21/18 15:12 76 27 45 05/21/18 15:03 Mechanical Ventilator 45 05/21/18 15:00 16 Mechanical Ventilator 45 05/21/18 15:00 74 15 121/85 (97) 100 05/21/18 14:50 98.6 05/21/18 14:45 16 Mechanical Ventilator 45 05/21/18 14:20 24 Mechanical Ventilator 45 05/21/18 14:00 79 15 117/97 (104) 100 05/21/18 13:00 79 12 92/62 (72) 97 05/21/18 12:47 72 26 45 05/21/18 12:00 Mechanical Ventilator 05/21/18 12:00 77 05/21/18 12:00 45 05/21/18 12:00 98.2 81 19 105/88 (94) 97 05/21/18 11:50 80 24 45 05/21/18 11:00 82 19 118/100 (106) 98 05/21/18 10:12 83 27 45 1/25/19 10:00 86 14 112/92 (99) 98 05/21/18 09:30 130/96 05/21/18 09:00 93 17 130/96 (107) 98 05/21/18 08:44 45 05/21/18 08:40 81 22 45 05/21/18 08:40 100 05/21/18 08:15 45 05/21/18 08:00 45 05/21/18 08:00 Mechanical Ventilator 05/21/18 08:00 79 05/21/18 08:00 98.4 81 19 125/93 (104) 98 05/21/18 07:30 81 19 125/93 (104) 98 05/21/18 07:13 79 21 45 05/21/18 07:07 81 27 45 05/21/18 07:00 79 18 123/107 (112) 98 05/21/18 06:30 78 7 120/93 (102) 98 05/21/18 06:00 78 16 113/93 (100) 100 05/21/18 05:30 77 16 117/103 (108) 100 05/21/18 05:19 79 21 45 05/21/18 05:00 78 15 121/91 (101) 100 05/21/18 04:00 45 05/21/18 04:00 Mechanical Ventilator 05/21/18 04:00 75 05/21/18 04:00 98.0 78 20 111/82 (92) 100 05/21/18 03:55 78 21 111/92 (98) 100 05/21/18 03:30 79 18 71/27 (42) 98 05/21/18 03:25 76 18 45 05/21/18 03:00 74 19 117/79 (92) 97 05/21/18 02:30 77 17 103/79 (87) 98 05/21/18 02:00 71 19 118/93 (101) 100 05/21/18 01:25 70 18 45 05/21/18 01:00 74 18 118/84 (95) 99 05/21/18 00:30 75 17 127/87 (100) 99 05/21/18 00:00 98.4 74 18 114/77 (89) 100 05/21/18 00:00 45 05/21/18 00:00 74 05/21/18 00:00 Mechanical Ventilator 05/20/18 23:22 79 19 45 05/20/18 23:00 77 18 98 05/20/18 22:30 80 18 122/105 (111) 97 05/20/18 22:00 79 20 126/86 (99) 98 05/20/18 21:30 77 18 117/82 (94) 97 05/20/18 21:28 80 18 45 05/20/18 21:00 78 17 117/75 (89) 95 05/20/18 20:00 45 05/20/18 20:00 73 05/20/18 20:00 Mechanical Ventilator 05/20/18 20:00 98.8 78 20 127/95 (106) 97 05/20/18 19:30 76 21 120/75 (90) 98 05/20/18 19:18 79 18 45 05/20/18 19:00 77 20 116/85 (95) 96 05/20/18 18:02 127/68 05/20/18 18:00 78 20 125/91 (102) 100 Intake and Output 05/20/18 05/21/18 19:00 07:00 Intake Total 840 ml 880 ml Output Total 320 ml 1160 ml Balance 520 ml -280 ml Free Water 300 ml 150 ml IV Total 220 ml Tube Feeding 540 ml 450 ml Other 60 ml Output Urine Total 320 ml 360 ml Stool Total 800 ml 2D Echo: LVEF 55%, D-shaped septum due to RV pressure overload, Massive RA/RV size. Laboratory Tests Test 05/21/18 06:00 05/21/18 09:00 White Blood Count 14.2 K/UL (4.8-10.8) H Red Blood Count 4.66 M/UL (4.20-5.40) Hemoglobin 11.6 G/DL (12.0-16.0) L Hematocrit 39.1 % (37.0-47.0) Mean Corpuscular Volume 84 FL (80-99) Mean Corpuscular Hemoglobin 24.9 PG (27.0-31.0) L Mean Corpuscular Hemoglobin Concent 29.7 G/DL (32.0-36.0) L Red Cell Distribution Width 19.3 % (11.6-14.8) H Platelet Count 201 K/UL (150-450) Mean Platelet Volume 9.6 FL (6.5-10.1) Neutrophils (%) (Auto) % (45.0-75.0) Lymphocytes (%) (Auto) % (20.0-45.0) Monocytes (%) (Auto) % (1.0-10.0) Eosinophils (%) (Auto) % (0.0-3.0) Basophils (%) (Auto) % (0.0-2.0) Differential Total Cells Counted 100 Neutrophils % (Manual) 91 % (45-75) H Lymphocytes % (Manual) 4 % (20-45) L Monocytes % (Manual) 2 % (1-10) Eosinophils % (Manual) 3 % (0-3) Basophils % (Manual) 0 % (0-2) Band Neutrophils 0 % (0-8) Platelet Estimate Adequate Platelet Morphology Normal Hypochromasia 2+ Anisocytosis 2+ Sodium Level 155 MMOL/L (136-145) H Potassium Level 3.7 MMOL/L (3.5-5.1) Chloride Level 118 MMOL/L (98-107) H Carbon Dioxide Level 28 MMOL/L (21-32) Anion Gap 9 mmol/L (5-15) Blood Urea Nitrogen 59 mg/dL (7-18) H Creatinine 1.8 MG/DL (0.55-1.30) H Estimat Glomerular Filtration Rate 34.3 mL/min (>60) Glucose Level 99 MG/DL (74-106) Calcium Level 9.0 MG/DL (8.5-10.1) Total Bilirubin 1.5 MG/DL (0.2-1.0) H Direct Bilirubin 1.2 MG/DL (0.0-0.3) H Aspartate Amino Transf (AST/SGOT) 39 U/L (15-37) H Alanine Aminotransferase (ALT/SGPT) 7 U/L (12-78) L Alkaline Phosphatase 240 U/L (46-116) H Total Protein 6.5 G/DL (6.4-8.2) Albumin 2.2 G/DL (3.4-5.0) L Globulin 4.3 g/dL Albumin/Globulin Ratio 0.5 (1.0-2.7) L Arterial Blood pH 7.289 (7.350-7.450) Arterial Blood Partial Pressure CO2 54.3 mmHg (35.0-45.0) H Arterial Blood Partial Pressure O2 94.0 mmHg (75.0-100.0) Arterial Blood HCO3 25.5 mmol/L (22.0-26.0) Arterial Blood Oxygen Saturation 96.9 % (95-100) Arterial Blood Base Excess -1.9 (-2-2) Aditya Test Positive Objective HEENT: Atraumatic and normocephalic. Anicteric. Pupils are equal, round, and reactive to light and accommodation. Extraocular muscles intact. NECK: Cannot be assessed due to positive inspiratory pressure. No carotid bruit. Carotid upstroke is 2+ bilaterally. CVS: Normal S1 and S2. Regular rate and rhythm. RV heave, No murmurs, gallops , or rubs. LUNGS: Diminished breath sounds in both lungs with rhonchi bilaterally. ABDOMEN: Soft, nontender, and nondistended. No hepatosplenomegaly. Positive bowel sounds. EXTREMITIES: No evidence of edema, clubbing, or cyanosis. There is venous stasis of lower extremities with associated ulceration. Justice Erickson MD May 21, 2018 17:48
--- NOTE | 2018-05-21 18:02 | NUR ---
NURSE NOTES: Pt turned and repositioned.ADls done, mouth care provided.Kept clean dry and uncomfortable.
[2018-05-21] MEDS: DOPamine 400mg/250ml 250 ML IV SCH (19:00)
--- NOTE | 2018-05-21 19:23 | NUR ---
HAND-OFF: Report given to LUCIO TORIBIO.
--- NOTE | 2018-05-21 19:30 | NUR ---
NURSE NOTES: Received report from Hailey VALDES. Patient in bed resting SR with on the monitor HR 60. BP 87/53 Hailey RN will give bolus. Patient is intubated 7.5/24 cm lipline AC 18 VT 550 FiO2 45% and peep of 5. No s/s of cardiac and acute distress noted. OGT intact no residual. Large, round, non-tender abdomen. Hyperactive sound present on all 4 quadrants. Patient has rectal tube and Anaya, intact draining. Bilateral lower leg ulcer. L upper arm PICC line patient flushing. Patient receiving Fentanyl drips 25mcg/hr Rass score -2. HOB elevated. bed locked and in lowest position. bed alarm on, bilateral soft wrist restraint checked. Will continue plan of care.
[2018-05-21] MEDS: Dyna-Hex 2% Top Sol 2oz TOPIC SCH (21:00)
[2018-05-21] MEDS: Atorvastatin 20mg tab ORAL SCH (21:06)
--- NOTE | 2018-05-21 21:30 | NUR ---
NURSE NOTES: Patient RASS Score -2 light sedation. On Fentanyl drip at 25mcg/hr. Repositioned. No s/s of acute distress. Will continue plan of care.
--- NOTE | 2018-05-21 23:30 | NUR ---
NURSE NOTES: Patient blood glucose 94mg/dl no coverage. OGT intact on Glucerna 1.5 at 45cc/hr. HOB elevated. patient easily arousable to verbal and tactile stimuli. Repositioned. Will continue plan of care.
[2018-05-22] VITALS (35 sets, daily range): BP systolic 94–128; BP diastolic 56–102
--- NOTE | 2018-05-22 01:30 | NUR ---
NURSE NOTES: Continue on Fentanyl drip at 25mcg/hr RASS score -2. Comfort measure provided. Repositioned. treatment done on bilateral legs ulcer. Oral care provided. Suctioned as needed.
--- NOTE | 2018-05-22 03:30 | NUR ---
NURSE NOTES: Bed bath given tolerated well. Repositioned. Oral care provided. Rass score -2, continue on Fentanyl drip at 25mcg/hr. Checked bilateral wrist restraint every 2 hours. Will continue plan of care.
--- NOTE | 2018-05-22 05:00 | NUR ---
NURSE NOTES: Fentanyl drip Titrated off. Held feeding tube possible extubation today. patient no s/s of acute distress noted.
[2018-05-22 05:39] LABS: BASOPHILS % (AUTO) 2.8 % (0.0-2.0); EOSINOPHILS % (AUTO) 1.6 % (0.0-3.0); HEMATOCRIT 41.1 % (37.0-47.0); MEAN CORPUSCULAR VOLUME 85 FL (80-99); MONOCYTES % (AUTO) 7.1 % (1.0-10.0); NEUTROPHILS % (AUTO) 83.5 % (45.0-75.0); PLATELET COUNT 229 K/UL (150-450); RED BLOOD COUNT 4.85 M/UL (4.20-5.40); RED CELL DISTRIBUTION WIDTH 19.4 % (11.6-14.8); WHITE BLOOD COUNT 13.5 K/UL (4.8-10.8)
[2018-05-22 05:40] LABS: ANION GAP 9 mmol/L (5-15); BLOOD UREA NITROGEN 54 mg/dL (7-18); CALCIUM 9.2 MG/DL (8.5-10.1); CARBON DIOXIDE 26 MMOL/L (21-32); CHLORIDE 117 MMOL/L (98-107); CREATININE 1.6 MG/DL (0.55-1.30); POTASSIUM 3.5 MMOL/L (3.5-5.1); SODIUM 152 MMOL/L (136-145)
[2018-05-22] MEDS: NovoLOG Insulin Flexpen SUBQ SCH ×4 (05:41→17:36)
[2018-05-22 05:51] LABS: ALANINE AMINOTRANSFERASE 8 U/L (12-78); ALBUMIN 2.1 G/DL (3.4-5.0); ALKALINE PHOSPHATASE 239 U/L (46-116); ASPARTATE AMINO TRANSFERASE 40 U/L (15-37); BILIRUBIN,TOTAL 1.3 MG/DL (0.2-1.0); PHOSPHORUS 2.6 MG/DL (2.5-4.9)
[2018-05-22] MEDS: Lactulose 10gm/15ml UDC NG SCH ×3 (05:53→22:09)
--- NOTE | 2018-05-22 07:05 | NUR ---
HAND-OFF: Report given to LUCIO Hart.
--- NOTE | 2018-05-22 07:25 | NUR ---
RESPIRATORY NOTE: Received pt orally intubated with ETT 7.5@ 24cm lips line, secured by anchor fast with current settings: AC 18-550ml-40% FiO2 peep of 6, saturates at 100%. Vinod rhonchi breath sounds present upon auscultation, sxn moderate amount of red brown secretions without incident. Placed pt on CPAP PS 10- peep of 6- 40% FiO2 per weaning order @ 0720,pt is tolerating well, RN Hailey made aware. No acute resp distress noted. Alarms are set and audible, vent is plugged into the red outlet, ambu bag is at bedside. Will continue to monitor pt closely.
--- NOTE | 2018-05-22 07:36 | NUR ---
NURSE NOTES: Report received from LUCIO Singh
--- NOTE | 2018-05-22 08:00 | NUR ---
NURSE NOTES: Asleep when received,weaning start with CPAP PS 10 and tolerate well. ETT in place 7.5 lip line with AC 18 Vt 550, 45% FiO2, PEEP 5. Bilaterals soft wrist restraints with no apparent skin impairment.GT feeding on hold for weaning. Placement check and intact.Keep HOB elevated at 35 degree to prevent aspiration.Left upper arm double lumen PICC line intact with dressing dry and intact. Rectal tube in place draining brown liquid stool.Anaya catheter in place draining yellowish urine with low output, no apparent sediments. Still noted with bilateral upper extremities + 2 pitting edema.Bilateral lower extremities dressings clean dry and intact. Pt turned and repositioned. HOB elevated to prevent aspiration.Kept clean dry and comfortable.
[2018-05-22] MEDS: Pantoprazole Inj IVP SCH ×2 (08:46→20:50)
[2018-05-22] MEDS: Nitroglycerin Patch 0.4mg TDERMAL SCH (08:46)
[2018-05-22] MEDS: AZTREONAM IVPB SCH ×6 (08:47→15:56)
[2018-05-22] MEDS: [UNRECOGNIZED DRUG - OTHER] IVPB SCH ×6 (08:47→15:56)
[2018-05-22] MEDS: Ascorbic Acid 500mg tab NG SCH ×2 (08:47→17:36)
[2018-05-22] MEDS: Betadine 4oz Bottle TOPIC SCH ×2 (08:48→17:36)
[2018-05-22] MEDS: Doxycycline Hyclate 100 MG in D5W 110 ML IV SCH ×2 (08:48→21:00)
--- NOTE | 2018-05-22 09:07 | NUR ---
RESPIRATORY NOTE: Patient is tolerating really well the weaning setting CPAP PS 10, decrease PS to 8, pt still tolerating well. No SOB or acute resp distress noted. LUCIO Hart is at bedside. Will continue to monitor pt closely.
--- NOTE | 2018-05-22 09:10 | NUR ---
NURSE NOTES: Pt remains on CPAP with PS decrease to 8 , tolerate well.Breathing exercises teaching provided and tolerated well.Will continue to monitor. ABG times at 1000.
--- NOTE | 2018-05-22 09:39 | NUR ---
NURSE NOTES: Seen by Dr Paul, will follow up with new orders
--- NOTE | 2018-05-22 10:20 | Diagnostic Imaging Report ---
EXAM: XR Chest, 1 View CLINICAL HISTORY: COUGH TECHNIQUE: Frontal view of the chest. COMPARISON: Chest x-ray 05/21/18 810 FINDINGS: Lungs: Worsening bilateral airspace opacities and small right pleural effusion. Pleural space: See above. No pneumothorax. Heart: Cardiomegaly. Mediastinum: Unremarkable. Bones/joints: Unremarkable. Tubes, lines and devices: Interval placement of NG tube traverses the diaphragm, tip is not seen. Stable endotracheal tube. Stable left PICC line. IMPRESSION: 1. Interval placement of NG tube traverses the diaphragm, tip is not seen. 2. Worsening bilateral airspace opacities and small right pleural effusion. Likely CHF.
--- NOTE | 2018-05-22 10:32 | NUR ---
NURSE NOTES: Pt ABG done and O2 92.2%, placed back on SIMV 8/8 and FiO2 50%. Relayed result to Dr Ritchie, no new order. Will keep pt on close monitoring.Turned and repositioned for skin management.Kept clean and dry.
--- NOTE | 2018-05-22 10:45 | NUR ---
RD ASSESSMENT & RECOMMENDATIONS SEE CARE ACTIVITY FOR COMPLETE ASSESSMENT DAILY ESTIMATED NEEDS: Needs based on Critical care, wounds, DM, morbid obesity (71.5kg abw) 20-25 kcals/kg 0892-7822 total kcals 1.25-2 g protein/kg 89-143 g total protein Fluid per MD. mL/kg total fluid mLs NUTRITION DIAGNOSIS: 1) Increased protein needs r/t wound healing as evidenced by pt w/ chronic LLE ulcers. 2) Morbid obesity R/T excessive energy intake as evidenced by BMI>50 per guidelines. 3) Swallowing difficulty r/t respiratory status as evidenced by pt now orally intubated, on OGT feeding CURRENT TF:Glucerna 1.5 @ 45ml/hr x 24 hrs PO DIET RECOMMENDATIONS: CERTIFIED LACTATION COUNSELOR eval s/p extubation-> CCHO LOW, CARDIAC/ texture per CERTIFIED LACTATION COUNSELOR ENTERAL NUTRITION RECOMMENDATIONS: Glucerna 1.5 @45ml /hr x24 hrs + Prosource q daily to provide 1080ml, 1620 kcal, 89g +11g prot, 820ml free H2O - Add PROSOURCE 1 pack daily to better meet est prot needs - Flush per MD/ HOB over 30 degrees ADDITIONAL RECOMMENDATIONS: 1) RE-calibrate bed scale (wts per EMR: 200#, 316#, 341#) 2) Wound care: add NELY BID 3) Monitor lytes, replete as needed 4) CERTIFIED LACTATION COUNSELOR eval post extubation for appropriate texture . . .
--- NOTE | 2018-05-22 10:53 | NUR ---
RESPIRATORY NOTE: ABG drawn at 1008, result reported to RN Hailey and in the system. Increased FiO2 to 50% due to ABG result. Pt awake and alert. Changed setting to SIMV 8- PS 8- 50% FiO2- peep of 6 per RN requested. pt is tolerating well, no acute resp distress note. Awaiting for MD's order. Will continue to monitor pt in the meantime.
--- NOTE | 2018-05-22 11:09 | Nephrology Progress Note ---
Assessment/Plan Problem List: (1) ARF (acute renal failure) (2) Cellulitis of both lower extremities (3) Venous stasis ulcers of both lower extremities (4) DM (diabetes mellitus) (5) CKD (chronic kidney disease) (6) Morbid (severe) obesity due to excess calories (7) Acute hypoxemic respiratory failure Assessment Diabetic Nephropathy acute renal failure super imposed on CKD Encephalopathy, CO2 retainer, respiratory failure acute Obesity High Trop High Bili UTI Bilateral LE cellulitis Anemia Plan D5W 500 cc H2O NGT on weaning trial 24 h urine crcl 29 cc 24 h protein 0.6 gr midodrine increase dose DC IV fluids pulmonary support / Mechanical ventilation Anaya pressors as needed OG feeding Avoid nephrotoxics monitor renal parameters 2D echo Ej Fx 55% kidney WESLEY no pathology reported Per ID , Pulm... meds IV or OG tube Avoid mind altering meds per orders Subjective ROS Limited/Unobtainable: Yes Objective Objective Last 24 Hour Vital Signs Date Time Temp Pulse Resp B/P (MAP) Pulse Ox O2 Delivery O2 Flow Rate FiO2 05/22/18 10:53 80 22 50 05/22/18 10:00 81 12 111/77 (88) 100 05/22/18 09:07 83 24 40 05/22/18 09:07 97 05/22/18 09:00 80 13 116/86 (96) 98 05/22/18 08:46 115/94 05/22/18 08:00 45 05/22/18 08:00 Mechanical Ventilator 05/22/18 08:00 76 05/22/18 08:00 98.0 81 23 115/94 (101) 99 05/22/18 07:23 79 27 40 05/22/18 07:19 71 19 40 05/22/18 07:00 71 14 110/84 (93) 97 05/22/18 06:30 68 18 109/89 (96) 98 05/22/18 06:00 63 18 119/89 (99) 94 05/22/18 05:30 66 18 107/78 (88) 97 05/22/18 05:15 72 19 40 05/22/18 05:00 69 18 109/82 (91) 99 05/22/18 04:30 72 18 105/80 (88) 100 05/22/18 04:00 Mechanical Ventilator 05/22/18 04:00 97.9 80 20 109/86 (94) 90 05/22/18 04:00 18 Endotracheal Tube 45 05/22/18 04:00 70 05/22/18 04:00 45 05/22/18 03:30 67 18 97/71 (80) 100 05/22/18 03:26 64 18 40 05/22/18 03:00 18 Endotracheal Tube 45 05/22/18 03:00 65 18 108/82 (91) 100 05/22/18 02:30 63 18 109/77 (88) 100 05/22/18 02:00 65 18 104/65 (78) 99 05/22/18 02:00 18 Endotracheal Tube 45 05/22/18 01:36 68 14 103/75 (84) 100 05/22/18 01:22 68 18 40 05/22/18 01:00 66 14 102/68 (79) 99 05/22/18 01:00 14 Endotracheal Tube 45 05/22/18 00:30 66 14 94/71 (79) 100 05/22/18 00:00 98.0 76 14 98/73 (81) 99 05/22/18 00:00 Mechanical Ventilator 05/22/18 00:00 14 Endotracheal Tube 45 05/21/18 23:30 65 14 99 05/21/18 23:00 66 14 101/72 (82) 99 05/21/18 23:00 14 Endotracheal Tube 45 05/21/18 23:00 66 18 40 05/21/18 22:30 67 14 104/77 (86) 98 05/21/18 22:06 58 0 95/61 (72) 99 05/21/18 22:00 62 14 88/58 (68) 99 05/21/18 22:00 14 Endotracheal Tube 45 05/21/18 21:30 67 14 92/65 (74) 99 05/21/18 21:30 67 14 92/65 (74) 99 05/21/18 21:16 63 18 40 05/21/18 21:00 61 14 97/61 (73) 98 05/21/18 21:00 14 Endotracheal Tube 45 05/21/18 20:30 63 9 101/77 (85) 98 05/21/18 20:00 Mechanical Ventilator 05/21/18 20:00 98.0 59 14 93/65 (74) 99 05/21/18 20:00 14 Endotracheal Tube 45 05/21/18 20:00 60 05/21/18 20:00 45 05/21/18 19:30 60 14 94/64 (74) 98 05/21/18 19:00 14 Endotracheal Tube 45 05/21/18 19:00 94/64 05/21/18 19:00 60 14 87/53 (64) 98 05/21/18 18:55 60 18 40 05/21/18 18:00 16 Mechanical Ventilator 45 05/21/18 18:00 78 14 106/69 (81) 99 05/21/18 17:04 73 18 45 05/21/18 17:00 79 18 113/73 (86) 98 05/21/18 17:00 16 Mechanical Ventilator 45 05/21/18 16:00 98.8 76 19 115/80 (92) 96 05/21/18 16:00 45 05/21/18 16:00 75 05/21/18 16:00 Mechanical Ventilator 05/21/18 16:00 16 Mechanical Ventilator 45 05/21/18 15:30 16 Mechanical Ventilator 45 05/21/18 15:15 16 Mechanical Ventilator 45 05/21/18 15:12 76 27 45 05/21/18 15:03 Mechanical Ventilator 45 05/21/18 15:00 16 Mechanical Ventilator 45 05/21/18 15:00 74 15 121/85 (97) 100 05/21/18 14:50 98.6 05/21/18 14:45 16 Mechanical Ventilator 45 05/21/18 14:20 24 Mechanical Ventilator 45 05/21/18 14:00 79 15 117/97 (104) 100 05/21/18 13:00 79 12 92/62 (72) 97 05/21/18 12:47 72 26 45 05/21/18 12:00 Mechanical Ventilator 05/21/18 12:00 77 05/21/18 12:00 45 05/21/18 12:00 98.2 81 19 105/88 (94) 97 05/21/18 11:50 80 24 45 Intake and Output 05/21/18 05/22/18 18:59 06:59 Intake Total 1159.156 ml 1295.0 ml Output Total 1370 ml 1595 ml Balance -210.844 ml -300.0 ml Free Water 300 ml 200 ml IV Total 859.156 ml 525.0 ml Tube Feeding 405 ml Other 165 ml Output Urine Total 370 ml 395 ml Stool Total 1000 ml 1200 ml Laboratory Tests 05/22/18 04:00: White Blood Count 13.5H, Red Blood Count 4.85, Hemoglobin 12.0, Hematocrit 41.1 , Mean Corpuscular Volume 85, Mean Corpuscular Hemoglobin 24.8L, Mean Corpuscular Hemoglobin Concent 29.3L, Red Cell Distribution Width 19.4H, Platelet Count 229, Mean Platelet Volume 9.8, Neutrophils (%) (Auto) 83.5H, Lymphocytes (%) (Auto) 5.0L, Monocytes (%) (Auto) 7.1, Eosinophils (%) (Auto) 1.6, Basophils (%) (Auto) 2.8H, Sodium Level 152H, Potassium Level 3.5, Chloride Level 117H, Carbon Dioxide Level 26, Anion Gap 9, Blood Urea Nitrogen 54H, Creatinine 1.6H, Estimat Glomerular Filtration Rate 39.3, Glucose Level 105 , Calcium Level 9.2, Phosphorus Level 2.6, Magnesium Level 2.2, Total Bilirubin 1.3H, Direct Bilirubin 1.0H, Aspartate Amino Transf (AST/SGOT) 40H, Alanine Aminotransferase (ALT/SGPT) 8L, Alkaline Phosphatase 239H, Total Protein 6.3L, Albumin 2.1L 05/22/18 06:00: Ammonia 26 05/22/18 10:08: Arterial Blood pH 7.300L, Arterial Blood Partial Pressure CO2 55.0H, Arterial Blood Partial Pressure O2 60.2L, Arterial Blood HCO3 26.5H, Arterial Blood Oxygen Saturation 92.2L, Arterial Blood Base Excess -0.8, Aditya Test Positive Height (Feet): 5 Height (Inches): 3.00 Weight (Pounds): 322 EENT: other - on vent Cardiovascular: normal rate Respiratory/Chest: decreased breath sounds Abdomen: distended Objective no change Tr Strange MD May 22, 2018 11:09
--- NOTE | 2018-05-22 12:07 | NUR ---
NURSE NOTES: Mouth care done.Turned and repositioned.Fentanyl drip restarted due to pt increase restlessness and kept on SIMV per Dr Ritchie. Will repeat ABG in few hours.
[2018-05-22] MEDS: fentaNYL Citrate 1000 MCG in NS 100ml IV SCH ×2 (12:41→18:09)
--- NOTE | 2018-05-22 13:53 | NUR ---
NURSE NOTES: Seen by Dr Wilkerson, will follow up with new orders.Family at bedside.
--- NOTE | 2018-05-22 14:08 | General Progress Note ---
Assessment/Plan Problem List: (1) Leukocytosis (leucocytosis) ICD Codes: D72.829 - Elevated white blood cell count, unspecified SNOMED: 220610327, 394577503 (2) Elevated transaminase level ICD Codes: R74.0 - Nonspecific elevation of levels of transaminase and lactic acid dehydrogenase [LDH] SNOMED: 472038056 (3) HTN (hypertension) ICD Codes: I10 - HTN (hypertension) SNOMED: 24606409 (4) COPD (chronic obstructive pulmonary disease) ICD Codes: J44.9 - Chronic obstructive pulmonary disease, unspecified SNOMED: 40035455 (5) DM (diabetes mellitus) ICD Codes: E11.9 - DM (diabetes mellitus) SNOMED: 66526122 Assessment/Plan OB stool negative x2 hepatitis panel negative abdominal US reviewed >> - Ascites - Borderline hepatomegaly - Thick-walled gallbladder, likely in part artifact of nondistention, and in part due to hemodynamic factors causing the ascites. No definite gallstones. Acute cholecystitis not completely excludable, due to the wall thickening, and hepatobiliary scan should be considered if there is high clinical suspicion for such. - Negative for dilated ducts - To and fro flow within the main portal vein, could indicate portal hypertension HIDA and paracentesis when respiratory status stabilizes TF trial, tolerating cont lactulose Xifaxan Wean off of sedatives and narcotics monitor H&H, prn transfusions rectal tube bowel regime ppi fu labs will consider endoscopy pending work up, but will require cardiac clearance given elevated troponin levels Subjective ROS Limited/Unobtainable: No Allergies: Coded Allergies: ASPIRIN (Verified Allergy, Intermediate, Hives, 01/06/13) PENICILLINS (Verified Allergy, Intermediate, Hives, 01/06/13) Objective Last 24 Hour Vital Signs Date Time Temp Pulse Resp B/P (MAP) Pulse Ox O2 Delivery O2 Flow Rate FiO2 05/22/18 13:00 18 Mechanical Ventilator 50 05/22/18 13:00 79 16 113/82 (92) 98 05/22/18 12:41 14 Mechanical Ventilator 50 05/22/18 12:09 98.4 88 23 128/102 (111) 99 05/22/18 12:00 88 05/22/18 12:00 50 05/22/18 12:00 Mechanical Ventilator 05/22/18 12:00 21 Mechanical Ventilator 50 05/22/18 11:00 84 12 117/91 (100) 98 05/22/18 10:53 80 22 50 05/22/18 10:00 81 12 111/77 (88) 100 05/22/18 09:07 83 24 40 05/22/18 09:07 97 05/22/18 09:00 80 13 116/86 (96) 98 05/22/18 08:46 115/94 05/22/18 08:00 45 05/22/18 08:00 Mechanical Ventilator 05/22/18 08:00 76 05/22/18 08:00 98.0 81 23 115/94 (101) 99 05/22/18 07:23 79 27 40 05/22/18 07:19 71 19 40 05/22/18 07:00 71 14 110/84 (93) 97 05/22/18 06:30 68 18 109/89 (96) 98 05/22/18 06:00 63 18 119/89 (99) 94 05/22/18 05:30 66 18 107/78 (88) 97 05/22/18 05:15 72 19 40 05/22/18 05:00 69 18 109/82 (91) 99 05/22/18 04:30 72 18 105/80 (88) 100 05/22/18 04:00 Mechanical Ventilator 05/22/18 04:00 97.9 80 20 109/86 (94) 90 05/22/18 04:00 18 Endotracheal Tube 45 05/22/18 04:00 70 05/22/18 04:00 45 05/22/18 03:30 67 18 97/71 (80) 100 05/22/18 03:26 64 18 40 05/22/18 03:00 18 Endotracheal Tube 45 05/22/18 03:00 65 18 108/82 (91) 100 05/22/18 02:30 63 18 109/77 (88) 100 05/22/18 02:00 65 18 104/65 (78) 99 05/22/18 02:00 18 Endotracheal Tube 45 05/22/18 01:36 68 14 103/75 (84) 100 05/22/18 01:22 68 18 40 05/22/18 01:00 66 14 102/68 (79) 99 05/22/18 01:00 14 Endotracheal Tube 45 05/22/18 00:30 66 14 94/71 (79) 100 05/22/18 00:00 98.0 76 14 98/73 (81) 99 05/22/18 00:00 Mechanical Ventilator 05/22/18 00:00 14 Endotracheal Tube 45 05/21/18 23:30 65 14 99 05/21/18 23:00 66 14 101/72 (82) 99 05/21/18 23:00 14 Endotracheal Tube 45 05/21/18 23:00 66 18 40 05/21/18 22:30 67 14 104/77 (86) 98 05/21/18 22:06 58 0 95/61 (72) 99 05/21/18 22:00 62 14 88/58 (68) 99 05/21/18 22:00 14 Endotracheal Tube 45 05/21/18 21:30 67 14 92/65 (74) 99 05/21/18 21:30 67 14 92/65 (74) 99 05/21/18 21:16 63 18 40 05/21/18 21:00 61 14 97/61 (73) 98 05/21/18 21:00 14 Endotracheal Tube 45 05/21/18 20:30 63 9 101/77 (85) 98 05/21/18 20:00 Mechanical Ventilator 05/21/18 20:00 98.0 59 14 93/65 (74) 99 05/21/18 20:00 14 Endotracheal Tube 45 05/21/18 20:00 60 05/21/18 20:00 45 05/21/18 19:30 60 14 94/64 (74) 98 05/21/18 19:00 14 Endotracheal Tube 45 05/21/18 19:00 94/64 05/21/18 19:00 60 14 87/53 (64) 98 05/21/18 18:55 60 18 40 05/21/18 18:00 16 Mechanical Ventilator 45 05/21/18 18:00 78 14 106/69 (81) 99 05/21/18 17:04 73 18 45 05/21/18 17:00 79 18 113/73 (86) 98 05/21/18 17:00 16 Mechanical Ventilator 45 05/21/18 16:00 98.8 76 19 115/80 (92) 96 05/21/18 16:00 45 05/21/18 16:00 75 05/21/18 16:00 Mechanical Ventilator 05/21/18 16:00 16 Mechanical Ventilator 45 05/21/18 15:30 16 Mechanical Ventilator 45 05/21/18 15:15 16 Mechanical Ventilator 45 05/21/18 15:12 76 27 45 05/21/18 15:03 Mechanical Ventilator 45 05/21/18 15:00 16 Mechanical Ventilator 45 05/21/18 15:00 74 15 121/85 (97) 100 05/21/18 14:50 98.6 05/21/18 14:45 16 Mechanical Ventilator 45 05/21/18 14:20 24 Mechanical Ventilator 45 Intake and Output 05/21/18 05/22/18 18:59 06:59 Intake Total 1159.156 ml 1295.0 ml Output Total 1370 ml 1595 ml Balance -210.844 ml -300.0 ml Free Water 300 ml 200 ml IV Total 859.156 ml 525.0 ml Tube Feeding 405 ml Other 165 ml Output Urine Total 370 ml 395 ml Stool Total 1000 ml 1200 ml Laboratory Tests 05/22/18 04:00: White Blood Count 13.5H, Red Blood Count 4.85, Hemoglobin 12.0, Hematocrit 41.1 , Mean Corpuscular Volume 85, Mean Corpuscular Hemoglobin 24.8L, Mean Corpuscular Hemoglobin Concent 29.3L, Red Cell Distribution Width 19.4H, Platelet Count 229, Mean Platelet Volume 9.8, Neutrophils (%) (Auto) 83.5H, Lymphocytes (%) (Auto) 5.0L, Monocytes (%) (Auto) 7.1, Eosinophils (%) (Auto) 1.6, Basophils (%) (Auto) 2.8H, Sodium Level 152H, Potassium Level 3.5, Chloride Level 117H, Carbon Dioxide Level 26, Anion Gap 9, Blood Urea Nitrogen 54H, Creatinine 1.6H, Estimat Glomerular Filtration Rate 39.3, Glucose Level 105 , Calcium Level 9.2, Phosphorus Level 2.6, Magnesium Level 2.2, Total Bilirubin 1.3H, Direct Bilirubin 1.0H, Aspartate Amino Transf (AST/SGOT) 40H, Alanine Aminotransferase (ALT/SGPT) 8L, Alkaline Phosphatase 239H, Total Protein 6.3L, Albumin 2.1L 05/22/18 06:00: Ammonia 26 05/22/18 10:08: Arterial Blood pH 7.300L, Arterial Blood Partial Pressure CO2 55.0H, Arterial Blood Partial Pressure O2 60.2L, Arterial Blood HCO3 26.5H, Arterial Blood Oxygen Saturation 92.2L, Arterial Blood Base Excess -0.8, Aditya Test Positive Height (Feet): 5 Height (Inches): 3.00 Weight (Pounds): 322 General Appearance: lethargic EENT: normal ENT inspection Neck: supple Cardiovascular: normal rate Respiratory/Chest: decreased breath sounds Abdomen: normal bowel sounds, non tender, soft Extremities: non-tender Robert Paul MD May 22, 2018 14:08
--- NOTE | 2018-05-22 14:30 | NUR ---
RESPIRATORY NOTE: Put pt back on AC mode with the same previous setting due to tiredness. pt is alert, awake, no SOB or acute resp distress noted. LUCIO Hart at bedside. Will continue to monitor pt closely.
--- NOTE | 2018-05-22 14:31 | NUR ---
NURSE NOTES: Awake, family at bedside, suctioned and mouth care done.ABG done and relayed to Dr Ritchie.Kept clean and dry.
--- NOTE | 2018-05-22 15:10 | Infectious Diseases Prog Note ---
Assessment/Plan Problems: (1) Leukocytosis (leucocytosis) Assessment & Plan: rule out bacteremia, blood culture X2 is pending , continue current antibiotics (2) Bilateral lower leg cellulitis Assessment & Plan: wound culture grew klibsella oxytoca, and Sphingomonas paucimobilis , continue doxycycline and aztreonam empirically with local wounds care . patient has refused MRI and CT of the legs to rule out deep abscess or osteomyelitis. await on bone scan of both legs once clinically stable . 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 (3) Nonhealing ulcer of left lower extremity Assessment & Plan: wound culture grew klebsiella oxytoca and Sphingomonas paucimobilis, now on aztreonam and doxycycline , continue local wound care and dressings change as per wound care service as per plastic surgery recommendations (4) CKD (chronic kidney disease) Assessment & Plan: avoid nephrotoxics , renally dosed antibiotics as per pharmacy (5) DM (diabetes mellitus) Assessment & Plan: recommend tight glycemic control to keep blood glucose between 100-140 (6) Acute encephalopathy Assessment & Plan: suspect metabolic with high ammonia level, continue lactulose , consult neurology if no improvement (7) Acute hypoxemic respiratory failure Assessment & Plan: due to the above , intubated on mechanical ventilation, pulmonary is following, on weaning trials Subjective ROS Limited/Unobtainable: Yes Allergies: Coded Allergies: ASPIRIN (Verified Allergy, Intermediate, Hives, 01/06/13) PENICILLINS (Verified Allergy, Intermediate, Hives, 01/06/13) Subjective she was still intubated on mechanical ventilation in ICU , awake and responsive , failed weaning trials , afebrile, has low UOP , not on pressor . retaining fluids Objective Vital Signs Last 24 Hour Vital Signs Date Time Temp Pulse Resp B/P (MAP) Pulse Ox O2 Delivery O2 Flow Rate FiO2 05/22/18 14:30 79 19 50 05/22/18 14:00 18 Mechanical Ventilator 50 05/22/18 14:00 81 20 117/81 (93) 98 05/22/18 13:25 85 25 50 05/22/18 13:00 18 Mechanical Ventilator 50 05/22/18 13:00 79 16 113/82 (92) 98 05/22/18 12:41 14 Mechanical Ventilator 50 05/22/18 12:09 98.4 88 23 128/102 (111) 99 05/22/18 12:00 88 1/26/19 12:00 50 05/22/18 12:00 Mechanical Ventilator 05/22/18 12:00 21 Mechanical Ventilator 50 05/22/18 11:00 84 12 117/91 (100) 98 05/22/18 10:53 80 22 50 05/22/18 10:00 81 12 111/77 (88) 100 05/22/18 09:07 83 24 40 05/22/18 09:07 97 05/22/18 09:00 80 13 116/86 (96) 98 05/22/18 08:46 115/94 05/22/18 08:00 45 05/22/18 08:00 Mechanical Ventilator 05/22/18 08:00 76 05/22/18 08:00 98.0 81 23 115/94 (101) 99 05/22/18 07:23 79 27 40 05/22/18 07:19 71 19 40 05/22/18 07:00 71 14 110/84 (93) 97 05/22/18 06:30 68 18 109/89 (96) 98 05/22/18 06:00 63 18 119/89 (99) 94 05/22/18 05:30 66 18 107/78 (88) 97 05/22/18 05:15 72 19 40 05/22/18 05:00 69 18 109/82 (91) 99 05/22/18 04:30 72 18 105/80 (88) 100 05/22/18 04:00 Mechanical Ventilator 05/22/18 04:00 97.9 80 20 109/86 (94) 90 05/22/18 04:00 18 Endotracheal Tube 45 05/22/18 04:00 70 05/22/18 04:00 45 05/22/18 03:30 67 18 97/71 (80) 100 05/22/18 03:26 64 18 40 05/22/18 03:00 18 Endotracheal Tube 45 05/22/18 03:00 65 18 108/82 (91) 100 05/22/18 02:30 63 18 109/77 (88) 100 05/22/18 02:00 65 18 104/65 (78) 99 05/22/18 02:00 18 Endotracheal Tube 45 05/22/18 01:36 68 14 103/75 (84) 100 1/26/19 01:22 68 18 40 05/22/18 01:00 66 14 102/68 (79) 99 05/22/18 01:00 14 Endotracheal Tube 45 05/22/18 00:30 66 14 94/71 (79) 100 05/22/18 00:00 98.0 76 14 98/73 (81) 99 05/22/18 00:00 Mechanical Ventilator 05/22/18 00:00 14 Endotracheal Tube 45 05/21/18 23:30 65 14 99 05/21/18 23:00 66 14 101/72 (82) 99 05/21/18 23:00 14 Endotracheal Tube 45 05/21/18 23:00 66 18 40 05/21/18 22:30 67 14 104/77 (86) 98 05/21/18 22:06 58 0 95/61 (72) 99 05/21/18 22:00 62 14 88/58 (68) 99 05/21/18 22:00 14 Endotracheal Tube 45 05/21/18 21:30 67 14 92/65 (74) 99 05/21/18 21:30 67 14 92/65 (74) 99 05/21/18 21:16 63 18 40 05/21/18 21:00 61 14 97/61 (73) 98 05/21/18 21:00 14 Endotracheal Tube 45 05/21/18 20:30 63 9 101/77 (85) 98 05/21/18 20:00 Mechanical Ventilator 05/21/18 20:00 98.0 59 14 93/65 (74) 99 05/21/18 20:00 14 Endotracheal Tube 45 05/21/18 20:00 60 05/21/18 20:00 45 05/21/18 19:30 60 14 94/64 (74) 98 05/21/18 19:00 14 Endotracheal Tube 45 05/21/18 19:00 94/64 05/21/18 19:00 60 14 87/53 (64) 98 05/21/18 18:55 60 18 40 05/21/18 18:00 16 Mechanical Ventilator 45 05/21/18 18:00 78 14 106/69 (81) 99 05/21/18 17:04 73 18 45 05/21/18 17:00 79 18 113/73 (86) 98 05/21/18 17:00 16 Mechanical Ventilator 45 05/21/18 16:00 98.8 76 19 115/80 (92) 96 05/21/18 16:00 45 05/21/18 16:00 75 05/21/18 16:00 Mechanical Ventilator 05/21/18 16:00 16 Mechanical Ventilator 45 05/21/18 15:30 16 Mechanical Ventilator 45 05/21/18 15:15 16 Mechanical Ventilator 45 05/21/18 15:12 76 27 45 Height (Feet): 5 Height (Inches): 3.00 Weight (Pounds): 322 General Appearance: WD/WN, no acute distress HEENT: normocephalic, atraumatic, anicteric, mucous membranes moist, PERRL Respiratory/Chest: chest wall non-tender, no respiratory distress, no accessory muscle use, decreased breath sounds, crackles/rales, expiratory wheezing Cardiovascular: normal peripheral pulses, normal rate, regular rhythm, no gallop/murmur, no JVD Abdomen: normal bowel sounds, soft, non tender, no organomegaly, non distended , no mass, no scars Extremities: no cyanosis, no clubbing Skin: no rash, no lesions, no ulcers Neurologic/Psychiatric: responsive Lymphatic: no neck adenopathy, no groin adenopathy Musculoskeletal: normal muscle bulk, no effusion Microbiology Date/Time Source Procedure Growth Status 05/21/18 11:51 Sputum Gram Stain Pending Resulted 05/21/18 11:51 Sputum Sputum Culture - Preliminary NO GROWTH Resulted Laboratory Tests Test 05/22/18 04:00 05/22/18 06:00 05/22/18 10:08 05/22/18 14:23 White Blood Count 13.5 K/UL (4.8-10.8) H Red Blood Count 4.85 M/UL (4.20-5.40) Hemoglobin 12.0 G/DL (12.0-16.0) Hematocrit 41.1 % (37.0-47.0) Mean Corpuscular Volume 85 FL (80-99) Mean Corpuscular Hemoglobin 24.8 PG (27.0-31.0) L Mean Corpuscular Hemoglobin Concent 29.3 G/DL (32.0-36.0) L Red Cell Distribution Width 19.4 % (11.6-14.8) H Platelet Count 229 K/UL (150-450) Mean Platelet Volume 9.8 FL (6.5-10.1) Neutrophils (%) (Auto) 83.5 % (45.0-75.0) H Lymphocytes (%) (Auto) 5.0 % (20.0-45.0) L Monocytes (%) (Auto) 7.1 % (1.0-10.0) Eosinophils (%) (Auto) 1.6 % (0.0-3.0) Basophils (%) (Auto) 2.8 % (0.0-2.0) H Sodium Level 152 MMOL/L (136-145) H Potassium Level 3.5 MMOL/L (3.5-5.1) Chloride Level 117 MMOL/L (98-107) H Carbon Dioxide Level 26 MMOL/L (21-32) Anion Gap 9 mmol/L (5-15) Blood Urea Nitrogen 54 mg/dL (7-18) H Creatinine 1.6 MG/DL (0.55-1.30) H Estimat Glomerular Filtration Rate 39.3 mL/min (>60) Glucose Level 105 MG/DL (74-106) Calcium Level 9.2 MG/DL (8.5-10.1) Phosphorus Level 2.6 MG/DL (2.5-4.9) Magnesium Level 2.2 MG/DL (1.8-2.4) Total Bilirubin 1.3 MG/DL (0.2-1.0) H Direct Bilirubin 1.0 MG/DL (0.0-0.3) H Aspartate Amino Transf (AST/SGOT) 40 U/L (15-37) H Alanine Aminotransferase (ALT/SGPT) 8 U/L (12-78) L Alkaline Phosphatase 239 U/L (46-116) H Total Protein 6.3 G/DL (6.4-8.2) L Albumin 2.1 G/DL (3.4-5.0) L Ammonia 26 umol/L (11-32) Arterial Blood pH 7.300 (7.350-7.450) 7.296 (7.350-7.450) Arterial Blood Partial Pressure CO2 55.0 mmHg (35.0-45.0) H 50.8 mmHg (35.0-45.0) H Arterial Blood Partial Pressure O2 60.2 mmHg (75.0-100.0) L 109.0 mmHg (75.0-100.0) H Arterial Blood HCO3 26.5 mmol/L (22.0-26.0) H 24.2 mmol/L (22.0-26.0) Arterial Blood Oxygen Saturation 92.2 % (95-100) L 97.6 % (95-100) Arterial Blood Base Excess -0.8 (-2-2) -2.7 (-2-2) L Aditya Test Positive Positive Current Medications Medications (Trade) Dose Ordered Sig/Toya Route PRN Reason Start Time Stop Time Status Last Admin Dose Admin Allopurinol (Allopurinol) 300 mg DAILY NG 05/19/18 13:00 06/18/18 12:59 05/22/18 08:47 Ascorbic Acid (Vitamin C) 500 mg TWICE A DAY NG 05/18/18 09:00 06/15/18 17:59 05/22/18 08:47 Atorvastatin Calcium (Lipitor) 20 mg BEDTIME ORAL 05/17/18 21:00 06/13/18 20:59 05/21/18 21:06 Aztreonam 2 gm/ Dextrose 110 ml @ 220 mls/hr Q8HR@0000,0800,1600 IVPB 05/17/18 16:00 05/24/18 15:59 05/22/18 08:47 Chlorhexidine Gluconate (Romy-Hex 2%) 1 applic DAILY@2000 TOPIC 05/14/18 20:00 06/13/18 19:59 05/21/18 21:00 Clopidogrel Bisulfate (Plavix) 75 mg DAILY NG 05/18/18 09:00 06/14/18 08:59 05/22/18 08:47 Dextrose (Dextrose 50%) 25 ml Q30M PRN IV Hypoglycemia 05/13/18 21:00 06/11/18 16:59 Dextrose (Dextrose 50%) 50 ml Q30M PRN IV Hypoglycemia 05/13/18 21:00 06/11/18 16:59 Dopamine HCl/ Dextrose 250 ml @ 0 mls/hr Q24H IV 05/15/18 19:00 06/14/18 18:59 05/16/18 18:05 Doxycycline Hyclate 100 mg/ Dextrose 110 ml @ 110 mls/hr Q12HR IV 05/19/18 21:00 05/26/18 20:59 05/22/18 08:48 Fentanyl Citrate 1000 mcg/Sodium Chloride 100 ml @ 0 mls/hr Q24H IV 05/21/18 13:00 05/28/18 12:59 05/21/18 14:20 Insulin Aspart (NovoLOG) Q6HR SUBQ 05/18/18 13:00 06/11/18 12:59 05/20/18 05:04 Lactulose (Cephulac) 30 gm Q8HR NG 05/14/18 14:00 06/12/18 17:59 05/22/18 14:07 Midodrine (Pro-Amatine) 5 mg THREE TIMES A DAY NG 05/20/18 18:00 06/17/18 12:59 05/22/18 14:07 Multivitamins (Multivitamins) 1 tab DAILY ORAL 05/18/18 09:00 06/16/18 08:59 05/22/18 08:47 Nitroglycerin (Ntg) 1 patch Q24H TDERMAL 05/15/18 09:00 06/14/18 08:59 05/22/18 08:46 Pantoprazole (Protonix) 40 mg EVERY 12 HOURS IVP 05/14/18 21:00 06/13/18 20:59 05/22/18 08:46 Povidone Iodine (Betadine Gretchen) 1 applic BID TOPIC 05/16/18 09:00 06/15/18 08:59 05/22/18 08:48 Rifaximin (Xifaxan) 550 mg EVERY 12 HOURS NG 05/18/18 09:00 05/27/18 23:59 05/22/18 08:47 Sodium Chloride 500 ml @ 999 mls/hr Q31M PRN IV For hypotension 05/14/18 01:30 06/13/18 01:29 05/21/18 19:22 Juice Wilkerson M.D. May 22, 2018 15:10
--- NOTE | 2018-05-22 15:30 | General Progress Note ---
Assessment/Plan Assessment/Plan S, O: Intubated, PICC line in place, patient awake, not following commands. limited exam PHYSICAL EXAMINATION: HEAD AND NECK: Atraumatic and normocephalic. CHEST: Diffuse bronchial breathing sounds. Overall decreased breathing sounds. ABDOMEN: Grossly morbidly obese. Limited evaluation. MUSCULOSKELETAL: Positive for ulcers and wounds, more diffusely edematous about 2+, superficial wounds on both legs , dressed . NEUROLOGIC: The patient is sedated and intubated. limited exam, Upper arms in soft restraint Meds: Reviewed and reconciled. CXR dated 05/22/18 : reviewed ASSESSMENT: 1.Hypercapnic Vent Dependent Respiratory failure 2. shock, ddx: septic vs cardiogenic 3. CHF exacerbation, right sided, preserved EF 3. Acute/Chronic Renal F 4. Abnormal Trop: NSTEMI vs Leakage 3. UTI/lower extremity infection Hypertension. 4. Diabetes type 2, controlled with A1c of 6.3. 5. Pain management. 6. PAH 7. 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 HyperNatremia 6. GI and DVT prophylaxis. PLAN OF CARE: Grave prognosis Off pressor, preserved BP Empirical abx, per ID Failed first attempt for weaning trial Will Followup with pulmonary for re-weaning trial I spoke with the Son, yesterday. Subjective Allergies: Coded Allergies: ASPIRIN (Verified Allergy, Intermediate, Hives, 01/06/13) PENICILLINS (Verified Allergy, Intermediate, Hives, 01/06/13) Objective Last 24 Hour Vital Signs Date Time Temp Pulse Resp B/P (MAP) Pulse Ox O2 Delivery O2 Flow Rate FiO2 05/22/18 14:30 79 19 50 05/22/18 14:00 18 Mechanical Ventilator 50 05/22/18 14:00 81 20 117/81 (93) 98 05/22/18 13:25 85 25 50 05/22/18 13:00 18 Mechanical Ventilator 50 05/22/18 13:00 79 16 113/82 (92) 98 05/22/18 12:41 14 Mechanical Ventilator 50 05/22/18 12:09 98.4 88 23 128/102 (111) 99 05/22/18 12:00 88 05/22/18 12:00 50 05/22/18 12:00 Mechanical Ventilator 05/22/18 12:00 21 Mechanical Ventilator 50 05/22/18 11:00 84 12 117/91 (100) 98 05/22/18 10:53 80 22 50 05/22/18 10:00 81 12 111/77 (88) 100 05/22/18 09:07 83 24 40 05/22/18 09:07 97 05/22/18 09:00 80 13 116/86 (96) 98 05/22/18 08:46 115/94 05/22/18 08:00 45 05/22/18 08:00 Mechanical Ventilator 05/22/18 08:00 76 05/22/18 08:00 98.0 81 23 115/94 (101) 99 05/22/18 07:23 79 27 40 05/22/18 07:19 71 19 40 05/22/18 07:00 71 14 110/84 (93) 97 05/22/18 06:30 68 18 109/89 (96) 98 05/22/18 06:00 63 18 119/89 (99) 94 05/22/18 05:30 66 18 107/78 (88) 97 05/22/18 05:15 72 19 40 05/22/18 05:00 69 18 109/82 (91) 99 05/22/18 04:30 72 18 105/80 (88) 100 05/22/18 04:00 Mechanical Ventilator 05/22/18 04:00 97.9 80 20 109/86 (94) 90 05/22/18 04:00 18 Endotracheal Tube 45 05/22/18 04:00 70 05/22/18 04:00 45 05/22/18 03:30 67 18 97/71 (80) 100 05/22/18 03:26 64 18 40 05/22/18 03:00 18 Endotracheal Tube 45 05/22/18 03:00 65 18 108/82 (91) 100 05/22/18 02:30 63 18 109/77 (88) 100 05/22/18 02:00 65 18 104/65 (78) 99 05/22/18 02:00 18 Endotracheal Tube 45 05/22/18 01:36 68 14 103/75 (84) 100 05/22/18 01:22 68 18 40 05/22/18 01:00 66 14 102/68 (79) 99 05/22/18 01:00 14 Endotracheal Tube 45 05/22/18 00:30 66 14 94/71 (79) 100 05/22/18 00:00 98.0 76 14 98/73 (81) 99 05/22/18 00:00 Mechanical Ventilator 05/22/18 00:00 14 Endotracheal Tube 45 05/21/18 23:30 65 14 99 05/21/18 23:00 66 14 101/72 (82) 99 05/21/18 23:00 14 Endotracheal Tube 45 05/21/18 23:00 66 18 40 05/21/18 22:30 67 14 104/77 (86) 98 05/21/18 22:06 58 0 95/61 (72) 99 05/21/18 22:00 62 14 88/58 (68) 99 05/21/18 22:00 14 Endotracheal Tube 45 05/21/18 21:30 67 14 92/65 (74) 99 05/21/18 21:30 67 14 92/65 (74) 99 05/21/18 21:16 63 18 40 05/21/18 21:00 61 14 97/61 (73) 98 05/21/18 21:00 14 Endotracheal Tube 45 05/21/18 20:30 63 9 101/77 (85) 98 05/21/18 20:00 Mechanical Ventilator 05/21/18 20:00 98.0 59 14 93/65 (74) 99 05/21/18 20:00 14 Endotracheal Tube 45 05/21/18 20:00 60 05/21/18 20:00 45 05/21/18 19:30 60 14 94/64 (74) 98 05/21/18 19:00 14 Endotracheal Tube 45 05/21/18 19:00 94/64 05/21/18 19:00 60 14 87/53 (64) 98 05/21/18 18:55 60 18 40 05/21/18 18:00 16 Mechanical Ventilator 45 05/21/18 18:00 78 14 106/69 (81) 99 05/21/18 17:04 73 18 45 05/21/18 17:00 79 18 113/73 (86) 98 05/21/18 17:00 16 Mechanical Ventilator 45 05/21/18 16:00 98.8 76 19 115/80 (92) 96 05/21/18 16:00 45 05/21/18 16:00 75 05/21/18 16:00 Mechanical Ventilator 05/21/18 16:00 16 Mechanical Ventilator 45 05/21/18 15:30 16 Mechanical Ventilator 45 Intake and Output 05/21/18 05/22/18 18:59 06:59 Intake Total 1159.156 ml 1295.0 ml Output Total 1370 ml 1595 ml Balance -210.844 ml -300.0 ml Free Water 300 ml 200 ml IV Total 859.156 ml 525.0 ml Tube Feeding 405 ml Other 165 ml Output Urine Total 370 ml 395 ml Stool Total 1000 ml 1200 ml Laboratory Tests 05/22/18 04:00: White Blood Count 13.5H, Red Blood Count 4.85, Hemoglobin 12.0, Hematocrit 41.1 , Mean Corpuscular Volume 85, Mean Corpuscular Hemoglobin 24.8L, Mean Corpuscular Hemoglobin Concent 29.3L, Red Cell Distribution Width 19.4H, Platelet Count 229, Mean Platelet Volume 9.8, Neutrophils (%) (Auto) 83.5H, Lymphocytes (%) (Auto) 5.0L, Monocytes (%) (Auto) 7.1, Eosinophils (%) (Auto) 1.6, Basophils (%) (Auto) 2.8H, Sodium Level 152H, Potassium Level 3.5, Chloride Level 117H, Carbon Dioxide Level 26, Anion Gap 9, Blood Urea Nitrogen 54H, Creatinine 1.6H, Estimat Glomerular Filtration Rate 39.3, Glucose Level 105 , Calcium Level 9.2, Phosphorus Level 2.6, Magnesium Level 2.2, Total Bilirubin 1.3H, Direct Bilirubin 1.0H, Aspartate Amino Transf (AST/SGOT) 40H, Alanine Aminotransferase (ALT/SGPT) 8L, Alkaline Phosphatase 239H, Total Protein 6.3L, Albumin 2.1L 05/22/18 06:00: Ammonia 26 05/22/18 10:08: Arterial Blood pH 7.300L, Arterial Blood Partial Pressure CO2 55.0H, Arterial Blood Partial Pressure O2 60.2L, Arterial Blood HCO3 26.5H, Arterial Blood Oxygen Saturation 92.2L, Arterial Blood Base Excess -0.8, Aditya Test Positive 05/22/18 14:23: Arterial Blood pH 7.296L, Arterial Blood Partial Pressure CO2 50.8H, Arterial Blood Partial Pressure O2 109.0H, Arterial Blood HCO3 24.2, Arterial Blood Oxygen Saturation 97.6, Arterial Blood Base Excess -2.7L, Aditya Test Positive Height (Feet): 5 Height (Inches): 3.00 Weight (Pounds): 322 Margaret Mckinney MD May 22, 2018 15:30
--- NOTE | 2018-05-22 16:02 | NUR ---
NURSE NOTES: Patient turned and repositioned.ADls done and pt kept clean and dry. Good pericare and mouth care done.HOB elevated to prevent aspiration. GT feeding was resumed. Kept on close monitoring
[2018-05-22] MEDS ORDERED: Tubing IV Secondary IV ONE ×2 (17:07→17:11)
[2018-05-22] MEDS ORDERED: NS 500ML ONE ×2 (17:07→17:11)
[2018-05-22] MEDS ORDERED: NS 275ml ONE ×2 (17:07→17:11)
[2018-05-22] MEDS ORDERED: D5W 550ml IV ONE (17:11)
--- NOTE | 2018-05-22 17:47 | Pulmonolgy Critical Care Note ---
Critical Care - Asmt/Plan Assessment/Plan: Problem List: 1. Altered mental status 2. Acute hypercapnic respiratory failure -intubated 05/15 3. Bilateral lower extremity cellulitis 4. RACHELLE on CKD 5. DM 6. Morbid obesity 7. Elevated ammonia level 8. RV failure Plan: -resume weaning porotocol -will need to monitor ABG closely if extubated, will need bipap available -monitor volumes and renal function -Abx per ID -f/u cultures, send respiratory culture -increased leukocytosis, monitor -monitor cellulitis Respiratory: adjust tidal volume, CXR, ABG, weaning trial Cardiac: continue pressors Infectious Disease: check cultures, continue antibiotics Endocrine: monitor blood sugar, check TSH Neurologic: PRN Morphine Prophylaxis: Protonix Time Spent (Minutes): 50 Notes Reviewed: manager maintenance, cardio Discussed with: nurses Critical Care - Objective Last 24 Hour Vital Signs Date Time Temp Pulse Resp B/P (MAP) Pulse Ox O2 Delivery O2 Flow Rate FiO2 05/22/18 17:00 18 Mechanical Ventilator 50 05/22/18 17:00 74 20 115/92 (100) 98 05/22/18 16:35 74 18 50 05/22/18 16:13 97.8 71 18 109/83 (92) 99 05/22/18 16:00 Mechanical Ventilator 05/22/18 16:00 18 Mechanical Ventilator 50 05/22/18 16:00 82 05/22/18 16:00 50 05/22/18 15:00 75 20 104/85 (91) 99 05/22/18 15:00 18 Mechanical Ventilator 50 05/22/18 14:30 79 19 50 05/22/18 14:00 18 Mechanical Ventilator 50 05/22/18 14:00 81 20 117/81 (93) 98 05/22/18 13:25 85 25 50 05/22/18 13:00 18 Mechanical Ventilator 50 05/22/18 13:00 79 16 113/82 (92) 98 05/22/18 12:41 14 Mechanical Ventilator 50 05/22/18 12:09 98.4 88 23 128/102 (111) 99 05/22/18 12:00 88 05/22/18 12:00 50 05/22/18 12:00 Mechanical Ventilator 05/22/18 12:00 21 Mechanical Ventilator 50 05/22/18 11:00 84 12 117/91 (100) 98 05/22/18 10:53 80 22 50 05/22/18 10:00 81 12 111/77 (88) 100 05/22/18 09:07 83 24 40 05/22/18 09:07 97 05/22/18 09:00 80 13 116/86 (96) 98 05/22/18 08:46 115/94 05/22/18 08:00 45 05/22/18 08:00 Mechanical Ventilator 05/22/18 08:00 76 05/22/18 08:00 98.0 81 23 115/94 (101) 99 05/22/18 07:23 79 27 40 05/22/18 07:19 71 19 40 05/22/18 07:00 71 14 110/84 (93) 97 05/22/18 06:30 68 18 109/89 (96) 98 05/22/18 06:00 63 18 119/89 (99) 94 05/22/18 05:30 66 18 107/78 (88) 97 05/22/18 05:15 72 19 40 05/22/18 05:00 69 18 109/82 (91) 99 05/22/18 04:30 72 18 105/80 (88) 100 05/22/18 04:00 Mechanical Ventilator 05/22/18 04:00 97.9 80 20 109/86 (94) 90 05/22/18 04:00 18 Endotracheal Tube 45 05/22/18 04:00 70 05/22/18 04:00 45 05/22/18 03:30 67 18 97/71 (80) 100 05/22/18 03:26 64 18 40 05/22/18 03:00 18 Endotracheal Tube 45 05/22/18 03:00 65 18 108/82 (91) 100 05/22/18 02:30 63 18 109/77 (88) 100 05/22/18 02:00 65 18 104/65 (78) 99 05/22/18 02:00 18 Endotracheal Tube 45 05/22/18 01:36 68 14 103/75 (84) 100 05/22/18 01:22 68 18 40 05/22/18 01:00 66 14 102/68 (79) 99 05/22/18 01:00 14 Endotracheal Tube 45 05/22/18 00:30 66 14 94/71 (79) 100 05/22/18 00:00 98.0 76 14 98/73 (81) 99 05/22/18 00:00 Mechanical Ventilator 05/22/18 00:00 14 Endotracheal Tube 45 05/21/18 23:30 65 14 99 05/21/18 23:00 66 14 101/72 (82) 99 05/21/18 23:00 14 Endotracheal Tube 45 05/21/18 23:00 66 18 40 05/21/18 22:30 67 14 104/77 (86) 98 05/21/18 22:06 58 0 95/61 (72) 99 05/21/18 22:00 62 14 88/58 (68) 99 05/21/18 22:00 14 Endotracheal Tube 45 05/21/18 21:30 67 14 92/65 (74) 99 05/21/18 21:30 67 14 92/65 (74) 99 05/21/18 21:16 63 18 40 05/21/18 21:00 61 14 97/61 (73) 98 05/21/18 21:00 14 Endotracheal Tube 45 05/21/18 20:30 63 9 101/77 (85) 98 05/21/18 20:00 Mechanical Ventilator 05/21/18 20:00 98.0 59 14 93/65 (74) 99 05/21/18 20:00 14 Endotracheal Tube 45 05/21/18 20:00 60 05/21/18 20:00 45 05/21/18 19:30 60 14 94/64 (74) 98 05/21/18 19:00 14 Endotracheal Tube 45 05/21/18 19:00 94/64 05/21/18 19:00 60 14 87/53 (64) 98 05/21/18 18:55 60 18 40 05/21/18 18:00 16 Mechanical Ventilator 45 05/21/18 18:00 78 14 106/69 (81) 99 Status: awake Condition: critical Lungs: rhonchi Heart: HR/BP unstable Extremities: edema Decubiti: location Micro: Microbiology Date/Time Source Procedure Growth Status 05/21/18 11:51 Sputum Gram Stain Pending Resulted 05/21/18 11:51 Sputum Sputum Culture - Preliminary NO GROWTH Resulted Accucheck: 97 Critical Care - Subjective ROS Limited/Unobtainable: Yes Condition: critical FI02: 50 Vent Support Breath Rate: 18 Vent Support Mode: AC Vent Tidal Volume: 550 Sputum Amount: Small PEEP: 6.0 PIP: 38 Tube Feeding Amount: 45 I&O: Intake and Output 05/21/18 05/22/18 19:00 07:00 Intake Total 1161.656 ml 1292.5 ml Output Total 1770 ml 1195 ml Balance -608.344 ml 97.5 ml Free Water 300 ml 200 ml IV Total 861.656 ml 522.5 ml Tube Feeding 405 ml Other 165 ml Output Urine Total 370 ml 395 ml Stool Total 1400 ml 800 ml Subjective: failed wean and placed back on AC awake wounds noted no reports cp nv positive uop on TF CXR: increased bilateral infeiltrates chf ET-Tube: 7.5 ET Position: 24 Labs: Current Medications Medications (Trade) Dose Ordered Sig/Toya Route PRN Reason Start Time Stop Time Status Last Admin Dose Admin Allopurinol (Allopurinol) 300 mg DAILY NG 05/19/18 13:00 06/18/18 12:59 05/22/18 08:47 Ascorbic Acid (Vitamin C) 500 mg TWICE A DAY NG 05/18/18 09:00 06/15/18 17:59 05/22/18 17:36 Atorvastatin Calcium (Lipitor) 20 mg BEDTIME ORAL 05/17/18 21:00 06/13/18 20:59 05/21/18 21:06 Aztreonam 2 gm/ Dextrose 110 ml @ 220 mls/hr Q8HR@0000,0800,1600 IVPB 05/17/18 16:00 05/24/18 15:59 05/22/18 15:56 Chlorhexidine Gluconate (Romy-Hex 2%) 1 applic DAILY@2000 TOPIC 05/14/18 20:00 06/13/18 19:59 05/21/18 21:00 Clopidogrel Bisulfate (Plavix) 75 mg DAILY NG 05/18/18 09:00 06/14/18 08:59 05/22/18 08:47 Dextrose (Dextrose 50%) 25 ml Q30M PRN IV Hypoglycemia 05/13/18 21:00 06/11/18 16:59 Dextrose (Dextrose 50%) 50 ml Q30M PRN IV Hypoglycemia 05/13/18 21:00 06/11/18 16:59 Dopamine HCl/ Dextrose 250 ml @ 0 mls/hr Q24H IV 05/15/18 19:00 06/14/18 18:59 05/16/18 18:05 Doxycycline Hyclate 100 mg/ Dextrose 110 ml @ 110 mls/hr Q12HR IV 05/19/18 21:00 05/26/18 20:59 05/22/18 08:48 Fentanyl Citrate 1000 mcg/Sodium Chloride 100 ml @ 0 mls/hr Q24H IV 05/21/18 13:00 05/28/18 12:59 05/22/18 18:09 Insulin Aspart (NovoLOG) Q6HR SUBQ 05/18/18 13:00 06/11/18 12:59 05/20/18 05:04 Lactulose (Cephulac) 30 gm Q8HR NG 05/14/18 14:00 06/12/18 17:59 05/22/18 14:07 Midodrine (Pro-Amatine) 5 mg THREE TIMES A DAY NG 05/20/18 18:00 06/17/18 12:59 05/22/18 17:36 Multivitamins (Multivitamins) 1 tab DAILY ORAL 05/18/18 09:00 06/16/18 08:59 05/22/18 08:47 Nitroglycerin (Ntg) 1 patch Q24H TDERMAL 05/15/18 09:00 06/14/18 08:59 05/22/18 08:46 Pantoprazole (Protonix) 40 mg EVERY 12 HOURS IVP 05/14/18 21:00 06/13/18 20:59 05/22/18 08:46 Povidone Iodine (Betadine Gretchen) 1 applic BID TOPIC 05/16/18 09:00 06/15/18 08:59 05/22/18 17:36 Rifaximin (Xifaxan) 550 mg EVERY 12 HOURS NG 05/18/18 09:00 05/27/18 23:59 05/22/18 08:47 Sodium Chloride 500 ml @ 999 mls/hr Q31M PRN IV For hypotension 05/14/18 01:30 06/13/18 01:29 05/21/18 19:22 Laboratory Tests Test 05/22/18 04:00 05/22/18 06:00 05/22/18 10:08 05/22/18 14:23 White Blood Count 13.5 K/UL (4.8-10.8) H Red Blood Count 4.85 M/UL (4.20-5.40) Hemoglobin 12.0 G/DL (12.0-16.0) Hematocrit 41.1 % (37.0-47.0) Mean Corpuscular Volume 85 FL (80-99) Mean Corpuscular Hemoglobin 24.8 PG (27.0-31.0) L Mean Corpuscular Hemoglobin Concent 29.3 G/DL (32.0-36.0) L Red Cell Distribution Width 19.4 % (11.6-14.8) H Platelet Count 229 K/UL (150-450) Mean Platelet Volume 9.8 FL (6.5-10.1) Neutrophils (%) (Auto) 83.5 % (45.0-75.0) H Lymphocytes (%) (Auto) 5.0 % (20.0-45.0) L Monocytes (%) (Auto) 7.1 % (1.0-10.0) Eosinophils (%) (Auto) 1.6 % (0.0-3.0) Basophils (%) (Auto) 2.8 % (0.0-2.0) H Sodium Level 152 MMOL/L (136-145) H Potassium Level 3.5 MMOL/L (3.5-5.1) Chloride Level 117 MMOL/L (98-107) H Carbon Dioxide Level 26 MMOL/L (21-32) Anion Gap 9 mmol/L (5-15) Blood Urea Nitrogen 54 mg/dL (7-18) H Creatinine 1.6 MG/DL (0.55-1.30) H Estimat Glomerular Filtration Rate 39.3 mL/min (>60) Glucose Level 105 MG/DL (74-106) Calcium Level 9.2 MG/DL (8.5-10.1) Phosphorus Level 2.6 MG/DL (2.5-4.9) Magnesium Level 2.2 MG/DL (1.8-2.4) Total Bilirubin 1.3 MG/DL (0.2-1.0) H Direct Bilirubin 1.0 MG/DL (0.0-0.3) H Aspartate Amino Transf (AST/SGOT) 40 U/L (15-37) H Alanine Aminotransferase (ALT/SGPT) 8 U/L (12-78) L Alkaline Phosphatase 239 U/L (46-116) H Total Protein 6.3 G/DL (6.4-8.2) L Albumin 2.1 G/DL (3.4-5.0) L Ammonia 26 umol/L (11-32) Arterial Blood pH 7.300 (7.350-7.450) 7.296 (7.350-7.450) Arterial Blood Partial Pressure CO2 55.0 mmHg (35.0-45.0) H 50.8 mmHg (35.0-45.0) H Arterial Blood Partial Pressure O2 60.2 mmHg (75.0-100.0) L 109.0 mmHg (75.0-100.0) H Arterial Blood HCO3 26.5 mmol/L (22.0-26.0) H 24.2 mmol/L (22.0-26.0) Arterial Blood Oxygen Saturation 92.2 % (95-100) L 97.6 % (95-100) Arterial Blood Base Excess -0.8 (-2-2) -2.7 (-2-2) L Aditya Test Positive Positive Krystin Lu DO May 22, 2018 17:47
--- NOTE | 2018-05-22 18:01 | NUR ---
NURSE NOTES: Pt turned and repositioned.ADls done, kept clean and dry. HOB elevated to prevent aspiration. No residual at this time and GT placement intact.Will continue to monitor.
[2018-05-22] MEDS: DOPamine 400mg/250ml 250 ML IV SCH (18:10)
--- NOTE | 2018-05-22 18:41 | NUR ---
NURSE NOTES: Seen by Dr Lu and update done on weaning occurrence and current AC mode. Will follow up with new orders.
--- NOTE | 2018-05-22 19:24 | NUR ---
HAND-OFF: Report given to LUCIO Singh.
--- NOTE | 2018-05-22 19:30 | NUR ---
NURSE NOTES: Received report from Hailey VALDES. Patient in bed resting SR with on the monitor HR 61. Patient is intubated 7.5/24 cm lipline AC 18 VT 550 FiO2 40% and peep of 6. No s/s of cardiac and acute distress noted. OGT intact no residual. Large, round, non-tender abdomen. Hyperactive sound present on all 4 quadrants. Patient has rectal tube and Anaya, intact draining. Bilateral lower leg ulcer. L upper arm PICC line patient flushing. Patient receiving Fentanyl drips 25mcg/hr Rass score -2. HOB elevated. bed locked and in lowest position. bed alarm on, bilateral soft wrist restraint checked. Will continue plan of care.
[2018-05-22] MEDS: Dyna-Hex 2% Top Sol 2oz TOPIC SCH (20:50)
[2018-05-22] MEDS: Atorvastatin 20mg tab ORAL SCH (20:50)
--- NOTE | 2018-05-22 21:30 | NUR ---
NURSE NOTES: Patient RASS Score -2 light sedation. On Fentanyl drip at 25mcg/hr. Repositioned. No s/s of acute distress. Will continue plan of care.
--- NOTE | 2018-05-22 23:30 | NUR ---
NURSE NOTES: Patient blood glucose 95mg/dl no coverage. OGT intact on Glucerna 1.5 at 45cc/hr. HOB elevated. patient easily arousable to verbal and tactile stimuli. Noted patient with skin tear on left wrist and old close blister on right foot toe open up initial treatment done.Patient, Charge nurse and supervisor pit and auxiliaries aware. Will inform RP in am.Repositioned. Will continue plan of care.
--- NOTE | 2018-05-22 23:56 | Cardiology Progress Note ---
Assessment/Plan Assessment/Plan 1. Acute hypoxic hypercarbic respiratory failure. 2D echocardiography shows normal LV systolic function with a normal left atrial pressure, however e/o right heart failure. 2. Right heart failure, pre-load sensitive, avoid aggressive diuretic use, evidence of RA and RV dilatation and severe RV systolic dysfunction, associated pulmonary HTN, ? type. 3. Paroxysmal atrial fibrillation, currently sinus rhythm. 4. Hypotension likely due to RV failure, resolved, on midodrine, grim prognosis. 5. Slight elevation of troponin I level in this patient could be due to RV strain/failure or due to type 2 non-ST elevation myocardial infarction. Subjective Subjective Sinus rhythm at rate of 61. Failed weaning attempts. Intubated on FiO2 of 40%. Objective Last 24 Hour Vital Signs Date Time Temp Pulse Resp B/P (MAP) Pulse Ox O2 Delivery O2 Flow Rate FiO2 05/22/18 23:37 61 18 30 05/22/18 23:00 18 Endotracheal Tube 40 05/22/18 22:00 18 Endotracheal Tube 40 05/22/18 21:30 59 17 99 05/22/18 21:12 75 18 40 05/22/18 21:00 18 Endotracheal Tube 40 05/22/18 21:00 71 18 102/56 (71) 99 05/22/18 20:30 63 18 97/66 (76) 98 05/22/18 20:00 40 05/22/18 20:00 18 Endotracheal Tube 40 05/22/18 20:00 Mechanical Ventilator 05/22/18 20:00 98.0 66 18 105/71 (82) 98 05/22/18 20:00 61 05/22/18 19:30 68 18 105/76 (86) 98 05/22/18 19:17 40 05/22/18 19:15 72 18 50 05/22/18 19:00 68 18 104/75 (85) 99 05/22/18 19:00 18 Mechanical Ventilator 50 05/22/18 18:39 98.8 05/22/18 18:10 117/89 05/22/18 18:09 Mechanical Ventilator 50 05/22/18 18:00 65 18 117/89 (98) 99 05/22/18 17:00 18 Mechanical Ventilator 50 05/22/18 17:00 74 20 115/92 (100) 98 05/22/18 16:35 74 18 50 05/22/18 16:13 97.8 71 18 109/83 (92) 99 05/22/18 16:00 Mechanical Ventilator 05/22/18 16:00 18 Mechanical Ventilator 50 05/22/18 16:00 82 05/22/18 16:00 50 05/22/18 15:00 75 20 104/85 (91) 99 05/22/18 15:00 18 Mechanical Ventilator 50 05/22/18 14:30 79 19 50 05/22/18 14:00 18 Mechanical Ventilator 50 05/22/18 14:00 81 20 117/81 (93) 98 05/22/18 13:25 85 25 50 05/22/18 13:00 18 Mechanical Ventilator 50 05/22/18 13:00 79 16 113/82 (92) 98 05/22/18 12:41 14 Mechanical Ventilator 50 05/22/18 12:09 98.4 88 23 128/102 (111) 99 05/22/18 12:00 88 05/22/18 12:00 50 05/22/18 12:00 Mechanical Ventilator 05/22/18 12:00 21 Mechanical Ventilator 50 05/22/18 11:00 84 12 117/91 (100) 98 05/22/18 10:53 80 22 50 05/22/18 10:00 81 12 111/77 (88) 100 05/22/18 09:07 83 24 40 05/22/18 09:07 97 05/22/18 09:00 80 13 116/86 (96) 98 05/22/18 08:46 115/94 05/22/18 08:00 45 05/22/18 08:00 Mechanical Ventilator 05/22/18 08:00 76 05/22/18 08:00 98.0 81 23 115/94 (101) 99 05/22/18 07:23 79 27 40 05/22/18 07:19 71 19 40 05/22/18 07:00 71 14 110/84 (93) 97 05/22/18 06:30 68 18 109/89 (96) 98 05/22/18 06:00 63 18 119/89 (99) 94 05/22/18 05:30 66 18 107/78 (88) 97 05/22/18 05:15 72 19 40 05/22/18 05:00 69 18 109/82 (91) 99 05/22/18 04:30 72 18 105/80 (88) 100 05/22/18 04:00 Mechanical Ventilator 05/22/18 04:00 97.9 80 20 109/86 (94) 90 05/22/18 04:00 18 Endotracheal Tube 45 05/22/18 04:00 70 05/22/18 04:00 45 05/22/18 03:30 67 18 97/71 (80) 100 05/22/18 03:26 64 18 40 05/22/18 03:00 18 Endotracheal Tube 45 05/22/18 03:00 65 18 108/82 (91) 100 05/22/18 02:30 63 18 109/77 (88) 100 05/22/18 02:00 65 18 104/65 (78) 99 05/22/18 02:00 18 Endotracheal Tube 45 05/22/18 01:36 68 14 103/75 (84) 100 05/22/18 01:22 68 18 40 05/22/18 01:00 66 14 102/68 (79) 99 05/22/18 01:00 14 Endotracheal Tube 45 05/22/18 00:30 66 14 94/71 (79) 100 05/22/18 00:00 98.0 76 14 98/73 (81) 99 05/22/18 00:00 Mechanical Ventilator 05/22/18 00:00 14 Endotracheal Tube 45 Intake and Output 05/21/18 05/22/18 19:00 07:00 Intake Total 1161.656 ml 1292.5 ml Output Total 1770 ml 1195 ml Balance -608.344 ml 97.5 ml Free Water 300 ml 200 ml IV Total 861.656 ml 522.5 ml Tube Feeding 405 ml Other 165 ml Output Urine Total 370 ml 395 ml Stool Total 1400 ml 800 ml 2D Echo: LVEF 55%, D-shaped septum due to RV pressure overload, Massive RA/RV size. Laboratory Tests Test 05/22/18 04:00 05/22/18 06:00 05/22/18 10:08 05/22/18 14:23 White Blood Count 13.5 K/UL (4.8-10.8) H Red Blood Count 4.85 M/UL (4.20-5.40) Hemoglobin 12.0 G/DL (12.0-16.0) Hematocrit 41.1 % (37.0-47.0) Mean Corpuscular Volume 85 FL (80-99) Mean Corpuscular Hemoglobin 24.8 PG (27.0-31.0) L Mean Corpuscular Hemoglobin Concent 29.3 G/DL (32.0-36.0) L Red Cell Distribution Width 19.4 % (11.6-14.8) H Platelet Count 229 K/UL (150-450) Mean Platelet Volume 9.8 FL (6.5-10.1) Neutrophils (%) (Auto) 83.5 % (45.0-75.0) H Lymphocytes (%) (Auto) 5.0 % (20.0-45.0) L Monocytes (%) (Auto) 7.1 % (1.0-10.0) Eosinophils (%) (Auto) 1.6 % (0.0-3.0) Basophils (%) (Auto) 2.8 % (0.0-2.0) H Sodium Level 152 MMOL/L (136-145) H Potassium Level 3.5 MMOL/L (3.5-5.1) Chloride Level 117 MMOL/L (98-107) H Carbon Dioxide Level 26 MMOL/L (21-32) Anion Gap 9 mmol/L (5-15) Blood Urea Nitrogen 54 mg/dL (7-18) H Creatinine 1.6 MG/DL (0.55-1.30) H Estimat Glomerular Filtration Rate 39.3 mL/min (>60) Glucose Level 105 MG/DL (74-106) Calcium Level 9.2 MG/DL (8.5-10.1) Phosphorus Level 2.6 MG/DL (2.5-4.9) Magnesium Level 2.2 MG/DL (1.8-2.4) Total Bilirubin 1.3 MG/DL (0.2-1.0) H Direct Bilirubin 1.0 MG/DL (0.0-0.3) H Aspartate Amino Transf (AST/SGOT) 40 U/L (15-37) H Alanine Aminotransferase (ALT/SGPT) 8 U/L (12-78) L Alkaline Phosphatase 239 U/L (46-116) H Total Protein 6.3 G/DL (6.4-8.2) L Albumin 2.1 G/DL (3.4-5.0) L Ammonia 26 umol/L (11-32) Arterial Blood pH 7.300 (7.350-7.450) 7.296 (7.350-7.450) Arterial Blood Partial Pressure CO2 55.0 mmHg (35.0-45.0) H 50.8 mmHg (35.0-45.0) H Arterial Blood Partial Pressure O2 60.2 mmHg (75.0-100.0) L 109.0 mmHg (75.0-100.0) H Arterial Blood HCO3 26.5 mmol/L (22.0-26.0) H 24.2 mmol/L (22.0-26.0) Arterial Blood Oxygen Saturation 92.2 % (95-100) L 97.6 % (95-100) Arterial Blood Base Excess -0.8 (-2-2) -2.7 (-2-2) L Aditya Test Positive Positive Microbiology Date/Time Source Procedure Growth Status 05/21/18 11:51 Sputum Gram Stain Pending Resulted 05/21/18 11:51 Sputum Sputum Culture - Preliminary NO GROWTH Resulted Objective HEENT: Atraumatic and normocephalic. Anicteric. Pupils are equal, round, and reactive to light and accommodation. Extraocular muscles intact. NECK: Cannot be assessed due to positive inspiratory pressure. No carotid bruit. Carotid upstroke is 2+ bilaterally. CVS: Normal S1 and S2. Regular rate and rhythm. RV heave, No murmurs, gallops , or rubs. LUNGS: Diminished breath sounds in both lungs with rhonchi bilaterally. ABDOMEN: Soft, nontender, and nondistended. No hepatosplenomegaly. Positive bowel sounds. EXTREMITIES: No evidence of edema, clubbing, or cyanosis. There is venous stasis of lower extremities with associated ulceration. Justice Erickson MD May 22, 2018 23:56
[2018-05-23] VITALS (30 sets, daily range): BP systolic 97–128; BP diastolic 68–95
--- NOTE | 2018-05-23 02:18 | NUR ---
NURSE NOTES: Wound treatment done tolerated well.
--- NOTE | 2018-05-23 04:00 | NUR ---
NURSE NOTES: Bed bath given tolerated well. Oral care done. Suctioned as needed.
--- NOTE | 2018-05-23 05:10 | NUR ---
NURSE NOTES: Fentanyl drip Titrated off. Held feeding tube possible extubation today, Patient aware. patient no s/s of acute distress noted. Will continue to monitor.
[2018-05-23] MEDS: NovoLOG Insulin Flexpen SUBQ SCH ×5 (05:30→23:32)
[2018-05-23] MEDS: Lactulose 10gm/15ml UDC NG SCH ×2 (06:19→13:52)
[2018-05-23 07:02] LABS: EOSINOPHILS % (AUTO) 1.8 % (0.0-3.0); HEMATOCRIT 40.2 % (37.0-47.0); HEMOGLOBIN 11.7 G/DL (12.0-16.0); LYMPHOCYTES % (AUTO) 11.9 % (20.0-45.0); MEAN CORPUSCULAR VOLUME 85 FL (80-99); MONOCYTES % (AUTO) 5.1 % (1.0-10.0); NEUTROPHILS % (AUTO) 80.2 % (45.0-75.0); PLATELET COUNT 212 K/UL (150-450); RED BLOOD COUNT 4.72 M/UL (4.20-5.40); RED CELL DISTRIBUTION WIDTH 19.4 % (11.6-14.8); WHITE BLOOD COUNT 11.1 K/UL (4.8-10.8)
--- NOTE | 2018-05-23 07:10 | NUR ---
NURSE NOTES: Patient VS stable at this time. Patient has anxiety at this time and is asking for water. I put some water on an sponge that is used for oral cleaning. Patient has an ETT 7.5 and 24cm at the lip line. Patient is on ET tube to ventilator setting of AC 18, TV 550, FiO2 40%, and PEEP 5. Patient is to be weened off of the ventilator today. Patient has a fentanyl drip with setting of 2.5mL/hr that is held at this time for weening. Patient has a rental tube that is patent and draining at this time. Patient has an OG tube that is patent with feeding order of glucerna 1.5 at 45mL/hr at this time. Feeding is held at this time for weening. Patient has a neff for urine retention at this time that is patent, asymptomatic and draining orange tinted urine due to medication. Patient has bilateral leg ulcers that are chronic. Patient also has an old skin tear on her arm and a blister on her right toe that opened. Will monitor. Patient has a left upper arm PICC that is patent and saline locked at this time and asymptomatic. Patient bed in low position with bed alarm on and call light in reach at this time.
--- NOTE | 2018-05-23 07:10 | NUR ---
HAND-OFF: Report given to Padmini Almonte RN.Patient off Fentanyl drip and help OGT feeding for possible weaning today. Patient resting no s/s of acute distress noted.
[2018-05-23 07:24] LABS: ANION GAP 10 mmol/L (5-15); BLOOD UREA NITROGEN 51 mg/dL (7-18); CALCIUM 9.2 MG/DL (8.5-10.1); CARBON DIOXIDE 25 MMOL/L (21-32); CHLORIDE 118 MMOL/L (98-107); CREATININE 1.5 MG/DL (0.55-1.30); POTASSIUM 3.7 MMOL/L (3.5-5.1); SODIUM 153 MMOL/L (136-145)
--- NOTE | 2018-05-23 08:19 | General Progress Note ---
Assessment/Plan Problem List: (1) Leukocytosis (leucocytosis) ICD Codes: D72.829 - Elevated white blood cell count, unspecified SNOMED: 825793761, 587176613 (2) Elevated transaminase level ICD Codes: R74.0 - Nonspecific elevation of levels of transaminase and lactic acid dehydrogenase [LDH] SNOMED: 987034077 (3) HTN (hypertension) ICD Codes: I10 - HTN (hypertension) SNOMED: 53376348 (4) COPD (chronic obstructive pulmonary disease) ICD Codes: J44.9 - Chronic obstructive pulmonary disease, unspecified SNOMED: 96418217 (5) DM (diabetes mellitus) ICD Codes: E11.9 - DM (diabetes mellitus) SNOMED: 99883682 Assessment/Plan OB stool negative x2 hepatitis panel negative abdominal US reviewed >> - Ascites - Borderline hepatomegaly - Thick-walled gallbladder, likely in part artifact of nondistention, and in part due to hemodynamic factors causing the ascites. No definite gallstones. Acute cholecystitis not completely excludable, due to the wall thickening, and hepatobiliary scan should be considered if there is high clinical suspicion for such. - Negative for dilated ducts - To and fro flow within the main portal vein, could indicate portal hypertension HIDA and paracentesis when respiratory status stabilizes TF on hold for possible extubation cont lactulose Xifaxan Wean off of sedatives and narcotics monitor H&H, prn transfusions rectal tube bowel regime ppi fu labs will consider endoscopy pending work up, but will require cardiac clearance given elevated troponin levels Subjective ROS Limited/Unobtainable: No Allergies: Coded Allergies: ASPIRIN (Verified Allergy, Intermediate, Hives, 01/06/13) PENICILLINS (Verified Allergy, Intermediate, Hives, 01/06/13) Objective Last 24 Hour Vital Signs Date Time Temp Pulse Resp B/P (MAP) Pulse Ox O2 Delivery O2 Flow Rate FiO2 05/23/18 07:30 65 5 101/71 (81) 96 05/23/18 07:30 81 22 30 05/23/18 07:00 66 0 104/89 (94) 97 05/23/18 06:30 67 8 105/85 (92) 97 05/23/18 06:30 67 8 105/85 (92) 97 05/23/18 06:00 66 19 107/84 (92) 97 05/23/18 05:30 68 19 111/87 (95) 96 05/23/18 05:22 76 19 30 05/23/18 05:00 62 18 108/68 (81) 96 05/23/18 05:00 19 Endotracheal Tube 40 05/23/18 04:30 70 18 108/89 (95) 97 05/23/18 04:00 40 05/23/18 04:00 98.3 69 17 107/87 (94) 97 05/23/18 04:00 19 Endotracheal Tube 40 05/23/18 04:00 66 05/23/18 04:00 Mechanical Ventilator 05/23/18 03:37 75 18 30 05/23/18 03:00 62 13 101/81 (88) 97 05/23/18 03:00 12 Endotracheal Tube 40 05/23/18 02:00 64 12 100/80 (87) 97 05/23/18 02:00 12 Endotracheal Tube 40 05/23/18 01:30 62 14 104/80 (88) 98 05/23/18 01:19 73 18 30 05/23/18 01:00 14 Endotracheal Tube 40 05/23/18 01:00 63 18 97/83 (88) 98 05/23/18 00:30 67 3 114/86 (95) 98 05/23/18 00:00 Mechanical Ventilator 05/23/18 00:00 16 Endotracheal Tube 40 05/23/18 00:00 40 05/23/18 00:00 63 05/23/18 00:00 98.4 63 17 101/72 (82) 98 05/22/18 23:37 61 18 30 05/22/18 23:30 62 18 104/80 (88) 100 05/22/18 23:00 70 17 103/79 (87) 99 05/22/18 23:00 18 Endotracheal Tube 40 05/22/18 22:30 63 18 102/75 (84) 98 05/22/18 22:00 18 Endotracheal Tube 40 05/22/18 22:00 62 18 100/75 (83) 99 05/22/18 21:30 59 17 99 05/22/18 21:12 75 18 40 05/22/18 21:00 18 Endotracheal Tube 40 05/22/18 21:00 71 18 102/56 (71) 99 05/22/18 20:30 63 18 97/66 (76) 98 05/22/18 20:00 40 05/22/18 20:00 18 Endotracheal Tube 40 05/22/18 20:00 Mechanical Ventilator 05/22/18 20:00 98.0 66 18 105/71 (82) 98 05/22/18 20:00 61 05/22/18 19:30 68 18 105/76 (86) 98 05/22/18 19:17 40 05/22/18 19:15 72 18 50 05/22/18 19:00 68 18 104/75 (85) 99 05/22/18 19:00 18 Mechanical Ventilator 50 05/22/18 18:39 98.8 05/22/18 18:10 117/89 05/22/18 18:09 Mechanical Ventilator 50 05/22/18 18:00 65 18 117/89 (98) 99 05/22/18 17:00 18 Mechanical Ventilator 50 05/22/18 17:00 74 20 115/92 (100) 98 05/22/18 16:35 74 18 50 05/22/18 16:13 97.8 71 18 109/83 (92) 99 05/22/18 16:00 Mechanical Ventilator 05/22/18 16:00 18 Mechanical Ventilator 50 05/22/18 16:00 82 05/22/18 16:00 50 05/22/18 15:00 75 20 104/85 (91) 99 05/22/18 15:00 18 Mechanical Ventilator 50 05/22/18 14:30 79 19 50 05/22/18 14:00 18 Mechanical Ventilator 50 05/22/18 14:00 81 20 117/81 (93) 98 05/22/18 13:25 85 25 50 05/22/18 13:00 18 Mechanical Ventilator 50 05/22/18 13:00 79 16 113/82 (92) 98 05/22/18 12:41 14 Mechanical Ventilator 50 05/22/18 12:09 98.4 88 23 128/102 (111) 99 05/22/18 12:00 88 05/22/18 12:00 50 05/22/18 12:00 Mechanical Ventilator 05/22/18 12:00 21 Mechanical Ventilator 50 05/22/18 11:00 84 12 117/91 (100) 98 05/22/18 10:53 80 22 50 05/22/18 10:00 81 12 111/77 (88) 100 05/22/18 09:07 83 24 40 05/22/18 09:07 97 05/22/18 09:00 80 13 116/86 (96) 98 05/22/18 08:46 115/94 Intake and Output 05/22/18 05/23/18 19:00 07:00 Intake Total 1372.5 ml 1045.0 ml Output Total 780 ml 1330 ml Balance 592.5 ml -285.0 ml Free Water 200 ml IV Total 847.5 ml 245.0 ml Tube Feeding 225 ml 450 ml Other 300 ml 150 ml Output Urine Total 280 ml 330 ml Stool Total 500 ml 1000 ml Laboratory Tests 05/22/18 10:08: Arterial Blood pH 7.300L, Arterial Blood Partial Pressure CO2 55.0H, Arterial Blood Partial Pressure O2 60.2L, Arterial Blood HCO3 26.5H, Arterial Blood Oxygen Saturation 92.2L, Arterial Blood Base Excess -0.8, Aditya Test Positive 05/22/18 14:23: Arterial Blood pH 7.296L, Arterial Blood Partial Pressure CO2 50.8H, Arterial Blood Partial Pressure O2 109.0H, Arterial Blood HCO3 24.2, Arterial Blood Oxygen Saturation 97.6, Arterial Blood Base Excess -2.7L, Aditya Test Positive 05/23/18 04:00: Sodium Level 153H, Potassium Level 3.7, Chloride Level 118H, Carbon Dioxide Level 25, Anion Gap 10, Blood Urea Nitrogen 51H, Creatinine 1.5H, Estimat Glomerular Filtration Rate 42.3, Glucose Level 93, Calcium Level 9.2, Magnesium Level 2.5H 05/23/18 05:00: White Blood Count 11.1H, Red Blood Count 4.72, Hemoglobin 11.7L, Hematocrit 40.2 , Mean Corpuscular Volume 85, Mean Corpuscular Hemoglobin 24.8L, Mean Corpuscular Hemoglobin Concent 29.2L, Red Cell Distribution Width 19.4H, Platelet Count 212, Mean Platelet Volume 9.6, Neutrophils (%) (Auto) 80.2H, Lymphocytes (%) (Auto) 11.9L, Monocytes (%) (Auto) 5.1, Eosinophils (%) (Auto) 1.8, Basophils (%) (Auto) 1.0 Height (Feet): 5 Height (Inches): 3.00 Weight (Pounds): 324 General Appearance: alert EENT: normal ENT inspection Neck: supple Cardiovascular: normal rate Respiratory/Chest: decreased breath sounds Abdomen: normal bowel sounds, non tender, soft Extremities: non-tender Robert Paul MD May 23, 2018 08:19
[2018-05-23] MEDS: Doxycycline Hyclate 100 MG in D5W 110 ML IV SCH (08:42)
[2018-05-23] MEDS: [UNRECOGNIZED DRUG - OTHER] IVPB SCH ×8 (08:42→23:32)
[2018-05-23] MEDS: AZTREONAM IVPB SCH ×8 (08:42→23:32)
[2018-05-23] MEDS: Nitroglycerin Patch 0.4mg TDERMAL SCH (08:43)
[2018-05-23] MEDS: Betadine 4oz Bottle TOPIC SCH ×2 (08:43→18:46)
[2018-05-23] MEDS: Ascorbic Acid 500mg tab NG SCH ×2 (08:45→18:45)
[2018-05-23] MEDS: Pantoprazole Inj IVP SCH ×2 (08:54→20:45)
--- NOTE | 2018-05-23 09:30 | NUR ---
NURSE NOTES: Patient is on SIMV mode with pressure support 8 at this time. Patient is anxious and needs frequent suction. Patient's blood gas result was improved from previous. MD will be notified and asked whether the patient can be extubated today or tomorrow. Patient VS stable at this time. Addendum: 05/23/18 at 1639 by Padmini Almonte RN Patient is on CPAP not SIMV with pressure support 8.
--- NOTE | 2018-05-23 10:08 | Diagnostic Imaging Report ---
EXAM: XR Chest, 1 View CLINICAL HISTORY: COUGH TECHNIQUE: Frontal view of the chest. COMPARISON: Chest x-ray 05/22/18 7 57 FINDINGS: Lungs: Slightly improved vascular congestion. Slightly improved right lower lung opacity. Pleural space: Stable small right pleural effusion. No pneumothorax. Heart: Cardiomegaly. Mediastinum: Unremarkable. Bones/joints: Unremarkable. Tubes, lines and devices: Stable endotracheal tube, PICC line and NG tube. IMPRESSION: 1. Slightly improved vascular congestion and right lower lung opacity. 2. Stable small right pleural effusion.
--- NOTE | 2018-05-23 11:30 | NUR ---
NURSE NOTES: Patient is anxious at this time. Patient is on SIMV mode with pressure support of 8. Patient wants the ETT removed at this time. has not given the order to extubate at this time. Patient bed in low position with bed alarm on and restraints in place. Patient VS Stable at this time. Addendum: 05/23/18 at 1639 by Padmini Almonte RN Patient is on CPAP not SIMV with pressure support 8.
--- NOTE | 2018-05-23 13:00 | NUR ---
NURSE NOTES: Called and left a message for Dr Lu at this time asking whether the patient can be extubated today. She is tolerating CPAP with pressure support 8 and her ABG has improved. Awaiting call back.
--- NOTE | 2018-05-23 13:30 | NUR ---
NURSE NOTES: Patient vital signs stable at this time. Patient on SIMV mode with pressure support of 8 and tolerating well. Patient anxious with the ETT in place. Patient remains on restraint. MD has not given order to extubate at this time. Will follow up with MD. Addendum: 05/23/18 at 1639 by Padmini Almonte RN Patient is on CPAP not SIMV with pressure support 8.
--- NOTE | 2018-05-23 13:35 | Infectious Diseases Prog Note ---
Assessment/Plan Problems: (1) Leukocytosis (leucocytosis) Assessment & Plan: with gram positive cocci bacteremia, await final blood culture results , may need to remove central line (2) Bilateral lower leg cellulitis Assessment & Plan: wound culture grew klibsella oxytoca, and Sphingomonas paucimobilis , continue doxycycline and aztreonam empirically with local wounds care . patient has refused MRI and CT of the legs to rule out deep abscess or osteomyelitis. await on bone scan of both legs once clinically stable . 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 (3) Nonhealing ulcer of left lower extremity Assessment & Plan: wound culture grew klebsiella oxytoca and Sphingomonas paucimobilis, now on aztreonam and doxycycline , continue local wound care and dressings change as per wound care service as per plastic surgery recommendations (4) CKD (chronic kidney disease) Assessment & Plan: avoid nephrotoxics , renally dosed antibiotics as per pharmacy (5) DM (diabetes mellitus) Assessment & Plan: recommend tight glycemic control to keep blood glucose between 100-140 (6) Acute encephalopathy Assessment & Plan: suspect metabolic with high ammonia level, continue lactulose , consult neurology if no improvement (7) Acute hypoxemic respiratory failure Assessment & Plan: due to the above , intubated on mechanical ventilation, pulmonary is following, on weaning trials Subjective Allergies: Coded Allergies: ASPIRIN (Verified Allergy, Intermediate, Hives, 01/06/13) PENICILLINS (Verified Allergy, Intermediate, Hives, 01/06/13) Subjective she was still intubated on mechanical ventilation in ICU , awake and responsive , failed weaning trials , afebrile, has low UOP , not on pressor . retaining fluids Objective Vital Signs Last 24 Hour Vital Signs Date Time Temp Pulse Resp B/P (MAP) Pulse Ox O2 Delivery O2 Flow Rate FiO2 05/23/18 13:02 84 23 30 05/23/18 12:00 40 05/23/18 12:00 93 05/23/18 11:16 80 18 30 05/23/18 10:00 85 20 113/86 (95) 96 05/23/18 09:50 81 22 30 05/23/18 09:50 98 05/23/18 09:00 78 19 116/91 (99) 97 05/23/18 08:43 120/92 05/23/18 08:00 Mechanical Ventilator 05/23/18 08:00 40 1/27/19 08:00 98.1 78 19 109/76 (87) 95 05/23/18 08:00 75 05/23/18 07:30 65 5 101/71 (81) 96 05/23/18 07:30 81 22 30 05/23/18 07:00 66 0 104/89 (94) 97 05/23/18 06:30 67 8 105/85 (92) 97 05/23/18 06:30 67 8 105/85 (92) 97 05/23/18 06:00 66 19 107/84 (92) 97 05/23/18 05:30 68 19 111/87 (95) 96 05/23/18 05:22 76 19 30 05/23/18 05:00 62 18 108/68 (81) 96 05/23/18 05:00 19 Endotracheal Tube 40 05/23/18 04:30 70 18 108/89 (95) 97 05/23/18 04:00 40 05/23/18 04:00 98.3 69 17 107/87 (94) 97 05/23/18 04:00 19 Endotracheal Tube 40 05/23/18 04:00 66 05/23/18 04:00 Mechanical Ventilator 05/23/18 03:37 75 18 30 05/23/18 03:00 62 13 101/81 (88) 97 05/23/18 03:00 12 Endotracheal Tube 40 05/23/18 02:00 64 12 100/80 (87) 97 05/23/18 02:00 12 Endotracheal Tube 40 05/23/18 01:30 62 14 104/80 (88) 98 05/23/18 01:19 73 18 30 05/23/18 01:00 14 Endotracheal Tube 40 05/23/18 01:00 63 18 97/83 (88) 98 05/23/18 00:30 67 3 114/86 (95) 98 05/23/18 00:00 Mechanical Ventilator 05/23/18 00:00 16 Endotracheal Tube 40 05/23/18 00:00 40 05/23/18 00:00 63 05/23/18 00:00 98.4 63 17 101/72 (82) 98 05/22/18 23:37 61 18 30 05/22/18 23:30 62 18 104/80 (88) 100 05/22/18 23:00 70 17 103/79 (87) 99 05/22/18 23:00 18 Endotracheal Tube 40 05/22/18 22:30 63 18 102/75 (84) 98 05/22/18 22:00 18 Endotracheal Tube 40 05/22/18 22:00 62 18 100/75 (83) 99 05/22/18 21:30 59 17 99 05/22/18 21:12 75 18 40 05/22/18 21:00 18 Endotracheal Tube 40 05/22/18 21:00 71 18 102/56 (71) 99 05/22/18 20:30 63 18 97/66 (76) 98 05/22/18 20:00 40 05/22/18 20:00 18 Endotracheal Tube 40 05/22/18 20:00 Mechanical Ventilator 05/22/18 20:00 98.0 66 18 105/71 (82) 98 05/22/18 20:00 61 05/22/18 19:30 68 18 105/76 (86) 98 05/22/18 19:17 40 05/22/18 19:15 72 18 50 05/22/18 19:00 68 18 104/75 (85) 99 05/22/18 19:00 18 Mechanical Ventilator 50 05/22/18 18:39 98.8 05/22/18 18:10 117/89 05/22/18 18:09 Mechanical Ventilator 50 05/22/18 18:00 65 18 117/89 (98) 99 05/22/18 17:00 18 Mechanical Ventilator 50 05/22/18 17:00 74 20 115/92 (100) 98 05/22/18 16:35 74 18 50 05/22/18 16:13 97.8 71 18 109/83 (92) 99 05/22/18 16:00 Mechanical Ventilator 05/22/18 16:00 18 Mechanical Ventilator 50 05/22/18 16:00 82 05/22/18 16:00 50 05/22/18 15:00 75 20 104/85 (91) 99 05/22/18 15:00 18 Mechanical Ventilator 50 05/22/18 14:30 79 19 50 05/22/18 14:00 18 Mechanical Ventilator 50 05/22/18 14:00 81 20 117/81 (93) 98 Height (Feet): 5 Height (Inches): 3.00 Weight (Pounds): 324 Microbiology Date/Time Source Procedure Growth Status 05/21/18 16:20 Blood Blood Culture - Preliminary NO GROWTH AFTER 24 HOURS Resulted 05/21/18 16:00 Blood Blood Culture - Preliminary Gram Positive Cocci Resulted 05/21/18 11:51 Sputum Gram Stain - Final Complete 05/21/18 11:51 Sputum Sputum Culture - Final NORMAL UPPER RESPIRATORY EZEQUIEL PRESENT Complete Laboratory Tests Test 05/22/18 14:23 05/23/18 04:00 05/23/18 05:00 05/23/18 09:21 Arterial Blood pH 7.296 (7.350-7.450) 7.329 (7.350-7.450) Arterial Blood Partial Pressure CO2 50.8 mmHg (35.0-45.0) H 47.2 mmHg (35.0-45.0) H Arterial Blood Partial Pressure O2 109.0 mmHg (75.0-100.0) H 72.6 mmHg (75.0-100.0) L Arterial Blood HCO3 24.2 mmol/L (22.0-26.0) 24.3 mmol/L (22.0-26.0) Arterial Blood Oxygen Saturation 97.6 % (95-100) 93.6 % (95-100) L Arterial Blood Base Excess -2.7 (-2-2) L -2.0 (-2-2) Aditya Test Positive Positive Sodium Level 153 MMOL/L (136-145) H Potassium Level 3.7 MMOL/L (3.5-5.1) Chloride Level 118 MMOL/L (98-107) H Carbon Dioxide Level 25 MMOL/L (21-32) Anion Gap 10 mmol/L (5-15) Blood Urea Nitrogen 51 mg/dL (7-18) H Creatinine 1.5 MG/DL (0.55-1.30) H Estimat Glomerular Filtration Rate 42.3 mL/min (>60) Glucose Level 93 MG/DL (74-106) Calcium Level 9.2 MG/DL (8.5-10.1) Magnesium Level 2.5 MG/DL (1.8-2.4) H White Blood Count 11.1 K/UL (4.8-10.8) H Red Blood Count 4.72 M/UL (4.20-5.40) Hemoglobin 11.7 G/DL (12.0-16.0) L Hematocrit 40.2 % (37.0-47.0) Mean Corpuscular Volume 85 FL (80-99) Mean Corpuscular Hemoglobin 24.8 PG (27.0-31.0) L Mean Corpuscular Hemoglobin Concent 29.2 G/DL (32.0-36.0) L Red Cell Distribution Width 19.4 % (11.6-14.8) H Platelet Count 212 K/UL (150-450) Mean Platelet Volume 9.6 FL (6.5-10.1) Neutrophils (%) (Auto) 80.2 % (45.0-75.0) H Lymphocytes (%) (Auto) 11.9 % (20.0-45.0) L Monocytes (%) (Auto) 5.1 % (1.0-10.0) Eosinophils (%) (Auto) 1.8 % (0.0-3.0) Basophils (%) (Auto) 1.0 % (0.0-2.0) Current Medications Medications (Trade) Dose Ordered Sig/Toya Route PRN Reason Start Time Stop Time Status Last Admin Dose Admin Allopurinol (Allopurinol) 300 mg DAILY NG 05/19/18 13:00 06/18/18 12:59 05/23/18 08:54 Ascorbic Acid (Vitamin C) 500 mg TWICE A DAY NG 05/18/18 09:00 06/15/18 17:59 05/23/18 08:45 Atorvastatin Calcium (Lipitor) 20 mg BEDTIME ORAL 05/17/18 21:00 06/13/18 20:59 05/22/18 20:50 Aztreonam 2 gm/ Dextrose 110 ml @ 220 mls/hr Q8HR@0000,0800,1600 IVPB 05/17/18 16:00 05/24/18 23:59 05/23/18 08:42 Chlorhexidine Gluconate (Romy-Hex 2%) 1 applic DAILY@2000 TOPIC 05/14/18 20:00 06/13/18 19:59 05/22/18 20:50 Clopidogrel Bisulfate (Plavix) 75 mg DAILY NG 05/18/18 09:00 06/14/18 08:59 05/23/18 08:47 Dextrose (Dextrose 50%) 25 ml Q30M PRN IV Hypoglycemia 05/13/18 21:00 06/11/18 16:59 Dextrose (Dextrose 50%) 50 ml Q30M PRN IV Hypoglycemia 05/13/18 21:00 06/11/18 16:59 Dopamine HCl/ Dextrose 250 ml @ 0 mls/hr Q24H IV 05/15/18 19:00 06/14/18 18:59 05/16/18 18:05 Doxycycline Hyclate 100 mg/ Dextrose 110 ml @ 110 mls/hr Q12HR IV 05/19/18 21:00 05/26/18 20:59 05/23/18 08:42 Fentanyl Citrate 1000 mcg/Sodium Chloride 100 ml @ 0 mls/hr Q24H IV 05/21/18 13:00 05/28/18 12:59 05/22/18 18:09 Insulin Aspart (NovoLOG) Q6HR SUBQ 05/18/18 13:00 06/11/18 12:59 05/20/18 05:04 Lactulose (Cephulac) 30 gm Q8HR NG 05/14/18 14:00 06/12/18 17:59 05/23/18 06:19 Midodrine (Pro-Amatine) 5 mg THREE TIMES A DAY NG 05/20/18 18:00 06/17/18 12:59 05/23/18 08:45 Multivitamins (Multivitamins) 1 tab DAILY ORAL 05/18/18 09:00 06/16/18 08:59 05/23/18 08:43 Nitroglycerin (Ntg) 1 patch Q24H TDERMAL 05/15/18 09:00 06/14/18 08:59 05/23/18 08:43 Pantoprazole (Protonix) 40 mg EVERY 12 HOURS IVP 05/14/18 21:00 06/13/18 20:59 05/23/18 08:54 Povidone Iodine (Betadine Gretchen) 1 applic BID TOPIC 05/16/18 09:00 06/15/18 08:59 05/23/18 08:43 Rifaximin (Xifaxan) 550 mg EVERY 12 HOURS NG 05/18/18 09:00 05/27/18 23:59 05/23/18 08:48 Sodium Chloride 500 ml @ 999 mls/hr Q31M PRN IV For hypotension 05/14/18 01:30 06/13/18 01:29 05/21/18 19:22 Juice Wilkerson M.D. May 23, 2018 13:35
--- NOTE | 2018-05-23 14:30 | NUR ---
NURSE NOTES: Patient VS stable at this time. Patient back on AC mode at this time with setting of AC 18, TV 550, FiO2 40%, and PEEP 5. Patient was successful with the weening trial, but she became to anxious on the SIMV setting. Patient reports that she is comfortable at this time. Patient bed in low position with restraints in place.
--- NOTE | 2018-05-23 15:30 | NUR ---
NURSE NOTES: Spoke with Doctor Alexandr regarding the patient's ammonia level which is back within normal limits at 26 at this time. He ordered for the lactulose to be discontinued.
--- NOTE | 2018-05-23 16:04 | NUR ---
NURSE NOTES: Patient cleaned at this time. Patient bed in low position with bed alarm on and restraints in place. Patient on AC 18, TV 550, FiO2 40%, and PEEP 5 at this time with stable saturation. Patient more comfortable on these settings.
[2018-05-23] MEDS ORDERED: NS 500ML ONE (17:19)
[2018-05-23] MEDS ORDERED: NS 275ml ONE (17:19)
--- NOTE | 2018-05-23 17:33 | Infectious Diseases Prog Note ---
Assessment/Plan Problems: (1) Leukocytosis (leucocytosis) Assessment & Plan: with gram positive cocci bacteremia, await final blood culture results , may need to remove central line. will start vancomycin empirically and renally dosed as per pharmacy (2) Bilateral lower leg cellulitis Assessment & Plan: wound culture grew klibsella oxytoca, and Sphingomonas paucimobilis , continue vancomycin and aztreonam empirically with local wounds care . patient has refused MRI and CT of the legs to rule out deep abscess or osteomyelitis. await on bone scan of both legs once clinically stable . D/W metallurgical analyst (3) Nonhealing ulcer of left lower extremity Assessment & Plan: wound culture grew klebsiella oxytoca and Sphingomonas paucimobilis, now on aztreonam and vancomycin , continue local wound care and dressings change as per wound care service as per plastic surgery recommendations (4) CKD (chronic kidney disease) Assessment & Plan: avoid nephrotoxics , renally dosed antibiotics as per pharmacy (5) DM (diabetes mellitus) Assessment & Plan: recommend tight glycemic control to keep blood glucose between 100-140 (6) Acute encephalopathy Assessment & Plan: suspect metabolic with high ammonia level, continue lactulose , consult neurology if no improvement (7) Acute hypoxemic respiratory failure Assessment & Plan: due to the above , intubated on mechanical ventilation, pulmonary is following, on weaning trials Subjective ROS Limited/Unobtainable: Yes Allergies: Coded Allergies: ASPIRIN (Verified Allergy, Intermediate, Hives, 01/06/13) PENICILLINS (Verified Allergy, Intermediate, Hives, 01/06/13) Subjective she was still intubated on mechanical ventilation in ICU , awake and responsive , afebrile, has low UOP , not on pressor . retaining fluids Objective Vital Signs Last 24 Hour Vital Signs Date Time Temp Pulse Resp B/P (MAP) Pulse Ox O2 Delivery O2 Flow Rate FiO2 05/23/18 17:09 82 24 30 05/23/18 15:00 79 18 112/91 (98) 96 05/23/18 14:40 78 20 30 05/23/18 14:00 82 22 128/91 (103) 94 05/23/18 13:02 84 23 30 05/23/18 13:00 82 21 116/84 (95) 94 05/23/18 12:00 98.5 92 22 107/86 (93) 95 05/23/18 12:00 Mechanical Ventilator 05/23/18 12:00 40 05/23/18 12:00 93 05/23/18 11:16 80 18 30 05/23/18 11:00 87 20 109/95 (100) 95 05/23/18 10:00 85 20 113/86 (95) 96 05/23/18 09:50 81 22 30 05/23/18 09:50 98 05/23/18 09:00 78 19 116/91 (99) 97 05/23/18 08:43 120/92 05/23/18 08:00 Mechanical Ventilator 05/23/18 08:00 40 05/23/18 08:00 98.1 78 19 109/76 (87) 95 05/23/18 08:00 75 05/23/18 07:30 65 5 101/71 (81) 96 05/23/18 07:30 81 22 30 05/23/18 07:00 66 0 104/89 (94) 97 05/23/18 06:30 67 8 105/85 (92) 97 05/23/18 06:30 67 8 105/85 (92) 97 05/23/18 06:00 66 19 107/84 (92) 97 05/23/18 05:30 68 19 111/87 (95) 96 05/23/18 05:22 76 19 30 05/23/18 05:00 62 18 108/68 (81) 96 05/23/18 05:00 19 Endotracheal Tube 40 05/23/18 04:30 70 18 108/89 (95) 97 05/23/18 04:00 40 05/23/18 04:00 98.3 69 17 107/87 (94) 97 05/23/18 04:00 19 Endotracheal Tube 40 05/23/18 04:00 66 05/23/18 04:00 Mechanical Ventilator 05/23/18 03:37 75 18 30 05/23/18 03:00 62 13 101/81 (88) 97 05/23/18 03:00 12 Endotracheal Tube 40 05/23/18 02:00 64 12 100/80 (87) 97 05/23/18 02:00 12 Endotracheal Tube 40 05/23/18 01:30 62 14 104/80 (88) 98 05/23/18 01:19 73 18 30 05/23/18 01:00 14 Endotracheal Tube 40 05/23/18 01:00 63 18 97/83 (88) 98 05/23/18 00:30 67 3 114/86 (95) 98 05/23/18 00:00 Mechanical Ventilator 05/23/18 00:00 16 Endotracheal Tube 40 05/23/18 00:00 40 05/23/18 00:00 63 05/23/18 00:00 98.4 63 17 101/72 (82) 98 05/22/18 23:37 61 18 30 05/22/18 23:30 62 18 104/80 (88) 100 05/22/18 23:00 70 17 103/79 (87) 99 05/22/18 23:00 18 Endotracheal Tube 40 05/22/18 22:30 63 18 102/75 (84) 98 05/22/18 22:00 18 Endotracheal Tube 40 05/22/18 22:00 62 18 100/75 (83) 99 05/22/18 21:30 59 17 99 05/22/18 21:12 75 18 40 05/22/18 21:00 18 Endotracheal Tube 40 05/22/18 21:00 71 18 102/56 (71) 99 05/22/18 20:30 63 18 97/66 (76) 98 05/22/18 20:00 40 05/22/18 20:00 18 Endotracheal Tube 40 05/22/18 20:00 Mechanical Ventilator 05/22/18 20:00 98.0 66 18 105/71 (82) 98 05/22/18 20:00 61 05/22/18 19:30 68 18 105/76 (86) 98 05/22/18 19:17 40 05/22/18 19:15 72 18 50 05/22/18 19:00 68 18 104/75 (85) 99 05/22/18 19:00 18 Mechanical Ventilator 50 05/22/18 18:39 98.8 05/22/18 18:10 117/89 05/22/18 18:09 Mechanical Ventilator 50 05/22/18 18:00 65 18 117/89 (98) 99 Height (Feet): 5 Height (Inches): 3.00 Weight (Pounds): 324 General Appearance: WD/WN, no acute distress HEENT: normocephalic, atraumatic, anicteric, mucous membranes moist, PERRL, EOMI, pharynx normal, supple, no JVD Respiratory/Chest: chest wall non-tender, no respiratory distress, no accessory muscle use, decreased breath sounds, crackles/rales Cardiovascular: normal peripheral pulses, normal rate, regular rhythm, no gallop/murmur, no JVD Abdomen: normal bowel sounds, soft, non tender, no organomegaly, non distended , no mass, no scars Extremities: no cyanosis, no clubbing Skin: no rash, no lesions, ulcers Neurologic/Psychiatric: alert, responsive Lymphatic: no neck adenopathy, no groin adenopathy Musculoskeletal: normal muscle bulk, no effusion Microbiology Date/Time Source Procedure Growth Status 05/21/18 16:20 Blood Blood Culture - Preliminary NO GROWTH AFTER 24 HOURS Resulted 05/21/18 16:00 Blood Blood Culture - Preliminary Gram Positive Cocci Resulted 05/21/18 11:51 Sputum Gram Stain - Final Complete 05/21/18 11:51 Sputum Sputum Culture - Final NORMAL UPPER RESPIRATORY EZEQUIEL PRESENT Complete Laboratory Tests Test 05/23/18 04:00 05/23/18 05:00 05/23/18 09:21 Sodium Level 153 MMOL/L (136-145) H Potassium Level 3.7 MMOL/L (3.5-5.1) Chloride Level 118 MMOL/L (98-107) H Carbon Dioxide Level 25 MMOL/L (21-32) Anion Gap 10 mmol/L (5-15) Blood Urea Nitrogen 51 mg/dL (7-18) H Creatinine 1.5 MG/DL (0.55-1.30) H Estimat Glomerular Filtration Rate 42.3 mL/min (>60) Glucose Level 93 MG/DL (74-106) Calcium Level 9.2 MG/DL (8.5-10.1) Magnesium Level 2.5 MG/DL (1.8-2.4) H White Blood Count 11.1 K/UL (4.8-10.8) H Red Blood Count 4.72 M/UL (4.20-5.40) Hemoglobin 11.7 G/DL (12.0-16.0) L Hematocrit 40.2 % (37.0-47.0) Mean Corpuscular Volume 85 FL (80-99) Mean Corpuscular Hemoglobin 24.8 PG (27.0-31.0) L Mean Corpuscular Hemoglobin Concent 29.2 G/DL (32.0-36.0) L Red Cell Distribution Width 19.4 % (11.6-14.8) H Platelet Count 212 K/UL (150-450) Mean Platelet Volume 9.6 FL (6.5-10.1) Neutrophils (%) (Auto) 80.2 % (45.0-75.0) H Lymphocytes (%) (Auto) 11.9 % (20.0-45.0) L Monocytes (%) (Auto) 5.1 % (1.0-10.0) Eosinophils (%) (Auto) 1.8 % (0.0-3.0) Basophils (%) (Auto) 1.0 % (0.0-2.0) Arterial Blood pH 7.329 (7.350-7.450) Arterial Blood Partial Pressure CO2 47.2 mmHg (35.0-45.0) H Arterial Blood Partial Pressure O2 72.6 mmHg (75.0-100.0) L Arterial Blood HCO3 24.3 mmol/L (22.0-26.0) Arterial Blood Oxygen Saturation 93.6 % (95-100) L Arterial Blood Base Excess -2.0 (-2-2) Aditya Test Positive Current Medications Medications (Trade) Dose Ordered Sig/Toya Route PRN Reason Start Time Stop Time Status Last Admin Dose Admin Allopurinol (Allopurinol) 300 mg DAILY NG 05/19/18 13:00 06/18/18 12:59 05/23/18 08:54 Ascorbic Acid (Vitamin C) 500 mg TWICE A DAY NG 05/18/18 09:00 06/15/18 17:59 05/23/18 08:45 Atorvastatin Calcium (Lipitor) 20 mg BEDTIME ORAL 05/17/18 21:00 06/13/18 20:59 05/22/18 20:50 Aztreonam 2 gm/ Dextrose 110 ml @ 220 mls/hr Q8HR@0000,0800,1600 IVPB 05/17/18 16:00 05/24/18 23:59 05/23/18 16:42 Chlorhexidine Gluconate (Romy-Hex 2%) 1 applic DAILY@2000 TOPIC 05/14/18 20:00 06/13/18 19:59 05/22/18 20:50 Clopidogrel Bisulfate (Plavix) 75 mg DAILY NG 05/18/18 09:00 06/14/18 08:59 05/23/18 08:47 Dextrose (Dextrose 50%) 25 ml Q30M PRN IV Hypoglycemia 05/13/18 21:00 06/11/18 16:59 Dextrose (Dextrose 50%) 50 ml Q30M PRN IV Hypoglycemia 05/13/18 21:00 06/11/18 16:59 Dopamine HCl/ Dextrose 250 ml @ 0 mls/hr Q24H IV 05/15/18 19:00 06/14/18 18:59 05/16/18 18:05 Doxycycline Hyclate 100 mg/ Dextrose 110 ml @ 110 mls/hr Q12HR IV 05/19/18 21:00 05/26/18 20:59 05/23/18 08:42 Fentanyl Citrate 1000 mcg/Sodium Chloride 100 ml @ 0 mls/hr Q24H IV 05/21/18 13:00 05/28/18 12:59 05/22/18 18:09 Insulin Aspart (NovoLOG) Q6HR SUBQ 05/18/18 13:00 06/11/18 12:59 05/20/18 05:04 Lactulose (Cephulac) 30 gm Q8HR NG 05/14/18 14:00 06/12/18 17:59 05/23/18 06:19 Midodrine (Pro-Amatine) 5 mg THREE TIMES A DAY NG 05/20/18 18:00 06/17/18 12:59 05/23/18 13:53 Multivitamins (Multivitamins) 1 tab DAILY ORAL 05/18/18 09:00 06/16/18 08:59 05/23/18 08:43 Nitroglycerin (Ntg) 1 patch Q24H TDERMAL 05/15/18 09:00 06/14/18 08:59 05/23/18 08:43 Pantoprazole (Protonix) 40 mg EVERY 12 HOURS IVP 05/14/18 21:00 06/13/18 20:59 05/23/18 08:54 Povidone Iodine (Betadine Gretchen) 1 applic BID TOPIC 05/16/18 09:00 06/15/18 08:59 05/23/18 08:43 Rifaximin (Xifaxan) 550 mg EVERY 12 HOURS NG 05/18/18 09:00 05/27/18 23:59 05/23/18 08:48 Sodium Chloride 500 ml @ 999 mls/hr Q31M PRN IV For hypotension 05/14/18 01:30 06/13/18 01:29 05/21/18 19:22 Juice Wilkerson M.D. May 23, 2018 17:33
[2018-05-23] MEDS ORDERED: Vancomycin 2 GM in D5W 500ml 550 ML IVPB SCH (18:30)
[2018-05-23] MEDS: DOPamine 400mg/250ml 250 ML IV SCH (18:51)
--- NOTE | 2018-05-23 18:56 | Nephrology Progress Note ---
Assessment/Plan Problem List: (1) ARF (acute renal failure) (2) Cellulitis of both lower extremities (3) Venous stasis ulcers of both lower extremities (4) DM (diabetes mellitus) (5) CKD (chronic kidney disease) (6) Morbid (severe) obesity due to excess calories (7) Acute hypoxemic respiratory failure Assessment Diabetic Nephropathy acute renal failure super imposed on CKD Encephalopathy, CO2 retainer, respiratory failure acute Obesity High Trop High Bili UTI Bilateral LE cellulitis Anemia Plan D5W 500 cc H2O NGT weaning stop Lacyulose on weaning trial 24 h urine crcl 29 cc 24 h protein 0.6 gr midodrine increase dose DC IV fluids pulmonary support / Mechanical ventilation Anaya pressors as needed OG feeding Avoid nephrotoxics monitor renal parameters 2D echo Ej Fx 55% kidney WESLEY no pathology reported Per ID , Pulm... meds IV or OG tube Avoid mind altering meds per orders Subjective ROS Limited/Unobtainable: Yes Constitutional: Reports: other - more responsive Objective Objective Last 24 Hour Vital Signs Date Time Temp Pulse Resp B/P (MAP) Pulse Ox O2 Delivery O2 Flow Rate FiO2 05/23/18 18:51 116/86 05/23/18 17:09 82 24 30 05/23/18 15:00 79 18 112/91 (98) 96 05/23/18 14:40 78 20 30 05/23/18 14:00 82 22 128/91 (103) 94 05/23/18 13:02 84 23 30 05/23/18 13:00 82 21 116/84 (95) 94 05/23/18 12:00 98.5 92 22 107/86 (93) 95 05/23/18 12:00 Mechanical Ventilator 05/23/18 12:00 40 05/23/18 12:00 93 05/23/18 11:16 80 18 30 05/23/18 11:00 87 20 109/95 (100) 95 05/23/18 10:00 85 20 113/86 (95) 96 05/23/18 09:50 81 22 30 05/23/18 09:50 98 05/23/18 09:00 78 19 116/91 (99) 97 05/23/18 08:43 120/92 05/23/18 08:00 Mechanical Ventilator 05/23/18 08:00 40 05/23/18 08:00 98.1 78 19 109/76 (87) 95 05/23/18 08:00 75 05/23/18 07:30 65 5 101/71 (81) 96 05/23/18 07:30 81 22 30 05/23/18 07:00 66 0 104/89 (94) 97 05/23/18 06:30 67 8 105/85 (92) 97 05/23/18 06:30 67 8 105/85 (92) 97 05/23/18 06:00 66 19 107/84 (92) 97 05/23/18 05:30 68 19 111/87 (95) 96 05/23/18 05:22 76 19 30 05/23/18 05:00 62 18 108/68 (81) 96 05/23/18 05:00 19 Endotracheal Tube 40 05/23/18 04:30 70 18 108/89 (95) 97 05/23/18 04:00 40 05/23/18 04:00 98.3 69 17 107/87 (94) 97 05/23/18 04:00 19 Endotracheal Tube 40 05/23/18 04:00 66 05/23/18 04:00 Mechanical Ventilator 05/23/18 03:37 75 18 30 05/23/18 03:00 62 13 101/81 (88) 97 05/23/18 03:00 12 Endotracheal Tube 40 05/23/18 02:00 64 12 100/80 (87) 97 05/23/18 02:00 12 Endotracheal Tube 40 05/23/18 01:30 62 14 104/80 (88) 98 05/23/18 01:19 73 18 30 05/23/18 01:00 14 Endotracheal Tube 40 05/23/18 01:00 63 18 97/83 (88) 98 05/23/18 00:30 67 3 114/86 (95) 98 05/23/18 00:00 Mechanical Ventilator 05/23/18 00:00 16 Endotracheal Tube 40 05/23/18 00:00 40 05/23/18 00:00 63 05/23/18 00:00 98.4 63 17 101/72 (82) 98 05/22/18 23:37 61 18 30 05/22/18 23:30 62 18 104/80 (88) 100 05/22/18 23:00 70 17 103/79 (87) 99 05/22/18 23:00 18 Endotracheal Tube 40 05/22/18 22:30 63 18 102/75 (84) 98 05/22/18 22:00 18 Endotracheal Tube 40 05/22/18 22:00 62 18 100/75 (83) 99 05/22/18 21:30 59 17 99 05/22/18 21:12 75 18 40 05/22/18 21:00 18 Endotracheal Tube 40 05/22/18 21:00 71 18 102/56 (71) 99 05/22/18 20:30 63 18 97/66 (76) 98 05/22/18 20:00 40 05/22/18 20:00 18 Endotracheal Tube 40 05/22/18 20:00 Mechanical Ventilator 05/22/18 20:00 98.0 66 18 105/71 (82) 98 05/22/18 20:00 61 05/22/18 19:30 68 18 105/76 (86) 98 05/22/18 19:17 40 05/22/18 19:15 72 18 50 05/22/18 19:00 68 18 104/75 (85) 99 05/22/18 19:00 18 Mechanical Ventilator 50 Intake and Output 05/22/18 05/23/18 18:59 06:59 Intake Total 1325.0 ml 1092.5 ml Output Total 285 ml 1835 ml Balance 1040.0 ml -742.5 ml Free Water 200 ml IV Total 845.0 ml 247.5 ml Tube Feeding 180 ml 495 ml Other 300 ml 150 ml Output Urine Total 285 ml 335 ml Stool Total 1500 ml Laboratory Tests 05/23/18 04:00: Sodium Level 153H, Potassium Level 3.7, Chloride Level 118H, Carbon Dioxide Level 25, Anion Gap 10, Blood Urea Nitrogen 51H, Creatinine 1.5H, Estimat Glomerular Filtration Rate 42.3, Glucose Level 93, Calcium Level 9.2, Magnesium Level 2.5H 05/23/18 05:00: White Blood Count 11.1H, Red Blood Count 4.72, Hemoglobin 11.7L, Hematocrit 40.2 , Mean Corpuscular Volume 85, Mean Corpuscular Hemoglobin 24.8L, Mean Corpuscular Hemoglobin Concent 29.2L, Red Cell Distribution Width 19.4H, Platelet Count 212, Mean Platelet Volume 9.6, Neutrophils (%) (Auto) 80.2H, Lymphocytes (%) (Auto) 11.9L, Monocytes (%) (Auto) 5.1, Eosinophils (%) (Auto) 1.8, Basophils (%) (Auto) 1.0 05/23/18 09:21: Arterial Blood pH 7.329L, Arterial Blood Partial Pressure CO2 47.2H, Arterial Blood Partial Pressure O2 72.6L, Arterial Blood HCO3 24.3, Arterial Blood Oxygen Saturation 93.6L, Arterial Blood Base Excess -2.0, Aditya Test Positive Height (Feet): 5 Height (Inches): 3.00 Weight (Pounds): 324 General Appearance: no apparent distress EENT: other - on vent Cardiovascular: normal rate Respiratory/Chest: decreased breath sounds Abdomen: soft Objective no change Tr Strange MD May 23, 2018 18:56
--- NOTE | 2018-05-23 19:30 | NUR ---
HAND-OFF: Report given to LUCIO Reid. Patient VS stable at this time with no sign of acute distress at this time. Patient to be extubated tomorrow. Patient still NPO at this time in preparatio for extubation. Patient also not recieving fentanyl drip at this time in preparation for extubation. Endorsed to follow up. Patient's blood sugar was getting low due to her NPO status. Dr Strange ordered a bolus of D5W at this time. Endorsed to follow up.
[2018-05-23] MEDS: Dyna-Hex 2% Top Sol 2oz TOPIC SCH (19:44)
--- NOTE | 2018-05-23 19:55 | NUR ---
NURSE NOTES: Patient alert, oriented x4, denied pain at this time, on ETT to vent ac18/ tv550/ fio2 30%/ peep 6, o2 saturation 97% noted, OGT intact and patent, no residue noted and held feeding status due to weaning plan, abdomen soft, large, rectal tube intact and patent, yellowish brown stool outed, F/C intact and patent, dark yung color urine outed, PICC line to left upper arm intact and patent, 2 point soft restraints for safety, on big boy bed, both lower legs dressing cleaned and dried status, provided call light within reach, made lower bed position, will continue to monitor.
--- NOTE | 2018-05-23 20:30 | NUR ---
NURSE NOTES: PT's daughter stayed at bedside, cutting wig safety that patient agreed, will continue to monitor.
--- NOTE | 2018-05-23 20:37 | Cardiology Progress Note ---
Assessment/Plan Assessment/Plan 1. Acute hypoxic hypercarbic respiratory failure. 2D echocardiography shows normal LV systolic function with a normal left atrial pressure, however e/o right heart failure. 2. Right heart failure, pre-load sensitive, avoid aggressive diuretic use, evidence of RA and RV dilatation and severe RV systolic dysfunction, associated pulmonary HTN, ? type. 3. Paroxysmal atrial fibrillation, currently sinus rhythm. 4. Hypotension likely due to RV failure, resolved, on midodrine, grim prognosis. 5. Slight elevation of troponin I level in this patient most likely due to RV strain/failure. Subjective Subjective Sinus rhythm at rate of 76. Awake and alert. Failed weaning attempts. Intubated on FiO2 of 30%. Objective Last 24 Hour Vital Signs Date Time Temp Pulse Resp B/P (MAP) Pulse Ox O2 Delivery O2 Flow Rate FiO2 05/23/18 19:24 76 18 30 05/23/18 19:00 76 18 116/94 (101) 97 05/23/18 18:51 116/86 05/23/18 18:00 85 19 107/95 (99) 97 05/23/18 17:09 82 24 30 05/23/18 17:00 72 19 107/84 (92) 97 05/23/18 16:00 Mechanical Ventilator 05/23/18 16:00 73 05/23/18 16:00 40 05/23/18 16:00 98.7 69 18 105/84 (91) 95 05/23/18 15:00 79 18 112/91 (98) 96 05/23/18 14:40 78 20 30 05/23/18 14:00 82 22 128/91 (103) 94 05/23/18 13:02 84 23 30 05/23/18 13:00 82 21 116/84 (95) 94 05/23/18 12:00 98.5 92 22 107/86 (93) 95 05/23/18 12:00 Mechanical Ventilator 05/23/18 12:00 40 05/23/18 12:00 93 05/23/18 11:16 80 18 30 05/23/18 11:00 87 20 109/95 (100) 95 05/23/18 10:00 85 20 113/86 (95) 96 05/23/18 09:50 81 22 30 05/23/18 09:50 98 05/23/18 09:00 78 19 116/91 (99) 97 05/23/18 08:43 120/92 05/23/18 08:00 Mechanical Ventilator 05/23/18 08:00 40 05/23/18 08:00 98.1 78 19 109/76 (87) 95 05/23/18 08:00 75 05/23/18 07:30 65 5 101/71 (81) 96 05/23/18 07:30 81 22 30 05/23/18 07:00 66 0 104/89 (94) 97 05/23/18 06:30 67 8 105/85 (92) 97 05/23/18 06:30 67 8 105/85 (92) 97 05/23/18 06:00 66 19 107/84 (92) 97 05/23/18 05:30 68 19 111/87 (95) 96 05/23/18 05:22 76 19 30 05/23/18 05:00 62 18 108/68 (81) 96 05/23/18 05:00 19 Endotracheal Tube 40 05/23/18 04:30 70 18 108/89 (95) 97 05/23/18 04:00 40 05/23/18 04:00 98.3 69 17 107/87 (94) 97 05/23/18 04:00 19 Endotracheal Tube 40 05/23/18 04:00 66 05/23/18 04:00 Mechanical Ventilator 05/23/18 03:37 75 18 30 05/23/18 03:00 62 13 101/81 (88) 97 05/23/18 03:00 12 Endotracheal Tube 40 05/23/18 02:00 64 12 100/80 (87) 97 05/23/18 02:00 12 Endotracheal Tube 40 05/23/18 01:30 62 14 104/80 (88) 98 05/23/18 01:19 73 18 30 05/23/18 01:00 14 Endotracheal Tube 40 05/23/18 01:00 63 18 97/83 (88) 98 05/23/18 00:30 67 3 114/86 (95) 98 05/23/18 00:00 Mechanical Ventilator 05/23/18 00:00 16 Endotracheal Tube 40 05/23/18 00:00 40 05/23/18 00:00 63 05/23/18 00:00 98.4 63 17 101/72 (82) 98 05/22/18 23:37 61 18 30 05/22/18 23:30 62 18 104/80 (88) 100 05/22/18 23:00 70 17 103/79 (87) 99 05/22/18 23:00 18 Endotracheal Tube 40 05/22/18 22:30 63 18 102/75 (84) 98 05/22/18 22:00 18 Endotracheal Tube 40 05/22/18 22:00 62 18 100/75 (83) 99 05/22/18 21:30 59 17 99 05/22/18 21:12 75 18 40 05/22/18 21:00 18 Endotracheal Tube 40 05/22/18 21:00 71 18 102/56 (71) 99 Intake and Output 05/22/18 05/23/18 19:00 07:00 Intake Total 1372.5 ml 1045.0 ml Output Total 780 ml 1330 ml Balance 592.5 ml -285.0 ml Free Water 200 ml IV Total 847.5 ml 245.0 ml Tube Feeding 225 ml 450 ml Other 300 ml 150 ml Output Urine Total 280 ml 330 ml Stool Total 500 ml 1000 ml 2D Echo: LVEF 55%, D-shaped septum due to RV pressure overload, Massive RA/RV size. Laboratory Tests Test 05/23/18 04:00 05/23/18 05:00 05/23/18 09:21 Sodium Level 153 MMOL/L (136-145) H Potassium Level 3.7 MMOL/L (3.5-5.1) Chloride Level 118 MMOL/L (98-107) H Carbon Dioxide Level 25 MMOL/L (21-32) Anion Gap 10 mmol/L (5-15) Blood Urea Nitrogen 51 mg/dL (7-18) H Creatinine 1.5 MG/DL (0.55-1.30) H Estimat Glomerular Filtration Rate 42.3 mL/min (>60) Glucose Level 93 MG/DL (74-106) Calcium Level 9.2 MG/DL (8.5-10.1) Magnesium Level 2.5 MG/DL (1.8-2.4) H White Blood Count 11.1 K/UL (4.8-10.8) H Red Blood Count 4.72 M/UL (4.20-5.40) Hemoglobin 11.7 G/DL (12.0-16.0) L Hematocrit 40.2 % (37.0-47.0) Mean Corpuscular Volume 85 FL (80-99) Mean Corpuscular Hemoglobin 24.8 PG (27.0-31.0) L Mean Corpuscular Hemoglobin Concent 29.2 G/DL (32.0-36.0) L Red Cell Distribution Width 19.4 % (11.6-14.8) H Platelet Count 212 K/UL (150-450) Mean Platelet Volume 9.6 FL (6.5-10.1) Neutrophils (%) (Auto) 80.2 % (45.0-75.0) H Lymphocytes (%) (Auto) 11.9 % (20.0-45.0) L Monocytes (%) (Auto) 5.1 % (1.0-10.0) Eosinophils (%) (Auto) 1.8 % (0.0-3.0) Basophils (%) (Auto) 1.0 % (0.0-2.0) Arterial Blood pH 7.329 (7.350-7.450) Arterial Blood Partial Pressure CO2 47.2 mmHg (35.0-45.0) H Arterial Blood Partial Pressure O2 72.6 mmHg (75.0-100.0) L Arterial Blood HCO3 24.3 mmol/L (22.0-26.0) Arterial Blood Oxygen Saturation 93.6 % (95-100) L Arterial Blood Base Excess -2.0 (-2-2) Aditya Test Positive Microbiology Date/Time Source Procedure Growth Status 05/21/18 16:20 Blood Blood Culture - Preliminary NO GROWTH AFTER 24 HOURS Resulted 05/21/18 16:00 Blood Blood Culture - Preliminary Gram Positive Cocci Resulted 05/21/18 11:51 Sputum Gram Stain - Final Complete 05/21/18 11:51 Sputum Sputum Culture - Final NORMAL UPPER RESPIRATORY EZEQUIEL PRESENT Complete Objective HEENT: Atraumatic and normocephalic. Anicteric. Pupils are equal, round, and reactive to light and accommodation. Extraocular muscles intact. NECK: Cannot be assessed due to positive inspiratory pressure. No carotid bruit. Carotid upstroke is 2+ bilaterally. CVS: Normal S1 and S2. Regular rate and rhythm. RV heave, No murmurs, gallops , or rubs. LUNGS: Diminished breath sounds in both lungs with rhonchi bilaterally. ABDOMEN: Soft, nontender, and nondistended. No hepatosplenomegaly. Positive bowel sounds. EXTREMITIES: No evidence of edema, clubbing, or cyanosis. There is venous stasis of lower extremities with associated ulceration. Justice Erickson MD May 23, 2018 20:37
[2018-05-23] MEDS: Atorvastatin 20mg tab ORAL SCH (20:45)
--- NOTE | 2018-05-23 20:45 | NUR ---
NURSE NOTES: Wasted Fentanyl 40ml by charge nurse verified with pharmacist.
--- NOTE | 2018-05-23 20:56 | Pulmonolgy Critical Care Note ---
Critical Care - Asmt/Plan Assessment/Plan: Problem List: 1. Altered mental status 2. Acute hypercapnic respiratory failure -intubated 05/15 3. Bilateral lower extremity cellulitis 4. RACHELLE on CKD 5. DM 6. Morbid obesity 7. Elevated ammonia level 8. RV failure Plan: -resume weaning protocol if doing well blu tolerate extubation -will need to monitor ABG closely if extubated, will need bipap available -monitor volumes and renal function -Abx per ID -f/u cultures, send respiratory culture -increased leukocytosis, monitor -monitor cellulitis wound care Respiratory: adjust tidal volume, CXR, ABG, weaning trial Renal: keep IV fluid Infectious Disease: continue antibiotics Neurologic: PRN Morphine Prophylaxis: Protonix Time Spent (Minutes): 40 Notes Reviewed: centrifugal machine tender, cardio Discussed with: nurses Critical Care - Objective Last 24 Hour Vital Signs Date Time Temp Pulse Resp B/P (MAP) Pulse Ox O2 Delivery O2 Flow Rate FiO2 05/23/18 19:24 76 18 30 05/23/18 19:00 76 18 116/94 (101) 97 05/23/18 18:51 116/86 05/23/18 18:00 85 19 107/95 (99) 97 05/23/18 17:09 82 24 30 05/23/18 17:00 72 19 107/84 (92) 97 05/23/18 16:00 Mechanical Ventilator 05/23/18 16:00 73 05/23/18 16:00 40 05/23/18 16:00 98.7 69 18 105/84 (91) 95 05/23/18 15:00 79 18 112/91 (98) 96 05/23/18 14:40 78 20 30 05/23/18 14:00 82 22 128/91 (103) 94 05/23/18 13:02 84 23 30 05/23/18 13:00 82 21 116/84 (95) 94 05/23/18 12:00 98.5 92 22 107/86 (93) 95 05/23/18 12:00 Mechanical Ventilator 05/23/18 12:00 40 05/23/18 12:00 93 05/23/18 11:16 80 18 30 05/23/18 11:00 87 20 109/95 (100) 95 05/23/18 10:00 85 20 113/86 (95) 96 05/23/18 09:50 81 22 30 05/23/18 09:50 98 05/23/18 09:00 78 19 116/91 (99) 97 05/23/18 08:43 120/92 05/23/18 08:00 Mechanical Ventilator 05/23/18 08:00 40 05/23/18 08:00 98.1 78 19 109/76 (87) 95 05/23/18 08:00 75 05/23/18 07:30 65 5 101/71 (81) 96 05/23/18 07:30 81 22 30 05/23/18 07:00 66 0 104/89 (94) 97 05/23/18 06:30 67 8 105/85 (92) 97 05/23/18 06:30 67 8 105/85 (92) 97 05/23/18 06:00 66 19 107/84 (92) 97 05/23/18 05:30 68 19 111/87 (95) 96 05/23/18 05:22 76 19 30 05/23/18 05:00 62 18 108/68 (81) 96 05/23/18 05:00 19 Endotracheal Tube 40 05/23/18 04:30 70 18 108/89 (95) 97 05/23/18 04:00 40 05/23/18 04:00 98.3 69 17 107/87 (94) 97 05/23/18 04:00 19 Endotracheal Tube 40 05/23/18 04:00 66 05/23/18 04:00 Mechanical Ventilator 05/23/18 03:37 75 18 30 05/23/18 03:00 62 13 101/81 (88) 97 05/23/18 03:00 12 Endotracheal Tube 40 05/23/18 02:00 64 12 100/80 (87) 97 05/23/18 02:00 12 Endotracheal Tube 40 05/23/18 01:30 62 14 104/80 (88) 98 05/23/18 01:19 73 18 30 05/23/18 01:00 14 Endotracheal Tube 40 05/23/18 01:00 63 18 97/83 (88) 98 05/23/18 00:30 67 3 114/86 (95) 98 05/23/18 00:00 Mechanical Ventilator 05/23/18 00:00 16 Endotracheal Tube 40 05/23/18 00:00 40 05/23/18 00:00 63 05/23/18 00:00 98.4 63 17 101/72 (82) 98 05/22/18 23:37 61 18 30 05/22/18 23:30 62 18 104/80 (88) 100 05/22/18 23:00 70 17 103/79 (87) 99 05/22/18 23:00 18 Endotracheal Tube 40 05/22/18 22:30 63 18 102/75 (84) 98 05/22/18 22:00 18 Endotracheal Tube 40 05/22/18 22:00 62 18 100/75 (83) 99 05/22/18 21:30 59 17 99 05/22/18 21:12 75 18 40 05/22/18 21:00 18 Endotracheal Tube 40 05/22/18 21:00 71 18 102/56 (71) 99 Status: awake Condition: improving Lungs: rhonchi Heart: HR/BP stable Abdomen: soft, non-tender Extremities: edema Decubiti: location, stage Micro: Microbiology Date/Time Source Procedure Growth Status 05/21/18 16:20 Blood Blood Culture - Preliminary NO GROWTH AFTER 24 HOURS Resulted 05/21/18 16:00 Blood Blood Culture - Preliminary Gram Positive Cocci Resulted 05/21/18 11:51 Sputum Gram Stain - Final Complete 05/21/18 11:51 Sputum Sputum Culture - Final NORMAL UPPER RESPIRATORY EZEQUIEL PRESENT Complete Accucheck: 75 Critical Care - Subjective ROS Limited/Unobtainable: Yes FI02: 30 Vent Support Breath Rate: 18 Vent Support Mode: AC Vent Tidal Volume: 550 Sputum Amount: Scant PEEP: 6.0 PIP: 35 I&O: Intake and Output 05/22/18 05/23/18 19:00 07:00 Intake Total 1372.5 ml 1045.0 ml Output Total 780 ml 1330 ml Balance 592.5 ml -285.0 ml Free Water 200 ml IV Total 847.5 ml 245.0 ml Tube Feeding 225 ml 450 ml Other 300 ml 150 ml Output Urine Total 280 ml 330 ml Stool Total 500 ml 1000 ml Subjective: weaned 5 hours today back on ac awake wounds noted no reports cp nv positive uop on TF positive diarrhea no bleeding ET-Tube: 7.5 ET Position: 24 Labs: Current Medications Medications (Trade) Dose Ordered Sig/Toya Route PRN Reason Start Time Stop Time Status Last Admin Dose Admin Allopurinol (Allopurinol) 300 mg DAILY NG 05/19/18 13:00 06/18/18 12:59 05/23/18 08:54 Ascorbic Acid (Vitamin C) 500 mg TWICE A DAY NG 05/18/18 09:00 06/15/18 17:59 05/23/18 18:45 Atorvastatin Calcium (Lipitor) 20 mg BEDTIME ORAL 05/17/18 21:00 06/13/18 20:59 05/23/18 20:45 Aztreonam 2 gm/ Dextrose 110 ml @ 220 mls/hr Q8HR@0000,0800,1600 IVPB 05/17/18 16:00 05/24/18 23:59 05/23/18 16:42 Chlorhexidine Gluconate (Romy-Hex 2%) 1 applic DAILY@2000 TOPIC 05/14/18 20:00 06/13/18 19:59 05/23/18 19:44 Clopidogrel Bisulfate (Plavix) 75 mg DAILY NG 05/18/18 09:00 06/14/18 08:59 05/23/18 08:47 Dextrose (Dextrose 50%) 25 ml Q30M PRN IV Hypoglycemia 05/13/18 21:00 06/11/18 16:59 Dextrose (Dextrose 50%) 50 ml Q30M PRN IV Hypoglycemia 05/13/18 21:00 06/11/18 16:59 Dopamine HCl/ Dextrose 250 ml @ 0 mls/hr Q24H IV 05/15/18 19:00 06/14/18 18:59 05/16/18 18:05 Fentanyl Citrate 1000 mcg/Sodium Chloride 100 ml @ 0 mls/hr Q24H IV 05/21/18 13:00 05/28/18 12:59 05/22/18 18:09 Insulin Aspart (NovoLOG) Q6HR SUBQ 05/18/18 13:00 06/11/18 12:59 05/20/18 05:04 Midodrine (Pro-Amatine) 5 mg THREE TIMES A DAY NG 05/20/18 18:00 06/17/18 12:59 05/23/18 18:46 Multivitamins (Multivitamins) 1 tab DAILY ORAL 05/18/18 09:00 06/16/18 08:59 05/23/18 08:43 Nitroglycerin (Ntg) 1 patch Q24H TDERMAL 1/19/19 09:00 06/14/18 08:59 05/23/18 08:43 Pantoprazole (Protonix) 40 mg EVERY 12 HOURS IVP 05/14/18 21:00 06/13/18 20:59 05/23/18 20:45 Povidone Iodine (Betadine Gretchen) 1 applic BID TOPIC 05/16/18 09:00 06/15/18 08:59 05/23/18 18:46 Rifaximin (Xifaxan) 550 mg EVERY 12 HOURS NG 05/18/18 09:00 05/27/18 23:59 05/23/18 20:44 Sodium Chloride 500 ml @ 999 mls/hr Q31M PRN IV For hypotension 05/14/18 01:30 06/13/18 01:29 05/21/18 19:22 Vancomycin HCl (Vanco rx to dose) 1 ea DAILY PRN MISC Per rx protocol 05/23/18 17:30 06/22/18 17:29 Vancomycin HCl 2 gm/Dextrose 550 ml @ 275 mls/hr DAILY@1800 IVPB 05/23/18 18:30 05/28/18 18:29 05/23/18 18:51 Laboratory Tests Test 05/23/18 04:00 05/23/18 05:00 05/23/18 09:21 Sodium Level 153 MMOL/L (136-145) H Potassium Level 3.7 MMOL/L (3.5-5.1) Chloride Level 118 MMOL/L (98-107) H Carbon Dioxide Level 25 MMOL/L (21-32) Anion Gap 10 mmol/L (5-15) Blood Urea Nitrogen 51 mg/dL (7-18) H Creatinine 1.5 MG/DL (0.55-1.30) H Estimat Glomerular Filtration Rate 42.3 mL/min (>60) Glucose Level 93 MG/DL (74-106) Calcium Level 9.2 MG/DL (8.5-10.1) Magnesium Level 2.5 MG/DL (1.8-2.4) H White Blood Count 11.1 K/UL (4.8-10.8) H Red Blood Count 4.72 M/UL (4.20-5.40) Hemoglobin 11.7 G/DL (12.0-16.0) L Hematocrit 40.2 % (37.0-47.0) Mean Corpuscular Volume 85 FL (80-99) Mean Corpuscular Hemoglobin 24.8 PG (27.0-31.0) L Mean Corpuscular Hemoglobin Concent 29.2 G/DL (32.0-36.0) L Red Cell Distribution Width 19.4 % (11.6-14.8) H Platelet Count 212 K/UL (150-450) Mean Platelet Volume 9.6 FL (6.5-10.1) Neutrophils (%) (Auto) 80.2 % (45.0-75.0) H Lymphocytes (%) (Auto) 11.9 % (20.0-45.0) L Monocytes (%) (Auto) 5.1 % (1.0-10.0) Eosinophils (%) (Auto) 1.8 % (0.0-3.0) Basophils (%) (Auto) 1.0 % (0.0-2.0) Arterial Blood pH 7.329 (7.350-7.450) Arterial Blood Partial Pressure CO2 47.2 mmHg (35.0-45.0) H Arterial Blood Partial Pressure O2 72.6 mmHg (75.0-100.0) L Arterial Blood HCO3 24.3 mmol/L (22.0-26.0) Arterial Blood Oxygen Saturation 93.6 % (95-100) L Arterial Blood Base Excess -2.0 (-2-2) Aditya Test Positive Krystin Lu DO May 23, 2018 20:56
--- NOTE | 2018-05-23 21:15 | NUR ---
NURSE NOTES: Seen the patient by Dr. RODRIGUEZ, no new order status.
--- NOTE | 2018-05-23 22:30 | NUR ---
NURSE NOTES: Called back from daughter regarding pt's cell phone that according to the patient, took by the son.
[2018-05-24] VITALS (24 sets, daily range): BP systolic 102–137; BP diastolic 65–104
--- NOTE | 2018-05-24 00:32 | NUR ---
NURSE NOTES: Patient wanted to remove restraints and tried to touch endotube that secured restraints, will continue to monitor.
--- NOTE | 2018-05-24 02:30 | NUR ---
NURSE NOTES: Oral care was done, no sob or distress noted, will continue plan of care.
--- NOTE | 2018-05-24 05:10 | NUR ---
NURSE NOTES: Morning care was done.
[2018-05-24] MEDS: NovoLOG Insulin Flexpen SUBQ SCH ×3 (05:32→18:00)
--- NOTE | 2018-05-24 06:25 | NUR ---
NURSE NOTES: Patient wanted water and slight anxious status, encouraged calm down and noted weaning protocols that patient understanding.
--- NOTE | 2018-05-24 06:28 | NUR ---
[employer] SI: RESP FAILURE ETT/VENT SUPPORT T. 98.3 HR 67 RR 14 B/P117/73 AC 18 TV 18 FIO2 30% PEEP 5 IS: WEANING PARAMETER ICU STATTUS
--- NOTE | 2018-05-24 07:10 | NUR ---
HAND-OFF: Report given to KAMRYN/LUCIO.
--- NOTE | 2018-05-24 08:20 | NUR ---
NURSE NOTES: R.T HERE TO SUCTION, WAS INFORMED OF CPAP, PS 8. WILL BEGIN WEANING TRAIL.
--- NOTE | 2018-05-24 08:41 | NUR ---
NURSE NOTES: Radiology here to do CXR.
--- NOTE | 2018-05-24 08:47 | NUR ---
NURSE NOTES: PAGED MD NAVAS, REGARDING ORDER FOR ABG POST 2HR, PLACE ON CPAP, PS 8. AWAITING CALL BACK.
[2018-05-24] MEDS: Pantoprazole Inj IVP SCH ×2 (09:03→21:16)
[2018-05-24] MEDS: [UNRECOGNIZED DRUG - OTHER] IVPB SCH ×4 (09:03→16:37)
[2018-05-24] MEDS: AZTREONAM IVPB SCH ×4 (09:03→16:37)
[2018-05-24] MEDS: Ascorbic Acid 500mg tab NG SCH ×2 (09:04→18:00)
[2018-05-24] MEDS: Nitroglycerin Patch 0.4mg TDERMAL SCH (09:06)
[2018-05-24] MEDS: Betadine 4oz Bottle TOPIC SCH ×2 (09:06→19:07)
[2018-05-24] MEDS: Vancomycin 750mg/NS 250ml IVPB SCH ×2 (10:44→22:13)
--- NOTE | 2018-05-24 10:59 | NUR ---
NURSE NOTES: pt repositioned, suctioned. ABG's taken, awaiting results. Pt tolerated activity well.
--- NOTE | 2018-05-24 11:10 | NUR ---
NURSE NOTES: pt found extubated. placed on non rebreather 15L. o2sat at 100%. restraints in place. pt able to pull them off. Addendum: 05/24/18 at 1204 by Chantelle Cohen RN Called MD NAVAS WITH WEANING ABG RESULTS FROM THIS AM. PH: 7.242, PC02: 49, P02:66.3, HCO3:20.6. PT REFUSING REINTUBATION.RECOMMENDATION FOR BIPAP / IN MEANTIME. AWAITING CALL BACK.
--- NOTE | 2018-05-24 11:20 | NUR ---
RESPIRATORY NOTE: Got a call from LUCIO Rm said pt was self extubated. Pt had both wrist retrains on but still be able to pull out the tube along with the NG tube. LUCIO Lockhart placed on 15L non rebreather, saturated at 90%. No SOB or acute resp distress noted at this time. Awaiting for Dr. Ritchie to call back. Will continue to monitor in the mean time.
--- NOTE | 2018-05-24 11:49 | General Progress Note ---
Assessment/Plan Assessment/Plan S, O: Intubated, PICC line in place, patient awake, not following commands. limited exam PHYSICAL EXAMINATION: HEAD AND NECK: Atraumatic and normocephalic. CHEST: Diffuse bronchial breathing sounds. Overall decreased breathing sounds. ABDOMEN: Grossly morbidly obese. Limited evaluation. MUSCULOSKELETAL: Positive for ulcers and wounds, more diffusely edematous about 2+, superficial wounds on both legs , dressed . NEUROLOGIC: The patient is sedated and intubated. limited exam, Upper arms in soft restraint Meds: Reviewed and reconciled. CXR dated 05/22/18 : reviewed ASSESSMENT: 1.Hypercapnic Vent Dependent Respiratory failure 2. shock, ddx: septic vs cardiogenic 3. CHF exacerbation, right sided, preserved EF 3. Acute/Chronic Renal F 4. Abnormal Trop: NSTEMI vs Leakage 3. UTI/lower extremity infection Hypertension. 4. Diabetes type 2, controlled with A1c of 6.3. 5. Pain management. 6. PAH 7. 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 HyperNatremia 6. GI and DVT prophylaxis. PLAN OF CARE: Grave prognosis Off pressor, preserved BP Empirical abx, per ID Failed first attempt for weaning trial Will Followup with pulmonary for re-weaning trial I spoke with the Son, yesterday. comment: patient seen and examined on - Timing of this note does not reflect actual time of the encounter Subjective Allergies: Coded Allergies: ASPIRIN (Verified Allergy, Intermediate, Hives, 01/06/13) PENICILLINS (Verified Allergy, Intermediate, Hives, 01/06/13) Objective Last 24 Hour Vital Signs Date Time Temp Pulse Resp B/P (MAP) Pulse Ox O2 Delivery O2 Flow Rate FiO2 05/24/18 10:57 93 26 30 05/24/18 10:00 114 18 137/104 (115) 92 05/24/18 09:06 137/101 05/24/18 09:00 98.3 91 22 137/101 (113) 95 05/24/18 08:39 78 25 30 05/24/18 08:38 95 05/24/18 08:00 30 05/24/18 08:00 69 125/94 (104) 97 05/24/18 08:00 Mechanical Ventilator 05/24/18 07:00 68 18 136/90 (105) 98 05/24/18 06:30 67 18 30 05/24/18 06:00 73 18 131/65 (87) 97 05/24/18 05:20 79 22 30 05/24/18 05:00 69 18 122/84 (97) 98 05/24/18 04:07 71 05/24/18 04:00 Mechanical Ventilator 05/24/18 04:00 30 05/24/18 04:00 98.3 67 16 117/73 (88) 96 05/24/18 03:17 71 18 30 05/24/18 03:00 71 16 116/71 (86) 97 05/24/18 02:00 79 9 104/81 (89) 96 05/24/18 01:23 74 21 30 05/24/18 01:00 69 0 102/73 (83) 97 05/24/18 00:00 98.2 71 18 107/72 (84) 97 05/24/18 00:00 Mechanical Ventilator 05/24/18 00:00 30 05/23/18 23:55 68 05/23/18 23:00 71 18 103/79 (87) 97 05/23/18 22:58 70 18 30 05/23/18 22:00 70 18 113/79 (90) 97 05/23/18 21:23 78 22 30 05/23/18 21:00 76 17 120/76 (91) 97 05/23/18 20:00 Mechanical Ventilator 05/23/18 20:00 98.4 75 20 123/91 (102) 97 05/23/18 20:00 30 05/23/18 19:59 76 05/23/18 19:24 76 18 30 05/23/18 19:00 76 18 116/94 (101) 97 05/23/18 18:51 116/86 05/23/18 18:00 85 19 107/95 (99) 97 05/23/18 17:09 82 24 30 05/23/18 17:00 72 19 107/84 (92) 97 05/23/18 16:00 Mechanical Ventilator 05/23/18 16:00 73 05/23/18 16:00 40 05/23/18 16:00 98.7 69 18 105/84 (91) 95 05/23/18 15:00 79 18 112/91 (98) 96 05/23/18 14:40 78 20 30 05/23/18 14:00 82 22 128/91 (103) 94 05/23/18 13:02 84 23 30 05/23/18 13:00 82 21 116/84 (95) 94 05/23/18 12:00 98.5 92 22 107/86 (93) 95 05/23/18 12:00 Mechanical Ventilator 05/23/18 12:00 40 05/23/18 12:00 93 Intake and Output 05/23/18 05/24/18 19:00 07:00 Intake Total 440 ml 1220 ml Output Total 465 ml 590 ml Balance -25 ml 630 ml IV Total 440 ml 1160 ml Other 60 ml Output Urine Total 465 ml 510 ml Stool Total 80 ml Laboratory Tests 05/24/18 10:55: Arterial Blood pH 7.242*L, Arterial Blood Partial Pressure CO2 49.0H, Arterial Blood Partial Pressure O2 66.3L, Arterial Blood HCO3 20.6L, Arterial Blood Oxygen Saturation 90.0L, Arterial Blood Base Excess -6.8L, Aditya Test Positive Height (Feet): 5 Height (Inches): 3.00 Weight (Pounds): 324 Margaret Mckinney MD May 24, 2018 11:49
--- NOTE | 2018-05-24 11:59 | GI Progress Note ---
Assessment/Plan Problems: (1) DM (diabetes mellitus) ICD Codes: E11.9 - DM (diabetes mellitus) SNOMED: 08055568 (2) Intractable abdominal pain ICD Codes: R10.9 - Unspecified abdominal pain SNOMED: 91508219 (3) Elevated transaminase level ICD Codes: R74.0 - Nonspecific elevation of levels of transaminase and lactic acid dehydrogenase [LDH] SNOMED: 499897571 (4) Abdominal distension ICD Codes: R14.0 - Abdominal distension (gaseous) SNOMED: 72706430 (5) Liver disease ICD Codes: K76.9 - Liver disease, unspecified SNOMED: 473719387 (6) Acute encephalopathy ICD Codes: G93.40 - Encephalopathy, unspecified SNOMED: 04568396, 984797852 (7) Hepatic encephalopathy ICD Codes: K72.90 - Hepatic failure, unspecified without coma SNOMED: 40269346 Status: progressing Status Narrative Discussed with Dr. Paul. Assessment/Plan OB stool negative x2 hepatitis panel negative abdominal US reviewed >> - Ascites - Borderline hepatomegaly - Thick-walled gallbladder, likely in part artifact of nondistention, and in part due to hemodynamic factors causing the ascites. No definite gallstones. Acute cholecystitis not completely excludable, due to the wall thickening, and hepatobiliary scan should be considered if there is high clinical suspicion for such. - Negative for dilated ducts - To and fro flow within the main portal vein, could indicate portal hypertension HIDA and paracentesis when respiratory status stabilizes TF on hold for possible extubation cont lactulose Xifaxan Wean off of sedatives and narcotics monitor H&H, prn transfusions rectal tube bowel regime ppi fu labs will consider endoscopy pending work up, but will require cardiac clearance given elevated troponin levels The patient was seen and examined at bedside and all new and available data was reviewed in the patients chart. I agree with the above findings, impression and plan. (Patient seen earlier today. Signature stamp does not reflect patient encounter time.). - Robert Paul MD Subjective Subjective limited Objective Last 24 Hour Vital Signs Date Time Temp Pulse Resp B/P (MAP) Pulse Ox O2 Delivery O2 Flow Rate FiO2 05/24/18 10:57 93 26 30 05/24/18 10:00 114 18 137/104 (115) 92 05/24/18 09:06 137/101 05/24/18 09:00 98.3 91 22 137/101 (113) 95 05/24/18 08:39 78 25 30 05/24/18 08:38 95 05/24/18 08:00 30 05/24/18 08:00 69 125/94 (104) 97 05/24/18 08:00 Mechanical Ventilator 05/24/18 07:00 68 18 136/90 (105) 98 05/24/18 06:30 67 18 30 05/24/18 06:00 73 18 131/65 (87) 97 05/24/18 05:20 79 22 30 05/24/18 05:00 69 18 122/84 (97) 98 05/24/18 04:07 71 05/24/18 04:00 Mechanical Ventilator 05/24/18 04:00 30 05/24/18 04:00 98.3 67 16 117/73 (88) 96 05/24/18 03:17 71 18 30 05/24/18 03:00 71 16 116/71 (86) 97 05/24/18 02:00 79 9 104/81 (89) 96 05/24/18 01:23 74 21 30 05/24/18 01:00 69 0 102/73 (83) 97 05/24/18 00:00 98.2 71 18 107/72 (84) 97 05/24/18 00:00 Mechanical Ventilator 05/24/18 00:00 30 05/23/18 23:55 68 05/23/18 23:00 71 18 103/79 (87) 97 05/23/18 22:58 70 18 30 05/23/18 22:00 70 18 113/79 (90) 97 05/23/18 21:23 78 22 30 05/23/18 21:00 76 17 120/76 (91) 97 05/23/18 20:00 Mechanical Ventilator 05/23/18 20:00 98.4 75 20 123/91 (102) 97 05/23/18 20:00 30 05/23/18 19:59 76 05/23/18 19:24 76 18 30 05/23/18 19:00 76 18 116/94 (101) 97 05/23/18 18:51 116/86 05/23/18 18:00 85 19 107/95 (99) 97 1/27/19 17:09 82 24 30 05/23/18 17:00 72 19 107/84 (92) 97 05/23/18 16:00 Mechanical Ventilator 05/23/18 16:00 73 05/23/18 16:00 40 05/23/18 16:00 98.7 69 18 105/84 (91) 95 05/23/18 15:00 79 18 112/91 (98) 96 05/23/18 14:40 78 20 30 05/23/18 14:00 82 22 128/91 (103) 94 05/23/18 13:02 84 23 30 05/23/18 13:00 82 21 116/84 (95) 94 05/23/18 12:00 98.5 92 22 107/86 (93) 95 05/23/18 12:00 Mechanical Ventilator 05/23/18 12:00 40 05/23/18 12:00 93 Intake and Output 05/23/18 05/24/18 19:00 07:00 Intake Total 440 ml 1220 ml Output Total 465 ml 590 ml Balance -25 ml 630 ml IV Total 440 ml 1160 ml Other 60 ml Output Urine Total 465 ml 510 ml Stool Total 80 ml Laboratory Tests Test 05/24/18 10:55 05/24/18 11:00 Arterial Blood pH 7.242 (7.350-7.450) Arterial Blood Partial Pressure CO2 49.0 mmHg (35.0-45.0) H Arterial Blood Partial Pressure O2 66.3 mmHg (75.0-100.0) L Arterial Blood HCO3 20.6 mmol/L (22.0-26.0) L Arterial Blood Oxygen Saturation 90.0 % (95-100) L Arterial Blood Base Excess -6.8 (-2-2) L Aditya Test Positive White Blood Count Pending Red Blood Count Pending Hemoglobin Pending Hematocrit Pending Mean Corpuscular Volume Pending Mean Corpuscular Hemoglobin Pending Mean Corpuscular Hemoglobin Concent Pending Red Cell Distribution Width Pending Platelet Count Pending Mean Platelet Volume Pending Neutrophils (%) (Auto) Pending Lymphocytes (%) (Auto) Pending Monocytes (%) (Auto) Pending Eosinophils (%) (Auto) Pending Basophils (%) (Auto) Pending Sodium Level Pending Potassium Level Pending Chloride Level Pending Carbon Dioxide Level Pending Blood Urea Nitrogen Pending Creatinine Pending Estimat Glomerular Filtration Rate Pending Glucose Level Pending Calcium Level Pending Total Bilirubin Pending Aspartate Amino Transf (AST/SGOT) Pending Alanine Aminotransferase (ALT/SGPT) Pending Alkaline Phosphatase Pending Total Protein Pending Albumin Pending Globulin Pending Height (Feet): 5 Height (Inches): 3.00 Weight (Pounds): 324 General Appearance: WD/WN, no apparent distress, alert Cardiovascular: normal rate Respiratory/Chest: normal breath sounds, no respiratory distress, other - venturi Abdominal Exam: normal bowel sounds, non tender, soft, other - NGT Extremities: non-tender Otilio Cohen NP May 24, 2018 11:59
--- NOTE | 2018-05-24 12:00 | NUR ---
NURSE NOTES: RECEIVED CALL BACK FROM CALIXTO BRADFORD ORDER FOR CHELSEY 14/12. Addendum: 05/24/18 at 1206 by Chantelle Cohen RN Santi VILLEGAS
[2018-05-24 12:02] LABS: BASOPHILS % (AUTO) 0.6 % (0.0-2.0); EOSINOPHILS % (AUTO) 1.1 % (0.0-3.0); HEMOGLOBIN 12.6 G/DL (12.0-16.0); LYMPHOCYTES % (AUTO) 13.5 % (20.0-45.0); MEAN CORPUSCULAR VOLUME 85 FL (80-99); MONOCYTES % (AUTO) 3.8 % (1.0-10.0); PLATELET COUNT 316 K/UL (150-450); RED BLOOD COUNT 5.06 M/UL (4.20-5.40); RED CELL DISTRIBUTION WIDTH 19.7 % (11.6-14.8)
--- NOTE | 2018-05-24 12:45 | NUR ---
RESPIRATORY NOTE: Pt is noncompliant. Pt kept removing Bipap mask off, stated that she didn't want to be on it. Asked Charge Nurse Isabela to come and help explaining the important of the Bipap after unsuccessfully convinced her to be back on Bipap. CN Isabela talked to pt and educated pt about Bipap, pt stated she understood. Put her back on Bipap, left the room but she then removed the mask again and refused to be back on Bipap again. Placed pt on venturi mask 10L 45%FiO2, pt still keeps removing the venturi mask, saturation up and down 84%-94% when on and off the mask. Will continue to monitor pt closely.
--- NOTE | 2018-05-24 12:58 | Nephrology Progress Note ---
Assessment/Plan Problem List: (1) ARF (acute renal failure) (2) Cellulitis of both lower extremities (3) Venous stasis ulcers of both lower extremities (4) DM (diabetes mellitus) (5) CKD (chronic kidney disease) (6) Morbid (severe) obesity due to excess calories (7) Acute hypoxemic respiratory failure Assessment Diabetic Nephropathy acute renal failure super imposed on CKD Encephalopathy, CO2 retainer, respiratory failure acute Obesity High Trop High Bili UTI Bilateral LE cellulitis Anemia Plan D5W 500 cc today's labs pending H2O NGT weaning stop Lacyulose on weaning trial 24 h urine crcl 29 cc 24 h protein 0.6 gr midodrine increase dose DC IV fluids pulmonary support / Mechanical ventilation Anaya pressors as needed OG feeding Avoid nephrotoxics monitor renal parameters 2D echo Ej Fx 55% kidney WESLEY no pathology reported Per ID , Pulm... meds IV or OG tube Avoid mind altering meds per orders Subjective ROS Limited/Unobtainable: Yes Objective Objective Last 24 Hour Vital Signs Date Time Temp Pulse Resp B/P (MAP) Pulse Ox O2 Delivery O2 Flow Rate FiO2 05/24/18 12:00 98.6 99 128/94 (105) 100 05/24/18 11:20 Non-Rebreather 15.0 100 05/24/18 11:00 87 12 92 05/24/18 10:57 93 26 30 05/24/18 10:00 114 18 137/104 (115) 92 05/24/18 09:06 137/101 05/24/18 09:00 98.3 91 22 137/101 (113) 95 05/24/18 08:39 78 25 30 05/24/18 08:38 95 05/24/18 08:00 30 05/24/18 08:00 68 05/24/18 08:00 69 125/94 (104) 97 05/24/18 08:00 Mechanical Ventilator 05/24/18 07:00 68 18 136/90 (105) 98 05/24/18 06:30 67 18 30 05/24/18 06:00 73 18 131/65 (87) 97 05/24/18 05:20 79 22 30 05/24/18 05:00 69 18 122/84 (97) 98 05/24/18 04:07 71 05/24/18 04:00 Mechanical Ventilator 05/24/18 04:00 30 05/24/18 04:00 98.3 67 16 117/73 (88) 96 05/24/18 03:17 71 18 30 05/24/18 03:00 71 16 116/71 (86) 97 05/24/18 02:00 79 9 104/81 (89) 96 05/24/18 01:23 74 21 30 05/24/18 01:00 69 0 102/73 (83) 97 05/24/18 00:00 98.2 71 18 107/72 (84) 97 05/24/18 00:00 Mechanical Ventilator 05/24/18 00:00 30 05/23/18 23:55 68 05/23/18 23:00 71 18 103/79 (87) 97 05/23/18 22:58 70 18 30 05/23/18 22:00 70 18 113/79 (90) 97 05/23/18 21:23 78 22 30 05/23/18 21:00 76 17 120/76 (91) 97 05/23/18 20:00 Mechanical Ventilator 05/23/18 20:00 98.4 75 20 123/91 (102) 97 05/23/18 20:00 30 05/23/18 19:59 76 05/23/18 19:24 76 18 30 05/23/18 19:00 76 18 116/94 (101) 97 05/23/18 18:51 116/86 05/23/18 18:00 85 19 107/95 (99) 97 05/23/18 17:09 82 24 30 05/23/18 17:00 72 19 107/84 (92) 97 05/23/18 16:00 Mechanical Ventilator 05/23/18 16:00 73 05/23/18 16:00 40 05/23/18 16:00 98.7 69 18 105/84 (91) 95 05/23/18 15:00 79 18 112/91 (98) 96 05/23/18 14:40 78 20 30 05/23/18 14:00 82 22 128/91 (103) 94 05/23/18 13:02 84 23 30 05/23/18 13:00 82 21 116/84 (95) 94 Intake and Output 05/23/18 05/24/18 19:00 07:00 Intake Total 440 ml 1220 ml Output Total 465 ml 590 ml Balance -25 ml 630 ml IV Total 440 ml 1160 ml Other 60 ml Output Urine Total 465 ml 510 ml Stool Total 80 ml Laboratory Tests 05/24/18 10:55: Arterial Blood pH 7.242*L, Arterial Blood Partial Pressure CO2 49.0H, Arterial Blood Partial Pressure O2 66.3L, Arterial Blood HCO3 20.6L, Arterial Blood Oxygen Saturation 90.0L, Arterial Blood Base Excess -6.8L, Aditya Test Positive 05/24/18 11:00: White Blood Count 12.0H, Red Blood Count 5.06, Hemoglobin 12.6, Hematocrit 43.0 , Mean Corpuscular Volume 85, Mean Corpuscular Hemoglobin 24.8L, Mean Corpuscular Hemoglobin Concent 29.3L, Red Cell Distribution Width 19.7H, Platelet Count 316, Mean Platelet Volume 8.5, Neutrophils (%) (Auto) 81.0H, Lymphocytes (%) (Auto) 13.5L, Monocytes (%) (Auto) 3.8, Eosinophils (%) (Auto) 1.1, Basophils (%) (Auto) 0.6 05/24/18 12:00: Sodium Level [Pending], Potassium Level [Pending], Chloride Level [Pending], Carbon Dioxide Level [Pending], Blood Urea Nitrogen [Pending], Creatinine [ Pending], Estimat Glomerular Filtration Rate [Pending], Glucose Level [Pending] , Calcium Level [Pending], Total Bilirubin [Pending], Aspartate Amino Transf ( AST/SGOT) [Pending], Alanine Aminotransferase (ALT/SGPT) [Pending], Alkaline Phosphatase [Pending], Total Protein [Pending], Albumin [Pending], Globulin [ Pending] Height (Feet): 5 Height (Inches): 3.00 Weight (Pounds): 324 General Appearance: no apparent distress EENT: other - on vent Cardiovascular: normal rate Respiratory/Chest: decreased breath sounds Abdomen: soft Objective no change Tr Strange MD May 24, 2018 12:58
[2018-05-24] MEDS: fentaNYL Citrate 1000 MCG in NS 100ml IV SCH (13:00)
--- NOTE | 2018-05-24 13:00 | NUR ---
NURSE NOTES: md fuentes and md alvarez here to see pt.
[2018-05-24 13:17] LABS: ALANINE AMINOTRANSFERASE 8 U/L (12-78); ALBUMIN 2.1 G/DL (3.4-5.0); ALBUMIN/GLOBULIN RATIO 0.5 (1.0-2.7); ALKALINE PHOSPHATASE 247 U/L (46-116); ANION GAP 8 mmol/L (5-15); ASPARTATE AMINO TRANSFERASE 46 U/L (15-37); BILIRUBIN,TOTAL 1.3 MG/DL (0.2-1.0); BLOOD UREA NITROGEN 43 mg/dL (7-18); CALCIUM 8.9 MG/DL (8.5-10.1); CARBON DIOXIDE 24 MMOL/L (21-32); CHLORIDE 118 MMOL/L (98-107); CREATININE 1.2 MG/DL (0.55-1.30); SODIUM 150 MMOL/L (136-145)
[2018-05-24 13:18] LABS: BILIRUBIN,DIRECT 0.8 MG/DL (0.0-0.3)
--- NOTE | 2018-05-24 13:37 | NUR ---
NURSE NOTES: Patient is very noncompliant. Patient consistently pulls off her Venti Mask despite education regarding re-intubation without it. Dr. Ritchie also assessed patient bedside and explained to patient in detail regarding the use of the BIPAP and Venti. Patient stated that she understood however, patient continues to remove her Venti Mask and refuses her BIPAP. Several attempts since 1130 am have been made to insist that patient be compliant to NO AVAIL. Patient has SPO2 85% because of her noncompliance. Will continue to monitor patient.
--- NOTE | 2018-05-24 15:00 | NUR ---
NURSE NOTES: Pt continues to pull venturi mask off, despite being restrained. Pt repositioned. one IV 20G LT hand replaced, will attempt to place second IV to d/c picc line.
--- NOTE | 2018-05-24 15:11 | Infectious Diseases Prog Note ---
Assessment/Plan Problems: (1) Bacteremia due to Enterococcus Assessment & Plan: due to enterococcus faecalis , will need to remove PICC line as soon as we establish peripheral . will treat with vancomycin renally dosed as per pharmacy for two weeks starting from the removal date of PICC line (2) Leukocytosis (leucocytosis) Assessment & Plan: due to bacteremia , continue antibiotics (3) Bilateral lower leg cellulitis Assessment & Plan: wound culture grew klibsella oxytoca, and Sphingomonas paucimobilis , continue vancomycin and aztreonam empirically with local wounds care . patient has refused MRI and CT of the legs to rule out deep abscess or osteomyelitis. await on bone scan of both legs once clinically stable . D/W water quality specialist (4) Nonhealing ulcer of left lower extremity Assessment & Plan: wound culture grew klebsiella oxytoca and Sphingomonas paucimobilis, now on aztreonam and vancomycin , continue local wound care and dressings change as per wound care service as per plastic surgery recommendations (5) CKD (chronic kidney disease) Assessment & Plan: avoid nephrotoxics , renally dosed antibiotics as per pharmacy (6) DM (diabetes mellitus) Assessment & Plan: recommend tight glycemic control to keep blood glucose between 100-140 (7) Acute encephalopathy Assessment & Plan: suspect metabolic with high ammonia level, continue lactulose , consult neurology if no improvement (8) Acute hypoxemic respiratory failure Assessment & Plan: due to the above , self extubated , now on high flow oxygen , pulmonary is following, Subjective Constitutional: Reports: no symptoms HEENT: Reports: no symptoms Respiratory: Reports: dry cough Breasts: Reports: no symptoms Cardiovascular: Reports: no symptoms Gastrointestinal/Abdominal: Reports: no symptoms Genitourinary: Reports: no symptoms Neurologic: Reports: no symptoms Psychiatric: Reports: no symptoms Skin: Reports: no symptoms, ulcer Endocrine: Reports: no symptoms Hematologic: Reports: no symptoms Allergies: Coded Allergies: ASPIRIN (Verified Allergy, Intermediate, Hives, 01/06/13) PENICILLINS (Verified Allergy, Intermediate, Hives, 01/06/13) Subjective she was self extubated in ICU , awake and responsive, afebrile, has good UOP , not on pressor . retaining fluids Objective Vital Signs Last 24 Hour Vital Signs Date Time Temp Pulse Resp B/P (MAP) Pulse Ox O2 Delivery O2 Flow Rate FiO2 05/24/18 14:40 94 20 97 05/24/18 14:00 96 18 106/88 (94) 87 05/24/18 13:00 86 20 115/81 (92) 86 05/24/18 12:05 88 19 97 Facial 40 05/24/18 12:00 10.0 45 05/24/18 12:00 98.6 99 128/94 (105) 100 05/24/18 12:00 Venturi Mask 10.0 Venturi Mask 05/24/18 11:20 Non-Rebreather 15.0 100 05/24/18 11:00 87 12 92 05/24/18 10:57 93 26 30 05/24/18 10:00 114 18 137/104 (115) 92 05/24/18 09:06 137/101 05/24/18 09:00 98.3 91 22 137/101 (113) 95 05/24/18 08:39 78 25 30 05/24/18 08:38 95 05/24/18 08:00 30 05/24/18 08:00 68 05/24/18 08:00 69 125/94 (104) 97 05/24/18 08:00 Mechanical Ventilator 05/24/18 07:00 68 18 136/90 (105) 98 05/24/18 06:30 67 18 30 05/24/18 06:00 73 18 131/65 (87) 97 05/24/18 05:20 79 22 30 05/24/18 05:00 69 18 122/84 (97) 98 05/24/18 04:07 71 05/24/18 04:00 Mechanical Ventilator 05/24/18 04:00 30 05/24/18 04:00 98.3 67 16 117/73 (88) 96 05/24/18 03:17 71 18 30 05/24/18 03:00 71 16 116/71 (86) 97 05/24/18 02:00 79 9 104/81 (89) 96 05/24/18 01:23 74 21 30 05/24/18 01:00 69 0 102/73 (83) 97 05/24/18 00:00 98.2 71 18 107/72 (84) 97 05/24/18 00:00 Mechanical Ventilator 05/24/18 00:00 30 05/23/18 23:55 68 05/23/18 23:00 71 18 103/79 (87) 97 05/23/18 22:58 70 18 30 05/23/18 22:00 70 18 113/79 (90) 97 05/23/18 21:23 78 22 30 05/23/18 21:00 76 17 120/76 (91) 97 05/23/18 20:00 Mechanical Ventilator 05/23/18 20:00 98.4 75 20 123/91 (102) 97 05/23/18 20:00 30 05/23/18 19:59 76 05/23/18 19:24 76 18 30 05/23/18 19:00 76 18 116/94 (101) 97 05/23/18 18:51 116/86 05/23/18 18:00 85 19 107/95 (99) 97 05/23/18 17:09 82 24 30 05/23/18 17:00 72 19 107/84 (92) 97 05/23/18 16:00 Mechanical Ventilator 05/23/18 16:00 73 05/23/18 16:00 40 05/23/18 16:00 98.7 69 18 105/84 (91) 95 Height (Feet): 5 Height (Inches): 3.00 Weight (Pounds): 324 General Appearance: WD/WN, no acute distress HEENT: normocephalic, atraumatic, anicteric, mucous membranes moist, PERRL Respiratory/Chest: chest wall non-tender, no respiratory distress, no accessory muscle use, decreased breath sounds, crackles/rales Cardiovascular: normal peripheral pulses, normal rate, regular rhythm, no gallop/murmur, no JVD Abdomen: normal bowel sounds, soft, non tender, no organomegaly, non distended , no mass, no scars Extremities: no cyanosis, no clubbing Skin: no rash, no lesions, ulcers Neurologic/Psychiatric: alert, oriented x 3, responsive Lymphatic: no neck adenopathy, no groin adenopathy Musculoskeletal: normal muscle bulk, no effusion Microbiology Date/Time Source Procedure Growth Status 05/22/18 15:40 Blood Blood Culture - Preliminary NO GROWTH AFTER 24 HOURS Resulted 05/22/18 14:00 Blood Blood Culture - Preliminary NO GROWTH AFTER 24 HOURS Resulted 05/21/18 16:20 Blood Blood Culture - Preliminary NO GROWTH AFTER 48 HOURS Resulted 05/21/18 16:00 Blood Blood Culture - Final Enterococcus Faecalis Complete Laboratory Tests Test 05/24/18 10:55 05/24/18 11:00 05/24/18 12:00 Arterial Blood pH 7.242 (7.350-7.450) Arterial Blood Partial Pressure CO2 49.0 mmHg (35.0-45.0) H Arterial Blood Partial Pressure O2 66.3 mmHg (75.0-100.0) L Arterial Blood HCO3 20.6 mmol/L (22.0-26.0) L Arterial Blood Oxygen Saturation 90.0 % (95-100) L Arterial Blood Base Excess -6.8 (-2-2) L Aditya Test Positive White Blood Count 12.0 K/UL (4.8-10.8) H Red Blood Count 5.06 M/UL (4.20-5.40) Hemoglobin 12.6 G/DL (12.0-16.0) Hematocrit 43.0 % (37.0-47.0) Mean Corpuscular Volume 85 FL (80-99) Mean Corpuscular Hemoglobin 24.8 PG (27.0-31.0) L Mean Corpuscular Hemoglobin Concent 29.3 G/DL (32.0-36.0) L Red Cell Distribution Width 19.7 % (11.6-14.8) H Platelet Count 316 K/UL (150-450) Mean Platelet Volume 8.5 FL (6.5-10.1) Neutrophils (%) (Auto) 81.0 % (45.0-75.0) H Lymphocytes (%) (Auto) 13.5 % (20.0-45.0) L Monocytes (%) (Auto) 3.8 % (1.0-10.0) Eosinophils (%) (Auto) 1.1 % (0.0-3.0) Basophils (%) (Auto) 0.6 % (0.0-2.0) Sodium Level 150 MMOL/L (136-145) H Potassium Level 4.0 MMOL/L (3.5-5.1) Chloride Level 118 MMOL/L (98-107) H Carbon Dioxide Level 24 MMOL/L (21-32) Anion Gap 8 mmol/L (5-15) Blood Urea Nitrogen 43 mg/dL (7-18) H Creatinine 1.2 MG/DL (0.55-1.30) Estimat Glomerular Filtration Rate 54.7 mL/min (>60) Glucose Level 89 MG/DL (74-106) Calcium Level 8.9 MG/DL (8.5-10.1) Total Bilirubin 1.3 MG/DL (0.2-1.0) H Direct Bilirubin 0.8 MG/DL (0.0-0.3) H Aspartate Amino Transf (AST/SGOT) 46 U/L (15-37) H Alanine Aminotransferase (ALT/SGPT) 8 U/L (12-78) L Alkaline Phosphatase 247 U/L (46-116) H Total Protein 6.4 G/DL (6.4-8.2) Albumin 2.1 G/DL (3.4-5.0) L Globulin 4.3 g/dL Albumin/Globulin Ratio 0.5 (1.0-2.7) L Current Medications Medications (Trade) Dose Ordered Sig/Toya Route PRN Reason Start Time Stop Time Status Last Admin Dose Admin Allopurinol (Allopurinol) 300 mg DAILY NG 05/19/18 13:00 06/18/18 12:59 05/24/18 09:04 Ascorbic Acid (Vitamin C) 500 mg TWICE A DAY NG 05/18/18 09:00 06/15/18 17:59 05/24/18 09:04 Atorvastatin Calcium (Lipitor) 20 mg BEDTIME ORAL 05/17/18 21:00 06/13/18 20:59 05/23/18 20:45 Aztreonam 2 gm/ Dextrose 110 ml @ 220 mls/hr Q8HR@0000,0800,1600 IVPB 05/17/18 16:00 05/29/18 15:59 05/24/18 09:03 Chlorhexidine Gluconate (Romy-Hex 2%) 1 applic DAILY@2000 TOPIC 05/14/18 20:00 06/13/18 19:59 05/23/18 19:44 Clopidogrel Bisulfate (Plavix) 75 mg DAILY NG 05/18/18 09:00 06/14/18 08:59 05/24/18 09:04 Dextrose (Dextrose 50%) 25 ml Q30M PRN IV Hypoglycemia 05/13/18 21:00 06/11/18 16:59 Dextrose (Dextrose 50%) 50 ml Q30M PRN IV Hypoglycemia 05/13/18 21:00 06/11/18 16:59 Dopamine HCl/ Dextrose 250 ml @ 0 mls/hr Q24H IV 05/15/18 19:00 06/14/18 18:59 05/16/18 18:05 Fentanyl Citrate 1000 mcg/Sodium Chloride 100 ml @ 0 mls/hr Q24H IV 05/21/18 13:00 05/28/18 12:59 05/22/18 18:09 Insulin Aspart (NovoLOG) Q6HR SUBQ 05/18/18 13:00 06/11/18 12:59 05/20/18 05:04 Midodrine (Pro-Amatine) 5 mg THREE TIMES A DAY NG 05/20/18 18:00 06/17/18 12:59 05/24/18 09:03 Multivitamins (Multivitamins) 1 tab DAILY ORAL 05/18/18 09:00 06/16/18 08:59 05/24/18 09:04 Nitroglycerin (Ntg) 1 patch Q24H TDERMAL 05/15/18 09:00 06/14/18 08:59 05/24/18 09:06 Pantoprazole (Protonix) 40 mg EVERY 12 HOURS IVP 05/14/18 21:00 06/13/18 20:59 05/24/18 09:03 Povidone Iodine (Betadine Gretchen) 1 applic BID TOPIC 05/16/18 09:00 06/15/18 08:59 05/24/18 09:06 Rifaximin (Xifaxan) 550 mg EVERY 12 HOURS NG 05/18/18 09:00 05/27/18 23:59 05/24/18 09:05 Sodium Chloride 500 ml @ 999 mls/hr Q31M PRN IV For hypotension 05/14/18 01:30 06/13/18 01:29 05/21/18 19:22 Vancomycin HCl (Vanco rx to dose) 1 ea DAILY PRN MISC Per rx protocol 05/23/18 17:30 06/22/18 17:29 Vancomycin/Sodium Chloride 250 ml @ 166.667 mls/hr Q12H IVPB 05/24/18 10:00 05/29/18 09:59 05/24/18 10:44 Juice Wilkerson M.D. May 24, 2018 15:11
--- NOTE | 2018-05-24 15:36 | General Progress Note ---
Assessment/Plan Assessment/Plan S, O: status post self-Extubation, PICC line in place, patient awake, following commands. limited exam PHYSICAL EXAMINATION: HEAD AND NECK: Atraumatic and normocephalic. CHEST: Diffuse bronchial breathing sounds. Overall decreased breathing sounds. ABDOMEN: Grossly morbidly obese. Limited evaluation. MUSCULOSKELETAL: Positive for ulcers and wounds, more diffusely edematous about 2+, superficial wounds on both legs , dressed . NEUROLOGIC: The patient is awake , follow commands . limited exam, Meds: Reviewed and reconciled. CXR dated 05/22/18 : reviewed ASSESSMENT: 1.Hypercapnic Vent Dependent Respiratory failure: S/P self-extubation 2. shock, ddx: septic vs cardiogenic : Resolved 3. CHF exacerbation, right sided, preserved EF 3. Acute/Chronic Renal F 4. Abnormal Trop: NSTEMI vs Leakage 3. UTI/lower extremity infection Hypertension. 4. Diabetes type 2, controlled with A1c of 6.3. 5. Pain management. 6. PAH 7. 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 HyperNatremia 6. GI and DVT prophylaxis. PLAN OF CARE: Grave prognosis Off pressor, preserved BP Empirical abx, per ID Will Followup with pulmonary for post - extubation care, Discussed the care with Dr Ritchie at the bed side Subjective Allergies: Coded Allergies: ASPIRIN (Verified Allergy, Intermediate, Hives, 01/06/13) PENICILLINS (Verified Allergy, Intermediate, Hives, 01/06/13) Objective Last 24 Hour Vital Signs Date Time Temp Pulse Resp B/P (MAP) Pulse Ox O2 Delivery O2 Flow Rate FiO2 05/24/18 14:40 94 20 97 05/24/18 14:00 96 18 106/88 (94) 87 05/24/18 13:00 86 20 115/81 (92) 86 05/24/18 12:05 88 19 97 Facial 40 05/24/18 12:00 10.0 45 05/24/18 12:00 98.6 99 128/94 (105) 100 05/24/18 12:00 Venturi Mask 10.0 Venturi Mask 05/24/18 11:20 Non-Rebreather 15.0 100 05/24/18 11:00 87 12 92 05/24/18 10:57 93 26 30 05/24/18 10:00 114 18 137/104 (115) 92 05/24/18 09:06 137/101 05/24/18 09:00 98.3 91 22 137/101 (113) 95 05/24/18 08:39 78 25 30 05/24/18 08:38 95 05/24/18 08:00 30 05/24/18 08:00 68 05/24/18 08:00 69 125/94 (104) 97 05/24/18 08:00 Mechanical Ventilator 05/24/18 07:00 68 18 136/90 (105) 98 05/24/18 06:30 67 18 30 05/24/18 06:00 73 18 131/65 (87) 97 05/24/18 05:20 79 22 30 05/24/18 05:00 69 18 122/84 (97) 98 05/24/18 04:07 71 05/24/18 04:00 Mechanical Ventilator 05/24/18 04:00 30 05/24/18 04:00 98.3 67 16 117/73 (88) 96 05/24/18 03:17 71 18 30 05/24/18 03:00 71 16 116/71 (86) 97 05/24/18 02:00 79 9 104/81 (89) 96 05/24/18 01:23 74 21 30 05/24/18 01:00 69 0 102/73 (83) 97 05/24/18 00:00 98.2 71 18 107/72 (84) 97 05/24/18 00:00 Mechanical Ventilator 05/24/18 00:00 30 05/23/18 23:55 68 05/23/18 23:00 71 18 103/79 (87) 97 05/23/18 22:58 70 18 30 05/23/18 22:00 70 18 113/79 (90) 97 05/23/18 21:23 78 22 30 05/23/18 21:00 76 17 120/76 (91) 97 05/23/18 20:00 Mechanical Ventilator 05/23/18 20:00 98.4 75 20 123/91 (102) 97 05/23/18 20:00 30 05/23/18 19:59 76 05/23/18 19:24 76 18 30 05/23/18 19:00 76 18 116/94 (101) 97 05/23/18 18:51 116/86 1/27/19 18:00 85 19 107/95 (99) 97 05/23/18 17:09 82 24 30 05/23/18 17:00 72 19 107/84 (92) 97 05/23/18 16:00 Mechanical Ventilator 05/23/18 16:00 73 05/23/18 16:00 40 05/23/18 16:00 98.7 69 18 105/84 (91) 95 Intake and Output 05/23/18 05/24/18 18:59 06:59 Intake Total 440 ml 1220 ml Output Total 460 ml 565 ml Balance -20 ml 655 ml IV Total 440 ml 1160 ml Other 60 ml Output Urine Total 460 ml 485 ml Stool Total 80 ml Laboratory Tests 05/24/18 10:55: Arterial Blood pH 7.242*L, Arterial Blood Partial Pressure CO2 49.0H, Arterial Blood Partial Pressure O2 66.3L, Arterial Blood HCO3 20.6L, Arterial Blood Oxygen Saturation 90.0L, Arterial Blood Base Excess -6.8L, Aditya Test Positive 05/24/18 11:00: White Blood Count 12.0H, Red Blood Count 5.06, Hemoglobin 12.6, Hematocrit 43.0 , Mean Corpuscular Volume 85, Mean Corpuscular Hemoglobin 24.8L, Mean Corpuscular Hemoglobin Concent 29.3L, Red Cell Distribution Width 19.7H, Platelet Count 316, Mean Platelet Volume 8.5, Neutrophils (%) (Auto) 81.0H, Lymphocytes (%) (Auto) 13.5L, Monocytes (%) (Auto) 3.8, Eosinophils (%) (Auto) 1.1, Basophils (%) (Auto) 0.6 05/24/18 12:00: Sodium Level 150H, Potassium Level 4.0, Chloride Level 118H, Carbon Dioxide Level 24, Anion Gap 8, Blood Urea Nitrogen 43H, Creatinine 1.2, Estimat Glomerular Filtration Rate 54.7, Glucose Level 89, Calcium Level 8.9, Total Bilirubin 1.3H, Direct Bilirubin 0.8H, Aspartate Amino Transf (AST/SGOT) 46H, Alanine Aminotransferase (ALT/SGPT) 8L, Alkaline Phosphatase 247H, Total Protein 6.4, Albumin 2.1L, Globulin 4.3, Albumin/Globulin Ratio 0.5L Height (Feet): 5 Height (Inches): 3.00 Weight (Pounds): 324 Margaret Mckinney MD May 24, 2018 15:36
--- NOTE | 2018-05-24 16:08 | Pulmonolgy Critical Care Note ---
Critical Care - Asmt/Plan Assessment/Plan: 67 y/o female w/ DM, CKD, morbid obesity admitted with b/l LE cellulitis and altered mental status. Problem List: 1. Altered mental status 2. Acute hypercapnic respiratory failure -intubated 05/15 -self-extubated 05/24 3. Bilateral lower extremity cellulitis 4. RACHELLE on CKD 5. DM 6. Morbid obesity 7. Elevated ammonia level 8. RV failure 9. 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 Discussed with: nurses Critical Care - Objective Last 24 Hour Vital Signs Date Time Temp Pulse Resp B/P (MAP) Pulse Ox O2 Delivery O2 Flow Rate FiO2 05/24/18 14:40 94 20 97 05/24/18 14:00 96 18 106/88 (94) 87 05/24/18 13:00 86 20 115/81 (92) 86 05/24/18 12:05 88 19 97 Facial 40 05/24/18 12:00 10.0 45 05/24/18 12:00 98.6 99 128/94 (105) 100 05/24/18 12:00 Venturi Mask 10.0 Venturi Mask 05/24/18 11:20 Non-Rebreather 15.0 100 05/24/18 11:00 87 12 92 05/24/18 10:57 93 26 30 05/24/18 10:00 114 18 137/104 (115) 92 05/24/18 09:06 137/101 05/24/18 09:00 98.3 91 22 137/101 (113) 95 05/24/18 08:39 78 25 30 05/24/18 08:38 95 05/24/18 08:00 30 05/24/18 08:00 68 05/24/18 08:00 69 125/94 (104) 97 05/24/18 08:00 Mechanical Ventilator 05/24/18 07:00 68 18 136/90 (105) 98 05/24/18 06:30 67 18 30 05/24/18 06:00 73 18 131/65 (87) 97 05/24/18 05:20 79 22 30 05/24/18 05:00 69 18 122/84 (97) 98 05/24/18 04:07 71 05/24/18 04:00 Mechanical Ventilator 05/24/18 04:00 30 05/24/18 04:00 98.3 67 16 117/73 (88) 96 05/24/18 03:17 71 18 30 05/24/18 03:00 71 16 116/71 (86) 97 05/24/18 02:00 79 9 104/81 (89) 96 05/24/18 01:23 74 21 30 05/24/18 01:00 69 0 102/73 (83) 97 05/24/18 00:00 98.2 71 18 107/72 (84) 97 05/24/18 00:00 Mechanical Ventilator 05/24/18 00:00 30 05/23/18 23:55 68 05/23/18 23:00 71 18 103/79 (87) 97 05/23/18 22:58 70 18 30 05/23/18 22:00 70 18 113/79 (90) 97 05/23/18 21:23 78 22 30 05/23/18 21:00 76 17 120/76 (91) 97 05/23/18 20:00 Mechanical Ventilator 05/23/18 20:00 98.4 75 20 123/91 (102) 97 05/23/18 20:00 30 05/23/18 19:59 76 05/23/18 19:24 76 18 30 05/23/18 19:00 76 18 116/94 (101) 97 05/23/18 18:51 116/86 05/23/18 18:00 85 19 107/95 (99) 97 05/23/18 17:09 82 24 30 05/23/18 17:00 72 19 107/84 (92) 97 Status: awake HEENT: atraumatic Lungs: rales, rhonchi Heart: HR/BP stable Abdomen: non-tender Extremities: edema Micro: Microbiology Date/Time Source Procedure Growth Status 05/22/18 15:40 Blood Blood Culture - Preliminary NO GROWTH AFTER 24 HOURS Resulted 05/22/18 14:00 Blood Blood Culture - Preliminary NO GROWTH AFTER 24 HOURS Resulted 05/21/18 16:20 Blood Blood Culture - Preliminary NO GROWTH AFTER 48 HOURS Resulted Accucheck: 80 Critical Care - Subjective ROS Limited/Unobtainable: Yes Interval Events: Self-extubated this morning. Has been refusing BiPAP. ABG with respiratory and metabolic acidosis. Condition: critical IV Access: PICC EKG Rhythm: Sinus Rhythm Sputum Amount: None I&O: Intake and Output 05/23/18 05/24/18 18:59 06:59 Intake Total 440 ml 1220 ml Output Total 460 ml 565 ml Balance -20 ml 655 ml IV Total 440 ml 1160 ml Other 60 ml Output Urine Total 460 ml 485 ml Stool Total 80 ml Hemal Ritchie MD May 24, 2018 16:08
--- NOTE | 2018-05-24 17:05 | NUR ---
RESPIRATORY NOTE: VBG drawn per LUCIO Collins, run by or. Result: pH:7.367, pCO2 38.5, pO2 95.0, HCO3: 21.6, BE: -3.3, SO2 96.8, on Venturi mask 10L 45% FiO2. Reported to LUCIO Lockhart.
--- NOTE | 2018-05-24 18:26 | Podiatric Progress Note ---
Assessment/Plan Patient Lili Alcantar is a 67 year old female who was admitted on May 12, 2018 at 14:05 with Assessment/Plan A: DM with neuropathy PVD PAD left leg ulceration B/L digital eary signs of dry gangrene. p: - Pt seen and evaluated. - chart reviewed. - Temp 99 - WBC, 12 - blood, urine and sputum cx negative. - Wound Cx is noted to have polymicrobial infection. - Cont IV ABx per ID. - Bedside local I&D of digits R 2-4 perform dorsal, betadine prepped to digits, dorsal skin removed, underlying purulence was noted to digits 2-4. Wound Cx obtained, sent for C&S. - Ordered B/L LLE MRIs Please complete study if no contraindications present. R/ O OM deep ST infection. - Rec cont local wound care xeroforom to ulcerations and betadine to digits 1-5 B/L LE. - Pt awaiting stabilization and vasc procedures. - Will cont to monitor. - Will await MRI imaging studies to B/L LE to determine sx intervention is warranted. - Pod to cont to monitor. Subjective Allergies: Coded Allergies: ASPIRIN (Verified Allergy, Intermediate, Hives, 01/06/13) PENICILLINS (Verified Allergy, Intermediate, Hives, 01/06/13) Subjective S: Pt seen bedside for B/L leg ulcerations and gangrene of digits 1-5 B/L LE. Pt extubated this morning, resting at bedside. Objective Exam Last 24 Hour Vital Signs Date Time Temp Pulse Resp B/P (MAP) Pulse Ox O2 Delivery O2 Flow Rate FiO2 05/24/18 17:10 94 29 97 05/24/18 17:00 94 21 121/99 (106) 95 05/24/18 16:08 05/24/18 16:00 10.0 45 05/24/18 16:00 94 05/24/18 16:00 Venturi Mask 10.0 Venturi Mask 05/24/18 16:00 98.8 86 21 124/99 (107) 98 05/24/18 15:30 94 22 121/98 (106) 97 05/24/18 15:00 94 22 120/92 (101) 98 05/24/18 14:40 94 20 97 05/24/18 14:00 96 18 106/88 (94) 87 05/24/18 13:00 86 20 115/81 (92) 86 05/24/18 12:05 88 19 97 Facial 40 05/24/18 12:00 95 05/24/18 12:00 10.0 45 05/24/18 12:00 98.6 99 128/94 (105) 100 05/24/18 12:00 Venturi Mask 10.0 Venturi Mask 05/24/18 11:20 Non-Rebreather 15.0 100 05/24/18 11:00 87 12 92 05/24/18 10:57 93 26 30 05/24/18 10:00 114 18 137/104 (115) 92 05/24/18 09:06 137/101 05/24/18 09:00 98.3 91 22 137/101 (113) 95 05/24/18 08:39 78 25 30 05/24/18 08:38 95 05/24/18 08:00 30 05/24/18 08:00 68 05/24/18 08:00 69 125/94 (104) 97 05/24/18 08:00 Mechanical Ventilator 05/24/18 07:00 68 18 136/90 (105) 98 05/24/18 06:30 67 18 30 05/24/18 06:00 73 18 131/65 (87) 97 05/24/18 05:20 79 22 30 05/24/18 05:00 69 18 122/84 (97) 98 05/24/18 04:07 71 05/24/18 04:00 Mechanical Ventilator 05/24/18 04:00 30 05/24/18 04:00 98.3 67 16 117/73 (88) 96 05/24/18 03:17 71 18 30 05/24/18 03:00 71 16 116/71 (86) 97 05/24/18 02:00 79 9 104/81 (89) 96 05/24/18 01:23 74 21 30 05/24/18 01:00 69 0 102/73 (83) 97 05/24/18 00:00 98.2 71 18 107/72 (84) 97 05/24/18 00:00 Mechanical Ventilator 05/24/18 00:00 30 05/23/18 23:55 68 05/23/18 23:00 71 18 103/79 (87) 97 05/23/18 22:58 70 18 30 05/23/18 22:00 70 18 113/79 (90) 97 05/23/18 21:23 78 22 30 05/23/18 21:00 76 17 120/76 (91) 97 05/23/18 20:00 Mechanical Ventilator 05/23/18 20:00 98.4 75 20 123/91 (102) 97 05/23/18 20:00 30 05/23/18 19:59 76 05/23/18 19:24 76 18 30 05/23/18 19:00 76 18 116/94 (101) 97 05/23/18 18:51 116/86 Laboratory Tests Test 05/24/18 10:55 05/24/18 11:00 05/24/18 12:00 05/24/18 16:55 Arterial Blood pH 7.242 (7.350-7.450) Arterial Blood Partial Pressure CO2 49.0 mmHg (35.0-45.0) H Arterial Blood Partial Pressure O2 66.3 mmHg (75.0-100.0) L Arterial Blood HCO3 20.6 mmol/L (22.0-26.0) L Arterial Blood Oxygen Saturation 90.0 % (95-100) L Arterial Blood Base Excess -6.8 (-2-2) L Aditya Test Positive White Blood Count 12.0 K/UL (4.8-10.8) H Red Blood Count 5.06 M/UL (4.20-5.40) Hemoglobin 12.6 G/DL (12.0-16.0) Hematocrit 43.0 % (37.0-47.0) Mean Corpuscular Volume 85 FL (80-99) Mean Corpuscular Hemoglobin 24.8 PG (27.0-31.0) L Mean Corpuscular Hemoglobin Concent 29.3 G/DL (32.0-36.0) L Red Cell Distribution Width 19.7 % (11.6-14.8) H Platelet Count 316 K/UL (150-450) Mean Platelet Volume 8.5 FL (6.5-10.1) Neutrophils (%) (Auto) 81.0 % (45.0-75.0) H Lymphocytes (%) (Auto) 13.5 % (20.0-45.0) L Monocytes (%) (Auto) 3.8 % (1.0-10.0) Eosinophils (%) (Auto) 1.1 % (0.0-3.0) Basophils (%) (Auto) 0.6 % (0.0-2.0) Sodium Level 150 MMOL/L (136-145) H Potassium Level 4.0 MMOL/L (3.5-5.1) Chloride Level 118 MMOL/L (98-107) H Carbon Dioxide Level 24 MMOL/L (21-32) Anion Gap 8 mmol/L (5-15) Blood Urea Nitrogen 43 mg/dL (7-18) H Creatinine 1.2 MG/DL (0.55-1.30) Estimat Glomerular Filtration Rate 54.7 mL/min (>60) Glucose Level 89 MG/DL (74-106) Calcium Level 8.9 MG/DL (8.5-10.1) Total Bilirubin 1.3 MG/DL (0.2-1.0) H Direct Bilirubin 0.8 MG/DL (0.0-0.3) H Aspartate Amino Transf (AST/SGOT) 46 U/L (15-37) H Alanine Aminotransferase (ALT/SGPT) 8 U/L (12-78) L Alkaline Phosphatase 247 U/L (46-116) H Total Protein 6.4 G/DL (6.4-8.2) Albumin 2.1 G/DL (3.4-5.0) L Globulin 4.3 g/dL Albumin/Globulin Ratio 0.5 (1.0-2.7) L Venous Blood pH Pending Venous Blood Partial Pressure CO2 Pending Venous Blood Partial Pressure O2 Pending Venous Blood HCO3 Pending Venous Blood Total Carbon Dioxide Pending Venous Bld O2 Saturation (Measured) 95.0 Venous Blood Oxygen Saturation Pending Venous Blood Base Excess Pending Methemoglobin 0.5 Sodium (Blood Gas) Pending Microbiology Date/Time Source Procedure Growth Status 05/22/18 15:40 Blood Blood Culture - Preliminary NO GROWTH AFTER 24 HOURS Resulted 05/21/18 11:51 Sputum Gram Stain - Final Complete 05/21/18 11:51 Sputum Sputum Culture - Final NORMAL UPPER RESPIRATORY EZEQUIEL PRESENT Complete 05/13/18 08:45 Urine,Clean Catch Urine Culture - Final NO GROWTH AFTER 48 HOURS Complete 05/12/18 18:20 Leg Right Gram Stain - Final Complete 05/12/18 18:20 Wound Culture - Final Diphtheroids Complete Dermatological Dermatological Narrative Dermatological Narrative VASCULAR: - DP/PT non-palpable. - edema noted distal to tibial tuberosity to B/L LE. NEUROLOGIC: - SILT and protective sensation decreased to all dermatomes B/L. MUSCULOSKELETAL: -The patient is bedbound with decreased muscle strength to all qudarants. No gross deformities appreciated. DERMATOLOGICAL: RLE - necrosis noted to digits 1-5 B/L . Early signs of dry gangrene is noted. Minimal purulence noted dorsal digits 2-4. LLE: - Ulceration is noted to the anterior aspect of the left leg two spots noted, The ulcerations noted to be 4.0 cm x 1.0 cm in diameter, with wound base noted to be at subQ with fibrotic tissue. No active purulent drainage noted. - necrosis noted to digits 1-5. Early signs of dry gangrene is noted. Jordin Obregon DPM May 24, 2018 18:26
[2018-05-24] MEDS: DOPamine 400mg/250ml 250 ML IV SCH (19:00)
--- NOTE | 2018-05-24 19:25 | NUR ---
NURSE NOTES: Report received from LUCIO Lockhart. Pt A/Ox3-4.Cadiac monitor shows SR w/1st degree AV block. Pt currently has a venturi mask @ 45% FiO2, 15 L. Tolerating settings well. Shows no signs of cardiac or respiratory distress. Pt currently NPO until bedside swallow test done. A rectal tube and neff catheter is present and draining well. Accuchecks are Q6h. Multiple wounds present, see WCP for skin alterations. Pt has a FLORENCIO PICC and a LH20g. Bilateral wrist restraints present. No evidence of skin breakdown or swelling noted. Bed in lowest position, bed alarms placed. Will continue to monitor and with patients plan of care.
--- NOTE | 2018-05-24 19:40 | NUR ---
HAND-OFF: Report given to Erika.endorsed reporting VBG results to PCP.
[2018-05-24] MEDS: Atorvastatin 20mg tab ORAL SCH (21:00)
--- NOTE | 2018-05-24 21:05 | NUR ---
NURSE NOTES: Pt awake and anxious. Daughter at bedside. Teachings of restraint use and removal requirements discussed in depth with patient and daughter. Verbalized understanding. Will continue to monitor.
[2018-05-24] MEDS: Dyna-Hex 2% Top Sol 2oz TOPIC SCH (21:15)
--- NOTE | 2018-05-24 23:30 | NUR ---
NURSE NOTES: Pt repositioned, continues to be restless. Ice chips provided. Discussed importance of use of venturi mask. VSS. Will continue to monitor.
--- NOTE | 2018-05-24 23:53 | Cardiology Progress Note ---
Assessment/Plan Assessment/Plan 1. Acute hypoxic hypercarbic respiratory failure, extubated. 2D echocardiography shows normal LV systolic function with a normal left atrial pressure, however e/o right heart failure. 2. Right heart failure, pre-load sensitive, avoid aggressive diuretic use, evidence of RA and RV dilatation and severe RV systolic dysfunction, associated pulmonary HTN, ? type. 3. Paroxysmal atrial fibrillation, currently sinus rhythm. 4. Hypotension likely due to RV failure, resolved, on midodrine, grim prognosis. 5. Slight elevation of troponin I level in this patient most likely due to RV strain/failure. Subjective Subjective Sinus rhythm at rate of 84. Extubated on venturi mask. Objective Last 24 Hour Vital Signs Date Time Temp Pulse Resp B/P (MAP) Pulse Ox O2 Delivery O2 Flow Rate FiO2 05/24/18 23:01 84 18 99 05/24/18 21:02 82 18 99 05/24/18 20:00 Venturi Mask 10.0 Venturi Mask 05/24/18 19:49 92 16 98 05/24/18 19:00 94 21 135/93 (107) 99 05/24/18 18:00 94 21 124/99 (107) 95 05/24/18 17:10 94 29 97 05/24/18 17:00 94 21 121/99 (106) 95 05/24/18 16:08 05/24/18 16:00 10.0 45 05/24/18 16:00 94 05/24/18 16:00 Venturi Mask 10.0 Venturi Mask 05/24/18 16:00 98.8 86 21 124/99 (107) 98 05/24/18 15:30 94 22 121/98 (106) 97 05/24/18 15:00 94 22 120/92 (101) 98 05/24/18 14:40 94 20 97 05/24/18 14:00 96 18 106/88 (94) 87 05/24/18 13:00 86 20 115/81 (92) 86 05/24/18 12:05 88 19 97 Facial 40 05/24/18 12:00 95 05/24/18 12:00 10.0 45 05/24/18 12:00 98.6 99 128/94 (105) 100 05/24/18 12:00 Venturi Mask 10.0 Venturi Mask 05/24/18 11:20 Non-Rebreather 15.0 100 05/24/18 11:00 87 12 92 05/24/18 10:57 93 26 30 05/24/18 10:00 114 18 137/104 (115) 92 05/24/18 09:06 137/101 05/24/18 09:00 98.3 91 22 137/101 (113) 95 05/24/18 08:39 78 25 30 05/24/18 08:38 95 05/24/18 08:00 30 05/24/18 08:00 68 05/24/18 08:00 69 125/94 (104) 97 05/24/18 08:00 Mechanical Ventilator 05/24/18 07:00 68 18 136/90 (105) 98 05/24/18 06:30 67 18 30 05/24/18 06:00 73 18 131/65 (87) 97 05/24/18 05:20 79 22 30 05/24/18 05:00 69 18 122/84 (97) 98 05/24/18 04:07 71 05/24/18 04:00 Mechanical Ventilator 05/24/18 04:00 30 05/24/18 04:00 98.3 67 16 117/73 (88) 96 05/24/18 03:17 71 18 30 05/24/18 03:00 71 16 116/71 (86) 97 05/24/18 02:00 79 9 104/81 (89) 96 05/24/18 01:23 74 21 30 05/24/18 01:00 69 0 102/73 (83) 97 05/24/18 00:00 98.2 71 18 107/72 (84) 97 05/24/18 00:00 Mechanical Ventilator 05/24/18 00:00 30 05/23/18 23:55 68 Intake and Output 05/23/18 05/24/18 19:00 07:00 Intake Total 440 ml 1220 ml Output Total 465 ml 590 ml Balance -25 ml 630 ml IV Total 440 ml 1160 ml Other 60 ml Output Urine Total 465 ml 510 ml Stool Total 80 ml 2D Echo: LVEF 55%, D-shaped septum due to RV pressure overload, Massive RA/RV size. Laboratory Tests Test 05/24/18 10:55 05/24/18 11:00 05/24/18 12:00 05/24/18 16:55 Arterial Blood pH 7.242 (7.350-7.450) Arterial Blood Partial Pressure CO2 49.0 mmHg (35.0-45.0) H Arterial Blood Partial Pressure O2 66.3 mmHg (75.0-100.0) L Arterial Blood HCO3 20.6 mmol/L (22.0-26.0) L Arterial Blood Oxygen Saturation 90.0 % (95-100) L Arterial Blood Base Excess -6.8 (-2-2) L Aditya Test Positive White Blood Count 12.0 K/UL (4.8-10.8) H Red Blood Count 5.06 M/UL (4.20-5.40) Hemoglobin 12.6 G/DL (12.0-16.0) Hematocrit 43.0 % (37.0-47.0) Mean Corpuscular Volume 85 FL (80-99) Mean Corpuscular Hemoglobin 24.8 PG (27.0-31.0) L Mean Corpuscular Hemoglobin Concent 29.3 G/DL (32.0-36.0) L Red Cell Distribution Width 19.7 % (11.6-14.8) H Platelet Count 316 K/UL (150-450) Mean Platelet Volume 8.5 FL (6.5-10.1) Neutrophils (%) (Auto) 81.0 % (45.0-75.0) H Lymphocytes (%) (Auto) 13.5 % (20.0-45.0) L Monocytes (%) (Auto) 3.8 % (1.0-10.0) Eosinophils (%) (Auto) 1.1 % (0.0-3.0) Basophils (%) (Auto) 0.6 % (0.0-2.0) Sodium Level 150 MMOL/L (136-145) H Potassium Level 4.0 MMOL/L (3.5-5.1) Chloride Level 118 MMOL/L (98-107) H Carbon Dioxide Level 24 MMOL/L (21-32) Anion Gap 8 mmol/L (5-15) Blood Urea Nitrogen 43 mg/dL (7-18) H Creatinine 1.2 MG/DL (0.55-1.30) Estimat Glomerular Filtration Rate 54.7 mL/min (>60) Glucose Level 89 MG/DL (74-106) Calcium Level 8.9 MG/DL (8.5-10.1) Total Bilirubin 1.3 MG/DL (0.2-1.0) H Direct Bilirubin 0.8 MG/DL (0.0-0.3) H Aspartate Amino Transf (AST/SGOT) 46 U/L (15-37) H Alanine Aminotransferase (ALT/SGPT) 8 U/L (12-78) L Alkaline Phosphatase 247 U/L (46-116) H Total Protein 6.4 G/DL (6.4-8.2) Albumin 2.1 G/DL (3.4-5.0) L Globulin 4.3 g/dL Albumin/Globulin Ratio 0.5 (1.0-2.7) L Venous Blood pH Pending Venous Blood Partial Pressure CO2 Pending Venous Blood Partial Pressure O2 Pending Venous Blood HCO3 Pending Venous Blood Total Carbon Dioxide Pending Venous Bld O2 Saturation (Measured) 95.0 Venous Blood Oxygen Saturation Pending Venous Blood Base Excess Pending Methemoglobin 0.5 Sodium (Blood Gas) Pending Microbiology Date/Time Source Procedure Growth Status 05/22/18 15:40 Blood Blood Culture - Preliminary NO GROWTH AFTER 24 HOURS Resulted 05/22/18 14:00 Blood Blood Culture - Preliminary NO GROWTH AFTER 24 HOURS Resulted Objective HEENT: Atraumatic and normocephalic. Anicteric. Pupils are equal, round, and reactive to light and accommodation. Extraocular muscles intact. NECK: JVP ~20cm, No carotid bruit. Carotid upstroke is 2+ bilaterally. CVS: Normal S1 and S2. Regular rate and rhythm. RV heave, No murmurs, gallops , or rubs. LUNGS: Diminished breath sounds in both lungs with rhonchi bilaterally. ABDOMEN: Soft, nontender, and nondistended. No hepatosplenomegaly. Positive bowel sounds. EXTREMITIES: No evidence of edema, clubbing, or cyanosis. There is venous stasis of lower extremities with associated ulceration. Justice Erickson MD May 24, 2018 23:53
[2018-05-25] VITALS (25 sets, daily range): BP systolic 107–143; BP diastolic 76–128
[2018-05-25] MEDS: AZTREONAM IVPB SCH ×8 (00:58→17:42)
[2018-05-25] MEDS: [UNRECOGNIZED DRUG - OTHER] IVPB SCH ×8 (00:58→17:42)
--- NOTE | 2018-05-25 01:00 | NUR ---
NURSE NOTES: Pt alert, resting comfortably. Repositioned once more. VSS. Will continue to monitor
--- NOTE | 2018-05-25 03:00 | NUR ---
NURSE NOTES: Pt cleaned and repositioned. Active range of motion provided. Reinforcement of restraint use and venturi mask discussed. VSS.
[2018-05-25 05:49] LABS: BASOPHILS % (AUTO) 1.2 % (0.0-2.0); EOSINOPHILS % (AUTO) 0.7 % (0.0-3.0); HEMOGLOBIN 12.1 G/DL (12.0-16.0); LYMPHOCYTES % (AUTO) 12.6 % (20.0-45.0); MEAN CORPUSCULAR VOLUME 86 FL (80-99); MONOCYTES % (AUTO) 6.1 % (1.0-10.0); NEUTROPHILS % (AUTO) 79.4 % (45.0-75.0); PLATELET COUNT 265 K/UL (150-450); RED BLOOD COUNT 4.79 M/UL (4.20-5.40); RED CELL DISTRIBUTION WIDTH 20.5 % (11.6-14.8)
[2018-05-25] MEDS: NovoLOG Insulin Flexpen SUBQ SCH ×4 (06:00→17:45)
[2018-05-25 06:08] LABS: ALANINE AMINOTRANSFERASE 10 U/L (12-78); ALBUMIN 2.3 G/DL (3.4-5.0); ALBUMIN/GLOBULIN RATIO 0.5 (1.0-2.7); ALKALINE PHOSPHATASE 241 U/L (46-116); ANION GAP 8 mmol/L (5-15); ASPARTATE AMINO TRANSFERASE 36 U/L (15-37); BLOOD UREA NITROGEN 41 mg/dL (7-18); CALCIUM 9.2 MG/DL (8.5-10.1); CARBON DIOXIDE 26 MMOL/L (21-32); CHLORIDE 116 MMOL/L (98-107); CREATININE 1.4 MG/DL (0.55-1.30); POTASSIUM 3.5 MMOL/L (3.5-5.1); SODIUM 150 MMOL/L (136-145)
--- NOTE | 2018-05-25 07:35 | NUR ---
NURSE NOTES: Received report from Erika VALDES. Patient alert, oriented x3. no c/o pain. pt lying to left side, venturi masked off. ask to replace mask pt states No. abdomen firm, round, rectal tube noted and patent, collecting brownish stool. F/C intact and patent, light yung color urine w/ red sediment, PICC line to left upper arm clamped. Bilateral soft wrist restraints for safety. on berimax bed. lower legs dressing clean and intact. hob>45. bed in low position, will continue to monitor.
--- NOTE | 2018-05-25 08:00 | NUR ---
NURSE NOTES: radiology here to do CXR.
[2018-05-25 08:14] LABS: BILIRUBIN,TOTAL 1.5 MG/DL (0.2-1.0)
--- NOTE | 2018-05-25 08:14 | NUR ---
NURSE NOTES: audiometric technician assessment pt.
[2018-05-25 08:15] LABS: BILIRUBIN,DIRECT 0.9 MG/DL (0.0-0.3)
--- NOTE | 2018-05-25 09:25 | NUR ---
ST NOTE: BEDSIDE SWALLOW EVAL RECEIVED BEDSIDE SWALLOW EVAL ORDER CHART REVIEWED PRIOR THE EVALUATION PT IS 67-YEAR-OLD FEMALE WHO WAS ADMITTED DUE TO BILATERAL LOWER EXTREMITY CELLULITIS. PT DEVELOPED ACUTE RESP FAILURE AND WAS INTUBATED ON 05/15/2018 AND PT SELF-EXTUBATED 05/24/18. DYSPHAGIA RISK FACTORS: H/O CVA(2006), HTN, COPD, BRONCHITIS, OBESITY, DMII, CHF, DEPRESSION. PLOF: PT IS FROM HOME. CURRENT STATUS: PT SEEN AT BEDSIDE IN AM. ALERT, COOPERATIVE, FOLLOWS DIRECTIONS, SEEMS SLIGHTLY CONFUSED. PT WITH VENTURI MASK(10L). ADJUST PT AT 60 DEGREE(BED LIMITATION) PER PT, DENIED ANY SWALLOWING DIFFICULTY, HOARSENESS WAS NOTED(PER PT, IT IS HER PLOF). GIVEN PO TRIALS: ICE-CHIPS(TSP), THIN(TSP) AND PUREE(TSP), PT REFUSED TO TAKE MASTICATED SOLID. INITIAL IMPRESSION: PROBABLE MILD OROPHARYNGEAL DYSPHAGIA MISS SOME MOLAR TEETH GOOD LABIAL AND LINGUAL MOVEMENT AND STRENGTH. GOOD ORAL TRANSIT TIME TIME AND MILD INCREASED OROPHARYNGEAL TRANSIT TIME, FAIR TO GOOD LARYNGEAL ELEVATION, NO OVERT S/S OF ASPIRATION. DUE TO PT HAS H/O CVA, AND RECENT INTUBATION, PT HAS RISK FOR ASPIRATION. PER RD, RECOMMENDED CCHO(LOW) AND CARDIAC RECOMMENDATIONS: 1. FOR QUALITY OF LIFE, SLOWLY INITIATE CCHO(LOW), CARDIAC MOIST PUREE WITH NECTAR THICK LIQUIDS DIET. 2. STRICT ASPIRATION/REFLUX PRECAUTIONS WITH DIRECT SUPERVISION. 3. VIDEOSWALLOW STUDY IF NEEDED. 4. SKILLED ST TO FOLLOW UP. D/W RNИРИНА. POSTED ASPIRATION PRECAUTIONS SIGN.
[2018-05-25] MEDS: Ascorbic Acid 500mg tab NG SCH ×2 (09:48→17:42)
[2018-05-25] MEDS: Nitroglycerin Patch 0.4mg TDERMAL SCH (09:49)
[2018-05-25] MEDS: Betadine 4oz Bottle TOPIC SCH ×2 (09:49→17:43)
[2018-05-25] MEDS: Pantoprazole Inj IVP SCH (09:52)
[2018-05-25] MEDS: Vancomycin 750mg/NS 250ml IVPB SCH (09:53)
--- NOTE | 2018-05-25 11:38 | NUR ---
RADIOLOGY DEPT CHEST X-RAY DONE.-P.DYE
--- NOTE | 2018-05-25 12:00 | NUR ---
NURSE NOTES: pt placed 02sat 93% Vss. Requires reassurance to calm anxiety. was informed that brother called and checked in on her. he states will try and call her children for detail on health/outcome. pt cleaned and repositioned. will continue to monitor pt closely.
--- NOTE | 2018-05-25 12:00 | Diagnostic Imaging Report ---
Indication: Shortness of breath Technique: One view of the chest Comparison: 05/16/2017 Findings: The heart is markedly enlarged. Interstitial and airspace infiltrates versus edema persists, unchanged. Left arm PICC is again demonstrated. Pleural spaces are clear. Findings are unchanged Impression: Unchanged, over one day, findings as above.
--- NOTE | 2018-05-25 12:48 | Pulmonolgy Critical Care Note ---
Critical Care - Asmt/Plan Assessment/Plan: 67 y/o female w/ DM, CKD, morbid obesity admitted with b/l LE cellulitis and altered mental status. Problem List: 1. Altered mental status 2. Acute hypercapnic respiratory failure -intubated 05/15 -self-extubated 05/24 3. Bilateral lower extremity cellulitis 4. RACHELLE on CKD 5. DM 6. Morbid obesity 7. Elevated ammonia level 8. RV failure 9. Acute diastolic Congestive heart failure Plan: -monitor respiratory status s/p self-extubation -BiPAP if she will allow -check VBG now to assess -monitor volumes and renal function -lasix 20 mg IV daily continue, the patient has gross anasarca -CXR with pulmonary edema -Abx per ID Case d/w [employer] Respiratory: adjust FIO2 Cardiac: continue to monitor HR/BP Renal: F/U I&O Infectious Disease: continue antibiotics Time Spent (Minutes): 40 Discussed with: nurses Critical Care - Objective Last 24 Hour Vital Signs Date Time Temp Pulse Resp B/P (MAP) Pulse Ox O2 Delivery O2 Flow Rate FiO2 05/25/18 12:00 92 27 134/97 (109) 94 05/25/18 12:00 92 05/25/18 11:36 92 22 99 05/25/18 11:00 95 17 132/113 (119) 91 05/25/18 10:00 87 0 139/117 (124) 99 05/25/18 09:49 136/109 05/25/18 09:35 90 22 98 05/25/18 09:00 90 18 140/117 (125) 100 05/25/18 08:00 98.7 88 17 142/115 (124) 91 05/25/18 08:00 Venturi Mask 10.0 Venturi Mask 05/25/18 08:00 93 05/25/18 07:27 92 20 96 05/25/18 07:00 86 16 134/102 (113) 98 05/25/18 06:00 92 19 133/112 (119) 99 05/25/18 05:00 85 19 133/99 (110) 97 05/25/18 04:45 91 20 98 05/25/18 04:00 92 05/25/18 04:00 Venturi Mask 10.0 Venturi Mask 05/25/18 04:00 74 19 107/76 (86) 96 05/25/18 03:00 91 18 117/97 (104) 96 05/25/18 02:52 89 18 98 05/25/18 02:00 88 17 124/98 (107) 97 05/25/18 01:00 86 18 99 05/25/18 01:00 89 17 124/102 (109) 98 05/25/18 00:00 98.7 88 19 118/86 (97) 98 05/25/18 00:00 85 05/25/18 00:00 Venturi Mask 10.0 Venturi Mask 05/24/18 23:01 84 18 99 05/24/18 23:00 85 15 129/101 (110) 98 05/24/18 22:00 93 19 124/98 (107) 94 05/24/18 21:02 82 18 99 05/24/18 21:00 91 20 118/100 (106) 96 05/24/18 20:00 Venturi Mask 10.0 Venturi Mask 05/24/18 20:00 98.6 92 20 120/89 (99) 93 05/24/18 20:00 91 05/24/18 19:49 92 16 98 05/24/18 19:00 94 21 135/93 (107) 99 05/24/18 18:00 94 21 124/99 (107) 95 05/24/18 17:10 94 29 97 05/24/18 17:00 94 21 121/99 (106) 95 05/24/18 16:08 05/24/18 16:00 10.0 45 05/24/18 16:00 94 05/24/18 16:00 Venturi Mask 10.0 Venturi Mask 05/24/18 16:00 98.8 86 21 124/99 (107) 98 05/24/18 15:30 94 22 121/98 (106) 97 05/24/18 15:00 94 22 120/92 (101) 98 05/24/18 14:40 94 20 97 05/24/18 14:00 96 18 106/88 (94) 87 05/24/18 13:00 86 20 115/81 (92) 86 Status: awake Condition: improving HEENT: atraumatic, normocephalic Lungs: rales Heart: HR/BP stable Abdomen: soft Extremities: edema Micro: Microbiology Date/Time Source Procedure Growth Status 05/22/18 15:40 Blood Blood Culture - Preliminary NO GROWTH AFTER 48 HOURS Resulted 05/22/18 14:00 Blood Blood Culture - Preliminary NO GROWTH AFTER 48 HOURS Resulted Accucheck: 77 Critical Care - Subjective ROS Limited/Unobtainable: Yes Interval Events: Has continued to tolerate self-extubation. Saturation stable on nasal cannula. Agitated. CXR with gross pulmonary edema. Condition: improving EKG Rhythm: Sinus Rhythm Sputum Amount: None I&O: Intake and Output 05/24/18 05/25/18 19:00 07:00 Intake Total 833.334 ml 495.000 ml Output Total 480 ml 395 ml Balance 353.334 ml 100.000 ml Intake Oral 25 ml IV Total 773.334 ml 470.000 ml Other 60 ml Output Urine Total 400 ml 375 ml Stool Total 80 ml 20 ml # Bowel Movements 1 Hemal Ritchie MD May 25, 2018 12:48
[2018-05-25] MEDS: fentaNYL Citrate 1000 MCG in NS 100ml IV SCH (13:00)
--- NOTE | 2018-05-25 14:07 | GI Progress Note ---
Assessment/Plan Problems: (1) DM (diabetes mellitus) ICD Codes: E11.9 - DM (diabetes mellitus) SNOMED: 92258482 (2) Intractable abdominal pain ICD Codes: R10.9 - Unspecified abdominal pain SNOMED: 86056812 (3) Elevated transaminase level ICD Codes: R74.0 - Nonspecific elevation of levels of transaminase and lactic acid dehydrogenase [LDH] SNOMED: 878787011 (4) Abdominal distension ICD Codes: R14.0 - Abdominal distension (gaseous) SNOMED: 11757231 (5) Liver disease ICD Codes: K76.9 - Liver disease, unspecified SNOMED: 999797054 (6) Acute encephalopathy ICD Codes: G93.40 - Encephalopathy, unspecified SNOMED: 67968545, 566817581 Status: progressing Status Narrative Discussed with Dr. Paul. Assessment/Plan OB stool negative x2 hepatitis panel negative abdominal US reviewed >> - Ascites - Borderline hepatomegaly - Thick-walled gallbladder, likely in part artifact of nondistention, and in part due to hemodynamic factors causing the ascites. No definite gallstones. Acute cholecystitis not completely excludable, due to the wall thickening, and hepatobiliary scan should be considered if there is high clinical suspicion for such. - Negative for dilated ducts - To and fro flow within the main portal vein, could indicate portal hypertension HIDA and paracentesis when respiratory status stabilizes on puree diet cont lactulose Wean off of sedatives and narcotics monitor H&H, prn transfusions rectal tube bowel regime ppi fu labs will consider endoscopy pending work up, but will require cardiac clearance given elevated troponin levels The patient was seen and examined at bedside and all new and available data was reviewed in the patients chart. I agree with the above findings, impression and plan. (Patient seen earlier today. Signature stamp does not reflect patient encounter time.). - Robert Paul MD Subjective Subjective limited Objective Last 24 Hour Vital Signs Date Time Temp Pulse Resp B/P (MAP) Pulse Ox O2 Delivery O2 Flow Rate FiO2 05/25/18 12:00 92 27 134/97 (109) 94 05/25/18 12:00 92 05/25/18 11:36 92 22 99 05/25/18 11:00 95 17 132/113 (119) 91 05/25/18 10:00 87 0 139/117 (124) 99 05/25/18 09:49 136/109 05/25/18 09:35 90 22 98 05/25/18 09:00 90 18 140/117 (125) 100 05/25/18 08:00 98.7 88 17 142/115 (124) 91 05/25/18 08:00 Venturi Mask 10.0 Venturi Mask 05/25/18 08:00 93 05/25/18 07:27 92 20 96 05/25/18 07:00 86 16 134/102 (113) 98 05/25/18 06:00 92 19 133/112 (119) 99 05/25/18 05:00 85 19 133/99 (110) 97 05/25/18 04:45 91 20 98 05/25/18 04:00 92 05/25/18 04:00 Venturi Mask 10.0 Venturi Mask 05/25/18 04:00 74 19 107/76 (86) 96 05/25/18 03:00 91 18 117/97 (104) 96 05/25/18 02:52 89 18 98 05/25/18 02:00 88 17 124/98 (107) 97 05/25/18 01:00 86 18 99 05/25/18 01:00 89 17 124/102 (109) 98 05/25/18 00:00 98.7 88 19 118/86 (97) 98 05/25/18 00:00 85 05/25/18 00:00 Venturi Mask 10.0 Venturi Mask 05/24/18 23:01 84 18 99 05/24/18 23:00 85 15 129/101 (110) 98 05/24/18 22:00 93 19 124/98 (107) 94 05/24/18 21:02 82 18 99 05/24/18 21:00 91 20 118/100 (106) 96 05/24/18 20:00 Venturi Mask 10.0 Venturi Mask 05/24/18 20:00 98.6 92 20 120/89 (99) 93 05/24/18 20:00 91 05/24/18 19:49 92 16 98 05/24/18 19:00 94 21 135/93 (107) 99 05/24/18 18:00 94 21 124/99 (107) 95 05/24/18 17:10 94 29 97 05/24/18 17:00 94 21 121/99 (106) 95 05/24/18 16:08 05/24/18 16:00 10.0 45 05/24/18 16:00 94 05/24/18 16:00 Venturi Mask 10.0 Venturi Mask 05/24/18 16:00 98.8 86 21 124/99 (107) 98 05/24/18 15:30 94 22 121/98 (106) 97 05/24/18 15:00 94 22 120/92 (101) 98 05/24/18 14:40 94 20 97 Intake and Output 05/24/18 05/25/18 19:00 07:00 Intake Total 833.334 ml 495.000 ml Output Total 480 ml 395 ml Balance 353.334 ml 100.000 ml Intake Oral 25 ml IV Total 773.334 ml 470.000 ml Other 60 ml Output Urine Total 400 ml 375 ml Stool Total 80 ml 20 ml # Bowel Movements 1 Laboratory Tests Test 05/24/18 16:55 05/25/18 04:00 05/25/18 14:00 Venous Blood pH Pending Pending Venous Blood Partial Pressure CO2 Pending Pending Venous Blood Partial Pressure O2 Pending Pending Venous Blood HCO3 Pending Pending Venous Blood Total Carbon Dioxide Pending Pending Venous Bld O2 Saturation (Measured) 95.0 61.6 Venous Blood Oxygen Saturation Pending Pending Venous Blood Base Excess Pending Pending Methemoglobin 0.5 0.5 Sodium (Blood Gas) Pending Pending White Blood Count 10.0 K/UL (4.8-10.8) Red Blood Count 4.79 M/UL (4.20-5.40) Hemoglobin 12.1 G/DL (12.0-16.0) Hematocrit 41.0 % (37.0-47.0) Mean Corpuscular Volume 86 FL (80-99) Mean Corpuscular Hemoglobin 25.2 PG (27.0-31.0) L Mean Corpuscular Hemoglobin Concent 29.4 G/DL (32.0-36.0) L Red Cell Distribution Width 20.5 % (11.6-14.8) H Platelet Count 265 K/UL (150-450) Mean Platelet Volume 9.1 FL (6.5-10.1) Neutrophils (%) (Auto) 79.4 % (45.0-75.0) H Lymphocytes (%) (Auto) 12.6 % (20.0-45.0) L Monocytes (%) (Auto) 6.1 % (1.0-10.0) Eosinophils (%) (Auto) 0.7 % (0.0-3.0) Basophils (%) (Auto) 1.2 % (0.0-2.0) Sodium Level 150 MMOL/L (136-145) H Potassium Level 3.5 MMOL/L (3.5-5.1) Chloride Level 116 MMOL/L (98-107) H Carbon Dioxide Level 26 MMOL/L (21-32) Anion Gap 8 mmol/L (5-15) Blood Urea Nitrogen 41 mg/dL (7-18) H Creatinine 1.4 MG/DL (0.55-1.30) H Estimat Glomerular Filtration Rate 45.8 mL/min (>60) Glucose Level 59 MG/DL (74-106) L Calcium Level 9.2 MG/DL (8.5-10.1) Total Bilirubin 1.5 MG/DL (0.2-1.0) H Direct Bilirubin 0.9 MG/DL (0.0-0.3) H Aspartate Amino Transf (AST/SGOT) 36 U/L (15-37) Alanine Aminotransferase (ALT/SGPT) 10 U/L (12-78) L Alkaline Phosphatase 241 U/L (46-116) H Pro-B-Type Natriuretic Peptide 3672 pg/mL (0-125) H Total Protein 6.8 G/DL (6.4-8.2) Albumin 2.3 G/DL (3.4-5.0) L Globulin 4.5 g/dL Albumin/Globulin Ratio 0.5 (1.0-2.7) L Height (Feet): 5 Height (Inches): 3.00 Weight (Pounds): 327 General Appearance: WD/WN, no apparent distress, alert, morbidly obese Cardiovascular: normal rate Respiratory/Chest: normal breath sounds, no respiratory distress, other - nasal canulla Abdominal Exam: normal bowel sounds, non tender, soft Extremities: non-tender Otilio Cohen NP May 25, 2018 14:07
--- NOTE | 2018-05-25 14:15 | NUR ---
NURSE NOTES: MD STEVENS AND MD NAVAS HERE TO SEE PT. RECOMMENDED DIET CHANGE, BASED ON SPEECH THERAPIST ORDERS. CCHO AND NECTAR.PT TOLERATING PO MEDS, NO C/O N/V. PT ON NC 4L 02SAT 96%.
--- NOTE | 2018-05-25 14:22 | General Progress Note ---
Assessment/Plan Assessment/Plan S, O: status post self-Extubation, PICC line in place, patient awake, following commands. limited exam PHYSICAL EXAMINATION: HEAD AND NECK: Atraumatic and normocephalic. CHEST: Diffuse bronchial breathing sounds. Overall decreased breathing sounds. ABDOMEN: Grossly morbidly obese. Limited evaluation. MUSCULOSKELETAL: Positive for ulcers and wounds, more diffusely edematous about 2+, superficial wounds on both legs , dressed . NEUROLOGIC: The patient is awake , follow commands . limited exam, Meds: Reviewed and reconciled. CXR dated 05/22/18 : reviewed ASSESSMENT: 1.Hypercapnic Vent Dependent Respiratory failure: S/P self-extubation 2. shock, ddx: septic vs cardiogenic : Resolved 3. CHF exacerbation, right sided, preserved EF 3. Acute/Chronic Renal F 4. Abnormal Trop: NSTEMI vs Leakage 3. UTI/lower extremity infection Hypertension. 4. Diabetes type 2, controlled with A1c of 6.3. 5. Pain management. 6. PAH 7. 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 HyperNatremia 6. GI and DVT prophylaxis. PLAN OF CARE: Guarded prognosis Off pressor, preserved BP Empirical abx, per ID Will Followup with pulmonary for post - Self- extubation care, Subjective Allergies: Coded Allergies: ASPIRIN (Verified Allergy, Intermediate, Hives, 01/06/13) PENICILLINS (Verified Allergy, Intermediate, Hives, 01/06/13) Objective Last 24 Hour Vital Signs Date Time Temp Pulse Resp B/P (MAP) Pulse Ox O2 Delivery O2 Flow Rate FiO2 05/25/18 14:00 92 17 131/120 (124) 100 05/25/18 13:00 98.9 90 16 133/111 (118) 100 05/25/18 12:00 92 27 134/97 (109) 94 05/25/18 12:00 92 05/25/18 12:00 Nasal Cannula 4.0 Venturi Mask 05/25/18 11:36 92 22 99 05/25/18 11:00 95 17 132/113 (119) 91 05/25/18 10:00 87 0 139/117 (124) 99 05/25/18 09:49 136/109 05/25/18 09:35 90 22 98 05/25/18 09:00 90 18 140/117 (125) 100 05/25/18 08:00 98.7 88 17 142/115 (124) 91 05/25/18 08:00 Venturi Mask 10.0 Venturi Mask 05/25/18 08:00 93 05/25/18 07:27 92 20 96 05/25/18 07:00 86 16 134/102 (113) 98 05/25/18 06:00 92 19 133/112 (119) 99 05/25/18 05:00 85 19 133/99 (110) 97 05/25/18 04:45 91 20 98 05/25/18 04:00 92 05/25/18 04:00 Venturi Mask 10.0 Venturi Mask 05/25/18 04:00 74 19 107/76 (86) 96 05/25/18 03:00 91 18 117/97 (104) 96 05/25/18 02:52 89 18 98 05/25/18 02:00 88 17 124/98 (107) 97 05/25/18 01:00 86 18 99 05/25/18 01:00 89 17 124/102 (109) 98 05/25/18 00:00 98.7 88 19 118/86 (97) 98 05/25/18 00:00 85 05/25/18 00:00 Venturi Mask 10.0 Venturi Mask 05/24/18 23:01 84 18 99 05/24/18 23:00 85 15 129/101 (110) 98 05/24/18 22:00 93 19 124/98 (107) 94 05/24/18 21:02 82 18 99 05/24/18 21:00 91 20 118/100 (106) 96 05/24/18 20:00 Venturi Mask 10.0 Venturi Mask 05/24/18 20:00 98.6 92 20 120/89 (99) 93 05/24/18 20:00 91 05/24/18 19:49 92 16 98 05/24/18 19:00 94 21 135/93 (107) 99 05/24/18 18:00 94 21 124/99 (107) 95 05/24/18 17:10 94 29 97 05/24/18 17:00 94 21 121/99 (106) 95 05/24/18 16:08 05/24/18 16:00 10.0 45 05/24/18 16:00 94 05/24/18 16:00 Venturi Mask 10.0 Venturi Mask 05/24/18 16:00 98.8 86 21 124/99 (107) 98 05/24/18 15:30 94 22 121/98 (106) 97 05/24/18 15:00 94 22 120/92 (101) 98 05/24/18 14:40 94 20 97 Intake and Output 05/24/18 05/25/18 19:00 07:00 Intake Total 833.334 ml 495.000 ml Output Total 480 ml 395 ml Balance 353.334 ml 100.000 ml Intake Oral 25 ml IV Total 773.334 ml 470.000 ml Other 60 ml Output Urine Total 400 ml 375 ml Stool Total 80 ml 20 ml # Bowel Movements 1 Laboratory Tests 05/24/18 16:55: Venous Blood pH [Pending], Venous Blood Partial Pressure CO2 [Pending], Venous Blood Partial Pressure O2 [Pending], Venous Blood HCO3 [Pending], Venous Blood Total Carbon Dioxide [Pending], Venous Bld O2 Saturation (Measured) 95.0, Venous Blood Oxygen Saturation [Pending], Venous Blood Base Excess [Pending], Methemoglobin 0.5, Sodium (Blood Gas) [Pending] 05/25/18 04:00: White Blood Count 10.0, Red Blood Count 4.79, Hemoglobin 12.1, Hematocrit 41.0, Mean Corpuscular Volume 86, Mean Corpuscular Hemoglobin 25.2L, Mean Corpuscular Hemoglobin Concent 29.4L, Red Cell Distribution Width 20.5H, Platelet Count 265 , Mean Platelet Volume 9.1, Neutrophils (%) (Auto) 79.4H, Lymphocytes (%) (Auto ) 12.6L, Monocytes (%) (Auto) 6.1, Eosinophils (%) (Auto) 0.7, Basophils (%) ( Auto) 1.2, Sodium Level 150H, Potassium Level 3.5, Chloride Level 116H, Carbon Dioxide Level 26, Anion Gap 8, Blood Urea Nitrogen 41H, Creatinine 1.4H, Estimat Glomerular Filtration Rate 45.8, Glucose Level 59L, Calcium Level 9.2, Total Bilirubin 1.5H, Direct Bilirubin 0.9H, Aspartate Amino Transf (AST/SGOT) 36, Alanine Aminotransferase (ALT/SGPT) 10L, Alkaline Phosphatase 241H, Pro-B- Type Natriuretic Peptide 3672H, Total Protein 6.8, Albumin 2.3L, Globulin 4.5, Albumin/Globulin Ratio 0.5L 05/25/18 14:00: Venous Blood pH [Pending], Venous Blood Partial Pressure CO2 [Pending], Venous Blood Partial Pressure O2 [Pending], Venous Blood HCO3 [Pending], Venous Blood Total Carbon Dioxide [Pending], Venous Bld O2 Saturation (Measured) 61.6, Venous Blood Oxygen Saturation [Pending], Venous Blood Base Excess [Pending], Methemoglobin 0.5, Sodium (Blood Gas) [Pending] Height (Feet): 5 Height (Inches): 3.00 Weight (Pounds): 327 Margaret Mckinney MD May 25, 2018 14:22
--- NOTE | 2018-05-25 16:22 | Infectious Diseases Prog Note ---
Assessment/Plan Problems: (1) Bacteremia due to Enterococcus Assessment & Plan: due to enterococcus faecalis , will need to remove PICC line as soon as we establish peripheral . will treat with vancomycin renally dosed as per pharmacy for two weeks starting from the removal date of PICC line (2) Leukocytosis (leucocytosis) Assessment & Plan: due to bacteremia , continue antibiotics (3) Bilateral lower leg cellulitis Assessment & Plan: wound culture grew klibsella oxytoca, and Sphingomonas paucimobilis , continue vancomycin and aztreonam empirically with local wounds care . patient has refused MRI and CT of the legs to rule out deep abscess or osteomyelitis. await on bone scan of both legs once clinically stable . 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 (4) Nonhealing ulcer of left lower extremity Assessment & Plan: wound culture grew klebsiella oxytoca and Sphingomonas paucimobilis, now on aztreonam and vancomycin , continue local wound care and dressings change as per wound care service as per plastic surgery recommendations (5) CKD (chronic kidney disease) Assessment & Plan: avoid nephrotoxics , renally dosed antibiotics as per pharmacy (6) DM (diabetes mellitus) Assessment & Plan: recommend tight glycemic control to keep blood glucose between 100-140 (7) Acute encephalopathy Assessment & Plan: suspect metabolic with high ammonia level, continue lactulose , consult neurology if no improvement (8) Acute hypoxemic respiratory failure Assessment & Plan: due to the above , self extubated , now on high flow oxygen , pulmonary is following, Subjective Constitutional: Reports: no symptoms HEENT: Reports: no symptoms Respiratory: Reports: no symptoms Breasts: Reports: no symptoms Cardiovascular: Reports: no symptoms Gastrointestinal/Abdominal: Reports: no symptoms Genitourinary: Reports: no symptoms Neurologic: Reports: no symptoms Psychiatric: Reports: no symptoms Skin: Reports: no symptoms Endocrine: Reports: no symptoms Hematologic: Reports: no symptoms Musculoskeletal: Reports: no symptoms Allergies: Coded Allergies: ASPIRIN (Verified Allergy, Intermediate, Hives, 01/06/13) PENICILLINS (Verified Allergy, Intermediate, Hives, 01/06/13) Subjective she was self extubated in ICU , awake and responsive, afebrile, has good UOP , not on pressor . retaining fluids Objective Vital Signs Last 24 Hour Vital Signs Date Time Temp Pulse Resp B/P (MAP) Pulse Ox O2 Delivery O2 Flow Rate FiO2 05/25/18 16:00 94 05/25/18 16:00 98.6 91 15 121/96 (104) 97 05/25/18 16:00 Nasal Cannula 4.0 Venturi Mask 05/25/18 15:30 87 15 130/99 (109) 97 05/25/18 15:00 92 14 143/128 (133) 99 05/25/18 14:00 92 17 131/120 (124) 100 05/25/18 13:40 90 22 97 05/25/18 13:00 98.9 90 16 133/111 (118) 100 05/25/18 12:00 92 27 134/97 (109) 94 05/25/18 12:00 92 05/25/18 12:00 Nasal Cannula 4.0 Venturi Mask 05/25/18 11:36 92 22 99 05/25/18 11:00 95 17 132/113 (119) 91 05/25/18 10:00 87 0 139/117 (124) 99 05/25/18 09:49 136/109 05/25/18 09:35 90 22 98 05/25/18 09:00 90 18 140/117 (125) 100 05/25/18 08:00 98.7 88 17 142/115 (124) 91 05/25/18 08:00 Venturi Mask 10.0 Venturi Mask 05/25/18 08:00 93 05/25/18 07:27 92 20 96 05/25/18 07:00 86 16 134/102 (113) 98 05/25/18 06:00 92 19 133/112 (119) 99 05/25/18 05:00 85 19 133/99 (110) 97 05/25/18 04:45 91 20 98 05/25/18 04:00 92 05/25/18 04:00 Venturi Mask 10.0 Venturi Mask 05/25/18 04:00 74 19 107/76 (86) 96 05/25/18 03:00 91 18 117/97 (104) 96 05/25/18 02:52 89 18 98 05/25/18 02:00 88 17 124/98 (107) 97 05/25/18 01:00 86 18 99 05/25/18 01:00 89 17 124/102 (109) 98 05/25/18 00:00 98.7 88 19 118/86 (97) 98 05/25/18 00:00 85 05/25/18 00:00 Venturi Mask 10.0 Venturi Mask 05/24/18 23:01 84 18 99 05/24/18 23:00 85 15 129/101 (110) 98 05/24/18 22:00 93 19 124/98 (107) 94 05/24/18 21:02 82 18 99 05/24/18 21:00 91 20 118/100 (106) 96 05/24/18 20:00 Venturi Mask 10.0 Venturi Mask 05/24/18 20:00 98.6 92 20 120/89 (99) 93 05/24/18 20:00 91 05/24/18 19:49 92 16 98 05/24/18 19:00 94 21 135/93 (107) 99 05/24/18 18:00 94 21 124/99 (107) 95 05/24/18 17:10 94 29 97 05/24/18 17:00 94 21 121/99 (106) 95 Height (Feet): 5 Height (Inches): 3.00 Weight (Pounds): 327 General Appearance: WD/WN, no acute distress HEENT: normocephalic, atraumatic, anicteric, mucous membranes moist Respiratory/Chest: chest wall non-tender, normal breath sounds, no respiratory distress, no accessory muscle use, decreased breath sounds, crackles/rales Cardiovascular: normal peripheral pulses, normal rate, regular rhythm, no gallop/murmur, no JVD Abdomen: normal bowel sounds, soft, non tender, no organomegaly, non distended , no scars Extremities: no cyanosis, no clubbing Skin: no rash, no lesions, ulcers Neurologic/Psychiatric: alert, responsive Lymphatic: no neck adenopathy, no groin adenopathy Musculoskeletal: normal muscle bulk, no effusion Laboratory Tests Test 05/24/18 16:55 05/25/18 04:00 05/25/18 14:00 Venous Blood pH Pending Pending Venous Blood Partial Pressure CO2 Pending Pending Venous Blood Partial Pressure O2 Pending Pending Venous Blood HCO3 Pending Pending Venous Blood Total Carbon Dioxide Pending Pending Venous Bld O2 Saturation (Measured) 95.0 61.6 Venous Blood Oxygen Saturation Pending Pending Venous Blood Base Excess Pending Pending Methemoglobin 0.5 0.5 Sodium (Blood Gas) Pending Pending White Blood Count 10.0 K/UL (4.8-10.8) Red Blood Count 4.79 M/UL (4.20-5.40) Hemoglobin 12.1 G/DL (12.0-16.0) Hematocrit 41.0 % (37.0-47.0) Mean Corpuscular Volume 86 FL (80-99) Mean Corpuscular Hemoglobin 25.2 PG (27.0-31.0) L Mean Corpuscular Hemoglobin Concent 29.4 G/DL (32.0-36.0) L Red Cell Distribution Width 20.5 % (11.6-14.8) H Platelet Count 265 K/UL (150-450) Mean Platelet Volume 9.1 FL (6.5-10.1) Neutrophils (%) (Auto) 79.4 % (45.0-75.0) H Lymphocytes (%) (Auto) 12.6 % (20.0-45.0) L Monocytes (%) (Auto) 6.1 % (1.0-10.0) Eosinophils (%) (Auto) 0.7 % (0.0-3.0) Basophils (%) (Auto) 1.2 % (0.0-2.0) Sodium Level 150 MMOL/L (136-145) H Potassium Level 3.5 MMOL/L (3.5-5.1) Chloride Level 116 MMOL/L (98-107) H Carbon Dioxide Level 26 MMOL/L (21-32) Anion Gap 8 mmol/L (5-15) Blood Urea Nitrogen 41 mg/dL (7-18) H Creatinine 1.4 MG/DL (0.55-1.30) H Estimat Glomerular Filtration Rate 45.8 mL/min (>60) Glucose Level 59 MG/DL (74-106) L Calcium Level 9.2 MG/DL (8.5-10.1) Total Bilirubin 1.5 MG/DL (0.2-1.0) H Direct Bilirubin 0.9 MG/DL (0.0-0.3) H Aspartate Amino Transf (AST/SGOT) 36 U/L (15-37) Alanine Aminotransferase (ALT/SGPT) 10 U/L (12-78) L Alkaline Phosphatase 241 U/L (46-116) H Pro-B-Type Natriuretic Peptide 3672 pg/mL (0-125) H Total Protein 6.8 G/DL (6.4-8.2) Albumin 2.3 G/DL (3.4-5.0) L Globulin 4.5 g/dL Albumin/Globulin Ratio 0.5 (1.0-2.7) L Current Medications Medications (Trade) Dose Ordered Sig/Toya Route PRN Reason Start Time Stop Time Status Last Admin Dose Admin Allopurinol (Allopurinol) 300 mg DAILY NG 05/19/18 13:00 06/18/18 12:59 05/25/18 09:48 Ascorbic Acid (Vitamin C) 500 mg TWICE A DAY NG 05/18/18 09:00 06/15/18 17:59 05/25/18 09:48 Atorvastatin Calcium (Lipitor) 20 mg BEDTIME ORAL 05/17/18 21:00 06/13/18 20:59 05/23/18 20:45 Aztreonam 2 gm/ Dextrose 110 ml @ 220 mls/hr Q8HR@0000,0800,1600 IVPB 05/17/18 16:00 05/29/18 15:59 05/25/18 09:52 Chlorhexidine Gluconate (Romy-Hex 2%) 1 applic DAILY@2000 TOPIC 05/14/18 20:00 06/13/18 19:59 05/24/18 21:15 Clopidogrel Bisulfate (Plavix) 75 mg DAILY NG 05/18/18 09:00 06/14/18 08:59 05/25/18 09:50 Dextrose (Dextrose 50%) 25 ml Q30M PRN IV Hypoglycemia 05/13/18 21:00 06/11/18 16:59 Dextrose (Dextrose 50%) 50 ml Q30M PRN IV Hypoglycemia 05/13/18 21:00 06/11/18 16:59 Dopamine HCl/ Dextrose 250 ml @ 0 mls/hr Q24H IV 05/15/18 19:00 06/14/18 18:59 05/16/18 18:05 Fentanyl Citrate 1000 mcg/Sodium Chloride 100 ml @ 0 mls/hr Q24H IV 05/21/18 13:00 05/28/18 12:59 05/22/18 18:09 Furosemide (Lasix) 20 mg DAILY IV 05/24/18 16:04 06/23/18 16:03 05/25/18 09:53 Insulin Aspart (NovoLOG) Q6HR SUBQ 05/18/18 13:00 06/11/18 12:59 05/20/18 05:04 Midodrine (Pro-Amatine) 5 mg THREE TIMES A DAY NG 05/20/18 18:00 06/17/18 12:59 05/25/18 09:51 Multivitamins (Multivitamins) 1 tab DAILY ORAL 05/18/18 09:00 06/16/18 08:59 05/25/18 09:50 Nitroglycerin (Ntg) 1 patch Q24H TDERMAL 05/15/18 09:00 06/14/18 08:59 05/25/18 09:49 Pantoprazole (Protonix) 40 mg DAILY IVP 05/26/18 09:00 06/13/18 20:59 Povidone Iodine (Betadine Gretchen) 1 applic BID TOPIC 05/16/18 09:00 06/15/18 08:59 05/25/18 09:49 Sodium Chloride 500 ml @ 999 mls/hr Q31M PRN IV For hypotension 05/14/18 01:30 06/13/18 01:29 05/21/18 19:22 Vancomycin HCl (Vanco rx to dose) 1 ea DAILY PRN MISC Per rx protocol 05/23/18 17:30 06/22/18 17:29 Vancomycin/Sodium Chloride 250 ml @ 166.667 mls/hr Q12H IVPB 05/24/18 10:00 05/29/18 09:59 05/25/18 09:53 Juice Wilkerson M.D. May 25, 2018 16:22
--- NOTE | 2018-05-25 16:29 | NUR ---
NURSE NOTES: was informed MD Ritchie requested that pt be placed on bipap 12/10. R.T informed, order to repeat VBG tomorrow
--- NOTE | 2018-05-25 17:11 | Nephrology Progress Note ---
Assessment/Plan Problem List: (1) ARF (acute renal failure) (2) Cellulitis of both lower extremities (3) Venous stasis ulcers of both lower extremities (4) DM (diabetes mellitus) (5) CKD (chronic kidney disease) (6) Morbid (severe) obesity due to excess calories (7) Acute hypoxemic respiratory failure Assessment extubated on bipap- Diabetic Nephropathy Cr 1.4 acute renal failure super imposed on CKD Encephalopathy, CO2 retainer, respiratory failure acute Obesity High Trop High Bili UTI Bilateral LE cellulitis Anemia Plan pulmonary support, bipap post extubation H2O NGT weaning 24 h urine crcl 29 cc 24 h protein 0.6 gr midodrine increase dose DC IV fluids Anaya pressors as needed OG feeding Avoid nephrotoxics monitor renal parameters 2D echo Ej Fx 55% kidney WESLEY no pathology reported Per ID , Pulm... meds IV or OG tube Avoid mind altering meds per orders Subjective ROS Limited/Unobtainable: No Constitutional: Reports: malaise, weakness, other - extubated on bipap Objective Objective Last 24 Hour Vital Signs Date Time Temp Pulse Resp B/P (MAP) Pulse Ox O2 Delivery O2 Flow Rate FiO2 05/25/18 16:46 80 22 99 Facial 40 05/25/18 16:00 94 05/25/18 16:00 98.6 91 15 121/96 (104) 97 05/25/18 16:00 Nasal Cannula 4.0 Venturi Mask 05/25/18 15:30 92 22 96 05/25/18 15:30 87 15 130/99 (109) 97 05/25/18 15:00 92 14 143/128 (133) 99 05/25/18 14:00 92 17 131/120 (124) 100 05/25/18 13:40 90 22 97 05/25/18 13:00 98.9 90 16 133/111 (118) 100 05/25/18 12:00 92 27 134/97 (109) 94 05/25/18 12:00 92 05/25/18 12:00 Nasal Cannula 4.0 Venturi Mask 05/25/18 11:36 92 22 99 05/25/18 11:00 95 17 132/113 (119) 91 05/25/18 10:00 87 0 139/117 (124) 99 05/25/18 09:49 136/109 05/25/18 09:35 90 22 98 05/25/18 09:00 90 18 140/117 (125) 100 05/25/18 08:00 98.7 88 17 142/115 (124) 91 05/25/18 08:00 Venturi Mask 10.0 Venturi Mask 05/25/18 08:00 93 05/25/18 07:27 92 20 96 05/25/18 07:00 86 16 134/102 (113) 98 05/25/18 06:00 92 19 133/112 (119) 99 05/25/18 05:00 85 19 133/99 (110) 97 05/25/18 04:45 91 20 98 05/25/18 04:00 92 05/25/18 04:00 Venturi Mask 10.0 Venturi Mask 05/25/18 04:00 74 19 107/76 (86) 96 05/25/18 03:00 91 18 117/97 (104) 96 05/25/18 02:52 89 18 98 05/25/18 02:00 88 17 124/98 (107) 97 05/25/18 01:00 86 18 99 05/25/18 01:00 89 17 124/102 (109) 98 05/25/18 00:00 98.7 88 19 118/86 (97) 98 05/25/18 00:00 85 05/25/18 00:00 Venturi Mask 10.0 Venturi Mask 05/24/18 23:01 84 18 99 05/24/18 23:00 85 15 129/101 (110) 98 05/24/18 22:00 93 19 124/98 (107) 94 05/24/18 21:02 82 18 99 05/24/18 21:00 91 20 118/100 (106) 96 05/24/18 20:00 Venturi Mask 10.0 Venturi Mask 05/24/18 20:00 98.6 92 20 120/89 (99) 93 05/24/18 20:00 91 05/24/18 19:49 92 16 98 05/24/18 19:00 94 21 135/93 (107) 99 05/24/18 18:00 94 21 124/99 (107) 95 Intake and Output 05/24/18 05/25/18 19:00 07:00 Intake Total 833.334 ml 495.000 ml Output Total 480 ml 395 ml Balance 353.334 ml 100.000 ml Intake Oral 25 ml IV Total 773.334 ml 470.000 ml Other 60 ml Output Urine Total 400 ml 375 ml Stool Total 80 ml 20 ml # Bowel Movements 1 Current Medications Medications (Trade) Dose Ordered Sig/Toya Route PRN Reason Start Time Stop Time Status Last Admin Dose Admin Allopurinol (Allopurinol) 300 mg DAILY NG 05/19/18 13:00 06/18/18 12:59 05/25/18 09:48 Ascorbic Acid (Vitamin C) 500 mg TWICE A DAY NG 05/18/18 09:00 06/15/18 17:59 05/25/18 09:48 Atorvastatin Calcium (Lipitor) 20 mg BEDTIME ORAL 05/17/18 21:00 06/13/18 20:59 05/23/18 20:45 Aztreonam 2 gm/ Dextrose 110 ml @ 220 mls/hr Q8HR@0000,0800,1600 IVPB 05/17/18 16:00 05/29/18 15:59 05/25/18 09:52 Chlorhexidine Gluconate (Romy-Hex 2%) 1 applic DAILY@2000 TOPIC 05/14/18 20:00 06/13/18 19:59 05/24/18 21:15 Clopidogrel Bisulfate (Plavix) 75 mg DAILY NG 05/18/18 09:00 06/14/18 08:59 05/25/18 09:50 Dextrose (Dextrose 50%) 25 ml Q30M PRN IV Hypoglycemia 05/13/18 21:00 06/11/18 16:59 Dextrose (Dextrose 50%) 50 ml Q30M PRN IV Hypoglycemia 05/13/18 21:00 06/11/18 16:59 Dopamine HCl/ Dextrose 250 ml @ 0 mls/hr Q24H IV 05/15/18 19:00 06/14/18 18:59 05/16/18 18:05 Fentanyl Citrate 1000 mcg/Sodium Chloride 100 ml @ 0 mls/hr Q24H IV 05/21/18 13:00 05/28/18 12:59 05/22/18 18:09 Furosemide (Lasix) 20 mg DAILY IV 05/24/18 16:04 06/23/18 16:03 05/25/18 09:53 Insulin Aspart (NovoLOG) Q6HR SUBQ 05/18/18 13:00 06/11/18 12:59 05/20/18 05:04 Midodrine (Pro-Amatine) 5 mg THREE TIMES A DAY NG 05/20/18 18:00 06/17/18 12:59 05/25/18 09:51 Multivitamins (Multivitamins) 1 tab DAILY ORAL 05/18/18 09:00 06/16/18 08:59 05/25/18 09:50 Nitroglycerin (Ntg) 1 patch Q24H TDERMAL 05/15/18 09:00 06/14/18 08:59 05/25/18 09:49 Pantoprazole (Protonix) 40 mg DAILY IVP 05/26/18 09:00 06/13/18 20:59 Povidone Iodine (Betadine Gretchen) 1 applic BID TOPIC 05/16/18 09:00 06/15/18 08:59 05/25/18 09:49 Sodium Chloride 500 ml @ 999 mls/hr Q31M PRN IV For hypotension 05/14/18 01:30 06/13/18 01:29 05/21/18 19:22 Vancomycin HCl (Vanco rx to dose) 1 ea DAILY PRN MISC Per rx protocol 05/23/18 17:30 06/22/18 17:29 Vancomycin/Sodium Chloride 250 ml @ 166.667 mls/hr Q12H IVPB 05/24/18 10:00 05/29/18 09:59 05/25/18 09:53 Laboratory Tests 05/25/18 04:00: White Blood Count 10.0, Red Blood Count 4.79, Hemoglobin 12.1, Hematocrit 41.0, Mean Corpuscular Volume 86, Mean Corpuscular Hemoglobin 25.2L, Mean Corpuscular Hemoglobin Concent 29.4L, Red Cell Distribution Width 20.5H, Platelet Count 265 , Mean Platelet Volume 9.1, Neutrophils (%) (Auto) 79.4H, Lymphocytes (%) (Auto ) 12.6L, Monocytes (%) (Auto) 6.1, Eosinophils (%) (Auto) 0.7, Basophils (%) ( Auto) 1.2, Sodium Level 150H, Potassium Level 3.5, Chloride Level 116H, Carbon Dioxide Level 26, Anion Gap 8, Blood Urea Nitrogen 41H, Creatinine 1.4H, Estimat Glomerular Filtration Rate 45.8, Glucose Level 59L, Calcium Level 9.2, Total Bilirubin 1.5H, Direct Bilirubin 0.9H, Aspartate Amino Transf (AST/SGOT) 36, Alanine Aminotransferase (ALT/SGPT) 10L, Alkaline Phosphatase 241H, Pro-B- Type Natriuretic Peptide 3672H, Total Protein 6.8, Albumin 2.3L, Globulin 4.5, Albumin/Globulin Ratio 0.5L 05/25/18 14:00: Venous Blood pH [Pending], Venous Blood Partial Pressure CO2 [Pending], Venous Blood Partial Pressure O2 [Pending], Venous Blood HCO3 [Pending], Venous Blood Total Carbon Dioxide [Pending], Venous Bld O2 Saturation (Measured) 61.6, Venous Blood Oxygen Saturation [Pending], Venous Blood Base Excess [Pending], Methemoglobin 0.5, Sodium (Blood Gas) [Pending] Height (Feet): 5 Height (Inches): 3.00 Weight (Pounds): 327 General Appearance: no apparent distress EENT: other - bipap Cardiovascular: tachycardia Respiratory/Chest: decreased breath sounds Abdomen: other - obese Objective no change Tr Strange MD May 25, 2018 17:11
[2018-05-25] MEDS: DOPamine 400mg/250ml 250 ML IV SCH (17:46)
--- NOTE | 2018-05-25 18:21 | NUR ---
NURSE NOTES: pt refusing to put back on bipap. NC placed. will attempt again at later date.
--- NOTE | 2018-05-25 19:40 | NUR ---
NURSE NOTES: Recvd.on a BIPAP See settings,P.Ox-97-99%.Lungs few Rh.diminished BS at bases.HOB>30'.Enc.Deep breathing coughing ex.See V/S.Scope SR.Denies CP.Pos. chg.Made comfortable.
--- NOTE | 2018-05-25 19:41 | NUR ---
HAND-OFF: Report given to piyush. called r.t to reapply bipap
[2018-05-25] MEDS: Dyna-Hex 2% Top Sol 2oz TOPIC SCH (21:01)
[2018-05-25] MEDS: Atorvastatin 20mg tab ORAL SCH (21:16)
--- NOTE | 2018-05-25 22:30 | NUR ---
NURSE NOTES: HS care provided.pos.chg.kept clean and dry.Due meds admin.cont.ca monitoring.
[2018-05-25] MEDS: Vancomycin 1gm in D5W 275ml IVPB SCH (22:35)
[2018-05-26] VITALS (24 sets, daily range): BP systolic 57–181; BP diastolic 47–115
--- NOTE | 2018-05-26 | Cardiology Progress Note ---
Assessment/Plan Assessment/Plan LATE ENTRY NOTE DATE OF SERVICE: 05/25/2018 Patient seen: 8:55 am 1. Acute hypoxic hypercarbic respiratory failure, extubated, now on facial mask oxygen. 2D echocardiography shows normal LV systolic function with a normal left atrial pressure, however e/o right heart failure. 2. Right heart failure, pre-load sensitive, avoid aggressive diuretic use, evidence of RA and RV dilatation and severe RV systolic dysfunction, associated pulmonary HTN, ? type. 3. Paroxysmal atrial fibrillation, currently sinus rhythm. 4. Hypotension likely due to RV failure, resolved, on midodrine, grim prognosis. 5. Slight elevation of troponin I level in this patient most likely due to RV strain/failure. Subjective Subjective Sinus rhythm at rate of 86. On facial mask oxygen. Objective Last 24 Hour Vital Signs Date Time Temp Pulse Resp B/P (MAP) Pulse Ox O2 Delivery O2 Flow Rate FiO2 05/25/18 23:28 86 18 97 05/25/18 23:00 90 17 110/88 (95) 97 05/25/18 22:00 84 19 137/103 (114) 99 05/25/18 21:00 89 18 136/92 (107) 99 05/25/18 20:48 90 18 99 Facial 40 05/25/18 20:00 98.4 80 17 138/93 (108) 100 05/25/18 20:00 Nasal Cannula 4.0 Venturi Mask 05/25/18 20:00 80 05/25/18 19:25 92 22 99 Facial 40 05/25/18 19:00 93 19 134/90 (105) 99 05/25/18 18:00 92 17 131/101 (111) 98 05/25/18 17:00 88 15 137/109 (118) 97 05/25/18 16:46 80 22 99 Facial 40 05/25/18 16:00 94 05/25/18 16:00 98.6 91 15 121/96 (104) 97 05/25/18 16:00 Nasal Cannula 4.0 Venturi Mask 05/25/18 15:30 92 22 96 05/25/18 15:30 87 15 130/99 (109) 97 05/25/18 15:00 92 14 143/128 (133) 99 05/25/18 14:00 92 17 131/120 (124) 100 05/25/18 13:40 90 22 97 05/25/18 13:00 98.9 90 16 133/111 (118) 100 05/25/18 12:00 92 27 134/97 (109) 94 05/25/18 12:00 92 05/25/18 12:00 Nasal Cannula 4.0 Venturi Mask 05/25/18 11:36 92 22 99 05/25/18 11:00 95 17 132/113 (119) 91 05/25/18 10:00 87 0 139/117 (124) 99 05/25/18 09:49 136/109 05/25/18 09:35 90 22 98 05/25/18 09:00 90 18 140/117 (125) 100 05/25/18 08:00 98.7 88 17 142/115 (124) 91 05/25/18 08:00 Venturi Mask 10.0 Venturi Mask 05/25/18 08:00 93 05/25/18 07:27 92 20 96 05/25/18 07:00 86 16 134/102 (113) 98 05/25/18 06:00 92 19 133/112 (119) 99 05/25/18 05:00 85 19 133/99 (110) 97 05/25/18 04:45 91 20 98 05/25/18 04:00 92 05/25/18 04:00 Venturi Mask 10.0 Venturi Mask 05/25/18 04:00 74 19 107/76 (86) 96 05/25/18 03:00 91 18 117/97 (104) 96 05/25/18 02:52 89 18 98 05/25/18 02:00 88 17 124/98 (107) 97 05/25/18 01:00 86 18 99 05/25/18 01:00 89 17 124/102 (109) 98 Intake and Output 05/25/18 05/26/18 18:59 06:59 Intake Total 758.327 ml 130 ml Output Total 510 ml 260 ml Balance 248.327 ml -130 ml Intake Oral 205 ml 130 ml IV Total 553.327 ml Output Urine Total 410 ml 260 ml Stool Total 100 ml # Bowel Movements 1 2D Echo: LVEF 55%, D-shaped septum due to RV pressure overload, Massive RA/RV size. Laboratory Tests Test 05/25/18 04:00 05/25/18 14:00 05/25/18 21:12 White Blood Count 10.0 K/UL (4.8-10.8) Red Blood Count 4.79 M/UL (4.20-5.40) Hemoglobin 12.1 G/DL (12.0-16.0) Hematocrit 41.0 % (37.0-47.0) Mean Corpuscular Volume 86 FL (80-99) Mean Corpuscular Hemoglobin 25.2 PG (27.0-31.0) L Mean Corpuscular Hemoglobin Concent 29.4 G/DL (32.0-36.0) L Red Cell Distribution Width 20.5 % (11.6-14.8) H Platelet Count 265 K/UL (150-450) Mean Platelet Volume 9.1 FL (6.5-10.1) Neutrophils (%) (Auto) 79.4 % (45.0-75.0) H Lymphocytes (%) (Auto) 12.6 % (20.0-45.0) L Monocytes (%) (Auto) 6.1 % (1.0-10.0) Eosinophils (%) (Auto) 0.7 % (0.0-3.0) Basophils (%) (Auto) 1.2 % (0.0-2.0) Sodium Level 150 MMOL/L (136-145) H Potassium Level 3.5 MMOL/L (3.5-5.1) Chloride Level 116 MMOL/L (98-107) H Carbon Dioxide Level 26 MMOL/L (21-32) Anion Gap 8 mmol/L (5-15) Blood Urea Nitrogen 41 mg/dL (7-18) H Creatinine 1.4 MG/DL (0.55-1.30) H Estimat Glomerular Filtration Rate 45.8 mL/min (>60) Glucose Level 59 MG/DL (74-106) L Calcium Level 9.2 MG/DL (8.5-10.1) Total Bilirubin 1.5 MG/DL (0.2-1.0) H Direct Bilirubin 0.9 MG/DL (0.0-0.3) H Aspartate Amino Transf (AST/SGOT) 36 U/L (15-37) Alanine Aminotransferase (ALT/SGPT) 10 U/L (12-78) L Alkaline Phosphatase 241 U/L (46-116) H C-Reactive Protein, Quantitative 2.3 mg/dL (0.00-0.90) H Pro-B-Type Natriuretic Peptide 3672 pg/mL (0-125) H Total Protein 6.8 G/DL (6.4-8.2) Albumin 2.3 G/DL (3.4-5.0) L Globulin 4.5 g/dL Albumin/Globulin Ratio 0.5 (1.0-2.7) L Venous Blood pH Pending Venous Blood Partial Pressure CO2 Pending Venous Blood Partial Pressure O2 Pending Venous Blood HCO3 Pending Venous Blood Total Carbon Dioxide Pending Venous Bld O2 Saturation (Measured) 61.6 Venous Blood Oxygen Saturation Pending Venous Blood Base Excess Pending Methemoglobin 0.5 Sodium (Blood Gas) Pending Vancomycin Level Trough 14.9 ug/mL (5.0-12.0) H Objective HEENT: Atraumatic and normocephalic. Anicteric. Pupils are equal, round, and reactive to light and accommodation. Extraocular muscles intact. NECK: JVP ~20 cm, No carotid bruit. Carotid upstroke is 2+ bilaterally. CVS: Normal S1 and S2. Regular rate and rhythm. RV heave, No murmurs, gallops , or rubs. LUNGS: Diminished breath sounds in both lungs with rhonchi bilaterally. ABDOMEN: Soft, nontender, and nondistended. No hepatosplenomegaly. Positive bowel sounds. EXTREMITIES: No evidence of edema, clubbing, or cyanosis. There is venous stasis of lower extremities with associated ulceration. Justice Erickson MD May 26, 2018 00:00
--- NOTE | 2018-05-26 00:10 | NUR ---
NURSE NOTES: Pos. chg.Kept comfortable.Cont. to enc.deep breathing coughing ex.P.Ox-98%.See V/S.Scope pattern same.Denies CP.FSBS-83 no cov.Cont.Ca.Monitoring.
[2018-05-26] MEDS: AZTREONAM IVPB SCH ×8 (00:21→23:27)
[2018-05-26] MEDS: [UNRECOGNIZED DRUG - OTHER] IVPB SCH ×8 (00:21→23:27)
--- NOTE | 2018-05-26 02:00 | NUR ---
NURSE NOTES: Repositioned,Kept comfortable.Cont.to re-oriented,re-assurred.No distress.
--- NOTE | 2018-05-26 04:20 | NUR ---
NURSE NOTES: Rectal tube out,Inct.of large loose mushy stool.Sandra Garcia chg.wound Leg drsg.chg.Tx.done.Blood drawn for cbc/cmp etc.spec.to lab.See V/S.Scope rhythm same.No CP.Cont.Ca.Monitoring.
[2018-05-26] MEDS: NovoLOG Insulin Flexpen SUBQ SCH ×5 (05:47→23:27)
[2018-05-26 05:48] LABS: EOSINOPHILS % (AUTO) 0.6 % (0.0-3.0); HEMATOCRIT 41.8 % (37.0-47.0); HEMOGLOBIN 12.1 G/DL (12.0-16.0); LYMPHOCYTES % (AUTO) 14.1 % (20.0-45.0); MEAN CORPUSCULAR VOLUME 86 FL (80-99); MONOCYTES % (AUTO) 5.6 % (1.0-10.0); NEUTROPHILS % (AUTO) 78.8 % (45.0-75.0); PLATELET COUNT 292 K/UL (150-450); RED BLOOD COUNT 4.88 M/UL (4.20-5.40); RED CELL DISTRIBUTION WIDTH 20.2 % (11.6-14.8); WHITE BLOOD COUNT 10.2 K/UL (4.8-10.8)
[2018-05-26 06:47] LABS: ALANINE AMINOTRANSFERASE 12 U/L (12-78); ALBUMIN 2.4 G/DL (3.4-5.0); ALBUMIN/GLOBULIN RATIO 0.5 (1.0-2.7); ALKALINE PHOSPHATASE 229 U/L (46-116); ANION GAP 9 mmol/L (5-15); ASPARTATE AMINO TRANSFERASE 32 U/L (15-37); BILIRUBIN,TOTAL 1.4 MG/DL (0.2-1.0); BLOOD UREA NITROGEN 36 mg/dL (7-18); CALCIUM 9.3 MG/DL (8.5-10.1); CARBON DIOXIDE 27 MMOL/L (21-32); CHLORIDE 114 MMOL/L (98-107); CREATININE 1.3 MG/DL (0.55-1.30); POTASSIUM 3.6 MMOL/L (3.5-5.1); SODIUM 150 MMOL/L (136-145)
--- NOTE | 2018-05-26 07:00 | NUR ---
RESPIRATORY NOTE: pt recieved on 4L NC, pt is refusing BIPAP, sat is 97%. no redness or skin tear noted, will continue to monitor the pt.
[2018-05-26 07:09] LABS: BILIRUBIN,DIRECT 0.9 MG/DL (0.0-0.3)
[2018-05-26 07:27] LABS: PHOSPHORUS 3.5 MG/DL (2.5-4.9)
--- NOTE | 2018-05-26 07:27 | NUR ---
HAND-OFF: Report given to LUCIO COOLEY.
--- NOTE | 2018-05-26 08:42 | NUR ---
RESPIRATORY NOTE: VBG given to me by LUCIO COOLYE, VBG results PH 7.22, PCO2 66.5, PO2 39.5, HCO3 26.9, BE -2.1,tHb 13.0, SO2 68.8, fO2Hb 68.0, fMetHb 0.5, fCOHb 0.7, fHHb 30.8
[2018-05-26] MEDS: Ascorbic Acid 500mg tab NG SCH ×2 (09:45→18:38)
[2018-05-26] MEDS: Pantoprazole Inj IVP SCH (09:46)
[2018-05-26] MEDS: Betadine 4oz Bottle TOPIC SCH ×2 (09:48→18:38)
[2018-05-26] MEDS: Nitroglycerin Patch 0.4mg TDERMAL SCH (09:48)
--- NOTE | 2018-05-26 10:30 | NUR ---
NURSE NOTES: Patient is able to take morning medication with no swallowing impairment noted, she remains confused but follows commands, she is on 4L/min nasal cannula with no distress noted, will continue plan of care.
[2018-05-26] MEDS: Vancomycin 1gm in D5W 275ml IVPB SCH ×2 (10:52→21:00)
--- NOTE | 2018-05-26 11:22 | NUR ---
RD ASSESSMENT & RECOMMENDATIONS SEE CARE ACTIVITY FOR COMPLETE ASSESSMENT DAILY ESTIMATED NEEDS: Needs based on Pulmonary, wounds, DM, morbid obesity (71.5kg abw) 20-25 kcals/kg 9181-2158 total kcals 1.25-1.5 g protein/kg 89-107 g total protein Fluid per MD, on lasix. NUTRITION DIAGNOSIS: 1) Increased protein needs r/t wound healing as evidenced by pt w/ chronic LLE ulcers. 2) Morbid obesity R/T excessive energy intake as evidenced by BMI>50 per guidelines. 3) Swallowing difficulty r/t respiratory status as evidenced by s/p extubation, recs for puree and NTL by HOISTING ENGINEER. (UPDATED) CURRENT DIET: Cardiac ms chopped w/ NTL PO DIET RECOMMENDATIONS: HOISTING ENGINEER eval s/p extubation-> CARDIAC/ texture per HOISTING ENGINEER ADDITIONAL RECOMMENDATIONS: 1) RE-calibrate bed scale (wts per EMR: 200#, 316#, 341#) 2) Wound care: add NELY BID + MVI x1 + Vit C 250mg daily 3) Monitor lytes, replete as needed 4) HOISTING ENGINEER eval post extubation for appropriate texture- recs for puree, NTL 5) Monitor PO intake w/ BG, need for carb control diet . .
--- NOTE | 2018-05-26 12:05 | NUR ---
NURSE NOTES: Radiology called to inform patient is unable to be placed for procedure,
[2018-05-26] MEDS: fentaNYL Citrate 1000 MCG in NS 100ml IV SCH (12:22)
--- NOTE | 2018-05-26 14:07 | Pulmonolgy Critical Care Note ---
Critical Care - Asmt/Plan Assessment/Plan: 67 y/o female w/ DM, CKD, morbid obesity admitted with b/l LE cellulitis and altered mental status. Problem List: 1. Altered mental status 2. Acute hypercapnic respiratory failure -intubated 05/15 -self-extubated 05/24 3. Bilateral lower extremity cellulitis 4. RACHELLE on CKD 5. DM 6. Morbid obesity 7. Elevated ammonia level 8. RV failure 9. Acute diastolic Congestive heart failure 10. 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 Respiratory: ABG Renal: F/U I&O Infectious Disease: continue antibiotics Time Spent (Minutes): 40 Discussed with: nurses Critical Care - Objective Last 24 Hour Vital Signs Date Time Temp Pulse Resp B/P (MAP) Pulse Ox O2 Delivery O2 Flow Rate FiO2 05/26/18 13:29 91 22 96 05/26/18 13:00 90 16 162/110 (127) 94 05/26/18 12:00 98.3 90 18 158/99 (118) 97 05/26/18 12:00 Nasal Cannula 4.0 05/26/18 12:00 94 05/26/18 11:40 93 20 99 05/26/18 11:00 94 16 149/99 (116) 96 05/26/18 10:00 93 18 140/88 (105) 97 05/26/18 09:48 140/88 05/26/18 09:23 90 20 97 05/26/18 09:00 92 16 135/89 (104) 96 05/26/18 08:00 Nasal Cannula 4.0 05/26/18 08:00 96 05/26/18 08:00 98.7 91 17 156/96 (116) 99 05/26/18 07:00 83 17 135/91 (106) 98 05/26/18 07:00 93 20 97 05/26/18 06:00 88 17 142/106 (118) 98 05/26/18 05:30 89 20 97 05/26/18 05:00 90 17 110/88 (95) 97 05/26/18 04:00 98.6 89 19 148/101 (117) 66 05/26/18 04:00 91 05/26/18 04:00 Nasal Cannula 4.0 Venturi Mask 05/26/18 03:05 93 20 98 05/26/18 03:00 90 18 181/80 (113) 97 05/26/18 02:00 90 18 57/47 (50) 99 05/26/18 01:00 89 20 98 05/26/18 01:00 93 17 127/94 (105) 98 05/26/18 00:00 91 05/26/18 00:00 98.9 91 20 132/89 (103) 98 05/26/18 00:00 Nasal Cannula 4.0 Venturi Mask 05/25/18 23:28 86 18 97 05/25/18 23:00 90 17 110/88 (95) 97 05/25/18 22:00 84 19 137/103 (114) 99 05/25/18 21:00 89 18 136/92 (107) 99 05/25/18 20:48 90 18 99 Facial 40 05/25/18 20:00 98.4 80 17 138/93 (108) 100 05/25/18 20:00 Nasal Cannula 4.0 Venturi Mask 05/25/18 20:00 80 05/25/18 19:25 92 22 99 Facial 40 05/25/18 19:00 93 19 134/90 (105) 99 05/25/18 18:00 92 17 131/101 (111) 98 05/25/18 17:00 88 15 137/109 (118) 97 05/25/18 16:46 80 22 99 Facial 40 05/25/18 16:00 94 05/25/18 16:00 98.6 91 15 121/96 (104) 97 05/25/18 16:00 Nasal Cannula 4.0 Venturi Mask 05/25/18 15:30 92 22 96 05/25/18 15:30 87 15 130/99 (109) 97 05/25/18 15:00 92 14 143/128 (133) 99 Status: somnolent Condition: critical HEENT: atraumatic Lungs: rales Heart: edema Abdomen: soft Extremities: edema Accucheck: 121 Critical Care - Subjective ROS Limited/Unobtainable: Yes Interval Events: VBG still acidotic. Remains altered. Slight diuresis with lasix once a day. EKG Rhythm: Sinus Rhythm FI02: 40 Sputum Amount: None I&O: Intake and Output 05/25/18 05/26/18 18:59 06:59 Intake Total 758.327 ml 715 ml Output Total 510 ml 610 ml Balance 248.327 ml 105 ml Intake Oral 205 ml 330 ml IV Total 553.327 ml 385 ml Output Urine Total 410 ml 610 ml Stool Total 100 ml # Bowel Movements 1 1 CXR: Pulmonary edema, massive cardiomegaly Hemal Ritchie MD May 26, 2018 14:06
--- NOTE | 2018-05-26 14:10 | NUR ---
NURSE NOTES: Dr. alvarez informed of patient condition while on 2L/min Nasal Cannula and results of VBG, he ordered to have and abg taken, change midodrine to 2.5mg and a lactic acid, will carry out orders.
--- NOTE | 2018-05-26 14:25 | NUR ---
NURSE NOTES: Dr. Wilkerson made aware why patient PICC line remains in place, encouraged to have a peripheral line placed and send tip to laboratory for analysis, no further verbal orders given, will carry out orders.
--- NOTE | 2018-05-26 14:41 | Infectious Diseases Prog Note ---
Assessment/Plan Problems: (1) Bacteremia due to Enterococcus Assessment & Plan: due to enterococcus faecalis , recommend to remove PICC line as soon as we establish peripheral . will treat with vancomycin renally dosed as per pharmacy for two weeks starting from the removal date of PICC line (2) Leukocytosis (leucocytosis) Assessment & Plan: improved , due to bacteremia , continue antibiotics (3) Bilateral lower leg cellulitis Assessment & Plan: wound culture grew klibsella oxytoca, and Sphingomonas paucimobilis , continue vancomycin and aztreonam empirically with local wounds care . patient has refused MRI and CT of the legs to rule out deep abscess or osteomyelitis. await on bone scan of both legs once clinically stable . 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 (4) Nonhealing ulcer of left lower extremity Assessment & Plan: wound culture grew klebsiella oxytoca and Sphingomonas paucimobilis, now on aztreonam and vancomycin , continue local wound care and dressings change as per wound care service as per plastic surgery recommendations (5) CKD (chronic kidney disease) Assessment & Plan: avoid nephrotoxics , renally dosed antibiotics as per pharmacy (6) DM (diabetes mellitus) Assessment & Plan: recommend tight glycemic control to keep blood glucose between 100-140 (7) Acute encephalopathy Assessment & Plan: suspect metabolic with high ammonia level, continue lactulose , consult neurology if no improvement (8) Acute hypoxemic respiratory failure Assessment & Plan: due to the above , self extubated , now on high flow oxygen , pulmonary is following, Subjective Constitutional: Reports: no symptoms HEENT: Reports: no symptoms Respiratory: Reports: no symptoms Breasts: Reports: no symptoms Cardiovascular: Reports: no symptoms Gastrointestinal/Abdominal: Reports: no symptoms Genitourinary: Reports: no symptoms Neurologic: Reports: no symptoms Psychiatric: Reports: no symptoms Skin: Reports: no symptoms Endocrine: Reports: no symptoms Hematologic: Reports: no symptoms Musculoskeletal: Reports: no symptoms Allergies: Coded Allergies: ASPIRIN (Verified Allergy, Intermediate, Hives, 01/06/13) PENICILLINS (Verified Allergy, Intermediate, Hives, 01/06/13) Subjective she was up in bed, awake and alert, requesting cold drink , afebrile, has good UOP , still retaining fluids Objective Vital Signs Last 24 Hour Vital Signs Date Time Temp Pulse Resp B/P (MAP) Pulse Ox O2 Delivery O2 Flow Rate FiO2 05/26/18 13:29 91 22 96 05/26/18 13:00 90 16 162/110 (127) 94 05/26/18 12:00 98.3 90 18 158/99 (118) 97 05/26/18 12:00 Nasal Cannula 4.0 05/26/18 12:00 94 05/26/18 11:40 93 20 99 05/26/18 11:00 94 16 149/99 (116) 96 05/26/18 10:00 93 18 140/88 (105) 97 05/26/18 09:48 140/88 05/26/18 09:23 90 20 97 05/26/18 09:00 92 16 135/89 (104) 96 05/26/18 08:00 Nasal Cannula 4.0 05/26/18 08:00 96 05/26/18 08:00 98.7 91 17 156/96 (116) 99 05/26/18 07:00 83 17 135/91 (106) 98 05/26/18 07:00 93 20 97 05/26/18 06:00 88 17 142/106 (118) 98 05/26/18 05:30 89 20 97 05/26/18 05:00 90 17 110/88 (95) 97 05/26/18 04:00 98.6 89 19 148/101 (117) 66 05/26/18 04:00 91 05/26/18 04:00 Nasal Cannula 4.0 Venturi Mask 05/26/18 03:05 93 20 98 05/26/18 03:00 90 18 181/80 (113) 97 05/26/18 02:00 90 18 57/47 (50) 99 05/26/18 01:00 89 20 98 05/26/18 01:00 93 17 127/94 (105) 98 05/26/18 00:00 91 05/26/18 00:00 98.9 91 20 132/89 (103) 98 05/26/18 00:00 Nasal Cannula 4.0 Venturi Mask 05/25/18 23:28 86 18 97 05/25/18 23:00 90 17 110/88 (95) 97 05/25/18 22:00 84 19 137/103 (114) 99 05/25/18 21:00 89 18 136/92 (107) 99 05/25/18 20:48 90 18 99 Facial 40 05/25/18 20:00 98.4 80 17 138/93 (108) 100 05/25/18 20:00 Nasal Cannula 4.0 Venturi Mask 05/25/18 20:00 80 05/25/18 19:25 92 22 99 Facial 40 05/25/18 19:00 93 19 134/90 (105) 99 05/25/18 18:00 92 17 131/101 (111) 98 05/25/18 17:00 88 15 137/109 (118) 97 05/25/18 16:46 80 22 99 Facial 40 05/25/18 16:00 94 05/25/18 16:00 98.6 91 15 121/96 (104) 97 05/25/18 16:00 Nasal Cannula 4.0 Venturi Mask 05/25/18 15:30 92 22 96 05/25/18 15:30 87 15 130/99 (109) 97 05/25/18 15:00 92 14 143/128 (133) 99 Height (Feet): 5 Height (Inches): 3.00 Weight (Pounds): 324 General Appearance: WD/WN, no acute distress HEENT: normocephalic, atraumatic, anicteric, mucous membranes moist, PERRL, pharynx normal, supple, no JVD Respiratory/Chest: chest wall non-tender, lungs clear, normal breath sounds, no respiratory distress, no accessory muscle use Cardiovascular: normal peripheral pulses, normal rate, regular rhythm, no gallop/murmur, no JVD Abdomen: normal bowel sounds, soft, non tender, no organomegaly, non distended , no mass, no scars Extremities: no cyanosis, no clubbing Skin: no rash, no lesions, no ulcers Neurologic/Psychiatric: alert, responsive Lymphatic: no neck adenopathy, no groin adenopathy Musculoskeletal: normal muscle bulk, no effusion Laboratory Tests Test 05/25/18 21:12 05/26/18 04:00 05/26/18 05:00 Vancomycin Level Trough 14.9 ug/mL (5.0-12.0) H Venous Blood pH Pending Pending Venous Blood Partial Pressure CO2 Pending Pending Venous Blood Partial Pressure O2 Pending Pending Venous Blood HCO3 Pending Pending Venous Blood Total Carbon Dioxide Pending Pending Venous Bld O2 Saturation (Measured) Pending Pending Venous Blood Oxygen Saturation Pending Pending Venous Blood Base Excess Pending Pending Methemoglobin Pending Sodium (Blood Gas) Pending Pending White Blood Count 10.2 K/UL (4.8-10.8) Red Blood Count 4.88 M/UL (4.20-5.40) Hemoglobin 12.1 G/DL (12.0-16.0) Hematocrit 41.8 % (37.0-47.0) Mean Corpuscular Volume 86 FL (80-99) Mean Corpuscular Hemoglobin 24.8 PG (27.0-31.0) L Mean Corpuscular Hemoglobin Concent 29.0 G/DL (32.0-36.0) L Red Cell Distribution Width 20.2 % (11.6-14.8) H Platelet Count 292 K/UL (150-450) Mean Platelet Volume 7.9 FL (6.5-10.1) Neutrophils (%) (Auto) 78.8 % (45.0-75.0) H Lymphocytes (%) (Auto) 14.1 % (20.0-45.0) L Monocytes (%) (Auto) 5.6 % (1.0-10.0) Eosinophils (%) (Auto) 0.6 % (0.0-3.0) Basophils (%) (Auto) 1.0 % (0.0-2.0) Sodium Level 150 MMOL/L (136-145) H Potassium Level 3.6 MMOL/L (3.5-5.1) Chloride Level 114 MMOL/L (98-107) H Carbon Dioxide Level 27 MMOL/L (21-32) Anion Gap 9 mmol/L (5-15) Blood Urea Nitrogen 36 mg/dL (7-18) H Creatinine 1.3 MG/DL (0.55-1.30) Estimat Glomerular Filtration Rate 49.8 mL/min (>60) Glucose Level 72 MG/DL (74-106) L Uric Acid 8.3 MG/DL (2.6-7.2) H Calcium Level 9.3 MG/DL (8.5-10.1) Phosphorus Level 3.5 MG/DL (2.5-4.9) Magnesium Level 2.1 MG/DL (1.8-2.4) Total Bilirubin 1.4 MG/DL (0.2-1.0) H Direct Bilirubin 0.9 MG/DL (0.0-0.3) H Gamma Glutamyl Transpeptidase 173 U/L (5-85) H Aspartate Amino Transf (AST/SGOT) 32 U/L (15-37) Alanine Aminotransferase (ALT/SGPT) 12 U/L (12-78) Alkaline Phosphatase 229 U/L (46-116) H Troponin I 0.046 ng/mL (0.000-0.056) Pro-B-Type Natriuretic Peptide 4088 pg/mL (0-125) H Total Protein 6.8 G/DL (6.4-8.2) Albumin 2.4 G/DL (3.4-5.0) L Globulin 4.4 g/dL Albumin/Globulin Ratio 0.5 (1.0-2.7) L Current Medications Medications (Trade) Dose Ordered Sig/Toya Route PRN Reason Start Time Stop Time Status Last Admin Dose Admin Allopurinol (Allopurinol) 300 mg DAILY NG 05/19/18 13:00 06/18/18 12:59 05/26/18 09:45 Ascorbic Acid (Vitamin C) 500 mg TWICE A DAY NG 05/18/18 09:00 06/15/18 17:59 05/26/18 09:45 Atorvastatin Calcium (Lipitor) 20 mg BEDTIME ORAL 05/17/18 21:00 06/13/18 20:59 05/25/18 21:16 Aztreonam 2 gm/ Dextrose 110 ml @ 220 mls/hr Q8HR@0000,0800,1600 IVPB 05/17/18 16:00 05/29/18 15:59 05/26/18 09:45 Chlorhexidine Gluconate (Romy-Hex 2%) 1 applic DAILY@2000 TOPIC 05/14/18 20:00 06/13/18 19:59 05/25/18 21:01 Clopidogrel Bisulfate (Plavix) 75 mg DAILY NG 05/18/18 09:00 06/14/18 08:59 05/26/18 09:45 Dextrose (Dextrose 50%) 25 ml Q30M PRN IV Hypoglycemia 05/13/18 21:00 06/11/18 16:59 Dextrose (Dextrose 50%) 50 ml Q30M PRN IV Hypoglycemia 05/13/18 21:00 06/11/18 16:59 Dopamine HCl/ Dextrose 250 ml @ 0 mls/hr Q24H IV 05/15/18 19:00 06/14/18 18:59 05/16/18 18:05 Fentanyl Citrate 1000 mcg/Sodium Chloride 100 ml @ 0 mls/hr Q24H IV 05/21/18 13:00 05/28/18 12:59 05/22/18 18:09 Furosemide (Lasix) 20 mg Q12HR IV 05/26/18 21:00 06/23/18 16:03 Insulin Aspart (NovoLOG) Q6HR SUBQ 05/18/18 13:00 06/11/18 12:59 05/26/18 12:22 Midodrine (Pro-Amatine) 2.5 mg Q8HR NG 05/26/18 22:00 06/17/18 12:59 Multivitamins (Multivitamins) 1 tab DAILY ORAL 05/18/18 09:00 06/16/18 08:59 05/26/18 09:46 Nitroglycerin (Ntg) 1 patch Q24H TDERMAL 05/15/18 09:00 06/14/18 08:59 05/26/18 09:48 Pantoprazole (Protonix) 40 mg DAILY IVP 05/26/18 09:00 06/13/18 20:59 05/26/18 09:46 Povidone Iodine (Betadine Gretchen) 1 applic BID TOPIC 05/16/18 09:00 06/15/18 08:59 05/26/18 09:48 Sodium Chloride 500 ml @ 999 mls/hr Q31M PRN IV For hypotension 05/14/18 01:30 06/13/18 01:29 05/21/18 19:22 Vancomycin HCl (Vanco rx to dose) 1 ea DAILY PRN MISC Per rx protocol 05/23/18 17:30 06/22/18 17:29 Vancomycin HCl 1 gm/Dextrose 275 ml @ 183.708 mls/hr Q12H IVPB 05/25/18 22:00 05/30/18 21:59 05/26/18 10:52 Juice Wilkerson M.D. May 26, 2018 14:41
--- NOTE | 2018-05-26 15:00 | GI Progress Note ---
Assessment/Plan Problems: (1) DM (diabetes mellitus) ICD Codes: E11.9 - DM (diabetes mellitus) SNOMED: 59246079 (2) Intractable abdominal pain ICD Codes: R10.9 - Unspecified abdominal pain SNOMED: 17390903 (3) Elevated transaminase level ICD Codes: R74.0 - Nonspecific elevation of levels of transaminase and lactic acid dehydrogenase [LDH] SNOMED: 412880077 (4) Abdominal distension ICD Codes: R14.0 - Abdominal distension (gaseous) SNOMED: 84709878 (5) Liver disease ICD Codes: K76.9 - Liver disease, unspecified SNOMED: 262740354 (6) Acute encephalopathy ICD Codes: G93.40 - Encephalopathy, unspecified SNOMED: 30631124, 032621359 Status: progressing Status Narrative Discussed with Dr. Paul. Assessment/Plan OB stool negative x2 hepatitis panel negative abdominal US reviewed >> - Ascites - Borderline hepatomegaly - Thick-walled gallbladder, likely in part artifact of nondistention, and in part due to hemodynamic factors causing the ascites. No definite gallstones. Acute cholecystitis not completely excludable, due to the wall thickening, and hepatobiliary scan should be considered if there is high clinical suspicion for such. - Negative for dilated ducts - To and fro flow within the main portal vein, could indicate portal hypertension HIDA and paracentesis when respiratory status stabilizes on cardiac diet cont lactulose Wean off of sedatives and narcotics monitor H&H, prn transfusions rectal tube bowel regime ppi fu labs will consider endoscopy pending work up, but will require cardiac clearance given elevated troponin levels The patient was seen and examined at bedside and all new and available data was reviewed in the patients chart. I agree with the above findings, impression and plan. (Patient seen earlier today. Signature stamp does not reflect patient encounter time.). - Robert Paul MD Subjective Subjective limited Objective Last 24 Hour Vital Signs Date Time Temp Pulse Resp B/P (MAP) Pulse Ox O2 Delivery O2 Flow Rate FiO2 05/26/18 13:29 91 22 96 05/26/18 13:00 90 16 162/110 (127) 94 05/26/18 12:00 98.3 90 18 158/99 (118) 97 05/26/18 12:00 Nasal Cannula 4.0 05/26/18 12:00 94 05/26/18 11:40 93 20 99 05/26/18 11:00 94 16 149/99 (116) 96 05/26/18 10:00 93 18 140/88 (105) 97 05/26/18 09:48 140/88 05/26/18 09:23 90 20 97 05/26/18 09:00 92 16 135/89 (104) 96 05/26/18 08:00 Nasal Cannula 4.0 05/26/18 08:00 96 05/26/18 08:00 98.7 91 17 156/96 (116) 99 05/26/18 07:00 83 17 135/91 (106) 98 05/26/18 07:00 93 20 97 05/26/18 06:00 88 17 142/106 (118) 98 05/26/18 05:30 89 20 97 05/26/18 05:00 90 17 110/88 (95) 97 05/26/18 04:00 98.6 89 19 148/101 (117) 66 05/26/18 04:00 91 05/26/18 04:00 Nasal Cannula 4.0 Venturi Mask 05/26/18 03:05 93 20 98 05/26/18 03:00 90 18 181/80 (113) 97 05/26/18 02:00 90 18 57/47 (50) 99 05/26/18 01:00 89 20 98 05/26/18 01:00 93 17 127/94 (105) 98 05/26/18 00:00 91 05/26/18 00:00 98.9 91 20 132/89 (103) 98 05/26/18 00:00 Nasal Cannula 4.0 Venturi Mask 05/25/18 23:28 86 18 97 05/25/18 23:00 90 17 110/88 (95) 97 05/25/18 22:00 84 19 137/103 (114) 99 05/25/18 21:00 89 18 136/92 (107) 99 05/25/18 20:48 90 18 99 Facial 40 05/25/18 20:00 98.4 80 17 138/93 (108) 100 05/25/18 20:00 Nasal Cannula 4.0 Venturi Mask 05/25/18 20:00 80 05/25/18 19:25 92 22 99 Facial 40 05/25/18 19:00 93 19 134/90 (105) 99 05/25/18 18:00 92 17 131/101 (111) 98 05/25/18 17:00 88 15 137/109 (118) 97 05/25/18 16:46 80 22 99 Facial 40 05/25/18 16:00 94 05/25/18 16:00 98.6 91 15 121/96 (104) 97 05/25/18 16:00 Nasal Cannula 4.0 Venturi Mask 05/25/18 15:30 92 22 96 05/25/18 15:30 87 15 130/99 (109) 97 05/25/18 15:00 92 14 143/128 (133) 99 Intake and Output 05/25/18 05/26/18 19:00 07:00 Intake Total 733.327 ml 715 ml Output Total 530 ml 600 ml Balance 203.327 ml 115 ml Intake Oral 180 ml 330 ml IV Total 553.327 ml 385 ml Output Urine Total 430 ml 600 ml Stool Total 100 ml # Bowel Movements 1 1 Laboratory Tests Test 05/25/18 21:12 05/26/18 04:00 05/26/18 05:00 Vancomycin Level Trough 14.9 ug/mL (5.0-12.0) H Venous Blood pH Pending Pending Venous Blood Partial Pressure CO2 Pending Pending Venous Blood Partial Pressure O2 Pending Pending Venous Blood HCO3 Pending Pending Venous Blood Total Carbon Dioxide Pending Pending Venous Bld O2 Saturation (Measured) Pending Pending Venous Blood Oxygen Saturation Pending Pending Venous Blood Base Excess Pending Pending Methemoglobin Pending Sodium (Blood Gas) Pending Pending White Blood Count 10.2 K/UL (4.8-10.8) Red Blood Count 4.88 M/UL (4.20-5.40) Hemoglobin 12.1 G/DL (12.0-16.0) Hematocrit 41.8 % (37.0-47.0) Mean Corpuscular Volume 86 FL (80-99) Mean Corpuscular Hemoglobin 24.8 PG (27.0-31.0) L Mean Corpuscular Hemoglobin Concent 29.0 G/DL (32.0-36.0) L Red Cell Distribution Width 20.2 % (11.6-14.8) H Platelet Count 292 K/UL (150-450) Mean Platelet Volume 7.9 FL (6.5-10.1) Neutrophils (%) (Auto) 78.8 % (45.0-75.0) H Lymphocytes (%) (Auto) 14.1 % (20.0-45.0) L Monocytes (%) (Auto) 5.6 % (1.0-10.0) Eosinophils (%) (Auto) 0.6 % (0.0-3.0) Basophils (%) (Auto) 1.0 % (0.0-2.0) Sodium Level 150 MMOL/L (136-145) H Potassium Level 3.6 MMOL/L (3.5-5.1) Chloride Level 114 MMOL/L (98-107) H Carbon Dioxide Level 27 MMOL/L (21-32) Anion Gap 9 mmol/L (5-15) Blood Urea Nitrogen 36 mg/dL (7-18) H Creatinine 1.3 MG/DL (0.55-1.30) Estimat Glomerular Filtration Rate 49.8 mL/min (>60) Glucose Level 72 MG/DL (74-106) L Uric Acid 8.3 MG/DL (2.6-7.2) H Calcium Level 9.3 MG/DL (8.5-10.1) Phosphorus Level 3.5 MG/DL (2.5-4.9) Magnesium Level 2.1 MG/DL (1.8-2.4) Total Bilirubin 1.4 MG/DL (0.2-1.0) H Direct Bilirubin 0.9 MG/DL (0.0-0.3) H Gamma Glutamyl Transpeptidase 173 U/L (5-85) H Aspartate Amino Transf (AST/SGOT) 32 U/L (15-37) Alanine Aminotransferase (ALT/SGPT) 12 U/L (12-78) Alkaline Phosphatase 229 U/L (46-116) H Troponin I 0.046 ng/mL (0.000-0.056) Pro-B-Type Natriuretic Peptide 4088 pg/mL (0-125) H Total Protein 6.8 G/DL (6.4-8.2) Albumin 2.4 G/DL (3.4-5.0) L Globulin 4.4 g/dL Albumin/Globulin Ratio 0.5 (1.0-2.7) L Height (Feet): 5 Height (Inches): 3.00 Weight (Pounds): 324 General Appearance: alert, morbidly obese Cardiovascular: normal rate Respiratory/Chest: no respiratory distress Abdominal Exam: soft, distended Otilio Cohen NP May 26, 2018 15:00
--- NOTE | 2018-05-26 15:48 | Nephrology Progress Note ---
Assessment/Plan Problem List: (1) ARF (acute renal failure) (2) Cellulitis of both lower extremities (3) Venous stasis ulcers of both lower extremities (4) DM (diabetes mellitus) (5) CKD (chronic kidney disease) (6) Morbid (severe) obesity due to excess calories (7) Acute hypoxemic respiratory failure Assessment extubated on bipap- Diabetic Nephropathy Cr 1.4 acute renal failure super imposed on CKD Encephalopathy, CO2 retainer, respiratory failure acute Obesity High Trop High Bili UTI Bilateral LE cellulitis Anemia Plan pulmonary support, post extubation H2O NGT add zestril for high bp 24 h urine crcl 29 cc 24 h protein 0.6 gr midodrine increase dose DC IV fluids Anaya pressors as needed Avoid nephrotoxics monitor renal parameters 2D echo Ej Fx 55% kidney WESLEY no pathology reported Per ID , Pulm... meds IV or OG tube Avoid mind altering meds per orders Subjective ROS Limited/Unobtainable: No Constitutional: Reports: other Objective Objective Last 24 Hour Vital Signs Date Time Temp Pulse Resp B/P (MAP) Pulse Ox O2 Delivery O2 Flow Rate FiO2 05/26/18 13:29 91 22 96 05/26/18 13:00 90 16 162/110 (127) 94 05/26/18 12:00 98.3 90 18 158/99 (118) 97 05/26/18 12:00 Nasal Cannula 4.0 05/26/18 12:00 94 05/26/18 11:40 93 20 99 05/26/18 11:00 94 16 149/99 (116) 96 05/26/18 10:00 93 18 140/88 (105) 97 05/26/18 09:48 140/88 05/26/18 09:23 90 20 97 05/26/18 09:00 92 16 135/89 (104) 96 05/26/18 08:00 Nasal Cannula 4.0 05/26/18 08:00 96 05/26/18 08:00 98.7 91 17 156/96 (116) 99 05/26/18 07:00 83 17 135/91 (106) 98 05/26/18 07:00 93 20 97 05/26/18 06:00 88 17 142/106 (118) 98 05/26/18 05:30 89 20 97 05/26/18 05:00 90 17 110/88 (95) 97 05/26/18 04:00 98.6 89 19 148/101 (117) 66 05/26/18 04:00 91 05/26/18 04:00 Nasal Cannula 4.0 Venturi Mask 05/26/18 03:05 93 20 98 05/26/18 03:00 90 18 181/80 (113) 97 05/26/18 02:00 90 18 57/47 (50) 99 05/26/18 01:00 89 20 98 05/26/18 01:00 93 17 127/94 (105) 98 05/26/18 00:00 91 05/26/18 00:00 98.9 91 20 132/89 (103) 98 05/26/18 00:00 Nasal Cannula 4.0 Venturi Mask 05/25/18 23:28 86 18 97 05/25/18 23:00 90 17 110/88 (95) 97 05/25/18 22:00 84 19 137/103 (114) 99 05/25/18 21:00 89 18 136/92 (107) 99 05/25/18 20:48 90 18 99 Facial 40 05/25/18 20:00 98.4 80 17 138/93 (108) 100 05/25/18 20:00 Nasal Cannula 4.0 Venturi Mask 05/25/18 20:00 80 05/25/18 19:25 92 22 99 Facial 40 05/25/18 19:00 93 19 134/90 (105) 99 05/25/18 18:00 92 17 131/101 (111) 98 05/25/18 17:00 88 15 137/109 (118) 97 05/25/18 16:46 80 22 99 Facial 40 05/25/18 16:00 94 05/25/18 16:00 98.6 91 15 121/96 (104) 97 05/25/18 16:00 Nasal Cannula 4.0 Venturi Mask Intake and Output 05/25/18 05/26/18 19:00 07:00 Intake Total 733.327 ml 715 ml Output Total 530 ml 600 ml Balance 203.327 ml 115 ml Intake Oral 180 ml 330 ml IV Total 553.327 ml 385 ml Output Urine Total 430 ml 600 ml Stool Total 100 ml # Bowel Movements 1 1 Laboratory Tests 05/25/18 21:12: Vancomycin Level Trough 14.9H 05/26/18 04:00: Venous Blood pH [Pending], Venous Blood Partial Pressure CO2 [Pending], Venous Blood Partial Pressure O2 [Pending], Venous Blood HCO3 [Pending], Venous Blood Total Carbon Dioxide [Pending], Venous Bld O2 Saturation (Measured) [Pending], Venous Blood Oxygen Saturation [Pending], Venous Blood Base Excess [Pending], Methemoglobin , Sodium (Blood Gas) [Pending] 05/26/18 05:00: Venous Blood pH [Pending], Venous Blood Partial Pressure CO2 [Pending], Venous Blood Partial Pressure O2 [Pending], Venous Blood HCO3 [Pending], Venous Blood Total Carbon Dioxide [Pending], Venous Bld O2 Saturation (Measured) [Pending], Venous Blood Oxygen Saturation [Pending], Venous Blood Base Excess [Pending], Methemoglobin [Pending], Sodium (Blood Gas) [Pending], White Blood Count 10.2, Red Blood Count 4.88, Hemoglobin 12.1, Hematocrit 41.8, Mean Corpuscular Volume 86, Mean Corpuscular Hemoglobin 24.8L, Mean Corpuscular Hemoglobin Concent 29.0L , Red Cell Distribution Width 20.2H, Platelet Count 292, Mean Platelet Volume 7.9, Neutrophils (%) (Auto) 78.8H, Lymphocytes (%) (Auto) 14.1L, Monocytes (%) ( Auto) 5.6, Eosinophils (%) (Auto) 0.6, Basophils (%) (Auto) 1.0, Sodium Level 150H, Potassium Level 3.6, Chloride Level 114H, Carbon Dioxide Level 27, Anion Gap 9, Blood Urea Nitrogen 36H, Creatinine 1.3, Estimat Glomerular Filtration Rate 49.8, Glucose Level 72L, Uric Acid 8.3H, Calcium Level 9.3, Phosphorus Level 3.5, Magnesium Level 2.1, Total Bilirubin 1.4H, Direct Bilirubin 0.9H, Gamma Glutamyl Transpeptidase 173H, Aspartate Amino Transf (AST/SGOT) 32, Alanine Aminotransferase (ALT/SGPT) 12, Alkaline Phosphatase 229H, Troponin I 0.046, Pro-B-Type Natriuretic Peptide 4088H, Total Protein 6.8, Albumin 2.4L, Globulin 4.4, Albumin/Globulin Ratio 0.5L 05/26/18 14:01: Arterial Blood pH 7.250*L, Arterial Blood Partial Pressure CO2 56.8*H, Arterial Blood Partial Pressure O2 90.0, Arterial Blood HCO3 24.7, Arterial Blood Oxygen Saturation 96.2, Arterial Blood Base Excess -3.2L, Aditya Test Positive 05/26/18 14:50: Lactic Acid Level [Pending] Height (Feet): 5 Height (Inches): 3.00 Weight (Pounds): 324 General Appearance: no apparent distress Cardiovascular: tachycardia Respiratory/Chest: decreased breath sounds Abdomen: soft Objective no change Tr Strange MD May 26, 2018 15:48
--- NOTE | 2018-05-26 15:51 | NUR ---
NURSE NOTES: Dr. Ritchie informed regarding ABG results, he ordered to have patient placed on Bipap and obtain a VBG on the 05/26/18 at 0400, patient explained the need for bipap use he is placed on settings of 18/6 fio2 40%, she remains at 100% at RR of 16-20, patient is calm and understands commands, will carry out orders.
[2018-05-26] MEDS: Lisinopril 2.5mg tab ORAL SCH (17:01)
--- NOTE | 2018-05-26 18:39 | NUR ---
NURSE NOTES: Novolog held since patient is no eating, BS is 112, she is sleeping and alert to name, follows commands, she remains on bipap saturating at 100%
[2018-05-26] MEDS: DOPamine 400mg/250ml 250 ML IV SCH (19:00)
--- NOTE | 2018-05-26 19:20 | NUR ---
NURSE NOTES: Report received from LUCIO Bravo. Pt A/Ox3 .child monitor shows SR w/1st degree AV block. Pt currently on 2L NC. Tolerating well, O2 saturation @ 97%. Shows no signs of cardiac or respiratory distress. Pt on a cardiac diet. A neff catheter is present and draining well. Accuchecks are Q6h. Multiple wounds present, see WCP for skin alterations. Pt has a FLORENCIO PICC, asymptomatic and ptent. Bed in lowest position, bed alarms placed. Will continue to monitor and with patients plan of care.
--- NOTE | 2018-05-26 19:31 | NUR ---
HAND-OFF: Report given to LUCIO James.
--- NOTE | 2018-05-26 20:30 | NUR ---
NURSE NOTES: Pt awake, refused dinner but willing to eat Jell-o. VSS. Pt on 4LNC. Will continue to monitor.
[2018-05-26] MEDS: Dyna-Hex 2% Top Sol 2oz TOPIC SCH (20:58)
[2018-05-26] MEDS: Atorvastatin 20mg tab ORAL SCH (20:58)
--- NOTE | 2018-05-26 22:00 | NUR ---
NURSE NOTES: Pt awake, confused and restless. Attempts to comfort have been taken. VSS. In no acute distress. Will continue to monitor.
[2018-05-27] VITALS (25 sets, daily range): BP systolic 119–156; BP diastolic 71–109
--- NOTE | 2018-05-27 | NUR ---
Pt. received on 3l NC about to have dinner with no signs of distress. I came back an hour later pt. then eating jelo, half an hour later I came back to place her on Bipap. It took a lot of convincing before she decided to put it on. Pt. removed the mask after 45min being on it. It took another half an hour again before she decides to agree to put it on it again. I explained to her how important for her to go on Bipap and regarding the ABG results that were drawn earlier today. She would agree to put it on, but once we walk away she would pull the mask off. I left her on 3LNC with SpO2 of 95% which she removes throughout the night as well. Pt. is very restless. RN Tyler aware.
--- NOTE | 2018-05-27 | NUR ---
NURSE NOTES: Pt removed biPAP. Continued to reinforce importance of bipap but refuses. Pt put on 2LNC, O2 saturation @ 97%. Will continue to monitor.
--- NOTE | 2018-05-27 02:30 | NUR ---
NURSE NOTES: Pt awake, restless. Difficult to comfort. Currently on 2L NC. VSS. Will continue to monitor.
--- NOTE | 2018-05-27 05:00 | NUR ---
NURSE NOTES: Pt pulled out PICC. LFA20g and a RAC22g inserted. Pt placed on BiPAP after experiencing lethargy. Will continue to monitor.
[2018-05-27 05:26] LABS: BASOPHILS % (AUTO) 1.6 % (0.0-2.0); EOSINOPHILS % (AUTO) 1.5 % (0.0-3.0); HEMATOCRIT 44.5 % (37.0-47.0); HEMOGLOBIN 12.7 G/DL (12.0-16.0); LYMPHOCYTES % (AUTO) 12.1 % (20.0-45.0); MEAN CORPUSCULAR VOLUME 87 FL (80-99); MONOCYTES % (AUTO) 4.9 % (1.0-10.0); PLATELET COUNT 311 K/UL (150-450); RED BLOOD COUNT 5.14 M/UL (4.20-5.40); RED CELL DISTRIBUTION WIDTH 21.4 % (11.6-14.8); WHITE BLOOD COUNT 10.2 K/UL (4.8-10.8)
[2018-05-27] MEDS: NovoLOG Insulin Flexpen SUBQ SCH ×3 (06:00→18:22)
--- NOTE | 2018-05-27 06:00 | NUR ---
NURSE NOTES: Pt placed on non-behavioral restraints due to pulling of lines. Pt placed on BiPAP. Will continue to monitor.
[2018-05-27 06:11] LABS: ANION GAP 12 mmol/L (5-15); BLOOD UREA NITROGEN 32 mg/dL (7-18); CALCIUM 8.9 MG/DL (8.5-10.1); CARBON DIOXIDE 23 MMOL/L (21-32); CHLORIDE 113 MMOL/L (98-107); CREATININE 1.3 MG/DL (0.55-1.30); SODIUM 148 MMOL/L (136-145)
--- NOTE | 2018-05-27 07:30 | NUR ---
NURSE NOTES: Report received from Erika VALDES. Pt sleepy but arousable, alert and oriented with confusion at times. Pt able to make needs known. 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 Pt on bipap 12/10. Anaya intact with clear, yellow urine to gravity. Bilateral soft restraints on and noted. Pt continues to attempt to pull out lines and bipap mask. Safety measures in place with bed locked and in lowest position and side rails x3 up. Will continue to monitor and continue plan of care.
--- NOTE | 2018-05-27 07:32 | NUR ---
RESPIRATORY NOTE: Patient received on BiPAP with current ordered settings. There are bilateral clear/diminished breath sounds. Released face mask to reveal facial skin to be intact with no redness or skin breakdown. Cleaned face and re-tapped with extra layers of foam tape for skin protection. Will continue to monitor.
[2018-05-27] MEDS: AZTREONAM IVPB SCH ×4 (08:24→17:14)
[2018-05-27] MEDS: [UNRECOGNIZED DRUG - OTHER] IVPB SCH ×4 (08:24→17:14)
[2018-05-27] MEDS: Pantoprazole Inj IVP SCH (08:25)
[2018-05-27] MEDS: Nitroglycerin Patch 0.4mg TDERMAL SCH (08:25)
[2018-05-27] MEDS: Lisinopril 2.5mg tab ORAL SCH (08:26)
[2018-05-27] MEDS: Betadine 4oz Bottle TOPIC SCH ×2 (08:27→18:07)
[2018-05-27] MEDS: Ascorbic Acid 500mg tab NG SCH ×2 (08:27→18:00)
--- NOTE | 2018-05-27 09:33 | NUR ---
VBG: pH7.318 nLW811.8 mmHg pO249.4 mmHg TGT987.0 mmol/L BE-3.3 mmol/L sO287.0 % Note: LUCIO Barron notified.
--- NOTE | 2018-05-27 09:59 | NUR ---
NURSE NOTES: Dr Strange here to see pt. No acute distress. Will continue to monitor.
--- NOTE | 2018-05-27 10:05 | Nephrology Progress Note ---
Assessment/Plan Problem List: (1) ARF (acute renal failure) (2) Cellulitis of both lower extremities (3) Venous stasis ulcers of both lower extremities (4) DM (diabetes mellitus) (5) CKD (chronic kidney disease) (6) Morbid (severe) obesity due to excess calories (7) Acute hypoxemic respiratory failure Assessment extubated on bipap as needed- Diabetic Nephropathy Cr lower acute renal failure super imposed on CKD Encephalopathy, CO2 retainer, respiratory failure acute Obesity High Trop High Bili UTI Bilateral LE cellulitis Anemia Plan pulmonary support, post extubation Zestril and Norvasc for high bp 24 h urine crcl 29 cc 24 h protein 0.6 gr midodrine increase dose DC IV fluids Anaya pressors as needed Avoid nephrotoxics monitor renal parameters 2D echo Ej Fx 55% kidney WESLEY no pathology reported Per ID , Pulm... meds IV or OG tube Avoid mind altering meds per orders Subjective ROS Limited/Unobtainable: No Constitutional: Reports: other Subjective ALOC periodically Objective Objective Last 24 Hour Vital Signs Date Time Temp Pulse Resp B/P (MAP) Pulse Ox O2 Delivery O2 Flow Rate FiO2 05/27/18 09:41 88 17 97 Facial 35 05/27/18 09:00 98.2 77 11 130/100 (110) 97 05/27/18 08:26 130/100 05/27/18 08:25 130/100 05/27/18 08:00 98.2 77 11 130/100 (110) 97 05/27/18 08:00 84 05/27/18 08:00 Nasal Cannula 4.0 05/27/18 07:26 75 17 97 Facial 35 05/27/18 06:53 85 3 125/81 (96) 99 05/27/18 06:00 79 8 139/109 (119) 99 05/27/18 06:00 98.6 83 14 123/88 (100) 100 05/27/18 05:00 84 128/93 (105) 05/27/18 05:00 86 12 139/109 (119) 100 05/27/18 04:46 73 18 95 Facial 35 05/27/18 04:00 Nasal Cannula 4.0 05/27/18 04:00 91 25 149/107 (121) 05/27/18 04:00 83 14 128/93 (105) 100 05/27/18 04:00 87 1/31/19 04:00 87 05/27/18 03:00 89 13 149/107 (121) 89 05/27/18 03:00 88 16 149/107 (121) 98 05/27/18 02:14 88 17 136/79 (98) 97 05/27/18 02:00 89 15 136/71 (92) 97 05/27/18 02:00 86 18 91 05/27/18 01:14 89 24 96 3.0 32 05/27/18 01:00 89 16 156/90 (112) 96 05/27/18 01:00 89 16 152/106 (121) 96 05/27/18 00:19 88 152/106 (121) 97 05/27/18 00:15 32 05/27/18 00:00 77 97 05/27/18 00:00 Nasal Cannula 4.0 05/27/18 00:00 89 05/27/18 00:00 98.5 88 152/106 (121) 97 05/26/18 23:00 72 171/108 (129) 97 05/26/18 22:34 87 22 97 Facial 35 05/26/18 22:00 84 147/97 (114) 85 05/26/18 21:20 88 20 99 Facial 35 05/26/18 21:00 93 145/107 (120) 99 05/26/18 20:00 74 05/26/18 20:00 Nasal Cannula 4.0 05/26/18 20:00 98.2 89 154/101 (118) 100 05/26/18 19:20 2.0 05/26/18 19:00 88 138/92 (107) 93 05/26/18 18:00 77 18 150/106 (121) 100 05/26/18 17:11 76 18 100 Facial 35 05/26/18 17:01 151/115 05/26/18 17:00 75 16 143/99 (114) 100 05/26/18 16:00 69 05/26/18 16:00 75 16 100 Facial 40 05/26/18 16:00 Bi-pap 05/26/18 16:00 98.3 77 18 151/115 (127) 100 05/26/18 15:00 91 16 178/112 (134) 98 05/26/18 14:50 91 22 96 05/26/18 14:00 89 16 174/111 (132) 96 05/26/18 13:29 91 22 96 05/26/18 13:00 90 16 162/110 (127) 94 05/26/18 12:00 98.3 90 18 158/99 (118) 97 05/26/18 12:00 Nasal Cannula 4.0 05/26/18 12:00 94 05/26/18 11:40 93 20 99 05/26/18 11:00 94 16 149/99 (116) 96 Intake and Output 05/26/18 05/27/18 19:00 07:00 Intake Total 865 ml 705 ml Output Total 825 ml 1350 ml Balance 40 ml -645 ml Intake Oral 480 ml 320 ml IV Total 385 ml 385 ml Output Urine Total 825 ml 1350 ml # Bowel Movements 4 Laboratory Tests 05/26/18 14:01: Arterial Blood pH 7.250*L, Arterial Blood Partial Pressure CO2 56.8*H, Arterial Blood Partial Pressure O2 90.0, Arterial Blood HCO3 24.7, Arterial Blood Oxygen Saturation 96.2, Arterial Blood Base Excess -3.2L, Aditya Test Positive 05/26/18 14:50: Lactic Acid Level 0.80 05/27/18 04:20: White Blood Count 10.2, Red Blood Count 5.14, Hemoglobin 12.7, Hematocrit 44.5, Mean Corpuscular Volume 87, Mean Corpuscular Hemoglobin 24.8L, Mean Corpuscular Hemoglobin Concent 28.6L, Red Cell Distribution Width 21.4H, Platelet Count 311 , Mean Platelet Volume 10.2H, Neutrophils (%) (Auto) 80.0H, Lymphocytes (%) ( Auto) 12.1L, Monocytes (%) (Auto) 4.9, Eosinophils (%) (Auto) 1.5, Basophils (% ) (Auto) 1.6, Sodium Level 148H, Potassium Level 4.0, Chloride Level 113H, Carbon Dioxide Level 23, Anion Gap 12, Blood Urea Nitrogen 32H, Creatinine 1.3, Estimat Glomerular Filtration Rate 49.8, Glucose Level 96, Calcium Level 8.9 05/27/18 09:15: Vancomycin Level Trough [Pending] 05/27/18 09:25: Venous Blood pH [Pending], Venous Blood Partial Pressure CO2 [Pending], Venous Blood Partial Pressure O2 [Pending], Venous Blood HCO3 [Pending], Venous Blood Total Carbon Dioxide [Pending], Venous Bld O2 Saturation (Measured) , Venous Blood Oxygen Saturation [Pending], Venous Blood Base Excess [Pending], Methemoglobin [Pending], Sodium (Blood Gas) [Pending] Height (Feet): 5 Height (Inches): 3.00 Weight (Pounds): 325 General Appearance: no apparent distress, confused Cardiovascular: normal rate Respiratory/Chest: decreased breath sounds Abdomen: soft Objective no change Tr Strange MD May 27, 2018 10:05
[2018-05-27] MEDS: Vancomycin 1gm in D5W 275ml IVPB SCH (10:15)
--- NOTE | 2018-05-27 11:33 | GI Progress Note ---
Assessment/Plan Problems: (1) DM (diabetes mellitus) ICD Codes: E11.9 - DM (diabetes mellitus) SNOMED: 67537026 (2) Intractable abdominal pain ICD Codes: R10.9 - Unspecified abdominal pain SNOMED: 82978563 (3) Elevated transaminase level ICD Codes: R74.0 - Nonspecific elevation of levels of transaminase and lactic acid dehydrogenase [LDH] SNOMED: 907993405 (4) Abdominal distension ICD Codes: R14.0 - Abdominal distension (gaseous) SNOMED: 48409781 (5) Liver disease ICD Codes: K76.9 - Liver disease, unspecified SNOMED: 358564575 (6) Acute encephalopathy ICD Codes: G93.40 - Encephalopathy, unspecified SNOMED: 21998989, 611258625 Status: stable Status Narrative Discussed with Dr. Paul. Assessment/Plan OB stool negative x2 hepatitis panel negative abdominal US reviewed >> - Ascites - Borderline hepatomegaly - Thick-walled gallbladder, likely in part artifact of nondistention, and in part due to hemodynamic factors causing the ascites. No definite gallstones. Acute cholecystitis not completely excludable, due to the wall thickening, and hepatobiliary scan should be considered if there is high clinical suspicion for such. - Negative for dilated ducts - To and fro flow within the main portal vein, could indicate portal hypertension HIDA and paracentesis when respiratory status stabilizes on cardiac diet cont lactulose Wean off of sedatives and narcotics monitor H&H, prn transfusions rectal tube bowel regime ppi fu labs will consider endoscopy pending work up, but will require cardiac clearance given elevated troponin levels The patient was seen and examined at bedside and all new and available data was reviewed in the patients chart. I agree with the above findings, impression and plan. (Patient seen earlier today. Signature stamp does not reflect patient encounter time.). - Robert Paul MD Subjective Subjective denies abdominal pain tolerating diet Objective Last 24 Hour Vital Signs Date Time Temp Pulse Resp B/P (MAP) Pulse Ox O2 Delivery O2 Flow Rate FiO2 05/27/18 11:00 76 10 121/96 (104) 100 05/27/18 10:32 85 124/95 05/27/18 10:00 79 3 124/95 (105) 100 05/27/18 09:41 88 17 97 Facial 35 05/27/18 09:00 98.2 77 11 130/100 (110) 97 05/27/18 08:26 130/100 05/27/18 08:25 130/100 05/27/18 08:00 98.2 77 11 130/100 (110) 97 05/27/18 08:00 84 05/27/18 08:00 Nasal Cannula 4.0 05/27/18 07:26 75 17 97 Facial 35 05/27/18 06:53 85 3 125/81 (96) 99 05/27/18 06:00 79 8 139/109 (119) 99 05/27/18 06:00 98.6 83 14 123/88 (100) 100 05/27/18 05:00 84 128/93 (105) 05/27/18 05:00 86 12 139/109 (119) 100 05/27/18 04:46 73 18 95 Facial 35 05/27/18 04:00 Nasal Cannula 4.0 05/27/18 04:00 91 25 149/107 (121) 05/27/18 04:00 83 14 128/93 (105) 100 05/27/18 04:00 87 05/27/18 04:00 87 05/27/18 03:00 89 13 149/107 (121) 89 05/27/18 03:00 88 16 149/107 (121) 98 05/27/18 02:14 88 17 136/79 (98) 97 05/27/18 02:00 89 15 136/71 (92) 97 05/27/18 02:00 86 18 91 05/27/18 01:14 89 24 96 3.0 32 05/27/18 01:00 89 16 156/90 (112) 96 05/27/18 01:00 89 16 152/106 (121) 96 05/27/18 00:19 88 152/106 (121) 97 05/27/18 00:15 32 05/27/18 00:00 77 97 05/27/18 00:00 Nasal Cannula 4.0 05/27/18 00:00 89 05/27/18 00:00 98.5 88 152/106 (121) 97 05/26/18 23:00 72 171/108 (129) 97 05/26/18 22:34 87 22 97 Facial 35 05/26/18 22:00 84 147/97 (114) 85 05/26/18 21:20 88 20 99 Facial 35 05/26/18 21:00 93 145/107 (120) 99 05/26/18 20:00 74 05/26/18 20:00 Nasal Cannula 4.0 05/26/18 20:00 98.2 89 154/101 (118) 100 05/26/18 19:20 2.0 05/26/18 19:00 88 138/92 (107) 93 05/26/18 18:00 77 18 150/106 (121) 100 05/26/18 17:11 76 18 100 Facial 35 05/26/18 17:01 151/115 05/26/18 17:00 75 16 143/99 (114) 100 05/26/18 16:00 69 05/26/18 16:00 75 16 100 Facial 40 05/26/18 16:00 Bi-pap 05/26/18 16:00 98.3 77 18 151/115 (127) 100 05/26/18 15:00 91 16 178/112 (134) 98 05/26/18 14:50 91 22 96 05/26/18 14:00 89 16 174/111 (132) 96 05/26/18 13:29 91 22 96 05/26/18 13:00 90 16 162/110 (127) 94 05/26/18 12:00 98.3 90 18 158/99 (118) 97 05/26/18 12:00 Nasal Cannula 4.0 05/26/18 12:00 94 05/26/18 11:40 93 20 99 Intake and Output 05/26/18 05/27/18 19:00 07:00 Intake Total 865 ml 705 ml Output Total 825 ml 1350 ml Balance 40 ml -645 ml Intake Oral 480 ml 320 ml IV Total 385 ml 385 ml Output Urine Total 825 ml 1350 ml # Bowel Movements 4 Laboratory Tests Test 05/26/18 14:01 05/26/18 14:50 05/27/18 04:20 05/27/18 09:15 Arterial Blood pH 7.250 (7.350-7.450) Arterial Blood Partial Pressure CO2 56.8 mmHg (35.0-45.0) *H Arterial Blood Partial Pressure O2 90.0 mmHg (75.0-100.0) Arterial Blood HCO3 24.7 mmol/L (22.0-26.0) Arterial Blood Oxygen Saturation 96.2 % (95-100) Arterial Blood Base Excess -3.2 (-2-2) L Aditya Test Positive Lactic Acid Level 0.80 mmol/L (0.4-2.0) White Blood Count 10.2 K/UL (4.8-10.8) Red Blood Count 5.14 M/UL (4.20-5.40) Hemoglobin 12.7 G/DL (12.0-16.0) Hematocrit 44.5 % (37.0-47.0) Mean Corpuscular Volume 87 FL (80-99) Mean Corpuscular Hemoglobin 24.8 PG (27.0-31.0) L Mean Corpuscular Hemoglobin Concent 28.6 G/DL (32.0-36.0) L Red Cell Distribution Width 21.4 % (11.6-14.8) H Platelet Count 311 K/UL (150-450) Mean Platelet Volume 10.2 FL (6.5-10.1) H Neutrophils (%) (Auto) 80.0 % (45.0-75.0) H Lymphocytes (%) (Auto) 12.1 % (20.0-45.0) L Monocytes (%) (Auto) 4.9 % (1.0-10.0) Eosinophils (%) (Auto) 1.5 % (0.0-3.0) Basophils (%) (Auto) 1.6 % (0.0-2.0) Sodium Level 148 MMOL/L (136-145) H Potassium Level 4.0 MMOL/L (3.5-5.1) Chloride Level 113 MMOL/L (98-107) H Carbon Dioxide Level 23 MMOL/L (21-32) Anion Gap 12 mmol/L (5-15) Blood Urea Nitrogen 32 mg/dL (7-18) H Creatinine 1.3 MG/DL (0.55-1.30) Estimat Glomerular Filtration Rate 49.8 mL/min (>60) Glucose Level 96 MG/DL (74-106) Calcium Level 8.9 MG/DL (8.5-10.1) Vancomycin Level Trough 22.8 ug/mL (5.0-12.0) H Test 05/27/18 09:25 Venous Blood pH Pending Venous Blood Partial Pressure CO2 Pending Venous Blood Partial Pressure O2 Pending Venous Blood HCO3 Pending Venous Blood Total Carbon Dioxide Pending Venous Bld O2 Saturation (Measured) Venous Blood Oxygen Saturation Pending Venous Blood Base Excess Pending Methemoglobin Pending Sodium (Blood Gas) Pending Height (Feet): 5 Height (Inches): 3.00 Weight (Pounds): 325 General Appearance: WD/WN, no apparent distress, alert Cardiovascular: normal rate Respiratory/Chest: normal breath sounds, no respiratory distress Abdominal Exam: normal bowel sounds, non tender, soft Extremities: normal range of motion, non-tender Otilio Cohen NP May 27, 2018 11:33
--- NOTE | 2018-05-27 11:38 | General Progress Note ---
Assessment/Plan Assessment/Plan S, O: status post self-Extubation, PICC line in place, patient awake, following commands. limited exam PHYSICAL EXAMINATION: HEAD AND NECK: Atraumatic and normocephalic. CHEST: Diffuse bronchial breathing sounds. Overall decreased breathing sounds. ABDOMEN: Grossly morbidly obese. Limited evaluation. MUSCULOSKELETAL: Positive for ulcers and wounds, more diffusely edematous about 2+, superficial wounds on both legs , dressed . NEUROLOGIC: The patient is awake , follow commands . limited exam, Meds: Reviewed and reconciled. CXR dated 05/22/18 : reviewed ASSESSMENT: 1.Hypercapnic Vent Dependent Respiratory failure: S/P self-extubation 2. shock, ddx: septic vs cardiogenic : Resolved 3. CHF exacerbation, right sided, preserved EF 3. Acute/Chronic Renal F 4. Abnormal Trop: NSTEMI vs Leakage 3. UTI/lower extremity infection Hypertension. 4. Diabetes type 2, controlled with A1c of 6.3. 5. Pain management. 6. PAH 7. 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 HyperNatremia 6. GI and DVT prophylaxis. PLAN OF CARE: Guarded prognosis Off pressor, preserved BP Empirical abx, per ID Will Followup with pulmonary for post - Self- extubation care, C/w lasix, will titrate according to BP Subjective Allergies: Coded Allergies: ASPIRIN (Verified Allergy, Intermediate, Hives, 01/06/13) PENICILLINS (Verified Allergy, Intermediate, Hives, 01/06/13) Objective Last 24 Hour Vital Signs Date Time Temp Pulse Resp B/P (MAP) Pulse Ox O2 Delivery O2 Flow Rate FiO2 05/27/18 11:00 76 10 121/96 (104) 100 05/27/18 10:32 85 124/95 05/27/18 10:00 79 3 124/95 (105) 100 05/27/18 09:41 88 17 97 Facial 35 05/27/18 09:00 98.2 77 11 130/100 (110) 97 05/27/18 08:26 130/100 05/27/18 08:25 130/100 05/27/18 08:00 98.2 77 11 130/100 (110) 97 05/27/18 08:00 84 05/27/18 08:00 Nasal Cannula 4.0 05/27/18 07:26 75 17 97 Facial 35 05/27/18 06:53 85 3 125/81 (96) 99 05/27/18 06:00 79 8 139/109 (119) 99 05/27/18 06:00 98.6 83 14 123/88 (100) 100 05/27/18 05:00 84 128/93 (105) 05/27/18 05:00 86 12 139/109 (119) 100 05/27/18 04:46 73 18 95 Facial 35 05/27/18 04:00 Nasal Cannula 4.0 05/27/18 04:00 91 25 149/107 (121) 05/27/18 04:00 83 14 128/93 (105) 100 05/27/18 04:00 87 05/27/18 04:00 87 05/27/18 03:00 89 13 149/107 (121) 89 05/27/18 03:00 88 16 149/107 (121) 98 05/27/18 02:14 88 17 136/79 (98) 97 05/27/18 02:00 89 15 136/71 (92) 97 05/27/18 02:00 86 18 91 05/27/18 01:14 89 24 96 3.0 32 05/27/18 01:00 89 16 156/90 (112) 96 05/27/18 01:00 89 16 152/106 (121) 96 05/27/18 00:19 88 152/106 (121) 97 05/27/18 00:15 32 05/27/18 00:00 77 97 05/27/18 00:00 Nasal Cannula 4.0 05/27/18 00:00 89 05/27/18 00:00 98.5 88 152/106 (121) 97 05/26/18 23:00 72 171/108 (129) 97 05/26/18 22:34 87 22 97 Facial 35 05/26/18 22:00 84 147/97 (114) 85 05/26/18 21:20 88 20 99 Facial 35 05/26/18 21:00 93 145/107 (120) 99 05/26/18 20:00 74 05/26/18 20:00 Nasal Cannula 4.0 05/26/18 20:00 98.2 89 154/101 (118) 100 05/26/18 19:20 2.0 05/26/18 19:00 88 138/92 (107) 93 05/26/18 18:00 77 18 150/106 (121) 100 05/26/18 17:11 76 18 100 Facial 35 05/26/18 17:01 151/115 05/26/18 17:00 75 16 143/99 (114) 100 05/26/18 16:00 69 05/26/18 16:00 75 16 100 Facial 40 05/26/18 16:00 Bi-pap 05/26/18 16:00 98.3 77 18 151/115 (127) 100 05/26/18 15:00 91 16 178/112 (134) 98 05/26/18 14:50 91 22 96 05/26/18 14:00 89 16 174/111 (132) 96 05/26/18 13:29 91 22 96 05/26/18 13:00 90 16 162/110 (127) 94 05/26/18 12:00 98.3 90 18 158/99 (118) 97 05/26/18 12:00 Nasal Cannula 4.0 05/26/18 12:00 94 05/26/18 11:40 93 20 99 Intake and Output 05/26/18 05/27/18 19:00 07:00 Intake Total 865 ml 705 ml Output Total 825 ml 1350 ml Balance 40 ml -645 ml Intake Oral 480 ml 320 ml IV Total 385 ml 385 ml Output Urine Total 825 ml 1350 ml # Bowel Movements 4 Laboratory Tests 05/26/18 14:01: Arterial Blood pH 7.250*L, Arterial Blood Partial Pressure CO2 56.8*H, Arterial Blood Partial Pressure O2 90.0, Arterial Blood HCO3 24.7, Arterial Blood Oxygen Saturation 96.2, Arterial Blood Base Excess -3.2L, Aditya Test Positive 05/26/18 14:50: Lactic Acid Level 0.80 05/27/18 04:20: White Blood Count 10.2, Red Blood Count 5.14, Hemoglobin 12.7, Hematocrit 44.5, Mean Corpuscular Volume 87, Mean Corpuscular Hemoglobin 24.8L, Mean Corpuscular Hemoglobin Concent 28.6L, Red Cell Distribution Width 21.4H, Platelet Count 311 , Mean Platelet Volume 10.2H, Neutrophils (%) (Auto) 80.0H, Lymphocytes (%) ( Auto) 12.1L, Monocytes (%) (Auto) 4.9, Eosinophils (%) (Auto) 1.5, Basophils (% ) (Auto) 1.6, Sodium Level 148H, Potassium Level 4.0, Chloride Level 113H, Carbon Dioxide Level 23, Anion Gap 12, Blood Urea Nitrogen 32H, Creatinine 1.3, Estimat Glomerular Filtration Rate 49.8, Glucose Level 96, Calcium Level 8.9 05/27/18 09:15: Vancomycin Level Trough 22.8H 05/27/18 09:25: Venous Blood pH [Pending], Venous Blood Partial Pressure CO2 [Pending], Venous Blood Partial Pressure O2 [Pending], Venous Blood HCO3 [Pending], Venous Blood Total Carbon Dioxide [Pending], Venous Bld O2 Saturation (Measured) , Venous Blood Oxygen Saturation [Pending], Venous Blood Base Excess [Pending], Methemoglobin [Pending], Sodium (Blood Gas) [Pending] Height (Feet): 5 Height (Inches): 3.00 Weight (Pounds): 325 Margaret Mckinney MD May 27, 2018 11:38
--- NOTE | 2018-05-27 11:54 | NUR ---
ST NOTE: SWALLOW STATUS FOLLOWED UP PT'S CONDITIONS. PT SEEN AT BEDSIDE IN LATE AM. PER RN, PT DID NOT SLEEP LAST NIGHT AND PT REQUIRED TO PUT BACK ON BIBPAP AT THIS TIME. PER RNYOVANY, PT WAS ABLE TO TOLERATE CURRENT DIET WITHOUT OVERT S/S OF ASPIRATION. FOR QUALITY OF LIFE, CONTINUE CURRENT DIET WITH STRICT ASPIRATION/REFLUX PRECAUTIONS WITH 1ON1 SUPERVISION.
[2018-05-27] MEDS: fentaNYL Citrate 1000 MCG in NS 100ml IV SCH (13:00)
--- NOTE | 2018-05-27 13:05 | NUR ---
NURSE NOTES: Dr Ritchie here to see pt. VBG ordered for tomorrow. Will continue to monitor.
--- NOTE | 2018-05-27 14:00 | NUR ---
NURSE NOTES: Turned and repositioned pt. No acute distress. Will continue to monitor.
--- NOTE | 2018-05-27 14:36 | Cardiology Report ---
APPROVED REPORT EKG Measurement Heart [id number] Normal sinus rhythm Right bundle branch block Septal infarct, age undetermined Abnormal ECG
--- NOTE | 2018-05-27 15:18 | Pulmonolgy Critical Care Note ---
Critical Care - Asmt/Plan Assessment/Plan: 67 y/o female w/ DM, CKD, morbid obesity admitted with b/l LE cellulitis and altered mental status. Problem List: 1. Altered mental status 2. Acute hypercapnic respiratory failure -intubated 05/15 -self-extubated 05/24 3. Bilateral lower extremity cellulitis 4. RACHELLE on CKD 5. DM 6. Morbid obesity 7. Elevated ammonia level 8. RV failure 9. Acute diastolic Congestive heart failure 10. 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, ID Discussed with: nurses Critical Care - Objective Last 24 Hour Vital Signs Date Time Temp Pulse Resp B/P (MAP) Pulse Ox O2 Delivery O2 Flow Rate FiO2 05/27/18 15:00 80 15 120/85 (97) 98 05/27/18 14:00 87 11 129/89 (102) 99 05/27/18 13:15 75 19 100 Facial 35 05/27/18 13:00 75 15 135/98 (110) 100 05/27/18 12:00 Nasal Cannula 4.0 05/27/18 12:00 74 05/27/18 12:00 98.0 75 12 119/96 (104) 05/27/18 11:12 76 18 97 Facial 35 05/27/18 11:00 76 10 121/96 (104) 100 05/27/18 10:32 85 124/95 05/27/18 10:00 79 3 124/95 (105) 100 05/27/18 09:41 88 17 97 Facial 35 05/27/18 09:00 98.2 77 11 130/100 (110) 97 05/27/18 08:26 130/100 05/27/18 08:25 130/100 05/27/18 08:00 98.2 77 11 130/100 (110) 97 05/27/18 08:00 84 05/27/18 08:00 Nasal Cannula 4.0 05/27/18 07:26 75 17 97 Facial 35 05/27/18 06:53 85 3 125/81 (96) 99 05/27/18 06:00 79 8 139/109 (119) 99 05/27/18 06:00 98.6 83 14 123/88 (100) 100 05/27/18 05:00 84 128/93 (105) 05/27/18 05:00 86 12 139/109 (119) 100 05/27/18 04:46 73 18 95 Facial 35 05/27/18 04:00 Nasal Cannula 4.0 05/27/18 04:00 91 25 149/107 (121) 05/27/18 04:00 83 14 128/93 (105) 100 05/27/18 04:00 87 05/27/18 04:00 87 05/27/18 03:00 89 13 149/107 (121) 89 05/27/18 03:00 88 16 149/107 (121) 98 05/27/18 02:14 88 17 136/79 (98) 97 05/27/18 02:00 89 15 136/71 (92) 97 05/27/18 02:00 86 18 91 05/27/18 01:14 89 24 96 3.0 32 05/27/18 01:00 89 16 156/90 (112) 96 05/27/18 01:00 89 16 152/106 (121) 96 05/27/18 00:19 88 152/106 (121) 97 05/27/18 00:15 32 05/27/18 00:00 77 97 05/27/18 00:00 Nasal Cannula 4.0 05/27/18 00:00 89 05/27/18 00:00 98.5 88 152/106 (121) 97 05/26/18 23:00 72 171/108 (129) 97 05/26/18 22:34 87 22 97 Facial 35 05/26/18 22:00 84 147/97 (114) 85 05/26/18 21:20 88 20 99 Facial 35 05/26/18 21:00 93 145/107 (120) 99 05/26/18 20:00 74 05/26/18 20:00 Nasal Cannula 4.0 05/26/18 20:00 98.2 89 154/101 (118) 100 05/26/18 19:20 2.0 05/26/18 19:00 88 138/92 (107) 93 05/26/18 18:00 77 18 150/106 (121) 100 05/26/18 17:11 76 18 100 Facial 35 05/26/18 17:01 151/115 05/26/18 17:00 75 16 143/99 (114) 100 05/26/18 16:00 69 05/26/18 16:00 75 16 100 Facial 40 05/26/18 16:00 Bi-pap 05/26/18 16:00 98.3 77 18 151/115 (127) 100 Status: awake Condition: improving Lungs: rales Heart: HR/BP stable Abdomen: soft, non-tender Extremities: edema Micro: Microbiology Date/Time Source Procedure Growth Status 05/24/18 18:00 Foot Right Gram Stain - Final Resulted 05/24/18 18:00 Wound Culture - Preliminary Staphylococcus Species Yeast Species Gram Negative Josesito Diphtheroids Resulted Accucheck: 104 Critical Care - Subjective ROS Limited/Unobtainable: Yes Interval Events: BiPAP overnight and VBG shows improvement. Pulled out PICC line which was infected anyway. Seems calmer and more cooperative but in restraints Condition: improving EKG Rhythm: Sinus Rhythm FI02: 35 Sputum Amount: None I&O: Intake and Output 05/26/18 05/27/18 19:00 07:00 Intake Total 865 ml 705 ml Output Total 825 ml 1350 ml Balance 40 ml -645 ml Intake Oral 480 ml 320 ml IV Total 385 ml 385 ml Output Urine Total 825 ml 1350 ml # Bowel Movements 4 Hemal Ritchie MD May 27, 2018 15:18
--- NOTE | 2018-05-27 18:14 | Infectious Diseases Prog Note ---
Assessment/Plan Problems: (1) VAP (ventilator-associated pneumonia) Assessment & Plan: with staphylococcus and gram negative rods, already on vancomycin and aztreonam pending final culture . recommend aspiration precaution (2) Bacteremia due to Enterococcus Assessment & Plan: due to enterococcus faecalis , recommend to remove PICC line as soon as we establish peripheral . will treat with vancomycin renally dosed as per pharmacy for two weeks starting from the removal date of PICC line . (3) Bilateral lower leg cellulitis Assessment & Plan: wound culture grew klibsella oxytoca, and Sphingomonas paucimobilis , continue vancomycin and aztreonam empirically with local wounds care . patient has refused MRI and CT of the legs to rule out deep abscess or osteomyelitis. await on bone scan of both legs once clinically stable . D/W acid patroller (4) Nonhealing ulcer of left lower extremity Assessment & Plan: wound culture grew klebsiella oxytoca and Sphingomonas paucimobilis, now on aztreonam and vancomycin , continue local wound care and dressings change as per wound care service as per plastic surgery recommendations (5) CKD (chronic kidney disease) Assessment & Plan: avoid nephrotoxics , renally dosed antibiotics as per pharmacy (6) DM (diabetes mellitus) Assessment & Plan: recommend tight glycemic control to keep blood glucose between 100-140 (7) Acute encephalopathy Assessment & Plan: suspect metabolic with high ammonia level, continue lactulose , consult neurology if no improvement (8) Acute hypoxemic respiratory failure Assessment & Plan: due to the above , self extubated , now on high flow oxygen , pulmonary is following, Subjective Constitutional: Reports: no symptoms HEENT: Reports: no symptoms Respiratory: Reports: productive cough Breasts: Reports: no symptoms Cardiovascular: Reports: no symptoms Gastrointestinal/Abdominal: Reports: no symptoms Genitourinary: Reports: no symptoms Neurologic: Reports: no symptoms Psychiatric: Reports: no symptoms Skin: Reports: no symptoms Endocrine: Reports: no symptoms Allergies: Coded Allergies: ASPIRIN (Verified Allergy, Intermediate, Hives, 01/06/13) PENICILLINS (Verified Allergy, Intermediate, Hives, 01/06/13) Subjective she was up in bed, awake and alert, congested , afebrile, has good UOP Objective Vital Signs Last 24 Hour Vital Signs Date Time Temp Pulse Resp B/P (MAP) Pulse Ox O2 Delivery O2 Flow Rate FiO2 05/27/18 18:00 75 4 134/102 (113) 100 05/27/18 17:00 76 11 127/81 (96) 100 05/27/18 16:44 77 20 100 Facial 35 05/27/18 16:00 98.4 79 16 129/84 (99) 99 05/27/18 15:11 86 18 94 Facial 35 05/27/18 15:00 80 15 120/85 (97) 98 05/27/18 14:00 87 11 129/89 (102) 99 05/27/18 13:15 75 19 100 Facial 35 05/27/18 13:00 75 15 135/98 (110) 100 05/27/18 12:00 Nasal Cannula 4.0 05/27/18 12:00 74 05/27/18 12:00 98.0 75 12 119/96 (104) 05/27/18 11:12 76 18 97 Facial 35 05/27/18 11:00 76 10 121/96 (104) 100 05/27/18 10:32 85 124/95 05/27/18 10:00 79 3 124/95 (105) 100 05/27/18 09:41 88 17 97 Facial 35 05/27/18 09:00 98.2 77 11 130/100 (110) 97 05/27/18 08:26 130/100 05/27/18 08:25 130/100 05/27/18 08:00 98.2 77 11 130/100 (110) 97 05/27/18 08:00 84 05/27/18 08:00 Nasal Cannula 4.0 05/27/18 07:26 75 17 97 Facial 35 05/27/18 06:53 85 3 125/81 (96) 99 05/27/18 06:00 79 8 139/109 (119) 99 05/27/18 06:00 98.6 83 14 123/88 (100) 100 05/27/18 05:00 84 128/93 (105) 05/27/18 05:00 86 12 139/109 (119) 100 05/27/18 04:46 73 18 95 Facial 35 05/27/18 04:00 Nasal Cannula 4.0 05/27/18 04:00 91 25 149/107 (121) 05/27/18 04:00 83 14 128/93 (105) 100 05/27/18 04:00 87 05/27/18 04:00 87 05/27/18 03:00 89 13 149/107 (121) 89 05/27/18 03:00 88 16 149/107 (121) 98 05/27/18 02:14 88 17 136/79 (98) 97 05/27/18 02:00 89 15 136/71 (92) 97 05/27/18 02:00 86 18 91 05/27/18 01:14 89 24 96 3.0 32 05/27/18 01:00 89 16 156/90 (112) 96 05/27/18 01:00 89 16 152/106 (121) 96 05/27/18 00:19 88 152/106 (121) 97 05/27/18 00:15 32 05/27/18 00:00 77 97 05/27/18 00:00 Nasal Cannula 4.0 05/27/18 00:00 89 05/27/18 00:00 98.5 88 152/106 (121) 97 05/26/18 23:00 72 171/108 (129) 97 05/26/18 22:34 87 22 97 Facial 35 05/26/18 22:00 84 147/97 (114) 85 05/26/18 21:20 88 20 99 Facial 35 05/26/18 21:00 93 145/107 (120) 99 05/26/18 20:00 74 05/26/18 20:00 Nasal Cannula 4.0 05/26/18 20:00 98.2 89 154/101 (118) 100 05/26/18 19:20 2.0 05/26/18 19:00 88 138/92 (107) 93 Height (Feet): 5 Height (Inches): 3.00 Weight (Pounds): 325 General Appearance: WD/WN, no acute distress HEENT: normocephalic, atraumatic, anicteric, mucous membranes moist, PERRL Respiratory/Chest: chest wall non-tender, no respiratory distress, no accessory muscle use Cardiovascular: normal peripheral pulses, normal rate, regular rhythm, no gallop/murmur, no JVD Abdomen: normal bowel sounds, soft, non tender, no organomegaly, non distended , no mass, no scars Genitourinary: normal external genitalia Extremities: no cyanosis, no clubbing, other - left leg wounds Skin: no rash, no lesions, ulcers 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, alert, responsive Lymphatic: no neck adenopathy, no groin adenopathy Musculoskeletal: normal muscle bulk, no effusion Laboratory Tests Test 05/27/18 04:20 05/27/18 09:15 05/27/18 09:25 White Blood Count 10.2 K/UL (4.8-10.8) Red Blood Count 5.14 M/UL (4.20-5.40) Hemoglobin 12.7 G/DL (12.0-16.0) Hematocrit 44.5 % (37.0-47.0) Mean Corpuscular Volume 87 FL (80-99) Mean Corpuscular Hemoglobin 24.8 PG (27.0-31.0) L Mean Corpuscular Hemoglobin Concent 28.6 G/DL (32.0-36.0) L Red Cell Distribution Width 21.4 % (11.6-14.8) H Platelet Count 311 K/UL (150-450) Mean Platelet Volume 10.2 FL (6.5-10.1) H Neutrophils (%) (Auto) 80.0 % (45.0-75.0) H Lymphocytes (%) (Auto) 12.1 % (20.0-45.0) L Monocytes (%) (Auto) 4.9 % (1.0-10.0) Eosinophils (%) (Auto) 1.5 % (0.0-3.0) Basophils (%) (Auto) 1.6 % (0.0-2.0) Sodium Level 148 MMOL/L (136-145) H Potassium Level 4.0 MMOL/L (3.5-5.1) Chloride Level 113 MMOL/L (98-107) H Carbon Dioxide Level 23 MMOL/L (21-32) Anion Gap 12 mmol/L (5-15) Blood Urea Nitrogen 32 mg/dL (7-18) H Creatinine 1.3 MG/DL (0.55-1.30) Estimat Glomerular Filtration Rate 49.8 mL/min (>60) Glucose Level 96 MG/DL (74-106) Calcium Level 8.9 MG/DL (8.5-10.1) Vancomycin Level Trough 22.8 ug/mL (5.0-12.0) H Venous Blood pH Pending Venous Blood Partial Pressure CO2 Pending Venous Blood Partial Pressure O2 Pending Venous Blood HCO3 Pending Venous Blood Total Carbon Dioxide Pending Venous Bld O2 Saturation (Measured) Venous Blood Oxygen Saturation Pending Venous Blood Base Excess Pending Methemoglobin Pending Sodium (Blood Gas) Pending Current Medications Medications (Trade) Dose Ordered Sig/Toya Route PRN Reason Start Time Stop Time Status Last Admin Dose Admin Allopurinol (Allopurinol) 300 mg DAILY NG 05/19/18 13:00 06/18/18 12:59 05/27/18 08:26 Amlodipine Besylate (Norvasc) 2.5 mg DAILY ORAL 05/27/18 10:06 06/26/18 10:05 05/27/18 10:32 Ascorbic Acid (Vitamin C) 500 mg TWICE A DAY NG 05/18/18 09:00 06/15/18 17:59 05/27/18 08:27 Atorvastatin Calcium (Lipitor) 20 mg BEDTIME ORAL 05/17/18 21:00 06/13/18 20:59 05/26/18 20:58 Aztreonam 2 gm/ Dextrose 110 ml @ 220 mls/hr Q8HR@0000,0800,1600 IVPB 05/17/18 16:00 05/29/18 15:59 05/27/18 17:14 Chlorhexidine Gluconate (Romy-Hex 2%) 1 applic DAILY@2000 TOPIC 05/14/18 20:00 06/13/18 19:59 05/26/18 20:58 Clopidogrel Bisulfate (Plavix) 75 mg DAILY NG 05/18/18 09:00 06/14/18 08:59 05/27/18 08:25 Dextrose (Dextrose 50%) 25 ml Q30M PRN IV Hypoglycemia 05/13/18 21:00 06/11/18 16:59 Dextrose (Dextrose 50%) 50 ml Q30M PRN IV Hypoglycemia 05/13/18 21:00 06/11/18 16:59 Dopamine HCl/ Dextrose 250 ml @ 0 mls/hr Q24H IV 05/15/18 19:00 06/14/18 18:59 05/16/18 18:05 Fentanyl Citrate 1000 mcg/Sodium Chloride 100 ml @ 0 mls/hr Q24H IV 05/21/18 13:00 05/28/18 12:59 05/22/18 18:09 Furosemide (Lasix) 20 mg Q12HR IV 05/26/18 21:00 06/23/18 16:03 05/27/18 08:27 Insulin Aspart (NovoLOG) Q6HR SUBQ 05/18/18 13:00 06/11/18 12:59 05/26/18 23:27 Lisinopril (Zestril) 5 mg DAILY ORAL 05/26/18 15:45 06/25/18 15:44 05/27/18 08:26 Multivitamins (Multivitamins) 1 tab DAILY ORAL 05/18/18 09:00 06/16/18 08:59 05/27/18 08:26 Nitroglycerin (Ntg) 1 patch Q24H TDERMAL 05/15/18 09:00 06/14/18 08:59 05/27/18 08:25 Pantoprazole (Protonix) 40 mg DAILY IVP 05/26/18 09:00 06/13/18 20:59 05/27/18 08:25 Povidone Iodine (Betadine Gretchen) 1 applic BID TOPIC 05/16/18 09:00 06/15/18 08:59 05/27/18 18:07 Sodium Chloride 500 ml @ 999 mls/hr Q31M PRN IV For hypotension 05/14/18 01:30 06/13/18 01:29 05/21/18 19:22 Vancomycin HCl (Vanco rx to dose) 1 ea DAILY PRN MISC Per rx protocol 05/23/18 17:30 06/22/18 17:29 Vancomycin/Sodium Chloride 250 ml @ 166.667 mls/hr Q12H IVPB 05/28/18 01:00 06/02/18 00:59 Juice Wilkerson M.D. May 27, 2018 18:14
[2018-05-27] MEDS: DOPamine 400mg/250ml 250 ML IV SCH (18:36)
--- NOTE | 2018-05-27 19:31 | NUR ---
HAND-OFF: Report given to Waylon Roca.
--- NOTE | 2018-05-27 19:35 | NUR ---
NURSE NOTES: Received report from Reyna VALDES. Patient's resting in bed, alert, oriented x3, confused at times. No c/o pain. Currently on Bipap 18/6 40%. Morbidly obese. Abdomen firm, round. Anaya intact and patent, light yung color urine. Right AC 22G and Left FA 20G patent, saline locks. Bilateral soft wrist restraints noted for safety. on berimax bed. lower legs dressing clean and intact. hob>45. bed in low position, call light within reach. Will continue to monitor.
--- NOTE | 2018-05-27 20:44 | Cardiology Progress Note ---
Assessment/Plan Assessment/Plan LATE ENTRY NOTE DATE OF SERVICE: 05/25/2018 Patient seen: 23:05 1. Acute hypoxic hypercarbic respiratory failure, extubated, now on facial mask oxygen. 2D echocardiography shows normal LV systolic function with a normal left atrial pressure, however e/o right heart failure. 2. Right heart failure, pre-load sensitive, avoid aggressive diuretic use, evidence of RA and RV dilatation and severe RV systolic dysfunction, associated pulmonary HTN, ? type. 3. Paroxysmal atrial fibrillation, currently sinus rhythm. 4. Hypotension likely due to RV failure, resolved, off midodrine. 5. Slight elevation of troponin I level in this patient most likely due to RV strain/failure. Subjective Subjective Sinus rhythm at rate of 81. On facial mask oxygen. Objective Last 24 Hour Vital Signs Date Time Temp Pulse Resp B/P (MAP) Pulse Ox O2 Delivery O2 Flow Rate FiO2 05/27/18 20:31 81 19 99 05/27/18 20:16 87 16 100 Facial 35 05/27/18 19:00 77 17 125/84 (98) 98 05/27/18 18:36 134/102 05/27/18 18:00 75 4 134/102 (113) 100 05/27/18 17:00 76 11 127/81 (96) 100 05/27/18 16:44 77 20 100 Facial 35 05/27/18 16:00 76 05/27/18 16:00 98.4 79 16 129/84 (99) 99 05/27/18 16:00 Nasal Cannula 4.0 05/27/18 15:11 86 18 94 Facial 35 05/27/18 15:00 80 15 120/85 (97) 98 05/27/18 14:00 87 11 129/89 (102) 99 05/27/18 13:15 75 19 100 Facial 35 05/27/18 13:00 75 15 135/98 (110) 100 05/27/18 12:00 Nasal Cannula 4.0 05/27/18 12:00 74 05/27/18 12:00 98.0 75 12 119/96 (104) 05/27/18 11:12 76 18 97 Facial 35 05/27/18 11:00 76 10 121/96 (104) 100 05/27/18 10:32 85 124/95 05/27/18 10:00 79 3 124/95 (105) 100 05/27/18 09:41 88 17 97 Facial 35 05/27/18 09:00 98.2 77 11 130/100 (110) 97 05/27/18 08:26 130/100 05/27/18 08:25 130/100 05/27/18 08:00 98.2 77 11 130/100 (110) 97 05/27/18 08:00 84 05/27/18 08:00 Nasal Cannula 4.0 05/27/18 07:26 75 17 97 Facial 35 05/27/18 06:53 85 3 125/81 (96) 99 05/27/18 06:00 79 8 139/109 (119) 99 05/27/18 06:00 98.6 83 14 123/88 (100) 100 05/27/18 05:00 84 128/93 (105) 05/27/18 05:00 86 12 139/109 (119) 100 05/27/18 04:46 73 18 95 Facial 35 05/27/18 04:00 Nasal Cannula 4.0 05/27/18 04:00 91 25 149/107 (121) 05/27/18 04:00 83 14 128/93 (105) 100 05/27/18 04:00 87 05/27/18 04:00 87 05/27/18 03:00 89 13 149/107 (121) 89 05/27/18 03:00 88 16 149/107 (121) 98 05/27/18 02:14 88 17 136/79 (98) 97 05/27/18 02:00 89 15 136/71 (92) 97 05/27/18 02:00 86 18 91 05/27/18 01:14 89 24 96 3.0 32 05/27/18 01:00 89 16 156/90 (112) 96 05/27/18 01:00 89 16 152/106 (121) 96 05/27/18 00:19 88 152/106 (121) 97 05/27/18 00:15 32 05/27/18 00:00 77 97 05/27/18 00:00 Nasal Cannula 4.0 05/27/18 00:00 89 05/27/18 00:00 98.5 88 152/106 (121) 97 05/26/18 23:00 72 171/108 (129) 97 05/26/18 22:34 87 22 97 Facial 35 05/26/18 22:00 84 147/97 (114) 85 05/26/18 21:20 88 20 99 Facial 35 05/26/18 21:00 93 145/107 (120) 99 Intake and Output 05/26/18 05/27/18 19:00 07:00 Intake Total 865 ml 705 ml Output Total 825 ml 1350 ml Balance 40 ml -645 ml Intake Oral 480 ml 320 ml IV Total 385 ml 385 ml Output Urine Total 825 ml 1350 ml # Bowel Movements 4 2D Echo: LVEF 55%, D-shaped septum due to RV pressure overload, Massive RA/RV size. Laboratory Tests Test 05/27/18 04:20 05/27/18 09:15 05/27/18 09:25 White Blood Count 10.2 K/UL (4.8-10.8) Red Blood Count 5.14 M/UL (4.20-5.40) Hemoglobin 12.7 G/DL (12.0-16.0) Hematocrit 44.5 % (37.0-47.0) Mean Corpuscular Volume 87 FL (80-99) Mean Corpuscular Hemoglobin 24.8 PG (27.0-31.0) L Mean Corpuscular Hemoglobin Concent 28.6 G/DL (32.0-36.0) L Red Cell Distribution Width 21.4 % (11.6-14.8) H Platelet Count 311 K/UL (150-450) Mean Platelet Volume 10.2 FL (6.5-10.1) H Neutrophils (%) (Auto) 80.0 % (45.0-75.0) H Lymphocytes (%) (Auto) 12.1 % (20.0-45.0) L Monocytes (%) (Auto) 4.9 % (1.0-10.0) Eosinophils (%) (Auto) 1.5 % (0.0-3.0) Basophils (%) (Auto) 1.6 % (0.0-2.0) Sodium Level 148 MMOL/L (136-145) H Potassium Level 4.0 MMOL/L (3.5-5.1) Chloride Level 113 MMOL/L (98-107) H Carbon Dioxide Level 23 MMOL/L (21-32) Anion Gap 12 mmol/L (5-15) Blood Urea Nitrogen 32 mg/dL (7-18) H Creatinine 1.3 MG/DL (0.55-1.30) Estimat Glomerular Filtration Rate 49.8 mL/min (>60) Glucose Level 96 MG/DL (74-106) Calcium Level 8.9 MG/DL (8.5-10.1) Vancomycin Level Trough 22.8 ug/mL (5.0-12.0) H Venous Blood pH Pending Venous Blood Partial Pressure CO2 Pending Venous Blood Partial Pressure O2 Pending Venous Blood HCO3 Pending Venous Blood Total Carbon Dioxide Pending Venous Bld O2 Saturation (Measured) Venous Blood Oxygen Saturation Pending Venous Blood Base Excess Pending Methemoglobin Pending Sodium (Blood Gas) Pending Objective HEENT: Atraumatic and normocephalic. Anicteric. Pupils are equal, round, and reactive to light and accommodation. Extraocular muscles intact. NECK: JVP ~20 cm, No carotid bruit. Carotid upstroke is 2+ bilaterally. CVS: Normal S1 and S2. Regular rate and rhythm. RV heave, No murmurs, gallops , or rubs. LUNGS: Diminished breath sounds in both lungs with rhonchi bilaterally. ABDOMEN: Soft, nontender, and nondistended. No hepatosplenomegaly. Positive bowel sounds. EXTREMITIES: No evidence of edema, clubbing, or cyanosis. There is venous stasis of lower extremities with associated ulceration. Justice Erickson MD May 27, 2018 20:44
[2018-05-27] MEDS: Atorvastatin 20mg tab ORAL SCH (21:24)
[2018-05-27] MEDS: Dyna-Hex 2% Top Sol 2oz TOPIC SCH (21:24)
--- NOTE | 2018-05-27 22:00 | NUR ---
NURSE NOTES: Pt's resting in bed, in no acute distress, asleep with eyes closed. VS stable Will continue to monitor.
[2018-05-28] VITALS (24 sets, daily range): BP systolic 109–150; BP diastolic 49–109
--- NOTE | 2018-05-28 | NUR ---
NURSE NOTES: Pt's resting in bed, in no acute distress. VS stable. Will continue to monitor.
[2018-05-28] MEDS: AZTREONAM IVPB SCH ×6 (00:25→20:00)
[2018-05-28] MEDS: [UNRECOGNIZED DRUG - OTHER] IVPB SCH ×6 (00:25→20:00)
[2018-05-28] MEDS: Vancomycin 750mg/NS 250ml IVPB SCH ×2 (01:47→16:00)
--- NOTE | 2018-05-28 02:00 | NUR ---
NURSE NOTES: Pt's resting in bed, in no acute distress. VS stable. Will continue to monitor
--- NOTE | 2018-05-28 04:00 | NUR ---
NURSE NOTES: Pt's resting in bed, in no acute distress. VS stable. Will continue to monitor
[2018-05-28 05:50] LABS: BASOPHILS % (AUTO) 1.5 % (0.0-2.0); EOSINOPHILS % (AUTO) 1.7 % (0.0-3.0); LYMPHOCYTES % (AUTO) 12.2 % (20.0-45.0); MEAN CORPUSCULAR VOLUME 87 FL (80-99); MONOCYTES % (AUTO) 4.1 % (1.0-10.0); NEUTROPHILS % (AUTO) 80.5 % (45.0-75.0); PLATELET COUNT 308 K/UL (150-450); RED BLOOD COUNT 5.18 M/UL (4.20-5.40); RED CELL DISTRIBUTION WIDTH 21.7 % (11.6-14.8); WHITE BLOOD COUNT 11.3 K/UL (4.8-10.8)
[2018-05-28 05:58] LABS: INR 1.5 (0.9-1.1)
[2018-05-28] MEDS: NovoLOG Insulin Flexpen SUBQ SCH ×4 (06:00→18:00)
--- NOTE | 2018-05-28 06:00 | NUR ---
NURSE NOTES: Pt's resting in bed, in no acute distress. VS stable. Will continue to monitor.
[2018-05-28 06:24] LABS: ALANINE AMINOTRANSFERASE 11 U/L (12-78); ALBUMIN 2.4 G/DL (3.4-5.0); ALBUMIN/GLOBULIN RATIO 0.5 (1.0-2.7); ALKALINE PHOSPHATASE 253 U/L (46-116); ANION GAP 9 mmol/L (5-15); ASPARTATE AMINO TRANSFERASE 29 U/L (15-37); BILIRUBIN,TOTAL 1.4 MG/DL (0.2-1.0); BLOOD UREA NITROGEN 30 mg/dL (7-18); CALCIUM 9.4 MG/DL (8.5-10.1); CARBON DIOXIDE 26 MMOL/L (21-32); CHLORIDE 112 MMOL/L (98-107); CREATININE 1.2 MG/DL (0.55-1.30); POTASSIUM 3.6 MMOL/L (3.5-5.1); SODIUM 147 MMOL/L (136-145)
[2018-05-28 07:02] LABS: BILIRUBIN,DIRECT 0.9 MG/DL (0.0-0.3)
--- NOTE | 2018-05-28 07:27 | NUR ---
RESPIRATORY NOTE: pt awake, alert, on the phone with no resp distress. pt on 2L NC with spo2 of 100%. no redness or skin breakdown around facial area. family at bedside. bilateral clear/diminished b/s. will cont to monitor
--- NOTE | 2018-05-28 07:30 | NUR ---
HAND-OFF: Report given to LUCIO Aragon.
--- NOTE | 2018-05-28 07:35 | NUR ---
NURSE NOTES: Report received from Waylon Jones RN.Pt awake lying in bed talking with family member her son,appears anxious,with bilat wrist restraints in place,no resp distress noted,no signs of pain presented,SR on the monitor,Anaya cath draining yellow urine,IV site to LFA intact ,skin warm and dry,obese, pt on a big boy bed,SR up x2 HOB elevated,bed lock in lowest position.
--- NOTE | 2018-05-28 08:00 | NUR ---
NURSE NOTES: Pt ate with appetite,ate 100% of breakfast,son at bedside,assisting pt.
[2018-05-28] MEDS: Pantoprazole Inj IVP SCH (08:28)
[2018-05-28] MEDS: Ascorbic Acid 500mg tab NG SCH ×2 (08:28→20:00)
[2018-05-28] MEDS: Nitroglycerin Patch 0.4mg TDERMAL SCH (08:30)
[2018-05-28] MEDS: Lisinopril 2.5mg tab ORAL SCH (08:31)
[2018-05-28] MEDS: Betadine 4oz Bottle TOPIC SCH ×2 (08:32→21:31)
--- NOTE | 2018-05-28 09:11 | Cardiology Report ---
APPROVED REPORT EXAM: Two-dimensional and M-mode echocardiogram with Doppler and color Doppler. INDICATION EJECTION FRACTION M-Mode DIMENSIONS IVSd1.6 (0.7-1.1cm)Left Atrium (MM)3.1 (1.6-4.0cm) LVDd2.7 (3.5-5.6cm)Aortic Root3.1 (2.0-3.7cm) PWd1.3 (0.7-1.1cm)Aortic Cusp Exc.2.0 (1.5-2.0cm) IVSs1.7 cm LVDs2.0 (2.5-4.0cm) PWs1.4 cm Technically difficult study due to pt's body habitus . Normal left ventricular chamber size, systolic function and wall motion to extent visualized. Left ventricular ejection fraction estimated to be 55-60%. Moderate left ventricular hypertrophy by 2-D. No evidence of pericardial fat or effusion. Severe right heart enlargement. Diastolic flattening of LV suggested of RV overload. Focal aortic valve sclerosis with normal cusp excursion. Mildly thickened mitral valve leaflets with normal excursion. Moderately mitral annulus and aortic root calcification. Normal pulmonic valve structure. Normal tricuspid valve structure. IVC dilated at 3.9cm without physiologic collapse suggestive of increased RA pressure,RA pressure estimated 20mmhg. A color flow and spectral Doppler study was performed and revealed: No aortic insufficiency . Trace mitral regurgitation. Mitral diastolic velocities suggest reduced left ventricular relaxation c/w mild LV diastolic dysfunction (Grade I ) Severe tricuspid regurgitation. Tricuspid systolic velocities suggests peak right ventricular systolic pressure of 45mmHg, consistent with moderate pulmonary hypertension . Mild pulmonic regurgitation present.
--- NOTE | 2018-05-28 09:28 | NUR ---
VBG ORDER: RESULTS: pH 7.284 pCO2 52.5 pO2 54.7 HCO3- 24.3 BE -3.0 sO2 86.8
--- NOTE | 2018-05-28 11:10 | NUR ---
HAND-OFF: Report given to Isabela Ambrose RN.Pt resting quietly in bed watching TV at this time.
--- NOTE | 2018-05-28 11:20 | NUR ---
NURSE NOTES: Patient received from Margo Sherwood RN. Patient observed to be awake, alert and oriented however at times is very confused. Patient is observed to be talking to herself or to the wall. Patient opens eyes spontaneously, follows commands intermittently, and does cooperate at times as well. Patient is being monitored on the combat engineer VS 150/67, HR 92, RR 18, SPO2 97%. Patient is on 3L NC. Upon auscultation has slight rhonchi with diminished lung sounds at the bases. Patient has a nonproductive cough. Patient just had a BM will call for assistance to clean patient. Patient has hyperactive bowel sounds in all four quadrants. Patient is on a cardiac diet soft mechanical chew. Patient feeds herself. Patient has a LFA 20G that is patent and asymptomatic. Patient is impulsive but at the moment cooperative. Patient has BL soft wrist restraints because patient self extubated, pulled her PICC line and pulls off her lines, etc. Will monitor for appropriateness of restraints. Pulses are palpable and skin is intact. Safety measures are in place with bed locked in the lowest position, call light within reach and HOB elevated. Will continue to monitor and follow plan of care.
--- NOTE | 2018-05-28 12:16 | GI Progress Note ---
Assessment/Plan Problems: (1) DM (diabetes mellitus) ICD Codes: E11.9 - DM (diabetes mellitus) SNOMED: 45195779 (2) Intractable abdominal pain ICD Codes: R10.9 - Unspecified abdominal pain SNOMED: 90618055 (3) Elevated transaminase level ICD Codes: R74.0 - Nonspecific elevation of levels of transaminase and lactic acid dehydrogenase [LDH] SNOMED: 523562250 (4) Abdominal distension ICD Codes: R14.0 - Abdominal distension (gaseous) SNOMED: 71341493 (5) Liver disease ICD Codes: K76.9 - Liver disease, unspecified SNOMED: 354873641 (6) Acute encephalopathy ICD Codes: G93.40 - Encephalopathy, unspecified SNOMED: 43203138, 930351521 Status: progressing Status Narrative Discussed with Dr. Paul. Assessment/Plan OB stool negative x2 stable H&H generalized anasarca hepatitis panel negative abdominal US reviewed >> - Ascites - Borderline hepatomegaly - Thick-walled gallbladder, likely in part artifact of nondistention, and in part due to hemodynamic factors causing the ascites. No definite gallstones. Acute cholecystitis not completely excludable, due to the wall thickening, and hepatobiliary scan should be considered if there is high clinical suspicion for such. - Negative for dilated ducts - To and fro flow within the main portal vein, could indicate portal hypertension consider HIDA and paracentesis when respiratory status stabilizes on cardiac diet cont lactulose prn transfusions rectal tube bowel regime ppi fu labs will consider endoscopy pending work up, but will require cardiac clearance given elevated troponin levels The patient was seen and examined at bedside and all new and available data was reviewed in the patients chart. I agree with the above findings, impression and plan. (Patient seen earlier today. Signature stamp does not reflect patient encounter time.). - Robert Paul MD Subjective Subjective denies abdominal pain tolerating diet Objective Last 24 Hour Vital Signs Date Time Temp Pulse Resp B/P (MAP) Pulse Ox O2 Delivery O2 Flow Rate FiO2 05/28/18 10:00 05/28/18 09:00 86 18 109/60 (76) 95 05/28/18 08:31 87 114/49 05/28/18 08:31 114/49 05/28/18 08:30 114/49 05/28/18 08:00 88 17 115/49 (71) 99 2/1/19 08:00 106 05/28/18 08:00 2.0 05/28/18 08:00 Nasal Cannula 4.0 05/28/18 07:26 77 20 100 05/28/18 07:00 75 18 134/98 (110) 100 05/28/18 06:00 98.4 78 17 138/95 (109) 100 05/28/18 05:00 79 18 139/90 (106) 100 05/28/18 04:00 75 19 124/88 (100) 100 05/28/18 04:00 2.0 05/28/18 04:00 78 05/28/18 04:00 Nasal Cannula 4.0 05/28/18 03:00 76 17 130/92 (105) 95 05/28/18 02:00 74 4 113/83 (93) 94 05/28/18 01:00 98.5 80 14 110/89 (96) 95 05/28/18 00:46 86 16 97 Facial 35 05/28/18 00:08 77 16 121/72 (88) 98 05/28/18 00:00 86 16 120/89 (99) 97 05/28/18 00:00 40 05/28/18 00:00 75 05/28/18 00:00 Nasal Cannula 4.0 05/27/18 23:30 86 17 98 Facial 35 05/27/18 23:00 80 16 133/89 (104) 96 05/27/18 22:00 82 14 95 05/27/18 21:00 79 11 124/83 (97) 99 05/27/18 20:31 81 19 99 05/27/18 20:16 87 16 100 Facial 35 05/27/18 20:00 98.4 77 17 122/86 (98) 100 05/27/18 20:00 Nasal Cannula 4.0 05/27/18 20:00 80 05/27/18 20:00 40 05/27/18 19:00 77 17 125/84 (98) 98 05/27/18 18:36 134/102 05/27/18 18:00 75 4 134/102 (113) 100 05/27/18 17:00 76 11 127/81 (96) 100 05/27/18 16:44 77 20 100 Facial 35 05/27/18 16:00 76 05/27/18 16:00 98.4 79 16 129/84 (99) 99 05/27/18 16:00 Nasal Cannula 4.0 05/27/18 15:11 86 18 94 Facial 35 05/27/18 15:00 80 15 120/85 (97) 98 05/27/18 14:00 87 11 129/89 (102) 99 05/27/18 13:15 75 19 100 Facial 35 05/27/18 13:00 75 15 135/98 (110) 100 Intake and Output 05/27/18 05/28/18 19:00 07:00 Intake Total 220 ml 420 ml Output Total 600 ml 600 ml Balance -380 ml -180 ml Intake Oral 60 ml IV Total 220 ml 360 ml Output Urine Total 600 ml 600 ml # Bowel Movements 6 Laboratory Tests Test 05/28/18 05:08 05/28/18 09:20 White Blood Count 11.3 K/UL (4.8-10.8) H Red Blood Count 5.18 M/UL (4.20-5.40) Hemoglobin 13.0 G/DL (12.0-16.0) Hematocrit 45.0 % (37.0-47.0) Mean Corpuscular Volume 87 FL (80-99) Mean Corpuscular Hemoglobin 25.0 PG (27.0-31.0) L Mean Corpuscular Hemoglobin Concent 28.8 G/DL (32.0-36.0) L Red Cell Distribution Width 21.7 % (11.6-14.8) H Platelet Count 308 K/UL (150-450) Mean Platelet Volume 9.0 FL (6.5-10.1) Neutrophils (%) (Auto) 80.5 % (45.0-75.0) H Lymphocytes (%) (Auto) 12.2 % (20.0-45.0) L Monocytes (%) (Auto) 4.1 % (1.0-10.0) Eosinophils (%) (Auto) 1.7 % (0.0-3.0) Basophils (%) (Auto) 1.5 % (0.0-2.0) Prothrombin Time 15.7 SEC (9.30-11.50) H Prothromb Time International Ratio 1.5 (0.9-1.1) H Activated Partial Thromboplast Time 30 SEC (23-33) Sodium Level 147 MMOL/L (136-145) H Potassium Level 3.6 MMOL/L (3.5-5.1) Chloride Level 112 MMOL/L (98-107) H Carbon Dioxide Level 26 MMOL/L (21-32) Anion Gap 9 mmol/L (5-15) Blood Urea Nitrogen 30 mg/dL (7-18) H Creatinine 1.2 MG/DL (0.55-1.30) Estimat Glomerular Filtration Rate 54.7 mL/min (>60) Glucose Level 81 MG/DL (74-106) Calcium Level 9.4 MG/DL (8.5-10.1) Phosphorus Level 3.0 MG/DL (2.5-4.9) Magnesium Level 1.8 MG/DL (1.8-2.4) Total Bilirubin 1.4 MG/DL (0.2-1.0) H Direct Bilirubin 0.9 MG/DL (0.0-0.3) H Aspartate Amino Transf (AST/SGOT) 29 U/L (15-37) Alanine Aminotransferase (ALT/SGPT) 11 U/L (12-78) L Alkaline Phosphatase 253 U/L (46-116) H Total Protein 7.0 G/DL (6.4-8.2) Albumin 2.4 G/DL (3.4-5.0) L Globulin 4.6 g/dL Albumin/Globulin Ratio 0.5 (1.0-2.7) L Venous Blood pH Pending Venous Blood Partial Pressure CO2 Pending Venous Blood Partial Pressure O2 Pending Venous Blood HCO3 Pending Venous Blood Total Carbon Dioxide Pending Venous Bld O2 Saturation (Measured) 52.5 Venous Blood Oxygen Saturation Pending Venous Blood Base Excess Pending Methemoglobin 0.5 Sodium (Blood Gas) Pending Height (Feet): 5 Height (Inches): 3.00 Weight (Pounds): 325 General Appearance: WD/WN, no apparent distress, alert Cardiovascular: normal rate Respiratory/Chest: normal breath sounds, no respiratory distress Abdominal Exam: normal bowel sounds, non tender, soft Extremities: non-tender Otilio Cohen NP May 28, 2018 12:16
--- NOTE | 2018-05-28 12:40 | NUR ---
NURSE NOTES: Patient was cleaned, repositioned and gown/linens changed with the assistance of three staff. Patient tolerated the movement well, VSS and patient is not in any acute distress. Patient's restraints were temporarily removed however, patient began pulling at her IV stand and her IV access. Restraints were reapplied for patient safety. Will continue to monitor.
--- NOTE | 2018-05-28 13:02 | General Progress Note ---
Assessment/Plan Assessment/Plan S, O: status post self-Extubation, PICC line in place, patient awake, following commands. limited exam PHYSICAL EXAMINATION: HEAD AND NECK: Atraumatic and normocephalic. CHEST: Diffuse bronchial breathing sounds. Overall decreased breathing sounds. ABDOMEN: Grossly morbidly obese. Limited evaluation. MUSCULOSKELETAL: Positive for ulcers and wounds, more diffusely edematous about 2+, superficial wounds on both legs , dressed . NEUROLOGIC: The patient is awake , follow commands . limited exam, Meds: Reviewed and reconciled. CXR dated 05/22/18 : reviewed ASSESSMENT: 1.Hypercapnic Vent Dependent Respiratory failure: S/P self-extubation 2. shock, ddx: septic vs cardiogenic : Resolved 3. CHF exacerbation, right sided, preserved EF 3. Acute/Chronic Renal F 4. Abnormal Trop: NSTEMI vs Leakage 3. UTI/lower extremity infection Hypertension. 4. Diabetes type 2, controlled with A1c of 6.3. 5. Pain management. 6. PAH 7. 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 HyperNatremia 6. GI and DVT prophylaxis. PLAN OF CARE: Guarded prognosis Off pressor, preserved BP Empirical abx, per ID Will Followup with pulmonary for post - Self- extubation care, C/w lasix, will titrate according to BP Subjective Allergies: Coded Allergies: ASPIRIN (Verified Allergy, Intermediate, Hives, 01/06/13) PENICILLINS (Verified Allergy, Intermediate, Hives, 01/06/13) Objective Last 24 Hour Vital Signs Date Time Temp Pulse Resp B/P (MAP) Pulse Ox O2 Delivery O2 Flow Rate FiO2 05/28/18 12:00 2.0 05/28/18 10:00 05/28/18 09:00 86 18 109/60 (76) 95 05/28/18 08:31 87 114/49 05/28/18 08:31 114/49 05/28/18 08:30 114/49 05/28/18 08:00 88 17 115/49 (71) 99 05/28/18 08:00 106 05/28/18 08:00 2.0 05/28/18 08:00 Nasal Cannula 4.0 05/28/18 07:26 77 20 100 05/28/18 07:00 75 18 134/98 (110) 100 05/28/18 06:00 98.4 78 17 138/95 (109) 100 05/28/18 05:00 79 18 139/90 (106) 100 05/28/18 04:00 75 19 124/88 (100) 100 05/28/18 04:00 2.0 05/28/18 04:00 78 05/28/18 04:00 Nasal Cannula 4.0 05/28/18 03:00 76 17 130/92 (105) 95 05/28/18 02:00 74 4 113/83 (93) 94 05/28/18 01:00 98.5 80 14 110/89 (96) 95 05/28/18 00:46 86 16 97 Facial 35 05/28/18 00:08 77 16 121/72 (88) 98 05/28/18 00:00 86 16 120/89 (99) 97 05/28/18 00:00 40 05/28/18 00:00 75 05/28/18 00:00 Nasal Cannula 4.0 05/27/18 23:30 86 17 98 Facial 35 05/27/18 23:00 80 16 133/89 (104) 96 05/27/18 22:00 82 14 95 05/27/18 21:00 79 11 124/83 (97) 99 05/27/18 20:31 81 19 99 05/27/18 20:16 87 16 100 Facial 35 05/27/18 20:00 98.4 77 17 122/86 (98) 100 05/27/18 20:00 Nasal Cannula 4.0 05/27/18 20:00 80 05/27/18 20:00 40 05/27/18 19:00 77 17 125/84 (98) 98 05/27/18 18:36 134/102 05/27/18 18:00 75 4 134/102 (113) 100 05/27/18 17:00 76 11 127/81 (96) 100 05/27/18 16:44 77 20 100 Facial 35 05/27/18 16:00 76 05/27/18 16:00 98.4 79 16 129/84 (99) 99 05/27/18 16:00 Nasal Cannula 4.0 05/27/18 15:11 86 18 94 Facial 35 05/27/18 15:00 80 15 120/85 (97) 98 05/27/18 14:00 87 11 129/89 (102) 99 05/27/18 13:15 75 19 100 Facial 35 Intake and Output 05/27/18 05/28/18 19:00 07:00 Intake Total 220 ml 420 ml Output Total 600 ml 600 ml Balance -380 ml -180 ml Intake Oral 60 ml IV Total 220 ml 360 ml Output Urine Total 600 ml 600 ml # Bowel Movements 6 Laboratory Tests 05/28/18 05:08: White Blood Count 11.3H, Red Blood Count 5.18, Hemoglobin 13.0, Hematocrit 45.0 , Mean Corpuscular Volume 87, Mean Corpuscular Hemoglobin 25.0L, Mean Corpuscular Hemoglobin Concent 28.8L, Red Cell Distribution Width 21.7H, Platelet Count 308, Mean Platelet Volume 9.0, Neutrophils (%) (Auto) 80.5H, Lymphocytes (%) (Auto) 12.2L, Monocytes (%) (Auto) 4.1, Eosinophils (%) (Auto) 1.7, Basophils (%) (Auto) 1.5, Prothrombin Time 15.7H, Prothromb Time International Ratio 1.5H, Activated Partial Thromboplast Time 30, Sodium Level 147H, Potassium Level 3.6, Chloride Level 112H, Carbon Dioxide Level 26, Anion Gap 9, Blood Urea Nitrogen 30H, Creatinine 1.2, Estimat Glomerular Filtration Rate 54.7, Glucose Level 81, Calcium Level 9.4, Phosphorus Level 3.0, Magnesium Level 1.8, Total Bilirubin 1.4H, Direct Bilirubin 0.9H, Aspartate Amino Transf ( AST/SGOT) 29, Alanine Aminotransferase (ALT/SGPT) 11L, Alkaline Phosphatase 253H , Total Protein 7.0, Albumin 2.4L, Globulin 4.6, Albumin/Globulin Ratio 0.5L 05/28/18 09:20: Venous Blood pH [Pending], Venous Blood Partial Pressure CO2 [Pending], Venous Blood Partial Pressure O2 [Pending], Venous Blood HCO3 [Pending], Venous Blood Total Carbon Dioxide [Pending], Venous Bld O2 Saturation (Measured) 52.5, Venous Blood Oxygen Saturation [Pending], Venous Blood Base Excess [Pending], Methemoglobin 0.5, Sodium (Blood Gas) [Pending] Height (Feet): 5 Height (Inches): 3.00 Weight (Pounds): 325 Rezvani,Mohammad MD May 28, 2018 13:02
--- NOTE | 2018-05-28 14:19 | Infectious Diseases Prog Note ---
Assessment/Plan Problems: (1) VAP (ventilator-associated pneumonia) Assessment & Plan: with coag negative staphylococcus and proteus mirabilis , already on vancomycin and aztreonam . recommend aspiration precaution (2) Bacteremia due to Enterococcus Assessment & Plan: due to enterococcus faecalis , PICC line was removed . continue vancomycin renally dosed as per pharmacy for two weeks. EOT 06/09/18 (3) Bilateral lower leg cellulitis Assessment & Plan: wound culture grew klibsella oxytoca, and Sphingomonas paucimobilis , continue vancomycin and aztreonam empirically with local wounds care . await on bone scan of both legs once clinically stable . (4) Nonhealing ulcer of left lower extremity Assessment & Plan: wound culture grew klebsiella oxytoca and Sphingomonas paucimobilis, now on aztreonam and vancomycin , continue local wound care and dressings change as per wound care service as per plastic surgery recommendations (5) CKD (chronic kidney disease) Assessment & Plan: avoid nephrotoxics , renally dosed antibiotics as per pharmacy (6) DM (diabetes mellitus) Assessment & Plan: recommend tight glycemic control to keep blood glucose between 100-140 (7) Acute encephalopathy Assessment & Plan: suspect metabolic with high ammonia level, continue lactulose , consult neurology if no improvement (8) Acute hypoxemic respiratory failure Assessment & Plan: due to the above , self extubated , now on NASAL CANULA , pulmonary is following, Subjective Constitutional: Reports: no symptoms HEENT: Reports: no symptoms Respiratory: Reports: no symptoms Breasts: Reports: no symptoms Cardiovascular: Reports: no symptoms Gastrointestinal/Abdominal: Reports: no symptoms Genitourinary: Reports: no symptoms Neurologic: Reports: no symptoms Psychiatric: Reports: no symptoms Skin: Reports: no symptoms Endocrine: Reports: no symptoms Hematologic: Reports: no symptoms Musculoskeletal: Reports: no symptoms Allergies: Coded Allergies: ASPIRIN (Verified Allergy, Intermediate, Hives, 01/06/13) PENICILLINS (Verified Allergy, Intermediate, Hives, 01/06/13) Subjective she was lying in bed, comfortable, awake and alert, afebrile, denied any fever or chills, has good UOP Objective Vital Signs Last 24 Hour Vital Signs Date Time Temp Pulse Resp B/P (MAP) Pulse Ox O2 Delivery O2 Flow Rate FiO2 05/28/18 13:04 79 97 05/28/18 12:00 Nasal Cannula 2.0 05/28/18 12:00 2.0 05/28/18 10:00 05/28/18 09:00 86 18 109/60 (76) 95 05/28/18 08:31 87 114/49 05/28/18 08:31 114/49 05/28/18 08:30 114/49 05/28/18 08:00 88 17 115/49 (71) 99 05/28/18 08:00 106 05/28/18 08:00 2.0 05/28/18 08:00 Nasal Cannula 4.0 05/28/18 07:26 77 20 100 05/28/18 07:00 75 18 134/98 (110) 100 05/28/18 06:00 98.4 78 17 138/95 (109) 100 05/28/18 05:00 79 18 139/90 (106) 100 05/28/18 04:00 75 19 124/88 (100) 100 05/28/18 04:00 2.0 05/28/18 04:00 78 05/28/18 04:00 Nasal Cannula 4.0 05/28/18 03:00 76 17 130/92 (105) 95 05/28/18 02:00 74 4 113/83 (93) 94 05/28/18 01:00 98.5 80 14 110/89 (96) 95 05/28/18 00:46 86 16 97 Facial 35 05/28/18 00:08 77 16 121/72 (88) 98 05/28/18 00:00 86 16 120/89 (99) 97 05/28/18 00:00 40 05/28/18 00:00 75 05/28/18 00:00 Nasal Cannula 4.0 05/27/18 23:30 86 17 98 Facial 35 05/27/18 23:00 80 16 133/89 (104) 96 05/27/18 22:00 82 14 95 05/27/18 21:00 79 11 124/83 (97) 99 05/27/18 20:31 81 19 99 05/27/18 20:16 87 16 100 Facial 35 05/27/18 20:00 98.4 77 17 122/86 (98) 100 05/27/18 20:00 Nasal Cannula 4.0 05/27/18 20:00 80 05/27/18 20:00 40 05/27/18 19:00 77 17 125/84 (98) 98 05/27/18 18:36 134/102 05/27/18 18:00 75 4 134/102 (113) 100 05/27/18 17:00 76 11 127/81 (96) 100 05/27/18 16:44 77 20 100 Facial 35 05/27/18 16:00 76 05/27/18 16:00 98.4 79 16 129/84 (99) 99 05/27/18 16:00 Nasal Cannula 4.0 05/27/18 15:11 86 18 94 Facial 35 05/27/18 15:00 80 15 120/85 (97) 98 Height (Feet): 5 Height (Inches): 3.00 Weight (Pounds): 325 General Appearance: WD/WN, no acute distress HEENT: normocephalic, atraumatic, anicteric, mucous membranes moist, PERRL Respiratory/Chest: chest wall non-tender, no respiratory distress, no accessory muscle use, decreased breath sounds, crackles/rales Cardiovascular: normal peripheral pulses, normal rate, regular rhythm, no gallop/murmur, no JVD Abdomen: normal bowel sounds, soft, non tender, no organomegaly, non distended , no mass, no scars Extremities: no cyanosis, no clubbing Skin: no rash, no lesions, no ulcers Neurologic/Psychiatric: alert, oriented x 3 Lymphatic: no neck adenopathy, no groin adenopathy Musculoskeletal: normal muscle bulk, no effusion Microbiology Date/Time Source Procedure Growth Status 05/27/18 07:15 Arm Left Catheter Tip Culture - Preliminary NO GROWTH Resulted Laboratory Tests Test 05/28/18 05:08 05/28/18 09:20 White Blood Count 11.3 K/UL (4.8-10.8) H Red Blood Count 5.18 M/UL (4.20-5.40) Hemoglobin 13.0 G/DL (12.0-16.0) Hematocrit 45.0 % (37.0-47.0) Mean Corpuscular Volume 87 FL (80-99) Mean Corpuscular Hemoglobin 25.0 PG (27.0-31.0) L Mean Corpuscular Hemoglobin Concent 28.8 G/DL (32.0-36.0) L Red Cell Distribution Width 21.7 % (11.6-14.8) H Platelet Count 308 K/UL (150-450) Mean Platelet Volume 9.0 FL (6.5-10.1) Neutrophils (%) (Auto) 80.5 % (45.0-75.0) H Lymphocytes (%) (Auto) 12.2 % (20.0-45.0) L Monocytes (%) (Auto) 4.1 % (1.0-10.0) Eosinophils (%) (Auto) 1.7 % (0.0-3.0) Basophils (%) (Auto) 1.5 % (0.0-2.0) Prothrombin Time 15.7 SEC (9.30-11.50) H Prothromb Time International Ratio 1.5 (0.9-1.1) H Activated Partial Thromboplast Time 30 SEC (23-33) Sodium Level 147 MMOL/L (136-145) H Potassium Level 3.6 MMOL/L (3.5-5.1) Chloride Level 112 MMOL/L (98-107) H Carbon Dioxide Level 26 MMOL/L (21-32) Anion Gap 9 mmol/L (5-15) Blood Urea Nitrogen 30 mg/dL (7-18) H Creatinine 1.2 MG/DL (0.55-1.30) Estimat Glomerular Filtration Rate 54.7 mL/min (>60) Glucose Level 81 MG/DL (74-106) Calcium Level 9.4 MG/DL (8.5-10.1) Phosphorus Level 3.0 MG/DL (2.5-4.9) Magnesium Level 1.8 MG/DL (1.8-2.4) Total Bilirubin 1.4 MG/DL (0.2-1.0) H Direct Bilirubin 0.9 MG/DL (0.0-0.3) H Aspartate Amino Transf (AST/SGOT) 29 U/L (15-37) Alanine Aminotransferase (ALT/SGPT) 11 U/L (12-78) L Alkaline Phosphatase 253 U/L (46-116) H Total Protein 7.0 G/DL (6.4-8.2) Albumin 2.4 G/DL (3.4-5.0) L Globulin 4.6 g/dL Albumin/Globulin Ratio 0.5 (1.0-2.7) L Venous Blood pH Pending Venous Blood Partial Pressure CO2 Pending Venous Blood Partial Pressure O2 Pending Venous Blood HCO3 Pending Venous Blood Total Carbon Dioxide Pending Venous Bld O2 Saturation (Measured) 52.5 Venous Blood Oxygen Saturation Pending Venous Blood Base Excess Pending Methemoglobin 0.5 Sodium (Blood Gas) Pending Current Medications Medications (Trade) Dose Ordered Sig/Toya Route PRN Reason Start Time Stop Time Status Last Admin Dose Admin Allopurinol (Allopurinol) 300 mg DAILY NG 05/19/18 13:00 06/18/18 12:59 05/28/18 08:29 Amlodipine Besylate (Norvasc) 2.5 mg DAILY ORAL 05/27/18 10:06 06/26/18 10:05 05/28/18 08:31 Ascorbic Acid (Vitamin C) 500 mg TWICE A DAY NG 05/18/18 09:00 06/15/18 17:59 05/28/18 08:28 Atorvastatin Calcium (Lipitor) 20 mg BEDTIME ORAL 05/17/18 21:00 06/13/18 20:59 05/27/18 21:24 Aztreonam 2 gm/ Dextrose 110 ml @ 220 mls/hr Q8HR@0000,0800,1600 IVPB 05/17/18 16:00 06/04/18 23:59 05/28/18 08:27 Chlorhexidine Gluconate (Romy-Hex 2%) 1 applic DAILY@2000 TOPIC 05/14/18 20:00 06/13/18 19:59 05/27/18 21:24 Clopidogrel Bisulfate (Plavix) 75 mg DAILY NG 05/18/18 09:00 06/14/18 08:59 05/28/18 08:29 Dextrose (Dextrose 50%) 25 ml Q30M PRN IV Hypoglycemia 05/13/18 21:00 06/11/18 16:59 Dextrose (Dextrose 50%) 50 ml Q30M PRN IV Hypoglycemia 05/13/18 21:00 06/11/18 16:59 Dopamine HCl/ Dextrose 250 ml @ 0 mls/hr Q24H IV 05/15/18 19:00 06/14/18 18:59 05/16/18 18:05 Furosemide (Lasix) 20 mg Q12HR IV 05/26/18 21:00 06/23/18 16:03 2/1/19 08:27 Insulin Aspart (NovoLOG) Q6HR SUBQ 05/18/18 13:00 06/11/18 12:59 05/27/18 18:22 Lisinopril (Zestril) 5 mg DAILY ORAL 05/26/18 15:45 06/25/18 15:44 05/28/18 08:31 Multivitamins (Multivitamins) 1 tab DAILY ORAL 05/18/18 09:00 06/16/18 08:59 05/28/18 08:28 Nitroglycerin (Ntg) 1 patch Q24H TDERMAL 05/15/18 09:00 06/14/18 08:59 05/28/18 08:30 Pantoprazole (Protonix) 40 mg DAILY IVP 05/26/18 09:00 06/13/18 20:59 05/28/18 08:28 Povidone Iodine (Betadine Gretchen) 1 applic BID TOPIC 05/16/18 09:00 06/15/18 08:59 05/28/18 08:32 Sodium Chloride 500 ml @ 999 mls/hr Q31M PRN IV For hypotension 05/14/18 01:30 06/13/18 01:29 05/21/18 19:22 Vancomycin HCl (Vanco rx to dose) 1 ea DAILY PRN MISC Per rx protocol 05/23/18 17:30 06/22/18 17:29 Vancomycin/Sodium Chloride 250 ml @ 166.667 mls/hr Q12H IVPB 05/28/18 01:00 06/02/18 00:59 05/28/18 01:47 Juice Wilkerson M.D. May 28, 2018 14:19
--- NOTE | 2018-05-28 15:30 | NUR ---
NURSE NOTES: Patient observed to be awake, alert and continues to be confused at times. Patient pulled out her IV so continues to need to be restrained. Patient gets very emotional and begins to cry very easily when educated on not pulling on lines or pulling at her IV pole that can potentially injure her. Patient gets very upset with the restraints. Patient opens eyes spontaneously, follows commands intermittently, and does cooperate at times as well. Patient is being monitored on the rn cardiac cath VSS. Patient is on 3L NC. Patient has a nonproductive cough. Patient had another BM and has been cleaned, repositioned with assistance. Patient is very impulsive. Patient has BL soft wrist with pulses palpable and skin that is intact. Safety measures are in place with bed locked in the lowest position, call light within reach and HOB elevated. Will continue to monitor and follow plan of care.
--- NOTE | 2018-05-28 16:01 | Pulmonolgy Critical Care Note ---
Critical Care - Asmt/Plan Assessment/Plan: Pulmonary Progress Note Assessment/Plan: 67 y/o female w/ DM, CKD, morbid obesity admitted with b/l LE cellulitis and altered mental status. Problem List: 1. Altered mental status 2. Acute hypercapnic respiratory failure -intubated 05/15 -self-extubated 05/24 3. Bilateral lower extremity cellulitis 4. RACHELLE on CKD 5. DM 6. Morbid obesity 7. Elevated ammonia level 8. RV failure 9. Acute diastolic Congestive heart failure 10. 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: continue to monitor HR/BP Renal: F/U I&O Infectious Disease: continue antibiotics Time Spent (Minutes): 40 - CC Notes Reviewed: deck molder, renal, ID Discussed with: nurses Critical Care - Objective Vital Signs Noted Status: awake Condition: improving Lungs: rales Heart: HR/BP stable Abdomen: soft, non-tender Extremities: edema Micro: Microbiology Date/Time Source Procedure Growth Status 05/24/18 18:00 Foot Right Gram Stain - Final Resulted 05/24/18 18:00 Wound Culture - Preliminary Staphylococcus Species Yeast Species Gram Negative Josesito Diphtheroids Resulted Accucheck: 104 Critical Care - Subjective ROS Limited/Unobtainable: Yes Interval Events: BiPAP overnight and VBG shows improvement. Pulled out PICC line which was infected anyway. Seems calmer and more cooperative but in restraints Condition: improving EKG Rhythm: Sinus Rhythm FI02: 35 Sputum Amount: None Critical Care - Objective Last 24 Hour Vital Signs Date Time Temp Pulse Resp B/P (MAP) Pulse Ox O2 Delivery O2 Flow Rate FiO2 05/28/18 14:00 76 20 133/90 (104) 95 05/28/18 13:04 79 97 05/28/18 13:00 8 18 136/97 (110) 97 05/28/18 12:00 Nasal Cannula 2.0 05/28/18 12:00 2.0 05/28/18 12:00 92 05/28/18 12:00 98.2 92 18 146/85 (105) 96 05/28/18 11:00 92 18 150/67 (94) 96 05/28/18 10:00 05/28/18 09:00 86 18 109/60 (76) 95 05/28/18 08:31 87 114/49 05/28/18 08:31 114/49 05/28/18 08:30 114/49 05/28/18 08:00 88 17 115/49 (71) 99 05/28/18 08:00 106 05/28/18 08:00 2.0 05/28/18 08:00 Nasal Cannula 4.0 05/28/18 07:26 77 20 100 05/28/18 07:00 75 18 134/98 (110) 100 05/28/18 06:00 98.4 78 17 138/95 (109) 100 05/28/18 05:00 79 18 139/90 (106) 100 05/28/18 04:00 75 19 124/88 (100) 100 05/28/18 04:00 2.0 05/28/18 04:00 78 05/28/18 04:00 Nasal Cannula 4.0 05/28/18 03:00 76 17 130/92 (105) 95 05/28/18 02:00 74 4 113/83 (93) 94 05/28/18 01:00 98.5 80 14 110/89 (96) 95 05/28/18 00:46 86 16 97 Facial 35 05/28/18 00:08 77 16 121/72 (88) 98 05/28/18 00:00 86 16 120/89 (99) 97 05/28/18 00:00 40 05/28/18 00:00 75 05/28/18 00:00 Nasal Cannula 4.0 05/27/18 23:30 86 17 98 Facial 35 05/27/18 23:00 80 16 133/89 (104) 96 05/27/18 22:00 82 14 95 05/27/18 21:00 79 11 124/83 (97) 99 05/27/18 20:31 81 19 99 05/27/18 20:16 87 16 100 Facial 35 05/27/18 20:00 98.4 77 17 122/86 (98) 100 05/27/18 20:00 Nasal Cannula 4.0 05/27/18 20:00 80 05/27/18 20:00 40 05/27/18 19:00 77 17 125/84 (98) 98 05/27/18 18:36 134/102 05/27/18 18:00 75 4 134/102 (113) 100 05/27/18 17:00 76 11 127/81 (96) 100 05/27/18 16:44 77 20 100 Facial 35 05/27/18 16:00 76 05/27/18 16:00 98.4 79 16 129/84 (99) 99 05/27/18 16:00 Nasal Cannula 4.0 Micro: Microbiology Date/Time Source Procedure Growth Status 05/27/18 07:15 Arm Left Catheter Tip Culture - Preliminary NO GROWTH Resulted Accucheck: 74 Critical Care - Subjective ROS Limited/Unobtainable: No FI02: 35 Sputum Amount: None I&O: Intake and Output 05/27/18 05/28/18 19:00 07:00 Intake Total 220 ml 420 ml Output Total 600 ml 600 ml Balance -380 ml -180 ml Intake Oral 60 ml IV Total 220 ml 360 ml Output Urine Total 600 ml 600 ml # Bowel Movements 6 Lawrence Wills MD May 28, 2018 16:01
--- NOTE | 2018-05-28 18:32 | Nephrology Progress Note ---
Assessment/Plan Problem List: (1) ARF (acute renal failure) (2) Cellulitis of both lower extremities (3) Venous stasis ulcers of both lower extremities (4) DM (diabetes mellitus) (5) CKD (chronic kidney disease) (6) Morbid (severe) obesity due to excess calories (7) Acute hypoxemic respiratory failure Assessment extubated on bipap as needed- Diabetic Nephropathy Cr lower acute renal failure super imposed on CKD Encephalopathy, CO2 retainer, respiratory failure acute Obesity High Trop High Bili UTI Bilateral LE cellulitis Anemia Plan pulmonary support, post extubation Zestril and Norvasc for high bp 24 h urine crcl 29 cc 24 h protein 0.6 gr midodrine increase dose DC IV fluids Anaya pressors as needed Avoid nephrotoxics monitor renal parameters 2D echo Ej Fx 55% kidney WESLEY no pathology reported Per ID , Pulm... meds IV or OG tube Avoid mind altering meds per orders Subjective ROS Limited/Unobtainable: No Constitutional: Reports: malaise Subjective ALOC periodically Objective Objective Last 24 Hour Vital Signs Date Time Temp Pulse Resp B/P (MAP) Pulse Ox O2 Delivery O2 Flow Rate FiO2 05/28/18 16:00 2.0 05/28/18 16:00 Nasal Cannula 2.0 05/28/18 14:00 76 20 133/90 (104) 95 05/28/18 13:04 79 97 05/28/18 13:00 8 18 136/97 (110) 97 05/28/18 12:00 Nasal Cannula 2.0 05/28/18 12:00 2.0 05/28/18 12:00 92 05/28/18 12:00 98.2 92 18 146/85 (105) 96 05/28/18 11:00 92 18 150/67 (94) 96 05/28/18 10:00 05/28/18 09:00 86 18 109/60 (76) 95 05/28/18 08:31 87 114/49 05/28/18 08:31 114/49 05/28/18 08:30 114/49 05/28/18 08:00 88 17 115/49 (71) 99 05/28/18 08:00 106 05/28/18 08:00 2.0 05/28/18 08:00 Nasal Cannula 4.0 05/28/18 07:26 77 20 100 05/28/18 07:00 75 18 134/98 (110) 100 05/28/18 06:00 98.4 78 17 138/95 (109) 100 05/28/18 05:00 79 18 139/90 (106) 100 05/28/18 04:00 75 19 124/88 (100) 100 05/28/18 04:00 2.0 05/28/18 04:00 78 05/28/18 04:00 Nasal Cannula 4.0 05/28/18 03:00 76 17 130/92 (105) 95 05/28/18 02:00 74 4 113/83 (93) 94 05/28/18 01:00 98.5 80 14 110/89 (96) 95 05/28/18 00:46 86 16 97 Facial 35 05/28/18 00:08 77 16 121/72 (88) 98 05/28/18 00:00 86 16 120/89 (99) 97 05/28/18 00:00 40 05/28/18 00:00 75 05/28/18 00:00 Nasal Cannula 4.0 05/27/18 23:30 86 17 98 Facial 35 05/27/18 23:00 80 16 133/89 (104) 96 05/27/18 22:00 82 14 95 05/27/18 21:00 79 11 124/83 (97) 99 05/27/18 20:31 81 19 99 05/27/18 20:16 87 16 100 Facial 35 05/27/18 20:00 98.4 77 17 122/86 (98) 100 05/27/18 20:00 Nasal Cannula 4.0 05/27/18 20:00 80 05/27/18 20:00 40 05/27/18 19:00 77 17 125/84 (98) 98 05/27/18 18:36 134/102 Intake and Output 05/27/18 05/28/18 19:00 07:00 Intake Total 220 ml 420 ml Output Total 600 ml 600 ml Balance -380 ml -180 ml Intake Oral 60 ml IV Total 220 ml 360 ml Output Urine Total 600 ml 600 ml # Bowel Movements 6 Laboratory Tests 05/28/18 05:08: White Blood Count 11.3H, Red Blood Count 5.18, Hemoglobin 13.0, Hematocrit 45.0 , Mean Corpuscular Volume 87, Mean Corpuscular Hemoglobin 25.0L, Mean Corpuscular Hemoglobin Concent 28.8L, Red Cell Distribution Width 21.7H, Platelet Count 308, Mean Platelet Volume 9.0, Neutrophils (%) (Auto) 80.5H, Lymphocytes (%) (Auto) 12.2L, Monocytes (%) (Auto) 4.1, Eosinophils (%) (Auto) 1.7, Basophils (%) (Auto) 1.5, Prothrombin Time 15.7H, Prothromb Time International Ratio 1.5H, Activated Partial Thromboplast Time 30, Sodium Level 147H, Potassium Level 3.6, Chloride Level 112H, Carbon Dioxide Level 26, Anion Gap 9, Blood Urea Nitrogen 30H, Creatinine 1.2, Estimat Glomerular Filtration Rate 54.7, Glucose Level 81, Calcium Level 9.4, Phosphorus Level 3.0, Magnesium Level 1.8, Total Bilirubin 1.4H, Direct Bilirubin 0.9H, Aspartate Amino Transf ( AST/SGOT) 29, Alanine Aminotransferase (ALT/SGPT) 11L, Alkaline Phosphatase 253H , Total Protein 7.0, Albumin 2.4L, Globulin 4.6, Albumin/Globulin Ratio 0.5L 05/28/18 09:20: Venous Blood pH [Pending], Venous Blood Partial Pressure CO2 [Pending], Venous Blood Partial Pressure O2 [Pending], Venous Blood HCO3 [Pending], Venous Blood Total Carbon Dioxide [Pending], Venous Bld O2 Saturation (Measured) 52.5, Venous Blood Oxygen Saturation [Pending], Venous Blood Base Excess [Pending], Methemoglobin 0.5, Sodium (Blood Gas) [Pending] Height (Feet): 5 Height (Inches): 3.00 Weight (Pounds): 325 General Appearance: no apparent distress Cardiovascular: normal rate Respiratory/Chest: decreased breath sounds Abdomen: soft Objective no change Tr Strange MD May 28, 2018 18:32
[2018-05-28] MEDS: DOPamine 400mg/250ml 250 ML IV SCH (19:00)
[2018-05-28] MEDS: Dyna-Hex 2% Top Sol 2oz TOPIC SCH (20:00)
--- NOTE | 2018-05-28 20:00 | NUR ---
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 VSS and patient not in any acute distress.
--- NOTE | 2018-05-28 20:15 | NUR ---
HAND-OFF: Report given to LUCIO Singh. VSS and patient is not in any acute distress.
--- NOTE | 2018-05-28 20:16 | NUR ---
NURSE NOTES: Report received from LUCIO Barrientos .Pt awake,alert to name with periods of confusion. HOB elevated. On oxygen 2L via N/C satting 100%. SR on the monitor HR 77. Bilateral soft restraints on and checked.Anaya intact with hematuria and dark yellow urine with Instructed patient to verbalize needs,fears and feelings to staff per patient she wants to go home. TV and talk therapy provided. Call light within easy reach. Safety measures in place with bed locked and in lowest position and side rails x3 up. Will continue to monitor and continue plan of care.
--- NOTE | 2018-05-28 21:30 | NUR ---
NURSE NOTES: seen and examined by DR. Wills with new order ABG in am noted and carried out.
[2018-05-28] MEDS: Atorvastatin 20mg tab ORAL SCH (21:57)
--- NOTE | 2018-05-28 22:06 | Cardiology Progress Note ---
Assessment/Plan Assessment/Plan LATE ENTRY NOTE: DOS: May 29, 2018 Time of Encounter: 23:18 1. Acute hypoxic hypercarbic respiratory failure, extubated, now on facial mask oxygen. 2D echocardiography shows normal LV systolic function with a normal left atrial pressure, however e/o right heart failure. 2. Right heart failure, pre-load sensitive, avoid aggressive diuretic use, evidence of RA and RV dilatation and severe RV systolic dysfunction, associated pulmonary HTN, ? type. 3. Paroxysmal atrial fibrillation, currently sinus rhythm. 4. Hypotension likely due to RV failure, resolved, on midodrine, grim prognosis. 5. Slight elevation of troponin I level in this patient most likely due to RV strain/failure. Subjective Subjective Sinus rhythm at rate of 81. On NC oxygen. Objective Last 24 Hour Vital Signs Date Time Temp Pulse Resp B/P (MAP) Pulse Ox O2 Delivery O2 Flow Rate FiO2 05/28/18 18:00 81 19 120/92 (101) 92 05/28/18 17:00 85 20 139/94 (109) 91 05/28/18 16:00 98.6 85 17 138/78 (98) 85 05/28/18 16:00 2.0 05/28/18 16:00 Nasal Cannula 2.0 05/28/18 16:00 88 05/28/18 15:00 75 18 137/94 (108) 98 05/28/18 14:00 76 20 133/90 (104) 95 05/28/18 13:04 79 97 05/28/18 13:00 8 18 136/97 (110) 97 05/28/18 12:00 Nasal Cannula 2.0 05/28/18 12:00 2.0 05/28/18 12:00 92 05/28/18 12:00 98.2 92 18 146/85 (105) 96 05/28/18 11:00 92 18 150/67 (94) 96 05/28/18 10:00 05/28/18 09:00 86 18 109/60 (76) 95 05/28/18 08:31 87 114/49 05/28/18 08:31 114/49 05/28/18 08:30 114/49 05/28/18 08:00 88 17 115/49 (71) 99 05/28/18 08:00 106 05/28/18 08:00 2.0 05/28/18 08:00 Nasal Cannula 4.0 05/28/18 07:26 77 20 100 05/28/18 07:00 75 18 134/98 (110) 100 05/28/18 06:00 98.4 78 17 138/95 (109) 100 05/28/18 05:00 79 18 139/90 (106) 100 05/28/18 04:00 75 19 124/88 (100) 100 05/28/18 04:00 2.0 05/28/18 04:00 78 05/28/18 04:00 Nasal Cannula 4.0 05/28/18 03:00 76 17 130/92 (105) 95 05/28/18 02:00 74 4 113/83 (93) 94 05/28/18 01:00 98.5 80 14 110/89 (96) 95 05/28/18 00:46 86 16 97 Facial 35 05/28/18 00:08 77 16 121/72 (88) 98 05/28/18 00:00 86 16 120/89 (99) 97 05/28/18 00:00 40 05/28/18 00:00 75 05/28/18 00:00 Nasal Cannula 4.0 05/27/18 23:30 86 17 98 Facial 35 05/27/18 23:00 80 16 133/89 (104) 96 Intake and Output 05/27/18 05/28/18 19:00 07:00 Intake Total 220 ml 420 ml Output Total 600 ml 600 ml Balance -380 ml -180 ml Intake Oral 60 ml IV Total 220 ml 360 ml Output Urine Total 600 ml 600 ml # Bowel Movements 6 2D Echo: LVEF 55%, D-shaped septum due to RV pressure overload, Massive RA/RV size. Laboratory Tests Test 05/28/18 05:08 05/28/18 09:20 White Blood Count 11.3 K/UL (4.8-10.8) H Red Blood Count 5.18 M/UL (4.20-5.40) Hemoglobin 13.0 G/DL (12.0-16.0) Hematocrit 45.0 % (37.0-47.0) Mean Corpuscular Volume 87 FL (80-99) Mean Corpuscular Hemoglobin 25.0 PG (27.0-31.0) L Mean Corpuscular Hemoglobin Concent 28.8 G/DL (32.0-36.0) L Red Cell Distribution Width 21.7 % (11.6-14.8) H Platelet Count 308 K/UL (150-450) Mean Platelet Volume 9.0 FL (6.5-10.1) Neutrophils (%) (Auto) 80.5 % (45.0-75.0) H Lymphocytes (%) (Auto) 12.2 % (20.0-45.0) L Monocytes (%) (Auto) 4.1 % (1.0-10.0) Eosinophils (%) (Auto) 1.7 % (0.0-3.0) Basophils (%) (Auto) 1.5 % (0.0-2.0) Prothrombin Time 15.7 SEC (9.30-11.50) H Prothromb Time International Ratio 1.5 (0.9-1.1) H Activated Partial Thromboplast Time 30 SEC (23-33) Sodium Level 147 MMOL/L (136-145) H Potassium Level 3.6 MMOL/L (3.5-5.1) Chloride Level 112 MMOL/L (98-107) H Carbon Dioxide Level 26 MMOL/L (21-32) Anion Gap 9 mmol/L (5-15) Blood Urea Nitrogen 30 mg/dL (7-18) H Creatinine 1.2 MG/DL (0.55-1.30) Estimat Glomerular Filtration Rate 54.7 mL/min (>60) Glucose Level 81 MG/DL (74-106) Calcium Level 9.4 MG/DL (8.5-10.1) Phosphorus Level 3.0 MG/DL (2.5-4.9) Magnesium Level 1.8 MG/DL (1.8-2.4) Total Bilirubin 1.4 MG/DL (0.2-1.0) H Direct Bilirubin 0.9 MG/DL (0.0-0.3) H Aspartate Amino Transf (AST/SGOT) 29 U/L (15-37) Alanine Aminotransferase (ALT/SGPT) 11 U/L (12-78) L Alkaline Phosphatase 253 U/L (46-116) H Total Protein 7.0 G/DL (6.4-8.2) Albumin 2.4 G/DL (3.4-5.0) L Globulin 4.6 g/dL Albumin/Globulin Ratio 0.5 (1.0-2.7) L Venous Blood pH Pending Venous Blood Partial Pressure CO2 Pending Venous Blood Partial Pressure O2 Pending Venous Blood HCO3 Pending Venous Blood Total Carbon Dioxide Pending Venous Bld O2 Saturation (Measured) 52.5 Venous Blood Oxygen Saturation Pending Venous Blood Base Excess Pending Methemoglobin 0.5 Sodium (Blood Gas) Pending Microbiology Date/Time Source Procedure Growth Status 05/27/18 07:15 Arm Left Catheter Tip Culture - Preliminary NO GROWTH Resulted Objective HEENT: Atraumatic and normocephalic. Anicteric. Pupils are equal, round, and reactive to light and accommodation. Extraocular muscles intact. NECK: JVP ~20 cm, No carotid bruit. Carotid upstroke is 2+ bilaterally. CVS: Normal S1 and S2. Regular rate and rhythm. RV heave, No murmurs, gallops , or rubs. LUNGS: Diminished breath sounds in both lungs with rhonchi bilaterally. ABDOMEN: Soft, nontender, and nondistended. No hepatosplenomegaly. Positive bowel sounds. EXTREMITIES: No evidence of edema, clubbing, or cyanosis. There is venous stasis of lower extremities with associated ulceration. Justice Erickson MD May 28, 2018 22:06
--- NOTE | 2018-05-28 23:30 | NUR ---
NURSE NOTES: Patient resting, watching TV. Pt turned and repositioned at this time. Continues on Bilateral soft wrist restraints. No signs of distress noted. Anaya draining 300cc/hr at after Lasix medication. Will continue to monitor.
[2018-05-29] VITALS (24 sets, daily range): BP systolic 99–156; BP diastolic 65–117
--- NOTE | 2018-05-29 01:00 | NUR ---
NURSE NOTES: Patient refusing the BIPAP explained the importance v/s risk and benefits of BIPAP patient agreed. BIPAP 12/10 Fi02 35% satting 100%. HOB elevated. patient watching TV. call light within easy reach. Will continue plan of acre.
[2018-05-29] MEDS: Vancomycin 750mg/NS 250ml IVPB SCH ×2 (02:00→13:16)
--- NOTE | 2018-05-29 03:00 | NUR ---
NURSE NOTES: Patient in bed sleeping comfortably, easily arousable to verbal and tactile stimuli. Frequent visual checks continued.
[2018-05-29] MEDS: Aztreonam Inj 2 GM in D5W 110 ML IVPB SCH ×3 (04:00→20:00)
--- NOTE | 2018-05-29 05:00 | NUR ---
NURSE NOTES: Bed bath given tolerated well. On oxygen 2L via N/C satting 100%. Patient refused Bipap. No s/s of acute distress noted.
[2018-05-29] MEDS: NovoLOG Insulin Flexpen SUBQ SCH ×5 (06:00→21:00)
[2018-05-29 06:25] LABS: BASOPHILS % (AUTO) 0.9 % (0.0-2.0); EOSINOPHILS % (AUTO) 1.4 % (0.0-3.0); HEMATOCRIT 45.7 % (37.0-47.0); HEMOGLOBIN 13.1 G/DL (12.0-16.0); LYMPHOCYTES % (AUTO) 13.7 % (20.0-45.0); MEAN CORPUSCULAR VOLUME 87 FL (80-99); MONOCYTES % (AUTO) 4.3 % (1.0-10.0); NEUTROPHILS % (AUTO) 79.7 % (45.0-75.0); PLATELET COUNT 277 K/UL (150-450); RED BLOOD COUNT 5.29 M/UL (4.20-5.40)
[2018-05-29 07:00] LABS: ANION GAP 8 mmol/L (5-15); BLOOD UREA NITROGEN 25 mg/dL (7-18); CALCIUM 9.3 MG/DL (8.5-10.1); CARBON DIOXIDE 28 MMOL/L (21-32); CHLORIDE 113 MMOL/L (98-107); CREATININE 1.1 MG/DL (0.55-1.30); PHOSPHORUS 3.1 MG/DL (2.5-4.9); POTASSIUM 3.5 MMOL/L (3.5-5.1); SODIUM 149 MMOL/L (136-145)
--- NOTE | 2018-05-29 07:15 | NUR ---
HAND-OFF: Report given to LUCIO Hernadez.
--- NOTE | 2018-05-29 07:20 | NUR ---
NURSE NOTES: Received report from Stanford Glass RN. Patient awake in bed, oriented x 2, able to make needs known and follow commands. Sinus rhythm on rn cardiac cath. On room air, saturating at 95%, respirations even and unlabored. Anaya catheter patent and draining yellow urine. Left wrist 22g saline lock patent and asymptomatic. Bilateral soft wrist restraints in place, skin intact, peripheral pulses present, no edema or redness noted. Bed locked in lowest position with side rails up x 3. All needs attended to. Call light within reach. Will continue to monitor.
--- NOTE | 2018-05-29 07:20 | Pulmonolgy Critical Care Note ---
Critical Care - Asmt/Plan Assessment/Plan: Pulmonary Progress Note Assessment/Plan: 67 y/o female w/ DM, CKD, morbid obesity admitted with b/l LE cellulitis and altered mental status. Problem List: 1. Altered mental status 2. Acute hypercapnic respiratory failure -intubated 05/15 -self-extubated 05/24 3. Bilateral lower extremity cellulitis 4. RACHELLE on CKD 5. DM 6. Morbid obesity 7. Elevated ammonia level 8. RV failure 9. Acute diastolic Congestive heart failure 10. 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: continue to monitor HR/BP Renal: F/U I&O Infectious Disease: continue antibiotics Time Spent (Minutes): 40 - CC Notes Reviewed: collections officer, renal, ID Discussed with: nurses Critical Care - Objective Vital Signs Noted Status: awake Condition: improving Lungs: rales Heart: HR/BP stable Abdomen: soft, non-tender Extremities: edema Micro: Microbiology Date/Time Source Procedure Growth Status 05/24/18 18:00 Foot Right Gram Stain - Final Resulted 05/24/18 18:00 Wound Culture - Preliminary Staphylococcus Species Yeast Species Gram Negative Josesito Diphtheroids Resulted Accucheck: 104 Critical Care - Subjective ROS Limited/Unobtainable: Yes Interval Events: BiPAP overnight and VBG shows improvement. Pulled out PICC line which was infected anyway. Seems calmer and more cooperative but in restraints Condition: improving EKG Rhythm: Sinus Rhythm FI02: 35 Sputum Amount: None Critical Care - Objective Last 24 Hour Vital Signs Date Time Temp Pulse Resp B/P (MAP) Pulse Ox O2 Delivery O2 Flow Rate FiO2 05/29/18 06:00 75 18 137/99 (112) 100 05/29/18 05:00 77 18 124/91 (102) 100 05/29/18 04:00 Bi-pap 05/29/18 04:00 78 05/29/18 04:00 97.8 72 21 140/74 (96) 97 05/29/18 03:04 78 18 100 Facial 30 05/29/18 03:00 82 18 141/90 (107) 100 05/29/18 02:00 75 20 130/99 (109) 100 05/29/18 01:00 35 05/29/18 01:00 78 13 129/83 (98) 100 05/29/18 00:12 73 18 100 Facial 35 05/29/18 00:00 2.0 05/29/18 00:00 81 05/29/18 00:00 Nasal Cannula 2.0 05/29/18 00:00 98.0 82 23 152/99 (116) 100 05/28/18 23:00 82 23 150/91 (110) 100 05/28/18 22:00 81 21 145/109 (121) 100 05/28/18 21:00 81 19 142/73 (96) 100 05/28/18 20:00 98.4 80 9 139/105 (116) 99 05/28/18 20:00 2.0 05/28/18 20:00 Nasal Cannula 2.0 05/28/18 20:00 77 05/28/18 19:00 81 120/102 (108) 85 05/28/18 18:00 81 19 120/92 (101) 92 05/28/18 17:00 85 20 139/94 (109) 91 05/28/18 16:00 98.6 85 17 138/78 (98) 85 05/28/18 16:00 2.0 05/28/18 16:00 Nasal Cannula 2.0 05/28/18 16:00 88 05/28/18 15:00 75 18 137/94 (108) 98 05/28/18 14:00 76 20 133/90 (104) 95 05/28/18 13:04 79 97 05/28/18 13:00 8 18 136/97 (110) 97 05/28/18 12:00 Nasal Cannula 2.0 05/28/18 12:00 2.0 05/28/18 12:00 92 05/28/18 12:00 98.2 92 18 146/85 (105) 96 05/28/18 11:00 92 18 150/67 (94) 96 05/28/18 10:00 05/28/18 09:00 86 18 109/60 (76) 95 05/28/18 08:31 87 114/49 05/28/18 08:31 114/49 05/28/18 08:30 114/49 05/28/18 08:00 88 17 115/49 (71) 99 05/28/18 08:00 106 05/28/18 08:00 2.0 05/28/18 08:00 Nasal Cannula 4.0 05/28/18 07:26 77 20 100 Micro: Microbiology Date/Time Source Procedure Growth Status 05/27/18 07:15 Arm Left Catheter Tip Culture - Preliminary NO GROWTH Resulted Accucheck: 88 Critical Care - Subjective ROS Limited/Unobtainable: No FI02: 30 Sputum Amount: None I&O: Intake and Output 05/28/18 05/29/18 18:59 06:59 Intake Total 813.334 ml 460.000 ml Output Total 615 ml 1475 ml Balance 198.334 ml -1015.000 ml Intake Oral 480 ml 100 ml IV Total 333.334 ml 360.000 ml Output Urine Total 615 ml 1475 ml # Bowel Movements 5 2 Lawrence Wills MD May 29, 2018 07:20
[2018-05-29] MEDS: Pantoprazole Inj IVP SCH (09:19)
[2018-05-29] MEDS: Lisinopril 2.5mg tab ORAL SCH (09:20)
[2018-05-29] MEDS: Ascorbic Acid 500mg tab NG SCH ×2 (09:21→17:55)
[2018-05-29] MEDS: Nitroglycerin Patch 0.4mg TDERMAL SCH (09:21)
[2018-05-29] MEDS: Betadine 4oz Bottle TOPIC SCH ×2 (09:22→17:55)
--- NOTE | 2018-05-29 09:26 | General Progress Note ---
Assessment/Plan Problem List: (1) Leukocytosis (leucocytosis) ICD Codes: D72.829 - Elevated white blood cell count, unspecified SNOMED: 138166129, 839482979 (2) Elevated transaminase level ICD Codes: R74.0 - Nonspecific elevation of levels of transaminase and lactic acid dehydrogenase [LDH] SNOMED: 837793072 (3) HTN (hypertension) ICD Codes: I10 - HTN (hypertension) SNOMED: 65720735 (4) COPD (chronic obstructive pulmonary disease) ICD Codes: J44.9 - Chronic obstructive pulmonary disease, unspecified SNOMED: 18682564 (5) DM (diabetes mellitus) ICD Codes: E11.9 - DM (diabetes mellitus) SNOMED: 98800341 Assessment/Plan OB stool negative x2 stable H&H generalized anasarca hepatitis panel negative abdominal US reviewed >> - Ascites - Borderline hepatomegaly - Thick-walled gallbladder, likely in part artifact of nondistention, and in part due to hemodynamic factors causing the ascites. No definite gallstones. Acute cholecystitis not completely excludable, due to the wall thickening, and hepatobiliary scan should be considered if there is high clinical suspicion for such. - Negative for dilated ducts - To and fro flow within the main portal vein, could indicate portal hypertension consider HIDA and paracentesis when respiratory status stabilizes on cardiac diet cont lactulose prn transfusions rectal tube bowel regime ppi fu labs will consider endoscopy pending work up, but will require cardiac clearance given elevated troponin levels Subjective ROS Limited/Unobtainable: No Allergies: Coded Allergies: ASPIRIN (Verified Allergy, Intermediate, Hives, 01/06/13) PENICILLINS (Verified Allergy, Intermediate, Hives, 01/06/13) Objective Last 24 Hour Vital Signs Date Time Temp Pulse Resp B/P (MAP) Pulse Ox O2 Delivery O2 Flow Rate FiO2 05/29/18 09:21 76 120/83 05/29/18 09:21 120/83 05/29/18 09:20 120/83 05/29/18 09:06 75 19 100 Facial 30 05/29/18 07:00 75 16 139/101 (114) 94 05/29/18 06:00 75 18 137/99 (112) 100 05/29/18 05:00 77 18 124/91 (102) 100 05/29/18 04:00 Bi-pap 05/29/18 04:00 78 05/29/18 04:00 97.8 72 21 140/74 (96) 97 05/29/18 03:04 78 18 100 Facial 30 05/29/18 03:00 82 18 141/90 (107) 100 05/29/18 02:00 75 20 130/99 (109) 100 05/29/18 01:00 35 05/29/18 01:00 78 13 129/83 (98) 100 05/29/18 00:12 73 18 100 Facial 35 05/29/18 00:00 2.0 05/29/18 00:00 81 05/29/18 00:00 Nasal Cannula 2.0 05/29/18 00:00 98.0 82 23 152/99 (116) 100 05/28/18 23:00 82 23 150/91 (110) 100 05/28/18 22:00 81 21 145/109 (121) 100 05/28/18 21:00 81 19 142/73 (96) 100 05/28/18 20:00 98.4 80 9 139/105 (116) 99 05/28/18 20:00 2.0 05/28/18 20:00 Nasal Cannula 2.0 05/28/18 20:00 77 05/28/18 19:00 81 120/102 (108) 85 05/28/18 18:00 81 19 120/92 (101) 92 05/28/18 17:00 85 20 139/94 (109) 91 05/28/18 16:00 98.6 85 17 138/78 (98) 85 05/28/18 16:00 2.0 05/28/18 16:00 Nasal Cannula 2.0 05/28/18 16:00 88 05/28/18 15:00 75 18 137/94 (108) 98 05/28/18 14:00 76 20 133/90 (104) 95 05/28/18 13:04 79 97 05/28/18 13:00 8 18 136/97 (110) 97 05/28/18 12:00 Nasal Cannula 2.0 05/28/18 12:00 2.0 05/28/18 12:00 92 05/28/18 12:00 98.2 92 18 146/85 (105) 96 05/28/18 11:00 92 18 150/67 (94) 96 05/28/18 10:00 Intake and Output 05/28/18 05/29/18 18:59 06:59 Intake Total 813.334 ml 460.000 ml Output Total 615 ml 1475 ml Balance 198.334 ml -1015.000 ml Intake Oral 480 ml 100 ml IV Total 333.334 ml 360.000 ml Output Urine Total 615 ml 1475 ml # Bowel Movements 5 2 Laboratory Tests 05/29/18 06:03: White Blood Count 10.0, Red Blood Count 5.29, Hemoglobin 13.1, Hematocrit 45.7, Mean Corpuscular Volume 87, Mean Corpuscular Hemoglobin 24.9L, Mean Corpuscular Hemoglobin Concent 28.7L, Red Cell Distribution Width 22.0H, Platelet Count 277 , Mean Platelet Volume 9.0, Neutrophils (%) (Auto) 79.7H, Lymphocytes (%) (Auto ) 13.7L, Monocytes (%) (Auto) 4.3, Eosinophils (%) (Auto) 1.4, Basophils (%) ( Auto) 0.9, Sodium Level 149H, Potassium Level 3.5, Chloride Level 113H, Carbon Dioxide Level 28, Anion Gap 8, Blood Urea Nitrogen 25H, Creatinine 1.1, Estimat Glomerular Filtration Rate > 60, Glucose Level 96, Calcium Level 9.3, Phosphorus Level 3.1, Magnesium Level 1.7L 05/29/18 08:55: Arterial Blood pH 7.296L, Arterial Blood Partial Pressure CO2 59.2*H, Arterial Blood Partial Pressure O2 92.5, Arterial Blood HCO3 28.2H, Arterial Blood Oxygen Saturation 96.5, Arterial Blood Base Excess 0.4, Aditya Test Positive Height (Feet): 5 Height (Inches): 3.00 Weight (Pounds): 321 General Appearance: lethargic EENT: normal ENT inspection Neck: supple Cardiovascular: normal rate Respiratory/Chest: decreased breath sounds Abdomen: normal bowel sounds, non tender, soft Extremities: non-tender Robert Paul MD May 29, 2018 09:25
--- NOTE | 2018-05-29 09:37 | NUR ---
NURSE NOTES: Patient's ABG noted with elevated pCO2 of 59.2. Patient placed back on bi-pap with settings of 18/6, FiO2 30%. Dr. Ritchie contacted, left message with results and awaiting call back from covering MD. Will continue to monitor.
[2018-05-29] MEDS ORDERED: Tubing IV Secondary IV ONE ×2 (10:53→10:55)
[2018-05-29] MEDS ORDERED: NS 275ml ONE (10:55)
--- NOTE | 2018-05-29 11:30 | NUR ---
NURSE NOTES: Patient remains on bipap with settings of 18/6, FiO2 30%, saturating at 98%, no acute distress noted. Patient is noncompliant and was observed attempting to remove bipap. Patient kept on bilateral soft wrist restraints. Provided health education on oxygen therapy but patient is unable to comprehend and needs reinforcemnt. Will continue to monitor.
--- NOTE | 2018-05-29 13:16 | NUR ---
NURSE NOTES: Environmental Assistant, RN and charge nurse unable to draw patient's vanco trough lab for 12:00. No other segment assembler available until 13:30. Pharmacist Topher made aware and advised to give next dose and she will retime the next trough. 13:00 Vancomycin 750mg administered. Next vanco trough rescheduled to 05/30/18 00:01 for the 01:00 dose.
--- NOTE | 2018-05-29 15:38 | NUR ---
NURSE NOTES: Patient off bi-pap and placed on nasal cannula @ 3L/min, saturating at 99%. No s/s of respiratory distress noted. Will continue to monitor.
--- NOTE | 2018-05-29 16:16 | Nephrology Progress Note ---
Assessment/Plan Problem List: (1) ARF (acute renal failure) (2) Cellulitis of both lower extremities (3) Venous stasis ulcers of both lower extremities (4) DM (diabetes mellitus) (5) CKD (chronic kidney disease) (6) Morbid (severe) obesity due to excess calories (7) Acute hypoxemic respiratory failure Assessment extubated on bipap as needed- Diabetic Nephropathy Cr lower acute renal failure super imposed on CKD Encephalopathy, CO2 retainer, respiratory failure acute Obesity High Trop High Bili UTI Bilateral LE cellulitis Anemia Plan pulmonary support, post extubation Zestril and Norvasc for high bp 24 h urine crcl 29 cc 24 h protein 0.6 gr midodrine increase dose DC IV fluids Anaya pressors as needed Avoid nephrotoxics monitor renal parameters 2D echo Ej Fx 55% kidney WESLEY no pathology reported Per ID , Pulm... meds IV or OG tube Avoid mind altering meds per orders Subjective ROS Limited/Unobtainable: No Constitutional: Reports: malaise Subjective ALOC periodically Objective Objective Last 24 Hour Vital Signs Date Time Temp Pulse Resp B/P (MAP) Pulse Ox O2 Delivery O2 Flow Rate FiO2 05/29/18 13:02 72 22 100 Facial 30 05/29/18 13:00 76 17 112/78 (89) 100 05/29/18 12:00 97.5 75 16 99/84 (89) 100 05/29/18 12:00 Bi-pap 05/29/18 12:00 76 05/29/18 12:00 30 05/29/18 11:09 73 26 98 Facial 30 05/29/18 11:00 73 17 119/86 (97) 98 05/29/18 10:00 74 14 156/99 (118) 91 05/29/18 09:21 76 120/83 05/29/18 09:21 120/83 05/29/18 09:20 120/83 05/29/18 09:06 75 19 100 Facial 30 05/29/18 09:00 77 13 120/83 (95) 96 05/29/18 08:00 2.0 05/29/18 08:00 Nasal Cannula 2.0 05/29/18 08:00 97.6 77 19 139/92 (108) 93 05/29/18 08:00 78 05/29/18 07:00 75 16 139/101 (114) 94 05/29/18 06:00 75 18 137/99 (112) 100 05/29/18 05:00 77 18 124/91 (102) 100 05/29/18 04:00 Bi-pap 05/29/18 04:00 78 05/29/18 04:00 97.8 72 21 140/74 (96) 97 05/29/18 03:04 78 18 100 Facial 30 05/29/18 03:00 82 18 141/90 (107) 100 05/29/18 02:00 75 20 130/99 (109) 100 05/29/18 01:00 35 05/29/18 01:00 78 13 129/83 (98) 100 05/29/18 00:12 73 18 100 Facial 35 05/29/18 00:00 2.0 05/29/18 00:00 81 05/29/18 00:00 Nasal Cannula 2.0 05/29/18 00:00 98.0 82 23 152/99 (116) 100 05/28/18 23:00 82 23 150/91 (110) 100 05/28/18 22:00 81 21 145/109 (121) 100 05/28/18 21:00 81 19 142/73 (96) 100 05/28/18 20:00 98.4 80 9 139/105 (116) 99 05/28/18 20:00 2.0 05/28/18 20:00 Nasal Cannula 2.0 05/28/18 20:00 77 05/28/18 19:00 81 120/102 (108) 85 05/28/18 18:00 81 19 120/92 (101) 92 05/28/18 17:00 85 20 139/94 (109) 91 Intake and Output 05/28/18 05/29/18 19:00 07:00 Intake Total 813.334 ml 460.000 ml Output Total 605 ml 1465 ml Balance 208.334 ml -1005.000 ml Intake Oral 480 ml 100 ml IV Total 333.334 ml 360.000 ml Output Urine Total 605 ml 1465 ml # Bowel Movements 5 2 Laboratory Tests 05/29/18 06:03: White Blood Count 10.0, Red Blood Count 5.29, Hemoglobin 13.1, Hematocrit 45.7, Mean Corpuscular Volume 87, Mean Corpuscular Hemoglobin 24.9L, Mean Corpuscular Hemoglobin Concent 28.7L, Red Cell Distribution Width 22.0H, Platelet Count 277 , Mean Platelet Volume 9.0, Neutrophils (%) (Auto) 79.7H, Lymphocytes (%) (Auto ) 13.7L, Monocytes (%) (Auto) 4.3, Eosinophils (%) (Auto) 1.4, Basophils (%) ( Auto) 0.9, Sodium Level 149H, Potassium Level 3.5, Chloride Level 113H, Carbon Dioxide Level 28, Anion Gap 8, Blood Urea Nitrogen 25H, Creatinine 1.1, Estimat Glomerular Filtration Rate > 60, Glucose Level 96, Calcium Level 9.3, Phosphorus Level 3.1, Magnesium Level 1.7L 05/29/18 08:55: Arterial Blood pH 7.296L, Arterial Blood Partial Pressure CO2 59.2*H, Arterial Blood Partial Pressure O2 92.5, Arterial Blood HCO3 28.2H, Arterial Blood Oxygen Saturation 96.5, Arterial Blood Base Excess 0.4, Aditya Test Positive Height (Feet): 5 Height (Inches): 3.00 Weight (Pounds): 321 EENT: other Cardiovascular: normal rate Respiratory/Chest: decreased breath sounds Abdomen: soft Objective no change Tr Strange MD May 29, 2018 16:16
--- NOTE | 2018-05-29 16:54 | Infectious Diseases Prog Note ---
Assessment/Plan Problems: (1) VAP (ventilator-associated pneumonia) Assessment & Plan: with coag negative staphylococcus and proteus mirabilis , already on vancomycin and aztreonam for two weeks . recommend aspiration precaution (2) Bacteremia due to Enterococcus Assessment & Plan: due to enterococcus faecalis suspect picc line related blood stream infection , PICC line was removed . continue vancomycin renally dosed as per pharmacy for two weeks. EOT 06/09/18 (3) Bilateral lower leg cellulitis Assessment & Plan: wound culture grew klibsella oxytoca, and Sphingomonas paucimobilis , continue vancomycin and aztreonam empirically with local wounds care . await on bone scan of both legs once clinically stable . (4) Nonhealing ulcer of left lower extremity Assessment & Plan: wound culture grew klebsiella oxytoca and Sphingomonas paucimobilis, now on aztreonam and vancomycin , continue local wound care and dressings change as per wound care service as per plastic surgery recommendations (5) CKD (chronic kidney disease) Assessment & Plan: avoid nephrotoxics , renally dosed antibiotics as per pharmacy (6) DM (diabetes mellitus) Assessment & Plan: recommend tight glycemic control to keep blood glucose between 100-140 (7) Acute encephalopathy Assessment & Plan: suspect metabolic with high ammonia level, continue lactulose , consult neurology if no improvement (8) Acute hypoxemic respiratory failure Assessment & Plan: due to the above , self extubated , now on NASAL CANULA , pulmonary is following, Subjective Constitutional: Reports: no symptoms HEENT: Reports: no symptoms Respiratory: Reports: dry cough Breasts: Reports: no symptoms Cardiovascular: Reports: no symptoms Gastrointestinal/Abdominal: Reports: no symptoms Genitourinary: Reports: no symptoms Neurologic: Reports: no symptoms Psychiatric: Reports: no symptoms Skin: Reports: no symptoms Endocrine: Reports: no symptoms Hematologic: Reports: no symptoms Musculoskeletal: Reports: no symptoms Allergies: Coded Allergies: ASPIRIN (Verified Allergy, Intermediate, Hives, 01/06/13) PENICILLINS (Verified Allergy, Intermediate, Hives, 01/06/13) Subjective she was retaining co2 earlier and placed on BIPAP, but improved now on nasal canula , comfortable, afebrile, denied any fever or chills, has good UOP Objective Vital Signs Last 24 Hour Vital Signs Date Time Temp Pulse Resp B/P (MAP) Pulse Ox O2 Delivery O2 Flow Rate FiO2 05/29/18 16:00 Nasal Cannula 3.0 05/29/18 16:00 3.0 05/29/18 16:00 98.1 81 20 146/90 (108) 99 05/29/18 15:00 77 12 140/117 (125) 100 05/29/18 14:00 75 18 129/88 (102) 99 05/29/18 13:02 72 22 100 Facial 30 05/29/18 13:00 76 17 112/78 (89) 100 05/29/18 12:00 97.5 75 16 99/84 (89) 100 05/29/18 12:00 Bi-pap 05/29/18 12:00 76 05/29/18 12:00 30 05/29/18 11:09 73 26 98 Facial 30 05/29/18 11:00 73 17 119/86 (97) 98 05/29/18 10:00 74 14 156/99 (118) 91 05/29/18 09:21 76 120/83 05/29/18 09:21 120/83 05/29/18 09:20 120/83 05/29/18 09:06 75 19 100 Facial 30 05/29/18 09:00 77 13 120/83 (95) 96 05/29/18 08:00 2.0 05/29/18 08:00 Nasal Cannula 2.0 05/29/18 08:00 97.6 77 19 139/92 (108) 93 05/29/18 08:00 78 05/29/18 07:00 75 16 139/101 (114) 94 05/29/18 06:00 75 18 137/99 (112) 100 05/29/18 05:00 77 18 124/91 (102) 100 05/29/18 04:00 Bi-pap 05/29/18 04:00 78 05/29/18 04:00 97.8 72 21 140/74 (96) 97 05/29/18 03:04 78 18 100 Facial 30 05/29/18 03:00 82 18 141/90 (107) 100 05/29/18 02:00 75 20 130/99 (109) 100 05/29/18 01:00 35 05/29/18 01:00 78 13 129/83 (98) 100 05/29/18 00:12 73 18 100 Facial 35 05/29/18 00:00 2.0 05/29/18 00:00 81 05/29/18 00:00 Nasal Cannula 2.0 05/29/18 00:00 98.0 82 23 152/99 (116) 100 05/28/18 23:00 82 23 150/91 (110) 100 05/28/18 22:00 81 21 145/109 (121) 100 05/28/18 21:00 81 19 142/73 (96) 100 05/28/18 20:00 98.4 80 9 139/105 (116) 99 05/28/18 20:00 2.0 05/28/18 20:00 Nasal Cannula 2.0 05/28/18 20:00 77 05/28/18 19:00 81 120/102 (108) 85 05/28/18 18:00 81 19 120/92 (101) 92 05/28/18 17:00 85 20 139/94 (109) 91 Height (Feet): 5 Height (Inches): 3.00 Weight (Pounds): 321 General Appearance: WD/WN, no acute distress HEENT: normocephalic, atraumatic, anicteric, mucous membranes moist Respiratory/Chest: chest wall non-tender, no respiratory distress, no accessory muscle use, decreased breath sounds, crackles/rales Cardiovascular: normal peripheral pulses, normal rate, regular rhythm, no gallop/murmur, no JVD Abdomen: normal bowel sounds, soft, non tender, no organomegaly, non distended , no mass, no scars Genitourinary: normal external genitalia Extremities: no cyanosis, no clubbing Skin: no rash, no lesions Neurologic/Psychiatric: alert, responsive Lymphatic: no neck adenopathy, no groin adenopathy Musculoskeletal: normal muscle bulk, no effusion Microbiology Date/Time Source Procedure Growth Status 05/27/18 07:15 Arm Left Catheter Tip Culture - Preliminary NO GROWTH Resulted Laboratory Tests Test 05/29/18 06:03 05/29/18 08:55 White Blood Count 10.0 K/UL (4.8-10.8) Red Blood Count 5.29 M/UL (4.20-5.40) Hemoglobin 13.1 G/DL (12.0-16.0) Hematocrit 45.7 % (37.0-47.0) Mean Corpuscular Volume 87 FL (80-99) Mean Corpuscular Hemoglobin 24.9 PG (27.0-31.0) L Mean Corpuscular Hemoglobin Concent 28.7 G/DL (32.0-36.0) L Red Cell Distribution Width 22.0 % (11.6-14.8) H Platelet Count 277 K/UL (150-450) Mean Platelet Volume 9.0 FL (6.5-10.1) Neutrophils (%) (Auto) 79.7 % (45.0-75.0) H Lymphocytes (%) (Auto) 13.7 % (20.0-45.0) L Monocytes (%) (Auto) 4.3 % (1.0-10.0) Eosinophils (%) (Auto) 1.4 % (0.0-3.0) Basophils (%) (Auto) 0.9 % (0.0-2.0) Sodium Level 149 MMOL/L (136-145) H Potassium Level 3.5 MMOL/L (3.5-5.1) Chloride Level 113 MMOL/L (98-107) H Carbon Dioxide Level 28 MMOL/L (21-32) Anion Gap 8 mmol/L (5-15) Blood Urea Nitrogen 25 mg/dL (7-18) H Creatinine 1.1 MG/DL (0.55-1.30) Estimat Glomerular Filtration Rate > 60 mL/min (>60) Glucose Level 96 MG/DL (74-106) Calcium Level 9.3 MG/DL (8.5-10.1) Phosphorus Level 3.1 MG/DL (2.5-4.9) Magnesium Level 1.7 MG/DL (1.8-2.4) L Arterial Blood pH 7.296 (7.350-7.450) Arterial Blood Partial Pressure CO2 59.2 mmHg (35.0-45.0) *H Arterial Blood Partial Pressure O2 92.5 mmHg (75.0-100.0) Arterial Blood HCO3 28.2 mmol/L (22.0-26.0) H Arterial Blood Oxygen Saturation 96.5 % (95-100) Arterial Blood Base Excess 0.4 (-2-2) Aditya Test Positive Current Medications Medications (Trade) Dose Ordered Sig/Toya Route PRN Reason Start Time Stop Time Status Last Admin Dose Admin Allopurinol (Allopurinol) 300 mg DAILY NG 05/19/18 13:00 06/18/18 12:59 05/29/18 09:21 Amlodipine Besylate (Norvasc) 2.5 mg DAILY ORAL 05/27/18 10:06 06/26/18 10:05 05/29/18 09:21 Ascorbic Acid (Vitamin C) 500 mg TWICE A DAY NG 05/18/18 09:00 06/15/18 17:59 05/29/18 09:21 Atorvastatin Calcium (Lipitor) 20 mg BEDTIME ORAL 05/17/18 21:00 06/13/18 20:59 05/28/18 21:57 Aztreonam 2 gm/ Dextrose 110 ml @ 220 mls/hr Q8H IVPB 05/29/18 04:00 06/05/18 03:59 05/29/18 12:23 Chlorhexidine Gluconate (Romy-Hex 2%) 1 applic DAILY@2000 TOPIC 05/14/18 20:00 06/13/18 19:59 05/27/18 21:24 Clopidogrel Bisulfate (Plavix) 75 mg DAILY NG 05/18/18 09:00 06/14/18 08:59 05/29/18 09:19 Dextrose (Dextrose 50%) 25 ml Q30M PRN IV Hypoglycemia 05/13/18 21:00 06/11/18 16:59 Dextrose (Dextrose 50%) 50 ml Q30M PRN IV Hypoglycemia 05/13/18 21:00 06/11/18 16:59 Dopamine HCl/ Dextrose 250 ml @ 0 mls/hr Q24H IV 05/15/18 19:00 06/14/18 18:59 05/16/18 18:05 Furosemide (Lasix) 20 mg Q12HR IV 05/26/18 21:00 06/23/18 16:03 05/29/18 09:20 Insulin Aspart (NovoLOG) Q6HR SUBQ 05/18/18 13:00 06/11/18 12:59 05/28/18 17:41 Lisinopril (Zestril) 5 mg DAILY ORAL 05/26/18 15:45 06/25/18 15:44 05/29/18 09:20 Magnesium Sulfate 100 ml @ 100 mls/hr Q1H IVPB 05/29/18 17:00 05/29/18 18:59 Multivitamins (Multivitamins) 1 tab DAILY ORAL 05/18/18 09:00 06/16/18 08:59 05/29/18 09:21 Nitroglycerin (Ntg) 1 patch Q24H TDERMAL 05/15/18 09:00 06/14/18 08:59 05/29/18 09:21 Pantoprazole (Protonix) 40 mg DAILY IVP 05/26/18 09:00 06/13/18 20:59 05/29/18 09:19 Povidone Iodine (Betadine Gretchen) 1 applic BID TOPIC 05/16/18 09:00 06/15/18 08:59 05/29/18 09:22 Sodium Chloride 500 ml @ 999 mls/hr Q31M PRN IV For hypotension 05/14/18 01:30 06/13/18 01:29 05/21/18 19:22 Vancomycin HCl (Vanco rx to dose) 1 ea DAILY PRN MISC Per rx protocol 05/23/18 17:30 06/22/18 17:29 Vancomycin/Sodium Chloride 250 ml @ 166.667 mls/hr Q12H IVPB 05/28/18 01:00 06/02/18 00:59 05/29/18 13:16 Juice Wilkerson M.D. May 29, 2018 16:54
--- NOTE | 2018-05-29 17:50 | NUR ---
NURSE NOTES: Patient ate 25% of dinner, tolerating current diet but has poor appetite. BS within normal limits.
[2018-05-29] MEDS: DOPamine 400mg/250ml 250 ML IV SCH (19:00)
--- NOTE | 2018-05-29 19:13 | General Progress Note ---
Assessment/Plan Assessment/Plan S, O: status post self-Extubation, PICC line in place, patient awake, following commands. limited exam PHYSICAL EXAMINATION: HEAD AND NECK: Atraumatic and normocephalic. CHEST: Diffuse bronchial breathing sounds. Overall decreased breathing sounds. ABDOMEN: Grossly morbidly obese. Limited evaluation. MUSCULOSKELETAL: Positive for ulcers and wounds, more diffusely edematous about 2+, superficial wounds on both legs , dressed . NEUROLOGIC: The patient is awake , follow commands . limited exam, Meds: Reviewed and reconciled. CXR dated 05/22/18 : reviewed ASSESSMENT: 1.Hypercapnic Vent Dependent Respiratory failure: S/P self-extubation 2. shock, ddx: septic vs cardiogenic : Resolved 3. CHF exacerbation, right sided, preserved EF 3. Acute/Chronic Renal F 4. Abnormal Trop: NSTEMI vs Leakage 3. UTI/lower extremity infection Hypertension. 4. Diabetes type 2, controlled with A1c of 6.3. 5. Pain management. 6. PAH 7. 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 HyperNatremia 6. GI and DVT prophylaxis. PLAN OF CARE: Guarded prognosis Off pressor, preserved BP Empirical abx, per ID Will Followup with pulmonary for post - Self- extubation care, C/w lasix, will titrate according to BP Subjective Allergies: Coded Allergies: ASPIRIN (Verified Allergy, Intermediate, Hives, 01/06/13) PENICILLINS (Verified Allergy, Intermediate, Hives, 01/06/13) Objective Last 24 Hour Vital Signs Date Time Temp Pulse Resp B/P (MAP) Pulse Ox O2 Delivery O2 Flow Rate FiO2 05/29/18 19:00 84 20 111/65 (80) 96 05/29/18 18:00 84 20 155/90 (111) 99 05/29/18 17:00 79 18 143/91 (108) 99 05/29/18 16:00 Nasal Cannula 3.0 05/29/18 16:00 3.0 05/29/18 16:00 79 05/29/18 16:00 98.1 81 20 146/90 (108) 99 05/29/18 15:00 77 12 140/117 (125) 100 05/29/18 14:00 75 18 129/88 (102) 99 05/29/18 13:02 72 22 100 Facial 30 05/29/18 13:00 76 17 112/78 (89) 100 05/29/18 12:00 97.5 75 16 99/84 (89) 100 05/29/18 12:00 Bi-pap 05/29/18 12:00 76 05/29/18 12:00 30 05/29/18 11:09 73 26 98 Facial 30 05/29/18 11:00 73 17 119/86 (97) 98 05/29/18 10:00 74 14 156/99 (118) 91 05/29/18 09:21 76 120/83 05/29/18 09:21 120/83 05/29/18 09:20 120/83 05/29/18 09:06 75 19 100 Facial 30 05/29/18 09:00 77 13 120/83 (95) 96 05/29/18 08:00 2.0 05/29/18 08:00 Nasal Cannula 2.0 05/29/18 08:00 97.6 77 19 139/92 (108) 93 05/29/18 08:00 78 05/29/18 07:00 75 16 139/101 (114) 94 05/29/18 06:00 75 18 137/99 (112) 100 05/29/18 05:00 77 18 124/91 (102) 100 05/29/18 04:00 Bi-pap 05/29/18 04:00 78 05/29/18 04:00 97.8 72 21 140/74 (96) 97 05/29/18 03:04 78 18 100 Facial 30 05/29/18 03:00 82 18 141/90 (107) 100 05/29/18 02:00 75 20 130/99 (109) 100 05/29/18 01:00 35 05/29/18 01:00 78 13 129/83 (98) 100 05/29/18 00:12 73 18 100 Facial 35 05/29/18 00:00 2.0 05/29/18 00:00 81 05/29/18 00:00 Nasal Cannula 2.0 05/29/18 00:00 98.0 82 23 152/99 (116) 100 05/28/18 23:00 82 23 150/91 (110) 100 05/28/18 22:00 81 21 145/109 (121) 100 05/28/18 21:00 81 19 142/73 (96) 100 05/28/18 20:00 98.4 80 9 139/105 (116) 99 05/28/18 20:00 2.0 05/28/18 20:00 Nasal Cannula 2.0 05/28/18 20:00 77 Intake and Output 05/28/18 05/29/18 19:00 07:00 Intake Total 813.334 ml 460.000 ml Output Total 605 ml 1465 ml Balance 208.334 ml -1005.000 ml Intake Oral 480 ml 100 ml IV Total 333.334 ml 360.000 ml Output Urine Total 605 ml 1465 ml # Bowel Movements 5 2 Laboratory Tests 05/29/18 06:03: White Blood Count 10.0, Red Blood Count 5.29, Hemoglobin 13.1, Hematocrit 45.7, Mean Corpuscular Volume 87, Mean Corpuscular Hemoglobin 24.9L, Mean Corpuscular Hemoglobin Concent 28.7L, Red Cell Distribution Width 22.0H, Platelet Count 277 , Mean Platelet Volume 9.0, Neutrophils (%) (Auto) 79.7H, Lymphocytes (%) (Auto ) 13.7L, Monocytes (%) (Auto) 4.3, Eosinophils (%) (Auto) 1.4, Basophils (%) ( Auto) 0.9, Sodium Level 149H, Potassium Level 3.5, Chloride Level 113H, Carbon Dioxide Level 28, Anion Gap 8, Blood Urea Nitrogen 25H, Creatinine 1.1, Estimat Glomerular Filtration Rate > 60, Glucose Level 96, Calcium Level 9.3, Phosphorus Level 3.1, Magnesium Level 1.7L 05/29/18 08:55: Arterial Blood pH 7.296L, Arterial Blood Partial Pressure CO2 59.2*H, Arterial Blood Partial Pressure O2 92.5, Arterial Blood HCO3 28.2H, Arterial Blood Oxygen Saturation 96.5, Arterial Blood Base Excess 0.4, Aditya Test Positive Height (Feet): 5 Height (Inches): 3.00 Weight (Pounds): 321 Margaret Mckinney MD May 29, 2018 19:13
--- NOTE | 2018-05-29 19:31 | NUR ---
HAND-OFF: Report given to Stanford Glass RN.
--- NOTE | 2018-05-29 19:32 | NUR ---
NURSE NOTES: Report received from LUCIO Hernadez .Pt awake,alert to name with periods of confusion, reality orientation provided. Son at bedside. HOB elevated. On oxygen 3L via N/C satting 97%. SR on the monitor HR 80. Bilateral soft restraints on and checked.Anaya intact with dark yellow urine. Call light within easy reach. Safety measures in place with bed locked and in lowest position and side rails x3 up. Will continue to monitor and continue plan of care.
--- NOTE | 2018-05-29 20:23 | NUR ---
NURSE NOTES: Seen and examined by Dr. Wills with new order ABG in am with BIPAP noted and carried out.patient and charge nurse aware.
--- NOTE | 2018-05-29 20:24 | NUR ---
NURSE NOTES: Dr. Wills made aware of ABG result.
[2018-05-29] MEDS: Atorvastatin 20mg tab ORAL SCH (20:28)
--- NOTE | 2018-05-29 22:30 | NUR ---
NURSE NOTES: Bed bath given. Pt with episode of restlessness, pulling BIPAP and IV despite of bilateral wrist restraint. reality orientation provided, encouraged patient to verbalize needs,fears and feelings to staff, talk therapy provided not effective. Will continue to monitor patient. wound care done.
[2018-05-30] VITALS (24 sets, daily range): BP systolic 106–144; BP diastolic 79–108
--- NOTE | 2018-05-30 00:30 | NUR ---
NURSE NOTES: Patient in bed sleeping comfortably. BIPAP on 12/10 Fi02 30% satting 100%. Anaya draining. Repositioned. No s/s of acute distress noted. Will continue plan of care.
--- NOTE | 2018-05-30 01:01 | Cardiology Progress Note ---
Assessment/Plan Assessment/Plan LATE ENTRY NOTE: DOS: May 29, 2018 Time of Encounter: 23:18 1. Acute hypoxic hypercarbic respiratory failure, extubated, now on facial mask oxygen. 2D echocardiography shows normal LV systolic function with a normal left atrial pressure, however e/o right heart failure. 2. Right heart failure, pre-load sensitive, avoid aggressive diuretic use, evidence of RA and RV dilatation and severe RV systolic dysfunction, associated pulmonary HTN, ? type. 3. Paroxysmal atrial fibrillation, currently sinus rhythm. 4. Hypotension likely due to RV failure, resolved, on midodrine, grim prognosis. 5. Slight elevation of troponin I level in this patient most likely due to RV strain/failure. Subjective Subjective Sinus rhythm at rate of 80. On facial O2 with FiO2 of 30%. Objective Last 24 Hour Vital Signs Date Time Temp Pulse Resp B/P (MAP) Pulse Ox O2 Delivery O2 Flow Rate FiO2 05/29/18 23:24 80 21 100 Facial 30 05/29/18 22:00 88 20 135/96 (109) 98 05/29/18 21:00 87 24 134/89 (104) 100 05/29/18 21:00 35 05/29/18 20:40 68 23 99 Facial 30 05/29/18 20:00 97.9 83 19 125/76 (92) 94 05/29/18 20:00 Nasal Cannula 2.0 05/29/18 20:00 2.0 05/29/18 19:00 135/96 05/29/18 19:00 84 20 111/65 (80) 96 05/29/18 18:00 84 20 155/90 (111) 99 05/29/18 17:00 79 18 143/91 (108) 99 05/29/18 16:00 Nasal Cannula 3.0 05/29/18 16:00 3.0 05/29/18 16:00 79 05/29/18 16:00 98.1 81 20 146/90 (108) 99 05/29/18 15:00 77 12 140/117 (125) 100 05/29/18 14:00 75 18 129/88 (102) 99 05/29/18 13:02 72 22 100 Facial 30 05/29/18 13:00 76 17 112/78 (89) 100 05/29/18 12:00 97.5 75 16 99/84 (89) 100 05/29/18 12:00 Bi-pap 05/29/18 12:00 76 05/29/18 12:00 30 05/29/18 11:09 73 26 98 Facial 30 05/29/18 11:00 73 17 119/86 (97) 98 05/29/18 10:00 74 14 156/99 (118) 91 05/29/18 09:21 76 120/83 05/29/18 09:21 120/83 05/29/18 09:20 120/83 05/29/18 09:06 75 19 100 Facial 30 05/29/18 09:00 77 13 120/83 (95) 96 05/29/18 08:00 2.0 05/29/18 08:00 Nasal Cannula 2.0 05/29/18 08:00 97.6 77 19 139/92 (108) 93 05/29/18 08:00 78 05/29/18 07:00 75 16 139/101 (114) 94 05/29/18 06:00 75 18 137/99 (112) 100 05/29/18 05:00 77 18 124/91 (102) 100 05/29/18 04:00 Bi-pap 05/29/18 04:00 78 05/29/18 04:00 97.8 72 21 140/74 (96) 97 05/29/18 03:04 78 18 100 Facial 30 05/29/18 03:00 82 18 141/90 (107) 100 05/29/18 02:00 75 20 130/99 (109) 100 Intake and Output 05/29/18 05/30/18 19:00 07:00 Intake Total 1020.000 ml Output Total 1310 ml 730 ml Balance -290.000 ml -730 ml Intake Oral 460 ml IV Total 560.000 ml Output Urine Total 1310 ml 730 ml # Bowel Movements 1 1 2D Echo: LVEF 55%, D-shaped septum due to RV pressure overload, Massive RA/RV size. Laboratory Tests Test 05/29/18 06:03 05/29/18 08:55 05/30/18 00:20 White Blood Count 10.0 K/UL (4.8-10.8) Red Blood Count 5.29 M/UL (4.20-5.40) Hemoglobin 13.1 G/DL (12.0-16.0) Hematocrit 45.7 % (37.0-47.0) Mean Corpuscular Volume 87 FL (80-99) Mean Corpuscular Hemoglobin 24.9 PG (27.0-31.0) L Mean Corpuscular Hemoglobin Concent 28.7 G/DL (32.0-36.0) L Red Cell Distribution Width 22.0 % (11.6-14.8) H Platelet Count 277 K/UL (150-450) Mean Platelet Volume 9.0 FL (6.5-10.1) Neutrophils (%) (Auto) 79.7 % (45.0-75.0) H Lymphocytes (%) (Auto) 13.7 % (20.0-45.0) L Monocytes (%) (Auto) 4.3 % (1.0-10.0) Eosinophils (%) (Auto) 1.4 % (0.0-3.0) Basophils (%) (Auto) 0.9 % (0.0-2.0) Sodium Level 149 MMOL/L (136-145) H Potassium Level 3.5 MMOL/L (3.5-5.1) Chloride Level 113 MMOL/L (98-107) H Carbon Dioxide Level 28 MMOL/L (21-32) Anion Gap 8 mmol/L (5-15) Blood Urea Nitrogen 25 mg/dL (7-18) H Creatinine 1.1 MG/DL (0.55-1.30) Estimat Glomerular Filtration Rate > 60 mL/min (>60) Glucose Level 96 MG/DL (74-106) Calcium Level 9.3 MG/DL (8.5-10.1) Phosphorus Level 3.1 MG/DL (2.5-4.9) Magnesium Level 1.7 MG/DL (1.8-2.4) L Arterial Blood pH 7.296 (7.350-7.450) Arterial Blood Partial Pressure CO2 59.2 mmHg (35.0-45.0) *H Arterial Blood Partial Pressure O2 92.5 mmHg (75.0-100.0) Arterial Blood HCO3 28.2 mmol/L (22.0-26.0) H Arterial Blood Oxygen Saturation 96.5 % (95-100) Arterial Blood Base Excess 0.4 (-2-2) Aditya Test Positive Vancomycin Level Trough 21.3 ug/mL (5.0-12.0) H Microbiology Date/Time Source Procedure Growth Status 05/27/18 07:15 Arm Left Catheter Tip Culture - Preliminary NO GROWTH Resulted Objective HEENT: Atraumatic and normocephalic. Anicteric. Pupils are equal, round, and reactive to light and accommodation. Extraocular muscles intact. NECK: JVP ~20 cm, No carotid bruit. Carotid upstroke is 2+ bilaterally. CVS: Normal S1 and S2. Regular rate and rhythm. RV heave, No murmurs, gallops , or rubs. LUNGS: Diminished breath sounds in both lungs with rhonchi bilaterally. ABDOMEN: Soft, nontender, and nondistended. No hepatosplenomegaly. Positive bowel sounds. EXTREMITIES: No evidence of edema, clubbing, or cyanosis. There is venous stasis of lower extremities with associated ulceration. Justice Erickson MD May 30, 2018 01:01
--- NOTE | 2018-05-30 02:30 | NUR ---
NURSE NOTES: Vanco trough 21.3 new Vanco dose 1.5 gram.
[2018-05-30] MEDS: Vancomycin 1.5gm/D5W 275ml IVPB SCH (02:57)
--- NOTE | 2018-05-30 04:30 | NUR ---
NURSE NOTES: Patient in bed sleeping comfortably. BIPAP on 12/10 Fi02 30% satting 100%. Anaya draining. Repositioned. No s/s of acute distress noted. No s/s of hypo/hyperglycemia. Will continue plan of care.
[2018-05-30] MEDS: Aztreonam Inj 2 GM in D5W 110 ML IVPB SCH ×3 (04:58→20:23)
[2018-05-30] MEDS: NovoLOG Insulin Flexpen SUBQ SCH ×4 (06:30→20:43)
--- NOTE | 2018-05-30 07:00 | NUR ---
Received Patient on bipap 18/6 30% FIO2 BUR 16. Patient on facial mask and tolerating bipap well. Will continue to monitor throughout the day.
--- NOTE | 2018-05-30 07:20 | NUR ---
HAND-OFF: Report given to Tenisha Koroma RN.
--- NOTE | 2018-05-30 07:21 | NUR ---
NURSE NOTES: Report received from LUCIO Singh. Pt is awake resting in bed. Confused at times. On bilateral soft wrist restraints. Sinus rhythm on teletypesetter monitor. On Bi-pap 18/6, 30%. No respiratory distress noted. Anaya in place draining to gravity. Bilateral lower extremities dressing patent and asymptomatic. Generalized edema noted. Bilateral legs and feet edematous, warm to touch. Pulse present by palpation. IV to left hand G22 patent, asymptomatic, and saline locked. Pt is on bariatric bed. Bed in lowest position. Side rails up x3. Will resume plan of care.
--- NOTE | 2018-05-30 07:47 | NUR ---
NURSE NOTES: Notified Dr Wills regarding ABG result. Pt has been on Bipap since 2099. with /, 30%. Order to transfer to [facility] received, noted, and carried out. Notified charge nurse.
--- NOTE | 2018-05-30 08:46 | General Progress Note ---
Assessment/Plan Problem List: (1) Leukocytosis (leucocytosis) ICD Codes: D72.829 - Elevated white blood cell count, unspecified SNOMED: 795565354, 864236270 (2) Elevated transaminase level ICD Codes: R74.0 - Nonspecific elevation of levels of transaminase and lactic acid dehydrogenase [LDH] SNOMED: 018115066 (3) HTN (hypertension) ICD Codes: I10 - HTN (hypertension) SNOMED: 85791649 (4) COPD (chronic obstructive pulmonary disease) ICD Codes: J44.9 - Chronic obstructive pulmonary disease, unspecified SNOMED: 40833459 (5) DM (diabetes mellitus) ICD Codes: E11.9 - DM (diabetes mellitus) SNOMED: 48497283 Assessment/Plan OB stool negative x2 stable H&H generalized anasarca hepatitis panel negative abdominal US reviewed >> - Ascites - Borderline hepatomegaly - Thick-walled gallbladder, likely in part artifact of nondistention, and in part due to hemodynamic factors causing the ascites. No definite gallstones. Acute cholecystitis not completely excludable, due to the wall thickening, and hepatobiliary scan should be considered if there is high clinical suspicion for such. - Negative for dilated ducts - To and fro flow within the main portal vein, could indicate portal hypertension on cardiac diet cont lactulose prn transfusions bowel regime ppi fu labs had multiple bmsstill on BIPAP will decrease laxatives Subjective ROS Limited/Unobtainable: Yes Allergies: Coded Allergies: ASPIRIN (Verified Allergy, Intermediate, Hives, 01/06/13) PENICILLINS (Verified Allergy, Intermediate, Hives, 01/06/13) Objective Last 24 Hour Vital Signs Date Time Temp Pulse Resp B/P (MAP) Pulse Ox O2 Delivery O2 Flow Rate FiO2 05/30/18 07:09 73 17 98 Facial 30 05/30/18 07:00 74 12 132/88 (103) 100 05/30/18 06:00 77 18 123/100 (108) 100 05/30/18 05:03 75 16 100 Facial 30 05/30/18 05:00 71 13 106/89 (95) 100 05/30/18 04:00 Bi-pap 05/30/18 04:00 98.0 73 12 141/108 (119) 100 05/30/18 04:00 30 05/30/18 04:00 74 05/30/18 03:22 81 16 100 Facial 30 05/30/18 03:00 75 15 129/100 (110) 99 05/30/18 02:00 79 16 135/84 (101) 99 05/30/18 01:00 78 17 141/80 (100) 100 05/30/18 01:00 75 16 100 Facial 30 05/30/18 00:00 97.9 80 16 144/85 (104) 100 05/30/18 00:00 78 05/30/18 00:00 Bi-pap 05/29/18 23:24 80 21 100 Facial 30 05/29/18 23:00 79 16 136/103 (114) 100 05/29/18 22:00 88 20 135/96 (109) 98 05/29/18 21:00 87 24 134/89 (104) 100 05/29/18 21:00 30 05/29/18 20:40 68 23 99 Facial 30 05/29/18 20:00 97.9 83 19 125/76 (92) 94 05/29/18 20:00 80 05/29/18 20:00 Nasal Cannula 2.0 05/29/18 20:00 2.0 05/29/18 19:00 135/96 05/29/18 19:00 84 20 111/65 (80) 96 05/29/18 18:00 84 20 155/90 (111) 99 05/29/18 17:00 79 18 143/91 (108) 99 05/29/18 16:00 Nasal Cannula 3.0 05/29/18 16:00 3.0 05/29/18 16:00 79 05/29/18 16:00 98.1 81 20 146/90 (108) 99 05/29/18 15:00 77 12 140/117 (125) 100 05/29/18 14:00 75 18 129/88 (102) 99 05/29/18 13:02 72 22 100 Facial 30 05/29/18 13:00 76 17 112/78 (89) 100 05/29/18 12:00 97.5 75 16 99/84 (89) 100 05/29/18 12:00 Bi-pap 05/29/18 12:00 76 05/29/18 12:00 30 05/29/18 11:09 73 26 98 Facial 30 05/29/18 11:00 73 17 119/86 (97) 98 05/29/18 10:00 74 14 156/99 (118) 91 05/29/18 09:21 76 120/83 05/29/18 09:21 120/83 05/29/18 09:20 120/83 05/29/18 09:06 75 19 100 Facial 30 05/29/18 09:00 77 13 120/83 (95) 96 Intake and Output 05/29/18 05/30/18 19:00 07:00 Intake Total 1020.000 ml 495.0 ml Output Total 1310 ml 1570 ml Balance -290.000 ml -1075.0 ml Intake Oral 460 ml IV Total 560.000 ml 495.0 ml Output Urine Total 1310 ml 1570 ml # Bowel Movements 1 4 Laboratory Tests 05/29/18 08:55: Arterial Blood pH 7.296L, Arterial Blood Partial Pressure CO2 59.2*H, Arterial Blood Partial Pressure O2 92.5, Arterial Blood HCO3 28.2H, Arterial Blood Oxygen Saturation 96.5, Arterial Blood Base Excess 0.4, Aditya Test Positive 05/30/18 00:20: Vancomycin Level Trough 21.3H 05/30/18 07:35: Arterial Blood pH 7.357, Arterial Blood Partial Pressure CO2 51.4H, Arterial Blood Partial Pressure O2 86.1, Arterial Blood HCO3 28.2H, Arterial Blood Oxygen Saturation 96.2, Arterial Blood Base Excess 1.8, Aditya Test Positive Height (Feet): 5 Height (Inches): 3.00 Weight (Pounds): 322 General Appearance: alert EENT: normal ENT inspection Neck: supple Cardiovascular: normal rate Respiratory/Chest: decreased breath sounds Abdomen: normal bowel sounds, non tender, soft Extremities: non-tender Robert Paul MD May 30, 2018 08:46
[2018-05-30] MEDS: Ascorbic Acid 500mg tab NG SCH ×2 (08:56→17:21)
[2018-05-30] MEDS: Lisinopril 2.5mg tab ORAL SCH (08:57)
[2018-05-30] MEDS: Nitroglycerin Patch 0.4mg TDERMAL SCH (08:58)
[2018-05-30] MEDS: Betadine 4oz Bottle TOPIC SCH ×2 (08:58→17:21)
[2018-05-30] MEDS: Pantoprazole Inj IVP SCH (08:58)
--- NOTE | 2018-05-30 09:30 | NUR ---
NURSE NOTES: Repositioned pt. Fed 1:1 with breakfast. Pt had 15%, mostly thickened fluid. Pt is tolerating Bi-pap. Oral care done.
[2018-05-30] MEDS ORDERED: Tubing IV Secondary IV ONE ×2 (10:42→10:45)
[2018-05-30] MEDS ORDERED: NS 275ml ONE (10:45)
--- NOTE | 2018-05-30 10:55 | NUR ---
RD ASSESSMENT & RECOMMENDATIONS SEE CARE ACTIVITY FOR COMPLETE ASSESSMENT DAILY ESTIMATED NEEDS: Needs based on Pulmonary, wounds, DM, morbid obesity (71.5kg abw) 20-25 kcals/kg [id number] total kcals 1.25-1.5 g protein/kg 89-107 g total protein Fluid per MD, on lasix. NUTRITION DIAGNOSIS: 1) Increased protein needs r/t wound healing as evidenced by pt w/ chronic LLE ulcers. 2) Morbid obesity R/T excessive energy intake as evidenced by BMI>50 per guidelines. 3) Swallowing difficulty r/t respiratory status as evidenced by s/p extubation, recs for puree and NTL by DIRECTOR OF INCOME TAX. (UPDATED) CURRENT DIET: Cardiac ms chopped w/ NTL PO DIET RECOMMENDATIONS: DIRECTOR OF INCOME TAX eval s/p extubation-> CARDIAC/ texture per DIRECTOR OF INCOME TAX ADDITIONAL RECOMMENDATIONS: 1) RE-calibrate bed scale (wts per EMR: 200#, 316#, 341#) 2) Wound care: add NELY BID + MVI x1 + Vit C 250mg daily 3) Monitor lytes, replete as needed (low Mg) 4) DIRECTOR OF INCOME TAX eval post extubation for appropriate texture- recs for puree, NTL 5) Monitor PO intake w/ BG, need for carb control diet 6) Add ENSURE BID w/ con't poor po intake .
--- NOTE | 2018-05-30 11:04 | General Progress Note ---
Assessment/Plan Assessment/Plan S, O: status post self-Extubation, PICC line in place, patient awake, following commands. limited exam PHYSICAL EXAMINATION: HEAD AND NECK: Atraumatic and normocephalic. CHEST: Diffuse bronchial breathing sounds. Overall decreased breathing sounds. ABDOMEN: Grossly morbidly obese. Limited evaluation. MUSCULOSKELETAL: Positive for ulcers and wounds, more diffusely edematous about 2+, superficial wounds on both legs , dressed . NEUROLOGIC: The patient is awake , follow commands . limited exam, Meds: Reviewed and reconciled. CXR dated 05/22/18 : reviewed ASSESSMENT: 1.Hypercapnic Vent Dependent Respiratory failure: S/P self-extubation 2. shock, ddx: septic vs cardiogenic : Resolved 3. CHF exacerbation, right sided, preserved EF 3. Acute/Chronic Renal F 4. Abnormal Trop: NSTEMI vs Leakage 3. UTI/lower extremity infection Hypertension. 4. Diabetes type 2, controlled with A1c of 6.3. 5. Pain management. 6. PAH 7. 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 HyperNatremia 6. GI and DVT prophylaxis. PLAN OF CARE: Guarded prognosis Off pressor, preserved BP Empirical abx, per ID Will Followup with pulmonary for post - Self- extubation care, C/w lasix, will titrate according to BP patient and the Son advised intermediate care at discharge, however insisting to go home, once medically stable Subjective Allergies: Coded Allergies: ASPIRIN (Verified Allergy, Intermediate, Hives, 01/06/13) PENICILLINS (Verified Allergy, Intermediate, Hives, 01/06/13) Objective Last 24 Hour Vital Signs Date Time Temp Pulse Resp B/P (MAP) Pulse Ox O2 Delivery O2 Flow Rate FiO2 05/30/18 10:00 76 14 123/79 (94) 100 05/30/18 09:00 75 14 134/94 (107) 100 05/30/18 08:58 131/79 05/30/18 08:57 75 131/97 05/30/18 08:57 131/97 05/30/18 08:00 Bi-pap 05/30/18 08:00 73 17 131/97 (108) 100 05/30/18 08:00 30 05/30/18 07:58 73 05/30/18 07:09 73 17 98 Facial 30 05/30/18 07:00 74 12 132/88 (103) 100 05/30/18 06:00 77 18 123/100 (108) 100 05/30/18 05:03 75 16 100 Facial 30 05/30/18 05:00 71 13 106/89 (95) 100 05/30/18 04:00 Bi-pap 05/30/18 04:00 98.0 73 12 141/108 (119) 100 05/30/18 04:00 30 05/30/18 04:00 74 05/30/18 03:22 81 16 100 Facial 30 05/30/18 03:00 75 15 129/100 (110) 99 05/30/18 02:00 79 16 135/84 (101) 99 05/30/18 01:00 78 17 141/80 (100) 100 05/30/18 01:00 75 16 100 Facial 30 05/30/18 00:00 97.9 80 16 144/85 (104) 100 05/30/18 00:00 78 05/30/18 00:00 Bi-pap 05/29/18 23:24 80 21 100 Facial 30 05/29/18 23:00 79 16 136/103 (114) 100 05/29/18 22:00 88 20 135/96 (109) 98 05/29/18 21:00 87 24 134/89 (104) 100 05/29/18 21:00 30 05/29/18 20:40 68 23 99 Facial 30 05/29/18 20:00 97.9 83 19 125/76 (92) 94 05/29/18 20:00 80 05/29/18 20:00 Nasal Cannula 2.0 05/29/18 20:00 2.0 05/29/18 19:00 135/96 05/29/18 19:00 84 20 111/65 (80) 96 05/29/18 18:00 84 20 155/90 (111) 99 05/29/18 17:00 79 18 143/91 (108) 99 05/29/18 16:00 Nasal Cannula 3.0 05/29/18 16:00 3.0 05/29/18 16:00 79 05/29/18 16:00 98.1 81 20 146/90 (108) 99 05/29/18 15:00 77 12 140/117 (125) 100 05/29/18 14:00 75 18 129/88 (102) 99 05/29/18 13:02 72 22 100 Facial 30 05/29/18 13:00 76 17 112/78 (89) 100 05/29/18 12:00 97.5 75 16 99/84 (89) 100 05/29/18 12:00 Bi-pap 05/29/18 12:00 76 05/29/18 12:00 30 05/29/18 11:09 73 26 98 Facial 30 Intake and Output 05/29/18 05/30/18 18:59 06:59 Intake Total 1020.000 ml 495.0 ml Output Total 1310 ml 1570 ml Balance -290.000 ml -1075.0 ml Intake Oral 460 ml IV Total 560.000 ml 495.0 ml Output Urine Total 1310 ml 1570 ml # Bowel Movements 1 4 Laboratory Tests 05/30/18 00:20: Vancomycin Level Trough 21.3H 05/30/18 07:35: Arterial Blood pH 7.357, Arterial Blood Partial Pressure CO2 51.4H, Arterial Blood Partial Pressure O2 86.1, Arterial Blood HCO3 28.2H, Arterial Blood Oxygen Saturation 96.2, Arterial Blood Base Excess 1.8, Aditya Test Positive Height (Feet): 5 Height (Inches): 3.00 Weight (Pounds): 322 Margaret Mckinney MD May 30, 2018 11:04
--- NOTE | 2018-05-30 12:30 | NUR ---
NURSE NOTES: Turned and repositioned pt. Fed pt lunch with thickened apple juice. Pt is on Bi-pap with same setting. O2 sat 100%. No acute distress noted.
--- NOTE | 2018-05-30 13:41 | Nephrology Progress Note ---
Assessment/Plan Problem List: (1) ARF (acute renal failure) (2) Cellulitis of both lower extremities (3) Venous stasis ulcers of both lower extremities (4) DM (diabetes mellitus) (5) CKD (chronic kidney disease) (6) Morbid (severe) obesity due to excess calories (7) Acute hypoxemic respiratory failure Assessment extubated on bipap as needed- Diabetic Nephropathy Cr lower acute renal failure super imposed on CKD Encephalopathy, CO2 retainer, respiratory failure acute Obesity High Trop High Bili UTI Bilateral LE cellulitis Anemia Plan no labs today pulmonary support, post extubation Zestril and Norvasc for high bp to step down unit ? 24 h urine crcl 29 cc 24 h protein 0.6 gr pressors as needed Avoid nephrotoxics monitor renal parameters 2D echo Ej Fx 55% kidney WESLEY no pathology reported Per ID , Pulm... meds IV or OG tube Avoid mind altering meds per orders Subjective ROS Limited/Unobtainable: No Subjective ALOC periodically Objective Objective Last 24 Hour Vital Signs Date Time Temp Pulse Resp B/P (MAP) Pulse Ox O2 Delivery O2 Flow Rate FiO2 05/30/18 13:36 81 17 99 Facial 30 05/30/18 13:00 78 15 127/95 (106) 100 05/30/18 12:00 97.5 77 14 127/95 (106) 99 05/30/18 12:00 Bi-pap 05/30/18 12:00 30 05/30/18 11:14 81 16 99 Facial 30 05/30/18 11:00 82 14 113/90 (98) 99 05/30/18 10:00 76 14 123/79 (94) 100 05/30/18 09:00 75 14 134/94 (107) 100 05/30/18 08:58 131/79 05/30/18 08:57 75 131/97 05/30/18 08:57 131/97 05/30/18 08:00 Bi-pap 05/30/18 08:00 73 17 131/97 (108) 100 05/30/18 08:00 30 05/30/18 07:58 73 05/30/18 07:09 73 17 98 Facial 30 05/30/18 07:00 74 12 132/88 (103) 100 05/30/18 06:00 77 18 123/100 (108) 100 05/30/18 05:03 75 16 100 Facial 30 05/30/18 05:00 71 13 106/89 (95) 100 05/30/18 04:00 Bi-pap 05/30/18 04:00 98.0 73 12 141/108 (119) 100 05/30/18 04:00 30 05/30/18 04:00 74 05/30/18 03:22 81 16 100 Facial 30 05/30/18 03:00 75 15 129/100 (110) 99 05/30/18 02:00 79 16 135/84 (101) 99 05/30/18 01:00 78 17 141/80 (100) 100 05/30/18 01:00 75 16 100 Facial 30 05/30/18 00:00 97.9 80 16 144/85 (104) 100 05/30/18 00:00 78 05/30/18 00:00 Bi-pap 05/29/18 23:24 80 21 100 Facial 30 05/29/18 23:00 79 16 136/103 (114) 100 05/29/18 22:00 88 20 135/96 (109) 98 05/29/18 21:00 87 24 134/89 (104) 100 05/29/18 21:00 30 05/29/18 20:40 68 23 99 Facial 30 05/29/18 20:00 97.9 83 19 125/76 (92) 94 05/29/18 20:00 80 05/29/18 20:00 Nasal Cannula 2.0 05/29/18 20:00 2.0 05/29/18 19:00 135/96 05/29/18 19:00 84 20 111/65 (80) 96 05/29/18 18:00 84 20 155/90 (111) 99 05/29/18 17:00 79 18 143/91 (108) 99 05/29/18 16:00 Nasal Cannula 3.0 05/29/18 16:00 3.0 05/29/18 16:00 79 05/29/18 16:00 98.1 81 20 146/90 (108) 99 05/29/18 15:00 77 12 140/117 (125) 100 05/29/18 14:00 75 18 129/88 (102) 99 Intake and Output 05/29/18 05/30/18 18:59 06:59 Intake Total 1020.000 ml 495.0 ml Output Total 1310 ml 1570 ml Balance -290.000 ml -1075.0 ml Intake Oral 460 ml IV Total 560.000 ml 495.0 ml Output Urine Total 1310 ml 1570 ml # Bowel Movements 1 4 Laboratory Tests 05/30/18 00:20: Vancomycin Level Trough 21.3H 05/30/18 07:35: Arterial Blood pH 7.357, Arterial Blood Partial Pressure CO2 51.4H, Arterial Blood Partial Pressure O2 86.1, Arterial Blood HCO3 28.2H, Arterial Blood Oxygen Saturation 96.2, Arterial Blood Base Excess 1.8, Aditya Test Positive Height (Feet): 5 Height (Inches): 3.00 Weight (Pounds): 322 EENT: other - on bipap Cardiovascular: normal rate Respiratory/Chest: decreased breath sounds Abdomen: soft Objective no change Tr Strange MD May 30, 2018 13:41
--- NOTE | 2018-05-30 14:00 | Infectious Diseases Prog Note ---
Assessment/Plan Problems: (1) VAP (ventilator-associated pneumonia) Assessment & Plan: with coag negative staphylococcus and proteus mirabilis , already on vancomycin and aztreonam for two weeks . recommend aspiration precaution . (2) Bacteremia due to Enterococcus Assessment & Plan: due to enterococcus faecalis suspect picc line related blood stream infection , PICC line was removed . continue vancomycin renally dosed as per pharmacy for two weeks. EOT 06/09/18 (3) Bilateral lower leg cellulitis Assessment & Plan: wound culture grew klibsella oxytoca, and Sphingomonas paucimobilis , continue vancomycin and aztreonam empirically with local wounds care . await on bone scan of both legs once clinically stable . (4) Nonhealing ulcer of left lower extremity Assessment & Plan: wound culture grew klebsiella oxytoca and Sphingomonas paucimobilis, now on aztreonam and vancomycin , continue local wound care and dressings change as per wound care service as per plastic surgery recommendations (5) CKD (chronic kidney disease) Assessment & Plan: avoid nephrotoxics , renally dosed antibiotics as per pharmacy (6) DM (diabetes mellitus) Assessment & Plan: recommend tight glycemic control to keep blood glucose between 100-140 (7) Acute encephalopathy Assessment & Plan: suspect metabolic with high ammonia level, continue lactulose , consult neurology if no improvement (8) Acute hypoxemic respiratory failure Assessment & Plan: due to the above , self extubated , now on NASAL CANULA , and BIPAP prn . pulmonary is following, Subjective Constitutional: Reports: no symptoms HEENT: Reports: no symptoms Respiratory: Reports: dry cough Breasts: Reports: no symptoms Cardiovascular: Reports: no symptoms Gastrointestinal/Abdominal: Reports: no symptoms Genitourinary: Reports: no symptoms Neurologic: Reports: no symptoms Psychiatric: Reports: no symptoms Skin: Reports: no symptoms Endocrine: Reports: no symptoms Hematologic: Reports: no symptoms Musculoskeletal: Reports: no symptoms Allergies: Coded Allergies: ASPIRIN (Verified Allergy, Intermediate, Hives, 01/06/13) PENICILLINS (Verified Allergy, Intermediate, Hives, 01/06/13) Subjective she was on BIPAP earlier , but improved now on nasal canula , comfortable, afebrile, denied any fever or chills. Objective Vital Signs Last 24 Hour Vital Signs Date Time Temp Pulse Resp B/P (MAP) Pulse Ox O2 Delivery O2 Flow Rate FiO2 2/3/19 13:36 81 17 99 Facial 30 05/30/18 13:00 78 15 127/95 (106) 100 05/30/18 12:00 84 05/30/18 12:00 97.5 77 14 127/95 (106) 99 05/30/18 12:00 Bi-pap 05/30/18 12:00 30 05/30/18 11:14 81 16 99 Facial 30 05/30/18 11:00 82 14 113/90 (98) 99 05/30/18 10:00 76 14 123/79 (94) 100 05/30/18 09:00 75 14 134/94 (107) 100 05/30/18 08:58 131/79 05/30/18 08:57 75 131/97 05/30/18 08:57 131/97 05/30/18 08:00 Bi-pap 05/30/18 08:00 73 17 131/97 (108) 100 05/30/18 08:00 30 05/30/18 07:58 73 05/30/18 07:09 73 17 98 Facial 30 05/30/18 07:00 74 12 132/88 (103) 100 05/30/18 06:00 77 18 123/100 (108) 100 05/30/18 05:03 75 16 100 Facial 30 05/30/18 05:00 71 13 106/89 (95) 100 05/30/18 04:00 Bi-pap 05/30/18 04:00 98.0 73 12 141/108 (119) 100 05/30/18 04:00 30 05/30/18 04:00 74 05/30/18 03:22 81 16 100 Facial 30 05/30/18 03:00 75 15 129/100 (110) 99 05/30/18 02:00 79 16 135/84 (101) 99 05/30/18 01:00 78 17 141/80 (100) 100 05/30/18 01:00 75 16 100 Facial 30 05/30/18 00:00 97.9 80 16 144/85 (104) 100 05/30/18 00:00 78 05/30/18 00:00 Bi-pap 05/29/18 23:24 80 21 100 Facial 30 05/29/18 23:00 79 16 136/103 (114) 100 05/29/18 22:00 88 20 135/96 (109) 98 05/29/18 21:00 87 24 134/89 (104) 100 05/29/18 21:00 30 05/29/18 20:40 68 23 99 Facial 30 05/29/18 20:00 97.9 83 19 125/76 (92) 94 05/29/18 20:00 80 05/29/18 20:00 Nasal Cannula 2.0 05/29/18 20:00 2.0 05/29/18 19:00 135/96 05/29/18 19:00 84 20 111/65 (80) 96 05/29/18 18:00 84 20 155/90 (111) 99 05/29/18 17:00 79 18 143/91 (108) 99 05/29/18 16:00 Nasal Cannula 3.0 05/29/18 16:00 3.0 05/29/18 16:00 79 05/29/18 16:00 98.1 81 20 146/90 (108) 99 05/29/18 15:00 77 12 140/117 (125) 100 05/29/18 14:00 75 18 129/88 (102) 99 Height (Feet): 5 Height (Inches): 3.00 Weight (Pounds): 322 General Appearance: WD/WN, no acute distress HEENT: normocephalic, atraumatic, anicteric, mucous membranes moist, PERRL Respiratory/Chest: chest wall non-tender, lungs clear, normal breath sounds, no respiratory distress, no accessory muscle use Cardiovascular: normal peripheral pulses, normal rate, regular rhythm, no gallop/murmur, no JVD Abdomen: normal bowel sounds, soft, non tender, no organomegaly, non distended , no mass, no scars Extremities: no cyanosis, no clubbing Skin: no rash, no lesions, ulcers Neurologic/Psychiatric: alert, oriented x 3, responsive Lymphatic: no neck adenopathy, no groin adenopathy Musculoskeletal: normal muscle bulk, no effusion Laboratory Tests Test 05/30/18 00:20 05/30/18 02:00 05/30/18 07:35 Vancomycin Level Trough 21.3 ug/mL (5.0-12.0) H C-Reactive Protein, Quantitative Pending Arterial Blood pH 7.357 (7.350-7.450) Arterial Blood Partial Pressure CO2 51.4 mmHg (35.0-45.0) H Arterial Blood Partial Pressure O2 86.1 mmHg (75.0-100.0) Arterial Blood HCO3 28.2 mmol/L (22.0-26.0) H Arterial Blood Oxygen Saturation 96.2 % (95-100) Arterial Blood Base Excess 1.8 (-2-2) Aditya Test Positive Current Medications Medications (Trade) Dose Ordered Sig/Toya Route PRN Reason Start Time Stop Time Status Last Admin Dose Admin Allopurinol (Allopurinol) 300 mg DAILY NG 05/19/18 13:00 06/18/18 12:59 05/30/18 08:57 Amlodipine Besylate (Norvasc) 2.5 mg DAILY ORAL 05/27/18 10:06 06/26/18 10:05 05/30/18 08:57 Ascorbic Acid (Vitamin C) 500 mg TWICE A DAY NG 05/18/18 09:00 06/15/18 17:59 05/30/18 08:56 Atorvastatin Calcium (Lipitor) 20 mg BEDTIME ORAL 05/17/18 21:00 06/13/18 20:59 05/29/18 20:28 Aztreonam 2 gm/ Dextrose 110 ml @ 220 mls/hr Q8H IVPB 05/29/18 04:00 06/05/18 03:59 05/30/18 11:26 Clopidogrel Bisulfate (Plavix) 75 mg DAILY NG 05/18/18 09:00 06/14/18 08:59 05/30/18 08:56 Dextrose (Dextrose 50%) 25 ml Q30M PRN IV Hypoglycemia 05/13/18 21:00 06/11/18 16:59 Dextrose (Dextrose 50%) 50 ml Q30M PRN IV Hypoglycemia 05/13/18 21:00 06/11/18 16:59 Dopamine HCl/ Dextrose 250 ml @ 0 mls/hr Q24H IV 05/15/18 19:00 06/14/18 18:59 05/16/18 18:05 Furosemide (Lasix) 20 mg Q12HR IV 05/26/18 21:00 06/23/18 16:03 05/30/18 08:56 Insulin Aspart (NovoLOG) AC+HS SUBQ 05/29/18 16:49 06/11/18 12:59 Lisinopril (Zestril) 5 mg DAILY ORAL 05/26/18 15:45 06/25/18 15:44 05/30/18 08:57 Multivitamins (Multivitamins) 1 tab DAILY ORAL 05/18/18 09:00 06/16/18 08:59 05/30/18 08:58 Nitroglycerin (Ntg) 1 patch Q24H TDERMAL 05/15/18 09:00 06/14/18 08:59 05/30/18 08:58 Pantoprazole (Protonix) 40 mg DAILY IVP 05/26/18 09:00 06/13/18 20:59 05/30/18 08:58 Povidone Iodine (Betadine Gretchen) 1 applic BID TOPIC 05/16/18 09:00 06/15/18 08:59 05/30/18 08:58 Sodium Chloride 500 ml @ 999 mls/hr Q31M PRN IV For hypotension 05/14/18 01:30 06/13/18 01:29 05/21/18 19:22 Vancomycin HCl (Vanco rx to dose) 1 ea DAILY PRN MISC Per rx protocol 05/23/18 17:30 06/22/18 17:29 Vancomycin HCl/ Dextrose 275 ml @ 137.5 mls/ hr Q24H IVPB 05/30/18 02:00 06/04/18 01:59 05/30/18 02:57 Juice Wilkerson M.D. May 30, 2018 14:00
--- NOTE | 2018-05-30 14:30 | NUR ---
NURSE NOTES: Placed N/C 3L by RT. O2 sat 92-95%. Bi-pap kept standby.
--- NOTE | 2018-05-30 15:00 | NUR ---
NURSE NOTES: Cleaned pt for moderate amount of brown loose BM. Turned and repositioned pt. Will continue to monitor.
--- NOTE | 2018-05-30 17:24 | NUR ---
NURSE NOTES: Fed patient with thickened apple sauce and jello. No coughing noted. Pt refused other food from the tray. Pt is on N/C 3L. O2 sat 100%. No acute distress or respiratory distress noted.
--- NOTE | 2018-05-30 17:27 | Pulmonolgy Critical Care Note ---
Critical Care - Asmt/Plan Assessment/Plan: Pulmonary Progress Note Assessment/Plan: 67 y/o female w/ DM, CKD, morbid obesity admitted with b/l LE cellulitis and altered mental status. Problem List: 1. Altered mental status 2. Acute hypercapnic respiratory failure -intubated 05/15 -self-extubated 05/24, no BiPAP PRN, ABG improving 3. Bilateral lower extremity cellulitis on AB 4. RACHELLE on CKD 5. DM 6. Morbid obesity 7. Elevated ammonia level 8. RV failure 9. Acute diastolic Congestive heart failure 10. 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 HR/BP Renal: F/U I&O Infectious Disease: continue antibiotics Time Spent (Minutes): 40 - CC Notes Reviewed: otologist, renal, ID Discussed with: nurses Critical Care - Objective Vital Signs Noted Status: awake Condition: improving Lungs: rales Heart: HR/BP stable Abdomen: soft, non-tender Extremities: edema Micro: Microbiology Date/Time Source Procedure Growth Status 05/24/18 18:00 Foot Right Gram Stain - Final Resulted 05/24/18 18:00 Wound Culture - Preliminary Staphylococcus Species Yeast Species Gram Negative Josesito Diphtheroids Resulted Accucheck: 104 Critical Care - Subjective ROS Limited/Unobtainable: Yes Interval Events: BiPAP overnight and VBG shows improvement. Pulled out PICC line which was infected anyway. Seems calmer and more cooperative but in restraints Condition: improving EKG Rhythm: Sinus Rhythm FI02: 35 Sputum Amount: None Critical Care - Objective Last 24 Hour Vital Signs Date Time Temp Pulse Resp B/P (MAP) Pulse Ox O2 Delivery O2 Flow Rate FiO2 05/30/18 17:00 79 14 135/84 (101) 100 05/30/18 16:00 81 16 129/92 (104) 100 05/30/18 16:00 Bi-pap 05/30/18 15:00 83 25 127/96 (106) 100 05/30/18 14:30 3.0 05/30/18 14:00 81 15 133/92 (106) 100 05/30/18 13:36 81 17 99 Facial 30 05/30/18 13:00 78 15 127/95 (106) 100 05/30/18 12:00 84 05/30/18 12:00 97.5 77 14 127/95 (106) 99 05/30/18 12:00 Bi-pap 05/30/18 12:00 30 05/30/18 11:14 81 16 99 Facial 30 05/30/18 11:00 82 14 113/90 (98) 99 05/30/18 10:00 76 14 123/79 (94) 100 05/30/18 09:00 75 14 134/94 (107) 100 05/30/18 08:58 131/79 05/30/18 08:57 75 131/97 05/30/18 08:57 131/97 05/30/18 08:00 Bi-pap 05/30/18 08:00 73 17 131/97 (108) 100 05/30/18 08:00 30 05/30/18 07:58 73 05/30/18 07:09 73 17 98 Facial 30 05/30/18 07:00 74 12 132/88 (103) 100 05/30/18 06:00 77 18 123/100 (108) 100 05/30/18 05:03 75 16 100 Facial 30 05/30/18 05:00 71 13 106/89 (95) 100 05/30/18 04:00 Bi-pap 05/30/18 04:00 98.0 73 12 141/108 (119) 100 05/30/18 04:00 30 05/30/18 04:00 74 05/30/18 03:22 81 16 100 Facial 30 05/30/18 03:00 75 15 129/100 (110) 99 05/30/18 02:00 79 16 135/84 (101) 99 05/30/18 01:00 78 17 141/80 (100) 100 05/30/18 01:00 75 16 100 Facial 30 05/30/18 00:00 97.9 80 16 144/85 (104) 100 05/30/18 00:00 78 05/30/18 00:00 Bi-pap 05/29/18 23:24 80 21 100 Facial 30 05/29/18 23:00 79 16 136/103 (114) 100 05/29/18 22:00 88 20 135/96 (109) 98 05/29/18 21:00 87 24 134/89 (104) 100 05/29/18 21:00 30 05/29/18 20:40 68 23 99 Facial 30 05/29/18 20:00 97.9 83 19 125/76 (92) 94 05/29/18 20:00 80 05/29/18 20:00 Nasal Cannula 2.0 05/29/18 20:00 2.0 05/29/18 19:00 135/96 05/29/18 19:00 84 20 111/65 (80) 96 05/29/18 18:00 84 20 155/90 (111) 99 Accucheck: 86 Critical Care - Subjective ROS Limited/Unobtainable: No FI02: 30 Vent Support Mode: BiLevel Sputum Amount: None I&O: Intake and Output 05/29/18 05/30/18 19:00 07:00 Intake Total 1020.000 ml 495.0 ml Output Total 1310 ml 1570 ml Balance -290.000 ml -1075.0 ml Intake Oral 460 ml IV Total 560.000 ml 495.0 ml Output Urine Total 1310 ml 1570 ml # Bowel Movements 1 4 Lawrence Wills MD May 30, 2018 17:27
[2018-05-30] MEDS: DOPamine 400mg/250ml 250 ML IV SCH (19:00)
--- NOTE | 2018-05-30 19:20 | NUR ---
HAND-OFF: Report given to Juancho Reid RN.
--- NOTE | 2018-05-30 19:50 | NUR ---
NURSE NOTES: Patient alert, oriented x2, confused to time, situation at this time, respiration regular, on o2 3lpm via NC, O2 saturation 99% noted, abdomen soft, large, no bowel movement status, F/C intact and patent, light yung color urine outed, peripheral line to left hand, intact and patent, on big boy bed, 2 point soft restraints for safety status, lower bed position, provided call light within reach, will continue to monitor.
[2018-05-30] MEDS: Atorvastatin 20mg tab ORAL SCH (20:43)
--- NOTE | 2018-05-30 21:05 | NUR ---
NURSE NOTES: Seen the patient by Dr. Wills, no new order status.
--- NOTE | 2018-05-30 21:52 | NUR ---
NURSE NOTES: Patient self talking status, cough with discharge and self expectorated, will continue to monitor.
--- NOTE | 2018-05-30 23:10 | NUR ---
NURSE NOTES: Changed BIPAP I/E 12/10, rate 16/fio2 30% as ordered, patient asleep status, will continue to monitor.
[2018-05-31] VITALS (10 sets, daily range): BP systolic 115–155; BP diastolic 62–99
--- NOTE | 2018-05-31 00:09 | NUR ---
RESPIRATORY NOTE: Pt placed on BiPAP for nightly use. Pt on BiPAP 18/6, backup rate 16, 30%. Pt on a Facial mask, skin intact, no redness, breakdowns noted. Foam tape applied on pt's nosebridge/cheeks/chin to prevent any irritations. Pt alert/awake, follows commands. B/S tristan. diminished, nonproductive cough. BiPAP plugged into red outlet. Pt in no apparent distress at this time. Will continue plan of care.
--- NOTE | 2018-05-31 01:00 | NUR ---
NURSE NOTES: Patient asleep status, no pain or distress noted.
--- NOTE | 2018-05-31 01:50 | NUR ---
NURSE NOTES: Patient awoke, drunk juice and water, no aspiration sign or cough noted, will continue to monitor.
[2018-05-31] MEDS: Vancomycin 1.5gm/D5W 275ml IVPB SCH (01:56)
--- NOTE | 2018-05-31 04:00 | NUR ---
NURSE NOTES: Morning care was done, on BiPAP status, will continue plan of care.
[2018-05-31] MEDS: Aztreonam Inj 2 GM in D5W 110 ML IVPB SCH (04:06)
--- NOTE | 2018-05-31 05:50 | NUR ---
NURSE NOTES: No acute distress noted at this shift.
[2018-05-31 05:53] LABS: BASOPHILS % (AUTO) 1.3 % (0.0-2.0); EOSINOPHILS % (AUTO) 1.8 % (0.0-3.0); HEMATOCRIT 41.3 % (37.0-47.0); LYMPHOCYTES % (AUTO) 10.6 % (20.0-45.0); MEAN CORPUSCULAR VOLUME 86 FL (80-99); MONOCYTES % (AUTO) 4.4 % (1.0-10.0); NEUTROPHILS % (AUTO) 81.9 % (45.0-75.0); PLATELET COUNT 292 K/UL (150-450); RED BLOOD COUNT 4.79 M/UL (4.20-5.40); RED CELL DISTRIBUTION WIDTH 21.9 % (11.6-14.8); WHITE BLOOD COUNT 9.4 K/UL (4.8-10.8)
--- NOTE | 2018-05-31 05:55 | NUR ---
TRANSFER TO FLOOR: Patient transferred to SDU room 244-2 via hospital bed. Report given to KIWON/RN. Belongings and medications given to KIWON/RN. Family and or S/O informed of transfer.
--- NOTE | 2018-05-31 06:00 | NUR ---
NURSE NOTES: Pt transferred from ICU. Given report from LUCIO Reid. Pt is resting on the bed and awake and confused. On O2 3L via nasal cannula and SaO2 98% noted. IV site intact and no sign of infiltration noted. Dressing is clean and dry on Bilateral lower leg wound area. Healed on Rt. wrist skin tear wound. Applied Tele monitor. Checked belongings with Pt. On Anaya cath and patent and drainage well. On bilateral wrist restraint. Pt still trying to touch IV , nasal cannula when during care. Checked circulation and comfort. Placed fall precaution. Will continue to care plan.
[2018-05-31] MEDS: NovoLOG Insulin Flexpen SUBQ SCH ×5 (06:18→21:00)
[2018-05-31 06:40] LABS: ALANINE AMINOTRANSFERASE 15 U/L (12-78); ALBUMIN 2.1 G/DL (3.4-5.0); ALBUMIN/GLOBULIN RATIO 0.5 (1.0-2.7); ALKALINE PHOSPHATASE 257 U/L (46-116); ANION GAP 10 mmol/L (5-15); ASPARTATE AMINO TRANSFERASE 38 U/L (15-37); BILIRUBIN,TOTAL 1.2 MG/DL (0.2-1.0); BLOOD UREA NITROGEN 15 mg/dL (7-18); CALCIUM 8.5 MG/DL (8.5-10.1); CARBON DIOXIDE 28 MMOL/L (21-32); CHLORIDE 111 MMOL/L (98-107); PHOSPHORUS 2.6 MG/DL (2.5-4.9); POTASSIUM 3.4 MMOL/L (3.5-5.1); SODIUM 149 MMOL/L (136-145)
[2018-05-31 06:57] LABS: BILIRUBIN,DIRECT 0.9 MG/DL (0.0-0.3)
--- NOTE | 2018-05-31 07:19 | NUR ---
HAND-OFF: Report given to LUCIO richey. Pt is resting on the bed and no sign of acute distress noted.
--- NOTE | 2018-05-31 07:20 | NUR ---
NURSE NOTES: RECEIVED PATIENT FROM Shahrzad BONILLA RN. PATIENT IS LYING IN BED, ALERT. AWAKE AND ABLE TO MAKE NEEDS KNOWN. HOOKED TO RAIL DIRECTOR. ON 3L NC. NO SIGNS OF DISTRESS OF THE MOMENT. NOTED 2 BM. [place] FOR RETENTION. NOTED SKIN ALTERATION. WITH IV ON L HAND G22, SL. CALL LIGHT WITHIN REACH. BED AT LOWEST POSITION, SIDE RAILS UP. WILL CONTINUE TO MONITOR.
[2018-05-31] MEDS ORDERED: Lisinopril 2.5mg tab ORAL SCH (09:00)
[2018-05-31] MEDS: Pantoprazole Inj IVP SCH (10:40)
--- NOTE | 2018-05-31 10:41 | GI Progress Note ---
Assessment/Plan Problems: (1) DM (diabetes mellitus) ICD Codes: E11.9 - DM (diabetes mellitus) SNOMED: 80689387 (2) Intractable abdominal pain ICD Codes: R10.9 - Unspecified abdominal pain SNOMED: 55193492 (3) Elevated transaminase level ICD Codes: R74.0 - Nonspecific elevation of levels of transaminase and lactic acid dehydrogenase [LDH] SNOMED: 814763377 (4) Abdominal distension ICD Codes: R14.0 - Abdominal distension (gaseous) SNOMED: 30603940 (5) Liver disease ICD Codes: K76.9 - Liver disease, unspecified SNOMED: 662079394 (6) Acute encephalopathy ICD Codes: G93.40 - Encephalopathy, unspecified SNOMED: 50272521, 510280046 Status: progressing Status Narrative Discussed with Dr. Paul. Assessment/Plan OB stool negative x2 stable H&H generalized anasarca hepatitis panel negative abdominal US reviewed >> - Ascites - Borderline hepatomegaly - Thick-walled gallbladder, likely in part artifact of nondistention, and in part due to hemodynamic factors causing the ascites. No definite gallstones. Acute cholecystitis not completely excludable, due to the wall thickening, and hepatobiliary scan should be considered if there is high clinical suspicion for such. - Negative for dilated ducts - To and fro flow within the main portal vein, could indicate portal hypertension on cardiac diet cont lactulose prn transfusions bowel regime ppi fu labs had multiple bmsstill on BIPAP will decrease laxatives The patient was seen and examined at bedside and all new and available data was reviewed in the patients chart. I agree with the above findings, impression and plan. (Patient seen earlier today. Signature stamp does not reflect patient encounter time.). - Robert Paul MD Subjective Subjective denies abdominal pain tolerating diet Objective Last 24 Hour Vital Signs Date Time Temp Pulse Resp B/P (MAP) Pulse Ox O2 Delivery O2 Flow Rate FiO2 05/31/18 08:00 85 05/31/18 08:00 97.0 85 22 126/69 (88) 100 05/31/18 06:49 Nasal Cannula 3.0 32 05/31/18 06:49 92 Nasal Cannula 3.0 32 05/31/18 05:10 75 18 97 Facial 30 05/31/18 05:00 78 18 121/62 (81) 98 05/31/18 04:00 30 05/31/18 04:00 98.3 76 19 127/82 (97) 96 05/31/18 04:00 Bi-pap 05/31/18 03:32 74 05/31/18 03:00 78 14 121/76 (91) 96 05/31/18 02:48 77 19 97 Facial 30 05/31/18 02:00 78 17 120/73 (89) 98 05/31/18 01:10 86 19 99 Facial 30 05/31/18 01:00 80 17 124/79 (94) 98 05/31/18 00:07 81 18 97 Facial 30 05/31/18 00:00 Bi-pap 05/31/18 00:00 30 05/31/18 00:00 97.8 82 15 115/92 (100) 98 05/30/18 23:39 85 05/30/18 23:00 85 18 130/81 (97) 96 05/30/18 22:00 90 18 128/79 (95) 97 05/30/18 21:00 83 20 128/81 (97) 98 05/30/18 20:00 Nasal Cannula 3.0 05/30/18 20:00 3.0 05/30/18 20:00 98.3 84 17 125/84 (98) 99 05/30/18 19:03 97 Nasal Cannula 3.0 32 05/30/18 19:03 Nasal Cannula 3.0 32 05/30/18 19:00 85 20 131/80 (97) 98 05/30/18 19:00 79 14 135/84 (101) 100 05/30/18 18:57 85 05/30/18 18:00 97.8 83 20 132/79 (96) 98 05/30/18 17:00 79 14 135/84 (101) 100 05/30/18 16:00 81 16 129/92 (104) 100 05/30/18 16:00 Bi-pap 05/30/18 15:32 80 05/30/18 15:00 83 25 127/96 (106) 100 05/30/18 14:30 3.0 05/30/18 14:00 81 15 133/92 (106) 100 05/30/18 13:36 81 17 99 Facial 30 05/30/18 13:00 78 15 127/95 (106) 100 05/30/18 12:00 84 05/30/18 12:00 97.5 77 14 127/95 (106) 99 05/30/18 12:00 Bi-pap 05/30/18 12:00 30 05/30/18 11:14 81 16 99 Facial 30 05/30/18 11:00 82 14 113/90 (98) 99 Intake and Output 05/30/18 05/31/18 19:00 07:00 Intake Total 320 ml 760 ml Output Total 900 ml 1080 ml Balance -580 ml -320 ml Intake Oral 210 ml 540 ml IV Total 110 ml 220 ml Output Urine Total 900 ml 1080 ml # Bowel Movements 2 4 Laboratory Tests Test 05/31/18 04:30 White Blood Count 9.4 K/UL (4.8-10.8) Red Blood Count 4.79 M/UL (4.20-5.40) Hemoglobin 12.0 G/DL (12.0-16.0) Hematocrit 41.3 % (37.0-47.0) Mean Corpuscular Volume 86 FL (80-99) Mean Corpuscular Hemoglobin 25.0 PG (27.0-31.0) L Mean Corpuscular Hemoglobin Concent 29.0 G/DL (32.0-36.0) L Red Cell Distribution Width 21.9 % (11.6-14.8) H Platelet Count 292 K/UL (150-450) Mean Platelet Volume 9.4 FL (6.5-10.1) Neutrophils (%) (Auto) 81.9 % (45.0-75.0) H Lymphocytes (%) (Auto) 10.6 % (20.0-45.0) L Monocytes (%) (Auto) 4.4 % (1.0-10.0) Eosinophils (%) (Auto) 1.8 % (0.0-3.0) Basophils (%) (Auto) 1.3 % (0.0-2.0) Sodium Level 149 MMOL/L (136-145) H Potassium Level 3.4 MMOL/L (3.5-5.1) L Chloride Level 111 MMOL/L (98-107) H Carbon Dioxide Level 28 MMOL/L (21-32) Anion Gap 10 mmol/L (5-15) Blood Urea Nitrogen 15 mg/dL (7-18) Creatinine 1.0 MG/DL (0.55-1.30) Estimat Glomerular Filtration Rate > 60 mL/min (>60) Glucose Level 123 MG/DL (74-106) H Uric Acid 6.5 MG/DL (2.6-7.2) Calcium Level 8.5 MG/DL (8.5-10.1) Phosphorus Level 2.6 MG/DL (2.5-4.9) Magnesium Level 1.4 MG/DL (1.8-2.4) L Total Bilirubin 1.2 MG/DL (0.2-1.0) H Direct Bilirubin 0.9 MG/DL (0.0-0.3) H Aspartate Amino Transf (AST/SGOT) 38 U/L (15-37) H Alanine Aminotransferase (ALT/SGPT) 15 U/L (12-78) Alkaline Phosphatase 257 U/L (46-116) H Troponin I 0.036 ng/mL (0.000-0.056) Pro-B-Type Natriuretic Peptide 1844 pg/mL (0-125) H Total Protein 6.5 G/DL (6.4-8.2) Albumin 2.1 G/DL (3.4-5.0) L Globulin 4.4 g/dL Albumin/Globulin Ratio 0.5 (1.0-2.7) L Microbiology Date/Time Source Procedure Growth Status 05/30/18 22:00 Stool Clostridium difficile Toxin Assay - Final Complete Height (Feet): 5 Height (Inches): 3.00 Weight (Pounds): 323 General Appearance: no apparent distress, alert, obese Cardiovascular: normal rate Respiratory/Chest: normal breath sounds, no respiratory distress Abdominal Exam: normal bowel sounds, non tender, soft Extremities: non-tender Otilio Cohen NP May 31, 2018 10:41
[2018-05-31] MEDS: Ascorbic Acid 500mg tab NG SCH ×2 (10:42→18:16)
[2018-05-31] MEDS: Nitroglycerin Patch 0.4mg TDERMAL SCH (10:44)
[2018-05-31] MEDS: Betadine 4oz Bottle TOPIC SCH ×2 (10:49→18:17)
--- NOTE | 2018-05-31 11:29 | Nephrology Progress Note ---
Assessment/Plan Problem List: (1) ARF (acute renal failure) (2) Cellulitis of both lower extremities (3) Venous stasis ulcers of both lower extremities (4) DM (diabetes mellitus) (5) CKD (chronic kidney disease) (6) Morbid (severe) obesity due to excess calories (7) Acute hypoxemic respiratory failure Assessment extubated on bipap as needed- Diabetic Nephropathy Cr lower acute renal failure super imposed on CKD Encephalopathy, CO2 retainer, respiratory failure acute Obesity High Trop High Bili UTI Bilateral LE cellulitis Anemia Plan mag and K supplement pulmonary support, post extubation Zestril and Norvasc for high bp at step down unit 24 h urine crcl 29 cc 24 h protein 0.6 gr pressors as needed Avoid nephrotoxics monitor renal parameters 2D echo Ej Fx 55% kidney WESLEY no pathology reported Per ID , Pulm... meds IV or OG tube Avoid mind altering meds per orders Subjective ROS Limited/Unobtainable: No Constitutional: Reports: malaise Subjective ALOC periodically Objective Objective Last 24 Hour Vital Signs Date Time Temp Pulse Resp B/P (MAP) Pulse Ox O2 Delivery O2 Flow Rate FiO2 05/31/18 10:44 126/69 05/31/18 10:43 126/69 05/31/18 10:41 85 126/69 05/31/18 08:00 85 05/31/18 08:00 97.0 85 22 126/69 (88) 100 05/31/18 06:49 Nasal Cannula 3.0 32 05/31/18 06:49 92 Nasal Cannula 3.0 32 05/31/18 05:10 75 18 97 Facial 30 05/31/18 05:00 78 18 121/62 (81) 98 05/31/18 04:00 30 05/31/18 04:00 98.3 76 19 127/82 (97) 96 05/31/18 04:00 Bi-pap 05/31/18 03:32 74 05/31/18 03:00 78 14 121/76 (91) 96 05/31/18 02:48 77 19 97 Facial 30 05/31/18 02:00 78 17 120/73 (89) 98 05/31/18 01:10 86 19 99 Facial 30 05/31/18 01:00 80 17 124/79 (94) 98 05/31/18 00:07 81 18 97 Facial 30 05/31/18 00:00 Bi-pap 05/31/18 00:00 30 05/31/18 00:00 97.8 82 15 115/92 (100) 98 05/30/18 23:39 85 05/30/18 23:00 85 18 130/81 (97) 96 05/30/18 22:00 90 18 128/79 (95) 97 05/30/18 21:00 83 20 128/81 (97) 98 05/30/18 20:00 Nasal Cannula 3.0 05/30/18 20:00 3.0 05/30/18 20:00 98.3 84 17 125/84 (98) 99 05/30/18 19:03 97 Nasal Cannula 3.0 32 05/30/18 19:03 Nasal Cannula 3.0 32 05/30/18 19:00 85 20 131/80 (97) 98 05/30/18 19:00 79 14 135/84 (101) 100 05/30/18 18:57 85 05/30/18 18:00 97.8 83 20 132/79 (96) 98 05/30/18 17:00 79 14 135/84 (101) 100 05/30/18 16:00 81 16 129/92 (104) 100 05/30/18 16:00 Bi-pap 05/30/18 15:32 80 05/30/18 15:00 83 25 127/96 (106) 100 05/30/18 14:30 3.0 05/30/18 14:00 81 15 133/92 (106) 100 05/30/18 13:36 81 17 99 Facial 30 05/30/18 13:00 78 15 127/95 (106) 100 05/30/18 12:00 84 05/30/18 12:00 97.5 77 14 127/95 (106) 99 05/30/18 12:00 Bi-pap 05/30/18 12:00 30 Intake and Output 05/30/18 05/31/18 19:00 07:00 Intake Total 320 ml 760 ml Output Total 900 ml 1080 ml Balance -580 ml -320 ml Intake Oral 210 ml 540 ml IV Total 110 ml 220 ml Output Urine Total 900 ml 1080 ml # Bowel Movements 2 4 Laboratory Tests 05/31/18 04:30: White Blood Count 9.4, Red Blood Count 4.79, Hemoglobin 12.0, Hematocrit 41.3, Mean Corpuscular Volume 86, Mean Corpuscular Hemoglobin 25.0L, Mean Corpuscular Hemoglobin Concent 29.0L, Red Cell Distribution Width 21.9H, Platelet Count 292 , Mean Platelet Volume 9.4, Neutrophils (%) (Auto) 81.9H, Lymphocytes (%) (Auto ) 10.6L, Monocytes (%) (Auto) 4.4, Eosinophils (%) (Auto) 1.8, Basophils (%) ( Auto) 1.3, Sodium Level 149H, Potassium Level 3.4L, Chloride Level 111H, Carbon Dioxide Level 28, Anion Gap 10, Blood Urea Nitrogen 15, Creatinine 1.0, Estimat Glomerular Filtration Rate > 60, Glucose Level 123H, Uric Acid 6.5, Calcium Level 8.5, Phosphorus Level 2.6, Magnesium Level 1.4L, Total Bilirubin 1.2H, Direct Bilirubin 0.9H, Aspartate Amino Transf (AST/SGOT) 38H, Alanine Aminotransferase (ALT/SGPT) 15, Alkaline Phosphatase 257H, Troponin I 0.036, Pro -B-Type Natriuretic Peptide 1844H, Total Protein 6.5, Albumin 2.1L, Globulin 4.4 , Albumin/Globulin Ratio 0.5L Height (Feet): 5 Height (Inches): 3.00 Weight (Pounds): 323 General Appearance: no apparent distress Cardiovascular: normal rate Respiratory/Chest: decreased breath sounds Abdomen: soft Objective no change Tr Strange MD May 31, 2018 11:29
[2018-05-31] MEDS ORDERED: Aztreonam Inj 2 GM in D5W 110 ML IVPB SCH (12:00)
--- NOTE | 2018-05-31 13:53 | Infectious Diseases Prog Note ---
Assessment/Plan Problems: (1) VAP (ventilator-associated pneumonia) Assessment & Plan: with coag negative staphylococcus and proteus mirabilis , already on vancomycin for two weeks . will stop aztreonam, recommend aspiration precaution . EOT 06/09/18 (2) Bacteremia due to Enterococcus Assessment & Plan: due to enterococcus faecalis suspect picc line related blood stream infection , PICC line was removed . continue vancomycin renally dosed as per pharmacy for two weeks TOTAL . EOT 06/09/18 (3) Bilateral lower leg cellulitis Assessment & Plan: wound culture grew klibsella oxytoca, and Sphingomonas paucimobilis , continue vancomycin and aztreonam empirically with local wounds care . await on bone scan of both legs once clinically stable . (4) Nonhealing ulcer of left lower extremity Assessment & Plan: wound culture grew klebsiella oxytoca and Sphingomonas paucimobilis, now on aztreonam and vancomycin , continue local wound care and dressings change as per wound care service as per plastic surgery recommendations (5) CKD (chronic kidney disease) Assessment & Plan: avoid nephrotoxics , renally dosed antibiotics as per pharmacy (6) DM (diabetes mellitus) Assessment & Plan: recommend tight glycemic control to keep blood glucose between 100-140 (7) Acute encephalopathy Assessment & Plan: suspect metabolic with high ammonia level, continue lactulose , consult neurology if no improvement (8) Acute hypoxemic respiratory failure Assessment & Plan: due to the above , self extubated , now on NASAL CANULA , and BIPAP prn . pulmonary is following, Subjective Constitutional: Reports: no symptoms HEENT: Reports: no symptoms Respiratory: Reports: dry cough Breasts: Reports: no symptoms Cardiovascular: Reports: no symptoms Gastrointestinal/Abdominal: Reports: no symptoms Genitourinary: Reports: no symptoms Neurologic: Reports: no symptoms Psychiatric: Reports: no symptoms Skin: Reports: ulcer Endocrine: Reports: no symptoms Hematologic: Reports: no symptoms Musculoskeletal: Reports: no symptoms Allergies: Coded Allergies: ASPIRIN (Verified Allergy, Intermediate, Hives, 01/06/13) PENICILLINS (Verified Allergy, Intermediate, Hives, 01/06/13) Subjective she was transferred out of ICU, off BIPAP, and nasal canula , comfortable lying in bed, afebrile, denied any fever or chills. Objective Vital Signs Last 24 Hour Vital Signs Date Time Temp Pulse Resp B/P (MAP) Pulse Ox O2 Delivery O2 Flow Rate FiO2 05/31/18 10:44 126/69 05/31/18 10:43 126/69 05/31/18 10:41 85 126/69 05/31/18 08:00 85 05/31/18 08:00 3.0 05/31/18 08:00 97.0 85 22 126/69 (88) 100 05/31/18 08:00 Bi-pap 05/31/18 06:49 Nasal Cannula 3.0 32 05/31/18 06:49 92 Nasal Cannula 3.0 32 05/31/18 05:10 75 18 97 Facial 30 05/31/18 05:00 78 18 121/62 (81) 98 05/31/18 04:00 30 05/31/18 04:00 98.3 76 19 127/82 (97) 96 05/31/18 04:00 Bi-pap 05/31/18 03:32 74 05/31/18 03:00 78 14 121/76 (91) 96 05/31/18 02:48 77 19 97 Facial 30 05/31/18 02:00 78 17 120/73 (89) 98 05/31/18 01:10 86 19 99 Facial 30 05/31/18 01:00 80 17 124/79 (94) 98 05/31/18 00:07 81 18 97 Facial 30 05/31/18 00:00 Bi-pap 05/31/18 00:00 30 05/31/18 00:00 97.8 82 15 115/92 (100) 98 05/30/18 23:39 85 05/30/18 23:00 85 18 130/81 (97) 96 05/30/18 22:00 90 18 128/79 (95) 97 05/30/18 21:00 83 20 128/81 (97) 98 05/30/18 20:00 Nasal Cannula 3.0 05/30/18 20:00 3.0 05/30/18 20:00 98.3 84 17 125/84 (98) 99 05/30/18 19:03 97 Nasal Cannula 3.0 32 05/30/18 19:03 Nasal Cannula 3.0 32 05/30/18 19:00 85 20 131/80 (97) 98 05/30/18 19:00 79 14 135/84 (101) 100 05/30/18 18:57 85 05/30/18 18:00 97.8 83 20 132/79 (96) 98 05/30/18 17:00 79 14 135/84 (101) 100 05/30/18 16:00 81 16 129/92 (104) 100 05/30/18 16:00 Bi-pap 05/30/18 15:32 80 05/30/18 15:00 83 25 127/96 (106) 100 05/30/18 14:30 3.0 05/30/18 14:00 81 15 133/92 (106) 100 Height (Feet): 5 Height (Inches): 3.00 Weight (Pounds): 323 General Appearance: WD/WN, no acute distress HEENT: normocephalic, atraumatic, anicteric, mucous membranes moist, PERRL Respiratory/Chest: chest wall non-tender, lungs clear, normal breath sounds, no respiratory distress, no accessory muscle use, respiratory distress Cardiovascular: normal peripheral pulses, normal rate, regular rhythm, no gallop/murmur, no JVD Abdomen: normal bowel sounds, soft, non tender, no organomegaly, non distended , no mass, no scars Extremities: no cyanosis, no clubbing Skin: no rash, no lesions, no ulcers Neurologic/Psychiatric: materials planner II-XII grossly normal, alert, oriented x 3, responsive Lymphatic: no neck adenopathy, no groin adenopathy Musculoskeletal: normal muscle bulk, no effusion Microbiology Date/Time Source Procedure Growth Status 05/30/18 22:00 Stool Clostridium difficile Toxin Assay - Final Complete Laboratory Tests Test 05/31/18 04:30 White Blood Count 9.4 K/UL (4.8-10.8) Red Blood Count 4.79 M/UL (4.20-5.40) Hemoglobin 12.0 G/DL (12.0-16.0) Hematocrit 41.3 % (37.0-47.0) Mean Corpuscular Volume 86 FL (80-99) Mean Corpuscular Hemoglobin 25.0 PG (27.0-31.0) L Mean Corpuscular Hemoglobin Concent 29.0 G/DL (32.0-36.0) L Red Cell Distribution Width 21.9 % (11.6-14.8) H Platelet Count 292 K/UL (150-450) Mean Platelet Volume 9.4 FL (6.5-10.1) Neutrophils (%) (Auto) 81.9 % (45.0-75.0) H Lymphocytes (%) (Auto) 10.6 % (20.0-45.0) L Monocytes (%) (Auto) 4.4 % (1.0-10.0) Eosinophils (%) (Auto) 1.8 % (0.0-3.0) Basophils (%) (Auto) 1.3 % (0.0-2.0) Sodium Level 149 MMOL/L (136-145) H Potassium Level 3.4 MMOL/L (3.5-5.1) L Chloride Level 111 MMOL/L (98-107) H Carbon Dioxide Level 28 MMOL/L (21-32) Anion Gap 10 mmol/L (5-15) Blood Urea Nitrogen 15 mg/dL (7-18) Creatinine 1.0 MG/DL (0.55-1.30) Estimat Glomerular Filtration Rate > 60 mL/min (>60) Glucose Level 123 MG/DL (74-106) H Uric Acid 6.5 MG/DL (2.6-7.2) Calcium Level 8.5 MG/DL (8.5-10.1) Phosphorus Level 2.6 MG/DL (2.5-4.9) Magnesium Level 1.4 MG/DL (1.8-2.4) L Total Bilirubin 1.2 MG/DL (0.2-1.0) H Direct Bilirubin 0.9 MG/DL (0.0-0.3) H Aspartate Amino Transf (AST/SGOT) 38 U/L (15-37) H Alanine Aminotransferase (ALT/SGPT) 15 U/L (12-78) Alkaline Phosphatase 257 U/L (46-116) H Troponin I 0.036 ng/mL (0.000-0.056) Pro-B-Type Natriuretic Peptide 1844 pg/mL (0-125) H Total Protein 6.5 G/DL (6.4-8.2) Albumin 2.1 G/DL (3.4-5.0) L Globulin 4.4 g/dL Albumin/Globulin Ratio 0.5 (1.0-2.7) L Current Medications Medications (Trade) Dose Ordered Sig/Toya Route PRN Reason Start Time Stop Time Status Last Admin Dose Admin Allopurinol (Allopurinol) 300 mg DAILY NG 05/31/18 09:00 06/18/18 12:59 05/31/18 10:45 Amlodipine Besylate (Norvasc) 2.5 mg DAILY ORAL 05/31/18 09:00 06/26/18 10:05 05/31/18 10:41 Ascorbic Acid (Vitamin C) 500 mg TWICE A DAY NG 05/31/18 09:00 06/15/18 17:59 05/31/18 10:42 Atorvastatin Calcium (Lipitor) 20 mg BEDTIME ORAL 05/31/18 21:00 06/13/18 20:59 Aztreonam 2 gm/ Dextrose 110 ml @ 220 mls/hr Q8H IVPB 05/31/18 12:00 06/05/18 03:59 05/31/18 12:17 Clopidogrel Bisulfate (Plavix) 75 mg DAILY NG 05/31/18 09:00 06/14/18 08:59 05/31/18 10:42 Dextrose (Dextrose 50%) 25 ml Q30M PRN IV Hypoglycemia 05/31/18 06:30 06/11/18 16:59 Dextrose (Dextrose 50%) 50 ml Q30M PRN IV Hypoglycemia 05/31/18 06:30 06/11/18 16:59 Furosemide (Lasix) 20 mg Q12HR IV 05/31/18 09:00 06/23/18 16:03 05/31/18 10:40 Insulin Aspart (NovoLOG) AC+HS SUBQ 05/31/18 06:30 06/11/18 12:59 Lisinopril (Zestril) 5 mg DAILY ORAL 05/31/18 09:00 06/25/18 15:44 05/31/18 10:43 Magnesium Sulfate 100 ml @ 100 mls/hr Q1H IVPB 05/31/18 11:00 05/31/18 14:59 05/31/18 13:10 Multivitamins (Multivitamins) 1 tab DAILY ORAL 05/31/18 09:00 06/16/18 08:59 05/31/18 10:42 Nitroglycerin (Ntg) 1 patch Q24H TDERMAL 05/31/18 09:00 06/14/18 08:59 05/31/18 10:44 Pantoprazole (Protonix) 40 mg DAILY IVP 05/31/18 09:00 06/13/18 20:59 05/31/18 10:40 Povidone Iodine (Betadine Gretchen) 1 applic BID TOPIC 05/31/18 09:00 06/15/18 08:59 05/31/18 10:49 Vancomycin HCl (Vanco rx to dose) 1 ea DAILY PRN MISC Per rx protocol 05/31/18 09:00 06/22/18 17:29 Vancomycin HCl/ Dextrose 275 ml @ 137.5 mls/ hr Q24H IVPB 06/01/18 02:00 06/04/18 01:59 Juice Wilkerson M.D. May 31, 2018 13:53
--- NOTE | 2018-05-31 14:09 | Pulmonology Progress Note ---
Assessment/Plan Assessment/Plan 67 y/o female w/ DM, CKD, morbid obesity admitted with b/l LE cellulitis and altered mental status. Problem List: 1. Altered mental status 2. Acute hypercapnic respiratory failure -intubated 05/15 -self-extubated 05/24 3. Bilateral lower extremity cellulitis 4. RACHELLE on CKD 5. DM 6. Morbid obesity 7. Elevated ammonia level 8. RV failure 9. Acute diastolic Congestive heart failure 10. Combined respiratory and metabolic acidosis, persistent Plan: -monitor respiratory status -BiPAP 18/6 qhs and prn with breaks for meals -Repeat ABG in AM -monitor volumes and renal function -lasix 20 mg IV to q12 and monitor I/O -CXR repeat -Abx per ID -wean oxygen as tolerated Case d/w RN Subjective ROS Limited/Unobtainable: No Interval Events: Transferred to [facility]. Breathing stable on nasal cannula. BiPAP qhs Constitutional: Reports: no symptoms HEENT: Repors: no symptoms Respiratory: Reports: no symptoms Cardiovascular: Reports: no symptoms Gastrointestinal/Abdominal: Reports: no symptoms Allergies: Coded Allergies: ASPIRIN (Verified Allergy, Intermediate, Hives, 01/06/13) PENICILLINS (Verified Allergy, Intermediate, Hives, 01/06/13) Objective Last 24 Hour Vital Signs Date Time Temp Pulse Resp B/P (MAP) Pulse Ox O2 Delivery O2 Flow Rate FiO2 05/31/18 10:44 126/69 05/31/18 10:43 126/69 05/31/18 10:41 85 126/69 05/31/18 08:00 85 05/31/18 08:00 3.0 05/31/18 08:00 97.0 85 22 126/69 (88) 100 05/31/18 08:00 Bi-pap 05/31/18 06:49 Nasal Cannula 3.0 32 05/31/18 06:49 92 Nasal Cannula 3.0 32 05/31/18 05:10 75 18 97 Facial 30 05/31/18 05:00 78 18 121/62 (81) 98 05/31/18 04:00 30 05/31/18 04:00 98.3 76 19 127/82 (97) 96 05/31/18 04:00 Bi-pap 05/31/18 03:32 74 05/31/18 03:00 78 14 121/76 (91) 96 2/4/19 02:48 77 19 97 Facial 30 05/31/18 02:00 78 17 120/73 (89) 98 05/31/18 01:10 86 19 99 Facial 30 05/31/18 01:00 80 17 124/79 (94) 98 05/31/18 00:07 81 18 97 Facial 30 05/31/18 00:00 Bi-pap 05/31/18 00:00 30 05/31/18 00:00 97.8 82 15 115/92 (100) 98 05/30/18 23:39 85 05/30/18 23:00 85 18 130/81 (97) 96 05/30/18 22:00 90 18 128/79 (95) 97 05/30/18 21:00 83 20 128/81 (97) 98 05/30/18 20:00 Nasal Cannula 3.0 05/30/18 20:00 3.0 05/30/18 20:00 98.3 84 17 125/84 (98) 99 05/30/18 19:03 97 Nasal Cannula 3.0 32 05/30/18 19:03 Nasal Cannula 3.0 32 05/30/18 19:00 85 20 131/80 (97) 98 05/30/18 19:00 79 14 135/84 (101) 100 05/30/18 18:57 85 05/30/18 18:00 97.8 83 20 132/79 (96) 98 05/30/18 17:00 79 14 135/84 (101) 100 05/30/18 16:00 81 16 129/92 (104) 100 05/30/18 16:00 Bi-pap 05/30/18 15:32 80 05/30/18 15:00 83 25 127/96 (106) 100 05/30/18 14:30 3.0 Intake and Output 05/30/18 05/31/18 18:59 06:59 Intake Total 320 ml 760 ml Output Total 905 ml 1105 ml Balance -585 ml -345 ml Intake Oral 210 ml 540 ml IV Total 110 ml 220 ml Output Urine Total 905 ml 1105 ml # Bowel Movements 2 4 General Appearance: no acute distress HEENT: normocephalic, atraumatic Respiratory/Chest: crackles/rales Cardiovascular: normal rate, regular rhythm Abdomen: normal bowel sounds Extremities: other - improved edema Neurologic/Psychiatric: responsive Microbiology Date/Time Source Procedure Growth Status 05/30/18 22:00 Stool Clostridium difficile Toxin Assay - Final Complete Laboratory Tests 05/31/18 04:30: White Blood Count 9.4, Red Blood Count 4.79, Hemoglobin 12.0, Hematocrit 41.3, Mean Corpuscular Volume 86, Mean Corpuscular Hemoglobin 25.0L, Mean Corpuscular Hemoglobin Concent 29.0L, Red Cell Distribution Width 21.9H, Platelet Count 292 , Mean Platelet Volume 9.4, Neutrophils (%) (Auto) 81.9H, Lymphocytes (%) (Auto ) 10.6L, Monocytes (%) (Auto) 4.4, Eosinophils (%) (Auto) 1.8, Basophils (%) ( Auto) 1.3, Sodium Level 149H, Potassium Level 3.4L, Chloride Level 111H, Carbon Dioxide Level 28, Anion Gap 10, Blood Urea Nitrogen 15, Creatinine 1.0, Estimat Glomerular Filtration Rate > 60, Glucose Level 123H, Uric Acid 6.5, Calcium Level 8.5, Phosphorus Level 2.6, Magnesium Level 1.4L, Total Bilirubin 1.2H, Direct Bilirubin 0.9H, Aspartate Amino Transf (AST/SGOT) 38H, Alanine Aminotransferase (ALT/SGPT) 15, Alkaline Phosphatase 257H, Troponin I 0.036, Pro -B-Type Natriuretic Peptide 1844H, Total Protein 6.5, Albumin 2.1L, Globulin 4.4 , Albumin/Globulin Ratio 0.5L Current Medications Medications (Trade) Dose Ordered Sig/Toya Route PRN Reason Start Time Stop Time Status Last Admin Dose Admin Allopurinol (Allopurinol) 300 mg DAILY 05/31/18 09:00 06/18/18 12:59 05/31/18 10:45 Amlodipine Besylate (Norvasc) 2.5 mg DAILY ORAL 05/31/18 09:00 06/26/18 10:05 05/31/18 10:41 Ascorbic Acid (Vitamin C) 500 mg TWICE A DAY 05/31/18 09:00 06/15/18 17:59 05/31/18 10:42 Atorvastatin Calcium (Lipitor) 20 mg BEDTIME ORAL 05/31/18 21:00 06/13/18 20:59 Clopidogrel Bisulfate (Plavix) 75 mg DAILY 05/31/18 09:00 06/14/18 08:59 05/31/18 10:42 Dextrose (Dextrose 50%) 25 ml Q30M PRN IV Hypoglycemia 05/31/18 06:30 06/11/18 16:59 Dextrose (Dextrose 50%) 50 ml Q30M PRN IV Hypoglycemia 05/31/18 06:30 06/11/18 16:59 Furosemide (Lasix) 20 mg Q12HR IV 05/31/18 09:00 06/23/18 16:03 05/31/18 10:40 Insulin Aspart (NovoLOG) AC+HS SUBQ 05/31/18 06:30 06/11/18 12:59 Lisinopril (Zestril) 5 mg DAILY ORAL 05/31/18 09:00 06/25/18 15:44 05/31/18 10:43 Magnesium Sulfate 100 ml @ 100 mls/hr Q1H IVPB 05/31/18 11:00 05/31/18 14:59 05/31/18 13:10 Multivitamins (Multivitamins) 1 tab DAILY ORAL 05/31/18 09:00 06/16/18 08:59 05/31/18 10:42 Nitroglycerin (Ntg) 1 patch Q24H TDERMAL 05/31/18 09:00 06/14/18 08:59 05/31/18 10:44 Pantoprazole (Protonix) 40 mg DAILY IVP 05/31/18 09:00 06/13/18 20:59 05/31/18 10:40 Povidone Iodine (Betadine Gretchen) 1 applic BID TOPIC 05/31/18 09:00 06/15/18 08:59 05/31/18 10:49 Vancomycin HCl (Vanco rx to dose) 1 ea DAILY PRN MISC Per rx protocol 05/31/18 09:00 06/22/18 17:29 Vancomycin HCl/ Dextrose 275 ml @ 137.5 mls/ hr Q24H IVPB 06/01/18 02:00 06/04/18 01:59 Hemal Ritchie MD May 31, 2018 14:09
--- NOTE | 2018-05-31 16:45 | NUR ---
HAND-OFF: Report given to Ellie Aragon RN.
--- NOTE | 2018-05-31 17:00 | NUR ---
NURSE NOTES: Assumed pt care, report received from Karina Garcia RN.Pt resting in bed awake,alert follows command ,noted no resp distress denies any c/o pain or discomfort SR on the monitor,skin warm and dry,pt obese,on big boy bed with Trapeze,call mitchell at bedside,SR up x2 HOB elevated,bed lock in lowest position will continue with plans of care.
--- NOTE | 2018-05-31 17:57 | Cardiology Progress Note ---
Assessment/Plan Assessment/Plan 1. Acute hypoxic hypercarbic respiratory failure, resolved, 2D echocardiography shows normal LV systolic function with a normal left atrial pressure, however e/ o right heart failure. 2. Right heart failure, pre-load sensitive, avoid aggressive diuretic use, evidence of RA and RV dilatation and severe RV systolic dysfunction, associated pulmonary HTN, ? type. 3. Paroxysmal atrial fibrillation, currently sinus rhythm. 4. Hypertension, increase lisinopril to 5mg bid. Will consider Coreg if persistently high. 5. Slight elevation of troponin I level in this patient most likely due to RV strain/failure. Subjective Subjective Sinus rhythm at rate of 77. On bipap O2 with FiO2 of 30%. Transferred to the [facility]. Objective Last 24 Hour Vital Signs Date Time Temp Pulse Resp B/P (MAP) Pulse Ox O2 Delivery O2 Flow Rate FiO2 05/31/18 12:00 97.2 77 22 155/99 (117) 91 05/31/18 12:00 3.0 30 05/31/18 10:44 126/69 05/31/18 10:43 126/69 05/31/18 10:41 85 126/69 05/31/18 08:00 85 05/31/18 08:00 3.0 05/31/18 08:00 97.0 85 22 126/69 (88) 100 05/31/18 08:00 Bi-pap 05/31/18 06:49 Nasal Cannula 3.0 32 05/31/18 06:49 92 Nasal Cannula 3.0 32 05/31/18 05:10 75 18 97 Facial 30 05/31/18 05:00 78 18 121/62 (81) 98 05/31/18 04:00 30 05/31/18 04:00 98.3 76 19 127/82 (97) 96 05/31/18 04:00 Bi-pap 05/31/18 03:32 74 05/31/18 03:00 78 14 121/76 (91) 96 05/31/18 02:48 77 19 97 Facial 30 05/31/18 02:00 78 17 120/73 (89) 98 05/31/18 01:10 86 19 99 Facial 30 05/31/18 01:00 80 17 124/79 (94) 98 05/31/18 00:07 81 18 97 Facial 30 05/31/18 00:00 Bi-pap 05/31/18 00:00 30 05/31/18 00:00 97.8 82 15 115/92 (100) 98 05/30/18 23:39 85 05/30/18 23:00 85 18 130/81 (97) 96 05/30/18 22:00 90 18 128/79 (95) 97 05/30/18 21:00 83 20 128/81 (97) 98 05/30/18 20:00 Nasal Cannula 3.0 05/30/18 20:00 3.0 05/30/18 20:00 98.3 84 17 125/84 (98) 99 05/30/18 19:03 97 Nasal Cannula 3.0 32 05/30/18 19:03 Nasal Cannula 3.0 32 05/30/18 19:00 85 20 131/80 (97) 98 05/30/18 19:00 79 14 135/84 (101) 100 05/30/18 18:57 85 05/30/18 18:00 97.8 83 20 132/79 (96) 98 Intake and Output 05/30/18 05/31/18 18:59 06:59 Intake Total 320 ml 760 ml Output Total 905 ml 1105 ml Balance -585 ml -345 ml Intake Oral 210 ml 540 ml IV Total 110 ml 220 ml Output Urine Total 905 ml 1105 ml # Bowel Movements 2 4 2D Echo: LVEF 55%, D-shaped septum due to RV pressure overload, Massive RA/RV size. Laboratory Tests Test 05/31/18 04:30 White Blood Count 9.4 K/UL (4.8-10.8) Red Blood Count 4.79 M/UL (4.20-5.40) Hemoglobin 12.0 G/DL (12.0-16.0) Hematocrit 41.3 % (37.0-47.0) Mean Corpuscular Volume 86 FL (80-99) Mean Corpuscular Hemoglobin 25.0 PG (27.0-31.0) L Mean Corpuscular Hemoglobin Concent 29.0 G/DL (32.0-36.0) L Red Cell Distribution Width 21.9 % (11.6-14.8) H Platelet Count 292 K/UL (150-450) Mean Platelet Volume 9.4 FL (6.5-10.1) Neutrophils (%) (Auto) 81.9 % (45.0-75.0) H Lymphocytes (%) (Auto) 10.6 % (20.0-45.0) L Monocytes (%) (Auto) 4.4 % (1.0-10.0) Eosinophils (%) (Auto) 1.8 % (0.0-3.0) Basophils (%) (Auto) 1.3 % (0.0-2.0) Sodium Level 149 MMOL/L (136-145) H Potassium Level 3.4 MMOL/L (3.5-5.1) L Chloride Level 111 MMOL/L (98-107) H Carbon Dioxide Level 28 MMOL/L (21-32) Anion Gap 10 mmol/L (5-15) Blood Urea Nitrogen 15 mg/dL (7-18) Creatinine 1.0 MG/DL (0.55-1.30) Estimat Glomerular Filtration Rate > 60 mL/min (>60) Glucose Level 123 MG/DL (74-106) H Uric Acid 6.5 MG/DL (2.6-7.2) Calcium Level 8.5 MG/DL (8.5-10.1) Phosphorus Level 2.6 MG/DL (2.5-4.9) Magnesium Level 1.4 MG/DL (1.8-2.4) L Total Bilirubin 1.2 MG/DL (0.2-1.0) H Direct Bilirubin 0.9 MG/DL (0.0-0.3) H Aspartate Amino Transf (AST/SGOT) 38 U/L (15-37) H Alanine Aminotransferase (ALT/SGPT) 15 U/L (12-78) Alkaline Phosphatase 257 U/L (46-116) H Troponin I 0.036 ng/mL (0.000-0.056) Pro-B-Type Natriuretic Peptide 1844 pg/mL (0-125) H Total Protein 6.5 G/DL (6.4-8.2) Albumin 2.1 G/DL (3.4-5.0) L Globulin 4.4 g/dL Albumin/Globulin Ratio 0.5 (1.0-2.7) L Microbiology Date/Time Source Procedure Growth Status 05/30/18 22:00 Stool Clostridium difficile Toxin Assay - Final Complete Objective HEENT: Atraumatic and normocephalic. Anicteric. Pupils are equal, round, and reactive to light and accommodation. Extraocular muscles intact. NECK: JVP ~20 cm, No carotid bruit. Carotid upstroke is 2+ bilaterally. CVS: Normal S1 and S2. Regular rate and rhythm. RV heave, No murmurs, gallops , or rubs. LUNGS: Diminished breath sounds in both lungs with rhonchi bilaterally. ABDOMEN: Soft, nontender, and nondistended. No hepatosplenomegaly. Positive bowel sounds. EXTREMITIES: No evidence of edema, clubbing, or cyanosis. There is venous stasis of lower extremities with associated ulceration. Justice Erickson MD May 31, 2018 17:57
--- NOTE | 2018-05-31 18:00 | Vascular Surgery Progress Note ---
Subjective Subjective Transferred to stepdown Remains extubated Awake and responsive Asking re her wounds and gangrene Objective Objective Last 24 Hour Vital Signs Date Time Temp Pulse Resp B/P (MAP) Pulse Ox O2 Delivery O2 Flow Rate FiO2 05/31/18 12:00 97.2 77 22 155/99 (117) 91 05/31/18 12:00 3.0 30 05/31/18 10:44 126/69 05/31/18 10:43 126/69 05/31/18 10:41 85 126/69 05/31/18 08:00 85 05/31/18 08:00 3.0 05/31/18 08:00 97.0 85 22 126/69 (88) 100 05/31/18 08:00 Bi-pap 05/31/18 06:49 Nasal Cannula 3.0 32 05/31/18 06:49 92 Nasal Cannula 3.0 32 05/31/18 05:10 75 18 97 Facial 30 05/31/18 05:00 78 18 121/62 (81) 98 05/31/18 04:00 30 05/31/18 04:00 98.3 76 19 127/82 (97) 96 05/31/18 04:00 Bi-pap 05/31/18 03:32 74 05/31/18 03:00 78 14 121/76 (91) 96 05/31/18 02:48 77 19 97 Facial 30 05/31/18 02:00 78 17 120/73 (89) 98 05/31/18 01:10 86 19 99 Facial 30 05/31/18 01:00 80 17 124/79 (94) 98 05/31/18 00:07 81 18 97 Facial 30 05/31/18 00:00 Bi-pap 05/31/18 00:00 30 05/31/18 00:00 97.8 82 15 115/92 (100) 98 05/30/18 23:39 85 05/30/18 23:00 85 18 130/81 (97) 96 05/30/18 22:00 90 18 128/79 (95) 97 05/30/18 21:00 83 20 128/81 (97) 98 05/30/18 20:00 Nasal Cannula 3.0 05/30/18 20:00 3.0 05/30/18 20:00 98.3 84 17 125/84 (98) 99 05/30/18 19:03 97 Nasal Cannula 3.0 32 05/30/18 19:03 Nasal Cannula 3.0 32 05/30/18 19:00 85 20 131/80 (97) 98 05/30/18 19:00 79 14 135/84 (101) 100 05/30/18 18:57 85 05/30/18 18:00 97.8 83 20 132/79 (96) 98 Intake and Output 05/30/18 05/31/18 18:59 06:59 Intake Total 320 ml 760 ml Output Total 905 ml 1105 ml Balance -585 ml -345 ml Intake Oral 210 ml 540 ml IV Total 110 ml 220 ml Output Urine Total 905 ml 1105 ml # Bowel Movements 2 4 Laboratory Tests Test 05/31/18 04:30 White Blood Count 9.4 K/UL (4.8-10.8) Red Blood Count 4.79 M/UL (4.20-5.40) Hemoglobin 12.0 G/DL (12.0-16.0) Hematocrit 41.3 % (37.0-47.0) Mean Corpuscular Volume 86 FL (80-99) Mean Corpuscular Hemoglobin 25.0 PG (27.0-31.0) L Mean Corpuscular Hemoglobin Concent 29.0 G/DL (32.0-36.0) L Red Cell Distribution Width 21.9 % (11.6-14.8) H Platelet Count 292 K/UL (150-450) Mean Platelet Volume 9.4 FL (6.5-10.1) Neutrophils (%) (Auto) 81.9 % (45.0-75.0) H Lymphocytes (%) (Auto) 10.6 % (20.0-45.0) L Monocytes (%) (Auto) 4.4 % (1.0-10.0) Eosinophils (%) (Auto) 1.8 % (0.0-3.0) Basophils (%) (Auto) 1.3 % (0.0-2.0) Sodium Level 149 MMOL/L (136-145) H Potassium Level 3.4 MMOL/L (3.5-5.1) L Chloride Level 111 MMOL/L (98-107) H Carbon Dioxide Level 28 MMOL/L (21-32) Anion Gap 10 mmol/L (5-15) Blood Urea Nitrogen 15 mg/dL (7-18) Creatinine 1.0 MG/DL (0.55-1.30) Estimat Glomerular Filtration Rate > 60 mL/min (>60) Glucose Level 123 MG/DL (74-106) H Uric Acid 6.5 MG/DL (2.6-7.2) Calcium Level 8.5 MG/DL (8.5-10.1) Phosphorus Level 2.6 MG/DL (2.5-4.9) Magnesium Level 1.4 MG/DL (1.8-2.4) L Total Bilirubin 1.2 MG/DL (0.2-1.0) H Direct Bilirubin 0.9 MG/DL (0.0-0.3) H Aspartate Amino Transf (AST/SGOT) 38 U/L (15-37) H Alanine Aminotransferase (ALT/SGPT) 15 U/L (12-78) Alkaline Phosphatase 257 U/L (46-116) H Troponin I 0.036 ng/mL (0.000-0.056) Pro-B-Type Natriuretic Peptide 1844 pg/mL (0-125) H Total Protein 6.5 G/DL (6.4-8.2) Albumin 2.1 G/DL (3.4-5.0) L Globulin 4.4 g/dL Albumin/Globulin Ratio 0.5 (1.0-2.7) L Height (Feet): 5 Height (Inches): 3.00 Weight (Pounds): 323 Objective Awake alert and oriented cvs rrr lung rhonchi b/l abd soft obese with anasarca leg edema--less + femorals absent pop pedal pulses Leg stasis ulcers Ischemic right toe necrosis/gangrene+ Assessment/Plan Assessment Ischemic legs R>L with toe 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 Hx of resp failure on vent--now remains extubated and transferred to stepdown Hx of shock on pressors Heart failure--systolic & diastolic Renal failure with anasarca pulm edema--much improved; senior cytotechnologist 1.0 today Morbid obesity Leg stasis ulcers Encephalopathy--improved now awake alert Plan Medical optimization in progress DVT and decub precautions Nutrition Will need selective leg angiogram to assess for percutaneous leg revascularization once all cleared (right leg first) Podiatry eval re toe necrosis/gangrene d/w patient and nurse at bedside d/w pmd/ renal/ podiatry Nicko Victoria MD May 31, 2018 18:00
[2018-05-31] MEDS: Lisinopril 2.5mg tab ORAL SCH (18:19)
--- NOTE | 2018-05-31 19:25 | NUR ---
HAND-OFF: Report given to Cally Bullard RN. .
--- NOTE | 2018-05-31 19:30 | NUR ---
NURSE NOTES: Report received from Margo Argueta RN. A/O x 2. Observed pt lying on the bed with her family members at bedside. Denies any pain at this time. SR with client service coordinator. On RA with saturation of 98%. IV on L FA, 22G, SL, intact and patent. F/C intact and patent, Bed in the lowest position. Side rails up x3. Will continue to monitor. Addendum: 05/31/18 at 2333 by Cally Bullard RN Pt is on NC 2L O2, saturation of 98%.
[2018-05-31] MEDS: Atorvastatin 20mg tab ORAL SCH (21:51)
[2018-06-01] VITALS: BP 120/81
[2018-06-01] MEDS: VANCOMYCIN IVPB SCH (02:18)
[2018-06-01] MEDS: [UNRECOGNIZED DRUG - OTHER] IVPB SCH (02:18)
[2018-06-01 04:00] VITALS: BP 116/70
--- NOTE | 2018-06-01 04:24 | NUR ---
NURSE NOTES: Left a message to regarding 6 beats of V-Tach. PT asymptomatic, sleeping on the bed, is arousable, and A/O x3. Will continue to monitor.
[2018-06-01 05:38] LABS: BASOPHILS % (AUTO) 1.3 % (0.0-2.0); EOSINOPHILS % (AUTO) 1.4 % (0.0-3.0); HEMATOCRIT 43.8 % (37.0-47.0); HEMOGLOBIN 12.7 G/DL (12.0-16.0); LYMPHOCYTES % (AUTO) 9.3 % (20.0-45.0); MEAN CORPUSCULAR VOLUME 86 FL (80-99); MONOCYTES % (AUTO) 6.3 % (1.0-10.0); NEUTROPHILS % (AUTO) 81.7 % (45.0-75.0); PLATELET COUNT 296 K/UL (150-450); RED CELL DISTRIBUTION WIDTH 22.2 % (11.6-14.8)
[2018-06-01 06:04] LABS: ANION GAP 8 mmol/L (5-15); BLOOD UREA NITROGEN 13 mg/dL (7-18); CALCIUM 8.7 MG/DL (8.5-10.1); CARBON DIOXIDE 30 MMOL/L (21-32); CHLORIDE 108 MMOL/L (98-107); CREATININE 1.1 MG/DL (0.55-1.30); POTASSIUM 3.3 MMOL/L (3.5-5.1); SODIUM 146 MMOL/L (136-145)
[2018-06-01] MEDS: NovoLOG Insulin Flexpen SUBQ SCH ×4 (06:30→21:00)
--- NOTE | 2018-06-01 07:49 | NUR ---
HAND-OFF: Report given to LUCIO Fontaine. No acute distress noted at this time.
--- NOTE | 2018-06-01 07:50 | NUR ---
NURSE NOTES: received patient report from jessy abarca. patient is on bed asleep. not in acute distress. comfortable in bed. on 2Li NC. will follow plans of care.
[2018-06-01 08:00] VITALS: BP 150/90
[2018-06-01] MEDS: Ascorbic Acid 500mg tab NG SCH ×2 (08:24→17:04)
[2018-06-01] MEDS: Lisinopril 2.5mg tab ORAL SCH ×2 (08:24→17:04)
[2018-06-01] MEDS: Nitroglycerin Patch 0.4mg TDERMAL SCH (08:25)
[2018-06-01] MEDS: Pantoprazole Inj IVP SCH (08:26)
[2018-06-01] MEDS: Betadine 4oz Bottle TOPIC SCH ×2 (08:27→17:05)
--- NOTE | 2018-06-01 09:45 | NUR ---
RADIOLOGY DEPT CHEST X-RAY DONE -P.DYE
--- NOTE | 2018-06-01 11:31 | Pulmonology Progress Note ---
Assessment/Plan Assessment/Plan 67 y/o female w/ DM, CKD, morbid obesity admitted with b/l LE cellulitis and altered mental status. Problem List: 1. Altered mental status 2. Acute on chronic hypercapnic respiratory failure -intubated 05/15 -self-extubated 05/24 3. Bilateral lower extremity cellulitis 4. RACHELLE on CKD 5. DM 6. Morbid obesity 7. Elevated ammonia level 8. RV failure 9. Acute diastolic Congestive heart failure 10. Combined respiratory and metabolic acidosis, persistent Plan: -monitor respiratory status -noninvasive ventilation 18/6 qhs and prn with breaks for meals -Repeat ABG prn -monitor volumes and renal function -lasix 20 mg IV to q12 and monitor I/O -CXR repeat results pending -Abx per ID -wean oxygen as tolerated Case d/w RN Subjective ROS Limited/Unobtainable: Yes Interval Events: REfusing BiPAP at night. ABG with slight acidosis. On face mask oxygen Constitutional: Reports: no symptoms Allergies: Coded Allergies: ASPIRIN (Verified Allergy, Intermediate, Hives, 01/06/13) PENICILLINS (Verified Allergy, Intermediate, Hives, 01/06/13) Objective Last 24 Hour Vital Signs Date Time Temp Pulse Resp B/P (MAP) Pulse Ox O2 Delivery O2 Flow Rate FiO2 06/01/18 08:25 150/90 06/01/18 08:25 77 150/90 06/01/18 08:24 150/90 06/01/18 08:00 86 06/01/18 08:00 Nasal Cannula 3.0 06/01/18 08:00 3.0 30 06/01/18 08:00 98.4 77 20 150/90 (110) 99 06/01/18 07:15 Nasal Cannula 3.0 32 06/01/18 07:15 100 Nasal Cannula 3.0 32 06/01/18 04:00 Nasal Cannula 3.0 06/01/18 04:00 83 06/01/18 04:00 97.9 83 20 116/70 (85) 96 06/01/18 04:00 3.0 06/01/18 03:00 70 18 100 Facial 30 06/01/18 01:34 81 19 100 Facial 30 06/01/18 00:00 Nasal Cannula 3.0 06/01/18 00:00 3.0 30 06/01/18 00:00 97.7 77 19 120/81 (94) 97 06/01/18 00:00 80 05/31/18 23:06 78 18 100 Facial 30 05/31/18 21:50 100 Nasal Cannula 3.0 32 05/31/18 21:50 Nasal Cannula 3.0 32 05/31/18 20:00 3.0 05/31/18 20:00 89 05/31/18 20:00 Nasal Cannula 3.0 05/31/18 20:00 97.5 88 24 127/67 (87) 100 05/31/18 18:19 148/85 05/31/18 16:00 Nasal Cannula 3.0 05/31/18 16:00 84 05/31/18 16:00 3.0 05/31/18 16:00 97.9 83 20 148/85 (106) 95 05/31/18 12:00 97.2 77 22 155/99 (117) 91 05/31/18 12:00 Nasal Cannula 3.0 05/31/18 12:00 83 05/31/18 12:00 3.0 30 Intake and Output 05/31/18 06/01/18 19:00 07:00 Intake Total 520 ml 60 ml Output Total 1326 ml 1300 ml Balance -806 ml -1240 ml Intake Oral 60 ml IV Total 520 ml Output Urine Total 1325 ml 1300 ml Stool Total 1 ml # Bowel Movements 2 3 General Appearance: no acute distress HEENT: normocephalic, atraumatic Respiratory/Chest: crackles/rales Cardiovascular: normal rate, regular rhythm Abdomen: soft, non tender Extremities: other - improving edema Microbiology Date/Time Source Procedure Growth Status 05/30/18 22:00 Stool Clostridium difficile Toxin Assay - Final Complete Laboratory Tests 06/01/18 03:15: White Blood Count 8.0, Red Blood Count 5.10, Hemoglobin 12.7, Hematocrit 43.8, Mean Corpuscular Volume 86, Mean Corpuscular Hemoglobin 25.0L, Mean Corpuscular Hemoglobin Concent 29.1L, Red Cell Distribution Width 22.2H, Platelet Count 296 , Mean Platelet Volume 9.9, Neutrophils (%) (Auto) 81.7H, Lymphocytes (%) (Auto ) 9.3L, Monocytes (%) (Auto) 6.3, Eosinophils (%) (Auto) 1.4, Basophils (%) ( Auto) 1.3, Sodium Level 146H, Potassium Level 3.3L, Chloride Level 108H, Carbon Dioxide Level 30, Anion Gap 8, Blood Urea Nitrogen 13, Creatinine 1.1, Estimat Glomerular Filtration Rate > 60, Glucose Level 79, Calcium Level 8.7 06/01/18 10:25: Arterial Blood pH 7.334L, Arterial Blood Partial Pressure CO2 51.6H, Arterial Blood Partial Pressure O2 49.2*L, Arterial Blood HCO3 26.8H, Arterial Blood Oxygen Saturation 84.0*L, Arterial Blood Base Excess 0.2, Aditya Test Positive Current Medications Medications (Trade) Dose Ordered Sig/Toya Route PRN Reason Start Time Stop Time Status Last Admin Dose Admin Allopurinol (Allopurinol) 300 mg DAILY NG 05/31/18 09:00 06/18/18 12:59 06/01/18 08:25 Amlodipine Besylate (Norvasc) 2.5 mg DAILY ORAL 05/31/18 09:00 06/26/18 10:05 06/01/18 08:25 Ascorbic Acid (Vitamin C) 500 mg TWICE A DAY NG 05/31/18 09:00 06/15/18 17:59 06/01/18 08:24 Atorvastatin Calcium (Lipitor) 20 mg BEDTIME ORAL 05/31/18 21:00 06/13/18 20:59 05/31/18 21:51 Clopidogrel Bisulfate (Plavix) 75 mg DAILY NG 05/31/18 09:00 06/14/18 08:59 06/01/18 08:24 Dextrose (Dextrose 50%) 25 ml Q30M PRN IV Hypoglycemia 05/31/18 06:30 06/11/18 16:59 Dextrose (Dextrose 50%) 50 ml Q30M PRN IV Hypoglycemia 05/31/18 06:30 06/11/18 16:59 Furosemide (Lasix) 20 mg Q12HR IV 05/31/18 09:00 06/23/18 16:03 06/01/18 08:25 Insulin Aspart (NovoLOG) AC+HS SUBQ 05/31/18 06:30 06/11/18 12:59 Lisinopril (Zestril) 5 mg BID ORAL 05/31/18 18:00 06/30/18 17:59 06/01/18 08:24 Multivitamins (Multivitamins) 1 tab DAILY ORAL 05/31/18 09:00 06/16/18 08:59 06/01/18 08:24 Nitroglycerin (Ntg) 1 patch Q24H TDERMAL 05/31/18 09:00 06/14/18 08:59 06/01/18 08:25 Pantoprazole (Protonix) 40 mg DAILY IVP 05/31/18 09:00 06/13/18 20:59 06/01/18 08:26 Povidone Iodine (Betadine Gretchen) 1 applic BID TOPIC 05/31/18 09:00 06/15/18 08:59 06/01/18 08:27 Vancomycin HCl (Vanco rx to dose) 1 ea DAILY PRN MISC Per rx protocol 05/31/18 09:00 06/22/18 17:29 Vancomycin HCl/ Dextrose 275 ml @ 137.5 mls/ hr Q24H IVPB 06/01/18 02:00 06/04/18 01:59 06/01/18 02:18 Hemal Ritchie MD Jun 01, 2018 11:31
--- NOTE | 2018-06-01 11:38 | Nephrology Progress Note ---
Assessment/Plan Problem List: (1) ARF (acute renal failure) (2) Cellulitis of both lower extremities (3) Venous stasis ulcers of both lower extremities (4) DM (diabetes mellitus) (5) CKD (chronic kidney disease) (6) Morbid (severe) obesity due to excess calories (7) Acute hypoxemic respiratory failure Assessment extubated on bipap as needed- Diabetic Nephropathy Cr lower acute renal failure super imposed on CKD Encephalopathy, CO2 retainer, respiratory failure acute Obesity High Trop High Bili UTI Bilateral LE cellulitis Anemia Plan mag and K supplement as needed pulmonary support, post extubation Zestril and Norvasc for high bp at step down unit 24 h urine crcl 29 cc 24 h protein 0.6 gr pressors as needed Avoid nephrotoxics monitor renal parameters 2D echo Ej Fx 55% kidney WESLEY no pathology reported Per ID , Pulm... meds IV or OG tube Avoid mind altering meds per orders Subjective ROS Limited/Unobtainable: No Constitutional: Reports: malaise Subjective ALOC periodically Objective Objective Last 24 Hour Vital Signs Date Time Temp Pulse Resp B/P (MAP) Pulse Ox O2 Delivery O2 Flow Rate FiO2 06/01/18 08:25 150/90 06/01/18 08:25 77 150/90 06/01/18 08:24 150/90 06/01/18 08:00 86 06/01/18 08:00 Nasal Cannula 3.0 06/01/18 08:00 3.0 30 06/01/18 08:00 98.4 77 20 150/90 (110) 99 06/01/18 07:15 Nasal Cannula 3.0 32 06/01/18 07:15 100 Nasal Cannula 3.0 32 06/01/18 04:00 Nasal Cannula 3.0 06/01/18 04:00 83 06/01/18 04:00 97.9 83 20 116/70 (85) 96 06/01/18 04:00 3.0 06/01/18 03:00 70 18 100 Facial 30 06/01/18 01:34 81 19 100 Facial 30 06/01/18 00:00 Nasal Cannula 3.0 06/01/18 00:00 3.0 30 06/01/18 00:00 97.7 77 19 120/81 (94) 97 06/01/18 00:00 80 05/31/18 23:06 78 18 100 Facial 30 05/31/18 21:50 100 Nasal Cannula 3.0 32 05/31/18 21:50 Nasal Cannula 3.0 32 05/31/18 20:00 3.0 05/31/18 20:00 89 05/31/18 20:00 Nasal Cannula 3.0 05/31/18 20:00 97.5 88 24 127/67 (87) 100 05/31/18 18:19 148/85 05/31/18 16:00 Nasal Cannula 3.0 05/31/18 16:00 84 05/31/18 16:00 3.0 05/31/18 16:00 97.9 83 20 148/85 (106) 95 05/31/18 12:00 97.2 77 22 155/99 (117) 91 05/31/18 12:00 Nasal Cannula 3.0 05/31/18 12:00 83 05/31/18 12:00 3.0 30 Intake and Output 05/31/18 06/01/18 19:00 07:00 Intake Total 520 ml 60 ml Output Total 1326 ml 1300 ml Balance -806 ml -1240 ml Intake Oral 60 ml IV Total 520 ml Output Urine Total 1325 ml 1300 ml Stool Total 1 ml # Bowel Movements 2 3 Laboratory Tests 06/01/18 03:15: White Blood Count 8.0, Red Blood Count 5.10, Hemoglobin 12.7, Hematocrit 43.8, Mean Corpuscular Volume 86, Mean Corpuscular Hemoglobin 25.0L, Mean Corpuscular Hemoglobin Concent 29.1L, Red Cell Distribution Width 22.2H, Platelet Count 296 , Mean Platelet Volume 9.9, Neutrophils (%) (Auto) 81.7H, Lymphocytes (%) (Auto ) 9.3L, Monocytes (%) (Auto) 6.3, Eosinophils (%) (Auto) 1.4, Basophils (%) ( Auto) 1.3, Sodium Level 146H, Potassium Level 3.3L, Chloride Level 108H, Carbon Dioxide Level 30, Anion Gap 8, Blood Urea Nitrogen 13, Creatinine 1.1, Estimat Glomerular Filtration Rate > 60, Glucose Level 79, Calcium Level 8.7 06/01/18 10:25: Arterial Blood pH 7.334L, Arterial Blood Partial Pressure CO2 51.6H, Arterial Blood Partial Pressure O2 49.2*L, Arterial Blood HCO3 26.8H, Arterial Blood Oxygen Saturation 84.0*L, Arterial Blood Base Excess 0.2, Aditya Test Positive Height (Feet): 5 Height (Inches): 3.00 Weight (Pounds): 323 General Appearance: no apparent distress Objective no change Tr Strange MD Jun 01, 2018 11:38
[2018-06-01 11:50] VITALS: BP 154/79
--- NOTE | 2018-06-01 11:53 | NUR ---
ART MUSEUM DOCENTGENERAL DENTIST SI: S/P EXTUBATION HYPOXIA T. 98.4 HR 77 RR 20 B/P 150/90 NC 3L PH 7.33 PCO2 51.6 PO2 49.2 HCO3 26.8 O2 SAT 84.0 IS: VANCO IV LASIX IV NORVASC PO STEP DOWN STATUS
--- NOTE | 2018-06-01 12:15 | Diagnostic Imaging Report ---
Indication: Dyspnea Comparison: 05/25/2018 A single view chest radiograph was obtained. Findings: Interstitial densities and cardiomegaly demonstrated. Prominent vascularity demonstrated. No definite pleural effusions are seen. IMPRESSION: CHF
--- NOTE | 2018-06-01 12:33 | General Progress Note ---
Assessment/Plan Assessment/Plan S, O: status post self-Extubation, PICC line in place, patient is drowsy today , Not following commands. Currently on BIPAP, limited exam PHYSICAL EXAMINATION: HEAD AND NECK: Atraumatic and normocephalic. CHEST: Diffuse bronchial breathing sounds. Overall decreased breathing sounds. ABDOMEN: Grossly morbidly obese. Limited evaluation. MUSCULOSKELETAL: Positive for ulcers and wounds, more diffusely edematous about 2+, superficial wounds on both legs , dressed . NEUROLOGIC: The patient is lethargic , DOES NOT follow commands . limited exam, Meds: Reviewed and reconciled. including Amlodipin 2.5 mg/daily CXR dated 05/28/18 : reviewed ASSESSMENT: 1.ALTERED MENTAL STATUS SECONDARY TO #2 2.Hypercapnic Vent Dependent Respiratory failure: S/P self-extubation, CURRENTLY ON BIPAP 2. shock, ddx: septic vs cardiogenic : Resolved 3. CHF exacerbation, right sided, preserved EF 3. Acute/Chronic Renal F 4. Abnormal Trop: NSTEMI vs Leakage 3. UTI/lower extremity infection Hypertension. 4. Diabetes type 2, controlled with A1c of 6.3. 5. Pain management. 6. PAH 7. 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 HyperNatremia 6. GI and DVT prophylaxis. PLAN OF CARE: Guarded prognosis Off pressor, preserved BP Empirical abx, per ID Will Followup with pulmonary for post - Self- extubation care, C/w lasix, will titrate according to BP patient and the Son advised retirement care at discharge, however insisting to go home, once medically stable I discussed the care with the Son, after his meeting with his mother. He requested transfer to home with hospice care. Notified CM, will re-assess patient's mental status for tomorrow Subjective Allergies: Coded Allergies: ASPIRIN (Verified Allergy, Intermediate, Hives, 01/06/13) PENICILLINS (Verified Allergy, Intermediate, Hives, 01/06/13) Objective Last 24 Hour Vital Signs Date Time Temp Pulse Resp B/P (MAP) Pulse Ox O2 Delivery O2 Flow Rate FiO2 06/01/18 12:00 3.0 30 06/01/18 12:00 Nasal Cannula 3.0 06/01/18 11:50 98.0 87 20 154/79 (104) 100 2/5/19 08:25 150/90 06/01/18 08:25 77 150/90 06/01/18 08:24 150/90 06/01/18 08:00 86 06/01/18 08:00 Nasal Cannula 3.0 06/01/18 08:00 3.0 30 06/01/18 08:00 98.4 77 20 150/90 (110) 99 06/01/18 07:15 Nasal Cannula 3.0 32 06/01/18 07:15 100 Nasal Cannula 3.0 32 06/01/18 04:00 Nasal Cannula 3.0 06/01/18 04:00 83 06/01/18 04:00 97.9 83 20 116/70 (85) 96 06/01/18 04:00 3.0 06/01/18 03:00 70 18 100 Facial 30 06/01/18 01:34 81 19 100 Facial 30 06/01/18 00:00 Nasal Cannula 3.0 06/01/18 00:00 3.0 30 06/01/18 00:00 97.7 77 19 120/81 (94) 97 06/01/18 00:00 80 05/31/18 23:06 78 18 100 Facial 30 05/31/18 21:50 100 Nasal Cannula 3.0 32 05/31/18 21:50 Nasal Cannula 3.0 32 05/31/18 20:00 3.0 05/31/18 20:00 89 05/31/18 20:00 Nasal Cannula 3.0 05/31/18 20:00 97.5 88 24 127/67 (87) 100 05/31/18 18:19 148/85 05/31/18 16:00 Nasal Cannula 3.0 05/31/18 16:00 84 05/31/18 16:00 3.0 05/31/18 16:00 97.9 83 20 148/85 (106) 95 Intake and Output 05/31/18 06/01/18 19:00 07:00 Intake Total 520 ml 60 ml Output Total 1326 ml 1300 ml Balance -806 ml -1240 ml Intake Oral 60 ml IV Total 520 ml Output Urine Total 1325 ml 1300 ml Stool Total 1 ml # Bowel Movements 2 3 Laboratory Tests 06/01/18 03:15: White Blood Count 8.0, Red Blood Count 5.10, Hemoglobin 12.7, Hematocrit 43.8, Mean Corpuscular Volume 86, Mean Corpuscular Hemoglobin 25.0L, Mean Corpuscular Hemoglobin Concent 29.1L, Red Cell Distribution Width 22.2H, Platelet Count 296 , Mean Platelet Volume 9.9, Neutrophils (%) (Auto) 81.7H, Lymphocytes (%) (Auto ) 9.3L, Monocytes (%) (Auto) 6.3, Eosinophils (%) (Auto) 1.4, Basophils (%) ( Auto) 1.3, Sodium Level 146H, Potassium Level 3.3L, Chloride Level 108H, Carbon Dioxide Level 30, Anion Gap 8, Blood Urea Nitrogen 13, Creatinine 1.1, Estimat Glomerular Filtration Rate > 60, Glucose Level 79, Calcium Level 8.7 06/01/18 10:25: Arterial Blood pH 7.334L, Arterial Blood Partial Pressure CO2 51.6H, Arterial Blood Partial Pressure O2 49.2*L, Arterial Blood HCO3 26.8H, Arterial Blood Oxygen Saturation 84.0*L, Arterial Blood Base Excess 0.2, Aditya Test Positive Height (Feet): 5 Height (Inches): 3.00 Weight (Pounds): 323 Margaret Mckinney MD Jun 01, 2018 12:33
--- NOTE | 2018-06-01 13:25 | NUR ---
ST NOTE: ST WEEKLY/SWALLOW/SPEECH/LANGUAGE/COGNITIONS STATUS ST WEEKLY: PT PARTIALLY MET PO INTAKE GOALS. NURSING STAFF MET ASPIRATION PRECAUTIONS GOALS. CONTINUE SKILLED ST SERVICE TO FOLLOW UP. CURRENT STATUS: CHART REVIEWED. PT HAS BIPAP PRN. PER CXR: Interstitial densities and cardiomegaly demonstrated. Prominent vascularity demonstrated. No definite pleural effusions are seen. IMPRESSION: CHF PT SEEN AT BEDSIDE IN AM. ALERT, COOPERATIVE, VERBAL BUT SEEMS SLIGHTLY CONFUSED. PT WITH NC(3L).PER ROLLER OPERATOR, PT ONLY DRANK LIQUIDS THIS MORNING; AND DID NOT EAT MASTICATED SOLID. PT WAS ABLE TO TOLERATE THIN AND NECTAR THICK LIQUIDS WITHOUT OVERT S/S OF ASPIRATION. GIVEN THIN LIQUIDS TRIAL VIA CUP AND PUREE VIA TSP, GOOD ORAL TRANSIT TIME AND OROPHARYNGEAL TRANSIT TIME, FAIR LARYNGEAL ELEVATION AND NO OVERT S/S OF ASPIRATION. PT REFUSED ANY MASTICATED SOLID TRIALS. SPEECH/LANGUAGE/COGNITION STATUS: PT IS ABLE TO EXPRESS BASIC WANTS AND NEEDS AND ABLE TO RECALL HER BIRTHDAY AND HER HOME ADDRESS. ABLE TO FOLLOW DIRECTIONS. 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 DISCUSSED WITH RNJUANA. PER RN, NOTICED THAT PT HAS SHORT-TERM MEMORY DEFICITS, UNABLE TO RECALL RECENT EVENTS. CONTINUE SKILLED ST SERVICE TO ADDRESS: SWALLOWING AND SPEECH/LANGUAGE/COGNITION
[2018-06-01] MEDS ORDERED: NS 275ml ONE (14:20)
--- NOTE | 2018-06-01 14:24 | Infectious Diseases Prog Note ---
Assessment/Plan Problems: (1) VAP (ventilator-associated pneumonia) Assessment & Plan: with coag negative staphylococcus and proteus mirabilis , already on vancomycin for two weeks . recommend aspiration precaution . EOT 06/09 (2) Bacteremia due to Enterococcus Assessment & Plan: due to enterococcus faecalis suspect picc line related blood stream infection , PICC line was removed . continue vancomycin renally dosed as per pharmacy for two weeks TOTAL . EOT 06/09/18 (3) Bilateral lower leg cellulitis Assessment & Plan: wound culture grew klibsella oxytoca, and Sphingomonas paucimobilis , continue vancomycin and aztreonam empirically with local wounds care . await on bone scan of both legs once clinically stable . (4) Nonhealing ulcer of left lower extremity Assessment & Plan: wound culture grew klebsiella oxytoca and Sphingomonas paucimobilis, now on aztreonam and vancomycin , continue local wound care and dressings change as per wound care service as per plastic surgery recommendations (5) CKD (chronic kidney disease) Assessment & Plan: avoid nephrotoxics , renally dosed antibiotics as per pharmacy (6) DM (diabetes mellitus) Assessment & Plan: recommend tight glycemic control to keep blood glucose between 100-140 (7) Acute encephalopathy Assessment & Plan: suspect metabolic with high ammonia level, continue lactulose , consult neurology if no improvement (8) Acute hypoxemic respiratory failure Assessment & Plan: due to the above , self extubated , now on NASAL CANULA , and BIPAP prn . pulmonary is following, Subjective Constitutional: Reports: no symptoms HEENT: Reports: no symptoms Respiratory: Reports: no symptoms Breasts: Reports: no symptoms Cardiovascular: Reports: no symptoms Gastrointestinal/Abdominal: Reports: no symptoms Genitourinary: Reports: no symptoms Neurologic: Reports: no symptoms Psychiatric: Reports: no symptoms Skin: Reports: no symptoms Endocrine: Reports: no symptoms Hematologic: Reports: no symptoms Musculoskeletal: Reports: no symptoms Allergies: Coded Allergies: ASPIRIN (Verified Allergy, Intermediate, Hives, 01/06/13) PENICILLINS (Verified Allergy, Intermediate, Hives, 01/06/13) Subjective she was transferred out of ICU, off BIPAP, and nasal canula , comfortable lying in bed, afebrile, denied any fever or chills. Objective Vital Signs Last 24 Hour Vital Signs Date Time Temp Pulse Resp B/P (MAP) Pulse Ox O2 Delivery O2 Flow Rate FiO2 06/01/18 12:00 3.0 30 06/01/18 12:00 Nasal Cannula 3.0 06/01/18 11:50 98.0 87 20 154/79 (104) 100 06/01/18 08:25 150/90 06/01/18 08:25 77 150/90 06/01/18 08:24 150/90 06/01/18 08:00 86 06/01/18 08:00 Nasal Cannula 3.0 06/01/18 08:00 3.0 30 06/01/18 08:00 98.4 77 20 150/90 (110) 99 06/01/18 07:15 Nasal Cannula 3.0 32 06/01/18 07:15 100 Nasal Cannula 3.0 32 06/01/18 04:00 Nasal Cannula 3.0 06/01/18 04:00 83 06/01/18 04:00 97.9 83 20 116/70 (85) 96 06/01/18 04:00 3.0 06/01/18 03:00 70 18 100 Facial 30 06/01/18 01:34 81 19 100 Facial 30 06/01/18 00:00 Nasal Cannula 3.0 06/01/18 00:00 3.0 30 06/01/18 00:00 97.7 77 19 120/81 (94) 97 06/01/18 00:00 80 05/31/18 23:06 78 18 100 Facial 30 05/31/18 21:50 100 Nasal Cannula 3.0 32 05/31/18 21:50 Nasal Cannula 3.0 32 05/31/18 20:00 3.0 05/31/18 20:00 89 05/31/18 20:00 Nasal Cannula 3.0 05/31/18 20:00 97.5 88 24 127/67 (87) 100 05/31/18 18:19 148/85 05/31/18 16:00 Nasal Cannula 3.0 05/31/18 16:00 84 05/31/18 16:00 3.0 05/31/18 16:00 97.9 83 20 148/85 (106) 95 Height (Feet): 5 Height (Inches): 3.00 Weight (Pounds): 323 General Appearance: WD/WN, no acute distress HEENT: normocephalic, atraumatic, anicteric, mucous membranes moist, PERRL, EOMI, pharynx normal, supple, no JVD Respiratory/Chest: chest wall non-tender, lungs clear, normal breath sounds, no respiratory distress, no accessory muscle use Cardiovascular: normal peripheral pulses, normal rate, regular rhythm, no gallop/murmur, no JVD Abdomen: normal bowel sounds, soft, non tender, no organomegaly, non distended , no mass, no scars Extremities: no cyanosis, no clubbing, other Skin: no rash, no lesions, ulcers Neurologic/Psychiatric: alert, responsive Lymphatic: no neck adenopathy, no groin adenopathy Musculoskeletal: normal muscle bulk, no effusion Microbiology Date/Time Source Procedure Growth Status 05/30/18 22:00 Stool Clostridium difficile Toxin Assay - Final Complete Laboratory Tests Test 06/01/18 03:15 06/01/18 10:25 White Blood Count 8.0 K/UL (4.8-10.8) Red Blood Count 5.10 M/UL (4.20-5.40) Hemoglobin 12.7 G/DL (12.0-16.0) Hematocrit 43.8 % (37.0-47.0) Mean Corpuscular Volume 86 FL (80-99) Mean Corpuscular Hemoglobin 25.0 PG (27.0-31.0) L Mean Corpuscular Hemoglobin Concent 29.1 G/DL (32.0-36.0) L Red Cell Distribution Width 22.2 % (11.6-14.8) H Platelet Count 296 K/UL (150-450) Mean Platelet Volume 9.9 FL (6.5-10.1) Neutrophils (%) (Auto) 81.7 % (45.0-75.0) H Lymphocytes (%) (Auto) 9.3 % (20.0-45.0) L Monocytes (%) (Auto) 6.3 % (1.0-10.0) Eosinophils (%) (Auto) 1.4 % (0.0-3.0) Basophils (%) (Auto) 1.3 % (0.0-2.0) Sodium Level 146 MMOL/L (136-145) H Potassium Level 3.3 MMOL/L (3.5-5.1) L Chloride Level 108 MMOL/L (98-107) H Carbon Dioxide Level 30 MMOL/L (21-32) Anion Gap 8 mmol/L (5-15) Blood Urea Nitrogen 13 mg/dL (7-18) Creatinine 1.1 MG/DL (0.55-1.30) Estimat Glomerular Filtration Rate > 60 mL/min (>60) Glucose Level 79 MG/DL (74-106) Calcium Level 8.7 MG/DL (8.5-10.1) Arterial Blood pH 7.334 (7.350-7.450) Arterial Blood Partial Pressure CO2 51.6 mmHg (35.0-45.0) H Arterial Blood Partial Pressure O2 49.2 mmHg (75.0-100.0) Arterial Blood HCO3 26.8 mmol/L (22.0-26.0) H Arterial Blood Oxygen Saturation 84.0 % (95-100) *L Arterial Blood Base Excess 0.2 (-2-2) Aditya Test Positive Current Medications Medications (Trade) Dose Ordered Sig/Toya Route PRN Reason Start Time Stop Time Status Last Admin Dose Admin Allopurinol (Allopurinol) 300 mg DAILY NG 05/31/18 09:00 06/18/18 12:59 06/01/18 08:25 Amlodipine Besylate (Norvasc) 2.5 mg BID ORAL 06/01/18 18:00 06/26/18 10:05 Ascorbic Acid (Vitamin C) 500 mg TWICE A DAY NG 05/31/18 09:00 06/15/18 17:59 06/01/18 08:24 Atorvastatin Calcium (Lipitor) 20 mg BEDTIME ORAL 05/31/18 21:00 06/13/18 20:59 05/31/18 21:51 Clopidogrel Bisulfate (Plavix) 75 mg DAILY NG 05/31/18 09:00 06/14/18 08:59 06/01/18 08:24 Dextrose (Dextrose 50%) 25 ml Q30M PRN IV Hypoglycemia 05/31/18 06:30 06/11/18 16:59 Dextrose (Dextrose 50%) 50 ml Q30M PRN IV Hypoglycemia 05/31/18 06:30 06/11/18 16:59 Furosemide (Lasix) 20 mg Q12HR IV 05/31/18 09:00 06/23/18 16:03 06/01/18 08:25 Insulin Aspart (NovoLOG) AC+HS SUBQ 05/31/18 06:30 06/11/18 12:59 Lisinopril (Zestril) 5 mg BID ORAL 05/31/18 18:00 06/30/18 17:59 06/01/18 08:24 Multivitamins (Multivitamins) 1 tab DAILY ORAL 05/31/18 09:00 06/16/18 08:59 06/01/18 08:24 Nitroglycerin (Ntg) 1 patch Q24H TDERMAL 05/31/18 09:00 06/14/18 08:59 06/01/18 08:25 Pantoprazole (Protonix) 40 mg EVERY 12 HOURS ORAL 06/01/18 21:00 07/01/18 20:59 Potassium Chloride (K-Dur) 40 meq TWICE A DAY ORAL 06/01/18 11:38 07/01/18 11:37 06/01/18 12:16 Povidone Iodine (Betadine Gretchen) 1 applic BID TOPIC 05/31/18 09:00 06/15/18 08:59 06/01/18 08:27 Vancomycin HCl (Vanco rx to dose) 1 ea DAILY PRN MISC Per rx protocol 05/31/18 09:00 06/22/18 17:29 Vancomycin HCl/ Dextrose 275 ml @ 137.5 mls/ hr Q24H IVPB 06/01/18 02:00 06/04/18 01:59 06/01/18 02:18 Juice Wilkerson M.D. Jun 01, 2018 14:24
--- NOTE | 2018-06-01 14:54 | GI Progress Note ---
Assessment/Plan Problems: (1) DM (diabetes mellitus) ICD Codes: E11.9 - DM (diabetes mellitus) SNOMED: 62121484 (2) Intractable abdominal pain ICD Codes: R10.9 - Unspecified abdominal pain SNOMED: 06346650 (3) Elevated transaminase level ICD Codes: R74.0 - Nonspecific elevation of levels of transaminase and lactic acid dehydrogenase [LDH] SNOMED: 318203818 (4) Abdominal distension ICD Codes: R14.0 - Abdominal distension (gaseous) SNOMED: 38024100 (5) Liver disease ICD Codes: K76.9 - Liver disease, unspecified SNOMED: 115681581 (6) Acute encephalopathy ICD Codes: G93.40 - Encephalopathy, unspecified SNOMED: 43681870, 019452616 Status: progressing Status Narrative Discussed with Dr. Paul Assessment/Plan OB stool negative x2 stable H&H generalized anasarca hepatitis panel negative abdominal US reviewed >> - Ascites - Borderline hepatomegaly - Thick-walled gallbladder, likely in part artifact of nondistention, and in part due to hemodynamic factors causing the ascites. No definite gallstones. Acute cholecystitis not completely excludable, due to the wall thickening, and hepatobiliary scan should be considered if there is high clinical suspicion for such. - Negative for dilated ducts - To and fro flow within the main portal vein, could indicate portal hypertension Paracentesis ordered on cardiac diet cont lactulose prn transfusions bowel regime ppi fu labs will decrease laxatives The patient was seen and examined at bedside and all new and available data was reviewed in the patients chart. I agree with the above findings, impression and plan. (Patient seen earlier today. Signature stamp does not reflect patient encounter time.). - Robert Paul MD Subjective Subjective denies abdominal pain tolerating diet Objective Last 24 Hour Vital Signs Date Time Temp Pulse Resp B/P (MAP) Pulse Ox O2 Delivery O2 Flow Rate FiO2 06/01/18 12:00 3.0 30 06/01/18 12:00 Nasal Cannula 3.0 06/01/18 11:50 98.0 87 20 154/79 (104) 100 06/01/18 08:25 150/90 06/01/18 08:25 77 150/90 06/01/18 08:24 150/90 06/01/18 08:00 86 06/01/18 08:00 Nasal Cannula 3.0 06/01/18 08:00 3.0 30 06/01/18 08:00 98.4 77 20 150/90 (110) 99 06/01/18 07:15 Nasal Cannula 3.0 32 06/01/18 07:15 100 Nasal Cannula 3.0 32 06/01/18 04:00 Nasal Cannula 3.0 06/01/18 04:00 83 06/01/18 04:00 97.9 83 20 116/70 (85) 96 06/01/18 04:00 3.0 06/01/18 03:00 70 18 100 Facial 30 06/01/18 01:34 81 19 100 Facial 30 06/01/18 00:00 Nasal Cannula 3.0 06/01/18 00:00 3.0 30 06/01/18 00:00 97.7 77 19 120/81 (94) 97 06/01/18 00:00 80 05/31/18 23:06 78 18 100 Facial 30 05/31/18 21:50 100 Nasal Cannula 3.0 32 05/31/18 21:50 Nasal Cannula 3.0 32 05/31/18 20:00 3.0 05/31/18 20:00 89 05/31/18 20:00 Nasal Cannula 3.0 05/31/18 20:00 97.5 88 24 127/67 (87) 100 05/31/18 18:19 148/85 05/31/18 16:00 Nasal Cannula 3.0 05/31/18 16:00 84 05/31/18 16:00 3.0 05/31/18 16:00 97.9 83 20 148/85 (106) 95 Intake and Output 05/31/18 06/01/18 19:00 07:00 Intake Total 520 ml 60 ml Output Total 1326 ml 1300 ml Balance -806 ml -1240 ml Intake Oral 60 ml IV Total 520 ml Output Urine Total 1325 ml 1300 ml Stool Total 1 ml # Bowel Movements 2 3 Laboratory Tests Test 06/01/18 03:15 06/01/18 10:25 White Blood Count 8.0 K/UL (4.8-10.8) Red Blood Count 5.10 M/UL (4.20-5.40) Hemoglobin 12.7 G/DL (12.0-16.0) Hematocrit 43.8 % (37.0-47.0) Mean Corpuscular Volume 86 FL (80-99) Mean Corpuscular Hemoglobin 25.0 PG (27.0-31.0) L Mean Corpuscular Hemoglobin Concent 29.1 G/DL (32.0-36.0) L Red Cell Distribution Width 22.2 % (11.6-14.8) H Platelet Count 296 K/UL (150-450) Mean Platelet Volume 9.9 FL (6.5-10.1) Neutrophils (%) (Auto) 81.7 % (45.0-75.0) H Lymphocytes (%) (Auto) 9.3 % (20.0-45.0) L Monocytes (%) (Auto) 6.3 % (1.0-10.0) Eosinophils (%) (Auto) 1.4 % (0.0-3.0) Basophils (%) (Auto) 1.3 % (0.0-2.0) Sodium Level 146 MMOL/L (136-145) H Potassium Level 3.3 MMOL/L (3.5-5.1) L Chloride Level 108 MMOL/L (98-107) H Carbon Dioxide Level 30 MMOL/L (21-32) Anion Gap 8 mmol/L (5-15) Blood Urea Nitrogen 13 mg/dL (7-18) Creatinine 1.1 MG/DL (0.55-1.30) Estimat Glomerular Filtration Rate > 60 mL/min (>60) Glucose Level 79 MG/DL (74-106) Calcium Level 8.7 MG/DL (8.5-10.1) Arterial Blood pH 7.334 (7.350-7.450) Arterial Blood Partial Pressure CO2 51.6 mmHg (35.0-45.0) H Arterial Blood Partial Pressure O2 49.2 mmHg (75.0-100.0) Arterial Blood HCO3 26.8 mmol/L (22.0-26.0) H Arterial Blood Oxygen Saturation 84.0 % (95-100) *L Arterial Blood Base Excess 0.2 (-2-2) Aditya Test Positive Height (Feet): 5 Height (Inches): 3.00 Weight (Pounds): 323 General Appearance: WD/WN, no apparent distress, alert, morbidly obese Cardiovascular: normal rate Respiratory/Chest: normal breath sounds, no respiratory distress Abdominal Exam: normal bowel sounds, non tender, soft Extremities: non-tender Otilio Cohen NP Jun 01, 2018 14:54
--- NOTE | 2018-06-01 14:59 | NUR ---
RESPIRATORY NOTE: Pt refuses to wear bipap, continues to remove mask. RN: Minal aware. Vitals wnl. Will continue to monitor.
--- NOTE | 2018-06-01 15:23 | NUR ---
RD ASSESSMENT & RECOMMENDATIONS SEE CARE ACTIVITY FOR COMPLETE ASSESSMENT DAILY ESTIMATED NEEDS: Needs based on Pulmonary, wounds, DM, morbid obesity (71.5kg abw) 20-25 kcals/kg 8751-1774 total kcals 1.25-1.5 g protein/kg 89-107 g total protein Fluid per MD, on lasix. mL/kg total fluid mLs NUTRITION DIAGNOSIS: 1) Increased protein needs r/t wound healing as evidenced by pt w/ chronic LLE ulcers. 2) Morbid obesity R/T excessive energy intake as evidenced by BMI>50 per guidelines. 3) Swallowing difficulty r/t respiratory status as evidenced by s/p extubation, recs for puree and NTL by [employer] IN[employer]. (UPDATED) CURRENT DIET: Cardiac ms chopped w/ NTL PO DIET RECOMMENDATIONS: CARDIAC + ENSURE ENLIVE BID / texture per [employer] ADDITIONAL RECOMMENDATIONS: 1) RE-calibrate bed scale (wts per EMR: 200#, 316#, 341#) 2) Wound care: add NELY BID + MVI x1 + Vit C 250mg daily 3) Monitor lytes, replete as needed (low Mg) 4) [facility] INST[employer]ER eval post extubation for appropriate texture- recs for puree, NTL 5) Monitor PO intake w/ BG, need for carb control diet 6) Add ENSURE BID w/ con't poor po intake .
--- NOTE | 2018-06-01 15:58 | GI Progress Note ---
Assessment/Plan Problems: (1) DM (diabetes mellitus) ICD Codes: E11.9 - DM (diabetes mellitus) SNOMED: 62278179 (2) Intractable abdominal pain ICD Codes: R10.9 - Unspecified abdominal pain SNOMED: 27010032 (3) Elevated transaminase level ICD Codes: R74.0 - Nonspecific elevation of levels of transaminase and lactic acid dehydrogenase [LDH] SNOMED: 663973688 (4) Abdominal distension ICD Codes: R14.0 - Abdominal distension (gaseous) SNOMED: 06034411 (5) Liver disease ICD Codes: K76.9 - Liver disease, unspecified SNOMED: 653295729 (6) Acute encephalopathy ICD Codes: G93.40 - Encephalopathy, unspecified SNOMED: 99755370, 861708675 Status: stable Status Narrative Discussed with Dr. Paul. Assessment/Plan OB stool negative x2 stable H&H generalized anasarca hepatitis panel negative abdominal US reviewed >> - Ascites - Borderline hepatomegaly - Thick-walled gallbladder, likely in part artifact of nondistention, and in part due to hemodynamic factors causing the ascites. No definite gallstones. Acute cholecystitis not completely excludable, due to the wall thickening, and hepatobiliary scan should be considered if there is high clinical suspicion for such. - Negative for dilated ducts - To and fro flow within the main portal vein, could indicate portal hypertension Paracentesis ordered, dc plavix for 72 hours. Restart after procedure. on cardiac diet cont lactulose prn transfusions bowel regime ppi fu labs will decrease laxatives The patient was seen and examined at bedside and all new and available data was reviewed in the patients chart. I agree with the above findings, impression and plan. (Patient seen earlier today. Signature stamp does not reflect patient encounter time.). - Robert Paul MD Subjective Subjective denies abdominal pain tolerating diet Objective Last 24 Hour Vital Signs Date Time Temp Pulse Resp B/P (MAP) Pulse Ox O2 Delivery O2 Flow Rate FiO2 06/01/18 12:00 85 06/01/18 12:00 3.0 30 06/01/18 12:00 Nasal Cannula 3.0 06/01/18 11:50 98.0 87 20 154/79 (104) 100 06/01/18 08:25 150/90 06/01/18 08:25 77 150/90 06/01/18 08:24 150/90 06/01/18 08:00 86 06/01/18 08:00 Nasal Cannula 3.0 06/01/18 08:00 3.0 30 06/01/18 08:00 98.4 77 20 150/90 (110) 99 06/01/18 07:15 Nasal Cannula 3.0 32 06/01/18 07:15 100 Nasal Cannula 3.0 32 06/01/18 04:00 Nasal Cannula 3.0 06/01/18 04:00 83 06/01/18 04:00 97.9 83 20 116/70 (85) 96 06/01/18 04:00 3.0 06/01/18 03:00 70 18 100 Facial 30 06/01/18 01:34 81 19 100 Facial 30 06/01/18 00:00 Nasal Cannula 3.0 06/01/18 00:00 3.0 30 06/01/18 00:00 97.7 77 19 120/81 (94) 97 06/01/18 00:00 80 05/31/18 23:06 78 18 100 Facial 30 05/31/18 21:50 100 Nasal Cannula 3.0 32 05/31/18 21:50 Nasal Cannula 3.0 32 05/31/18 20:00 3.0 05/31/18 20:00 89 05/31/18 20:00 Nasal Cannula 3.0 05/31/18 20:00 97.5 88 24 127/67 (87) 100 05/31/18 18:19 148/85 05/31/18 16:00 Nasal Cannula 3.0 05/31/18 16:00 84 05/31/18 16:00 3.0 05/31/18 16:00 97.9 83 20 148/85 (106) 95 Intake and Output 05/31/18 06/01/18 18:59 06:59 Intake Total 520 ml 60 ml Output Total 1326 ml 1300 ml Balance -806 ml -1240 ml Intake Oral 60 ml IV Total 520 ml Output Urine Total 1325 ml 1300 ml Stool Total 1 ml # Bowel Movements 2 3 Laboratory Tests Test 06/01/18 03:15 06/01/18 10:25 White Blood Count 8.0 K/UL (4.8-10.8) Red Blood Count 5.10 M/UL (4.20-5.40) Hemoglobin 12.7 G/DL (12.0-16.0) Hematocrit 43.8 % (37.0-47.0) Mean Corpuscular Volume 86 FL (80-99) Mean Corpuscular Hemoglobin 25.0 PG (27.0-31.0) L Mean Corpuscular Hemoglobin Concent 29.1 G/DL (32.0-36.0) L Red Cell Distribution Width 22.2 % (11.6-14.8) H Platelet Count 296 K/UL (150-450) Mean Platelet Volume 9.9 FL (6.5-10.1) Neutrophils (%) (Auto) 81.7 % (45.0-75.0) H Lymphocytes (%) (Auto) 9.3 % (20.0-45.0) L Monocytes (%) (Auto) 6.3 % (1.0-10.0) Eosinophils (%) (Auto) 1.4 % (0.0-3.0) Basophils (%) (Auto) 1.3 % (0.0-2.0) Sodium Level 146 MMOL/L (136-145) H Potassium Level 3.3 MMOL/L (3.5-5.1) L Chloride Level 108 MMOL/L (98-107) H Carbon Dioxide Level 30 MMOL/L (21-32) Anion Gap 8 mmol/L (5-15) Blood Urea Nitrogen 13 mg/dL (7-18) Creatinine 1.1 MG/DL (0.55-1.30) Estimat Glomerular Filtration Rate > 60 mL/min (>60) Glucose Level 79 MG/DL (74-106) Calcium Level 8.7 MG/DL (8.5-10.1) Arterial Blood pH 7.334 (7.350-7.450) Arterial Blood Partial Pressure CO2 51.6 mmHg (35.0-45.0) H Arterial Blood Partial Pressure O2 49.2 mmHg (75.0-100.0) Arterial Blood HCO3 26.8 mmol/L (22.0-26.0) H Arterial Blood Oxygen Saturation 84.0 % (95-100) *L Arterial Blood Base Excess 0.2 (-2-2) Aditya Test Positive Height (Feet): 5 Height (Inches): 3.00 Weight (Pounds): 323 Otilio Cohen NP Jun 01, 2018 15:58
[2018-06-01 16:00] VITALS: BP 146/100
--- NOTE | 2018-06-01 16:13 | NUR ---
NURSE NOTES: estuardo bhatt NP, dc plavix in preparation for US guided paracentesis.
--- NOTE | 2018-06-01 19:20 | NUR ---
NURSE NOTES: Received report from Luis Eduardo Bergman RN. Pt is sleeping in the bed w/o distress in 4L NC, arousable by voice stimuli. HR 88 noted in the monitor. Anaya cath applied, patent and draining well. B. soft wrist restrains are applied. IV site is asymptomatic. Safety measures are applied with bed alarm on, bed in lowest position and side rails up x2, and breaks are engaged. Call light and side table are w/in reach. Will follow plans of care.
--- NOTE | 2018-06-01 19:29 | NUR ---
HAND-OFF: Report given to grace abarca.NURSE NOTES:
[2018-06-01 20:00] VITALS: BP 144/75
[2018-06-01] MEDS: Atorvastatin 20mg tab ORAL SCH (21:50)
[2018-06-02] VITALS: BP 129/85
[2018-06-02 01:15] LABS: BASOPHILS % (AUTO) 1.3 % (0.0-2.0); EOSINOPHILS % (AUTO) 1.8 % (0.0-3.0); HEMATOCRIT 45.7 % (37.0-47.0); HEMOGLOBIN 13.3 G/DL (12.0-16.0); LYMPHOCYTES % (AUTO) 10.7 % (20.0-45.0); MEAN CORPUSCULAR VOLUME 86 FL (80-99); MONOCYTES % (AUTO) 5.8 % (1.0-10.0); NEUTROPHILS % (AUTO) 80.5 % (45.0-75.0); PLATELET COUNT 276 K/UL (150-450); RED BLOOD COUNT 5.34 M/UL (4.20-5.40); RED CELL DISTRIBUTION WIDTH 22.3 % (11.6-14.8); WHITE BLOOD COUNT 7.7 K/UL (4.8-10.8)
[2018-06-02 01:47] LABS: ANION GAP 9 mmol/L (5-15); BLOOD UREA NITROGEN 12 mg/dL (7-18); CARBON DIOXIDE 27 MMOL/L (21-32); CHLORIDE 109 MMOL/L (98-107); CREATININE 0.8 MG/DL (0.55-1.30); POTASSIUM 4.3 MMOL/L (3.5-5.1); SODIUM 145 MMOL/L (136-145)
[2018-06-02] MEDS: VANCOMYCIN IVPB SCH (02:12)
[2018-06-02] MEDS: [UNRECOGNIZED DRUG - OTHER] IVPB SCH (02:12)
--- NOTE | 2018-06-02 03:21 | NUR ---
NURSE NOTES: Pt was cleaned, dried, and repositioned. Pt removed IV insertion when restrain was off to be repositioned.New IV insertion was given and Vancomycin is running. Bilateral soft wrist restrains are applied. Pt also refused BiPap. 4L NC is applied and O2 sat is 99%. Anaya cath. is patent and draining. Currently, pt is sleeping, no distress noted . Will continue to monitor.
[2018-06-02 04:00] VITALS: BP 121/70
[2018-06-02] MEDS: NovoLOG Insulin Flexpen SUBQ SCH ×4 (06:30→21:00)
--- NOTE | 2018-06-02 07:15 | NUR ---
HAND-OFF: Report given to Karina Pineda RN. Endorsed plans of care.
--- NOTE | 2018-06-02 07:16 | NUR ---
NURSE NOTES: RECEIVED PATIENT FROM Tatum BONILLA RN. PATIENT IS LYING IN BED, ASLEEP. HOOKED TO AZURE ARCHITECT. ON 3L NC. NO SIGNS OF DISTRESS OF THE MOMENT. [place] CONNECTED TO BAG, DRAINING URINE. NOTED SKIN ALTERATION. WITH IV ON L AC G22, SL. CALL LIGHT WITHIN REACH. BED AT LOWEST POSITION, SIDE RAILS UP. WILL CONTINUE TO MONITOR.
[2018-06-02 08:00] VITALS: BP 150/89
--- NOTE | 2018-06-02 09:51 | General Progress Note ---
Assessment/Plan Assessment/Plan S, O: status post self-Extubation, PICC line in place, patient is drowsy today , limited following commands. Currently on BIPAP PRN , limited exam PHYSICAL EXAMINATION: HEAD AND NECK: Atraumatic and normocephalic. CHEST: Diffuse bronchial breathing sounds. Overall decreased breathing sounds. ABDOMEN: Grossly morbidly obese. Limited evaluation. MUSCULOSKELETAL: Positive for ulcers and wounds, more diffusely edematous about 2+, superficial wounds on both legs , dressed . NEUROLOGIC: The patient is less lethargic , limited follow commands . limited exam, Meds: Reviewed and reconciled. including Amlodipin 2.5 mg/daily CXR dated 05/28/18 : reviewed ASSESSMENT: 1.ALTERED MENTAL STATUS SECONDARY TO #2 2.Hypercapnic Vent Dependent Respiratory failure: S/P self-extubation, CURRENTLY ON BIPAP 2. shock, septic : Resolved 3. CHF exacerbation, right sided, preserved EF 3. Acute/Chronic Renal F 4. Abnormal Trop: NSTEMI vs Leakage 3. UTI/lower extremity infection Hypertension. 4. Diabetes type 2, controlled with A1c of 6.3. 5. Pain management. 6. PAH 7. 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 HyperNatremia 6. GI and DVT prophylaxis. PLAN OF CARE: Guarded prognosis Off pressor, preserved BP current - culture guided abx, per ID Will Followup with pulmonary for post - Self- extubation care, C/w lasix, will titrate according to BP patient and the Son advised [facility] care at discharge, however insisting to go home, once medically stable I discussed the care with the Son, after his meeting with his mother. requested transfer to home with hospice care. Notified CM, will transition to home with hospice care Subjective Allergies: Coded Allergies: ASPIRIN (Verified Allergy, Intermediate, Hives, 01/06/13) PENICILLINS (Verified Allergy, Intermediate, Hives, 01/06/13) Objective Last 24 Hour Vital Signs Date Time Temp Pulse Resp B/P (MAP) Pulse Ox O2 Delivery O2 Flow Rate FiO2 06/02/18 08:00 97.7 82 20 150/89 (109) 100 06/02/18 08:00 72 06/02/18 08:00 3.0 06/02/18 04:42 75 06/02/18 04:00 Nasal Cannula 4.0 06/02/18 04:00 3.0 06/02/18 04:00 97.9 80 20 121/70 (87) 100 06/02/18 00:00 90 06/02/18 00:00 Nasal Cannula 4.0 06/02/18 00:00 97.9 85 20 129/85 (100) 99 06/02/18 00:00 3.0 06/01/18 21:00 3.0 06/01/18 20:00 Nasal Cannula 4.0 06/01/18 20:00 97.5 89 20 144/75 (98) 99 06/01/18 19:35 84 06/01/18 19:16 96 Nasal Cannula 4.0 36 06/01/18 19:16 Nasal Cannula 4.0 36 06/01/18 18:00 Nasal Cannula 3.0 06/01/18 17:05 82 146/100 06/01/18 17:04 146/100 06/01/18 16:00 97.5 82 20 146/100 (115) 99 06/01/18 16:00 3.0 30 06/01/18 16:00 82 06/01/18 16:00 Nasal Cannula 3.0 06/01/18 12:00 85 06/01/18 12:00 3.0 30 06/01/18 12:00 Nasal Cannula 3.0 06/01/18 11:50 98.0 87 20 154/79 (104) 100 Intake and Output 06/01/18 06/02/18 19:00 07:00 Intake Total 420 ml 335.0 ml Output Total 250 ml 400 ml Balance 170 ml -65.0 ml Intake Oral 420 ml 60 ml IV Total 275.0 ml Output Urine Total 250 ml 400 ml # Bowel Movements 4 3 Laboratory Tests 06/01/18 10:25: Arterial Blood pH 7.334L, Arterial Blood Partial Pressure CO2 51.6H, Arterial Blood Partial Pressure O2 49.2*L, Arterial Blood HCO3 26.8H, Arterial Blood Oxygen Saturation 84.0*L, Arterial Blood Base Excess 0.2, Aditya Test Positive 06/02/18 01:05: White Blood Count 7.7, Red Blood Count 5.34, Hemoglobin 13.3, Hematocrit 45.7, Mean Corpuscular Volume 86, Mean Corpuscular Hemoglobin 24.9L, Mean Corpuscular Hemoglobin Concent 29.1L, Red Cell Distribution Width 22.3H, Platelet Count 276 , Mean Platelet Volume 9.5, Neutrophils (%) (Auto) 80.5H, Lymphocytes (%) (Auto ) 10.7L, Monocytes (%) (Auto) 5.8, Eosinophils (%) (Auto) 1.8, Basophils (%) ( Auto) 1.3, Sodium Level 145, Potassium Level 4.3, Chloride Level 109H, Carbon Dioxide Level 27, Anion Gap 9, Blood Urea Nitrogen 12, Creatinine 0.8, Estimat Glomerular Filtration Rate > 60, Glucose Level 94, Calcium Level 9.0, Vancomycin Level Trough 16.1H Height (Feet): 5 Height (Inches): 3.00 Weight (Pounds): 315 Margaret Mckinney MD Jun 02, 2018 09:51
[2018-06-02] MEDS: Nitroglycerin Patch 0.4mg TDERMAL SCH (09:59)
[2018-06-02] MEDS: Ascorbic Acid 500mg tab NG SCH ×2 (10:00→17:52)
[2018-06-02] MEDS: Lisinopril 2.5mg tab ORAL SCH ×2 (10:01→17:52)
[2018-06-02] MEDS: Betadine 4oz Bottle TOPIC SCH ×2 (10:02→17:53)
--- NOTE | 2018-06-02 11:28 | Nephrology Progress Note ---
Assessment/Plan Problem List: (1) ARF (acute renal failure) (2) Cellulitis of both lower extremities (3) Venous stasis ulcers of both lower extremities (4) DM (diabetes mellitus) (5) CKD (chronic kidney disease) (6) Morbid (severe) obesity due to excess calories (7) Acute hypoxemic respiratory failure Assessment extubated on bipap as needed- Diabetic Nephropathy Cr lower acute renal failure super imposed on CKD Encephalopathy, CO2 retainer, respiratory failure acute Obesity High Trop High Bili UTI Bilateral LE cellulitis Anemia Plan mag and K supplement as needed pulmonary support, post extubation Zestril and Norvasc for high bp at step down unit 24 h urine crcl 29 cc 24 h protein 0.6 gr pressors as needed Avoid nephrotoxics monitor renal parameters 2D echo Ej Fx 55% kidney WESLEY no pathology reported Per ID , Pulm... meds IV or OG tube Avoid mind altering meds per orders Subjective ROS Limited/Unobtainable: No Constitutional: Reports: malaise, weakness Subjective ALOC periodically Objective Objective Last 24 Hour Vital Signs Date Time Temp Pulse Resp B/P (MAP) Pulse Ox O2 Delivery O2 Flow Rate FiO2 06/02/18 10:01 150/89 06/02/18 10:00 72 150/89 06/02/18 09:59 150/89 06/02/18 08:00 97.7 82 20 150/89 (109) 100 06/02/18 08:00 72 06/02/18 08:00 3.0 06/02/18 08:00 Nasal Cannula 4.0 06/02/18 04:42 75 06/02/18 04:00 Nasal Cannula 4.0 06/02/18 04:00 3.0 06/02/18 04:00 97.9 80 20 121/70 (87) 100 06/02/18 00:00 90 06/02/18 00:00 Nasal Cannula 4.0 06/02/18 00:00 97.9 85 20 129/85 (100) 99 06/02/18 00:00 3.0 06/01/18 21:00 3.0 06/01/18 20:00 Nasal Cannula 4.0 06/01/18 20:00 97.5 89 20 144/75 (98) 99 06/01/18 19:35 84 06/01/18 19:16 96 Nasal Cannula 4.0 36 06/01/18 19:16 Nasal Cannula 4.0 36 06/01/18 18:00 Nasal Cannula 3.0 06/01/18 17:05 82 146/100 06/01/18 17:04 146/100 06/01/18 16:00 97.5 82 20 146/100 (115) 99 06/01/18 16:00 3.0 30 06/01/18 16:00 82 06/01/18 16:00 Nasal Cannula 3.0 06/01/18 12:00 85 06/01/18 12:00 3.0 30 06/01/18 12:00 Nasal Cannula 3.0 06/01/18 11:50 98.0 87 20 154/79 (104) 100 Intake and Output 06/01/18 06/02/18 19:00 07:00 Intake Total 420 ml 335.0 ml Output Total 250 ml 400 ml Balance 170 ml -65.0 ml Intake Oral 420 ml 60 ml IV Total 275.0 ml Output Urine Total 250 ml 400 ml # Bowel Movements 4 3 Laboratory Tests 06/02/18 01:05: White Blood Count 7.7, Red Blood Count 5.34, Hemoglobin 13.3, Hematocrit 45.7, Mean Corpuscular Volume 86, Mean Corpuscular Hemoglobin 24.9L, Mean Corpuscular Hemoglobin Concent 29.1L, Red Cell Distribution Width 22.3H, Platelet Count 276 , Mean Platelet Volume 9.5, Neutrophils (%) (Auto) 80.5H, Lymphocytes (%) (Auto ) 10.7L, Monocytes (%) (Auto) 5.8, Eosinophils (%) (Auto) 1.8, Basophils (%) ( Auto) 1.3, Sodium Level 145, Potassium Level 4.3, Chloride Level 109H, Carbon Dioxide Level 27, Anion Gap 9, Blood Urea Nitrogen 12, Creatinine 0.8, Estimat Glomerular Filtration Rate > 60, Glucose Level 94, Calcium Level 9.0, Vancomycin Level Trough 16.1H Height (Feet): 5 Height (Inches): 3.00 Weight (Pounds): 315 General Appearance: no apparent distress, lethargic, confused Cardiovascular: normal rate Respiratory/Chest: decreased breath sounds Abdomen: soft Objective no change Tr Strange MD Jun 02, 2018 11:28
[2018-06-02 12:00] VITALS: BP 135/78
--- NOTE | 2018-06-02 12:49 | General Progress Note ---
Assessment/Plan Problem List: (1) Metabolic encephalopathy ICD Codes: G93.41 - Metabolic encephalopathy SNOMED: 65352775 Assessment/Plan Haldol prn is not sedating but would decrease agitation cont restraints. Subjective Allergies: Coded Allergies: ASPIRIN (Verified Allergy, Intermediate, Hives, 01/06/13) PENICILLINS (Verified Allergy, Intermediate, Hives, 01/06/13) Subjective the pt was agitated last night and removed IV the pt is more alert however still has waxing and waning of consciousness. the pt has cognitive impairment Objective Last 24 Hour Vital Signs Date Time Temp Pulse Resp B/P (MAP) Pulse Ox O2 Delivery O2 Flow Rate FiO2 06/02/18 12:00 Nasal Cannula 3.0 06/02/18 12:00 97.7 85 18 135/78 (97) 98 06/02/18 12:00 3.0 06/02/18 10:01 150/89 06/02/18 10:00 72 150/89 06/02/18 09:59 150/89 06/02/18 08:00 97.7 82 20 150/89 (109) 100 06/02/18 08:00 72 06/02/18 08:00 3.0 06/02/18 08:00 Nasal Cannula 4.0 06/02/18 04:42 75 06/02/18 04:00 Nasal Cannula 4.0 06/02/18 04:00 3.0 06/02/18 04:00 97.9 80 20 121/70 (87) 100 06/02/18 00:00 90 06/02/18 00:00 Nasal Cannula 4.0 06/02/18 00:00 97.9 85 20 129/85 (100) 99 06/02/18 00:00 3.0 06/01/18 21:00 3.0 06/01/18 20:00 Nasal Cannula 4.0 06/01/18 20:00 97.5 89 20 144/75 (98) 99 06/01/18 19:35 84 06/01/18 19:16 96 Nasal Cannula 4.0 36 06/01/18 19:16 Nasal Cannula 4.0 36 06/01/18 18:00 Nasal Cannula 3.0 06/01/18 17:05 82 146/100 06/01/18 17:04 146/100 06/01/18 16:00 97.5 82 20 146/100 (115) 99 06/01/18 16:00 3.0 30 06/01/18 16:00 82 06/01/18 16:00 Nasal Cannula 3.0 Intake and Output 06/01/18 06/02/18 19:00 07:00 Intake Total 420 ml 335.0 ml Output Total 250 ml 400 ml Balance 170 ml -65.0 ml Intake Oral 420 ml 60 ml IV Total 275.0 ml Output Urine Total 250 ml 400 ml # Bowel Movements 4 3 Laboratory Tests 06/02/18 01:05: White Blood Count 7.7, Red Blood Count 5.34, Hemoglobin 13.3, Hematocrit 45.7, Mean Corpuscular Volume 86, Mean Corpuscular Hemoglobin 24.9L, Mean Corpuscular Hemoglobin Concent 29.1L, Red Cell Distribution Width 22.3H, Platelet Count 276 , Mean Platelet Volume 9.5, Neutrophils (%) (Auto) 80.5H, Lymphocytes (%) (Auto ) 10.7L, Monocytes (%) (Auto) 5.8, Eosinophils (%) (Auto) 1.8, Basophils (%) ( Auto) 1.3, Sodium Level 145, Potassium Level 4.3, Chloride Level 109H, Carbon Dioxide Level 27, Anion Gap 9, Blood Urea Nitrogen 12, Creatinine 0.8, Estimat Glomerular Filtration Rate > 60, Glucose Level 94, Calcium Level 9.0, Vancomycin Level Trough 16.1H Height (Feet): 5 Height (Inches): 3.00 Weight (Pounds): 315 General Appearance: confused, moderate distress, agitated Hannah Bradley MD Jun 02, 2018 12:49
--- NOTE | 2018-06-02 13:42 | GI Progress Note ---
Assessment/Plan Problems: (1) DM (diabetes mellitus) ICD Codes: E11.9 - DM (diabetes mellitus) SNOMED: 56985327 (2) Intractable abdominal pain ICD Codes: R10.9 - Unspecified abdominal pain SNOMED: 21005938 (3) Elevated transaminase level ICD Codes: R74.0 - Nonspecific elevation of levels of transaminase and lactic acid dehydrogenase [LDH] SNOMED: 775662461 (4) Abdominal distension ICD Codes: R14.0 - Abdominal distension (gaseous) SNOMED: 33409808 (5) Liver disease ICD Codes: K76.9 - Liver disease, unspecified SNOMED: 740152546 (6) Acute encephalopathy ICD Codes: G93.40 - Encephalopathy, unspecified SNOMED: 91919275, 919858235 Status: unchanged Status Narrative Discussed with Dr. Paul. Assessment/Plan OB stool negative x2 stable H&H generalized anasarca hepatitis panel negative abdominal US reviewed >> - Ascites - Borderline hepatomegaly - Thick-walled gallbladder, likely in part artifact of nondistention, and in part due to hemodynamic factors causing the ascites. No definite gallstones. Acute cholecystitis not completely excludable, due to the wall thickening, and hepatobiliary scan should be considered if there is high clinical suspicion for such. - Negative for dilated ducts - To and fro flow within the main portal vein, could indicate portal hypertension Plan for Paracentesis Thursday. Dc plavix for 72 hours. Restart after procedure. on cardiac diet cont lactulose prn transfusions bowel regime ppi fu labs will decrease laxatives The patient was seen and examined at bedside and all new and available data was reviewed in the patients chart. I agree with the above findings, impression and plan. (Patient seen earlier today. Signature stamp does not reflect patient encounter time.). - Robert Paul MD Subjective Subjective denies abdominal pain tolerating diet Objective Last 24 Hour Vital Signs Date Time Temp Pulse Resp B/P (MAP) Pulse Ox O2 Delivery O2 Flow Rate FiO2 06/02/18 12:00 Nasal Cannula 3.0 06/02/18 12:00 97.7 85 18 135/78 (97) 98 06/02/18 12:00 3.0 06/02/18 10:01 150/89 06/02/18 10:00 72 150/89 06/02/18 09:59 150/89 06/02/18 08:00 97.7 82 20 150/89 (109) 100 06/02/18 08:00 72 06/02/18 08:00 3.0 06/02/18 08:00 Nasal Cannula 3.0 06/02/18 04:42 75 06/02/18 04:00 Nasal Cannula 4.0 06/02/18 04:00 3.0 06/02/18 04:00 97.9 80 20 121/70 (87) 100 06/02/18 00:00 90 06/02/18 00:00 Nasal Cannula 4.0 06/02/18 00:00 97.9 85 20 129/85 (100) 99 06/02/18 00:00 3.0 06/01/18 21:00 3.0 06/01/18 20:00 Nasal Cannula 4.0 06/01/18 20:00 97.5 89 20 144/75 (98) 99 06/01/18 19:35 84 06/01/18 19:16 96 Nasal Cannula 4.0 36 06/01/18 19:16 Nasal Cannula 4.0 36 06/01/18 18:00 Nasal Cannula 3.0 06/01/18 17:05 82 146/100 06/01/18 17:04 146/100 06/01/18 16:00 97.5 82 20 146/100 (115) 99 06/01/18 16:00 3.0 30 06/01/18 16:00 82 06/01/18 16:00 Nasal Cannula 3.0 Intake and Output 06/01/18 06/02/18 19:00 07:00 Intake Total 420 ml 335.0 ml Output Total 250 ml 400 ml Balance 170 ml -65.0 ml Intake Oral 420 ml 60 ml IV Total 275.0 ml Output Urine Total 250 ml 400 ml # Bowel Movements 4 3 Laboratory Tests Test 06/02/18 01:05 White Blood Count 7.7 K/UL (4.8-10.8) Red Blood Count 5.34 M/UL (4.20-5.40) Hemoglobin 13.3 G/DL (12.0-16.0) Hematocrit 45.7 % (37.0-47.0) Mean Corpuscular Volume 86 FL (80-99) Mean Corpuscular Hemoglobin 24.9 PG (27.0-31.0) L Mean Corpuscular Hemoglobin Concent 29.1 G/DL (32.0-36.0) L Red Cell Distribution Width 22.3 % (11.6-14.8) H Platelet Count 276 K/UL (150-450) Mean Platelet Volume 9.5 FL (6.5-10.1) Neutrophils (%) (Auto) 80.5 % (45.0-75.0) H Lymphocytes (%) (Auto) 10.7 % (20.0-45.0) L Monocytes (%) (Auto) 5.8 % (1.0-10.0) Eosinophils (%) (Auto) 1.8 % (0.0-3.0) Basophils (%) (Auto) 1.3 % (0.0-2.0) Sodium Level 145 MMOL/L (136-145) Potassium Level 4.3 MMOL/L (3.5-5.1) Chloride Level 109 MMOL/L (98-107) H Carbon Dioxide Level 27 MMOL/L (21-32) Anion Gap 9 mmol/L (5-15) Blood Urea Nitrogen 12 mg/dL (7-18) Creatinine 0.8 MG/DL (0.55-1.30) Estimat Glomerular Filtration Rate > 60 mL/min (>60) Glucose Level 94 MG/DL (74-106) Calcium Level 9.0 MG/DL (8.5-10.1) Vancomycin Level Trough 16.1 ug/mL (5.0-12.0) H Height (Feet): 5 Height (Inches): 3.00 Weight (Pounds): 315 General Appearance: WD/WN, no apparent distress, alert Cardiovascular: normal rate Respiratory/Chest: normal breath sounds, no respiratory distress Abdominal Exam: normal bowel sounds, non tender, soft Extremities: non-tender Otilio Cohen NP Jun 02, 2018 13:42
--- NOTE | 2018-06-02 14:30 | Infectious Diseases Prog Note ---
Assessment/Plan Problems: (1) VAP (ventilator-associated pneumonia) Assessment & Plan: with coag negative staphylococcus and proteus mirabilis , was on aztreonam for two weeks , now on vancomycin for two weeks . recommend aspiration precaution . EOT 06/09/18 (2) Bacteremia due to Enterococcus Assessment & Plan: due to enterococcus faecalis suspect picc line related blood stream infection , PICC line was removed . continue vancomycin renally dosed as per pharmacy for two weeks TOTAL . EOT 06/09/18 (3) Bilateral lower leg cellulitis Assessment & Plan: wound culture grew klibsella oxytoca, and Sphingomonas paucimobilis , continue vancomycin and aztreonam empirically with local wounds care . await on bone scan of both legs once clinically stable . (4) Nonhealing ulcer of left lower extremity Assessment & Plan: wound culture grew klebsiella oxytoca and Sphingomonas paucimobilis, now on aztreonam and vancomycin , continue local wound care and dressings change as per wound care service as per plastic surgery recommendations (5) CKD (chronic kidney disease) Assessment & Plan: avoid nephrotoxics , renally dosed antibiotics as per pharmacy (6) DM (diabetes mellitus) Assessment & Plan: recommend tight glycemic control to keep blood glucose between 100-140 (7) Acute encephalopathy Assessment & Plan: suspect metabolic with high ammonia level, continue lactulose , consult neurology if no improvement (8) Acute hypoxemic respiratory failure Assessment & Plan: due to the above , self extubated , now on NASAL CANULA , and BIPAP prn . pulmonary is following, Subjective Constitutional: Reports: no symptoms HEENT: Reports: no symptoms Respiratory: Reports: no symptoms Breasts: Reports: no symptoms Cardiovascular: Reports: no symptoms Gastrointestinal/Abdominal: Reports: no symptoms Genitourinary: Reports: no symptoms Neurologic: Reports: no symptoms Psychiatric: Reports: no symptoms Skin: Reports: no symptoms Endocrine: Reports: no symptoms Hematologic: Reports: no symptoms Musculoskeletal: Reports: no symptoms Allergies: Coded Allergies: ASPIRIN (Verified Allergy, Intermediate, Hives, 01/06/13) PENICILLINS (Verified Allergy, Intermediate, Hives, 01/06/13) Subjective she was comfortable, off BIPAP, and nasal canula , lying in bed, afebrile, denied any fever or chills. Objective Vital Signs Last 24 Hour Vital Signs Date Time Temp Pulse Resp B/P (MAP) Pulse Ox O2 Delivery O2 Flow Rate FiO2 06/02/18 12:00 Nasal Cannula 3.0 06/02/18 12:00 97.7 85 18 135/78 (97) 98 06/02/18 12:00 3.0 06/02/18 12:00 84 06/02/18 10:01 150/89 06/02/18 10:00 72 150/89 06/02/18 09:59 150/89 06/02/18 08:00 97.7 82 20 150/89 (109) 100 06/02/18 08:00 72 06/02/18 08:00 3.0 06/02/18 08:00 Nasal Cannula 3.0 06/02/18 04:42 75 06/02/18 04:00 Nasal Cannula 4.0 06/02/18 04:00 3.0 06/02/18 04:00 97.9 80 20 121/70 (87) 100 06/02/18 00:00 90 06/02/18 00:00 Nasal Cannula 4.0 06/02/18 00:00 97.9 85 20 129/85 (100) 99 06/02/18 00:00 3.0 06/01/18 21:00 3.0 06/01/18 20:00 Nasal Cannula 4.0 06/01/18 20:00 97.5 89 20 144/75 (98) 99 06/01/18 19:35 84 06/01/18 19:16 96 Nasal Cannula 4.0 36 06/01/18 19:16 Nasal Cannula 4.0 36 06/01/18 18:00 Nasal Cannula 3.0 06/01/18 17:05 82 146/100 06/01/18 17:04 146/100 06/01/18 16:00 97.5 82 20 146/100 (115) 99 06/01/18 16:00 3.0 30 06/01/18 16:00 82 06/01/18 16:00 Nasal Cannula 3.0 Height (Feet): 5 Height (Inches): 3.00 Weight (Pounds): 315 General Appearance: WD/WN, no acute distress HEENT: normocephalic, atraumatic, anicteric, mucous membranes moist, PERRL Respiratory/Chest: chest wall non-tender, no respiratory distress, no accessory muscle use, decreased breath sounds, crackles/rales Cardiovascular: normal peripheral pulses, normal rate, regular rhythm, no gallop/murmur, no JVD Abdomen: normal bowel sounds, soft, non tender, no organomegaly, non distended , no mass, no scars Extremities: no cyanosis, no clubbing Skin: no rash, no lesions, no ulcers Neurologic/Psychiatric: alert, responsive Lymphatic: no neck adenopathy, no groin adenopathy Musculoskeletal: normal muscle bulk, no effusion Microbiology Date/Time Source Procedure Growth Status 05/30/18 22:00 Stool Clostridium difficile Toxin Assay - Final Complete Laboratory Tests Test 06/02/18 01:05 White Blood Count 7.7 K/UL (4.8-10.8) Red Blood Count 5.34 M/UL (4.20-5.40) Hemoglobin 13.3 G/DL (12.0-16.0) Hematocrit 45.7 % (37.0-47.0) Mean Corpuscular Volume 86 FL (80-99) Mean Corpuscular Hemoglobin 24.9 PG (27.0-31.0) L Mean Corpuscular Hemoglobin Concent 29.1 G/DL (32.0-36.0) L Red Cell Distribution Width 22.3 % (11.6-14.8) H Platelet Count 276 K/UL (150-450) Mean Platelet Volume 9.5 FL (6.5-10.1) Neutrophils (%) (Auto) 80.5 % (45.0-75.0) H Lymphocytes (%) (Auto) 10.7 % (20.0-45.0) L Monocytes (%) (Auto) 5.8 % (1.0-10.0) Eosinophils (%) (Auto) 1.8 % (0.0-3.0) Basophils (%) (Auto) 1.3 % (0.0-2.0) Sodium Level 145 MMOL/L (136-145) Potassium Level 4.3 MMOL/L (3.5-5.1) Chloride Level 109 MMOL/L (98-107) H Carbon Dioxide Level 27 MMOL/L (21-32) Anion Gap 9 mmol/L (5-15) Blood Urea Nitrogen 12 mg/dL (7-18) Creatinine 0.8 MG/DL (0.55-1.30) Estimat Glomerular Filtration Rate > 60 mL/min (>60) Glucose Level 94 MG/DL (74-106) Calcium Level 9.0 MG/DL (8.5-10.1) Vancomycin Level Trough 16.1 ug/mL (5.0-12.0) H Current Medications Medications (Trade) Dose Ordered Sig/Toya Route PRN Reason Start Time Stop Time Status Last Admin Dose Admin Allopurinol (Allopurinol) 300 mg DAILY NG 05/31/18 09:00 06/18/18 12:59 06/02/18 10:00 Amlodipine Besylate (Norvasc) 2.5 mg BID ORAL 06/01/18 18:00 06/26/18 10:05 06/02/18 10:00 Ascorbic Acid (Vitamin C) 500 mg TWICE A DAY NG 05/31/18 09:00 06/15/18 17:59 06/02/18 10:00 Atorvastatin Calcium (Lipitor) 20 mg BEDTIME ORAL 05/31/18 21:00 06/13/18 20:59 06/01/18 21:50 Dextrose (Dextrose 50%) 25 ml Q30M PRN IV Hypoglycemia 05/31/18 06:30 06/11/18 16:59 Dextrose (Dextrose 50%) 50 ml Q30M PRN IV Hypoglycemia 05/31/18 06:30 06/11/18 16:59 Furosemide (Lasix) 20 mg Q12HR IV 05/31/18 09:00 06/23/18 16:03 06/02/18 10:02 Haloperidol (Haldol) 5 mg Q6H PRN ORAL Agitation 06/02/18 12:45 07/02/18 12:44 Insulin Aspart (NovoLOG) AC+HS SUBQ 05/31/18 06:30 06/11/18 12:59 Lisinopril (Zestril) 5 mg BID ORAL 05/31/18 18:00 06/30/18 17:59 06/02/18 10:01 Multivitamins (Multivitamins) 1 tab DAILY ORAL 05/31/18 09:00 06/16/18 08:59 06/02/18 10:00 Nitroglycerin (Ntg) 1 patch Q24H TDERMAL 05/31/18 09:00 06/14/18 08:59 06/02/18 09:59 Pantoprazole (Protonix) 40 mg EVERY 12 HOURS ORAL 06/01/18 21:00 07/01/18 20:59 06/02/18 10:00 Potassium Chloride (K-Dur) 40 meq TWICE A DAY ORAL 06/01/18 11:38 07/01/18 11:37 06/02/18 10:01 Povidone Iodine (Betadine Gretchen) 1 applic BID TOPIC 05/31/18 09:00 06/15/18 08:59 06/02/18 10:02 Vancomycin HCl (Vanco rx to dose) 1 ea DAILY PRN MISC Per rx protocol 05/31/18 09:00 06/22/18 17:29 Vancomycin HCl/ Dextrose 275 ml @ 137.5 mls/ hr Q24H IVPB 06/01/18 02:00 06/04/18 01:59 06/02/18 02:12 Juice Wilkerosn M.D. Jun 02, 2018 14:30
--- NOTE | 2018-06-02 14:41 | NUR ---
P.T NOTE: P.T evaluation completed and treatment initiated. Please refer to P.T evaluation for current functional status. Pt is alert Oriented to self /person and place but not to time and current situation. Pt is restless and confused however able to follow simple commands with constant redirections. Pt is generally weak and decondition. MAX x 2PA to turn/roll and complete supine to/from sitting . Pt able to sit at the EOB unsupported but too weak to stand therefore OOB transfer activities not safe and feasible at this time. Pt would benefit from skilled P.T service to improve strength, balance, endurance to increase level of mobility independence and safety. Recommend SNF for further rehab VS home home with P.T.
--- NOTE | 2018-06-02 15:12 | Pulmonology Progress Note ---
Assessment/Plan Assessment/Plan 67 y/o female w/ DM, CKD, morbid obesity admitted with b/l LE cellulitis and altered mental status. Problem List: 1. Altered mental status 2. Acute on chronic hypercapnic respiratory failure -intubated 05/15 -self-extubated 05/24 3. Bilateral lower extremity cellulitis 4. RACHELLE on CKD 5. DM 6. Morbid obesity 7. Elevated ammonia level 8. RV failure 9. Acute diastolic Congestive heart failure 10. Combined respiratory and metabolic acidosis, persistent Plan: -monitor respiratory status -noninvasive ventilation 18/6 qhs and prn with breaks for meals; has been refusing -monitor volumes and renal function -lasix 20 mg IV to q12 and monitor I/O -Abx per ID -wean oxygen as tolerated -noted plans for home with hospice Case d/w RN Subjective ROS Limited/Unobtainable: Yes Interval Events: refusing BiPAP. Pulling off oxygen. Alert but forgetful. Allergies: Coded Allergies: ASPIRIN (Verified Allergy, Intermediate, Hives, 01/06/13) PENICILLINS (Verified Allergy, Intermediate, Hives, 01/06/13) Objective Last 24 Hour Vital Signs Date Time Temp Pulse Resp B/P (MAP) Pulse Ox O2 Delivery O2 Flow Rate FiO2 06/02/18 12:00 Nasal Cannula 3.0 06/02/18 12:00 97.7 85 18 135/78 (97) 98 06/02/18 12:00 3.0 06/02/18 12:00 84 06/02/18 10:01 150/89 06/02/18 10:00 72 150/89 06/02/18 09:59 150/89 06/02/18 08:00 97.7 82 20 150/89 (109) 100 06/02/18 08:00 72 06/02/18 08:00 3.0 06/02/18 08:00 Nasal Cannula 3.0 06/02/18 04:42 75 06/02/18 04:00 Nasal Cannula 4.0 06/02/18 04:00 3.0 06/02/18 04:00 97.9 80 20 121/70 (87) 100 06/02/18 00:00 90 06/02/18 00:00 Nasal Cannula 4.0 06/02/18 00:00 97.9 85 20 129/85 (100) 99 06/02/18 00:00 3.0 06/01/18 21:00 3.0 06/01/18 20:00 Nasal Cannula 4.0 06/01/18 20:00 97.5 89 20 144/75 (98) 99 06/01/18 19:35 84 06/01/18 19:16 96 Nasal Cannula 4.0 36 06/01/18 19:16 Nasal Cannula 4.0 36 06/01/18 18:00 Nasal Cannula 3.0 06/01/18 17:05 82 146/100 06/01/18 17:04 146/100 06/01/18 16:00 97.5 82 20 146/100 (115) 99 06/01/18 16:00 3.0 30 06/01/18 16:00 82 06/01/18 16:00 Nasal Cannula 3.0 Intake and Output 06/01/18 06/02/18 19:00 07:00 Intake Total 420 ml 335.0 ml Output Total 250 ml 400 ml Balance 170 ml -65.0 ml Intake Oral 420 ml 60 ml IV Total 275.0 ml Output Urine Total 250 ml 400 ml # Bowel Movements 4 3 General Appearance: no acute distress Respiratory/Chest: crackles/rales Cardiovascular: normal rate Abdomen: soft, non tender Extremities: other - improving edema Microbiology Date/Time Source Procedure Growth Status 05/30/18 22:00 Stool Clostridium difficile Toxin Assay - Final Complete Laboratory Tests 06/02/18 01:05: White Blood Count 7.7, Red Blood Count 5.34, Hemoglobin 13.3, Hematocrit 45.7, Mean Corpuscular Volume 86, Mean Corpuscular Hemoglobin 24.9L, Mean Corpuscular Hemoglobin Concent 29.1L, Red Cell Distribution Width 22.3H, Platelet Count 276 , Mean Platelet Volume 9.5, Neutrophils (%) (Auto) 80.5H, Lymphocytes (%) (Auto ) 10.7L, Monocytes (%) (Auto) 5.8, Eosinophils (%) (Auto) 1.8, Basophils (%) ( Auto) 1.3, Sodium Level 145, Potassium Level 4.3, Chloride Level 109H, Carbon Dioxide Level 27, Anion Gap 9, Blood Urea Nitrogen 12, Creatinine 0.8, Estimat Glomerular Filtration Rate > 60, Glucose Level 94, Calcium Level 9.0, Vancomycin Level Trough 16.1H Current Medications Medications (Trade) Dose Ordered Sig/Toya Route PRN Reason Start Time Stop Time Status Last Admin Dose Admin Allopurinol (Allopurinol) 300 mg DAILY NG 05/31/18 09:00 06/18/18 12:59 06/02/18 10:00 Amlodipine Besylate (Norvasc) 2.5 mg BID ORAL 06/01/18 18:00 06/26/18 10:05 06/02/18 10:00 Ascorbic Acid (Vitamin C) 500 mg TWICE A DAY NG 05/31/18 09:00 06/15/18 17:59 06/02/18 10:00 Atorvastatin Calcium (Lipitor) 20 mg BEDTIME ORAL 05/31/18 21:00 06/13/18 20:59 06/01/18 21:50 Dextrose (Dextrose 50%) 25 ml Q30M PRN IV Hypoglycemia 05/31/18 06:30 06/11/18 16:59 Dextrose (Dextrose 50%) 50 ml Q30M PRN IV Hypoglycemia 05/31/18 06:30 06/11/18 16:59 Furosemide (Lasix) 20 mg Q12HR IV 05/31/18 09:00 06/23/18 16:03 06/02/18 10:02 Haloperidol (Haldol) 5 mg Q6H PRN ORAL Agitation 06/02/18 12:45 07/02/18 12:44 Insulin Aspart (NovoLOG) AC+HS SUBQ 05/31/18 06:30 06/11/18 12:59 Lisinopril (Zestril) 5 mg BID ORAL 05/31/18 18:00 06/30/18 17:59 06/02/18 10:01 Multivitamins (Multivitamins) 1 tab DAILY ORAL 05/31/18 09:00 06/16/18 08:59 06/02/18 10:00 Nitroglycerin (Ntg) 1 patch Q24H TDERMAL 05/31/18 09:00 06/14/18 08:59 06/02/18 09:59 Pantoprazole (Protonix) 40 mg EVERY 12 HOURS ORAL 06/01/18 21:00 07/01/18 20:59 06/02/18 10:00 Potassium Chloride (K-Dur) 40 meq TWICE A DAY ORAL 06/01/18 11:38 07/01/18 11:37 06/02/18 10:01 Povidone Iodine (Betadine Gretchen) 1 applic BID TOPIC 05/31/18 09:00 06/15/18 08:59 06/02/18 10:02 Vancomycin HCl (Vanco rx to dose) 1 ea DAILY PRN MISC Per rx protocol 05/31/18 09:00 06/22/18 17:29 Vancomycin HCl/ Dextrose 275 ml @ 137.5 mls/ hr Q24H IVPB 06/01/18 02:00 06/04/18 01:59 06/02/18 02:12 Hemal Ritchie MD Jun 02, 2018 15:12
[2018-06-02 16:00] VITALS: BP 142/98
--- NOTE | 2018-06-02 16:08 | NUR ---
Social Service Note Order for patient to return home tomorrow with [facility]. [employer] spoke with Joyce [phone] ([phone] (f) and confirmed they are meeting tonight with patient's son Reece. DME will be delivered tonight. Hospice arranged ambulance for 11am pick 06/03/18. [employer] faxed additional information to hospice as requested. Will continue to be available as needed.
--- NOTE | 2018-06-02 17:18 | NUR ---
NURSE NOTES: PATIENT KEPT CLEAN AND DRY. NO SIGNS OF DISTRESS. TOLERATING 02 AT 3L VIA NC. WILL CONTINUE TO MONITOR.
--- NOTE | 2018-06-02 19:35 | NUR ---
NURSE NOTES: Received report from LUCIO Collins. Patient seen in bed in mcdowell position. Alert, verbally responsive, able to make needs known. Denies any pain at this time. Currently on oxygen via NC @ 3L/min with no acute respiratory distress noted at this time. Patient is on neff cath, urine is flowing. IV site is to left AC 22G and is intact. Bed is in lowest position. Call light is within easy reach. Will continue to monitor.
--- NOTE | 2018-06-02 19:35 | NUR ---
HAND-OFF: Report given to Tyrone Dawn RN.
[2018-06-02 20:00] VITALS: BP 132/92
[2018-06-02] MEDS: Atorvastatin 20mg tab ORAL SCH (21:23)
--- NOTE | 2018-06-02 22:46 | Vascular Surgery Progress Note ---
Subjective Subjective Remains in stepdown Remains extubated Awake and more responsive Asking re her wounds and gangrene PMD note reviewed re family request for hospice Objective Objective Last 24 Hour Vital Signs Date Time Temp Pulse Resp B/P (MAP) Pulse Ox O2 Delivery O2 Flow Rate FiO2 06/02/18 19:29 96 Nasal Cannula 4.0 36 06/02/18 19:29 Nasal Cannula 4.0 36 06/02/18 17:53 88 142/98 06/02/18 17:52 142/98 06/02/18 16:00 88 06/02/18 16:00 Nasal Cannula 3.0 06/02/18 16:00 97.3 83 20 142/98 (113) 99 06/02/18 16:00 3.0 06/02/18 12:00 Nasal Cannula 3.0 06/02/18 12:00 97.7 85 18 135/78 (97) 98 06/02/18 12:00 3.0 06/02/18 12:00 84 06/02/18 10:01 150/89 06/02/18 10:00 72 150/89 06/02/18 09:59 150/89 06/02/18 08:10 Nasal Cannula 4.0 36 06/02/18 08:09 95 Nasal Cannula 4.0 36 06/02/18 08:00 97.7 82 20 150/89 (109) 100 06/02/18 08:00 72 06/02/18 08:00 3.0 06/02/18 08:00 Nasal Cannula 3.0 06/02/18 04:42 75 06/02/18 04:00 Nasal Cannula 4.0 06/02/18 04:00 3.0 06/02/18 04:00 97.9 80 20 121/70 (87) 100 06/02/18 00:00 90 06/02/18 00:00 Nasal Cannula 4.0 06/02/18 00:00 97.9 85 20 129/85 (100) 99 06/02/18 00:00 3.0 Intake and Output 06/01/18 06/02/18 18:59 06:59 Intake Total 420 ml 335.0 ml Output Total 250 ml 400 ml Balance 170 ml -65.0 ml Intake Oral 420 ml 60 ml IV Total 275.0 ml Output Urine Total 250 ml 400 ml # Bowel Movements 4 3 Laboratory Tests Test 06/02/18 01:05 White Blood Count 7.7 K/UL (4.8-10.8) Red Blood Count 5.34 M/UL (4.20-5.40) Hemoglobin 13.3 G/DL (12.0-16.0) Hematocrit 45.7 % (37.0-47.0) Mean Corpuscular Volume 86 FL (80-99) Mean Corpuscular Hemoglobin 24.9 PG (27.0-31.0) L Mean Corpuscular Hemoglobin Concent 29.1 G/DL (32.0-36.0) L Red Cell Distribution Width 22.3 % (11.6-14.8) H Platelet Count 276 K/UL (150-450) Mean Platelet Volume 9.5 FL (6.5-10.1) Neutrophils (%) (Auto) 80.5 % (45.0-75.0) H Lymphocytes (%) (Auto) 10.7 % (20.0-45.0) L Monocytes (%) (Auto) 5.8 % (1.0-10.0) Eosinophils (%) (Auto) 1.8 % (0.0-3.0) Basophils (%) (Auto) 1.3 % (0.0-2.0) Sodium Level 145 MMOL/L (136-145) Potassium Level 4.3 MMOL/L (3.5-5.1) Chloride Level 109 MMOL/L (98-107) H Carbon Dioxide Level 27 MMOL/L (21-32) Anion Gap 9 mmol/L (5-15) Blood Urea Nitrogen 12 mg/dL (7-18) Creatinine 0.8 MG/DL (0.55-1.30) Estimat Glomerular Filtration Rate > 60 mL/min (>60) Glucose Level 94 MG/DL (74-106) Calcium Level 9.0 MG/DL (8.5-10.1) Vancomycin Level Trough 16.1 ug/mL (5.0-12.0) H Height (Feet): 5 Height (Inches): 3.00 Weight (Pounds): 315 Objective Awake alert and oriented cvs rrr lung rhonchi b/l abd soft obese with anasarca leg edema--less + femorals absent pop pedal pulses Leg stasis ulcers Ischemic right toe necrosis/gangrene+ Assessment/Plan Assessment More lucid with intermittent confusional state Ischemic legs R>L with toe 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 Hx of resp failure on vent--now remains extubated and transferred to stepdown Hx of shock on pressors--currently off Heart failure--systolic & diastolic Renal failure with anasarca pulm edema--much improved; 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
--- NOTE | 2018-06-02 23:48 | Cardiology Progress Note ---
Assessment/Plan Assessment/Plan 1. Acute hypoxic hypercarbic respiratory failure, resolved, 2D echocardiography shows normal LV systolic function with a normal left atrial pressure, however e/ o right heart failure. 2. Right heart failure, pre-load sensitive, avoid aggressive diuretic use, evidence of RA and RV dilatation and severe RV systolic dysfunction, associated pulmonary HTN, ? type. 3. Paroxysmal atrial fibrillation, currently sinus rhythm. 4. Hypertension, increase lisinopril to 5mg bid. Will consider Coreg if persistently high. 5. Slight elevation of troponin I level in this patient most likely due to RV strain/failure. 6. Acute respiratory failure, resolved. Subjective Subjective Sinus rhythm at rate of 82. On NC O2. Objective Last 24 Hour Vital Signs Date Time Temp Pulse Resp B/P (MAP) Pulse Ox O2 Delivery O2 Flow Rate FiO2 06/02/18 20:00 3.0 06/02/18 20:00 82 06/02/18 20:00 Nasal Cannula 3.0 06/02/18 20:00 97.5 88 24 132/92 (105) 98 06/02/18 19:29 96 Nasal Cannula 4.0 36 06/02/18 19:29 Nasal Cannula 4.0 36 06/02/18 17:53 88 142/98 06/02/18 17:52 142/98 06/02/18 16:00 88 06/02/18 16:00 Nasal Cannula 3.0 06/02/18 16:00 97.3 83 20 142/98 (113) 99 06/02/18 16:00 3.0 06/02/18 12:00 Nasal Cannula 3.0 06/02/18 12:00 97.7 85 18 135/78 (97) 98 06/02/18 12:00 3.0 06/02/18 12:00 84 06/02/18 10:01 150/89 06/02/18 10:00 72 150/89 06/02/18 09:59 150/89 06/02/18 08:10 Nasal Cannula 4.0 36 06/02/18 08:09 95 Nasal Cannula 4.0 36 06/02/18 08:00 97.7 82 20 150/89 (109) 100 06/02/18 08:00 72 06/02/18 08:00 3.0 06/02/18 08:00 Nasal Cannula 3.0 06/02/18 04:42 75 2/6/19 04:00 Nasal Cannula 4.0 06/02/18 04:00 3.0 06/02/18 04:00 97.9 80 20 121/70 (87) 100 06/02/18 00:00 90 06/02/18 00:00 Nasal Cannula 4.0 06/02/18 00:00 97.9 85 20 129/85 (100) 99 06/02/18 00:00 3.0 Intake and Output 06/01/18 06/02/18 18:59 06:59 Intake Total 420 ml 335.0 ml Output Total 250 ml 400 ml Balance 170 ml -65.0 ml Intake Oral 420 ml 60 ml IV Total 275.0 ml Output Urine Total 250 ml 400 ml # Bowel Movements 4 3 2D Echo: LVEF 55%, D-shaped septum due to RV pressure overload, Massive RA/RV size. Laboratory Tests Test 06/02/18 01:05 White Blood Count 7.7 K/UL (4.8-10.8) Red Blood Count 5.34 M/UL (4.20-5.40) Hemoglobin 13.3 G/DL (12.0-16.0) Hematocrit 45.7 % (37.0-47.0) Mean Corpuscular Volume 86 FL (80-99) Mean Corpuscular Hemoglobin 24.9 PG (27.0-31.0) L Mean Corpuscular Hemoglobin Concent 29.1 G/DL (32.0-36.0) L Red Cell Distribution Width 22.3 % (11.6-14.8) H Platelet Count 276 K/UL (150-450) Mean Platelet Volume 9.5 FL (6.5-10.1) Neutrophils (%) (Auto) 80.5 % (45.0-75.0) H Lymphocytes (%) (Auto) 10.7 % (20.0-45.0) L Monocytes (%) (Auto) 5.8 % (1.0-10.0) Eosinophils (%) (Auto) 1.8 % (0.0-3.0) Basophils (%) (Auto) 1.3 % (0.0-2.0) Sodium Level 145 MMOL/L (136-145) Potassium Level 4.3 MMOL/L (3.5-5.1) Chloride Level 109 MMOL/L (98-107) H Carbon Dioxide Level 27 MMOL/L (21-32) Anion Gap 9 mmol/L (5-15) Blood Urea Nitrogen 12 mg/dL (7-18) Creatinine 0.8 MG/DL (0.55-1.30) Estimat Glomerular Filtration Rate > 60 mL/min (>60) Glucose Level 94 MG/DL (74-106) Calcium Level 9.0 MG/DL (8.5-10.1) Vancomycin Level Trough 16.1 ug/mL (5.0-12.0) H Objective HEENT: Atraumatic and normocephalic. Anicteric. Pupils are equal, round, and reactive to light and accommodation. Extraocular muscles intact. NECK: JVP ~20 cm, No carotid bruit. Carotid upstroke is 2+ bilaterally. CVS: Normal S1 and S2. Regular rate and rhythm. RV heave, No murmurs, gallops , or rubs. LUNGS: Diminished breath sounds in both lungs with rhonchi bilaterally. ABDOMEN: Soft, nontender, and nondistended. No hepatosplenomegaly. Positive bowel sounds. EXTREMITIES: No evidence of edema, clubbing, or cyanosis. There is venous stasis of lower extremities with associated ulceration. Justice Erickson MD Jun 02, 2018 23:48
[2018-06-03] VITALS: BP 136/81
[2018-06-03] MEDS: VANCOMYCIN IVPB SCH (01:34)
[2018-06-03] MEDS: [UNRECOGNIZED DRUG - OTHER] IVPB SCH (01:34)
[2018-06-03 04:00] VITALS: BP 138/76
[2018-06-03 04:06] LABS: BASOPHILS % (AUTO) 1.9 % (0.0-2.0); EOSINOPHILS % (AUTO) 1.6 % (0.0-3.0); HEMATOCRIT 39.8 % (37.0-47.0); HEMOGLOBIN 11.7 G/DL (12.0-16.0); LYMPHOCYTES % (AUTO) 13.7 % (20.0-45.0); MEAN CORPUSCULAR VOLUME 87 FL (80-99); MONOCYTES % (AUTO) 5.5 % (1.0-10.0); NEUTROPHILS % (AUTO) 77.2 % (45.0-75.0); PLATELET COUNT 176 K/UL (150-450); RED BLOOD COUNT 4.55 M/UL (4.20-5.40); RED CELL DISTRIBUTION WIDTH 21.5 % (11.6-14.8); WHITE BLOOD COUNT 6.5 K/UL (4.8-10.8)
[2018-06-03 04:29] LABS: ALANINE AMINOTRANSFERASE 16 U/L (12-78); ALBUMIN 2.2 G/DL (3.4-5.0); ALBUMIN/GLOBULIN RATIO 0.5 (1.0-2.7); ALKALINE PHOSPHATASE 274 U/L (46-116); ANION GAP 3 mmol/L (5-15); ASPARTATE AMINO TRANSFERASE 43 U/L (15-37); BILIRUBIN,TOTAL 1.2 MG/DL (0.2-1.0); BLOOD UREA NITROGEN 9 mg/dL (7-18); CALCIUM 8.7 MG/DL (8.5-10.1); CARBON DIOXIDE 33 MMOL/L (21-32); CHLORIDE 109 MMOL/L (98-107); POTASSIUM 4.4 MMOL/L (3.5-5.1); SODIUM 145 MMOL/L (136-145)
[2018-06-03 04:47] LABS: BILIRUBIN,DIRECT 0.6 MG/DL (0.0-0.3)
[2018-06-03] MEDS: NovoLOG Insulin Flexpen SUBQ SCH (06:30)
--- NOTE | 2018-06-03 06:58 | NUR ---
HAND-OFF: Report given to LUCIO Collins .
--- NOTE | 2018-06-03 06:59 | NUR ---
NURSE NOTES: RECEIVED PATIENT FROM Tyrone OCONNELL RN. PATIENT IS LYING IN BED, AWAKE. HOOKED TO DIRECTOR OF PHYSICAL THERAPY. ON 3L NC. NO SIGNS OF DISTRESS OF THE MOMENT. [place] CONNECTED TO BAG, DRAINING URINE. NOTED SKIN ALTERATION. WITH IV ON L AC G22, SL. CALL LIGHT WITHIN REACH. BED AT LOWEST POSITION, SIDE RAILS UP. WILL CONTINUE TO MONITOR.
[2018-06-03 08:00] VITALS: BP 137/103
--- NOTE | 2018-06-03 08:00 | NUR ---
NURSE NOTES: SPOKE WITH THE DGT RE THE PLAN. CONFIRMED WITH MARIALUISA FROM HOSPICE REM DISCHARGE. NO SIGNS OF DISTRESS. WILL CONTINUE TO MONITOR.
[2018-06-03] MEDS: Ascorbic Acid 500mg tab NG SCH (08:39)
[2018-06-03] MEDS: Lisinopril 2.5mg tab ORAL SCH (08:39)
[2018-06-03] MEDS: Nitroglycerin Patch 0.4mg TDERMAL SCH (08:40)
[2018-06-03 08:41] VITALS: BP 139/106
[2018-06-03] MEDS: Betadine 4oz Bottle TOPIC SCH (08:44)
--- NOTE | 2018-06-03 10:00 | Pulmonology Progress Note ---
Assessment/Plan Assessment/Plan 67 y/o female w/ DM, CKD, morbid obesity admitted with b/l LE cellulitis and altered mental status. Problem List: 1. Altered mental status 2. Acute on chronic hypercapnic respiratory failure -intubated 05/15 -self-extubated 05/24 3. Bilateral lower extremity cellulitis 4. RACHELLE on CKD 5. DM 6. Morbid obesity 7. Elevated ammonia level 8. RV failure 9. Acute diastolic Congestive heart failure 10. Combined respiratory and metabolic acidosis, persistent Plan: -Plan to go home with hospice, likely D/C today -monitor respiratory status -noninvasive ventilation 18/6 qhs and prn with breaks for meals - IF AMENABLE -monitor volumes and renal function -lasix 20 mg IV to q12 while in house -Abx per ID -wean oxygen as tolerated -Should be DNAR as going home with hospice Subjective Allergies: Coded Allergies: ASPIRIN (Verified Allergy, Intermediate, Hives, 01/06/13) PENICILLINS (Verified Allergy, Intermediate, Hives, 01/06/13) Subjective MELISSA, transition to hospice Will be picked up this am Did not use BiPAP ON Stable O2 needs No distress Objective Last 24 Hour Vital Signs Date Time Temp Pulse Resp B/P (MAP) Pulse Ox O2 Delivery O2 Flow Rate FiO2 06/03/18 08:41 79 139/106 06/03/18 08:40 136/106 06/03/18 08:39 137/106 06/03/18 04:00 Nasal Cannula 3.0 06/03/18 04:00 3.0 06/03/18 04:00 97.1 75 24 138/76 (96) 98 06/03/18 03:36 76 06/03/18 00:18 73 19 99 Facial 30 06/03/18 00:00 98.0 85 23 136/81 (99) 100 06/03/18 00:00 Nasal Cannula 3.0 06/03/18 00:00 94 06/02/18 20:00 3.0 06/02/18 20:00 82 06/02/18 20:00 Nasal Cannula 3.0 06/02/18 20:00 97.5 88 24 132/92 (105) 98 06/02/18 19:29 96 Nasal Cannula 4.0 36 06/02/18 19:29 Nasal Cannula 4.0 36 2/6/19 17:53 88 142/98 06/02/18 17:52 142/98 06/02/18 16:00 88 06/02/18 16:00 Nasal Cannula 3.0 06/02/18 16:00 97.3 83 20 142/98 (113) 99 06/02/18 16:00 3.0 06/02/18 12:00 Nasal Cannula 3.0 06/02/18 12:00 97.7 85 18 135/78 (97) 98 06/02/18 12:00 3.0 06/02/18 12:00 84 06/02/18 10:01 150/89 06/02/18 10:00 72 150/89 06/02/18 09:59 150/89 Intake and Output 06/02/18 06/03/18 19:00 07:00 Intake Total 250 ml 395.0 ml Output Total 1550 ml 850 ml Balance -1300 ml -455.0 ml Intake Oral 250 ml 120 ml IV Total 275.0 ml Output Urine Total 1550 ml 850 ml # Bowel Movements 2 2 General Appearance: other - obese confused no distress HEENT: normocephalic, atraumatic, mucous membranes moist Respiratory/Chest: crackles/rales Cardiovascular: normal peripheral pulses, normal rate, regular rhythm Abdomen: normal bowel sounds, soft, non tender, no organomegaly, non distended , no mass Extremities: no cyanosis, no clubbing, other - Edema Laboratory Tests 06/03/18 02:55: White Blood Count 6.5, Red Blood Count 4.55, Hemoglobin 11.7L, Hematocrit 39.8, Mean Corpuscular Volume 87, Mean Corpuscular Hemoglobin 25.7L, Mean Corpuscular Hemoglobin Concent 29.3L, Red Cell Distribution Width 21.5H, Platelet Count 176 , Mean Platelet Volume 9.1, Neutrophils (%) (Auto) 77.2H, Lymphocytes (%) (Auto ) 13.7L, Monocytes (%) (Auto) 5.5, Eosinophils (%) (Auto) 1.6, Basophils (%) ( Auto) 1.9, Sodium Level 145, Potassium Level 4.4, Chloride Level 109H, Carbon Dioxide Level 33H, Anion Gap 3L, Blood Urea Nitrogen 9, Creatinine 1.0, Estimat Glomerular Filtration Rate > 60, Glucose Level 93, Calcium Level 8.7, Total Bilirubin 1.2H, Direct Bilirubin 0.6H, Aspartate Amino Transf (AST/SGOT) 43H, Alanine Aminotransferase (ALT/SGPT) 16, Alkaline Phosphatase 274H, Total Protein 6.8, Albumin 2.2L, Globulin 4.6, Albumin/Globulin Ratio 0.5L Current Medications Medications (Trade) Dose Ordered Sig/Toya Route PRN Reason Start Time Stop Time Status Last Admin Dose Admin Allopurinol (Allopurinol) 300 mg DAILY NG 05/31/18 09:00 06/18/18 12:59 06/03/18 08:39 Amlodipine Besylate (Norvasc) 2.5 mg BID ORAL 06/01/18 18:00 06/26/18 10:05 06/03/18 08:41 Ascorbic Acid (Vitamin C) 500 mg TWICE A DAY NG 05/31/18 09:00 06/15/18 17:59 06/03/18 08:39 Atorvastatin Calcium (Lipitor) 20 mg BEDTIME ORAL 05/31/18 21:00 06/13/18 20:59 06/02/18 21:23 Clopidogrel Bisulfate (Plavix) 75 mg DAILY ORAL 06/03/18 09:00 07/03/18 08:59 06/03/18 08:39 Dextrose (Dextrose 50%) 25 ml Q30M PRN IV Hypoglycemia 05/31/18 06:30 06/11/18 16:59 Dextrose (Dextrose 50%) 50 ml Q30M PRN IV Hypoglycemia 05/31/18 06:30 06/11/18 16:59 Furosemide (Lasix) 20 mg Q12HR IV 05/31/18 09:00 06/23/18 16:03 06/03/18 08:41 Haloperidol (Haldol) 5 mg Q6H PRN ORAL Agitation 06/02/18 12:45 07/02/18 12:44 Insulin Aspart (NovoLOG) AC+HS SUBQ 05/31/18 06:30 06/11/18 12:59 Lisinopril (Zestril) 5 mg BID ORAL 05/31/18 18:00 06/30/18 17:59 06/03/18 08:39 Multivitamins (Multivitamins) 1 tab DAILY ORAL 05/31/18 09:00 06/16/18 08:59 06/03/18 08:40 Nitroglycerin (Ntg) 1 patch Q24H TDERMAL 05/31/18 09:00 06/14/18 08:59 06/03/18 08:40 Pantoprazole (Protonix) 40 mg EVERY 12 HOURS ORAL 06/01/18 21:00 07/01/18 20:59 06/03/18 08:38 Potassium Chloride (K-Dur) 40 meq TWICE A DAY ORAL 06/01/18 11:38 07/01/18 11:37 06/03/18 08:39 Povidone Iodine (Betadine Gretchen) 1 applic BID TOPIC 05/31/18 09:00 06/15/18 08:59 06/03/18 08:44 Vancomycin HCl (Vanco rx to dose) 1 ea DAILY PRN MISC Per rx protocol 05/31/18 09:00 06/22/18 17:29 Vancomycin HCl/ Dextrose 275 ml @ 137.5 mls/ hr Q24H IVPB 06/01/18 02:00 06/04/18 01:59 06/03/18 01:34 Clifton Childress MD Jun 03, 2018 10:00
[2018-06-03] MEDS ORDERED: NORVASC2.5 MG ORAL (10:24)
[2018-06-03] MEDS ORDERED: HALDOL5 MG ORAL (10:24)
[2018-06-03] MEDS ORDERED: PLAVIX75 MG ORAL (10:24)
[2018-06-03] MEDS ORDERED: BACTRIM DS TAB1 EAC1 ORAL (10:24)
[2018-06-03] MEDS ORDERED: MULTIVITAMINS1 EAC2 ORAL (10:24)
[2018-06-03] MEDS ORDERED: PROTONIX40 MG ORAL (10:24)
[2018-06-03] MEDS ORDERED: ALLOPURINOL100 M1 NG (10:24)
[2018-06-03] MEDS ORDERED: FUROSEMIDE40 MG ORAL (10:24)
--- NOTE | 2018-06-03 10:26 | General Progress Note ---
Assessment/Plan Assessment/Plan S, O: status post self-Extubation, patient is drowsy today, limited following commands. Currently on BIPAP PRN , limited exam PHYSICAL EXAMINATION: HEAD AND NECK: Atraumatic and normocephalic. CHEST: Diffuse bronchial breathing sounds. Overall decreased breathing sounds. ABDOMEN: Grossly morbidly obese. Limited evaluation. MUSCULOSKELETAL: Positive for ulcers and wounds, more diffusely edematous about 2+, superficial wounds on both legs , dressed . NEUROLOGIC: The patient is less lethargic , limited follow commands . limited exam, Meds: Reviewed and reconciled. including Amlodipin 2.5 mg/daily CXR dated 05/28/18 : reviewed ASSESSMENT: 1.ALTERED MENTAL STATUS SECONDARY TO #2 2.Hypercapnic Vent Dependent Respiratory failure: S/P self-extubation, CURRENTLY ON BIPAP 2. shock, septic : Resolved 3. CHF exacerbation, right sided, preserved EF 3. Acute/Chronic Renal F 4. Abnormal Trop: NSTEMI vs Leakage 3. UTI/lower extremity infection Hypertension. 4. Diabetes type 2, controlled with A1c of 6.3. 5. Pain management. 6. PAH 7. 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 HyperNatremia 6. GI and DVT prophylaxis. 10. Full code PLAN OF CARE: Guarded prognosis Off pressor, preserved BP current - culture guided abx, per ID Will Followup with pulmonary for post - Self- extubation care, C/w lasix, will titrate according to BP patient and the Son advised fpc care at discharge, however insisting to go home, once medically stable I discussed the care with the Son, after his meeting with his mother. requested transfer to home with hospice care. ok to transition to home with hospice care Medication reconciliation completed I had a detailed conversation with the Son. Requesting Full code at this time. Subjective Allergies: Coded Allergies: ASPIRIN (Verified Allergy, Intermediate, Hives, 01/06/13) PENICILLINS (Verified Allergy, Intermediate, Hives, 01/06/13) Objective Last 24 Hour Vital Signs Date Time Temp Pulse Resp B/P (MAP) Pulse Ox O2 Delivery O2 Flow Rate FiO2 06/03/18 08:41 79 139/106 06/03/18 08:40 136/106 06/03/18 08:39 137/106 06/03/18 08:00 97.6 76 21 137/103 (114) 100 06/03/18 08:00 3.0 06/03/18 08:00 Nasal Cannula 3.0 06/03/18 07:19 85 06/03/18 04:00 Nasal Cannula 3.0 06/03/18 04:00 3.0 06/03/18 04:00 97.1 75 24 138/76 (96) 98 06/03/18 03:36 76 06/03/18 00:18 73 19 99 Facial 30 06/03/18 00:00 98.0 85 23 136/81 (99) 100 06/03/18 00:00 Nasal Cannula 3.0 06/03/18 00:00 94 06/02/18 20:00 3.0 06/02/18 20:00 82 06/02/18 20:00 Nasal Cannula 3.0 06/02/18 20:00 97.5 88 24 132/92 (105) 98 06/02/18 19:29 96 Nasal Cannula 4.0 36 06/02/18 19:29 Nasal Cannula 4.0 36 06/02/18 17:53 88 142/98 06/02/18 17:52 142/98 06/02/18 16:00 88 06/02/18 16:00 Nasal Cannula 3.0 06/02/18 16:00 97.3 83 20 142/98 (113) 99 06/02/18 16:00 3.0 06/02/18 12:00 Nasal Cannula 3.0 06/02/18 12:00 97.7 85 18 135/78 (97) 98 06/02/18 12:00 3.0 06/02/18 12:00 84 Intake and Output 06/02/18 06/03/18 19:00 07:00 Intake Total 250 ml 395.0 ml Output Total 1550 ml 850 ml Balance -1300 ml -455.0 ml Intake Oral 250 ml 120 ml IV Total 275.0 ml Output Urine Total 1550 ml 850 ml # Bowel Movements 2 2 Laboratory Tests 06/03/18 02:55: White Blood Count 6.5, Red Blood Count 4.55, Hemoglobin 11.7L, Hematocrit 39.8, Mean Corpuscular Volume 87, Mean Corpuscular Hemoglobin 25.7L, Mean Corpuscular Hemoglobin Concent 29.3L, Red Cell Distribution Width 21.5H, Platelet Count 176 , Mean Platelet Volume 9.1, Neutrophils (%) (Auto) 77.2H, Lymphocytes (%) (Auto ) 13.7L, Monocytes (%) (Auto) 5.5, Eosinophils (%) (Auto) 1.6, Basophils (%) ( Auto) 1.9, Sodium Level 145, Potassium Level 4.4, Chloride Level 109H, Carbon Dioxide Level 33H, Anion Gap 3L, Blood Urea Nitrogen 9, Creatinine 1.0, Estimat Glomerular Filtration Rate > 60, Glucose Level 93, Calcium Level 8.7, Total Bilirubin 1.2H, Direct Bilirubin 0.6H, Aspartate Amino Transf (AST/SGOT) 43H, Alanine Aminotransferase (ALT/SGPT) 16, Alkaline Phosphatase 274H, Total Protein 6.8, Albumin 2.2L, Globulin 4.6, Albumin/Globulin Ratio 0.5L Height (Feet): 5 Height (Inches): 3.00 Weight (Pounds): 310 Margaret Mckinney MD Jun 03, 2018 10:26
--- NOTE | 2018-06-03 11:37 | GI Progress Note ---
Assessment/Plan Problems: (1) DM (diabetes mellitus) ICD Codes: E11.9 - DM (diabetes mellitus) SNOMED: 73977064 (2) Intractable abdominal pain ICD Codes: R10.9 - Unspecified abdominal pain SNOMED: 52219109 (3) Elevated transaminase level ICD Codes: R74.0 - Nonspecific elevation of levels of transaminase and lactic acid dehydrogenase [LDH] SNOMED: 671379956 (4) Abdominal distension ICD Codes: R14.0 - Abdominal distension (gaseous) SNOMED: 90841615 (5) Liver disease ICD Codes: K76.9 - Liver disease, unspecified SNOMED: 346992209 (6) Acute encephalopathy ICD Codes: G93.40 - Encephalopathy, unspecified SNOMED: 80116654, 811405611 Status: unchanged Status Narrative Discussed with Dr. Paul Assessment/Plan OB stool negative x2 stable H&H generalized anasarca hepatitis panel negative abdominal US reviewed >> - Ascites - Borderline hepatomegaly - Thick-walled gallbladder, likely in part artifact of nondistention, and in part due to hemodynamic factors causing the ascites. No definite gallstones. Acute cholecystitis not completely excludable, due to the wall thickening, and hepatobiliary scan should be considered if there is high clinical suspicion for such. - Negative for dilated ducts - To and fro flow within the main portal vein, could indicate portal hypertension Pending hospice care on cardiac diet cont lactulose prn transfusions bowel regime ppi fu labs The patient was seen and examined at bedside and all new and available data was reviewed in the patients chart. I agree with the above findings, impression and plan. (Patient seen earlier today. Signature stamp does not reflect patient encounter time.). - Robert Paul MD Subjective Subjective denies abdominal pain tolerating diet Comfortable Objective Last 24 Hour Vital Signs Date Time Temp Pulse Resp B/P (MAP) Pulse Ox O2 Delivery O2 Flow Rate FiO2 06/03/18 08:41 79 139/106 06/03/18 08:40 136/106 06/03/18 08:39 137/106 06/03/18 08:00 97.6 76 21 137/103 (114) 100 06/03/18 08:00 3.0 06/03/18 08:00 Nasal Cannula 3.0 06/03/18 07:19 85 06/03/18 04:00 Nasal Cannula 3.0 06/03/18 04:00 3.0 06/03/18 04:00 97.1 75 24 138/76 (96) 98 06/03/18 03:36 76 06/03/18 00:18 73 19 99 Facial 30 06/03/18 00:00 98.0 85 23 136/81 (99) 100 06/03/18 00:00 Nasal Cannula 3.0 06/03/18 00:00 94 06/02/18 20:00 3.0 06/02/18 20:00 82 06/02/18 20:00 Nasal Cannula 3.0 06/02/18 20:00 97.5 88 24 132/92 (105) 98 06/02/18 19:29 96 Nasal Cannula 4.0 36 06/02/18 19:29 Nasal Cannula 4.0 36 06/02/18 17:53 88 142/98 06/02/18 17:52 142/98 06/02/18 16:00 88 06/02/18 16:00 Nasal Cannula 3.0 06/02/18 16:00 97.3 83 20 142/98 (113) 99 06/02/18 16:00 3.0 06/02/18 12:00 Nasal Cannula 3.0 06/02/18 12:00 97.7 85 18 135/78 (97) 98 06/02/18 12:00 3.0 06/02/18 12:00 84 Intake and Output 06/02/18 06/03/18 19:00 07:00 Intake Total 250 ml 395.0 ml Output Total 1550 ml 850 ml Balance -1300 ml -455.0 ml Intake Oral 250 ml 120 ml IV Total 275.0 ml Output Urine Total 1550 ml 850 ml # Bowel Movements 2 2 Laboratory Tests Test 06/03/18 02:55 White Blood Count 6.5 K/UL (4.8-10.8) Red Blood Count 4.55 M/UL (4.20-5.40) Hemoglobin 11.7 G/DL (12.0-16.0) L Hematocrit 39.8 % (37.0-47.0) Mean Corpuscular Volume 87 FL (80-99) Mean Corpuscular Hemoglobin 25.7 PG (27.0-31.0) L Mean Corpuscular Hemoglobin Concent 29.3 G/DL (32.0-36.0) L Red Cell Distribution Width 21.5 % (11.6-14.8) H Platelet Count 176 K/UL (150-450) Mean Platelet Volume 9.1 FL (6.5-10.1) Neutrophils (%) (Auto) 77.2 % (45.0-75.0) H Lymphocytes (%) (Auto) 13.7 % (20.0-45.0) L Monocytes (%) (Auto) 5.5 % (1.0-10.0) Eosinophils (%) (Auto) 1.6 % (0.0-3.0) Basophils (%) (Auto) 1.9 % (0.0-2.0) Sodium Level 145 MMOL/L (136-145) Potassium Level 4.4 MMOL/L (3.5-5.1) Chloride Level 109 MMOL/L (98-107) H Carbon Dioxide Level 33 MMOL/L (21-32) H Anion Gap 3 mmol/L (5-15) L Blood Urea Nitrogen 9 mg/dL (7-18) Creatinine 1.0 MG/DL (0.55-1.30) Estimat Glomerular Filtration Rate > 60 mL/min (>60) Glucose Level 93 MG/DL (74-106) Calcium Level 8.7 MG/DL (8.5-10.1) Total Bilirubin 1.2 MG/DL (0.2-1.0) H Direct Bilirubin 0.6 MG/DL (0.0-0.3) H Aspartate Amino Transf (AST/SGOT) 43 U/L (15-37) H Alanine Aminotransferase (ALT/SGPT) 16 U/L (12-78) Alkaline Phosphatase 274 U/L (46-116) H Total Protein 6.8 G/DL (6.4-8.2) Albumin 2.2 G/DL (3.4-5.0) L Globulin 4.6 g/dL Albumin/Globulin Ratio 0.5 (1.0-2.7) L Height (Feet): 5 Height (Inches): 3.00 Weight (Pounds): 310 General Appearance: WD/WN, no apparent distress, alert, morbidly obese Cardiovascular: normal rate Respiratory/Chest: normal breath sounds, no respiratory distress Abdominal Exam: normal bowel sounds, non tender, soft Extremities: non-tender Otilio Cohen NP Jun 03, 2018 11:37
[2018-06-03] MEDS ORDERED: NS 275ml ONE (13:19)
--- NOTE | 2018-06-03 13:20 | NUR ---
NURSE NOTES: REPORT AND BELONGINGS WAS GIVEN TO [facility]. VSS. PATIENT WHEELED OUT FROM ROOM.
--- NOTE | 2018-06-03 13:59 | General Progress Note ---
Assessment/Plan Problem List: (1) Metabolic encephalopathy ICD Codes: G93.41 - Metabolic encephalopathy SNOMED: [id number] Assessment/Plan Haldol prn is not sedating but would decrease agitation seroquel script was given to family Subjective Neurologic/Psychiatric: Reports: anxiety, depressed, emotional problems Allergies: Coded Allergies: ASPIRIN (Verified Allergy, Intermediate, Hives, 01/06/13) PENICILLINS (Verified Allergy, Intermediate, Hives, 01/06/13) Subjective the pt was agitated Objective Last 24 Hour Vital Signs Date Time Temp Pulse Resp B/P (MAP) Pulse Ox O2 Delivery O2 Flow Rate FiO2 06/03/18 11:54 74 06/03/18 08:41 79 139/106 06/03/18 08:40 136/106 06/03/18 08:39 137/106 06/03/18 08:00 97.6 76 21 137/103 (114) 100 06/03/18 08:00 3.0 06/03/18 08:00 Nasal Cannula 3.0 06/03/18 07:19 85 06/03/18 04:00 Nasal Cannula 3.0 06/03/18 04:00 3.0 06/03/18 04:00 97.1 75 24 138/76 (96) 98 06/03/18 03:36 76 06/03/18 00:18 73 19 99 Facial 30 06/03/18 00:00 98.0 85 23 136/81 (99) 100 06/03/18 00:00 Nasal Cannula 3.0 06/03/18 00:00 94 06/02/18 20:00 3.0 06/02/18 20:00 82 06/02/18 20:00 Nasal Cannula 3.0 06/02/18 20:00 97.5 88 24 132/92 (105) 98 06/02/18 19:29 96 Nasal Cannula 4.0 36 06/02/18 19:29 Nasal Cannula 4.0 36 06/02/18 17:53 88 142/98 06/02/18 17:52 142/98 06/02/18 16:00 88 06/02/18 16:00 Nasal Cannula 3.0 06/02/18 16:00 97.3 83 20 142/98 (113) 99 06/02/18 16:00 3.0 Intake and Output 06/02/18 06/03/18 19:00 07:00 Intake Total 250 ml 395.0 ml Output Total 1550 ml 850 ml Balance -1300 ml -455.0 ml Intake Oral 250 ml 120 ml IV Total 275.0 ml Output Urine Total 1550 ml 850 ml # Bowel Movements 2 2 Laboratory Tests 06/03/18 02:55: White Blood Count 6.5, Red Blood Count 4.55, Hemoglobin 11.7L, Hematocrit 39.8, Mean Corpuscular Volume 87, Mean Corpuscular Hemoglobin 25.7L, Mean Corpuscular Hemoglobin Concent 29.3L, Red Cell Distribution Width 21.5H, Platelet Count 176 , Mean Platelet Volume 9.1, Neutrophils (%) (Auto) 77.2H, Lymphocytes (%) (Auto ) 13.7L, Monocytes (%) (Auto) 5.5, Eosinophils (%) (Auto) 1.6, Basophils (%) ( Auto) 1.9, Sodium Level 145, Potassium Level 4.4, Chloride Level 109H, Carbon Dioxide Level 33H, Anion Gap 3L, Blood Urea Nitrogen 9, Creatinine 1.0, Estimat Glomerular Filtration Rate > 60, Glucose Level 93, Calcium Level 8.7, Total Bilirubin 1.2H, Direct Bilirubin 0.6H, Aspartate Amino Transf (AST/SGOT) 43H, Alanine Aminotransferase (ALT/SGPT) 16, Alkaline Phosphatase 274H, Total Protein 6.8, Albumin 2.2L, Globulin 4.6, Albumin/Globulin Ratio 0.5L Height (Feet): 5 Height (Inches): 3.00 Weight (Pounds): 310 General Appearance: confused, agitated Hannah Bradley MD Jun 03, 2018 13:59
--- NOTE | 2018-06-03 15:50 | Nephrology Progress Note ---
Assessment/Plan Problem List: (1) ARF (acute renal failure) (2) Cellulitis of both lower extremities (3) Venous stasis ulcers of both lower extremities (4) DM (diabetes mellitus) (5) CKD (chronic kidney disease) (6) Morbid (severe) obesity due to excess calories (7) Acute hypoxemic respiratory failure Assessment extubated on bipap as needed- Diabetic Nephropathy Cr lower acute renal failure super imposed on CKD Encephalopathy, CO2 retainer, respiratory failure acute Obesity High Trop High Bili UTI Bilateral LE cellulitis Anemia Plan Plan to Dc home with Hospice will sign off 24 h urine crcl 29 cc 24 h protein 0.6 gr 2D echo Ej Fx 55% kidney WESLEY no pathology reported Per ID , Pulm... Subjective ROS Limited/Unobtainable: No Interval Events/Complaints seen at 10 am Constitutional: Reports: malaise, weakness Subjective ALOC periodically Objective Objective Last 24 Hour Vital Signs Date Time Temp Pulse Resp B/P (MAP) Pulse Ox O2 Delivery O2 Flow Rate FiO2 06/03/18 11:54 74 06/03/18 08:41 79 139/106 06/03/18 08:40 136/106 06/03/18 08:39 137/106 06/03/18 08:00 97.6 76 21 137/103 (114) 100 06/03/18 08:00 3.0 06/03/18 08:00 Nasal Cannula 3.0 06/03/18 07:19 85 06/03/18 04:00 Nasal Cannula 3.0 06/03/18 04:00 3.0 06/03/18 04:00 97.1 75 24 138/76 (96) 98 06/03/18 03:36 76 06/03/18 00:18 73 19 99 Facial 30 06/03/18 00:00 98.0 85 23 136/81 (99) 100 06/03/18 00:00 Nasal Cannula 3.0 06/03/18 00:00 94 06/02/18 20:00 3.0 06/02/18 20:00 82 06/02/18 20:00 Nasal Cannula 3.0 06/02/18 20:00 97.5 88 24 132/92 (105) 98 06/02/18 19:29 96 Nasal Cannula 4.0 36 06/02/18 19:29 Nasal Cannula 4.0 36 06/02/18 17:53 88 142/98 06/02/18 17:52 142/98 06/02/18 16:00 88 06/02/18 16:00 Nasal Cannula 3.0 06/02/18 16:00 97.3 83 20 142/98 (113) 99 06/02/18 16:00 3.0 Intake and Output 06/02/18 06/03/18 19:00 07:00 Intake Total 250 ml 395.0 ml Output Total 1550 ml 850 ml Balance -1300 ml -455.0 ml Intake Oral 250 ml 120 ml IV Total 275.0 ml Output Urine Total 1550 ml 850 ml # Bowel Movements 2 2 Laboratory Tests 06/03/18 02:55: White Blood Count 6.5, Red Blood Count 4.55, Hemoglobin 11.7L, Hematocrit 39.8, Mean Corpuscular Volume 87, Mean Corpuscular Hemoglobin 25.7L, Mean Corpuscular Hemoglobin Concent 29.3L, Red Cell Distribution Width 21.5H, Platelet Count 176 , Mean Platelet Volume 9.1, Neutrophils (%) (Auto) 77.2H, Lymphocytes (%) (Auto ) 13.7L, Monocytes (%) (Auto) 5.5, Eosinophils (%) (Auto) 1.6, Basophils (%) ( Auto) 1.9, Sodium Level 145, Potassium Level 4.4, Chloride Level 109H, Carbon Dioxide Level 33H, Anion Gap 3L, Blood Urea Nitrogen 9, Creatinine 1.0, Estimat Glomerular Filtration Rate > 60, Glucose Level 93, Calcium Level 8.7, Total Bilirubin 1.2H, Direct Bilirubin 0.6H, Aspartate Amino Transf (AST/SGOT) 43H, Alanine Aminotransferase (ALT/SGPT) 16, Alkaline Phosphatase 274H, Total Protein 6.8, Albumin 2.2L, Globulin 4.6, Albumin/Globulin Ratio 0.5L Height (Feet): 5 Height (Inches): 3.00 Weight (Pounds): 310 General Appearance: no apparent distress Objective no changeno change Tr Strange MD Jun 03, 2018 15:50
--- NOTE | 2018-06-03 18:07 | Infectious Diseases Prog Note ---
Assessment/Plan Problems: (1) VAP (ventilator-associated pneumonia) Assessment & Plan: with coag negative staphylococcus and proteus mirabilis , was on aztreonam for two weeks , on vancomycin for two weeks . recommend aspiration precaution . EOT 06/09/18. may switch to oral penicillin to finish her course of treatment (2) Bacteremia due to Enterococcus Assessment & Plan: due to enterococcus faecalis suspect picc line related blood stream infection , PICC line was removed . continue vancomycin renally dosed as per pharmacy for two weeks TOTAL . EOT 06/09/18 (3) Bilateral lower leg cellulitis Assessment & Plan: wound culture grew klibsella oxytoca, and Sphingomonas paucimobilis , continue vancomycin empirically with local wounds care . refused bone scan , she is going on hospice care , D/W son (4) Nonhealing ulcer of left lower extremity Assessment & Plan: wound culture grew klebsiella oxytoca and Sphingomonas paucimobilis, now on aztreonam and vancomycin , continue local wound care and dressings change as per wound care service as per plastic surgery recommendations (5) CKD (chronic kidney disease) Assessment & Plan: avoid nephrotoxics , renally dosed antibiotics as per pharmacy (6) DM (diabetes mellitus) Assessment & Plan: recommend tight glycemic control to keep blood glucose between 100-140 (7) Acute encephalopathy Assessment & Plan: suspect metabolic with high ammonia level, continue lactulose as needed (8) Acute hypoxemic respiratory failure Assessment & Plan: due to the above , self extubated , now on NASAL CANULA , and BIPAP prn . pulmonary is following, going home with hospice Assessment/Plan time of stamp doesn't reflect time patient was seen Subjective Constitutional: Reports: no symptoms HEENT: Reports: no symptoms Respiratory: Reports: no symptoms Breasts: Reports: no symptoms Cardiovascular: Reports: no symptoms Gastrointestinal/Abdominal: Reports: no symptoms Genitourinary: Reports: no symptoms Neurologic: Reports: no symptoms Psychiatric: Reports: no symptoms Skin: Reports: no symptoms Endocrine: Reports: no symptoms Hematologic: Reports: no symptoms Musculoskeletal: Reports: no symptoms Allergies: Coded Allergies: ASPIRIN (Verified Allergy, Intermediate, Hives, 01/06/13) PENICILLINS (Verified Allergy, Intermediate, Hives, 01/06/13) Subjective she was comfortable, off BIPAP, and nasal canula , lying in bed, afebrile, denied any fever or chills. Objective Vital Signs Last 24 Hour Vital Signs Date Time Temp Pulse Resp B/P (MAP) Pulse Ox O2 Delivery O2 Flow Rate FiO2 06/03/18 11:54 74 06/03/18 08:41 79 139/106 06/03/18 08:40 136/106 06/03/18 08:39 137/106 06/03/18 08:00 97.6 76 21 137/103 (114) 100 06/03/18 08:00 3.0 06/03/18 08:00 Nasal Cannula 3.0 06/03/18 07:19 85 06/03/18 04:00 Nasal Cannula 3.0 06/03/18 04:00 3.0 06/03/18 04:00 97.1 75 24 138/76 (96) 98 06/03/18 03:36 76 06/03/18 00:18 73 19 99 Facial 30 06/03/18 00:00 98.0 85 23 136/81 (99) 100 06/03/18 00:00 Nasal Cannula 3.0 06/03/18 00:00 94 06/02/18 20:00 3.0 06/02/18 20:00 82 06/02/18 20:00 Nasal Cannula 3.0 06/02/18 20:00 97.5 88 24 132/92 (105) 98 06/02/18 19:29 96 Nasal Cannula 4.0 36 06/02/18 19:29 Nasal Cannula 4.0 36 Height (Feet): 5 Height (Inches): 3.00 Weight (Pounds): 310 General Appearance: WD/WN, no acute distress HEENT: normocephalic, atraumatic, anicteric, mucous membranes moist Respiratory/Chest: chest wall non-tender, lungs clear, no respiratory distress , no accessory muscle use, decreased breath sounds Cardiovascular: normal peripheral pulses, normal rate, regular rhythm, no gallop/murmur, no JVD Abdomen: normal bowel sounds, soft, non tender, no organomegaly, non distended , no mass, no scars Genitourinary: normal external genitalia Extremities: no cyanosis, no clubbing Skin: no rash, no lesions, ulcers Neurologic/Psychiatric: alert, responsive Lymphatic: no neck adenopathy, no groin adenopathy Musculoskeletal: normal muscle bulk, no effusion Laboratory Tests Test 2/7/19 02:55 White Blood Count 6.5 K/UL (4.8-10.8) Red Blood Count 4.55 M/UL (4.20-5.40) Hemoglobin 11.7 G/DL (12.0-16.0) L Hematocrit 39.8 % (37.0-47.0) Mean Corpuscular Volume 87 FL (80-99) Mean Corpuscular Hemoglobin 25.7 PG (27.0-31.0) L Mean Corpuscular Hemoglobin Concent 29.3 G/DL (32.0-36.0) L Red Cell Distribution Width 21.5 % (11.6-14.8) H Platelet Count 176 K/UL (150-450) Mean Platelet Volume 9.1 FL (6.5-10.1) Neutrophils (%) (Auto) 77.2 % (45.0-75.0) H Lymphocytes (%) (Auto) 13.7 % (20.0-45.0) L Monocytes (%) (Auto) 5.5 % (1.0-10.0) Eosinophils (%) (Auto) 1.6 % (0.0-3.0) Basophils (%) (Auto) 1.9 % (0.0-2.0) Sodium Level 145 MMOL/L (136-145) Potassium Level 4.4 MMOL/L (3.5-5.1) Chloride Level 109 MMOL/L (98-107) H Carbon Dioxide Level 33 MMOL/L (21-32) H Anion Gap 3 mmol/L (5-15) L Blood Urea Nitrogen 9 mg/dL (7-18) Creatinine 1.0 MG/DL (0.55-1.30) Estimat Glomerular Filtration Rate > 60 mL/min (>60) Glucose Level 93 MG/DL (74-106) Calcium Level 8.7 MG/DL (8.5-10.1) Total Bilirubin 1.2 MG/DL (0.2-1.0) H Direct Bilirubin 0.6 MG/DL (0.0-0.3) H Aspartate Amino Transf (AST/SGOT) 43 U/L (15-37) H Alanine Aminotransferase (ALT/SGPT) 16 U/L (12-78) Alkaline Phosphatase 274 U/L (46-116) H Total Protein 6.8 G/DL (6.4-8.2) Albumin 2.2 G/DL (3.4-5.0) L Globulin 4.6 g/dL Albumin/Globulin Ratio 0.5 (1.0-2.7) L Juice Wilkerson M.D. Jun 03, 2018 18:07
--- NOTE | 2018-06-04 15:20 | Discharge Summary ---
Discharge Summary Discharge Summary _ DATE OF ADMISSION: 05/12/2018 DATE OF DISCHARGE: 06/03/2018 DISCHARGED BY: Dr. Margaret Mckinney CONSULTANTS: Dr. Juice Barrera BRIEF HOSPITAL COURSE: Patient is a 67-year-old female, who is being seen at the outpatient wound center for chronic nonhealing left lower extremity ulcers. She had significant pain and increased swelling on the right leg with blister formation on the right anterior lower extremity and great toe started a week prior. She noticed increased pain and swelling to the right foot which extended all the way up to below the knee. She developed blisters on the right foot, mainly the big toe and the third toe. The blisters on the right anterior tibia was oozing with clear fluids. She denied any fever or chills. Pain was throbbing, 9 out of 10. She had difficulty moving the right leg. She was then advised to go to ED for further evaluation. She has past medical history significant for COPD, hypertension, diabetes mellitus, chronic kidney disease, pulmonary hypertension and morbid obesity. On evaluation at ED, blood work did not show any leukocytosis. Hemoglobin and creatinine were stable. Potassium was elevated at 5.4. BUN was 40. Creatinine was 3.1. Total bilirubin was 4.1, AST 136, alkaline phosphatase 283. EKG showed normal sinus rhythm with no acute ischemic changes. She was given Kayexalate. She was started on antibiotics. She was then admitted for evaluation of venous stasis ulcers of both lower extremity, cellulitis and renal failure. ID was consulted. She was started on clindamycin and aztreonam for empiric coverage. She was seen by plastic surgery and podiatry. She was recommended wound care. Left leg ulcers were unchanged and is stable. There was no need for debridement. Podiatry recommended vascular surgery evaluation as there was concern for arterial outflow on the right leg. Patient had absent popliteal and pedal pulses. Venous duplex of lower extremity was negative for DVT bilaterally. Arterial scan showed stenosis with Doppler tibial artery waveform analysis compatible with severe ischemia at rest. She was ordered to have MRI of the legs, however refused. CT of the extremities was ordered, however, unable to perform test due to patient's weight. On 05/13/2018, she was noted to be more altered. She was lethargic but arousable. She was transferred to [facility] due to acute change in mental status. Watch And Clock Repair Clerk was consulted. ABG was ordered. ABG showed respiratory acidosis , and CO2 retention. Troponin was noted to be elevated at 0.189. She was a started on BiPAP. Later that day, she continued to be less responsive. She was transferred to ICU for closer monitoring. The following day, ABG showed persistent respiratory acidosis despite being on BiPAP support. She was then orally intubated. While in ICU, she was noted to have episodes of hypotension. She was eventually started on IV pressors. PICC line was inserted to the left arm. Kidney function was worsening. LFTs were rising. Preparation Plant Supervisor was consulted. Patient has underlying chronic kidney disease and diabetic nephropathy. He presented with elevated creatinine levels. Renal function was monitored. Psychiatric evaluation was done. Patient was diagnosed with metabolic encephalopathy. Lexapro and Restoril were discontinued. Patient had elevated ammonia levels. GI was consulted. She was also with elevated LFTs. Patient was placed on lactulose and Xifaxan. She was given proton pump inhibitors. Hepatitis panel was checked. Emd Special Education Teacher was consulted. He was noted to have elevated troponin levels, BNP was also elevated. Patient was given diuretic therapy. Echocardiogram showed normal LV systolic function with normal intracardiac filling pressures.Patient had moderate LVH, severe right heart enlargement and right ventricular enlargement, severe tricuspid regurgitation with RVSP 45 mmHg consistent with moderate pulmonary hypertension, mild pulmonary regurgitation, grade 1 LV diastolic dysfunction, and dilated IVC at 3.9 cm with no physiologic collapse, implying RA pressure of approximately 15-20 mmHg. Patient had cor pulmonale with evidence of RA and RV dilatation and severe RV systolic dysfunction. Could be secondary to prior COPD. Sildenafil may not help in this setting. She was recommended to continue with amiodarone and anticoagulation with Eliquis for paroxysmal atrial fibrillation. Slight elevation in troponin could be due to RV strain or due to type II non-ST elevated PA. She was closely followed by vascular surgeon patient was recommended selective left leg angiography to assess for percutaneous limb revascularization when stable. Patient was eventually started on OGT feedings. Patient was not able to tolerate dobutamine drip. She was placed back on dopamine drip. On 05/18/2017, she was eventually taken off IV pressors. She was placed on midodrine. She was continued on pulmonary support on vent. She was eventually started on weaning process. Wound culture showed growth of Klebsiella oxytoca andSphingomonas paucimobilis. Ancef was switched to doxycycline, aztreonam was continued. On podiatry examination, early signs of gangrene was noted. Hepatitis panel was negative. Abdominal exam showed ascites with borderline hepatomegaly. Gallbladder was thick-walled, no definite gallstones, negative for dilated ducts. WBC was increasing. Blood culture was checked. Blood culture showed gram- positive cocci bacteremia. On 05/23/2018, she was started empirically on vancomycin. She was failing weaning trials. 24-hour creatinine clearance was 29, 24-hour protein was 600 mg. On 05/24/2018, patient self extubated. She was placed on post extubation protocol. She was placed on BiPAP support. Blood culture showed growth of Enterococcus faecalis. She was continued on vancomycin and aztreonam. She also underwent bedside local I&D of digits 2-4 of the right foot by Dr. Obregon. She was continued on high flow oxygen. She was started on diet. Strict aspiration precaution. Patient and son was advised of jail care upon discharge, however they insisted on going home. They requested for transfer to home with hospice care. She was weaned off oxygen as tolerated. She was saturating well on nasal cannula. She was eventually discharged home with hospice. 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 DISCHARGE MEDICATIONS: Refer to Discharge Medication List. DISCHARGE INSTRUCTIONS: Follow-up in a week. I have been assigned to complete a discharge summary on this account, I was not involved with the patient's management. Debra Yates NP Jun 04, 2018 15:20
== END 2018-06-03 13:20 | disposition hospice, home (50) | DRG 870 ==
LOC: EMR 13:20 → 4E 14:05 → EDBEDREQ 14:37 → 2W 05-13 12:03 → ICU 05-13 19:32 → 2W 05-31 06:11
PROC: 5A1955Z Respiratory Ventilation, Greater than 96 Consecutive Hours (ICD-10-PCS; principal; 2018-05-14)
PROC: 0BH17EZ Insertion of Endotracheal Airway into Trachea, Via Natural or Artificial Opening (ICD-10-PCS; principal; 2018-05-14)
PROC: B548ZZA Ultrasonography of Superior Vena Cava, Guidance (ICD-10-PCS; principal; 2018-05-14)
PROC: 02HV33Z Insertion of Infusion Device into Superior Vena Cava, Percutaneous Approach (ICD-10-PCS; principal; 2018-05-14)
PROC: 0H9MXZZ Drainage of Right Foot Skin, External Approach (ICD-10-PCS; 2018-05-24)
DX: A41.9 Sepsis, unspecified organism (principal); J96.01 Acute respiratory failure with hypoxia; G93.41 Metabolic encephalopathy; I50.31 Acute diastolic (congestive) heart failure; I21.A1 Myocardial infarction type 2; R65.21 Severe sepsis with septic shock; R57.0 Cardiogenic shock; J96.02 Acute respiratory failure with hypercapnia; L03.116 Cellulitis of left lower limb; I13.0 Hypertensive heart and chronic kidney disease with heart failure and stage 1 through stage 4 chronic kidney disease, or unspecified chronic kidney disease; Z68.43 Body mass index [BMI] 50.0-59.9, adult; L03.115 Cellulitis of right lower limb; J95.851 Ventilator associated pneumonia; N17.9 Acute kidney failure, unspecified; N39.0 Urinary tract infection, site not specified; I96 Gangrene, not elsewhere classified; E87.0 Hyperosmolality and hypernatremia; Z99.11 Dependence on respirator [ventilator] status; J44.9 Chronic obstructive pulmonary disease, unspecified; N18.9 Chronic kidney disease, unspecified; E66.01 Morbid (severe) obesity due to excess calories; E11.621 Type 2 diabetes mellitus with foot ulcer; E11.622 Type 2 diabetes mellitus with other skin ulcer; E11.21 Type 2 diabetes mellitus with diabetic nephropathy; E11.42 Type 2 diabetes mellitus with diabetic polyneuropathy; L97.519 Non-pressure chronic ulcer of other part of right foot with unspecified severity; E11.22 Type 2 diabetes mellitus with diabetic chronic kidney disease; I48.0 Paroxysmal atrial fibrillation; Z88.0 Allergy status to penicillin; D64.9 Anemia, unspecified; I27.81 Cor pulmonale (chronic); R74.0 Nonspecific elevation of levels of transaminase and lactic acid dehydrogenase [LDH]; R14.0 Abdominal distension (gaseous); K76.9 Liver disease, unspecified; K72.90 Hepatic failure, unspecified without coma
CPT/HCPCS: 36415; 36569; 36600; 71045; 74018; 76700; 76937; 80048; 80053; 80061; 80076; 80202; 81001; 81050; 82140; 82248; 82270; 82378; 82533; 82550; 82575; 82607; 82728; 82746; 82803; 82962; 82977; 83036; 83540; 83550; 83605; 83735; 83880; 84100; 84156; 84439; 84443; 84484; 84550; 85007; 85025; 85044; 85610; 85730; 86140; 86705; 86709; 86803; 87040; 87070; 87081; 87086; 87181; 87205; 87324; 87340; 89050; 93005; 93306; 93880; 93925; 93970; 94002; 94003; 94660; 94664; 94760; 96365; 96367; 96375; 99285; A4246; J1815; J3490; J8499; S0077